=== PATIENT | male | born 1950 | race Caucasian/White ===

== ENCOUNTER → 2016-04-29 | Outpatient (CLI) | payer OTHER, MEDICARE ==
[~2016-04-29] MED LIST: ACET500C12 PO; ASCO10003 PO; ASCO500T16 PO; ASPEC325 PO; ATOR-26 PO; BRIM0.2S OPB; CALC1TAB27 PO; CEPH500C2 PO; CHOL1000 PO; CLC150 PO; DORZ2SOL OPB; DVN80 PO; FRS/40 PO; LATA0.5S OP; NVLNI SC; NVLRPUC SQ; OMEP20CA9 PO; OXYC-57 PO; ROPI1TAB PO; ROSU40TA PO; SULF800T23 PO; [UNRECOGNIZED DRUG - CODE] OPB
[2016-04-29 18:30] LABS: HEMATOCRIT 40.7 % (42-52); MEAN CELL VOLUME 91.3 fL (80-100); MEAN CORPUSCULAR HEMOGLOBIN 32.1 pg (25-34); MEAN CORPUSCULAR HGB CONC 35.1 g/dl (32-36); PLATELET COUNT 180 K/uL (130-400); RED BLOOD COUNT 4.46 M/uL (4.7-6.1); WHITE BLOOD COUNT 6.85 K/uL (4.8-10.8)
[2016-04-29 18:47] LABS: BASO % 0.6 %; BASO ABS # 0.04 K/uL (0-0.2); COMPLETE YES; EOS % 1.9 %; IG% 0.3 %; LYMPH ABS # 1.37 K/uL (1.2-3.4); MONO % 7.9 %; NEUT % 69.3 %
[2016-04-29 18:48] LABS: URINE APPEARANCE CLEAR (CLEAR); URINE BILIRUBIN NEG (NEG); URINE COLOR YELLOW; URINE NITRITE NEG (NEG); URINE PH 6.5 (4.5-7.5); URINE SPECIFIC GRAVITY 1.015 (1.000-1.030); UROBILINOGEN NEG (NEG)
[2016-04-29 18:52] LABS: MANUAL MICROSCOPIC REQUIRED? NO; REVIEW REQ? NO
[2016-04-29 18:53] LABS: BLOOD UREA NITROGEN 23 mg/dl (7-18); BUN/CREATININE RATIO 20.5 (10-20); CARBON DIOXIDE 22 mmol/L (21-32); CHLORIDE 114 mmol/L (98-107); GLUCOSE 77 mg/dl (70-99); POTASSIUM 3.9 mmol/L (3.5-5.1); SODIUM 145 mmol/L (136-145)
--- NOTE | 2016-04-29 21:42 | DIAGNOSTIC IMAGING REPORT ---
CHEST 2 VIEWS ROUTINE CLINICAL HISTORY: Preoperative evaluation. COMPARISON STUDY: Chest radiograph March 24, 2016. FINDINGS: Median sternotomy wires are noted. Moderate cardiomegaly is unchanged. There is no evidence of pulmonary edema. No consolidation is present. There is no pneumothorax or pleural effusion. Mild S-shaped scoliosis is noted. IMPRESSION: 1. No acute cardiopulmonary findings. 2. Stable cardiomegaly. Electronically signed by: Camilo Block M.D. 04/29/2016 9:40 PM Dictated Date/Time: 04/29/2016 9:39 PM
== END | disposition home or self-care (01) ==
LOC: C.LAB 16:16
PROVIDERS: ATTEND Orthopaedic Surgery Orthopaedic Surgery of the Spine
DX: Z01.812 Encounter for preprocedural laboratory examination (principal); I51.7 Cardiomegaly

== ENCOUNTER → 2016-05-04 | Outpatient (CLI) | payer OTHER, MEDICARE ==
--- NOTE | 2016-05-04 09:37 | DIAGNOSTIC IMAGING REPORT ---
MRI OF THE LUMBAR SPINE WITHOUT CONTRAST CLINICAL HISTORY: Lumbar spine pain radiating into both lower extremities. COMPARISON STUDY: Lumbar spine CT April 20, 2013 and and MRI of the lumbar spine January 30, 2009. TECHNIQUE: Utilizing a 1.5 Destiney magnet and dedicated coil, multiplanar, multiecho imaging of the lumbar spine was performed without IV contrast. FINDINGS: For purposes of numbering on this exam, the L5-S1 disc space is assigned to axial image 23 of 26. Alignment of lumbar spine is anatomic. Vertebral body heights are maintained. There is no marrow replacement. The conus terminates at the upper L1 level. No intracanalicular mass or fluid collection is present. Paravertebral soft tissues are unremarkable. Postsurgical findings suggestive of a left hemilaminectomy at the L4-L5 level are noted. The disc fragment at the L3 level shown on exam of January 30, 2009 is no longer identified and has likely been resected. Post surgical findings at this level are noted. L1-2: There is minimal disc bulge and facet arthrosis. The central canal and neural foramen are patent. L2-3: There is mild disc bulge, ligamentous hypertrophy and facet arthrosis. There is minimal narrowing of the central canal and lateral recesses as well as the neural foramen. L3-4: There is disc bulge with ligamentous hypertrophy and facet arthrosis. There is mild narrowing of the central canal, lateral recesses and neural foramen which is similar to prior MRI. L4-5: Note is made of marked disc space narrowing. There is disc bulge with facet arthrosis. There is no residual central canal stenosis. Moderate to severe narrowing of the right neural foramen is noted in moderate narrowing of the left neural foramen is present. This is similar to prior MRI of January 30, 2009. L5-S1: The central canal and neural foramen are patent. IMPRESSION: 1. Status post left hemilaminectomy at L4-L5 and resection of disc fragment at the L3 level shown on prior MRI. No residual disc fragment. 2. Otherwise, no significant change in appearance of the lumbar spine. Mild multilevel central canal stenosis with moderate to severe right neural foraminal stenosis at L4-L5. 3. No compression fracture. Electronically signed by: Camilo Block M.D. 05/04/2016 9:35 AM Dictated Date/Time: 05/04/2016 9:28 AM
== END | disposition home or self-care (01) ==
LOC: C.MRI 08:28
PROVIDERS: ATTEND Orthopaedic Surgery Orthopaedic Surgery of the Spine
DX: M48.06 Spinal stenosis, lumbar region (principal); Z98.890 Other specified postprocedural states

== ENCOUNTER → 2016-05-06 | Outpatient (CLI) | payer OTHER, MEDICARE ==
[2016-05-06 13:47] LABS: HEMATOCRIT 39.8 % (42-52); MEAN CELL VOLUME 92.1 fL (80-100); MEAN CORPUSCULAR HEMOGLOBIN 32.2 pg (25-34); MEAN CORPUSCULAR HGB CONC 34.9 g/dl (32-36); MEAN PLATELET VOLUME 12.9 fL (7.4-10.4); PLATELET COUNT 181 K/uL (130-400); RED BLOOD COUNT 4.32 M/uL (4.7-6.1); WHITE BLOOD COUNT 7.58 K/uL (4.8-10.8)
[2016-05-06 14:12] LABS: BASO % 0.5 %; BASO ABS # 0.04 K/uL (0-0.2); COMPLETE YES; EOS % 1.3 %; IG% 0.1 %; LYMPH % 15.3 %; LYMPH ABS # 1.16 K/uL (1.2-3.4); MONO % 8.6 %; NEUT % 74.2 %
[2016-05-06 14:19] LABS: ALT/SGPT 32 U/L (12-78); AST/SGOT 15 U/L (15-37); BLOOD UREA NITROGEN 20 mg/dl (7-18); BUN/CREATININE RATIO 16.9 (10-20); CALCIUM 8.4 mg/dl (8.5-10.1); CARBON DIOXIDE 19 mmol/L (21-32); CHLORIDE 110 mmol/L (98-107); GLUCOSE 139 mg/dl (70-99); POTASSIUM 4.1 mmol/L (3.5-5.1); SODIUM 142 mmol/L (136-145)
[2016-05-06 14:24] LABS: ALKALINE PHOSPHATASE 122 U/L (45-117); CHOLESTEROL 126 mg/dl (0-200); CHOLESTEROL/HDL RATIO 3.7; HDL CHOLESTEROL 34 mg/dl; LDL CHOLESTEROL CALCULATED 66 mg/dl; TRIGLYCERIDES 132 mg/dl (0-150); VERY LOW DENSITY LIPOPROT CALC 26 mg/dl
[2016-05-06 14:43] LABS: ESTIMATED AVERAGE GLUCOSE 174 mg/dl; HA1C FLAG Normal (Normal)
== END | disposition home or self-care (01) ==
LOC: C.LAB 12:17
PROVIDERS: ATTEND Nurse Practitioner Adult Health
DX: I10 Essential (primary) hypertension (principal); Z13.220 Encounter for screening for lipoid disorders; E10.9 Type 1 diabetes mellitus without complications; G25.81 Restless legs syndrome

== ENCOUNTER 2016-05-21 09:20 | Inpatient (IN) | payer OTHER, MEDICARE ==
[2016-05-07 14:45] VITALS: BMI 34.0
[~2016-05-21] VITALS: Ht 177.8 cm; Wt 109.3 kg
[2016-05-21] VITALS (7 sets, daily range): BP systolic 122–165; BP diastolic 67–80; PULSE 51–61; TEMP 36.4–36.5; O2SAT 94–99; BMI 34.0
[~2016-05-21 09:20] MED LIST changes: -ASCO10003 PO; -ATOR-26 PO; -CALC1TAB27 PO; +CEFAZOLIN 2000 MG/60 ML D5W IV SCH; -CEPH500C2 PO; -CLC150 PO; +CeleBREX 200 MG CAP PO SCH; +LACTATED RINGER'S 1000ML 1,000 ML IV SCH; -LATA0.5S OP; -OXYC-57 PO; +PREGABALIN 75 MG CAP PO SCH; -SULF800T23 PO
[2016-05-21] MEDS ORDERED: ROCURONIUM BROMIDE 10 MG/ML 5 ML VIAL ONE (10:57)
[2016-05-21] MEDS ORDERED: GLYCOPYRROLATE INJ 0.2 MG/ML VIAL ONE (10:57)
[2016-05-21] MEDS ORDERED: ONDANSETRON INJ 2 MG/ML 2 ML VIAL ONE (10:57)
[2016-05-21] MEDS ORDERED: DEXAMETHASONE SOD INJ 4 MG/ML VIAL ONE (10:57)
[2016-05-21] MEDS ORDERED: FENTANYL CITRATE INJ 50 MCG/1 ML 2 ML VIAL ONE (10:57)
[2016-05-21] MEDS ORDERED: NEOSTIGMINE METHYLSULFATE 1 MG/ML 10ML VIAL ONE (10:57)
[2016-05-21] MEDS ORDERED: MIDAZOLAM HCL 1 MG/ML 2ML VIAL ONE (10:57)
[2016-05-21] MEDS ORDERED: PROPOFOL IV EMULSION 10 MG/ML 20 ML VIAL IV ONE (10:57)
[2016-05-21] MEDS ORDERED: LIDOCAINE HCL 2% 2 ML VIAL (20MG/ML) ONE (10:57)
--- NOTE | 2016-05-21 12:23 | History and Physical ---
History & Physical Date May 21, 2016. Chief Complaint LBP and bilateral leg pain History of Present Illness The patient is a 65 year old male with complaints of above for years who failed to have relief with PT or ESIs. Hx of lumbar decompression L3-5. Limited ability to walk or stand for long periods of time. Hx of BKA. no incont. MRI and xrays demonstrate scoliosis, disc space collapse, and recurrent stenosis. Past Medical/Surgical History Medical Problems: (1) CKD (chronic kidney disease) stage 3, GFR 30-59 ml/min (2) Diabetes mellitus type 2 in obese (3) Diabetic polyneuropathy (4) Diastolic heart failure (5) GERD (gastroesophageal reflux disease) (6) Heart disease(LVH, CABG 2011, LVEF 50-55%) (7) History of TIA (transient ischemic attack) (8) Hyperlipidemia Nec/Nos (9) Hypertension Nos (10) Impotence, organic (11) Infected hardware in left lower extremity (12) Mild obstructive sleep apnea (13) 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 (14) Restless leg syndrome Surgical Problems: (1) History of lumbar discectomy (2) History of tonsillectomy (3) S/P CABG (coronary artery bypass graft) Additional History Hepatic Disease: No Endocrine Disorder: No Kidney Disease: Yes Hypertension: Yes Heart Disease: Yes Bleeding Tendencies: No Infectious Diseases: No Allergies Coded Allergies: Quinolones (Verified Allergy, Mild, ITCHINESS, 05/21/16) Home Medications Scheduled Acetazolamide (Acetazolamide Er), 1 TAB PO BID Ascorbic Acid (Ascorbic Acid), 500 MG PO QAM Aspirin (Aspirin), 1 TAB PO QAM Brimonidine Tartrate-Timolol M (Combigan), 1 DROP OPB BID Cholecalciferol (Vitamin D3), 1,000 INTER.UNIT PO QAM Dorzolamide Hcl (Trusopt), 1 DROP OPB BID Furosemide (Lasix), 40 MG PO QAM Insulin Human NPH (Novolin N), 30 SC QPM Insulin Human NPH (Novolin N), 20 SC QAM Insulin Human Regular (Novolin R), 20 SQ TID Omeprazole (Prilosec), 20 MG PO QAM Ropinirole (Requip), 3 MG PO HS Rosuvastatin Calcium (Crestor), 40 MG PO HS Travoprost (Travoprost), 1 DROP OPB HS Valsartan (Diovan), 80 MG PO QAM Physical Examination Skin: warm/dry Eyes: normal inspection ENT: normal ENT inspection Head: normocephalic, atraumatic Neck: supple, trachea midline Respiratory/Chest: lungs clear, no respiratory distress Cardiovascular: regular rate, rhythm Back: normal inspection Extremities: normal inspection (L BKA), normal range of motion Neurologic/Psych: alert, normal reflexes, oriented x 3 Addiitonal Comments: stocking like numbness in LE's Diagnosis Lumbar scoliosis, recurrent spinal stenosis, and radicular pain Plan of Treatment revision decompression L3-5, PSF L2-5, deemed low to intermediate cardiac risk by cards.
[2016-05-21] MEDS ORDERED: BUPIVACAINE/EPINEPHRINE 0.5% MPF 1:200,000 30 ML VIAL ONE (12:30)
[2016-05-21] MEDS ORDERED: HEPARIN SOD (PORCINE) 1000 UNIT/ML 10 ML VIAL ONE (12:30)
[2016-05-21] MEDS ORDERED: THROMBIN FOR SOLN 20000 UNIT KIT ONE ×2 (12:30→13:34)
[2016-05-21] MEDS ORDERED: BACITRACIN 50000 UNIT VIAL ONE (12:30)
[2016-05-21] MEDS ORDERED: THROMBIN 5000 UNITS KIT ONE (12:30)
[2016-05-21] MEDS ORDERED: EpHEDrine SULFATE 50MG/5ML SYR ONE (12:39)
[2016-05-21] MEDS ORDERED: HYDROmorphone INJ 2 MG/ML SYR/VIAL ONE (13:28)
[2016-05-21] MEDS ORDERED: VANCOMYCIN INJ 1,000 MG in SODIUM CHLORIDE 0.9% 250ML 250 ML IV SCH (13:30)
[2016-05-21] MEDS ORDERED: ATROPINE SULFATE 0.1 MG/ML 5ML SYR IV PRN (13:45)
[2016-05-21] MEDS ORDERED: HYDROmorphone INJ 2 MG/ML SYR/VIAL IV PRN (13:45)
[2016-05-21] MEDS ORDERED: ONDANSETRON INJ 2 MG/ML 2 ML VIAL IV PRN ×2 (13:45→15:30)
[2016-05-21] MEDS ORDERED: LABETALOL HCL IV 5 MG/ML 20ML IV PRN (13:45)
[2016-05-21] MEDS ORDERED: SURGICEL ABSORB HEMOSTAT 2IN X 14IN TOP ONE (13:51)
[2016-05-21] MEDS ORDERED: SODIUM CHLORIDE 0.9% 1000ML 1,000 ML IV SCH ×2 (15:22→17:12)
--- NOTE | 2016-05-21 15:22 | [facility] Post Operative Brief Note ---
Immediate Operative Summary Operative Date May 21, 2016. Pre-Operative Diagnosis Lumbar scoliosis, recurrent spinal stenosis, and radicular pain Post-Operative Diagnosis Lumbar scoliosis, recurrent spinal stenosis, and radicular pain Procedure(s) Performed Same as preop Surgeon Dr. Gibson Turbine Technician Surgeon(s) Nasim Gomez PA-C Estimated Blood Loss 350cc Findings dict Specimens None per Surgeon
--- NOTE | 2016-05-21 15:23 | DIAGNOSTIC IMAGING REPORT ---
Lumbar spine LUMBAR SPINE 2 OR 3 VIEW CLINICAL HISTORY: L2-5 DECOMPRESSION/FUSION/INTERBODY TECHNIQUE: Image intensifier COMPARISON STUDY: None FINDINGS: Lumbar spine images of 4 intraoperative assistance during a lumbar laminectomy and fusion IMPRESSION: Lumbar laminectomy and fusion Electronically signed by: Anselmo Lawson M.D. 05/21/2016 3:22 PM Dictated Date/Time: 05/21/2016 3:21 PM
[2016-05-21] MEDS ORDERED: FLOSEAL HEMOSTATIC MATRIX 10ML TOP ONE (15:28)
[2016-05-21] MEDS ORDERED: LORAZEPAM 0.5 MG TAB PO PRN (15:30)
[2016-05-21] MEDS ORDERED: ALUMINUM/MAGNESIUM SUSP 30 ML UDC PO PRN (15:30)
[2016-05-21] MEDS ORDERED: BISACODYL 10 MG SUPP PR PRN (15:30)
[2016-05-21] MEDS ORDERED: LORAZEPAM INJ 0.5 MG in SYRINGE 0.75 ML IV PRN (15:30)
[2016-05-21] MEDS ORDERED: MAGNESIUM HYDROXIDE SUSP 30 ML UDC PO PRN (15:30)
[2016-05-21] MEDS ORDERED: FAMOTIDINE 20 MG TAB PO PRN (15:30)
[2016-05-21] MEDS ORDERED: NALOXONE HCL 0.4 MG/1 ML VIAL/CARP IV PRN (15:30)
[2016-05-21] MEDS ORDERED: ACETAMINOPHEN 500 MG TAB PO PRN (15:30)
[2016-05-21] MEDS ORDERED: SOD PHOSPHATE/SOD BIPHOSPHATE ENEMA 132 ML BTL PR PRN (15:30)
[2016-05-21] MEDS ORDERED: hydrOXYzine HCL 25 MG TAB PO PRN (15:30)
[2016-05-21] MEDS ORDERED: PROMETHAZINE HCL INJ 12.5 MG in SODIUM CHLORIDE 0.9% 50ML 50 ML IV PRN (15:30)
[2016-05-21] MEDS ORDERED: ACETAMINOPHEN IV 100 ML IV PRN (15:30)
[2016-05-21] MEDS ORDERED: METOCLOPRAMIDE HCL INJ 5 MG/ML 2 ML VIAL IV PRN (15:30)
[2016-05-21] MEDS ORDERED: OXYC-57 PO (15:35)
--- NOTE | 2016-05-21 15:36 | Discharge Instructions ---
Discharge Instructions Admission Reason for Admission: Lumbar Spinal Stenosis Discharge Discharge Diagnosis / Problem: Lumbar Stenosis Discharge Goals Goal(s): Decrease discomfort, Improve function, Increase independence Activity Recommendations Activity Limitations: as noted below Lifting Limitations: no more than 5 pounds Exercise/Sports Limitations: until after follow-up appointment May Resume Sexual Activity: after follow-up appointment Shower/Bathe: may shower/bathe in 3 days . Instructions / Follow-Up Instructions / Follow-Up ACTIVITY RECOMMENDATIONS: SELF CARE INSTRUCTIONS AFTER THORACIC/LUMBAR FUSIONS 1. You may walk to your tolerance. It is good exercise for your legs and back. Expect some back and intermittent leg aches and pains. 2. You may perform "counter-top" level activities (make a sandwich, shea with a project, etc.). 3. No bending or lifting of more than 10 pounds or back twisting of any nature (roll like a log when turning in bed). 4. You may ride in a car for 20-30 minutes at a time. No driving until after your first visit with your doctor. 5. Frequent changes of position and restricting sitting to 30 minutes at a time will help limit the amount of back spasms and stiffness you may experience. 6. You may discontinue the use of ambulatory aids (cane, crutches, etc.) once your strength and confidence allow. 7. You may skin drier the shower and let water strike your incision when you arrive home at least once daily. Do not take a tub bath, sit in a hot tub or go into a swimming pool until after your first recheck in the office. SPECIAL CARE INSTRUCTIONS: VERY IMPORTANT TO READ AND REVIEW A. Your surgical incision has been closed with a cosmetic suture under the skin that will dissolve in about 6 weeks. In 14 days, you can use a pair of clean scissors and cut the suture that is left outside of the skin at the ends of your incision. 1. The small skin tapes can be removed 7 days after surgery if they have not fallen off by that point. 2. You may keep the wound open to air as much as possible to promote healing after post-op day number 5 unless told otherwise by your doctor. 3. If you think the wound looks like it is becoming infected (redness or worsening drainage) and/or you are experiencing fever, chill or worsening back pain and muscle spasms, contact the office so that we may evaluate you as soon as possible. B. Complications are uncommon, but please contact us if you have any signs or symptoms of: 1. wound infection (fever higher than 102.5 degrees F, redness, separation of wound, drainage, or increasing pain from the incision) 2. blood clots in legs (pain, swelling, redness and warmth in legs) 3. urinary tract infection (fever higher than 102.5 degrees F, burning upon urination or increased frequency of urination) 4. nerve problems (inability to walk on your toes or heels, numbness, loss of bowel or bladder control) 5. any other symptoms that concern you C. Please call the office at if you have any concerns or questions about your operation or recovery. D. No smoking! Smoking drastically decreases the chance of a solid fusion. E. Do not take any anti-inflammatory medications (Indocin, Advil, Motrin, Aspirin, Naprosyn, etc.) as these may inhibit the chance of a solid fusion. Tylenol is okay to take for pain. MANAGING PAIN AFTER SPINAL SURGERY 1. Narcotic medication is intended for short-term use and will be provided for surgical pain. Surgical pain usually lasts for a period of 4-6 weeks. Narcotic medication includes Percocet, Vicodin, Darvocet, Tylenol #3 or Lortab. 2. Longer-term pain is more appropriately treated with non-narcotic medication such as Tylenol ES. 3. Muscle spasm is not appropriately treated with narcotics. Muscle relaxers such as Soma, Flexeril or Skelaxin can be used along with Tylenol ES. 4. Remember that we all live with some "aches and pains". This is not unusual or uncommon after an injury or as we get older. a. Back pain is expected and may include muscle spasms for 4 to 6 weeks after surgery. The pain should gradually improve. If the pain worsens for no apparent reason, please contact the office. b. Intermittent leg pain may also be experienced and should not be concerned about unless it worsens for no apparent reason. If so, please contact the office. 5. We will provide appropriate medication within the normal guidelines of their prescribed use. We will also be very cautious and aware of potential abuse and extended duration of patients' medication needs. a. Pain medications are for your comfort and to assist with sleep and rest so that the tissue can heal. They are not provided in order to return to normal activity and should not be used through the day. To do so or worsening pain at night can result from ongoing tissue damage and development of tolerance to the prescribed medicine. 6. Please allow 2-3 days to process refills. Prescriptions will not be mailed but must be picked up at the office. FOLLOW UP VISIT: Keep your scheduled follow-up appointment. Any questions, please call the office at . Current Hospital Diet Patient's current hospital diet: Discharge Diet Recommended Diet: Regular Diet Procedures Procedures Performed: Same as preop Pending Studies Studies pending at discharge: no Laboratory Results Hemoglobin A1c Test 05/06/16 12:20 Range/Units Estimated Average Glucose 174 mg/dl Hemoglobin A1c 7.7 H 4.5-5.6 % Lipid Panel Test 05/06/16 12:20 Range/Units Triglycerides Level 132 0-150 mg/dl Cholesterol Level 126 0-200 mg/dl HDL Cholesterol 34 mg/dl Cholesterol/HDL Ratio 3.7 LDL Cholesterol, Calculated 66 mg/dl Medical Emergencies . Who to Call and When: Medical Emergencies: If at any time you feel your situation is an emergency, please call 911 immediately. . Non-Emergent Contact Non-Emergency issues call your: Surgeon Call Non-Emergent contact if: temperature is above 101, your pain is not controlled, your pain is worsening, your pain is unusual for you, your pain is concerning you, wound has increased drainage, wound has increased redness, wound has increased pain, you have any medication questions . "Provider Documentation" section prepared by Wade Gomez. VTE Core Measure Inpt VTE Proph given/why not?: Aron Zhang
[2016-05-21] MEDS ORDERED: HYDROmorphone HCL 0.5MG/ML 50 ML CASSETTE ONE (15:51)
[2016-05-21] MEDS: HYDROmorphone HCL 0.5MG/ML 50 ML CASSETTE IV PRN ×2 (16:34→22:52)
--- NOTE | 2016-05-21 17:01 | OPERATIVE REPORT ---
DATE OF OPERATION: 05/21/2016 PREOPERATIVE DIAGNOSES: 1. Previous laminectomies at L3-L4 and L4-L5. 2. Lumbar disc degeneration, L2-L3, L3-L4, and L4-L5. 3. Lumbar degenerative scoliosis and multilevel facet arthrosis. POSTOPERATIVE DIAGNOSES: Same. PROCEDURES: 1. Revision laminectomy at L3 and L4 with right L3-L4 and L4-L5 facetectomies. 2. Segmental pedicle screw instrumentation -- bilateral L2, L3, left L4, and bilateral L5 with K2M Deshler pedicle screws. 3. Posterolateral fusion L2-L5 -- bilateral with Infuse BMP on a collagen sponge, tricalcium phosphate, local bone, bone putty and bone marrow aspirate. 4. Right iliac crest bone marrow aspiration, stem cell concentration with Arteriocyte system and application of bone graft. SURGEON: Dr. Gibson. EXERCISE SCIENTIST: Wade Gomez PA-C. Please note he participated in all portions of procedure and was critical for performance of the procedure, participated with positioning, prepping, draping, retraction, and wound closure. ANESTHESIA: General endotracheal anesthesia. COMPLICATIONS: None. ESTIMATED BLOOD LOSS: 350 mL. PROCEDURE IN DETAIL: After identification of patient and operative level, he was brought to the OR where he underwent induction of general anesthesia. He was then positioned prone on Joey OR table. All bony prominences were well padded. Care was taken to avoid pressure on the periorbital area. Lumbosacral area was sterilely prepped and draped in usual fashion. Antibiotics were administered. Time-out was performed. Level was confirmed and skin incision was infiltrated with Marcaine. I made skin incision from spinous process of L1-L5, exposed the posterior elements out to the tip of the transverse processes, placed Gelpi retractors and confirmed level with fluoroscopy. I marked the operative levels and identified the previous laminectomy beds and epidural adhesions. I did revision laminectomies of L3 and L4, I removed the facets on the right at L3-L4 and L4-L5 to facilitate foraminal decompression. I palpated the nerve roots that were decompressed at L3, L4, and L5 and then applied FloSeal for hemostasis. I then placed pedicle screws bilaterally at L3, L4, and L5 but only placing 1 on the left at L4. I checked position of screws with fluoroscopy and then lowered the Eyad frame to restore lordosis, applied rods and end caps for final tightening and a cross link which was final tightened. I irrigated with bacitracin solution. I had taken iliac crest bone marrow from the right iliac crest via separate stab incision with a Jamshidi needle, concentrated with Arterioctye, applied the bone graft indirect sales representative. I then packed the lateral gutters with bone graft mixture from L2-L5 bilaterally after decortication of the transverse processes and facets with a high speed bur from L2-L5. I then closed in layered fashion over LUIS drain. All sponge and needle counts were correct at the end of the case. I attest to the content of the Intraoperative Record and any orders documented therein. Any exceptio ns are noted below.
[2016-05-21] MEDS ORDERED: HYDROmorphone INJ 1 MG/ML SYR IV PRN (17:15)
--- NOTE | 2016-05-21 17:26 | Anesthesiology Progress Note ---
Anesthesia Post Op Note Date & Time May 21, 2016 at 17:25 Vital Signs Pain Intensity: 2 Vital Signs Past 12 Hours Date Time Temp Pulse Resp B/P Pulse Ox O2 Delivery O2 Flow Rate FiO2 05/21/16 16:15 59 16 153/72 94 Nasal Cannula 4 05/21/16 16:05 61 16 155/78 94 Nasal Cannula 4 05/21/16 15:55 72 16 168/81 100 Mask 10 05/21/16 15:43 36.4 61 16 180/81 100 Mask 10 05/21/16 10:06 36.5 51 20 147/69 99 Room Air Notes Mental Status: alert / awake / arousable, participated in evaluation Pt Amnestic to Procedure: Yes Nausea / Vomiting: adequately controlled Pain: adequately controlled Airway Patency, RR, SpO2: stable & adequate BP & HR: stable & adequate Hydration State: stable & adequate Anesthetic Complications: no major complications apparent
--- NOTE | 2016-05-21 19:10 | CONSULTATION REPORT ---
DATE OF CONSULTATION: 05/21/2016 DATE OF CONSULTATION: 05/21/2016. CHIEF COMPLAINT: Lower back pain and bilateral leg pain. We were consulted for medical management. HISTORY OF PRESENT ILLNESS: This is a 65-year-old male complains of lower back pain and bilateral leg pain for many years and failed outpatient conservative management. He had a history of lumbar decompression L3-L5, limited ability to walk and stand for long periods of times. MRI and x-rays demonstrated scoliosis and disc space collapse and recurrent stenosis. He was admitted for revision decompression of L3 through L5. Currently, he denies any complaints. REVIEW OF SYSTEMS: Negative except as above. Ten out of 14 systems were reviewed. PAST MEDICAL HISTORY: Significant for CKD stage III, diabetes mellitus type 2 on insulin, diabetic polyneuropathy, diastolic heart failure, GERD, heart disease LVH, CABG January 2012 quadruple bypass, left ventricular ejection fraction of 50-55%, history of TIA, hyperlipidemia, hypertension, impotence, infected hardware in the left lower extremity, mild obstructive sleep apnea, proliferative retinopathy due to diabetes, restless leg syndrome, history of lumbar discectomy, history of tonsillectomy, status post CABG. ALLERGIES: HE IS ALLERGIC TO QUINOLONES. SOCIAL HISTORY: Does not smoke, does not drink, does not use drugs. FAMILY HISTORY: Significant for coronary artery disease and cancer. HOME MEDICATIONS: Acetazolamide 1 tablet p.o. b.i.d., ascorbic acid 500 mg p.o. daily, aspirin 1 tablet p.o. daily, Combigan 1 drop ophthalmological b.i.d., cholecalciferol 1000 international units p.o. daily, dorzolamide 1 drop ophthalmological b.i.d., furosemide 40 mg p.o. daily, insulin NPH 20 units in the morning and 30 units at night, insulin regular Novolin 20 units subcutaneously t.i.d., omeprazole 20 mg p.o. daily, ropinirole 3 mg p.o. at bedtime, rosuvastatin 40 mg p.o. at bedtime, travoprost 1 drop ophthalmological at bedtime, valsartan 80 mg p.o. daily. PHYSICAL EXAMINATION: VITAL SIGNS: Temperature 36.6, pulse 59, respirations 16, blood pressure 153/72, 94% on 4 liters nasal cannula. GENERAL: Not in acute distress. HEAD, EYES, EARS, NOSE, AND THROAT: Normocephalic, atraumatic. PERRLA, EOMI. Mouth moist, no lesions. NECK: No JVD. Trachea midline. Thyroid is not enlarged. LUNGS: Clear to auscultation bilateral. No wheezes, no rhonchi. HEART: S1, S2. RRR. CHEST: There is a midline scar present in front. BACK: No CVA tenderness. EXTREMITIES: No clubbing, cyanosis or edema except for left BKA. Normal range of motion otherwise. NEUROLOGICAL: Alert, oriented x3. Motor sensory normal. LABORATORY DATA: He had a sugar done today, POC glucose 123-124, otherwise no labs. Lumbar spine x-ray showed lumbar laminectomy and fusion. ASSESSMENT AND PLAN: This is a 65-year-old gentleman with a past medical history of type 2 diabetes, CKD, coronary artery disease, status post CABG, hypertension, hyperlipidemia and TIA who was admitted for a revision decompression L3-L5. 1. Uncontrolled type 2 diabetes on insulin, start patient on insulin Glargine while he is here 20 units twice a day and provide with insulin sliding scale. His recent hemoglobin A1c was done and it was 7.7. We will start patient on sliding scale insulin aspart with goal range between 100-180 with correctional factor of 30 and carb ratio of 12. His CBC and BMP was ordered by orthopedic surgeon for tomorrow morning. 2. History of chronic kidney disease stage III, diastolic heart failure, coronary artery disease LVH, status post CABG in 2011. Ejection fraction 50-55%, TIA, hypertension, hyperlipidemia, moderate obstructive sleep apnea, restless legs syndrome. Continue acetazolamide 500 mg p.o. b.i.d., ascorbic acid 500 mg daily, aspirin 325 mg p.o. daily, furosemide 40 mg p.o. daily, hydroxyzine 25 mg p.o. q. 8 hours p.r.n. anxiety, pantoprazole 40 mg p.o. daily. 3. Neuropathy, Requip 3 mg p.o. at bedtime, Crestor 40 mg p.o. at bedtime, travoprost/Travatan Z 1 drop ophthalmological at bedtime, valsartan 80 mg p.o. daily. 4. Status post L3-L5 revision decompression. DVT prophylaxis, PT, OT evaluation and pain management as per spinal orthopedic surgeon. THE PATIENT IS A FULL CODE. Time spent doing this consult 35 minutes. Thank you for consulting our group. COURTNEY
[2016-05-21] MEDS: CEFAZOLIN IV 2,000 MG in DEXTROSE 5% 50ML 50 ML IV SCH (19:57)
[2016-05-21] MEDS: INSULIN ASPART 100 UNITS/ML 3 ML PEN SC SCH (20:45)
[2016-05-21] MEDS: INSULIN GLARGINE SOLOSTAR 100 UNITS/ML 3 ML PEN SC SCH (20:46)
[2016-05-21] MEDS: ROPINIROLE HCL 1 MG TAB PO SCH (20:47)
[2016-05-21] MEDS: ROSUVASTATIN CALCIUM 20 MG TAB PO SCH (20:47)
[2016-05-21] MEDS: DOCUSATE SODIUM/SENNA 50/8.6MG TAB PO SCH (20:48)
[2016-05-21] MEDS: TRAVOPROST Z 0.004% OPH SOLN 2.5 ML BTL OPB SCH (20:48)
[2016-05-21] MEDS: AcetaZOLAMIDE 500 MG CAPCR PO SCH (20:48)
[2016-05-22 03:39] VITALS: BP 161/71; PULSE 60; TEMP 36.6; O2SAT 99
[2016-05-22] MEDS: CEFAZOLIN IV 2,000 MG in DEXTROSE 5% 50ML 50 ML IV SCH (04:15)
[2016-05-22] MEDS ORDERED: NURSING VERBAL MED ORDER ONE (04:30)
[2016-05-22] MEDS ORDERED: HYDROmorphone INJ 1 MG/ML SYR IV PRN (06:00)
[2016-05-22] MEDS ORDERED: DC PCA ONE (06:00)
[2016-05-22] MEDS ORDERED: NALOXONE HCL 0.4 MG/1 ML VIAL/CARP IV PRN (06:01)
[2016-05-22 06:31] LABS: HEMATOCRIT 34.7 % (42-52); MEAN CELL VOLUME 92.3 fL (80-100); MEAN CORPUSCULAR HEMOGLOBIN 31.6 pg (25-34); MEAN CORPUSCULAR HGB CONC 34.3 g/dl (32-36); MEAN PLATELET VOLUME 12.9 fL (7.4-10.4); PLATELET COUNT 142 K/uL (130-400); RED BLOOD COUNT 3.76 M/uL (4.7-6.1); WHITE BLOOD COUNT 8.33 K/uL (4.8-10.8)
[2016-05-22 07:00] LABS: BASO % 0.4 %; BASO ABS # 0.03 K/uL (0-0.2); COMPLETE YES; EOS % 0.8 %; IG% 0.1 %; LYMPH % 6.7 %; LYMPH ABS # 0.56 K/uL (1.2-3.4); MONO % 9.4 %; NEUT % 82.6 %
[2016-05-22 07:04] LABS: BUN/CREATININE RATIO 17.7 (10-20); CREATININE 1.1 mg/dl (0.60-1.40); POTASSIUM 4.6 mmol/L (3.5-5.1)
[2016-05-22 07:14] VITALS: BP 148/64; PULSE 64; TEMP 36.8; O2SAT 98
[2016-05-22] MEDS ORDERED: COUGH DROP (SUGAR FREE) LOZ 24 LOZ/1 BOX ONE (07:21)
[2016-05-22] MEDS: OXYCODONE HCL IR 5 MG TAB (IMMEDIATE RELEASE) PO PRN ×3 (07:25→22:33)
--- NOTE | 2016-05-22 08:08 | Orthopedic Progress Note ---
Orthopedic Progress Note Date of Service May 22, 2016. Subjective Post OP Day: 1 Reports: feeling well, pain controlled w PO medications, Denies: SOB, calf pain , chest pain, complaints, light headedness, nausea / vomiting Additional Notes: Doing very well, sitting bedside, right buttock pain resolved. Medically stable. Objective Date Time Temp Pulse Resp B/P Pulse Ox O2 Delivery O2 Flow Rate FiO2 05/22/16 07:14 36.8 64 16 148/64 98 Room Air 05/22/16 03:39 36.6 60 18 161/71 99 05/21/16 23:53 36.4 58 18 165/80 99 Room Air 05/21/16 23:40 Room Air 05/21/16 20:00 Room Air 05/21/16 19:37 36.4 61 18 122/72 98 Room Air 05/21/16 18:35 36.4 61 18 134/73 95 Room Air 05/21/16 17:35 36.4 53 18 142/67 94 Room Air 05/21/16 17:05 36.4 57 18 155/68 94 Room Air 05/21/16 16:35 95 Nasal Cannula 2.0 05/21/16 16:35 36.4 59 17 159/78 95 Nasal Cannula 2.0 05/21/16 16:35 95 Nasal Cannula 2.0 05/21/16 16:15 59 16 153/72 94 Nasal Cannula 4 05/21/16 16:05 61 16 155/78 94 Nasal Cannula 4 05/21/16 15:55 72 16 168/81 100 Mask 10 05/21/16 15:43 36.4 61 16 180/81 100 Mask 10 05/21/16 10:06 36.5 51 20 147/69 99 Room Air Laboratory Results 24 Hours: Test 05/22/16 05:47 White Blood Count 8.33 K/uL Red Blood Count 3.76 M/uL Hemoglobin 11.9 g/dL Hematocrit 34.7 % Mean Corpuscular Volume 92.3 fL Mean Corpuscular Hemoglobin 31.6 pg Mean Corpuscular Hemoglobin Concent 34.3 g/dl Platelet Count 142 K/uL Mean Platelet Volume 12.9 fL Neutrophils (%) (Auto) 82.6 % Lymphocytes (%) (Auto) 6.7 % Monocytes (%) (Auto) 9.4 % Eosinophils (%) (Auto) 0.8 % Basophils (%) (Auto) 0.4 % Neutrophils # (Auto) 6.88 K/uL Lymphocytes # (Auto) 0.56 K/uL Monocytes # (Auto) 0.78 K/uL Eosinophils # (Auto) 0.07 K/uL Basophils # (Auto) 0.03 K/uL Assessment & Plan Assessment: s/p revision decompression and fusion Plan: Pain control in place and effective, PT today, LUIS in place and functioning, DVT/ GI prophylaxis, Disposition pending.
--- NOTE | 2016-05-22 09:10 | Clinical Documentation Query ---
AMADO Rowland : CLINICAL DOCUMENTATION QUERY Patient is a 65 year old male who underwent revision laminectomy at L3 and L4, L2-L5 posterolateral fusion with instrumentation and grafting. H&P, preoperative and postoperative notes mention degenerative lumbar scoliosis. If appropriate, please explicitly state whether or not this was corrected with the performed procedures and/or required extra time due to intrinsic difficulties. This directly impacts DRG assignment. Thank you. In your clinical opinion is this patient being managed for: ( ) Revision laminectomy, posterolateral fusion of L2-L5, correcting/and or complicated by scoliosis ( ) Other explanation of clinical findings (Please Explain) ( ) Unable to determine (Please Define) ( ) Need to Discuss ( ) Not Agree The medical record reflects the following clinical findings, treatment, and risk factors. Clinical Indicators: As above Treatment: As above Risk Factors: n/a Please clarify and document your clinical opinion in the progress notes and discharge summary. Terms such as "probable", "suspected", "likely", "questionable", "possible", or "still to be ruled out" are acceptable. IF IN AGREEMENT, YOU MUST DOCUMENT ABOVE DIAGNOSTIC STATEMENT IN DAILY PROGRESS NOTES AND DISCHARGE SUMMARY. This document is not part of the patient's record. Thank You, Junior Ayoub, RN [phone]
[2016-05-22] MEDS: CHOLECALCIFEROL 1000 INTER.UNIT TAB PO SCH (09:26)
[2016-05-22] MEDS: FUROSEMIDE 40 MG TAB PO SCH (09:26)
[2016-05-22] MEDS: ASCORBIC ACID 500 MG TAB PO SCH (09:26)
[2016-05-22] MEDS: PANTOprazole SOD 40 MG TAB PO SCH (09:26)
[2016-05-22] MEDS: AcetaZOLAMIDE 500 MG CAPCR PO SCH ×2 (09:26→21:09)
[2016-05-22] MEDS: ASPIRIN 325 MG ECTAB PO SCH (09:26)
[2016-05-22] MEDS: VALSARTAN 80 MG TAB PO SCH (09:27)
[2016-05-22] MEDS: INSULIN GLARGINE SOLOSTAR 100 UNITS/ML 3 ML PEN SC SCH ×2 (09:29→21:05)
[2016-05-22] MEDS: INSULIN ASPART 100 UNITS/ML 3 ML PEN SC SCH ×4 (09:29→21:06)
[2016-05-22 12:16] VITALS: BP 138/73; PULSE 68; TEMP 36.6; O2SAT 98
[2016-05-22 14:41] VITALS: Ht 177.8 cm; Wt 109.3 kg
[2016-05-22] MEDS ORDERED: POLYETHYLENE (MIRALAX) 17 GM PACK PO ONE (15:30)
[2016-05-22 16:13] VITALS: BP 137/65; PULSE 72; TEMP 36.8; O2SAT 97
[2016-05-22 20:11] VITALS: BP 168/73; PULSE 74; TEMP 36.8; O2SAT 99
--- NOTE | 2016-05-22 20:16 | Progress Note ---
Subjective Date of Service: May 22, 2016. Subjective Pt evaluation today including: conversation w/ patient, physical exam, chart review, lab review Pain: back - mild PO Intake: normal Voiding: no voiding problems patient with mild abdominal bloating but denies nausea or emesis minimal flatus and no bowel movement since the surgery he requests something for constipation denies sob, orthopnea, chest pain states he is on N & R insulin due to not being able to afford new insulins ( lantus, novolog, etc) Problem List Medical Problems: (1) Altered mental status Status: Acute (2) Cellulitis Status: Acute (3) Orthostasis Status: Acute (4) Postoperative wound infection Status: Acute (5) Syncope Status: Acute Review of Systems Constitutional: No chills, No fever Respiratory: No cough, No dyspnea on exertion, No shortness of breath Cardiac: No PND, No chest pain, No orthopnea Abdomen: No pain Objective Vital Signs Date Time Temp Pulse Resp B/P Pulse Ox O2 Delivery O2 Flow Rate FiO2 05/22/16 19:30 Room Air 05/22/16 16:13 36.8 72 18 137/65 97 Room Air 05/22/16 12:16 36.6 68 16 138/73 98 Room Air 05/22/16 08:23 Room Air 05/22/16 07:14 36.8 64 16 148/64 98 Room Air 05/22/16 03:39 36.6 60 18 161/71 99 05/21/16 23:53 36.4 58 18 165/80 99 Room Air 05/21/16 23:40 Room Air Physical Exam General Appearance: no apparent distress ENT: pharynx normal Neck: no JVD Respiratory/Chest: lungs clear, no respiratory distress, no accessory muscle use Cardiovascular: regular rate, rhythm, no gallop, + systolic murmur (2/6 LUSB) Abdomen: normal bowel sounds, non tender, no organomegaly, + distended ( minimal ) Extremities: no pedal edema Neurologic/Psychiatric: alert, oriented x 3 Skin: + pertinent finding (dressings intact lumbar spine area ) Laboratory Results Last 24 Hours Test 05/21/16 20:39 05/22/16 05:47 05/22/16 07:50 05/22/16 12:09 Bedside Glucose 213 mg/dl 221 mg/dl 306 mg/dl White Blood Count 8.33 K/uL Red Blood Count 3.76 M/uL Hemoglobin 11.9 g/dL Hematocrit 34.7 % Mean Corpuscular Volume 92.3 fL Mean Corpuscular Hemoglobin 31.6 pg Mean Corpuscular Hemoglobin Concent 34.3 g/dl Platelet Count 142 K/uL Mean Platelet Volume 12.9 fL Neutrophils (%) (Auto) 82.6 % Lymphocytes (%) (Auto) 6.7 % Monocytes (%) (Auto) 9.4 % Eosinophils (%) (Auto) 0.8 % Basophils (%) (Auto) 0.4 % Neutrophils # (Auto) 6.88 K/uL Lymphocytes # (Auto) 0.56 K/uL Monocytes # (Auto) 0.78 K/uL Eosinophils # (Auto) 0.07 K/uL Basophils # (Auto) 0.03 K/uL RDW Standard Deviation 45.6 fL RDW Coefficient of Variation 13.6 % Immature Granulocyte % (Auto) 0.1 % Immature Granulocyte # (Auto) 0.01 K/uL Sodium Level 141 mmol/L Potassium Level 4.6 mmol/L Chloride Level 111 mmol/L Carbon Dioxide Level 23 mmol/L Anion Gap 7.0 mmol/L Blood Urea Nitrogen 19 mg/dl Creatinine 1.10 mg/dl Est Creatinine Clear Calc Drug Dose 80.7 ml/min Estimated GFR () 80.1 Estimated GFR (Non- 69.1 BUN/Creatinine Ratio 17.7 Random Glucose 231 mg/dl Calcium Level 8.0 mg/dl Test 05/22/16 17:08 Bedside Glucose 261 mg/dl Assessment and Plan 65yo male with: 1. uncontrolled T2DM - 2nd to stress of surgery, steroids given on 05/21, etc. Increase lantus to 25 units BID. Adjust correction factor & carb ration on novolog. 2. constipation - need to follow carefully for ileus. Add miralax. Agree with stimulant laxative as well. 3. chronic diastolic CHF - compensated; cont ARB, lasix. Not on BB - unsure why. 4. CKD stage 3 - creatinine stable. 5. CAD s/p CABG in the past - no ischemic symptoms at this time. Cont asa, statin, etc. 6. h/o TIA - noted. Aspirin has already been resumed for secondary prevention. 7. GERD - PPI. 8. RLS - cont requip. 9. mild thrombocytopenia - repeat level am. will follow Continued [facility] stay due to: other (hyperglycemia)
[2016-05-22] MEDS: ROPINIROLE HCL 1 MG TAB PO SCH (21:08)
[2016-05-22] MEDS: DOCUSATE SODIUM/SENNA 50/8.6MG TAB PO SCH (21:09)
[2016-05-22] MEDS: ROSUVASTATIN CALCIUM 20 MG TAB PO SCH (21:10)
[2016-05-22] MEDS: TRAVOPROST Z 0.004% OPH SOLN 2.5 ML BTL OPB SCH (21:10)
[2016-05-22 23:45] VITALS: BP 136/68; PULSE 78; TEMP 37.1; O2SAT 99
[2016-05-23] MEDS: OXYCODONE HCL IR 5 MG TAB (IMMEDIATE RELEASE) PO PRN ×2 (03:24→13:42)
[2016-05-23] MEDS: POLYETHYLENE (MIRALAX) 17 GM PACK PO SCH ×2 (05:19→12:42)
[2016-05-23 06:04] LABS: HEMATOCRIT 31.4 % (42-52); MEAN CELL VOLUME 92.1 fL (80-100); MEAN CORPUSCULAR HEMOGLOBIN 31.7 pg (25-34); MEAN CORPUSCULAR HGB CONC 34.4 g/dl (32-36); MEAN PLATELET VOLUME 12.7 fL (7.4-10.4); PLATELET COUNT 174 K/uL (130-400); RED BLOOD COUNT 3.41 M/uL (4.7-6.1); WHITE BLOOD COUNT 9.45 K/uL (4.8-10.8)
[2016-05-23 06:53] LABS: BUN/CREATININE RATIO 19.3 (10-20); CALCIUM 8.3 mg/dl (8.5-10.1); CREATININE 1.4 mg/dl (0.60-1.40); POTASSIUM 3.8 mmol/L (3.5-5.1)
[2016-05-23 07:05] VITALS: O2SAT 99
[2016-05-23 08:21] VITALS: BP 138/75; PULSE 64; TEMP 37.1; O2SAT 97
[2016-05-23] MEDS: ASPIRIN 325 MG ECTAB PO SCH (08:43)
[2016-05-23] MEDS: AcetaZOLAMIDE 500 MG CAPCR PO SCH (08:43)
[2016-05-23] MEDS: FUROSEMIDE 40 MG TAB PO SCH (08:43)
[2016-05-23] MEDS: CHOLECALCIFEROL 1000 INTER.UNIT TAB PO SCH (08:43)
[2016-05-23] MEDS: ASCORBIC ACID 500 MG TAB PO SCH (08:43)
[2016-05-23] MEDS: VALSARTAN 80 MG TAB PO SCH (08:43)
[2016-05-23] MEDS: PANTOprazole SOD 40 MG TAB PO SCH (08:44)
[2016-05-23] MEDS: INSULIN GLARGINE SOLOSTAR 100 UNITS/ML 3 ML PEN SC SCH (08:51)
[2016-05-23] MEDS: INSULIN ASPART 100 UNITS/ML 3 ML PEN SC SCH ×2 (08:51→12:48)
--- NOTE | 2016-05-23 09:54 | PROGRESS NOTE ---
DATE: 05/23/2016 HISTORY OF PRESENT ILLNESS: Mr. Em is a very pleasant 65-year-old white male with longstanding hypertension, dyslipidemia, diabetes mellitus with multiple complications, cerebral vascular disease, PAD status post left BKA Easter 2015, severe concentric LVH with diastolic CHF, and CAD status post CABG x4 vessels 2011 (ZURITA to LAD, SVG to PDA, and sequential SVG from OM to diagonal), who underwent redo lumbar spinal decompression and fusion with Dr. Gibson on 05/21/2016. The patient was given an injection of corticosteroids that same day and subsequently his blood sugars have become uncontrolled. The patient is otherwise doing well. His surgical pain is well controlled. He denies any chest pain, heaviness, tightness, pressure or angina pectoris. He denies any neck, jaw, back or arm pain. He has not had any shortness of breath, unusual dyspnea on exertion, orthopnea or PND. No palpitations, syncope or near syncope. The patient has been up and ambulating in the hallways and has had significant reduction in his radicular pain. He has not experienced any limiting cardiopulmonary symptoms with exertion in the hallways. I saw the patient preoperative cardiac evaluation on 05/15/2016. We did an echocardiogram that day which showed an LVEF of 50-55%, moderate concentric LVH, mild MR, trace to mild TR. PHYSICAL EXAMINATION: VITAL SIGNS: Temperature is 37.1 degrees Celsius, pulse 64 and regular, respiratory rate 12 and unlabored, blood pressure is 138/75, SpO2 is 97% on room air. GENERAL: The patient is in no acute distress. HEENT: Head is atraumatic, normocephalic. EOMs intact. Sclerae are anicteric. Facies symmetric. No perioral cyanosis. Mucous membranes moist. NECK: Without thyromegaly, adenopathy or JVD. Jugular venous pressure is to the level of the clavicle sitting upright. CHEST AND LUNGS: Clear to auscultation throughout all lung sterling. No wheezes, rales or rhonchi. CARDIOVASCULAR: S1 and S2 are regular with a grade 1/6 systolic murmur at the left sternal border. No diastolic murmurs. No gallops or rubs. PMI is nondisplaced. No lifts, heaves or thrills. No abdominal, aortic or renal bruits. ABDOMEN: Bowel sounds present. No masses, organomegaly or tenderness. EXTREMITIES: No clubbing, cyanosis or edema. Left leg is surgically absent, left leg prosthesis is in place. Intact radial pulses bilaterally. NEUROLOGIC: The patient is awake, alert and oriented. Pleasant and cooperative. Answers questions appropriately. Speech is clear. Normal movement in bilateral upper extremities. LABORATORIES: White blood cell count is 9.45. Hemoglobin 10.8 g/dL, hematocrit 31.4%, platelet count 174,000. Sodium is 139 mmol/L, potassium is 3.8 mmol/L, BUN 27 mg/dL, creatinine 1.40 mg/dL. Random glucose is 267 mg/dL. ASSESSMENT: 1. Postoperative day #2 lumbar spinal redo decompression and fusion. 2. Type 2 diabetes mellitus with multiple diabetic complications. 3. Blood sugars currently not controlled. Likely exacerbated by recent corticosteroid injection. 4. Coronary artery disease, status post coronary artery bypass graft x4 vessels 2011. 5. Normal LVEF 50-55%. 6. Moderate concentric left ventricular hypertrophy with diastolic dysfunction. 7. Chronic kidney disease. 8. Gastroesophageal reflux disease. 9. History of transient ischemic attack. 10. Mild obstructive sleep apnea. 11. Hypertension. 12. Dyslipidemia. PLAN: 1. The patient continues to recover from his surgery. Overall, he is doing quite well. 2. Increase Lantus insulin to 30 units subcutaneous injection b.i.d. 3. Increase NovoLog sliding scale. Target range 120-160 mg/dL with correction factor of 20 mg/dL per unit. Continue carbohydrate ratio as is. 4. Continue Aspirin daily. 5. Continue high-dose statin medication. 6. Continue Diovan 80 mg each morning. 7. Continue Lasix 40 mg daily. 8. Continue Protonix for prophylactic GI protection. 9. Continue to monitor daily laboratories and close monitoring of blood sugars. 10. Once the patient is medically stable, he will be discharged to home with outpatient physical therapy. 11. We will continue to follow along while hospitalized. COURTNEY
[2016-05-23 10:21] VITALS: BP 116/58; PULSE 62
--- NOTE | 2016-05-23 11:13 | Orthopedic Progress Note ---
Orthopedic Progress Note Date of Service May 23, 2016. Subjective Post OP Day: 2 Reports: feeling well, pain controlled w PO medications, Denies: SOB, calf pain , chest pain, complaints, light headedness, nausea / vomiting, using PERIODONTIST Objective N/V intact, dressing C/D/I, A&O x3, hemovac drainage Date Time Temp Pulse Resp B/P Pulse Ox O2 Delivery O2 Flow Rate FiO2 05/23/16 08:21 37.1 64 12 138/75 97 Room Air 05/23/16 07:05 99 Room Air 05/22/16 23:45 37.1 78 16 136/68 99 Room Air 05/22/16 20:11 36.8 74 16 168/73 99 Room Air 05/22/16 19:30 Room Air 05/22/16 16:13 36.8 72 18 137/65 97 Room Air 05/22/16 12:16 36.6 68 16 138/73 98 Room Air Laboratory Results 24 Hours: Test 05/23/16 05:23 Hematocrit 31.4 % Hemoglobin 10.8 g/dL Assessment & Plan Assessment: s/p revision decompression and fusion Plan: Pain control in place and effective, LUIS in place and functioning, d/c tomorrow?
[2016-05-23 11:29] VITALS: BP 138/75; PULSE 64; TEMP 37.1; O2SAT 97
[2016-05-23 11:35] VITALS: O2SAT 97
[2016-05-23 12:40] VITALS: BP 123/69; PULSE 62; TEMP 36.7; O2SAT 96
[2016-05-23] MEDS ORDERED: INSULIN GLARGINE SOLOSTAR 100 UNITS/ML 3 ML PEN SC SCH (21:00)
--- NOTE | 2016-06-04 13:46 | DISCHARGE SUMMARY ---
PRINCIPAL DIAGNOSIS: Included previous laminectomies of L3-L4, L4-L5, disc degeneration L2-L3, L3-L4 and L4-L5, degenerative scoliosis and facet arthrosis. POSTOPERATIVE DIAGNOSIS: Same. PROCEDURE: Revision laminectomy of L3-L4 with right L3-L4 and L4-L5 facetectomies, pedicle screw instrumentations L2, L3, L4, L5, posterolateral fusion L2-5, right iliac crest bone marrow aspiration and stem cell concentration. SURGEON: Dr. Ned Gibson. CROP ROLLER: Wade Gomez PA-C. HOSPITAL COURSE: On 05/21/2016 Mr. Em was admitted to [facility] with the above diagnosis. He was taken to preoperative holding where he was identified and evaluated and cleared for surgical management. He was transported to the operating room, introduced with general endotracheal anesthesia, sterile conditions were set and he successfully underwent the above procedure without complication or issue. He was awakened in stable and satisfactory condition and transported to postoperative recovery where vital signs and pain were monitored and managed. The patient remained medically stable with no issues or postoperative complications. He was then transported to the orthopedic floor for continued care. Throughout his admission, his vital signs and pain were monitored and managed through physician direction. He participated in physical therapy with good noted progress. DVT and GI prophylactic measures were taken. To note there were no complications or postoperative issues. He was evaluated on the morning of 05/23/2016 and indicated for return home. On this date he was discharged from [facility]. DISPOSITION: Home. DISPOSITION CONDITION: Stable. NOTED COMPLICATIONS OR ISSUES: Zero. DISCHARGE INSTRUCTIONS: Please refer to EMR.
[2016-09-11] MEDS ORDERED: ASCO10003 PO (11:28)
[2016-09-11] MEDS ORDERED: CALC1TAB27 PO (11:28)
[2016-10-09] MEDS ORDERED: CEPH500C2 PO (13:30)
== END 2016-05-23 15:15 | disposition home health service (06) | DRG 460 ==
LOC: ENRESERVTM → ENRESERVDT → C.ACU 09:20 → C.3E 12:00 → UNDOADMIN 15:26
PROVIDERS: ADMIT Orthopaedic Surgery Orthopaedic Surgery of the Spine; ATTEND Orthopaedic Surgery Orthopaedic Surgery of the Spine
PROC: 01NB0ZZ Release Lumbar Nerve, Open Approach (ICD-10-PCS; principal; 2016-05-21 11:00)
PROC: 07DR3ZZ Extraction of Iliac Bone Marrow, Percutaneous Approach (ICD-10-PCS; principal; 2016-05-21 11:00)
PROC: 3E0U0GB Introduction of Recombinant Bone Morphogenetic Protein into Joints, Open Approach (ICD-10-PCS; principal; 2016-05-21 11:00)
PROC: 0SG10Z1 (ICD-10-PCS; principal; 2016-05-21 11:00)
DX: M51.16 Intervertebral disc disorders with radiculopathy, lumbar region (principal); I13.0 Hypertensive heart and chronic kidney disease with heart failure and stage 1 through stage 4 chronic kidney disease, or unspecified chronic kidney disease; I50.32 Chronic diastolic (congestive) heart failure; M48.06 Spinal stenosis, lumbar region; M47.26 Other spondylosis with radiculopathy, lumbar region; M41.9 Scoliosis, unspecified; E11.65 Type 2 diabetes mellitus with hyperglycemia; T38.0X5A Adverse effect of glucocorticoids and synthetic analogues, initial encounter; E11.22 Type 2 diabetes mellitus with diabetic chronic kidney disease; E11.42 Type 2 diabetes mellitus with diabetic polyneuropathy; E11.3599 Type 2 diabetes mellitus with proliferative diabetic retinopathy without macular edema, unspecified eye; N18.3 Chronic kidney disease, stage 3 (moderate); I25.10 Atherosclerotic heart disease of native coronary artery without angina pectoris; E78.5 Hyperlipidemia, unspecified; K21.9 Gastro-esophageal reflux disease without esophagitis; G25.81 Restless legs syndrome; K59.00 Constipation, unspecified; N52.9 Male erectile dysfunction, unspecified; Z86.73 Personal history of transient ischemic attack (TIA), and cerebral infarction without residual deficits; Z95.1 Presence of aortocoronary bypass graft; Z79.82 Long term (current) use of aspirin; Z79.4 Long term (current) use of insulin; Z79.899 Other long term (current) drug therapy; Z88.1 Allergy status to other antibiotic agents; Z82.49 Family history of ischemic heart disease and other diseases of the circulatory system

== ENCOUNTER 2016-05-25 21:37 | Inpatient (IN) | payer OTHER, MEDICARE ==
[~2016-05-25] VITALS: Ht 177.8 cm; Wt 110.5 kg
[~2016-05-25 21:37] MED LIST changes: -CEFAZOLIN 2000 MG/60 ML D5W IV SCH; -CeleBREX 200 MG CAP PO SCH; -LACTATED RINGER'S 1000ML 1,000 ML IV SCH; +OXYC-57 PO; -PREGABALIN 75 MG CAP PO SCH
[2016-05-25] MEDS ORDERED: ATOR-26 PO (22:11)
[2016-05-25] MEDS ORDERED: LATA0.5S OP (22:12)
[2016-05-25] MEDS ORDERED: SULF800T23 PO (22:16)
[2016-05-25] MEDS ORDERED: HYDROmorphone INJ 1 MG/ML SYR IV STA (22:52)
--- NOTE | 2016-05-25 23:02 | EMERGENCY ROOM VISIT NOTE ---
History Report prepared by Natalie: Venkat Patel Under the Supervision of: Dr. Sandra Olmos M.D. First contact with patient: 22:42 Chief Complaint: BACK PAIN Stated Complaint: BACK PAIN History of Present Illness The patient is a 65 year old male who presents to the Emergency Room with complaints of worsening back pain starting prior to arrival. The patient states that he had a spinal fusion four days ago, and he states that he is still in pain. The patient states that he is currently taking oxycodone, and he states that he is currently constipated. Source of History: patient Onset: prior to arrival Position: back Timing: worsening Note: Associated Symptoms: Constipation Review of Systems See HPI for pertinent positives & negatives. A total of 10 systems reviewed and were otherwise negative. Past Medical & Surgical Medical Problems: (1) CKD (chronic kidney disease) stage 3, GFR 30-59 ml/min (2) DDD (degenerative disc disease), lumbar (3) Diabetes mellitus type 2 in obese (4) Diabetic polyneuropathy (5) Diastolic heart failure (6) GERD (gastroesophageal reflux disease) (7) Heart disease (8) History of TIA (transient ischemic attack) (9) Hyperlipidemia Nec/Nos (10) Hypertension Nos (11) Impotence, organic (12) Infected hardware in left lower extremity (13) Mild obstructive sleep apnea (14) 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 (15) Restless leg syndrome Surgical Problems: (1) History of lumbar discectomy (2) History of tonsillectomy (3) S/P CABG (coronary artery bypass graft) Family History Cancer Diabetes mellitus FH: heart disease Social History Smoking Status: Never Smoker Alcohol Use: none Drug Use: none Marital Status: Housing Status: lives with family Occupation Status: retired Current/Historical Medications Scheduled Acetazolamide (Acetazolamide Er), 1 TAB PO BID Ascorbic Acid (Ascorbic Acid), 1,000 MG PO QAM Aspirin (Aspirin), 1 TAB PO QAM Atorvastatin (Lipitor), 80 MG PO DAILY Brimonidine Tartrate-Timolol M (Combigan), 1 DROP OPB BID Cholecalciferol (Vitamin D3), 2,000 INTER.UNIT PO QAM Dorzolamide Hcl (Trusopt), 1 DROP OPB BID Furosemide (Lasix), 40 MG PO QAM Insulin Human NPH (Novolin N), 30 SC QPM Insulin Human NPH (Novolin N), 20 SC QAM Insulin Human Regular (Novolin R), 20 SQ QID Latanoprost (Xalatan 0.005% Oph Elysia), 1 DROPS OP HS Omeprazole (Prilosec), 20 MG PO QAM Ropinirole (Requip), 3 MG PO HS Sulfa/Trimethoprim (Bactrim Ds 800MG/160MG), 1 TAB PO BID Valsartan (Diovan), 80 MG PO QAM Scheduled PRN Oxycodone/Acetaminophen 5MG/325MG (Percocet 5MG/325MG), 1-2 TABLETS PO Q4H PRN for Pain Allergies Coded Allergies: Quinolones (Verified Allergy, Mild, ITCHINESS, 05/25/16) Physical Exam Vital Signs Date Time Temp Pulse Resp B/P Pulse Ox O2 Delivery O2 Flow Rate FiO2 05/25/16 21:38 37.0 64 18 149/58 100 Room Air Physical Exam CONSTITUTIONAL: Moderate to severe painful distress HEENT: No icterus, moist mucous membranes NECK: No meningismus, trachea is midline. CARDIOVASCULAR: Regular rate, normal perfusion RESPIRATORY: Unlabored breathing. Clear to auscultation. GASTROINTESTINAL: Non-tender GENITOURINARY: No flank tenderness BACK: Wound glenn present with minimal erythema. Not unanticipated post- operatively. MUSCULOSKELETAL: Full range of motion NEUROLOGIC: No acute gross focal deficits. PSYCHIATRIC: Normal affect SKIN: Normal for ethnicity. Medical Decision & Procedures Laboratory Results Test 05/25/16 22:52 Labs reviewed by ED physician. ED Course 224: Past medical records reviewed. The patient was evaluated in room A2. A complete history and physical examination was performed. 2248: I discussed the patient's case with Dr. Gibson, Orthopedic Surgery. He is going to evaluate the patient for further treatment 2252: Dilaudid Inj 2mg IV Medical Decision Differential diagnoses include but are not limited to; Post-operative pain. 65-year-old postop day 4 lumbar fusion doctor Trung reports intractable pain not resolved with Percocet 5/325 2 pills every 4 hours. Review of systems negative for infectious complaints. Constipation noted in context of opiate use postoperatively. Case discussed with orthopedics upon patient's presentation given that was 11 PM at night , agreed to admit patient for analgesic relief. Consults Time Called: 2244 Consulting Physician: Dr. Gibson, Orthopedic surgery Returned Call: [phone] I discussed the patient's case with Dr. Gibson, Orthopedic Surgery. He is going to evaluate the patient for further treatment Impression Primary Impression: Post-operative pain Scribe Attestation The scribe's documentation has been prepared under my direction and personally reviewed by me in its entirety. I confirm that the note above accurately reflects all work, treatment, procedures, and medical decision making performed by me. Departure Information Dispostion Being Evaluated By Hospitalist Referrals Laila Dubois C.R.N.P. (PCP)
[2016-05-25] MEDS ORDERED: NURSING VERBAL MED ORDER ONE (23:15)
[2016-05-25 23:26] LABS: HEMATOCRIT 31.3 % (42-52); MEAN CELL VOLUME 91.3 fL (80-100); MEAN CORPUSCULAR HEMOGLOBIN 33.2 pg (25-34); MEAN CORPUSCULAR HGB CONC 36.4 g/dl (32-36); MEAN PLATELET VOLUME 12.4 fL (7.4-10.4); PLATELET COUNT 191 K/uL (130-400); RED BLOOD COUNT 3.43 M/uL (4.7-6.1); WHITE BLOOD COUNT 7.68 K/uL (4.8-10.8)
[2016-05-25 23:45] VITALS: BP 137/69; PULSE 66; TEMP 36.7; O2SAT 94; Ht 177.8 cm; Wt 110.5 kg
[2016-05-25 23:49] LABS: BUN/CREATININE RATIO 21.3 (10-20); CALCIUM 8.5 mg/dl (8.5-10.1); CREATININE 1.2 mg/dl (0.60-1.40); POTASSIUM 3.5 mmol/L (3.5-5.1)
[2016-05-25 23:51] LABS: ALB/GLOB RATIO 0.7 (0.9-2)
[2016-05-26 00:14] LABS: COMPLETE YES; ECHINOCYTES 1+; EOSINOPHIL % 1.8 %; LYMPH ABS # 0.81 K/uL (1.2-3.4); LYMPHOCYTE % 10.6 %; NEUTROPHILS % 80.5 %; TEAR DROP CELLS 1+
[2016-05-26] MEDS ORDERED: NALOXONE HCL 0.4 MG/1 ML VIAL/CARP IV PRN ×2 (00:15→10:00)
[2016-05-26] MEDS ORDERED: SODIUM CHLORIDE 0.9% 1000ML 1,000 ML IV SCH ×2 (00:15→08:30)
[2016-05-26] MEDS ORDERED: IV FLUIDS COMPLETED PRN (00:15)
[2016-05-26] MEDS ORDERED: MORPHINE SULFATE 1 MG/ML 50 ML PCA SYR IV PRN (00:15)
--- NOTE | 2016-05-26 00:55 | Progress Note ---
Progress Note Hospital service was phoned for consult on behalf of Dr. Nino for diabetes management in this patient. I arrived at the bedside at approximately 0030. The patient was fast asleep at that time. He is noted to be hemodynamically stable and as such, I did not feel like he needed to be awoken for full history and examination. Subjective: Per EMR, patient is status post spinal fusion 4 days prior. He presents today due to intractable back pain postoperatively as well as constipation. Patient was fast asleep. Her night nurse patient was comfortable when he went to sleep. Vital signs have been stable. He has not been in any acute distress prior to going to bed. Patient has history of type 2 diabetes. Questionable A1c was done on 2016 and was 7.7. His current medication list shows that he takes Novolin and 20 units every morning and 30 units at night. He also takes regular insulin 20 units 4 times daily. Objective: Vital signs reviewed in the EMR. All are within normal limits. Date Time Temp Pulse Resp B/P Pulse Ox O2 Delivery O2 Flow Rate FiO2 05/25/16 23:45 36.7 66 18 137/69 Room Air 05/25/16 23:45 36.7 66 18 137/69 94 Room Air 05/25/16 23:16 65 18 118/53 95 Room Air 05/25/16 21:38 37.0 64 18 149/58 100 Room Air Labs 24 Hours Test 05/25/16 23:00 05/26/16 00:05 White Blood Count 7.68 K/uL Red Blood Count 3.43 M/uL Hemoglobin 11.4 g/dL Hematocrit 31.3 % Mean Corpuscular Volume 91.3 fL Mean Corpuscular Hemoglobin 33.2 pg Mean Corpuscular Hemoglobin Concent 36.4 g/dl Platelet Count 191 K/uL Mean Platelet Volume 12.4 fL RDW Standard Deviation 44.5 fL RDW Coefficient of Variation 13.3 % Neutrophils % (Manual) 80.5 % Lymphocytes % (Manual) 10.6 % Monocytes % (Manual) 7.1 % Eosinophils % (Manual) 1.8 % Neutrophils # (Manual) 6.18 K/uL Total Absolute Neutrophils 6.18 K/uL Lymphocytes # (Manual) 0.81 K/uL Total Absolute Lymphocytes 0.81 K/uL Monocytes # (Manual) 0.55 K/uL Eosinophils # (Manual) 0.14 K/uL Tear Drop Cells 1+ Echinocytes 1+ Sodium Level 142 mmol/L Potassium Level 3.5 mmol/L Chloride Level 111 mmol/L Carbon Dioxide Level 18 mmol/L Anion Gap 13.0 mmol/L Blood Urea Nitrogen 26 mg/dl Creatinine 1.20 mg/dl Est Creatinine Clear Calc Drug Dose 74.4 ml/min Estimated GFR () 72.1 Estimated GFR (Non- 62.2 BUN/Creatinine Ratio 21.3 Random Glucose 169 mg/dl Calcium Level 8.5 mg/dl Total Bilirubin 0.2 mg/dl Aspartate Amino Transf (AST/SGOT) 23 U/L Alanine Aminotransferase (ALT/SGPT) 23 U/L Alkaline Phosphatase 106 U/L Total Protein 6.3 gm/dl Albumin 2.5 gm/dl Globulin 3.8 gm/dl Albumin/Globulin Ratio 0.7 Assessment: 65-year-old male history of uncontrolled type 2 diabetes, admitted for back pain management. Plan: - Repeat hemoglobin A1c not necessary at this time as most recent measurement is fairly current. - Hold all home medications for now - We'll put him on a sliding scale with the following parameters: Goal range: 140-180 Correction factor: 30 Carb ratio: 10 - to be ordered per primary team Diet should be a type II diabetic diet - Patient may be able to transition quickly to home regimen but will defer this to daytime team taking over the consult. Patient to be handed off to the day team when a full history can be obtained at that time. (Dylan Trujillo MD) Pt seen examined independently following resident eval Medical service is consulted following lumbar fusion for DM management pt is somnolent due to pain meds had apparently complained of constipation on admission P: Sliding scale initiated and will insure bowel reg is in place Med service will following pending D/C (Sarmad Green MD)
[2016-05-26] MEDS ORDERED: GLUCAGON FOR INJ 1 MG VIAL SQ PRN (01:15)
[2016-05-26] MEDS ORDERED: GLUCOSE 10 TABS/TUBE PO PRN (01:15)
[2016-05-26] MEDS ORDERED: GLUCOSE 40% GEL 15 GM TUBE PO PRN (01:15)
[2016-05-26] MEDS ORDERED: DEXTROSE 50% 50 ML SYR IV PRN (01:15)
[2016-05-26 02:53] VITALS: BP 145/62; PULSE 57; TEMP 36.9; O2SAT 98
[2016-05-26 07:19] VITALS: BP 149/68; PULSE 56; TEMP 36.8; O2SAT 98
[2016-05-26] MEDS ORDERED: BISACODYL 5 MG TABEC PO PRN (08:30)
[2016-05-26] MEDS ORDERED: MAGNESIUM HYDROXIDE SUSP 30 ML UDC PO PRN (08:30)
--- NOTE | 2016-05-26 08:49 | Medical Consult ---
Consultation Date of Consultation: May 26, 2016. Attending Physician: Ned Gibson M.D. Reason for Consultation: Medical management History of Present Illness Patient is a pleasant 65 y/o male, with PMHx of CKD stage III, T2DM, polyneuropathy, diastolic HF, GERD, CABG, TIA, hyperlipidemia, HTN, JEREMIE, restless leg syndrome, s/p spinal fusion by Dr. Gibson, who presented to the ED on 05/25 because of significant back pain and constipation. Patient was discharged on 05/23. Per patient, he had a small bowel movement on 05/23 prior to discharge. He has been passing small amounts of gas. He admits to abdominal discomfort. He has been eating and drinking very little since not having routine bowel movement. Patient also complains of significant back pain and bilateral lower extremity pain- on BOTTLE DEALER Morphine pump per ortho. Patient is having little relief with pain. Patient denies any fever, chills, sweats, lightheadedness, dizziness, vision changes, CP, palpitations, edema, SOB, wheezing, cough, nausea, vomiting, diarrhea, urinary symptoms, melena, numbness/ tingling, weakness, muscle/joint pain, anxiety/depression, active bleeding, or new skin discoloration/changes. Past Medical/Surgical History Medical Problems: 1. CKD, stage III 2. T2DM 3. Polyneuropathy 4. Diastolic HF 5. GERD 6. CABG, quadruple bypass 7. TIA 8. Hyperlipidemia 9. HTN 10. JEREMIE 11. Restless leg syndrome Family History Cancer Diabetes mellitus FH: heart disease Social History Smoking Status: Never Smoker Drug Use: none Marital Status: Housing Status: lives with family Occupation Status: retired Allergies Coded Allergies: Quinolones (Verified Allergy, Mild, ITCHINESS, 05/25/16) Home Medications Reported Home Medications Medications Dose Route/Sig Max Daily Dose Days Date Category Bactrim Ds 800MG/160MG (Trimethoprim/Sulfamethoxazole) Tab 1 Tab PO BID 05/25/16 Reported Xalatan 0.005% Oph Elysia (Latanoprost) 0.005 % Elysia 1 Drops OP HS 05/25/16 Reported Lipitor (Atorvastatin Calcium) 80 Mg Tab 80 Mg PO DAILY 05/25/16 Reported Percocet 5MG/325MG (Oxycodone/Acetaminophen) Tab 1-2 Tablets PO Q4H PRN 05/21/16 Rx Aspirin 325 Mg Ectab 1 Tab PO QAM 05/07/16 Reported Diovan (Valsartan) 80 Mg Tab 80 Mg PO QAM 04/07/16 Reported Acetazolamide Er (Acetazolamide) 500 Mg Cap 1 Tab PO BID 04/06/16 Reported Requip (Ropinirole HCl) 1 Mg Tab 3 Mg PO HS 03/24/16 Reported Novolin N (Insulin Human NPH) 100 Units/Ml Susp 20 SC QAM 03/24/16 Reported Novolin N (Insulin Human NPH) 100 Units/Ml Susp 30 SC QPM 03/24/16 Reported Novolin R (Insulin Human Regular) 100 Units/1 Ml Inj 20 SQ QID 03/24/16 Reported Lasix (Furosemide) 40 Mg Tab 40 Mg PO QAM 03/24/16 Reported Trusopt (Dorzolamide Hcl) 2 % Elysia 1 Drop OPB BID 02/06/15 Reported Combigan (Brimonidine Tartrate-Timolol M) 1 Elysia Elysia 1 Drop OPB BID 02/06/15 Reported Vitamin D3 (Cholecalciferol) 1,000 Unit Tab 2,000 Inter.unit PO QAM 09/05/14 Reported Prilosec (Omeprazole) 20 Mg Cap 20 Mg PO QAM 09/05/14 Reported Ascorbic Acid 500 Mg Tab 1,000 Mg PO QAM 09/05/14 Reported Current Inpatient Medications Current Inpatient Medications Medications (Trade) Dose Ordered Sig/Phuc Route Start Time Stop Time Status Last Admin Dose Admin Naloxone HCl (Narcan Inj) 0.1 mg Q5M PRN IV 05/26/16 00:15 06/09/16 00:14 Morphine Sulfate 50 mg 50 mg PRN PRN IV 05/26/16 00:15 06/09/16 00:14 05/26/16 07:07 50 MG Sodium Chloride (Nss 1000ml) 1,000 ml @ 15 mls/hr Q24H IV 05/26/16 00:15 06/25/16 00:14 05/26/16 00:15 15 MLS/HR Miscellaneous (Iv Fluids Completed) 1 ea PRN PRN N/A 05/26/16 00:15 05/26/17 00:14 Insulin Aspart (novoLOG ASPART) SLIDING SCALE G... ACHS SC 05/26/16 08:00 06/25/16 07:59 Glucose (Glucose 40% Gel) 15-30 GRAMS 15 GRAMS... UD PRN PO 05/26/16 01:15 06/25/16 01:14 Glucose (Glucose Chew Tab) 4-8 Tablets 4 Tabl... UD PRN PO 05/26/16 01:15 06/25/16 01:14 Dextrose (Dextrose 50% 50ML Syringe) 25-50ML OF 50% DW IV FOR... UD PRN IV 05/26/16 01:15 06/25/16 01:14 Glucagon (Glucagon Inj) 1 mg UD PRN SQ 05/26/16 01:15 06/25/16 01:14 Physical Exam Date Time Temp Pulse Resp B/P Pulse Ox O2 Delivery O2 Flow Rate FiO2 05/26/16 07:19 36.8 56 16 149/68 98 Room Air 05/26/16 02:53 36.9 57 18 145/62 98 Room Air 05/25/16 23:45 36.7 66 18 137/69 Room Air 05/25/16 23:45 36.7 66 18 137/69 94 Room Air 05/25/16 23:16 65 18 118/53 95 Room Air 05/25/16 21:38 37.0 64 18 149/58 100 Room Air General Appearance: + mild distress Head: normocephalic, atraumatic Eyes: normal inspection, PERRL ENT: hearing grossly normal Neck: supple Respiratory/Chest: lungs clear, no respiratory distress, no accessory muscle use Cardiovascular: regular rate, rhythm Abdomen/GI: normal bowel sounds, non tender, soft Back: normal inspection Extremities/Musculoskelatal: no pedal edema, + pertinent finding (left BKA ) Neurologic/Psych: alert, normal mood/affect, normal reflexes Skin: normal color, warm/dry, no rash Laboratory Results Last 24 Hours Test 05/25/16 23:00 05/26/16 06:56 White Blood Count 7.68 K/uL Red Blood Count 3.43 M/uL Hemoglobin 11.4 g/dL Hematocrit 31.3 % Mean Corpuscular Volume 91.3 fL Mean Corpuscular Hemoglobin 33.2 pg Mean Corpuscular Hemoglobin Concent 36.4 g/dl Platelet Count 191 K/uL Mean Platelet Volume 12.4 fL RDW Standard Deviation 44.5 fL RDW Coefficient of Variation 13.3 % Neutrophils % (Manual) 80.5 % Lymphocytes % (Manual) 10.6 % Monocytes % (Manual) 7.1 % Eosinophils % (Manual) 1.8 % Neutrophils # (Manual) 6.18 K/uL Total Absolute Neutrophils 6.18 K/uL Lymphocytes # (Manual) 0.81 K/uL Total Absolute Lymphocytes 0.81 K/uL Monocytes # (Manual) 0.55 K/uL Eosinophils # (Manual) 0.14 K/uL Tear Drop Cells 1+ Echinocytes 1+ Sodium Level 142 mmol/L Potassium Level 3.5 mmol/L Chloride Level 111 mmol/L Carbon Dioxide Level 18 mmol/L Anion Gap 13.0 mmol/L Blood Urea Nitrogen 26 mg/dl Creatinine 1.20 mg/dl Est Creatinine Clear Calc Drug Dose 74.4 ml/min Estimated GFR () 72.1 Estimated GFR (Non- 62.2 BUN/Creatinine Ratio 21.3 Random Glucose 169 mg/dl Calcium Level 8.5 mg/dl Total Bilirubin 0.2 mg/dl Aspartate Amino Transf (AST/SGOT) 23 U/L Alanine Aminotransferase (ALT/SGPT) 23 U/L Alkaline Phosphatase 106 U/L Total Protein 6.3 gm/dl Albumin 2.5 gm/dl Globulin 3.8 gm/dl Albumin/Globulin Ratio 0.7 Hepatitis C Antibody Screen NEG Bedside Glucose 233 mg/dl Assessment & Plan 65 y/o male, with PMHx of CKD stage III, T2DM, polyneuropathy, diastolic HF, GERD, CABG, TIA, hyperlipidemia, HTN, JEREMIE, restless leg syndrome, s/p spinal fusion by Dr. Gibson, who presented to the ED on 05/25 because of significant back pain and constipation. Patient was discharged on 05/23. Back pain, s/p spinal fusion: - Pain management as per primary team - Per patient, placed on Bactrim BID by Dr. Gibson because of lesion on left extremity- patient does not know when this is to be completed, but knows he is still taking it. Continue at this time--> Dr. Gibson can fix stop date. Constipation: - Per patient, had small bowel movement on 05/23 prior to discharge. Admits to passing gas. Consider abdominal x-ray if no improvement with medications. - Fleet enema PRN daily - Milk of mag PRN - Dulcolax PRN - Start Miralax daily Hyperlipidemia: - Continue Lipitor 80 mg PO daily HTN: - Continue Diovan 80 mg PO daily CKD, stage III, stable: - IV NSS @ 125 ml/hr x1 bag. ECHO on 06/06/15 with EF of 55-60% - Follow PRP Diastolic HF: - Continue Lasix 40 mg PO daily - Continue Acetazolamide 500 mg PO daily T2DM: - 05/06/2016 ha1c of 7.7 - Hold home regimen - Lantus 10 units BID - BSG ACHS with sliding insulin scale - Consult pharmacy for glycemic management hx TIA: - Continue ASA 81 mg PO daily GERD: - Protonix 40 mg PO daily Restless leg syndrome: - Continue Requip 3 mg PO HS JEREMIE: - Denies CPAP/BiPAP use DVT prophylaxis: - Will leave to primary team with recent spinal surgery on 05/21 Dispo: - Discharge as per primary team Thank you for this consultation. We will continue to follow throughout hospital stay. Reviewed: Pt Seen/Exam by Me, HO Notes, Prior Records, Labs History Physician Senior Physical Therapist Supervision Note: I interviewed and examined the patient. Discussed with MIAH Leavitt and agree with findings and plan as documented in the note. Any exceptions or clarifications are listed here: Pt still with no BM today, having pain across lower abdomen and lower back. Also very itchy all over his back since coming home from his back surgery. He was placed on Bactrim for a small wound on left BKA stump and also had been on oxycodone for pain. Vitals reviewed NAD, +exophthalmos RRR no mgr nl S1S2 CTAB no wcr Abd +BS soft, mildly distended, min ttp without guarding or rebound across lower abdomen, no masses Ext no edema, no calf tenderness on right, left BKA Skin: erythematous macular rash across entire back with excoriations of buttocks below dressing, dressing in palce over lower back that is c/d/i; left BKA stump with small 5 mm open healing wound with minimal surrounding erythema and no drainage medially over previous incisional scar 65 yo male with the above history, here with constipation causing lower abd pain , lower back pain post-op from lumbar fusion. Continue pain control but d/c BOTTLE DEALER pump as soon as possible for constipation Constipation-give enema now, continue other laxatives and softeners as above Wound-consult indian nanny, cover with bandage for now, switch from Bactrim to Clinda for rash that may be allergic rxn to Bactrim Pruritis and rash: give Benadryl, stop Bactrim as above Documented By: Jess Link
[2016-05-26] MEDS ORDERED: PHARMACY GLYCEMIC MGMT CONSULT PRN (08:54)
[2016-05-26] MEDS ORDERED: INSULIN GLARGINE SOLOSTAR 100 UNITS/ML 3 ML PEN SC SCH ×2 (09:00)
[2016-05-26] MEDS: PANTOprazole SOD 40 MG TAB PO SCH (09:22)
[2016-05-26] MEDS: VALSARTAN 80 MG TAB PO SCH (09:24)
[2016-05-26] MEDS: ASPIRIN 325 MG ECTAB PO SCH (09:24)
[2016-05-26] MEDS: DORZOLAMIDE HCL 2% OPH SOLN 10 ML BTL OPB SCH ×2 (09:25→21:15)
[2016-05-26] MEDS: AcetaZOLAMIDE 500 MG CAPCR PO SCH ×2 (09:26→21:17)
[2016-05-26] MEDS: ATORVASTATIN 40 MG TAB PO SCH (09:27)
[2016-05-26] MEDS: ASCORBIC ACID 500 MG TAB PO SCH (09:27)
[2016-05-26] MEDS: FUROSEMIDE 40 MG TAB PO SCH (09:27)
[2016-05-26] MEDS: CHOLECALCIFEROL 1000 INTER.UNIT TAB PO SCH (09:28)
[2016-05-26] MEDS: INSULIN ASPART 100 UNITS/ML 3 ML PEN SC SCH ×4 (09:36→21:27)
[2016-05-26] MEDS: POLYETHYLENE (MIRALAX) 17 GM PACK PO SCH (09:42)
[2016-05-26] MEDS: SODIUM CHLORIDE 0.9% 1000ML 1,000 ML IV SCH ×2 (09:50→16:40)
[2016-05-26] MEDS ORDERED: SULFAMETHOXAZOLE/TRIMETHOPRIM DS 800/160MG TAB PO SCH (10:00)
[2016-05-26] MEDS ORDERED: BISACODYL 10 MG SUPP PR PRN (10:00)
--- NOTE | 2016-05-26 10:07 | HISTORY & PHYSICAL EXAMINATION ---
DATE OF ADMISSION: 05/25/2016 HISTORY OF PRESENT ILLNESS: This patient recently underwent elective surgery 4 day prior for revision of lumbar decompression and instrumented fusion L2-L5. He did well initially, was ambulating, pain was controlled, and was discharged Wednesday morning. Reports that his pain increased Wednesday. He began taking the oxycodone but felt he was too constipated on it and stop taking it. By Wednesday night his pain was out of control and he presented to the ED. He reports axial back pain. Denies fevers. Pain slightly improved on the morphine OPERATIONS ENGINEER, but not acceptable. He reports he has not had good size bowel movement since surgery, very small one on Wednesday prior to discharge, but now he feels that he is no longer passing flatus as well as he was previously. He has a significant medical history that is well documented on the admission H\T\P from 4 days prior. Please reference this for his complete medical history. Of note, he does have kidney disease stage III as well as diabetes limiting some of the nonnarcotic medications for pain control postoperatively. PHYSICAL EXAMINATION: On this exam he is sitting comfortably in bed. His bandage is clean, dry and intact. His incision shows no significant erythema or drainage. He is grossly neurologically intact with good range of motion lower extremities. He has a prior BKA on the left. ASSESSMENT AND PLAN: The patient will be admitted for pain control and bowel regimen and potential rehab placement. I will change his OPERATIONS ENGINEER to Dilaudid and add IV Tylenol for nonnarcotic pain control. Appreciate medicine's input.
[2016-05-26] MEDS: ACETAMINOPHEN IV 1,000 MG in EMPTY BAG 0 ML IV SCH ×2 (10:19→18:10)
[2016-05-26] MEDS: HYDROmorphone HCL 0.5MG/ML 50 ML CASSETTE IV PRN ×3 (10:40→23:04)
--- NOTE | 2016-05-26 11:37 | DIAGNOSTIC IMAGING REPORT ---
LUMBAR SPINE 2 VIEWS CLINICAL HISTORY: Postoperative examination. FINDINGS: AP and lateral standing views of the lumbar spine are correlated with lumbar spine CT dated 04/20/2013. The skeletal structures are osteopenic. Vertebral body height and alignment are maintained at the lumbar spine. There is evidence of laminectomy and posterior fusion within interposition bone graft from L2 through L5. Interpedicular screws are present at all levels, only left-sided at L4. The orthopedic hardware appears intact. There is mild lumbar levocurvature. Anterior osteophytes are noted throughout. There is advanced degenerative disc space narrowing at L4-L5. Moderate narrowing is seen at the remaining lumbar levels. The visualized bony pelvis appears intact. Mild sclerotic change is noted in the sacroiliac joints. There is a nonobstructed abdominal bowel gas pattern. Skin clips are seen posteriorly. IMPRESSION: 1. No acute bony abnormality is seen involving the lumbar spine. 2. Spondylotic change as well as postoperative change from L2 through L5 spinal fusion as above. Electronically signed by: Vishal Ibanez M.D. 05/26/2016 11:35 AM Dictated Date/Time: 05/26/2016 11:33 AM
[2016-05-26 11:46] VITALS: BP 113/67; PULSE 60; TEMP 36.4; O2SAT 97
[2016-05-26 14:59] VITALS: BP 125/66; PULSE 55; TEMP 36.6; O2SAT 99
--- NOTE | 2016-05-26 15:03 | Pharmacy Progress Note ---
Glycemic Control Intl Consult Date of Service May 26, 2016. Scope Glycemic Pharmacist consulted for glycemic control and to write orders per [facility] inpatient glycemic control protocol Objective Weight (Kilograms): 110.500 Accuchecks BSG (last 24hrs): Test 05/25/16 23:00 05/26/16 06:56 05/26/16 12:02 Random Glucose 169 mg/dl (70-99) Bedside Glucose 233 mg/dl (70-99) 265 mg/dl (70-99) Laboratory Data (last 24hrs) Test 05/25/16 23:00 Anion Gap 13.0 mmol/L BUN/Creatinine Ratio 21.3 Blood Urea Nitrogen 26 mg/dl Creatinine 1.20 mg/dl Potassium Level 3.5 mmol/L Sodium Level 142 mmol/L White Blood Count 7.68 K/uL Red Blood Count 3.43 M/uL Hemoglobin 11.4 g/dL Hematocrit 31.3 % Mean Corpuscular Volume 91.3 fL Mean Corpuscular Hemoglobin 33.2 pg Mean Corpuscular Hemoglobin Concent 36.4 g/dl Platelet Count 191 K/uL Mean Platelet Volume 12.4 fL HbA1c 7.7% on 05/06/16 Recent Pertinent Medications Outpatient Anti-diabetic Regimen: * NPH 20 units in the morning and 30 units in the evening * Regular insulin 20 units SQ QID The patient is currently receiving: * Basal insulin: Lantus 10 units every 12 hours * Correctional Insulin: Novolog Correction per scale ACHS Goal Range: Low 120 mg/dL - High 150 mg/dL Correction Factor: 20 mg/dL/unit * Prandial insulin: Per carb ratio of 1 unit per 7 grams CHO consumed Risk Factors for Insulin Resistance: * Infection * Recent Surgery * Diet Assessment & Plan ASSESSMENT: * 65yo T2DM male with well controlled diabetes as an outpatient per recent A1c * BSG elevated this morning d/t basal insulin not ordered on admission. Pt missed basal insulin last evening. * Patient uses ~ 130 units of insulin as an outpatient - most of this is prandial insulin to cover presumed uncontrolled diet as an outpatient. Assuming patient will require less than this while admitted d/t ordered hospital controlled diabetic diet. Will use similar basal insulin dosing as compared to outpatient dosing and utilize weight based CF/CR bolus insulin dosing. * Will titrate insulin doses based on BSG trends to maintain goal BSG range. ADA & AACE recommend a goal blood sugar range 140-180 mg/dl for the majority of critically ill & non-critically ill patients. However, more stringent targets may be selected in individual cases. Will aim for a more stringent goal range of 120-150mg/dl based on tight glycemic control as an outpatient. PLAN FOR INPATIENT GLYCEMIC CONTROL: * Basal insulin with LANTUS SQ BID based on BSG * If BSG below 120mg/dl --> Give Lantus 10 units * If BSG 120-179mg/dl --> Give Lantus 20 units * If BSG 180mg/dl or above --> Give Lantus 27 units * Correctional Insulin with NOVOLOG per scale ACHS or Q6hrs while NPO. Overnight checks + coverage for sustained hyperglycemia. * Goal Range: Low 120 mg/dL - High 150 mg/dL * Correction Factor: 15 mg/dL/unit * Nutritional / Prandial insulin per carb ratio of 1 unit per 5 grams CHO consumed * Please note that the plan above was derived based on current level of insulin resistance and hospital stress. These recommendations are appropriate for inpatient admission only. Plan of care upon discharge will need to be reassessed to avoid potential outpatient hypo/hyperglycemia. Thank you.
[2016-05-26 18:28] VITALS: BP 155/51; PULSE 61; TEMP 36.7; O2SAT 100
[2016-05-26] MEDS: SOD PHOSPHATE/SOD BIPHOSPHATE ENEMA 132 ML BTL PR PRN (19:40)
[2016-05-26] MEDS: ROPINIROLE HCL 1 MG TAB PO SCH (21:17)
[2016-05-26] MEDS: INSULIN GLARGINE SOLOSTAR 100 UNITS/ML 3 ML PEN SC SCH (21:28)
[2016-05-26] MEDS: LATANOPROST 0.005% OP SOLN 2.5 ML BTL OP SCH (22:01)
[2016-05-26] MEDS: CLINDAMYCIN HCL 150 MG CAP PO SCH (22:04)
[2016-05-26 23:10] VITALS: BP 146/60; PULSE 71; TEMP 37.1; O2SAT 98
[2016-05-27] VITALS (7 sets, daily range): BP systolic 120–173; BP diastolic 55–72; PULSE 55–70; TEMP 36.4–36.8; O2SAT 95–100
[2016-05-27] MEDS: ACETAMINOPHEN IV 1,000 MG in EMPTY BAG 0 ML IV SCH ×3 (01:44→19:03)
[2016-05-27 05:54] LABS: HEMATOCRIT 30.1 % (42-52); MEAN CELL VOLUME 93.8 fL (80-100); MEAN CORPUSCULAR HEMOGLOBIN 31.5 pg (25-34); MEAN CORPUSCULAR HGB CONC 33.6 g/dl (32-36); MEAN PLATELET VOLUME 12.4 fL (7.4-10.4); PLATELET COUNT 191 K/uL (130-400); RED BLOOD COUNT 3.21 M/uL (4.7-6.1); WHITE BLOOD COUNT 6.98 K/uL (4.8-10.8)
[2016-05-27] MEDS: CLINDAMYCIN HCL 150 MG CAP PO SCH ×3 (06:06→22:24)
[2016-05-27 06:37] LABS: BUN/CREATININE RATIO 19.3 (10-20); CALCIUM 8.3 mg/dl (8.5-10.1); CREATININE 1.4 mg/dl (0.60-1.40); POTASSIUM 4.1 mmol/L (3.5-5.1)
[2016-05-27] MEDS: HYDROmorphone HCL 0.5MG/ML 50 ML CASSETTE IV PRN ×3 (06:54→23:06)
--- NOTE | 2016-05-27 07:20 | Orthopedic Progress Note ---
Orthopedic Progress Note Date of Service May 27, 2016. Subjective Reports: complaints (abdominal pain, back pain), pain controlled w PO medications, Denies: SOB, calf pain, chest pain, light headedness, nausea / vomiting Additional Notes: Doing a little better, still has abdominal pain despite 1 BM. Back pain is moderate. No leg pain or numbness. Otherwise medically stable lying in bed, comfortable at this time. Objective calves soft nontender, N/V intact, capillary refill less than 2 sec., incision C /D/I, A&O x3, toes mobile Date Time Temp Pulse Resp B/P Pulse Ox O2 Delivery O2 Flow Rate FiO2 05/27/16 02:40 36.8 56 18 147/67 97 Room Air 05/26/16 23:30 Room Air 05/26/16 23:10 37.1 71 17 146/60 98 Room Air 05/26/16 18:28 36.7 61 18 155/51 100 Room Air 05/26/16 15:15 Room Air 05/26/16 14:59 36.6 55 16 125/66 99 Room Air 05/26/16 11:46 36.4 60 16 113/67 97 Room Air 05/26/16 07:45 Room Air 05/26/16 07:19 36.8 56 16 149/68 98 Room Air Laboratory Results 24 Hours: Test 05/27/16 05:35 Hematocrit 30.1 % Hemoglobin 10.1 g/dL Assessment & Plan Assessment: Constipation, s/p lumbar decompression and fusion Plan: Continue regimen for constipation, consider Relistor if constipation continues. PT/OT consult to help determine needs at home. Appreciate Soc Service input. Will continue to follow
--- NOTE | 2016-05-27 08:42 | Hospitalist Progress Note ---
Hospitalist Progress Note Date of Service May 27, 2016. (Sofya Beltran ., PAMelindaC) Subjective Pt evaluation today including: conversation w/ patient, physical exam, chart review, lab review, review of inpatient medication list Voiding: no voiding problems, no incontinence Patient states he is in pain. +whole body itchiness. +back pain. +abdominal discomfort. Eating very little due to constipation- has had 2 BMs since admission. Patient denies any fever, chills, sweats, lightheadedness, dizziness , vision changes, CP, palpitations, edema, SOB, wheezing, cough, nausea, vomiting, diarrhea, urinary symptoms, melena, numbness/tingling, weakness, anxiety/depression, active bleeding, or new skin discoloration/changes. (Sofya Beltran ., WINIFREDC) Medications Current Inpatient Medications Medications (Trade) Dose Ordered Sig/Phuc Route Start Time Stop Time Status Last Admin Dose Admin Miscellaneous (Iv Fluids Completed) 1 ea PRN PRN N/A 05/26/16 00:15 05/26/17 00:14 Insulin Aspart (novoLOG ASPART) SLIDING SCALE G... ACHS SC 05/26/16 08:00 06/25/16 07:59 05/26/16 21:27 5 UNITS Glucose (Glucose 40% Gel) 15-30 GRAMS 15 GRAMS... UD PRN PO 05/26/16 01:15 06/25/16 01:14 Glucose (Glucose Chew Tab) 4-8 Tablets 4 Tabl... UD PRN PO 05/26/16 01:15 06/25/16 01:14 Dextrose (Dextrose 50% 50ML Syringe) 25-50ML OF 50% DW IV FOR... UD PRN IV 05/26/16 01:15 06/25/16 01:14 Glucagon (Glucagon Inj) 1 mg UD PRN SQ 05/26/16 01:15 06/25/16 01:14 Acetazolamide (Diamox Sequels) 500 mg BID PO 05/26/16 09:00 06/25/16 08:59 Future hold 05/26/16 21:17 500 MG Ascorbic Acid (Vitamin C Tab) 1,000 mg QAM PO 05/26/16 09:00 06/25/16 08:59 05/26/16 09:27 1,000 MG Aspirin (Ecotrin Tab) 325 mg QAM PO 05/26/16 09:00 06/25/16 08:59 05/26/16 09:24 325 MG Atorvastatin Calcium (Lipitor Tab) 80 mg DAILY PO 05/26/16 09:00 06/25/16 08:59 05/26/16 09:27 80 MG Cholecalciferol (Vitamin D Tab) 2,000 inter.unit QAM PO 05/26/16 09:00 06/25/16 08:59 05/26/16 09:28 2,000 INTER.UNIT Dorzolamide HCl (Trusopt 2% Oph Soln) 1 drops BID OPB 05/26/16 09:00 06/25/16 08:59 05/26/16 21:15 1 DROPS Furosemide (Lasix Tab) 40 mg QAM PO 05/26/16 09:00 06/25/16 08:59 05/26/16 09:27 40 MG Latanoprost (Xalatan Oph Soln) 1 drops HS OP 05/26/16 21:00 06/25/16 20:59 05/26/16 22:01 1 DROPS Ropinirole HCl (Requip Tab) 3 mg HS PO 05/26/16 21:00 06/25/16 20:59 05/26/16 21:17 3 MG Valsartan (Diovan Tab) 80 mg QAM PO 05/26/16 09:00 06/25/16 08:59 05/26/16 09:24 80 MG Miscellaneous Information (Consult Glycemic Management Pharmacy) 1 ea UD PRN N/A 05/26/16 08:54 06/25/16 08:53 Sodium Biphosphate/ Sodium Phosphate (Fleet Enema) 132 ml DAILY PRN [place] 05/26/16 08:30 06/25/16 08:29 05/26/16 19:40 132 ML Magnesium Hydroxide (Milk Of Magnesia Susp) 30 ml Q6H PRN PO 05/26/16 08:30 06/25/16 08:29 05/26/16 12:50 30 ML Bisacodyl (Dulcolax Tab) 5 mg Q8H PRN PO 05/26/16 08:30 06/25/16 08:29 05/26/16 09:39 5 MG Pantoprazole Sodium (Protonix Tab) 40 mg QAM PO 05/26/16 09:00 06/25/16 08:59 05/26/16 09:22 40 MG Polyethylene 17 gm 17 gm DAILY PO 05/26/16 09:00 06/25/16 08:59 05/26/16 09:42 17 GM Acetaminophen/ Empty Bag (Ofirmev Iv/ Empty Iv Bag 100ml) 100 ml @ 400 mls/hr Q8H IV 05/26/16 10:00 06/25/16 09:59 05/27/16 01:44 400 MLS/HR Naloxone HCl (Narcan Inj) 0.1 mg Q5M PRN IV 05/26/16 10:00 06/25/16 09:59 Hydromorphone HCl 25 mg 25 mg PRN PRN IV 05/26/16 10:00 06/09/16 09:59 05/27/16 06:54 25 MG Sodium Chloride (Nss 1000ml) 1,000 ml @ 15 mls/hr Q24H IV 05/26/16 09:50 06/25/16 09:49 05/26/16 16:40 15 MLS/HR Bisacodyl (Dulcolax Supp) 10 mg BID PRN [place] 05/26/16 10:00 06/25/16 09:59 05/27/16 02:43 10 MG Insulin Glargine (Lantus Solostar Pen) see protocol text BID SC 05/26/16 21:00 06/25/16 20:59 05/26/16 21:28 27 UNIT Diphenhydramine HCl (Benadryl Cap) 25 mg Q4H PRN PO 05/26/16 19:00 06/25/16 18:59 05/26/16 22:12 25 MG Clindamycin HCl (Cleocin Cap) 300 mg Q8 PO 05/26/16 22:00 06/05/16 21:59 05/27/16 06:06 300 MG (Sofya Beltran PA-C) Objective Vital Signs Date Time Temp Pulse Resp B/P Pulse Ox O2 Delivery O2 Flow Rate FiO2 05/27/16 07:56 36.4 56 16 172/72 97 Room Air 05/27/16 07:35 Room Air 05/27/16 02:40 36.8 56 18 147/67 97 Room Air 05/26/16 23:30 Room Air 05/26/16 23:10 37.1 71 17 146/60 98 Room Air 05/26/16 18:28 36.7 61 18 155/51 100 Room Air 05/26/16 15:15 Room Air 05/26/16 14:59 36.6 55 16 125/66 99 Room Air 05/26/16 11:46 36.4 60 16 113/67 97 Room Air (Sofya Beltran PA-C) Physical Exam General Appearance: no apparent distress Eyes: normal inspection, PERRL ENT: hearing grossly normal Neck: supple Respiratory/Chest: lungs clear, no respiratory distress, no accessory muscle use Cardiovascular: regular rate, rhythm Abdomen: normal bowel sounds, + distended, + tenderness (mild diffuse tenderness to palpation ) Extremities: no pedal edema, no calf tenderness, + pertinent finding (left BKA - wound covered with clean bandage ) Neurologic/Psychiatric: alert, normal mood/affect, oriented x 3 Skin: normal color, warm/dry, no rash (Sofya Beltran, MIAH-C) Laboratory Results Last 24 Hours Test 05/26/16 12:02 05/26/16 16:43 05/26/16 21:03 05/27/16 05:35 Bedside Glucose 265 mg/dl 210 mg/dl 215 mg/dl White Blood Count 6.98 K/uL Red Blood Count 3.21 M/uL Hemoglobin 10.1 g/dL Hematocrit 30.1 % Mean Corpuscular Volume 93.8 fL Mean Corpuscular Hemoglobin 31.5 pg Mean Corpuscular Hemoglobin Concent 33.6 g/dl RDW Standard Deviation 45.9 fL RDW Coefficient of Variation 13.2 % Platelet Count 191 K/uL Mean Platelet Volume 12.4 fL Sodium Level 142 mmol/L Potassium Level 4.1 mmol/L Chloride Level 112 mmol/L Carbon Dioxide Level 21 mmol/L Anion Gap 9.0 mmol/L Blood Urea Nitrogen 27 mg/dl Creatinine 1.40 mg/dl Est Creatinine Clear Calc Drug Dose 63.7 ml/min Estimated GFR () 59.8 Estimated GFR (Non- 51.6 BUN/Creatinine Ratio 19.3 Random Glucose 221 mg/dl Calcium Level 8.3 mg/dl Test 05/27/16 08:21 Bedside Glucose 254 mg/dl (Sofya Beltran, PAMelindaC) Assessment and Plan 65 y/o male, with PMHx of CKD stage III, T2DM, polyneuropathy, diastolic HF, GERD, CABG, TIA, hyperlipidemia, HTN, JEREMIE, restless leg syndrome, s/p spinal fusion by Dr. Gibson, who presented to the ED on 05/25 because of significant back pain and constipation. Patient was discharged on 05/23. Back pain, s/p spinal fusion: - Pain management as per primary team--> d/c RN RELIEF CHARGE LUAN, likely contributing to constipation - Per patient, placed on Bactrim BID by Dr. Gibson because of lesion on left extremity- patient does not know when this is to be completed, but knows he is still taking it. Continue at this time--> Dr. Gibson can fix stop date. -- Patient very itchy since discharge on 05/23--> ?secondary to Bactrim. d/c, start Clindamycin 300 mg PO q8 hrs. Consult wound care Constipation: - Per patient, had small bowel movement on 05/23 prior to discharge. Admits to passing gas. Consider abdominal x-ray if no improvement with medications. -- 2 BM reported on 05/27 - Fleet enema PRN daily - Milk of mag PRN - Dulcolax PRN - Start Miralax daily Hyperlipidemia: - Continue Lipitor 80 mg PO daily HTN: - Continue Diovan 80 mg PO daily - Hypertensive, likely secondary to pain. Add Hydralazine PRN CKD, stage III, stable: - IV NSS @ 125 ml/hr x1 bag. ECHO on 06/06/15 with EF of 55-60% - Follow PRP Diastolic HF: - Continue Lasix 40 mg PO daily - Hold Acetazolamide 500 mg PO daily T2DM: - 05/06/2016 ha1c of 7.7 - Hold home regimen - Lantus 20 units BID - BSG ACHS with sliding insulin scale - Consult pharmacy for glycemic management hx TIA: - Continue ASA 81 mg PO daily GERD: - Protonix 40 mg PO daily Restless leg syndrome: - Continue Requip 3 mg PO HS JEREMIE: - Denies CPAP/BiPAP use DVT prophylaxis: - Will leave to primary team with recent spinal surgery on 05/21 Dispo: - Discharge as per primary team Thank you for this consultation. We will continue to follow throughout hospital stay. (Sofya Beltran ., MADELINE) Reviewed: Pt Seen/Exam by , [place] Notes, Labs (Jess Link MD) History Physician Signalman Supervision Note: I interviewed and examined the patient. Discussed with MIAH Leavitt and agree with findings and plan as documented in the note. Any exceptions or clarifications are listed here: Pt with 1-2 small BMs in the last day, still having pain across lower abdomen and lower back requiring RN RELIEF CHARGE. Itching and rash much improved since stopping Bactrim Vitals reviewed NAD, +exophthalmos RRR no mgr nl S1S2 CTAB no wcr Abd +BS soft, mildly distended, min ttp without guarding or rebound across lower abdomen, no masses Ext no edema, no calf tenderness on right, left BKA Skin: rash across back resolved, dressing in palce over lower back that is c/d/i ; left BKA stump with small 5 mm open healing wound with minimal surrounding erythema and no drainage medially over previous incisional scar 65 yo male with the above history, here with constipation causing lower abd pain , lower back pain post-op from lumbar fusion. Continue pain control but d/c RN RELIEF CHARGE pump as soon as possible for constipation Constipation-give Mag citrate now, continue other laxatives and softeners as above, encouraged OOB and ambulation as tolerated Wound-consult refund clerk, cover with bandage for now, switched from Bactrim to Clinda for rash that may be allergic rxn to Bactrim and is now improving Pruritis and rash: gave Benadryl, stopped Bactrim as above Met acidosis-resolved, remains on Diamox for glaucoma Proph- SCD Documented By: Jess Link (Jess Link MD)
[2016-05-27] MEDS ORDERED: HydrALAZINE HCL 20 MG/ML VIAL IV. PRN (08:45)
[2016-05-27] MEDS: ASPIRIN 325 MG ECTAB PO SCH (09:26)
[2016-05-27] MEDS: AcetaZOLAMIDE 500 MG CAPCR PO SCH ×2 (09:26→22:24)
[2016-05-27] MEDS: FUROSEMIDE 40 MG TAB PO SCH (09:27)
[2016-05-27] MEDS: POLYETHYLENE (MIRALAX) 17 GM PACK PO SCH (09:27)
[2016-05-27] MEDS: PANTOprazole SOD 40 MG TAB PO SCH (09:27)
[2016-05-27] MEDS: VALSARTAN 80 MG TAB PO SCH (09:27)
[2016-05-27] MEDS: ATORVASTATIN 40 MG TAB PO SCH (09:28)
[2016-05-27] MEDS: DORZOLAMIDE HCL 2% OPH SOLN 10 ML BTL OPB SCH ×2 (09:28→22:23)
[2016-05-27] MEDS: ASCORBIC ACID 500 MG TAB PO SCH (09:28)
[2016-05-27] MEDS: CHOLECALCIFEROL 1000 INTER.UNIT TAB PO SCH (09:29)
[2016-05-27] MEDS: SODIUM CHLORIDE 0.9% 1000ML 1,000 ML IV SCH (09:30)
[2016-05-27] MEDS: INSULIN GLARGINE SOLOSTAR 100 UNITS/ML 3 ML PEN SC SCH ×2 (09:38→22:33)
[2016-05-27] MEDS: INSULIN ASPART 100 UNITS/ML 3 ML PEN SC SCH ×4 (09:40→22:32)
--- NOTE | 2016-05-27 13:30 | Pharmacy Progress Note ---
Glycemic Control: Progress Nt Date of Service May 27, 2016. Scope Glycemic Pharmacist consulted for glycemic control and to write orders per [facility] inpatient glycemic control protocol. Objective Accuchecks BSG (last 24hrs): Test 05/26/16 16:43 05/26/16 21:03 05/27/16 05:35 05/27/16 08:21 Bedside Glucose 210 mg/dl (70-99) 215 mg/dl (70-99) 254 mg/dl (70-99) Random Glucose 221 mg/dl (70-99) Test 05/27/16 12:04 Bedside Glucose 252 mg/dl (70-99) Laboratory Data (last 24hrs) Test 05/27/16 05:35 Anion Gap 9.0 mmol/L BUN/Creatinine Ratio 19.3 Blood Urea Nitrogen 27 mg/dl Creatinine 1.40 mg/dl Potassium Level 4.1 mmol/L Sodium Level 142 mmol/L White Blood Count 6.98 K/uL HbA1c: 7.7% on 05/06/16 Recent Pertinent Medications Outpatient Anti-diabetic Regimen: * NPH 20 units in the morning and 30 units in the evening * Regular insulin 20 units SQ QID The patient is currently receiving: * Basal insulin: Lantus SQ every 12 hours - dose based on BSG * If BSG below 120mg/dl --> Give Lantus 10 units * If BSG 120-179mg/dl --> Give Lantus 20 units * If BSG 180mg/dl or above --> Give Lantus 27 units * Correctional Insulin: Novolog Correction per scale ACHS Goal Range: Low 120 mg/dL - High 150 mg/dL Correction Factor: 15 mg/dL/unit * Prandial insulin: Per carb ratio of 1 unit per 5 grams CHO consumed Risk Factors for Insulin Resistance: * Infection * Recent Surgery * Diet * Pain Assessment & Plan ASSESSMENT: * 65yo T2DM male with well controlled diabetes as an outpatient per recent A1c * Patient uses ~ 130 units of insulin as an outpatient - most of this is prandial insulin to cover presumed uncontrolled diet as an outpatient. Assuming patient will require less than this while admitted d/t ordered hospital controlled diabetic diet. * Pt initiated on SQ basal bolus insulin regimen similar to both outpatient dosing and weight based dosing. This was slightly lower than outpatient dosing. * Pt has received 84 units of insulin over the past 24hrs ; BSGs [id number]- 254-252 over the past 24hrs * All BSGs are above goal range. Both basal and prandial insulin needs increased. * Of note, pt did not eat lunch today (05/27/16) d/t not feeling well. Will very conservatively increase regimen keeping in mind decreased PO intake. * Will titrate insulin doses based on BSG trends to maintain goal BSG range. ADA & AACE recommend a goal blood sugar range 140-180 mg/dl for the majority of critically ill & non-critically ill patients. However, more stringent targets may be selected in individual cases. Will aim for a more stringent goal range of 120-150mg/dl based on tight glycemic control as an outpatient. PLAN FOR INPATIENT GLYCEMIC CONTROL: * Basal insulin with LANTUS SQ BID based on BSG * If BSG below 120mg/dl --> Give Lantus 10 units * If BSG 120-179mg/dl --> Give Lantus 20 units * INCREASE If BSG 180mg/dl or above --> Give Lantus 30 units * TIGHTEN Correctional Insulin with NOVOLOG per scale ACHS or Q6hrs while NPO. Overnight checks + coverage for sustained hyperglycemia. * Goal Range: Low 120 mg/dL - High 150 mg/dL * Correction Factor: 10 mg/dL/unit * Nutritional / Prandial insulin per carb ratio of 1 unit per 4 grams CHO consumed * Please note that the plan above was derived based on current level of insulin resistance and hospital stress. These recommendations are appropriate for inpatient admission only. Plan of care upon discharge will need to be reassessed to avoid potential outpatient hypo/hyperglycemia. Thank you.
[2016-05-27] MEDS ORDERED: MAGNESIUM CITRATE 296 ML/BTL PO ONE (17:00)
[2016-05-27] MEDS: LATANOPROST 0.005% OP SOLN 2.5 ML BTL OP SCH (22:23)
[2016-05-27] MEDS: ROPINIROLE HCL 1 MG TAB PO SCH (22:25)
[2016-05-27] MEDS: SOD PHOSPHATE/SOD BIPHOSPHATE ENEMA 132 ML BTL PR PRN (22:35)
[2016-05-28] VITALS (7 sets, daily range): BP systolic 117–165; BP diastolic 55–80; PULSE 55–65; TEMP 36.3–36.9; O2SAT 97–100
[2016-05-28] MEDS: INSULIN ASPART 100 UNITS/ML 3 ML PEN SC SCH ×6 (00:05→21:06)
[2016-05-28] MEDS: ACETAMINOPHEN IV 1,000 MG in EMPTY BAG 0 ML IV SCH ×3 (02:03→18:02)
[2016-05-28] MEDS: CLINDAMYCIN HCL 150 MG CAP PO SCH ×3 (05:30→20:56)
[2016-05-28] MEDS: HYDROmorphone HCL 0.5MG/ML 50 ML CASSETTE IV PRN ×3 (07:04→23:03)
[2016-05-28 07:40] LABS: HEMATOCRIT 29.1 % (42-52); MEAN CELL VOLUME 93.6 fL (80-100); MEAN CORPUSCULAR HEMOGLOBIN 31.5 pg (25-34); MEAN CORPUSCULAR HGB CONC 33.7 g/dl (32-36); MEAN PLATELET VOLUME 11.9 fL (7.4-10.4); PLATELET COUNT 217 K/uL (130-400); RED BLOOD COUNT 3.11 M/uL (4.7-6.1); WHITE BLOOD COUNT 7.27 K/uL (4.8-10.8)
[2016-05-28 08:53] LABS: BUN/CREATININE RATIO 24.1 (10-20); CALCIUM 8.5 mg/dl (8.5-10.1); CREATININE 1.3 mg/dl (0.60-1.40); POTASSIUM 3.7 mmol/L (3.5-5.1)
--- NOTE | 2016-05-28 09:11 | Pharmacy Progress Note ---
Glycemic Control: Progress Nt Date of Service May 28, 2016. Scope Glycemic Pharmacist consulted by Dr Link on 05/26 for glycemic control and to write orders per [facility] inpatient glycemic control protocol. Objective Accuchecks BSG (last 24hrs): Test 05/27/16 12:04 05/27/16 17:06 05/27/16 20:51 05/28/16 00:01 Bedside Glucose 252 mg/dl (70-99) 233 mg/dl (70-99) 286 mg/dl (70-99) 146 mg/dl (70-99) Test 05/28/16 04:00 05/28/16 07:25 05/28/16 08:12 Bedside Glucose 88 mg/dl (70-99) 157 mg/dl (70-99) Random Glucose 148 mg/dl (70-99) Laboratory Data (last 24hrs) Test 05/28/16 07:25 Anion Gap 14.0 mmol/L BUN/Creatinine Ratio 24.1 Blood Urea Nitrogen 31 mg/dl Creatinine 1.30 mg/dl Potassium Level 3.7 mmol/L Sodium Level 142 mmol/L White Blood Count 7.27 K/uL Recent Pertinent Medications Outpatient Anti-diabetic Regimen: * NPH 20 units in the morning and 30 units in the evening * Regular insulin 20 units SQ QID * HbA1c 7.7% on 05/06/16 The patient is currently receiving: * Basal insulin: Lantus SQ every 12 hours - dose based on BSG * If BSG below 120mg/dl --> Give Lantus 10 units * If BSG 120-179mg/dl --> Give Lantus 20 units * If BSG 180mg/dl or above --> Give Lantus 30 units * Correctional Insulin: Novolog Correction per scale ACHS Goal Range: Low 120 mg/dL - High 140 mg/dL Correction Factor: 10 mg/dL/unit * Prandial insulin: Per carb ratio of 1 unit per 4 grams CHO consumed Risk Factors for Insulin Resistance: * Infection * Recent Surgery * Diet * Pain Assessment & Plan ASSESSMENT: * ADA & AACE recommend a goal blood sugar range 140-180 mg/dl for the majority of critically ill & non-critically ill patients. However, more stringent targets may be selected in individual cases. 05/27/16 * 65yo T2DM male with well controlled diabetes as an outpatient per recent A1c * Patient uses ~ 130 units of insulin as an outpatient - most of this is prandial insulin to cover presumed uncontrolled diet as an outpatient. Assuming patient will require less than this while admitted d/t ordered hospital controlled diabetic diet. * Pt initiated on SQ basal bolus insulin regimen similar to both outpatient dosing and weight based dosing. This was slightly lower than outpatient dosing. * Pt has received 84 units of insulin over the past 24hrs ; BSGs [phone]- [id number] over the past 24hrs * All BSGs are above goal range. Both basal and prandial insulin needs increased. * Of note, pt did not eat lunch today (05/27/16) d/t not feeling well. Will very conservatively increase regimen keeping in mind decreased PO intake. * Will titrate insulin doses based on BSG trends to maintain goal BSG range. ADA & AACE recommend a goal blood sugar range 140-180 mg/dl for the majority of critically ill & non-critically ill patients. However, more stringent targets may be selected in individual cases. Will aim for a more stringent goal range of 120-150mg/dl based on tight glycemic control as an outpatient. 05/28/16 * BSG's trended down to 88 mg/dL overnight after 1 unit of Novolog was administered for a BSG of 146 mg/dL. However, AM fasting increased to 157 mg/ dL without additional CHO or insulin administered. * Therefore OK to keep Lantus at current dose. * Will slightly loosen correction factor and carb ratio as Lantus is likely close to steady state now to address overnight hypoglycemia * Will eliminate overnight BSG checks PLAN FOR INPATIENT GLYCEMIC CONTROL: * Continue basal insulin: Lantus SQ every 12 hours - dose based on BSG * If BSG below 120mg/dl --> Give Lantus 10 units * If BSG 120-179mg/dl --> Give Lantus 20 units * If BSG 180mg/dl or above --> Give Lantus 30 units * Correctional Insulin with NOVOLOG per scale ACHS or Q6hrs while NPO * Goal Range: Low 120 mg/dL - High 140 mg/dL * Loosen Correction Factor: 15 mg/dL/unit * Loosen Nutritional / Prandial insulin per carb ratio of 1 unit per 5 grams CHO consumed * Please note that the plan above was derived based on current level of insulin resistance and hospital stress. These recommendations are appropriate for inpatient admission only. Plan of care upon discharge will need to be reassessed to avoid potential outpatient hypo/hyperglycemia. Thank you.
[2016-05-28] MEDS: PANTOprazole SOD 40 MG TAB PO SCH (09:37)
[2016-05-28] MEDS: CHOLECALCIFEROL 1000 INTER.UNIT TAB PO SCH (09:38)
[2016-05-28] MEDS: AcetaZOLAMIDE 500 MG CAPCR PO SCH ×2 (09:38→20:53)
[2016-05-28] MEDS: ASCORBIC ACID 500 MG TAB PO SCH (09:38)
[2016-05-28] MEDS: VALSARTAN 80 MG TAB PO SCH (09:38)
[2016-05-28] MEDS: FUROSEMIDE 40 MG TAB PO SCH (09:38)
[2016-05-28] MEDS: ATORVASTATIN 40 MG TAB PO SCH (09:39)
[2016-05-28] MEDS: DORZOLAMIDE HCL 2% OPH SOLN 10 ML BTL OPB SCH ×2 (09:39→20:52)
[2016-05-28] MEDS: POLYETHYLENE (MIRALAX) 17 GM PACK PO SCH (09:39)
[2016-05-28] MEDS: ASPIRIN 325 MG ECTAB PO SCH (09:39)
[2016-05-28] MEDS: INSULIN GLARGINE SOLOSTAR 100 UNITS/ML 3 ML PEN SC SCH ×2 (09:44→21:07)
[2016-05-28] MEDS: SODIUM CHLORIDE 0.9% 1000ML 1,000 ML IV SCH (09:44)
--- NOTE | 2016-05-28 12:25 | Orthopedic Progress Note ---
Orthopedic Progress Note Date of Service May 28, 2016. Subjective Reports: feeling well, pain controlled w PO medications, Denies: SOB, calf pain , chest pain, complaints, light headedness, nausea / vomiting Additional Notes: Doing better since BM. Back pain is much better controlled. He is moving more freely now. Medically stable. Objective calves soft nontender, N/V intact, capillary refill less than 2 sec., incision C /D/I, A&O x3, toes mobile Date Time Temp Pulse Resp B/P Pulse Ox O2 Delivery O2 Flow Rate FiO2 05/28/16 11:09 36.3 56 16 123/68 99 Room Air 05/28/16 08:11 36.6 57 16 165/79 98 Room Air 05/28/16 07:15 Room Air 05/28/16 02:47 36.9 65 17 117/64 98 Room Air 05/27/16 23:55 Room Air 05/27/16 23:42 36.5 55 18 124/61 100 Room Air 05/27/16 19:11 36.7 70 18 162/66 98 Room Air 05/27/16 17:00 Room Air 05/27/16 15:47 36.5 60 18 173/61 99 Room Air Laboratory Results 24 Hours: Test 05/28/16 07:25 Hematocrit 29.1 % Hemoglobin 9.8 g/dL Assessment & Plan Assessment: Constipation, s/p lumbar decompression and fusion Plan: Continue regimen for constipation, consider Relistor if constipation continues. PT/OT consult to help determine needs at home. Appreciate Soc Service input. Will continue to follow
--- NOTE | 2016-05-28 12:39 | Progress Note ---
Subjective Date of Service: May 28, 2016. (Jeanie Vega PA-C) Subjective Pt evaluation today including: conversation w/ patient, physical exam, chart review, lab review, review of studies, review of inpatient medication list Patient seen and evaluated. Patient reporting feeling "200%" better. Has had BM since fleet enema and reporting improvement in back pain. Has been ambulating hallways. States he has a more positive outlook going forward. Was emotional and expressed feelings of hopelessness due to the rapid decline and pain associated with his back. Now that pain is better improved he says he doesn't have those feelings at this point. However is tearful at times. (Jeanie Vega PA-C) Problem List Medical Problems: (1) Altered mental status Status: Acute (2) Cellulitis Status: Acute (3) Orthostasis Status: Acute (4) Post-operative pain Status: Acute (5) Postoperative wound infection Status: Acute (6) Syncope Status: Acute (Jeanie Vega PA-C) Review of Systems Constitutional: No chills, No fever Eyes: No worsening of vision Respiratory: No cough, No shortness of breath Cardiac: No chest pain Abdomen: No constipation, No diarrhea, No nausea, No pain, No vomiting Musculoskeletal: + problem reported (back pain with pain better controlled at this time) Male : No dysuria Psychiatric: + problem reported (tearful with acute feelings of hopelessness due to drastic change in overall health but has been improving with pain better managed) Heme: No abnormal bleeding/bruising Endo: No fatigue Skin: + problem reported (small open wound on L knee at stub that is without pain), No itch, No rash (Jeanie Vega, WINIFREDC) Medications Current Inpatient Medications Medications (Trade) Dose Ordered Sig/Phuc Route Start Time Stop Time Status Last Admin Dose Admin Miscellaneous (Iv Fluids Completed) 1 ea PRN PRN N/A 05/26/16 00:15 05/26/17 00:14 Insulin Aspart (novoLOG ASPART) SLIDING SCALE G... ACHS SC 05/26/16 08:00 06/25/16 07:59 05/28/16 09:43 7 UNITS Glucose (Glucose 40% Gel) 15-30 GRAMS 15 GRAMS... UD PRN PO 05/26/16 01:15 06/25/16 01:14 Glucose (Glucose Chew Tab) 4-8 Tablets 4 Tabl... UD PRN PO 05/26/16 01:15 06/25/16 01:14 Dextrose (Dextrose 50% 50ML Syringe) 25-50ML OF 50% DW IV FOR... UD PRN IV 05/26/16 01:15 06/25/16 01:14 Glucagon (Glucagon Inj) 1 mg UD PRN SQ 05/26/16 01:15 06/25/16 01:14 Acetazolamide (Diamox Sequels) 500 mg BID PO 05/26/16 09:00 06/25/16 08:59 Future hold 05/28/16 09:38 500 MG Ascorbic Acid (Vitamin C Tab) 1,000 mg QAM PO 05/26/16 09:00 06/25/16 08:59 05/28/16 09:38 1,000 MG Aspirin (Ecotrin Tab) 325 mg QAM PO 05/26/16 09:00 06/25/16 08:59 05/28/16 09:39 325 MG Atorvastatin Calcium (Lipitor Tab) 80 mg DAILY PO 05/26/16 09:00 06/25/16 08:59 05/28/16 09:39 80 MG Cholecalciferol (Vitamin D Tab) 2,000 inter.unit QAM PO 05/26/16 09:00 06/25/16 08:59 05/28/16 09:38 2,000 INTER.UNIT Dorzolamide HCl (Trusopt 2% Oph Soln) 1 drops BID OPB 05/26/16 09:00 06/25/16 08:59 05/28/16 09:39 1 DROPS Furosemide (Lasix Tab) 40 mg QAM PO 05/26/16 09:00 06/25/16 08:59 05/28/16 09:38 40 MG Latanoprost (Xalatan Oph Soln) 1 drops HS OP 05/26/16 21:00 06/25/16 20:59 05/27/16 22:23 1 DROPS Ropinirole HCl (Requip Tab) 3 mg HS PO 05/26/16 21:00 06/25/16 20:59 05/27/16 22:25 3 MG Valsartan (Diovan Tab) 80 mg QAM PO 05/26/16 09:00 06/25/16 08:59 05/28/16 09:38 80 MG Miscellaneous Information (Consult Glycemic Management Pharmacy) 1 ea UD PRN N/A 05/26/16 08:54 06/25/16 08:53 Sodium Biphosphate/ Sodium Phosphate (Fleet Enema) 132 ml DAILY PRN MD 05/26/16 08:30 06/25/16 08:29 05/27/16 22:35 132 ML Magnesium Hydroxide (Milk Of Magnesia Susp) 30 ml Q6H PRN PO 05/26/16 08:30 06/25/16 08:29 05/26/16 12:50 30 ML Bisacodyl (Dulcolax Tab) 5 mg Q8H PRN PO 05/26/16 08:30 06/25/16 08:29 05/26/16 09:39 5 MG Pantoprazole Sodium (Protonix Tab) 40 mg QAM PO 05/26/16 09:00 06/25/16 08:59 05/28/16 09:37 40 MG Polyethylene 17 gm 17 gm DAILY PO 05/26/16 09:00 06/25/16 08:59 05/28/16 09:39 17 GM Acetaminophen/ Empty Bag (Ofirmev Iv/ Empty Iv Bag 100ml) 100 ml @ 400 mls/hr Q8H IV 05/26/16 10:00 06/25/16 09:59 05/28/16 09:55 400 MLS/HR Naloxone HCl (Narcan Inj) 0.1 mg Q5M PRN IV 05/26/16 10:00 06/25/16 09:59 Hydromorphone HCl 25 mg 25 mg PRN PRN IV 05/26/16 10:00 06/09/16 09:59 05/28/16 07:04 25 MG Sodium Chloride (Nss 1000ml) 1,000 ml @ 15 mls/hr Q24H IV 05/26/16 09:50 06/25/16 09:49 05/27/16 09:30 15 MLS/HR Bisacodyl (Dulcolax Supp) 10 mg BID PRN MD 05/26/16 10:00 06/25/16 09:59 05/27/16 02:43 10 MG Insulin Glargine (Lantus Solostar Pen) see protocol text BID SC 05/26/16 21:00 06/25/16 20:59 05/28/16 09:44 20 UNIT Diphenhydramine HCl (Benadryl Cap) 25 mg Q4H PRN PO 05/26/16 19:00 06/25/16 18:59 05/26/16 22:12 25 MG Clindamycin HCl (Cleocin Cap) 300 mg Q8 PO 05/26/16 22:00 06/05/16 21:59 05/28/16 05:30 300 MG Hydralazine HCl (HydrALAZINE INJ) 10 mg Q6H PRN IV. 05/27/16 08:45 06/26/16 08:44 Cyclobenzaprine HCl (Flexeril Tab) 5 mg TID PO 05/28/16 14:00 06/27/16 13:59 (Jeanie Vega, PA-C) Objective Vital Signs Date Time Temp Pulse Resp B/P Pulse Ox O2 Delivery O2 Flow Rate FiO2 05/28/16 11:09 36.3 56 16 123/68 99 Room Air 05/28/16 08:11 36.6 57 16 165/79 98 Room Air 05/28/16 07:15 Room Air 05/28/16 02:47 36.9 65 17 117/64 98 Room Air 05/27/16 23:55 Room Air 05/27/16 23:42 36.5 55 18 124/61 100 Room Air 05/27/16 19:11 36.7 70 18 162/66 98 Room Air 05/27/16 17:00 Room Air 05/27/16 15:47 36.5 60 18 173/61 99 Room Air (Jeanie Vega, PA-C) Physical Exam General Appearance: WD/WN, no apparent distress Eyes: sclerae normal, + pertinent finding (exopthalmos) ENT: hearing grossly normal Neck: supple, no JVD, trachea midline Respiratory/Chest: lungs clear, normal breath sounds, no respiratory distress, no accessory muscle use Cardiovascular: regular rate, rhythm, no gallop, no murmur Abdomen: normal bowel sounds, non tender, soft Extremities: no pedal edema, no calf tenderness Neurologic/Psychiatric: alert, oriented x 3 Skin: normal color, warm/dry, no rash (Jeanie Vega, PA-C) Laboratory Results Last 24 Hours Test 05/27/16 17:06 05/27/16 20:51 05/28/16 00:01 05/28/16 04:00 Bedside Glucose 233 mg/dl 286 mg/dl 146 mg/dl 88 mg/dl Test 05/28/16 07:25 05/28/16 08:12 White Blood Count 7.27 K/uL Red Blood Count 3.11 M/uL Hemoglobin 9.8 g/dL Hematocrit 29.1 % Mean Corpuscular Volume 93.6 fL Mean Corpuscular Hemoglobin 31.5 pg Mean Corpuscular Hemoglobin Concent 33.7 g/dl RDW Standard Deviation 45.8 fL RDW Coefficient of Variation 13.3 % Platelet Count 217 K/uL Mean Platelet Volume 11.9 fL Sodium Level 142 mmol/L Potassium Level 3.7 mmol/L Chloride Level 110 mmol/L Carbon Dioxide Level 18 mmol/L Anion Gap 14.0 mmol/L Blood Urea Nitrogen 31 mg/dl Creatinine 1.30 mg/dl Est Creatinine Clear Calc Drug Dose 68.6 ml/min Estimated GFR () 65.4 Estimated GFR (Non- 56.5 BUN/Creatinine Ratio 24.1 Random Glucose 148 mg/dl Calcium Level 8.5 mg/dl Bedside Glucose 157 mg/dl (Jeanie Vega, MIAH-C) Assessment and Plan 65 y/o male, with PMHx of CKD stage III, T2DM, polyneuropathy, diastolic HF, GERD, CABG, TIA, hyperlipidemia, HTN, JEREMIE, restless leg syndrome, s/p spinal fusion by Dr. Gibson, who presented to the ED on 05/25 because of significant back pain and constipation. Patient was discharged on 05/23. 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 Feeling drastic improvement in pain since - Continue current bowel regimen and hydration while receiving narcotics - Fleet enema PRN daily, Milk of mag PRN, Dulcolax PRN, Miralax daily Hyperlipidemia: - Atorvastatin 80 mg PO daily HTN: - Valsartan 80 mg PO daily with Hydralazine 10 mg PRN CKD, stage III: Stable - Follow PRP Diastolic HF: - Lasix 40 mg PO daily - Acetazolamide 500 mg po BID T2DM: HbA1c 7.7 - Hold home regimen - Glucose control per pharmacy H/O TIA: - ASA 325 mg PO daily GERD: - Protonix 40 mg PO daily Restless Leg Syndrome: - Requip 3 mg PO HS JEREMIE: - Denies CPAP/BiPAP use DVT prophylaxis: - Per primary given recent surgery Disposition: - Discharge as per primary team Continued [facility] stay due to: inadequate oral pain control Discharge planning: home (Jeanie Vega, MADELINE) History Physician Pediatric Cardiologist Supervision Note: I interviewed and examined the patient. Discussed with MIAH Vega and agree with findings and plan as documented in the note. Any exceptions or clarifications are listed here: Pt with multiple BMs in the last day,feels markedly improved, has almost no pain. Itching and rash much improved since stopping Bactrim Vitals reviewed NAD, +exophthalmos RRR no mgr nl S1S2 CTAB no wcr Abd +BS soft, nondistended, NT Ext no edema, no calf tenderness on right, left BKA Skin: rash across back resolved, dressing removed over lower back and incision with glenn in place appears clean and no drainage; left BKA stump with small 5 mm open healing wound with minimal surrounding erythema and no drainage medially over previous incisional scar 65 yo male with the above history, here with constipation causing lower abd pain , lower back pain post-op from lumbar fusion. Can d/c INSPECTOR FIBROUS WALLBOARD pump likely tomorrow Constipation-resolved, continue stool softener upon discharge to prevent recurrence Wound-consult director financial planning, dressing changes as per Wound Care and f/u with Wound Care [facility]inic, switched from Bactrim to Clinda for rash that may be allergic rxn to Bactrim and is now improving. Continue CLinda at least 7-10 days until seen in Wound Care CLinic Pruritis and rash: gave Benadryl, stopped Bactrim as above Met acidosis-HCO3 18 and stable, remains on Diamox for glaucoma Proph- SCD Documented By: Jess Link (Jess Link MD)
[2016-05-28] MEDS: CYCLOBENZAPRINE HCL 5 MG TAB PO SCH ×2 (13:50→20:55)
[2016-05-28] MEDS: LATANOPROST 0.005% OP SOLN 2.5 ML BTL OP SCH (20:51)
[2016-05-28] MEDS: ROPINIROLE HCL 1 MG TAB PO SCH (20:54)
[2016-05-29] MEDS: ACETAMINOPHEN IV 1,000 MG in EMPTY BAG 0 ML IV SCH ×2 (01:53→10:00)
[2016-05-29 03:11] VITALS: BP 121/61; PULSE 62; TEMP 36.8; O2SAT 98
[2016-05-29] MEDS: CLINDAMYCIN HCL 150 MG CAP PO SCH (05:50)
[2016-05-29] MEDS: HYDROmorphone HCL 0.5MG/ML 50 ML CASSETTE IV PRN (06:53)
[2016-05-29 07:07] LABS: HEMATOCRIT 28.8 % (42-52); MEAN CELL VOLUME 91.1 fL (80-100); MEAN PLATELET VOLUME 11.9 fL (7.4-10.4); PLATELET COUNT 222 K/uL (130-400); RED BLOOD COUNT 3.16 M/uL (4.7-6.1); WHITE BLOOD COUNT 5.95 K/uL (4.8-10.8)
[2016-05-29 07:22] VITALS: BP 143/68; PULSE 57; TEMP 36.3; O2SAT 97
[2016-05-29 07:42] LABS: CALCIUM 8.2 mg/dl (8.5-10.1); CREATININE 1.2 mg/dl (0.60-1.40); POTASSIUM 3.9 mmol/L (3.5-5.1)
--- NOTE | 2016-05-29 08:49 | Hospitalist Progress Note ---
Hospitalist Progress Note Date of Service May 29, 2016. (Sofya Beltran ., PAMelindaC) Subjective Pt evaluation today including: conversation w/ patient, physical exam, chart review, lab review, review of inpatient medication list Voiding: no voiding problems, no incontinence Patient states he is feeling well. +mild back pain. Feels much better since having bowel movements. Patient denies any fever, chills, sweats, lightheadedness, dizziness, vision changes, CP, palpitations, edema, SOB, wheezing, cough, abdominal pain, nausea, vomiting, diarrhea, urinary symptoms, melena, numbness/tingling, weakness, anxiety/depression, active bleeding, or new skin discoloration/changes. (Sofya Beltran ., PA-C) Medications Current Inpatient Medications Medications (Trade) Dose Ordered Sig/Phuc Route Start Time Stop Time Status Last Admin Dose Admin Miscellaneous (Iv Fluids Completed) 1 ea PRN PRN N/A 05/26/16 00:15 05/26/17 00:14 Insulin Aspart (novoLOG ASPART) SLIDING SCALE G... ACHS SC 05/26/16 08:00 06/25/16 07:59 05/29/16 09:07 14 UNITS Glucose (Glucose 40% Gel) 15-30 GRAMS 15 GRAMS... UD PRN PO 05/26/16 01:15 06/25/16 01:14 Glucose (Glucose Chew Tab) 4-8 Tablets 4 Tabl... UD PRN PO 05/26/16 01:15 06/25/16 01:14 Dextrose (Dextrose 50% 50ML Syringe) 25-50ML OF 50% DW IV FOR... UD PRN IV 05/26/16 01:15 06/25/16 01:14 Glucagon (Glucagon Inj) 1 mg UD PRN SQ 05/26/16 01:15 06/25/16 01:14 Acetazolamide (Diamox Sequels) 500 mg BID PO 05/26/16 09:00 06/25/16 08:59 Future hold 05/29/16 08:57 500 MG Ascorbic Acid (Vitamin C Tab) 1,000 mg QAM PO 05/26/16 09:00 06/25/16 08:59 05/29/16 08:58 1,000 MG Aspirin (Ecotrin Tab) 325 mg QAM PO 05/26/16 09:00 06/25/16 08:59 05/29/16 08:58 325 MG Atorvastatin Calcium (Lipitor Tab) 80 mg DAILY PO 05/26/16 09:00 06/25/16 08:59 05/29/16 08:58 80 MG Cholecalciferol (Vitamin D Tab) 2,000 inter.unit QAM PO 05/26/16 09:00 06/25/16 08:59 05/29/16 08:57 2,000 INTER.UNIT Dorzolamide HCl (Trusopt 2% Oph Soln) 1 drops BID OPB 05/26/16 09:00 06/25/16 08:59 05/29/16 08:59 1 DROPS Furosemide (Lasix Tab) 40 mg QAM PO 05/26/16 09:00 06/25/16 08:59 05/29/16 08:57 40 MG Latanoprost (Xalatan Oph Soln) 1 drops HS OP 05/26/16 21:00 06/25/16 20:59 05/28/16 20:51 1 DROPS Ropinirole HCl (Requip Tab) 3 mg HS PO 05/26/16 21:00 06/25/16 20:59 05/28/16 20:54 3 MG Valsartan (Diovan Tab) 80 mg QAM PO 05/26/16 09:00 06/25/16 08:59 05/29/16 08:57 80 MG Miscellaneous Information (Consult Glycemic Management Pharmacy) 1 ea UD PRN N/A 05/26/16 08:54 06/25/16 08:53 Sodium Biphosphate/ Sodium Phosphate (Fleet Enema) 132 ml DAILY PRN [place] 05/26/16 08:30 06/25/16 08:29 05/27/16 22:35 132 ML Magnesium Hydroxide (Milk Of Magnesia Susp) 30 ml Q6H PRN PO 05/26/16 08:30 06/25/16 08:29 05/26/16 12:50 30 ML Bisacodyl (Dulcolax Tab) 5 mg Q8H PRN PO 05/26/16 08:30 06/25/16 08:29 05/26/16 09:39 5 MG Pantoprazole Sodium (Protonix Tab) 40 mg QAM PO 05/26/16 09:00 06/25/16 08:59 05/29/16 08:58 40 MG Polyethylene 17 gm 17 gm DAILY PO 05/26/16 09:00 06/25/16 08:59 05/29/16 08:58 17 GM Acetaminophen/ Empty Bag (Ofirmev Iv/ Empty Iv Bag 100ml) 100 ml @ 400 mls/hr Q8H IV 05/26/16 10:00 06/25/16 09:59 05/29/16 01:53 400 MLS/HR Naloxone HCl (Narcan Inj) 0.1 mg Q5M PRN IV 05/26/16 10:00 06/25/16 09:59 Hydromorphone HCl 25 mg 25 mg PRN PRN IV 05/26/16 10:00 06/09/16 09:59 05/29/16 06:53 25 MG Sodium Chloride (Nss 1000ml) 1,000 ml @ 15 mls/hr Q24H IV 05/26/16 09:50 06/25/16 09:49 05/27/16 09:30 15 MLS/HR Bisacodyl (Dulcolax Supp) 10 mg BID PRN [place] 05/26/16 10:00 06/25/16 09:59 05/27/16 02:43 10 MG Insulin Glargine (Lantus Solostar Pen) see protocol text BID SC 05/26/16 21:00 06/25/16 20:59 05/29/16 09:08 30 UNIT Diphenhydramine HCl (Benadryl Cap) 25 mg Q4H PRN PO 05/26/16 19:00 06/25/16 18:59 05/26/16 22:12 25 MG Clindamycin HCl (Cleocin Cap) 300 mg Q8 PO 05/26/16 22:00 06/05/16 21:59 05/29/16 05:50 300 MG Hydralazine HCl (HydrALAZINE INJ) 10 mg Q6H PRN IV. 05/27/16 08:45 06/26/16 08:44 Cyclobenzaprine HCl (Flexeril Tab) 5 mg TID PO 05/28/16 14:00 06/27/16 13:59 05/29/16 08:58 5 MG (Murarik, Sofya ., PA-C) Objective Vital Signs Date Time Temp Pulse Resp B/P Pulse Ox O2 Delivery O2 Flow Rate FiO2 05/29/16 07:22 36.3 57 16 143/68 97 Room Air 05/29/16 07:20 Room Air 05/29/16 03:11 36.8 62 17 121/61 98 Room Air 05/28/16 23:45 Room Air 05/28/16 23:06 36.7 63 17 154/76 97 Room Air 05/28/16 21:02 36.7 55 18 164/80 100 Room Air 05/28/16 16:31 Room Air 05/28/16 15:27 36.7 59 18 142/55 100 Room Air 05/28/16 11:09 36.3 56 16 123/68 99 Room Air 05/28/16 10:36 57 (Sofya Beltran ., PA-C) Physical Exam General Appearance: no apparent distress, + obese Eyes: normal inspection, PERRL ENT: hearing grossly normal Neck: supple Respiratory/Chest: lungs clear, no respiratory distress, no accessory muscle use Cardiovascular: regular rate, rhythm Abdomen: normal bowel sounds, non tender, soft Extremities: no pedal edema, no calf tenderness, + pertinent finding (left BKA ) Neurologic/Psychiatric: alert, normal mood/affect, oriented x 3 Skin: normal color, warm/dry, no rash (Sofya Beltran, PA-C) Laboratory Results Last 24 Hours Test 05/28/16 12:27 05/28/16 16:59 05/28/16 20:52 05/29/16 06:33 Bedside Glucose 219 mg/dl 192 mg/dl 189 mg/dl White Blood Count 5.95 K/uL Red Blood Count 3.16 M/uL Hemoglobin 9.8 g/dL Hematocrit 28.8 % Mean Corpuscular Volume 91.1 fL Mean Corpuscular Hemoglobin 31.0 pg Mean Corpuscular Hemoglobin Concent 34.0 g/dl RDW Standard Deviation 43.6 fL RDW Coefficient of Variation 13.0 % Platelet Count 222 K/uL Mean Platelet Volume 11.9 fL Sodium Level 140 mmol/L Potassium Level 3.9 mmol/L Chloride Level 110 mmol/L Carbon Dioxide Level 19 mmol/L Anion Gap 11.0 mmol/L Blood Urea Nitrogen 26 mg/dl Creatinine 1.20 mg/dl Est Creatinine Clear Calc Drug Dose 74.4 ml/min Estimated GFR () 72.1 Estimated GFR (Non- 62.2 BUN/Creatinine Ratio 22.0 Random Glucose 181 mg/dl Calcium Level 8.2 mg/dl Test 05/29/16 08:05 Bedside Glucose 188 mg/dl (Sofya Beltran PA-C) Assessment and Plan 65 y/o male, with PMHx of CKD stage III, T2DM, polyneuropathy, diastolic HF, GERD, CABG, TIA, hyperlipidemia, HTN, JEREMIE, restless leg syndrome, s/p spinal fusion by Dr. Gibson, who presented to the ED on 05/25 because of significant back pain and constipation. Patient was discharged on 05/23. Back pain, s/p spinal fusion: - Pain management as per primary team Wound left BKA stump: - d/c Bactrim secondary to allergic reaction (pruritus). Started Clindamycin 300 mg PO q8 hrs on 05/26 for 10 day course - Consulted wound care- will need 1 week follow-up outpatient Constipation, resolved: - Fleet enema PRN daily - Milk of mag PRN - Dulcolax PRN - Start Miralax daily Hyperlipidemia: - Continue Lipitor 80 mg PO daily HTN: - Continue Diovan 80 mg PO daily - Hypertensive, likely secondary to pain. Add Hydralazine PRN CKD, stage III, stable: - IV NSS @ 125 ml/hr x1 bag. ECHO on 06/06/15 with EF of 55-60% - Follow PRP Diastolic HF: - Continue Lasix 40 mg PO daily - Acetazolamide 500 mg PO daily T2DM: - 05/06/2016 ha1c of 7.7 - Consulted pharmacy for glycemic management hx TIA: - Continue ASA 81 mg PO daily GERD: - Protonix 40 mg PO daily Restless leg syndrome: - Continue Requip 3 mg PO HS JEREMIE: - Denies CPAP/BiPAP use DVT prophylaxis: - Will leave to primary team with recent spinal surgery on 05/21 Dispo: - Discharge as per primary team - Patient is stable from medical standpoint for discharge. For discharge: Clindamycin 300 mg q8 hrs and 1 week follow-up with wound care. Thank you for this consultation. We will sign-off at this time. (Sofya Beltran PA-C) Reviewed: Pt Seen/Exam by Me, [place] Notes, Labs (Jess Link MD) History Physician Manager Market Research Supervision Note: I interviewed and examined the patient. Discussed with MIAH Beltran and agree with findings and plan as documented in the note. Any exceptions or clarifications are listed here: Pt with multiple BMs in the last day,feels markedly improved, but now with significant lower back pain since stopping FEED ADVISER pump earlier this AM and has not had any po pain meds. Itching and rash much improved since stopping Bactrim Vitals reviewed NAD, +exophthalmos RRR no mgr nl S1S2 CTAB no wcr Abd +BS soft, nondistended, NT Ext no edema, no calf tenderness on right, left BKA 65 yo male with the above history, here with constipation causing lower abd pain , lower back pain post-op from lumbar fusion. 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 Continue CLinda at least 7-10 days until seen in Wound Care CLinic Pruritis and rash: gave Benadryl, stopped Bactrim as above Met acidosis-HCO3 18-19 and stable, remains on Diamox for glaucoma Give 2 oxycodone now prior to discharge to alleviate pain until fills Rx at pharmacy Proph- SCD Documented By: Jess Link (Jess Link MD)
[2016-05-29] MEDS: VALSARTAN 80 MG TAB PO SCH (08:57)
[2016-05-29] MEDS: CHOLECALCIFEROL 1000 INTER.UNIT TAB PO SCH (08:57)
[2016-05-29] MEDS: FUROSEMIDE 40 MG TAB PO SCH (08:57)
[2016-05-29] MEDS: AcetaZOLAMIDE 500 MG CAPCR PO SCH (08:57)
[2016-05-29] MEDS: ATORVASTATIN 40 MG TAB PO SCH (08:58)
[2016-05-29] MEDS: ASPIRIN 325 MG ECTAB PO SCH (08:58)
[2016-05-29] MEDS: ASCORBIC ACID 500 MG TAB PO SCH (08:58)
[2016-05-29] MEDS: PANTOprazole SOD 40 MG TAB PO SCH (08:58)
[2016-05-29] MEDS: POLYETHYLENE (MIRALAX) 17 GM PACK PO SCH (08:58)
[2016-05-29] MEDS: CYCLOBENZAPRINE HCL 5 MG TAB PO SCH (08:58)
[2016-05-29] MEDS: DORZOLAMIDE HCL 2% OPH SOLN 10 ML BTL OPB SCH (08:59)
[2016-05-29] MEDS: INSULIN ASPART 100 UNITS/ML 3 ML PEN SC SCH ×2 (09:07→12:09)
[2016-05-29] MEDS: INSULIN GLARGINE SOLOSTAR 100 UNITS/ML 3 ML PEN SC SCH (09:08)
[2016-05-29] MEDS ORDERED: OXYC-57 PO (09:46)
--- NOTE | 2016-05-29 09:47 | Discharge Instructions ---
Discharge Instructions Admission Reason for Admission: Back Pain Discharge Discharge Diagnosis / Problem: constipation Discharge Goals Goal(s): Decrease discomfort Activity Recommendations Activity Limitations: per Instructions/Follow-up section . Instructions / Follow-Up Instructions / Follow-Up ACTIVITY RECOMMENDATIONS: SELF CARE INSTRUCTIONS AFTER THORACIC/LUMBAR FUSIONS 1. You may walk to your tolerance. It is good exercise for your legs and back. Expect some back and intermittent leg aches and pains. 2. You may perform "counter-top" level activities (make a sandwich, shea with a project, etc.). 3. No bending or lifting of more than 10 pounds or back twisting of any nature (roll like a log when turning in bed). 4. You may ride in a car for 20-30 minutes at a time. No driving until after your first visit with your doctor. 5. Frequent changes of position and restricting sitting to 30 minutes at a time will help limit the amount of back spasms and stiffness you may experience. 6. You may discontinue the use of ambulatory aids (cane, crutches, etc.) once your strength and confidence allow. 7. You may parking enforcement specialist the shower and let water strike your incision when you arrive home at least once daily. Do not take a tub bath, sit in a hot tub or go into a swimming pool until after your first recheck in the office. SPECIAL CARE INSTRUCTIONS: VERY IMPORTANT TO READ AND REVIEW A. Your surgical incision has been closed with a cosmetic suture under the skin that will dissolve in about 6 weeks. In 14 days, you can use a pair of clean scissors and cut the suture that is left outside of the skin at the ends of your incision. 1. The small skin tapes can be removed 7 days after surgery if they have not fallen off by that point. 2. You may keep the wound open to air as much as possible to promote healing after post-op day number 5 unless told otherwise by your doctor. 3. If you think the wound looks like it is becoming infected (redness or worsening drainage) and/or you are experiencing fever, chill or worsening back pain and muscle spasms, contact the office so that we may evaluate you as soon as possible. B. Complications are uncommon, but please contact us if you have any signs or symptoms of: 1. wound infection (fever higher than 102.5 degrees F, redness, separation of wound, drainage, or increasing pain from the incision) 2. blood clots in legs (pain, swelling, redness and warmth in legs) 3. urinary tract infection (fever higher than 102.5 degrees F, burning upon urination or increased frequency of urination) 4. nerve problems (inability to walk on your toes or heels, numbness, loss of bowel or bladder control) 5. any other symptoms that concern you C. Please call the office at if you have any concerns or questions about your operation or recovery. D. No smoking! Smoking drastically decreases the chance of a solid fusion. E. Do not take any anti-inflammatory medications (Indocin, Advil, Motrin, Aspirin, Naprosyn, etc.) as these may inhibit the chance of a solid fusion. Tylenol is okay to take for pain. MANAGING PAIN AFTER SPINAL SURGERY 1. Narcotic medication is intended for short-term use and will be provided for surgical pain. Surgical pain usually lasts for a period of 4-6 weeks. Narcotic medication includes Percocet, Vicodin, Darvocet, Tylenol #3 or Lortab. 2. Longer-term pain is more appropriately treated with non-narcotic medication such as Tylenol ES. 3. Muscle spasm is not appropriately treated with narcotics. Muscle relaxers such as Soma, Flexeril or Skelaxin can be used along with Tylenol ES. 4. Remember that we all live with some "aches and pains". This is not unusual or uncommon after an injury or as we get older. a. Back pain is expected and may include muscle spasms for 4 to 6 weeks after surgery. The pain should gradually improve. If the pain worsens for no apparent reason, please contact the office. b. Intermittent leg pain may also be experienced and should not be concerned about unless it worsens for no apparent reason. If so, please contact the office. 5. We will provide appropriate medication within the normal guidelines of their prescribed use. We will also be very cautious and aware of potential abuse and extended duration of patients' medication needs. a. Pain medications are for your comfort and to assist with sleep and rest so that the tissue can heal. They are not provided in order to return to normal activity and should not be used through the day. To do so or worsening pain at night can result from ongoing tissue damage and development of tolerance to the prescribed medicine. 6. Please allow 2-3 days to process refills. Prescriptions will not be mailed but must be picked up at the office. FOLLOW UP VISIT: Keep your scheduled follow-up appointment. Any questions, please call the office at . Current Hospital Diet Patient's current hospital diet: Diabetes Type 2 Diet, AHA Diet (Heart Healthy) Discharge Diet Recommended Diet: Diabetes Type 2 Diet Pending Studies Studies pending at discharge: no Laboratory Results Hemoglobin A1c Test 05/06/16 12:20 Range/Units Estimated Average Glucose 174 mg/dl Hemoglobin A1c 7.7 H 4.5-5.6 % Lipid Panel Test 05/06/16 12:20 Range/Units Triglycerides Level 132 0-150 mg/dl Cholesterol Level 126 0-200 mg/dl HDL Cholesterol 34 mg/dl Cholesterol/HDL Ratio 3.7 LDL Cholesterol, Calculated 66 mg/dl Medical Emergencies . Who to Call and When: Medical Emergencies: If at any time you feel your situation is an emergency, please call 911 immediately. . Non-Emergent Contact Non-Emergency issues call your: Surgeon . "Provider Documentation" section prepared by Ned Gibson. VTE Core Measure Inpt VTE Proph given/why not?: Aron Zhang, SCD's
[2016-05-29] MEDS: SODIUM CHLORIDE 0.9% 1000ML 1,000 ML IV SCH (09:50)
[2016-05-29 11:03] VITALS: BP 143/68; PULSE 57; TEMP 36.3; O2SAT 97
[2016-05-29] MEDS ORDERED: CLC150 PO ×2 (11:24→12:39)
--- NOTE | 2016-05-29 11:29 | Discharge Instructions ---
Discharge Instructions Admission Reason for Admission: Back Pain Discharge Discharge Diagnosis / Problem: Constipation Discharge Goals Goal(s): Decrease discomfort, Improve function, Therapeutic intervention Activity Recommendations Activity Limitations: resume your previous activity Instructions / Follow-Up Instructions / Follow-Up Wound- Take Clindamycin 300 mg by mouth every 8 hours until prescription is complete. It is important to take entire course of medication. You will be notified of a follow-up appointment with the wound clinic. This appointment should be scheduled for within 1 week. If you do not hear about appointment within the next day, please call to confirm. [phone] Constipation- Please continue taking Miralax daily. You can by this OTC- follow directions on bottle. You may also take a stool softener as needed- this medication can be bought OTC as well- follow instructions on box. Please drink plenty of fluids fluids, enough to keep urine light color/clear in color. It is important to stay well hydrated, as dehydration can worsen constipation . Please follow-up with your PCP within 5-7 days Please follow-up/keep all of your subspecialty appointments Current Hospital Diet Patient's current hospital diet: Diabetes Type 2 Diet, AHA Diet (Heart Healthy) Discharge Diet Recommended Diet: AHA Diet (Heart Healthy) Procedures Procedures Performed: 1. Lumbar spine x-ray Pending Studies Studies pending at discharge: no Laboratory Results Last 24 Hours Test 05/28/16 12:27 05/28/16 16:59 05/28/16 20:52 05/29/16 06:33 Bedside Glucose 219 mg/dl 192 mg/dl 189 mg/dl White Blood Count 5.95 K/uL Red Blood Count 3.16 M/uL Hemoglobin 9.8 g/dL Hematocrit 28.8 % Mean Corpuscular Volume 91.1 fL Mean Corpuscular Hemoglobin 31.0 pg Mean Corpuscular Hemoglobin Concent 34.0 g/dl RDW Standard Deviation 43.6 fL RDW Coefficient of Variation 13.0 % Platelet Count 222 K/uL Mean Platelet Volume 11.9 fL Sodium Level 140 mmol/L Potassium Level 3.9 mmol/L Chloride Level 110 mmol/L Carbon Dioxide Level 19 mmol/L Anion Gap 11.0 mmol/L Blood Urea Nitrogen 26 mg/dl Creatinine 1.20 mg/dl Est Creatinine Clear Calc Drug Dose 74.4 ml/min Estimated GFR () 72.1 Estimated GFR (Non- 62.2 BUN/Creatinine Ratio 22.0 Random Glucose 181 mg/dl Calcium Level 8.2 mg/dl Test 05/29/16 08:05 Bedside Glucose 188 mg/dl Hemoglobin A1c Test 05/06/16 12:20 Range/Units Estimated Average Glucose 174 mg/dl Hemoglobin A1c 7.7 H 4.5-5.6 % Lipid Panel Test 05/06/16 12:20 Range/Units Triglycerides Level 132 0-150 mg/dl Cholesterol Level 126 0-200 mg/dl HDL Cholesterol 34 mg/dl Cholesterol/HDL Ratio 3.7 LDL Cholesterol, Calculated 66 mg/dl Medical Emergencies . Who to Call and When: Medical Emergencies: If at any time you feel your situation is an emergency, please call 911 immediately. . Non-Emergent Contact Non-Emergency issues call your: Primary Care Provider Call Non-Emergent contact if: you have a fever, your pain is not controlled, your pain is worsening, your pain is unusual for you, your pain is concerning you, wound has increased drainage, wound has increased redness, wound has increased pain, you have any medication questions . . "Provider Documentation" section prepared by Sofya Beltran. VTE Core Measure Inpt VTE Proph given/why not?: Aron Zhang, SCD's
[2016-05-29] MEDS ORDERED: OXYCODONE/ACETAMINOPHEN 5-325 TAB PO ONE (12:45)
--- NOTE | 2016-06-09 10:03 | DISCHARGE SUMMARY ---
PRINCIPAL DIAGNOSIS: Uncontrolled pain. POSTOPERATIVE DIAGNOSIS: Same. ATTENDING: Dr. Ned Gibson. HISTORY OF PRESENT ILLNESS: Please refer to EMR. HOSPITAL COURSE: On 05/28/2016, Mr. Em was readmitted by Dr. Gibson to [facility] for uncontrolled pain secondary to an elective procedure done 4 days prior. He initially did well, was ambulating, pain was controlled, and he was discharged home Wednesday morning but felt that his pain became unbearable and he presented to the Emergency Department. He reported axial back pain, denying any type of fever. He was indicated for admission to the hospital. He was placed on HEALTH ASSESSMENT AND TREATMENT TEACHER pain management. PT was requested. He was put on a strict bowel regimen for bowel movement. He continued to show progress during his admission with diminished pain that was better controlled and reported several bowel movements. On 05/29/2016 after provider evaluation, he was indicated for return home. On this date, he was discharged from [facility]. DISPOSITION: Home. DISPOSITION CONDITION: Stable. COMPLICATIONS: None. DISCHARGE INSTRUCTIONS: Please refer to EMR.
[2016-09-11] MEDS ORDERED: ASCO10003 PO (11:28)
[2016-09-11] MEDS ORDERED: CALC1TAB27 PO (11:28)
[2016-10-09] MEDS ORDERED: CEPH500C2 PO (13:30)
== END 2016-05-29 12:50 | disposition home or self-care (01) | DRG 948 ==
LOC: ENRESERVTM → ENRESERVDT → EDBD 21:37 → C.EDA 21:38 → C.3E 23:14 → OBSVTOIN 05-28 13:01
PROVIDERS: ADMIT Orthopaedic Surgery Orthopaedic Surgery of the Spine; ATTEND Orthopaedic Surgery Orthopaedic Surgery of the Spine
DX: G89.18 Other acute postprocedural pain (principal); I13.0 Hypertensive heart and chronic kidney disease with heart failure and stage 1 through stage 4 chronic kidney disease, or unspecified chronic kidney disease; I50.30 Unspecified diastolic (congestive) heart failure; E87.2 Acidosis; Z98.1 Arthrodesis status; K59.03 Drug induced constipation; T40.2X5A Adverse effect of other opioids, initial encounter; T87.81 Dehiscence of amputation stump; Y83.5 Amputation of limb(s) as the cause of abnormal reaction of the patient, or of later complication, without mention of misadventure at the time of the procedure; L27.0 Generalized skin eruption due to drugs and medicaments taken internally; T37.0X5A Adverse effect of sulfonamides, initial encounter; E11.22 Type 2 diabetes mellitus with diabetic chronic kidney disease; E11.42 Type 2 diabetes mellitus with diabetic polyneuropathy; N18.3 Chronic kidney disease, stage 3 (moderate); G47.33 Obstructive sleep apnea (adult) (pediatric); G25.81 Restless legs syndrome; E78.5 Hyperlipidemia, unspecified; K21.9 Gastro-esophageal reflux disease without esophagitis; Z95.1 Presence of aortocoronary bypass graft; Z86.73 Personal history of transient ischemic attack (TIA), and cerebral infarction without residual deficits; Z89.512 Acquired absence of left leg below knee; Z79.4 Long term (current) use of insulin; Z79.82 Long term (current) use of aspirin; Z79.899 Other long term (current) drug therapy; Z88.1 Allergy status to other antibiotic agents; Z83.3 Family history of diabetes mellitus; Z82.49 Family history of ischemic heart disease and other diseases of the circulatory system; E11.3599 Type 2 diabetes mellitus with proliferative diabetic retinopathy without macular edema, unspecified eye

== ENCOUNTER → 2016-09-25 | Day surgery (SDC) | payer OTHER, MEDICARE ==
[2016-09-11 11:30] VITALS: Ht 177.8 cm; Wt 106.8 kg
[~2016-09-25] VITALS: Ht 177.8 cm; Wt 106.8 kg
[~2016-09-25] MED LIST changes: +ASCO10003 PO; -ASCO500T16 PO; +ATOR-26 PO; +CALC1TAB27 PO; +CEPH500C2 PO; -DORZ2SOL OPB; +LATA0.5S OP; +LIDOCAINE HCL 2% 2 ML VIAL (20MG/ML) ONE; -OXYC-57 PO; +PROPOFOL IV EMULSION 10 MG/ML 20 ML VIAL IV ONE; -ROSU40TA PO; +SODIUM CHLORIDE 0.9% 500ML 500 ML IV ONE; -[UNRECOGNIZED DRUG - CODE] OPB
[2016-09-25 08:22] VITALS: TEMP 36.2
--- NOTE | 2016-09-25 08:50 | Endo History and Physical ---
History & Physical Date of Service: Sep 25, 2016. Chief Complaint: screening Referring Physician: Laila BURKETT History of Present Illness 66 yo CM who presents for colonoscopy secondary to history of polyps. Past Medical History Diabetes, ASHD, Reflux, High Cholesterol, Sleep Apnea, CABG, Heart Disease, Hypertension, Kidney Disease, CVA/TIA Past Surgical History Hx Cardiac Surgery: Yes (HEART CATH-NO STENTS, CABG X 4 VESSLES) Hx Internal Defibrillator: No Hx Pacemaker: No Hx Abdominal Surgery: No Hx of Implantable Prosthesis: No Hx Post-Op Nausea and Vomiting: No Hx Cancer Surgery: No Hx Thoracic Surgery: No Hx Orthopedic: Yes (RT FOOT SX, LEFT FOOT TOE SX, LEFT BKA, LUMBAR DISCECTOMY, LUMBAR FUSION) Hx Urinary Tract Surgery: No Family History None Social History Smoking Status: Never Smoker Hx Substance Use: No Hx Alcohol Use: No Allergies Coded Allergies: Quinolones (Verified Allergy, Mild, ITCHINESS, 09/11/16) Sulfamethoxazole w/Trimethoprim (Verified Allergy, Mild, RASH, 09/11/16) Current Medications Reported Home Medications Medications Dose Route/Sig Max Daily Dose Days Date Category Dose Instructions Vitamin C (Ascorbic Acid) 1,000 Mg Tab 1 Tab PO QAM 09/11/16 Reported Calcium Magnesium & Zinc (Pcmefic-Ahbhbskmy-Pwov) 1 Tab Tab 1 Tab PO QAM 09/11/16 Reported Xalatan 0.005% Oph Elysia (Latanoprost) 0.005 % Elysia 1 Drops OP HS 05/25/16 Reported Lipitor (Atorvastatin Calcium) 80 Mg Tab 80 Mg PO HS 05/25/16 Reported Aspirin 325 Mg Ectab 1 Tab PO QAM 05/07/16 Reported Diovan (Valsartan) 80 Mg Tab 80 Mg PO QAM 04/07/16 Reported Acetazolamide Er (Acetazolamide) 500 Mg Cap 1 Tab PO BID 04/06/16 Reported Requip (Ropinirole HCl) 1 Mg Tab 2 Mg PO HS 03/24/16 Reported Novolin N (Insulin Human NPH) 100 Units/Ml Susp 20 Units SC QAM 03/24/16 Reported Novolin N (Insulin Human NPH) 100 Units/Ml Susp 30 Units SC QPM 03/24/16 Reported Novolin R (Insulin Human Regular) 100 Units/1 Ml Inj 20 Units SQ QID 03/24/16 Reported IN ADDITION TO SLIDING SCALE Lasix (Furosemide) 40 Mg Tab 40 Mg PO Q2D 03/24/16 Reported Combigan (Brimonidine Tartrate-Timolol M) 1 Elysia Elysia 1 Drop OPB BID 02/06/15 Reported Vitamin D3 (Cholecalciferol) 1,000 Unit Tab 2,000 Inter.unit PO QAM 09/05/14 Reported Prilosec (Omeprazole) 20 Mg Cap 20 Mg PO QAM 09/05/14 Reported Vital Signs Weight (Kilograms): 106.82 Height (Feet): 5 Height (Inches): 10 Date Time Temp Pulse Resp B/P (MAP) Pulse Ox O2 Delivery O2 Flow Rate FiO2 09/25/16 08:22 36.2 54 20 150/74 (99) 99 Room Air Physical Exam General Appearance: WD/WN, no apparent distress Respiratory/Chest: Auscultation: breath sounds normal Cardiovascular: Heart Auscultation: RRR Abdomen: Bowel Sounds: normal Inspection & Palpation: soft, non-distended, no tenderness, guarding & rebound Assessment and Plan Assessment: 66 yo CM who presents for colonoscopy secondary to history of polyps. Plan: Proceed with colonoscopy.
--- NOTE | 2016-09-25 09:24 | GI REPORT ---
Procedure Date: 09/25/2016 8:54 AM Procedure: Colonoscopy Indications: High risk colon cancer surveillance: Personal history of colonic polyps Medicines: Monitored Anesthesia Care Complications: No immediate complications. Estimated Blood Loss: Estimated blood loss: none. Procedure: Pre-Anesthesia Assessment: - Prior to the procedure, a History and Physical was performed, and patient medications and allergies were reviewed. The patient's tolerance of previous anesthesia was also reviewed. The risks and benefits of the procedure and the sedation options and risks were discussed with the patient. All questions were answered, and informed consent was obtained. Prior Anticoagulants: The patient has taken aspirin, last dose was 1 day prior to procedure. ASA Grade Assessment: III - A patient with severe systemic disease. After reviewing the risks and benefits, the patient was deemed in satisfactory condition to undergo the procedure. After I obtained informed consent, the scope was passed under direct vision. Throughout the procedure, the patient's blood pressure, pulse, and oxygen saturations were monitored continuously. The scope was introduced through the anus and advanced to the terminal ileum. The colonoscopy was performed without difficulty. The patient tolerated the procedure well. The quality of the bowel preparation was good. The terminal ileum, ileocecal valve, appendiceal orifice, and rectum were photographed. Findings: Three sessile polyps were found in the sigmoid colon, in the descending colon and in the ascending colon. The polyps were 4 to 6 mm in size. These polyps were removed with a hot snare. Resection and retrieval were complete. Multiple small-mouthed diverticula were found in the sigmoid colon. Non-bleeding internal hemorrhoids were found during retroflexion. The hemorrhoids were small. Impression: - Three 4 to 6 mm polyps in the sigmoid colon, in the descending colon and in the ascending colon, removed with a hot snare. Resected and retrieved. - Diverticulosis in the sigmoid colon. - Non-bleeding internal hemorrhoids. Recommendation: - Resume previous diet. - Continue present medications. - Repeat colonoscopy for surveillance based on pathology results. - Return to primary care physician as previously scheduled. Izaiah Lo DO 09/25/2016 9:23:39 AM This report has been signed electronically. Note Initiated On: 09/25/2016 8:54 AM I attest to the content of the Intraoperative Record and orders documented therein, exceptions below
--- NOTE | 2016-09-25 09:25 | Discharge Instructions ---
Endoscopy Patient Instructions Date / Procedure(s) Performed Sep 25, 2016. Colonoscopy Allergy Information Coded Allergies: Sulfa Antibiotics (Verified Allergy, Intermediate, RASH, 09/25/16) Sulfamethoxazole w/Trimethoprim (Verified Allergy, Intermediate, RASH, ) Quinolones (Verified Allergy, Mild, ITCHINESS, 09/11/16) Discharge Date / Findings Sep 25, 2016. Colon polyps Diverticulosis Internal hemorrhoids Medication Instructions Stopped Medication(s): took ASA yesterday at 08:00 OK to resume all medications today as prescribed Reported Home Medications Medications Dose Route/Sig Max Daily Dose Days Date Category Dose Instructions Vitamin C (Ascorbic Acid) 1,000 Mg Tab 1 Tab PO QAM 09/11/16 Reported Calcium Magnesium & Zinc (Tjyvmsg-Usonykwsm-Iatc) 1 Tab Tab 1 Tab PO QAM 09/11/16 Reported Xalatan 0.005% Oph Elysia (Latanoprost) 0.005 % Elysia 1 Drops OP HS 05/25/16 Reported Lipitor (Atorvastatin Calcium) 80 Mg Tab 80 Mg PO HS 05/25/16 Reported Aspirin 325 Mg Ectab 1 Tab PO QAM 05/07/16 Reported Diovan (Valsartan) 80 Mg Tab 80 Mg PO QAM 04/07/16 Reported Acetazolamide Er (Acetazolamide) 500 Mg Cap 1 Tab PO BID 04/06/16 Reported Requip (Ropinirole HCl) 1 Mg Tab 2 Mg PO HS 03/24/16 Reported Novolin N (Insulin Human NPH) 100 Units/Ml Susp 20 Units SC QAM 03/24/16 Reported Novolin N (Insulin Human NPH) 100 Units/Ml Susp 30 Units SC QPM 03/24/16 Reported Novolin R (Insulin Human Regular) 100 Units/1 Ml Inj 20 Units SQ QID 03/24/16 Reported IN ADDITION TO SLIDING SCALE Lasix (Furosemide) 40 Mg Tab 40 Mg PO Q2D 03/24/16 Reported Combigan (Brimonidine Tartrate-Timolol M) 1 Elysia Elysia 1 Drop OPB BID 02/06/15 Reported Vitamin D3 (Cholecalciferol) 1,000 Unit Tab 2,000 Inter.unit PO QAM 09/05/14 Reported Prilosec (Omeprazole) 20 Mg Cap 20 Mg PO QAM 09/05/14 Reported Provider Instructions Activity Restrictions - No exercising or heavy lifting for 24 hours. - Do not drink alcohol the day of the procedure. - Do not drive a car or operate machinery until the day after the procedure. - Do not make any important decisions or sign important papers in 24 hours after the procedure. Following Day: - Return to full activity which may include returning to work/school. Diet Start your diet with liquids and light foods (jello, soup, juice, toast). Then eat your usual diet if not nauseated. Treatment For Common After Affects For mild abdominal pain, bloating, or excessive gas: - Rest - Eat lightly - Lie on right side Follow-Up Information Follow-up with Laila BURKETT as scheduled Anesthesia Information What You Should Know You have had a procedure that required some medicine to reduce anxiety and discomfort. This treatment is called moderate sedation. After receiving the treatment, you may be sleepy, but you will be able to breathe on your own. The effects of the treatment may last for several hours. Follow these instructions along with Activity/Diet recommendations noted above: * Do NOT do anything where dizziness or clumsiness would be dangerous. * Rest quietly at home today, then you can be up and about tomorrow. * Have a responsible person stay with you the rest of today. * You may have had an I.V. today. If so, you may take the dressing off later today. Recommendations Call your doctor if: * Trouble breathing * Continuous vomiting for more than 24 hours * Temperature above 101 degrees * Severe abdominal pain or bloating * Pain not relieved by pain medicine ordered * There is increased drainage or redness from any incision * A large amount of rectal bleeding greater than 2-3 tablespoons. (If you had a polyp/s removed or have hemorrhoids, a small amount of blood - from the rectum is to be expected.) * You have any unanswered questions or concerns. IN THE EVENT OF A SERIOUS EMERGENCY, GO TO THE NEAREST EMERGENCY ROOM Your discharge instructions were prepared by provider Izaiah Lo. Patient Instructions Signature Page [place] Em Patient (or Guardian) Signature/Date: I have read and understand the instructions given to me by my caregivers. Caregiver/RN/Doctor Signature/Date: The above-named patient and/or guardian has received patient instructions on this date. + Original Patient Signature Page (only) stays with chart. Please make copy for patient.
--- NOTE | 2016-09-25 09:41 | Anesthesiology Progress Note ---
Anesthesia Post Op Note Date & Time Sep 25, 2016 at 09:40 Vital Signs Pain Intensity: 0 Vital Signs Past 12 Hours Date Time Temp Pulse Resp B/P (MAP) Pulse Ox O2 Delivery O2 Flow Rate FiO2 09/25/16 09:30 50 20 118/50 (72) 96 Room Air 09/25/16 09:23 52 20 98/44 (62) 96 Room Air 09/25/16 08:22 36.2 54 20 150/74 (99) 99 Room Air Notes Mental Status: alert / awake / arousable, participated in evaluation Pt Amnestic to Procedure: Yes Nausea / Vomiting: adequately controlled Pain: adequately controlled Airway Patency, RR, SpO2: stable & adequate BP & HR: stable & adequate Hydration State: stable & adequate Anesthetic Complications: no major complications apparent
[2016-09-25 09:46] VITALS: BP 154/69; PULSE 52; O2SAT 97
== END | disposition home or self-care (01) ==
LOC: C.GI 07:33
PROVIDERS: ATTEND Internal Medicine
DX: Z12.11 Encounter for screening for malignant neoplasm of colon (principal); Z86.010 Personal history of colon polyps; D12.5 Benign neoplasm of sigmoid colon; D12.4 Benign neoplasm of descending colon; D12.2 Benign neoplasm of ascending colon; K57.30 Diverticulosis of large intestine without perforation or abscess without bleeding; K64.8 Other hemorrhoids; E78.00 Pure hypercholesterolemia, unspecified; I25.10 Atherosclerotic heart disease of native coronary artery without angina pectoris; E11.22 Type 2 diabetes mellitus with diabetic chronic kidney disease; I12.9 Hypertensive chronic kidney disease with stage 1 through stage 4 chronic kidney disease, or unspecified chronic kidney disease; N18.9 Chronic kidney disease, unspecified; G47.33 Obstructive sleep apnea (adult) (pediatric); E66.9 Obesity, unspecified; Z88.2 Allergy status to sulfonamides; Z95.1 Presence of aortocoronary bypass graft; Z86.73 Personal history of transient ischemic attack (TIA), and cerebral infarction without residual deficits; Z98.890 Other specified postprocedural states; Z96.653 Presence of artificial knee joint, bilateral; Z79.4 Long term (current) use of insulin; Z90.89 Acquired absence of other organs

== ENCOUNTER → 2016-10-30 | Outpatient (CLI) | payer OTHER, MEDICARE ==
[~2016-10-30] MED LIST changes: -LIDOCAINE HCL 2% 2 ML VIAL (20MG/ML) ONE; -PROPOFOL IV EMULSION 10 MG/ML 20 ML VIAL IV ONE; -SODIUM CHLORIDE 0.9% 500ML 500 ML IV ONE
[2016-10-31 07:03] LABS: ESTIMATED AVERAGE GLUCOSE 148 mg/dl; HA1C FLAG Normal (Normal)
== END | disposition home or self-care (01) ==
LOC: C.LABPBG 10:45
PROVIDERS: ATTEND Neuromusculoskeletal Medicine & OMM
DX: E10.21 Type 1 diabetes mellitus with diabetic nephropathy (principal)

== ENCOUNTER 2016-11-01 20:20 | Emergency (ER) | payer OTHER, MEDICARE ==
[~2016-11-01] VITALS: Ht 177.8 cm; Wt 108.6 kg
[2016-11-01 20:30] VITALS: TEMP 36.7; Ht 177.8 cm; Wt 108.6 kg
[2016-11-01] MEDS ORDERED: PROPARACAINE HCL 0.5% OP SOLN 15 ML BTL OP STA (21:08)
--- NOTE | 2016-11-01 21:58 | EMERGENCY ROOM VISIT NOTE ---
ED Visit Note First contact with patient: 21:03 I have personally seen and evaluated the patient with the physician after school program assistant. I agree with the diagnostic/management decisions and have personally been involved in these decisions and agree with the diagnosis.
[2016-11-01] MEDS ORDERED: TOBRAMYCIN SULF 0.3% OP SOLN 5 ML BTL OP ONE (22:00)
--- NOTE | 2016-11-01 22:11 | EMERGENCY ROOM VISIT NOTE ---
ED Visit Note First contact with patient: 21:03 CHIEF COMPLAINT: Eye pain HISTORY OF PRESENT ILLNESS: This 66-year-old male patient presents to the emergency department ambulatory complaining of pain in the left eye. The patient states that he was hit in the eye with a pine branch 2 days ago. He has had persistent irritation and mild blurred vision in the eye. He states the eyes irritated and red. His symptoms worsened with bright lights. He rates the discomfort an 8/10. He does not wear contacts. The patient has not had previous injuries to this eye. Tetanus shot is up to date. The patient reports history of surgeries to relieve the pressure in his eyes and cataract surgeries bilaterally. REVIEW OF SYSTEMS: A 6 system review of systems was completed with positives and pertinent negatives listed in the HPI. ALLERGIES: Quinolones, sulfa antibiotics MEDICATIONS: See med list PMH: No pertinent past medical history other than eye surgery as documented in history of present illness. SOCIAL HISTORY: Patient lives locally with his significant other. Nonsmoker. PHYSICAL EXAM: Vital Signs: Reviewed Nurse's notes, vital signs stable. Visual acuity as documented in nursing notes. GENERAL: This is a 66-year-old male, in no acute distress, but who is uncomfortable from the eye problem. Well- developed well-nourished. EYES: The pupils are equal round and reactive to light and accommodation. EOMs are full and without tenderness. There is discharge of clear tears from the left eye which is injected. There is no foreign body visible under the eyelid even after lid eversion. Funduscopic exam reveals no hemorrhages, papilledema, or other abnormalities. No foreign body was seen embedded in the cornea under slit lamp exam. The cornea was clear and no hyphema was seen. Fluorescein uptake was observed with ultraviolet light significant for a corneal abrasion at approximately 11:00 over the iris. EMERGENCY DEPARTMENT COURSE: I examined the patient. Alcaine 2 drops were placed in the patient's left eye. A slit lamp exam was performed as above. Tobramycin drops were placed in the patient's left eye. Patient was encouraged to follow-up with his own eye doctor for further evaluation and treatment. The patient was discharged home in good condition. Medication reconciliation: I attest that I have personally reviewed the patient 's current medication list. Blood Pressure Screening: Patient was found to have a slightly elevated blood pressure due to circumstances. I do not believe that the patient requires hypertension monitoring. The patient was independently evaluated by Dr. Chung, ED attending physician, who agreed with my assessment and treatment plan. DIAGNOSIS: Corneal abrasion of the left eye Problem List Medical Problems: (1) CKD (chronic kidney disease) stage 3, GFR 30-59 ml/min Status: Chronic (2) Diabetes mellitus type 2 in obese Status: Chronic (3) Diabetic polyneuropathy Status: Chronic (4) Diastolic heart failure Permanent Comment: echo from 05/15/14 LVEF is 55-59% (normal). LV wall thickness is mildly increased (concentric). The left atrium is moderately enlarged. The left ventricular diastolic function is moderately abnormal (grade II).Mild mitral regurgitation is present. Mild tricuspid regurgitation is present Status: Chronic (5) GERD (gastroesophageal reflux disease) Status: Chronic (6) Heart disease Status: Chronic (7) History of TIA (transient ischemic attack) Status: Chronic (8) Hyperlipidemia Nec/Nos Status: Chronic (9) Hypertension Nos Status: Chronic (10) Impotence, organic Status: Chronic (11) Mild obstructive sleep apnea Status: Chronic (12) 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 Status: Chronic (13) Restless leg syndrome Status: Chronic Surgical Problems: (1) History of lumbar discectomy Permanent Comment: 01/31/09 L3-4 laminectomy with right L3-L4 discectomy Status: Resolved (2) History of tonsillectomy Status: Resolved (3) S/P CABG (coronary artery bypass graft) Permanent Comment: 01/29/[address] Willis Horne Status: Resolved Current/Historical Medications Scheduled Ynwcawc-[id number]-[id number] (Calcium Magnesium & Zinc), 1 TAB PO QAM Cholecalciferol (Vitamin D3), 2,000 INTER.UNIT PO QAM Insulin Human NPH (Novolin N), 30 UNITS SC QPM Insulin Human NPH (Novolin N), 20 UNITS SC QAM Insulin Human Regular (Novolin R), 20 UNITS SQ QID Latanoprost (Xalatan 0.005% Oph Elysia), 1 DROPS OP HS Omeprazole (Prilosec), 20 MG PO QAM Ropinirole (Requip), 2 MG PO HS Valsartan (Diovan), 80 MG PO QAM Scheduled PRN Furosemide (Lasix), 40 MG PO Q2D PRN for swelling Allergies Coded Allergies: Sulfa Antibiotics (Verified Allergy, Intermediate, RASH, 09/25/16) Sulfamethoxazole w/Trimethoprim (Verified Allergy, Intermediate, RASH, ) Quinolones (Verified Allergy, Mild, ITCHINESS, 09/11/16) Vital Signs Date Time Temp Pulse Resp B/P (MAP) Pulse Ox O2 Delivery O2 Flow Rate FiO2 11/01/16 22:24 88 20 152/76 99 11/01/16 20:30 36.7 54 18 171/70 99 Room Air Medications Administered Medications (Trade) Dose Ordered Sig/Phuc Route Start Time Stop Time Status Last Admin Dose Admin Tobramycin Sulfate (Tobrex Oph Soln) 1 drops NOW ONCE OP 11/01/16 22:00 11/01/16 22:01 DC 11/01/16 22:00 1 DROPS Departure Information Impression Primary Impression: Corneal abrasion Dispostion Home / Self-Care Condition GOOD Referrals Krish Gonzalez D.O. (PCP) Patient Instructions My [facility] Additional Instructions Use 2 drops in the left eye every 4 hours while awake for the next 3-4 days or until symptoms have completely resolved. For pain control, you can use the following [id number] medicines (if >12 yo): - Regular strength (325mg/tab) Tylenol (acetaminophen) 2 tabs every 4-6 hours as needed. Do not exceed 12 tablets in a 24 hour period. Avoid taking more than 4 grams (4000 mg) of Tylenol per day. This includes any other sources of acetaminophen you may take on a regular basis. - Regular strength (200 mg/tab) Advil (ibuprofen) 1-2 tabs every 4-6 hours as needed. Do not exceed a dose of 3200 mg per day. If you have persistent or worsening symptoms, loss of vision, or any other new/ concerning symptoms, follow-up with your eye doctor or return here for evaluation. Problem Qualifiers Primary Impression: Corneal abrasion Encounter type: initial encounter Laterality: left Qualified Codes: S05.02XA - Injury of conjunctiva and corneal abrasion without foreign body, left eye, initial encounter
[2016-11-01 22:24] VITALS: BP 152/76; PULSE 88; O2SAT 99
== END 2016-11-01 22:25 | disposition home or self-care (01) ==
LOC: C.EDB 20:21 → C.EDD 22:25
DX: S05.02XA Injury of conjunctiva and corneal abrasion without foreign body, left eye, initial encounter (principal); W22.8XXA Striking against or struck by other objects, initial encounter; N18.3 Chronic kidney disease, stage 3 (moderate); E11.9 Type 2 diabetes mellitus without complications; K21.9 Gastro-esophageal reflux disease without esophagitis; I50.9 Heart failure, unspecified; I10 Essential (primary) hypertension; E78.5 Hyperlipidemia, unspecified; G47.33 Obstructive sleep apnea (adult) (pediatric); G25.81 Restless legs syndrome; Z79.4 Long term (current) use of insulin

== ENCOUNTER → 2017-05-18 | Outpatient (CLI) | payer OTHER, MEDICARE ==
[~2017-05-18] MED LIST changes: -ACET500C12 PO; -ASCO10003 PO; -ASPEC325 PO; -ATOR-26 PO; -BRIM0.2S OPB; -CEPH500C2 PO
[2017-05-18 13:13] LABS: HEMOGLOBIN A1C 7.2 % (4.5-5.6)
== END | disposition home or self-care (01) ==
LOC: C.LABPBG 09:50
PROVIDERS: ATTEND Nurse Practitioner Family
DX: E10.9 Type 1 diabetes mellitus without complications (principal)

== ENCOUNTER → 2017-11-16 | Outpatient (CLI) | payer OTHER, MEDICARE ==
[~2017-11-16] MED LIST changes: +ACET500C12 PO; -FRS/40 PO; +NVLRB SQ; -NVLRPUC SQ
[2017-11-17 06:22] LABS: HEMOGLOBIN A1C 7.5 % (4.5-5.6)
== END | disposition home or self-care (01) ==
LOC: C.LABPBG 14:18
PROVIDERS: ATTEND Nurse Practitioner Family
DX: E10.9 Type 1 diabetes mellitus without complications (principal); E55.9 Vitamin D deficiency, unspecified

== ENCOUNTER 2019-09-06 14:09 | Inpatient (IN) ==
[2019-09-06] MEDS ORDERED: SODIUM CHLORIDE 0.9% 1000ML 1,000 ML IV SCH (15:15)
--- NOTE | 2019-09-06 15:25 | Emergency Department Note ---
Impression & Plan Syncope, Abnormal ECG ED Provider Note NAME: PATRICK HAAS AGE: 68 SEX: M : 1950 ARRIVES VIA: Walk-In INFORMANT: Patient, ED PROVIDER(S): Yony Ferrer DO CHIEF COMPLAINT: Syncope HPI: The patient is a 68-year-old male who presented to the emergency department because of multiple episodes of syncope. The patient states that this began approximately 1 month ago. He notices when he goes from a sitting to standing position or lying down to standing position that he becomes very lightheaded dizzy and passes out. He denies any vertigo symptoms. He did not strike his head he states any consistent symptoms he has had have been headache which is frontal in nature. He denies any neck pain or neck stiffness. He has had no fevers or colds. He is noticed no dysuria or frequency. He states that he has been compliant with his medications. On his most recent episode which was this past Wednesday he did sustain an abrasion to his right forearm. There is no active bleeding at this time. The patient went to see the wound care center this week for an unrelated complaint. He has a small healing area on his left stump from a previous lower extremity amputation which is healing well. He states that when he was seen at the wound care center he was told to follow-up with his family doctor about the syncope. He called his primary care physician today and was sent to the emergency department for further evaluation. He denies any black or bloody stools. He denies any abdominal pain chest pain or difficulty breathing. ROS: See above HPI for pertinent positives & negatives. A total of 10 systems reviewed and were otherwise negative. PAST MEDICAL HISTORY: See Below PAST SURGICAL HISTORY: See Below FAMILY HISTORY: See Below SOCIAL HISTORY: See Below HOME MEDICATIONS: See Below ALLERGIES: See Below VITALS: See Below PHYSICAL EXAMINATION: GENERAL: Patient is awake alert in no acute distress patient is resting comfortably and showing no signs of anxiety EYES: The conjunctivae are clear. The pupils are round and reactive. EARS, NOSE, MOUTH AND THROAT: The nose is without any evidence of any deformity. Mucous membranes are moist. Tongue is midline. NECK: The neck is nontender and supple. RESPIRATORY: Normal respiratory effort is noted there is no evidence of wheezing rhonchi or rales CARDIOVASCULAR: Regular rate and rhythm noted there no murmurs rubs or gallops normal S1 normal S2. GASTROINTESTINAL: The abdomen is soft. Abdomen is nontender. PELVIS: The Pelvis is stable. No tenderness to palpation is noted. BACK: No midline tenderness or or step-off noted range of motion in flexion extension as well as rotation no signs of muscle spasm noted MUSCULOSKELETAL/EXTREMITIES: There is a left lower extremity amputation noted. Prosthesis is in place. SKIN: Right lower extremity has pedal edema noted. Skin is warm and dry. There is no sign of cellulitis. NEUROLOGIC: Patient is awake alert and oriented x3. There is no facial droop. Strength is symmetric in both upper extremities. MEDICAL DECISION MAKING: The patient is a 68-year-old male who presented to the emergency department at the request of his primary care physician. The patient has had multiple syncopal episodes recently. These usually are related to changes in position and appear to be orthostatic in nature. The patient does have a history of coronary artery bypass grafting. I discussed the patient's laboratory and radiographic studies with him. He was treated with IV fluids in the emergency department and did feel somewhat improved. I was concerned about the patient's EKG findings. He was also found to have a detectable troponin. It is possible the patient has a cardiac cause for his syncope. Since he has had multiple episodes I do feel the patient may require further inpatient management and treatment. I discussed his case with the on-call [facility] hospitalist. They have agreed to evaluate the patient in the emergency department for further management and disposition. The patient was agreeable to evaluation by the hospitalist. Triage Nursing notes reviewed. Prior medical records reviewed Vital Signs: reviewed and remarkable for no significant abnormalities Differential diagnosis: Vasovagal event, dehydration, infection, hypoglycemia, electrolyte abnormalities, cardiac sources, intracerebral event, pulmonary embolism, seizure, toxicologic, neurologic, as well as other pathologies. ER treatment provided: See below Diagnostics interpreted by me: ECG: EKG was obtained in the emergency department. My interpretation is sinus bradycardia at 52 bpm. There was no ectopy. There were no acute ST segment elevations noted. There was a nonspecific interventricular conduction delay with lateral ST depressions noted. This was compared to a tracing from April 29 2016. No specific changes were noted. Cardiac Monitoring: An order was placed for continuous cardiac monitoring. The monitor shows a rate of 58 with sinus bradycardia rhythm. Laboratory studies: As stated above and show below. Imaging studies: See below Consultation(s): 1809: [facility] hospitalist was notified about the patient. 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 LV wall thickness is mildly increased (concentric). The left atrium is moderately enlarged. The left ventricular diastolic function is moderately abnormal (grade II).Mild mitral regurgitation is present. Mild tricuspid regurgitation is present" Diverticulosis Dyslipidemia GERD (gastroesophageal reflux disease) History of CVA (cerebrovascular accident) History of TIA (transient ischemic attack) Hypertension Impotence, organic Mild obstructive sleep apnea Pressure ulcer of BKA stump, stage 3 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 Proteinuria Restless leg syndrome Tubular adenoma of colon 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, with long-term current use of insulin Uncontrolled type 1 diabetes mellitus, with long-term current use of insulin Vitamin D deficiency Surgical History History of lumbar discectomy (Resolved) "01/31/09 L3-4 laminectomy with right L3-L4 discectomy" History of tonsillectomy (Resolved) S/P CABG x 4 (01/29/12) S/P eye surgery S/P foot surgery S/P lumbar laminectomy (05/2016) Status post below knee amputation of left lower extremity (2014) Family History Father Colorectal cancer Cardiovascular disease Diabetes Prostate cancer Grandmother (Maternal) Diabetes Mother Throat cancer Denies family history of Ovarian cancer Myocardial infarction Breast cancer Social History Preferred Language: Malagasy Communication Ability: Effective Visual Impairment: No Limitations Hearing Ability: Normal Shipping Packer Required: No Beliefs That Will Affect Care: None marital status: Current Living Situation: Spouse current occupational status: 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 Other Information That Helps Us Care for You: No Feels Safe at Home: Yes Safety Concerns: Feels Safe At This Time Smoking Status: Never smoker Hx Alcohol Use: No Hx Substance Use: No Childhood Exposure to Second-Hand Smoke: No caffeine: No during the past year weight has: remained stable Dental Care, Regularly: Yes Physical Activity Frequency: Daily Seatbelt Use: always Sunscreen Use: Yes Allergies Allergies Allergy/AdvReac Type Severity Reaction Status Date / Time Bactrim Allergy Intermediate RASH Verified 09/21/17 13:46 Sulfa (Sulfonamide Allergy Intermediate RASH Verified 09/06/19 15:40 Antibiotics) sulfamethoxazole Allergy Intermediate RASH Verified 09/06/19 15:40 trimethoprim Allergy Intermediate RASH Verified 09/06/19 15:40 Quinolones Allergy Mild ITCHINESS Verified 09/06/19 15:40 Home Meds Home Medications Medication Instructions Recorded Confirmed ascorbic acid (vitamin C) [Vitamin 4,000 mg PO DAILY 12/27/17 09/06/19 C] aspirin 325 mg PO DAILY 12/27/17 09/06/19 calcium carbonate-vitamin D3 1 tab PO DAILY 12/27/17 09/06/19 [Calcium 600 + D(3)] cholecalciferol (vitamin D3) 4,000 unit PO DAILY 12/27/17 09/06/19 [Vitamin D3] latanoprost [Xalatan] 1 drp OPHTHALMIC (EYE) PM 12/27/17 09/06/19 netarsudil [Rhopressa] 1 drp OPHTHALMIC (EYE) HS 12/27/17 09/06/19 timolol maleate 1 drp OPHTHALMIC (EYE) BID 12/27/17 09/06/19 insulin NPH isoph U-100 human 100 30 units SUBCUT .COMPLEX ml 12/12/18 09/06/19 unit/mL subcutaneous suspension insulin regular human 100 unit/mL 1 sliding scale dose SQ .COMPLEX 12/12/18 09/06/19 injection solution lancets #50 ea 12/12/18 09/05/19 omeprazole 20 mg tablet,delayed 20 mg PO DAILY #90 tab 12/12/18 09/06/19 release brimonidine 0.15 % eye drops 1 drops OP BID ml 12/14/18 09/06/19 acetazolamide 500 mg PO BID 09/06/19 09/06/19 Previous Rx's Medication Instructions Recorded tobramycin 2 drops OP Q3H #5 ml 12/27/17 furosemide 40 mg tablet 40 mg PO DAILY #90 tab 12/27/18 losartan 100 mg tablet 100 mg PO DAILY #90 tab 01/19/19 FreeStyle Farhad 14 Day [place] #1 ea NS 05/23/19 FreeStyle Farhad 14 Day Sensor ea NS 05/23/19 ropinirole 1 mg tablet 3 mg PO DAILY #360 tab 06/22/19 levofloxacin 500 mg tablet 500 mg PO DAILY #30 tab 07/04/19 atorvastatin 80 mg tablet 80 mg PO QPM #90 tab 08/08/19 blood sugar diagnostic #100 ea 08/28/19 Results & Data (ED) Vital Signs Vital Signs - 24 hr 09/06/19 14:51 09/06/19 16:46 09/06/19 16:47 Temperature 36.6 C Temperature Source Oral Pulse Rate - Lying 49 L Pulse Rate - Sitting 52 L Pulse Rate - Standing 55 L Pulse Rate 57 L Pulse Rate [Apical] Pulse Rate from SpO2 Sensor Pulse Rhythm Pulse Rhythm [Apical] Respiratory Rate 17 20 Respiratory Effort / Characteristics Non-Labored Spontaneous Respiratory Depth Normal Respiratory Pattern Blood Pressure - Lying 163/72 H Blood Pressure - Sitting 169/80 H Blood Pressure- Standing 164/69 H Blood Pressure 123/67 Blood Pressure [Right Arm] Blood Pressure Mean 85 Blood Pressure Mean [Right Arm] Pulse Oximetry 99 96 Oxygen Delivery Method Room Air Room Air Sepsis Recent Fever Within 48 Hours No Sepsis Action Taken by Nursing No Action Required 09/06/19 18:00 09/06/19 18:06 09/06/19 18:31 Temperature Temperature Source Pulse Rate - Lying Pulse Rate - Sitting Pulse Rate - Standing Pulse Rate 57 L 50 L 49 L Pulse Rate [Apical] 51 L Pulse Rate from SpO2 Sensor 50 L 49 L Pulse Rhythm Regular Pulse Rhythm [Apical] Regular Respiratory Rate 16 17 18 Respiratory Effort / Characteristics Non-Labored Spontaneous Respiratory Depth Normal Respiratory Pattern Regular Blood Pressure - Lying Blood Pressure - Sitting Blood Pressure- Standing Blood Pressure 179/76 H 204/90 H Blood Pressure [Right Arm] 179/76 H Blood Pressure Mean 102 106 Blood Pressure Mean [Right Arm] 110 Pulse Oximetry 98 98 99 Oxygen Delivery Method Room Air Room Air Room Air Sepsis Recent Fever Within 48 Hours Sepsis Action Taken by [facility] Medications Current Medication List: was personally reviewed by me Laboratory Data Attestation: I reviewed the patient's lab results. Result diagrams: 09/06/19 15:37 09/06/19 15:37 Lab Results 09/06/19 09/06/19 09/06/19 Range/Units 15:37 15:37 15:37 WBC 6.18 (4.8-10.8) K/uL RBC 4.01 L (4.7-6.1) M/uL Hgb 12.6 L (14.0-18.0) g/dL Hct 38.5 L (42-52) % MCV 96.0 (80-100) fL MCH 31.4 (25-34) pg MCHC 32.7 (32-36) g/dL RDW Std Deviation 46.6 H (36.4-46.3) fL RDW Coeff of [place] 13.3 (11.5-14.5) % Plt Count 151 (130-400) K/uL MPV 12.5 H (7.4-10.4) fL Immature Gran % (Auto) 0.2 % Neut % (Auto) 77.9 % Lymph % (Auto) 12.6 % [place] % (Auto) 7.8 % Eos % (Auto) 1.3 % Baso % (Auto) 0.2 % Immature Gran # (Auto) 0.01 (0.00-0.02) K/uL Neut # (Auto) 4.82 (1.4-6.5) K/uL Lymph # (Auto) 0.78 L (1.2-3.4) K/uL [place] # (Auto) 0.48 (0.11-0.59) K/uL Eos # (Auto) 0.08 (0-0.5) K/uL Baso # (Auto) 0.01 (0-0.2) K/uL PT 11.5 (9.0-12.0) Seconds INR 1.1 (0.9-1.1) APTT 28.5 (21.0-31.0) Seconds PTT Ratio 1.0 VBG pH (7.36-7.41) VBG pCO2 (38-50) mmHg VBG pO2 mmHg VBG HCO3 mmol/L VBG O2 Saturation % VBG Base Excess mEq/L Barometric Pressure mm/Hg Sodium 143 (136-145) mmol/L Potassium 4.1 (3.5-5.1) mmol/L Chloride 119 H (98-107) mmol/L Carbon Dioxide 18 L (21-32) mmol/L Anion Gap 6.0 (3-11) BUN 26 H (7-18) mg/dl Creatinine 1.66 H (0.6-1.4) mg/dl Est Cr Clr Drug Dosing Not Reportable Est GFR ( Amer) 47.7 Est GFR (Non-Af Amer) 41.1 BUN/Creatinine Ratio 15.9 (10-20) Glucose 146 H (70-99) mg/dl Calcium 8.1 L (8.5-10.1) mg/dl Magnesium 2.4 (1.8-2.4) mg/dl Total Bilirubin 0.4 (0.2-1) mg/dl AST 18 (15-37) U/L ALT 35 (12-78) U/L Alkaline Phosphatase 113 (45-117) U/L Total Creatine Kinase 266 (39-308) U/L CK-MB (CK-2) 10.3 H (0.5-3.6) ng/ml CK/CKMB % Calc 3.9 H (0-3.0) Troponin I 0.015 (0-0.045) ng/ml Total Protein 6.3 L (6.4-8.2) gm/dl Albumin 3.0 L (3.4-5.0) gm/dl Globulin 3.3 (2.5-4.0) gm/dl Albumin/Globulin Ratio 0.9 (0.9-2) Lipase 86 (73-393) U/L TSH 1.420 (0.300-4.500) uIu/ml Urine Color Urine Appearance (Clear) Urine pH (4.5-7.5) Ur Specific [place] (1.000-1.030) Urine Protein (Negative) Urine Glucose (UA) (Negative) Urine Ketones (Negative) Urine Blood (Negative) Urine Nitrite (Negative) Urine Bilirubin (Negative) Urine Urobilinogen (Negative) Ur Leukocyte Esterase (Negative) Urine WBC (Auto) (0-5) /hpf Urine RBC (Auto) (0-4) /hpf U Hyaline Cast (Auto) (0-5) /lpf U Epithel Cells (Auto) (0-5) /lpf Urine Bacteria (Auto) (Negative) Hepatitis C Ab Screen (Neg) 09/06/19 09/06/19 09/06/19 Range/Units 15:37 16:38 16:50 WBC (4.8-10.8) K/uL RBC (4.7-6.1) M/uL Hgb (14.0-18.0) g/dL Hct (42-52) % MCV (80-100) fL MCH (25-34) pg MCHC (32-36) g/dL RDW Std Deviation (36.4-46.3) fL RDW Coeff of Jose (11.5-14.5) % Plt Count (130-400) K/uL MPV (7.4-10.4) fL Immature Gran % (Auto) % Neut % (Auto) % Lymph % (Auto) % [place] % (Auto) % Eos % (Auto) % Baso % (Auto) % Immature Gran # (Auto) (0.00-0.02) K/uL Neut # (Auto) (1.4-6.5) K/uL Lymph # (Auto) (1.2-3.4) K/uL [place] # (Auto) (0.11-0.59) K/uL Eos # (Auto) (0-0.5) K/uL Baso # (Auto) (0-0.2) K/uL PT (9.0-12.0) Seconds INR (0.9-1.1) APTT (21.0-31.0) Seconds PTT Ratio VBG pH 7.26 L (7.36-7.41) VBG pCO2 45 (38-50) mmHg VBG pO2 26 mmHg VBG HCO3 20 mmol/L VBG O2 Saturation < 60.0 % VBG Base Excess -7.1 mEq/L Barometric Pressure 735.6 mm/Hg Sodium (136-145) mmol/L Potassium (3.5-5.1) mmol/L Chloride (98-107) mmol/L Carbon Dioxide (21-32) mmol/L Anion Gap (3-11) BUN (7-18) mg/dl Creatinine (0.6-1.4) mg/dl Est Cr Clr Drug Dosing Est GFR ( Amer) Est GFR (Non-Af Amer) BUN/Creatinine Ratio (10-20) Glucose (70-99) mg/dl Calcium (8.5-10.1) mg/dl Magnesium (1.8-2.4) mg/dl Total Bilirubin (0.2-1) mg/dl AST (15-37) U/L ALT (12-78) U/L Alkaline Phosphatase (45-117) U/L Total Creatine Kinase (39-308) U/L CK-MB (CK-2) (0.5-3.6) ng/ml CK/CKMB % Calc (0-3.0) Troponin I (0-0.045) ng/ml Total Protein (6.4-8.2) gm/dl Albumin (3.4-5.0) gm/dl Globulin (2.5-4.0) gm/dl Albumin/Globulin Ratio (0.9-2) Lipase (73-393) U/L TSH (0.300-4.500) uIu/ml Urine Color Yellow Urine Appearance Clear (Clear) Urine pH 6.5 (4.5-7.5) Ur Specific [place] 1.014 (1.000-1.030) Urine Protein 3+ H (Negative) Urine Glucose (UA) Negative (Negative) Urine Ketones Negative (Negative) Urine Blood Negative (Negative) Urine Nitrite Negative (Negative) Urine Bilirubin Negative (Negative) Urine Urobilinogen Negative (Negative) Ur Leukocyte Esterase Negative (Negative) Urine WBC (Auto) 1-5 (0-5) /hpf Urine RBC (Auto) 0-4 (0-4) /hpf U Hyaline Cast (Auto) 1-5 (0-5) /lpf U Epithel Cells (Auto) 0-5 (0-5) /lpf Urine Bacteria (Auto) Negative (Negative) Hepatitis C Ab Screen Neg (Neg) Administered Medications Acetazolamide (Diamox Sequels) 500 mg PO BID [facility] Stop: 10/06/19 20:59 Last Admin: 09/06/19 21:58 Dose: 500 mg Documented by: [id number] Atorvastatin Calcium (Lipitor) 80 mg PO QPM AR Stop: 10/06/19 20:59 Last Admin: 09/06/19 22:01 Dose: 80 mg Documented by: [id number] Brimonidine Tartrate (Alphagan-P 0.15%) 1 drops OP BID AR Stop: 10/06/19 20:59 Last Admin: 09/06/19 21:55 Dose: Not Given Documented by: [id number] Heparin Sodium (Porcine) (Heparin Sodium (Porcine)) 5,000 units SQ Q8 AR Stop: 10/06/19 21:59 Last Admin: 09/06/19 22:10 Dose: 5,000 units Documented by: [id number] Cosigned by: [id number] Insulin Aspart (Novolog Flexpen) 0 units SC ACHS AR Stop: 10/06/19 20:59 Last Admin: 09/06/19 22:12 Dose: Not Given Documented by: [id number] Cosigned by: [id number] Latanoprost (Xalatan Oph) 1 drops OP PM AR Stop: 10/06/19 20:59 Last Admin: 09/06/19 21:55 Dose: Not Given Documented by: [id number] Miscellaneous (Order Awaiting Action) 1 ea N/A QS [facility] Stop: 10/06/19 20:44 Last Admin: 09/07/19 00:08 Dose: Not Given Documented by: [id number] Admin: 09/06/19 21:54 Dose: Not Given Documented by: [id number] Ropinirole HCl (Requip) 2 mg PO HS AR Stop: 10/06/19 20:59 Last Admin: 09/06/19 21:59 Dose: 2 mg Documented by: [id number] Timolol Maleate (Timoptic-Xe 0.5% Oph) 1 drops OP BID AR Stop: 10/06/19 20:59 Last Admin: 09/06/19 22:00 Dose: Not Given Documented by: [id number] Discontinued Medications Hydralazine HCl (Hydralazine Hcl) 10 mg IV NOW STA Stop: 09/06/19 23:26 Last Admin: 09/06/19 23:34 Dose: 10 mg Documented by: [id number] Sodium Chloride (Nss 1000ml) 1,000 mls @ 999 mls/hr IV .Q1H1M AR Stop: 09/06/19 16:15 Last Infusion: 09/06/19 18:06 Dose: 0 mls/hr Documented by: [id number] Admin: 09/06/19 16:02 Dose: 999 mls/hr Documented by: [id number] Insulin Glargine (Lantus Solostar Pen) 15 units SC ONE ONE Stop: 09/06/19 22:31 Last Admin: 09/06/19 22:19 Dose: 15 units Documented by: [id number] Cosigned by: [id number] Imaging Data Radiologist's Impression: XR chest 1V portable HISTORY: 68 years-old Male syncope acute syncope COMPARISON: CT abdomen and pelvis 03/24/2018 TECHNIQUE: Portable AP view of the chest FINDINGS: Cardiac silhouette is enlarged. Prior median sternotomy. Mild chronic interstitial coarsening of the lung bases. No pneumothorax, pleural effusion, airspace consolidation or overt pulmonary edema. The bones of the chest appear grossly intact. Degenerative changes of the shoulders and spine. Thoracolumbar sigmoidal scoliosis. Lumbar spine fusion hardware. IMPRESSION: Cardiomegaly without acute process. ACT 112: Negative or not required by law. The above report was generated using voice recognition software. It may contain grammatical, syntax or spelling errors. Electronically signed by: Ricky Buck M.D. 09/06/2019 3:33 PM Dictated: 09/06/19 1531 Transcribed: 09/06/[address] DOSE: 884.08 mGy.cm HISTORY: syncope TECHNIQUE: Multiaxial CT images of the head were performed without the use of intravenous contrast. Automated exposure control was utilized for this study. A dose lowering technique was utilized adhering to the principles of ALARA. Comparison: Head CT 06/05/2015. Findings: The paranasal sinuses and mastoid air cells are clear. The calvarium and skull base are intact. There is no mass, hematoma, midline shift, acute infarct. White matter hypodensity is nonspecific but suggestive of microvascular ischemic change. The ventricles and sulci demonstrate mild age-related involutional changes. Impression: No acute intracranial abnormality. Atrophy and microvascular ischemic changes. ACT 112: Negative or not required by law. Electronically signed by: Abilio Soto M.D. 09/06/2019 4:17 PM Dictated: 09/06/19 1612 Transcribed: 09/06/19 1612 Blood Pressure Blood Pressure Findings: Normal blood pressure Discharge Plan Visit Data *Final* Discharge Date/Time: 09/06/19 20:10 Chief Complaint: Hypertension Stated Complaint: HYPERTENSION ED Provider: Yony Ferrer Discharge Problem: Syncope, Abnormal ECG Patient Disposition: Admitted As Inpatient Condition: Good Discharge Instructions Interventions: ED Discharge Assessment Last Done: 09/06/19 20:10
--- NOTE | 2019-09-06 15:35 | XRay Report ---
XR chest 1V portable HISTORY: 68 years-old Male syncope acute syncope COMPARISON: CT abdomen and pelvis 03/24/2018 TECHNIQUE: Portable AP view of the chest FINDINGS: Cardiac silhouette is enlarged. Prior median sternotomy. Mild chronic interstitial coarsening of the lung bases. No pneumothorax, pleural effusion, airspace consolidation or overt pulmonary edema. The b ones of the chest appear grossly intact. Degenerative changes of the shoulders and spine. Thoracolumb ar sigmoidal scoliosis. Lumbar spine fusion hardware. IMPRESSION: Cardiomegaly without acute process. ACT 112: Negative or not required by law. The above report was generated using voice recognition software. It may contain grammatical, syntax o r spelling errors. Electronically signed by: Ricky Buck M.D. 09/06/2019 3:33 PM
[2019-09-06 15:47] LABS: Basophils # (auto) 0.01 K/uL (0-0.2); Basophils % (auto) 0.2 %; Eosinophils # (auto) 0.08 K/uL (0-0.5); Eosinophils % (auto) 1.3 %; Hematocrit (blood only) 38.5 % (42-52); Hemoglobin 12.6 g/dL (14.0-18.0); Immature Granulocytes # (auto) 0.01 K/uL (0.00-0.02); Immature Granulocytes % (auto) 0.2 %; Lymphocytes # (auto) 0.78 K/uL (1.2-3.4); Lymphocytes % (auto) 12.6 %; Mean Corpuscular Hemoglobin 31.4 pg (25-34); Mean Corpuscular Hgb Conc 32.7 g/dL (32-36); Mean Platelet Volume 12.5 fL (7.4-10.4); Monocytes # (auto) 0.48 K/uL (0.11-0.59); Monocytes % (auto) 7.8 %; Neutrophils # (auto) 4.82 K/uL (1.4-6.5); Neutrophils % (auto) 77.9 %; Platelet Count 151 K/uL (130-400); RDW Coefficient of Variation 13.3 % (11.5-14.5); RDW Standard Deviation 46.6 fL (36.4-46.3); Red Blood Count 4.01 M/uL (4.7-6.1); White Blood Count 6.18 K/uL (4.8-10.8)
[2019-09-06 16:00] LABS: INR 1.1 (0.9-1.1); Partial Thromboplastin Time 28.5 Seconds (21.0-31.0); Prothrombin Time 11.5 Seconds (9.0-12.0)
[2019-09-06 16:04] LABS: Alanine Aminotransferase 35 U/L (12-78); Aspartate Aminotransferase 18 U/L (15-37); BUN Creatinine Ratio 15.9 (10-20); Blood Urea Nitrogen 26 mg/dl (7-18); Calcium 8.1 mg/dl (8.5-10.1); Carbon Dioxide 18 mmol/L (21-32); Chloride 119 mmol/L (98-107); Est GFR (African American) 47.7; Est GFR (Non-African American) 41.1; Glucose 146 mg/dl (70-99); Lipase 86 U/L (73-393); Magnesium 2.4 mg/dl (1.8-2.4); Potassium 4.1 mmol/L (3.5-5.1); Sodium 143 mmol/L (136-145)
[2019-09-06 16:15] LABS: Albumin Globulin Ratio 0.9 (0.9-2); Alkaline Phosphatase 113 U/L (45-117); Bilirubin,Total 0.4 mg/dl (0.2-1); Creatine Kinase 266 U/L (39-308); Creatine Kinase MB 10.3 ng/ml (0.5-3.6); Globulin 3.3 gm/dl (2.5-4.0); Total Protein 6.3 gm/dl (6.4-8.2); Troponin I 0.015 ng/ml (0-0.045)
--- NOTE | 2019-09-06 16:18 | CT Scan Report ---
HEAD CT NONCONTRAST CT DOSE: 884.08 mGy.cm HISTORY: syncope TECHNIQUE: Multiaxial CT images of the head were performed without the use of intravenous contrast. A utomated exposure control was utilized for this study. A dose lowering technique was utilized adheri ng to the principles of ALARA. Comparison: Head CT 06/05/2015. Findings: The paranasal sinuses and mastoid air cells are clear. The calvarium and skull base are int act. There is no mass, hematoma, midline shift, acute infarct. White matter hypodensity is nonspecifi c but suggestive of microvascular ischemic change. The ventricles and sulci demonstrate mild age-rela cam involutional changes. Impression: No acute intracranial abnormality. Atrophy and microvascular ischemic changes. ACT 112: Negative or not required by law. Electronically signed by: Abilio Soto M.D. 09/06/2019 4:17 PM
[2019-09-06 16:51] LABS: Base Excess VBG -7.1 mEq/L; HCO3 VBG 20 mmol/L; PCO2 VBG 45 mmHg (38-50); PO2 VBG 26 mmHg; pH VBG 7.26 (7.36-7.41)
[2019-09-06 16:57] LABS: Oxygen Saturation VBG < 60.0 %
[2019-09-06 17:02] LABS: Appearance Urine Clear (Clear); Bacteria Urine Automated Negative (Negative); Bilirubin Urine Negative (Negative); Blood Urine Negative (Negative); Color Urine Yellow; Epithelial Cell Urine Auto 0-5 /lpf (0-5); Glucose Urine UA Negative (Negative); Ketones Urine Negative (Negative); Leukocyte Esterase Urine Negative (Negative); Nitrite Urine Negative (Negative); Protein Urine 3+ (Negative); RBC Urine Automated 0-4 /hpf (0-4); Specific Gravity Urine 1.014 (1.000-1.030); Urobilinogen Urine Negative (Negative); pH Urine 6.5 (4.5-7.5)
--- NOTE | 2019-09-06 18:49 | History & Physical Report ---
Date of Service September 06, 2019 Assessment & Plan (1) Dizziness: Appears to be orthostatic by history but no significant drop in BP in ER Monitor on telemetry TTE Possible correlation with levaquin use but no improvement over the last few days and unclear mechanism for this being the cause Acidosis noted on VBG with hypochloremia ?from acetazolamide. Will get ABG to further assess metabolic acidosis. No recent changes to acetazolamide dosing noted. Given appears to be blood pressure related at present will defer further neurological workup at this time, consider carotid US, MRI brain, neuro consult if cause still unclear after above workup. (2) Syncope: Appears to be related to dizziness episodes above. See above workup. In addition to dizziness he has multiple other reasons to be unbalanced with amputation peripheral neuropathy, diabetic retinopathy and glaucoma however none adequately explain acuity of his dizziness. (3) Abnormal ECG: RSR pattern in V1. Will get TTE as above and monitor on telemetry Possible bradycardia affected by his timolol eye drops but not recent change to this to explain dizziness above (4) Uncontrolled type 1 diabetes mellitus, with long-term current use of insulin: Consult pharmacy glycemic control for basal bolus insulin control Usual total dose of insulin around 130 units per day HbA1C in AM (5) Diabetic peripheral 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: Noted history of this. Not on any medications (6) Hypertension: Continue Lasix and acetazolamide. High blood pressure in the ER possibly anxiety related. (7) Restless leg syndrome: Continue 3mg ropinirole at HS (8) Pressure ulcer of BKA stump, stage 3: Recently on Levaquin for this. Not examined as it was dressed and patient reports it has been improving and recent picture from wound care in EHR. Continue routine wound care (9) CAD, multiple vessel: Continue ASA, not on BB presumably due to bradycardia, continue losartan, atorvastatin (10) CKD (chronic kidney disease) stage 3, GFR 30-59 ml/min: Continue losartan. Appears to be at baseline Monitor BMP (11) 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: Noted (12) Glaucoma: s/p stents continue acetazolomide, rhopressa, brimonidine, latanoprost, timolol (13) GERD (gastroesophageal reflux disease): Switch omeprazole to pantoprazole as per hospital formulary (14) DVT prophylaxis: Heparin 5000 units SQ q8h History of Present Illness Chief Complaint: Lightheaded, syncope Primary Care Provider: Leah Wolf DO [place] is a 68 year old male admission for ongoing positional dizziness and recurrent syncopal episodes. He reports his episodes started 4 weeks ago and have been getting progressively worse. Initially occurring approximately 3 times a day but now it is almost everytime he is standing. He reports always falling backwards. The dizziness is a feeling like he is going to pass out rather than the room spinning the majority of the time. The only time it has occurred while lying flat was just now coming out from the CT scan but otherwise is is very positional in nature and he cannot reproduce it while lying down and moving his head from side to side. No associated blurring of vision. Over this time period he has had three occasions of syncope. The last one was on Wednesday while he was lying down under the car on cardboard he slid himself out and went to stand up holding on to the car door. He does not remember falling but woke up on the floor. He denies any recent changes to an anti-hypertensives medications; he is on multiple but reports his blood pressure is usually high rather than low. He has been on acetazolamide for years for his glaucoma with no recent changes to this medication. He takes lasix otherwise his right leg and hands swell. Only new medication has been Levaquin which he is no longer taking. This was started around the same time period as his symptoms. Allergies Allergy/AdvReac Type Severity Reaction Status Date / Time Bactrim Allergy Intermediate RASH Verified 09/21/17 13:46 Sulfa (Sulfonamide Allergy Intermediate RASH Verified 09/06/19 15:40 Antibiotics) sulfamethoxazole Allergy Intermediate RASH Verified 09/06/19 15:40 trimethoprim Allergy Intermediate RASH Verified 09/06/19 15:40 Quinolones Allergy Mild ITCHINESS Verified 09/06/19 15:40 Home Medications Home Medications Medication Instructions Recorded Confirmed Type ascorbic acid (vitamin C) [Vitamin 4,000 mg PO DAILY 12/27/17 09/06/19 History C] aspirin 325 mg PO DAILY 12/27/17 09/06/19 History calcium carbonate-vitamin D3 1 tab PO DAILY 12/27/17 09/06/19 History [Calcium 600 + D(3)] cholecalciferol (vitamin D3) 4,000 unit PO DAILY 12/27/17 09/06/19 History [Vitamin D3] latanoprost [Xalatan] 1 drp OPHTHALMIC (EYE) PM 12/27/17 09/06/19 History netarsudil [Rhopressa] 1 drp OPHTHALMIC (EYE) HS 12/27/17 09/06/19 History timolol maleate 1 drp OPHTHALMIC (EYE) BID 12/27/17 09/06/19 History tobramycin 2 drops OP Q3H #5 ml 12/27/17 09/06/19 Rx insulin NPH isoph U-100 human 100 30 units SUBCUT .COMPLEX ml 12/12/18 09/06/19 History unit/mL subcutaneous suspension insulin regular human 100 unit/mL 1 sliding scale dose SQ .COMPLEX 12/12/18 09/06/19 History injection solution lancets #50 ea 12/12/18 09/05/19 History omeprazole 20 mg tablet,delayed 20 mg PO DAILY #90 tab 12/12/18 09/06/19 History release brimonidine 0.15 % eye drops 1 drops OP BID ml 12/14/18 09/06/19 History furosemide 40 mg tablet 40 mg PO DAILY #90 tab 12/27/18 09/06/19 Rx losartan 100 mg tablet 100 mg PO DAILY #90 tab 01/19/19 09/06/19 Rx FreeStyle Farhad 14 Day [place] #1 ea NS 05/23/19 09/05/19 Rx FreeStyle Farhad 14 Day S[place] ea NS 05/23/19 09/05/19 Rx ropinirole 1 mg tablet 3 mg PO DAILY #360 tab 06/22/19 09/06/19 Rx levofloxacin 500 mg tablet 500 mg PO DAILY #30 tab 07/04/19 09/06/19 Rx atorvastatin 80 mg tablet 80 mg PO QPM #90 tab 08/08/19 09/06/19 Rx blood sugar diagnostic #100 ea 08/28/19 09/05/19 Rx acetazolamide 500 mg PO BID 09/06/19 09/06/19 History Past Med/Surg History Medical History CAD, multiple vessel CKD (chronic kidney disease) stage 3, GFR 30-59 ml/min DDD (degenerative disc disease), lumbar Diabetes mellitus type 1, uncontrolled Diabetic nephropathy Diabetic peripheral 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 Diastolic heart failure "echo from 05/15/14 LVEF is 55-59% (normal). LV wall thickness is mildly increased (concentric). The left atrium is moderately enlarged. The left ventricular diastolic function is moderately abnormal (grade II).Mild mitral regurgitation is present. Mild tricuspid regurgitation is present" Diverticulosis Dyslipidemia GERD (gastroesophageal reflux disease) History of CVA (cerebrovascular accident) History of TIA (transient ischemic attack) Hypertension Impotence, organic Mild obstructive sleep apnea Pressure ulcer of BKA stump, stage 3 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 Proteinuria Restless leg syndrome Tubular adenoma of colon 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, with long-term current use of insulin Uncontrolled type 1 diabetes mellitus, with long-term current use of insulin Vitamin D deficiency Surgical History History of lumbar discectomy (Resolved) "01/31/09 L3-4 laminectomy with right L3-L4 discectomy" History of tonsillectomy (Resolved) S/P CABG x 4 (01/29/12) S/P eye surgery S/P foot surgery S/P lumbar laminectomy (05/2016) Status post below knee amputation of left lower extremity (2014) Family History Father Colorectal cancer Cardiovascular disease Diabetes Prostate cancer Grandmother (Maternal) Diabetes Mother Throat cancer Denies family history of Ovarian cancer Myocardial infarction Breast cancer Social History Preferred Language: Kazakh Communication Ability: Effective Visual Impairment: No Limitations Hearing Ability: Normal Inside Steward/Stewardess Required: No Beliefs That Will Affect Care: None marital status: Current Living Situation: Spouse current occupational status: retired 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 Other Information That Helps Us Care for You: No Feels Safe at Home: Yes Safety Concerns: Feels Safe At This Time Smoking Status: Never smoker Hx Alcohol Use: No Hx Substance Use: No Childhood Exposure to Second-Hand Smoke: No caffeine: No during the past year weight has: remained stable Dental Care, Regularly: Yes Physical Activity Frequency: Daily Seatbelt Use: always Sunscreen Use: Yes Review of Systems Review of Systems: All systems reviewed & are unremarkable except as noted in HPI & below Physical Exam Constitutional: well developed, well nourished and + obese; no acute distress Eyes: PERRL, conjunctivae normal, anicteric sclerae EOM intact bilaterally ENMT: external ear and nose normal, oropharynx normal Respiratory: normal respiratory effort, lungs clear to auscultation Cardiovascular: Rate/Rhythm: regular rate and regular rhythm Heart Sounds: no murmur Vessels: no JVD Extremities: normal capillary refill and + pedal edema (2+ right leg up to knee); no calf tenderness Gastrointestinal (Abdomen): normal bowel sounds, soft, nontender, no hepatosplenomegaly Musculoskeletal: no cyanosis or clubbing, extremities motor strength 5/5 Skin: no rashes, warm and dry Neurologic: moves all extremities and awake; no focal motor deficits Motor/Sensory: + sensory deficit (peripheral neuropathy) Psychiatric: A+Ox3, euthymic affect Results & Data Results & Data ([facility]) Vital Signs (Past 12 Hours) Vital Signs Temp Pulse Pulse Resp BP BP Pulse Ox 09/06/19 18:00 57 L 51 L 16 179/76 H 98 09/06/19 16:47 20 96 09/06/19 14:51 36.6 C 57 L 17 123/67 99 Diagnostic Findings XR chest 1V portable IMPRESSION: Cardiomegaly without acute process. HEAD CT NONCONTRAST Impression: No acute intracranial abnormality. Atrophy and microvascular ischemic changes. ECG Indication: bradycardia and syncope Rate (beats per minute): 52 Rhythm: sinus bradycardia Findings: + other (RSR patter in V1); no acute ischemic change Comparison ECG Date: from (04/29/2016) Change: no significant change Code Status & VTE Plan Code Status Full VTE Prophylaxis Plan VTE Prophylaxis will be ordered: Yes PG Care Time/CCT Total # of Minutes Spent Total Time Spent with Patient: Total time spent is greater than 50% in coordination of care (as documented) at patient's floor/unit and/or counseling patient: Coding Level of Care Code 48816 Initial Inpt Care Lvl 3 Diagnoses Dizziness R42 Syncope R55 Syncope type: unspecified Abnormal ECG R94.31 Uncontrolled type 1 diabetes mellitus, with long-term current use of insulin E10.65 Diabetic peripheral 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 E10.42 Hypertension I10 Restless leg syndrome G25.81 Pressure ulcer of BKA stump, stage 3 T87.89; L89.893 CAD, multiple vessel I25.10 CKD (chronic kidney disease) stage 3, GFR 30-59 ml/min N18.3 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 E11.3599 Glaucoma H40.9 GERD (gastroesophageal reflux disease) K21.9 DVT prophylaxis Z29.9 (1) Syncope Syncope type: unspecified Qualified Code(s): R55 - Syncope and collapse
[2019-09-06] MEDS ORDERED: PHARMACY GLYCEMIC MGMT CONSULT PRN (20:14)
[2019-09-06] MEDS ORDERED: PATIENT'S HEIGHT AND/OR WEIGHT NEEDED SCH (20:15)
[2019-09-06] MEDS ORDERED: DEXTROSE 50% 50 ML SYRINGE IV PRN (20:45)
[2019-09-06] MEDS ORDERED: CARBOHYDRATES FOR HYPOGLYCEMIA PO PRN (20:45)
[2019-09-06] MEDS ORDERED: GLUCOSE 40% GEL 15 GM TUBE PO PRN (20:45)
[2019-09-06] MEDS ORDERED: GLUCAGON FOR INJ 1 MG VIAL SQ PRN (20:45)
[2019-09-06] MEDS ORDERED: GLUCOSE 10 TABS/TUBE PO PRN (20:45)
[2019-09-06] MEDS ORDERED: ROPINIROLE HCL 1 MG TABLET PO SCH (21:00)
[2019-09-06] MEDS ORDERED: INSULIN GLARGINE SOLOSTAR 100 UNITS/ML 3 ML PEN SC SCH (21:00)
[2019-09-06 21:44] LABS: Base Excess ABG -7.2 mEq/L (-9-1.8); HCO3 ABG 17 mmol/L (19-24); Oxygen Saturation ABG 98.5 % (90-95); PCO2 ABG 28 mmHg (35-46); PO2 ABG 119 mmHg (80-95); pH ABG 7.39 (7.35-7.45)
[2019-09-06 21:45] LABS: Allen Test Pos (Pos)
[2019-09-06] MEDS: RHOPRESSA~ORDER AWAITING ACTION SCH (21:54)
[2019-09-06] MEDS: LATANOPROST 0.005% OP SOLN 2.5 ML BTL OP SCH (21:55)
[2019-09-06] MEDS: BRIMONIDINE TARTRATE-P 0.15% 5 ML BTL OP SCH (21:55)
[2019-09-06] MEDS: acetaZOLAMIDE 500 MG CAPCR PO SCH (21:58)
[2019-09-06] MEDS: ROPINIROLE HCL 1 MG TABLET PO SCH (21:59)
[2019-09-06] MEDS: TIMOLOL GFS 0.5% OPH SOLN 74 DROPS/5 ML BTL OP SCH (22:00)
[2019-09-06] MEDS: ATORVASTATIN 40 MG TAB PO SCH (22:01)
[2019-09-06] MEDS: HEPARIN SOD 5,000 UNIT/0.5 ML VIAL SQ SCH (22:10)
[2019-09-06] MEDS: INSULIN ASPART 100 UNITS/ML 3 ML PEN SC SCH (22:12)
[2019-09-06] MEDS ORDERED: INSULIN GLARGINE SOLOSTAR 100 UNITS/ML 3 ML PEN SC ONE (22:30)
[2019-09-06] MEDS ORDERED: HydrALAZINE HCL 20 MG/ML VIAL IV STA (23:25)
[2019-09-07] MEDS: RHOPRESSA~ORDER AWAITING ACTION SCH ×3 (00:08→17:19)
[2019-09-07] MEDS ORDERED: INSULIN ASPART 100 UNITS/ML 3 ML PEN SC ONE (02:00)
[2019-09-07] MEDS: HEPARIN SOD 5,000 UNIT/0.5 ML VIAL SQ SCH ×3 (05:34→21:32)
[2019-09-07 07:22] LABS: Basophils # (auto) 0.01 K/uL (0-0.2); Basophils % (auto) 0.2 %; Eosinophils % (auto) 1.8 %; Hematocrit (blood only) 39.1 % (42-52); Hemoglobin 13.1 g/dL (14.0-18.0); Immature Granulocytes # (auto) 0.01 K/uL (0.00-0.02); Immature Granulocytes % (auto) 0.2 %; Lymphocytes # (auto) 1.06 K/uL (1.2-3.4); Lymphocytes % (auto) 18.8 %; Mean Corpuscular Hemoglobin 31.8 pg (25-34); Mean Corpuscular Hgb Conc 33.5 g/dL (32-36); Mean Corpuscular Volume 94.9 fL (80-100); Mean Platelet Volume 12.7 fL (7.4-10.4); Monocytes # (auto) 0.47 K/uL (0.11-0.59); Monocytes % (auto) 8.3 %; Neutrophils # (auto) 3.98 K/uL (1.4-6.5); Neutrophils % (auto) 70.7 %; Platelet Count 149 K/uL (130-400); RDW Coefficient of Variation 13.2 % (11.5-14.5); RDW Standard Deviation 45.9 fL (36.4-46.3); Red Blood Count 4.12 M/uL (4.7-6.1); White Blood Count 5.63 K/uL (4.8-10.8)
[2019-09-07 07:57] LABS: Albumin Level 2.9 gm/dl (3.4-5.0); BUN Creatinine Ratio 17.2 (10-20); Calcium 8.4 mg/dl (8.5-10.1); Creatinine Clr Calc Pharmacy 60.2 ml/min; Est GFR (African American) 61.8; Est GFR (Non-African American) 53.3; Potassium 3.5 mmol/L (3.5-5.1)
[2019-09-07] MEDS: INSULIN ASPART 100 UNITS/ML 3 ML PEN SC SCH ×4 (08:00→21:30)
[2019-09-07] MEDS: acetaZOLAMIDE 500 MG CAPCR PO SCH ×2 (08:01→21:22)
[2019-09-07] MEDS: LOSARTAN POTASSIUM 50 MG TAB PO SCH (08:01)
[2019-09-07 08:02] LABS: Albumin Globulin Ratio 0.9 (0.9-2); Bilirubin,Total 0.6 mg/dl (0.2-1); Globulin 3.1 gm/dl (2.5-4.0); Troponin I 0.018 ng/ml (0-0.045)
[2019-09-07] MEDS: ASCORBIC ACID 500 MG TAB PO SCH (08:02)
[2019-09-07] MEDS: PANTOprazole 40 MG TAB PO SCH (08:02)
[2019-09-07] MEDS: CALCIUM 600MG + VIT D 400 IU TAB PO SCH (08:02)
[2019-09-07] MEDS: ASPIRIN 325 MG ECTAB PO SCH (08:02)
[2019-09-07] MEDS: CHOLECALCIFEROL 1,000 UNITS 25 MCG TAB PO SCH (08:03)
[2019-09-07] MEDS: TIMOLOL GFS 0.5% OPH SOLN 74 DROPS/5 ML BTL OP SCH ×2 (08:04→21:21)
[2019-09-07] MEDS: BRIMONIDINE TARTRATE-P 0.15% 5 ML BTL OP SCH ×2 (08:04→21:20)
[2019-09-07] MEDS: ROPINIROLE HCL 1 MG TABLET PO SCH ×2 (08:05→21:23)
[2019-09-07 08:38] LABS: Estimated Average Glucose 171 mg/dl; Hemoglobin A1C 7.6 % (4.5-5.6)
[2019-09-07] MEDS ORDERED: FUROSEMIDE 40 MG TAB PO SCH (09:00)
--- NOTE | 2019-09-07 11:34 | Pharmacy Report ---
Glycemic Control Consultation - Date of Service September 07, 2019 - Scope Scope: Glycemic Pharmacist consulted for glycemic control and to write orders per [facility] inpatient glycemic control protocol. - Objective Weight: 105 kg Accalexecks BSG (last 24hrs): 09/06/19 09/06/19 09/07/19 15:37 22:07 01:34 Glucose 146 H POC Glucose 74 105 H 09/07/19 09/07/19 06:54 07:37 Glucose 98 POC Glucose 100 H Laboratory Data (last 24hrs): 09/06/19 09/07/19 15:37 06:54 Potassium 4.1 3.5 Carbon Dioxide 18 L 15 L Anion Gap 6.0 8.0 Creatinine 1.66 H 1.34 D Est Cr Clr Drug Dosing Not Reportable 60.2 HbA1c: Hemoglobin A1c 7.6 % (4.5-5.6) H 09/07/19 06:54 - Recent Pertinent Medications Outpatient Anti-diabetic Regimen: * NPH 30 units with breakfast and 30 units with dinner * Regular insulin SS at Breakfast (20-30units), Lunch (5-20 units) and Dinner (~20 units) * Usual total daily dose from all insulin ~ 130 units per day * A1c = 7.6 % on 09/07/19 The patient received yesterday: * Basal insulin: Lantus 15 units at bedtime * Correctional Insulin: Novolog Correction per scale ACHS Goal Range: Low 110 mg/dL - High 140 mg/dL Correction Factor: 20 mg/dL/unit * Prandial insulin: Per carb ratio of 1 unit per 7 grams CHO consumed * Oral Agents: None - Assessment & Plan Assessment & Plan: ASSESSMENT: * 68 y/o M admitted for recurrent syncope. Patient is a Type 1 diabetic managed at home by NPH and Regular insulins. * Patient said he checks his BSGs two to three times a day depending on how he feels. His NPH dose is always the same - 30 units with Breakfast and Dinner everyday. * He took his NPH dose yesterday morning before he was admitted here in the hospital. * Patient said he would like to continue on NPH and Regular at home since it is less expensive than Lantus and other insulins he has tried in the past. * He received one dose of Lantus 15 units last night but he is now ordered NPH BID. PLAN FOR INPATIENT GLYCEMIC CONTROL: * Basal insulin * NPH based on scale SQ BID with meals: if BSG less than 120 = give 0 units if BSG 120-150 = give 15 units if BSG 151-200 = give 20 units if BSG greater than 200 = give 25 units * Bolus insulin * NovoLog per scale ACHS or Q6hrs while NPO * Goal Range: Low 110 mg/dL - High 140 mg/dL * Correction Factor: 20 mg/dL/unit * Nutritional / Prandial insulin per carb ratio of 1 unit per 7 grams CHO consumed * Please note that the plan above was derived based on current level of insulin resistance and hospital stress. These recommendations are appropriate for inpatient admission only. Plan of care upon discharge will need to be reassessed to avoid potential outpatient hypo/hyperglycemia. Thank you.
[2019-09-07] MEDS ORDERED: INSULIN HUMAN NPH SC ONE (12:30)
--- NOTE | 2019-09-07 15:22 | XCELERA ---
[id number]
--- NOTE | 2019-09-07 16:32 | Hospitalist Progress Note ---
Date of Service September 07, 2019 Assessment & Plan (1) Dizziness: 68yo gentleman with new onset syncope, dizziness and headache. Dizziness: -Described as positional, always spinning never lightheaded, and when first moving, associated with L frontal headache. -DDx includes BPPV vs. brain tumor vs. severe aortic stenosis vs. effect of peripheral neuropathy with glaucoma vs. other -Echo unremarkable except some moderate concentric LVH -CT Head unremarkable, MRI pending -PT for possible BPPV. -neurology consult Syncope: -Appears to be related to dizziness episodes above. -workup as above DM: -HgbA1c of 6.7 -Hold home meds, ISS Hypertension: -Continue Lasix and acetazolamide. Restless leg syndrome: -Continue 3mg ropinirole at HS Pressure ulcer of BKA stump, stage 3: -Recently on Levaquin for this. -Continue routine wound care CAD, multiple vessel: -Continue ASA, continue losartan, atorvastatin CKD (chronic kidney disease) stage 3, GFR 30-59 ml/min: -Continue losartan. Appears to be at baseline Glaucoma: -s/p stents -continue acetazolomide, rhopressa, brimonidine, latanoprost, timolol GERD (gastroesophageal reflux disease): -Switch omeprazole to pantoprazole as per hospital formulary CODE STATUS: Full FEN/GI: DMII diet DVT prophylaxis: Heparin 5000 units SQ q8h Admission and Anticipated Discharge Date Admission Date: September 06, 2019 Supervising Physician Co-Signing Physician Notes I personally examined the patient and verified all rivera points of history and exam, discussed case, and agree with decision making with Dr Carlson. dizzy - moving sensation not lightheaded - like the world is moving - all when first getting up / first standing up /etc -- settles once he's up and steady. intense enough to make him fall. happens getting out of bed, getting up from chair, getting up from working under car. frontal headaches - intense come on without warning gone in about 5-10mins NOT correlated to dizziness. vitals noted nad heent nc at mmm breathing unlabored no accessory muscles good effort skin no rashes no pallor or icterus LLE absent BKA. no focal neuro deficits dizziness - suspect severe BPPV given that it only occurs with abrupt position change. does not appear safe yet due to fall risk. PT eval and treat, likely to need vestibular retraining. MRI brain for completeness since dizzy and headaches (while symptomatically unrelated) seem to have started around the same time headaches - likely cluster. discussed treatment, for now we both agree watchful waiting otherwise as above Subjective Pt seen this AM. Extremely concerned about this new onset dizziness with left frontal headache. States the dizziness is when he's trying to sit up or swing his feet to the ground from bed to get into 's power chair. Denies any SOB, chest pain, ear ringing or nausea or vomitting. Review of Systems Review of Systems: All systems reviewed & are unremarkable except as noted in Subjective Physical Exam Physical Exam: General: Alert, oriented. No acute distress Skin: No noted rashes or bruises Psych: Appropriate mood and affect Neuro: No gross deficits HEENT: NC/AT, PERRLA, EOMI, oropharynx moist. Chest: Nontender to palpation. CV: RRR, Normal s1, s2. No murmurs appreciated Resp: Breath sounds clear bilaterally, no increased effort of breathing. No crackles/rhonchi/rales. Abdomen: BS+. Soft, nontender, nondistended. No guarding. No organomegaly gigi reciated. Extremities: No edema in lower extremities bilaterally. Results & Data Results & Data ([facility]) Vital Signs (Past 12 Hours) Vital Signs Temp Pulse Pulse Resp BP Pulse Ox 09/07/19 15:58 36.8 C 55 L 18 165/76 H 93 09/07/19 10:00 36.8 C 96 09/07/19 07:45 57 L 09/07/19 07:41 36.5 C 52 L 18 160/79 H 98 Resident Activity Tracking Resident Involvement: Resident Care Provided Care Provided: Adult Hospital Medicine
[2019-09-07] MEDS: INSULIN HUMAN NPH SC SCH (17:19)
--- NOTE | 2019-09-07 19:30 | Billing Data ---
Date of Service September 07, 2019 Coding Level of Care Code 93908 Subseq Hosp Care Lvl 3
--- NOTE | 2019-09-07 20:07 | XRay Report ---
ORBIT RADIOGRAPHS 3 VIEWS HISTORY: pre-MRI screening. COMPARISON: 03/31/2018 FINDINGS: There are no radiopaque foreign bodies identified within the orbits. IMPRESSION: No radiopaque foreign bodies identified within the orbits. ACT 112: Negative or not required by law. Electronically signed by: Valdez Landry M.D. 09/07/2019 8:05 PM
[2019-09-07] MEDS ORDERED: GADOBUTROL 65ML VIAL IV PRN (20:34)
--- NOTE | 2019-09-07 20:51 | Magnetic Resonance Report ---
MRI OF THE BRAIN WITHOUT AND WITH IV CONTRAST CLINICAL HISTORY: new onset dizziness with headache COMPARISON STUDY: Noncontrast head CT dated 09/06/2019 TECHNIQUE: MRI of the brain was performed from the vertex to the skull base utilizing various T1 and T2 weighted sequences. Following the IV administration of 10 mL of Gadavist contrast, additional enha nced images were obtained. FINDINGS: Sagittal T1, axial diffusion, proton density and T2 weighted axial, coronal FLAIR, and pre and post a xial T1-weighted images were acquired. These were supplemented with post gadolinium coronal T1 weight ed images. No intra or extra-axial mass lesions are visualized. Axial diffusion-weighted images reveal no evidence of acute or subacute infarction. There is no evidence of ventricular dilatation. Proton density T2-weighted and FLAIR images reveal scattered foci of increased T2 signal within the w sam matter, likely on a small vessel basis. There are no abnormal flow voids. There is no evidence of pathologic enhancement. Heterogeneous signal within the posterior sagittal si nus likely relates to flow related artifact IMPRESSION: 1. No acute intracranial findings 2. No evidence of acute or subacute infarction 3. No evidence of intracranial mass ACT 112: Negative or not required by law. Electronically signed by: Valdez Landry M.D. 09/07/2019 8:50 PM
[2019-09-07] MEDS: LATANOPROST 0.005% OP SOLN 2.5 ML BTL OP SCH (21:22)
[2019-09-07] MEDS: ATORVASTATIN 40 MG TAB PO SCH (21:24)
--- NOTE | 2019-09-07 21:58 | Electrocardiogram Report ---
Test Reason : Blood Pressure : / mmHG Vent. Rate : 052 BPM Atrial Rate : 052 BPM P-R Int : 202 ms QRS Dur : 100 ms QT Int : 458 ms P-R-T Axes : 050 018 100 degrees QTc Int : 425 ms Sinus bradycardia RSR' or QR pattern in V1 suggests right ventricular conduction delay Nonspecific ST and T wave abnormality Abnormal ECG When compared with ECG of 29-APR-2016 17:13, RSR' pattern in V1 is now Present QT has lengthened Confirmed by Umair Krause ([id number]) on 09/07/2019 9:58:21 PM Referred By: REFERRED SELF Confirmed By:Umari Krause
[2019-09-08] MEDS: RHOPRESSA~ORDER AWAITING ACTION SCH ×2 (00:13→08:50)
[2019-09-08] MEDS: HEPARIN SOD 5,000 UNIT/0.5 ML VIAL SQ SCH (05:50)
[2019-09-08 06:00] LABS: Basophils # (auto) 0.01 K/uL (0-0.2); Basophils % (auto) 0.2 %; Eosinophils # (auto) 0.08 K/uL (0-0.5); Eosinophils % (auto) 1.5 %; Hematocrit (blood only) 38.3 % (42-52); Hemoglobin 12.7 g/dL (14.0-18.0); Immature Granulocytes # (auto) 0.02 K/uL (0.00-0.02); Immature Granulocytes % (auto) 0.4 %; Lymphocytes # (auto) 0.94 K/uL (1.2-3.4); Lymphocytes % (auto) 18.1 %; Mean Corpuscular Hemoglobin 31.3 pg (25-34); Mean Corpuscular Hgb Conc 33.2 g/dL (32-36); Mean Corpuscular Volume 94.3 fL (80-100); Mean Platelet Volume 12.4 fL (7.4-10.4); Monocytes # (auto) 0.45 K/uL (0.11-0.59); Monocytes % (auto) 8.7 %; Neutrophils % (auto) 71.1 %; Platelet Count 143 K/uL (130-400); RDW Coefficient of Variation 13.2 % (11.5-14.5); RDW Standard Deviation 45.4 fL (36.4-46.3); Red Blood Count 4.06 M/uL (4.7-6.1)
[2019-09-08 06:31] LABS: BUN Creatinine Ratio 17.3 (10-20); Calcium 8.1 mg/dl (8.5-10.1); Creatinine Clr Calc Pharmacy 48.1 ml/min; Est GFR (Non-African American) 40.5; Potassium 3.7 mmol/L (3.5-5.1)
[2019-09-08] MEDS ORDERED: SODIUM CHLORIDE 0.9% 500 ML IV SCH (08:00)
[2019-09-08] MEDS: INSULIN ASPART 100 UNITS/ML 3 ML PEN SC SCH ×2 (08:42→12:18)
[2019-09-08] MEDS: INSULIN HUMAN NPH SC SCH (08:43)
[2019-09-08] MEDS: ASPIRIN 325 MG ECTAB PO SCH (08:50)
[2019-09-08] MEDS: LOSARTAN POTASSIUM 50 MG TAB PO SCH (08:50)
[2019-09-08] MEDS: PANTOprazole 40 MG TAB PO SCH (08:50)
[2019-09-08] MEDS: ROPINIROLE HCL 1 MG TABLET PO SCH (08:51)
[2019-09-08] MEDS: CHOLECALCIFEROL 1,000 UNITS 25 MCG TAB PO SCH (08:51)
[2019-09-08] MEDS: ASCORBIC ACID 500 MG TAB PO SCH (08:51)
[2019-09-08] MEDS: acetaZOLAMIDE 500 MG CAPCR PO SCH (08:52)
[2019-09-08] MEDS: CALCIUM 600MG + VIT D 400 IU TAB PO SCH (08:52)
[2019-09-08] MEDS: BRIMONIDINE TARTRATE-P 0.15% 5 ML BTL OP SCH (08:52)
[2019-09-08] MEDS: TIMOLOL GFS 0.5% OPH SOLN 74 DROPS/5 ML BTL OP SCH (08:52)
--- NOTE | 2019-09-08 09:10 | Neurology Consultation ---
Date of Consultation September 08, 2019 Assessment & Plan (1) Peripheral positional vertigo: Patient has a one-month history of progressive (in frequency and severity) episodes of positional vertigo going from lying/sitting to standing lasting up to 10 seconds, unaccompanied by syncope or altered mental status, seizure activity, or headache. I believe he has benign paroxysmal positional vertigo. He has no other focal neurologic signs, meningeal signs, or encephalopathy. MRI of the brain shows no stroke (new or old) or tumor and the IAC's were unremarkable. (2) Diabetic peripheral 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: Patient has a severe polyneuropathy secondary to diabetes which is fairly stable. I would assume that he has additional balance problems (sensory ataxia) from this problem in addition to his imbalance secondary to his dictation/prosthesis. Recommendations: 1. Meclizine 25 milligrams 3 times a day as needed. 2. Consider physical therapy-vestibular therapy as an outpatient 3. I see no need for additional neurologic testing at this time and would be happy to follow him in several weeks as an outpatient. Overall, I spent a total of 100 minutes with this case including review of records, review of MRI films, direct evaluation the patient bedside, and discussing the case with the patient at bedside, RN at bedside, and Dr. salvador now are including differential diagnosis and treatment options. History of Present Illness Reason for Consultation: This patient is a 68-year-old, who I was asked to see at the request of Dr. Carlson, for neurologic consultation regarding positional vertigo. Requesting Physician: Dr. Carlson Attending Physician: Wilfred Nelson DO History of Present Illness Patient has a 32 year history of diabetes, currently insulin dependent, associated with polyneuropathy, nephropathy, and retinopathy. He is post left below-knee amputation 2014. The patient also has a history of diastolic congestive heart failure and coronary artery disease post coronary artery bypass graft in 2011. He has a history of hypertension, dyslipidemia, obstructive sleep apnea of a mild nature, restless legs syndrome, and vitamin-D deficiency. Patient carries a diagnosis of previous stroke. When I ask about this he says that in in the past he had a severe headache centered around his left eye lasting weeks. He was told that he had had a mini-stroke but this was never i nvestigated otherwise. In 1998, patient underwent MRI of the brain and MR angiography of the head and neck , ordered by Dr. Rosas, because of left facial pain. There was no stroke. Starting somewhat gradually a month ago he had the onset of episodes of vertigo with position change. They would occur at most once per day then gradually over time they became multiple per day until about 2 weeks ago when he noticed these episodes occurring just about every time he stood up quick. They could occur when he goes from a lying to a standing position or a seated to a standing position. When he goes slow and takes his time it is not as severe. When he gets up quick there is a very severe vertigo that can last up to 10 seconds. He does not feel pulled towards any one particular direction, but could randomly feel like he is falling over. On occasion he loses his balance and goes over quickly. He may black out for a second, but he has never had complete loss of consciousness or altered awareness of his situation. Turning his head from side to side does not trigger the episodes. Bending forward and straightening does. Patient does not describe his episodes as a lightheadedness. He is very adamant about whirling and spinning but cannot tell me if it is clockwise or counter clockwise. The patient denies ringing in his ears or tinnitus ear pain, or hearing bilaterally. Denies double vision or other new vision, weakness or numbness of a new nature in the limbs, headaches mood, mentation, or speech problems. He arrived at the emergency room September 05 at 1451 temperature 36.6, pulse of 57 regular, respiratory rate 17, blood pressure 123/67, and O2 saturation 99 percent. He had no focal neurologic signs or altered mental status/confusion on examination in the emergency room. CBC showed some mild anemia and BUN and creatinine were mildly elevated. Glucose was 146 and the rest of the Chem profile TSH were unremarkable. Urinalysis was unremarkable. Blood pressure and pulse going from lying to sitting to standing did not result in any orthostasis noted. Echocardiogram showed a moderate concentric left ventricular hypertrophy and ejection fraction of 50-55 percent. Apparently the echocardiogram showed no significant change compared to the previous study of 2016. MRI of the brain was obtained with without contrast and showed some mild generalized atrophy and very mild nonspecific small vessel ischemic disease. He had no evidence of stroke (new or old), tumor, or any other abnormality in the internal auditory canals. This morning the patient still has some positional vertigo but it is milder. CBC and Chem profile were relatively unchanged and hemoglobin A1c was 7.6. Blood pressure is 142/71. Allergies Allergy/AdvReac Type Severity Reaction Status Date / Time Bactrim Allergy Intermediate RASH Verified 09/21/17 13:46 Sulfa (Sulfonamide Allergy Intermediate RASH Verified 09/06/19 15:40 Antibiotics) sulfamethoxazole Allergy Intermediate RASH Verified 09/06/19 15:40 trimethoprim Allergy Intermediate RASH Verified 09/06/19 15:40 Quinolones Allergy Mild ITCHINESS Verified 09/06/19 15:40 Home Medications Home Medications Medication Instructions Recorded Confirmed Type ascorbic acid (vitamin C) [Vitamin 4,000 mg PO DAILY 12/27/17 09/06/19 History C] aspirin 325 mg PO DAILY 12/27/17 09/06/19 History calcium carbonate-vitamin D3 1 tab PO DAILY 12/27/17 09/06/19 History [Calcium 600 + D(3)] cholecalciferol (vitamin D3) 4,000 unit PO DAILY 12/27/17 09/06/19 History [Vitamin D3] latanoprost [Xalatan] 1 drp OPHTHALMIC (EYE) PM 12/27/17 09/06/19 History netarsudil [Rhopressa] 1 drp OPHTHALMIC (EYE) HS 12/27/17 09/06/19 History timolol maleate 1 drp OPHTHALMIC (EYE) BID 12/27/17 09/06/19 History tobramycin 2 drops OP Q3H #5 ml 12/27/17 09/06/19 Rx insulin NPH isoph U-100 human 100 30 units SUBCUT .COMPLEX ml 12/12/18 09/06/19 History unit/mL subcutaneous suspension insulin regular human 100 unit/mL 1 sliding scale dose SQ .COMPLEX 12/12/18 09/06/19 History injection solution lancets #50 ea 12/12/18 09/05/19 History omeprazole 20 mg tablet,delayed 20 mg PO DAILY #90 tab 12/12/18 09/06/19 History release brimonidine 0.15 % eye drops 1 drops OP BID ml 12/14/18 09/06/19 History furosemide 40 mg tablet 40 mg PO DAILY #90 tab 12/27/18 09/06/19 Rx losartan 100 mg tablet 100 mg PO DAILY #90 tab 01/19/19 09/06/19 Rx FreeStyle Farhad 14 Day [place] #1 ea NS 05/23/19 09/05/19 Rx FreeStyle Farhad 14 Day Sensor ea NS 05/23/19 09/05/19 Rx ropinirole 1 mg tablet 3 mg PO DAILY #360 tab 06/22/19 09/06/19 Rx levofloxacin 500 mg tablet 500 mg PO DAILY #30 tab 07/04/19 09/06/19 Rx atorvastatin 80 mg tablet 80 mg PO QPM #90 tab 08/08/19 09/06/19 Rx blood sugar diagnostic #100 ea 08/28/19 09/05/19 Rx acetazolamide 500 mg PO BID 09/06/19 09/06/19 History Patient History Medical History CAD, multiple vessel CKD (chronic kidney disease) stage 3, GFR 30-59 ml/min DDD (degenerative disc disease), lumbar Diabetes mellitus type 1, uncontrolled Diabetic nephropathy Diabetic peripheral 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 Diastolic heart failure "echo from 05/15/14 LVEF is 55-59% (normal). LV wall thickness is mildly increased (concentric). The left atrium is moderately enlarged. The left ventricular diastolic function is moderately abnormal (grade II).Mild mitral regurgitation is present. Mild tricuspid regurgitation is present" Diverticulosis Dyslipidemia GERD (gastroesophageal reflux disease) History of CVA (cerebrovascular accident) History of TIA (transient ischemic attack) Hypertension Impotence, organic Mild obstructive sleep apnea Pressure ulcer of BKA stump, stage 3 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 Proteinuria Restless leg syndrome Tubular adenoma of colon 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, with long-term current use of insulin Uncontrolled type 1 diabetes mellitus, with long-term current use of insulin Vitamin D deficiency Surgical History History of lumbar discectomy (Resolved) "01/31/09 L3-4 laminectomy with right L3-L4 discectomy" History of tonsillectomy (Resolved) S/P CABG x 4 (01/29/12) S/P eye surgery S/P foot surgery S/P lumbar laminectomy (05/2016) Status post below knee amputation of left lower extremity (2014) Family History Father , age 78 with prostate cancer Colorectal cancer Cardiovascular disease Diabetes Prostate cancer Grandmother (Maternal) Diabetes Mother , age 54 of throat cancer Throat cancer Denies family history of Ovarian cancer Myocardial infarction Breast cancer Social History Preferred Language: Vietnamese Communication Ability: Effective Visual Impairment: No Limitations Hearing Ability: Normal [place]uer Required: No Beliefs That Will Affect Care: None marital status: Current Living Situation: Spouse current occupational status: retired 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 Feels Safe at Home: Yes Safety Concerns: Feels Safe At This Time Smoking Status: Never smoker Hx Alcohol Use: No Hx Substance Use: No Childhood Exposure to Second-Hand Smoke: No caffeine: No during the past year weight has: remained stable Dental Care, Regularly: Yes Physical Activity Frequency: Daily Seatbelt Use: always Sunscreen Use: Yes Review of Systems Constitutional: no fever, no fatigue and no weakness Eyes: no diplopia, no eye pain and no worsening vision Ear, Nose, Mouth, Throat: + dizziness; no ear pain, no tinnitus, no hearing loss, no hoarseness and no dysphagia Respiratory: no cough and no dyspnea Cardiovascular: no chest pain, no palpitations and no lightheadedness Gastrointestinal: no abdominal pain, no nausea and no vomiting Genitourinary: no dysuria and no urinary incontinence Musculoskeletal: no back pain, no neck pain, no radicular pain, no joint pain and no myalgia Integumentary: no rash and no lesions Neurologic: + gait abnormality; no localized weakness, no generalized weakness, no tingling, no numbness, no tremor(s), no abnormal movements, no headache(s), no abnormal speech, no confusion and no memory loss Psychiatric: no depression, no irritability, no anxiety, no difficulty concentrating, no confusion and no hallucinations Endocrine: no fatigue and no flushing Hematologic / Lymphatic: no easy bleeding and no easy bruising Allergy / Immunological: no urticaria and no problem reported Exam (Neuro) Physical Exam: The patient is right-handed. The patient is awake, alert, and attentive. Speech is normal without any aphasia or dysarthria. She can name objects, repeat phrases, and has normal spontaneous speech. Mentation and thought processes are intact, with orientation to person, place and time, and normal fund of knowledge. Attention and concentration are normal. Mood and affect are normal and appropriate. General appearance and grooming are normal. Short and long-term memory are intact. The discs are sharp with positive venous pulsations bilaterally. Pupils are 4 mm bilaterally and reactive to light. Extraocular eye muscles are intact without nystagmus. Visual acuity and visual sterling seem normal grossly to confrontation. There are no deficits to sensation in the face in all 3 distributions of the fifth cranial nerve bilaterally. Corneal reflexes are positive bilaterally. Facial strength and symmetry was normal bilaterally. Hearing seems normal to whisper and finger rub bilaterally. Palate moves well without asymmetry. There is normal sternocleidomastoid and trapezius (shoulder shrug) strength bilaterally. Tongue is midline with good strength bilaterally. Neck has a full range of motion without discomfort. There are no cervical bruits bilaterally. There are no cranial or ocular bruits. Heart is without murmur. There is a regular rhythm and rate. Cervical, thoracic, and lumbar spine are nontender to palpation. Gait is cautious any limbs because of his prosthesis for his left leg. Otherwise his stance and balance was normal. When he went from a sitting to standing position slowly he had a 2nd or so of nonspecific vertiginous feelings and extraocular eye muscles were intact without nystagmus. With outstretched arms there is no drift. There are no resting, postural, or action tremors. There is no ataxia with finger to nose testing. There is good facility in the hands. No other abnormal involuntary movements are noted. Motor strength is 5/5 diffusely in the arms bilaterally including deltoids, biceps, triceps, brachioradialis, wrist flexors and extensors, solar energy systems engineer, and intrinsic hand muscles. Motor strength is 5/5 diffusely in the right leg including hip flexors, quadriceps, hamstrings, gastrocnemius, tibialis anterior, tibialis posterior, and Peroneii muscles. The left lower extremity has 5/5 strength in the hip flexors and quadriceps and hamstrings. He has a left below- knee amputation. Toe extensors are mildly weak at 4/5 on the right. The limbs have good tone without rigidity or spasticity. There is atrophy noted in the distal muscles of the hands and the diffusely. Sensory examination reveals decreased sensation to pin and touch in in the right foot Reflexes are 0/4 in the biceps, triceps, brachioradialis, and quadriceps tendons bilaterally. The right Achilles tendon reflex was absent as well. Toes are downgoing with plantar stimulation on the right. There is no peripheral edema noted in the limbs. Results & Data ([facility]) Vital Signs (Past 12 Hours) Vital Signs Temp Pulse Pulse Resp BP BP Pulse Ox 09/08/19 07:51 36.6 C 47 L 20 142/71 H 97 09/08/19 07:28 50 L 09/08/19 04:00 36.5 C 62 18 142/88 H 93 09/07/19 23:52 55 L 09/07/19 23:00 36.6 C 67 18 150/73 H 92 Diagnostic Findings [place], [place] [phone] Magnetic Resonance Report Patient: PATRICK HAAS Date: 09/06/19 MR#: [id number]: [address] Acct ID:[id number]: Date: 1950ty Zip: [place] [address] Age: 68Location: 2W Sex: M Room/Bed: [facility] Att Phy: Wilfred Nelson D.O.Diagnosis: RECURRENT SYNCOPE Minal Phy: Leah Wolf, DOService Date: 09/07/19 Fam Phy:Interpreting Phy: Valdez Landry MD Admit Phy: Jake Ware MD Ordering Phy: Luz Carlson MD cc: ~ MRI OF THE BRAIN WITHOUT AND WITH IV CONTRAST CLINICAL HISTORY: new onset dizziness with headache COMPARISON STUDY: Noncontrast head CT dated 09/06/2019 TECHNIQUE: MRI of the brain was performed from the vertex to the skull base utilizing various T1 and T2 weighted sequences. Following the IV administration of 10 mL of Gadavist contrast, additional enhanced images were obtained. FINDINGS: Sagittal T1, axial diffusion, proton density and T2 weighted axial, coronal FLAIR, and pre and post axial T1-weighted images were acquired. These were supplemented with post gadolinium coronal T1 weighted images. No intra or extra-axial mass lesions are visualized. Axial diffusion-weighted images reveal no evidence of acute or subacute infarction. There is no evidence of ventricular dilatation. Proton density T2-weighted and FLAIR images reveal scattered foci of increased T2 signal within the white matter, likely on a small vessel basis. There are no abnormal flow voids. There is no evidence of pathologic enhancement. Heterogeneous signal within the posterior sagittal sinus likely relates to flow related artifact IMPRESSION: 1. No acute intracranial findings 2. No evidence of acute or subacute infarction 3. No evidence of intracranial mass ACT 112: Negative or not required by law. Electronically signed by: Valdez Landry M.D. 09/07/2019 8:50 PM PG Care Time/CCT Total # of Minutes Spent Total Time Spent with Patient: Total time spent is greater than 50% in coordination of care (as documented) at patient's floor/unit and/or counseling patient: Coding Level of Care Code 12335 Initial Inpt Care Lvl 3 Diagnoses Peripheral positional vertigo H81.399 Diabetic peripheral 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 E10.42 Time Spent (min) 100 Comment Add [id number] to the [id number]
--- NOTE | 2019-09-08 09:35 | Pharmacy Report ---
Pharmacy Glycemic Short Note 2 - Date of Service September 08, 2019 - Glycemic Short BSG Results (Last 24 hours): 09/07/19 09/07/19 09/07/19 11:49 16:26 20:48 Glucose POC Glucose 146 H 143 H 123 H 09/08/19 09/08/19 05:43 07:34 Glucose 96 POC Glucose 92 OUTPATIENT ANTIDIABETIC REGIMEN: * NPH 30 units with breakfast and 30 units with dinner * Regular insulin SS at Breakfast (20-30units), Lunch (5-20 units) and Dinner (~20 units) * Usual total daily dose from all insulin ~ 130 units per day * A1c = 7.6 % on 09/07/19 INPATIENT INSULIN REGIMEN AND CAUSES OF INSULIN RESISTANCE: ASSESSMENT: * 68 y/o male with T1DM admitted for recurrent syncope * He received 44 units of insulin yesterday (of note: also received 15 units of Lantus on 09/05 PM) * BSGs have been stable, no significant change to causes of insulin resistance * Current basal needs estimated between 30-40 units per day (~1/2 of outpatient regimen) PLAN FOR INPATIENT GLYCEMIC CONTROL: * Basal insulin * NPH 15-30 units SQ BID per an ordered scale * Patient will only receive 30 units if BSG > 180 mg/dL * Bolus insulin * NovoLog per scale ACHS or Q6hrs while NPO * Goal Range: Low 110 mg/dL - High 150 mg/dL (slightly higher goal range d/t syncope) * Correction Factor: 20 mg/dL/unit * Nutritional / Prandial insulin per carb ratio of 1 unit per 7 grams CHO consumed PLAN FOR DISCHARGE: * A1c 7.6% on 09/07/19, at goal for patient's age/comorbidities * Resume outpatient regimen on discharge
[2019-09-08] MEDS ORDERED: MECLIZINE HCL 25 MG TAB PO PRN (09:41)
--- NOTE | 2019-09-08 10:01 | Discharge Summary ---
Date of Service September 08, 2019 Admission HPI Per Admitting Provider [place] Em is a 68 year old male admission for ongoing positional dizziness and recurrent syncopal episodes. He reports his episodes started 4 weeks ago and have been getting progressively worse. Initially occurring approximately 3 times a day but now it is almost everytime he is standing. He reports always falling backwards. The dizziness is a feeling like he is going to pass out rather than the room spinning the majority of the time. The only time it has occurred while lying flat was just now coming out from the CT scan but otherwise is is very positional in nature and he cannot reproduce it while lying down and moving his head from side to side. No associated blurring of vision. Over this time period he has had three occasions of syncope. The last one was on Wednesday while he was lying down under the car on cardboard he slid himself out and went to stand up holding on to the car door. He does not remember falling but woke up on the floor. He denies any recent changes to an anti-hypertensives medications; he is on multiple but reports his blood pressure is usually high rather than low. He has been on acetazolamide for years for his glaucoma with no recent changes to this medication. He takes lasix otherwise his right leg and hands swell. Only new medication has been Levaquin which he is no longer taking. This was started around the same time period as his symptoms. Admission Exam Per Admitting Provider Constitutional: well developed, well nourished and + obese; no acute distress Eyes: PERRL, conjunctivae normal, anicteric sclerae EOM intact bilaterally ENMT: external ear and nose normal, oropharynx normal Respiratory: normal respiratory effort, lungs clear to auscultation Cardiovascular: Rate/Rhythm: regular rate and regular rhythm Heart Sounds: no murmur Vessels: no JVD Extremities: normal capillary refill and + pedal edema (2+ right leg up to knee); no calf tenderness Gastrointestinal (Abdomen): normal bowel sounds, soft, nontender, no hepatosplenomegaly Musculoskeletal: no cyanosis or clubbing, extremities motor strength 5/5 Skin: no rashes, warm and dry Neurologic: moves all extremities and awake; no focal motor deficits Motor/Sensory: + sensory deficit (peripheral neuropathy) Psychiatric: A+Ox3, euthymic affect Principal Diagnosis BPPV Discharge Exam General: Alert, oriented. No acute distress, seated at bedside Skin: bruise on right arm Psych: Appropriate mood and affect HEENT: NC/AT Chest: Nontender to palpation. CV: RRR, Normal s1, s2. No murmurs appreciated Resp: Breath sounds clear bilaterally, no increased effort of breathing. Abdomen:Soft, nontender, nondistended. No guarding. No organomegaly appreciated. Extremities:+ edema in right lower extremity, left BKA Discharge Data Allergies Allergy/AdvReac Type Severity Reaction Status Date / Time Bactrim Allergy Intermediate RASH Verified 09/21/17 13:46 Sulfa (Sulfonamide Allergy Intermediate RASH Verified 09/06/19 15:40 Antibiotics) sulfamethoxazole Allergy Intermediate RASH Verified 09/06/19 15:40 trimethoprim Allergy Intermediate RASH Verified 09/06/19 15:40 Quinolones Allergy Mild ITCHINESS Verified 09/06/19 15:40 Consultations 09/06/19 18:09 ED Decision to Admit Stat 09/07/19 17:23 Consult Neurology Routine Ordered Studies 09/06/19 15:15 CT head/brain wo con Stat 09/07/19 16:24 MR brain wo/w con Routine Hospital Course (1) Dizziness: 68yo gentleman with new onset syncope, dizziness and headache. Admitted on Sep 07 2019 and discharged on September 08, 2019. Dizziness: -Described as positional, always spinning never lightheaded, and when first moving. -DDx includes BPPV vs. brain tumor vs. severe aortic stenosis vs. effect of peripheral neuropathy with glaucoma vs. other -Echo unremarkable except some moderate concentric LVH -CT Head unremarkable, MRI unremarkable -Appreciate neurology recs: -Dx of BPPV, continue PT, meclizine 25mg TID PRN, f/u as outpatient. -PT for BPPV to be scheduled outpatient -Discharged with month supply of meclizine. Falls -Appears to be related to dizziness episodes above. -workup as above Headache -L frontal, possibly cluster -PCP f/u recommended DM: -HgbA1c of 6.7 -home meds restarted on discharge Hypertension: -Continue acetazolamide and Lasix Restless leg syndrome: -Continue 3mg ropinirole at HS Pressure ulcer of BKA stump, stage 3: -Recently on Levaquin for this. -Continue routine wound care CAD, multiple vessel: -Continue ASA, continue losartan, atorvastatin CKD (chronic kidney disease) stage 3, GFR 30-59 ml/min: -Continue losartan. Appears to be at baseline Glaucoma: -s/p stents -continue acetazolomide, rhopressa, brimonidine, latanoprost, timolol GERD (gastroesophageal reflux disease): -Switch omeprazole to pantoprazole as per hospital formulary CODE STATUS: Full FEN/GI: DMII diet DVT prophylaxis: Heparin 5000 units SQ q8h Total Time Total Time Spent Total Time Spent (In Minutes): <30 Discharge Plan Discharge Items Patient Disposition: Home - Home Health Services Reason For Visit: RECURRENT SYNCOPE Discharge Diagnosis: BPPV Condition on Discharge: Good Activity: Per Instructions section Non-emergency contact: Primary Care Provider and Neurologist Call non-emergency contact if: your symptoms worsen Follow-up/Referrals: Leah Wolf, [Primary Care Provider] - 09/13/19 10:15 am (Please, follow up at Dr. Wolf's office with her associate, Sofya Medrano, on WednesdaySeptember 12 at 10:15 am. *If you need to change this appointment, call their office at [phone].) Diet: Carb Consistent or DM2 Addtl Attending Provider Instructions: Mr. Em, you were admitted due to your vertigo. It was determined that you have the diagnosis of benign paroxysmal positional vertigo. Please continue to take the meclizine 25mg three times a day NEEDED you are being discharged with for the vertigo. We also ask that you continue with physical therapy to help with this as well. We ask that you follow up with your primary care doctor and neurologist after discharge. It was a pleasure taking care of you during your stay here! Pending Studies at Discharge: No Stand-Alone Forms: [facility] [employer], Smoking Cessation Medications and DC Order Prescriptions: New meclizine 25 mg Tablet 25 mg PO TID PRN (Reason: vertigo) 30 Days Qty: 90 RF: 0 Continued furosemide 40 mg tablet 40 mg PO DAILY Qty: 90 RF: 1 (DME) FreeStyle Farhad 14 Day Sensor Kit See Rx Instructions .ROUTE .MEDSUPPLY RF: 11 (DME) FreeStyle Farhad 14 Day [place] Misc See Rx Instructions [id number] .MEDSUPPLY Qty: 1 RF: 0 ropinirole 1 mg tablet 3 mg PO DAILY Qty: 360 RF: 1 atorvastatin [Lipitor] 80 mg tablet 80 mg PO QPM Qty: 90 RF: 1 (DME) OneTouch Ultra Blue Test Strip Strip See Dose Instructions .ROUTE .MEDSUPPLY Qty: 100 RF: 5 Novolin R Regular U-100 Insuln 100 unit/mL solution 1 sliding scale dose SQ .COMPLEX RF: 0 omeprazole 20 mg tablet,delayed release (DR/EC) 20 mg PO DAILY Qty: 90 RF: 0 (DME) lancets [OneTouch UltraSoft Lancets] misc See Dose Instructions .ROUTE .MEDSUPPLY Qty: 50 RF: 0 brimonidine 0.15 % drops 1 drops OP BID RF: 0 levofloxacin [Levaquin] 500 mg tablet 500 mg PO DAILY Qty: 30 RF: 1 losartan 100 mg tablet 100 mg PO DAILY Qty: 90 RF: 3 latanoprost [Xalatan] 0.005 % Drops 1 drp OPHTHALMIC (EYE) PM RF: 0 ascorbic acid (vitamin C) [Vitamin C] 1,000 mg Tablet 4,000 mg PO DAILY RF: 0 aspirin 325 mg Tablet 325 mg PO DAILY RF: 0 timolol maleate 0.25 % Drops 1 drp OPHTHALMIC (EYE) BID RF: 0 Calcium 600 + D(3) 600 mg calcium- 200 unit Capsule 1 tab PO DAILY RF: 0 cholecalciferol (vitamin D3) [Vitamin D3] 2,000 unit Capsule 4,000 unit PO DAILY RF: 0 Rhopressa 0.02 % Drops 1 drp OPHTHALMIC (EYE) HS RF: 0 tobramycin 0.3 % drops 2 drops OP Q3H Qty: 5 RF: 0 Novolin N NPH U-100 Insulin 100 unit/mL suspension 30 units SUBCUT .COMPLEX RF: 0 acetazolamide 500 mg capsule, extended release 500 mg PO BID RF: 0 Discharge Orders: Discharge Order (Routine); Ordered 09/08/19 Ordered By: Luz Mckeon/Other Patient Handouts: Vertigo Paroxysmal Positional Admission Data Admit Date/Time: 09/06/19 19:29 Attending Provider: Wilfred Nelson Admit Provider: Jake Ware Primary Care Provider: Leah Wolf Other Providers: JeanieJake Emile Other Interventions: Discharge Summary Assessment (RN) Last Done: 09/08/19 13:46 DC Date/Time DO NOT enter until pt leaves facility: 09/08/19 14:44 Supervising Physician Co-Signing Physician Notes I personally examined the patient and verified all rivera points of history and exam, discussed case, and agree with decision making with Dr Carlson. d/w dr torre, neuro input appreciated. feels better about dizziness nwo that he understands it more. understands with/agrees with/appreciates plan and feels safe going home. vitals noted nad heent nc at mmm breathing unlabored no accessory muscles good effort skin no rashes no pallor or icterus LLE absent BKA. no focal neuro deficits dizziness - BPPV - now safe for home. PT for vestibular retraining set up, meclizine prn. safe for home. headaches - likely cluster. discussed treatment, for now we both agree watchful waiting otherwise as above
--- NOTE | 2019-09-08 16:14 | Billing Data ---
Date of Service September 08, 2019 Coding Level of Care Code D/C Day Management <30 mins
== END 2019-09-08 14:44 | disposition home health service (06) | DRG 149 ==
LOC: ED 14:09 → SUATTDRO 19:29 → 2W 19:29

== ENCOUNTER 2019-11-14 10:41 | Inpatient (IN) ==
[2019-11-14] MEDS ORDERED: ASPIRIN CHEW 324 MG PO STA (11:02)
--- NOTE | 2019-11-14 11:21 | Emergency Department Note ---
History of Present Illness General Chief complaint: Respiratory Problems Stated complaint: LUNGS WITH FLUID,HARD TO BREATHE Time Seen by Provider: 11/14/19 11:01 History of Present Illness Provider complaint: Shortness of breath Onset (ago): week(s) 2 Location: chest Radiation: non-radiation Severity: mild Current Pain Intensity: 0 Associated symptoms: + chest pain and + shortness of breath; no cough, no diaphoresis, no fever/chills, no headaches and no nausea/vomiting 69-year-old male presents emergency department for shortness of breath. Patient states he has a history of congestive heart failure. He is noticed his symptoms are gone for last 2 weeks. He also reports exertional chest pain with pain in the center of his chest. No radiation. He reports no chest pain currently. He reports he has had a unintentional 10 pound weight gain in the last 2 weeks. He also notes that his legs been more swollen. Patient states he was seen by Dr. Del Rosario nephrology last week and he needs Lasix was increased from 40 mg to 80 mg however he notes no significant improv ement in the swelling in his legs or the difficulty breathing. Home Medications Home Medications Medication Instructions Recorded Confirmed Type aspirin 325 mg PO DAILY 12/27/17 11/14/19 History latanoprost [Xalatan] 1 drp OPHTHALMIC (EYE) PM 12/27/17 11/14/19 History timolol maleate 1 drp OPHTHALMIC (EYE) BID 12/27/17 11/14/19 History insulin NPH isoph U-100 human 100 30 units SUBCUT .COMPLEX ml 12/12/18 11/14/19 History unit/mL subcutaneous suspension insulin regular human 100 unit/mL 1 sliding scale dose SQ .COMPLEX 12/12/18 11/14/19 History injection solution lancets #50 ea 12/12/18 11/06/19 History brimonidine 0.15 % eye drops 1 drops OP BID ml 12/14/18 11/14/19 History losartan 100 mg tablet 100 mg PO DAILY #90 tab 01/19/19 11/14/19 Rx FreeStyle Farhad 14 Day [place] #1 ea NS 05/23/19 11/06/19 Rx FreeStyle Farhad 14 Day Sensor ea NS 05/23/19 11/06/19 Rx ropinirole 1 mg tablet 3 mg PO DAILY #360 tab 06/22/19 11/14/19 Rx atorvastatin 80 mg tablet 80 mg PO QPM #90 tab 08/08/19 11/14/19 Rx blood sugar diagnostic #100 ea 08/28/19 11/06/19 Rx furosemide 40 mg tablet 40 mg PO DAILY #90 tab 09/12/19 11/14/19 Rx miscellaneous medical supply #1 ea 09/13/19 11/06/19 Rx omeprazole 20 mg capsule,delayed 20 mg PO DAILY #90 cap 10/19/19 11/14/19 Rx release amlodipine 10 mg tablet 10 mg PO DAILY #90 tab 11/10/19 11/14/19 Rx ascorbic acid (vitamin C) 1,000 mg 4,000 mg PO DAILY tab 11/10/19 11/14/19 History tablet gezxeru-[id number]-pofg 1 tab PO DAILY tab 11/10/19 11/14/19 History cholecalciferol (vitamin D3) 50 2,000 units PO DAILY cap 11/10/19 11/14/19 History mcg (2,000 unit) capsule multivitamin with minerals 1 tab PO DAILY 11/10/19 11/14/19 History potassium 99 mg tablet 99 mg PO DAILY tab 11/10/19 11/14/19 History sodium bicarbonate 650 mg tablet 650 mg PO BID #60 tab 11/10/19 11/14/19 Rx Allergies Allergy/AdvReac Type Severity Reaction Status Date / Time Bactrim Allergy Intermediate RASH Verified 09/21/17 13:46 Sulfa (Sulfonamide Allergy Intermediate RASH Verified 11/10/19 11:20 Antibiotics) sulfamethoxazole Allergy Intermediate RASH Verified 11/10/19 11:20 trimethoprim Allergy Intermediate RASH Verified 11/10/19 11:20 Quinolones Allergy Mild ITCHINESS Verified 11/10/19 11:20 Past Med/Surg History Medical History CAD, multiple vessel CKD (chronic kidney disease) stage 3, GFR 30-59 ml/min DDD (degenerative disc disease), lumbar Diabetic nephropathy Diabetic peripheral 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 Diastolic heart failure "echo from 05/15/14 LVEF is 55-59% (normal). LV wall thickness is mildly increased (concentric). The left atrium is moderately enlarged. The left ventricular diastolic function is moderately abnormal (grade II).Mild mitral regurgitation is present. 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 Proteinuria Restless leg syndrome Tubular adenoma of colon 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, with long-term current use of insulin Uncontrolled type 1 diabetes mellitus, with long-term current use of insulin Vitamin D deficiency Surgical History History of lumbar discectomy (Resolved) "01/31/09 L3-4 laminectomy with right L3-L4 discectomy" History of tonsillectomy (Resolved) S/P CABG x 4 (01/29/12) S/P eye surgery S/P foot surgery S/P lumbar laminectomy (05/2016) Status post below knee amputation of left lower extremity (2014) Family History Father , age 78 with prostate cancer Colorectal cancer Cardiovascular disease Diabetes Prostate cancer Grandmother (Maternal) Diabetes Mother , age 54 of throat cancer Throat cancer Denies family history of Ovarian cancer Myocardial infarction Breast cancer Social History Smoking Status: Never smoker Hx Alcohol Use: No Hx Substance Use: No Preferred Language: Greenlandic Communication Ability: Effective Visual Impairment: No Limitations Hearing Ability: Normal Road Driver Required: No Beliefs That Will Affect Care: None marital status: Current Living Situation: Spouse current occupational status: retired 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 Feels Safe at Home: Yes Childhood Exposure to Second-Hand Smoke: No caffeine: No during the past year weight has: remained stable Dental Care, Regularly: Yes Physical Activity Frequency: Daily Seatbelt Use: always Sunscreen Use: Yes Review of Systems A total of 10 systems reviewed and were otherwise negative Physical Exam Vital Signs Vital Signs - 24 hr 11/14/19 10:41 11/14/19 10:52 11/14/19 11:05 Temperature 36.7 C Temperature Source Oral Pulse Rate 56 L 58 L Pulse Rate from SpO2 Sensor 56 L Respiratory Rate 22 23 Respiratory Effort / Characteristics SOB on Exertion Non-Labored Spontaneous Respiratory Depth Normal Respiratory Pattern Regular Regular Blood Pressure 175/73 H 179/82 H Blood Pressure Mean 107 119 Blood Pressure Position Sitting Pulse Oximetry 93 93 94 Oxygen Delivery Method Room Air Room Air Oxygen Flow Rate 93 Sepsis Recent Fever Within 48 Hours No Sepsis New/Unexplained Change in Mental Status N/A Sepsis Action Taken by Nursing No Action Required 11/14/19 11:10 11/14/19 11:15 11/14/19 11:30 Temperature Temperature Source Pulse Rate 56 L 59 L 56 L Pulse Rate from SpO2 Sensor 56 L 56 L 56 L Respiratory Rate 30 H 29 H 19 Respiratory Effort / Characteristics Respiratory Depth Respiratory Pattern Blood Pressure Blood Pressure Mean Blood Pressure Position Pulse Oximetry 94 93 92 Oxygen Delivery Method Oxygen Flow Rate Sepsis Recent Fever Within 48 Hours Sepsis New/Unexplained Change in Mental Status Sepsis Action Taken by Nursing 11/14/19 11:45 11/14/19 12:00 11/14/19 12:01 Temperature Temperature Source Pulse Rate 56 L 60 60 Pulse Rate from SpO2 Sensor 56 L 65 59 L Respiratory Rate 22 27 H 25 H Respiratory Effort / Characteristics Respiratory Depth Respiratory Pattern Blood Pressure 171/80 H Blood Pressure Mean 117 Blood Pressure Position Pulse Oximetry 90 93 93 Oxygen Delivery Method Oxygen Flow Rate Sepsis Recent Fever Within 48 Hours Sepsis New/Unexplained Change in Mental Status Sepsis Action Taken by Nursing 11/14/19 12:15 11/14/19 12:30 Temperature Temperature Source Pulse Rate 55 L 57 L Pulse Rate from SpO2 Sensor 56 L 55 L Respiratory Rate 16 17 Respiratory Effort / Characteristics Respiratory Depth Respiratory Pattern Blood Pressure Blood Pressure Mean Blood Pressure Position Pulse Oximetry 96 95 Oxygen Delivery Method Oxygen Flow Rate Sepsis Recent Fever Within 48 Hours Sepsis New/Unexplained Change in Mental Status Sepsis Action Taken by Nursing Physical Exam GENERAL: He is oriented to person, place, and time. He appears well-developed and well-nourished. He does not appear distressed. HENT: Exam performed. - Head: Normocephalic and atraumatic. - Right Ear: External ear normal. No mastoid tenderness. - Left Ear: External ear normal. No mastoid tenderness. - Mouth/Throat: The oropharynx is clear and moist. No trismus in the jaw. No dental abscesses or uvula swelling. No oropharyngeal exudate or tonsillar abscesses. EYES: Conjunctivae and EOM are normal. Pupils are equal, round, and reactive to light. Right eye exhibits no discharge. Left eye exhibits no discharge. No scleral icterus. NECK: Normal range of motion. Neck supple. No JVD present. No spinous process tenderness present. No carotid bruit present. No rigidity. No tracheal deviation and normal range of motion present. No Brudzinski's sign and no Kernig's sign noted. CV: Normal rate, regular rhythm, normal heart sounds and intact distal pulses. There is no peripheral edema. Palpable radial pulses bue. PULM/CHEST: Rales at the bases bilaterally. - Chest Wall: He exhibits no tenderness. ABD: The abdomen is soft. Bowel sounds are normal. He has no distension. No mass is present. There is no tenderness. There is no rebound, no guarding, no Epstein's sign and no tenderness at McBurney's point. Rovsig negative. MUSC/SKEL: Prosthetic left lower extremity. 3+ pitting edema of the right lower extremity. LYMPH: No cervical adenopathy. NEURO: He is alert and oriented to person, place, and time. He has normal strength. No cranial nerve deficit or sensory deficit. Coordination and gait nor mal. GCS eye subscore is 4. GCS verbal subscore is 5. GCS motor subscore is 6. Cerebellar tests wnl. SKIN: Skin is warm and dry. He is not diaphoretic. PSYCH: He has a normal mood and affect. Behavior is normal. Judgment and thought content normal. Course Course 1101: The patient was evaluated in room C3. A complete history and physical exam was performed. Cardiac monitoring: An order was placed for continuous cardiac monitoring. The monitor shows a rate of 60 with sinus rhythm 1205: Vital signs stable. Labs show a worsening creatinine at 1.88 up from 1.7 on November 01 and up from 1.6 on September 27. Chest x-ray shows cardiomegaly with fluid overload and proBNP is elevated. Patient will be admitted for CHF exacerbation. Dr. Jeanie Ventura hospitalist will be notified. We will hold off on giving any Lasix to the patient given his worsening creatinine until we discussed with the hospitalist team. 1235: Discussed with Dr. Jeanie Ventura hospitalist who states he will evaluate the patient and he will decide if the patient should get Lasix or other treatments for his CHF exacerbation. Administered Medications Discontinued Medications Aspirin (Aspirin) 324 mg PO NOW STA Stop: 11/14/19 11:03 Last Admin: 11/14/19 11:25 Dose: Not Given Documented by: [id number] Medical Decision Making Laboratory Data Result diagrams: 11/14/19 11:15 11/14/19 11:15 Lab Results 11/14/19 11/14/19 11/14/19 Range/Units 11:15 11:15 11:15 WBC 6.00 (4.8-10.8) K/uL RBC 3.71 L (4.7-6.1) M/uL Hgb 11.7 L (14.0-18.0) g/dL Hct 35.6 L (42-52) % MCV 96.0 (80-100) fL MCH 31.5 (25-34) pg MCHC 32.9 (32-36) g/dL RDW Std Deviation 47.0 H (36.4-46.3) fL RDW Coeff of Jose 13.5 (11.5-14.5) % Plt Count 146 (130-400) K/uL MPV 12.6 H (7.4-10.4) fL Immature Gran % (Auto) 0.2 % Neut % (Auto) 71.6 % Lymph % (Auto) 16.2 % [place] % (Auto) 9.3 % Eos % (Auto) 2.5 % Baso % (Auto) 0.2 % Neut # (Auto) 4.30 (1.4-6.5) K/uL Lymph # (Auto) 0.97 L (1.2-3.4) K/uL [place] # (Auto) 0.56 (0.11-0.59) K/uL Eos # (Auto) 0.15 (0-0.5) K/uL Baso # (Auto) 0.01 (0-0.2) K/uL Immature Gran # (Auto) 0.01 (0.00-0.02) K/uL PT 11.3 (9.0-12.0) Seconds INR 1.1 (0.9-1.1) APTT 29.1 (21.0-31.0) Seconds PTT Ratio 1.0 Sodium 146 H (136-145) mmol/L Potassium 4.5 (3.5-5.1) mmol/L Chloride 115 H (98-107) mmol/L Carbon Dioxide 24 (21-32) mmol/L Anion Gap 7.0 (3-11) BUN 31 H (7-18) mg/dl Creatinine 1.88 H (0.6-1.4) mg/dl Est Cr Clr Drug Dosing 43.3 ml/min Est GFR ( Amer) 40.7 Est GFR (Non-Af Amer) 35.1 BUN/Creatinine Ratio 16.3 (10-20) Glucose 128 H (70-99) mg/dl Calcium 8.3 L (8.5-10.1) mg/dl Total Bilirubin 0.6 (0.2-1) mg/dl AST 15 (15-37) U/L ALT 26 (12-78) U/L Alkaline Phosphatase 99 (45-117) U/L Troponin I 0.017 (0-0.045) ng/ml NT-Pro-B Natriuret Pep 2184 H (0-900) pg/ml Total Protein 6.6 (6.4-8.2) gm/dl Albumin 3.1 L (3.4-5.0) gm/dl Globulin 3.5 (2.5-4.0) gm/dl Albumin/Globulin Ratio 0.9 (0.9-2) Lipase 96 (73-393) U/L Imaging Data Radiologist's Impression: XR chest 1V portable CLINICAL HISTORY: Chest Pain dyspnea COMPARISON STUDY: 09/06/2019 FINDINGS: Congestive heart failure. Heart is enlarged. Prior median sternotomy. Very small left effusion. Diffuse prominence of pulmonary vasculature. IMPRESSION: Congestive heart failure ACT 112: Negative or not required by law. The above report was generated using voice recognition software. It may contain grammatical, syntax or spelling errors. Electronically signed by: Anselmo Lawson M.D. 11/14/2019 11:52 AM Dictated: 11/14/19 1149 Transcribed: 11/14/19 1149 ECG Data Indication: + chest pain and + SOB/dyspnea Rate (beats per minute): 62 Rhythm: + normal sinus ECG Intervals/blocks: + Normal QRS, + Normal [place] and + Normal QT-c ECG ST segments: + Normal ST segments MDM Narrative 1101: The patient was evaluated in room C3. A complete history and physical exam was performed. Cardiac monitoring: An order was placed for continuous cardiac monitoring. The monitor shows a rate of 60 with sinus rhythm 1205: Vital signs stable. Labs show a worsening creatinine at 1.88 up from 1.7 on November 01 and up from 1.6 on September 27. Chest x-ray shows cardiomegaly with fluid overload and proBNP is elevated. Patient will be admitted for CHF exa cerbation. Dr. Jeanie Ventura hospitalist will be notified. We will hold off on giving any Lasix to the patient given his worsening creatinine until we discussed with the hospitalist team. 1235: Discussed with Dr. Jeanie Ventura hospitalist who states he will evaluate the patient and he will decide if the patient should get Lasix or other treatments for his CHF exacerbation. Impression & Plan CHF exacerbation Discharge Plan Visit Data Chief Complaint: Respiratory Problems Stated Complaint: LUNGS WITH FLUID,HARD TO BREATHE ED Provider: Joseph Thomas Discharge Problem: CHF exacerbation Patient Disposition: Being Evaluated by Hospitalist Forms Stand Alone Forms: [employer] [facility] [place] eventuosity Prescriptions Prescriptions: No Action (DME) WeeleStMiaozhen Systemse 14 Day Sensor Kit See Rx Instructions .ROUTE .MEDSUPPLY RF: 11 (DME) FreeStyle Farhad 14 Day [place] Misc See Rx Instructions [id number] .MEDSUPPLY Qty: 1 RF: 0 ropinirole 1 mg tablet 3 mg PO DAILY Qty: 360 RF: 1 atorvastatin [Lipitor] 80 mg tablet 80 mg PO QPM Qty: 90 RF: 1 (DME) OneTouch Ultra Blue Test Strip Strip See Dose Instructions .ROUTE .MEDSUPPLY Qty: 100 RF: 5 furosemide 40 mg tablet 40 mg PO DAILY Qty: 90 RF: 3 (DME) Powered Wheelchair Misc See Rx Instructions .ROUTE .MEDSUPPLY Qty: 1 RF: 0 omeprazole 20 mg capsule,delayed release(DR/EC) 20 mg PO DAILY Qty: 90 RF: 3 Novolin R Regular U-100 Insuln 100 unit/mL solution 1 sliding scale dose SQ .COMPLEX RF: 0 (DME) lancets [OneTouch UltraSoft Lancets] misc See Dose Instructions .ROUTE .MEDSUPPLY Qty: 50 RF: 0 brimonidine 0.15 % drops 1 drops OP BID RF: 0 elqswag-lzuunrpju-qffm Tablet 1 tab PO DAILY RF: 0 potassium 99 mg tablet 99 mg PO DAILY RF: 0 multivitamin with minerals [Hair,Skin and Nails] Tablet 1 tab PO DAILY RF: 0 ascorbic acid (vitamin C) 1,000 mg tablet 4,000 mg PO DAILY RF: 0 sodium bicarbonate 650 mg tablet 650 mg PO BID Qty: 60 RF: 3 amlodipine 10 mg tablet 10 mg PO DAILY Qty: 90 RF: 3 losartan 100 mg tablet 100 mg PO DAILY Qty: 90 RF: 3 latanoprost [Xalatan] 0.005 % Drops 1 drp OPHTHALMIC (EYE) PM RF: 0 aspirin 325 mg Tablet 325 mg PO DAILY RF: 0 timolol maleate 0.25 % Drops 1 drp OPHTHALMIC (EYE) BID RF: 0 Novolin N NPH U-100 Insulin 100 unit/mL suspension 30 units SUBCUT .COMPLEX RF: 0 cholecalciferol (vitamin D3) [Vitamin D3] 50 mcg (2,000 unit) capsule 2,000 units PO DAILY RF: 0 Referrals Referrals: Leah Wolf DO [Primary Care Provider] - Discharge Problem: CHF exacerbation Qualifiers: Heart failure type: unspecified Qualified Code(s): I50.9 - Heart failure, unspecified
[2019-11-14 11:32] LABS: Basophils # (auto) 0.01 K/uL (0-0.2); Basophils % (auto) 0.2 %; Eosinophils # (auto) 0.15 K/uL (0-0.5); Eosinophils % (auto) 2.5 %; Hematocrit (blood only) 35.6 % (42-52); Hemoglobin 11.7 g/dL (14.0-18.0); Immature Granulocytes # (auto) 0.01 K/uL (0.00-0.02); Immature Granulocytes % (auto) 0.2 %; Lymphocytes # (auto) 0.97 K/uL (1.2-3.4); Lymphocytes % (auto) 16.2 %; Mean Corpuscular Hemoglobin 31.5 pg (25-34); Mean Corpuscular Hgb Conc 32.9 g/dL (32-36); Mean Platelet Volume 12.6 fL (7.4-10.4); Monocytes # (auto) 0.56 K/uL (0.11-0.59); Monocytes % (auto) 9.3 %; Neutrophils % (auto) 71.6 %; Platelet Count 146 K/uL (130-400); RDW Coefficient of Variation 13.5 % (11.5-14.5); Red Blood Count 3.71 M/uL (4.7-6.1)
--- NOTE | 2019-11-14 11:42 | Electrocardiogram Report ---
Test Reason : Blood Pressure : / mmHG Vent. Rate : 062 BPM Atrial Rate : 062 BPM P-R Int : 182 ms QRS Dur : 086 ms QT Int : 426 ms P-R-T Axes : 045 068 079 degrees QTc Int : 432 ms Normal sinus rhythm Confirmed by Jose Francisco Medina [id number]) on 11/14/2019 11:41:58 AM Referred By: REFERRED SELF Confirmed By:Jose Medina
[2019-11-14 11:48] LABS: INR 1.1 (0.9-1.1); Partial Thromboplastin Time 29.1 Seconds (21.0-31.0); Prothrombin Time 11.3 Seconds (9.0-12.0)
--- NOTE | 2019-11-14 11:54 | XRay Report ---
XR chest 1V portable CLINICAL HISTORY: Chest Pain dyspnea COMPARISON STUDY: 09/06/2019 FINDINGS: Congestive heart failure. Heart is enlarged. Prior median sternotomy. Very small left effus ion. Diffuse prominence of pulmonary vasculature. IMPRESSION: Congestive heart failure ACT 112: Negative or not required by law. The above report was generated using voice recognition software. It may contain grammatical, syntax or spelling errors. Electronically signed by: Anselmo Lawson M.D. 11/14/2019 11:52 AM
[2019-11-14 11:55] LABS: Albumin Level 3.1 gm/dl (3.4-5.0); BUN Creatinine Ratio 16.3 (10-20); Calcium 8.3 mg/dl (8.5-10.1); Creatinine Clr Calc Pharmacy 43.3 ml/min; Est GFR (African American) 40.7; Est GFR (Non-African American) 35.1; Potassium 4.5 mmol/L (3.5-5.1)
[2019-11-14 12:00] LABS: Albumin Globulin Ratio 0.9 (0.9-2); Bilirubin,Total 0.6 mg/dl (0.2-1); Globulin 3.5 gm/dl (2.5-4.0); Total Protein 6.6 gm/dl (6.4-8.2); Troponin I 0.017 ng/ml (0-0.045)
--- NOTE | 2019-11-14 12:53 | History & Physical Report ---
Date of Service November 14, 2019 Assessment & Plan (1) Pulmonary edema: Increased weight gain pulmonary edema on CXR and reduced breath sounds to auscultation Suspect recent increased PO Lasix not successful due to poor absorption Surprisingly high albumin despite significant proteinuria. Will give initial dose with albumin however to aid diuresis with Lasix 40mg IV. Preliminary will order Lasix 40mg IV for tomorrow morning but likely to need more than this. Low Na, fluid restricted diet Daily weights, I&Os Highly recommend patient monitors with daily weights at home (2) Chronic kidney disease (CKD) stage G3b/A1, moderately decreased glomerular filtration rate (GFR) between 30-44 mL/min/1.73 square meter and albuminuria creatinine ratio less than 30 mg/g: Significant proteinuria likely leading to pulmonary edema in setting of PO lasix no longer being effective with gut edema As long as improving no need for nephrology consult at present (3) Acute on chronic heart failure with preserved ejection fraction: Primarily problem is with his kidney function and protein loss rather than his heart therefore no need for BB Given gradual increase without chest pain no need to repeat troponin (negative on admission) No need to repeat TTE (last performed in August with preserved EF) Treatment with lasix as above (4) Mild obstructive sleep apnea: Trial CPAP HS - patient does not use this at home however but would be beneficial given concurrent pulmonary edema during hospitalization (5) CAD, multiple vessel: Continue his usual ASA, losartan, atorvastatin. Unable to take BB due to bradycardia. (6) Uncontrolled type 1 diabetes mellitus, with long-term current use of insulin: HbA1C 7.6 in August Consult pharmacy for glycemic management. Patient reports taking his usual insulin NPH this morning (7) Restless leg syndrome: Continue ropinirole 3mg PO daily (8) Hypertension: Suspect currently uncontrolled due to hypervolemic state - should improve with IV lasix Continue amlodipine 10mg PO daily, losartan 100mg PO daily. (9) DVT prophylaxis: Given perceived right leg swelling > left with shortness of breath will get US venous doppler prior to prescribing chemical prophylaxis to know dose Admission and Anticipated Discharge Date Admission Date: 11/13/2019 History of Present Illness Chief Complaint: Weight gain, shortness of breath Primary Care Provider: Leah Wolf DO [place] is a 69 year old male with known CKD with significant proteinuria who presents to the ER with increasing fatigue, shortness of breath on exertion, swelling in his hands and weight gain getting gradually worse over the last 2 weeks. He does not weigh himself regularly but thinks he may have gained 12lb. 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 He is under wound care for his left leg stump and this has been healing well. Because of the weight gain he did see his usual occasional babysitter Dr Richardson 1 week prior and his amlodipine and lasix dosing was temporarily increased. He took lasix 40mg BID for 3 days but without any substantial change in his symptoms or urine output. He reports no change to his diet and he tries to reduce the salt content of his food. Not been drinking more water. Associated orthopnea, PND, no claudication, presyncope or syncopal episodes. He was recently admitted in August with dizziness episodes that were determined to be BPPV but he reports these have now resolved. Allergies Allergy/AdvReac Type Severity Reaction Status Date / Time Bactrim Allergy Intermediate RASH Verified 09/21/17 13:46 Sulfa (Sulfonamide Allergy Intermediate RASH Verified 11/10/19 11:20 Antibiotics) sulfamethoxazole Allergy Intermediate RASH Verified 11/10/19 11:20 trimethoprim Allergy Intermediate RASH Verified 11/10/19 11:20 Quinolones Allergy Mild ITCHINESS Verified 11/10/19 11:20 Home Medications Home Medications Medication Instructions Recorded Confirmed Type aspirin 325 mg PO DAILY 12/27/17 11/14/19 History latanoprost [Xalatan] 1 drp OPHTHALMIC (EYE) PM 12/27/17 11/14/19 History timolol maleate 1 drp OPHTHALMIC (EYE) BID 12/27/17 11/14/19 History insulin NPH isoph U-100 human 100 30 units SUBCUT .COMPLEX ml 12/12/18 11/14/19 History unit/mL subcutaneous suspension insulin regular human 100 unit/mL 1 sliding scale dose SQ .COMPLEX 12/12/18 11/14/19 History injection solution lancets #50 ea 12/12/18 11/06/19 History brimonidine 0.15 % eye drops 1 drops OP BID ml 12/14/18 11/14/19 History losartan 100 mg tablet 100 mg PO DAILY #90 tab 01/19/19 11/14/19 Rx FreeStyle Farhad 14 Day Andrews #1 ea NS 05/23/19 11/06/19 Rx FreeStyle Farhad 14 Day Sensor ea NS 05/23/19 11/06/19 Rx ropinirole 1 mg tablet 3 mg PO DAILY #360 tab 06/22/19 11/14/19 Rx atorvastatin 80 mg tablet 80 mg PO QPM #90 tab 08/08/19 11/14/19 Rx blood sugar diagnostic #100 ea 08/28/19 11/06/19 Rx furosemide 40 mg tablet 40 mg PO DAILY #90 tab 09/12/19 11/14/19 Rx miscellaneous medical supply #1 ea 09/13/19 11/06/19 Rx omeprazole 20 mg capsule,delayed 20 mg PO DAILY #90 cap 10/19/19 11/14/19 Rx release amlodipine 10 mg tablet 10 mg PO DAILY #90 tab 11/10/19 11/14/19 Rx ascorbic acid (vitamin C) 1,000 mg 4,000 mg PO DAILY tab 11/10/19 11/14/19 History tablet [id number]-[id number]-eqni 1 tab PO DAILY tab 11/10/19 11/14/19 History cholecalciferol (vitamin D3) 50 2,000 units PO DAILY cap 11/10/19 11/14/19 History mcg (2,000 unit) capsule multivitamin with minerals 1 tab PO DAILY 11/10/19 11/14/19 History potassium 99 mg tablet 99 mg PO DAILY tab 11/10/19 11/14/19 History sodium bicarbonate 650 mg tablet 650 mg PO BID #60 tab 11/10/19 11/14/19 Rx Past Med/Surg History Medical History CAD, multiple vessel CKD (chronic kidney disease) stage 3, GFR 30-59 ml/min DDD (degenerative disc disease), lumbar Diabetic nephropathy Diabetic peripheral 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 Diastolic heart failure "echo from 05/15/14 LVEF is 55-59% (normal). LV wall thickness is mildly increased (concentric). The left atrium is moderately enlarged. The left ventricular diastolic function is moderately abnormal (grade II).Mild mitral regurgitation is present. 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 Proteinuria Restless leg syndrome Tubular adenoma of colon 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, with long-term current use of insulin Uncontrolled type 1 diabetes mellitus, with long-term current use of insulin Vitamin D deficiency Surgical History History of lumbar discectomy (Resolved) "01/31/09 L3-4 laminectomy with right L3-L4 discectomy" History of tonsillectomy (Resolved) S/P CABG x 4 (01/29/12) S/P eye surgery S/P foot surgery S/P lumbar laminectomy (05/2016) Status post below knee amputation of left lower extremity (2014) Family History Father , age 78 with prostate cancer Colorectal cancer Cardiovascular disease Diabetes Prostate cancer Grandmother (Maternal) Diabetes Mother , age 54 of throat cancer Throat cancer Denies family history of Ovarian cancer Myocardial infarction Breast cancer Social History Smoking Status: Never smoker Hx Alcohol Use: No Hx Substance Use: No Preferred Language: Yi Communication Ability: Effective Visual Impairment: No Limitations Hearing Ability: Normal Hand Folder Required: No Beliefs That Will Affect Care: None marital status: Current Living Situation: Spouse current occupational status: retired 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 Feels Safe at Home: Yes Safety Concerns: Feels Safe At This Time Childhood Exposure to Second-Hand Smoke: No caffeine: No during the past year weight has: remained stable Dental Care, Regularly: Yes Physical Activity Frequency: Daily Seatbelt Use: always Sunscreen Use: Yes Review of Systems Review of Systems: All systems reviewed & are unremarkable except as noted in HPI & below Physical Exam Constitutional: well developed and + obese; no acute distress Eyes: + anicteric sclerae; normal pupil size ENMT: external ear and nose normal, oropharynx normal Neck: trachea midline, no thyromegaly Respiratory: normal respiratory effort (at rest, labored on minimal exertion) Auscultation: + diminished lung sounds (to midzone on back); no crackles and no wheezes Cardiovascular: Rate/Rhythm: regular rate and regular rhythm Heart Sounds: no murmur Vessels: no JVD (difficult to assess with neck size) Extremities: normal capillary refill and + pedal edema (3+ to hips, difficult to assess whether equal given below knee amputation); no calf tenderness Gastrointestinal (Abdomen): normal bowel sounds, soft, nontender, no hepatosplenomegaly Musculoskeletal: no cyanosis or clubbing, extremities motor strength 5/5 Skin: no rashes, warm and dry Neurologic: moves all extremities and awake; not confused Psychiatric: A+Ox3, euthymic affect Genitourinary: no CVA tenderness Lymphatic: no cervical or axillary lymphadenopathy Results & Data Results & Data ([facility]) Vital Signs (Past 12 Hours) Vital Signs Temp Pulse Resp BP Pulse Ox 11/14/19 12:30 57 L 17 95 11/14/19 12:15 55 L 16 96 11/14/19 12:01 60 25 H 93 11/14/19 12:00 60 27 H 171/80 H 93 11/14/19 11:45 56 L 22 90 11/14/19 11:30 56 L 19 92 11/14/19 11:15 59 L 29 H 93 11/14/19 11:10 56 L 30 H 94 11/14/19 11:05 58 L 23 179/82 H 94 11/14/19 10:52 36.7 C 56 L 22 175/73 H 93 11/14/19 10:41 93 Diagnostic Findings XR chest 1V portable IMPRESSION: Congestive heart failure ECG Rate (beats per minute): 62 Rhythm: normal sinus Findings: no acute ischemic change Comparison ECG Date: from (09/06/2019) Change: no significant change Code Status & VTE Plan Code Status Full as discussed with the patient VTE Prophylaxis Plan VTE Prophylaxis will be ordered: Yes PG Care Time/CCT Total # of Minutes Spent Total Time Spent with Patient: Total time spent is greater than 50% in coordination of care (as documented) at patient's floor/unit and/or counseling patient: Coding Level of Care Code 18167 Initial Inpt Care Lvl 3 Diagnoses Pulmonary edema J81.1 Chronic kidney disease (CKD) stage G3b/A1, moderately decreased glomerular filtration rate (GFR) between 30-44 mL/min/1.73 square meter and albuminuria creatinine ratio less than 30 mg/g N18.3 Acute on chronic heart failure with preserved ejection fraction I50.33 Mild obstructive sleep apnea G47.33 CAD, multiple vessel I25.10 Uncontrolled type 1 diabetes mellitus, with long-term current use of insulin E10.65 Restless leg syndrome G25.81 Hypertension I10 DVT prophylaxis Z29.9
[2019-11-14] MEDS ORDERED: ALBUMIN 25% 50 ML with FUROSEMIDE 40 MG IV ONE (14:45)
[2019-11-14] MEDS ORDERED: PHARMACY GLYCEMIC MGMT CONSULT PRN (14:50)
[2019-11-14] MEDS ORDERED: DEXTROSE 50% 50 ML SYRINGE IV PRN (15:15)
[2019-11-14] MEDS ORDERED: GLUCOSE 10 TABS/TUBE PO PRN (15:15)
[2019-11-14] MEDS ORDERED: GLUCAGON FOR INJ 1 MG VIAL IM PRN (15:15)
[2019-11-14] MEDS ORDERED: CARBOHYDRATES FOR HYPOGLYCEMIA PO PRN (15:15)
[2019-11-14] MEDS ORDERED: GLUCOSE 40% GEL 15 GM TUBE PO PRN (15:15)
--- NOTE | 2019-11-14 15:21 | Pharmacy Report ---
Glycemic Control Consultation - Date of Service November 14, 2019 - Scope Scope: Glycemic Pharmacist consulted for glycemic control and to write orders per [facility] inpatient glycemic control protocol. - Objective Weight: 110 kg Accuchecks BSG (last 24hrs): 11/14/19 11:15 Glucose 128 H Laboratory Data (last 24hrs): 11/14/19 11:15 Potassium 4.5 Carbon Dioxide 24 Anion Gap 7.0 Creatinine 1.88 H Est Cr Clr Drug Dosing 43.3 - Recent Pertinent Medications Outpatient Anti-diabetic Regimen: * NPH 30 units SC BIDM + Regular Insulin SS (30 units SC QDB + 15-20 units SC QDL + 25 untis SC QDD) * A1c = 7.6% (09/07/2019) Risk Factors for Insulin Resistance: * Diet: * T1DM - Assessment & Plan Assessment & Plan: ASSESSMENT: * 69 yo M admitted for pulmonary edema. Patient has a history of T1DM, and Pharmacy is consulted for Glycemic Management. Patient is known to our service. * Most recent A1c of 7.6% is acceptable on current outpatient regimen. * Admission BSG was 128 mg/dL. Patient reports he took 30 units of NPH this morning but did not take Regular insulin because he did not eat breakfast and his BSG was 122 mg/dL. * He reports he will definitely be eating dinner since he has not eaten since last evening. States that he does feel "like garbage" if his BSG drops below 100 mg/dL. He is agreeable to Novolog inpatient given his changing appetite. Will start with a higher goal range of 120 - 160 mg/dL. * Will order a decreased NPH scale for this evening given poor appetite and not wanting to drop BSG below 100 mg/dL. PLAN FOR INPATIENT GLYCEMIC CONTROL: * Basal insulin * NPH 10-20 units SC BIDM * Bolus insulin * NovoLog per scale ACHS or Q6hrs while NPO * Goal Range: Low 120 mg/dL - High 160 mg/dL * Correction Factor: 20 mg/dL/unit * Nutritional / Prandial insulin per carb ratio of 1 unit per 7 grams CHO consumed * Please note that the plan above was derived based on current level of insulin resistance and hospital stress. These recommendations are appropriate for inpatient admission only. Plan of care upon discharge will need to be reassessed to avoid potential outpatient hypo/hyperglycemia. Thank you.
--- NOTE | 2019-11-14 16:29 | Ultrasound Report ---
US venous doppler LE RT HISTORY: 69 years-old Male r/o DVT acute pain and swelling of the right lower extremity COMPARISON: None TECHNIQUE: Multiple real-time sonographic images of the right lower extremity deep venous structures were obtained assessing grayscale appearance, color and spectral flow FINDINGS: Normal flow, compressibility, phasicity and augmentation of the right lower extremity deep venous str uctures. Limited evaluation of the calf veins secondary to subcutaneous edema. IMPRESSION: No sonographic evidence of deep venous thrombosis. ACT 112: Negative or not required by law. The above report was generated using voice recognition software. It may contain grammatical, syntax o r spelling errors. Electronically signed by: Ricky Buck M.D. 11/14/2019 4:28 PM
[2019-11-14] MEDS: INSULIN ASPART 100 UNITS/ML 3 ML PEN SC SCH ×2 (17:21→20:40)
[2019-11-14] MEDS: HumuLIN N 10 ML VIAL SC SCH (17:23)
[2019-11-14] MEDS ORDERED: METOPROLOL TARTRATE 50 MG TAB PO STA (18:16)
[2019-11-14] MEDS: ROPINIROLE HCL 1 MG TABLET PO SCH (19:21)
[2019-11-14] MEDS: ATORVASTATIN 40 MG TAB PO SCH (19:22)
[2019-11-14] MEDS: SODIUM BICARBONATE 650 MG TAB PO SCH (19:22)
[2019-11-14] MEDS: BRIMONIDINE TARTRATE-P 0.15% 5 ML BTL OP SCH (19:24)
[2019-11-14] MEDS: LATANOPROST 0.005% OP SOLN 2.5 ML BTL OPB SCH (19:25)
[2019-11-14] MEDS: TIMOLOL GFS 0.5% OPH SOLN 74 DROPS/5 ML BTL OPB SCH (19:25)
[2019-11-14] MEDS ORDERED: ALBUMIN 25% 50 ML with FUROSEMIDE 40 MG IV SCH (20:00)
[2019-11-15] MEDS ORDERED: INSULIN ASPART 100 UNITS/ML 3 ML PEN SC SCH
[2019-11-15 06:45] LABS: Calcium 8.2 mg/dl (8.5-10.1); Creatinine Clr Calc Pharmacy 50.2 ml/min; Est GFR (African American) 47.3; Est GFR (Non-African American) 40.9; Magnesium 2.7 mg/dl (1.8-2.4); Potassium 4.1 mmol/L (3.5-5.1)
[2019-11-15] MEDS: CHOLECALCIFEROL 1,000 UNITS 25 MCG TAB PO SCH (08:50)
[2019-11-15] MEDS: SODIUM BICARBONATE 650 MG TAB PO SCH ×2 (08:51→20:42)
[2019-11-15] MEDS: ASCORBIC ACID 500 MG TAB PO SCH (08:51)
[2019-11-15] MEDS: LOSARTAN POTASSIUM 50 MG TAB PO SCH (08:51)
[2019-11-15] MEDS: ASPIRIN 325 MG ECTAB PO SCH (08:51)
[2019-11-15] MEDS: AMLODIPINE BESYLATE 5 MG TAB PO SCH (08:51)
[2019-11-15] MEDS: PANTOprazole 40 MG TAB PO SCH (08:52)
[2019-11-15] MEDS: BRIMONIDINE TARTRATE-P 0.15% 5 ML BTL OP SCH ×2 (08:53→20:43)
[2019-11-15] MEDS: HumuLIN N 10 ML VIAL SC SCH ×2 (08:54→17:30)
[2019-11-15] MEDS: ROPINIROLE HCL 1 MG TABLET PO SCH ×2 (08:58→20:42)
[2019-11-15] MEDS: TIMOLOL GFS 0.5% OPH SOLN 74 DROPS/5 ML BTL OPB SCH ×2 (08:59→20:42)
[2019-11-15] MEDS: INSULIN ASPART 100 UNITS/ML 3 ML PEN SC SCH ×4 (09:00→20:42)
[2019-11-15] MEDS ORDERED: FUROSEMIDE 40 MG in SYRINGE 0 ML IV SCH (09:00)
--- NOTE | 2019-11-15 11:36 | Pharmacy Report ---
Pharmacy Glycemic Short Note 2 - Date of Service November 15, 2019 - Glycemic Short BSG Results (Last 24 hours): 11/14/19 11/14/19 11/14/19 11:15 16:55 20:22 Glucose 128 H POC Glucose 88 92 11/14/19 11/14/19 11/15/19 22:02 22:17 00:30 Glucose POC Glucose 65 L* 86 89 11/15/19 11/15/19 11/15/19 06:08 07:32 11:24 Glucose 74 POC Glucose 118 H 154 H OUTPATIENT ANTIDIABETIC REGIMEN: * NPH 30 units SC BIDM + Regular Insulin SS (30 units SC QDB + 15-20 units SC QDL + 25 untis SC QDD) * A1c = 7.6% (09/07/2019) ASSESSMENT: * 69 yo M admitted for pulmonary edema. h/o T1DM and known to Pharmacy Glycemic service. * Patient received a total of 42 units of insulin yesterday (40 units of basal and 2 units of bolus) * Fasting BSG of 118 mg/dL is at goal. Will continue with reduced dose of NPH. * Post prandial BSGs were below goal yesterday despite minimal Novolog. CF and CR were loosened overnight. Appetite has improved today. May need to tighten carb coverage in near future. PLAN FOR INPATIENT GLYCEMIC CONTROL: * Basal insulin * Lantus 10-20 units SQ BID with meals: * 10 units for BSG < 110 * 15 units for BSG 110 - 180 * 20 units for BSG > 180 * Bolus insulin * NovoLog per scale ACHS or Q6hrs while NPO * Goal Range: Low 120 mg/dL - High 160 mg/dL * Correction Factor: 30 mg/dL/unit * Nutritional / Prandial insulin per carb ratio of 1 unit per 10 grams CHO consumed PLAN FOR DISCHARGE: * Most recent A1c of 7.6% is acceptable on current outpatient regimen. * Continue home regimen on discharge, unless patient reports frequent hypoglycemia. Thank you.
--- NOTE | 2019-11-15 13:23 | Hospitalist Progress Note ---
Date of Service November 15, 2019 Assessment & Plan (1) Pulmonary edema: Increased weight gain pulmonary edema on CXR and reduced breath sounds to auscultation. - Continue Lasix, but increase dose & frequency. - Monitor weights and I&Os. - Monitor Cr (2) Chronic kidney disease (CKD) stage G3b/A1, moderately decreased glomerular filtration rate (GFR) between 30-44 mL/min/1.73 square meter and albuminuria creatinine ratio less than 30 mg/g: Significant proteinuria likely leading to pulmonary edema in setting of PO lasix no longer being effective with gut edema. Baseline Cr ~1.6-1.7. - As long as improving no need for nephrology consult at present - Monitor -> Cr now 1.66; considering this baseline. Monitor with diuresis. (3) Acute on chronic heart failure with preserved ejection fraction: Primarily problem is with his kidney function and protein loss rather than his heart. - Given gradual increase without chest pain no need to repeat troponin (negative on admission) - No need to repeat TTE (last performed in August with preserved EF) - Treatment with Lasix as above (4) Uncontrolled type 1 diabetes mellitus, with long-term current use of insulin: HbA1C 7.6% in August. - Consult pharmacy for glycemic management. -> Sugars low overnight. (5) Mild obstructive sleep apnea: Trial CPAP HS - patient does not use this at home however but would be beneficial given concurrent pulmonary edema during hospitalization. (6) CAD, multiple vessel: No chest pain at present. - Continue his usual ASA, losartan, atorvastatin. Unable to take beta-luiz due to bradycardia. (7) Restless leg syndrome: - Continue ropinirole 3mg PO daily (8) Hypertension: Better controlled today at 150/70. - Continue amlodipine 10mg PO daily, losartan 100mg PO daily. (9) Pressure ulcer of BKA stump, stage 3: Per patient opened up several weeks ago. - Seen by Wound RN with recs for dressing. No indication of active infection. (10) DVT prophylaxis: Heparin Admission and Anticipated Discharge Date Admission Date: November 14, 2019 Subjective Still with shortness of breath, swelling. Doesn't feel like he had much UOP today despite Lasix. Reports no fevers/chills, chest pain, abdominal pain, nausea, or vomiting. Physical Exam Constitutional: WD/WN, vitals as above Eyes: EOM intact bilaterally; no conjunctival abnormality ENMT: external ear and nose normal, oropharynx normal Neck: trachea midline, no thyromegaly normal visual inspection Respiratory: normal respiratory effort, lungs clear to auscultation no respiratory distress Cardiovascular: Rate/Rhythm: regular rate and regular rhythm Vessels: no JVD Extremities: + edema Gastrointestinal (Abdomen): Inspection/Auscultation: abdomen normal to inspection; abdomen not distended Musculoskeletal: no cyanosis or clubbing, extremities motor strength 5/5 Skin: no rashes, warm and dry Neurologic: moves all extremities and awake Psychiatric: Orientation: alert, oriented to person and cooperative Results & Data Results & Data ([facility]) Vital Signs (Past 12 Hours) Vital Signs Temp Pulse Pulse Resp BP Pulse Ox 11/15/19 07:11 36.6 C 54 L 77 20 151/69 H 90 11/15/19 04:00 36.6 C 53 L 20 173/84 H 92 11/15/19 03:32 53 L 19 94 11/15/19 03:26 56 L PG Care Time/CCT Total # of Minutes Spent Total Time Spent with Patient: Total time spent is greater than 50% in coordination of care (as documented) at patient's floor/unit and/or counseling patient: Coding Level of Care Code 26991 Subseq Hosp Care Lvl 3 Diagnoses Pulmonary edema J81.1 Chronic kidney disease (CKD) stage G3b/A1, moderately decreased glomerular filtration rate (GFR) between 30-44 mL/min/1.73 square meter and albuminuria creatinine ratio less than 30 mg/g N18.3 Acute on chronic heart failure with preserved ejection fraction I50.33 Uncontrolled type 1 diabetes mellitus, with long-term current use of insulin E10.65 Mild obstructive sleep apnea G47.33 CAD, multiple vessel I25.10 Restless leg syndrome G25.81 Hypertension I10 Pressure ulcer of BKA stump, stage 3 T87.89; L89.893 DVT prophylaxis Z29.9
[2019-11-15] MEDS: FUROSEMIDE 60 MG in SYRINGE 0 ML IV SCH (17:10)
[2019-11-15] MEDS: ATORVASTATIN 40 MG TAB PO SCH (20:42)
[2019-11-15] MEDS: HEPARIN SOD 5,000 UNIT/0.5 ML VIAL SQ SCH (20:43)
[2019-11-15] MEDS: LATANOPROST 0.005% OP SOLN 2.5 ML BTL OPB SCH (20:43)
[2019-11-16 06:35] LABS: Hematocrit (blood only) 35.7 % (42-52); Mean Corpuscular Hgb Conc 33.6 g/dL (32-36); Mean Corpuscular Volume 95.2 fL (80-100); Mean Platelet Volume 12.7 fL (7.4-10.4); Platelet Count 158 K/uL (130-400); RDW Coefficient of Variation 13.3 % (11.5-14.5); RDW Standard Deviation 46.4 fL (36.4-46.3); Red Blood Count 3.75 M/uL (4.7-6.1); White Blood Count 5.34 K/uL (4.8-10.8)
[2019-11-16 07:05] LABS: BUN Creatinine Ratio 17.3 (10-20); Calcium 8.5 mg/dl (8.5-10.1); Creatinine Clr Calc Pharmacy 43.6 ml/min; Est GFR (African American) 40.7; Est GFR (Non-African American) 35.1; Magnesium 2.5 mg/dl (1.8-2.4); Potassium 4.2 mmol/L (3.5-5.1)
[2019-11-16] MEDS: LOSARTAN POTASSIUM 50 MG TAB PO SCH (08:46)
[2019-11-16] MEDS: FUROSEMIDE 60 MG in SYRINGE 0 ML IV SCH (08:46)
[2019-11-16] MEDS: TIMOLOL GFS 0.5% OPH SOLN 74 DROPS/5 ML BTL OPB SCH ×2 (08:47→20:24)
[2019-11-16] MEDS: BRIMONIDINE TARTRATE-P 0.15% 5 ML BTL OP SCH ×2 (08:47→20:23)
[2019-11-16] MEDS: ASPIRIN 325 MG ECTAB PO SCH (08:48)
[2019-11-16] MEDS: AMLODIPINE BESYLATE 5 MG TAB PO SCH (08:48)
[2019-11-16] MEDS: SODIUM BICARBONATE 650 MG TAB PO SCH (08:48)
[2019-11-16] MEDS: ROPINIROLE HCL 1 MG TABLET PO SCH ×2 (08:48→20:21)
[2019-11-16] MEDS: PANTOprazole 40 MG TAB PO SCH (08:48)
[2019-11-16] MEDS: HEPARIN SOD 5,000 UNIT/0.5 ML VIAL SQ SCH ×2 (08:49→20:22)
[2019-11-16] MEDS: ASCORBIC ACID 500 MG TAB PO SCH (08:49)
[2019-11-16] MEDS: CHOLECALCIFEROL 1,000 UNITS 25 MCG TAB PO SCH (08:51)
[2019-11-16] MEDS: INSULIN ASPART 100 UNITS/ML 3 ML PEN SC SCH ×4 (08:53→20:20)
[2019-11-16] MEDS: HumuLIN N 10 ML VIAL SC SCH ×2 (08:55→17:15)
--- NOTE | 2019-11-16 10:29 | Pharmacy Report ---
Pharmacy Glycemic Short Note 2 - Date of Service November 16, 2019 - Glycemic Short BSG Results (Last 24 hours): 11/15/19 11/15/19 11/15/19 11:24 16:54 20:40 Glucose POC Glucose 154 H 154 H 134 H 11/16/19 11/16/19 05:44 07:33 Glucose 66 L POC Glucose 91 OUTPATIENT ANTIDIABETIC REGIMEN: * NPH 30 units SC BIDM + Regular Insulin SS (30 units SC QDB + 15-20 units SC QDL + 25 untis SC QDD) * A1c = 7.6% (09/07/2019) ASSESSMENT: 11/15: * Excellent glycemic control over the past 24 hours. BSG running a little low overnight/early AM. No mention of s/y of hypoglycemia. * Fasting BSG of 91 mg/dL is slightly below goal for inpatient control. I will decrease NPH scale with breakfast so that patient gets a maximum of 15 units (rather than 20 units). Change PM dose of NPH to set dose of 10 units to avoid overnight lows. * Post prandial BSGs are at goal, therefore no changes to Novolog. 11/14: * 69 yo M admitted for pulmonary edema. h/o T1DM and known to Pharmacy Glycemic service. * Patient received a total of 42 units of insulin yesterday (40 units of basal and 2 units of bolus) * Fasting BSG of 118 mg/dL is at goal. Will continue with reduced dose of NPH. * Post prandial BSGs were below goal yesterday despite minimal Novolog. CF and CR were loosened overnight. Appetite has improved today. May need to tighten carb coverage in near future. PLAN FOR INPATIENT GLYCEMIC CONTROL: * Basal insulin * NPH 10-15 units SQ with breakfast: 10 units for BSG < 110 15 units for BSG 110 mg/dL or more * NPH 10 units SQ with dinner * Bolus insulin * NovoLog per scale ACHS or Q6hrs while NPO * Goal Range: Low 120 mg/dL - High 160 mg/dL * Correction Factor: 30 mg/dL/unit * Nutritional / Prandial insulin per carb ratio of 1 unit per 10 grams CHO consumed PLAN FOR DISCHARGE: * Most recent A1c of 7.6% is acceptable on current outpatient regimen. * Continue home regimen on discharge, unless patient reports frequent hypoglycemia. Thank you.
[2019-11-16] MEDS ORDERED: BUMETANIDE 1 MG TAB PO ONE (11:06)
--- NOTE | 2019-11-16 11:20 | Nephrology Consultation ---
Date of Consultation November 16, 2019 Assessment & Plan (1) Nephrotic syndrome: [place] has stage IIIB CKD and nephrotic syndrome in the setting of diabetic nephropathy, baseline creatinine has been variable mostly around 1.6-1.8 with repeated episode of ABDOULAYE. Admitted to the hospital with diuretic resistant volume overload and progressive shortness of breath over last 1 week despite being on higher dose of diuretics. Received Lasix 60 mg IV twice a day with improvement in volume status and remained net negative more than 1 L per day. slight change in creatinine however electrolyte acceptable. -- Change Lasix to Bumex 1 mg orally twice daily considering better GI bioavailability of Bumex as he did not respond well to higher dose of Lasix as an outpatient. Monitor urine output, aim for net -0.5 to 1 L, may need higher dose of Bumex depending on the response -- again discussed with [place] that he has multiple risk factor for progressive worsening of renal function, in order to maintain you volume media, may need to accept mild azotemia and change in renal function. --monitor renal function electrolytes closely with daily renal panel --continue on amlodipine and losartan for now, continue to hold beta-luiz with heart rate in high 40s to 50s. If blood pressures remain poorly controlled, will consider adding hydralazine. --Suggest repeat 2D echo to evaluate for any change in EF Will follow Thank you for allowing me to participate in your patient's care. It was a plea sure to see [place] (2) CKD (chronic kidney disease) stage 3, GFR 30-59 ml/min: (3) Acute kidney injury: (4) Hypertension: (5) Diabetic nephropathy: (6) Volume overload: History of Present Illness Reason for Consultation: Diuretic resistant volume overload, ABDOULAYE, CKD. Attending Physician: Ye Gonzalez MD History of Present Illness Dayton Em is a 69-year-old gentlemen with the past medical history sooner for stage IIIB CKD, hypertension, diabetes, coronary artery disease and history of CVA admitted to the hospital with diuretic resistant volume overload and shortness of breath. Nephrology consult was requested to assist with diuretic management. EMR records are reviewed in detail during patient's visit. [place] has stage 3 CKD b/l cr 1.7-1.8, however creatinine has been variable with repeated episode of ABDOULAYE in the setting of higher dose of diuretic use for volume overload. Has nephrotic syndrome most likely secondary to diabetic nephropathy with more than 5 g of proteinuria, hypoalbuminemia and lower extremity edema. Has DM since age 36, complicated by significant macro and microvascular disease And proliferative diabetic retinopathy. Diabetes remained suboptimally controlled. [place] has chronic lower extremity edema with nephrotic syndrome and diastolic dysfunction. Has been on Lasix 40 mg every other day however recently lower extremity edema worsen and was getting more short of breath. A week ago Lasix was increased to 40 mg twice a day however over the weekend he notice getting progressively short of breath without much improvement and decided to come to or. On admission he was found to be volume overloaded with pulmonary congestion lower extremity edema. Started on Lasix 60 mg twice a day, has been diuresing nicely over last 24 hours net negative more than 1 L, breathing slightly improved. Troponin was normal, BNP above 2000, chest x-ray showed pulmonary vascular congestion. 2D echo in August showed EF 55%, has concentric LVH and grade 1 diastolic dysfunction. Hypertension for 30 years, seems to be reasonable, but most of the time above goal, on Losartan 50 mg daily. H/O CAD s/p CABG. No history of BPH, nephrolithiasis. Had left BKA in 2015 after a minor injury turned in to osteomyelitis, had antibiotic for several weeks which caused acute kidney injury, eventually required BKA. Creatinine slightly worsened to 1.9 this morning, electrolyte acceptable. Sh ortness of breath improve somewhat. Blood pressure remains above goal. Allergies Allergy/AdvReac Type Severity Reaction Status Date / Time Bactrim Allergy Intermediate RASH Verified 09/21/17 13:46 Sulfa (Sulfonamide Allergy Intermediate RASH Verified 11/10/19 11:20 Antibiotics) sulfamethoxazole Allergy Intermediate RASH Verified 11/10/19 11:20 trimethoprim Allergy Intermediate RASH Verified 11/10/19 11:20 Quinolones Allergy Mild ITCHINESS Verified 11/10/19 11:20 Home Medications Home Medications Medication Instructions Recorded Confirmed Type aspirin 325 mg PO DAILY 12/27/17 11/14/19 History latanoprost [Xalatan] 1 drp OPHTHALMIC (EYE) PM 12/27/17 11/14/19 History timolol maleate 1 drp OPHTHALMIC (EYE) BID 12/27/17 11/14/19 History insulin NPH isoph U-100 human 100 30 units SUBCUT .COMPLEX ml 12/12/18 11/14/19 History unit/mL subcutaneous suspension insulin regular human 100 unit/mL 1 sliding scale dose SQ .COMPLEX 12/12/18 11/14/19 History injection solution lancets #50 ea 12/12/18 11/06/19 History brimonidine 0.15 % eye drops 1 drops OP BID ml 12/14/18 11/14/19 History losartan 100 mg tablet 100 mg PO DAILY #90 tab 01/19/19 11/14/19 Rx FreeStyle Farhad 14 Day [place] #1 ea NS 05/23/19 11/06/19 Rx FreeStyle Farhad 14 Day S[place] ea NS 05/23/19 11/06/19 Rx ropinirole 1 mg tablet 3 mg PO DAILY #360 tab 06/22/19 11/14/19 Rx atorvastatin 80 mg tablet 80 mg PO QPM #90 tab 08/08/19 11/14/19 Rx blood sugar diagnostic #100 ea 08/28/19 11/06/19 Rx furosemide 40 mg tablet 40 mg PO DAILY #90 tab 09/12/19 11/14/19 Rx miscellaneous medical supply #1 ea 09/13/19 11/06/19 Rx omeprazole 20 mg capsule,delayed 20 mg PO DAILY #90 cap 10/19/19 11/14/19 Rx release amlodipine 10 mg tablet 10 mg PO DAILY #90 tab 11/10/19 11/14/19 Rx ascorbic acid (vitamin C) 1,000 mg 4,000 mg PO DAILY tab 11/10/19 11/14/19 History tablet yinuzle-[id number]-gtvv 1 tab PO DAILY tab 11/10/19 11/14/19 History cholecalciferol (vitamin D3) 50 2,000 units PO DAILY cap 11/10/19 11/14/19 History mcg (2,000 unit) capsule multivitamin with minerals 1 tab PO DAILY 11/10/19 11/14/19 History potassium 99 mg tablet 99 mg PO DAILY tab 11/10/19 11/14/19 History sodium bicarbonate 650 mg tablet 650 mg PO BID #60 tab 11/10/19 11/14/19 Rx Patient History Medical History CAD, multiple vessel CKD (chronic kidney disease) stage 3, GFR 30-59 ml/min DDD (degenerative disc disease), lumbar Diabetic nephropathy Diabetic peripheral 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 Diastolic heart failure "echo from 05/15/14 LVEF is 55-59% (normal). LV wall thickness is mildly increased (concentric). The left atrium is moderately enlarged. The left ventricular diastolic function is moderately abnormal (grade II).Mild mitral regurgitation is present. 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 Proteinuria Restless leg syndrome Tubular adenoma of colon 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, with long-term current use of insulin Uncontrolled type 1 diabetes mellitus, with long-term current use of insulin Vitamin D deficiency Surgical History History of lumbar discectomy (Resolved) "01/31/09 L3-4 laminectomy with right L3-L4 discectomy" History of tonsillectomy (Resolved) S/P CABG x 4 (01/29/12) S/P eye surgery S/P foot surgery S/P lumbar laminectomy (05/2016) Status post below knee amputation of left lower extremity (2014) Family History Father , age 78 with prostate cancer Colorectal cancer Cardiovascular disease Diabetes Prostate cancer Grandmother (Maternal) Diabetes Mother , age 54 of throat cancer Throat cancer Denies family history of Ovarian cancer Myocardial infarction Breast cancer Social History Smoking Status: Never smoker Hx Alcohol Use: No Hx Substance Use: No Preferred Language: Turkish Communication Ability: Effective Visual Impairment: No Limitations Hearing Ability: Normal French Polisher Required: No Beliefs That Will Affect Care: None marital status: Current Living Situation: Spouse current occupational status: retired 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 Feels Safe at Home: Yes Safety Concerns: Feels Safe At This Time Childhood Exposure to Second-Hand Smoke: No caffeine: No during the past year weight has: remained stable Dental Care, Regularly: Yes Physical Activity Frequency: Daily Seatbelt Use: always Sunscreen Use: Yes Review of Systems Review of Systems: All systems reviewed & are unremarkable except as noted in HPI & below Physical Exam Constitutional: WD/WN, vitals as above well developed and well nourished; no acute distress Eyes: PERRL, conjunctivae normal, anicteric sclerae ENMT: external ear and nose normal, oropharynx normal Ears: no hearing impairment Neck: trachea midline Respiratory: normal respiratory effort; no respiratory distress Auscultation: + crackles Cardiovascular: Rate/Rhythm: regular rate and regular rhythm Heart Sounds: normal S1 and normal S2 Extremities: + edema Gastrointestinal (Abdomen): normal bowel sounds, soft, nontender, no hepatosplenomegaly Percussion/Palpation: abdomen nontender, no guarding and abdomen not rigid Musculoskeletal: Extremities: + lower extremity abnormal to inspection ( Left BKA, right lower extremity edema) Skin: no rashes, warm and dry Neurologic: moves all extremities and awake Psychiatric: A+Ox3, euthymic affect Results & Data Vital Signs (Past 12 Hours) Vital Signs Temp Pulse Pulse Resp BP Pulse Ox 11/16/19 07:15 46 L 11/16/19 07:13 36.6 C 56 L 18 164/76 H 93 11/16/19 03:20 36.6 C 49 L 20 153/75 H 96 11/15/19 23:45 44 L 11/15/19 23:13 36.5 C 42 L 18 162/77 H 92 PG Care Time/CCT Total # of Minutes Spent Total Time Spent with Patient: Total time spent is greater than 50% in coordination of care (as documented) at patient's floor/unit and/or counseling patient: Coding Level of Care Code 64093 Inpt Consult Level 5 Diagnoses Nephrotic syndrome N04.9 CKD (chronic kidney disease) stage 3, GFR 30-59 ml/min N18.3 Acute kidney injury N17.9 Hypertension I10 Diabetic nephropathy E11.21 Volume overload E87.70
--- NOTE | 2019-11-16 15:21 | Hospitalist Progress Note ---
Date of Service November 16, 2019 Assessment & Plan (1) Pulmonary edema: Increased weight gain pulmonary edema on CXR and reduced breath sounds to auscultation. - Continue Lasix, but switch to oral tomorrow. - Monitor weights and I&Os. - Monitor Cr -> Mildly rising today. Discussed with nephrology; will accept mild azotemia given need for diuresis. (2) Chronic kidney disease (CKD) stage G3b/A1, moderately decreased glomerular filtration rate (GFR) between 30-44 mL/min/1.73 square meter and albuminuria creatinine ratio less than 30 mg/g: Significant proteinuria likely leading to pulmonary edema in setting of PO lasix no longer being effective with gut edema. Baseline Cr ~1.6-1.7. - As long as improving no need for nephrology consult at present - Monitor -> Cr 1.66 on admission; considering this baseline. Monitor with diuresis. Up slightly today. (3) Acute on chronic heart failure with preserved ejection fraction: Primarily problem is with his kidney function and protein loss rather than his heart. - Given gradual increase without chest pain no need to repeat troponin (negative on admission) - No need to repeat TTE (last performed in August with preserved EF) - Treatment with Lasix as above (4) Uncontrolled type 1 diabetes mellitus, with long-term current use of insulin: HbA1C 7.6% in August. - Consult pharmacy for glycemic management. -> Sugars good today. (5) Mild obstructive sleep apnea: Trialing CPAP HS - patient does not use this at home however but would be beneficial given concurrent pulmonary edema during hospitalization. (6) CAD, multiple vessel: No chest pain at present. - Continue his usual ASA, losartan, atorvastatin. Unable to take beta-luiz due to bradycardia. (7) Restless leg syndrome: - Continue ropinirole 1mg PO daily (8) Hypertension: Controlled sometimes and not others. Presently 180/80. - Continue amlodipine 10mg PO daily, losartan 100mg PO daily. (9) Pressure ulcer of BKA stump, stage 3: Per patient opened up several weeks ago. - Seen by Wound RN with recs for dressing. No indication of active infection. (10) DVT prophylaxis: Heparin Admission and Anticipated Discharge Date Admission Date: November 14, 2019 Subjective Feeling less chest tightness today. Breathing more comfortably. Reports no fevers/chills, chest pain, shortness of breath, abdominal pain, nausea, or vomiting. Physical Exam Constitutional: WD/WN, vitals as above Eyes: EOM intact bilaterally; no conjunctival abnormality ENMT: external ear and nose normal, oropharynx normal Neck: trachea midline, no thyromegaly normal visual inspection Respiratory: normal respiratory effort, lungs clear to auscultation no respiratory distress Cardiovascular: Rate/Rhythm: regular rate and regular rhythm Vessels: no JVD Extremities: + edema Gastrointestinal (Abdomen): Inspection/Auscultation: abdomen normal to inspection; abdomen not distended Musculoskeletal: no cyanosis or clubbing, extremities motor strength 5/5 Skin: no rashes, warm and dry Neurologic: moves all extremities and awake Psychiatric: Orientation: alert, oriented to person and cooperative Results & Data Results & Data ([facility]) Vital Signs (Past 12 Hours) Vital Signs Temp Pulse Pulse Pulse Resp BP Pulse Ox 11/16/19 11:26 36.8 C 53 L 18 180/79 H 93 11/16/19 07:15 46 L 11/16/19 07:13 36.6 C 56 L 18 164/76 H 93 11/16/19 03:20 36.6 C 49 L 20 153/75 H 96 PG Care Time/CCT Total # of Minutes Spent Total Time Spent with Patient: Total time spent is greater than 50% in coordination of care (as documented) at patient's floor/unit and/or counseling patient: Coding Level of Care Code 23317 Subseq Hosp Care Lvl 2 Diagnoses Pulmonary edema J81.1 Chronic kidney disease (CKD) stage G3b/A1, moderately decreased glomerular filtration rate (GFR) between 30-44 mL/min/1.73 square meter and albuminuria creatinine ratio less than 30 mg/g N18.3 Acute on chronic heart failure with preserved ejection fraction I50.33 Uncontrolled type 1 diabetes mellitus, with long-term current use of insulin E10.65 Mild obstructive sleep apnea G47.33 CAD, multiple vessel I25.10 Restless leg syndrome G25.81 Hypertension I10 Pressure ulcer of BKA stump, stage 3 T87.89; L89.893 DVT prophylaxis Z29.9
--- NOTE | 2019-11-16 17:37 | Electrocardiogram Report ---
Test Reason : Blood Pressure : / mmHG Vent. Rate : 056 BPM Atrial Rate : 056 BPM P-R Int : 224 ms QRS Dur : 084 ms QT Int : 454 ms P-R-T Axes : 045 078 106 degrees QTc Int : 438 ms Sinus bradycardia with 1st degree A-V block with Premature atrial complexes Low voltage QRS Abnormal ECG When compared with ECG of 14-NOV-2019 11:05, Premature atrial complexes are now Present OR interval has increased Confirmed by Jose Francisco Medina ([id number]) on 11/16/2019 5:36:44 PM Referred By: REFERRED SELF Confirmed By:Jose Medina
[2019-11-16] MEDS: ATORVASTATIN 40 MG TAB PO SCH (20:21)
[2019-11-16] MEDS: LATANOPROST 0.005% OP SOLN 2.5 ML BTL OPB SCH (20:24)
[2019-11-17 06:36] LABS: Albumin Level 3.2 gm/dl (3.4-5.0); BUN Creatinine Ratio 18.4 (10-20); Calcium 8.5 mg/dl (8.5-10.1); Creatinine Clr Calc Pharmacy 40.8 ml/min; Est GFR (African American) 37.6; Est GFR (Non-African American) 32.4; Magnesium 2.5 mg/dl (1.8-2.4); Potassium 4.4 mmol/L (3.5-5.1)
[2019-11-17 06:37] LABS: Phosphorus 4.1 mg/dl (2.5-4.9)
[2019-11-17] MEDS: HEPARIN SOD 5,000 UNIT/0.5 ML VIAL SQ SCH ×2 (08:23→21:03)
[2019-11-17] MEDS: ASPIRIN 325 MG ECTAB PO SCH (08:24)
[2019-11-17] MEDS: ROPINIROLE HCL 1 MG TABLET PO SCH ×2 (08:24→21:02)
[2019-11-17] MEDS: LOSARTAN POTASSIUM 50 MG TAB PO SCH (08:25)
[2019-11-17] MEDS: CHOLECALCIFEROL 1,000 UNITS 25 MCG TAB PO SCH (08:25)
[2019-11-17] MEDS: PANTOprazole 40 MG TAB PO SCH (08:25)
[2019-11-17] MEDS: ASCORBIC ACID 500 MG TAB PO SCH (08:25)
[2019-11-17] MEDS: TIMOLOL GFS 0.5% OPH SOLN 74 DROPS/5 ML BTL OPB SCH ×2 (08:26→21:02)
[2019-11-17] MEDS: BRIMONIDINE TARTRATE-P 0.15% 5 ML BTL OP SCH ×2 (08:26→21:03)
[2019-11-17] MEDS: AMLODIPINE BESYLATE 5 MG TAB PO SCH (08:28)
[2019-11-17] MEDS: INSULIN ASPART 100 UNITS/ML 3 ML PEN SC SCH ×4 (08:30→21:04)
[2019-11-17] MEDS: HumuLIN N 10 ML VIAL SC SCH ×2 (08:35→17:09)
--- NOTE | 2019-11-17 10:18 | Nephrology Progress Note ---
Date of Service November 17, 2019 Assessment & Plan (1) Nephrotic syndrome: [place] has stage IIIB CKD and nephrotic syndrome in the setting of diabetic nephropathy, baseline creatinine has been variable mostly around 1.6-1.8 with repeated episode of ABDOULAYE. Admitted to the hospital with diuretic resistant volume overload and progressive shortness of breath over last 1 week despite being on higher dose of diuretics. Received Lasix 60 mg IV twice a day with improvement in volume status and remained net negative more than 1 L per day. slight change in creatinine however electrolyte acceptable. Considering suboptimal response to po lasix, switched to Bumex on 11/16/19. Seems to eb responding much better to Bumex, >2 L net negative, slight changes in creatinine. -- Continue on Bumex 1 mg orally twice daily, Monitor urine output, aim for net -0.5 to 1 L, if continues to respond well, would continue on Bumex 1 mg BID. Would like to monitor inpatient next 24 h and if renal function and electrolyte remain acceptable and have adequate response to current dose of Bumex, can be discharge home tomowwor with repeat renal panel Wednesday11/20/19. In order to maintain you volume media, may need to accept mild azotemia and change in renal function. --monitor renal function electrolytes closely with daily renal panel --continue on amlodipine and losartan for now, continue to hold beta-luiz with heart rate in high 40s to 50s. If blood pressures remain poorly controlled, will consider adding hydralazine. Will follow Admission and Anticipated Discharge Date Admission Date: November 14, 2019 Subjective [place] was seen and examined in his room this am. Doing much better, SOB significantly improved. Responding to Bumex , net negative >2 L. BP still above goal. Slight worsenign of creatinine. Review of Systems Review of Systems: All systems reviewed & are unremarkable except as noted in HPI & below Physical Exam Constitutional: well developed and well nourished; no acute distress Respiratory: normal respiratory effort, lungs clear to auscultation Cardiovascular: Rate/Rhythm: regular rate and regular rhythm Heart Sounds: normal S1 and normal S2 Extremities: + edema Neurologic: moves all extremities and awake; not confused Psychiatric: A+Ox3, euthymic affect Results & Data ([place]) Vital Signs (Past 12 Hours) Vital Signs Temp Pulse Pulse Resp BP Pulse Ox 11/17/19 07:28 37.0 C 51 L 16 155/74 H 95 11/17/19 03:25 36.7 C 46 L 18 147/61 H 95 11/17/19 02:08 46 L 11/16/19 23:46 36.5 C 45 L 18 123/64 92 PG Care Time/CCT Total # of Minutes Spent Total Time Spent with Patient: Total time spent is greater than 50% in coordination of care (as documented) at patient's floor/unit and/or counseling patient: Coding Level of Care Code 23182 Subseq Hosp Care Lvl 3 Diagnoses Nephrotic syndrome N04.9
--- NOTE | 2019-11-17 11:46 | Pharmacy Report ---
Pharmacy Glycemic Short Note 2 - Date of Service November 17, 2019 - Glycemic Short BSG Results (Last 24 hours): 11/16/19 11/16/19 11/17/19 16:20 20:05 05:46 Glucose 147 H POC Glucose 141 H 150 H 11/17/19 11/17/19 07:43 11:22 Glucose POC Glucose 140 H 212 H OUTPATIENT ANTIDIABETIC REGIMEN: * NPH 30 units SC BIDM + Regular Insulin SS (30 units SC QDB + 15-20 units SC QDL + 25 untis SC QDD) * A1c = 7.6% (09/07/2019) ASSESSMENT: 11/17/19: * Patient has received 30 units of insulin over the past 24hrs * 20 units of basal + 10 units of bolus * BSGs ranged 91-163 mg/dL, well controlled although GLU was 66 on AM labs * Insulin regimen significantly decreased yesterday. AM fasting BSG in goal range this AM at 140 mg/dl. * Pre-lunch BSG elevated today --> will tighten CHO coverage. * Conservative increase since Scr is rising which can lead to increased insulin sensitivity/response to insulin 11/15: * Excellent glycemic control over the past 24 hours. BSG running a little low overnight/early AM. No mention of s/y of hypoglycemia. * Fasting BSG of 91 mg/dL is slightly below goal for inpatient control. I will decrease NPH scale with breakfast so that patient gets a maximum of 15 units (rather than 20 units). Change PM dose of NPH to set dose of 10 units to avoid overnight lows. * Post prandial BSGs are at goal, therefore no changes to Novolog. 11/14: * 69 yo M admitted for pulmonary edema. h/o T1DM and known to Pharmacy Glycemic service. * Patient received a total of 42 units of insulin yesterday (40 units of basal and 2 units of bolus) * Fasting BSG of 118 mg/dL is at goal. Will continue with reduced dose of NPH. * Post prandial BSGs were below goal yesterday despite minimal Novolog. CF and CR were loosened overnight. Appetite has improved today. May need to tighten carb coverage in near future. PLAN FOR INPATIENT GLYCEMIC CONTROL: * Basal insulin * NPH 10-12 units SQ with breakfast: 10 units for BSG < 110 12 units for BSG 110 mg/dL or more * NPH 10 units SQ with dinner * Bolus insulin: tighten CR * NovoLog per scale ACHS or Q6hrs while NPO * Goal Range: Low 120 mg/dL - High 150 mg/dL * Correction Factor: 30 mg/dL/unit * Nutritional / Prandial insulin per carb ratio of 1 unit per 8 grams CHO consumed PLAN FOR DISCHARGE: * Most recent A1c of 7.6% is acceptable on current outpatient regimen. * Continue home regimen on discharge, unless patient reports frequent hypoglycemia. Thank you.
--- NOTE | 2019-11-17 11:54 | Hospitalist Progress Note ---
Date of Service November 17, 2019 Assessment & Plan (1) Pulmonary edema: Increased weight gain pulmonary edema on CXR and reduced breath sounds to auscultation. - Continue Lasix, but switch to oral tomorrow. - Monitor weights and I&Os. - Monitor Cr -> Mildly rising today to 2.0. Will do Bumex 1 mg PO BID and watch I&Os. (2) Chronic kidney disease (CKD) stage G3b/A1, moderately decreased glomerular filtration rate (GFR) between 30-44 mL/min/1.73 square meter and albuminuria creatinine ratio less than 30 mg/g: Significant proteinuria likely leading to pulmonary edema in setting of PO lasix no longer being effective with gut edema. Baseline Cr ~1.6-1.7. - Monitor -> Cr 1.66 on admission; considering this baseline. Monitor with diuresis. Up slightly today at 2.0. (3) Acute on chronic heart failure with preserved ejection fraction: Primarily problem is with his kidney function and protein loss rather than his heart. - Given gradual increase without chest pain no need to repeat troponin (negative on admission). - No need to repeat TTE (last performed in August with preserved EF) - Treatment with Bumex as above (4) Uncontrolled type 1 diabetes mellitus, with long-term current use of in sulin: HbA1C 7.6% in August. - Consult pharmacy for glycemic management. -> Sugars good today. Generally 140- 210. (5) Mild obstructive sleep apnea: Trialing CPAP HS - patient does not use this at home however but would be beneficial given concurrent pulmonary edema during hospitalization. (6) CAD, multiple vessel: No chest pain at present. - Continue his usual ASA, losartan, atorvastatin. Unable to take beta-luiz due to bradycardia. (7) Restless leg syndrome: - Continue ropinirole 3mg PO daily (8) Hypertension: Controlled sometimes and not others. Presently 155/70. Seems better as we diurese. - Continue amlodipine 10mg PO daily, losartan 100mg PO daily. (9) Pressure ulcer of BKA stump, stage 3: Per patient opened up several weeks ago. - Seen by Wound RN with recs for dressing. No indication of active infection. (10) DVT prophylaxis: Heparin Admission and Anticipated Discharge Date Admission Date: November 14, 2019 Subjective Doing a lot better. Breathing more comfortably. Reports no fevers/chills, chest pain, shortness of breath, abdominal pain, nausea, or vomiting. Physical Exam Constitutional: WD/WN, vitals as above Eyes: EOM intact bilaterally; no conjunctival abnormality ENMT: external ear and nose normal, oropharynx normal Neck: trachea midline, no thyromegaly normal visual inspection Respiratory: normal respiratory effort, lungs clear to auscultation no respiratory distress Cardiovascular: Rate/Rhythm: regular rate and regular rhythm Vessels: no JVD Extremities: + edema Gastrointestinal (Abdomen): Inspection/Auscultation: abdomen normal to inspection; abdomen not distended Musculoskeletal: no cyanosis or clubbing, extremities motor strength 5/5 Skin: no rashes, warm and dry Neurologic: moves all extremities and awake Psychiatric: Orientation: alert, oriented to person and cooperative Results & Data Results & Data ([facility]) Vital Signs (Past 12 Hours) Vital Signs Temp Pulse Pulse Resp BP Pulse Ox 11/17/19 11:28 36.8 C 111 H 16 156/70 H 90 11/17/19 10:23 47 L 11/17/19 07:28 37.0 C 51 L 16 155/74 H 95 11/17/19 03:25 36.7 C 46 L 18 147/61 H 95 11/17/19 02:08 46 L PG Care Time/CCT Total # of Minutes Spent Total Time Spent with Patient: Total time spent is greater than 50% in co ordination of care (as documented) at patient's floor/unit and/or counseling patient: Coding Level of Care Code 05799 Subseq Hosp Care Lvl 2 Diagnoses Pulmonary edema J81.1 Chronic kidney disease (CKD) stage G3b/A1, moderately decreased glomerular filtration rate (GFR) between 30-44 mL/min/1.73 square meter and albuminuria creatinine ratio less than 30 mg/g N18.3 Acute on chronic heart failure with preserved ejection fraction I50.33 Uncontrolled type 1 diabetes mellitus, with long-term current use of insulin E10.65 Mild obstructive sleep apnea G47.33 CAD, multiple vessel I25.10 Restless leg syndrome G25.81 Hypertension I10 Pressure ulcer of BKA stump, stage 3 T87.89; L89.893 DVT prophylaxis Z29.9
[2019-11-17] MEDS ORDERED: BUMETANIDE 1 MG TAB PO ONE (11:58)
[2019-11-17] MEDS: ATORVASTATIN 40 MG TAB PO SCH (21:02)
[2019-11-17] MEDS: LATANOPROST 0.005% OP SOLN 2.5 ML BTL OPB SCH (21:03)
[2019-11-18] MEDS: LOSARTAN POTASSIUM 50 MG TAB PO SCH (08:08)
[2019-11-18] MEDS: BRIMONIDINE TARTRATE-P 0.15% 5 ML BTL OP SCH (08:08)
[2019-11-18] MEDS: AMLODIPINE BESYLATE 5 MG TAB PO SCH (08:08)
[2019-11-18] MEDS: ASPIRIN 325 MG ECTAB PO SCH (08:08)
[2019-11-18] MEDS: ROPINIROLE HCL 1 MG TABLET PO SCH (08:08)
[2019-11-18] MEDS: PANTOprazole 40 MG TAB PO SCH (08:09)
[2019-11-18] MEDS: TIMOLOL GFS 0.5% OPH SOLN 74 DROPS/5 ML BTL OPB SCH (08:09)
[2019-11-18] MEDS: CHOLECALCIFEROL 1,000 UNITS 25 MCG TAB PO SCH (08:09)
[2019-11-18] MEDS: ASCORBIC ACID 500 MG TAB PO SCH (08:09)
[2019-11-18] MEDS: HEPARIN SOD 5,000 UNIT/0.5 ML VIAL SQ SCH (08:09)
[2019-11-18] MEDS: HumuLIN N 10 ML VIAL SC SCH (08:10)
[2019-11-18] MEDS: INSULIN ASPART 100 UNITS/ML 3 ML PEN SC SCH ×2 (08:10→12:10)
[2019-11-18 09:24] LABS: Hematocrit (blood only) 34.9 % (42-52); Hemoglobin 11.5 g/dL (14.0-18.0); Mean Corpuscular Hemoglobin 31.4 pg (25-34); Mean Corpuscular Volume 95.4 fL (80-100); Mean Platelet Volume 12.5 fL (7.4-10.4); Platelet Count 144 K/uL (130-400); RDW Coefficient of Variation 13.1 % (11.5-14.5); RDW Standard Deviation 45.5 fL (36.4-46.3); Red Blood Count 3.66 M/uL (4.7-6.1); White Blood Count 4.85 K/uL (4.8-10.8)
[2019-11-18 10:05] LABS: Albumin Level 3.1 gm/dl (3.4-5.0); BUN Creatinine Ratio 18.5 (10-20); Calcium 8.5 mg/dl (8.5-10.1); Creatinine Clr Calc Pharmacy 38.8 ml/min; Est GFR (African American) 36.3; Est GFR (Non-African American) 31.3; Phosphorus 3.7 mg/dl (2.5-4.9); Potassium 4.2 mmol/L (3.5-5.1)
--- NOTE | 2019-11-18 10:47 | Pharmacy Report ---
Pharmacy Glycemic Short Note 2 - Date of Service November 18, 2019 - Glycemic Short BSG Results (Last 24 hours): 11/17/19 11/17/19 11/17/19 11:22 16:22 20:30 Glucose POC Glucose 212 H 168 H 126 H 11/18/19 11/18/19 07:51 08:55 Glucose 178 H POC Glucose 109 H OUTPATIENT ANTIDIABETIC REGIMEN: * NPH 30 units SC BIDM + Regular Insulin SS (30 units SC QDB + 15-20 units SC QDL + 25 untis SC QDD) * A1c = 7.6% (09/07/2019) ASSESSMENT: 11/18/19: * Patient has received 42 units of insulin over the past 24hrs * 22 units of basal + 20 units of bolus * BSGs [phone] mg/dL, well controlled * Pre-lunch BSG elevated yesterday --> CHO coverage tightened slightly * No changes needed today 11/17/19: * Patient has received 30 units of insulin over the past 24hrs * 20 units of basal + 10 units of bolus * BSGs ranged 91-163 mg/dL, well controlled although GLU was 66 on AM labs * Insulin regimen significantly decreased yesterday. AM fasting BSG in goal range this AM at 140 mg/dl. * Pre-lunch BSG elevated today --> will tighten CHO coverage. * Conservative increase since Scr is rising which can lead to increased insulin sensitivity/response to insulin 11/15: * Excellent glycemic control over the past 24 hours. BSG running a little low overnight/early AM. No mention of s/y of hypoglycemia. * Fasting BSG of 91 mg/dL is slightly below goal for inpatient control. I will decrease NPH scale with breakfast so that patient gets a maximum of 15 units (rather than 20 units). Change PM dose of NPH to set dose of 10 units to avoid overnight lows. * Post prandial BSGs are at goal, therefore no changes to Novolog. 11/14: * 69 yo M admitted for pulmonary edema. h/o T1DM and known to Pharmacy Glycemic service. * Patient received a total of 42 units of insulin yesterday (40 units of basal and 2 units of bolus) * Fasting BSG of 118 mg/dL is at goal. Will continue with reduced dose of NPH. * Post prandial BSGs were below goal yesterday despite minimal Novolog. CF and CR were loosened overnight. Appetite has improved today. May need to tighten carb coverage in near future. PLAN FOR INPATIENT GLYCEMIC CONTROL: No changes needed at this time * Basal insulin * NPH 10-12 units SQ with breakfast: 10 units for BSG < 110 12 units for BSG 110 mg/dL or more * NPH 10 units SQ with dinner * Bolus insulin: * NovoLog per scale ACHS or Q6hrs while NPO * Goal Range: Low 120 mg/dL - High 150 mg/dL * Correction Factor: 30 mg/dL/unit * Nutritional / Prandial insulin per carb ratio of 1 unit per 8 grams CHO consumed PLAN FOR DISCHARGE: * Most recent A1c of 7.6% is acceptable on current outpatient regimen. * Continue home regimen on discharge, unless patient reports frequent hypogl ycemia. Thank you.
[2019-11-18] MEDS ORDERED: BUMETANIDE 1 MG TAB PO ONE (11:04)
--- NOTE | 2019-11-18 13:46 | Nephrology Progress Note ---
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 No additional evaluation necessary at this time. Close outpatient follow up with be necessary. Tolerating losartan 100 mg daily. Volume status improved. BP acceptable. (2) Volume overload: Improved. Tolerating Bumex well. Continue 1 mg daily with close prospective monitoring. Daily weights. (3) Acute kidney injury: Improving with supportive care. Creatinine approaching baseline. Remains on losartan. Risk factor modification reviewed with patient today. (4) Chronic kidney disease (CKD) stage G3b/A1, moderately decreased glomerular filtration rate (GFR) between 30-44 mL/min/1.73 square meter and albuminuria creatinine ratio less than 30 mg/g: CKD III atttributed to diabetic nephropathy with A3 proteinuria. Baseline creatinine 1.6-1.8 mg/dL. Multiple episodes of ABDOULAYE. Follows with Dr. Richardson as an outpatient. Outpatient follow up arranged. (5) Hypertension: BP reasonable. Tolerating amlodipine and losartan well. Volume status improving with Bumex. Beta luiz held due to bradycardia. CCB or melissa luiz may be considered in the future as needed. Monitoring at home encourged. Admission and Anticipated Discharge Date Admission Date: November 14, 2019 Subjective No acute events overnight. Dayton was seen and evaluated this morning. He felt well. No acute complaints. Plan for discharge and outpatient follow up reviewed. Review of Systems Constitutional: no weight loss, no weight gain and no problem reported Eyes: no problem reported Ear, Nose, Mouth, Throat: no problem reported Respiratory: no problem reported Cardiovascular: no problem reported Gastrointestinal: no problem reported Musculoskeletal: no problem reported Integumentary: no problem reported Neurologic: no problem reported Psychiatric: no problem reported Endocrine: no problem reported Hematologic / Lymphatic: no problem reported Physical Exam Constitutional: well developed; no acute distress Eyes: no scleral abnormality and no corneal abnormality ENMT: Mouth: no oral mucosal abnormality and oral mucous membranes not dry Neck: normal visual inspection and trachea midline Respiratory: normal respiratory effort Auscultation: lungs clear to auscultation bilaterally Cardiovascular: Rate/Rhythm: regular rate Heart Sounds: normal S1 and normal S2 Extremities: no edema Musculoskeletal: Extremities: no cyanosis and no clubbing Skin: normal turgor; no lesions Neurologic: Motor/Sensory: no tremor and no asterixis Psychiatric: Orientation: alert and oriented x 3 Results & Data ([facility]) Vital Signs (Past 12 Hours) Vital Signs Temp Pulse Pulse Resp BP Pulse Ox 11/18/19 11:53 36.9 C 52 L 18 169/65 H 94 11/18/19 09:00 46 L 11/18/19 07:47 36.8 C 70 17 171/76 H 47 L 11/18/19 03:35 36.6 C 46 L 18 163/79 H 93 Laboratory Results Laboratory Results - last 24 hr 11/17/19 11/17/19 11/18/19 16:22 20:30 07:51 WBC RBC Hgb Hct MCV MCH MCHC RDW Std Deviation RDW Coeff of Jose Plt Count MPV Sodium Potassium Chloride Carbon Dioxide Anion Gap BUN Creatinine Est Cr Clr Drug Dosing Est GFR ( Amer) Est GFR (Non-Af Amer) BUN/Creatinine Ratio Glucose POC Glucose 168 H 126 H 109 H Calcium Phosphorus Albumin 11/18/19 11/18/19 11/18/19 08:55 08:55 11:54 WBC 4.85 RBC 3.66 L Hgb 11.5 L Hct 34.9 L MCV 95.4 MCH 31.4 MCHC 33.0 RDW Std Deviation 45.5 RDW Coeff of Jose 13.1 Plt Count 144 MPV 12.5 H Sodium 141 Potassium 4.2 Chloride 109 H Carbon Dioxide 26 Anion Gap 6.0 BUN 38 H Creatinine 2.07 H Est Cr Clr Drug Dosing 38.8 Est GFR ( Amer) 36.3 Est GFR (Non-Af Amer) 31.3 BUN/Creatinine Ratio 18.5 Glucose 178 H POC Glucose 145 H Calcium 8.5 Phosphorus 3.7 Albumin 3.1 L PG Care Time/CCT Total # of Minutes Spent Total Time Spent with Patient: Total time spent is greater than 50% in coordination of care (as documented) at patient's floor/unit and/or counseling patient: Coding Level of Care Code 86093 Subseq Hosp Care Lvl 3 Diagnoses Nephrotic syndrome N04.9 Volume overload E87.70 Acute kidney injury N17.9 Chronic kidney disease (CKD) stage G3b/A1, moderately decreased glomerular filtration rate (GFR) between 30-44 mL/min/1.73 square meter and albuminuria creatinine ratio less than 30 mg/g N18.3 Hypertension I10
--- NOTE | 2019-11-18 14:03 | Discharge Summary ---
Date of Service November 18, 2019 Admission HPI Per Admitting Provider Dayton Em is a 69 year old male with known CKD with significant proteinuria who presents to the ER with increasing fatigue, shortness of breath on exertion, swelling in his hands and weight gain getting gradually worse over the last 2 weeks. He does not weigh himself regularly but thinks he may have gained 12lb. 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 He is under wound care for his left leg stump and this has been healing well. 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 He took lasix 40mg BID for 3 days but without any substantial change in his symptoms or urine output. He reports no change to his diet and he tries to reduce the salt content of his food. Not been drinking more water. Associated orthopnea, PND, no claudication, presyncope or syncopal episodes. He was recently admitted in August with dizziness episodes that were determined to be BPPV but he reports these have now resolved. Principal Diagnosis Hypervolemia from CKD Discharge Exam Constitutional WD/WN, vitals as above Eyes EOM intact bilaterally; no conjunctival abnormality ENMT external ear and nose normal, oropharynx normal Neck trachea midline, no thyromegaly normal visual inspection Respiratory normal respiratory effort, lungs clear to auscultation no respiratory distress Cardiovascular Rate/Rhythm: regular rate and regular rhythm Vessels: no JVD Extremities: + edema Gastrointestinal (Abdomen) Inspection/Auscultation: abdomen normal to inspection; abdomen not distended Musculoskeletal no cyanosis or clubbing, extremities motor strength 5/5 Skin no rashes, warm and dry Neurologic moves all extremities and awake Psychiatric Orientation: alert, oriented to person and cooperative Discharge Data Allergies Allergy/AdvReac Type Severity Reaction Status Date / Time Bactrim Allergy Intermediate RASH Verified 09/21/17 13:46 Sulfa (Sulfonamide Allergy Intermediate RASH Verified 11/10/19 11:20 Antibiotics) sulfamethoxazole Allergy Intermediate RASH Verified 11/10/19 11:20 trimethoprim Allergy Intermediate RASH Verified 11/10/19 11:20 Quinolones Allergy Mild ITCHINESS Verified 11/10/19 11:20 Consultations 11/14/19 12:04 ED Decision to Admit Stat 11/16/19 07:21 Consult Nephrology Routine Ordered Studies 11/14/19 15:30 US venous doppler LE RT Stat Hospital Course (1) Pulmonary edema: Increased weight gain pulmonary edema on CXR and reduced breath sounds to auscultation. - Monitor Cr -> Mildly rising today to 2.1. Discharged on Bumex 1 mg PO BID on Wednesday then daily after. Watch weights. Plan for BMP Wednesday or Wednesday to watch Cr. Follow up with PCP or nehprology. (2) Chronic kidney disease (CKD) stage G3b/A1, moderately decreased glomerular filtration rate (GFR) between 30-44 mL/min/1.73 square meter and albuminuria creatinine ratio less than 30 mg/g: Significant proteinuria likely leading to pulmonary edema in setting of PO lasix no longer being effective with gut edema. Baseline Cr ~1.6-1.7. - Monitor -> Cr 1.66 on admission; considering this baseline. Monitor with diuresis. Up slightly today at 2.1. BMP as above. (3) Acute on chronic heart failure with preserved ejection fraction: Primarily problem is with his kidney function and protein loss rather than his heart. - Given gradual increase without chest pain no need to repeat troponin (negative on admission). - No need to repeat TTE (last performed in August with preserved EF) - Treatment with Bumex as above (4) Uncontrolled type 1 diabetes mellitus, with long-term current use of insulin: HbA1C 7.6% in August. - Consult pharmacy for glycemic management. -> Sugars good today. Generally 140- 210. (5) Mild obstructive sleep apnea: Trialing CPAP HS - patient does not use this at home however but would be beneficial given concurrent pulmonary edema during hospitalization. (6) CAD, multiple vessel: No chest pain at present. - Continue his usual ASA, losartan, atorvastatin. Unable to take beta-luiz due to bradycardia. (7) Restless leg syndrome: - Continue ropinirole 3mg PO daily (8) Hypertension: Controlled sometimes and not others. Presently 155/70. Seems better as we diurese. - Continue amlodipine 10mg PO daily, losartan 100mg PO daily. (9) Pressure ulcer of BKA stump, stage 3: Per patient opened up several weeks ago. - Seen by Wound RN with recs for dressing. No indication of active infection. (10) DVT prophylaxis: Heparin Total Time Total Time Spent Total Time Spent (In Minutes): 35 Discharge Plan Discharge Items Patient Disposition: Home - Home Health Services Reason For Visit: PULMONARY EDEMA,SHORTNESS OF BREATH ON EXERTION Discharge Diagnosis: Pulmonary edema Activity: Resume your previous activity Non-emergency contact: Primary Care Provider and Cannery Worker Call non-emergency contact if: your symptoms worsen Follow-up/Referrals: Leah Wolf DO [Primary Care Provider] - Diet: Dialysis Renal and Heart Healthy Addtl Attending Provider Instructions: You were admitted to the hospital with shortness of breath from fluid that built up in the lungs. This was due to your kidneys not filtering water as well as they used to. We started you on IV medication to pull off fluid, and we have transitioned to a new oral water pill (called a Bumex) which will help get fluid off more effectively. Please take the Bumex 2 times tomorrow (Wednesday). Take it in the morning with breakfast, then again in the afternoon (say 2:00pm or 3:00pm). Then take it once per day after that. On Wednesday or Wednesday, you will get your labs checked to be sure your kidneys are staying happy. THIS IS SUPER IMPORTANT! Please go home and weigh yourself. You should try to stay at your current weight. Our weight for you today is 235 pounds. Weigh yourself every day, and if you see your weight edging up (if you go up by more than 2-3 pounds), please call your PCP or Dr. Richardson as you might need to take extra doses of your Bumex for a few days to even back out. Please follow up with your primary doctor or Dr. Richardson in the clinic next week to be sure you are doing well. Pending Studies at Discharge: No Stand-Alone Forms: [email or web address], Smoking Cessation Medications and DC Order Prescriptions: New bumetanide 1 mg tablet 1 mg PO DAILY Qty: 30 RF: 0 Continued (DME) FreeStyle Farhad 14 Day Sensor Kit See Rx Instructions .ROUTE .MEDSUPPLY RF: 11 (DME) FreeStyle Farhad 14 Day [place] Misc See Rx Instructions [id number] .MEDSUPPLY Qty: 1 RF: 0 ropinirole 1 mg tablet 3 mg PO DAILY Qty: 360 RF: 1 atorvastatin [Lipitor] 80 mg tablet 80 mg PO QPM Qty: 90 RF: 1 (DME) OneTouch Ultra Blue Test Strip Strip See Dose Instructions .ROUTE .MEDSUPPLY Qty: 100 RF: 5 (DME) Powered Wheelchair Misc See Rx Instructions .ROUTE .MEDSUPPLY Qty: 1 RF: 0 omeprazole 20 mg capsule,delayed release(DR/EC) 20 mg PO DAILY Qty: 90 RF: 3 Novolin R Regular U-100 Insuln 100 unit/mL solution 1 sliding scale dose SQ .COMPLEX RF: 0 (DME) lancets [[facility]Touch UltraSoft Lancets] [facility] See Dose Instructions .ROUTE .MEDSUPPLY Qty: 50 RF: 0 brimonidine 0.15 % drops 1 drops OP BID RF: 0 [id number] Tablet 1 tab PO DAILY RF: 0 potassium 99 mg tablet 99 mg PO DAILY RF: 0 multivitamin with minerals [Hair,Skin and Nails] Tablet 1 tab PO DAILY RF: 0 ascorbic acid (vitamin C) 1,000 mg tablet 4,000 mg PO DAILY RF: 0 sodium bicarbonate 650 mg tablet 650 mg PO BID Qty: 60 RF: 3 amlodipine 10 mg tablet 10 mg PO DAILY Qty: 90 RF: 3 losartan 100 mg tablet 100 mg PO DAILY Qty: 90 RF: 3 latanoprost [Xalatan] 0.005 % Drops 1 drp OPHTHALMIC (EYE) PM RF: 0 aspirin 325 mg Tablet 325 mg PO DAILY RF: 0 timolol maleate 0.25 % Drops 1 drp OPHTHALMIC (EYE) BID RF: 0 Novolin N NPH U-100 Insulin 100 unit/mL suspension 30 units SUBCUT .COMPLEX RF: 0 cholecalciferol (vitamin D3) [Vitamin D3] 50 mcg (2,000 unit) capsule 2,000 units PO DAILY RF: 0 Discontinued furosemide 40 mg tablet 40 mg PO DAILY Qty: 90 RF: 3 Discharge Orders: Discharge Order (Routine); Ordered 11/18/19 Ordered By: Ye Gonzalez Admission Data Admit Date/Time: 11/14/19 12:51 Attending Provider: Ye Gonzalez Admit Provider: Jake Ware Primary Care Provider: Leah Wolf Other Providers: Ye Gonzalez ; Shakira Richardson Coding Level of Care Code D/C Day Management >30 mins Diagnoses Pulmonary edema J81.1 Chronic kidney disease (CKD) stage G3b/A1, moderately decreased glomerular filtration rate (GFR) between 30-44 mL/min/1.73 square meter and albuminuria creatinine ratio less than 30 mg/g N18.3 Acute on chronic heart failure with preserved ejection fraction I50.33 Uncontrolled type 1 diabetes mellitus, with long-term current use of insulin E10.65 Mild obstructive sleep apnea G47.33 CAD, multiple vessel I25.10 Restless leg syndrome G25.81 Hypertension I10 Pressure ulcer of BKA stump, stage 3 T87.89; L89.893 DVT prophylaxis Z29.9
== END 2019-11-18 14:15 | disposition home health service (06) | DRG 291 ==
LOC: ED 10:41 → SUATTDRO 12:51 → 2N 12:51

== ENCOUNTER 2019-12-14 10:11 | Inpatient (IN) ==
[2019-12-14 10:57] LABS: Basophils # (auto) 0.02 K/uL (0-0.2); Basophils % (auto) 0.3 %; Eosinophils # (auto) 0.12 K/uL (0-0.5); Eosinophils % (auto) 1.9 %; Hemoglobin 10.9 g/dL (14.0-18.0); Immature Granulocytes # (auto) 0.01 K/uL (0.00-0.02); Immature Granulocytes % (auto) 0.2 %; Lymphocytes # (auto) 0.55 K/uL (1.2-3.4); Lymphocytes % (auto) 8.8 %; Mean Corpuscular Hemoglobin 31.3 pg (25-34); Mean Corpuscular Hgb Conc 32.1 g/dL (32-36); Mean Corpuscular Volume 97.7 fL (80-100); Mean Platelet Volume 11.7 fL (7.4-10.4); Monocytes # (auto) 0.47 K/uL (0.11-0.59); Monocytes % (auto) 7.5 %; Neutrophils # (auto) 5.09 K/uL (1.4-6.5); Neutrophils % (auto) 81.3 %; Platelet Count 162 K/uL (130-400); RDW Coefficient of Variation 13.4 % (11.5-14.5); RDW Standard Deviation 47.7 fL (36.4-46.3); Red Blood Count 3.48 M/uL (4.7-6.1); White Blood Count 6.26 K/uL (4.8-10.8)
--- NOTE | 2019-12-14 10:57 | XRay Report ---
XR chest 1V portable HISTORY: Atypical Chest Pain COMPARISON: Chest 11/14/2019. FINDINGS: No pneumothorax. The heart remains enlarged. There are poststernotomy changes. Diffuse inte rstitial and vascular thickening persists consistent with pulmonary edema. Patchy density within the right lung base. Small bilateral pleural effusions, unchanged. IMPRESSION: 1. No change in the pulmonary edema and bilateral pleural effusions. 2. Patchy density within the right lung base. This may represent atelectasis or pneumonia. ACT 112: Negative or not required by law. Electronically signed by: Abilio Soto M.D. 12/14/2019 10:55 AM
[2019-12-14 11:09] LABS: INR 1.2 (0.9-1.1); Partial Thromboplastin Time 29.1 Seconds (21.0-31.0); Prothrombin Time 12.4 Seconds (9.0-12.0)
[2019-12-14 11:18] LABS: Albumin Level 3.2 gm/dl (3.4-5.0); BUN Creatinine Ratio 16.5 (10-20); Calcium 8.6 mg/dl (8.5-10.1); Creatinine Clr Calc Pharmacy 49.1 ml/min; Est GFR (African American) 44.1; Est GFR (Non-African American) 38.1; Magnesium 2.5 mg/dl (1.8-2.4); Potassium 4.2 mmol/L (3.5-5.1)
[2019-12-14 11:24] LABS: Albumin Globulin Ratio 1.1 (0.9-2); Bilirubin,Total 0.5 mg/dl (0.2-1); Phosphorus 4.2 mg/dl (2.5-4.9); Total Protein 6.2 gm/dl (6.4-8.2); Troponin I 0.021 ng/ml (0-0.045)
[2019-12-14] MEDS ORDERED: BUMETANIDE 2 MG in SYRINGE 0 ML IV ONE (11:28)
--- NOTE | 2019-12-14 11:35 | Emergency Department Note ---
Impression & Plan Hypoxia, Dyspnea, CKD (chronic kidney disease), Volume overload ED Provider Note NAME: PATRICK HAAS AGE: 69 SEX: M ARRIVES VIA: Ambulance INFORMANT: Patient, ED PROVIDER(S): Yoandy Kasper MD CHIEF COMPLAINT: Shortness of breath fluid retention. PLAN: Disposition: Admit MEDICAL DECISION MAKING: The patient is a pleasant 69-year-old gentleman with a past medical history of CKD, CVA, CAD, diabetes, hypertension, hyperlipidemia, GERD, history of left lower extremity BKA in 2017 who [facility] chronic [facility] wound for the past several months but now with concern for shortness of breath and chest pain that is been ongoing for the past week in the setting of increased weight gain and fluid retention. 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 Patient denies any fevers, chills, nausea, vomiting, diarrhea, urinary symptoms. On arrival the patient is in the mid to upper 80s on room air mildly dyspneic and otherwise he is afebrile in no acute distress with stable vital signs. On exam the patient does appear overloaded with bilateral lower extremity edema mild anasarca. Lungs are diminished at the bases. EKG without overt acute ischemia. Chest x-ray is consistent with the patient's volume overload with pulmonary edema and bilateral pleural effusions. Most likely right basilar atelectasis given the patient is afebrile without leukocytosis. WBC, platelets within normal limits. H/H similar to recent values. Chemistry without acidosis. Creatinine 1.7 within recent range of values in setting of CKD. LFTs unremarkable. Troponin 0.021, within normal limits. BNP 2K in the setting of the patient's CKD without prior values for comparison. Given the patient's new hypoxia with volume overload with failed response to increased Bumex outpatient reasonable admit the patient for IV diuresis and further management. The patient is agreeable with this. The patient was ordered for 2 mg of IV Bumex. Case was discussed with Dr. Ware, [facility] hospitalist, who will evaluate the patient for admission. Triage Nursing notes reviewed and agree them. Prior medical records reviewed Vital Signs: reviewed and remarkable for no significant abnormalities Differential diagnosis: Reactive airway disease, pneumonia, pneumothorax, COPD, CHF, infections, cardiac ischemia, pulmonary embolism, musculoskeletal, gastrointestinal, as well as other pathologies. ER treatment provided: See below. Diagnostics interpreted by me: ECG: Sinus rhythm with occasional PVCs, 61 bpm, no overt ST elevation or depression, QTC 465, QRS 92. Cardiac Monitoring: An order for continuous cardiac monitoring was placed and demonstrated Sinus rhythm with occasional PVCs, 61 bpm, Laboratory studies: See below Imaging studies: R chest 1V portable HISTORY: Atypical Chest Pain COMPARISON: Chest 11/14/2019. FINDINGS: No pneumothorax. The heart remains enlarged. There are poststernotomy changes. Diffuse interstitial and vascular thickening persists consistent with pulmonary edema. Patchy density within the right lung base. Small bilateral pleural effusions, unchanged. IMPRESSION: 1. No change in the pulmonary edema and bilateral pleural effusions. 2. Patchy density within the right lung base. This may represent atelectasis or pneumonia. Consultation(s): Dr. Ware, [facility] hospitalist. HPI: The patient is a pleasant 69-year-old gentleman with a past medical history of CKD, CVA, CAD, diabetes, hypertension, hyperlipidemia, GERD, history of left lower extremity BKA in 2017 who presents emerged department from the [facility] clinic where he is being followed for a chronic stump wound for the past several months but now with concern for shortness of breath and chest pain that is been ongoing for the past week in the setting of increased weight gain and fluid retention. 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 Patient denies any fevers, chills, nausea, vomiting, diarrhea, urinary symptoms. ROS: See above HPI for pertinent positives & negatives. A total of 10 systems reviewed and were otherwise negative. PAST MEDICAL HISTORY:See Below PAST SURGICAL HISTORY:See Below FAMILY HISTORY:See Below SOCIAL HISTORY:See Below HOME MEDICATIONS:See Below ALLERGIES:See Below VITALS:See Below PHYSICAL EXAMINATION: GENERAL: Awake, alert, mildly dyspneic appearing, in no distress HENT: Normocephalic, atraumatic. Oropharynx unremarkable. EYES: Normal conjunctiva. Sclera non-icteric. NECK: Supple. No nuchal rigidity. FROM. No JVD. RESPIRATORY: Diminished breath sounds at the bases and otherwise clear. CARDIAC: Regular rate, normal rhythm. Extremities warm and well perfused. Pulses equal. ABDOMEN: Soft, non-distended. No tenderness to palpation. No rebound or guarding. No masses. RECTAL: Deferred. MUSCULOSKELETAL: Chest examination reveals no tenderness. The back is symmetrical on inspection without obvious abnormality. There is no CVA tenderness to palpation. No joint edema. LOWER EXTREMITIES: Left lower extremity BKA. Stump wound with scant purulent drainage. 1+ edema. No discoloration. NEURO: Normal sensorium. No sensory or motor deficits noted. SKIN: No rash or jaundice noted. Yoandy Kasper MD Past Med/Surg History Medical History Acute kidney injury Bilateral leg edema CAD, multiple vessel CKD (chronic kidney disease) stage 3, GFR 30-59 ml/min DDD (degenerative disc disease), lumbar Diabetic nephropathy Diabetic peripheral 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 Diastolic heart failure "echo from 05/15/14 LVEF is 55-59% (normal). LV wall thickness is mildly increased (concentric). The left atrium is moderately enlarged. The left ventricular diastolic function is moderately abnormal (grade II).Mild mitral regurgitation is present. 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 Proteinuria Restless leg syndrome Tubular adenoma of colon 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, with long-term current use of insulin Uncontrolled type 1 diabetes mellitus, with long-term current use of insulin Vitamin D deficiency Surgical History History of lumbar discectomy "01/31/09 L3-4 laminectomy with right L3-L4 discectomy" History of tonsillectomy S/P CABG x 4 (01/29/12) S/P eye surgery S/P foot surgery S/P lumbar laminectomy (05/2016) Status post below knee amputation of left lower extremity (2014) Family History Father , age 78 with prostate cancer Colorectal cancer Cardiovascular disease Diabetes Prostate cancer Grandmother (Maternal) Diabetes Mother , age 54 of throat cancer Throat cancer Denies family history of Ovarian cancer Myocardial infarction Breast cancer Social History Smoking Status: Never smoker Second Hand Exposure: No; Do You Dip or Chew Tobacco: No; Tobacco Cessation Education Requested by Patient: No Hx Alcohol Use: No Hx Substance Use: No Preferred Language: Hungarian Communication Ability: Effective Visual Impairment: No Limitations Hearing Ability: Normal Tear Down Matcher Required: No Beliefs That Will Affect Care: None marital status: Current Living Situation: Spouse current occupational status: retired 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 Feels Safe at Home: Yes Safety Concerns: Feels Safe At This Time Childhood Exposure to Second-Hand Smoke: No caffeine: No during the past year weight has: remained stable Dental Care, Regularly: Yes Physical Activity Frequency: Daily Seatbelt Use: always Sunscreen Use: Yes Allergies Allergies Allergy/AdvReac Type Severity Reaction Status Date / Time sulfamethoxazole Allergy Intermediate RASH Verified 12/14/19 09:46 trimethoprim Allergy Intermediate RASH Verified 12/14/19 09:46 Quinolones Allergy Mild ITCHINESS Verified 12/14/19 09:46 Home Meds Home Medications Medication Instructions Recorded Confirmed aspirin 325 mg PO QAM 12/27/17 12/14/19 latanoprost [Xalatan] 1 drp OPHTHALMIC (EYE) PM 12/27/17 12/14/19 timolol maleate 1 drp OPHTHALMIC (EYE) BID 12/27/17 12/14/19 insulin NPH isoph U-100 human 100 30 units SUBCUT BIDM ml 12/12/18 12/14/19 unit/mL subcutaneous suspension insulin regular human 100 unit/mL 1 sliding scale dose SQ TIDM 12/12/18 12/14/19 injection solution lancets #50 ea 12/12/18 12/11/19 brimonidine 0.15 % eye drops 1 drops OP BID ml 12/14/18 12/14/19 ascorbic acid (vitamin C) 1,000 mg 4,000 mg PO QAM tab 11/10/19 12/14/19 tablet [id number] tablet 1 tab PO QAM tab 11/10/19 12/14/19 cholecalciferol (vitamin D3) 50 2,000 units PO QAM cap 11/10/19 12/14/19 mcg (2,000 unit) capsule multivitamin with minerals 1 tab PO QAM 11/10/19 12/14/19 potassium 99 mg tablet 99 mg PO QAM tab 11/10/19 12/14/19 amlodipine 10 mg PO QAM 12/14/19 12/14/19 losartan 100 mg PO QAM 12/14/19 12/14/19 omeprazole 20 mg PO QAM 12/14/19 12/14/19 ropinirole 1 - 2 mg PO BID 12/14/19 12/14/19 Previous Rx's Medication Instructions Recorded FreeStyle Farhad 14 Day [place] #1 ea NS 05/23/19 FreeStyle Farhad 14 Day Sensor ea NS 05/23/19 atorvastatin 80 mg tablet 80 mg PO QPM #90 tab 08/08/19 blood sugar diagnostic #100 ea 08/28/19 sodium bicarbonate 650 mg tablet 650 mg PO BID #60 tab 11/10/19 Wheelchair (Manual or Powered) #1 ea 11/22/19 bumetanide 1 mg tablet 1 mg PO BID #60 tab 12/11/19 Results & Data (ED) Vital Signs Vital Signs - 24 hr 12/14/19 10:20 12/14/19 10:34 12/14/19 10:35 Temperature 36.9 C Temperature Source Oral Pulse Rate 67 Pulse Rate [Apical] Respiratory Rate 20 Respiratory Effort / Characteristics Spontaneous Respiratory Pattern Regular Blood Pressure 139/66 Blood Pressure [Right Arm] Blood Pressure Mean 90 Blood Pressure Mean [Right Arm] Pulse Oximetry 88 L 95 96 Oxygen Delivery Method Room Air Nasal Cannula Room Air Nasal Cannula Oxygen Flow Rate 2 Sepsis Recent Fever Within 48 Hours No Sepsis New/Unexplained Change in Mental Status No Sepsis Action Taken by Nursing No Action Required Oxygen Flow Rate - Titration 2 Pulse Oximetry Post Tiitration 94 12/14/19 11:30 12/14/19 12:00 Temperature Temperature Source Pulse Rate Pulse Rate [Apical] 60 60 Respiratory Rate 20 24 Respiratory Effort / Characteristics Respiratory Pattern Blood Pressure Blood Pressure [Right Arm] 160/74 H 146/67 H Blood Pressure Mean Blood Pressure Mean [Right Arm] 102 93 Pulse Oximetry 95 92 Oxygen Delivery Method Nasal Cannula Nasal Cannula Oxygen Flow Rate 2 2 Sepsis Recent Fever Within 48 Hours Sepsis New/Unexplained Change in Mental Status Sepsis Action Taken by Nursing Oxygen Flow Rate - Titration Pulse Oximetry Post Tiitration Laboratory Data Attestation: I reviewed the patient's lab results. Result diagrams: 12/14/19 10:45 12/14/19 10:45 Lab Results 12/14/19 12/14/19 12/14/19 Range/Units 10:16 10:45 10:45 WBC 6.26 (4.8-10.8) K/uL RBC 3.48 L (4.7-6.1) M/uL Hgb 10.9 L (14.0-18.0) g/dL Hct 34.0 L (42-52) % MCV 97.7 (80-100) fL MCH 31.3 (25-34) pg MCHC 32.1 (32-36) g/dL RDW Std Deviation 47.7 H (36.4-46.3) fL RDW Coeff of Jose 13.4 (11.5-14.5) % Plt Count 162 (130-400) K/uL MPV 11.7 H (7.4-10.4) fL Immature Gran % (Auto) 0.2 % Neut % (Auto) 81.3 % Lymph % (Auto) 8.8 % Sequoyah % (Auto) 7.5 % Eos % (Auto) 1.9 % Baso % (Auto) 0.3 % Neut # (Auto) 5.09 (1.4-6.5) K/uL Lymph # (Auto) 0.55 L (1.2-3.4) K/uL Sequoyah # (Auto) 0.47 (0.11-0.59) K/uL Eos # (Auto) 0.12 (0-0.5) K/uL Baso # (Auto) 0.02 (0-0.2) K/uL Immature Gran # (Auto) 0.01 (0.00-0.02) K/uL PT 12.4 H (9.0-12.0) Seconds INR 1.2 H (0.9-1.1) APTT 29.1 (21.0-31.0) Seconds PTT Ratio 1.0 Sodium (136-145) mmol/L Potassium (3.5-5.1) mmol/L Chloride (98-107) mmol/L Carbon Dioxide (21-32) mmol/L Anion Gap (3-11) BUN (7-18) mg/dl Creatinine (0.6-1.4) mg/dl Est Cr Clr Drug Dosing ml/min Est GFR ( Amer) Est GFR (Non-Af Amer) BUN/Creatinine Ratio (10-20) Glucose (70-99) mg/dl POC Glucose 145 H (70-99) mg/dl Calcium (8.5-10.1) mg/dl Phosphorus (2.5-4.9) mg/dl Magnesium (1.8-2.4) mg/dl Total Bilirubin (0.2-1) mg/dl AST (15-37) U/L ALT (12-78) U/L Alkaline Phosphatase (45-117) U/L Troponin I (0-0.045) ng/ml NT-Pro-B Natriuret Pep (0-900) pg/ml Total Protein (6.4-8.2) gm/dl Albumin (3.4-5.0) gm/dl Globulin (2.5-4.0) gm/dl Albumin/Globulin Ratio (0.9-2) Lipase (73-393) U/L Procalcitonin (0-0.5) ng/ml Urine Color Urine Appearance (Clear) Urine pH (4.5-7.5) Ur Specific [place] (1.000-1.030) Urine Protein (Negative) Urine Glucose (UA) (Negative) Urine Ketones (Negative) Urine Blood (Negative) Urine Nitrite (Negative) Urine Bilirubin (Negative) Urine Urobilinogen (Negative) Ur Leukocyte Esterase (Negative) Urine WBC (Auto) (0-5) /hpf Urine RBC (Auto) (0-4) /hpf U Hyaline Cast (Auto) (0-5) /lpf U Epithel Cells (Auto) (0-5) /lpf Urine Bacteria (Auto) (Negative) Ur Random Creatinine mg/dl Ur Random Microalbumin mg/L Microalb/Creat Ratio (0-30) mcg/mg 12/14/19 12/14/19 12/14/19 Range/Units 10:45 10:54 11:15 WBC (4.8-10.8) K/uL RBC (4.7-6.1) M/uL Hgb (14.0-18.0) g/dL Hct (42-52) % MCV (80-100) fL MCH (25-34) pg MCHC (32-36) g/dL RDW Std Deviation (36.4-46.3) fL RDW Coeff of Jose (11.5-14.5) % Plt Count (130-400) K/uL MPV (7.4-10.4) fL Immature Gran % (Auto) % Neut % (Auto) % Lymph % (Auto) % [place]ah % (Auto) % Eos % (Auto) % Baso % (Auto) % Neut # (Auto) (1.4-6.5) K/uL Lymph # (Auto) (1.2-3.4) K/uL [place] # (Auto) (0.11-0.59) K/uL Eos # (Auto) (0-0.5) K/uL Baso # (Auto) (0-0.2) K/uL Immature Gran # (Auto) (0.00-0.02) K/uL PT (9.0-12.0) Seconds INR (0.9-1.1) APTT (21.0-31.0) Seconds PTT Ratio Sodium 142 (136-145) mmol/L Potassium 4.2 (3.5-5.1) mmol/L Chloride 112 H (98-107) mmol/L Carbon Dioxide 24 (21-32) mmol/L Anion Gap 6.0 (3-11) BUN 29 H (7-18) mg/dl Creatinine 1.76 H (0.6-1.4) mg/dl Est Cr Clr Drug Dosing 49.1 ml/min Est GFR ( Amer) 44.1 Est GFR (Non-Af Amer) 38.1 BUN/Creatinine Ratio 16.5 (10-20) Glucose 111 H (70-99) mg/dl POC Glucose (70-99) mg/dl Calcium 8.6 (8.5-10.1) mg/dl Phosphorus 4.2 (2.5-4.9) mg/dl Magnesium 2.5 H (1.8-2.4) mg/dl Total Bilirubin 0.5 (0.2-1) mg/dl AST 14 L (15-37) U/L ALT 22 (12-78) U/L Alkaline Phosphatase 91 (45-117) U/L Troponin I 0.021 (0-0.045) ng/ml NT-Pro-B Natriuret Pep 2062 H (0-900) pg/ml Total Protein 6.2 L (6.4-8.2) gm/dl Albumin 3.2 L (3.4-5.0) gm/dl Globulin 3.0 (2.5-4.0) gm/dl Albumin/Globulin Ratio 1.1 (0.9-2) Lipase 105 (73-393) U/L Procalcitonin < 0.05 (0-0.5) ng/ml Urine Color Yellow Urine Appearance Clear (Clear) Urine pH 5.0 (4.5-7.5) Ur Specific [place] 1.013 (1.000-1.030) Urine Protein 2+ H (Negative) Urine Glucose (UA) Negative (Negative) Urine Ketones Negative (Negative) Urine Blood Negative (Negative) Urine Nitrite Negative (Negative) Urine Bilirubin Negative (Negative) Urine Urobilinogen Negative (Negative) Ur Leukocyte Esterase Negative (Negative) Urine WBC (Auto) 1-5 (0-5) /hpf Urine RBC (Auto) 0-4 (0-4) /hpf U Hyaline Cast (Auto) 1-5 (0-5) /lpf U Epithel Cells (Auto) 0-5 (0-5) /lpf Urine Bacteria (Auto) Negative (Negative) Ur Random Creatinine mg/dl Ur Random Microalbumin mg/L Microalb/Creat Ratio (0-30) mcg/mg 12/14/19 Range/Units 11:15 WBC (4.8-10.8) K/uL RBC (4.7-6.1) M/uL Hgb (14.0-18.0) g/dL Hct (42-52) % MCV (80-100) fL MCH (25-34) pg MCHC (32-36) g/dL RDW Std Deviation (36.4-46.3) fL RDW Coeff of Jose (11.5-14.5) % Plt Count (130-400) K/uL MPV (7.4-10.4) fL Immature Gran % (Auto) % Neut % (Auto) % Lymph % (Auto) % [place] % (Auto) % Eos % (Auto) % Baso % (Auto) % Neut # (Auto) (1.4-6.5) K/uL Lymph # (Auto) (1.2-3.4) K/uL [place] # (Auto) (0.11-0.59) K/uL Eos # (Auto) (0-0.5) K/uL Baso # (Auto) (0-0.2) K/uL Immature Gran # (Auto) (0.00-0.02) K/uL PT (9.0-12.0) Seconds INR (0.9-1.1) APTT (21.0-31.0) Seconds PTT Ratio Sodium (136-145) mmol/L Potassium (3.5-5.1) mmol/L Chloride (98-107) mmol/L Carbon Dioxide (21-32) mmol/L Anion Gap (3-11) BUN (7-18) mg/dl Creatinine (0.6-1.4) mg/dl Est Cr Clr Drug Dosing ml/min Est GFR ( Amer) Est GFR (Non-Af Amer) BUN/Creatinine Ratio (10-20) Glucose (70-99) mg/dl POC Glucose (70-99) mg/dl Calcium (8.5-10.1) mg/dl Phosphorus (2.5-4.9) mg/dl Magnesium (1.8-2.4) mg/dl Total Bilirubin (0.2-1) mg/dl AST (15-37) U/L ALT (12-78) U/L Alkaline Phosphatase (45-117) U/L Troponin I (0-0.045) ng/ml NT-Pro-B Natriuret Pep (0-900) pg/ml Total Protein (6.4-8.2) gm/dl Albumin (3.4-5.0) gm/dl Globulin (2.5-4.0) gm/dl Albumin/Globulin Ratio (0.9-2) Lipase (73-393) U/L Procalcitonin (0-0.5) ng/ml Urine Color Urine Appearance (Clear) Urine pH (4.5-7.5) Ur Specific [place] (1.000-1.030) Urine Protein (Negative) Urine Glucose (UA) (Negative) Urine Ketones (Negative) Urine Blood (Negative) Urine Nitrite (Negative) Urine Bilirubin (Negative) Urine Urobilinogen (Negative) Ur Leukocyte Esterase (Negative) Urine WBC (Auto) (0-5) /hpf Urine RBC (Auto) (0-4) /hpf U Hyaline Cast (Auto) (0-5) /lpf U Epithel Cells (Auto) (0-5) /lpf Urine Bacteria (Auto) (Negative) Ur Random Creatinine 56.9 mg/dl Ur Random Microalbumin 861.0 mg/L Microalb/Creat Ratio 1513.2 H (0-30) mcg/mg Administered Medications Heparin Sodium (Porcine) (Heparin Sod 5,000 Unit/0.5 Ml Vial) 7,500 units SQ Q8 [facility] Stop: 01/13/20 13:59 Last Admin: 12/14/19 17:14 Dose: 7,500 units Documented by: [id number] Cosigned by: [id number] Bumetanide 2 mg/ Syringe 8 mls @ 4 mls/min IV DAILY@0900,1700 [facility] Stop: 01/13/20 16:59 Last Admin: 12/14/19 17:17 Dose: 4 mls/min Documented by: [id number] Insulin Aspart (Insulin Aspart 100 Units/Ml 3 Ml Pen) 0 units SC ACHS [facility] Stop: 01/13/20 16:29 Last Admin: 12/14/19 17:50 Dose: 3 units Documented by: [id number] Cosigned by: [id number] Insulin Human NPH (Insulin Human Nph) 10 units SC QDD [facility] Stop: 01/13/20 16:29 Last Admin: 12/14/19 17:50 Dose: 10 units Documented by: [id number] Cosigned by: [id number] Miscellaneous (Carbohydrates For Hypoglycemia ) 15 - 30 gm PO UD PRN PRN Reason: Hypoglycemia Protocol Stop: 01/13/20 13:04 Last Admin: 12/14/19 13:27 Dose: 30 gm Documented by: [id number] Admin: 12/14/19 13:24 Dose: 30 gm Documented by: [id number] Admin: 12/14/19 13:05 Dose: 30 gm Documented by: [id number] Discontinued Medications Bumetanide 2 mg/ Syringe 8 mls @ 4 mls/min IV ONE ONE Stop: 12/14/19 11:29 Last Admin: 12/14/19 11:58 Dose: 4 mls/min Documented by: [id number] Blood Pressure Blood Pressure Findings: Elevated blood pressure Blood Pressure Disposition: further management by hospitalist Discharge Plan Visit Data Chief Complaint: Cardiac Assessment ED Provider: Yoandy Kapser Discharge Problem: Hypoxia, Dyspnea, CKD (chronic kidney disease), Volume overload Patient Disposition: Admitted As Inpatient Discharge Instructions Interventions: ED Discharge Assessment Last Done: 12/14/19 12:27 Discharge Problem: Dyspnea Qualifiers: Dyspnea type: unspecified Qualified Code(s): R06.00 - Dyspnea, unspecified
[2019-12-14 11:41] LABS: Appearance Urine Clear (Clear); Bacteria Urine Automated Negative (Negative); Bilirubin Urine Negative (Negative); Blood Urine Negative (Negative); Color Urine Yellow; Epithelial Cell Urine Auto 0-5 /lpf (0-5); Glucose Urine UA Negative (Negative); Ketones Urine Negative (Negative); Leukocyte Esterase Urine Negative (Negative); Nitrite Urine Negative (Negative); Protein Urine 2+ (Negative); RBC Urine Automated 0-4 /hpf (0-4); Specific Gravity Urine 1.013 (1.000-1.030); Urobilinogen Urine Negative (Negative)
--- NOTE | 2019-12-14 12:25 | History & Physical Report ---
Date of Service December 14, 2019 Assessment & Plan (1) Hypervolemia: Suspect mostly due to CKD with proteinuria rather than diastolic heart failure. Likely needs increased diuretics at home due to worse diet and increase fluid intake compared to in hospital. Bumex 2 mg IV twice daily Strict I&Os Daily weights Diet: Heart healthy, low-sodium, fluid restriction 1500 mL (2) Chest pain: Concerning history for unstable angina in the setting of known multivessel coronary artery disease with history of CABG in 2011. Currently being exacerbated by hypervolemic status however would consider stress testing prior to discharge once euvolemic and will consult cardiology for further recommendations regarding this. I do not feel resting echocardiogram is warranted at this time given no WA suspected and recently obtained TTE and May this year. Trend troponins to r/o WA, los suspicion of this since his worst pain was last night and initial troponin in ER was negative. (3) Diastolic heart failure: Hypervolemia management as above. No beta-luiz due to bradycardia, continue losartan. (4) Bilateral leg edema: As above for hypervolemia. (5) Pulmonary edema: As above for hypervolemia (6) Hypoxia: Secondary to pulmonary edema. Aim O2 sats > 94% (7) CAD, multiple vessel: Continue aspirin, no beta-luiz due to bradycardia, losartan, atorvastatin (8) Mild obstructive sleep apnea: Not on CPAP at home but beneficial for patient as inpatient last admission. Will continue CPAP HS to assist with pulmonary edema. (9) History of CVA (cerebrovascular accident): Continue aspirin, atorvastatin (10) Hypertension: Blood pressure currently acceptable. We will continue his home medications with amlodipine 10 mg p.o. daily, losartan 100 mg p.o. daily. Monitor for hypotension with increased doses of Bumex as above. (11) Restless leg syndrome: Continue ropinirole 1 mg nightly (12) Pressure ulcer of BKA stump, stage 3: Consult wound care nurse for continued wound management. No antibiotics warranted at this stage. (13) Glaucoma: Continue latanoprost, timolol eyedrops (14) 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, with long-term current use of insulin: HbA1c with a.m. labs. Previously 7.6 in August. We will continue previous inpatient dosing of his insulin: Insulin NPH 10-15 units every morning, 10 units every afternoon NovoLog sliding scale, aim 120-160 (high aim due to previous hypoglycemia events last admission), correction factor 30 mg/dL/unit, carb ratio 1 unit 10g (15) DVT prophylaxis: Heparin 7500 units SQ 3 times daily (increased dose due to morbid obesity) History of Present Illness Chief Complaint: Chest pain, Fluid overload Primary Care Provider: Leah Wolf DO [place] is a 69-year-old male with CKD stage III who presents to the ER with progressive shortness of breath since his discharge on November 17. He was hospitalized for fluid overload from November 13- and reports feeling much improved after intravenous diuretics. However since discharge he has noticed his weight slowly increasing. This is been much worse over the last week with 5 pounds weight gain. Associated shortness of breath especially on exertion. He denies any changes in his diet. He denies adding salt to his foods. However he does report his diet is poor. He gets his lunch via [employer] daily. He weighs himself on occasion but not strictly daily. He does not stick to a strict fluid restriction at home. Significant orthopnea and paroxysmal nocturnal dyspnea. No claudication, presyncope or syncope. 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 The patient was seen at wound care clinic today for his ongoing left stump wound and was noticed to be short of breath at rest and chest pain on exertion with hypoxia in the mid to upper 80s on room air. He also reports chest pain for the last week. This was initially occurring on exertion however last night occurred whenever he was lying flat. Pain is substernal without radiation. His worst chest pain was approximately midnight last night. 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 He currently has no chest pain at rest when seen in the emergency room. Allergies Allergy/AdvReac Type Severity Reaction Status Date / Time sulfamethoxazole Allergy Intermediate RASH Verified 12/14/19 09:46 trimethoprim Allergy Intermediate RASH Verified 12/14/19 09:46 Quinolones Allergy Mild ITCHINESS Verified 12/14/19 09:46 Home Medications Home Medications Medication Instructions Recorded Confirmed Type aspirin 325 mg PO QAM 12/27/17 12/14/19 History latanoprost [Xalatan] 1 drp OPHTHALMIC (EYE) PM 12/27/17 12/14/19 History timolol maleate 1 drp OPHTHALMIC (EYE) BID 12/27/17 12/14/19 History insulin NPH isoph U-100 human 100 30 units SUBCUT BIDM ml 12/12/18 12/14/19 History unit/mL subcutaneous suspension insulin regular human 100 unit/mL 1 sliding scale dose SQ TIDM 12/12/18 12/14/19 History injection solution lancets #50 ea 12/12/18 12/11/19 History brimonidine 0.15 % eye drops 1 drops OP BID ml 12/14/18 12/14/19 History FreeStyle Farhad 14 Day [place] #1 ea NS 05/23/19 12/11/19 Rx FreeStyle Farhad 14 Day Sensor ea NS 05/23/19 12/11/19 Rx atorvastatin 80 mg tablet 80 mg PO QPM #90 tab 08/08/19 12/14/19 Rx blood sugar diagnostic #100 ea 08/28/19 12/11/19 Rx ascorbic acid (vitamin C) 1,000 mg 4,000 mg PO QAM tab 11/10/19 12/14/19 History tablet teikatz-[id number]-mxml tablet 1 tab PO QAM tab 11/10/19 12/14/19 History cholecalciferol (vitamin D3) 50 2,000 units PO QAM cap 11/10/19 12/14/19 History mcg (2,000 unit) capsule multivitamin with minerals 1 tab PO QAM 11/10/19 12/14/19 History potassium 99 mg tablet 99 mg PO QAM tab 11/10/19 12/14/19 History sodium bicarbonate 650 mg tablet 650 mg PO BID #60 tab 11/10/19 12/14/19 Rx Wheelchair (Manual or Powered) #1 ea 11/22/19 12/11/19 Rx bumetanide 1 mg tablet 1 mg PO BID #60 tab 12/11/19 12/14/19 Rx amlodipine 10 mg PO QAM 12/14/19 12/14/19 History losartan 100 mg PO QAM 12/14/19 12/14/19 History omeprazole 20 mg PO QAM 12/14/19 12/14/19 History ropinirole 1 - 2 mg PO BID 12/14/19 12/14/19 History Past Med/Surg History Medical History Acute kidney injury Bilateral leg edema CAD, multiple vessel CKD (chronic kidney disease) stage 3, GFR 30-59 ml/min DDD (degenerative disc disease), lumbar Diabetic nephropathy Diabetic peripheral 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 Diastolic heart failure "echo from 05/15/14 LVEF is 55-59% (normal). LV wall thickness is mildly increased (concentric). The left atrium is moderately enlarged. The left ventricular diastolic function is moderately abnormal (grade II).Mild mitral regurgitation is present. 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 Proteinuria Restless leg syndrome Tubular adenoma of colon 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, with long-term current use of insulin Uncontrolled type 1 diabetes mellitus, with long-term current use of insulin Vitamin D deficiency Surgical History History of lumbar discectomy "01/31/09 L3-4 laminectomy with right L3-L4 discectomy" History of tonsillectomy S/P CABG x 4 (01/29/12) S/P eye surgery S/P foot surgery S/P lumbar laminectomy (05/2016) Status post below knee amputation of left lower extremity (2014) Family History Father , age 78 with prostate cancer Colorectal cancer Cardiovascular disease Diabetes Prostate cancer Grandmother (Maternal) Diabetes Mother , age 54 of throat cancer Throat cancer Denies family history of Ovarian cancer Myocardial infarction Breast cancer Social History Smoking Status: Never smoker Second Hand Exposure: No; Do You Dip or Chew Tobacco: No; Tobacco Cessation Education Requested by Patient: No Hx Alcohol Use: No Hx Substance Use: No Preferred Language: Occitan Communication Ability: Effective Visual Impairment: No Limitations Hearing Ability: Normal 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 Feels Safe at Home: Yes Safety Concerns: Feels Safe At This Time Childhood Exposure to Second-Hand Smoke: No caffeine: No during the past year weight has: remained stable Dental Care, Regularly: Yes Physical Activity Frequency: Daily Seatbelt Use: always Sunscreen Use: Yes Review of Systems Review of Systems: All systems reviewed & are unremarkable except as noted in HPI & below Physical Exam Constitutional: well developed; + not well nourished and no acute distress Eyes: + anicteric sclerae; normal pupil size ENMT: external ear and nose normal, oropharynx normal Neck: trachea midline, no thyromegaly Respiratory: normal respiratory effort and able to speak in complete sentences; no respiratory distress, no labored breathing, does not use accessory muscles and no cough Auscultation: + breath sounds absent (Bibasal), + diminished lung sounds (Posteriorly) and + crackles (To midline posteriorly, not anteriorly); no wheezes Cardiovascular: Rate/Rhythm: regular rate and regular rhythm Heart Sounds: no murmur Extremities: normal capillary refill and + pedal edema (3+ right side to mid thighs, ); no calf tenderness Skin: No erythema surrounding with minimal thick discharge on dressing (patient reports last changed 2 days ago) Neurologic: moves all extremities and awake; not confused Motor/Sensory: + sensory deficit (Right below the ankle) Psychiatric: A+Ox3, euthymic affect Genitourinary: no CVA tenderness Lymphatic: no cervical or axillary lymphadenopathy Results & Data Results & Data ([facility]) Vital Signs (Past 12 Hours) Vital Signs Temp Pulse Pulse Resp BP BP Pulse Ox 12/14/19 12:00 60 24 146/67 H 92 12/14/19 11:30 60 20 160/74 H 95 12/14/19 10:35 96 12/14/19 10:34 95 12/14/19 10:20 36.9 C 67 20 139/66 88 L Diagnostic Findings XR chest 1V portable IMPRESSION: 1. No change in the pulmonary edema and bilateral pleural effusions. 2. Patchy density within the right lung base. This may represent atelectasis or pneumonia. ECG Indication: chest pain Rate (beats per minute): 61 Rhythm: normal sinus Findings: + other (Incomplete right bundle branch block) and + PVC Comparison ECG Date: from (November 15, 2019) Change: the following changes noted (PVCs are present) Code Status & VTE Plan Code Status Full as discussed with the patient VTE Prophylaxis Plan VTE Prophylaxis will be ordered: Yes PG Care Time/CCT Total # of Minutes Spent Total Time Spent with Patient: Total time spent is greater than 50% in coordination of care (as documented) at patient's floor/unit and/or counseling patient: Coding Level of Care Code 05487 Initial Inpt Care Lvl 3 Diagnoses Hypervolemia E87.70 Chest pain R07.9 Diastolic heart failure I50.33 Heart failure chronicity: acute on chronic Bilateral leg edema R60.0 Pulmonary edema J81.1 Hypoxia R09.02 CAD, multiple vessel I25.10 Mild obstructive sleep apnea G47.33 History of CVA (cerebrovascular accident) Z86.73 Hypertension I10 Restless leg syndrome G25.81 Pressure ulcer of BKA stump, stage 3 T87.89; L89.893 Glaucoma H40.9 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, with long-term current use of insulin E10.319; E10.65 DVT prophylaxis Z29.9 (1) Diastolic heart failure Heart failure chronicity: acute on chronic Qualified Code(s): I50.33 - Acute on chronic diastolic (congestive) heart failure
[2019-12-14] MEDS: CARBOHYDRATES FOR HYPOGLYCEMIA PO PRN ×4 (13:05→21:30)
[2019-12-14] MEDS ORDERED: ALUMINUM/MAGNESIUM SUSP 30 ML UDC PO PRN (13:05)
[2019-12-14] MEDS ORDERED: POLYETHYLENE (MIRALAX) 17 GM PACK PO PRN (13:05)
[2019-12-14] MEDS ORDERED: ONDANSETRON INJ 2 MG/ML 2 ML VIAL IV PRN (13:05)
[2019-12-14] MEDS ORDERED: ACETAMINOPHEN 325 MG TAB PO PRN (13:05)
[2019-12-14] MEDS ORDERED: GLUCAGON FOR INJ 1 MG VIAL SQ PRN (13:05)
[2019-12-14] MEDS ORDERED: GLUCOSE 40% GEL 15 GM TUBE PO PRN (13:05)
[2019-12-14] MEDS ORDERED: DEXTROSE 50% 50 ML SYRINGE IV PRN (13:05)
[2019-12-14] MEDS ORDERED: GLUCOSE 10 TABS/TUBE PO PRN (13:05)
[2019-12-14 13:08] LABS: Creatinine Urine Random 56.9 mg/dl
[2019-12-14 13:40] LABS: Microalbumin Creatinine Ratio 1513.2 mcg/mg (0-30)
[2019-12-14] MEDS: HEPARIN SOD 5,000 UNIT/0.5 ML VIAL SQ SCH ×2 (17:14→21:44)
[2019-12-14] MEDS: BUMETANIDE 2 MG in SYRINGE 0 ML IV SCH (17:17)
[2019-12-14] MEDS: INSULIN ASPART 100 UNITS/ML 3 ML PEN SC SCH ×2 (17:50→21:30)
[2019-12-14] MEDS: INSULIN HUMAN NPH SC SCH (17:50)
--- NOTE | 2019-12-14 18:00 | Cardiology Consultation ---
Date of Consultation December 14, 2019 Assessment & Plan (1) Chest pain: (2) CAD, multiple vessel: (3) Hypertension: (4) Dyslipidemia: (5) S/P CABG x 4: (6) Hypervolemia: (7) Nephrotic syndrome: ASSESSMENT/PLAN: 1. Chest pain: His chest pain is atypical for ischemic heart disease and he described it as pleuritic in nature. Could be due to his hypervolemic state. No ischemic evaluation recommended at this time unless he continues to have symptoms in the future once achieving a more euvolemic state. Troponins have remained normal. 2. Hypervolemia : He is followed by Nephrology for diuretic resistant hypervolemia in the setting of nephrotic syndrome. He is significantly hypervolemic currently but diuresing nicely with Bumex 2 mg IV b.i.d.. Continue with current dose of diuretic and can titrate if necessary. Low-sodium diet. Strict I&Os and daily weights recommended. 3. CAD s/p CABG x 4: No angina but atypical chest discomfort which he recalls being completely different than prior angina. No further ischemic evaluation recommended at this time as noted above. Continue aspirin daily, but 81 mg is sufficient from a cardiac perspective. Continue high-intensity statin therapy. Beta-luiz has been discontinued in the past due to bradycardia according to records. Continue losartan. 4. Dyslipidemia: Continue with high-intensity statin therapy. 5. Hypertension: Blood pressure is elevated and has been elevated when reviewing records. Blood pressure should improve with continued diuresis. 6 . Nephrotic syndrome: He has been diagnosed with nephrotic syndrome and diuretic resistant hypervolemia. He follows with Nephrology. 7. Disposition: Please call with any other questions or concerns. If he would like to follow up with cardiology given his history of CAD and CABG x4, would be happy to see him in the outpatient setting. Thank you for allowing me to participate in the care of your patient. Please call for any other questions or concerns. Sincerely, Kian Krause M.D. History of Present Illness Reason for Consultation: chest pain Requesting Physician: Jake Ware MD Attending Physician: Jake Ware MD History of Present Illness Mr. Em is a very pleasant 69-year-old gentleman with a history significant for CKD, nephrotic syndrome, hypertension, CAD s/p CAB[place] x 4 [place] [facility] [place]URITA to LAD, SVG to OM and sequential graft to diagonal, SVG to RCA PDA), type 2 diabetes (nephropathy and retinopathy), and dyslipidemia. He is followed by Nephrology and has been noted to have diuretic resistant hypervolemia. It is felt that his nephrotoxic syndrome was likely to diabetic nephropathy, complicated by macro and microvascular disease. Cardiology was consulted to evaluate his chest discomfort as admitting team was concern for unstable angina. He has not followed with Cardiology for years. He recalls angina in the past and his chest discomfort that he experienced for the past 1 week intermittently he believes is quite different than prior angina. He has been experiencing a substernal chest discomfort mostly with inspiration. He states that the chest discomfort occurs mostly when he is gasping for air feeling short of breath. It has been short-lived, resolving quickly and not associated with exertion. He was hospitalized in November of 2019 from the through the for hypervolemia felt to be due to nephrotic syndrome and is renal insufficiency. He was followed by Nephrology throughout that time as he was noted to have a history of diuretic resistant hypervolemia. He was diuresed as an inpatient and discharged home on Bumex. He has gained approximately 33 lb over the past 1 month at home and has been noting worsening edema, shortness of breath, orthopnea, PND, and dyspnea with exertion. Nephrology recently increased Bumex to 1 mg p.o. b.i.d. for 2 days but he had not noted any improvement. While here, he has been given Bumex 2 mg IV b.i.d.. His chest pain has resolved. He is currently chest pain-free. He was not short of breath during our visit earlier this afternoon. He denies melena, hematochezia, hematuria, syncope, near-syncope, palpitations, or fever. Review of systems: As above. Review of systems otherwise negative/unremarkable. Family history: Father had NE in his 50s. Mother in her 50s with malignancy. Social history: He has not smoked. No significant alcohol or drug abuse. Lives at home with his . He has 2 sons. 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 He was unaccompanied today. Allergies Allergy/AdvReac Type Severity Reaction Status Date / Time sulfamethoxazole Allergy Intermediate RASH Verified 09/03/20 09:46 trimethoprim Allergy Intermediate RASH Verified 12/14/19 09:46 Quinolones Allergy Mild ITCHINESS Verified 12/14/19 09:46 Home Medications Home Medications Medication Instructions Recorded Confirmed Type aspirin 325 mg PO QAM 12/27/17 12/14/19 History latanoprost [Xalatan] 1 drp OPHTHALMIC (EYE) PM 12/27/17 12/14/19 History timolol maleate 1 drp OPHTHALMIC (EYE) BID 12/27/17 12/14/19 History insulin NPH isoph U-100 human 100 30 units SUBCUT BIDM ml 12/12/18 12/14/19 History unit/mL subcutaneous suspension insulin regular human 100 unit/mL 1 sliding scale dose SQ TIDM 12/12/18 12/14/19 History injection solution lancets #50 ea 12/12/18 12/11/19 History brimonidine 0.15 % eye drops 1 drops OP BID ml 12/14/18 12/14/19 History FreeStyle Farhad 14 Day [place] #1 ea NS 05/23/19 12/11/19 Rx FreeStyle Farhad 14 Day Sensor ea NS 05/23/19 12/11/19 Rx atorvastatin 80 mg tablet 80 mg PO QPM #90 tab 08/08/19 12/14/19 Rx blood sugar diagnostic #100 ea 08/28/19 12/11/19 Rx ascorbic acid (vitamin C) 1,000 mg 4,000 mg PO QAM tab 11/10/19 12/14/19 History tablet [id number] tablet 1 tab PO QAM tab 11/10/19 12/14/19 History cholecalciferol (vitamin D3) 50 2,000 units PO QAM cap 11/10/19 12/14/19 History mcg (2,000 unit) capsule multivitamin with minerals 1 tab PO QAM 11/10/19 12/14/19 History potassium 99 mg tablet 99 mg PO QAM tab 11/10/19 12/14/19 History sodium bicarbonate 650 mg tablet 650 mg PO BID #60 tab 11/10/19 12/14/19 Rx Wheelchair (Manual or Powered) #1 ea 11/22/19 12/11/19 Rx bumetanide 1 mg tablet 1 mg PO BID #60 tab 12/11/19 12/14/19 Rx amlodipine 10 mg PO QAM 12/14/19 12/14/19 History losartan 100 mg PO QAM 12/14/19 12/14/19 History omeprazole 20 mg PO QAM 12/14/19 12/14/19 History ropinirole 1 - 2 mg PO BID 12/14/19 12/14/19 History Patient History Medical History Acute kidney injury Bilateral leg edema CAD, multiple vessel CKD (chronic kidney disease) stage 3, GFR 30-59 ml/min DDD (degenerative disc disease), lumbar Diabetic nephropathy Diabetic peripheral 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 Diastolic heart failure "echo from 05/15/14 LVEF is 55-59% (normal). LV wall thickness is mildly increased (concentric). The left atrium is moderately enlarged. The left ventricular diastolic function is moderately abnormal (grade II).Mild mitral regurgitation is present. 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 Proteinuria Restless leg syndrome Tubular adenoma of colon 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, with long-term current use of insulin Uncontrolled type 1 diabetes mellitus, with long-term current use of insulin Vitamin D deficiency Surgical History History of lumbar discectomy "01/31/09 L3-4 laminectomy with right L3-L4 discectomy" History of tonsillectomy S/P CABG x 4 (01/29/12) S/P eye surgery S/P foot surgery S/P lumbar laminectomy (05/2016) Status post below knee amputation of left lower extremity (2014) Family History Father , age 78 with prostate cancer Colorectal cancer Cardiovascular disease Diabetes Prostate cancer Grandmother (Maternal) Diabetes Mother , age 54 of throat cancer Throat cancer Denies family history of Ovarian cancer Myocardial infarction Breast cancer Social History Smoking Status: Never smoker Second Hand Exposure: No; Do You Dip or Chew Tobacco: No; Tobacco Cessation Education Requested by Patient: No Hx Alcohol Use: No Hx Substance Use: No Preferred Language: Upper Sorbian Communication Ability: Effective Visual Impairment: No Limitations Hearing Ability: Normal Telephone Service Representative Required: No Beliefs That Will Affect Care: None marital status: Current Living Situation: Spouse current occupational status: retired 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 Feels Safe at Home: Yes Safety Concerns: Feels Safe At This Time Childhood Exposure to Second-Hand Smoke: No caffeine: No during the past year weight has: remained stable Dental Care, Regularly: Yes Physical Activity Frequency: Daily Seatbelt Use: always Sunscreen Use: Yes Physical Exam Physical Exam: Gen.: No acute distress. Alert and oriented. HEENT: Anicteric sclera. Neck: Thick neck but JVD to the mandible noted. No bruits. Normal carotid upstrokes bilaterally. Cardiac: PMI was nonpalpable. No ventricular heave. Regular rate and rhythm. Normal S1-S2. 1/6 systolic murmur. No rubs, or gallops. Pulmonary: Crackles at the right base, otherwise clear. Abdomen: Soft, nontender, nondistended, with normoactive bowel sounds. No bruits noted. Extremities: 2+ radial pulses bilaterally. 2+ posterior tibialis pulses bilaterally. 2 to 3+ bilateral lower extremity edema to the hips. No cyanosis. Psychiatric: Affect appears appropriate. Results & Data ([facility]) Vital Signs (Past 12 Hours) Vital Signs Temp Pulse Pulse Resp BP BP Pulse Ox 12/14/19 16:30 36.2 C L 61 23 176/73 H 94 12/14/19 15:18 60 12/14/19 13:12 58 L 12/14/19 13:11 36.4 C L 56 L 18 155/66 H 94 12/14/19 12:27 57 L 24 146/67 H 95 12/14/19 12:00 60 24 146/67 H 92 12/14/19 11:30 60 20 160/74 H 95 12/14/19 10:35 96 12/14/19 10:34 95 12/14/19 10:20 36.9 C 67 20 139/66 88 L Intake & Output 12/12/19 12/13/19 12/14/19 12/15/19 06:59 06:59 06:59 06:59 Intake Total 400 / 400 Output Total 1750 / 1750 Balance -1350 / -1350 Weight 123 kg Laboratory Results Laboratory Results - last 24 hr 12/14/19 12/14/19 12/14/19 10:16 10:45 10:45 WBC 6.26 RBC 3.48 L Hgb 10.9 L Hct 34.0 L MCV 97.7 MCH 31.3 MCHC 32.1 RDW Std Deviation 47.7 H RDW Coeff of Jose 13.4 Plt Count 162 MPV 11.7 H Immature Gran % (Auto) 0.2 Neut % (Auto) 81.3 Lymph % (Auto) 8.8 Mckean % (Auto) 7.5 Eos % (Auto) 1.9 Baso % (Auto) 0.3 Neut # (Auto) 5.09 Lymph # (Auto) 0.55 L Mckean # (Auto) 0.47 Eos # (Auto) 0.12 Baso # (Auto) 0.02 Immature Gran # (Auto) 0.01 PT 12.4 H INR 1.2 H APTT 29.1 PTT Ratio 1.0 Sodium Potassium Chloride Carbon Dioxide Anion Gap BUN Creatinine Est Cr Clr Drug Dosing Est GFR ( Amer) Est GFR (Non-Af Amer) BUN/Creatinine Ratio Glucose POC Glucose 145 H Calcium Phosphorus Magnesium Total Bilirubin AST ALT Alkaline Phosphatase Troponin I NT-Pro-B Natriuret Pep Total Protein Albumin Globulin Albumin/Globulin Ratio Lipase Procalcitonin Urine Color Urine Appearance Urine pH Ur Specific Gob[place] Urine Protein Urine Glucose (UA) Urine Ketones Urine Blood Urine Nitrite Urine Bilirubin Urine Urobilinogen Ur Leukocyte Esterase Urine WBC (Auto) Urine RBC (Auto) U Hyaline Cast (Auto) U Epithel Cells (Auto) Urine Bacteria (Auto) Ur Random Creatinine Ur Random Microalbumin Microalb/Creat Ratio 12/14/19 12/14/19 12/14/19 10:45 10:54 11:15 WBC RBC Hgb Hct MCV MCH MCHC RDW Std Deviation RDW Coeff of Jose Plt Count MPV Immature Gran % (Auto) Neut % (Auto) Lymph % (Auto) Mckean % (Auto) Eos % (Auto) Baso % (Auto) Neut # (Auto) Lymph # (Auto) Mckean # (Auto) Eos # (Auto) Baso # (Auto) Immature Gran # (Auto) PT INR APTT PTT Ratio Sodium 142 Potassium 4.2 Chloride 112 H Carbon Dioxide 24 Anion Gap 6.0 BUN 29 H Creatinine 1.76 H Est Cr Clr Drug Dosing 49.1 Est GFR ( Amer) 44.1 Est GFR (Non-Af Amer) 38.1 BUN/Creatinine Ratio 16.5 Glucose 111 H POC Glucose Calcium 8.6 Phosphorus 4.2 Magnesium 2.5 H Total Bilirubin 0.5 AST 14 L ALT 22 Alkaline Phosphatase 91 Troponin I 0.021 NT-Pro-B Natriuret Pep 2062 H Total Protein 6.2 L Albumin 3.2 L Globulin 3.0 Albumin/Globulin Ratio 1.1 Lipase 105 Procalcitonin < 0.05 Urine Color Yellow Urine Appearance Clear Urine pH 5.0 Ur Specific Gob[place] 1.013 Urine Protein 2+ H Urine Glucose (UA) Negative Urine Ketones Negative Urine Blood Negative Urine Nitrite Negative Urine Bilirubin Negative Urine Urobilinogen Negative Ur Leukocyte Esterase Negative Urine WBC (Auto) 1-5 Urine RBC (Auto) 0-4 U Hyaline Cast (Auto) 1-5 U Epithel Cells (Auto) 0-5 Urine Bacteria (Auto) Negative Ur Random Creatinine Ur Random Microalbumin Microalb/Creat Ratio 12/14/19 12/14/19 12/14/19 11:15 13:02 13:04 WBC RBC Hgb Hct MCV MCH MCHC RDW Std Deviation RDW Coeff of Jose Plt Count MPV Immature Gran % (Auto) Neut % (Auto) Lymph % (Auto) Mckean % (Auto) Eos % (Auto) Baso % (Auto) Neut # (Auto) Lymph # (Auto) Mckean # (Auto) Eos # (Auto) Baso # (Auto) Immature Gran # (Auto) PT INR APTT PTT Ratio Sodium Potassium Chloride Carbon Dioxide Anion Gap BUN Creatinine Est Cr Clr Drug Dosing Est GFR ( Amer) Est GFR (Non-Af Amer) BUN/Creatinine Ratio Glucose POC Glucose 52 L* 59 L* Calcium Phosphorus Magnesium Total Bilirubin AST ALT Alkaline Phosphatase Troponin I NT-Pro-B Natriuret Pep Total Protein Albumin Globulin Albumin/Globulin Ratio Lipase Procalcitonin Urine Color Urine Appearance Urine pH Ur Specific [place] Urine Protein Urine Glucose (UA) Urine Ketones Urine Blood Urine Nitrite Urine Bilirubin Urine Urobilinogen Ur Leukocyte Esterase Urine WBC (Auto) Urine RBC (Auto) U Hyaline Cast (Auto) U Epithel Cells (Auto) Urine Bacteria (Auto) Ur Random Creatinine 56.9 Ur Random Microalbumin 861.0 Microalb/Creat Ratio 1513.2 H 12/14/19 12/14/19 12/14/19 13:19 13:20 13:38 WBC RBC Hgb Hct MCV MCH MCHC RDW Std Deviation RDW Coeff of Jose Plt Count MPV Immature Gran % (Auto) Neut % (Auto) Lymph % (Auto) Mckean % (Auto) Eos % (Auto) Baso % (Auto) Neut # (Auto) Lymph # (Auto) Mckean # (Auto) Eos # (Auto) Baso # (Auto) Immature Gran # (Auto) PT INR APTT PTT Ratio Sodium Potassium Chloride Carbon Dioxide Anion Gap BUN Creatinine Est Cr Clr Drug Dosing Est GFR ( Amer) Est GFR (Non-Af Amer) BUN/Creatinine Ratio Glucose POC Glucose 58 L* 56 L* 91 Calcium Phosphorus Magnesium Total Bilirubin AST ALT Alkaline Phosphatase Troponin I NT-Pro-B Natriuret Pep Total Protein Albumin Globulin Albumin/Globulin Ratio Lipase Procalcitonin Urine Color Urine Appearance Urine pH Ur Specific [place] Urine Protein Urine Glucose (UA) Urine Ketones Urine Blood Urine Nitrite Urine Bilirubin Urine Urobilinogen Ur Leukocyte Esterase Urine WBC (Auto) Urine RBC (Auto) U Hyaline Cast (Auto) U Epithel Cells (Auto) Urine Bacteria (Auto) Ur Random Creatinine Ur Random Microalbumin Microalb/Creat Ratio 12/14/19 12/14/19 12/14/19 17:04 21:17 21:53 WBC RBC Hgb Hct MCV MCH MCHC RDW Std Deviation RDW Coeff of Jose Plt Count MPV Immature Gran % (Auto) Neut % (Auto) Lymph % (Auto) Mckean % (Auto) Eos % (Auto) Baso % (Auto) Neut # (Auto) Lymph # (Auto) Mckean # (Auto) Eos # (Auto) Baso # (Auto) Immature Gran # (Auto) PT INR APTT PTT Ratio Sodium Potassium Chloride Carbon Dioxide Anion Gap BUN Creatinine Est Cr Clr Drug Dosing Est GFR ( Amer) Est GFR (Non-Af Amer) BUN/Creatinine Ratio Glucose POC Glucose 63 L* 76 Calcium Phosphorus Magnesium Total Bilirubin AST ALT Alkaline Phosphatase Troponin I 0.017 NT-Pro-B Natriuret Pep Total Protein Albumin Globulin Albumin/Globulin Ratio Lipase Procalcitonin Urine Color Urine Appearance Urine pH Ur Specific [place] Urine Protein Urine Glucose (UA) Urine Ketones Urine Blood Urine Nitrite Urine Bilirubin Urine Urobilinogen Ur Leukocyte Esterase Urine WBC (Auto) Urine RBC (Auto) U Hyaline Cast (Auto) U Epithel Cells (Auto) Urine Bacteria (Auto) Ur Random Creatinine Ur Random Microalbumin Microalb/Creat Ratio Diagnostic Findings Chest x-ray 12/14/2019: diffuse interstitial and vascular thickening. Patchy density within the right lung base, which may represent atelectasis versus pneumonia per Radiology. ECG personally reviewed: ECG 12/14/2019: Sinus rhythm with occasional PVC. Septal infarct. Echo 09/07/2019: Normal LV size with low-normal systolic function. EF 50-55%. No regional wall motion abnormalities. No significant valvular abnormalities. Normal estimated RVSP. Medications Administered Current Inpatient Medications Acetaminophen (Acetaminophen 325 Mg Tab) 650 mg PO Q4H PRN PRN Reason: Pain or Fever Stop: 01/13/20 13:04 Al Hydrox/Mg Hydrox/Simethicone (Aluminum/Magnesium Susp 30 Ml Udc) 15 ml PO Q4H PRN PRN Reason: Dyspepsia Stop: 01/13/20 13:04 Amlodipine Besylate (Amlodipine Besylate 5 Mg Tab) 10 mg PO QAM [facility] Stop: 01/14/20 08:59 Ascorbic Acid (Ascorbic Acid 500 Mg Tab) 1,000 mg PO QAM [facility] Stop: 01/14/20 08:59 Aspirin (Aspirin 325 Mg Ectab) 325 mg PO QAM [facility] Stop: 01/14/20 08:59 Atorvastatin Calcium (Atorvastatin 40 Mg Tab) 80 mg PO QPM [facility] Stop: 01/13/20 20:59 Last Admin: 12/14/19 21:47 Dose: 80 mg Documented by: Brimonidine Tartrate (Brimonidine Tartrate-P 0.15% 5 Ml Btl) 1 drops OP BID [facility] Stop: 01/13/20 20:59 Last Admin: 12/14/19 21:44 Dose: 1 drops Documented by: Dextrose (Dextrose 50% 50 Ml Syringe) 25 - 50 ml IV UD PRN; Protocol PRN Reason: Hypoglycemia Protocol Stop: 01/13/20 13:04 Glucagon (Glucagon For Inj 1 Mg Vial) 1 mg SQ UD PRN; Protocol PRN Reason: Hypoglycemia Protocol Stop: 01/13/20 13:04 Glucose (Glucose 10 Tabs/Tube) 4 - 8 tabs PO UD PRN; Protocol PRN Reason: Hypoglycemia Protocol Stop: 01/13/20 13:04 Glucose (Glucose 40% Gel 15 Gm Tube) 15 - 30 gm PO UD PRN; Protocol PRN Reason: Hypoglycemia Protocol Stop: 01/13/20 13:04 Heparin Sodium (Porcine) (Heparin Sod 5,000 Unit/0.5 Ml Vial) 7,500 units SQ Q8 [place] Stop: 01/13/20 13:59 Last Admin: 12/14/19 21:44 Dose: 7,500 units Documented by: Bumetanide 2 mg/ Syringe 8 mls @ 4 mls/min IV DAILY@0900,1700 [facility] Stop: 01/13/20 16:59 Last Admin: 12/14/19 17:17 Dose: 4 mls/min Documented by: Insulin Aspart (Insulin Aspart 100 Units/Ml 3 Ml Pen) 0 units SC ACHS [facility] Stop: 01/13/20 16:29 Last Admin: 12/14/19 21:30 Dose: Not Given Documented by: Insulin Human NPH (Insulin Human Nph) 10 - 15 units SC QDB [facility]; Protocol Stop: 01/14/20 07:29 Insulin Human NPH (Insulin Human Nph) 10 units SC QDD [facility] Stop: 01/13/20 16:29 Last Admin: 12/14/19 17:50 Dose: 10 units Documented by: Latanoprost (Latanoprost 0.005% Op Soln 2.5 Ml Btl) 1 drops OP PM [facility] Stop: 01/13/20 20:59 Last Admin: 12/14/19 23:11 Dose: 1 drops Documented by: Losartan Potassium (Losartan Potassium 50 Mg Tab) 100 mg PO QAM [facility] Stop: 01/14/20 08:59 Miscellaneous (Carbohydrates For Hypoglycemia ) 15 - 30 gm PO UD PRN PRN Reason: Hypoglycemia Protocol Stop: 01/13/20 13:04 Last Admin: 12/14/19 21:30 Dose: 15 gm Documented by: Multivitamins/Minerals (Cerovite Adv Formula Tab) 1 tab PO QAM [facility] Stop: 01/14/20 08:59 Ondansetron HCl (Ondansetron Inj 2 Mg/Ml 2 Ml Vial) 4 mg IV Q6H PRN PRN Reason: Nausea Stop: 01/13/20 13:04 Pantoprazole Sodium (Pantoprazole 40 Mg Tab) 40 mg PO QAM [facility] Stop: 01/14/20 08:59 Polyethylene Glycol (Polyethylene (Miralax) 17 Gm Pack) 17 gm PO DAILY PRN PRN Reason: Constipation Stop: 01/13/20 13:04 Ropinirole HCl (Ropinirole Hcl 1 Mg Tablet) 1 mg PO DAILY [facility] Stop: 01/13/20 20:59 Last Admin: 12/14/19 21:48 Dose: 1 mg Documented by: Ropinirole HCl (Ropinirole Hcl 1 Mg Tablet) 2 mg PO HS [facility] Stop: 01/13/20 20:59 Last Admin: 12/14/19 21:48 Dose: 2 mg Documented by: Timolol Maleate (Timolol Gfs 0.5% Oph Soln 74 Drops/5 Ml Btl) 1 drops OP BID [facility] Stop: 01/13/20 20:59 Last Admin: 12/14/19 21:40 Dose: 1 drops Documented by: Vitamin D (Cholecalciferol 1,000 Units 25 Mcg Tab) 2,000 units PO QAM [facility] Stop: 01/14/20 08:59 PG Care Time/CCT Total # of Minutes Spent Total Time Spent with Patient: Total time spent is greater than 50% in coordination of care (as documented) at patient's floor/unit and/or counseling patient: Coding Level of Care Code 19790 Initial Inpt Care Lvl 3 Diagnoses Chest pain R07.9 CAD, multiple vessel I25.10 Hypertension I10 Dyslipidemia E78.5 S/P CABG x 4 Z95.1 Hypervolemia E87.70 Nephrotic syndrome N04.9
[2019-12-14] MEDS: TIMOLOL GFS 0.5% OPH SOLN 74 DROPS/5 ML BTL OP SCH (21:40)
[2019-12-14] MEDS: BRIMONIDINE TARTRATE-P 0.15% 5 ML BTL OP SCH (21:44)
[2019-12-14] MEDS: ATORVASTATIN 40 MG TAB PO SCH (21:47)
[2019-12-14] MEDS: ROPINIROLE HCL 1 MG TABLET PO SCH ×2 (21:48)
[2019-12-14] MEDS: LATANOPROST 0.005% OP SOLN 2.5 ML BTL OP SCH (23:11)
[2019-12-15] MEDS: HEPARIN SOD 5,000 UNIT/0.5 ML VIAL SQ SCH ×3 (06:24→20:21)
--- NOTE | 2019-12-15 06:45 | Electrocardiogram Report ---
Test Reason : Blood Pressure : / mmHG Vent. Rate : 061 BPM Atrial Rate : 061 BPM P-R Int : 186 ms QRS Dur : 092 ms QT Int : 462 ms P-R-T Axes : 000 069 108 degrees QTc Int : 465 ms Sinus rhythm with occasional Premature ventricular complexes Incomplete right bundle branch block Septal infarct (cited on or before 14-DEC-2019) Abnormal ECG When compared with ECG of 15-NOV-2019 16:05, Premature ventricular complexes are now Present Premature atrial complexes are no longer Present OK interval has decreased Confirmed by Umair Krause ([id number]) on 12/15/2019 6:44:50 AM Referred By: Confirmed By:Umair Krause
[2019-12-15 07:21] LABS: Basophils # (auto) 0.03 K/uL (0-0.2); Basophils % (auto) 0.6 %; Eosinophils # (auto) 0.14 K/uL (0-0.5); Eosinophils % (auto) 2.7 %; Hematocrit (blood only) 33.9 % (42-52); Hemoglobin 11.1 g/dL (14.0-18.0); Immature Granulocytes # (auto) 0.01 K/uL (0.00-0.02); Immature Granulocytes % (auto) 0.2 %; Lymphocytes # (auto) 1.08 K/uL (1.2-3.4); Mean Corpuscular Hemoglobin 31.4 pg (25-34); Mean Corpuscular Hgb Conc 32.7 g/dL (32-36); Mean Corpuscular Volume 95.8 fL (80-100); Mean Platelet Volume 12.1 fL (7.4-10.4); Monocytes # (auto) 0.35 K/uL (0.11-0.59); Monocytes % (auto) 6.8 %; Neutrophils # (auto) 3.54 K/uL (1.4-6.5); Neutrophils % (auto) 68.7 %; Platelet Count 161 K/uL (130-400); RDW Coefficient of Variation 13.2 % (11.5-14.5); RDW Standard Deviation 46.2 fL (36.4-46.3); Red Blood Count 3.54 M/uL (4.7-6.1); White Blood Count 5.15 K/uL (4.8-10.8)
[2019-12-15] MEDS ORDERED: INSULIN HUMAN NPH SC SCH (07:30)
[2019-12-15 07:55] LABS: BUN Creatinine Ratio 16.3 (10-20); Calcium 8.6 mg/dl (8.5-10.1); Creatinine Clr Calc Pharmacy 44.1 ml/min; Est GFR (African American) 42.1; Est GFR (Non-African American) 36.3; Potassium 4.2 mmol/L (3.5-5.1)
[2019-12-15 07:57] LABS: Estimated Average Glucose 148 mg/dl; Hemoglobin A1C 6.8 % (4.5-5.6)
[2019-12-15 07:59] LABS: Troponin I 0.017 ng/ml (0-0.045)
[2019-12-15] MEDS: ROPINIROLE HCL 1 MG TABLET PO SCH ×2 (08:11→20:21)
[2019-12-15] MEDS: ASPIRIN 325 MG ECTAB PO SCH (08:12)
[2019-12-15] MEDS: AMLODIPINE BESYLATE 5 MG TAB PO SCH (08:12)
[2019-12-15] MEDS: BUMETANIDE 2 MG in SYRINGE 0 ML IV SCH ×2 (08:12→17:57)
[2019-12-15] MEDS: CHOLECALCIFEROL 1,000 UNITS 25 MCG TAB PO SCH (08:12)
[2019-12-15] MEDS: LOSARTAN POTASSIUM 50 MG TAB PO SCH (08:12)
[2019-12-15] MEDS: CEROVITE ADV FORMULA TAB PO SCH (08:12)
[2019-12-15] MEDS: PANTOprazole 40 MG TAB PO SCH (08:12)
[2019-12-15] MEDS: ASCORBIC ACID 500 MG TAB PO SCH (08:12)
[2019-12-15] MEDS: TIMOLOL GFS 0.5% OPH SOLN 74 DROPS/5 ML BTL OP SCH ×2 (08:13→20:20)
[2019-12-15] MEDS: BRIMONIDINE TARTRATE-P 0.15% 5 ML BTL OP SCH ×2 (08:13→20:20)
[2019-12-15] MEDS: INSULIN ASPART 100 UNITS/ML 3 ML PEN SC SCH ×4 (08:14→20:48)
[2019-12-15] MEDS: INSULIN HUMAN NPH SC SCH ×2 (08:21→17:56)
[2019-12-15] MEDS ORDERED: NON-FORMULARY MEDICATION (Calcium-Magnesium-Zinc 1 TAB) PO SCH (09:00)
--- NOTE | 2019-12-15 15:39 | Heart Failure Consultation ---
Date of Consultation December 15, 2019 Assessment & Plan (1) Volume overload: (2) Nephrotic syndrome: Patient has been referred to the program for assistance with management of diuretic resistant hypervolemia in the setting of nephrotic syndrome. His hypervolemia is not felt to be secondary to heart failure, but he may benefit from more intensive follow up and education. He is responding well to Bumex 2 mg IV BID. Kidney function and electrolytes stable. Discussed consistent daily standing weights. Strict I&Os. Low sodium diet. Patient's diet is quite limited at home because their kitchen is on an upper floor that is currently difficulty to access due to their physical limitations. They do use [employer] Whe[employer]. He believes he has been assessed by multiple agencies in the past (he's not sure which, [facility] perhaps?) and did not quality for additional services at that time. He is active with [facility], mostly for wound care services. Will benefit from ongoing eduction regarding low sodium diet. Patient is able to drive and is willing to come to [facility] for follow up visits. He travels regularly for wound care appointments. Disposition: Will follow along during hospital stay. Plan on close follow up with the heart failure program. Will continue to follow primarily with nephrology. Recommend involvement with outpatient child care supervisor to assist with transition of care. History of Present Illness Attending Physician: Ye Gonzalez MD Mr. Em is a very pleasant 69-year-old gentleman with a history significant for CKD, nephrotic syndrome, hypertension, [place] 4 [place] [facility] [place] ZURITA to LAD, SVG to OM and sequential graft to diagonal, SVG to RCA PDA), type 2 diabetes (nephropathy and retinopathy), and dyslipidemia. He is followed by Nephrology and has been noted to have diuretic resistant hypervolemia. It is felt that his nephrotoxic syndrome was likely to diabetic nephropathy, complicated by macro and microvascular disease. Patient was referred to the heart failure program for more intensive management of his volume overload, which is likely secondary to nephrotic syndrome. Patient reports he's feel much better today. He has been able to ambulate around his room with more ease. He reports his lower extremity edema is improving. His weights are inaccurate. He's net negative 1.6 L so far this admission. He did use a CPAP last night and it was well tolerated. Allergies Allergy/AdvReac Type Severity Reaction Status Date / Time sulfamethoxazole Allergy Intermediate RASH Verified 12/14/19 09:46 trimethoprim Allergy Intermediate RASH Verified 12/14/19 09:46 Quinolones Allergy Mild ITCHINESS Verified 12/14/19 09:46 Home Medications Home Medications Medication Instructions Recorded Confirmed Type aspirin 325 mg PO QAM 12/27/17 12/14/19 History latanoprost [Xalatan] 1 drp OPHTHALMIC (EYE) PM 12/27/17 12/14/19 History timolol maleate 1 drp OPHTHALMIC (EYE) BID 12/27/17 12/14/19 History insulin NPH isoph U-100 human 100 30 units SUBCUT BIDM ml 12/12/18 12/14/19 History unit/mL subcutaneous suspension insulin regular human 100 unit/mL 1 sliding scale dose SQ TIDM 12/12/18 12/14/19 History injection solution lancets #50 ea 12/12/18 12/11/19 History brimonidine 0.15 % eye drops 1 drops OP BID ml 12/14/18 12/14/19 History FreeStyle Farhad 14 Day [place] #1 ea NS 05/23/19 12/11/19 Rx FreeStyle Farhad 14 Day Sensor ea NS 05/23/19 12/11/19 Rx atorvastatin 80 mg tablet 80 mg PO QPM #90 tab 08/08/19 12/14/19 Rx blood sugar diagnostic #100 ea 08/28/19 12/11/19 Rx ascorbic acid (vitamin C) 1,000 mg 4,000 mg PO QAM tab 11/10/19 12/14/19 History tablet lnsvsji-kmwugnbho-ljmi tablet 1 tab PO QAM tab 11/10/19 12/14/19 History cholecalciferol (vitamin D3) 50 2,000 units PO QAM cap 11/10/19 12/14/19 History mcg (2,000 unit) capsule multivitamin with minerals 1 tab PO QAM 11/10/19 12/14/19 History potassium 99 mg tablet 99 mg PO QAM tab 11/10/19 12/14/19 History sodium bicarbonate 650 mg tablet 650 mg PO BID #60 tab 11/10/19 12/14/19 Rx Wheelchair (Manual or Powered) #1 ea 11/22/19 12/11/19 Rx bumetanide 1 mg tablet 1 mg PO BID #60 tab 12/11/19 12/14/19 Rx amlodipine 10 mg PO QAM 12/14/19 12/14/19 History losartan 100 mg PO QAM 12/14/19 12/14/19 History omeprazole 20 mg PO QAM 12/14/19 12/14/19 History ropinirole 1 - 2 mg PO BID 12/14/19 12/14/19 History Patient History Medical History (Updated 12/15/19 @ 02:58 by Jake Ware MD) Acute kidney injury Bilateral leg edema CAD, multiple vessel CKD (chronic kidney disease) stage 3, GFR 30-59 ml/min DDD (degenerative disc disease), lumbar Diabetic nephropathy Diabetic peripheral 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 Diverticulosis Dyslipidemia Exertional dyspnea GERD (gastroesophageal reflux disease) History of CVA (cerebrovascular accident) History of TIA (transient ischemic attack) Hypertension Impotence, organic Mild obstructive sleep apnea Nephrotic syndrome Pressure ulcer of BKA stump, stage 3 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 Proteinuria Restless leg syndrome Tubular adenoma of colon 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, with long-term current use of insulin Uncontrolled type 1 diabetes mellitus, with long-term current use of insulin Vitamin D deficiency Surgical History (Updated 12/14/19 @ 23:19 by Umair Krause MD) History of lumbar discectomy "01/31/09 L3-4 laminectomy with right L3-L4 discectomy" History of tonsillectomy S/P CABG x 4 (01/29/12) S/P eye surgery S/P foot surgery S/P lumbar laminectomy (05/2016) Status post below knee amputation of left lower extremity (2014) Family History Father , age 78 with prostate cancer Colorectal cancer Cardiovascular disease Diabetes Prostate cancer Grandmother (Maternal) Diabetes Mother , age 54 of throat cancer Throat cancer Denies family history of Ovarian cancer Myocardial infarction Breast cancer Social History Smoking Status: Never smoker Second Hand Exposure: No; Do You Dip or Chew Tobacco: No; Tobacco Cessation Education Requested by Patient: No Hx Alcohol Use: No Hx Substance Use: No Preferred Language: Bangladeshi Communication Ability: Effective Visual Impairment: No Limitations Hearing Ability: Normal Clinical Reimbursement Specialist Required: No Beliefs That Will Affect Care: None marital status: Current Living Situation: Spouse current occupational status: retired 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 Feels Safe at Home: Yes Safety Concerns: Feels Safe At This Time Childhood Exposure to Second-Hand Smoke: No caffeine: No during the past year weight has: remained stable Dental Care, Regularly: Yes Physical Activity Frequency: Daily Seatbelt Use: always Sunscreen Use: Yes Review of Systems Review of Systems: As noted in HPI. All other ROS are reviewed and otherwise negative at this time. Physical Exam Physical Exam: Gen.: No acute distress. Alert and oriented. HEENT: Anicteric sclera. Neck: Thick neck but JVD to the mandible noted. No bruits. Normal carotid upstrokes bilaterally. Cardiac: PMI was nonpalpable. No ventricular heave. Regular rate and rhythm. Normal S1-S2. 1/6 systolic murmur. No rubs, or gallops. Pulmonary: Crackles at the right base, otherwise clear. Abdomen: Soft, nontender, nondistended, with normoactive bowel sounds. No bruits noted. Extremities: 2+ radial pulses bilaterally. 2+ posterior tibialis pulses bilaterally. 2 + bilateral lower extremity edema to the hips. No cyanosis. L BKA, prosthetic in place. Psychiatric: Affect appears appropriate. Results & Data ([facility]) Vital Signs (Past 12 Hours) Vital Signs Temp Pulse Pulse Resp BP Pulse Ox 12/15/19 11:10 97.9 F 53 L 18 165/84 H 93 12/15/19 08:00 57 L 12/15/19 07:21 97.7 F 52 L 18 159/70 H 90 Coding Level of Care Code 70218 Initial Inpt Care Lvl 3 Diagnoses Volume overload E87.70 Nephrotic syndrome N04.9
[2019-12-15] MEDS: LATANOPROST 0.005% OP SOLN 2.5 ML BTL OP SCH (20:20)
[2019-12-15] MEDS: ATORVASTATIN 40 MG TAB PO SCH (20:21)
[2019-12-16] MEDS: HEPARIN SOD 5,000 UNIT/0.5 ML VIAL SQ SCH ×3 (05:30→20:12)
[2019-12-16] MEDS: BUMETANIDE 2 MG in SYRINGE 0 ML IV SCH ×3 (08:46→19:03)
[2019-12-16] MEDS: AMLODIPINE BESYLATE 5 MG TAB PO SCH (08:47)
[2019-12-16] MEDS: ROPINIROLE HCL 1 MG TABLET PO SCH ×2 (08:47→20:11)
[2019-12-16] MEDS: CHOLECALCIFEROL 1,000 UNITS 25 MCG TAB PO SCH (08:47)
[2019-12-16] MEDS: LOSARTAN POTASSIUM 50 MG TAB PO SCH (08:47)
[2019-12-16] MEDS: ASCORBIC ACID 500 MG TAB PO SCH (08:47)
[2019-12-16] MEDS: ASPIRIN 325 MG ECTAB PO SCH (08:47)
[2019-12-16] MEDS: PANTOprazole 40 MG TAB PO SCH (08:47)
[2019-12-16] MEDS: CEROVITE ADV FORMULA TAB PO SCH (08:47)
[2019-12-16] MEDS: TIMOLOL GFS 0.5% OPH SOLN 74 DROPS/5 ML BTL OP SCH ×2 (08:48→20:12)
[2019-12-16] MEDS: INSULIN ASPART 100 UNITS/ML 3 ML PEN SC SCH ×4 (08:48→20:15)
[2019-12-16] MEDS: BRIMONIDINE TARTRATE-P 0.15% 5 ML BTL OP SCH ×2 (08:53→20:11)
[2019-12-16] MEDS: INSULIN HUMAN NPH SC SCH ×2 (08:53→17:22)
[2019-12-16 09:54] LABS: BUN Creatinine Ratio 16.6 (10-20); Calcium 8.9 mg/dl (8.5-10.1); Creatinine Clr Calc Pharmacy 41.1 ml/min; Est GFR (African American) 38.7; Est GFR (Non-African American) 33.4; Potassium 4.3 mmol/L (3.5-5.1)
--- NOTE | 2019-12-16 14:33 | Hospitalist Progress Note ---
Date of Service December 16, 2019 Assessment & Plan (1) Hypervolemia: Due to CKD with proteinuria rather than diastolic heart failure. Likely needs increased diuretics at home due to worse diet and increase fluid intake compared to in hospital. - Continue Bumex 2 mg IV twice daily - Strict I&Os - Daily weights - Will follow with nephrology and Carmenza Casanova on discharge. Baseline weight around 107 kg given prior discharge weight. (2) CKD stage G3b/A3, GFR 30-44 and albumin creatinine ratio >300 mg/g: Baseline Cr is ~1.9 - 2.0. Presently at baseline. - Continue Bumex for now as we may need to accept some pre-renal for adequate volume status. (3) Chest pain: Thought to be due to hypervolemia and possible pulmonary congestion. - Cardiology did not recommend further stress testing inpatient. - By 12/14, it has resolved. (4) Hypoxia: Chronic respiratory failure with hypoxia. Secondary to pulmonary edema. - Aim O2 sats > 94% (5) CAD, multiple vessel: Chest pain plan as above. - Continue aspirin, no beta-luiz due to bradycardia, losartan, atorvastatin (6) 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, with long-term current use of insulin: HbA1c was 6.8% this admission. - We will continue previous inpatient dosing of his insulin: * Insulin NPH 10-15 units every morning, 10 units every afternoon * NovoLog sliding scale, aim 120-160 (high aim due to previous hypoglycemia events last admission), correction factor 30 mg/dL/unit, carb ratio 1 unit 10g (7) Mild obstructive sleep apnea: Not on CPAP at home but beneficial for patient as inpatient last admission. - Will continue CPAP HS to assist with pulmonary edema. - Tolerating well today. (8) History of CVA (cerebrovascular accident): - Continue aspirin, atorvastatin (9) Hypertension: Blood pressure currently acceptable at 140/60. - We will continue his home medications with amlodipine 10 mg p.o. daily, losartan 100 mg p.o. daily. (10) Restless leg syndrome: - Continue ropinirole 1 mg nightly (11) Pressure ulcer of BKA stump, stage 3: - Consult wound care nurse for continued wound management. - No antibiotics warranted at this stage. (12) Glaucoma: - Continue latanoprost, timolol eyedrops (13) DVT prophylaxis: Heparin 7500 units SQ 3 times daily (increased dose due to morbid obesity) Admission and Anticipated Discharge Date Admission Date: December 14, 2019 Subjective Doing much better today. Was able to get up and ambulate without shortness of breath. Reports no fevers/chills, chest pain, abdominal pain, nausea, or vomiting. Physical Exam Constitutional: WD/WN, vitals as above Eyes: EOM intact bilaterally; no conjunctival abnormality ENMT: external ear and nose normal, oropharynx normal Neck: trachea midline, no thyromegaly normal visual inspection Respiratory: normal respiratory effort, lungs clear to auscultation no respiratory distress Cardiovascular: Rate/Rhythm: regular rate and regular rhythm Extremities: + edema (Mild) Gastrointestinal (Abdomen): Inspection/Auscultation: abdomen normal to inspection; abdomen not distended Musculoskeletal: no cyanosis or clubbing, extremities motor strength 5/5 Skin: no rashes, warm and dry Neurologic: moves all extremities and awake Psychiatric: Orientation: alert, oriented to person and cooperative Results & Data Results & Data ([facility]) Vital Signs (Past 12 Hours) Vital Signs Temp Pulse Pulse Resp BP BP Pulse Ox 12/16/19 11:50 36.6 C 52 L 18 150/71 H 90 12/16/19 08:00 55 L 12/16/19 06:54 36.5 C 55 L 16 130/69 90 12/16/19 03:29 52 L 18 97 12/16/19 03:17 36.6 C 50 L 18 153/73 H 98 PG Care Time/CCT Total # of Minutes Spent Total Time Spent with Patient: Total time spent is greater than 50% in coordination of care (as documented) at patient's floor/unit and/or counseling patient: Coding Level of Care Code 43702 Subseq Hosp Care Lvl 3 Diagnoses Hypervolemia E87.70 CKD stage G3b/A3, GFR 30-44 and albumin creatinine ratio >300 mg/g N18.3 Chest pain R07.9 Hypoxia R09.02 CAD, multiple vessel I25.10 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, with long-term current use of insulin E10.319; E10.65 Mild obstructive sleep apnea G47.33 History of CVA (cerebrovascular accident) Z86.73 Hypertension I10 Restless leg syndrome G25.81 Pressure ulcer of BKA stump, stage 3 T87.89; L89.893 Glaucoma H40.9 DVT prophylaxis Z29.9
--- NOTE | 2019-12-16 15:03 | Hospitalist Progress Note ---
Date of Service December 15, 2019 Assessment & Plan (1) Hypervolemia: Due to CKD with proteinuria rather than diastolic heart failure. Likely needs increased diuretics at home due to worse diet and increase fluid intake compared to in hospital. - Continue Bumex 2 mg IV twice daily - Strict I&Os - Daily weights - Will follow with nephrology and Carmenza Casanova on discharge. Doing better today compared to admission. (2) CKD stage G3b/A3, GFR 30-44 and albumin creatinine ratio >300 mg/g: Baseline Cr is ~1.9 - 2.0. Presently at baseline. - Continue Bumex for now as we may need to accept some pre-renal for adequate volume status. (3) Chest pain: Thought to be due to hypervolemia and possible pulmonary congestion. - Cardiology did not recommend further stress testing inpatient. - By 12/14, it has resolved. (4) Hypoxia: Chronic respiratory failure with hypoxia. Secondary to pulmonary edema. - Aim O2 sats > 94% (5) CAD, multiple vessel: Chest pain plan as above. - Continue aspirin, no beta-luiz due to bradycardia, losartan, atorvastatin (6) 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, with long-term current use of insulin: HbA1c was 6.8% this admission. - We will continue previous inpatient dosing of his insulin: * Insulin NPH 10-15 units every morning, 10 units every afternoon * NovoLog sliding scale, aim 120-160 (high aim due to previous hypoglycemia events last admission), correction factor 30 mg/dL/unit, carb ratio 1 unit 10g (7) Mild obstructive sleep apnea: Not on CPAP at home but beneficial for patient as inpatient last admission. - Will continue CPAP HS to assist with pulmonary edema. - Tolerating well today. (8) History of CVA (cerebrovascular accident): - Continue aspirin, atorvastatin (9) Hypertension: Blood pressure currently acceptable at 140/60. - We will continue his home medications with amlodipine 10 mg p.o. daily, losartan 100 mg p.o. daily. (10) Restless leg syndrome: - Continue ropinirole 1 mg nightly (11) Pressure ulcer of BKA stump, stage 3: - Consult wound care nurse for continued wound management. - No antibiotics warranted at this stage. (12) Glaucoma: - Continue latanoprost, timolol eyedrops (13) DVT prophylaxis: Heparin 7500 units SQ 3 times daily (increased dose due to morbid obesity) Admission and Anticipated Discharge Date Admission Date: December 14, 2019 Subjective Doing better already. Less shortness of breath. Reports no fevers/chills, chest pain, abdominal pain, nausea, or vomiting. Physical Exam Constitutional: WD/WN, vitals as above Eyes: EOM intact bilaterally; no conjunctival abnormality ENMT: external ear and nose normal, oropharynx normal Neck: trachea midline, no thyromegaly normal visual inspection Respiratory: normal respiratory effort, lungs clear to auscultation no respiratory distress Cardiovascular: RRR, no murmur, no edema Gastrointestinal (Abdomen): Inspection/Auscultation: abdomen normal to inspection; abdomen not distended Musculoskeletal: no cyanosis or clubbing, extremities motor strength 5/5 Skin: no rashes, warm and dry Neurologic: moves all extremities and awake Psychiatric: Orientation: alert, oriented to person and cooperative Results & Data Results & Data ([facility]) Vital Signs (Past 12 Hours) Vital Signs Temp Pulse Pulse Resp BP BP Pulse Ox 12/16/19 14:55 36.6 C 50 L 18 143/62 H 91 12/16/19 11:50 36.6 C 52 L 18 150/71 H 90 12/16/19 08:00 55 L 12/16/19 06:54 36.5 C 55 L 16 130/69 90 12/16/19 03:29 52 L 18 97 12/16/19 03:17 36.6 C 50 L 18 153/73 H 98 PG Care Time/CCT Total # of Minutes Spent Total Time Spent with Patient: Total time spent is greater than 50% in coordination of care (as documented) at patient's floor/unit and/or counseling patient: Coding Level of Care Code 89085 Subseq Hosp Care Lvl 2 Diagnoses Hypervolemia E87.70 CKD stage G3b/A3, GFR 30-44 and albumin creatinine ratio >300 mg/g N18.3 Chest pain R07.9 Hypoxia R09.02 CAD, multiple vessel I25.10 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, with long-term current use of insulin E10.319; E10.65 Mild obstructive sleep apnea G47.33 History of CVA (cerebrovascular accident) Z86.73 Hypertension I10 Restless leg syndrome G25.81 Pressure ulcer of BKA stump, stage 3 T87.89; L89.893 Glaucoma H40.9 DVT prophylaxis Z29.9
[2019-12-16] MEDS: ATORVASTATIN 40 MG TAB PO SCH (20:11)
[2019-12-16] MEDS: LATANOPROST 0.005% OP SOLN 2.5 ML BTL OP SCH (20:12)
[2019-12-17] MEDS: HEPARIN SOD 5,000 UNIT/0.5 ML VIAL SQ SCH (05:51)
[2019-12-17 05:55] LABS: Hematocrit (blood only) 34.8 % (42-52); Hemoglobin 11.4 g/dL (14.0-18.0); Mean Corpuscular Hemoglobin 31.1 pg (25-34); Mean Corpuscular Hgb Conc 32.8 g/dL (32-36); Mean Corpuscular Volume 95.1 fL (80-100); Mean Platelet Volume 12.6 fL (7.4-10.4); Platelet Count 162 K/uL (130-400); RDW Standard Deviation 44.5 fL (36.4-46.3); Red Blood Count 3.66 M/uL (4.7-6.1); White Blood Count 4.85 K/uL (4.8-10.8)
[2019-12-17 06:21] LABS: BUN Creatinine Ratio 20.6 (10-20); Calcium 8.7 mg/dl (8.5-10.1); Creatinine Clr Calc Pharmacy 41.4 ml/min; Est GFR (African American) 39.2; Est GFR (Non-African American) 33.8; Magnesium 2.4 mg/dl (1.8-2.4); Potassium 4.2 mmol/L (3.5-5.1)
[2019-12-17] MEDS: CHOLECALCIFEROL 1,000 UNITS 25 MCG TAB PO SCH (09:01)
[2019-12-17] MEDS: BUMETANIDE 2 MG in SYRINGE 0 ML IV SCH (09:01)
[2019-12-17] MEDS: ASCORBIC ACID 500 MG TAB PO SCH (09:01)
[2019-12-17] MEDS: CEROVITE ADV FORMULA TAB PO SCH (09:02)
[2019-12-17] MEDS: AMLODIPINE BESYLATE 5 MG TAB PO SCH (09:02)
[2019-12-17] MEDS: BRIMONIDINE TARTRATE-P 0.15% 5 ML BTL OP SCH (09:02)
[2019-12-17] MEDS: TIMOLOL GFS 0.5% OPH SOLN 74 DROPS/5 ML BTL OP SCH (09:02)
[2019-12-17] MEDS: PANTOprazole 40 MG TAB PO SCH (09:02)
[2019-12-17] MEDS: ASPIRIN 325 MG ECTAB PO SCH (09:02)
[2019-12-17] MEDS: ROPINIROLE HCL 1 MG TABLET PO SCH (09:02)
[2019-12-17] MEDS: LOSARTAN POTASSIUM 50 MG TAB PO SCH (09:02)
[2019-12-17] MEDS: INSULIN HUMAN NPH SC SCH (09:03)
[2019-12-17] MEDS: INSULIN ASPART 100 UNITS/ML 3 ML PEN SC SCH ×2 (09:03→12:46)
--- NOTE | 2019-12-17 15:23 | Discharge Summary ---
Date of Service December 17, 2019 Admission HPI Per Admitting Provider Dayton Em is a 69-year-old male with CKD stage III who presents to the ER with progressive shortness of breath since his discharge on November 17. He was hospitalized for fluid overload from November 13- and reports feeling much improved after intravenous diuretics. However since discharge he has noticed his weight slowly increasing. This is been much worse over the last week with 5 pounds weight gain. Associated shortness of breath especially on exertion. He denies any changes in his diet. He denies adding salt to his foods. However he does report his diet is poor. He gets his lunch via [employer] daily. He weighs himself on occasion but not strictly daily. He does not stick to a strict fluid restriction at home. Significant orthopnea and paroxysmal nocturnal dyspnea. No claudication, presyncope or syncope. He called his human resources supervisor this week and increased his Bumex to 1 mg twice daily but is any been taking this for the last 2 days and does not seem to be helping. The patient was seen at wound care clinic today for his ongoing left stump wound and was noticed to be short of breath at rest and chest pain on exertion with hypoxia in the mid to upper 80s on room air. He also reports chest pain for the last week. This was initially occurring on exertion however last night occurred whenever he was lying flat. Pain is substernal without radiation. His worst chest pain was approximately midnight last night. 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 He currently does not a kidney puller. He currently has no chest pain at rest when seen in the emergency room. Principal Diagnosis Hypervolemia from CKD Discharge Exam Constitutional WD/WN, vitals as above Eyes EOM intact bilaterally; no conjunctival abnormality ENMT external ear and nose normal, oropharynx normal Neck trachea midline, no thyromegaly normal visual inspection Respiratory normal respiratory effort, lungs clear to auscultation no respiratory distress Cardiovascular RRR, no murmur, no edema Rate/Rhythm: regular rate and regular rhythm Extremities: + edema (Mild) Gastrointestinal (Abdomen) Inspection/Auscultation: abdomen normal to inspection; abdomen not distended Musculoskeletal no cyanosis or clubbing, extremities motor strength 5/5 Skin no rashes, warm and dry Neurologic moves all extremities and awake Psychiatric Orientation: alert, oriented to person and cooperative Discharge Data Allergies Allergy/AdvReac Type Severity Reaction Status Date / Time sulfamethoxazole Allergy Intermediate RASH Verified 12/14/19 09:46 trimethoprim Allergy Intermediate RASH Verified 12/14/19 09:46 Quinolones Allergy Mild ITCHINESS Verified 12/14/19 09:46 Consultations 12/14/19 11:28 ED Decision to Admit Stat 12/14/19 13:05 Consult Cardiology Routine Hospital Course (1) Hypervolemia: Due to CKD with proteinuria rather than diastolic heart failure. Likely needs increased diuretics at home due to worse diet and increase fluid intake compared to in hospital. - Continued Bumex 2 mg IV twice daily - Discharged on Bumex 2 mg PO BID -> On discharge, his weight was 207 kg. I think he has a bit of fluid left to give, but he felt comfortable and near baseline. - Will follow with nephrology and Carmenza Casanova on discharge. Will need a BMP in a week or so to be sure his Cr is stable. (2) CKD stage G3b/A3, GFR 30-44 and albumin creatinine ratio >300 mg/g: Baseline Cr is ~1.9 - 2.0. Presently at baseline. - Continued Bumex at inpatient dosing. (3) Chest pain: Thought to be due to hypervolemia and possible pulmonary congestion. - Cardiology did not recommend further stress testing inpatient. - By 12/14, it has resolved. (4) Hypoxia: Chronic respiratory failure with hypoxia. Secondary to pulmonary edema. - Aim O2 sats > 94% (5) CAD, multiple vessel: Chest pain plan as above. - Continue aspirin, no beta-luiz due to bradycardia, losartan, atorvastatin (6) 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, with long-term current use of insulin: HbA1c was 6.8% this admission. - We will continue previous inpatient dosing of his insulin: * Insulin NPH 10-15 units every morning, 10 units every afternoon * NovoLog sliding scale, aim 120-160 (high aim due to previous hypoglycemia events last admission), correction factor 30 mg/dL/unit, carb ratio 1 unit 10g (7) Mild obstructive sleep apnea: Not on CPAP at home but beneficial for patient as inpatient last admission. - Will continue CPAP HS to assist with pulmonary edema. - Tolerated well. Could pursue sleep study as outpatient. (8) History of CVA (cerebrovascular accident): - Continue aspirin, atorvastatin (9) Hypertension: Blood pressure currently acceptable at 140/60. - Continued his home medications with amlodipine 10 mg p.o. daily, losartan 100 mg p.o. daily. (10) Restless leg syndrome: - Continue ropinirole 1 mg nightly (11) Pressure ulcer of BKA stump, stage 3: - Consult wound care nurse for continued wound management. - No antibiotics warranted at this stage. (12) Glaucoma: - Continue latanoprost, timolol eyedrops (13) DVT prophylaxis: Heparin 7500 units SQ 3 times daily (increased dose due to morbid obesity) Total Time Total Time Spent Total Time Spent (In Minutes): 35 Discharge Plan Discharge Items Patient Disposition: Home - Home Health Services Reason For Visit: Volume overload Discharge Diagnosis: Volume overload due to kidney disease Activity: Resume your previous activity Non-emergency contact: Primary Care Provider and Mogul Operator Call non-emergency contact if: your symptoms worsen Follow-up/Referrals: Leah Wolf DO [Primary Care Provider] - Carmenza Casanova PA-C [Physician Edging Machine Setter] - 12/22/19 10:30 am (Congestive Heart Failure Program Appointment Information Early follow up is essential to managing your heart failure. An appointment has been scheduled for you with the [facility] Heart [facility] within 7 days of discharge. Anticipate this visit to be 30-60 minutes long. Please expect a greige mender phone call from one of our nurses approximately 48 hours from discharge. They will also be placing an order for lab work to be completed 1-2 days prior to your heart failure follow up appointment. Please be sure to have this done so we can go over the results when you come in. Office Location The cardiology office building is located in front of the hospital at [address] [facility]. Bring the following with you to your follow-up doctor appointments: Please bring your daily weight log any discharge paperwork all of your medication bottles with you to this visit. ) Diet: Low Sodium (2gm) Addtl Attending Provider Instructions: You were admitted to the hospital with shortness of breath. Your kidneys do not work as effectively as they used to, and therefore, they have trouble getting rid of all the water that you drink. We gave you IV Bumex which helped get the fluid out. We will return you to your oral dosing of Bumex and try to help keep the fluid out of your arms, legs, and lungs. Take 2 mg (2 1mg tablets) of Bumex 2 times per day. Take the doses at least 6 hours apart, but you can adjust the exact time based on your day's schedule. For instance, take 2 tablets with breakfast, then in the mid-afternoon around 2-3 pm. Or, if you have an appointment at 2pm, you can take the second dose when you get home around 4pm. This is fine as long as you get both doses in every day. You should try to stay around the weight you are when you get home. Try to eat about 2,000 mg of sodium or less per day. For packaged foods, this means checking the label to see how much salt is in the food. Be sure to check serving size too, since most packaged foods have multiple servings. For home- cooked food from scratch, 2,000 mg is only about 1 total teaspoon of salt. So, if you are cooking food at home, be aware that a teaspoon of salt is really all the salt you can have for an ENTIRE day. For water, aim to drink about 2 liters of water or a little less. This should keep you hydrated, but also not let the fluid build up in your legs or lungs. If you start to gain weight, have swelling, have trouble breathing, or other concerns, please call Carmenza Casanova's office right away to figure out steps to get the fluid back off. Addtl Loft Worker Provider Instructions: Call your Primary Care doctor if any of the following symptoms or problems start or get worse: * Shortness of breath or difficulty breathing * Wake up at night short of breath * Chest pain * Cough * Swelling of your hands, feet, or legs * More fatigued or tired with your normal activity * Palpitations - sudden fast heart beats WEIGHT * Weigh yourself every morning after using the bathroom. * Use the same scale. * Wear the same amount of clothing. * Write your weight down on a chart. * Call your Primary Care doctor if you gain more than 2-3 pounds in 1-2 days. MEDICATIONS * Use this discharge instruction sheet for medication instructions. * Take your medications at the time your doctor ordered. * Do not skip a dose of your medicines. * If you miss a dose of medicine, take it as soon as possible, but DO NOT DOUBLE A DOSE. * Read your medicine information when you get home. * Know all of the side effects of your medicine. If in doubt, ask your pharmacist * Call your Primary Care doctor's office if you have any side effects. * Be sure all of your doctors know what medicine and herbs you take (including cold, flu, and herbal medicine). Take the following with you to your follow-up doctor appointments: * Weight Chart * Medication List * List of questions Do not drink excessive alcohol, beer or wine. Pending Studies at Discharge: No Stand-Alone Forms: My FRESS, Smoking Cessation Medications and DC Order Prescriptions: Continued (DME) FreeStyle Farhad 14 Day Sensor Kit See Rx Instructions .ROUTE .MEDSUPPLY RF: 11 (DME) FreeStyle Farhad 14 Day Keystone Misc See Rx Instructions [id number] .MEDSUPPLY Qty: 1 RF: 0 atorvastatin [Lipitor] 80 mg tablet 80 mg PO QPM Qty: 90 RF: 1 (DME) OneTouch Ultra Blue Test Strip Strip See Dose Instructions .ROUTE .MEDSUPPLY Qty: 100 RF: 5 Novolin R Regular U-100 Insuln 100 unit/mL solution 1 sliding scale dose SQ TIDM RF: 0 (DME) lancets [OneTouch UltraSoft Lancets] misc See Dose Instructions .ROUTE .MEDSUPPLY Qty: 50 RF: 0 brimonidine 0.15 % drops 1 drops OP BID RF: 0 [id number] Tablet 1 tab PO QAM RF: 0 potassium 99 mg tablet 99 mg PO QAM RF: 0 multivitamin with minerals [Hair,Skin and Nails] Tablet 1 tab PO QAM RF: 0 ascorbic acid (vitamin C) 1,000 mg tablet 4,000 mg PO QAM RF: 0 sodium bicarbonate 650 mg tablet 650 mg PO BID Qty: 60 RF: 3 (DME) Wheelchair (Powered) Device See Rx Instructions .ROUTE .MEDSUPPLY Qty: 1 RF: 0 latanoprost [Xalatan] 0.005 % Drops 1 drp OPHTHALMIC (EYE) PM RF: 0 aspirin 325 mg Tablet 325 mg PO QAM RF: 0 timolol maleate 0.25 % Drops 1 drp OPHTHALMIC (EYE) BID RF: 0 Novolin N NPH U-100 Insulin 100 unit/mL suspension 30 units SUBCUT BIDM RF: 0 cholecalciferol (vitamin D3) [Vitamin D3] 50 mcg (2,000 unit) capsule 2,000 units PO QAM RF: 0 ropinirole 1 mg tablet 1 - 2 mg PO BID RF: 0 amlodipine 10 mg tablet 10 mg PO QAM RF: 0 omeprazole 20 mg capsule,delayed release(DR/EC) 20 mg PO QAM RF: 0 losartan 100 mg tablet 100 mg PO QAM RF: 0 Changed bumetanide 1 mg tablet 2 mg PO BID Qty: 60 RF: 6 Discharge Orders: Discharge Order (Routine); Ordered 12/17/19 Ordered By: Ye Gonzalez Admission Data Admit Date/Time: 12/14/19 12:02 Attending Provider: Ye Gonzalez Admit Provider: Jake Ware Primary Care Provider: Leah Wolf Other Providers: Umair Krause ; Ye Gonzalez Other Interventions: Discharge Summary Assessment (RN) Last Done: 12/17/19 12:43 Coding Level of Care Code D/C Day Management >30 mins Diagnoses Hypervolemia E87.70 CKD stage G3b/A3, GFR 30-44 and albumin creatinine ratio >300 mg/g N18.3 Chest pain R07.9 Hypoxia R09.02 CAD, multiple vessel I25.10 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, with long-term current use of insulin E10.319; E10.65 Mild obstructive sleep apnea G47.33 History of CVA (cerebrovascular accident) Z86.73 Hypertension I10 Restless leg syndrome G25.81 Pressure ulcer of BKA stump, stage 3 T87.89; L89.893 Glaucoma H40.9 DVT prophylaxis Z29.9
--- NOTE | 2020-01-09 06:36 | Coding Query ---
To promote full compliance with coding requirements relating to patient care, provider participation is requested in all cases of planishing hammer operator uncertainty. Please assist us with the question(s) below: Coding Question: The Diastolic Heart Failure was documented in the H&P only then subsequently fell off all further documentation. Please indicate if it is still a possible diagnosis or ruled-out as this diagnosis will affect the coding and payment. Thank you so much for your help with this! Have a great day! Diastolic Heart Failure ( ) Diagnosed and POA ( ) Diagnosed and not POA ( x ) Ruled out Yes, DHF didn't really "fall out," but was actively erased because multiple providers have agreed it is not DHF. Please see the following statements in a variety of notes in his chart: "His hypervolemia is not felt to be secondary to heart failure." "Hypervolemia from CKD" "Due to CKD with proteinuria rather than diastolic heart failure." ( ) Other (please specify) MTDD
== END 2019-12-17 13:47 | disposition home health service (06) | DRG 682 ==
LOC: ED 10:11 → SUATTDRO 12:02 → 2N 12:02

== ENCOUNTER 2023-04-02 15:46 | Inpatient (IN) ==
[2023-04-02 17:10] LABS: Basophils # (auto) 0.01 K/uL (0.00-0.20); Basophils % (auto) 0.2 %; Eosinophils # (auto) 0.07 K/uL (0.00-0.50); Eosinophils % (auto) 1.4 %; Immature Granulocytes # (auto) 0.01 K/uL (0.01-0.20); Immature Granulocytes % (auto) 0.2 %; Lymphocytes # (auto) 0.41 K/uL (1.20-3.40); Lymphocytes % (auto) 8.2 %; Mean Corpuscular Hgb Conc 33.3 g/dL (32.0-36.0); Mean Platelet Volume 13.1 fL (9.4-12.4); Monocytes # (auto) 0.72 K/uL (0.11-0.59); Monocytes % (auto) 14.3 %; Neutrophils # (auto) 3.81 K/uL (1.40-6.50); Neutrophils % (auto) 75.7 %; Platelet Count 137 K/uL (130-400); RDW Standard Deviation 47.8 fL (36.4-46.3); Red Blood Count 3.55 M/uL (4.70-6.10); White Blood Count 5.03 K/ul (4.8-10.8)
[2023-04-02 17:16] LABS: Adenovirus PCR Not Detected (NotDetected); Bordetella parapertussis PCR Not Detected (NotDetected); Bordetella pertussis PCR Not Detected (NotDetected); Chlamydia pneumoniae PCR Not Detected (NotDetected); Coronavirus 229E PCR Not Detected (NotDetected); Coronavirus CoV-2 (COVID19)PCR Not Detected (NotDetected); Coronavirus HKU1 PCR Not Detected (NotDetected); Coronavirus NL63 PCR Not Detected (NotDetected); Coronavirus OC43PCR Not Detected (NotDetected); Human Metapneumovirus PCR Not Detected (NotDetected); Influenza B PCR Not Detected (NotDetected); Mycoplasma pneumoniae PCR Not Detected (NotDetected); Parainfluenza Virus 1 PCR Not Detected (NotDetected); Parainfluenza Virus 2 PCR Not Detected (NotDetected); Parainfluenza Virus 3 PCR Not Detected (NotDetected); Parainfluenza Virus 4 PCR Not Detected (NotDetected); Respiratory Syncytial VirusPCR Not Detected (NotDetected); Rhinovirus/Enterovirus PCR Not Detected (NotDetected)
[2023-04-02 17:28] LABS: Influenza A (H1 2009) PCR DETECTED (NotDetected)
[2023-04-02 17:35] LABS: INR 1.1 (0.9-1.1); Partial Thromboplastin Ratio 1.1; Partial Thromboplastin Time 32 Seconds (21-31); Prothrombin Time 11.6 Seconds (9.0-12.0)
[2023-04-02] MEDS ORDERED: SODIUM CHLORIDE 0.9% 500 ML IV ONE (17:37)
--- NOTE | 2023-04-02 17:37 | Emergency Department Note ---
Impression & Plan Hypoxia ADMIT ED Provider Note HPI: History obtained from patient. The patient is a 72-year-old gentleman with history of insulin-dependent diabetes, coronary artery disease, presents emergency department chief complaint of generalized weakness, cough, body aches, shortness of breath, and headache that has been ongoing for the past 2 days. Patient denies any fevers, denies any nausea or vomiting. Patient denies any chest pain. On arrival here to the ED the patient is hemodynamically stable, patient is afebrile on arrival. ROS: - Per HPI Differential Diagnosis: COVID-19 infection, influenza A infection, viral upper respiratory infection with cough, pneumonia, amongst other potential pathologies. *Outpatient medications and allergy history reviewed. PE: General: Alert HEENT: Normocephalic, trachea midline Eyes: Extraocular eye movement is intact, no scleral erythema Pulmonary: Clear to auscultation bilaterally, no wheezing Cardio: Regular rate and rhythm GI: Abdomen is soft to palpation : No suprapubic tenderness MSK: Status post left-sided BKA, no evidence of trauma or malformation of the extremities, no edema Skin: No evidence of rash Neuro: Alert, no focal deficits Psychiatric: Cooperative INDEPENDENT INTERPRETATIONS: staff appraiser: (As interpreted by myself): - An order was placed for continuous cardiac monitoring - Patient was noted to be in sinus rhythm with a rate of 78 EKG: (As interpreted by myself): Rate: 74 Rhythm: Sinus rhythm Intervals: IN interval prolonged at 236 ms, QRS 140 ms, QTc within normal limits ST changes: No ST elevation Time: 1634 Chest x-ray: (As interpreted by myself): Cardiomegaly, no focal infiltrate Interventions provided in ED: -IV fluid bolus, Tamiflu Medical Decision Making: IV was established and lab work obtained, patient was placed on care management associate. Lab work shows no leukocytosis, hemoglobin is stable at 11.0, platelet count is normal, CMP does not show any critical findings, creatinine is at baseline at 2.86, glucose is elevated at 339 however there is no anion gap elevation and serum bicarbonate level is 25, troponin is elevated at 46.1, EKG does not show any acute ischemic changes per my interpretation. And multiple times here in the ED the patient became hypoxic down to 88%, he was placed on nasal cannula oxygen with good improvement. Given the patient's hypoxia and viral panel testing that is positive for influenza A, he was given Tamiflu and will be admitted to the hospitalist service for further care. [facility] hospitalist service was consulted for admission and the patient was placed for admission in stable condition. Consultants/Discussions held with other healthcare providers: -Hospitalist service, Dr. Dumont Disposition discussion held by myself with: -Patient * CRITICAL CARE TIME: ( 43 ) minutes -Stabilization of patient with hypoxia down to 88% on room air requiring supplemental oxygen for correction, time spent at the bedside, interpretation of diagnostic studies, consultation with other healthcare providers for arrangement of admission. Diagnosis: 1. Hypoxia, acute 2. Influenza A infection, acute 3. Generalized weakness, acute 4. Dyspnea, acute 5. Hyperglycemia, acute, without DKA Disposition: Admission Anselmo Saravia DO Emergency Medicine Past Med/Surg History Medical History Slow to wake up after anesthesia Acute kidney failure Anemia of chronic disease Wound of lower extremity Diabetes, type I Chronic kidney disease, stage 4 (severe) Nephrotic syndrome Diabetic nephropathy CAD, multiple vessel Diabetic peripheral 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 Diverticulosis Dyslipidemia Hypertension DDD (degenerative disc disease), lumbar 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 GERD (gastroesophageal reflux disease) Mild obstructive sleep apnea Restless leg syndrome History of TIA (transient ischemic attack) Surgical History S/P arteriovenous (AV) fistula creation History of esophagogastroduodenoscopy (EGD) History of colonoscopy Status post below knee amputation of left lower extremity S/P lumbar laminectomy S/P foot surgery S/P eye surgery S/P CABG x 4 History of lumbar discectomy History of tonsillectomy Family History Father , age 78 with prostate cancer Colorectal cancer Cardiovascular disease Diabetes Prostate cancer Grandmother (Maternal) Diabetes Mother , age 54 of throat cancer Throat cancer Denies family history of Ovarian cancer Myocardial infarction Breast cancer Social History Smoking Status: Never smoker Second Hand Exposure: No; Do You Dip or Chew Tobacco: No; Hx Alcohol Use: Yes (hx-maybe 50 years ago) Hx Substance Use: No Preferred Language: Serbian Communication Ability: Effective Visual Impairment: No Limitations Hearing Ability: Normal Installment Loan Collector Required: No Beliefs That Will Affect Care: None marital status: / marital status details: lost August 2021 Current Living Situation: Alone current occupational status: retired current occupation: How many Children do You have: 2 other: Retired age 63-1/2. Feels Safe at Home: Yes Childhood Exposure to Second-Hand Smoke: No Diet: regular caffeine: No during the past year weight has: remained stable Dental Care, Regularly: Yes Physical Activity Frequency: Other Physical Activity Frequency Comment: limited d/t disability Seatbelt Use: always Sunscreen Use: Yes Assistive Devices: Glasses, Scooter/Electric Scooter and Walker Allergies Allergies Allergy/AdvReac Type Severity Reaction Status Date / Time sulfamethoxazole Allergy Intermediate Rash Verified 03/11/23 11:24 trimethoprim Allergy Intermediate Rash Verified 03/11/23 11:24 Quinolones Allergy Mild Itchiness Verified 03/11/23 11:24 ofloxacin [From Floxin] Allergy itching Verified 03/11/23 11:24 Home Meds Home Medications Medication Instructions Recorded Confirmed aspirin 325 mg tablet 325 mg PO QAM 12/27/17 04/02/23 latanoprost 0.005 % eye drops 1 drp OPB HS 12/27/17 04/02/23 (Xalatan) lancets (OneTouch UltraSoft #50 ea 12/12/18 03/11/23 Lancets) cholecalciferol (vitamin D3) 50 2,000 units PO QAM 11/10/19 04/02/23 mcg (2,000 unit) capsule (Vitamin D3) brimonidine 0.2 % eye drops 1 drp OPB BID 12/07/20 04/02/23 dorzolamide 2 % eye drops 1 drp OPB BID 12/07/20 04/02/23 timolol maleate 0.5 % eye gel 1 drp OPB BID 12/07/20 04/02/23 forming solution calcium carb 333 mg-vit D3 133 1 tab PO QAM 01/30/21 04/02/23 unit-mag ox 133 mg-zinc oxide 5 mg tab (Billy Mag Zinc Plus D3) ascorbic acid (vitamin C) 500 mg 500 mg PO QAM 02/19/21 04/02/23 capsule potassium gluconate 595 mg (99 mg) 1,785 mg PO QAM 06/09/21 04/02/23 tablet trazodone 50 mg tablet 50 mg PO HS 10/12/22 04/02/23 Previous Rx's Medication Instructions Recorded Wheelchair (Powered) #1 ea 11/22/19 blood sugar diagnostic (OneTouch #100 ea 01/31/20 Ultra Blue Test Strip) flash glucose scanning reader #1 ea 12/17/21 (FreeStyle Farhad 2 [place]) metolazone 5 mg tablet 5 mg PO UD PRN weight gain #14 tabs 02/04/22 bumetanide 2 mg tablet 4 mg (2 x 2 mg) PO BID #120 tabs 06/01/22 flash glucose sensor (FreeStyle #2 ea 08/06/22 Farhad 2 Sensor kit) atorvastatin 80 mg tablet (Lipitor) 80 mg PO QAM #90 tabs 12/18/22 losartan 100 mg tablet 100 mg PO QAM #90 tabs 12/23/22 diltiazem HCl 240 mg 240 mg PO DAILY #90 caps 01/21/23 capsule,extended release 24 hr calcitriol 0.5 mcg capsule 1 mcg (2 x 0.5 mcg) PO QAM #60 caps 01/25/23 albuterol sulfate 90 mcg/actuation 2 puff inhalation Q6H PRN 02/10/23 aerosol inhaler shortness of breath or wheezing #18 grams Humalog KwikPen Insulin 100 25 unit (0.25 mL) subcut DAILY #15 02/25/23 unit/mL subcutaneous (insulin mL lispro) Vivekudionna SoloStar U-300 Insulin 300 20 unit (0.0667 mL) subcut DAILY 02/25/23 unit/mL (1.5 mL) subcutaneous pen #4.5 mL (insulin glargine U-300 conc) pen needle, diabetic 32 gauge x #400 ea 02/25/23" (BD Ultra-Fine Florence Pen Needle) ropinirole 1 mg tablet 3 mg (3 x 1 mg) PO HS #270 tabs 03/16/23 Results & Data (ED) Vital Signs Vital Signs - 24 hr 04/02/23 15:48 04/02/23 16:58 04/02/23 17:00 Temperature 36.6 C Temperature Source Temporal Artery Scan Pulse Rate 75 Pulse Rate [Apical] 73 75 Pulse Rhythm [Apical] Regular Irregular Pulse Strength [Apical] Normal Respiratory Rate 20 21 16 Respiratory Effort / Characteristics Non-Labored Non-Labored Spontaneous Non-Labored Spontaneous Respiratory Depth Normal Normal Normal Blood Pressure 150/68 H Blood Pressure [Right Arm] 157/75 H Blood Pressure Mean 95 Blood Pressure Mean [Right Arm] 102 Blood Pressure Position [Right Arm] Semi-fowlers Pulse Oximetry 96 92 87 L Oxygen Delivery Method Room Air Room Air Room Air Oxygen Flow Rate Sepsis Recent Fever Within 48 Hours No Sepsis New/Unexplained Change in Mental Status No Sepsis Action Taken by Nursing No Action Required Oxygen Flow Rate - Titration Pulse Oximetry Post Tiitration 04/02/23 17:06 04/02/23 18:16 04/02/23 21:01 Temperature Temperature Source Pulse Rate 76 73 Pulse Rate [Apical] Pulse Rhythm [Apical] Pulse Strength [Apical] Respiratory Rate Respiratory Effort / Characteristics Respiratory Depth Blood Pressure Blood Pressure [Right Arm] Blood Pressure Mean Blood Pressure Mean [Right Arm] Blood Pressure Position [Right Arm] Pulse Oximetry 88 L Oxygen Delivery Method Room Air Oxygen Flow Rate 0 Sepsis Recent Fever Within 48 Hours Sepsis New/Unexplained Change in Mental Status Sepsis Action Taken by Nursing Oxygen Flow Rate - Titration 2 Pulse Oximetry Post Tiitration 98 Laboratory Data 04/02/23 16:45 04/02/23 16:45 Lab Results 04/02/23 04/02/23 04/02/23 Range/Units 15:52 16:45 18:36 WBC 5.03 (4.8-10.8) K/ul RBC 3.55 L (4.70-6.10) M/uL Hgb 11.0 L (14.0-18.0) g/dl Hct 33.0 L (42.0-52.0) % MCV 93.0 (80.0-100.0) fL MCH 31.0 (25.0-34.0) pg MCHC 33.3 (32.0-36.0) g/dL RDW Std Deviation 47.8 H (36.4-46.3) fL RDW Coeff of Jose 14.0 (11.5-14.5) % Plt Count 137 (130-400) K/uL MPV 13.1 H (9.4-12.4) fL Immature Gran % (Auto) 0.2 % Neut % (Auto) 75.7 % Lymph % (Auto) 8.2 % Daniels % (Auto) 14.3 % Eos % (Auto) 1.4 % Baso % (Auto) 0.2 % Neut # (Auto) 3.81 (1.40-6.50) K/uL Lymph # (Auto) 0.41 L (1.20-3.40) K/uL Daniels # (Auto) 0.72 H (0.11-0.59) K/uL Eos # (Auto) 0.07 (0.00-0.50) K/uL Baso # (Auto) 0.01 (0.00-0.20) K/uL Immature Gran # (Auto) 0.01 (0.01-0.20) K/uL PT 11.6 (9.0-12.0) Seconds INR 1.1 (0.9-1.1) APTT 32 H (21-31) Seconds PTT Ratio 1.1 Sodium 134 L (136-145) mmol/L Potassium 4.4 (3.5-5.1) mmol/L Chloride 100 (98-107) mmol/L Carbon Dioxide 25 (21-32) mmol/L Anion Gap 9 (3-11) BUN 76 H (6-23) mg/dl Creatinine 2.86 H (0.6-1.4) mg/dl Est Cr Clr Drug Dosing Not Reportable Est GFR ( Amer) 24.0 ml/min Est GFR (Non-Af Amer) 20.7 ml/min BUN/Creatinine Ratio 26.6 H (10-20) Glucose 339 H* (70-99(Fasting)) mg/dl POC Glucose (70-99) mg/dl Calcium 8.4 L (8.6-10.3) mg/dl Phosphorus 3.8 (2.5-4.9) mg/dl Magnesium 2.3 (1.7-2.4) mg/dl Total Bilirubin 0.3 (0.2-1.0) mg/dl AST 17 (13-39) U/L ALT 14 (7-52) U/L Alkaline Phosphatase 68 (34-104) U/L Troponin I High Sens 46.1 H 52.7 H* (0-20) pg/ml Total Protein 6.7 (6.0-8.3) gm/dl Albumin 3.6 (3.4-5.0) gm/dl Globulin 3.1 (2.5-4.0) gm/dl Albumin/Globulin Ratio 1.2 (0.9-2) Nasal Influ A H1 2008 PCR DETECTED A* (NotDetected) Adenovirus (PCR) Not Detected (NotDetected) B. pertussis DNA (PCR) Not Detected (NotDetected) B.parapertussis DNA PCR Not Detected (NotDetected) C. pneumoniae DNA (PCR) Not Detected (NotDetected) Coronavirus OC43 (PCR) Not Detected (NotDetected) Coronavirus HKU1 (PCR) Not Detected (NotDetected) Coronavirus 229E (PCR) Not Detected (NotDetected) SARS-CoV-2 (PCR) Not Detected (NotDetected) Coronavirus NL63 (PCR) Not Detected (NotDetected) Human Metapneumovir PCR Not Detected (NotDetected) Influenza Type B (PCR) Not Detected (NotDetected) M. pneumoniae (PCR) Not Detected (NotDetected) Parainfluenza 1 (PCR) Not Detected (NotDetected) Parainfluenza 2 (PCR) Not Detected (NotDetected) Parainfluenza 3 (PCR) Not Detected (NotDetected) Parainfluenza 4 (PCR) Not Detected (NotDetected) RSV (PCR) Not Detected (NotDetected) Entero/Rhino (PCR) Not Detected (NotDetected) 04/02/23 Range/Units 21:38 WBC (4.8-10.8) K/ul RBC (4.70-6.10) M/uL Hgb (14.0-18.0) g/dl Hct (42.0-52.0) % MCV (80.0-100.0) fL MCH (25.0-34.0) pg MCHC (32.0-36.0) g/dL RDW Std Deviation (36.4-46.3) fL RDW Coeff of Jose (11.5-14.5) % Plt Count (130-400) K/uL MPV (9.4-12.4) fL Immature Gran % (Auto) % Neut % (Auto) % Lymph % (Auto) % Daniels % (Auto) % Eos % (Auto) % Baso % (Auto) % Neut # (Auto) (1.40-6.50) K/uL Lymph # (Auto) (1.20-3.40) K/uL Daniels # (Auto) (0.11-0.59) K/uL Eos # (Auto) (0.00-0.50) K/uL Baso # (Auto) (0.00-0.20) K/uL Immature Gran # (Auto) (0.01-0.20) K/uL PT (9.0-12.0) Seconds INR (0.9-1.1) APTT (21-31) Seconds PTT Ratio Sodium (136-145) mmol/L Potassium (3.5-5.1) mmol/L Chloride (98-107) mmol/L Carbon Dioxide (21-32) mmol/L Anion Gap (3-11) BUN (6-23) mg/dl Creatinine (0.6-1.4) mg/dl Est Cr Clr Drug Dosing Est GFR ( Amer) ml/min Est GFR (Non-Af Amer) ml/min BUN/Creatinine Ratio (10-20) Glucose (70-99(Fasting)) mg/dl POC Glucose 306 H* (70-99) mg/dl Calcium (8.6-10.3) mg/dl Phosphorus (2.5-4.9) mg/dl Magnesium (1.7-2.4) mg/dl Total Bilirubin (0.2-1.0) mg/dl AST (13-39) U/L ALT (7-52) U/L Alkaline Phosphatase (34-104) U/L Troponin I High Sens (0-20) pg/ml Total Protein (6.0-8.3) gm/dl Albumin (3.4-5.0) gm/dl Globulin (2.5-4.0) gm/dl Albumin/Globulin Ratio (0.9-2) Nasal Influ A H1 2009 PCR (NotDetected) Adenovirus (PCR) (NotDetected) B. pertussis DNA (PCR) (NotDetected) B.parapertussis DNA PCR (NotDetected) C. pneumoniae DNA (PCR) (NotDetected) Coronavirus OC43 (PCR) (NotDetected) Coronavirus HKU1 (PCR) (NotDetected) Coronavirus 229E (PCR) (NotDetected) SARS-CoV-2 (PCR) (NotDetected) Coronavirus NL63 (PCR) (NotDetected) Human Metapneumovir PCR (NotDetected) Influenza Type B (PCR) (NotDetected) M. pneumoniae (PCR) (NotDetected) Parainfluenza 1 (PCR) (NotDetected) Parainfluenza 2 (PCR) (NotDetected) Parainfluenza 3 (PCR) (NotDetected) Parainfluenza 4 (PCR) (NotDetected) RSV (PCR) (NotDetected) Entero/Rhino (PCR) (NotDetected) Administered Medications Discontinued Medications Acetaminophen (Acetaminophen 1000 Mg/100 Ml Iv) Confirm Administered Dose 1,000 mg IV .STK-MED ONE Stop: 04/02/23 21:34 Last Admin: 04/02/23 21:58 Dose: Not Given Documented By: LIAN Sodium Chloride (Nss) 500 mls @ 999 mls/hr IV .Q31M ONE Stop: 04/02/23 18:07 Last Infusion: 04/02/23 18:52 Dose: Infused Documented By: Admin: 04/02/23 17:44 Dose: 999 mls/hr Documented By: Acetaminophen (Ofirmev) 1,000 mg in 100 mls @ 400 mls/hr IV NOW STA Stop: 04/02/23 21:21 Last Infusion: 04/02/23 22:40 Dose: Infused Documented By: Admin: 04/02/23 21:42 Dose: 400 mls/hr Documented By: LIAN Lidocaine (Lidocaine 5% 1 Patch) 1 patch TD NOW STA Stop: 04/02/23 20:47 Last Admin: 04/02/23 21:42 Dose: 1 patch Documented By: LIAN Lidocaine (Lidocaine 5% 1 Patch) Confirm Administered Dose 1 patch TD .STK-MED ONE Stop: 04/02/23 21:34 Last Admin: 04/02/23 21:43 Dose: Not Given Documented By: LIAN Oseltamivir Phosphate (Oseltamivir Phosphate 75 Mg Cap) 75 mg PO NOW STA; Protocol Stop: 04/02/23 20:48 Last Admin: 04/02/23 21:59 Dose: Not Given Documented By: LIAN Imaging Data Radiologist's Impression: Chest X-Ray 04/02/23 15:51 XR chest 1V not portable CLINICAL HISTORY: Chest pain, nonspecific TECHNIQUE: Single frontal radiograph of the chest was obtained. Comparison: Comparison is made to chest radiograph 12/21/2022 FINDINGS: Median sternotomy wires are unchanged. Cardiomegaly is noted. There is prominence and cephalization of the vasculature with Jaxon B lines seen. No evidence of pleural effusion or pneumothorax. IMPRESSION: Cardiomegaly and moderate pulmonary edema. ACT 112: Negative or not required by law. Electronically signed by: Lai Marion M.D. 04/02/2023 5:52 PM Discharge Plan Visit Data Chief Complaint: Illness Stated Complaint: SOB, CHEST PAIN, HEADACHE ED Provider: Anselmo Saravia Discharge Problem: Hypoxia Forms Stand Alone Forms: [facility]BOX Prescriptions Prescriptions: No Action (DME) OneTouch Ultra Blue Test Strip Strip See Dose Instructions .ROUTE .MEDSUPPLY Qty: 100 5RF Rx Instructions: use 1 strip to check glucose 4 times daily dx: E10.42, E10.65, E10.319 (DME) FreeStyle Farhad 2 [place] [facility] [place] See Rx Instructions .ROUTE .MEDSUPPLY Qty: 1 0RF Rx Instructions: As directed metolazone 5 mg tablet 5 mg PO UD PRN (Reason: weight gain) Qty: 14 6RF Hold Instructions: julian atorvastatin [Lipitor] 80 mg tablet 80 mg PO QAM Qty: 90 1RF losartan 100 mg tablet 100 mg PO QAM Qty: 90 1RF insulin lispro [Humalog KwikPen Insulin] 100 unit/mL insulin pen 25 unit subcut DAILY Qty: 15 5RF Rx Instructions: Inject with meals; TDD 25 units (DME) pen needle, diabetic [BD Ultra-Fine [place] Pen Needle] 32 gauge x 5/32" needle See Rx Instructions .Route Qty: 400 3RF Rx Instructions: Inject insulin four times daily Toujeo SoloStar U-300 Insulin 300 unit/mL (1.5 mL) insulin pen 20 unit subcut DAILY Qty: 4.5 2RF ropinirole 1 mg tablet 3 mg PO HS Qty: 270 1RF (DME) lancets [OneTouch UltraSoft Lancets] misc See Dose Instructions .ROUTE .MEDSUPPLY Qty: 50 Rx Instructions: test 4 times dailiy ascorbic acid (vitamin C) 500 mg capsule 500 mg PO QAM (DME) Wheelchair (Powered) Device See Rx Instructions .ROUTE .MEDSUPPLY Qty: 1 0RF Rx Instructions: powered wheelchair as directed (DME) FreeStyle Farhad 2 Sensor Kit See Rx Instructions .ROUTE .MEDSUPPLY Qty: 2 5RF Rx Instructions: As directed. Dx: E10.319, E10.65, E10.42. Testing BS qid bumetanide 2 mg tablet 4 mg PO BID Qty: 120 6RF calcitriol 0.5 mcg capsule 1 mcg PO QAM Qty: 60 4RF diltiazem HCl 240 mg capsule,extended release 24hr 240 mg PO DAILY Qty: 90 3RF albuterol sulfate 90 mcg/actuation HFA aerosol inhaler 2 puff inhalation Q6H PRN (Reason: shortness of breath or wheezing) Qty: 18 3RF latanoprost [Xalatan] 0.005 % Drops 1 drp OPB HS aspirin 325 mg Tablet 325 mg PO QAM cholecalciferol (vitamin D3) [Vitamin D3] 50 mcg (2,000 unit) capsule 2,000 units PO QAM brimonidine 0.2 % drops 1 drp OPB BID timolol maleate 0.5 % gel forming solution 1 drp OPB BID dorzolamide 2 % drops 1 drp OPB BID trazodone 50 mg tablet 50 mg PO HS Billy Mag Zinc Plus D3 333 mg-133 unit -133 mg-5 mg Tablet 1 tab PO QAM potassium gluconate 595 mg (99 mg) tablet 1,785 mg PO QAM Referrals Referrals: Leah Wolf, [Primary Care Provider] -
[2023-04-02 17:42] LABS: Alanine Aminotransferase 14 U/L (7-52); Albumin Globulin Ratio 1.2 (0.9-2); Albumin Level 3.6 gm/dl (3.4-5.0); Alkaline Phosphatase 68 U/L (34-104); Anion Gap 9 (3-11); Aspartate Aminotransferase 17 U/L (13-39); BUN Creatinine Ratio 26.6 (10-20); Bilirubin,Total 0.3 mg/dl (0.2-1.0); Blood Urea Nitrogen 76 mg/dl (6-23); Calcium 8.4 mg/dl (8.6-10.3); Carbon Dioxide 25 mmol/L (21-32); Chloride 100 mmol/L (98-107); Est GFR (Non-African American) 20.7 ml/min; Globulin 3.1 gm/dl (2.5-4.0); Glucose 339 mg/dl (70-99(Fasting)); Potassium 4.4 mmol/L (3.5-5.1); Sodium 134 mmol/L (136-145); Total Protein 6.7 gm/dl (6.0-8.3); Troponin I High Sensitivity 46.1 pg/ml (0-20)
--- NOTE | 2023-04-02 17:53 | XRay Report ---
XR chest 1V not portable CLINICAL HISTORY: Chest pain, nonspecific TECHNIQUE: Single frontal radiograph of the chest was obtained. Comparison: Comparison is made to chest radiograph 12/21/2022 FINDINGS: Median sternotomy wires are unchanged. Cardiomegaly is noted. There is prominence and cephalization o f the vasculature with Jaxon B lines seen. No evidence of pleural effusion or pneumothorax. IMPRESSION: Cardiomegaly and moderate pulmonary edema. ACT 112: Negative or not required by law. Electronically signed by: Lai Marion M.D. 04/02/2023 5:52 PM
[2023-04-02 19:18] LABS: Troponin I High Sensitivity 52.7 pg/ml (0-20)
[2023-04-02] MEDS ORDERED: OSELTAMIVIR PHOSPHATE 75 MG CAP PO STA ×2 (20:46→20:47)
[2023-04-02] MEDS ORDERED: LIDOCAINE 5% 1 PATCH TD STA (20:46)
[2023-04-02] MEDS ORDERED: ACETAMINOPHEN 1,000 MG/100 ML VIAL IV STA (21:07)
--- NOTE | 2023-04-02 21:27 | History & Physical Report ---
Date of Service April 02, 2023 Assessment & Plan (1) Influenza A virus subtype H1 2009 pandemic strain present: Plan: 72 M with history of CAD s/p quadruple bypass, DM 1 with associated retinopathy, L BKA, and peripheral neuropathy, who presents to the emergency room with generalized weakness, cough, and myalgia x 2 days. Now admitted to the hospital for acute management of influenza A. Influenza A -Afebrile, normal white count, hemodynamically stable. -Brief hypoxia on room air which improved after O2 supplementation via NC. Now saturating 98% on room air as of this note. -Already vaccinated for COVID-19 and flu this season. * Admit to [facility] telemetry * Oseltamavir 25 mg twice daily x 5 days * Supportive management as needed (benzonatate, guaifenesin, ipratropium) * Trend daily labs Hyperglycemia/DM 1 -Patient presented with hyperglycemia (339) in the setting of poorly controlled type 1 diabetes (Hgb A1c-9.1% on 03/31/2023) -Chronically on a basal/bolus insulin regimen: Glargine (Toujeo) 20 units daily, lispro (Humalog) 25 units daily. -Gave half daily home bolus dose (10 units) on admission. * Continue adjusted home regimen: 15 units of glargine daily, mealtime SSI per protocol * ACHS checks per protocol Elevated troponin -High-sensitivity troponin 46.1 on admission without complaint of chest pain/pressure. Mildly elevated in 2022 (23.3, 24.7). -Peaked at 52.7 on repeat troponin. Downtrending 4 hours later (49.0). * Consider resolved. Coronary artery disease -History of quadruple bypass in 2011 (ZURITA to LAD, SVG to OM, SVG to diagonal, SVG to RPDA). -Currently hemodynamically stable. Continue home regimen: * Aspirin 325 mg daily * Atorvastatin 80 mg daily * Losartan 100 mg daily HFpEF -Diagnosed in 2019 following hospital admission for nephrotic syndrome, renal insufficiency. -Most recent echocardiogram 2022, EF = 55-60% (moderate concentric LVH, moderate MR, mild-moderate TR, elevated RV systolic pressure). -Follow[place] [facility] [place]. Most recent visit on 03/11 for volume management notes positive response to switch to diltiazem (previously amlodipine). -Continue home regimen as follows: * Bumetanide 4 mg twice daily * Diltiazem 240 mg daily * Losartan as above * Metolazone as needed for weight gain * Daily weights Degenerative Disc Disease (lumbar)/Back Pain -S/p lumbar laminectomy in 2011. No chronic pain medications, though reported severe back pain on admission, with tenderness on exam. -S/p Tylenol 1000 mg x 1, lidocaine patch on admission. * Continue Tylenol 1000 mg every 8 hours as needed * Lidocaine patch daily as needed CKD 4/Diabetic Nephropathy -GFR of 20.7, at baseline. Cr-2.86 slightly above baseline (2.1-2.4). -K+, Mg, Phos within goal ranges on admission labs. 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, with long-term current use of insulin: (4) DDD (degenerative disc disease), lumbar: (5) CAD, multiple vessel: (6) (HFpEF) heart failure with preserved ejection fraction: (7) 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: (8) Hypertension: (9) Dyslipidemia: (10) Restless leg syndrome: (11) Chronic kidney disease, stage 4 (severe): (12) Glaucoma: (13) Vitamin D deficiency: History of Present Illness Primary Care Provider: DO Dayton Oneill is a 72-year-old man with a past medical history of type 1 diabetes, DM1- associated peripheral neuropathy (s/p left BKA), CKD 4, lumbar DDD s/p lumbar laminectomy, multivessel coronary artery disease (s/p CABG x 4 in 2011), TIA, hypertension, GERD, restless leg syndrome, and JEREMIE, who presents to the emergency room after 2 days of generalized weakness, myalgias, and cough. He denies fever,, chills, chest pain, nausea, or vomiting. In the ED, vitals were stable/wnl. O2 saturation dropped to 87% on room air, after which she received oxygen via nasal cannula and improved again to the 90s. Notable labs include: BUN-76, Cr-2.86, glucose-339, hs troponin-46.1 (peak-52.7 on repeat). Respiratory viral panel PCR returned positive for influenza A (H 04/2008). He received an NS bolus x 0.5 L and hospitalist service was consulted for admission. On admission, he reports severe back pain, suprapubic pain, right lower quadrant abdominal pain, and right flank pain. Allergies Allergy/AdvReac Type Severity Reaction Status Date / Time sulfamethoxazole Allergy Intermediate Rash Verified 03/11/23 11:24 trimethoprim Allergy Intermediate Rash Verified 03/11/23 11:24 Quinolones Allergy Mild Itchiness Verified 03/11/23 11:24 ofloxacin [From Floxin] Allergy itching Verified 03/11/23 11:24 Home Medications Medication Instructions Recorded Confirmed Type aspirin 325 mg tablet 325 mg PO QAM 12/27/17 04/02/23 History latanoprost 0.005 % eye drops 1 drp OPB HS 12/27/17 04/02/23 History (Xalatan) lancets (8aweekTouch UltraSoft #50 ea 12/12/18 03/11/23 History Lancets) cholecalciferol (vitamin D3) 50 2,000 units PO QAM 11/10/19 04/02/23 History mcg (2,000 unit) capsule (Vitamin D3) Wheelchair (Powered) #1 ea 11/22/19 03/11/23 Rx blood sugar diagnostic (OneTouch #100 ea 01/31/20 03/11/23 Rx Ultra Blue Test Strip) brimonidine 0.2 % eye drops 1 drp OPB BID 12/07/20 04/02/23 History dorzolamide 2 % eye drops 1 drp OPB BID 12/07/20 04/02/23 History timolol maleate 0.5 % eye gel 1 drp OPB BID 12/07/20 04/02/23 History forming solution calcium carb 333 mg-vit D3 133 1 tab PO QAM 01/30/21 04/02/23 History unit-mag ox 133 mg-zinc oxide 5 mg tab (Billy Mag Zinc Plus D3) ascorbic acid (vitamin C) 500 mg 500 mg PO QAM 02/19/21 04/02/23 History capsule potassium gluconate 595 mg (99 mg) 1,785 mg PO QAM 06/09/21 04/02/23 History tablet flash glucose scanning reader #1 ea 12/17/21 04/02/23 Rx (FreeStyle Farhad 2 [place]) metolazone 5 mg tablet 5 mg PO UD PRN weight gain #14 tabs 02/04/22 04/02/23 Rx bumetanide 2 mg tablet 4 mg (2 x 2 mg) PO BID #120 tabs 06/01/22 04/02/23 Rx flash glucose sensor (FreeStyle #2 ea 08/06/22 04/02/23 Rx Farhad 2 Sensor kit) trazodone 50 mg tablet 50 mg PO HS 10/12/22 04/02/23 History atorvastatin 80 mg tablet (Lipitor) 80 mg PO QAM #90 tabs 12/18/22 04/02/23 Rx losartan 100 mg tablet 100 mg PO QAM #90 tabs 12/23/22 04/02/23 Rx diltiazem HCl 240 mg 240 mg PO DAILY #90 caps 01/21/23 04/02/23 Rx capsule,extended release 24 hr calcitriol 0.5 mcg capsule 1 mcg (2 x 0.5 mcg) PO QAM #60 caps 01/25/23 04/02/23 Rx albuterol sulfate 90 mcg/actuation 2 puff inhalation Q6H PRN 02/10/23 04/02/23 Rx aerosol inhaler shortness of breath or wheezing #18 grams Humalog KwikPen Insulin 100 25 unit (0.25 mL) subcut DAILY #15 02/25/23 04/02/23 Rx unit/mL subcutaneous (insulin mL lispro) Toujeo SoloStar U-300 Insulin 300 20 unit (0.0667 mL) subcut DAILY 02/25/23 04/02/23 Rx unit/mL (1.5 mL) subcutaneous pen #4.5 mL (insulin glargine U-300 conc) pen needle, diabetic 32 gauge x #400 ea 02/25/23 03/11/23 Rx " (BD Ultra-Fine [place] Pen Needle) ropinirole 1 mg tablet 3 mg (3 x 1 mg) PO HS #270 tabs 03/16/23 04/02/23 Rx Past Med/Surg History Medical History Slow to wake up after anesthesia Acute kidney failure Anemia of chronic disease Wound of lower extremity Diabetes, type I Chronic kidney disease, stage 4 (severe) Nephrotic syndrome Diabetic nephropathy CAD, multiple vessel Diabetic peripheral 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 Diverticulosis Dyslipidemia Hypertension DDD (degenerative disc disease), lumbar 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 GERD (gastroesophageal reflux disease) Mild obstructive sleep apnea Restless leg syndrome History of TIA (transient ischemic attack) Surgical History S/P arteriovenous (AV) fistula creation History of esophagogastroduodenoscopy (EGD) History of colonoscopy Status post below knee amputation of left lower extremity S/P lumbar laminectomy S/P foot surgery S/P eye surgery S/P CABG x 4 History of lumbar discectomy History of tonsillectomy Family History Father , age 78 with prostate cancer Colorectal cancer Cardiovascular disease Diabetes Prostate cancer Grandmother (Maternal) Diabetes Mother , age 54 of throat cancer Throat cancer Denies family history of Ovarian cancer Myocardial infarction Breast cancer Social History Smoking Status: Never smoker Second Hand Exposure: No; Do You Dip or Chew Tobacco: No; Hx Alcohol Use: No Hx Substance Use: No Preferred Language: Argentine Communication Ability: Effective Visual Impairment: No Limitations Hearing Ability: Normal Insurance Account Representative Required: No Beliefs That Will Affect Care: None marital status: / marital status details: lost August 2021 Current Living Situation: Alone current occupational status: retired current occupation: How many Children do You have: 2 other: Retired age 63-1/2. Feels Safe at Home: Yes Childhood Exposure to Second-Hand Smoke: No Diet: regular caffeine: No during the past year weight has: remained stable Dental Care, Regularly: Yes Physical Activity Frequency: Other Physical Activity Frequency Comment: limited d/t disability Seatbelt Use: always Sunscreen Use: Yes Assistive Devices: Walker and Wheelchair Assistive Devices Comment: left leg prosthetic Review of Systems Review of Systems: All systems reviewed & are unremarkable except as noted in HPI & below Physical Exam Physical Exam: General: Well-appearing, alert, interactive, and in no acute distress. HEENT: Normocephalic, atraumatic. EOM intact. Good conjugate gaze. Nares patent. Moist mucosal membranes. Neck: Supple. No lymphadenopathy. Normal ROM. CV: Regular rate and rhythm. Normal S1 and S2. No murmurs gallops or rubs. Respiratory: Normal respiratory effort. Diminished breath sounds, crackles heard at right lung base. Anterior chest wall tenderness to palpation with inspiration. Abdomen: Large abdomen. Suprapubic tenderness to palpation. RLQ tenderness to palpation. Right flank tenderness to palpation. No guarding or rebound. Extremities: Left BKA. Mild right LE pedal edema, erythema. Left knee stump clean and dry without swelling, erythema, or discharge. Neuro: Alert and oriented x3. Skin: Clean, dry, and intact. No rashes, bruises, or erythema. Results & Data Results & Data Vital Signs (Past 12 Hours) Vital Signs Temp Pulse Pulse Resp BP BP Pulse Ox 04/02/23 18:16 88 L 04/02/23 17:06 76 04/02/23 17:00 75 16 87 L 04/02/23 16:58 73 21 157/75 H 92 04/02/23 15:48 36.6 C 75 20 150/68 H 96 O2 Del Method O2 Flow Rate 04/02/23 18:16 Room Air 0 04/02/23 17:06 04/02/23 17:00 Room Air 04/02/23 16:58 Room Air 04/02/23 15:48 Room Air Supervising Physician Co-Signing Physician Notes Attending addendum: I have physically seen this patient, have supervised the medical residents activities, and agree with the H&P unless as otherwise noted. Assessment and Plan: Influenza A subtype H 1 2009 pandemic strain- Admit to [facility] with telemetry due to hypoxia Placed on Tamiflu x 5 days Guaifenesin extended release 1200 mg p.o. twice daily Tessalon Perles 100 mg p.o. 3 times daily as needed Nasal cannula oxygen, titrate to keep pulse ox 92-94% Diabetes mellitus- BSG 339 on admission Adjust glargine dosing as noted Placed on Accu-Cheks with SSI per protocol Elevated troponin/CAD/HFpEF- Troponin 52.7 on admission, with follow-up 49.0 No further testing, likely supply demand mismatch Continue aspirin, losartan, bumetanide, diltiazem Hold as needed metolazone Remaining orders and notations as noted Resident Activity Tracking Resident Involvement: Resident Care Provided Care Provided: Adult Hospital Medicine (6) (HFpEF) heart failure with preserved ejection fraction Heart failure chronicity: chronic Qualified Code(s): I50.32 - Chronic diastolic (congestive) heart failure (7) 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 (8) Hypertension Hypertension type: primary hypertension Qualified Code(s): I10 - Essential (primary) hypertension (12) Glaucoma Glaucoma type: associated with underlying disease Laterality: unspecified laterality Qualified Code(s): H42 - Glaucoma in diseases classified elsewhere
[2023-04-02] MEDS ORDERED: LIDOCAINE 5% 1 PATCH TD ONE (21:33)
[2023-04-02] MEDS ORDERED: ACETAMINOPHEN 1000 MG/100 ML IV IV ONE (21:33)
[2023-04-02 21:34] LABS: Magnesium 2.3 mg/dl (1.7-2.4); Phosphorus 3.8 mg/dl (2.5-4.9)
[2023-04-02] MEDS ORDERED: LANTUS PER UNIT CHARGE SQ STA (22:44)
[2023-04-02] MEDS ORDERED: Patient's HEIGHT &/or WEIGHT Needed ONE (23:00)
[2023-04-02] MEDS ORDERED: CARBOHYDRATES FOR HYPOGLYCEMIA PO PRN (23:51)
[2023-04-02] MEDS ORDERED: GLUCOSE 10 TAB/TUBE PO PRN (23:51)
[2023-04-02] MEDS ORDERED: metOLazone 5 MG TABLET PO PRN (23:51)
[2023-04-02] MEDS ORDERED: BENZONATATE 100 MG CAPSULE PO PRN (23:51)
[2023-04-02] MEDS ORDERED: DEXTROSE 50% 50 ML SYRINGE IV PRN (23:51)
[2023-04-02] MEDS ORDERED: ALBUTEROL HFA 8 GM INHALER INH PRN (23:51)
[2023-04-02] MEDS ORDERED: guaiFENesin SUGAR FREE 100 MG/5 ML UDC PO PRN (23:51)
[2023-04-02] MEDS ORDERED: GLUCAGON FOR INJ 1 MG VIAL SQ PRN (23:51)
[2023-04-02] MEDS ORDERED: IPRATROPIUM BROMIDE HFA INHALER INH PRN (23:51)
[2023-04-02] MEDS ORDERED: NON-FORMULARY MEDICATION (Flash Glucose Sensor [Freestyle Libre 2 Sensor] kit) SCH (23:51)
[2023-04-02] MEDS ORDERED: GLUCOSE 40% GEL 15 GM TUBE PO PRN (23:51)
[2023-04-02] MEDS ORDERED: NON-FORMULARY MEDICATION (Flash Glucose Scanning Reader [Freestyle Libre 2 Reader] misc) SCH (23:51)
[2023-04-03] MEDS ORDERED: LANTUS PER UNIT CHARGE SQ STA (00:23)
[2023-04-03] MEDS: INSULIN ASPART PER UNIT CHARGE SC SCH ×5 (00:33→20:30)
[2023-04-03] MEDS: LATANOPROST 0.005% OP SOLN 2.5 ML BTL OPB SCH ×2 (01:04→20:25)
[2023-04-03] MEDS: DORZOLAMIDE HCL 2% OPH SOLN 10 ML BTL OPB SCH ×3 (01:05→20:25)
[2023-04-03] MEDS: BRIMONIDINE TARTRATE 0.2% 5ML OPB SCH ×3 (01:05→20:24)
[2023-04-03] MEDS: BUMETANIDE 1 MG TAB PO SCH ×3 (01:06→20:26)
[2023-04-03] MEDS: rOPINIRole HCL 1 MG TABLET PO SCH ×2 (01:08→20:28)
[2023-04-03] MEDS: traZODone HCL 50 MG TAB PO SCH ×2 (01:09→20:29)
[2023-04-03] MEDS ORDERED: POLYETHYLENE (MIRALAX) 17 GM PACK PO PRN (02:17)
--- NOTE | 2023-04-03 06:58 | Electrocardiogram Report ---
Test Reason : Blood Pressure : / mmHG Vent. Rate : 074 BPM Atrial Rate : 074 BPM P-R Int : 236 ms QRS Dur : 140 ms QT Int : 430 ms P-R-T Axes : 052 062 022 degrees QTc Int : 477 ms Sinus rhythm with 1st degree A-V block with Premature atrial complexes Right bundle branch block Anteroseptal infarct (cited on or before 21-DEC-2022) Abnormal ECG When compared with ECG of 21-DEC-2022 13:40, Premature ventricular complexes are no longer Present Premature atrial complexes are now Present [place] interval has increased Questionable change in initial forces of Septal leads Confirmed by Umair Krause ([id number]) on 04/03/2023 6:57:50 AM Referred By: REFERRED SELF Confirmed By:Umair Krause
--- NOTE | 2023-04-03 08:34 | Hospitalist Progress Note ---
Date of Service April 03, 2023 Assessment & Plan (1) Influenza A virus subtype H1 2009 pandemic strain present: Plan: 72 M with history of CAD s/p quadruple bypass, DM 1 with associated retinopathy, L BKA, and peripheral neuropathy, who presents to the emergency room with generalized weakness, cough, and myalgia x 2 days. Now admitted to the hospital for acute management of influenza A. Influenza A -Afebrile, normal white count, hemodynamically stable. -Brief hypoxia on room air which improved after O2 supplementation via NC. Now saturating 98% on room air as of this note. -Already vaccinated for COVID-19 and flu this season. * Oseltamavir 75 mg x 1 then renally dose adjusted to 30 mg once a day * Supportive management as needed (benzonatate, guaifenesin, ipratropium) (2) (HFpEF) heart failure with preserved ejection fraction: Plan: -Most recent echocardiogram 2022, EF = 55-60% (moderate concentric LVH, moderate MR, mild-moderate TR, elevated RV systolic pressure). -[place] [facility] [place] -Continue home regimen as follows: * Bumetanide 4 mg twice daily * Diltiazem 240 mg daily * Losartan 100mg Coronary artery disease -History of quadruple bypass in 2011 (ZURITA to LAD, SVG to OM, SVG to diagonal, SVG to RPDA). -Elevated troponin -High-sensitivity troponin 46.1 on admission without complaint of chest pain/pressure. Mildly elevated in 2022 (23.3, 24.7). -Peaked at 52.7 on repeat troponin. Downtrending 4 hours later (49.0). * Consider demand ischemia due to illness. 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 * Continue adjusted home regimen: 15 units of glargine daily, mealtime SSI per protocol * ACHS checks per protocol * Pt with end organ damage, retinopaty and CKD4 (4) DDD (degenerative disc disease), lumbar: Plan: Degenerative Disc Disease (lumbar)/Back Pain -S/p lumbar laminectomy in 2011. No chronic pain medications, though reported severe back pain on admission, with tenderness on exam. -S/p Tylenol 1000 mg x 1, lidocaine patch on admission. * Continue Tylenol 1000 mg every 8 hours as needed * Lidocaine patch daily as needed (5) Restless leg syndrome: Plan: * Ropinirole 3 mg nightly * Trazodone 50 mg nightly Plan Vitamin D deficiency * Vitamin D 2000 units daily Code: Full code DVT Prophylaxis: Lovenox 40 mg q24h Admission and Anticipated Discharge Date Admission Date: April 02, 2023 Subjective Patient complains of extreme fatigue myalgias and arthralgias does have a cough not particularly short of breath currently on room air. Does have his left lower leg prosthesis in the room but not wearing it Patient feels too ill to go home he is and does not have complete support at home Physical Exam Physical Exam: Patient awake alert appropriate. Cardiac exam is regular. Lungs have some coarse rales heard in all lung sterling no focal air loss or wheeze Abdomen NABS soft Results & Data Results & Data Vital Signs (Past 12 Hours) Vital Signs Temp Pulse Pulse Resp BP Pulse Ox O2 Del Method 04/03/23 07:57 98.8 F 73 18 161/75 H 90 Room Air 04/03/23 04:08 98.2 F 56 L 20 143/58 H 97 Room Air 04/02/23 23:54 98.1 F 71 18 157/92 H 98 Room Air 04/02/23 23:50 Room Air 04/02/23 23:48 63 04/02/23 23:26 92 Nasal Cannula 04/02/23 21:01 73 O2 Flow Rate 04/03/23 07:57 04/03/23 04:08 04/02/23 23:54 04/02/23 23:50 04/02/23 23:48 04/02/23 23:26 2 04/02/23 21:01 Laboratory Results Reviewed CBC Reviewed chemistry Reviewed [id number] glucose PG Care Time/CCT Total # of Minutes Spent Total Time Spent with Patient: Total time spent is greater than 50% in coordination of care (as documented) at patient's floor/unit and/or counseling patient: Coding Level of Care Code 41214 SUB INP/OBS CARE MIN Diagnoses Influenza A virus subtype H1 2009 pandemic strain present J10.1 Chronic heart failure with preserved ejection fraction I50.32 Heart failure chronicity: chronic 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 (2) (HFpEF) heart failure with preserved ejection fraction Heart failure chronicity: chronic Qualified Code(s): I50.32 - Chronic di astolic (congestive) heart failure
[2023-04-03 08:39] LABS: Hematocrit (blood only) 33.9 % (42.0-52.0); Hemoglobin 11.1 g/dl (14.0-18.0); Mean Corpuscular Hemoglobin 30.5 pg (25.0-34.0); Mean Corpuscular Hgb Conc 32.7 g/dL (32.0-36.0); Mean Corpuscular Volume 93.1 fL (80.0-100.0); Platelet Count 143 K/uL (130-400); RDW Standard Deviation 47.1 fL (36.4-46.3); Red Blood Count 3.64 M/uL (4.70-6.10); White Blood Count 4.21 K/ul (4.8-10.8)
[2023-04-03 08:52] LABS: Calcium 8.5 mg/dl (8.6-10.3); Creatinine Clr Calc Pharmacy 34.2 ml/min; Est GFR (African American) 28.3 ml/min; Est GFR (Non-African American) 24.4 ml/min; Potassium 4.3 mmol/L (3.5-5.1)
[2023-04-03] MEDS ORDERED: OSELTAMIVIR PHOSPHATE SUSP 30 MG/5 ML UDP PO SCH (09:00)
[2023-04-03] MEDS ORDERED: NON-FORMULARY MEDICATION (Insulin Lispro [Humalog Kwikpen Insulin] 100 unit/mL insulin pen SQ SCH (09:00)
[2023-04-03] MEDS: ASPIRIN 325 MG ECTAB PO SCH (09:19)
[2023-04-03] MEDS: dilTIAZem HCL 240 MG CAPCR PO SCH (09:19)
[2023-04-03] MEDS: ATORVASTATIN 40 MG TAB PO SCH (09:19)
[2023-04-03] MEDS: CEROVITE ADV FORMULA TAB PO SCH (09:19)
[2023-04-03] MEDS: LOSARTAN POTASSIUM 50 MG TAB PO SCH (09:19)
[2023-04-03] MEDS: ASCORBIC ACID 500 MG TAB PO SCH (09:19)
[2023-04-03] MEDS: CALCITRIOL 0.25 MCG CAPSULE PO SCH (09:19)
[2023-04-03] MEDS: CHOLECALCIFEROL 1,000 UNITS 25 MCG TAB PO SCH (09:19)
[2023-04-03] MEDS: POTASSIUM CHLORIDE 10 MEQ TABCR PO SCH (09:20)
[2023-04-03] MEDS: LANTUS PER UNIT CHARGE SQ SCH (09:30)
[2023-04-03] MEDS: ENOXAPARIN INJ 40 MG/0.4 ML SYR SQ SCH (09:40)
[2023-04-03] MEDS: ACETAMINOPHEN 500 MG TAB PO PRN ×2 (09:40→22:01)
[2023-04-03] MEDS: LIDOCAINE 5% 1 PATCH TD SCH (20:29)
[2023-04-03] MEDS: OSELTAMIVIR PHOSPHATE SUSP 30 MG/5 ML UDP PO SCH (20:30)
[2023-04-04] MEDS: TIMOLOL GFS 0.5% OPH SOLN 74 DROPS/5 ML BTL OPB SCH ×3 (00:16→20:56)
--- NOTE | 2023-04-04 04:13 | Billing Data ---
Date of Service April 04, 2023 Coding Level of Care Code 23786 INT INP/OBS CARE
[2023-04-04 08:20] LABS: Hematocrit (blood only) 32.6 % (42.0-52.0); Hemoglobin 10.7 g/dl (14.0-18.0); Mean Corpuscular Hemoglobin 30.7 pg (25.0-34.0); Mean Corpuscular Hgb Conc 32.8 g/dL (32.0-36.0); Mean Corpuscular Volume 93.4 fL (80.0-100.0); Platelet Count 126 K/uL (130-400); RDW Coefficient of Variation 14.1 % (11.5-14.5); Red Blood Count 3.49 M/uL (4.70-6.10)
[2023-04-04 08:21] LABS: BUN Creatinine Ratio 31.8 (10-20); Calcium 8.4 mg/dl (8.6-10.3); Creatinine Clr Calc Pharmacy 33.1 ml/min; Est GFR (African American) 27.2 ml/min; Est GFR (Non-African American) 23.5 ml/min
[2023-04-04] MEDS: LANTUS PER UNIT CHARGE SQ SCH ×2 (09:45→21:32)
[2023-04-04] MEDS: INSULIN ASPART PER UNIT CHARGE SC SCH ×4 (09:45→21:32)
[2023-04-04] MEDS ORDERED: DOCUSATE SODIUM/SENNA 50/8.6MG TAB PO ONE (09:53)
[2023-04-04] MEDS: DORZOLAMIDE HCL 2% OPH SOLN 10 ML BTL OPB SCH ×2 (10:03→20:54)
[2023-04-04] MEDS: BRIMONIDINE TARTRATE 0.2% 5ML OPB SCH ×2 (10:03→20:54)
[2023-04-04] MEDS: CALCITRIOL 0.25 MCG CAPSULE PO SCH (10:04)
[2023-04-04] MEDS: BUMETANIDE 1 MG TAB PO SCH ×2 (10:05→20:57)
[2023-04-04] MEDS: ASCORBIC ACID 500 MG TAB PO SCH (10:05)
[2023-04-04] MEDS: CHOLECALCIFEROL 1,000 UNITS 25 MCG TAB PO SCH (10:05)
[2023-04-04] MEDS: POTASSIUM CHLORIDE 10 MEQ TABCR PO SCH (10:05)
[2023-04-04] MEDS: dilTIAZem HCL 240 MG CAPCR PO SCH (10:05)
[2023-04-04] MEDS: OSELTAMIVIR PHOSPHATE SUSP 30 MG/5 ML UDP PO SCH ×2 (10:06→21:33)
[2023-04-04] MEDS: ENOXAPARIN INJ 40 MG/0.4 ML SYR SQ SCH (10:06)
[2023-04-04] MEDS: ATORVASTATIN 40 MG TAB PO SCH (10:07)
[2023-04-04] MEDS: CEROVITE ADV FORMULA TAB PO SCH (10:07)
[2023-04-04] MEDS: ASPIRIN 325 MG ECTAB PO SCH (10:07)
[2023-04-04] MEDS: LOSARTAN POTASSIUM 50 MG TAB PO SCH (10:07)
[2023-04-04] MEDS ORDERED: HYDROCORTISONE SOD 50 MG in SYRINGE 0 ML IV ONE (10:30)
[2023-04-04] MEDS: ALBUTEROL HFA 8 GM INHALER INH SCH ×3 (11:32→17:33)
--- NOTE | 2023-04-04 13:05 | Hospitalist Progress Note ---
Date of Service April 04, 2023 Assessment & Plan (1) Influenza A virus subtype H1 2009 pandemic strain present: Plan: 72 M with history of CAD s/p quadruple bypass, DM 1 with associated retinopathy, L BKA, and peripheral neuropathy, who presents to the emergency room with generalized weakness, cough, and myalgia x 2 days. Now admitted to the hospital for acute management of influenza A. Influenza A -Afebrile. -Brief hypoxia on room air which improved after O2 supplementation via NC. Now saturating 98% on room air as of this note. -Already vaccinated for COVID-19 and flu this season. * Oseltamavir 75 mg x 1 then renally dose adjusted to 30 mg bid with pharmacy renal adjustment * Supportive management as needed (benzonatate, guaifenesin, ipratropium) (2) (HFpEF) heart failure with preserved ejection fraction: Plan: Stable -Most recent echocardiogram 2022, EF = 55-60% (moderate concentric LVH, moderate MR, mild-moderate TR, elevated RV systolic pressure). -Follows [facility] [place]. -Continue home regimen as follows: * Bumetanide 4 mg twice daily * Diltiazem 240 mg daily * Losartan 100mg Coronary artery disease -History of quadruple bypass in 2011 (ZURITA to LAD, SVG to OM, SVG to diagonal, SVG to RPDA). -Elevated troponin -High-sensitivity troponin 46.1 on admission without complaint of chest pain/pressure. Mildly elevated in 2022 (23.3, 24.7). -Peaked at 52.7 on repeat troponin. Downtrending 4 hours later (49.0). * Consider demand ischemia due to illness. 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 * Continue adjusted home regimen: 15 units of glargine increased to bid 04/04, mealtime SSI per protocol, atightened ssi 04/04 * ACHS checks per protocol * Pt with end organ damage, retinopaty and CKD4 (4) DDD (degenerative disc disease), lumbar: Plan: Degenerative Disc Disease (lumbar)/Back Pain -S/p lumbar laminectomy in 2011. No chronic pain medications, though reported severe back pain on admission, with tenderness on exam. -S/p Tylenol 1000 mg x 1, lidocaine patch on admission. * Continue Tylenol 1000 mg every 8 hours as needed * Lidocaine patch daily as needed (5) Restless leg syndrome: Plan: * Ropinirole 3 mg nightly * Trazodone 50 mg nightly Plan Vitamin D deficiency * Vitamin D 2000 units daily Code: Full code DVT Prophylaxis: Lovenox 40 mg q24h Admission and Anticipated Discharge Date Admission Date: April 02, 2023 Subjective Patient complains of extreme fatigue myalgias and arthralgias painful ribs with cough, not particularly short of breath currently on room air. Does have his left lower leg prosthesis in the room but not wearing it Patient feels too ill to go home he is and does not have complete support at home Physical Exam Physical Exam: Patient awake alert appropriate. Cardiac exam is regular. Lungs continue coarse rales heard in all lung sterling no focal air loss or wheeze Abdomen NABS soft Results & Data Results & Data Vital Signs (Past 12 Hours) Vital Signs Temp Pulse Resp BP Pulse Ox O2 Del Method 04/04/23 11:33 71 18 95 Room Air 04/04/23 08:40 97.9 F 69 16 146/70 H 92 Room Air Laboratory Results Reviewed CBC Reviewed chemistry PG Care Time/CCT Total # of Minutes Spent Total Time Spent with Patient: Total time spent is greater than 50% in coordination of care (as documented) at patient's floor/unit and/or counseling patient: Coding Level of Care Code 28597 SUB INP/OBS CARE 3/50MIN Diagnoses Influenza A virus subtype H1 2009 pandemic strain present J10.1 Chronic heart failure with preserved ejection fraction I50.32 Heart failure chronicity: chronic 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 (2) (HFpEF) heart failure with preserved ejection fraction Heart failure chronicity: chronic Qualified Code(s): I50.32 - Chronic diastolic (congestive) heart failure
[2023-04-04] MEDS: rOPINIRole HCL 1 MG TABLET PO SCH (20:56)
[2023-04-04] MEDS: LIDOCAINE 5% 1 PATCH TD SCH (20:56)
[2023-04-04] MEDS: LATANOPROST 0.005% OP SOLN 2.5 ML BTL OPB SCH (20:57)
[2023-04-04] MEDS: guaiFENesin 600 MG TABCR PO SCH (20:57)
[2023-04-04] MEDS: traZODone HCL 50 MG TAB PO SCH (21:32)
[2023-04-05] MEDS: ALBUTEROL HFA 8 GM INHALER INH SCH ×4 (06:07→19:36)
[2023-04-05 06:43] LABS: Mean Corpuscular Hemoglobin 30.5 pg (25.0-34.0); Mean Corpuscular Hgb Conc 33.3 g/dL (32.0-36.0); Mean Corpuscular Volume 91.4 fL (80.0-100.0); Platelet Count 133 K/uL (130-400); RDW Coefficient of Variation 13.7 % (11.5-14.5); RDW Standard Deviation 45.9 fL (36.4-46.3); Red Blood Count 3.61 M/uL (4.70-6.10); White Blood Count 3.98 K/ul (4.8-10.8)
[2023-04-05 06:57] LABS: BUN Creatinine Ratio 30.1 (10-20); Calcium 8.3 mg/dl (8.6-10.3); Creatinine Clr Calc Pharmacy 30.6 ml/min; Est GFR (African American) 24.7 ml/min; Est GFR (Non-African American) 21.4 ml/min; Potassium 3.7 mmol/L (3.5-5.1)
[2023-04-05] MEDS: INSULIN ASPART PER UNIT CHARGE SC SCH ×4 (09:01→21:53)
[2023-04-05] MEDS: LANTUS PER UNIT CHARGE SQ SCH (09:02)
[2023-04-05] MEDS: CALCITRIOL 0.25 MCG CAPSULE PO SCH (09:56)
[2023-04-05] MEDS: guaiFENesin 600 MG TABCR PO SCH ×2 (09:56→21:51)
[2023-04-05] MEDS: CHOLECALCIFEROL 1,000 UNITS 25 MCG TAB PO SCH (09:56)
[2023-04-05] MEDS: ASCORBIC ACID 500 MG TAB PO SCH (09:56)
[2023-04-05] MEDS: BUMETANIDE 1 MG TAB PO SCH ×2 (09:56→21:50)
[2023-04-05] MEDS: CEROVITE ADV FORMULA TAB PO SCH (09:56)
[2023-04-05] MEDS: LOSARTAN POTASSIUM 50 MG TAB PO SCH (09:57)
[2023-04-05] MEDS: BRIMONIDINE TARTRATE 0.2% 5ML OPB SCH ×2 (10:01→21:51)
[2023-04-05] MEDS: DORZOLAMIDE HCL 2% OPH SOLN 10 ML BTL OPB SCH ×2 (10:02→21:51)
[2023-04-05] MEDS: dilTIAZem HCL 240 MG CAPCR PO SCH (10:06)
[2023-04-05] MEDS: POTASSIUM CHLORIDE 10 MEQ TABCR PO SCH (10:06)
[2023-04-05] MEDS: ASPIRIN 325 MG ECTAB PO SCH (10:06)
[2023-04-05] MEDS: ENOXAPARIN INJ 40 MG/0.4 ML SYR SQ SCH (10:08)
[2023-04-05] MEDS: ATORVASTATIN 40 MG TAB PO SCH (10:40)
[2023-04-05] MEDS: OSELTAMIVIR PHOSPHATE SUSP 30 MG/5 ML UDP PO SCH ×2 (10:40→21:52)
[2023-04-05] MEDS: TIMOLOL GFS 0.5% OPH SOLN 74 DROPS/5 ML BTL OPB SCH ×2 (10:40→21:51)
--- NOTE | 2023-04-05 16:31 | Hospitalist Progress Note ---
Date of Service April 05, 2023 Assessment & Plan (1) Influenza A virus subtype H1 2009 pandemic strain present: Plan: 72 M with history of CAD s/p quadruple bypass, DM 1 with associated retinopathy, L BKA, and peripheral neuropathy, who presents to the emergency room with generalized weakness, cough, and myalgia x 2 days. Now admitted to the hospital for acute management of influenza A. Influenza A -Afebrile. -Brief hypoxia on room air which improved after O2 supplementation via NC. Now saturating 98% on room air as of this note. -Already vaccinated for COVID-19 and flu this season. * Oseltamavir 75 mg x 1 then renally dose adjusted to 30 mg bid with pharmacy renal adjustment -complete 5-day total course * Supportive management as needed (benzonatate, guaifenesin, ipratropium) Much improved, weakness and fatigue improving should be ready for discharge home independently tomorrow morning (2) (HFpEF) heart failure with preserved ejection fraction: Plan: Stable -Most recent echocardiogram 2022, EF = 55-60% (moderate concentric LVH, moderate MR, mild-moderate TR, elevated RV systolic pressure). -Follows [facility] [place] cardiology. -Continue home regimen as follows: * Bumetanide 4 mg twice daily * Diltiazem 240 mg daily * Losartan 100mg Coronary artery disease -History of quadruple bypass in 2011 (ZURITA to LAD, SVG to OM, SVG to diagonal, SVG to RPDA). -Elevated troponin -High-sensitivity troponin 46.1 on admission without complaint of chest pain/pressure. Mildly elevated in 2022 (23.3, 24.7). -Peaked at 52.7 on repeat troponin. Downtrending 4 hours later (49.0). * demand ischemia due to acute illness. 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 * Continue adjusted home regimen: increased Premeal 04/05. Will give 10 units of glargine tonight and 20 units in the morning to get him back on his home regimen for discharge * ACHS checks per protocol -remains hyperglycemic above goal 04/05 * Pt with end organ damage, retinopaty and CKD4 (4) DDD (degenerative disc disease), lumbar: Plan: Degenerative Disc Disease (lumbar)/Back Pain -S/p lumbar laminectomy in 2011. No chronic pain medications, though reported severe back pain on admission, with tenderness on exam. -S/p Tylenol 1000 mg x 1, lidocaine patch on admission. * Continue Tylenol 1000 mg every 8 hours as needed * Lidocaine patch daily as needed * Resolving (5) Restless leg syndrome: Plan: * Ropinirole 3 mg nightly * Trazodone 50 mg nightly Plan CKD stage IV Creatinine has remained stable Vitamin D deficiency * Vitamin D 2000 units daily Code: Full code DVT Prophylaxis: Lovenox 40 mg q24h Admission and Anticipated Discharge Date Admission Date: April 02, 2023 Subjective Feeling much better today, coughing shortness of breath chest pain substantially resolved, much less fatigue and malaise has stood and walked to the bathroom with assistance today up on the edge of the bed. He is feeling sad over the loss of his in 2020 and relates to me how great the relationship was Physical Exam 2 Physical Exam: PHYSICAL EXAMINATION Last 24h vital signs reviewed, see documentation in flowsheet General: comfortable appearing, no distress, sitting on edge of bed HEENT: Normocephalic, atraumatic, pupils round and equal, sclerae anicteric, no conjunctival injection, moist mucus membranes Lungs: Normal respiratory effort. Clear to auscultation bilaterally except occasional slight coarse sounds posteriorly. No RRW Heart: Regular rate and rhythm, no murmurs. No JVD Abdomen: Soft, nontender, nondistended. Bowel sounds present. Extremities: Warm, dry, well-perfused. No extremity edema. Neuro: Alert and oriented x 4, face symmetric, moves 4 extremities well Psych: Appropriately sad affect during reminiscence and normal behavior Results & Data Results & Data Vital Signs (Past 12 Hours) Vital Signs Temp Pulse Pulse Resp BP Pulse Ox O2 Del Method 04/05/23 15:30 36.5 C 56 L 18 137/63 95 Room Air 04/05/23 15:21 Room Air 04/05/23 14:49 60 16 94 Room Air 04/05/23 10:06 62 04/05/23 07:42 36.6 C 55 L 18 174/71 H 93 Room Air 04/05/23 06:08 55 L 20 94 Room Air Laboratory Results 04/05/23 05:53 04/05/23 05:53 PG Care Time/CCT Total # of Minutes Spent Total Time Spent with Patient: Total time spent is greater than 50% in coordination of care (as documented) at patient's floor/unit and/or counseling patient: Coding Level of Care Code 57832 SUB INP/OBS CARE 2/35MIN Diagnoses Influenza A virus subtype H1 2009 pandemic strain present J10.1 Chronic heart failure with preserved ejection fraction I50.32 Heart failure chronicity: chronic 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 (2) (HFpEF) heart failure with preserved ejection fraction Heart failure chronicity: chronic Qualified Code(s): I50.32 - Chronic diastolic (congestive) heart failure
[2023-04-05] MEDS ORDERED: LANTUS PER UNIT CHARGE SQ SCH (21:00)
[2023-04-05] MEDS: rOPINIRole HCL 1 MG TABLET PO SCH (21:50)
[2023-04-05] MEDS: LATANOPROST 0.005% OP SOLN 2.5 ML BTL OPB SCH (21:51)
[2023-04-05] MEDS: traZODone HCL 50 MG TAB PO SCH (21:51)
[2023-04-05] MEDS: LIDOCAINE 5% 1 PATCH TD SCH (21:52)
[2023-04-06] MEDS: ALBUTEROL HFA 8 GM INHALER INH SCH (05:40)
[2023-04-06 07:35] LABS: Hematocrit (blood only) 33.1 % (42.0-52.0); Hemoglobin 11.4 g/dl (14.0-18.0); Mean Corpuscular Hemoglobin 30.6 pg (25.0-34.0); Mean Corpuscular Hgb Conc 34.4 g/dL (32.0-36.0); Mean Platelet Volume 12.7 fL (9.4-12.4); Platelet Count 143 K/uL (130-400); RDW Coefficient of Variation 13.6 % (11.5-14.5); RDW Standard Deviation 44.2 fL (36.4-46.3); Red Blood Count 3.72 M/uL (4.70-6.10); White Blood Count 4.08 K/ul (4.8-10.8)
[2023-04-06 07:57] LABS: BUN Creatinine Ratio 33.5 (10-20); Calcium 8.7 mg/dl (8.6-10.3); Creatinine Clr Calc Pharmacy 35.8 ml/min; Est GFR (African American) 29.8 ml/min; Est GFR (Non-African American) 25.7 ml/min; Potassium 3.7 mmol/L (3.5-5.1)
[2023-04-06 07:58] VITALS: BP 137/62; RESP 20; TEMP 98.1
[2023-04-06] MEDS: LOSARTAN POTASSIUM 50 MG TAB PO SCH (08:21)
[2023-04-06] MEDS: CEROVITE ADV FORMULA TAB PO SCH (08:21)
[2023-04-06] MEDS: CALCITRIOL 0.25 MCG CAPSULE PO SCH (08:21)
[2023-04-06] MEDS: ASPIRIN 325 MG ECTAB PO SCH (08:21)
[2023-04-06] MEDS: ATORVASTATIN 40 MG TAB PO SCH (08:21)
[2023-04-06] MEDS: ASCORBIC ACID 500 MG TAB PO SCH (08:22)
[2023-04-06] MEDS: BUMETANIDE 1 MG TAB PO SCH (08:22)
[2023-04-06] MEDS: guaiFENesin 600 MG TABCR PO SCH (08:22)
[2023-04-06] MEDS: CHOLECALCIFEROL 1,000 UNITS 25 MCG TAB PO SCH (08:22)
[2023-04-06 08:27] VITALS: PULSE 61
[2023-04-06] MEDS: ENOXAPARIN INJ 40 MG/0.4 ML SYR SQ SCH (08:27)
[2023-04-06] MEDS: dilTIAZem HCL 240 MG CAPCR PO SCH (08:27)
[2023-04-06] MEDS: BRIMONIDINE TARTRATE 0.2% 5ML OPB SCH (08:28)
[2023-04-06] MEDS: TIMOLOL GFS 0.5% OPH SOLN 74 DROPS/5 ML BTL OPB SCH (08:28)
[2023-04-06] MEDS: DORZOLAMIDE HCL 2% OPH SOLN 10 ML BTL OPB SCH (08:28)
[2023-04-06] MEDS: INSULIN ASPART PER UNIT CHARGE SC SCH ×2 (08:35→12:49)
[2023-04-06] MEDS: POTASSIUM CHLORIDE 10 MEQ TABCR PO SCH (08:35)
[2023-04-06] MEDS: OSELTAMIVIR PHOSPHATE SUSP 30 MG/5 ML UDP PO SCH (08:36)
[2023-04-06] MEDS ORDERED: LANTUS PER UNIT CHARGE SQ SCH (09:00)
--- NOTE | 2023-04-06 09:59 | Discharge Summary ---
Date of Service April 06, 2023 Admission HPI Per Admitting Provider [place] is a 72-year-old man with a past medical history of type 1 diabetes, DM1- associated peripheral neuropathy (s/p left BKA), CKD 4, lumbar DDD s/p lumbar laminectomy, multivessel coronary artery disease (s/p CABG x 4 in 2011), TIA, hypertension, GERD, restless leg syndrome, and JEREMIE, who presents to the emergency room after 2 days of generalized weakness, myalgias, and cough. He denies fever,, chills, chest pain, nausea, or vomiting. In the ED, vitals were stable/wnl. O2 saturation dropped to 87% on room air, after which she received oxygen via nasal cannula and improved again to the 90s. Notable labs include: BUN-76, Cr-2.86, glucose-339, hs troponin-46.1 (peak-52.7 on repeat). Respiratory viral panel PCR returned positive for influenza A (H 04/2008). He received an NS bolus x 0.5 L and hospitalist service was consulted for admission. On admission, he reports severe back pain, suprapubic pain, right lower quadrant abdominal pain, and right flank pain. Principal Diagnosis Influenza A Discharge Exam PHYSICAL EXAMINATION Last 24h vital signs reviewed, see documentation in flowsheet General: sitting up on the edge of the bed working with OT HEENT: Normocephalic, atraumatic, pupils round and equal, sclerae anicteric, no conjunctival injection, moist mucus membranes Lungs: Normal respiratory effort. clear bilaterally no rhonchi rales or wheezes Heart: Regular rate and rhythm, no murmurs. Abdomen: Soft, nontender, nondistended. Extremities: Warm, dry, well-perfused. No extremity edema. Neuro: Alert and oriented x 4, face symmetric, moves 4 extremities well. left lower extremity BKA wearing prosthesis Psych: normal affect and normal behavior Discharge Data Allergies Allergy/AdvReac Type Severity Reaction Status Date / Time sulfamethoxazole Allergy Intermediate Rash Verified 03/11/23 11:24 trimethoprim Allergy Intermediate Rash Verified 03/11/23 11:24 Quinolones Allergy Mild Itchiness Verified 03/11/23 11:24 ofloxacin [From Floxin] Allergy itching Verified 03/11/23 11:24 Consultations 04/02/23 19:08 ED Decision to Admit Stat Hospital Course (1) Influenza A virus subtype H1 2009 pandemic strain present: 72 M with history of CAD s/p quadruple bypass, DM 1 with associated retinopathy, L BKA, and peripheral neuropathy, who presents to the emergency room with gen eralized weakness, cough, and myalgia x 2 days. admitted to the hospital for acute management of influenza A. Influenza A -Afebrile. -Brief hypoxia on room air which improved after O2 supplementation via NC. Now saturating 98% on room air -Already vaccinated for COVID-19 and flu this season. * Oseltamivir 5-day course * Supportive management as needed (benzonatate, guaifenesin, ipratropium) Much improved, weakness and fatigue improved a lot the last 48 hours, PT was unable to reevaluate but he did extremely well with OT. He will return home and his son will stay with him for several days (2) (HFpEF) heart failure with preserved ejection fraction: Stable -Most recent echocardiogram 2022, EF = 55-60% (moderate concentric LVH, moderate MR, mild-moderate TR, elevated RV systolic pressure). -Follows [facility] [place] cardiology. -Continue home regimen as follows: * Bumetanide 4 mg twice daily * Diltiazem 240 mg daily * Losartan 100mg Coronary artery disease -History of quadruple bypass in 2011 (ZURITA to LAD, SVG to OM, SVG to diagonal, SVG to RPDA). -Elevated troponin -High-sensitivity troponin 46.1 on admission without complaint of chest pain/pressure. Mildly elevated in 2022 (23.3, 24.7). -Peaked at 52.7 on repeat troponin. Downtrending 4 hours later (49.0). 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 * Pt with end organ damage, retinopathy and CKD4 * resumed home regimen on discharge, continue follow-up with endocrine clinic (4) DDD (degenerative disc disease), lumbar: Degenerative Disc Disease (lumbar)/Back Pain -S/p lumbar laminectomy in 2012. No chronic pain medications, though reported severe back pain on admission, with tenderness on exam. -S/p Tylenol 1000 mg x 1, lidocaine patch on admission. * Continue Tylenol 1000 mg every 8 hours as needed * Lidocaine patch daily as needed * Resolving (5) Restless leg syndrome: * Ropinirole 3 mg nightly * Trazodone 50 mg nightly Plan CKD stage IV Creatinine has remained stable Vitamin D deficiency * Vitamin D 2000 units daily Total Time Total Time Spent Total Time Spent (In Minutes): 25 minutes spent coordinating care for discharge Discharge Plan Discharge Items Patient Disposition: Home - Self-Care Reason For Visit: INFLUENZA A Discharge Diagnosis: Influenza A Condition on Discharge: Good Activity: Resume your previous activity Non-emergency contact: Primary Care Provider Call non-emergency contact if: you have any medication questions, your symptoms worsen and you have a fever Follow-up/Referrals: Leah Wolf DO [Primary Care Provider] - 04/19/23 10:00 am (W/ [facility]) Diet: Carb Consistent or DM2 Addtl Attending Provider Instructions: You were treated for influenza A You were treated with antiviral called oseltamivir (tamiflu) and supportive care. I sent a prescription for the last four doses of oseltamivir Its a good idea to have your son stay with you for a few days until you get your strength up. Pending Studies at Discharge: No Stand-Alone Forms: [facility] Medications and DC Order Prescriptions: New oseltamivir 30 mg capsule 30 mg PO BID 2 Days Qty: 4 0RF Continued (DME) OneTouch Ultra Blue Test Strip Strip See Dose Instructions .ROUTE .MEDSUPPLY Qty: 100 5RF Rx Instructions: use 1 strip to check glucose 4 times daily dx: E10.42, E10.65, E10.319 (DME) FreeStyle Farhad 2 [place] Misc See Rx Instructions .ROUTE .MEDSUPPLY Qty: 1 0RF Rx Instructions: As directed metolazone 5 mg tablet 5 mg PO UD PRN (Reason: weight gain) Qty: 14 6RF Hold Instructions: julian atorvastatin [Lipitor] 80 mg tablet 80 mg PO QAM Qty: 90 1RF losartan 100 mg tablet 100 mg PO QAM Qty: 90 1RF insulin lispro [Humalog KwikPen Insulin] 100 unit/mL insulin pen 25 unit subcut DAILY Qty: 15 5RF Rx Instructions: Inject with meals; TDD 25 units (DME) pen needle, diabetic [BD Ultra-Fine [place] Pen Needle] 32 gauge x 5/32" n eedle See Rx Instructions .Route Qty: 400 3RF Rx Instructions: Inject insulin four times daily Xander NaiduoStar U-300 Insulin 300 unit/mL (1.5 mL) insulin pen 20 unit subcut DAILY Qty: 4.5 2RF ropinirole 1 mg tablet 3 mg PO HS Qty: 270 1RF (DME) lancets [OneTouch UltraSoft Lancets] misc See Dose Instructions .ROUTE .MEDSUPPLY Qty: 50 Rx Instructions: test 4 times dailiy ascorbic acid (vitamin C) 500 mg capsule 500 mg PO QAM (DME) Wheelchair (Powered) Device See Rx Instructions .ROUTE .MEDSUPPLY Qty: 1 0RF Rx Instructions: powered wheelchair as directed (DME) FreeStyle Farhad 2 Sensor Kit See Rx Instructions .ROUTE .MEDSUPPLY Qty: 2 5RF Rx Instructions: As directed. Dx: E10.319, E10.65, E10.42. Testing BS qid bumetanide 2 mg tablet 4 mg PO BID Qty: 120 6RF calcitriol 0.5 mcg capsule 1 mcg PO QAM Qty: 60 4RF diltiazem HCl 240 mg capsule,extended release 24hr 240 mg PO DAILY Qty: 90 3RF albuterol sulfate 90 mcg/actuation HFA aerosol inhaler 2 puff inhalation Q6H PRN (Reason: shortness of breath or wheezing) Qty: 18 3RF latanoprost [Xalatan] 0.005 % Drops 1 drp OPB HS aspirin 325 mg Tablet 325 mg PO QAM cholecalciferol (vitamin D3) [Vitamin D3] 50 mcg (2,000 unit) capsule 2,000 units PO QAM brimonidine 0.2 % drops 1 drp OPB BID timolol maleate 0.5 % gel forming solution 1 drp OPB BID dorzolamide 2 % drops 1 drp OPB BID trazodone 50 mg tablet 50 mg PO HS Billy Mag Zinc Plus D3 333 mg-133 unit -133 mg-5 mg Tablet 1 tab PO QAM potassium gluconate 595 mg (99 mg) tablet 1,785 mg PO QAM Discharge Orders: Discharge Order (Routine); Ordered 04/06/23 Ordered By: Bouchra Betancourt Admission Data Admit Date/Time: 04/02/23 20:52 Attending Provider: Bouchra Betancourt Admit Provider: Lilian Salas Primary Care Provider: Leah Wolf Other Providers: Tad Dumont Other Interventions: Discharge Summary Assessment (RN) Last Done: 04/06/23 13:19 Coding Level of Care Code 37106 IN/OBS DISCH 30 MIN/LESS Diagnoses Influenza A virus subtype H1 2009 pandemic strain present J10.1 Chronic heart failure with preserved ejection fraction I50.32 Heart failure chronicity: chronic 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
[2023-04-06] MEDS ORDERED: ALBUTEROL HFA 8 GM INHALER INH PRN (10:37)
[2023-04-06 11:56] VITALS: O2SAT 92
== END 2023-04-06 13:58 | disposition home or self-care (01) | DRG 194 ==
LOC: ED 15:46 → 2E 20:52 → SUATTDRO 20:52 → 2E 23:26 → 3W 04-03 21:54

== ENCOUNTER 2023-04-14 23:51 | Inpatient (IN) ==
[2023-04-15] MEDS ORDERED: BENZONATATE 100 MG CAPSULE PO ONE (00:06)
[2023-04-15] MEDS ORDERED: SODIUM CHLORIDE 0.9% 1,000 ML IV ONE (00:06)
--- NOTE | 2023-04-15 00:07 | Emergency Department Note ---
Impression & Plan Acute hypoxic respiratory failure, Acute hyperglycemia, Elevated troponin, Acute hyponatremia, CKD (chronic kidney disease) ED Provider Note NAME: PATRICK HAAS AGE: 72 SEX: M : 1950 ARRIVES VIA: Walk-In INFORMANT: Patient ED PROVIDER(S): Wilfred Silva DO CHIEF COMPLAINT: Shortness of breath and cough HPI: Patient is a 72-year-old male who presents ER for cough, congestion and shortness of breath. Patient has a past medical history of CVA, has CHF with a preserved EF, CKD, CABG as well as dyslipidemia and hypertension. Symptoms were present around Mell and he was admitted and he was discharged. He notes that he started back up again and worsened on Wednesday. He notes he has become significantly short of breath. He admits to chest pain only with coughing. Denies any belly pain, nausea, vomiting or diarrhea. No dysuria, urgency, or frequency. No swelling of the legs. No other exacerbating or remitting factors. ADDITIONAL HISTORY OBTAINED: Per HPI Chronic Medical/Social Conditions Affecting Care: Per HPI PAST MEDICAL HISTORY:See Below PAST SURGICAL HISTORY:See Below FAMILY HISTORY:See Below SOCIAL HISTORY:See Below HOME MEDICATIONS:See Below ALLERGIES:See Below VITALS:See Below PHYSICAL EXAMINATION: GENERAL: Sitting up in bed, alert, ill-appearing, disheveled with a persistent cough on 2 L nasal cannula EYE EXAM: normal conjunctiva. PERRL and EOM's grossly intact. OROPHARYNX: mucous membranes are moist NECK: supple, no nuchal rigidity, no adenopathy, non-tender LUNGS: Clear to auscultation. Normal chest wall mechanics HEART: no murmurs, S1 normal and S2 normal ABDOMEN: abdomen soft, non-tender, normo-active bowel sounds, no masses, no rebound or guarding. UPPER EXTREMITIES: upper extremities are grossly normal. LOWER EXTREMITIES: Feet pitting edema in the right lower extremity. NEURO EXAM: Normal sensorium, cranial nerves II-XII grossly intact, normal speech, no gross weakness of arms, no gross weakness of legs. No drift. Finger to nose intact. Gross sensation intact. MEDICAL DECISION MAKING: Patient is a 72-year-old male who presents ER for above-stated complaint with past medical history of COPD. IV was established blood was obtained. He was found to be hypoxic and consequently was placed on 2 L nasal cannula throughout his stay in the ER. Labs show no significant leukocytosis but a mild anemia 10.3. BMP with a creatinine of 2.45 consistent with previous. Glucose significantly elevated at 607. He is placed on insulin drip. Troponin was elevated at nearly 300. Lipase was normal. He denies any chest pain unless he is coughing. Influenza was positive. Chest x-ray with a subtle opacity in the right lower lobe. He was covered with IV antibiotics which include Rocephin and azithromycin. He was given neb treatments and steroids. Updated at bedside. Discussed the case with Dr. Tad Dumont for further evaluation management treatment. Consults/Care Managements Discussions: Per [facility] Triage Nursing notes reviewed. Limited review of prior medical records performed Vital Signs: reviewed and remarkable for HTN and hypoxic Differential diagnosis: Differential diagnoses includes but is not limited to pneumonia, bronchitis, COPD/Asthma exacerbation, pneumothorax, pulmonary embolism, congestive heart failure, acute coronary syndrome ER treatment provided: See below Diagnostics interpreted by me include EKG and cardiac monitoring as listed below: -Cardiac Monitoring: An order was placed for continuous cardiac monitoring. The monitor shows a rate of 78 with sinus rhythm. -ECG: Sinus rhythm rate of 74 First-degree AV block Right bundle branch block ST depressions in the septal and anterior leads ST depressions in the inferior leads QTc 512 No significant change from previous at the end of March -Laboratory studies:Interpreted by me as stated above in MDM and shown below. Imaging studies: Xrays: As interpreted by me: Portable AP upright 1 view of the chest shows subtle infiltrate in the right lateral base CTs show: none Procedures:none Critical Care: I have personally spent 32 minutes of critical care time in the direct management of this patient. This includes bedside care, interpretation of diagnostic studies, and testing, discussion with consultants, patient, and family members, and other required patient management activities. This 32 minutes is in excess of all separately billable procedures. Past Med/Surg History Medical History Slow to wake up after anesthesia Acute kidney failure Anemia of chronic disease Wound of lower extremity Diabetes, type I Chronic kidney disease, stage 4 (severe) Nephrotic syndrome Diabetic nephropathy CAD, multiple vessel Diabetic peripheral 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 Diverticulosis Dyslipidemia Hypertension DDD (degenerative disc disease), lumbar 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 GERD (gastroesophageal reflux disease) Mild obstructive sleep apnea Restless leg syndrome History of TIA (transient ischemic attack) Surgical History S/P arteriovenous (AV) fistula creation History of esophagogastroduodenoscopy (EGD) History of colonoscopy Status post below knee amputation of left lower extremity S/P lumbar laminectomy S/P foot surgery S/P eye surgery S/P CABG x 4 History of lumbar discectomy History of tonsillectomy Family History Father , age 78 with prostate cancer Colorectal cancer Cardiovascular disease Diabetes Prostate cancer Grandmother (Maternal) Diabetes Mother , age 54 of throat cancer Throat cancer Denies family history of Ovarian cancer Myocardial infarction Breast cancer Social History Smoking Status: Never smoker Second Hand Exposure: No; Do You Dip or Chew Tobacco: No; Hx Alcohol Use: No Hx Substance Use: No Preferred Language: Cuban Communication Ability: Effective Visual Impairment: No Limitations Hearing Ability: Normal Price Economist Required: No Beliefs That Will Affect Care: None marital status: / marital status details: lost August 2021 Current Living Situation: Alone current occupational status: retired current occupation: How many Children do You have: 2 other: Retired age 63-1/2. Feels Safe at Home: Yes Childhood Exposure to Second-Hand Smoke: No Diet: regular caffeine: No during the past year weight has: remained stable Dental Care, Regularly: Yes Physical Activity Frequency: Other Physical Activity Frequency Comment: limited d/t disability Seatbelt Use: always Sunscreen Use: Yes Assistive Devices: Scooter/Electric Scooter and Walker Allergies Allergies Allergy/AdvReac Type Severity Reaction Status Date / Time sulfamethoxazole Allergy Intermediate Rash Verified 03/11/23 11:24 trimethoprim Allergy Intermediate Rash Verified 03/11/23 11:24 Quinolones Allergy Mild Itchiness Verified 03/11/23 11:24 ofloxacin [From Floxin] Allergy itching Verified 03/11/23 11:24 Home Meds Home Medications Medication Instructions Recorded Confirmed aspirin 325 mg tablet 325 mg PO QAM 12/27/17 04/15/23 latanoprost 0.005 % eye drops 1 drp OPB HS 12/27/17 04/15/23 (Xalatan) lancets (OneTouch UltraSoft #50 ea 12/12/18 04/08/23 Lancets) cholecalciferol (vitamin D3) 50 2,000 units PO QAM 11/10/19 04/15/23 mcg (2,000 unit) capsule (Vitamin D3) brimonidine 0.2 % eye drops 1 drp OPB BID 12/07/20 04/15/23 dorzolamide 2 % eye drops 1 drp OPB BID 12/07/20 04/15/23 timolol maleate 0.5 % eye gel 1 drp OPB BID 12/07/20 04/15/23 forming solution ascorbic acid (vitamin C) 500 mg 500 mg PO QAM 02/19/21 04/15/23 capsule potassium gluconate 595 mg (99 mg) 1,785 mg PO QAM 06/09/21 04/15/23 tablet trazodone 50 mg tablet 50 mg PO HS 10/12/22 04/15/23 Previous Rx's Medication Instructions Recorded Wheelchair (Powered) #1 ea 11/22/19 blood sugar diagnostic (OneTouch #100 ea 01/31/20 Ultra Blue Test Strip) flash glucose scanning reader #1 ea 12/17/21 (FreeStyle Farhad 2 [place]) metolazone 5 mg tablet 5 mg PO UD PRN weight gain #14 tabs 02/04/22 flash glucose sensor (FreeStyle #2 ea 08/06/22 Farhad 2 Sensor kit) atorvastatin 80 mg tablet (Lipitor) 80 mg PO QAM #90 tabs 12/18/22 losartan 100 mg tablet 100 mg PO QAM #90 tabs 12/23/22 diltiazem HCl 240 mg 240 mg PO DAILY #90 caps 01/21/23 capsule,extended release 24 hr calcitriol 0.5 mcg capsule 1 mcg (2 x 0.5 mcg) PO QAM #60 caps 01/25/23 albuterol sulfate 90 mcg/actuation 2 puff inhalation Q6H PRN 02/10/23 aerosol inhaler shortness of breath or wheezing #18 grams pen needle, diabetic 32 gauge x #400 ea 02/25/23" (BD Ultra-Fine [place] Pen Needle) ropinirole 1 mg tablet 3 mg (3 x 1 mg) PO HS #270 tabs 03/16/23 bumetanide 2 mg tablet 4 mg (2 x 2 mg) PO BID #120 tabs 04/09/23 Results & Data (ED) Vital Signs Vital Signs - 24 hr 04/14/23 23:53 04/15/23 00:02 04/15/23 00:02 Temperature 36.8 C Temperature Source Temporal Artery Scan Pulse Rate 73 Respiratory Rate 20 Respiratory Effort / Characteristics Non-Labored Spontaneous Short of Breath SOB on Exertion Respiratory Depth Normal Normal Respiratory Pattern Regular Regular Blood Pressure 173/76 H Blood Pressure Mean 108 Blood Pressure Position Sitting Pulse Oximetry 89 L 89 L Oxygen Delivery Method Room Air Nasal Cannula Room Air Nasal Cannula Oxygen Flow Rate 2 0 Sepsis Recent Fever Within 48 Hours No Sepsis New/Unexplained Change in Mental Status N/A Sepsis Action Taken by Nursing No Action Required Oxygen Flow Rate - Titration 2 Pulse Oximetry Post Tiitration 95 04/15/23 00:04 Temperature Temperature Source Pulse Rate 73 Respiratory Rate Respiratory Effort / Characteristics Respiratory Depth Respiratory Pattern Blood Pressure Blood Pressure Mean Blood Pressure Position Pulse Oximetry Oxygen Delivery Method Oxygen Flow Rate Sepsis Recent Fever Within 48 Hours Sepsis New/Unexplained Change in Mental Status Sepsis Action Taken by Nursing Oxygen Flow Rate - Titration Pulse Oximetry Post Tiitration Laboratory Data 04/15/23 00:09 04/15/23 00:09 Lab Results 04/15/23 04/15/23 Range/Units 00:09 Unknown WBC 9.98 (4.8-10.8) K/ul RBC 3.37 L (4.70-6.10) M/uL Hgb 10.3 L (14.0-18.0) g/dl Hct 31.4 L (42.0-52.0) % MCV 93.2 (80.0-100.0) fL MCH 30.6 (25.0-34.0) pg MCHC 32.8 (32.0-36.0) g/dL RDW Std Deviation 47.4 H (36.4-46.3) fL RDW Coeff of Jose 14.0 (11.5-14.5) % Plt Count 148 (130-400) K/uL MPV 12.8 H (9.4-12.4) fL Immature Gran % (Auto) 0.5 % Neut % (Auto) 83.1 % Lymph % (Auto) 6.5 % Mclean % (Auto) 8.9 % Eos % (Auto) 0.6 % Baso % (Auto) 0.4 % Neut # (Auto) 8.29 H (1.40-6.50) K/uL Lymph # (Auto) 0.65 L (1.20-3.40) K/uL Mclean # (Auto) 0.89 H (0.11-0.59) K/uL Eos # (Auto) 0.06 (0.00-0.50) K/uL Baso # (Auto) 0.04 (0.00-0.20) K/uL Immature Gran # (Auto) 0.05 (0.01-0.20) K/uL Sodium 129 L (136-145) mmol/L Potassium 4.9 (3.5-5.1) mmol/L Chloride 99 (98-107) mmol/L Carbon Dioxide 22 (21-32) mmol/L Anion Gap 8 (3-11) BUN 62 H (6-23) mg/dl Creatinine 2.45 H (0.6-1.4) mg/dl Est Cr Clr Drug Dosing Not Reportable Est GFR ( Amer) 29.0 ml/min Est GFR (Non-Af Amer) 25.0 ml/min BUN/Creatinine Ratio 25.3 H (10-20) Glucose 607 H* (70-99(Fasting)) mg/dl Calcium 8.4 L (8.6-10.3) mg/dl Total Bilirubin 0.6 (0.2-1.0) mg/dl AST 19 (13-39) U/L ALT 27 (7-52) U/L Alkaline Phosphatase 78 (34-104) U/L Troponin I High Sens 299.5 H* (0-20) pg/ml Total Protein 6.6 (6.0-8.3) gm/dl Albumin 3.6 (3.4-5.0) gm/dl Globulin 3.0 (2.5-4.0) gm/dl Albumin/Globulin Ratio 1.2 (0.9-2) Lipase 81 (11-82) U/L Adenovirus (PCR) Not Detected (NotDetected) B. pertussis DNA (PCR) Not Detected (NotDetected) B.parapertussis DNA PCR Not Detected (NotDetected) C. pneumoniae DNA (PCR) Not Detected (NotDetected) Coronavirus OC43 (PCR) Not Detected (NotDetected) Coronavirus HKU1 (PCR) Not Detected (NotDetected) Coronavirus 229E (PCR) Not Detected (NotDetected) SARS-CoV-2 (PCR) Not Detected (NotDetected) Coronavirus NL63 (PCR) Not Detected (NotDetected) Human Metapneumovir PCR Not Detected (NotDetected) Influenza A Untype (PCR) DETECTED A* (NotDetected) Influenza Type B (PCR) Not Detected (NotDetected) M. pneumoniae (PCR) Not Detected (NotDetected) Parainfluenza 1 (PCR) Not Detected (NotDetected) Parainfluenza 2 (PCR) Not Detected (NotDetected) Parainfluenza 3 (PCR) Not Detected (NotDetected) Parainfluenza 4 (PCR) Not Detected (NotDetected) RSV (PCR) Not Detected (NotDetected) Entero/Rhino (PCR) Not Detected (NotDetected) Administered Medications Insulin Human Regular 250 (units/ Sodium Chloride) 250 mls @ 10 mls/hr IV .Q24H [facility]; Protocol Stop: 05/15/23 01:29 Last Admin: 04/15/23 02:03 Dose: 10 units/hr, 10 mls/hr Documented By: SRIKANTH Co-signed By: YEVGENIY Discontinued Medications Benzonatate (Benzonatate 100 Mg Capsule) 100 mg PO NOW ONE Stop: 04/15/23 00:07 Last Admin: 04/15/23 00:25 Dose: 100 mg Documented By: SRIKANTH Sodium Chloride (Nss) 1,000 mls @ 999 mls/hr IV .Q1H1M ONE Stop: 04/15/23 01:06 Last Infusion: 04/15/23 01:49 Dose: Infused Documented By: Admin: 04/15/23 00:25 Dose: 999 mls/hr Documented By: SRIKANTH Ceftriaxone Sodium (Rocephin) 2,000 mg in 50 mls @ 100 mls/hr IV NOW STA Stop: 04/15/23 01:51 Last Admin: 04/15/23 02:03 Dose: 100 mls/hr Documented By: SRIKANTH Insulin Human Regular (Novolin-R Bolus From Bag) 10 units IV ONE ONE Stop: 04/15/23 02:01 Last Admin: 04/15/23 02:06 Dose: 10 units Documented By: SRIKANTH Co-signed By: YEVGENIY Discharge Plan Visit Data Chief Complaint: Shortness of Breath/Dyspnea ED Provider: Wilfred Silva Discharge Problem: Acute hypoxic respiratory failure, Acute hyperglycemia, Elevated troponin, Acute hyponatremia, CKD (chronic kidney disease) Forms Stand Alone Forms: [facility] [employer] Prescriptions Prescriptions: No Action (DME) OneTouch Ultra Blue Test Strip Strip See Dose Instructions .ROUTE .MEDSUPPLY Qty: 100 5RF Rx Instructions: use 1 strip to check glucose 4 times daily dx: E10.42, E10.65, E10.319 (DME) FreeStyle Farhad 2 [place] Misc See Rx Instructions .ROUTE .MEDSUPPLY Qty: 1 0RF Rx Instructions: As directed metolazone 5 mg tablet 5 mg PO UD PRN (Reason: weight gain) Qty: 14 6RF Hold Instructions: julian atorvastatin [Lipitor] 80 mg tablet 80 mg PO QAM Qty: 90 1RF losartan 100 mg tablet 100 mg PO QAM Qty: 90 1RF (DME) pen needle, diabetic [BD Ultra-Fine [place] Pen Needle] 32 gauge x 5/32" needle See Rx Instructions .Route Qty: 400 3RF Rx Instructions: Inject insulin four times daily ropinirole 1 mg tablet 3 mg PO HS Qty: 270 1RF bumetanide 2 mg tablet 4 mg PO BID Qty: 120 6RF (DME) lancets [OneTouch UltraSoft Lancets] [facility] [place] See Dose Instructions .ROUTE .MEDSUPPLY Qty: 50 Rx Instructions: test 4 times dailiy ascorbic acid (vitamin C) 500 mg capsule 500 mg PO QAM (DME) Wheelchair (Powered) Device See Rx Instructions .ROUTE .MEDSUPPLY Qty: 1 0RF Rx Instructions: powered wheelchair as directed (DME) FreeStyle Farhad 2 Sensor Kit See Rx Instructions .ROUTE .MEDSUPPLY Qty: 2 5RF Rx Instructions: As directed. Dx: E10.319, E10.65, E10.42. Testing BS qid calcitriol 0.5 mcg capsule 1 mcg PO QAM Qty: 60 4RF diltiazem HCl 240 mg capsule,extended release 24hr 240 mg PO DAILY Qty: 90 3RF albuterol sulfate 90 mcg/actuation HFA aerosol inhaler 2 puff inhalation Q6H PRN (Reason: shortness of breath or wheezing) Qty: 18 3RF latanoprost [Xalatan] 0.005 % Drops 1 drp OPB HS aspirin 325 mg Tablet 325 mg PO QAM cholecalciferol (vitamin D3) [Vitamin D3] 50 mcg (2,000 unit) capsule 2,000 units PO QAM brimonidine 0.2 % drops 1 drp OPB BID timolol maleate 0.5 % gel forming solution 1 drp OPB BID dorzolamide 2 % drops 1 drp OPB BID trazodone 50 mg tablet 50 mg PO HS potassium gluconate 595 mg (99 mg) tablet 1,785 mg PO QAM Referrals Referrals: Leah Wolf DO [Primary Care Provider] - Discharge Problem: CKD (chronic kidney disease) Qualifiers: Chronic kidney disease stage: unspecified stage Qualified Code(s): N18.9 - Chronic kidney disease, unspecified
[2023-04-15 00:38] LABS: Basophils # (auto) 0.04 K/uL (0.00-0.20); Basophils % (auto) 0.4 %; Eosinophils # (auto) 0.06 K/uL (0.00-0.50); Eosinophils % (auto) 0.6 %; Hematocrit (blood only) 31.4 % (42.0-52.0); Hemoglobin 10.3 g/dl (14.0-18.0); Immature Granulocytes # (auto) 0.05 K/uL (0.01-0.20); Immature Granulocytes % (auto) 0.5 %; Lymphocytes # (auto) 0.65 K/uL (1.20-3.40); Lymphocytes % (auto) 6.5 %; Mean Corpuscular Hemoglobin 30.6 pg (25.0-34.0); Mean Corpuscular Hgb Conc 32.8 g/dL (32.0-36.0); Mean Corpuscular Volume 93.2 fL (80.0-100.0); Mean Platelet Volume 12.8 fL (9.4-12.4); Monocytes # (auto) 0.89 K/uL (0.11-0.59); Monocytes % (auto) 8.9 %; Neutrophils # (auto) 8.29 K/uL (1.40-6.50); Neutrophils % (auto) 83.1 %; Platelet Count 148 K/uL (130-400); RDW Standard Deviation 47.4 fL (36.4-46.3); Red Blood Count 3.37 M/uL (4.70-6.10); White Blood Count 9.98 K/ul (4.8-10.8)
[2023-04-15 01:12] LABS: Alanine Aminotransferase 27 U/L (7-52); Albumin Globulin Ratio 1.2 (0.9-2); Albumin Level 3.6 gm/dl (3.4-5.0); Alkaline Phosphatase 78 U/L (34-104); Anion Gap 8 (3-11); Aspartate Aminotransferase 19 U/L (13-39); BUN Creatinine Ratio 25.3 (10-20); Bilirubin,Total 0.6 mg/dl (0.2-1.0); Blood Urea Nitrogen 62 mg/dl (6-23); Calcium 8.4 mg/dl (8.6-10.3); Carbon Dioxide 22 mmol/L (21-32); Chloride 99 mmol/L (98-107); Glucose 607 mg/dl (70-99(Fasting)); Lipase 81 U/L (11-82); Potassium 4.9 mmol/L (3.5-5.1); Sodium 129 mmol/L (136-145); Total Protein 6.6 gm/dl (6.0-8.3); Troponin I High Sensitivity 299.5 pg/ml (0-20)
[2023-04-15] MEDS ORDERED: DEXTROSE 50% 50 ML SYRINGE IV PRN (01:17)
[2023-04-15] MEDS ORDERED: GLUCOSE 10 TAB/TUBE PO PRN (01:17)
[2023-04-15] MEDS ORDERED: STAT IV Infusion **Titration per Protocol STA (01:17)
[2023-04-15] MEDS ORDERED: GLUCOSE 40% GEL 15 GM TUBE PO PRN (01:17)
[2023-04-15] MEDS ORDERED: HHS GOAL RANGE 250-350 mg/dl ONE (01:17)
[2023-04-15] MEDS ORDERED: GLUCAGON FOR INJ 1 MG VIAL SQ PRN (01:17)
[2023-04-15] MEDS ORDERED: AZITHROMYCIN 500 MG in DEXTROSE 5% 250 ML IV STA (01:22)
[2023-04-15] MEDS ORDERED: cefTRIAXone SODIUM 2,000 MG/50 ML BAG IV STA (01:22)
[2023-04-15 01:27] LABS: Adenovirus PCR Not Detected (NotDetected); Bordetella parapertussis PCR Not Detected (NotDetected); Bordetella pertussis PCR Not Detected (NotDetected); Chlamydia pneumoniae PCR Not Detected (NotDetected); Coronavirus 229E PCR Not Detected (NotDetected); Coronavirus CoV-2 (COVID19)PCR Not Detected (NotDetected); Coronavirus HKU1 PCR Not Detected (NotDetected); Coronavirus NL63 PCR Not Detected (NotDetected); Coronavirus OC43PCR Not Detected (NotDetected); Human Metapneumovirus PCR Not Detected (NotDetected); Influenza B PCR Not Detected (NotDetected); Mycoplasma pneumoniae PCR Not Detected (NotDetected); Parainfluenza Virus 1 PCR Not Detected (NotDetected); Parainfluenza Virus 2 PCR Not Detected (NotDetected); Parainfluenza Virus 3 PCR Not Detected (NotDetected); Parainfluenza Virus 4 PCR Not Detected (NotDetected); Respiratory Syncytial VirusPCR Not Detected (NotDetected); Rhinovirus/Enterovirus PCR Not Detected (NotDetected)
[2023-04-15] MEDS ORDERED: INSULIN REGULAR 250 UNITS in SODIUM CHLORIDE 0.9% 247.5 ML IV SCH (01:30)
[2023-04-15 01:35] LABS: Influenza A NoSubtype PCR DETECTED (NotDetected)
[2023-04-15] MEDS ORDERED: Patient's HEIGHT &/or WEIGHT Needed STA (01:38)
[2023-04-15] MEDS ORDERED: NovoLIN-R BOLUS FROM BAG IV ONE (02:00)
[2023-04-15] MEDS ORDERED: PHARMACY GLYCEMIC MGMT CONSULT PRN (02:05)
[2023-04-15] MEDS ORDERED: OSELTAMIVIR PHOSPHATE SUSP 30 MG/5 ML UDP PO STA (02:21)
[2023-04-15] MEDS ORDERED: ALBUT/IPRATROP 3MG/0.5MG NEB 3 ML VIAL NEB STA (02:27)
--- NOTE | 2023-04-15 02:28 | History & Physical Report ---
Date of Service April 15, 2023 Assessment & Plan (1) Influenza A: Plan: 72 yo male with PMHx of CAD s/p quadruple bypass, DM1, diabetic retinopathy, L BKA, peripheral neuropathy, HFpEF, CKD, glaucoma, HTN, HLD, and RLS presents with acute illness. #Influenza A -presented with 3 days URI symptoms. Recently discharged after influenza A H1/2009 strain. +seasonal influenza A in ED. No leukocytosis. Afebrile. Hypoxic requiring oxygen supplementation. CXR with possible L consolidation per my read. Cannot r/o superimposed pneumonia. Procal pending. -duonebs, tamiflu, benzonatate -received rocephin x1 and azithromycin in ED. Cont. azithromycin for anti-inflam matory/?atypical pneumonia support. Defer further abx for typical pneumonia to day team, can base off procal and morning labs #Hyperglycemia #DM1 -on admission BSG 600. Anion gap wnl. In setting of acute infection. -received 1L NSS in ED. Cont. with maintenance IVF. -received novolin 10 units and started on insulin gtt in ED. Transition to subq when BSG goal met. -pharmacy glycemic management #Acute hyponatremia -on admission Na 129. Likely hypovolemic hyponatremia. S/p IVF. Recheck am labs. #Elevated troponin -on admission trops 300. EKG with ST depressions in lateral leads. Likely due to demand ischemia. Trend trops. #CAD s/p bypass -cont. asa, statin, losartan #HFpEF -cont. bumetanide, losartan -monitor I/Os, daily weights #CKD, stage 4 -on admission Cr 2.45. Baseline ~2.2-2.5. Stable. -cont. bumetanide #Glaucoma #Diabetic Retinopathy -cont. brimonidine, dorzolamide, latanoprost, timolol #Insomnia -cont. trazodone #RLS -cont. ropinirole #HTN -cont. 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 Patient was recently discharged from [facility] following influenza A subtype H 04/2008 strain. 3 days ago he developed a dry cough, shortness of breath, headache, fatigue, mild abdominal pain, nausea. Does endorse some intermittent chest pain when he coughs. Symptoms ongoing. Denies fever, chills, vomiting, diarrhea, dysuria. He has been compliant with his home medications. Allergies Allergy/AdvReac Type Severity Reaction Status Date / Time sulfamethoxazole Allergy Intermediate Rash Verified 03/11/23 11:24 trimethoprim Allergy Intermediate Rash Verified 03/11/23 11:24 Quinolones Allergy Mild Itchiness Verified 03/11/23 11:24 ofloxacin [From Floxin] Allergy itching Verified 03/11/23 11:24 Home Medications Medication Instructions Recorded Confirmed Type aspirin 325 mg tablet 325 mg PO QAM 12/27/17 04/15/23 History latanoprost 0.005 % eye drops 1 drp OPB HS 12/27/17 04/15/23 History (Xalatan) lancets (OneTouch UltraSoft #50 ea 12/12/18 04/08/23 History Lancets) cholecalciferol (vitamin D3) 50 2,000 units PO QAM 11/10/19 04/15/23 History mcg (2,000 unit) capsule (Vitamin D3) Wheelchair (Powered) #1 ea 11/22/19 04/08/23 Rx blood sugar diagnostic (NovoPedicsTouch #100 ea 01/31/20 04/08/23 Rx Ultra Blue Test Strip) brimonidine 0.2 % eye drops 1 drp OPB BID 12/07/20 04/15/23 History dorzolamide 2 % eye drops 1 drp OPB BID 12/07/20 04/15/23 History timolol maleate 0.5 % eye gel 1 drp OPB BID 12/07/20 04/15/23 History forming solution ascorbic acid (vitamin C) 500 mg 500 mg PO QAM 02/19/21 04/15/23 History capsule potassium gluconate 595 mg (99 mg) 1,785 mg PO QAM 06/09/21 04/15/23 History tablet flash glucose scanning reader #1 ea 12/17/21 04/08/23 Rx (FreeStyle Farhad 2 [place]) metolazone 5 mg tablet 5 mg PO UD PRN weight gain #14 tabs 02/04/22 04/15/23 Rx flash glucose sensor (FreeStyle #2 ea 08/06/22 04/08/23 Rx Farhad 2 Sensor kit) trazodone 50 mg tablet 50 mg PO HS 10/12/22 04/15/23 History atorvastatin 80 mg tablet (Lipitor) 80 mg PO QAM #90 tabs 12/18/22 04/15/23 Rx losartan 100 mg tablet 100 mg PO QAM #90 tabs 12/23/22 04/15/23 Rx diltiazem HCl 240 mg 240 mg PO DAILY #90 caps 01/21/23 04/15/23 Rx capsule,extended release 24 hr calcitriol 0.5 mcg capsule 1 mcg (2 x 0.5 mcg) PO QAM #60 caps 01/25/23 04/15/23 Rx albuterol sulfate 90 mcg/actuation 2 puff inhalation Q6H PRN 02/10/23 04/15/23 Rx aerosol inhaler shortness of breath or wheezing #18 grams pen needle, diabetic 32 gauge x #400 ea 02/25/23 04/08/23 Rx 5/32" (BD Ultra-Fine [place] Pen Needle) ropinirole 1 mg tablet 3 mg (3 x 1 mg) PO HS #270 tabs 03/16/23 04/15/23 Rx bumetanide 2 mg tablet 4 mg (2 x 2 mg) PO BID #120 tabs 04/09/23 04/15/23 Rx Past Med/Surg History Medical History Slow to wake up after anesthesia Acute kidney failure Anemia of chronic disease Wound of lower extremity Diabetes, type I Chronic kidney disease, stage 4 (severe) Nephrotic syndrome Diabetic nephropathy CAD, multiple vessel Diabetic peripheral 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 Diverticulosis Dyslipidemia Hypertension DDD (degenerative disc disease), lumbar 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 GERD (gastroesophageal reflux disease) Mild obstructive sleep apnea Restless leg syndrome History of TIA (transient ischemic attack) Surgical History S/P arteriovenous (AV) fistula creation History of esophagogastroduodenoscopy (EGD) History of colonoscopy Status post below knee amputation of left lower extremity S/P lumbar laminectomy S/P foot surgery S/P eye surgery S/P CABG x 4 History of lumbar discectomy History of tonsillectomy Family History Father , age 78 with prostate cancer Colorectal cancer Cardiovascular disease Diabetes Prostate cancer Grandmother (Maternal) Diabetes Mother , age 54 of throat cancer Throat cancer Denies family history of Ovarian cancer Myocardial infarction Breast cancer Social History Smoking Status: Never smoker Second Hand Exposure: No; Do You Dip or Chew Tobacco: No; Hx Alcohol Use: No Hx Substance Use: No Preferred Language: Indian Communication Ability: Effective Visual Impairment: No Limitations Hearing Ability: Normal 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 Feels Safe at Home: Yes Childhood Exposure to Second-Hand Smoke: No Diet: regular caffeine: No during the past year weight has: remained stable Dental Care, Regularly: Yes Physical Activity Frequency: Other Physical Activity Frequency Comment: limited d/t disability Seatbelt Use: always Sunscreen Use: Yes Assistive Devices: Scooter/Electric Scooter and Walker Review of Systems Review of Systems: All systems reviewed & are unremarkable except as noted in HPI & below Physical Exam Physical Exam: Constitutional: in no acute distress, pleasant and normal affect, intact memory. AOx3. Vitals as above. HEENT: No scleral injection or discharge.Dry mucous membranes. Neck: Supple without lymphadenopathy. Trachea midline. Lungs: Faint diffuse wheezing. No rales/rhonchi. Good air flow. Cardiac: Regular rate and rhythm.No murmurs. 2+ distal peripheral pulses. +nonpitting edema R lower extremity without tenderness. Abdomen: Bowel sounds present. Soft and nontender. Distended.No guarding. MSK: No cyanosis or clubbing. +BKA on left. Skin: No abnormal rashes, warm, dry. Neurologic: no focal deficits Results & Data Results & Data Vital Signs (Past 12 Hours) Vital Signs Temp Pulse Resp BP Pulse Ox O2 Del Method O2 Flow Rate 04/15/23 00:04 73 04/15/23 00:02 89 L Room Air, Nasal Cannula 0 04/15/23 00:02 Nasal Cannula 2 04/14/23 23:53 36.8 C 73 20 173/76 H 89 L Room Air Laboratory Results Laboratory Results WBC 9.98 K/ul (4.8-10.8) 04/15/23 00:09 RBC 3.37 M/uL (4.70-6.10) L 04/15/23 00:09 Hgb 10.3 g/dl (14.0-18.0) L 04/15/23 00:09 Hct 31.4 % (42.0-52.0) L 04/15/23 00:09 MCV 93.2 fL (80.0-100.0) 04/15/23 00:09 MCH 30.6 pg (25.0-34.0) 04/15/23 00:09 MCHC 32.8 g/dL (32.0-36.0) 04/15/23 00:09 RDW Std Deviation 47.4 fL (36.4-46.3) H 04/15/23 00:09 RDW Coeff of Jose 14.0 % (11.5-14.5) 04/15/23 00:09 Plt Count 148 K/uL (130-400) 04/15/23 00:09 MPV 12.8 fL (9.4-12.4) H 04/15/23 00:09 Immature Gran % (Auto) 0.5 % 04/15/23 00:09 Neut % (Auto) 83.1 % 04/15/23 00:09 Lymph % (Auto) 6.5 % 04/15/23 00:09 [place] % (Auto) 8.9 % 04/15/23 00:09 Eos % (Auto) 0.6 % 04/15/23 00:09 Baso % (Auto) 0.4 % 04/15/23 00:09 Neut # (Auto) 8.29 K/uL (1.40-6.50) H 04/15/23 00:09 Lymph # (Auto) 0.65 K/uL (1.20-3.40) L 04/15/23 00:09 [place] # (Auto) 0.89 K/uL (0.11-0.59) H 04/15/23 00:09 Eos # (Auto) 0.06 K/uL (0.00-0.50) 04/15/23 00:09 Baso # (Auto) 0.04 K/uL (0.00-0.20) 04/15/23 00:09 Immature Gran # (Auto) 0.05 K/uL (0.01-0.20) 04/15/23 00:09 Sodium 129 mmol/L (136-145) L 04/15/23 00:09 Potassium 4.9 mmol/L (3.5-5.1) 04/15/23 00:09 Chloride 99 mmol/L (98-107) 04/15/23 00:09 Carbon Dioxide 22 mmol/L (21-32) 04/15/23 00:09 Anion Gap 8 (3-11) 04/15/23 00:09 BUN 62 mg/dl (6-23) H 04/15/23 00:09 Creatinine 2.45 mg/dl (0.6-1.4) H 04/15/23 00:09 Est Cr Clr Drug Dosing Not Reportable 04/15/23 00:09 Est GFR ( Amer) 29.0 ml/min 04/15/23 00:09 Est GFR (Non-Af Amer) 25.0 ml/min 04/15/23 00:09 BUN/Creatinine Ratio 25.3 (10-20) H 04/15/23 00:09 Glucose 607 mg/dl (70-99(Fasting)) H* 04/15/23 00:09 POC Glucose 548 mg/dl (70-99) H* 04/15/23 02:06 Calcium 8.4 mg/dl (8.6-10.3) L 04/15/23 00:09 Total Bilirubin 0.6 mg/dl (0.2-1.0) 04/15/23 00:09 AST 19 U/L (13-39) 04/15/23 00:09 ALT 27 U/L (7-52) 04/15/23 00:09 Alkaline Phosphatase 78 U/L (34-104) 04/15/23 00:09 Troponin I High Sens 299.5 pg/ml (0-20) H* 04/15/23 00:09 Total Protein 6.6 gm/dl (6.0-8.3) 04/15/23 00:09 Albumin 3.6 gm/dl (3.4-5.0) 04/15/23 00:09 Globulin 3.0 gm/dl (2.5-4.0) 04/15/23 00:09 Albumin/Globulin Ratio 1.2 (0.9-2) 04/15/23 00:09 Lipase 81 U/L (11-82) 04/15/23 00:09 Adenovirus (PCR) Not Detected (NotDetected) 04/15/23 Unknown B. pertussis DNA (PCR) Not Detected (NotDetected) 04/15/23 Unknown B.parapertussis DNA PCR Not Detected (NotDetected) 04/15/23 Unknown C. pneumoniae DNA (PCR) Not Detected (NotDetected) 04/15/23 Unknown Coronavirus OC43 (PCR) Not Detected (NotDetected) 04/15/23 Unknown Coronavirus HKU1 (PCR) Not Detected (NotDetected) 04/15/23 Unknown Coronavirus 229E (PCR) Not Detected (NotDetected) 04/15/23 Unknown SARS-CoV-2 (PCR) Not Detected (NotDetected) 04/15/23 Unknown Coronavirus NL63 (PCR) Not Detected (NotDetected) 04/15/23 Unknown Human Metapneumovir PCR Not Detected (NotDetected) 04/15/23 Unknown Influenza A Untype (PCR) DETECTED (NotDetected) A* 04/15/23 Unknown Influenza Type B (PCR) Not Detected (NotDetected) 04/15/23 Unknown M. pneumoniae (PCR) Not Detected (NotDetected) 04/15/23 Unknown Parainfluenza 1 (PCR) Not Detected (NotDetected) 04/15/23 Unknown Parainfluenza 2 (PCR) Not Detected (NotDetected) 04/15/23 Unknown Parainfluenza 3 (PCR) Not Detected (NotDetected) 04/15/23 Unknown Parainfluenza 4 (PCR) Not Detected (NotDetected) 04/15/23 Unknown RSV (PCR) Not Detected (NotDetected) 04/15/23 Unknown Entero/Rhino (PCR) Not Detected (NotDetected) 04/15/23 Unknown Code Status & VTE Plan VTE Prophylaxis Plan VTE Prophylaxis will be ordered: Yes Supervising Physician Co-Signing Physician Notes Attending addendum: I have physically seen this patient, have supervised the medical residents activities, and agree with the H&P unless as otherwise noted. Assessment and Plan: Influenza A/left lower lobe infiltrate- Recently admitted from 04/02-04/06/2023 for H1N1 2009, which he recovered from, and then 3 days ago developed recurrent URI symptoms. Today tests positive for influenza A virus Tamiflu 75 mg p.o. twice daily Duonebs every 4 hours while awake and every 2 hours when necessary. Tessalon Perles 100 mg p.o. 3 times daily Given ceftriaxone 2 g IV and azithromycin 500 mg IV in ED Continue azithromycin 500 mg IV daily Guaifenesin extended release 1200 mg p.o. twice daily Hyperglycemia in diabetes mellitus- BSG 607 with normal anion gap Status post 1 L normal saline from the ED Started on insulin drip in the ED. Will continue since it has been started, but has normal anion gap, and should reach his normal glucose range fairly quickly Elevated troponin/hypertension/HFpEF/CAD/status post CABG- The patient will be admitted to telemetry for serial cardiac enzymes, serial EKG's, cardiac rhythm monitoring Continue diltiazem, losartan, bumetanide and aspirin Troponin 299.5 in part due to CKD Resident Activity Tracking Resident Involvement: Resident Care Provided Care Provided: Adult [facility] (2) CKD (chronic kidney disease) Chronic kidney disease stage: unspecified stage Qualified Code(s): N18.9 - Chronic kidney disease, unspecified (7) (HFpEF) heart failure with preserved ejection fraction Heart failure chronicity: chronic Qualified Code(s): I50.32 - Chronic diastolic (congestive) heart failure (9) Glaucoma Glaucoma type: associated with underlying disease Laterality: unspecified laterality Qualified Code(s): H42 - Glaucoma in diseases classified elsewhere (11) Hypertension Hypertension type: primary hypertension Qualified Code(s): I10 - Essential (primary) hypertension
[2023-04-15] MEDS ORDERED: ONDANSETRON 4 MG OD TAB PO PRN (04:43)
[2023-04-15] MEDS ORDERED: POLYETHYLENE (MIRALAX) 17 GM PACK PO PRN (04:43)
[2023-04-15] MEDS ORDERED: ACETAMINOPHEN 325 MG TAB PO PRN (04:43)
[2023-04-15 05:10] LABS: Basophils # (auto) 0.03 K/uL (0.00-0.20); Basophils % (auto) 0.3 %; Eosinophils % (auto) 1.1 %; Hematocrit (blood only) 30.9 % (42.0-52.0); Hemoglobin 10.1 g/dl (14.0-18.0); Immature Granulocytes # (auto) 0.04 K/uL (0.01-0.20); Immature Granulocytes % (auto) 0.5 %; Mean Corpuscular Hemoglobin 30.2 pg (25.0-34.0); Mean Corpuscular Hgb Conc 32.7 g/dL (32.0-36.0); Mean Corpuscular Volume 92.5 fL (80.0-100.0); Mean Platelet Volume 12.6 fL (9.4-12.4); Monocytes # (auto) 0.81 K/uL (0.11-0.59); Monocytes % (auto) 9.2 %; Neutrophils # (auto) 7.07 K/uL (1.40-6.50); Neutrophils % (auto) 79.9 %; Platelet Count 147 K/uL (130-400); RDW Coefficient of Variation 13.7 % (11.5-14.5); RDW Standard Deviation 46.1 fL (36.4-46.3); Red Blood Count 3.34 M/uL (4.70-6.10); White Blood Count 8.85 K/ul (4.8-10.8)
[2023-04-15] MEDS: SODIUM CHLORIDE 0.9% 1,000 ML IV SCH ×2 (05:35→14:03)
--- NOTE | 2023-04-15 05:36 | Billing Data ---
Date of Service April 15, 2023 Coding Level of Care Code 72015 INT INP/OBS CARE
[2023-04-15 05:56] LABS: BUN Creatinine Ratio 25.3 (10-20); Calcium 8.3 mg/dl (8.6-10.3); Creatinine Clr Calc Pharmacy 32.9 ml/min; Magnesium 2.3 mg/dl (1.7-2.4); Potassium 4.1 mmol/L (3.5-5.1)
[2023-04-15] MEDS ORDERED: INSULIN ASPART PER UNIT CHARGE SC SCH ×2 (06:00→16:30)
[2023-04-15] MEDS: ALBUT/IPRATROP 3MG/0.5MG NEB 3 ML VIAL NEB SCH ×4 (07:04→20:40)
--- NOTE | 2023-04-15 07:13 | XRay Report ---
SINGLE VIEW CHEST CLINICAL HISTORY: Atypical chest pain. FINDINGS: 2 AP, portable, upright chest radiographs are compared to study dated 04/02/2023. The exami nation is degraded by portable technique and apical lordotic positioning. The patient is status post midline sternotomy. The heart is enlarged. There is mild pulmonary vascular congestion. Scarring/atel ectasis is noted at both lung bases. No airspace consolidation or large pleural effusion is identifie d. No pneumothorax is seen. The skeletal structures are osteopenic. The bony thorax is grossly intact . IMPRESSION: Cardiomegaly with pulmonary vascular congestion. ACT 112: Negative or not required by law. Electronically signed by: Vishal Ibanez M.D. 04/15/2023 7:11 AM
[2023-04-15] MEDS: BRIMONIDINE TARTRATE 0.2% 5ML OPB SCH ×2 (08:30→22:24)
[2023-04-15] MEDS: LOSARTAN POTASSIUM 50 MG TAB PO SCH (08:33)
[2023-04-15] MEDS: dilTIAZem HCL 240 MG CAPCR PO SCH (08:34)
[2023-04-15] MEDS: ASPIRIN 325 MG ECTAB PO SCH (08:34)
[2023-04-15] MEDS: ATORVASTATIN 40 MG TAB PO SCH (08:34)
[2023-04-15] MEDS: HEPARIN SOD 5,000 UNIT/0.5 ML VIAL SQ SCH ×2 (08:39→21:51)
[2023-04-15] MEDS: DORZOLAMIDE HCL 2% OPH SOLN 10 ML BTL OPB SCH ×2 (08:42→22:24)
[2023-04-15] MEDS: TIMOLOL GFS 0.5% OPH SOLN 74 DROPS/5 ML BTL OP SCH ×2 (08:43→22:24)
[2023-04-15] MEDS ORDERED: BUMETANIDE 1 MG TAB PO SCH (09:00)
--- NOTE | 2023-04-15 09:28 | Hospitalist Progress Note ---
Date of Service April 15, 2023 Assessment & Plan (1) Influenza A: Plan: 72 yo male with PMHx of CAD s/p quadruple bypass, DM1, diabetic retinopathy, L BKA, peripheral neuropathy, HFpEF, CKD, glaucoma, HTN, HLD, and RLS presents with acute illness. Acute respirtory failure with hypoxia, flet secondary to flu, could be pneumonitis and also HFpEF, will give iv bumex in pm 04/15/23 consider steroids if not improving Influenza A -presented with 3 days URI symptoms. Recently discharged after influenza A H1/2009 strain. +seasonal influenza A in ED. No leukocytosis. Afebrile. Hypoxic requiring oxygen supplementation. -duonebs, tamiflu, benzonatate -received rocephin x1 and azithromycin in ED. Cont. azithromycin for anti- inflammatory/?atypical pneumonia support. (2) CKD (chronic kidney disease): Plan: CKD, stage 4 -on admission Cr 2.45. Baseline ~2.2-2.5. Stable. -cont. bumetanide (3) Acute hyponatremia: Plan: now improved hypovolemic hyponatremia. S/p IVF. (4) Elevated troponin: Plan: Elevated troponin -on admission trops 300. EKG with ST depressions in lateral leads. Likely due to demand ischemia. Pending Echo HFpEF -cont. bumetanide, losartan has chronic lower extremity edema History of CAD s/p bypass -cont. 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 Anion gap wnl. In setting of acute infection. -received 1L NSS in ED. Cont. with maintenance IVF. -received novolin 10 units and started on insulin gtt in ED. Transition to subq when BSG goal met. -pharmacy glycemic management (6) Restless leg syndrome: Plan DVT ppx: heparin SQ FEN/GI: NPO until transitioned to subq insulin Code Status: full Admission and Anticipated Discharge Date Admission Date: April 15, 2023 Subjective pt remains very short of breath, has puffy hands, improved with nebulizers returns with recurrent flu A Physical Exam Physical Exam: lungs have coarse rhonchi bilaterally in all lung sterling cardiac exam is regular without sig murmur but hard to hear with oxygen and nebs Results & Data Results & Data Vital Signs (Past 12 Hours) Vital Signs Temp Pulse Pulse Resp BP BP Pulse Ox 04/15/23 08:30 69 21 164/82 H 96 04/15/23 08:21 74 04/15/23 07:04 74 18 95 04/15/23 06:10 86 24 91 04/15/23 06:00 78 23 95 04/15/23 06:00 169/90 H 04/15/23 05:50 70 24 94 04/15/23 05:40 68 23 96 04/15/23 05:31 184/67 H 04/15/23 05:31 70 26 H 97 04/15/23 05:30 70 24 92 04/15/23 05:25 68 04/15/23 05:23 178/83 H 04/15/23 05:23 67 18 94 04/15/23 05:20 69 25 H 89 L 04/15/23 05:10 66 21 92 04/15/23 05:00 68 22 93 04/15/23 04:50 68 19 89 L 04/15/23 04:40 69 26 H 92 04/15/23 04:30 70 16 92 04/15/23 04:22 87 L 04/15/23 04:12 97 04/15/23 04:00 94 04/15/23 03:50 89 L 04/15/23 03:40 75 19 91 04/15/23 03:30 69 22 96 04/15/23 03:20 73 29 H 96 04/15/23 03:10 70 25 H 100 04/15/23 03:07 163/88 H 04/15/23 03:07 71 17 100 04/15/23 03:00 72 22 91 04/15/23 03:00 70 18 163/88 H 98 04/15/23 02:50 76 21 93 04/15/23 02:40 72 24 93 04/15/23 02:30 75 25 H 94 04/15/23 02:20 72 17 04/15/23 02:10 75 25 H 04/15/23 02:00 78 26 H 04/15/23 01:50 77 24 95 04/15/23 01:40 78 18 97 04/15/23 01:30 78 22 93 04/15/23 01:20 76 30 H 94 04/15/23 01:10 73 19 96 04/15/23 01:03 72 04/15/23 00:50 73 21 04/15/23 00:40 75 20 04/15/23 00:30 71 24 95 04/15/23 00:27 174/86 H 04/15/23 00:27 73 28 H 96 04/15/23 00:20 72 27 H 95 04/15/23 00:10 75 27 H 04/15/23 00:05 74 21 97 04/15/23 00:04 73 04/15/23 00:02 89 L 04/15/23 00:02 04/14/23 23:53 98.2 F 73 20 173/76 H 89 L O2 Del Method O2 Flow Rate 04/15/23 08:30 Nasal Cannula 2 04/15/23 08:21 04/15/23 07:04 Nasal Cannula 2 04/15/23 06:10 04/15/23 06:00 04/15/23 06:00 04/15/23 05:50 04/15/23 05:40 04/15/23 05:31 04/15/23 05:31 04/15/23 05:30 04/15/23 05:25 04/15/23 05:23 04/15/23 05:23 04/15/23 05:20 04/15/23 05:10 04/15/23 05:00 04/15/23 04:50 04/15/23 04:40 04/15/23 04:30 04/15/23 04:22 04/15/23 04:12 04/15/23 04:00 04/15/23 03:50 04/15/23 03:40 04/15/23 03:30 04/15/23 03:20 04/15/23 03:10 04/15/23 03:07 04/15/23 03:07 04/15/23 03:00 04/15/23 03:00 Nasal Cannula 2 04/15/23 02:50 04/15/23 02:40 04/15/23 02:30 04/15/23 02:20 04/15/23 02:10 04/15/23 02:00 04/15/23 01:50 04/15/23 01:40 04/15/23 01:30 04/15/23 01:20 04/15/23 01:10 04/15/23 01:03 04/15/23 00:50 04/15/23 00:40 04/15/23 00:30 04/15/23 00:27 04/15/23 00:27 04/15/23 00:20 04/15/23 00:10 04/15/23 00:05 04/15/23 00:04 04/15/23 00:02 Room Air, Nasal Cannula 0 04/15/23 00:02 Nasal Cannula 2 04/14/23 23:53 Room Air Laboratory Results review cbc review chemistry PG Care Time/CCT Total # of Minutes Spent Total Time Spent with Patient: Total time spent is greater than 50% in coordination of care (as documented) at patient's floor/unit and/or counseling patient: Coding Level of Care Code 03704 SUB INP/OBS CARE 3/50MIN Diagnoses Influenza A J10.1 CKD (chronic kidney disease) N18.9 Chronic kidney disease stage: unspecified stage Acute hyponatremia E87.1 Elevated troponin R79.89 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
[2023-04-15] MEDS ORDERED: LANTUS PER UNIT CHARGE SC SCH (10:00)
[2023-04-15] MEDS: OSELTAMIVIR PHOSPHATE SUSP 30 MG/5 ML UDP PO SCH ×2 (12:10→22:23)
[2023-04-15] MEDS: INSULIN ASPART PER UNIT CHARGE SC SCH ×3 (12:10→21:51)
--- NOTE | 2023-04-15 14:21 | Electrocardiogram Report ---
Test Reason : Blood Pressure : / mmHG Vent. Rate : 074 BPM Atrial Rate : 074 BPM P-R Int : 246 ms QRS Dur : 140 ms QT Int : 462 ms P-R-T Axes : 012 039 019 degrees QTc Int : 512 ms Sinus rhythm with 1st degree A-V block Right bundle branch block T wave abnormality, consider lateral ischemia Abnormal ECG When compared with ECG of 02-APR-2023 16:34, Premature atrial complexes are no longer Present Questionable change in initial forces of Anteroseptal leads Confirmed by Yony Mcgrath ([id number]) on 04/15/2023 2:20:55 PM Referred By: REFERRED SELF Confirmed By:Yony Mcgrath
--- NOTE | 2023-04-15 14:25 | Pharmacy Report ---
Pharmacy Glycemic Short Note 2 - Date of Service April 15, 2023 - Glycemic Short BSG Results (Last 24 hours): 04/15/23 04/15/23 04/15/23 00:09 02:06 03:01 Glucose 607 H* POC Glucose 548 H* 429 H* 04/15/23 04/15/23 04/15/23 04:01 04:53 05:01 Glucose 345 H* POC Glucose 396 H* 342 H* 04/15/23 04/15/23 04/15/23 06:00 06:47 07:57 Glucose POC Glucose 249 H 230 H 202 H 04/15/23 04/15/23 04/15/23 09:28 10:18 11:22 Glucose POC Glucose 154 H 161 H 231 H 04/15/23 04/15/23 13:07 14:02 Glucose POC Glucose 281 H 259 H OUTPATIENT ANTIDIABETIC REGIMEN: * Humalog TIDM TDD = 25 units * Toujeo 20 units SQ daily HbA1c= 9.1% on 03/31/23 ASSESSMENT: * 72 y/o M admitted for Influenza. Patient has history of Type 1 diabetes managed on basal and bolus insulins at home. * He was admitted with high blood sugars last night. Insulin drip initiated. * Anion gap normal. SQ basal and bolus started this morning. Insulin drip is now discontinued. * Pre-lunch BSG today was 231 mg/dl. Novolog parameters started between stress of 2 and 3. * Expect BSGs to trend down this evening. PLAN FOR INPATIENT GLYCEMIC CONTROL: * Basal insulin * Lantus 20 units SQ QAM * Bolus insulin * NovoLog per scale ACHS or Q6hrs while NPO * Goal Range: Low 110 mg/dL - High 140 mg/dL * Correction Factor: 15 mg/dL/unit * Nutritional / Prandial insulin per carb ratio of 1 unit per 7 grams CHO consumed
[2023-04-15] MEDS ORDERED: COUGH DROP (SUGAR FREE) LOZ 24 LOZ/1 BOX BUCCAL ONE (15:30)
[2023-04-15] MEDS ORDERED: SODIUM CHLORIDE 0.65% NA SOLN 45 ML (OCEAN) ONE (15:30)
[2023-04-15] MEDS: BENZONATATE 100 MG CAPSULE PO PRN ×2 (15:45→21:50)
[2023-04-15] MEDS ORDERED: FUROSEMIDE 40 MG/4 ML VIAL IV ONE (16:14)
[2023-04-15] MEDS ORDERED: BUMETANIDE 4 MG in SYRINGE 0 ML IV ONE (16:30)
[2023-04-15] MEDS: rOPINIRole HCL 1 MG TABLET PO SCH (21:50)
[2023-04-15] MEDS: traZODone HCL 50 MG TAB PO SCH (21:51)
[2023-04-15] MEDS: AZITHROMYCIN 250 MG TAB PO SCH (22:23)
[2023-04-15] MEDS: LATANOPROST 0.005% OP SOLN 2.5 ML BTL OPB SCH (22:24)
[2023-04-16] MEDS: INSULIN ASPART PER UNIT CHARGE SC SCH ×6 (01:21→21:41)
[2023-04-16] MEDS: ALBUT/IPRATROP 3MG/0.5MG NEB 3 ML VIAL NEB SCH (07:17)
[2023-04-16] MEDS: OSELTAMIVIR PHOSPHATE SUSP 30 MG/5 ML UDP PO SCH ×2 (08:10→21:38)
[2023-04-16] MEDS: LANTUS PER UNIT CHARGE SC SCH (08:10)
[2023-04-16] MEDS: BUMETANIDE 1 MG TAB PO SCH ×2 (08:11→16:38)
[2023-04-16] MEDS: ASPIRIN 325 MG ECTAB PO SCH (08:11)
[2023-04-16] MEDS: ATORVASTATIN 40 MG TAB PO SCH (08:11)
[2023-04-16] MEDS: HEPARIN SOD 5,000 UNIT/0.5 ML VIAL SQ SCH ×2 (08:11→21:41)
[2023-04-16] MEDS: dilTIAZem HCL 240 MG CAPCR PO SCH (08:11)
[2023-04-16] MEDS: LOSARTAN POTASSIUM 50 MG TAB PO SCH (08:11)
[2023-04-16] MEDS: BRIMONIDINE TARTRATE 0.2% 5ML OPB SCH ×2 (08:12→21:33)
[2023-04-16] MEDS: DORZOLAMIDE HCL 2% OPH SOLN 10 ML BTL OPB SCH ×2 (08:12→21:33)
[2023-04-16] MEDS: TIMOLOL GFS 0.5% OPH SOLN 74 DROPS/5 ML BTL OP SCH ×2 (08:13→21:34)
[2023-04-16 09:30] LABS: Calcium 8.1 mg/dl (8.6-10.3); Magnesium 2.4 mg/dl (1.7-2.4); Potassium 4.4 mmol/L (3.5-5.1)
[2023-04-16 09:36] LABS: BUN Creatinine Ratio 27.3 (10-20); Creatinine Clr Calc Pharmacy 30.5 ml/min; Est GFR (African American) 26.5 ml/min; Est GFR (Non-African American) 22.8 ml/min
[2023-04-16] MEDS ORDERED: ALBUT/IPRATROP 3MG/0.5MG NEB 3 ML VIAL NEB PRN (10:21)
--- NOTE | 2023-04-16 11:39 | Pharmacy Report ---
Pharmacy Glycemic Short Note 2 - Date of Service April 16, 2023 - Glycemic Short BSG Results (Last 24 hours): 04/15/23 04/15/23 04/15/23 13:07 14:02 16:10 Glucose POC Glucose 281 H 259 H 255 H 04/15/23 04/16/23 04/16/23 20:19 01:01 04:18 Glucose POC Glucose 295 H 197 H 184 H 04/16/23 04/16/23 04/16/23 07:07 08:46 11:12 Glucose 230 H POC Glucose 194 H 196 H OUTPATIENT ANTIDIABETIC REGIMEN: * Humalog SC TIDM (TDD = 25 units) * Toujeo 20 units SC daily * HbA1c= 9.1% on 03/31/23 ASSESSMENT: 04/16: * [place] received around 130 units of insulin yesterday (20 basal + 50 bolus + 60 IV via drip). BSGs trended down nicely yesterday. * Patient listed as Type 1 diabetic but given insulin resistance and age of diagnosis ~38 yo, suspect this is more likely Type 2 or a mixed Type 1-2 hybrid picture. Stressors include Flu A positive on Tamiflu. Ordered and tolerating a T2DM diet. * Fasting BSG was 194 mg/dL this AM. Given A1c and BSGs, comfortable with increasing basal dose by 50% today. Will also tighten carb ratio slightly this morning as patient's postprandials have been elevated. 04/15: * 72 y/o M admitted for Influenza. Patient has history of Type 1 diabetes managed on basal and bolus insulins at home. * He was admitted with high blood sugars last night. Insulin drip initiated. * Anion gap normal. SQ basal and bolus started this morning. Insulin drip is now discontinued. * Pre-lunch BSG today was 231 mg/dl. Novolog parameters started between stress of 2 and 3. * Expect BSGs to trend down this evening. PLAN FOR INPATIENT GLYCEMIC CONTROL: * Basal insulin * Lantus 30 units SC AM * Bolus insulin * NovoLog per scale ACHS or Q6hrs while NPO * Goal Range: Low 110 mg/dL - High 140 mg/dL * Correction Factor: 15 mg/dL/unit * Nutritional / Prandial insulin per carb ratio of 1 unit per 5 grams CHO consumed
[2023-04-16] MEDS: BENZONATATE 100 MG CAPSULE PO PRN (11:45)
[2023-04-16] MEDS ORDERED: metOLazone 2.5 MG TABLET PO ONE (16:00)
[2023-04-16] MEDS ORDERED: predniSONE 20 MG TAB PO STA (18:20)
--- NOTE | 2023-04-16 18:20 | Hospitalist Progress Note ---
Date of Service April 16, 2023 Assessment & Plan (1) Influenza A: Plan: 72 yo male with PMHx of CAD s/p quadruple bypass, DM1, diabetic retinopathy, L BKA, peripheral neuropathy, HFpEF, CKD, glaucoma, HTN, HLD, and RLS presents with acute illness. Acute respiratory failure with hypoxia, flet secondary to flu, could be pneumonitis and also HFpEF, Adding oral steroids to her regimen on 04/17/2023 Attempting to increase diuresis Influenza A -presented with 3 days URI symptoms. Recently discharged after influenza A H1/2009 strain. +seasonal influenza A in ED. No leukocytosis. Afebrile. Hypoxic requiring oxygen supplementation. -duonebs, tamiflu, benzonatate -received rocephin x1 and azithromycin in ED. Cont. azithromycin for anti- inflammatory/?atypical pneumonia support. (2) CKD (chronic kidney disease): Plan: CKD, stage 4 -on admission Cr 2.45. Baseline ~2.2-2.5. Stable. -cont. bumetanide 1 dose of metolazone given in the afternoon of 04/16 following urine output hopefully have good output given swelling to hands and feet (3) Acute hyponatremia: Plan: now improved hypovolemic hyponatremia. S/p IVF. (4) Elevated troponin: Plan: Elevated troponin -on admission trops 300. EKG with ST depressions in lateral leads. Likely due to demand ischemia. History of HFpEF -cont. bumetanide, losartan has chronic lower extremity edema History of CAD s/p bypass -cont. 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 Anion gap wnl. In setting of acute infection. -received 1L NSS in ED. Cont. with maintenance IVF. -received novolin 10 units and started on insulin gtt in ED. Transition to subq when BSG goal met. -pharmacy glycemic management (6) Restless leg syndrome: Plan DVT ppx: heparin SQ FEN/GI: NPO until transitioned to subq insulin Code Status: full Admission and Anticipated Discharge Date Admission Date: April 15, 2023 Subjective Patient looks impute proved less work of breathing still has puffy hands, swollen right leg Breathing is overall improved with treatment of anti-inflammatories and improved with nebulizers returns with recurrent flu A and metabolic encephalopathy with profound weakness Physical Exam Physical Exam: lungs have less rhonchi bibasilar rales decreased breath sounds at the bases cardiac exam is regular Hands are edematous and his remaining right leg is 2+ edema with changes of chronic venous stasis Results & Data Results & Data Vital Signs (Past 12 Hours) Vital Signs Temp Pulse Pulse Resp BP Pulse Ox O2 Del Method 04/16/23 15:58 97.5 F L 56 L 18 131/74 91 Room Air 04/16/23 15:00 55 L 04/16/23 11:13 97.9 F 54 L 18 138/66 96 Room Air 04/16/23 08:00 59 L 04/16/23 08:00 Room Air 04/16/23 07:17 58 L 16 97 Nasal Cannula 04/16/23 07:16 97.9 F 58 L 18 147/84 H 97 Nasal Cannula O2 Flow Rate 04/16/23 15:58 04/16/23 15:00 04/16/23 11:13 04/16/23 08:00 04/16/23 08:00 04/16/23 07:17 3.5 04/16/23 07:16 3 Laboratory Results Reviewed CBC reviewed chemistry PG Care Time/CCT Total # of Minutes Spent Total Time Spent with Patient: Total time spent is greater than 50% in coordination of care (as documented) at patient's floor/unit and/or counseling patient: Coding Level of Care Code 09918 SUB INP/OBS CARE 3/50MIN Diagnoses Influenza A J10.1 CKD (chronic kidney disease) N18.9 Chronic kidney disease stage: unspecified stage Acute hyponatremia E87.1 Elevated troponin R79.89 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
[2023-04-16] MEDS: AZITHROMYCIN 250 MG TAB PO SCH (21:33)
[2023-04-16] MEDS: LATANOPROST 0.005% OP SOLN 2.5 ML BTL OPB SCH (21:33)
[2023-04-16] MEDS: rOPINIRole HCL 1 MG TABLET PO SCH (21:37)
[2023-04-16] MEDS: traZODone HCL 50 MG TAB PO SCH (21:45)
--- NOTE | 2023-04-17 07:26 | Hospitalist Progress Note ---
Date of Service April 17, 2023 Assessment & Plan (1) Influenza A: Plan: 72 yo male with PMHx of CAD s/p quadruple bypass, DM1, diabetic retinopathy, L BKA, peripheral neuropathy, HFpEF, CKD, glaucoma, HTN, HLD, and RLS presents with acute illness. Acute respiratory failure with hypoxia, flet secondary to flu, could be pneumonitis and also HFpEF, Adding oral steroids to her regimen on 04/17/2023 Attempting to increase diuresis patient has improvement in respiratory distress on 04/17/2023 Influenza A -presented with 3 days URI symptoms. Recently discharged after influenza A H1/2009 strain. +seasonal influenza A in ED. No leukocytosis. Afebrile. Hypoxic requiring oxygen supplementation. -duonebs, tamiflu, benzonatate -received rocephin x1 and azithromycin in ED. Cont. azithromycin for anti- inflammatory/?atypical pneumonia support. (2) CKD (chronic kidney disease): Plan: CKD, stage 4 since been stable despite diuresis -on admission Cr 2.45. Baseline ~2.2-2.5. Stable. -cont. bumetanide 1 dose of metolazone given in the afternoon of 04/16 (3) Acute hyponatremia: Plan: now improved sodium 134 04/17/2023 hypovolemic hyponatremia. S/p IVF. (4) Elevated troponin: Plan: Elevated troponin -on admission trops 300. EKG with ST depressions in lateral leads. Likely due to demand ischemia. History of HFpEF -cont. bumetanide, losartan has chronic lower extremity edema History of CAD s/p bypass -cont. 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 Anion gap wnl. In setting of acute infection. -received 1L NSS in ED. Cont. with maintenance IVF. -received novolin 10 units and started on insulin gtt in ED. Transition to subq when BSG goal met. -pharmacy glycemic management; steroids or worsening glucose control (6) Restless leg syndrome: Plan DVT ppx: heparin SQ FEN/GI: NPO until transitioned to subq insulin Code Status: full Admission and Anticipated Discharge Date Admission Date: April 15, 2023 Subjective Patient looks improved , less edema but still has puffy hands, swollen right leg, will add compression stocking Breathing is overall improved with treatment of anti-inflammatories and improved with nebulizers c/o constipation returns with recurrent flu A and metabolic encephalopathy with profound weakness-improving Physical Exam Physical Exam: lungs have less rhonchi bibasilar rales decreased breath sounds at the bases cardiac exam is regular Hands are less edematous and his remaining right leg is 1+ edema with changes of chronic venous stasis Results & Data Results & Data Vital Signs (Past 12 Hours) Vital Signs Temp Pulse Pulse Resp BP Pulse Ox O2 Del Method 04/17/23 00:00 66 04/16/23 23:21 97.5 F L 55 L 18 150/71 H 90 Room Air 04/16/23 20:05 97.3 F L 59 L 18 158/75 H 92 Room Air Laboratory Results Reviewed chemistry Reviewed [id number] glucose elevated PG Care Time/CCT Total # of Minutes Spent Total Time Spent with Patient: Total time spent is greater than 50% in coordination of care (as documented) at patient's floor/unit and/or counseling patient: Coding Level of Care Code 43502 SUB INP/OBS CARE 3/50MIN Diagnoses Influenza A J10.1 CKD (chronic kidney disease) N18.9 Chronic kidney disease stage: unspecified stage Acute hyponatremia E87.1 Elevated troponin R79.89 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
[2023-04-17 07:47] LABS: BUN Creatinine Ratio 28.6 (10-20); Calcium 8.6 mg/dl (8.6-10.3); Creatinine Clr Calc Pharmacy 31.1 ml/min; Est GFR (African American) 27.1 ml/min; Est GFR (Non-African American) 23.4 ml/min; Magnesium 2.4 mg/dl (1.7-2.4); Potassium 4.3 mmol/L (3.5-5.1)
[2023-04-17] MEDS: TIMOLOL GFS 0.5% OPH SOLN 74 DROPS/5 ML BTL OP SCH ×2 (08:54→21:17)
[2023-04-17] MEDS: BUMETANIDE 1 MG TAB PO SCH ×2 (08:55→16:44)
[2023-04-17] MEDS: HEPARIN SOD 5,000 UNIT/0.5 ML VIAL SQ SCH ×2 (08:55→21:19)
[2023-04-17] MEDS: BRIMONIDINE TARTRATE 0.2% 5ML OPB SCH ×2 (08:56→21:18)
[2023-04-17] MEDS: ATORVASTATIN 40 MG TAB PO SCH (08:56)
[2023-04-17] MEDS: ASPIRIN 325 MG ECTAB PO SCH (08:57)
[2023-04-17] MEDS: LOSARTAN POTASSIUM 50 MG TAB PO SCH (08:57)
[2023-04-17] MEDS: DORZOLAMIDE HCL 2% OPH SOLN 10 ML BTL OPB SCH ×2 (08:58→21:18)
[2023-04-17] MEDS: dilTIAZem HCL 240 MG CAPCR PO SCH (08:58)
[2023-04-17] MEDS: INSULIN ASPART PER UNIT CHARGE SC SCH ×4 (09:13→21:25)
[2023-04-17] MEDS: LANTUS PER UNIT CHARGE SC SCH (09:14)
[2023-04-17] MEDS: OSELTAMIVIR PHOSPHATE SUSP 30 MG/5 ML UDP PO SCH ×2 (09:19→21:26)
[2023-04-17] MEDS ORDERED: SENNA 8.6 MG TAB PO ONE (15:42)
[2023-04-17] MEDS ORDERED: LANTUS PER UNIT CHARGE SC SCH (21:00)
[2023-04-17] MEDS: LATANOPROST 0.005% OP SOLN 2.5 ML BTL OPB SCH (21:17)
[2023-04-17] MEDS: rOPINIRole HCL 1 MG TABLET PO SCH (21:19)
[2023-04-17] MEDS: AZITHROMYCIN 250 MG TAB PO SCH (21:19)
[2023-04-17] MEDS: traZODone HCL 50 MG TAB PO SCH (21:26)
[2023-04-18] MEDS: CARBOHYDRATES FOR HYPOGLYCEMIA PO PRN ×2 (01:07→19:36)
[2023-04-18] MEDS ORDERED: INSULIN ASPART PER UNIT CHARGE SC SCH (02:00)
[2023-04-18 07:49] LABS: BUN Creatinine Ratio 36.1 (10-20); Calcium 8.5 mg/dl (8.6-10.3); Creatinine Clr Calc Pharmacy 32.8 ml/min; Est GFR (African American) 29.1 ml/min; Est GFR (Non-African American) 25.1 ml/min; Magnesium 2.4 mg/dl (1.7-2.4); Potassium 3.5 mmol/L (3.5-5.1)
[2023-04-18] MEDS: INSULIN ASPART PER UNIT CHARGE SC SCH ×5 (08:04→23:39)
[2023-04-18] MEDS: LANTUS PER UNIT CHARGE SC SCH (08:05)
[2023-04-18] MEDS: OSELTAMIVIR PHOSPHATE SUSP 30 MG/5 ML UDP PO SCH ×2 (08:05→21:17)
[2023-04-18] MEDS: ATORVASTATIN 40 MG TAB PO SCH (08:06)
[2023-04-18] MEDS: ASPIRIN 325 MG ECTAB PO SCH (08:06)
[2023-04-18] MEDS: BRIMONIDINE TARTRATE 0.2% 5ML OPB SCH ×2 (08:07→21:15)
[2023-04-18] MEDS: BUMETANIDE 1 MG TAB PO SCH ×2 (08:08→17:40)
[2023-04-18] MEDS: dilTIAZem HCL 240 MG CAPCR PO SCH (08:08)
[2023-04-18] MEDS: HEPARIN SOD 5,000 UNIT/0.5 ML VIAL SQ SCH ×2 (08:09→21:18)
[2023-04-18] MEDS: DORZOLAMIDE HCL 2% OPH SOLN 10 ML BTL OPB SCH ×2 (08:09→21:15)
[2023-04-18] MEDS: SENNA 8.6 MG TAB PO SCH (08:10)
[2023-04-18] MEDS: TIMOLOL GFS 0.5% OPH SOLN 74 DROPS/5 ML BTL OP SCH ×2 (08:10→21:14)
[2023-04-18] MEDS: LOSARTAN POTASSIUM 50 MG TAB PO SCH (08:10)
--- NOTE | 2023-04-18 15:32 | Hospitalist Progress Note ---
Date of Service April 18, 2023 Assessment & Plan (1) Influenza A: Plan: 72 yo male with PMHx of CAD s/p quadruple bypass, DM1, diabetic retinopathy, L BKA, peripheral neuropathy, HFpEF, CKD, glaucoma, HTN, HLD, and RLS presents with acute illness. Acute respiratory failure with hypoxia, flet secondary to flu, could be pneumonitis and also HFpEF, Added oral steroids to her regimen on 04/17/2023 lungs are improved Influenza A -presented with 3 days URI symptoms. Recently discharged after influenza A H1/2009 strain. +seasonal influenza A in ED. No leukocytosis. Afebrile. Hypoxic requiring oxygen supplementation. -duonebs, tamiflu, benzonatate -received rocephin x1 and azithromycin in ED. Cont. azithromycin for anti- inflammatory/?atypical pneumonia support. (2) CKD (chronic kidney disease): Plan: CKD, stage 4 since been stable despite diuresis -on admission Cr 2.45. Baseline ~2.2-2.5. Stable. -cont. bumetanide 1 dose of metolazone given in the afternoon of 04/16 (3) Acute hyponatremia: Plan: now improved sodium 135 on 04/18/2023 hypovolemic hyponatremia. S/p IVF. (4) Elevated troponin: Plan: Elevated troponin -on admission trops 300. EKG with ST depressions in lateral leads. Likely due to demand ischemia. History of HFpEF -cont. bumetanide, losartan has chronic lower extremity edema History of CAD s/p bypass -cont. 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 Anion gap wnl. In setting of acute infection. -received 1L NSS in ED. Cont. with maintenance IVF. -received novolin 10 units and started on insulin gtt in ED. Transition to subq when BSG goal met. -pharmacy glycemic management; steroids or worsening glucose control (6) Restless leg syndrome: Plan DVT ppx: heparin SQ Code Status: full Admission and Anticipated Discharge Date Admission Date: April 15, 2023 Subjective Patient continues to improve, continues less edema Breathing is overall improved with treatment of anti-inflammatories and improved with nebulizers With resolution of constipation returns with recurrent flu A and metabolic encephalopathy with profound weakness-improving Physical Exam Physical Exam: lungs have cleared out with exception of decreased breath sounds at the bases cardiac exam is regular right leg is 1+ edema with changes of chronic venous stasis JOANNA hose in place but edema remains this is likely chronic Results & Data Results & Data Vital Signs (Past 12 Hours) Vital Signs Temp Pulse Pulse Resp BP Pulse Ox Pulse Ox 04/18/23 15:15 92 04/18/23 11:07 97.3 F L 52 L 18 138/68 93 04/18/23 08:07 62 04/18/23 08:00 04/18/23 07:23 58 L 04/18/23 07:10 97.3 F L 54 L 18 126/76 95 O2 Del Method O2 Flow Rate 04/18/23 15:15 0 04/18/23 11:07 Room Air 04/18/23 08:07 04/18/23 08:00 Room Air 04/18/23 07:23 04/18/23 07:10 Room Air Laboratory Results Reviewed chemistry Reviewed magnesium PG Care Time/CCT Total # of Minutes Spent Total Time Spent with Patient: Total time spent is greater than 50% in coordination of care (as documented) at patient's floor/unit and/or counseling patient: Coding Level of Care Code 75368 SUB INP/OBS CARE 2/35MIN Diagnoses Influenza A J10.1 CKD (chronic kidney disease) N18.9 Chronic kidney disease stage: unspecified stage Acute hyponatremia E87.1 Elevated troponin R79.89 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
[2023-04-18] MEDS ORDERED: LANTUS PER UNIT CHARGE SC SCH (21:00)
[2023-04-18] MEDS: rOPINIRole HCL 1 MG TABLET PO SCH (21:14)
[2023-04-18] MEDS: LATANOPROST 0.005% OP SOLN 2.5 ML BTL OPB SCH (21:15)
[2023-04-18] MEDS: AZITHROMYCIN 250 MG TAB PO SCH (21:17)
[2023-04-18] MEDS: traZODone HCL 50 MG TAB PO SCH (21:19)
[2023-04-19] MEDS: INSULIN ASPART PER UNIT CHARGE SC SCH (03:28)
[2023-04-19 07:13] LABS: BUN Creatinine Ratio 33.1 (10-20); Calcium 8.6 mg/dl (8.6-10.3); Creatinine Clr Calc Pharmacy 30.4 ml/min; Est GFR (African American) 26.6 ml/min; Est GFR (Non-African American) 22.9 ml/min; Magnesium 2.4 mg/dl (1.7-2.4); Potassium 3.6 mmol/L (3.5-5.1)
[2023-04-19] MEDS ORDERED: INSULIN ASPART PER UNIT CHARGE SC SCH ×2 (07:40→11:30)
[2023-04-19] MEDS: ASPIRIN 325 MG ECTAB PO SCH (08:30)
[2023-04-19] MEDS: SENNA 8.6 MG TAB PO SCH (08:31)
[2023-04-19] MEDS: dilTIAZem HCL 240 MG CAPCR PO SCH (08:31)
[2023-04-19] MEDS: TIMOLOL GFS 0.5% OPH SOLN 74 DROPS/5 ML BTL OP SCH (08:31)
[2023-04-19] MEDS: BUMETANIDE 1 MG TAB PO SCH (08:31)
[2023-04-19] MEDS: ATORVASTATIN 40 MG TAB PO SCH (08:31)
[2023-04-19] MEDS: BRIMONIDINE TARTRATE 0.2% 5ML OPB SCH (08:31)
[2023-04-19] MEDS: LOSARTAN POTASSIUM 50 MG TAB PO SCH (08:31)
[2023-04-19] MEDS: LANTUS PER UNIT CHARGE SC SCH (08:32)
[2023-04-19] MEDS: HEPARIN SOD 5,000 UNIT/0.5 ML VIAL SQ SCH (08:32)
[2023-04-19] MEDS: DORZOLAMIDE HCL 2% OPH SOLN 10 ML BTL OPB SCH (08:32)
--- NOTE | 2023-04-19 12:11 | Pharmacy Report ---
Pharmacy Glycemic Short Note 2 - Date of Service April 19, 2023 - Glycemic Short BSG Results (Last 24 hours): 04/18/23 04/18/23 04/18/23 16:21 16:21 19:25 Glucose POC Glucose 67 L* 75 52 L* 04/18/23 04/18/23 04/19/23 19:53 23:35 03:07 Glucose POC Glucose 78 89 98 04/19/23 04/19/23 04/19/23 05:46 07:09 11:08 Glucose 103 H POC Glucose 118 H 214 H OUTPATIENT ANTIDIABETIC REGIMEN: * Humalog SC TIDM (TDD = 25 units) * Toujeo 20 units SC daily * HbA1c= 9.1% on 03/31/23 ASSESSMENT: 04/19: * BSGs 94-35-63-12-192-356ua/dL the last 24h. Received 25units of basal and 28units of bolus insulin yesterday. * Tolerating diet, other stressors stable. * Continue Lantus 20 units daily. Novolog 24/08 with breakfast and looser parameters at all other times. 04/16: * [place] received around 130 units of insulin yesterday (20 basal + 50 bolus + 60 IV via drip). BSGs trended down nicely yesterday. * Patient listed as Type 1 diabetic but given insulin resistance and age of diagnosis ~38 yo, suspect this is more likely Type 2 or a mixed Type 1-2 hybrid picture. Stressors include Flu A positive on Tamiflu. Ordered and tolerating a T2DM diet. * Fasting BSG was 194 mg/dL this AM. Given A1c and BSGs, comfortable with increasing basal dose by 50% today. Will also tighten carb ratio slightly this morning as patient's postprandials have been elevated. 04/15: * 72 y/o M admitted for Influenza. Patient has history of Type 1 diabetes managed on basal and bolus insulins at home. * He was admitted with high blood sugars last night. Insulin drip initiated. * Anion gap normal. SQ basal and bolus started this morning. Insulin drip is now discontinued. * Pre-lunch BSG today was 231 mg/dl. Novolog parameters started between stress of 2 and 3. * Expect BSGs to trend down this evening. PLAN FOR INPATIENT GLYCEMIC CONTROL: * Basal insulin * Lantus 20 units SC AM * Bolus insulin * NovoLog per scale ACHS or Q6hrs while NPO * Goal Range: Low 110 mg/dL - High 140 mg/dL * Correction Factor: 15 mg/dL/unit (breakfast), 20mg/dL/unit (lunch, dinner, HS) * Nutritional / Prandial insulin per carb ratio of 1 unit per 5 grams (breakfast), 7gm (lunch, dinner, HS) CHO consumed
--- NOTE | 2023-04-19 17:57 | Discharge Summary ---
Date of Service April 19, 2023 Admission HPI Per Admitting Provider 72 yo male with PMHx of CAD s/p quadruple bypass, DM1, diabetic retinopathy, L BKA, peripheral neuropathy, HFpEF, CKD, glaucoma, HTN, HLD, and RLS presents with acute illness. Patient was recently discharged from [facility] following influenza A subtype H 04/2008 strain. 3 days ago he developed a dry cough, shortness of breath, headache, fatigue, mild abdominal pain, nausea. Does endorse some intermittent chest pain when he coughs. Symptoms ongoing. Denies fever, chills, vomiting, diarrhea, dysuria. He has been compliant with his home medications. Principal Diagnosis Influenza A Acute on chronic respiratory failure Chronic kidney disease stage IV Hyponatremia Insulin requiring diabetes Discharge Exam Awake alert appropriate. Much less edema in the hands and leg Lung exam shows reasonable air movement and otherwise clear Card exam is regular Discharge Data Allergies Allergy/AdvReac Type Severity Reaction Status Date / Time sulfamethoxazole Allergy Intermediate Rash Verified 03/11/23 11:24 trimethoprim Allergy Intermediate Rash Verified 03/11/23 11:24 Quinolones Allergy Mild Itchiness Verified 03/11/23 11:24 ofloxacin [From Floxin] Allergy itching Verified 03/11/23 11:24 Consultations 04/15/23 01:21 ED Decision to Admit Stat Hospital Course (1) Influenza A: 72 yo male with PMHx of CAD s/p quadruple bypass, DM1, diabetic retinopathy, L BKA, peripheral neuropathy, HFpEF, CKD, glaucoma, HTN, HLD, and RLS presents with acute illness. Acute respiratory failure with hypoxia, flet secondary to flu, could be pneumonitis and also HFpEF, Added oral steroids to her regimen on 04/17/2023 lungs are improved Influenza A -presented with 3 days URI symptoms. Recently discharged after influenza A H1/2008 strain. +seasonal influenza A in ED. No leukocytosis. Afebrile. Hypoxic requiring oxygen supplementation. completed additional doses of Tamiflu resume home albuterol inhaler -received rocephin x1 and azithromycin in ED. not go home on any antibiotics at this point in time (2) CKD (chronic kidney disease): CKD, stage 4 since been stable despite diuresis -on admission Cr 2.45. Baseline ~2.2-2.5. Stable. -cont. bumetanide 1 dose of metolazone given in the afternoon of 04/16 Given instructions on daily weight and to take metolazone if gaining 5 pounds a week or 3 pounds overnight (3) Acute hyponatremia: now improved sodium 135 on 04/18/2023 hypovolemic hyponatremia. S/p IVF. (4) Elevated troponin: Elevated troponin -on admission trops 300. EKG with ST depressions in lateral leads. Likely due to demand ischemia. History of HFpEF -cont. bumetanide, losartan has chronic lower extremity edema improved with diuresis History of CAD s/p bypass -cont. asa, statin, losartan (5) 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, with long-term current use of insulin: DM1 Patient states he cannot afford Toujeo as initially prescribed at home he typically takes NPH 30 units twice a day and his sliding scale regular [facility] not [facility] at home to take care of these issues (6) Restless leg syndrome: Plan Code Status: full Total Time Total Time Spent Total Time Spent (In Minutes): It required greater than 30 minutes to prepare this patient for discharge. Discharge Plan Discharge Items Patient Disposition: Home - Home Health Services Reason For Visit: ILLNESS Discharge Diagnosis: influenza pneumonia weakness secondary to infection-metabolic encephalopahty extra fluid from diastolic heart failure longstanding kidney distress CKD4 low blood sodium level elevated heart enzymes due to stress from infection Activity: Resume your previous activity Non-emergency contact: Primary Care Provider and Long Term Care Administrator Call non-emergency contact if: your symptoms worsen Follow-up/Referrals: Leah Wolf DO [Primary Care Provider] - 04/29/23 9:20 am Diet: Dialysis Renal Addtl Attending Provider Instructions: please rest and recover, follow up with your family doctor this week if able consider home nursing to keep an eye on your fluid retention Pending Studies at Discharge: No Stand-Alone Forms: My [employer], Smoking Cessation Medications and DC Order Prescriptions: New Novolin N NPH U-100 Insulin 100 unit/mL suspension 30 unit subcut BID Qty: 10 0RF Humulin R Regular U-100 Insuln 100 unit/mL solution 1 sliding scale dose subcut USEASDIRECTD Qty: 10 0RF Continued (DME) OneTouch Ultra Blue Test Strip Strip See Dose Instructions .ROUTE .MEDSUPPLY Qty: 100 5RF Rx Instructions: use 1 strip to check glucose 4 times daily dx: E10.42, E10.65, E10.319 (DME) FreeStyle Farhad 2 Annabella Misc See Rx Instructions .ROUTE .MEDSUPPLY Qty: 1 0RF Rx Instructions: As directed atorvastatin [Lipitor] 80 mg tablet 80 mg PO QAM Qty: 90 1RF losartan 100 mg tablet 100 mg PO QAM Qty: 90 1RF (DME) pen needle, diabetic [BD Ultra-Fine [place] Pen Needle] 32 gauge x 5/32" needle See Rx Instructions .Route Qty: 400 3RF Rx Instructions: Inject insulin four times daily ropinirole 1 mg tablet 3 mg PO HS Qty: 270 1RF bumetanide 2 mg tablet 4 mg PO BID Qty: 120 6RF (DME) lancets [OneTouch UltraSoft Lancets] misc See Dose Instructions .ROUTE .MEDSUPPLY Qty: 50 Rx Instructions: test 4 times dailiy ascorbic acid (vitamin C) 500 mg capsule 500 mg PO QAM (DME) Wheelchair (Powered) Device See Rx Instructions .ROUTE .MEDSUPPLY Qty: 1 0RF Rx Instructions: powered wheelchair as directed (DME) FreeStyle Farhad 2 Sensor Kit See Rx Instructions .ROUTE .MEDSUPPLY Qty: 2 5RF Rx Instructions: As directed. Dx: E10.319, E10.65, E10.42. Testing BS qid calcitriol 0.5 mcg capsule 1 mcg PO QAM Qty: 60 4RF diltiazem HCl 240 mg capsule,extended release 24hr 240 mg PO DAILY Qty: 90 3RF albuterol sulfate 90 mcg/actuation HFA aerosol inhaler 2 puff inhalation Q6H PRN (Reason: shortness of breath or wheezing) Qty: 18 3RF latanoprost [Xalatan] 0.005 % Drops 1 drp OPB HS aspirin 325 mg Tablet 325 mg PO QAM cholecalciferol (vitamin D3) [Vitamin D3] 50 mcg (2,000 unit) capsule 2,000 units PO QAM brimonidine 0.2 % drops 1 drp OPB BID timolol maleate 0.5 % gel forming solution 1 drp OPB BID dorzolamide 2 % drops 1 drp OPB BID trazodone 50 mg tablet 50 mg PO HS potassium gluconate 595 mg (99 mg) tablet 1,785 mg PO QAM metolazone 5 mg tablet 5 mg PO UD PRN (Reason: weight gain) Qty: 14 6RF Rx Instructions: take if weight does up 3 pound in a day or 5 pounds in a week Discharge Orders: Discharge Order (Routine); Ordered 04/19/23 Ordered By: Edinson Encarnacion Admission Data Admit Date/Time: 04/15/23 02:20 Attending Provider: Edinson Encarnacion Admit Provider: Yinka Naik Primary Care Provider: Leah Wolf Other Providers: Tad Dumont Other Interventions: Discharge Summary Assessment (RN) Last Done: 04/19/23 13:25 Coding Level of Care Code 35482 INP/OBS DISCH >30 MIN Diagnoses Influenza A J10.1 CKD (chronic kidney disease) N18.9 Chronic kidney disease stage: unspecified stage Acute hyponatremia E87.1 Elevated troponin R79.89 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, with long-term current use of insulin E10.319; E10.65 Restless leg syndrome G25.81
== END 2023-04-19 13:26 | disposition home health service (06) | DRG 193 ==
LOC: ED 23:51 → EDINP 04-15 02:20 → SUATTDRO 04-15 02:20 → 2E 04-15 04:44

== ENCOUNTER 2023-04-29 10:27 | Inpatient (IN) ==
[2023-04-29 11:51] LABS: Base Excess VBG 1.6 mEq/L; HCO3 VBG 29 mmol/L; Oxygen Saturation VBG 63.4 %; PCO2 VBG 56 mmHg (38-50); PO2 VBG 41 mmHg; pH VBG 7.32 (7.36-7.41)
[2023-04-29 11:59] LABS: Basophils # (auto) 0.05 K/uL (0.00-0.20); Basophils % (auto) 0.7 %; Eosinophils # (auto) 0.29 K/uL (0.00-0.50); Eosinophils % (auto) 3.9 %; Hemoglobin 10.5 g/dl (14.0-18.0); Immature Granulocytes # (auto) 0.02 K/uL (0.01-0.20); Immature Granulocytes % (auto) 0.3 %; Lymphocytes # (auto) 0.72 K/uL (1.20-3.40); Lymphocytes % (auto) 9.8 %; Mean Corpuscular Hemoglobin 30.5 pg (25.0-34.0); Mean Corpuscular Hgb Conc 31.8 g/dL (32.0-36.0); Mean Corpuscular Volume 95.9 fL (80.0-100.0); Mean Platelet Volume 12.9 fL (9.4-12.4); Monocytes # (auto) 0.73 K/uL (0.11-0.59); Monocytes % (auto) 9.9 %; Neutrophils # (auto) 5.54 K/uL (1.40-6.50); Neutrophils % (auto) 75.4 %; Platelet Count 168 K/uL (130-400); RDW Coefficient of Variation 14.9 % (11.5-14.5); RDW Standard Deviation 51.2 fL (36.4-46.3); Red Blood Count 3.44 M/uL (4.70-6.10); White Blood Count 7.35 K/ul (4.8-10.8)
[2023-04-29 12:13] LABS: BUN Creatinine Ratio 24.4 (10-20); Creatinine Clr Calc Pharmacy 33.3 ml/min; Est GFR (African American) 28.3 ml/min; Est GFR (Non-African American) 24.4 ml/min; Potassium 4.3 mmol/L (3.5-5.1)
[2023-04-29 12:24] LABS: INR 1.1 (0.9-1.1); Partial Thromboplastin Time 29 Seconds (21-31); Prothrombin Time 11.7 Seconds (9.0-12.0)
[2023-04-29] MEDS ORDERED: BUMETANIDE 4 MG in SYRINGE 0 ML IV ONE (13:01)
[2023-04-29 13:09] LABS: Adenovirus PCR Not Detected (NotDetected); Bordetella parapertussis PCR Not Detected (NotDetected); Bordetella pertussis PCR Not Detected (NotDetected); Chlamydia pneumoniae PCR Not Detected (NotDetected); Coronavirus 229E PCR Not Detected (NotDetected); Coronavirus CoV-2 (COVID19)PCR Not Detected (NotDetected); Coronavirus HKU1 PCR Not Detected (NotDetected); Coronavirus NL63 PCR Not Detected (NotDetected); Coronavirus OC43PCR Not Detected (NotDetected); Human Metapneumovirus PCR Not Detected (NotDetected); Influenza A PCR Not Detected (NotDetected); Influenza B PCR Not Detected (NotDetected); Mycoplasma pneumoniae PCR Not Detected (NotDetected); Parainfluenza Virus 1 PCR Not Detected (NotDetected); Parainfluenza Virus 2 PCR Not Detected (NotDetected); Parainfluenza Virus 3 PCR Not Detected (NotDetected); Parainfluenza Virus 4 PCR Not Detected (NotDetected); Respiratory Syncytial VirusPCR Not Detected (NotDetected); Rhinovirus/Enterovirus PCR Not Detected (NotDetected)
--- NOTE | 2023-04-29 13:11 | XRay Report ---
XR chest 1V portable HISTORY: Chest pain, nonspecific COMPARISON: Chest 04/15/2023. FINDINGS: No pneumothorax. The heart remains enlarged. There are poststernotomy changes. Perihilar in terstitial/vascular thickening consistent with pulmonary edema. This is similar to the prior study. S mall bilateral pleural effusions persist. Bibasilar linear densities favor compressive atelectasis fr om the pleural effusions. Otherwise, no new focal lung consolidations. IMPRESSION: No significant change in the cardiomegaly, pulmonary edema, and small bilateral pleural effusions. ACT 112: Negative or not required by law. Electronically signed by: Abilio Soto M.D. 04/29/2023 1:09 PM
--- NOTE | 2023-04-29 14:25 | History & Physical Report ---
Date of Service April 29, 2023 Assessment & Plan (1) Acute exacerbation of CHF (congestive heart failure): Plan: 72 yo male with PMHx of CAD s/p quadruple bypass, DM1, diabetic retinopathy, L BKA, peripheral neuropathy, HFpEF, CKD, glaucoma, HTN, HLD, and RLS presents with shortness of breath. #Acute on Chronic HFpEF in Exacerbation -presented with 3 days worsening shortness of breath. Requiring 2L NC in the ED otherwise vitals wnl, afebrile. No leukocytosis or evidence for infection. CXR consistent with volume overload. Dry weight unknown however he is up ~15-20 pounds since his recent discharge. RVP negative. -Will double home diuretic dose - cont. 4mg Bumex IV BID -monitor I/Os, daily weights -consider doses of metolazone to promote diuresis #Elevated troponin -on admission trops 25, 2hr repeat with acceptable delta. EKG with questionable ST depressions in lateral leads. Likely due to demand ischemia. #DM1 -cont. novolin BID + SSI -hypoglycemic protocol -pharmacy glycemic consult placed #CAD s/p bypass -cont. asa, statin, losartan #CKD, stage 4 -on admission Cr 2.5. Baseline ~2.2-2.5. Stable. -bumex as above #Glaucoma #Diabetic Retinopathy -cont. brimonidine, dorzolamide, latanoprost, timolol #Insomnia -cont. trazodone #RLS -cont. ropinirole #HTN -cont. diltiazem, losartan DVT ppx: heparin subq FEN/GI: HH, DM1, low Na Code Status: full Dispo: med tele (2) (HFpEF) heart failure with preserved ejection fraction: (3) Glaucoma: (4) Lower extremity edema: (5) Chronic kidney disease, stage 4 (severe): (6) Insomnia: (7) S/P CABG x 4: (8) CAD, multiple vessel: (9) GERD (gastroesophageal reflux disease): (10) Restless leg syndrome: (11) Hypertension: (12) Dyslipidemia: (13) 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, with long-term current use of insulin: History of Present Illness Chief Complaint: shortness of breath Primary Care Provider: Leah Wolf, 72 yo male with PMHx of CAD s/p quadruple bypass, DM1, diabetic retinopathy, L BKA, peripheral neuropathy, HFpEF, CKD, glaucoma, HTN, HLD, and RLS presents with shortness of breath. 3 days ago patient started developing shortness of breath which has progressively been worsening. He has had associated fatigue and a mild headache. Otherwise he denies fevers, chills, chest pain, abdominal pain, nausea, vomiting, diarrhea, dysuria, extremity/numbness. He was recently discharged from the hospital 2 weeks ago following influenza and hyperglycemia. After discharge he states he was feeling good and at his baseline. He has been compliant with his medications at home including his Bumex and insulin. He does have metolazone on his med list to be used as needed for weight gain however he claims he is out of this medication. He also does not check his weight at home. Denies any changes in his diet, if anything he has had last oral intake due to being fatigued. Allergies Allergy/AdvReac Type Severity Reaction Status Date / Time sulfamethoxazole Allergy Intermediate Rash Verified 03/11/23 11:24 trimethoprim Allergy Intermediate Rash Verified 03/11/23 11:24 Quinolones Allergy Mild Itchiness Verified 03/11/23 11:24 ofloxacin [From Floxin] Allergy itching Verified 03/11/23 11:24 Home Medications Medication Instructions Recorded Confirmed Type aspirin 325 mg tablet 325 mg PO QAM 12/27/17 04/29/23 History latanoprost 0.005 % eye drops 1 drp OPB HS 12/27/17 04/29/23 History (Xalatan) lancets (iNEWiTTouch UltraSoft #50 ea 12/12/18 04/20/23 History Lancets) cholecalciferol (vitamin D3) 50 2,000 units PO QAM 11/10/19 04/29/23 History mcg (2,000 unit) capsule (Vitamin D3) Wheelchair (Powered) #1 ea 11/22/19 04/20/23 Rx blood sugar diagnostic (iNEWiTTouch #100 ea 01/31/20 04/20/23 Rx Ultra Blue Test Strip) brimonidine 0.2 % eye drops 1 drp OPB BID 12/07/20 04/29/23 History dorzolamide 2 % eye drops 1 drp OPB BID 12/07/20 04/29/23 History timolol maleate 0.5 % eye gel 1 drp OPB BID 12/07/20 04/29/23 History forming solution ascorbic acid (vitamin C) 500 mg 500 mg PO QAM 02/19/21 04/29/23 History capsule potassium gluconate 595 mg (99 mg) 1,785 mg PO QAM 06/09/21 04/29/23 History tablet flash glucose scanning reader #1 ea 12/17/21 04/20/23 Rx (FreeStyle Farhad 2 [place]) flash glucose sensor (FreeStyle #2 ea 08/06/22 04/20/23 Rx Farhad 2 Sensor kit) trazodone 50 mg tablet 50 mg PO HS 10/12/22 04/29/23 History atorvastatin 80 mg tablet (Lipitor) 80 mg PO QAM #90 tabs 12/18/22 04/29/23 Rx losartan 100 mg tablet 100 mg PO QAM #90 tabs 12/23/22 04/29/23 Rx diltiazem HCl 240 mg 240 mg PO DAILY #90 caps 01/21/23 04/29/23 Rx capsule,extended release 24 hr calcitriol 0.5 mcg capsule 1 mcg (2 x 0.5 mcg) PO QAM #60 caps 01/25/23 04/29/23 Rx albuterol sulfate 90 mcg/actuation 2 puff inhalation Q6H PRN 02/10/23 04/29/23 Rx aerosol inhaler shortness of breath or wheezing #18 grams pen needle, diabetic 32 gauge x #400 ea 02/25/23 04/20/23 Rx 5/32" (BD Ultra-Fine [place] Pen Needle) ropinirole 1 mg tablet 3 mg (3 x 1 mg) PO HS #270 tabs 03/16/23 04/29/23 Rx bumetanide 2 mg tablet 4 mg (2 x 2 mg) PO BID #120 tabs 04/09/23 04/29/23 Rx insulin NPH isoph U-100 human 100 30 unit (0.3 mL) subcut BID #10 mL 04/19/23 04/29/23 Rx unit/mL subcutaneous suspension (Novolin N NPH U-100 Insulin isophane) insulin regular human 100 unit/mL 1 sliding scale dose subcut 04/19/23 04/29/23 Rx injection solution (Humulin R USEASDIRECTD #10 mL Regular U-100 Insulin) metolazone 5 mg tablet 5 mg PO UD PRN weight gain #14 tabs 04/19/23 04/29/23 Rx Past Med/Surg History Medical History (Updated 04/29/23 @ 14:23 by Yinka Naik DO) Influenza A virus subtype H1 2009 pandemic strain present Slow to wake up after anesthesia Acute kidney failure Anemia of chronic disease Wound of lower extremity RLE wound "improved" per 01/27/21 wound clinic visit ([facility]); surgeon aware of patient's wound hx per 01/2021 office visit note; "only has a little scab there now, keeps it covered to protect it." Diabetes, type I Chronic kidney disease, stage 4 (severe) Nephrotic syndrome HF clinic office visit (02/08/20): "referred to the program for assistance with management of diuretic resistant hypervolemia in the setting of ne phrotic syndrome. His hypervolemia is not felt to be secondary to heart failure. He has been stable on Bumex 3 mg BID. His weight has been stable. Follow up labs demonstrate kidney function and electrolytes stable. Discussed consistent daily standing weights. I&Os. 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 GERD (gastroesophageal reflux disease) Mild obstructive sleep apnea "Mild" > no device Restless leg syndrome History of TIA (transient ischemic attack) ~2009>over his left eye, no residual symptoms Surgical History (Updated 04/11/23 @ 00:08 by Rocío Solano) S/P arteriovenous (AV) fistula creation left>no currently having dialysis History of esophagogastroduodenoscopy (EGD) History of colonoscopy Status post below knee amputation of left lower extremity S/P lumbar laminectomy S/P foot surgery S/P eye surgery B/L x3 (for glaucoma) S/P CABG x 4 CABG x4 (2011), [facility]; f/u PCP History of lumbar discectomy History of tonsillectomy Family History Father , age 78 with prostate cancer Colorectal cancer Cardiovascular disease Diabetes Prostate cancer Grandmother (Maternal) Diabetes Mother , age 54 of throat cancer Throat cancer Denies family history of Ovarian cancer Myocardial infarction Breast cancer Social History Smoking Status: Never smoker Second Hand Exposure: No; Do You Dip or Chew Tobacco: No; Hx Alcohol Use: No Hx Substance Use: No Preferred Language: Polish Communication Ability: Effective Visual Impairment: No Limitations Hearing Ability: Normal Automation Operator Required: No Beliefs That Will Affect Care: None marital status: / marital status details: lost August 2021 Current Living Situation: Alone current occupational status: retired current occupation: How many Children do You have: 2 other: Retired age 63-1/2. Feels Safe at Home: Yes Childhood Exposure to Second-Hand Smoke: No Diet: regular caffeine: No during the past year weight has: remained stable Dental Care, Regularly: Yes Physical Activity Frequency: Other Physical Activity Frequency Comment: limited d/t disability Seatbelt Use: always Sunscreen Use: Yes Assistive Devices: Scooter/Electric Scooter Review of Systems Review of Systems: All systems reviewed & are unremarkable except as noted in HPI & below Physical Exam Physical Exam: Constitutional: in no acute distress, pleasant and normal affect, intact memory. AOx3. Vitals as above. HEENT: No scleral injection or discharge.Moist mucous membranes. Neck: Supple without lymphadenopathy. Trachea midline. Lungs: Diminished sounds bibasilar lungs. No rales/rhonchi/wheezes. Cardiac: Regular rate and rhythm.No murmurs. 2+ distal peripheral pulses. +nonpitting edema R lower extremity without tenderness. Abdomen: Bowel sounds present. Soft and nontender. Distended.No guarding. MSK: No cyanosis or clubbing. +BKA on left. Skin: Warm, dry. R lower extremity with anterior aragon bullae surrounded with nontender erythema (marked to monitor progression) Neurologic: no focal deficits Results & Data Results & Data Vital Signs (Past 12 Hours) Vital Signs Temp Pulse Pulse Resp BP BP Pulse Ox 04/29/23 13:00 66 18 195/126 H 96 04/29/23 11:59 66 04/29/23 11:52 68 21 99 04/29/23 11:43 66 21 99 04/29/23 10:42 37.0 C 89 24 162/72 H 87 L O2 Del Method O2 Flow Rate 04/29/23 13:00 Nasal Cannula 2 04/29/23 11:59 04/29/23 11:52 Nasal Cannula 2 04/29/23 11:43 Nasal Cannula 2 04/29/23 10:42 Room Air Laboratory Results Laboratory Results WBC 7.35 K/ul (4.8-10.8) 04/29/23 11:40 RBC 3.44 M/uL (4.70-6.10) L 04/29/23 11:40 Hgb 10.5 g/dl (14.0-18.0) L 04/29/23 11:40 Hct 33.0 % (42.0-52.0) L 04/29/23 11:40 MCV 95.9 fL (80.0-100.0) 04/29/23 11:40 MCH 30.5 pg (25.0-34.0) 04/29/23 11:40 MCHC 31.8 g/dL (32.0-36.0) L 04/29/23 11:40 RDW Std Deviation 51.2 fL (36.4-46.3) H 04/29/23 11:40 RDW Coeff of Jose 14.9 % (11.5-14.5) H 04/29/23 11:40 Plt Count 168 K/uL (130-400) 04/29/23 11:40 MPV 12.9 fL (9.4-12.4) H 04/29/23 11:40 Immature Gran % (Auto) 0.3 % 04/29/23 11:40 Neut % (Auto) 75.4 % 04/29/23 11:40 Lymph % (Auto) 9.8 % 04/29/23 11:40 [place] % (Auto) 9.9 % 04/29/23 11:40 Eos % (Auto) 3.9 % 04/29/23 11:40 Baso % (Auto) 0.7 % 04/29/23 11:40 Neut # (Auto) 5.54 K/uL (1.40-6.50) 04/29/23 11:40 Lymph # (Auto) 0.72 K/uL (1.20-3.40) L 04/29/23 11:40 Stanly # (Auto) 0.73 K/uL (0.11-0.59) H 04/29/23 11:40 Eos # (Auto) 0.29 K/uL (0.00-0.50) 04/29/23 11:40 Baso # (Auto) 0.05 K/uL (0.00-0.20) 04/29/23 11:40 Immature Gran # (Auto) 0.02 K/uL (0.01-0.20) 04/29/23 11:40 PT 11.7 Seconds (9.0-12.0) 04/29/23 11:40 INR 1.1 (0.9-1.1) 04/29/23 11:40 APTT 29 Seconds (21-31) 04/29/23 11:40 PTT Ratio 1.0 04/29/23 11:40 VBG pH 7.32 (7.36-7.41) L 04/29/23 11:40 VBG pCO2 56 mmHg (38-50) H 04/29/23 11:40 VBG pO2 41 mmHg 04/29/23 11:40 VBG HCO3 29 mmol/L 04/29/23 11:40 VBG O2 Saturation 63.4 % 04/29/23 11:40 VBG Base Excess 1.6 mEq/L 04/29/23 11:40 Sodium 139 mmol/L (136-145) 04/29/23 11:40 Potassium 4.3 mmol/L (3.5-5.1) 04/29/23 11:40 Chloride 103 mmol/L (98-107) 04/29/23 11:40 Carbon Dioxide 29 mmol/L (21-32) 04/29/23 11:40 Anion Gap 7 (3-11) 04/29/23 11:40 BUN 61 mg/dl (6-23) H 04/29/23 11:40 Creatinine 2.50 mg/dl (0.6-1.4) H 04/29/23 11:40 Est Cr Clr Drug Dosing 33.3 ml/min 04/29/23 11:40 Est GFR ( Amer) 28.3 ml/min 04/29/23 11:40 Est GFR (Non-Af Amer) 24.4 ml/min 04/29/23 11:40 BUN/Creatinine Ratio 24.4 (10-20) H 04/29/23 11:40 Glucose 209 mg/dl (70-99(Fasting)) H 04/29/23 11:40 Calcium 9.0 mg/dl (8.6-10.3) 04/29/23 11:40 Troponin I High Sens 26.9 pg/ml (0-20) H 04/29/23 13:17 B-Natriuretic Peptide 1099 pg/ml (0-100) H 04/29/23 11:40 Lipase 29 U/L (11-82) 04/29/23 11:40 Adenovirus (PCR) Not Detected (NotDetected) 04/29/23 Unknown B. pertussis DNA (PCR) Not Detected (NotDetected) 04/29/23 Unknown B.parapertussis DNA PCR Not Detected (NotDetected) 04/29/23 Unknown C. pneumoniae DNA (PCR) Not Detected (NotDetected) 04/29/23 Unknown Coronavirus OC43 (PCR) Not Detected (NotDetected) 04/29/23 Unknown Coronavirus HKU1 (PCR) Not Detected (NotDetected) 04/29/23 Unknown Coronavirus 229E (PCR) Not Detected (NotDetected) 04/29/23 Unknown SARS-CoV-2 (PCR) Not Detected (NotDetected) 04/29/23 Unknown Coronavirus NL63 (PCR) Not Detected (NotDetected) 04/29/23 Unknown Human Metapneumovir PCR Not Detected (NotDetected) 04/29/23 Unknown Influenza Type A (PCR) Not Detected (NotDetected) 04/29/23 Unknown Influenza Type B (PCR) Not Detected (NotDetected) 04/29/23 Unknown M. pneumoniae (PCR) Not Detected (NotDetected) 04/29/23 Unknown Parainfluenza 1 (PCR) Not Detected (NotDetected) 04/29/23 Unknown Parainfluenza 2 (PCR) Not Detected (NotDetected) 04/29/23 Unknown Parainfluenza 3 (PCR) Not Detected (NotDetected) 04/29/23 Unknown Parainfluenza 4 (PCR) Not Detected (NotDetected) 04/29/23 Unknown RSV (PCR) Not Detected (NotDetected) 04/29/23 Unknown Entero/Rhino (PCR) Not Detected (NotDetected) 04/29/23 Unknown Impressions Chest X-Ray 04/29/23 11:08 XR chest 1V portable HISTORY: Chest pain, nonspecific COMPARISON: Chest 04/15/2023. FINDINGS: No pneumothorax. The heart remains enlarged. There are poststernotomy changes. Perihilar interstitial/vascular thickening consistent with pulmonary edema. This is similar to the prior study. Small bilateral pleural effusions persist. Bibasilar linear densities favor compressive atelectasis from the pleural effusions. Otherwise, no new focal lung consolidations. IMPRESSION: No significant change in the cardiomegaly, pulmonary edema, and small bilateral pleural effusions. ACT 112: Negative or not required by law. Electronically signed by: Abilio Soto M.D. 04/29/2023 1:09 PM Code Status & VTE Plan VTE Prophylaxis Plan VTE Prophylaxis will be ordered: Yes Supervising Physician Co-Signing Physician Notes [place] is seen at the bedside. He reports he has had progressive swelling of his right leg worsening shortness of breath and difficulty breathing. He notes that he normally takes metolazone 3 times a week but ran out of this and did not have this refilled after returning home from his prior hospital admission and has not used any metolazone since his prior discharge. He has had increased weight gain, and leg swelling. He also did bump his left leg which has been very sore since with 2 areas of fluid which have developed. At bedside exam right lower extremity is with warmth and erythema although he notes that the patient erythema has not increased or expanded from his normal baseline. This was marked with a surgical pen at time of admission. He has no fever/chills/sweats, cellulitis treatment deferred as suspect lower extremity edema with venous stasis dermatitis however if white count/fever/worsening or expanding erythema is noted then start Rocephin at that time. Presentation is consistent with acute on chronic heart failure preserved ejection fraction, progressive in the setting of running out of of his prior metolazone which he uses 3 times weekly on average. Clinically is with increased edema, lungs have basilar crackles and light rales bilaterally. Patient has had his home Bumex doubled and continued twice daily. If inadequate UOP may add adjunct metolazone renal function is at 2.45 with a baseline 2.22.5, no ABDOULAYE on admission and he is clinically volume overloaded. History of DM 1 on insulin. BSG on admission 209, patient was ordered his home NPH in addition to sliding scale while in the ER. He had a [id number] hypoglycemic episode for which he was given juice. Pharmacy consulted for adjustments and assistance in management. Anion gap is normal, bicarb is normal, no evidence of DKA on admission. Resident Activity Tracking Resident Involvement: Resident Care Provided Care Provided: Adult Hospital Medicine (2) (HFpEF) heart failure with preserved ejection fraction Heart failure chronicity: chronic Qualified Code(s): I50.32 - Chronic diastolic (congestive) heart failure (3) Glaucoma Glaucoma type: associated with underlying disease Laterality: unspecified laterality Qualified Code(s): H42 - Glaucoma in diseases classified elsewhere (11) Hypertension Hypertension type: primary hypertension Qualified Code(s): I10 - Essential (primary) hypertension
[2023-04-29] MEDS ORDERED: DEXTROSE 50% 50 ML SYRINGE IV PRN (14:27)
[2023-04-29] MEDS ORDERED: CARBOHYDRATES FOR HYPOGLYCEMIA PO PRN (14:27)
[2023-04-29] MEDS ORDERED: GLUCAGON FOR INJ 1 MG VIAL SQ PRN (14:27)
[2023-04-29] MEDS ORDERED: GLUCOSE 40% GEL 15 GM TUBE PO PRN (14:27)
[2023-04-29] MEDS ORDERED: GLUCOSE 10 TAB/TUBE PO PRN (14:27)
[2023-04-29] MEDS ORDERED: ACETAMINOPHEN 325 MG TAB PO PRN (14:50)
[2023-04-29] MEDS ORDERED: ONDANSETRON 4 MG OD TAB PO PRN (14:50)
[2023-04-29] MEDS ORDERED: POLYETHYLENE (MIRALAX) 17 GM PACK PO PRN (14:50)
[2023-04-29] MEDS: LOSARTAN POTASSIUM 50 MG TAB PO SCH (16:34)
[2023-04-29] MEDS: dilTIAZem HCL 240 MG CAPCR PO SCH (16:34)
--- NOTE | 2023-04-29 17:21 | Emergency Department Note ---
History of Present Illness General Chief Complaint: Illness Stated Complaint: SOB, BRADYCARDIA Time Seen by Provider: 04/29/23 11:06 History of Present Illness Provider Complaint: shortness of breath Onset (ago): day(s) (3) Consistency/Duration: + progressively worsening Relieved By: + upright position Exacerbated By: + lying flat Known history of: congestive heart failure Associated symptoms: + orthopnea; no chest pain, no pain with inspiration, no fever, no cough, no wheezing, no sputum production, no lower extremity pain, no paresthesias, no hemoptysis, no syncope, no abdominal pain or no chest congestion Related Data Home oxygen amount: none Home Medications Medication Instructions Recorded Confirmed Type aspirin 325 mg tablet 325 mg PO QAM 12/27/17 04/29/23 History latanoprost 0.005 % eye drops 1 drp OPB HS 12/27/17 04/29/23 History (Xalatan) lancets (DeckDAQTouch UltraSoft #50 ea 12/12/18 04/20/23 History Lancets) cholecalciferol (vitamin D3) 50 2,000 units PO QAM 11/10/19 04/29/23 History mcg (2,000 unit) capsule (Vitamin D3) Wheelchair (Powered) #1 ea 11/22/19 04/20/23 Rx blood sugar diagnostic (OneTouch #100 ea 01/31/20 04/20/23 Rx Ultra Blue Test Strip) brimonidine 0.2 % eye drops 1 drp OPB BID 12/07/20 04/29/23 History dorzolamide 2 % eye drops 1 drp OPB BID 12/07/20 04/29/23 History timolol maleate 0.5 % eye gel 1 drp OPB BID 12/07/20 04/29/23 History forming solution ascorbic acid (vitamin C) 500 mg 500 mg PO QAM 02/19/21 04/29/23 History capsule potassium gluconate 595 mg (99 mg) 1,785 mg PO QAM 06/09/21 04/29/23 History tablet flash glucose scanning reader #1 ea 12/17/21 04/20/23 Rx (FreeStyle Farhad 2 [place]) flash glucose sensor (FreeStyle #2 ea 08/06/22 04/20/23 Rx Farhad 2 Sensor kit) trazodone 50 mg tablet 50 mg PO 10/12/22 04/29/23 History atorvastatin 80 mg tablet (Lipitor) 80 mg PO QAM #90 tabs 12/18/22 04/29/23 Rx losartan 100 mg tablet 100 mg PO QAM #90 tabs 12/23/22 04/29/23 Rx diltiazem HCl 240 mg 240 mg PO DAILY #90 caps 01/21/23 04/29/23 Rx capsule,extended release 24 hr calcitriol 0.5 mcg capsule 1 mcg (2 x 0.5 mcg) PO QAM #60 caps 01/25/23 04/29/23 Rx albuterol sulfate 90 mcg/actuation 2 puff inhalation Q6H PRN 02/10/23 04/29/23 Rx aerosol inhaler shortness of breath or wheezing #18 grams pen needle, diabetic 32 gauge x #400 ea 02/25/23 04/20/23 Rx 5/32" (BD Ultra-Fine [place] Pen Needle) ropinirole 1 mg tablet 3 mg (3 x 1 mg) PO HS #270 tabs 03/16/23 04/29/23 Rx bumetanide 2 mg tablet 4 mg (2 x 2 mg) PO BID #120 tabs 04/09/23 04/29/23 Rx insulin NPH isoph U-100 human 100 30 unit (0.3 mL) subcut BID #10 mL 04/19/23 04/29/23 Rx unit/mL subcutaneous suspension (Novolin N NPH U-100 Insulin isophane) insulin regular human 100 unit/mL 1 sliding scale dose subcut 04/19/23 04/29/23 Rx injection solution (Humulin R USEASDIRECTD #10 mL Regular U-100 Insulin) metolazone 5 mg tablet 5 mg PO UD PRN weight gain #14 tabs 04/19/23 04/29/23 Rx Allergies Allergy/AdvReac Type Severity Reaction Status Date / Time sulfamethoxazole Allergy Intermediate Rash Verified 03/11/23 11:24 trimethoprim Allergy Intermediate Rash Verified 03/11/23 11:24 Quinolones Allergy Mild Itchiness Verified 03/11/23 11:24 ofloxacin [From Floxin] Allergy itching Verified 03/11/23 11:24 Past Med/Surg History Medical History Influenza A virus subtype H1 2009 pandemic strain present Slow to wake up after anesthesia Acute kidney failure Anemia of chronic disease Wound of lower extremity RLE wound "improved" per 01/27/21 wound clinic visit ([facility]); surgeon aware of patient's wound hx per 01/2021 office visit note; "only has a little scab there now, keeps it covered to protect it." Diabetes, type I Chronic kidney disease, stage 4 (severe) Nephrotic syndrome HF clinic office visit (02/08/20): "referred to the program for assistance with management of diuretic resistant hypervolemia in the setting of nephrotic syndrome. His hypervolemia is not felt to be secondary to heart failure. He has been stable on Bumex 3 mg BID. His weight has been stable. Follow up labs demonstrate kidney function and electrolytes stable. Discussed consistent daily standing weights. I&Os. 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 GERD (gastroesophageal reflux disease) Mild obstructive sleep apnea "Mild" > no device Restless leg syndrome History of TIA (transient ischemic attack) ~2009>over his left eye, no residual symptoms Surgical History S/P arteriovenous (AV) fistula creation left>no currently having dialysis History of esophagogastroduodenoscopy (EGD) History of colonoscopy Status post below knee amputation of left lower extremity S/P lumbar laminectomy S/P foot surgery S/P eye surgery B/L x3 (for glaucoma) S/P CABG x 4 CABG x4 (2011), [facility]; f/u PCP History of lumbar discectomy History of tonsillectomy Family History Father , age 78 with prostate cancer Colorectal cancer Cardiovascular disease Diabetes Prostate cancer Grandmother (Maternal) Diabetes Mother , age 54 of throat cancer Throat cancer Denies family history of Ovarian cancer Myocardial infarction Breast cancer Social History Smoking Status: Never smoker Second Hand Exposure: No; Do You Dip or Chew Tobacco: No; Hx Alcohol Use: No Hx Substance Use: No Preferred Language: Swedish Communication Ability: Effective Visual Impairment: No Limitations Hearing Ability: Normal Hand Zipper Trimmer Required: No Beliefs That Will Affect Care: None marital status: / marital status details: lost August 2021 Current Living Situation: Alone current occupational status: retired current occupation: How many Children do You have: 2 other: Retired age 63-1/2. Feels Safe at Home: Yes Childhood Exposure to Second-Hand Smoke: No Diet: regular caffeine: No during the past year weight has: remained stable Dental Care, Regularly: Yes Physical Activity Frequency: Other Physical Activity Frequency Comment: limited d/t disability Seatbelt Use: always Sunscreen Use: Yes Assistive Devices: Scooter/Electric Scooter Physical Exam 2 Vital Signs: Vital Signs - 24 hr 04/29/23 10:42 04/29/23 11:43 04/29/23 11:52 Temperature 37.0 C Temperature Source Oral Pulse Rate 89 66 Pulse Rate [Apical ] 68 Pulse Rhythm Regular Pulse Rhythm [Apic al] Regular Pulse Strength [Ap ical] Normal Respiratory Rate 24 21 21 Respiratory Effort / Characteristics Non-Labored Sponta neous SOB on Exertion Respiratory Depth Normal Normal Blood Pressure 162/72 H Blood Pressure [Le ft Arm] Blood Pressure Subha n 102 Blood Pressure Subha n [Left Arm] Pulse Oximetry 87 L 99 99 Oxygen Delivery Me thod Room Air Nasal Cannula Nasal Cannula Oxygen Flow Rate 2 2 Sepsis Recent Feve r Within 48 Hours No Sepsis New/Unexpla ined Change in Men sus[place] Status N/A Sepsis Action Take n by Nursing No Action Required 04/29/23 11:59 04/29/23 13:00 Temperature Temperature Source Pulse Rate 66 Pulse Rate [Apical ] 66 Pulse Rhythm Pulse Rhythm [Apic al] Pulse Strength [Ap ical] Respiratory Rate 18 Respiratory Effort / Characteristics Respiratory Depth Blood Pressure Blood Pressure [Le ft Arm] 195/126 H Blood Pressure Subha n Blood Pressure Subha n [Left Arm] 149 Pulse Oximetry 96 Oxygen Delivery Me thod Nasal Cannula Oxygen Flow Rate 2 Sepsis Recent Feve r Within 48 Hours Sepsis New/Unexpla ined Change in Men susannah Status Sepsis Action Take n by Nursing Physical Exam: Physical Exam GENERAL: oriented to person, place, and time. appears well-developed and well- nourished. HENT: Exam performed. - Head: Normocephalic and atraumatic. EYES: Conjunctivae and EOM are normal. Right eye exhibits no discharge. Left eye exhibits no discharge. No scleral icterus. NECK: Normal range of motion. Neck supple. No JVD present. CV: Normal rate, regular rhythm, normal heart sounds and intact distal pulses. Palpable radial pulses bue. PULM/CHEST: Effort normal. Inspiratory rales at the bases. ABD: The abdomen is soft. There is no tenderness. NEURO: Motor and sensation grossly intact. SKIN: Skin is warm and dry. He is not diaphoretic. PSYCH: normal mood and affect. Behavior is normal. Judgment and thought content normal. Course Course 1106: The patient was evaluated in room B5. A complete history and physical exam was performed Cardiac monitoring: An order was placed for continuous cardiac monitoring. The monitor shows a rate of 70 with sinus rhythm interpreted by me Patient was hypoxic on room air supplemental oxygen 4 L. Nasal cannula was placed which improved patient's oxygen saturation. 1300: Vital signs stable on supplemental oxygen via nasal cannula. Labs show an elevated proBNP and troponin. Chest x-ray shows cardiomegaly with cephalization. Patient be given IV Bumex and admitted to the [facility] team Dr. Caputo Administered Medications Diltiazem HCl (Diltiazem Hcl 240 Mg Capcr) 240 mg PO DAILY [facility] Stop: 05/29/23 14:59 Last Admin: 04/29/23 16:34 Dose: 240 mg Documented By: ELDER Glucose (Glucose 40% Gel 15 Gm Tube) 15 - 30 gm PO UD PRN; Protocol PRN Reason: Hypoglycemia Protocol Stop: 05/29/23 14:26 Last Admin: 04/29/23 16:25 Dose: 30 gm Documented By: ELDER Losartan Potassium (Losartan Potassium 50 Mg Tab) 100 mg PO QAM [facility] Stop: 05/29/23 14:49 Last Admin: 04/29/23 16:34 Dose: 100 mg Documented By: ELDER Discontinued Medications Bumetanide 4 mg/ Syringe 16 mls @ 4 mls/min IV ONE ONE Stop: 04/29/23 13:04 Last Admin: 04/29/23 13:21 Dose: 4 mls/min Documented By: DARIEN Medical Decision Making Laboratory Data Attestation: I reviewed the patient's lab results. 04/29/23 11:40 04/29/23 11:40 Lab Results 04/29/23 04/29/23 Range/Units 11:40 13:17 WBC 7.35 (4.8-10.8) K/ul RBC 3.44 L (4.70-6.10) M/uL Hgb 10.5 L (14.0-18.0) g/dl Hct 33.0 L (42.0-52.0) % MCV 95.9 (80.0-100.0) fL MCH 30.5 (25.0-34.0) pg MCHC 31.8 L (32.0-36.0) g/dL RDW Std Deviation 51.2 H (36.4-46.3) fL RDW Coeff of Jose 14.9 H (11.5-14.5) % Plt Count 168 (130-400) K/uL MPV 12.9 H (9.4-12.4) fL Immature Gran % (Auto) 0.3 % Neut % (Auto) 75.4 % Lymph % (Auto) 9.8 % [place] % (Auto) 9.9 % Eos % (Auto) 3.9 % Baso % (Auto) 0.7 % Neut # (Auto) 5.54 (1.40-6.50) K/uL Lymph # (Auto) 0.72 L (1.20-3.40) K/uL [place] # (Auto) 0.73 H (0.11-0.59) K/uL Eos # (Auto) 0.29 (0.00-0.50) K/uL Baso # (Auto) 0.05 (0.00-0.20) K/uL Immature Gran # (Auto) 0.02 (0.01-0.20) K/uL PT 11.7 (9.0-12.0) Seconds INR 1.1 (0.9-1.1) APTT 29 (21-31) Seconds PTT Ratio 1.0 VBG pH 7.32 L (7.36-7.41) VBG pCO2 56 H (38-50) mmHg VBG pO2 41 mmHg VBG HCO3 29 mmol/L VBG O2 Saturation 63.4 % VBG Base Excess 1.6 mEq/L Sodium 139 (136-145) mmol/L Potassium 4.3 (3.5-5.1) mmol/L Chloride 103 (98-107) mmol/L Carbon Dioxide 29 (21-32) mmol/L Anion Gap 7 (3-11) BUN 61 H (6-23) mg/dl Creatinine 2.50 H (0.6-1.4) mg/dl Est Cr Clr Drug Dosing 33.3 ml/min Est GFR ( Amer) 28.3 ml/min Est GFR (Non-Af Amer) 24.4 ml/min BUN/Creatinine Ratio 24.4 H (10-20) Glucose 209 H (70-99(Fasting)) mg/dl Calcium 9.0 (8.6-10.3) mg/dl Troponin I High Sens 25.1 H 26.9 H (0-20) pg/ml B-Natriuretic Peptide 1099 H (0-100) pg/ml Lipase 29 (11-82) U/L Imaging Data Attestation: I personally reviewed and interpreted this imaging study as follows: My Impression: Chest x-ray: Chest x-ray shows cardiomegaly with cephalization Radiologist's Impression: Chest X-Ray 04/29/23 11:08 XR chest 1V portable HISTORY: Chest pain, nonspecific COMPARISON: Chest 04/15/2023. FINDINGS: No pneumothorax. The heart remains enlarged. There are poststernotomy changes. Perihilar interstitial/vascular thickening consistent with pulmonary edema. This is similar to the prior study. Small bilateral pleural effusions persist. Bibasilar linear densities favor compressive atelectasis from the pleural effusions. Otherwise, no new focal lung consolidations. IMPRESSION: No significant change in the cardiomegaly, pulmonary edema, and small bilateral pleural effusions. ACT 112: Negative or not required by law. Electronically signed by: Abilio Soto M.D. 04/29/2023 1:09 PM ECG Data Attestation: I personally reviewed and interpreted this ECG as follows: Interpretation: Sinus rhythm with rate of 68. AK 230 QRS 140 QTc 491. First-degree AV block present. No ST elevation or ST depression. Right bundle branch block present. [facility] Narrative 1106: The patient was evaluated in room B5. A complete history and physical exam was performed Cardiac monitoring: An order was placed for continuous cardiac monitoring. The monitor shows a rate of 70 with sinus rhythm interpreted by me Patient was hypoxic on room air supplemental oxygen 4 L. Nasal cannula was placed which improved patient's oxygen saturation. 1300: Vital signs stable on supplemental oxygen via nasal cannula. Labs show an elevated proBNP and troponin. Chest x-ray shows cardiomegaly with cephalization. Patient be given IV Bumex and admitted to the [facility] team Dr. Caputo Impression & Plan Hypoxia, Acute exacerbation of CHF (congestive heart failure) Discharge Plan Visit Data Chief Complaint: Illness Stated Complaint: SOB, BRADYCARDIA ED Provider: Joseph Thomas Discharge Problem: Hypoxia, Acute exacerbation of CHF (congestive heart failure) Patient Disposition: Admitted As Inpatient Discharge Instructions Interventions: ED Discharge Assessment Last Done: 04/29/23 14:30 Discharge Problem: Acute exacerbation of CHF (congestive heart failure) Qualifiers: Heart failure type: unspecified Qualified Code(s): I50.9 - Heart failure, unspecified
[2023-04-29] MEDS: BUMETANIDE 4 MG in SYRINGE 0 ML IV SCH (18:31)
[2023-04-29] MEDS: INSULIN ASPART PER UNIT CHARGE SC SCH ×2 (19:27→20:43)
[2023-04-29] MEDS ORDERED: INSULIN HUMAN NPH SQ SCH (21:00)
[2023-04-29] MEDS: HEPARIN SOD 5,000 UNIT/0.5 ML VIAL SQ SCH (21:06)
[2023-04-29] MEDS: rOPINIRole HCL 1 MG TABLET PO SCH (21:07)
[2023-04-29] MEDS: traZODone HCL 50 MG TAB PO SCH (21:07)
[2023-04-29] MEDS: LATANOPROST 0.005% OP SOLN 2.5 ML BTL OPB SCH (21:08)
[2023-04-29] MEDS: BRIMONIDINE TARTRATE 0.2% 5ML OPB SCH (21:08)
[2023-04-29] MEDS: DORZOLAMIDE HCL 2% OPH SOLN 10 ML BTL OPB SCH (21:08)
[2023-04-29] MEDS: TIMOLOL GFS 0.5% OPH SOLN 74 DROPS/5 ML BTL OPB SCH (21:08)
[2023-04-30] MEDS: INSULIN ASPART PER UNIT CHARGE SC SCH ×6 (00:17→21:23)
[2023-04-30 07:33] LABS: Basophils # (auto) 0.04 K/uL (0.00-0.20); Basophils % (auto) 0.7 %; Eosinophils # (auto) 0.31 K/uL (0.00-0.50); Eosinophils % (auto) 5.1 %; Hematocrit (blood only) 30.5 % (42.0-52.0); Immature Granulocytes # (auto) 0.01 K/uL (0.01-0.20); Immature Granulocytes % (auto) 0.2 %; Lymphocytes # (auto) 0.71 K/uL (1.20-3.40); Lymphocytes % (auto) 11.8 %; Mean Corpuscular Hemoglobin 30.5 pg (25.0-34.0); Mean Corpuscular Hgb Conc 32.8 g/dL (32.0-36.0); Mean Platelet Volume 12.6 fL (9.4-12.4); Monocytes # (auto) 0.55 K/uL (0.11-0.59); Monocytes % (auto) 9.1 %; Neutrophils # (auto) 4.42 K/uL (1.40-6.50); Neutrophils % (auto) 73.1 %; Platelet Count 168 K/uL (130-400); RDW Coefficient of Variation 14.7 % (11.5-14.5); RDW Standard Deviation 50.1 fL (36.4-46.3); Red Blood Count 3.28 M/uL (4.70-6.10); White Blood Count 6.04 K/ul (4.8-10.8)
[2023-04-30] MEDS ORDERED: PHARMACY GLYCEMIC MGMT CONSULT PRN (07:51)
[2023-04-30 08:13] LABS: BUN Creatinine Ratio 23.3 (10-20); Calcium 8.4 mg/dl (8.6-10.3); Creatinine Clr Calc Pharmacy 35.3 ml/min; Est GFR (African American) 30.3 ml/min; Est GFR (Non-African American) 26.1 ml/min; Magnesium 2.3 mg/dl (1.7-2.4)
[2023-04-30] MEDS: ASPIRIN 325 MG ECTAB PO SCH (08:42)
[2023-04-30] MEDS: dilTIAZem HCL 240 MG CAPCR PO SCH (08:42)
[2023-04-30] MEDS: ATORVASTATIN 40 MG TAB PO SCH (08:42)
[2023-04-30] MEDS: LOSARTAN POTASSIUM 50 MG TAB PO SCH (08:42)
[2023-04-30] MEDS: DORZOLAMIDE HCL 2% OPH SOLN 10 ML BTL OPB SCH ×2 (08:43→21:44)
[2023-04-30] MEDS: BRIMONIDINE TARTRATE 0.2% 5ML OPB SCH ×2 (08:43→21:44)
[2023-04-30] MEDS: TIMOLOL GFS 0.5% OPH SOLN 74 DROPS/5 ML BTL OPB SCH ×2 (08:43→21:44)
[2023-04-30] MEDS: BUMETANIDE 4 MG in SYRINGE 0 ML IV SCH ×2 (08:43→17:40)
[2023-04-30] MEDS: HEPARIN SOD 5,000 UNIT/0.5 ML VIAL SQ SCH ×2 (10:04→21:43)
[2023-04-30] MEDS: INSULIN HUMAN NPH SC SCH ×2 (10:04→18:44)
--- NOTE | 2023-04-30 11:11 | Pharmacy Report ---
Pharmacy Glycemic Short Note 2 - Date of Service April 30, 2023 - Glycemic Short BSG Results (Last 24 hours): 04/29/23 04/29/23 04/29/23 11:40 14:43 16:22 Glucose 209 H POC Glucose 55 L* 44 L* 04/29/23 04/29/23 04/29/23 16:51 18:36 23:54 Glucose POC Glucose 78 154 H 77 04/30/23 04/30/23 04/30/23 03:10 03:30 04:05 Glucose POC Glucose 68 L* 92 98 04/30/23 04/30/23 06:45 08:14 Glucose 100 H POC Glucose 128 H OUTPATIENT ANTIDIABETIC REGIMEN: * Insulin NPH 30 units BID (switched from [place] due to cost) * insulin regular SS (max 25 units per day per Rx) * HbA1c 9.1% (03/31/23) ASSESSMENT: * [place] is a 72 YOM admitted with shortness of breath and a history of T1DM. Pharmacy has been consulted to assist with [facility]. * Hypoglycemic event overnight, treated with 15 gm CHO, AM BSG (non-fasting due to CHO) within goal range. Suspect bedtime administration of NPH as cause. Also hypoglycemic on admission, unclear cause. * Will continue home NPH to mimic outpatient insulin usage, but at significantly reduced dose.. He has required approximately 20 units of basal insulin on previous admissions, will begin there twice daily with breakfast/dinner and titrate as indicated. * He has required Novolog parameters at around a weight based stress of 3 on previous admissions. Will start conservatively around a weight based stress of 2 and adjust as indicated. May have different requirements this admission due to basal insulin change. * Patient reported he has overnight lows at home, will trial a loosen correction factor carbohydrate ratio at bedtime. * He does have CKD which may be contributing to overnight lows with reduced clearance of insulin. PLAN FOR INPATIENT GLYCEMIC CONTROL: * Hold outpatient oral diabetes medications * Basal insulin * Insulin NPH 10 units SQ BID with meals (call pharmacist if not eating) * Bolus insulin- mealtime * NovoLog per scale AC * Goal Range: Low 120 mg/dL - High 160 mg/dL * Correction Factor: 25 mg/dL/unit * Nutritional / Prandial insulin per carb ratio of 1 unit per 8 grams CHO consumed * Bolus insulin- bedtime * NovoLog per scale HS or Q6hrs while NPO * Goal Range: Low 120 mg/dL - High 160 mg/dL * Correction Factor: 50 mg/dL/unit * Nutritional / Prandial insulin per carb ratio of 1 unit per 15 grams CHO consumed
[2023-04-30] MEDS ORDERED: INSULIN ASPART PER UNIT CHARGE SC SCH (11:30)
--- NOTE | 2023-04-30 12:38 | Hospitalist Progress Note ---
Date of Service April 30, 2023 Assessment & Plan (1) Acute on chronic diastolic (congestive) heart failure: Plan: volume overload 2nd to acute/chronic diastolic CHF + CKD/nephrotic syndrome. cont bumex 4mg IV BID. daily labs. fluid restrict 1800cc/day. with his depression I am uncertain about med compliance, dietary compliance, etc. (2) Nephrotic syndrome: Plan: 2-3+ protein on u/a's. follows with [facility]. certainly contributes to volume overload/edema. cont losartan. BMP am. diurese. (3) Generalized pruritus: Plan: 2nd to CKD/nephrotic syndrome? 2nd to xerosis? 2nd to anxiety? combination of factors? atarax 10mg q6h prn itching. triamcinolone 0.1% cream - TID in thin amounts to worst areas. eucerin cream TID for dry skin. of note - LFTs wnl. no polycythemia. (4) Glaucoma: Plan: cont home drops (5) Depression: Plan: will ask Behavioral health to see in consult he has had depression for 2-3 years also with severe loneliness, insomnia, etc perhaps psych can speak with him about med trial -- right now he was not open to such check TSH check B12 (6) Chronic kidney disease, stage 4 (severe): Plan: baseline Cr about 2.5 BMP am (7) Insomnia: Plan: cont trazodone consider dose increase if needed (8) S/P CABG x 4: Plan: 2011 (9) CAD, multiple vessel: Plan: no ischemic symptoms at this time cont asa cont statin (10) GERD (gastroesophageal reflux disease): Plan: not on meds for such (11) Restless leg syndrome: Plan: ropinirole HS (12) Hypertension: Plan: cont losartan cont diltiazem bumex (13) Dyslipidemia: Plan: cont statin (14) 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, with long-term current use of insulin: Plan: pharmacy glycemic team consulted for management basal-bolus insulin BSGs ac/hs DM diet a1c 9.1% in 03/2023 (15) Blister of leg, right: Plan: optifoam dressings appreciate wound care consultation (16) Status post below knee amputation of left lower extremity: Plan: no issues (17) Candidal diaper rash: Plan: miconazole powder TID to rash in groin Plan son updated by phone this evening will need PT/OT Admission and Anticipated Discharge Date Admission Date: April 29, 2023 Subjective patient with NSR on tele overnight multiple complaints including - 1. orthopnea, PND, and FRIEDMAN with little exertion at home; has been sleeping in a recliner at home; "gasps" for air at night-time; ongoing edema of RLE; dyspnea is improved since coming to hospital 2. generalized pruritis - present 4-6 weeks or longer; arms, legs, upper back, torso/abdominal wall all affected; nothing on hands/feet; no scrotal pruritis; skin is generally dry. Uses dial in the shower at home 3. depression - patient reports his in 2020; they were 47 years; he lives alone in a large house in [facility]; he does see his son who lives in [place] on a regular basis. He stated multiple times how much he misses her and was tearful throughout the visit. Has never had counseling via psychologist or taken antidepressants but has spoken to his automotive brake adjuster at his [facility] about his mental health He was open to talking with our behavioral health team while here He was not open, however, to initiating an anti-depressant Review of Systems Review of Systems: gen - no fevers cv - no chest pain pulm - mild cough GI - no abd pain Physical Exam Physical Exam: gen - obese, NAD; very tearful skin - no generalized rash; skin is very dry on arms, legs, and especially his torso. There is candidal rash in his groin. Hands/feet spared. NO BURROWS to suggest scabies. NO hives. Right aragon -- venous stasis changes; blister is covered with optifoam on R aragon. neck - no obvious JVD mouth - MMM heart - RRR, s1 s2, 2/6 KHARI LSB lungs - b/l basilar rales abd - soft NT ND BS+ ext - 2+ edema RLE extending to the thigh; left AKA; pulses R foot 2+ psych - depressed, tearful; a/o x 3 Results & Data Results & Data Vital Signs (Past 12 Hours) Vital Signs Temp Pulse Pulse Resp BP Pulse Ox O2 Del Method 04/30/23 11:51 36.4 C L 60 16 137/72 96 Nasal Cannula 04/30/23 10:00 Nasal Cannula 04/30/23 09:15 62 04/30/23 07:47 36.6 C 74 14 165/82 H 96 Nasal Cannula 04/30/23 03:07 36.5 C 61 18 169/81 H 96 Nasal Cannula O2 Flow Rate 04/30/23 11:51 2 04/30/23 10:00 2 04/30/23 09:15 04/30/23 07:47 2 04/30/23 03:07 2 Laboratory Results Laboratory Results - last 24 hr 04/29/23 04/30/23 04/30/23 23:54 03:10 03:30 WBC RBC Hgb Hct MCV MCH MCHC RDW Std Deviation RDW Coeff of Jose Plt Count MPV Immature Gran % (Auto) Neut % (Auto) Lymph % (Auto) [place] % (Auto) Eos % (Auto) Baso % (Auto) Neut # (Auto) Lymph # (Auto) [place] # (Auto) Eos # (Auto) Baso # (Auto) Immature Gran # (Auto) Sodium Potassium Chloride Carbon Dioxide Anion Gap BUN Creatinine Est Cr Clr Drug Dosing Est GFR ( Amer) Est GFR (Non-Af Amer) BUN/Creatinine Ratio Glucose POC Glucose 77 68 L* 92 Calcium Magnesium 04/30/23 04/30/23 04/30/23 04:05 06:45 08:14 WBC 6.04 RBC 3.28 L Hgb 10.0 L Hct 30.5 L MCV 93.0 MCH 30.5 MCHC 32.8 RDW Std Deviation 50.1 H RDW Coeff of Jose 14.7 H Plt Count 168 MPV 12.6 H Immature Gran % (Auto) 0.2 Neut % (Auto) 73.1 Lymph % (Auto) 11.8 [place] % (Auto) 9.1 Eos % (Auto) 5.1 Baso % (Auto) 0.7 Neut # (Auto) 4.42 Lymph # (Auto) 0.71 L [place] # (Auto) 0.55 Eos # (Auto) 0.31 Baso # (Auto) 0.04 Immature Gran # (Auto) 0.01 Sodium 139 Potassium 4.0 Chloride 104 Carbon Dioxide 29 Anion Gap 6 BUN 55 H Creatinine 2.36 H Est Cr Clr Drug Dosing 35.3 Est GFR ( Amer) 30.3 Est GFR (Non-Af Amer) 26.1 BUN/Creatinine Ratio 23.3 H Glucose 100 H POC Glucose 98 128 H Calcium 8.4 L Magnesium 2.3 04/30/23 04/30/23 12:38 17:03 WBC RBC Hgb Hct MCV MCH MCHC RDW Std Deviation RDW Coeff of Jose Plt Count MPV Immature Gran % (Auto) Neut % (Auto) Lymph % (Auto) [place] % (Auto) Eos % (Auto) Baso % (Auto) Neut # (Auto) Lymph # (Auto) [place] # (Auto) Eos # (Auto) Baso # (Auto) Immature Gran # (Auto) Sodium Potassium Chloride Carbon Dioxide Anion Gap BUN Creatinine Est Cr Clr Drug Dosing Est GFR ( Amer) Est GFR (Non-Af Amer) BUN/Creatinine Ratio Glucose POC Glucose 253 H 106 H Calcium Magnesium PG Care Time/CCT Total # of Minutes Spent Total Time Spent with Patient: Total time spent is greater than 50% in coordination of care (as documented) at patient's floor/unit and/or counseling patient: Coding Level of Care Code 88759 SUB INP/OBS CARE 3/50MIN Diagnoses Acute on chronic diastolic (congestive) heart failure I50.33 Nephrotic syndrome N04.9 Generalized pruritus L29.9 Glaucoma associated with underlying disease, unspecified laterality H42 Glaucoma type: associated with underlying disease Laterality: unspecified laterality Depression F32.A Chronic kidney disease, stage 4 (severe) N18.4 Insomnia G47.00 S/P CABG x 4 Z95.1 CAD, multiple vessel I25.10 GERD (gastroesophageal reflux disease) K21.9 Restless leg syndrome G25.81 Primary hypertension I10 Hypertension type: primary hypertension Dyslipidemia E78.5 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, with long-term current use of insulin E10.319; E10.65 Blister of leg, right S80.821A Status post below knee amputation of left lower extremity Z89.512 Candidal diaper rash B37.2; L22 (4) Glaucoma Glaucoma type: associated with underlying disease Laterality: unspecified laterality Qualified Code(s): H42 - Glaucoma in diseases classified elsewhere (12) Hypertension Hypertension type: primary hypertension Qualified Code(s): I10 - Essential (primary) hypertension
[2023-04-30] MEDS: MICONAZOLE NITRATE POWDER 85 GM EXT SCH ×2 (14:05→21:43)
[2023-04-30] MEDS: EUCERIN CR 120 GM JAR EXT SCH ×2 (14:05→21:43)
[2023-04-30] MEDS: TRIAMCINOLONE ACET 0.1% CR 80 GM TUBE EXT SCH ×2 (14:05→21:45)
[2023-04-30] MEDS: rOPINIRole HCL 1 MG TABLET PO SCH (21:43)
[2023-04-30] MEDS: LATANOPROST 0.005% OP SOLN 2.5 ML BTL OPB SCH (21:44)
[2023-04-30] MEDS: traZODone HCL 50 MG TAB PO SCH (21:48)
--- NOTE | 2023-05-01 05:57 | Electrocardiogram Report ---
Test Reason : Blood Pressure : / mmHG Vent. Rate : 068 BPM Atrial Rate : 068 BPM P-R Int : 230 ms QRS Dur : 140 ms QT Int : 462 ms P-R-T Axes : 079 063 046 degrees QTc Int : 491 ms Sinus rhythm with 1st degree A-V block Right bundle branch block T wave abnormality, consider lateral ischemia Abnormal ECG When compared with ECG of 15-APR-2023 00:09, No significant change Confirmed by Umair Krause ([id number]) on 05/01/2023 5:57:31 AM Referred By: REFERRED SELF Confirmed By:Umair Krause
[2023-05-01] MEDS: DORZOLAMIDE HCL 2% OPH SOLN 10 ML BTL OPB SCH ×2 (09:52→20:42)
[2023-05-01] MEDS: TIMOLOL GFS 0.5% OPH SOLN 74 DROPS/5 ML BTL OPB SCH ×2 (09:53→20:42)
[2023-05-01] MEDS: BUMETANIDE 4 MG in SYRINGE 0 ML IV SCH ×2 (09:53→17:51)
[2023-05-01] MEDS: BRIMONIDINE TARTRATE 0.2% 5ML OPB SCH ×2 (09:53→20:42)
[2023-05-01] MEDS: ATORVASTATIN 40 MG TAB PO SCH (09:53)
[2023-05-01] MEDS: dilTIAZem HCL 240 MG CAPCR PO SCH (09:54)
[2023-05-01] MEDS: HEPARIN SOD 5,000 UNIT/0.5 ML VIAL SQ SCH ×2 (09:54→20:44)
[2023-05-01] MEDS: LOSARTAN POTASSIUM 50 MG TAB PO SCH (09:54)
[2023-05-01] MEDS: INSULIN ASPART PER UNIT CHARGE SC SCH ×4 (09:54→20:54)
[2023-05-01] MEDS: INSULIN HUMAN NPH SC SCH ×2 (09:54→17:51)
[2023-05-01] MEDS: ASPIRIN 325 MG ECTAB PO SCH (09:54)
[2023-05-01] MEDS: MICONAZOLE NITRATE POWDER 85 GM EXT SCH ×3 (09:55→20:49)
[2023-05-01] MEDS: TRIAMCINOLONE ACET 0.1% CR 80 GM TUBE EXT SCH ×3 (09:55→20:47)
[2023-05-01] MEDS: EUCERIN CR 120 GM JAR EXT SCH ×3 (09:55→20:46)
[2023-05-01 10:50] LABS: BUN Creatinine Ratio 21.8 (10-20); Creatinine Clr Calc Pharmacy 32.7 ml/min; Est GFR (African American) 27.3 ml/min; Est GFR (Non-African American) 23.6 ml/min; Potassium 5.1 mmol/L (3.5-5.1)
[2023-05-01 11:12] LABS: Folate (Folic Acid),Ser orPlas 17.8 ng/ml (>5.38)
[2023-05-01 11:30] LABS: Thyroid Stimulating Hormone 1.16 uIu/ml (0.300-4.500)
--- NOTE | 2023-05-01 15:20 | Hospitalist Progress Note ---
Date of Service May 01, 2023 Assessment & Plan (1) Acute on chronic diastolic (congestive) heart failure: Plan: volume overload 2nd to acute/chronic diastolic CHF + CKD/nephrotic syndrome. improving. cont bumex 4mg IV BID. daily labs. fluid restrict 1800cc/day. TSH noted to be wnl. (2) Nephrotic syndrome: Plan: 2-3+ protein on u/a's. follows with [facility] Nephrology. contributing to volume overload/edema. cont losartan. cont to diurese. BMP am. (3) Generalized pruritus: Plan: 2nd to CKD/nephrotic syndrome? 2nd to xerosis? 2nd to anxiety? combination of factors? cont atarax 10mg q6h prn itching. triamcinolone 0.1% cream - TID in thin amounts to worst areas. eucerin cream TID for dry skin. of note - LFTs wnl. no polycythemia. I don't see evidence of scabies - groin, hands, feet all spared. (4) Glaucoma: Plan: cont home drops (5) Depression: Plan: appreciate Behavioral health consult he has had depression for 2-3 years also with severe loneliness, insomnia, etc TSH wnl B12 low-normal --> will supplement pt still not open to med trial (6) Chronic kidney disease, stage 4 (severe): Plan: baseline Cr about 2.5 stable Cr today BMP am (7) Insomnia: Plan: cont trazodone (8) S/P CABG x 4: Plan: 2011 (9) CAD, multiple vessel: Plan: no ischemic symptoms at this time cont asa cont statin (10) GERD (gastroesophageal reflux disease): Plan: not on meds for such (11) Restless leg syndrome: Plan: ropinirole HS (12) Hypertension: Plan: cont losartan cont diltiazem cont bumex (13) Dyslipidemia: Plan: cont statin (14) 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, with long-term current use of insulin: Plan: pharmacy glycemic team consulted for management - appreciate their assistance cont basal-bolus insulin BSGs ac/hs DM diet a1c 9.1% in 03/2023 (15) Blister of leg, right: Plan: optifoam dressings appreciate wound care consultation (16) Status post below knee amputation of left lower extremity: Plan: no issues (17) Candidal diaper rash: Plan: miconazole powder TID to rash in groin (18) Chronic seborrheic dermatitis: Plan: HC 2.5% cream - TID in thin amounts of affected areas would benefit from prescription strength nizoral shampoo at d/c Plan son updated by phone yesterday evening will need PT/OT progressing nicely Admission and Anticipated Discharge Date Admission Date: April 29, 2023 Subjective patient reports that his dyspnea and orthopnea/PND are all improved he spoke with our behavioral health team he enjoyed that visit and their conversation he was asked about anti-depressant use and he is still very much opposed to taking one generalized itching IS better but not resolved Review of Systems Review of Systems: cv - no chest pain pulm - no dyspnea at rest GI - no N/V/pain skin - ongoing itching along with mild discomfort of RLE aragon Physical Exam Physical Exam: gen - obese, NAD, still tearful at times skin - no generalized rash; skin is very dry on arms, legs, and torso. still no rash of Hands/feet. NO BURROWS to suggest scabies. NO hives. Right aragon -- venous stasis changes; blister on aragon has popped open; no cellulitis of the RLE. seborrhea of scalp, between the eyes, nasal region, chin. neck - no obvious JVD mouth - MMM heart - RRR, s1 s2, 2/6 KHARI LSB lungs - b/l basilar rales improved abd - soft NT ND BS+ ext - 1-2+ edema RLE extending to the thigh; left AKA; pulses R foot 2+ psych - a/o x 3 Results & Data Results & Data Vital Signs (Past 12 Hours) Vital Signs Temp Pulse Pulse Resp BP Pulse Ox O2 Del Method 05/01/23 12:01 36.3 C L 71 16 158/73 H 90 Room Air 05/01/23 08:00 36.4 C L 73 16 170/72 H 90 Room Air 05/01/23 07:30 61 05/01/23 04:04 36.7 C 67 18 143/61 H 93 Nasal Cannula O2 Flow Rate 05/01/23 12:01 05/01/23 08:00 05/01/23 07:30 05/01/23 04:04 2 Laboratory Results Laboratory Results - last 24 hr 04/30/23 04/30/2324 17:03 20:27 01:03 Sodium Potassium Chloride Carbon Dioxide Anion Gap BUN Creatinine Est Cr Clr Drug Dosing Est GFR ( Amer) Est GFR (Non-Af Amer) BUN/Creatinine Ratio Glucose POC Glucose 106 H 85 97 Calcium Vitamin B12 Folate TSH 05/01/23 05/01/23 05/01/23 08:37 09:56 12:19 Sodium 139 Potassium 5.1 D Chloride 102 Carbon Dioxide 29 Anion Gap 8 BUN 56 H Creatinine 2.57 H Est Cr Clr Drug Dosing 32.7 Est GFR ( Amer) 27.3 Est GFR (Non-Af Amer) 23.6 BUN/Creatinine Ratio 21.8 H Glucose 294 H POC Glucose 137 H 284 H Calcium 9.0 Vitamin B12 327 Folate 17.80 TSH 1.160 PG Care Time/CCT Total # of Minutes Spent Total Time Spent with Patient: Total time spent is greater than 50% in coordination of care (as documented) at patient's floor/unit and/or counseling patient: Coding Level of Care Code 47095 SUB INP/OBS CARE 3/50MIN Diagnoses Acute on chronic diastolic (congestive) heart failure I50.33 Nephrotic syndrome N04.9 Generalized pruritus L29.9 Glaucoma associated with underlying disease, unspecified laterality H42 Glaucoma type: associated with underlying disease Laterality: unspecified laterality Depression F32.A Chronic kidney disease, stage 4 (severe) N18.4 Insomnia G47.00 S/P CABG x 4 Z95.1 CAD, multiple vessel I25.10 GERD (gastroesophageal reflux disease) K21.9 Restless leg syndrome G25.81 Primary hypertension I10 Hypertension type: primary hypertension Dyslipidemia E78.5 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, with long-term current use of insulin E10.319; E10.65 Blister of leg, right S80.821A Status post below knee amputation of left lower extremity Z89.512 Candidal diaper rash B37.2; L22 Chronic seborrheic dermatitis L21.9 (4) Glaucoma Glaucoma type: associated with underlying disease Laterality: unspecified laterality Qualified Code(s): H42 - Glaucoma in diseases classified elsewhere (12) Hypertension Hypertension type: primary hypertension Qualified Code(s): I10 - Essential (primary) hypertension
[2023-05-01] MEDS: HYDROCORTISONE 2.5% CR 30 GM TUBE EXT SCH (20:41)
[2023-05-01] MEDS: hydrOXYzine HCl 10 MG TAB PO PRN (20:41)
[2023-05-01] MEDS: LATANOPROST 0.005% OP SOLN 2.5 ML BTL OPB SCH (20:43)
[2023-05-01] MEDS: rOPINIRole HCL 1 MG TABLET PO SCH (20:49)
[2023-05-01] MEDS: traZODone HCL 50 MG TAB PO SCH (20:58)
[2023-05-02 08:09] LABS: BUN Creatinine Ratio 23.2 (10-20); Calcium 8.6 mg/dl (8.6-10.3); Creatinine Clr Calc Pharmacy 33.6 ml/min; Est GFR (African American) 28.3 ml/min; Est GFR (Non-African American) 24.4 ml/min; Potassium 4.2 mmol/L (3.5-5.1)
[2023-05-02] MEDS: BUMETANIDE 4 MG in SYRINGE 0 ML IV SCH ×2 (09:29→18:03)
[2023-05-02] MEDS: INSULIN ASPART PER UNIT CHARGE SC SCH ×4 (09:29→20:46)
[2023-05-02] MEDS: LOSARTAN POTASSIUM 50 MG TAB PO SCH (09:30)
[2023-05-02] MEDS: ATORVASTATIN 40 MG TAB PO SCH (09:30)
[2023-05-02] MEDS: dilTIAZem HCL 240 MG CAPCR PO SCH (09:30)
[2023-05-02] MEDS: BRIMONIDINE TARTRATE 0.2% 5ML OPB SCH ×2 (09:30→20:53)
[2023-05-02] MEDS: INSULIN HUMAN NPH SC SCH ×3 (09:30→18:02)
[2023-05-02] MEDS: CYANOCOBALAMIN (B-12) 500 MCG TABLET PO SCH (09:30)
[2023-05-02] MEDS: HEPARIN SOD 5,000 UNIT/0.5 ML VIAL SQ SCH ×2 (09:31→20:54)
[2023-05-02] MEDS: DORZOLAMIDE HCL 2% OPH SOLN 10 ML BTL OPB SCH ×2 (09:31→20:52)
[2023-05-02] MEDS: EUCERIN CR 120 GM JAR EXT SCH ×3 (09:31→20:55)
[2023-05-02] MEDS: MICONAZOLE NITRATE POWDER 85 GM EXT SCH ×3 (09:32→20:56)
[2023-05-02] MEDS: TIMOLOL GFS 0.5% OPH SOLN 74 DROPS/5 ML BTL OPB SCH ×2 (09:32→20:52)
[2023-05-02] MEDS: HYDROCORTISONE 2.5% CR 30 GM TUBE EXT SCH ×3 (09:32→20:52)
[2023-05-02] MEDS: TRIAMCINOLONE ACET 0.1% CR 80 GM TUBE EXT SCH ×3 (09:32→20:53)
[2023-05-02] MEDS: ASPIRIN 325 MG ECTAB PO SCH (12:06)
--- NOTE | 2023-05-02 13:38 | Pharmacy Report ---
Pharmacy Glycemic Short Note 2 - Date of Service May 02, 2023 - Glycemic Short BSG Results (Last 24 hours): 05/01/23 05/01/23 05/02/23 17:17 20:05 06:27 Glucose 166 H POC Glucose 103 H 124 H 05/02/23 05/02/23 08:14 12:06 Glucose POC Glucose 197 H 213 H OUTPATIENT ANTIDIABETIC REGIMEN: * Insulin NPH 30 units BID (switched from Toujeo due to cost) * insulin regular SS (max 25 units per day per Rx) * HbA1c 9.1% (03/31/23) ASSESSMENT: 05/02 * Patient received total of 55 units of insulin yesterday, of which 20 units were NPH * Fasting BSG 166 mg/dL - will increase AM NPH to help with higher BSG values around lunch time and tighten CR * BSGs tend to trend down throughout the day, will have looser parameters at dinner and HS * Continue with same NPH at dinner for now, may need to titrate up with AM fasting trending upward 04/30 * [place] is a 72 YOM admitted with shortness of breath and a history of T1DM. Pharmacy has been consulted to assist with glycemic management while inpatient. * Hypoglycemic event overnight, treated with 15 gm CHO, AM BSG (non-fasting due to CHO) within goal range. Suspect bedtime administration of NPH as cause. Also hypoglycemic on admission, unclear cause. * Will continue home NPH to mimic outpatient insulin usage, but at significantly reduced dose.. He has required approximately 20 units of basal insulin on previous admissions, will begin there twice daily with breakfast/dinner and titrate as indicated. * He has required Novolog parameters at around a weight based stress of 3 on previous admissions. Will start conservatively around a weight based stress of 2 and adjust as indicated. May have different requirements this admission due to basal insulin change. * Patient reported he has overnight lows at home, will trial a loosen correction factor carbohydrate ratio at bedtime. * He does have CKD which may be contributing to overnight lows with reduced clearance of insulin. PLAN FOR INPATIENT GLYCEMIC CONTROL: * Hold outpatient oral diabetes medications * Basal insulin * Insulin NPH 12 units QAM * NPH 10 units daily with dinner * Bolus insulin- mealtime * NovoLog per scale AC * Goal Range: Low 120 mg/dL - High 160 mg/dL * Correction Factor: 20 mg/dL/unit * Nutritional / Prandial insulin per carb ratio of 1 unit per 6 grams CHO consumed * Bolus insulin- bedtime * NovoLog per scale HS or Q6hrs while NPO * Goal Range: Low 120 mg/dL - High 160 mg/dL * Correction Factor: 50 mg/dL/unit * Nutritional / Prandial insulin per carb ratio of 1 unit per 15 grams CHO consumed
--- NOTE | 2023-05-02 19:09 | Hospitalist Progress Note ---
Date of Service May 02, 2023 Assessment & Plan (1) Acute on chronic diastolic (congestive) heart failure: Plan: volume overload 2nd to acute/chronic diastolic CHF + CKD/nephrotic syndrome. improving. cont bumex 4mg IV BID. daily labs. fluid restrict 1800cc/day. TSH noted to be wnl. daily weights. we discussed the importance of daily weights at home. (2) Nephrotic syndrome: Plan: 2-3+ protein on u/a's. [place] [facility] [place]. certainly contributing to volume overload/edema. cont losartan. cont to diurese. BMP am. (3) Generalized pruritus: Plan: improving with triamcinolone 0.1% cream - TID in thin amounts to worst areas. eucerin cream TID for dry skin. cont atarax prn. of note - LFTs wnl. no polycythemia. I don't see evidence of scabies - groin, hands, feet all spared. I don't see burrowing in any location. (4) Glaucoma: Plan: cont home drops (5) Depression: Plan: appreciate Behavioral health consult he has had depression for 2-3 years also with severe loneliness, insomnia, etc TSH wnl B12 low-normal --> will supplement pt still not open to med trial (6) Chronic kidney disease, stage 4 (severe): Plan: baseline Cr about 2.5 stable Cr once again today BMP am (7) Insomnia: Plan: cont trazodone (8) S/P CABG x 4: Plan: 2011 (9) CAD, multiple vessel: Plan: no ischemic symptoms at this time cont asa cont statin (10) GERD (gastroesophageal reflux disease): Plan: not on meds for such (11) Restless leg syndrome: Plan: ropinirole HS (12) Hypertension: Plan: cont losartan cont diltiazem cont bumex (13) Dyslipidemia: Plan: cont statin (14) 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, with long-term current use of insulin: Plan: pharmacy glycemic team consulted for management - appreciate their assistance cont basal-bolus insulin BSGs ac/hs DM diet control is very satisfactory a1c 9.1% in 03/2023 (15) Blister of leg, right: Plan: optifoam dressings appreciate wound care consultation no evidence of cellulitis on right aragon (16) Status post below knee amputation of left lower extremity: Plan: no issues he has prosthetic leg in the room (17) Candidal diaper rash: Plan: miconazole powder TID to rash in groin (18) Chronic seborrheic dermatitis: Plan: HC 2.5% cream - TID in thin amounts of affected areas would benefit from prescription strength nizoral shampoo at d/c Plan son updated by phone earlier this weekend PT/OT - passed PT eval today progressing nicely Admission and Anticipated Discharge Date Admission Date: April 29, 2023 Subjective patient feeling better dyspnea much improved no PND/orthopnea edema improving pruritis improved used atarax last pm and this helped his sleep/itching no new issues tele - NSR except 1 run of brief NSVT Review of Systems Review of Systems: gen - feeling better each day cv - no chest pain pulm - dyspnea much improved GI - no abd pain/nausea/emesis Physical Exam Physical Exam: gen - obese, NAD, looks good today skin - no generalized rash; skin is very dry on arms, legs, and torso. Right aragon -- venous stasis changes; no cellulitis of the RLE. seborrhea of scalp, between the eyes, nasal region, chin. neck - no obvious JVD mouth - MMM heart - RRR, s1 s2, 2/6 KHARI LSB lungs - b/l basilar rales - improved; mild only abd - soft NT ND BS+ ext - 1+ edema RLE extending to the thigh; left AKA; pulses R foot 2+ psych - a/o x 3 Results & Data Results & Data Vital Signs (Past 12 Hours) Vital Signs Temp Pulse Pulse Resp BP Pulse Ox O2 Del Method 05/02/23 17:07 36.7 C 58 L 18 146/64 H 95 Room Air 05/02/23 17:01 60 05/02/23 11:40 36.5 C 62 18 153/63 H 95 Room Air 05/02/23 08:00 66 05/02/23 07:46 36.5 C 57 L 18 147/70 H 92 Room Air Laboratory Results Laboratory Results - last 24 hr 05/01/23 05/02/23 05/02/23 20:05 06:27 08:14 Sodium 139 Potassium 4.2 Chloride 104 Carbon Dioxide 27 Anion Gap 8 BUN 58 H Creatinine 2.50 H Est Cr Clr Drug Dosing 33.6 Est GFR ( Amer) 28.3 Est GFR (Non-Af Amer) 24.4 BUN/Creatinine Ratio 23.2 H Glucose 166 H POC Glucose 124 H 197 H Calcium 8.6 05/02/23 05/02/23 12:06 17:12 Sodium Potassium Chloride Carbon Dioxide Anion Gap BUN Creatinine Est Cr Clr Drug Dosing Est GFR ( Amer) Est GFR (Non-Af Amer) BUN/Creatinine Ratio Glucose POC Glucose 213 H 78 Calcium PG Care Time/CCT Total # of Minutes Spent Total Time Spent with Patient: Total time spent is greater than 50% in coordination of care (as documented) at patient's floor/unit and/or counseling patient: Coding Level of Care Code 15748 SUB INP/OBS CARE 235MIN Diagnoses Acute on chronic diastolic (congestive) heart failure I50.33 Nephrotic syndrome N04.9 Generalized pruritus L29.9 Glaucoma associated with underlying disease, unspecified laterality H42 Glaucoma type: associated with underlying disease Laterality: unspecified laterality Depression F32.A Chronic kidney disease, stage 4 (severe) N18.4 Insomnia G47.00 S/P CABG x 4 Z95.1 CAD, multiple vessel I25.10 GERD (gastroesophageal reflux disease) K21.9 Restless leg syndrome G25.81 Primary hypertension I10 Hypertension type: primary hypertension Dyslipidemia E78.5 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, with long-term current use of insulin E10.319; E10.65 Blister of leg, right S80.821A Status post below knee amputation of left lower extremity Z89.512 Candidal diaper rash B37.2; L22 Chronic seborrheic dermatitis L21.9 (4) Glaucoma Glaucoma type: associated with underlying disease Laterality: unspecified laterality Qualified Code(s): H42 - Glaucoma in diseases classified elsewhere (12) Hypertension Hypertension type: primary hypertension Qualified Code(s): I10 - Essential (primary) hypertension
[2023-05-02] MEDS: LATANOPROST 0.005% OP SOLN 2.5 ML BTL OPB SCH (20:53)
[2023-05-02] MEDS: rOPINIRole HCL 1 MG TABLET PO SCH (20:54)
[2023-05-02] MEDS: traZODone HCL 50 MG TAB PO SCH (20:59)
[2023-05-03 07:57] LABS: BUN Creatinine Ratio 23.7 (10-20); Calcium 8.7 mg/dl (8.6-10.3); Est GFR (African American) 26.2 ml/min; Est GFR (Non-African American) 22.6 ml/min; Potassium 4.1 mmol/L (3.5-5.1)
[2023-05-03] MEDS: TRIAMCINOLONE ACET 0.1% CR 80 GM TUBE EXT SCH ×3 (08:36→20:17)
[2023-05-03] MEDS: MICONAZOLE NITRATE POWDER 85 GM EXT SCH ×3 (08:36→20:17)
[2023-05-03] MEDS: HYDROCORTISONE 2.5% CR 30 GM TUBE EXT SCH ×3 (08:37→20:18)
[2023-05-03] MEDS: TIMOLOL GFS 0.5% OPH SOLN 74 DROPS/5 ML BTL OPB SCH ×2 (08:37→20:17)
[2023-05-03] MEDS: DORZOLAMIDE HCL 2% OPH SOLN 10 ML BTL OPB SCH ×2 (08:37→20:17)
[2023-05-03] MEDS: EUCERIN CR 120 GM JAR EXT SCH ×3 (08:37→20:17)
[2023-05-03] MEDS: BRIMONIDINE TARTRATE 0.2% 5ML OPB SCH ×2 (08:37→20:17)
[2023-05-03] MEDS: INSULIN HUMAN NPH SC SCH ×2 (08:38→18:12)
[2023-05-03] MEDS: HEPARIN SOD 5,000 UNIT/0.5 ML VIAL SQ SCH ×2 (08:38→20:16)
[2023-05-03] MEDS: INSULIN ASPART PER UNIT CHARGE SC SCH ×4 (08:40→20:57)
[2023-05-03] MEDS: dilTIAZem HCL 240 MG CAPCR PO SCH (08:40)
[2023-05-03] MEDS: LOSARTAN POTASSIUM 50 MG TAB PO SCH (08:40)
[2023-05-03] MEDS: BUMETANIDE 4 MG in SYRINGE 0 ML IV SCH ×2 (08:40→16:04)
[2023-05-03] MEDS: ATORVASTATIN 40 MG TAB PO SCH (08:41)
[2023-05-03] MEDS: CYANOCOBALAMIN (B-12) 500 MCG TABLET PO SCH (08:41)
[2023-05-03] MEDS: ASPIRIN 325 MG ECTAB PO SCH (08:41)
--- NOTE | 2023-05-03 20:01 | Hospitalist Progress Note ---
Date of Service May 03, 2023 Assessment & Plan (1) Acute on chronic diastolic (congestive) heart failure: Plan: volume overload 2nd to acute/chronic diastolic CHF + CKD/nephrotic syndrome. improving. cont bumex 4mg IV BID. daily labs. fluid restrict 1800cc/day. TSH noted to be wnl. daily weights. we discussed the importance of daily weights at home. he did admit that there are days when he doesn't take his bumex. he also mentions he had run out of his metolazone recently. BMP in am. (2) Nephrotic syndrome: Plan: 2-3+ protein on u/a's. follows with [facility] [place]. certainly contributing to volume overload/edema. cont losartan. cont to diurese. BMP am. (3) Generalized pruritus: Plan: improving with triamcinolone 0.1% cream - TID in thin amounts to worst areas. eucerin cream TID for dry skin. cont atarax prn. of note - LFTs wnl. no polycythemia. I don't see evidence of scabies - groin, hands, feet all spared. I don't see burrowing in any location. His rash has NOT worsened during the stay. he also has bad seborrhea of the scalp and face. (4) Glaucoma: Plan: cont home drops (5) Depression: Plan: appreciate Behavioral health consult he has had depression for 2-3 years also with severe loneliness, insomnia, etc TSH wnl B12 low-normal --> cont supplement 1000mcg daily pt is finally open to the idea of an antidepressant - will let the behavioral health team know (6) Chronic kidney disease, stage 4 (severe): Plan: baseline Cr about 2.5 stable Cr once again near baseline BMP am (7) Insomnia: Plan: cont trazodone (8) S/P CABG x 4: Plan: 2011 (9) CAD, multiple vessel: Plan: no ischemic symptoms at this time cont asa cont statin (10) GERD (gastroesophageal reflux disease): Plan: not on meds for such (11) Restless leg syndrome: Plan: ropinirole HS (12) Hypertension: Plan: cont losartan cont diltiazem cont bumex (13) Dyslipidemia: Plan: cont statin (14) 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, with long-term current use of insulin: Plan: pharmacy glycemic team consulted for management - appreciate their assistance cont basal-bolus insulin BSGs ac/hs DM diet control - satisfactory a1c 9.1% in 03/2023 (15) Blister of leg, right: Plan: cont optifoam dressings appreciate wound care consultation no evidence of cellulitis on right aragon - erythema is due to stasis changes (16) Status post below knee amputation of left lower extremity: Plan: no issues he has prosthetic leg in the room (17) Candidal diaper rash: Plan: miconazole powder TID to rash in groin - improving (18) Chronic seborrheic dermatitis: Plan: HC 2.5% cream - TID in thin amounts of affected areas would benefit from prescription strength nizoral shampoo 2% at d/c - will call it in to his pharmacy Plan son updated by phone earlier this weekend left message for his son on his [employer] this evening PT/OT - passed PT eval progressing Admission and Anticipated Discharge Date Admission Date: April 29, 2023 Subjective tele stable overnight NSR "I feel so much better" denies dyspnea at rest denies orthopnea/PND denies FREIDMAN LE edema slowly improving we discussed his depression he is now willing to consider antidepressant therapy willing to speak with psych again pruritis - about the same, no worse than previous; no new areas of rash Review of Systems Review of Systems: cv - no chest pain, no orthopnea pulm - no dyspnea or cough GI - no N/V Physical Exam Physical Exam: gen - obese, NAD, sitting at side of the bed comfortably, not as tearful today skin - no generalized rash; skin is very dry on arms, legs, and torso - improved. Right aragon -- venous stasis changes; no cellulitis of the RLE. seborrhea of scalp, between the eyes, nasal region, chin. neck - no obvious JVD mouth - MMM heart - RRR, s1 s2, 2/6 KHARI LSB lungs - b/l basilar rales - mainly L base -- overall improved; no wheeze; no increased work of breathing abd - soft NT ND BS+ ext - 1+ edema RLE extending to the knee; left AKA; pulses R foot 2+ psych - a/o x 3 Results & Data Results & Data Vital Signs (Past 12 Hours) Vital Signs Temp Pulse Resp BP Pulse Ox O2 Del Method 05/03/23 15:57 36.5 C 56 L 16 133/62 95 Room Air 05/03/23 11:40 36.4 C L 60 18 147/72 H 92 Room Air Laboratory Results Laboratory Results - last 24 hr 05/02/23 05/03/23 05/03/23 20:20 06:55 08:17 Sodium 140 Potassium 4.1 Chloride 104 Carbon Dioxide 26 Anion Gap 10 BUN 63 H Creatinine 2.66 H Est Cr Clr Drug Dosing 30.0 Est GFR ( Amer) 26.2 Est GFR (Non-Af Amer) 22.6 BUN/Creatinine Ratio 23.7 H Glucose 155 H POC Glucose 82 156 H Calcium 8.7 05/03/23 05/03/23 12:23 17:25 Sodium Potassium Chloride Carbon Dioxide Anion Gap BUN Creatinine Est Cr Clr Drug Dosing Est GFR ( Amer) Est GFR (Non-Af Amer) BUN/Creatinine Ratio Glucose POC Glucose 250 H 181 H Calcium PG Care Time/CCT Total # of Minutes Spent Total Time Spent with Patient: Total time spent is greater than 50% in coordination of care (as documented) at patient's floor/unit and/or counseling patient: Coding Level of Care Code 54448 SUB INP/OBS CARE 2/35MIN Diagnoses Acute on chronic diastolic (congestive) heart failure I50.33 Nephrotic syndrome N04.9 Generalized pruritus L29.9 Glaucoma associated with underlying disease, unspecified laterality H42 Glaucoma type: associated with underlying disease Laterality: unspecified laterality Depression F32.A Chronic kidney disease, stage 4 (severe) N18.4 Insomnia G47.00 S/P CABG x 4 Z95.1 CAD, multiple vessel I25.10 GERD (gastroesophageal reflux disease) K21.9 Restless leg syndrome G25.81 Primary hypertension I10 Hypertension type: primary hypertension Dyslipidemia E78.5 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, with long-term current use of insulin E10.319; E10.65 Blister of leg, right S80.821A Status post below knee amputation of left lower extremity Z89.512 Candidal diaper rash B37.2; L22 Chronic seborrheic dermatitis L21.9 (4) Glaucoma Glaucoma type: associated with underlying disease Laterality: unspecified laterality Qualified Code(s): H42 - Glaucoma in diseases classified elsewhere (12) Hypertension Hypertension type: primary hypertension Qualified Code(s): I10 - Essential (primary) hypertension
[2023-05-03] MEDS: rOPINIRole HCL 1 MG TABLET PO SCH (20:16)
[2023-05-03] MEDS: traZODone HCL 50 MG TAB PO SCH (20:16)
[2023-05-03] MEDS: LATANOPROST 0.005% OP SOLN 2.5 ML BTL OPB SCH (20:18)
[2023-05-03] MEDS: hydrOXYzine HCl 10 MG TAB PO PRN (20:25)
[2023-05-04] MEDS ORDERED: INSULIN ASPART PER UNIT CHARGE SC SCH ×2 (07:30)
[2023-05-04 07:44] LABS: BUN Creatinine Ratio 23.2 (10-20); Calcium 8.8 mg/dl (8.6-10.3); Creatinine Clr Calc Pharmacy 28.8 ml/min; Est GFR (African American) 25.1 ml/min; Est GFR (Non-African American) 21.6 ml/min; Potassium 4.1 mmol/L (3.5-5.1)
[2023-05-04] MEDS: ASPIRIN 325 MG ECTAB PO SCH (08:41)
[2023-05-04] MEDS: LOSARTAN POTASSIUM 50 MG TAB PO SCH (08:41)
[2023-05-04] MEDS: dilTIAZem HCL 240 MG CAPCR PO SCH (08:41)
[2023-05-04] MEDS: CYANOCOBALAMIN (B-12) 500 MCG TABLET PO SCH (08:41)
[2023-05-04] MEDS: BUMETANIDE 4 MG in SYRINGE 0 ML IV SCH (08:42)
[2023-05-04] MEDS: ATORVASTATIN 40 MG TAB PO SCH (08:42)
[2023-05-04] MEDS: HEPARIN SOD 5,000 UNIT/0.5 ML VIAL SQ SCH (08:43)
[2023-05-04] MEDS: BRIMONIDINE TARTRATE 0.2% 5ML OPB SCH (08:46)
[2023-05-04] MEDS: DORZOLAMIDE HCL 2% OPH SOLN 10 ML BTL OPB SCH (08:46)
[2023-05-04] MEDS: TIMOLOL GFS 0.5% OPH SOLN 74 DROPS/5 ML BTL OPB SCH (08:47)
[2023-05-04] MEDS: HYDROCORTISONE 2.5% CR 30 GM TUBE EXT SCH ×2 (08:47→12:56)
[2023-05-04] MEDS: MICONAZOLE NITRATE POWDER 85 GM EXT SCH ×2 (08:48→12:56)
[2023-05-04] MEDS: TRIAMCINOLONE ACET 0.1% CR 80 GM TUBE EXT SCH ×2 (08:48→12:56)
[2023-05-04] MEDS: EUCERIN CR 120 GM JAR EXT SCH ×2 (08:48→12:55)
[2023-05-04] MEDS: INSULIN HUMAN NPH SC SCH (08:49)
--- NOTE | 2023-05-04 09:03 | Pharmacy Report ---
Pharmacy Glycemic Short Note 2 - Date of Service May 04, 2023 - Glycemic Short BSG Results (Last 24 hours): 05/03/23 05/03/23 05/03/23 12:23 17:25 20:37 Glucose POC Glucose 250 H 181 H 214 H 05/04/23 05/04/23 06:18 08:20 Glucose 148 H POC Glucose 184 H OUTPATIENT ANTIDIABETIC REGIMEN: * Insulin NPH 30 units BID (switched from Toujeo due to cost) * Insulin regular SS (max 25 units per day per Rx) HbA1c 9.1% (03/31/23) ASSESSMENT: 05/04 * BSGs elevated yesterday, ranging 156-250 mg/dL * Received 65 units of insulin yesterday (22 units of basal NPH and 43 units of prandial/correctional bolus) * Novolog parameters had been loosened yesterday due to borderline low BSGs on 05/02 * Will tighten AM Novolog parameters this morning and utilize NPH scale with dinner this evening to potentially provide more basal insulin * Maintain looser Novolog parameters for rest of day 05/02 * Patient received total of 55 units of insulin yesterday, of which 20 units wer e NPH * Fasting BSG 166 mg/dL - will increase AM NPH to help with higher BSG values around lunch time and tighten CR * BSGs tend to trend down throughout the day, will have looser parameters at dinner and HS * Continue with same NPH at dinner for now, may need to titrate up with AM fasting trending upward 04/30 * [place] is a 72 YOM admitted with shortness of breath and a history of T1DM. Pharmacy has been consulted to assist with glycemic management while inpatient. * Hypoglycemic event overnight, treated with 15 gm CHO, AM BSG (non-fasting due to CHO) within goal range. Suspect bedtime administration of NPH as cause. Also hypoglycemic on admission, unclear cause. * Will continue home NPH to mimic outpatient insulin usage, but at significantly reduced dose.. He has required approximately 20 units of basal insulin on previous admissions, will begin there twice daily with breakfast/dinner and titrate as indicated. * He has required Novolog parameters at around a weight based stress of 3 on previous admissions. Will start conservatively around a weight based stress of 2 and adjust as indicated. May have different requirements this admission due to basal insulin change. * Patient reported he has overnight lows at home, will trial a loosen correction factor carbohydrate ratio at bedtime. * He does have CKD which may be contributing to overnight lows with reduced clearance of insulin. PLAN FOR INPATIENT GLYCEMIC CONTROL: * Hold outpatient oral diabetes medications * Basal insulin * Insulin NPH 12 units QAM * NPH 10-12 units daily with dinner (see EHR for details) * Bolus insulin- breakfast * NovoLog per scale AC * Goal Range: Low 120 mg/dL - High 160 mg/dL * Correction Factor: 20 mg/dL/unit * Nutritional / Prandial insulin per carb ratio of 1 unit per 4 grams CHO consumed * Bolus insulin- lunch and dinner * NovoLog per scale AC * Goal Range: Low 120 mg/dL - High 160 mg/dL * Correction Factor: 30 mg/dL/unit * Nutritional / Prandial insulin per carb ratio of 1 unit per 8 grams CHO consumed * Bolus insulin- bedtime * NovoLog per scale HS or Q6hrs while NPO * Goal Range: Low 120 mg/dL - High 160 mg/dL * Correction Factor: 50 mg/dL/unit * Nutritional / Prandial insulin per carb ratio of 1 unit per 15 grams CHO consumed
[2023-05-04 11:44] VITALS: BP 143/72; RESP 22; TEMP 98.4; O2SAT 96
[2023-05-04] MEDS ORDERED: BUMETANIDE 1 MG TAB PO ONE (12:15)
[2023-05-04] MEDS: INSULIN ASPART PER UNIT CHARGE SC SCH (12:50)
[2023-05-04 13:48] VITALS: PULSE 73
--- NOTE | 2023-05-04 17:33 | Discharge Summary ---
Date of Service May 04, 2023 Admission HPI Per Admitting Provider 72 yo male with PMHx of CAD s/p quadruple bypass, DM1, diabetic retinopathy, L BKA, peripheral neuropathy, HFpEF, CKD, glaucoma, HTN, HLD, and RLS presents with shortness of breath. 3 days ago patient started developing shortness of breath which has progressively been worsening. He has had associated fatigue and a mild headache. Otherwise he denies fevers, chills, chest pain, abdominal pain, nausea, vomiting, diarrhea, dysuria, extremity/numbness. He was recently discharged from the hospital 2 weeks ago following influenza and hyperglycemia. After discharge he states he was feeling good and at his baseline. He has been compliant with his medications at home including his Bumex and insulin. He does have metolazone on his med list to be used as needed for weight gain however he claims he is out of this medication. He also does not check his weight at home. Denies any changes in his diet, if anything he has had last oral intake due to being fatigued. Principal Diagnosis Acute on chronic diastolic heart failure, CKD with nephrosis Discharge Exam PHYSICAL EXAMINATION Last 24h vital signs reviewed, see documentation in flowsheet General: comfortable appearing, no distress, walking well in hallway HEENT: Normocephalic, atraumatic, pupils round and equal, sclerae anicteric, no conjunctival injection, moist mucus membranes Lungs: Normal respiratory effort. Clear to auscultation bilaterally. No RRW Heart: Regular rate and rhythm, no murmurs. No JVD Abdomen: Soft, nondistended. Extremities: Warm, dry, well-perfused. 2-3+ extremity edema. Neuro: Alert and oriented x 4, face symmetric, moves 4 extremities well Psych: Normal affect and behavior Discharge Data Allergies Allergy/AdvReac Type Severity Reaction Status Date / Time sulfamethoxazole Allergy Intermediate Rash Verified 03/11/23 11:24 trimethoprim Allergy Intermediate Rash Verified 03/11/23 11:24 Quinolones Allergy Mild Itchiness Verified 03/11/23 11:24 ofloxacin [From Floxin] Allergy itching Verified 03/11/23 11:24 Consultations 04/29/23 13:02 ED Decision to Admit Stat 04/30/23 12:35 Consult Behavioral Health Liaison Routine 05/04/23 09:24 [facility] [place] [place] CHF Program Referral Routine Ordered Studies 04/30/23 06:45 05/04/23 06:18 Chest X-Ray 04/29/23 11:08 XR chest 1V portable HISTORY: Chest pain, nonspecific COMPARISON: Chest 04/15/2023. FINDINGS: No pneumothorax. The heart remains enlarged. There are poststernotomy changes. Perihilar interstitial/vascular thickening consistent with pulmonary edema. This is similar to the prior study. Small bilateral pleural effusions persist. Bibasilar linear densities favor compressive atelectasis from the pleural effusions. Otherwise, no new focal lung consolidations. IMPRESSION: No significant change in the cardiomegaly, pulmonary edema, and small bilateral pleural effusions. ACT 112: Negative or not required by law. Electronically signed by: Abilio Soto M.D. 04/29/2023 1:09 PM Hospital Course (1) Acute on chronic diastolic (congestive) heart failure: Several recent admissions, influenza A mid March, readmitted with hyperglycemia few weeks later. Admitted with volume overload 2nd to acute on chronic diastolic CHF + CKD/nephrotic syndrome. Had run out of metolazone at home, which likely triggered the exacerbation. Diuresed well on bumex 4 mg IV bid. No longer hypoxic. Edema much improved. Discharged on bumex 4 mg bid with metolazone 5 mg qAM PRN weight gain, I reordered the metolazone prescription. We discussed he likely needs this 2-3x a week. Arranged him to reestablish follow up with heart failure clinic. Discussed monitoring weight, fluid, salt intake. (2) Nephrotic syndrome: 2-3+ protein on u/a's. follows with [facility] [place] [place] Nephrology. Has appt mid May. certainly contributing to volume overload/edema. cont losartan. Cr remained stable at his baseline. (3) Generalized pruritus: ketoconazole rx for seborrhea no evidence of infestation or allergic rash sertraline might help pruritis (4) Glaucoma: cont home drops (5) Depression: appreciate Behavioral health consult he has had depression for 2-3 years also with severe loneliness, insomnia, etc TSH wnl B12 low-normal --> cont supplement 1000mcg daily pt is finally open to the idea of an antidepressant - I discussed with him and started low-dose sertraline. Opted for this med because does not require dose adjustment in renal dysfunction. Follow up in primary care consider dose increase in 2 weeks. (6) Chronic kidney disease, stage 4 (severe): baseline Cr about 2.5 stable Cr once again near baseline BMP am (7) Insomnia: cont trazodone (8) S/P CABG x 4: 2011 (9) CAD, multiple vessel: no ischemic symptoms at this time cont asa cont statin (10) GERD (gastroesophageal reflux disease): not on meds for such (11) Restless leg syndrome: ropinirole HS (12) Hypertension: cont losartan cont diltiazem cont bumex (13) Dyslipidemia: cont statin (14) 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, with long-term current use of insulin: a1c 9.1% in 03/2023 but had not been taking insulin consistently. Recently reports good BG control at home when he is compliant with his home insulins. Follow up in primary care (15) Blister of leg, right: cont optifoam dressings appreciate wound care consultation no evidence of cellulitis on right aragon - erythema is due to stasis changes Home health ordered (16) Status post below knee amputation of left lower extremity: no issues he has prosthetic leg in the room (17) Candidal diaper rash: miconazole powder TID to rash in groin - improved (18) Chronic seborrheic dermatitis: nizoral shampoo 2% at d/c - sent in to his pharmacy Total Time Total Time Spent Total Time Spent (In Minutes): I personally spent: 40 minutes today on clinical care activities for discharge including: reviewing chart notes and vital signs reviewing labs discussion with water resource consultant(s) - arranging heart failure program follow up examining and counseling the patient writing orders documentation Discharge Plan Discharge Items Patient Disposition: Home - Home Health Services Reason For Visit: SOB Discharge Diagnosis: acute on chronic diastolic heart faiure, CKD stage 4 with nephrotic syndrome Activity: Resume your previous activity Non-emergency contact: Primary Care Provider and String Laster Call non-emergency contact if: you have any medication questions, your symptoms worsen, you have a fever, your wound has increased redness and your wound has increased drainage Follow-up/Referrals: Leah Wolf DO [Primary Care Provider] - 05/12/23 10:20 am Carmenza Casanova PA-C [Physician Lease Purchase Driver] - 05/11/23 2:00 pm Diet: Carb Count or DM1 and Heart Healthy Fluids: 1800ml (7 cups) Addtl Attending Provider Instructions: You were treated with IV diuretics (bumex) for heart failure exacerbation You will need to continue your bumex twice a day, and you probably need a dose of metolazone 2-3 times a week Take the metolazone 30 minutes prior to your morning dose of bumex Weigh yourself every morning and keep a log Take a dose of metolazone if you see your weight going up, you can repeat it the next day if your weight doesn't go back down. Usually a gain of 3 pounds or more overnight or a gain of 5 pounds in a week is a significant amount of water weight -call the heart failure clinic if your weight goes up by more than 5 pounds and doesn't come right back down with a dose or two of metolazone -limit your salt and fluid intake -keep your leg elevated when you are at rest I started medication called sertraline for depression. Interestingly sometimes this medication helps with itching as well. See your primary care doctor in 1-2 weeks. You may need a dose increase in 2-3 weeks. It takes 4-8 weeks to have full effect. Wound care nurse instructions: Clean and dry wounds on right leg. Apply aquacel ag and optifoam. Change daily. Recommend elevating leg if possible to help with edema . If wounds do not progress or if they worsen recommend follow up with either PCP or wound care. Call for appointment. Pending Studies at Discharge: No Stand-Alone Forms: [facility], Smoking Cessation Medications and DC Order Prescriptions: New ketoconazole 2 % shampoo 1 applic topical .Wed/Wed/Wednesday Qty: 120 1RF Rx Instructions: apply to scalp, lather, rinse - 3 days/week. cyanocobalamin (vitamin B-12) 500 mcg Tablet 1,000 mcg PO QAM Qty: 0 0RF Rx Instructions: buy over the counter sertraline 25 mg tablet 25 mg PO DAILY Qty: 30 0RF Continued (DME) OneTouch Ultra Blue Test Strip Strip See Dose Instructions .ROUTE .MEDSUPPLY Qty: 100 5RF Rx Instructions: use 1 strip to check glucose 4 times daily dx: E10.42, E10.65, E10.319 (DME) FreeStyle Farhad [address] [place] [facility] [place] See Rx Instructions .ROUTE .MEDSUPPLY Qty: 1 0RF Rx Instructions: As directed atorvastatin [Lipitor] 80 mg tablet 80 mg PO QAM Qty: 90 1RF losartan 100 mg tablet 100 mg PO QAM Qty: 90 1RF (DME) pen needle, diabetic [BD Ultra-Fine [place] Pen Needle] 32 gauge x 5/32" needle See Rx Instructions .Route Qty: 400 3RF Rx Instructions: Inject insulin four times daily ropinirole 1 mg tablet 3 mg PO HS Qty: 270 1RF bumetanide 2 mg tablet 4 mg PO BID Qty: 120 6RF (DME) lancets [OneTouch UltraSoft Lancets] [facility] [place] See Dose Instructions .ROUTE .MEDSUPPLY Qty: 50 Rx Instructions: test 4 times dailiy ascorbic acid (vitamin C) 500 mg capsule 500 mg PO QAM (DME) Wheelchair (Powered) Device See Rx Instructions .ROUTE .MEDSUPPLY Qty: 1 0RF Rx Instructions: powered wheelchair as directed (DME) Bundle Ite 2 Sensor Kit See Rx Instructions .ROUTE .MEDSUPPLY Qty: 2 5RF Rx Instructions: As directed. Dx: E10.319, E10.65, E10.42. Testing BS qid calcitriol 0.5 mcg capsule 1 mcg PO QAM Qty: 60 4RF diltiazem HCl 240 mg capsule,extended release 24hr 240 mg PO DAILY Qty: 90 3RF albuterol sulfate 90 mcg/actuation HFA aerosol inhaler 2 puff inhalation Q6H PRN (Reason: shortness of breath or wheezing) Qty: 18 3RF latanoprost [Xalatan] 0.005 % Drops 1 drp OPB HS aspirin 325 mg Tablet 325 mg PO QAM cholecalciferol (vitamin D3) [Vitamin D3] 50 mcg (2,000 unit) capsule 2,000 units PO QAM brimonidine 0.2 % drops 1 drp OPB BID timolol maleate 0.5 % gel forming solution 1 drp OPB BID dorzolamide 2 % drops 1 drp OPB BID trazodone 50 mg tablet 50 mg PO HS metolazone 5 mg tablet 5 mg PO UD PRN (Reason: weight gain) Qty: 30 0RF Rx Instructions: take dose in AM if weight does up 3 pound in a day or 5 pounds in a week potassium gluconate 595 mg (99 mg) tablet 1,785 mg PO QAM Novolin N NPH U-100 Insulin 100 unit/mL suspension 30 unit subcut BID Qty: 10 0RF Humulin R Regular U-100 Insuln 100 unit/mL solution 1 sliding scale dose subcut USEASDIRECTD Qty: 10 0RF Discharge Orders: Discharge Order (Routine); Ordered 05/04/23 Ordered By: Bouchra Betancourt Admission Data Admit Date/Time: 04/29/23 14:18 Attending Provider: Bouchra Betancourt Admit Provider: Yinka Naik Primary Care Provider: Leah Wolf Other Providers: Keron Caputo; Carmenza Casanova Other Interventions: Discharge Summary Assessment (RN) Last Done: 05/04/23 13:48 Coding Level of Care Code 31017 INP/OBS DISCH >30 MIN Diagnoses Acute on chronic diastolic (congestive) heart failure I50.33 Nephrotic syndrome N04.9 Generalized pruritus L29.9 Glaucoma associated with underlying disease, unspecified laterality H42 Glaucoma type: associated with underlying disease Laterality: unspecified laterality Depression F32.A Chronic kidney disease, stage 4 (severe) N18.4 Insomnia G47.00 S/P CABG x 4 Z95.1 CAD, multiple vessel I25.10 GERD (gastroesophageal reflux disease) K21.9 Restless leg syndrome G25.81 Primary hypertension I10 Hypertension type: primary hypertension Dyslipidemia E78.5 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, with long-term current use of insulin E10.319; E10.65 Blister of leg, right S80.821A Status post below knee amputation of left lower extremity Z89.512 Candidal diaper rash B37.2; L22 Chronic seborrheic dermatitis L21.9
[2023-05-04] MEDS ORDERED: INSULIN HUMAN NPH SC SCH (18:00)
== END 2023-05-04 14:46 | disposition home health service (06) | DRG 291 ==
LOC: ED 10:27 → EDINP 14:18 → SUATTDRO 14:18 → 2N 14:30

== ENCOUNTER 2023-05-28 13:42 | Inpatient (IN) ==
--- NOTE | 2023-05-28 14:25 | Emergency Department Note ---
Impression & Plan Non-ST elevation [place] (NSTEMI), Acute kidney injury superimposed on chronic kidney disease ED Provider Note HISTORY OF PRESENT ILLNESS: Patient is a 72-year-old male presenting with bradycardia and "feeling cold." Patient reports that home health came to his house today and took his vital signs and noted that his heart rate was in the mid 30s. He states that he was feeling very cold all morning. He denies any chest pain or shortness of breath. He states he woke up and felt like his blood sugar was low and he drank a cup of orange juice and felt better. He states that he was lightheaded with the low blood sugar feeling. He denies any chest pain or shortness of breath with the bradycardia. He denies any DVT or PE history. Denies any palpitations. Denies abdominal pain, nausea or vomiting. He states at home health took his vital signs multiple times and he was persistently bradycardic, prompting presentation to the ER. On arrival to the ER, he reports "feeling very cold." He denies any recent sick contact exposures. Denies any measured fevers at home. ROS: as above PHYSICAL EXAM: Constitutional: Patient appears in no acute distress. HENT: Head: Normocephalic and atraumatic. Eyes: EOMI, PERRL Mouth/Throat: Mucous membranes moist. Neck: Trachea midline. Neck supple. Cardiovascular: RRR, No murmurs, rubs or gallops. Intact distal pulses. Pulmonary/Chest: No respiratory distress. Breath sounds clear and equal bilaterally. No wheezes or rales. Abdominal: Abdomen soft, no tenderness, rebound or guarding. Musculoskeletal: Left-sided lower extremity amputation Skin: Warm and dry. No rash, erythema, pallor or cyanosis Psychiatric: Appropriate mood and affect for situation. Neurological: Alert and keenly responsive. CN II-XII grossly intact, moving all extremities equally and fully. MDM: - Vitals signs showed hypertension. - History obtained via patient. Patient presents with bradycardia and feeling cold. Patient had home health come to his house today and he was reportedly bradycardic to the 30s. He states he felt lightheaded. Denies any chest pain or shortness of breath. He reports he is "feeling very cold" all day today. Denies any fevers. - Chronic conditions affecting care: DM-1; CKD; CAD (S/p CABG); HTN; HLD - Differential diagnoses include, but are not limited to: Heart block; electrolyte abnormality; dysrhythmia; ACS; viral syndrome - Order placed for continuous cardiac monitoring. At this time, monitor showed rate of 72 bpm with normal sinus rhythm, per my interpretation. - External medical records reviewed. EMS run sheet was reviewed. Patient was vitally stable and route. No medications were given prehospital. - EKG interpreted by myself showed normal sinus rhythm. Rate 68 bpm. QT 468. No acute ischemic changes. Noted to have a right bundle branch block and occasional PVC. - Laboratory workup interpreted by myself showed normal WBC; stable electrolytes; ABDOULAYE on CKD (Cr 2.75); elevated troponin (67.6); normal TSH - Repeat troponin rising at 127.0 - CXR showed cardiomegaly, per my interpretation. - COVID/flu/RSV negative - Discussion was had with customer care agent about patient's case and need for admission - Hospitalist consulted for admission - Patient admitted to [facility] for further evaluation and management. ASSESSMENT AND PLAN: Diagnosis: NSTEMI; ABDOULAYE on CKD Plan: Admit Past Med/Surg History Medical History (Updated 05/28/23 @ 18:07 by Keron Caputo MD) Influenza A virus subtype H1 2008 pandemic strain present Slow to wake up after anesthesia Acute kidney failure Anemia of chronic disease Wound of lower extremity RLE wound "improved" per 01/27/21 wound clinic visit ([facility]); surgeon aware of patient's wound hx per 01/2021 office visit note; "only has a little scab there now, keeps it covered to protect it." Diabetes, type I Chronic kidney disease, stage 4 (severe) Nephrotic syndrome HF clinic office visit (02/08/20): "referred to the program for assistance with management of diuretic resistant hypervolemia in the setting of nephrotic syndrome. His hypervolemia is not felt to be secondary to heart failure. He has been stable on Bumex 3 mg BID. His weight has been stable. Follow up labs demonstrate kidney function and electrolytes stable. Discussed consistent daily standing weights. I&Os. 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 GERD (gastroesophageal reflux disease) Mild obstructive sleep apnea "Mild" > no device Restless leg syndrome History of TIA (transient ischemic attack) ~2009>over his left eye, no residual symptoms Surgical History (Updated 05/07/23 @ 00:10 by Rocío Solano) Status post below knee amputation of left lower extremity S/P arteriovenous (AV) fistula creation left>no currently having dialysis History of esophagogastroduodenoscopy (EGD) History of colonoscopy S/P lumbar laminectomy S/P foot surgery S/P eye surgery B/L x3 (for glaucoma) S/P CABG x 4 CABG x4 (2011), [facility] [place]; f/u PCP History of lumbar discectomy History of tonsillectomy Family History Father , age 78 with prostate cancer Colorectal cancer Cardiovascular disease Diabetes Prostate cancer Grandmother (Maternal) Diabetes Mother , age 54 of throat cancer Throat cancer Denies family history of Ovarian cancer Myocardial infarction Breast cancer Social History Smoking Status: Current every day smoker Second Hand Exposure: No; Do You Dip or Chew Tobacco: No; Hx Alcohol Use: No Hx Substance Use: No Preferred Language: Swiss Communication Ability: Effective Visual Impairment: No Limitations Hearing Ability: Normal Consulting Engineer Required: No Beliefs That Will Affect Care: Amish Amish Beliefs: Hindu marital status: / marital status details: lost August 2021 Current Living Situation: Alone current occupational status: retired current occupation: How many Children do You have: 2 other: Retired age 63-1/2. Feels Safe at Home: Yes Childhood Exposure to Second-Hand Smoke: No Diet: regular caffeine: No during the past year weight has: remained stable Dental Care, Regularly: Yes Physical Activity Frequency: Other Physical Activity Frequency Comment: limited d/t disability Seatbelt Use: always Sunscreen Use: Yes Assistive Devices: Prosthesis, Scooter/Electric Scooter, Special Shoe and Walker Allergies Allergies Allergy/AdvReac Type Severity Reaction Status Date / Time sulfamethoxazole Allergy Intermediate Rash Verified 05/27/23 15:04 trimethoprim Allergy Intermediate Rash Verified 05/27/23 15:04 Quinolones Allergy Mild Itchiness Verified 05/27/23 15:04 ofloxacin [From Floxin] Allergy itching Verified 05/27/23 15:04 Home Meds Home Medications Medication Instructions Recorded Confirmed aspirin 325 mg tablet 325 mg PO QAM 12/27/17 05/28/23 latanoprost 0.005 % eye drops 1 drp OPB HS 12/27/17 05/28/23 (Xalatan) lancets (TerraEchosTouch UltraSoft #50 ea 12/12/18 05/11/23 Lancets) cholecalciferol (vitamin D3) 50 2,000 units PO QAM 11/10/19 05/28/23 mcg (2,000 unit) capsule (Vitamin D3) brimonidine 0.2 % eye drops 1 drp OPB BID 12/07/20 05/28/23 dorzolamide 2 % eye drops 1 drp OPB BID 12/07/20 05/28/23 timolol maleate 0.5 % eye gel 1 drp OPB BID 12/07/20 05/28/23 forming solution ascorbic acid (vitamin C) 500 mg 500 mg PO QAM 02/19/21 05/28/23 capsule potassium gluconate 595 mg (99 mg) 1,785 mg PO QAM 06/09/21 05/28/23 tablet trazodone 50 mg tablet 50 mg PO HS 10/12/22 05/28/23 Previous Rx's Medication Instructions Recorded Wheelchair (Powered) #1 ea 11/22/19 blood sugar diagnostic (TerraEchosuch #100 ea 01/31/20 Ultra Blue Test Strip) flash glucose scanning reader #1 ea 12/17/21 (FreeStyle Farhad 2 [place]) flash glucose sensor (FreeStyle #2 ea 08/06/22 Farhad 2 Sensor kit) atorvastatin 80 mg tablet (Lipitor) 80 mg PO QAM #90 tabs 12/18/22 losartan 100 mg tablet 100 mg PO QAM #90 tabs 12/23/22 diltiazem HCl 240 mg 240 mg PO DAILY #90 caps 01/21/23 capsule,extended release 24 hr calcitriol 0.5 mcg capsule 1 mcg (2 x 0.5 mcg) PO QAM #60 caps 01/25/23 albuterol sulfate 90 mcg/actuation 2 puff inhalation Q6H PRN 02/10/23 aerosol inhaler shortness of breath or wheezing #18 grams pen needle, diabetic 32 gauge x #400 ea 02/25/23" (BD Ultra-Fine [place] Pen Needle) ropinirole 1 mg tablet 3 mg (3 x 1 mg) PO HS #270 tabs 03/16/23 bumetanide 2 mg tablet 4 mg (2 x 2 mg) PO BID #120 tabs 04/09/23 insulin NPH isoph U-100 human 100 30 unit (0.3 mL) subcut BID #10 mL 04/19/23 unit/mL subcutaneous suspension (Novolin N NPH U-100 Insulin isophane) insulin regular human 100 unit/mL 1 sliding scale dose subcut 04/19/23 injection solution (Humulin R USEASDIRECTD #10 mL Regular U-100 Insulin) cyanocobalamin (vitamin B-12) 500 1,000 mcg (2 x 500 mcg) PO QAM #0 05/04/23 mcg tablet tabs ketoconazole 2 % shampoo 1 applic topical .Wed/Wed/Wednesday05/04/23 #120 mL metolazone 5 mg tablet 5 mg PO UD PRN weight gain #30 tabs 05/04/23 sertraline 25 mg tablet 25 mg PO DAILY #30 tabs 05/04/23 empagliflozin 10 mg tablet 10 mg PO DAILY #30 tabs 05/27/23 (Jardiance) ergocalciferol (vitamin D2) 1,250 50,000 unit PO WEEKLY #12 caps 05/27/23 mcg (50,000 unit) capsule Results & Data (ED) Vital Signs Vital Signs - 24 hr 05/28/23 13:48 05/28/23 13:48 05/28/23 13:48 Temperature 36.6 C Temperature Source Oral Pulse Rate 71 Pulse Rate [Apical] Respiratory Rate 18 16 Blood Pressure 165/119 H Blood Pressure [Right Arm] Blood Pressure Mean 134 Blood Pressure Mean [Right Arm] Pulse Oximetry 95 Oxygen Delivery Method Room Air Sepsis Recent Fever Within 48 Hours No Sepsis New/Unexplained Change in Mental Status N/A Sepsis Action Taken by Nursing No Action Required 05/28/23 16:13 05/28/23 16:14 Temperature Temperature Source Pulse Rate 81 Pulse Rate [Apical] 76 Respiratory Rate 12 Blood Pressure Blood Pressure [Right Arm] 174/89 H Blood Pressure Mean Blood Pressure Mean [Right Arm] 117 Pulse Oximetry 93 Oxygen Delivery Method Room Air Sepsis Recent Fever Within 48 Hours Sepsis New/Unexplained Change in Mental Status Sepsis Action Taken by Nursing Laboratory Data 05/28/23 13:52 05/28/23 13:52 Lab Results 05/28/23 05/28/23 05/28/23 Range/Units 13:52 14:21 16:12 WBC 10.02 (4.8-10.8) K/ul RBC 4.29 L (4.70-6.10) M/uL Hgb 13.4 L (14.0-18.0) g/dl Hct 40.1 L (42.0-52.0) % MCV 93.5 (80.0-100.0) fL MCH 31.2 (25.0-34.0) pg MCHC 33.4 (32.0-36.0) g/dL RDW Std Deviation 46.8 H (36.4-46.3) fL RDW Coeff of Jose 13.7 (11.5-14.5) % Plt Count 161 (130-400) K/uL MPV 13.2 H (9.4-12.4) fL Immature Gran % (Auto) 0.5 % Neut % (Auto) 88.4 % Lymph % (Auto) 4.7 % [place] % (Auto) 5.5 % Eos % (Auto) 0.5 % Baso % (Auto) 0.4 % Neut # (Auto) 8.86 H (1.40-6.50) K/uL Lymph # (Auto) 0.47 L (1.20-3.40) K/uL [place] # (Auto) 0.55 (0.11-0.59) K/uL Eos # (Auto) 0.05 (0.00-0.50) K/uL Baso # (Auto) 0.04 (0.00-0.20) K/uL Immature Gran # (Auto) 0.05 (0.01-0.20) K/uL Sodium 136 (136-145) mmol/L Potassium 4.3 (3.5-5.1) mmol/L Chloride 97 L (98-107) mmol/L Carbon Dioxide 29 (21-32) mmol/L Anion Gap 10 (3-11) BUN 71 H (6-23) mg/dl Creatinine 2.75 H (0.6-1.4) mg/dl Est Cr Clr Drug Dosing 29.0 ml/min Est GFR ( Amer) 25.2 ml/min Est GFR (Non-Af Amer) 21.7 ml/min BUN/Creatinine Ratio 25.8 H (10-20) Glucose 111 H (70-99(Fasting)) mg/dl Calcium 9.4 (8.6-10.3) mg/dl Magnesium 2.3 (1.7-2.4) mg/dl Total Bilirubin 0.5 (0.2-1.0) mg/dl AST 17 (13-39) U/L ALT 14 (7-52) U/L Alkaline Phosphatase 84 (34-104) U/L Troponin I High Sens 67.6 H* 127.0 H* D (0-20) pg/ml Total Protein 7.3 (6.0-8.3) gm/dl Albumin 4.0 (3.4-5.0) gm/dl Globulin 3.3 (2.5-4.0) gm/dl Albumin/Globulin Ratio 1.2 (0.9-2) TSH 1.432 (0.300-4.500) uIu/ml SARS-CoV-2 (PCR) NEGATIVE (Negative) Discharge Plan Visit Data Chief Complaint: Bradycardia Stated Complaint: BRADYCARDIA ED Provider: Amalia Zamarripa Discharge Problem: Non-ST elevation [place] (NSTEMI), Acute kidney injury superimposed on chronic kidney disease Forms Stand Alone Forms: [facility] Prescriptions Prescriptions: No Action (DME) OneTouch Ultra Blue Test Strip Strip See Dose Instructions .ROUTE .MEDSUPPLY Qty: 100 5RF Rx Instructions: use 1 strip to check glucose 4 times daily dx: E10.42, E10.65, E10.319 (DME) FreeStyle Farhad 2 [place] Misc See Rx Instructions .ROUTE .MEDSUPPLY Qty: 1 0RF Rx Instructions: As directed atorvastatin [Lipitor] 80 mg tablet 80 mg PO QAM Qty: 90 1RF losartan 100 mg tablet 100 mg PO QAM Qty: 90 1RF (DME) pen needle, diabetic [BD Ultra-Fine [place] Pen Needle] 32 gauge x 5/32" needle See Rx Instructions .Route Qty: 400 3RF Rx Instructions: Inject insulin four times daily ropinirole 1 mg tablet 3 mg PO HS Qty: 270 1RF bumetanide 2 mg tablet 4 mg PO BID Qty: 120 6RF Jardiance 10 mg tablet 10 mg PO DAILY Qty: 30 2RF (DME) lancets [OneTouch UltraSoft Lancets] misc See Dose Instructions .ROUTE .MEDSUPPLY Qty: 50 Rx Instructions: test 4 times dailiy ascorbic acid (vitamin C) 500 mg capsule 500 mg PO QAM (DME) Wheelchair (Powered) Device See Rx Instructions .ROUTE .MEDSUPPLY Qty: 1 0RF Rx Instructions: powered wheelchair as directed (DME) FreeStDigitalsmiths Farhad 2 Sensor Kit See Rx Instructions .ROUTE .MEDSUPPLY Qty: 2 5RF Rx Instructions: As directed. Dx: E10.319, E10.65, E10.42. Testing BS qid calcitriol 0.5 mcg capsule 1 mcg PO QAM Qty: 60 4RF diltiazem HCl 240 mg capsule,extended release 24hr 240 mg PO DAILY Qty: 90 3RF albuterol sulfate 90 mcg/actuation HFA aerosol inhaler 2 puff inhalation Q6H PRN (Reason: shortness of breath or wheezing) Qty: 18 3RF ergocalciferol (vitamin D2) 1,250 mcg (50,000 unit) capsule 50,000 unit PO WEEKLY Qty: 12 0RF Rx Instructions: hasnt started yet latanoprost [Xalatan] 0.005 % Drops 1 drp OPB HS aspirin 325 mg Tablet 325 mg PO QAM cholecalciferol (vitamin D3) [Vitamin D3] 50 mcg (2,000 unit) capsule 2,000 units PO QAM brimonidine 0.2 % drops 1 drp OPB BID timolol maleate 0.5 % gel forming solution 1 drp OPB BID dorzolamide 2 % drops 1 drp OPB BID trazodone 50 mg tablet 50 mg PO HS ketoconazole 2 % shampoo 1 applic topical .Wed/Wed/Wednesday Qty: 120 1RF Rx Instructions: apply to scalp, lather, rinse - 3 days/week. cyanocobalamin (vitamin B-12) 500 mcg Tablet 1,000 mcg PO QAM Qty: 0 0RF Rx Instructions: buy over the counter sertraline 25 mg tablet 25 mg PO DAILY Qty: 30 0RF metolazone 5 mg tablet 5 mg PO UD PRN (Reason: weight gain) Qty: 30 0RF Rx Instructions: take dose in AM if weight does up 3 pound in a day or 5 pounds in a week potassium gluconate 595 mg (99 mg) tablet 1,785 mg PO QAM Novolin N NPH U-100 Insulin 100 unit/mL suspension 30 unit subcut BID Qty: 10 0RF Humulin R Regular U-100 Insuln 100 unit/mL solution 1 sliding scale dose subcut USEASDIRECTD Qty: 10 0RF Referrals Referrals: Leah Wolf DO [Primary Care Provider] -
[2023-05-28 14:35] LABS: Basophils # (auto) 0.04 K/uL (0.00-0.20); Basophils % (auto) 0.4 %; Eosinophils # (auto) 0.05 K/uL (0.00-0.50); Eosinophils % (auto) 0.5 %; Hematocrit (blood only) 40.1 % (42.0-52.0); Hemoglobin 13.4 g/dl (14.0-18.0); Immature Granulocytes # (auto) 0.05 K/uL (0.01-0.20); Immature Granulocytes % (auto) 0.5 %; Lymphocytes # (auto) 0.47 K/uL (1.20-3.40); Lymphocytes % (auto) 4.7 %; Mean Corpuscular Hemoglobin 31.2 pg (25.0-34.0); Mean Corpuscular Hgb Conc 33.4 g/dL (32.0-36.0); Mean Corpuscular Volume 93.5 fL (80.0-100.0); Mean Platelet Volume 13.2 fL (9.4-12.4); Monocytes # (auto) 0.55 K/uL (0.11-0.59); Monocytes % (auto) 5.5 %; Neutrophils # (auto) 8.86 K/uL (1.40-6.50); Neutrophils % (auto) 88.4 %; Platelet Count 161 K/uL (130-400); RDW Coefficient of Variation 13.7 % (11.5-14.5); RDW Standard Deviation 46.8 fL (36.4-46.3); Red Blood Count 4.29 M/uL (4.70-6.10); White Blood Count 10.02 K/ul (4.8-10.8)
[2023-05-28 14:51] LABS: Albumin Globulin Ratio 1.2 (0.9-2); BUN Creatinine Ratio 25.8 (10-20); Bilirubin,Total 0.5 mg/dl (0.2-1.0); Calcium 9.4 mg/dl (8.6-10.3); Est GFR (African American) 25.2 ml/min; Est GFR (Non-African American) 21.7 ml/min; Globulin 3.3 gm/dl (2.5-4.0); Magnesium 2.3 mg/dl (1.7-2.4); Potassium 4.3 mmol/L (3.5-5.1); Total Protein 7.3 gm/dl (6.0-8.3)
[2023-05-28 15:03] LABS: Troponin I High Sensitivity 67.6 pg/ml (0-20)
[2023-05-28 15:06] LABS: Thyroid Stimulating Hormone 1.432 uIu/ml (0.300-4.500)
--- NOTE | 2023-05-28 15:45 | Electrocardiogram Report ---
Test Reason : Blood Pressure : / mmHG Vent. Rate : 068 BPM Atrial Rate : 068 BPM P-R Int : 210 ms QRS Dur : 130 ms QT Int : 468 ms P-R-T Axes : 039 050 032 degrees QTc Int : 497 ms Sinus rhythm with 1st degree A-V block with occasional Premature ventricular complexes Right bundle branch block Abnormal ECG When compared with ECG of 29-APR-2023 11:49, Premature ventricular complexes are now Present Nonspecific T wave abnormality, improved in Inferior leads Confirmed by Yony Mcgrath ([id number]) on 05/28/2023 3:44:38 PM Referred By: Confirmed By:Yony Mcgrath
--- NOTE | 2023-05-28 17:27 | History & Physical Report ---
Date of Service May 28, 2023 Assessment & Plan (1) Bradycardia: Plan: Bradycardia Prior longstanding history of bradycardia documented rates in 50s and followed by cardiology for this. Beta-luiz previously discontinued Will hold diltiazem on admission. Follow on telemetry No signs of ACS (2) (HFpEF) heart failure with preserved ejection fraction: Plan: History of CHF preserved ejection fraction, CAD s/p CABG Bradycardic episode while at home with rates in the 30s no syncope but was lightheaded/presyncopal. Mildly elevated Trope without ischemic changes or chest pain at time of admission Lungs are clear, no severe pitting edema or JVD and no oxygen requirement. No evidence of acute volume overload at time of admission Echo ordered Troponin trended overnight Monitor on telemetry Pulse is normal at time of hospitalist admitting assessment Diltiazem temporarily held for symptomatic bradycardia Continue aspirin daily. May take 81 mg rather than the 325 mg. This has been decreased. Atropine if needed for symptomatic bradycardia develops overnight. Hold rate control agents and then reassess. If has recurrent symptomatic bradycardia despite holding these medications then can consider pacer however this is not yet indicated. Lyme testing added (3) S/P CABG x 4: (4) Chronic kidney disease, stage 4 (severe): Plan: CKD Creatinine at upper limit of normal on admission, patient does not appear significantly volume overloaded or contracted at time of admission Farxiga continued Metolazone, Bumex continued Avoid NSAIDs Right AV fistula present in the event patient needs to start hemodialysis in the future, this is not currently required (5) GERD (gastroesophageal reflux disease): (6) Hypertension: Plan: Hypertension Creatinine baseline approximately 2.52.8, 2.75 on admission. Creatinine on admission is the upper range of his normal, if it further rises hold losartan, metolazone, Bumex, and Farxiga Losartan continued - Mildly hypertensive on admit. 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 Converted to basal bolus while inpatient. Pharmacy glycemic consult placed BSG on admission 111 Plan DVT prophylaxis: Heparin Disposition: PCU CODE STATUS: Full code Diet: Heart healthy/DM 1 History of Present Illness Primary Care Provider: DO Dayton Oneill is a 72yo M who presents on referal from home health for bradycardia to the 30s with lightheadedness and dizziness bu tno chest pain or syncope. On arrival to ER 60-70s with a trop normally in 20s --> 60s to 120 on ER recheck. No heartblock or acute ischemic changes on EKG. Had an episode where he felt very week, cold, and lightheaded. Home health checked HR and was in the 30s. CHecked his BSG which was 120. BP was normal at the time. Patient was brought into the ED. Denies fever, sweats. Cold, but no shaking chills. No chest pain. No dyspnea. No nausea or vomiting. NO recent illnesses. Did not take his morning medications. Thinks he is still on diltiazem, notes the EMR is up to date and the only chages were vitamin d to weekly and asa to 81mg from full dose No tick bites or rashes. Endorses dry skin No tobacco or etoh use Alleriges reviewed. FQs and sulfa --> rash/itching CODE FULL Allergies Allergy/AdvReac Type Severity Reaction Status Date / Time sulfamethoxazole Allergy Intermediate Rash Verified 05/27/23 15:04 trimethoprim Allergy Intermediate Rash Verified 05/27/23 15:04 Quinolones Allergy Mild Itchiness Verified 05/27/23 15:04 ofloxacin [From Floxin] Allergy itching Verified 05/27/23 15:04 Home Medications Medication Instructions Recorded Confirmed Type aspirin 325 mg tablet 325 mg PO QAM 12/27/17 05/28/23 History latanoprost 0.005 % eye drops 1 drp OPB HS 12/27/17 05/28/23 History (Xalatan) lancets (TelepartnerTouch UltraSoft #50 ea 12/12/18 05/11/23 History Lancets) cholecalciferol (vitamin D3) 50 2,000 units PO QAM 11/10/19 05/28/23 History mcg (2,000 unit) capsule (Vitamin D3) Wheelchair (Powered) #1 ea 11/22/19 05/28/23 Rx blood sugar diagnostic (TelepartnerTouch #100 ea 01/31/20 05/11/23 Rx Ultra Blue Test Strip) brimonidine 0.2 % eye drops 1 drp OPB BID 12/07/20 05/28/23 History dorzolamide 2 % eye drops 1 drp OPB BID 12/07/20 05/28/23 History timolol maleate 0.5 % eye gel 1 drp OPB BID 12/07/20 05/28/23 History forming solution ascorbic acid (vitamin C) 500 mg 500 mg PO QAM 02/19/21 05/28/23 History capsule potassium gluconate 595 mg (99 mg) 1,785 mg PO QAM 06/09/21 05/28/23 History tablet flash glucose scanning reader #1 ea 12/17/21 05/11/23 Rx (FreeStyle Farhad 2 [place]) flash glucose sensor (FreeStyle #2 ea 08/06/22 05/11/23 Rx Farhad 2 Sensor kit) trazodone 50 mg tablet 50 mg PO HS 10/12/22 05/28/23 History atorvastatin 80 mg tablet (Lipitor) 80 mg PO QAM #90 tabs 12/18/22 05/28/23 Rx losartan 100 mg tablet 100 mg PO QAM #90 tabs 12/23/22 05/28/23 Rx diltiazem HCl 240 mg 240 mg PO DAILY #90 caps 01/21/23 05/28/23 Rx capsule,extended release 24 hr calcitriol 0.5 mcg capsule 1 mcg (2 x 0.5 mcg) PO QAM #60 caps 01/25/23 05/28/23 Rx albuterol sulfate 90 mcg/actuation 2 puff inhalation Q6H PRN 02/10/23 05/28/23 Rx aerosol inhaler shortness of breath or wheezing #18 grams pen needle, diabetic 32 gauge x #400 ea 02/25/23 05/11/23 Rx 5/32" (BD Ultra-Fine [place] Pen Needle) ropinirole 1 mg tablet 3 mg (3 x 1 mg) PO HS #270 tabs 03/16/23 05/28/23 Rx bumetanide 2 mg tablet 4 mg (2 x 2 mg) PO BID #120 tabs 04/09/23 05/28/23 Rx insulin NPH isoph U-100 human 100 30 unit (0.3 mL) subcut BID #10 mL 04/19/23 05/28/23 Rx unit/mL subcutaneous suspension (Novolin N NPH U-100 Insulin isophane) insulin regular human 100 unit/mL 1 sliding scale dose subcut 04/19/23 05/28/23 Rx injection solution (Humulin R USEASDIRECTD #10 mL Regular U-100 Insulin) cyanocobalamin (vitamin B-12) 500 1,000 mcg (2 x 500 mcg) PO QAM #0 05/04/23 05/28/23 Rx mcg tablet tabs ketoconazole 2 % shampoo 1 applic topical .Wed/Wed/Wednesday05/04/23 05/28/23 Rx #120 mL metolazone 5 mg tablet 5 mg PO UD PRN weight gain #30 tabs 05/04/23 05/28/23 Rx sertraline 25 mg tablet 25 mg PO DAILY #30 tabs 05/04/23 05/28/23 Rx empagliflozin 10 mg tablet 10 mg PO DAILY #30 tabs 05/27/23 05/28/23 Rx (Jardiance) ergocalciferol (vitamin D2) 1,250 50,000 unit PO WEEKLY #12 caps 05/27/23 05/28/23 Rx mcg (50,000 unit) capsule Past Med/Surg History Medical History (Updated 05/28/23 @ 18:07 by Keron Caputo MD) Influenza A virus subtype H1 2008 pandemic strain present Slow to wake up after anesthesia Acute kidney failure Anemia of chronic disease Wound of lower extremity RLE wound "improved" per 01/27/21 wound clinic visit ([facility]); surgeon aware of patient's wound hx per 01/2021 office visit note; "only has a little scab there now, keeps it covered to protect it." Diabetes, type I Chronic kidney disease, stage 4 (severe) Nephrotic syndrome HF clinic office visit (02/08/20): "referred to the program for assistance with management of diuretic resistant hypervolemia in the setting of nephrotic syndrome. His hypervolemia is not felt to be secondary to heart failure. He has been stable on Bumex 3 mg BID. His weight has been stable. Follow up labs demonstrate kidney function and electrolytes stable. Discussed consistent daily standing weights. I&Os. 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 GERD (gastroesophageal reflux disease) Mild obstructive sleep apnea "Mild" > no device Restless leg syndrome History of TIA (transient ischemic attack) ~2009>over his left eye, no residual symptoms Surgical History (Updated 05/07/23 @ 00:10 by Background Russ) Status post below knee amputation of left lower extremity S/P arteriovenous (AV) fistula creation left>no currently having dialysis History of esophagogastroduodenoscopy (EGD) History of colonoscopy S/P lumbar laminectomy S/P foot surgery S/P eye surgery B/L x3 (for glaucoma) S/P CABG x 4 CABG x4 (2011), [facility]; f/u PCP History of lumbar discectomy History of tonsillectomy Family History Father , age 78 with prostate cancer Colorectal cancer Cardiovascular disease Diabetes Prostate cancer Grandmother (Maternal) Diabetes Mother , age 54 of throat cancer Throat cancer Denies family history of Ovarian cancer Myocardial infarction Breast cancer Social History Smoking Status: Current every day smoker Second Hand Exposure: No; Do You Dip or Chew Tobacco: No; Hx Alcohol Use: No Hx Substance Use: No Preferred Language: Kiswahili Communication Ability: Effective Visual Impairment: No Limitations Hearing Ability: Normal Trapeze Performer Required: No Beliefs That Will Affect Care: Spiritism Spiritism Beliefs: Buddhism marital status: / marital status details: lost August 2021 Current Living Situation: Alone current occupational status: retired current occupation: How many Children do You have: 2 other: Retired age 63-1/2. Feels Safe at Home: Yes Childhood Exposure to Second-Hand Smoke: No Diet: regular caffeine: No during the past year weight has: remained stable Dental Care, Regularly: Yes Physical Activity Frequency: Other Physical Activity Frequency Comment: limited d/t disability Seatbelt Use: always Sunscreen Use: Yes Assistive Devices: Prosthesis, Scooter/Electric Scooter, Special Shoe and Walker Physical Exam Physical Exam: General: A&Ox3. NAD. Cooperative. HEENT: Atraumatic, normocephalic. Pulm: CTAB A&P. -wheezes, -rales, -rhonchi. Symmetrical chest rise. No increased work of breathing. No respiratory distress. Cardiac: RRR, +sm. Radial pulses intact and symmetrical. trace ankle edema Abdominal: Nontender, nondistended, soft. BS present. Results & Data Results & Data Vital Signs (Past 12 Hours) Vital Signs Temp Pulse Pulse Resp BP BP Pulse Ox 05/28/23 16:14 81 05/28/23 16:13 76 12 174/89 H 93 05/28/23 13:48 16 05/28/23 13:48 05/28/23 13:48 36.6 C 71 18 165/119 H 95 O2 Del Method 05/28/23 16:14 05/28/23 16:13 Room Air 05/28/23 13:48 05/28/23 13:48 Room Air 05/28/23 13:48 PG Care Time/CCT Total # of Minutes Spent Total Time Spent with Patient: Total time spent is greater than 50% in coordination of care (as documented) at patient's floor/unit and/or counseling patient: Coding Level of Care Code 75903 INT INP/OBS CARE 3/75MIN Diagnoses Bradycardia R00.1 Chronic heart failure with preserved ejection fraction I50.32 Heart failure chronicity: chronic S/P CABG x 4 Z95.1 Chronic kidney disease, stage 4 (severe) N18.4 GERD (gastroesophageal reflux disease) K21.9 Primary hypertension I10 Hypertension type: primary hypertension 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, with long-term current use of insulin E10.319; E10.65 (2) (HFpEF) heart failure with preserved ejection fraction Heart failure chronicity: chronic Qualified Code(s): I50.32 - Chronic diastolic (congestive) heart failure (6) Hypertension Hypertension type: primary hypertension Qualified Code(s): I10 - Essential (primary) hypertension
[2023-05-28] MEDS ORDERED: ACETAMINOPHEN 325 MG TAB PO PRN (18:11)
[2023-05-28] MEDS ORDERED: ATROPINE SULFATE 0.1 MG/ML 5ML SYR IV PRN (18:14)
--- NOTE | 2023-05-28 18:37 | XRay Report ---
XR chest 1V portable HISTORY: dysrhythmia COMPARISON: Chest 04/29/2023. FINDINGS: Slightly rotated study. No pneumothorax. There are poststernotomy changes. Cardiomegaly aga in noted. No new focal lung consolidations to suggest a pneumonia. Lumbar spinal fusion hardware is p artially visualized. No pleural effusions. The interstitial/vascular thickening has improved. This armenta ggests mild pulmonary edema. No acute fractures. IMPRESSION: Cardiomegaly with mild improvement in the pulmonary edema. ACT 112: Negative or not required by law. Electronically signed by: Abilio Soto M.D. 05/28/2023 6:36 PM
[2023-05-28] MEDS ORDERED: ALBUTEROL HFA 8 GM INHALER INH PRN (19:35)
[2023-05-28] MEDS ORDERED: GLUCOSE 40% GEL 15 GM TUBE PO PRN (19:35)
[2023-05-28] MEDS ORDERED: PHARMACY GLYCEMIC MGMT CONSULT PRN (19:35)
[2023-05-28] MEDS ORDERED: GLUCOSE 10 TAB/TUBE PO PRN (19:35)
[2023-05-28] MEDS ORDERED: DEXTROSE 50% 50 ML SYRINGE IV PRN (19:35)
[2023-05-28] MEDS ORDERED: amLODIPine BESYLATE 5 MG TAB PO PRN (19:35)
[2023-05-28] MEDS ORDERED: GLUCAGON FOR INJ 1 MG VIAL SQ PRN (19:35)
[2023-05-28] MEDS: HEPARIN SOD 5,000 UNIT/0.5 ML VIAL SQ SCH (23:06)
[2023-05-28] MEDS: traZODone HCL 50 MG TAB PO SCH (23:06)
[2023-05-28] MEDS: BUMETANIDE 1 MG TAB PO SCH (23:06)
[2023-05-28] MEDS: rOPINIRole HCL 1 MG TABLET PO SCH (23:06)
[2023-05-28] MEDS: LATANOPROST 0.005% OP SOLN 2.5 ML BTL OPB SCH (23:07)
[2023-05-28] MEDS: TIMOLOL GFS 0.5% OPH SOLN 74 DROPS/5 ML BTL OPB SCH (23:07)
[2023-05-28] MEDS: BRIMONIDINE TARTRATE 0.2% 5ML OPB SCH (23:08)
[2023-05-28] MEDS: DORZOLAMIDE HCL 2% OPH SOLN 10 ML BTL OPB SCH (23:08)
[2023-05-28] MEDS: LANTUS PER UNIT CHARGE SQ SCH (23:20)
[2023-05-28] MEDS: INSULIN ASPART PER UNIT CHARGE SC SCH (23:21)
[2023-05-29 02:31] LABS: Basophils # (auto) 0.03 K/uL (0.00-0.20); Basophils % (auto) 0.4 %; Eosinophils # (auto) 0.22 K/uL (0.00-0.50); Hematocrit (blood only) 37.7 % (42.0-52.0); Hemoglobin 12.5 g/dl (14.0-18.0); Immature Granulocytes # (auto) 0.02 K/uL (0.01-0.20); Immature Granulocytes % (auto) 0.3 %; Lymphocytes # (auto) 0.87 K/uL (1.20-3.40); Lymphocytes % (auto) 11.9 %; Mean Corpuscular Hemoglobin 30.7 pg (25.0-34.0); Mean Corpuscular Hgb Conc 33.2 g/dL (32.0-36.0); Mean Corpuscular Volume 92.6 fL (80.0-100.0); Mean Platelet Volume 12.7 fL (9.4-12.4); Monocytes # (auto) 0.57 K/uL (0.11-0.59); Monocytes % (auto) 7.8 %; Neutrophils # (auto) 5.61 K/uL (1.40-6.50); Neutrophils % (auto) 76.6 %; Platelet Count 174 K/uL (130-400); RDW Coefficient of Variation 13.7 % (11.5-14.5); RDW Standard Deviation 46.7 fL (36.4-46.3); Red Blood Count 4.07 M/uL (4.70-6.10); White Blood Count 7.32 K/ul (4.8-10.8)
[2023-05-29 02:47] LABS: BUN Creatinine Ratio 25.3 (10-20); Creatinine Clr Calc Pharmacy 29.6 ml/min; Est GFR (African American) 27.3 ml/min; Est GFR (Non-African American) 23.6 ml/min; Potassium 3.8 mmol/L (3.5-5.1)
[2023-05-29 07:06] LABS: Estimated Average Glucose 206 mg/dl; Hemoglobin A1C 8.8 % (4.5-5.6)
[2023-05-29] MEDS: ASPIRIN 81 MG ECTAB PO SCH (08:04)
[2023-05-29] MEDS: ATORVASTATIN 40 MG TAB PO SCH (08:05)
[2023-05-29] MEDS: EMPAGLIFLOZIN 10 MG TAB PO SCH (08:07)
[2023-05-29] MEDS: CYANOCOBALAMIN (B-12) 500 MCG TABLET PO SCH (08:08)
[2023-05-29] MEDS: CALCITRIOL 0.25 MCG CAPSULE PO SCH (08:09)
[2023-05-29] MEDS: SERTRALINE HCL 50 MG TABLET PO SCH (08:09)
[2023-05-29] MEDS: LOSARTAN POTASSIUM 50 MG TAB PO SCH (08:10)
[2023-05-29] MEDS ORDERED: NON-FORMULARY MEDICATION (Potassium Gluconate 595 mg (99 mg) tablet) PO SCH (09:00)
[2023-05-29] MEDS: LANTUS PER UNIT CHARGE SQ SCH ×2 (09:37→20:52)
--- NOTE | 2023-05-29 10:08 | XCELERA ---
[id number]
--- NOTE | 2023-05-29 14:27 | Hospitalist Progress Note ---
Date of Service May 29, 2023 Assessment & Plan (1) Ventricular bigeminy: Plan: Fortunately this was captured on EKG as obtained by EMS upon arrival to the pt's home. The ventricular bigeminy was the likely cause of his symptoms. Can't rule out other dysrhythmia, AV block, etc but much less likely. Since arrival to [facility] he has had no further ventricular bigem. He has been NSR on the monitor with no significant bradycardia, pauses or AV block. It is likely that his pulse was felt to be low (as described by the home health nurse) as a result of the ventricular bigem itself. Ideally his ventricular bigem is treated with a beta luiz but he has do cumented beta luiz intolerance. His cardizem has been stopped. I spoke informally today with Dr Monroe from cardiology. He recommends a 3-day monitor at home to capture how frequently this is occurring, how many PVCs he is having, and to rule out other entities - etc. Will keep him off the cardizem. Patient already follows with MIAH Loaiza, in the cardiology clinic - will need close f/u with him post-d/c. Will watch overnight and, if stable tele, can likely d/c home tomorrow. (2) Elevated troponin: Plan: 2nd to #1? He does have known CAD but he had no true ischemic symptoms at home prior to presentation - mainly dizziness, lightheadedness, etc. Will d/w cardiology the elevated troponin. (3) Bradycardia: Plan: 2nd to #1 Has had sinus donta in the past as well per records Known intolerance to beta blockers Will also stop the cardizem TSH wnl Lyme negative Other electrolytes wnl (4) (HFpEF) heart failure with preserved ejection fraction: Plan: 2022 echo with EF of 55-60% EF on today's echo now 45-50% etiology? ischemic? due to frequent PVCs? non-ischemic? other? 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, with long-term current use of insulin: Plan: Patient is on NPH 30 units twice daily and sliding scale Humalog at home Pharmacy glycemic team is managing his DM Appreciate their assistance Hb a1c 8.8% this admission (10) Status post below knee amputation of left lower extremity: Plan: no issues at this time has prosthetic leg w/ him (11) Nephrotic syndrome: Plan: leading to CKD stage 4 Cr at baseline today cont diuretics (12) Depression: Plan: this is MUCH improved in comparison to when I took care of him in early April cont sertraline cont trazodone (for sleep) Plan DVT prophylaxis: Heparin 5000 BID again care was informally d/w Dr Monroe by phone today Admission and Anticipated Discharge Date Admission Date: May 28, 2023 Subjective patient resting in bed watching TV during the visit he offers no complaints he feels well he has had no dizziness, lightheadedness, chest pain, dyspnea, or FRIEDMAN eating well patient recounts the following - yesterday am he woke up later than usual, about 1130 when he awoke he said "I just didn't feel well" while lying in his bed he felt cold, dizzy, and lightheaded he had no chest pain or dyspnea during the event he heard someone knocking at his front door he transferred from his bed to his power chair he continued to feel poorly he got to the front door and it was his home health nurse when she came in she took his vitals and his HR was noted to be in the 30s because of how he was feeling she dialed 911 and EMS was summoned around the same time he took his BSG and it was >100 when EMS arrived and he was placed in the ambulance an EKG was done I was able to review this EKG - it showed NSR with ventricular bigeminy Rate was ~70 Patient reports that by the time of arrival to [facility] he felt normal Since arrival here he has had NO further dizziness or other symptoms He does not recall having symptoms like this in the past Telemetry since admission - NSR, no bigem or trigem, no AV block, no pauses , no rapid arrhythmias Review of Systems Review of Systems: gen - eating well cv - no recent cp, no recent orthopnea, no PND, no edema pulm - no dyspnea or FRIEDMAN GI - no abd pain or N/V Physical Exam Physical Exam: gen - obese, NAD, pleasant neck - no JVD mouth - MMM heart - RRR, s1 s2 lungs - CTA b/l abd - soft NT ND BS+ ext - trace edema right foot, pulses R foot 2+; left AKA psych - a/o x 3 Results & Data Results & Data Vital Signs (Past 12 Hours) Vital Signs Temp Pulse Pulse Resp BP Pulse Ox O2 Del Method 05/29/23 11:55 36.7 C 58 L 121/54 L 93 Room Air 05/29/23 07:39 68 05/29/23 07:18 36.8 C 71 146/64 H 94 Room Air 05/29/23 03:01 36.8 C 67 18 131/65 91 Room Air Laboratory Results Laboratory Results - last 24 hr 05/28/23 05/28/23 05/28/23 13:52 14:21 16:12 WBC 10.02 RBC 4.29 L Hgb 13.4 L Hct 40.1 L MCV 93.5 MCH 31.2 MCHC 33.4 RDW Std Deviation 46.8 H RDW Coeff of Jose 13.7 Plt Count 161 MPV 13.2 H Immature Gran % (Auto) 0.5 Neut % (Auto) 88.4 Lymph % (Auto) 4.7 [place] % (Auto) 5.5 Eos % (Auto) 0.5 Baso % (Auto) 0.4 Neut # (Auto) 8.86 H Lymph # (Auto) 0.47 L [place] # (Auto) 0.55 Eos # (Auto) 0.05 Baso # (Auto) 0.04 Immature Gran # (Auto) 0.05 Sodium 136 Potassium 4.3 Chloride 97 L Carbon Dioxide 29 Anion Gap 10 BUN 71 H Creatinine 2.75 H Est Cr Clr Drug Dosing 29.0 Est GFR ( Amer) 25.2 Est GFR (Non-Af Amer) 21.7 BUN/Creatinine Ratio 25.8 H Glucose 111 H POC Glucose Estimat Average Glucose Hemoglobin A1c Calcium 9.4 Magnesium 2.3 Total Bilirubin 0.5 AST 17 ALT 14 Alkaline Phosphatase 84 Troponin I High Sens 67.6 H* 127.0 H* D Total Protein 7.3 Albumin 4.0 Globulin 3.3 Albumin/Globulin Ratio 1.2 TSH 1.432 Lyme Disease Screen Negative SARS-CoV-2 (PCR) NEGATIVE Hepatitis C Ab (EIA) 05/28/23 05/28/23 05/29/23 19:56 23:15 02:19 WBC 7.32 RBC 4.07 L Hgb 12.5 L Hct 37.7 L MCV 92.6 MCH 30.7 MCHC 33.2 RDW Std Deviation 46.7 H RDW Coeff of Jose 13.7 Plt Count 174 MPV 12.7 H Immature Gran % (Auto) 0.3 Neut % (Auto) 76.6 Lymph % (Auto) 11.9 [place] % (Auto) 7.8 Eos % (Auto) 3.0 Baso % (Auto) 0.4 Neut # (Auto) 5.61 Lymph # (Auto) 0.87 L [place] # (Auto) 0.57 Eos # (Auto) 0.22 Baso # (Auto) 0.03 Immature Gran # (Auto) 0.02 Sodium 135 L Potassium 3.8 Chloride 98 Carbon Dioxide 27 Anion Gap 10 BUN 65 H Creatinine 2.57 H Est Cr Clr Drug Dosing 29.6 Est GFR ( Amer) 27.3 Est GFR (Non-Af Amer) 23.6 BUN/Creatinine Ratio 25.3 H Glucose 196 H POC Glucose 162 H 241 H Estimat Average Glucose 206 Hemoglobin A1c 8.8 H Calcium 9.0 Magnesium Total Bilirubin AST ALT Alkaline Phosphatase Troponin I High Sens 320.1 H* D Total Protein Albumin Globulin Albumin/Globulin Ratio TSH Lyme Disease Screen SARS-CoV-2 (PCR) Hepatitis C Ab (EIA) Pending 05/29/23 05/29/23 05/29/23 07:05 08:17 11:22 WBC RBC Hgb Hct MCV MCH MCHC RDW Std Deviation RDW Coeff of Jose Plt Count MPV Immature Gran % (Auto) Neut % (Auto) Lymph % (Auto) [place] % (Auto) Eos % (Auto) Baso % (Auto) Neut # (Auto) Lymph # (Auto) [place] # (Auto) Eos # (Auto) Baso # (Auto) Immature Gran # (Auto) Sodium Potassium Chloride Carbon Dioxide Anion Gap BUN Creatinine Est Cr Clr Drug Dosing Est GFR ( Amer) Est GFR (Non-Af Amer) BUN/Creatinine Ratio Glucose POC Glucose 186 H 245 H Estimat Average Glucose Hemoglobin A1c Calcium Magnesium Total Bilirubin AST ALT Alkaline Phosphatase Troponin I High Sens 290.2 H* Total Protein Albumin Globulin Albumin/Globulin Ratio TSH Lyme Disease Screen SARS-CoV-2 (PCR) Hepatitis C Ab (EIA) PG Care Time/CCT Total # of Minutes Spent Total Time Spent with Patient: Total time spent is greater than 50% in coordination of care (as documented) at patient's floor/unit and/or counseling patient: Coding Level of Care Code 36664 SUB INP/OBS CARE 3/50MIN Diagnoses Ventricular bigeminy I49.8 Elevated troponin R79.89 Bradycardia R00.1 Chronic heart failure with preserved ejection fraction I50.32 Heart failure chronicity: chronic S/P CABG x 4 Z95.1 Chronic kidney disease, stage 4 (severe) N18.4 GERD (gastroesophageal reflux disease) K21.9 Primary hypertension I10 Hypertension type: primary hypertension 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, with long-term current use of insulin E10.319; E10.65 Status post below knee amputation of left lower extremity Z89.512 Nephrotic syndrome N04.9 Depression F32.A (4) (HFpEF) heart failure with preserved ejection fraction Heart failure chronicity: chronic Qualified Code(s): I50.32 - Chronic diastolic (congestive) heart failure (8) Hypertension Hypertension type: primary hypertension Qualified Code(s): I10 - Essential (primary) hypertension
[2023-05-29] MEDS: CARBOHYDRATES FOR HYPOGLYCEMIA PO PRN (20:30)
[2023-05-30] MEDS: INSULIN ASPART PER UNIT CHARGE SC SCH ×3 (00:10→22:11)
[2023-05-30 06:43] LABS: BUN Creatinine Ratio 26.3 (10-20); Calcium 9.1 mg/dl (8.6-10.3); Creatinine Clr Calc Pharmacy 27.1 ml/min; Est GFR (African American) 24.5 ml/min; Est GFR (Non-African American) 21.2 ml/min; Potassium 3.6 mmol/L (3.5-5.1)
--- NOTE | 2023-05-30 10:57 | Cardiology Consultation ---
Date of Consultation May 30, 2023 Assessment & Plan (1) Bradycardia: (2) Ventricular bigeminy: (3) CAD, multiple vessel: (4) Cardiomyopathy: (5) Non-ST elevation WI (NSTEMI): Plan 1. Bradycardia: We have not identified sinus bradycardia, his slow heart rate observed at home (which I believe was a slow pulse rate) was presumably due to a pulse deficit due to frequent premature ventricular beats. 2. Ventricular bigeminy: He is reported to have ventricular bigeminy (I believe that was recorded however I do not see the recordings in the chart) which would explain his low pulse rate. We may need to treat his premature ventricular beats to minimize bradycardia although I am not sure how symptomatic he is from them. He has not tolerated beta-blockade in the past, we could consider antiarrhythmic therapy or even PVC ablation but the frequency on telemetry is no t terribly concerning. Before moving onto these measures I would prefer to document that his symptoms are due to frequent PVCs.. 3. Coronary disease: He has known coronary artery disease and he did have a significant elevation of troponin. Bradycardia due to PVCs itself would not be likely to raise the troponin, which does raise the question of some other issue such as progression of coronary artery disease as a cause of his symptoms. 4. Cardiomyopathy: He seems to have developed left ventricular dysfunction since his last echocardiogram, although frequent premature ventricular beats can do it the finding of an elevated troponin on this presentation and his history of known coronary artery disease suggest that there may be an ischemic component. We will need to evaluate him for ischemia. 5. NSTEMI: Technically he has an NSTEMI, his troponins were not terribly high but they are clearly elevated and this is somewhat worrisome. At this point I would lean toward cardiac catheterization. The main concern would be his kidney function, I suspect for diagnostic catheterization his creatinine is acceptable but I would like my invasive partners to review the situation and see if they feel catheterization is indicated and safe. I will make him n.p.o. after midnight in case we can do this tomorrow. I discussed this with the patient and he is agreeable. History of Present Illness Attending Physician: Jake Moses MD History of Present Illness This is a 72-year-old male who has a history of coronary artery disease including bypass surgery in 2012, diabetes mellitus, dyslipidemia, chronic kidney disease with nephrotic syndrome and peripheral arterial disease. He has had a lot of difficulty with hypervolemia and is followed in heart failure area. This is felt due to nephrotic syndrome not primary heart disease. He did however present to the emergency room on May 28, 2023 with symptoms of "feeling cold" and having bradycardia noted by home health care, with a heart rate noted to be in the mid 30s (which I suspect was a pulse rate not a true heart rate). EMS observed ventricular bigeminy which may have lowered his effective heart rate. He has had beta-luiz intolerance in the past. His electrocardiogram on May 28, 2023 showed sinus rhythm at 68 bpm with premature ventricular beats and right bundle branch block. The right bundle branch block is not new. An echocardiogram done May 29, 2023 shows mild left ventricular dysfunction with moderate concentric left ventricular hypertrophy and diastolic dysfunction. His ejection fraction was felt to be 45 to 50%. A prior echocardiogram February 04, 2023 showed normal left ventricular systolic function at 55 to 60%. High-sensitivity troponins have been measured 5 times, they range from 67.6 on presentation to 320 maximum about 12 hours later and have now dropped back to 202 on the afternoon of May 29, 2023. Telemetry shows sinus rhythm and sinus bradycardia with a heart rate consistently in the 50s to 60s with occasional but not excessive premature ventricular beats. At the time of my evaluation he denied chest discomfort, he does have a leg amputation and cannot be very active. He has not had recurrence of the symptoms following presentation. He may have had occasional lightheadedness, he has not had presyncope or syncope. Allergies Allergy/AdvReac Type Severity Reaction Status Date / Time sulfamethoxazole Allergy Intermediate Rash Verified 05/27/23 15:04 trimethoprim Allergy Intermediate Rash Verified 05/27/23 15:04 Quinolones Allergy Mild Itchiness Verified 05/27/23 15:04 ofloxacin [From Floxin] Allergy itching Verified 05/27/23 15:04 Home Medications Medication Instructions Recorded Confirmed Type aspirin 325 mg tablet 325 mg PO QAM 12/27/17 05/28/23 History latanoprost 0.005 % eye drops 1 drp OPB HS 12/27/17 05/28/23 History (Xalatan) lancets (OneTouch UltraSoft #50 ea 12/12/18 05/11/23 History Lancets) cholecalciferol (vitamin D3) 50 2,000 units PO QAM 11/10/19 05/28/23 History mcg (2,000 unit) capsule (Vitamin D3) Wheelchair (Powered) #1 ea 11/22/19 05/28/23 Rx blood sugar diagnostic (OneTouch #100 ea 01/31/20 05/11/23 Rx Ultra Blue Test Strip) brimonidine 0.2 % eye drops 1 drp OPB BID 12/07/20 05/28/23 History dorzolamide 2 % eye drops 1 drp OPB BID 12/07/20 05/28/23 History timolol maleate 0.5 % eye gel 1 drp OPB BID 12/07/20 05/28/23 History forming solution ascorbic acid (vitamin C) 500 mg 500 mg PO QAM 02/19/21 05/28/23 History capsule potassium gluconate 595 mg (99 mg) 1,785 mg PO QAM 06/09/21 05/28/23 History tablet flash glucose scanning reader #1 ea 12/17/21 05/11/23 Rx (FreeStyle Farhad 2 [place]) flash glucose sensor (FreeStyle #2 ea 08/06/22 05/11/23 Rx Farhad 2 Sensor kit) trazodone 50 mg tablet 50 mg PO HS 10/12/22 05/28/23 History atorvastatin 80 mg tablet (Lipitor) 80 mg PO QAM #90 tabs 12/18/22 05/28/23 Rx losartan 100 mg tablet 100 mg PO QAM #90 tabs 12/23/22 05/28/23 Rx diltiazem HCl 240 mg 240 mg PO DAILY #90 caps 01/21/23 05/28/23 Rx capsule,extended release 24 hr calcitriol 0.5 mcg capsule 1 mcg (2 x 0.5 mcg) PO QAM #60 caps 01/25/23 05/28/23 Rx albuterol sulfate 90 mcg/actuation 2 puff inhalation Q6H PRN 02/10/23 05/28/23 Rx aerosol inhaler shortness of breath or wheezing #18 grams pen needle, diabetic 32 gauge x #400 ea 02/25/23 05/11/23 Rx 5/32" (BD Ultra-Fine [place] Pen Needle) ropinirole 1 mg tablet 3 mg (3 x 1 mg) PO HS #270 tabs 03/16/23 05/28/23 Rx bumetanide 2 mg tablet 4 mg (2 x 2 mg) PO BID #120 tabs 04/09/23 05/28/23 Rx insulin NPH isoph U-100 human 100 30 unit (0.3 mL) subcut BID #10 mL 04/19/23 05/28/23 Rx unit/mL subcutaneous suspension (Novolin N NPH U-100 Insulin isophane) insulin regular human 100 unit/mL 1 sliding scale dose subcut 04/19/23 05/28/23 Rx injection solution (Humulin R USEASDIRECTD #10 mL Regular U-100 Insulin) cyanocobalamin (vitamin B-12) 500 1,000 mcg (2 x 500 mcg) PO QAM #0 05/04/23 05/28/23 Rx mcg tablet tabs ketoconazole 2 % shampoo 1 applic topical .Wed/Wed/Wednesday05/04/23 05/28/23 Rx #120 mL metolazone 5 mg tablet 5 mg PO UD PRN weight gain #30 tabs 05/04/23 05/28/23 Rx sertraline 25 mg tablet 25 mg PO DAILY #30 tabs 05/04/23 05/28/23 Rx empagliflozin 10 mg tablet 10 mg PO DAILY #30 tabs 05/27/23 05/28/23 Rx (Jardiance) ergocalciferol (vitamin D2) 1,250 50,000 unit PO WEEKLY #12 caps 05/27/23 05/28/23 Rx mcg (50,000 unit) capsule Patient History Medical History Influenza A virus subtype H1 2009 pandemic strain present Slow to wake up after anesthesia Acute kidney failure Anemia of chronic disease Wound of lower extremity RLE wound "improved" per 01/27/21 wound clinic visit ([facility]); surgeon aware of patient's wound hx per 01/2021 office visit note; "only has a little scab there now, keeps it covered to protect it." Diabetes, type I Chronic kidney disease, stage 4 (severe) Nephrotic syndrome HF clinic office visit (02/08/20): "referred to the program for assistance with management of diuretic resistant hypervolemia in the setting of nephrotic syndrome. His hypervolemia is not felt to be secondary to heart failure. He has been stable on Bumex 3 mg BID. His weight has been stable. Follow up labs demonstrate kidney function and electrolytes stable. Discussed consistent daily standing weights. I&Os. 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 GERD (gastroesophageal reflux disease) Mild obstructive sleep apnea "Mild" > no device Restless leg syndrome History of TIA (transient ischemic attack) ~2009>over his left eye, no residual symptoms Surgical History Status post below knee amputation of left lower extremity S/P arteriovenous (AV) fistula creation left>no currently having dialysis History of esophagogastroduodenoscopy (EGD) History of colonoscopy S/P lumbar laminectomy S/P foot surgery S/P eye surgery B/L x3 (for glaucoma) S/P CABG x 4 CABG x4 (2011), [facility] [place]; f/u PCP History of lumbar discectomy History of tonsillectomy Family History Father , age 78 with prostate cancer Colorectal cancer Cardiovascular disease Diabetes Prostate cancer Grandmother (Maternal) Diabetes Mother , age 54 of throat cancer Throat cancer Denies family history of Ovarian cancer Myocardial infarction Breast cancer Social History Second Hand Exposure: No; Do You Dip or Chew Tobacco: No; Hx Alcohol Use: No Hx Substance Use: No Preferred Language: Jamaican Communication Ability: Effective Visual Impairment: No Limitations 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 Feels Safe at Home: Yes Safety Concerns: Feels Safe At This Time Childhood Exposure to Second-Hand Smoke: No Diet: regular caffeine: No during the past year weight has: remained stable Dental Care, Regularly: Yes Physical Activity Frequency: Other Physical Activity Frequency Comment: limited d/t disability Seatbelt Use: always Sunscreen Use: Yes Assistive Devices: Prosthesis, Scooter/Electric Scooter and Walker Review of Systems Review of Systems: All systems reviewed & are unremarkable except as noted in HPI & below Physical Exam Physical Exam: Constitutional: Alert, cooperative and in no distress. HEENT: Unremarkable Neck: No jugular venous distention, carotid pulses are normal and equal bilaterally without bruits. Pulmonary: Clear to auscultation bilaterally. Cardiac: Regular rhythm with no murmur, gallop or rub. Abdomen: Soft, nontender with normal bowel sounds. Extremities: No edema. Right leg amputation Neurologic: No focal findings. Skin: No rash, ecchymoses or petechiae. Results & Data Vital Signs (Past 12 Hours) Vital Signs Temp Pulse Pulse Resp BP BP Pulse Ox 05/30/23 07:23 36.5 C 55 L 17 146/66 H 94 05/30/23 07:07 56 L 05/30/23 03:00 36.3 C L 58 L 18 119/61 93 05/29/23 23:49 63 O2 Del Method 05/30/23 07:23 Room Air 05/30/23 07:07 05/30/23 03:00 Room Air 05/29/23 23:49 Laboratory Results Comprehensive Metabolic Panel 05/30/23 Range/Units 05:36 Sodium 136 (136-145) mmol/L Potassium 3.6 (3.5-5.1) mmol/L Chloride 97 L (98-107) mmol/L Carbon Dioxide 30 (21-32) mmol/L BUN 74 H (6-23) mg/dl Creatinine 2.81 H (0.6-1.4) mg/dl Glucose 125 H (70-99(Fasting)) mg/dl Calcium 9.1 (8.6-10.3) mg/dl Intake and Output 05/30/23 05/30/23 05/30/23 06:59 14:59 22:59 Output Total 1300 / 2851 250 / 250 Balance -1300 / -2851 -250 / -250 Output: Urine 1300 / 2850 250 / 250 Other: # Unmeasured Voids 1 Weight 105.2 kg Weight Measurement Method Built in Bedscale Diagnostic Findings Telemetry: Sinus rhythm, heart rate typically 50 to 60 bpm, premature ventricular beats, brief episodes of bigeminy but nothing sustained. PG Care Time/CCT Total # of Minutes Spent Total Time Spent with Patient: Total time spent is greater than 50% in coordination of care (as documented) at patient's floor/unit and/or counseling patient: Coding Level of Care Code 16443 INT INP/OBS CARE 3/75MIN Diagnoses Bradycardia R00.1 Ventricular bigeminy I49.8 CAD, multiple vessel I25.10 Cardiomyopathy, unspecified type I42.9 Cardiomyopathy type: unspecified Non-ST elevation WI (NSTEMI) I21.4 (4) Cardiomyopathy Cardiomyopathy type: unspecified Qualified Code(s): I42.9 - Cardiomyopathy, unspecified
--- NOTE | 2023-05-30 14:21 | Pharmacy Report ---
Pharmacy Glycemic Short Note 2 - Date of Service May 30, 2023 - Glycemic Short BSG Results (Last 24 hours): 05/29/23 05/29/23 05/29/23 16:53 20:28 20:48 Glucose POC Glucose 78 62 L* 105 H 05/29/23 05/30/23 05/30/23 23:57 03:59 05:36 Glucose 125 H POC Glucose 119 H 141 H 05/30/23 05/30/23 07:49 11:44 Glucose POC Glucose 137 H 246 H OUTPATIENT ANTIDIABETIC REGIMEN: * NPH 30 units BID * Regular insulin sliding scale * Empagliflozin 10 mg PO daily * A1c = 8.8% (05/29/23) ASSESSMENT: * Dayton is a 72 yo T1DM who presented with bradycardia. * Dayton received 36 units of insulin yesterday (20 units basal + 16 units bolus) with an episode of hypoglycemia in the evening. * Insulin doses selected based on previous admission data. Patient tends to require different novolog CF/CR throughout the day to avoid evening and overnight hypoglycemia. If patient not well controlled in the next 24 hours, would consider switch to NPH as this is what he takes as an outpatient and it appeared to work well last admission. PLAN FOR INPATIENT GLYCEMIC CONTROL: * Hold outpatient oral diabetes medications * Basal insulin * Lantus 10-12 units SQ BID * Bolus insulin * NovoLog per scale ACHS or Q6hrs while NPO * Goal Range: Low 110 mg/dL - High 150 mg/dL Breakfast * Correction Factor: 20 mg/dL/unit * Nutritional / Prandial insulin per carb ratio of 1 unit per 5 grams CHO consumed Lunch/dinner * Correction Factor: 30 mg/dL/unit * Nutritional / Prandial insulin per carb ratio of 1 unit per 8 grams CHO consumed Bedtime * Correction Factor: 50 mg/dL/unit * Nutritional / Prandial insulin per carb ratio of 1 unit per 15 grams CHO consumed
--- NOTE | 2023-05-30 17:01 | Hospitalist Progress Note ---
Date of Service May 30, 2023 Assessment & Plan (1) Ventricular bigeminy: Plan: Fortunately this was captured on EKG as obtained by EMS upon arrival to the pt's home. The ventricular bigeminy was the likely cause of his symptoms. Can't rule out other dysrhythmia, AV block, etc but much less likely. Since arrival to [facility] he has had no further sustained ventricular bigeminy - just very brief episodes. He has been NSR on the monitor with no significant bradycardia, pauses or AV block. Ideally his ventricular bigem is treated with a beta luiz but he has documented beta luiz intolerance. His cardizem has been stopped. I am concerned that the patient had elevated troponin upon arrival. Initial HS trop was 67, peaking at 320, then falling. In light of his troponin elevation, known CAD (prior h/o CABG), drop-off in EF (see below), and the episode he had at home along with ventricular bigem -- the question is whether ischemia drove this incident. To that end I consulted Dr Monroe from cardiology. He agrees that he should have ischemic eval, ideally a heart cath - but his renal dysfunction is very problematic. Dr Monroe made Mr Manav NPO after RI tonight. He plans to discuss the case with Dr Horne, Dr Luciano, or Dr Krause about whether a cath is even possible in light of elevated Creatinine (CrCl is high 20s, too). (2) Elevated troponin: Plan: See discussion above in #1 Peak HS trop 320, then fell. (3) (HFpEF) heart failure with preserved ejection fraction: Plan: 2022 echo with EF of 55-60% EF on echo now 45-50% etiology? ischemic? due to frequent PVCs? non-ischemic? other? fortunately he is compensated on exam in light of #1, #2 he needs an ischemic evaluation -- see above discussion (4) Bradycardia: Plan: 2nd to #1 He likely had a "pulse deficit" due to frequent premature ventricular beats / v entricular bigeminy. Has had sinus donta in the past as well per records Known intolerance to beta blockers Was taking cardizem at home prior to this admission - cardizem now stopped He has had no further severe bradycardia (some minor sinus donta 50s only) No AV block No pauses No junctional rhythm Only occasional brief runs of ventricular bigem TSH wnl Lyme negative Other electrolytes wnl (5) S/P CABG x 4: Plan: 2011 I cannot find any cath report since that time troponin elevation noted as in #2 above cont asa cont statin intolerant to beta blockers per records (6) Chronic kidney disease, stage 4 (severe): Plan: 2nd nephrotic syndrome cont diuretics daily BMP while here Cr at baseline mid 2's Cr today 2.8 on his usual home med regimen repeat BMP am for stability (7) GERD (gastroesophageal reflux disease): (8) Hypertension: Plan: cont home BP meds (9) 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, with long-term current use of insulin: Plan: Patient is on NPH 30 units twice daily and sliding scale Humalog at home Pharmacy glycemic team is managing his DM Appreciate their assistance Hb a1c 8.8% this admission Control thus far for the most part very satisfactory (10) Status post below knee amputation of left lower extremity: Plan: no issues at this time has prosthetic leg w/ him (11) Nephrotic syndrome: Plan: leading to CKD stage 4 Cr 2.8 today cont diuretics (12) Depression: Plan: this is MUCH improved in comparison to when I took care of him in early April cont sertraline cont trazodone (for sleep) Plan DVT prophylaxis: Heparin 5000 BID care extensively d/w Dr Monroe today care d/w patient's son by phone today Admission and Anticipated Discharge Date Admission Date: May 28, 2023 Subjective patient feeling well today denies any complaints robust appetite no orthopnea/PND no dizziness or lightheadedness or near-syncope no chest pain tele overnight - NSR, occasional brief run of ventricular bigeminy, PVCs; no severe bradycardia, pauses or AV block we discussed plan to have formal cards evaluation and potentially an ischemic evaluation due to +trop at admission along with decreasing EF on echo Review of Systems Review of Systems: gen - no fevers psych - depression much better than prior pulm - no cough GI - no abd pain Physical Exam Physical Exam: gen - obese, NAD, pleasant, sitting at side of bed comfortably neck - no JVD mouth - MMM heart - RRR, s1 s2, 2/6 KHARI LSB lungs - CTA b/l, no rales or wheeze abd - soft NT ND BS+ ext - trace edema right foot, pulses R foot 2+; left AKA psych - a/o x 3 Results & Data Results & Data Vital Signs (Past 12 Hours) Vital Signs Temp Pulse Pulse Resp BP Pulse Ox O2 Del Method 05/30/23 16:28 36.4 C L 59 L 16 136/57 L 92 Room Air 05/30/23 15:28 59 L 05/30/23 11:17 36.5 C 59 L 18 126/63 92 Room Air 05/30/23 07:23 36.5 C 55 L 17 146/66 H 94 Room Air 05/30/23 07:07 56 L Laboratory Results Laboratory Results - last 24 hr 05/29/23 05/29/23 05/29/23 20:28 20:48 23:57 Sodium Potassium Chloride Carbon Dioxide Anion Gap BUN Creatinine Est Cr Clr Drug Dosing Est GFR ( Amer) Est GFR (Non-Af Amer) BUN/Creatinine Ratio Glucose POC Glucose 62 L* 105 H 119 H Calcium 05/30/23 05/30/23 05/30/23 03:59 05:36 07:49 Sodium 136 Potassium 3.6 Chloride 97 L Carbon Dioxide 30 Anion Gap 9 BUN 74 H Creatinine 2.81 H Est Cr Clr Drug Dosing 27.1 Est GFR ( Amer) 24.5 Est GFR (Non-Af Amer) 21.2 BUN/Creatinine Ratio 26.3 H Glucose 125 H POC Glucose 141 H 137 H Calcium 9.1 05/30/23 05/30/23 11:44 16:43 Sodium Potassium Chloride Carbon Dioxide Anion Gap BUN Creatinine Est Cr Clr Drug Dosing Est GFR ( Amer) Est GFR (Non-Af Amer) BUN/Creatinine Ratio Glucose POC Glucose 246 H 70 Calcium PG Care Time/CCT Total # of Minutes Spent Total Time Spent with Patient: Total time spent is greater than 50% in coordination of care (as documented) at patient's floor/unit and/or counseling patient: Coding Level of Care Code 52401 SUB INP/OBS CARE 2/35MIN Diagnoses Ventricular bigeminy I49.8 Elevated troponin R79.89 Chronic heart failure with preserved ejection fraction I50.32 Heart failure chronicity: chronic Bradycardia R00.1 S/P CABG x 4 Z95.1 Chronic kidney disease, stage 4 (severe) N18.4 GERD (gastroesophageal reflux disease) K21.9 Primary hypertension I10 Hypertension type: primary hypertension 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, with long-term current use of insulin E10.319; E10.65 Status post below knee amputation of left lower extremity Z89.512 Nephrotic syndrome N04.9 Depression F32.A (3) (HFpEF) heart failure with preserved ejection fraction Heart failure chronicity: chronic Qualified Code(s): I50.32 - Chronic diastolic (congestive) heart failure (8) Hypertension Hypertension type: primary hypertension Qualified Code(s): I10 - Essential (primary) hypertension
[2023-05-31] MEDS: INSULIN ASPART PER UNIT CHARGE SC SCH ×2 (01:58→08:56)
[2023-05-31 06:49] LABS: BUN Creatinine Ratio 25.7 (10-20); Calcium 9.2 mg/dl (8.6-10.3); Creatinine Clr Calc Pharmacy 24.4 ml/min; Est GFR (African American) 21.7 ml/min; Est GFR (Non-African American) 18.7 ml/min; Potassium 3.5 mmol/L (3.5-5.1)
[2023-05-31] MEDS: LANTUS PER UNIT CHARGE SC SCH (08:57)
--- NOTE | 2023-05-31 13:00 | Pharmacy Report ---
Pharmacy Glycemic Short Note 2 - Date of Service May 31, 2023 - Glycemic Short BSG Results (Last 24 hours): 05/30/23 05/30/23 05/30/23 16:43 20:13 21:56 Glucose POC Glucose 70 113 H 135 H 05/30/23 05/30/23 05/31/23 21:57 22:35 01:52 Glucose POC Glucose 123 H 129 H 161 H 05/31/23 05/31/23 05/31/23 05:22 07:48 12:04 Glucose 157 H POC Glucose 164 H 151 H OUTPATIENT ANTIDIABETIC REGIMEN: * NPH 30 units BID * Regular insulin sliding scale * Empagliflozin 10 mg PO daily * A1c = 8.8% (05/29/23) ASSESSMENT: 05/31 * Fasting this morning was 164 mg/dL and patient only received 10 units of basal yesterday (evening dose was held with low BSG). * Will give 12 units of basal this morning and monitor- consider changing to home NPH tomorrow * Patient had trended down throughout the day despite looser parameters with lunch- will loosen further today * SCr is trending upward as well 05/30 * Dayton is a 72 yo T1DM who presented with bradycardia. * Dayton received 36 units of insulin yesterday (20 units basal + 16 units bolus) with an episode of hypoglycemia in the evening. * Insulin doses selected based on previous admission data. Patient tends to r equire different novolog CF/CR throughout the day to avoid evening and overnight hypoglycemia. If patient not well controlled in the next 24 hours, would consider switch to NPH as this is what he takes as an outpatient and it appeared to work well last admission. PLAN FOR INPATIENT GLYCEMIC CONTROL: * Hold outpatient oral diabetes medications * Basal insulin * Lantus 12 units SQ qAM * Bolus insulin * NovoLog per scale ACHS or Q6hrs while NPO * Goal Range: Low 110 mg/dL - High 150 mg/dL Breakfast * Correction Factor: 20 mg/dL/unit * Nutritional / Prandial insulin per carb ratio of 1 unit per 5 grams CHO consumed Lunch/dinner * Correction Factor: 35 mg/dL/unit * Nutritional / Prandial insulin per carb ratio of 1 unit per 9 grams CHO consumed Bedtime * Correction Factor: 50 mg/dL/unit * Nutritional / Prandial insulin per carb ratio of 1 unit per 15 grams CHO consumed
[2023-05-31 15:51] LABS: Creatinine Clr Calc Pharmacy 21.6 ml/min; Est GFR (African American) 18.7 ml/min; Est GFR (Non-African American) 16.2 ml/min
[2023-05-31] MEDS: SODIUM CHLORIDE 0.9% 500 ML IV SCH (17:39)
[2023-05-31 20:47] LABS: Appearance Urine Clear (Clear); Bacteria Urine Automated Negative (Negative); Bilirubin Urine Negative (Negative); Blood Urine Negative (Negative); Cast Urine Automated 0 /lpf (0-5); Color Urine Yellow; Epithelial Cell Urine Auto 0-5 /lpf (0-5); Glucose Urine UA 3+ (Negative); Ketones Urine Negative (Negative); Leukocyte Esterase Urine Negative (Negative); Nitrite Urine Negative (Negative); Protein Urine 1+ (Negative); RBC Urine Automated 0-4 /hpf (0-4); Specific Gravity Urine 1.015 (1.000-1.030); Urobilinogen Urine Negative (Negative); WBC Urine Automated 0 /hpf (0-5)
[2023-06-01 06:39] LABS: BUN Creatinine Ratio 28.5 (10-20); Calcium 9.2 mg/dl (8.6-10.3); Creatinine Clr Calc Pharmacy 24.5 ml/min; Est GFR (African American) 21.9 ml/min; Est GFR (Non-African American) 18.9 ml/min; Potassium 3.7 mmol/L (3.5-5.1)
--- NOTE | 2023-06-01 07:34 | Hospitalist Progress Note ---
Date of Service May 31, 2023 Assessment & Plan (1) Acute kidney injury: Plan: suspect 2nd to volume depletion in setting of high-dose bumex and ARB use can't rule out ABDOULAYE due to episode of hypotension at his home (patient had dizziness/lightheadedness spell at home associated with ventricular bigeminy) but will not be able to confirm such HOLD bumex HOLD ARB repeated his Cr in the mid-afternoon - continued to trend up thus, ordered 500cc of NS repeat BMP am check u/a -- r/o casts, etc could consider renal u/s to r/o obstruction but doubt such (2) Ventricular bigeminy: Plan: Fortunately this was captured on EKG as obtained by EMS upon arrival to the pt's home. The ventricular bigeminy was the likely cause of his symptoms. Can't rule out other dysrhythmia, AV block, etc but much less likely. Since arrival to [facility] he has had no further sustained ventricular bigeminy - just very brief episodes. He has been NSR on the monitor with no significant bradycardia, pauses or AV block. Ideally his ventricular bigem is treated with a beta luiz but he has documented beta luiz intolerance. His cardizem has been stopped as well due to bradycardia. I am concerned that the patient had elevated troponin upon arrival. Initial HS trop was 67, peaking at 320, then falling. In light of his troponin elevation, known CAD (prior h/o CABG), drop-off in EF (see below), and the episode he had at home along with ventricular bigem -- the question is whether ischemia drove this incident. To that end I consulted Dr Monroe from cardiology. He agrees that he should have ischemic eval, ideally a heart cath. Was to have diagnostic cath with Dr Luciano today but canceled due to his ABDOULAYE. Re-eval tomorrow. Ideally need CrCl >30 (Cr low 2's) to safely undergo cath. (3) Elevated troponin: Plan: See discussion above in #2 Peak HS trop 320, then fell. (4) (HFpEF) heart failure with preserved ejection fraction: Plan: 2022 echo with EF of 55-60% EF on echo now 45-50% etiology? ischemic? due to frequent PVCs? non-ischemic? other? fortunately he is compensated on exam; if anything he is volume contracted today needs an ischemic evaluation (5) Bradycardia: Plan: He likely had a "pulse deficit" due to frequent premature ventricular beats / ventricular bigeminy. This was the likely reason for his pulse in the 30s when his home health nurse came to his home on day of admission. We have not seen any bradycardia below 50 BPM since admission. Has had sinus donta in the past as well per records Known intolerance to beta blockers Was taking cardizem at home prior to this admission - cardizem now stopped No AV block No pauses No junctional rhythm Only occasional brief runs of ventricular bigem TSH wnl Lyme negative Other electrolytes wnl (6) S/P CABG x 4: Plan: 2011 I cannot find any cath report since that time troponin elevation noted as above cont asa cont statin intolerant to beta blockers per records (7) Chronic kidney disease, stage 4 (severe): Plan: 2nd nephrotic syndrome Cr at baseline low-mid 2's now with ABDOULAYE see #1 above repeat BMP am (8) GERD (gastroesophageal reflux disease): (9) Hypertension: Plan: cont home BP meds but HOLD bumex and HOLD losartan (10) 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, with long-term current use of insulin: Plan: Patient is on NPH 30 units twice daily and sliding scale Humalog at home Pharmacy glycemic team is managing his DM Appreciate their assistance Hb a1c 8.8% this admission Control satisfactory (11) Status post below knee amputation of left lower extremity: Plan: no issues at this time has prosthetic leg w/ him (12) Nephrotic syndrome: Plan: leading to CKD stage 4 see ABDOULAYE above (13) Depression: Plan: this is MUCH improved in comparison to when I took care of him in early April 2023 cont sertraline cont trazodone (for sleep) Plan DVT prophylaxis: Heparin 5000 BID care d/w Dr Monroe today care d/w patient's son by phone yesterday Admission and Anticipated Discharge Date Admission Date: May 28, 2023 Subjective pt w/o any new complaints no dizziness no lightheadedness no weakness no chest pain no dyspnea no palpitations no block or pauses on telemetry was to have heart cath today but canceled due to ABDOULAYE Review of Systems Review of Systems: gen - feels well, excellent appetite cv - no orthopnea pulm - no cough GI - no abd pain Physical Exam Physical Exam: gen - obese, NAD, pleasant, looks good today neck - no JVD mouth - MM dry heart - RRR, s1 s2, 2/6 KHARI LSB lungs - CTA b/l, no rales or wheeze abd - soft NT ND BS+ ext - no edema right foot, pulses R foot 2+; left AKA psych - a/o x 3 Results & Data Results & Data Vital Signs (Past 12 Hours) Vital Signs Temp Pulse Pulse Resp BP BP Pulse Ox 05/31/23 15:03 36.5 C 57 L 18 154/68 H 93 05/31/23 12:00 05/31/23 10:52 36.3 C L 57 L 17 156/75 H 97 05/31/23 09:12 36.4 C L 56 L 18 164/71 H 95 05/31/23 08:03 56 L Laboratory Results Laboratory Results - last 48 hr 05/29/23 05/30/23 05/30/23 02:19 07:49 11:44 Sodium Potassium Chloride Carbon Dioxide Anion Gap BUN Creatinine Est Cr Clr Drug Dosing Est GFR ( Amer) Est GFR (Non-Af Amer) BUN/Creatinine Ratio Glucose POC Glucose 137 H 246 H Calcium Urine Color Urine Appearance Urine pH Ur Specific [place] Urine Protein Urine Glucose (UA) Urine Ketones Urine Blood Urine Nitrite Urine Bilirubin Urine Urobilinogen Ur Leukocyte Esterase Urine WBC (Auto) Urine RBC (Auto) U Hyaline Cast (Auto) U Epithel Cells (Auto) Urine Bacteria (Auto) Hepatitis C Ab (EIA) NON-REACTIVE 05/30/23 05/30/23 05/30/23 16:43 20:13 21:56 Sodium Potassium Chloride Carbon Dioxide Anion Gap BUN Creatinine Est Cr Clr Drug Dosing Est GFR ( Amer) Est GFR (Non-Af Amer) BUN/Creatinine Ratio Glucose POC Glucose 70 113 H 135 H Calcium Urine Color Urine Appearance Urine pH Ur Specific [place] Urine Protein Urine Glucose (UA) Urine Ketones Urine Blood Urine Nitrite Urine Bilirubin Urine Urobilinogen Ur Leukocyte Esterase Urine WBC (Auto) Urine RBC (Auto) U Hyaline Cast (Auto) U Epithel Cells (Auto) Urine Bacteria (Auto) Hepatitis C Ab (EIA) 05/30/23 05/30/23 05/31/23 21:57 22:35 01:52 Sodium Potassium Chloride Carbon Dioxide Anion Gap BUN Creatinine Est Cr Clr Drug Dosing Est GFR ( Amer) Est GFR (Non-Af Amer) BUN/Creatinine Ratio Glucose POC Glucose 123 H 129 H 161 H Calcium Urine Color Urine Appearance Urine pH Ur Specific [place] Urine Protein Urine Glucose (UA) Urine Ketones Urine Blood Urine Nitrite Urine Bilirubin Urine Urobilinogen Ur Leukocyte Esterase Urine WBC (Auto) Urine RBC (Auto) U Hyaline Cast (Auto) U Epithel Cells (Auto) Urine Bacteria (Auto) Hepatitis C Ab (EIA) 05/31/23 05/31/23 05/31/23 05:22 07:48 12:04 Sodium 136 Potassium 3.5 Chloride 96 L Carbon Dioxide 27 Anion Gap 13 H BUN 80 H Creatinine 3.11 H D Est Cr Clr Drug Dosing 24.4 Est GFR ( Amer) 21.7 Est GFR (Non-Af Amer) 18.7 BUN/Creatinine Ratio 25.7 H Glucose 157 H POC Glucose 164 H 151 H Calcium 9.2 Urine Color Urine Appearance Urine pH Ur Specific [place] Urine Protein Urine Glucose (UA) Urine Ketones Urine Blood Urine Nitrite Urine Bilirubin Urine Urobilinogen Ur Leukocyte Esterase Urine WBC (Auto) Urine RBC (Auto) U Hyaline Cast (Auto) U Epithel Cells (Auto) Urine Bacteria (Auto) Hepatitis C Ab (EIA) 05/31/23 14:50 Sodium Potassium Chloride Carbon Dioxide Anion Gap BUN 84 H Creatinine 3.51 H D Est Cr Clr Drug Dosing 21.6 Est GFR ( Amer) 18.7 Est GFR (Non-Af Amer) 16.2 BUN/Creatinine Ratio Glucose POC Glucose Calcium Urine Color Urine Appearance Urine pH Ur Specific [place] Urine Protein Urine Glucose (UA) Urine Ketones Urine Blood Urine Nitrite Urine Bilirubin Urine Urobilinogen Ur Leukocyte Esterase Urine WBC (Auto) Urine RBC (Auto) U Hyaline Cast (Auto) U Epithel Cells (Auto) Urine Bacteria (Auto) Hepatitis C Ab (EIA) PG Care Time/CCT Total # of Minutes Spent Total Time Spent with Patient: Total time spent is greater than 50% in coordination of care (as documented) at patient's floor/unit and/or counseling patient: Coding Level of Care Code 88927 SUB INP/OBS CARE 2/35MIN Diagnoses Acute kidney injury N17.9 Ventricular bigeminy I49.8 Elevated troponin R79.89 Chronic heart failure with preserved ejection fraction I50.32 Heart failure chronicity: chronic Bradycardia R00.1 S/P CABG x 4 Z95.1 Chronic kidney disease, stage 4 (severe) N18.4 GERD (gastroesophageal reflux disease) K21.9 Primary hypertension I10 Hypertension type: primary hypertension 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
[2023-06-01] MEDS: INSULIN HUMAN NPH SC SCH (10:21)
--- NOTE | 2023-06-01 14:01 | Pharmacy Report ---
Pharmacy Glycemic Short Note 2 - Date of Service June 01, 2023 - Glycemic Short BSG Results (Last 24 hours): 05/31/23 05/31/23 06/01/23 16:16 20:05 05:59 Glucose 191 H POC Glucose 263 H 198 H 06/01/23 06/01/23 07:57 12:01 Glucose POC Glucose 185 H 236 H OUTPATIENT ANTIDIABETIC REGIMEN: * NPH 30 units BID * Regular insulin sliding scale * Empagliflozin 10 mg PO daily * A1c = 8.8% (05/29/23) ASSESSMENT: 06/01 * [place] received 31 units of insulin yesterday (12 were basal) * Fasting BSG this AM slightly elevated, will restart home insulin NPH (at a reduced dosage) for easier discharge transition * No clear discernable pattern with BSGs, has highs and BSGs below goal. Will continue current Novolog for now and continue to monitor. * Continues to have ABDOULAYE, will monitor for insulin accumulation 05/31 * Fasting this morning was 164 mg/dL and patient only received 10 units of basal yesterday (evening dose was held with low BSG). * Will give 12 units of basal this morning and monitor- consider changing to home NPH tomorrow * Patient had trended down throughout the day despite looser parameters with lunch- will loosen further today * SCr is trending upward as well 05/30 * [place] is a 72 yo T1DM who presented with bradycardia. * [place] received 36 units of insulin yesterday (20 units basal + 16 units bolus) with an episode of hypoglycemia in the evening. * Insulin doses selected based on previous admission data. Patient tends to require different novolog CF/CR throughout the day to avoid evening and overnight hypoglycemia. If patient not well controlled in the next 24 hours, would consider switch to NPH as this is what he takes as an outpatient and it appeared to work well last admission. PLAN FOR INPATIENT GLYCEMIC CONTROL: * Hold outpatient oral diabetes medications * Basal insulin * Insulin NPH 10 units SQ BIDM * Bolus insulin * NovoLog per scale ACHS or Q6hrs while NPO * Goal Range: Low 110 mg/dL - High 150 mg/dL Breakfast * Correction Factor: 20 mg/dL/unit * Nutritional / Prandial insulin per carb ratio of 1 unit per 5 grams CHO consumed Lunch/dinner * Correction Factor: 35 mg/dL/unit * Nutritional / Prandial insulin per carb ratio of 1 unit per 9 grams CHO consumed Bedtime * Correction Factor: 50 mg/dL/unit * Nutritional / Prandial insulin per carb ratio of 1 unit per 15 grams CHO consumed
--- NOTE | 2023-06-01 17:43 | Hospitalist Progress Note ---
Date of Service June 01, 2023 Assessment & Plan (1) Acute kidney injury: Plan: suspect 2nd to volume depletion in setting of high-dose bumex and ARB use can't rule out ABDOULAYE due to episode of hypotension at his home (patient had dizziness/lightheadedness spell at home associated with ventricular bigeminy) but will not be able to confirm such 500 mL NS on 05/31 UA was bland Held bumex, ARB, SGLT2 (had been recently prescribed as outpatient by his warehouse pricing and inventory clerk but had not started taking this yet) Cr improved to 3. Recent BEST Cr is around 2.5, underlying CKD-4 with nephrotic syndrome, this approaches a GFR around 30. AM BMP (2) Ventricular bigeminy: Plan: Fortunately this was captured on EKG as obtained by EMS upon arrival to the pt's home. The ventricular bigeminy was the likely cause of his symptoms. Can't rule out other dysrhythmia, AV block, etc but much less likely. Since arrival to [facility] he has had no further sustained ventricular bigeminy - just very brief episodes. He has been NSR on the monitor with no significant bradycardia, pauses or AV block. Ideally his ventricular bigem is treated with a beta luiz but he has documented beta luiz intolerance. His cardizem has been stopped as well due to bradycardia. elevated troponin upon arrival. Initial HS trop was 67, peaking at 320, then falling. In light of his troponin elevation, known CAD (prior h/o CABG), drop-off in EF (see below), and the episode he had at home along with ventricular bigem -- the question is whether ischemia drove this incident. To that end I consulted Dr Monroe from cardiology. He agrees that he should have ischemic eval, ideally a heart cath, however ABDOULAYE and baseline CKD-4 may make risk:benefit prohibitive (3) Elevated troponin: Plan: See discussion above in #2 Peak HS trop 320, then fell. (4) (HFpEF) heart failure with preserved ejection fraction: Plan: 2022 echo with EF of 55-60% EF on echo now 45-50% etiology unclear, would benefit from ischemic eval, see discussion above (5) Bradycardia: Plan: He likely had a "pulse deficit" due to frequent premature ventricular beats / ventricular bigeminy. This was the likely reason for his pulse in the 30s when his home health nurse came to his home on day of admission. We have not seen any bradycardia below 50 BPM since admission. Has had sinus donta in the past as well per records Known intolerance to beta blockers Was taking cardizem at home prior to this admission - cardizem now stopped No AV block No pauses No junctional rhythm Only occasional brief runs of ventricular bigem TSH wnl Lyme negative Other electrolytes wnl (6) S/P CABG x 4: Plan: 2011 I cannot find any cath report since that time troponin elevation noted as above cont asa cont statin intolerant to beta blockers per records (7) Chronic kidney disease, stage 4 (severe): Plan: 2nd nephrotic syndrome Cr at baseline mid 2's now with ABDOULAYE see #1 above repeat BMP am (8) GERD (gastroesophageal reflux disease): (9) Hypertension: Plan: cont home BP meds but HOLD bumex and HOLD losartan (10) 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, with long-term current use of insulin: Plan: Patient is on NPH 30 units twice daily and sliding scale Humalog at home Pharmacy glycemic team is managing his DM Appreciate their assistance Hb a1c 8.8% this admission Control satisfactory (11) Status post below knee amputation of left lower extremity: Plan: no issues at this time has prosthetic leg w/ him (12) Nephrotic syndrome: Plan: leading to CKD stage 4 see ABDOULAYE above (13) Depression: Plan: this is MUCH improved in comparison to when I took care of him in early April 2023 cont sertraline cont trazodone (for sleep) Plan DVT prophylaxis: Heparin 5000 BID care d/w patient's son by phone 05/30 Admission and Anticipated Discharge Date Admission Date: May 28, 2023 Subjective feels ok, no chest or arm pain, not short of breath, no increase in leg swelling Physical Exam 2 Physical Exam: PHYSICAL EXAMINATION Last 24h vital signs reviewed, see documentation in flowsheet General: comfortable appearing, no distress, sitting on EOB HEENT: Normocephalic, atraumatic, pupils round and equal, sclerae anicteric, no conjunctival injection, moist mucus membranes Lungs: Normal respiratory effort. Clear to auscultation bilaterally. No RRW Heart: Regular rate and rhythm, no murmurs. No JVD Abdomen: Soft, nontender, nondistended. Bowel sounds present. Extremities: Warm, dry, well-perfused. trace RLE extremity edema. Neuro: Alert and oriented x 4, face symmetric, moves 4 extremities well Psych: Normal affect and behavior Results & Data Results & Data Vital Signs (Past 12 Hours) Vital Signs Temp Pulse Pulse Resp BP BP Pulse Ox 06/01/23 17:18 54 L 06/01/23 14:42 36.3 C L 56 L 18 150/51 H 100 06/01/23 10:40 36.4 C L 56 L 17 134/60 96 06/01/23 07:52 53 L 06/01/23 07:11 36.5 C 53 L 18 144/38 H 94 O2 Del Method 06/01/23 17:18 06/01/23 14:42 Room Air 06/01/23 10:40 Room Air 06/01/23 07:52 06/01/23 07:11 Room Air Laboratory Results 05/29/23 02:19 06/01/23 05:59 PG Care Time/CCT Total # of Minutes Spent Total Time Spent with Patient: Total time spent is greater than 50% in coordination of care (as documented) at patient's floor/unit and/or counseling patient: Coding Level of Care Code 79919 SUB INP/OBS CARE 2/35MIN Diagnoses Acute kidney injury N17.9 Ventricular bigeminy I49.8 Elevated troponin R79.89 Chronic heart failure with preserved ejection fraction I50.32 Heart failure chronicity: chronic Bradycardia R00.1 S/P CABG x 4 Z95.1 Chronic kidney disease, stage 4 (severe) N18.4 GERD (gastroesophageal reflux disease) K21.9 Primary hypertension I10 Hypertension type: primary hypertension 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
[2023-06-02 08:34] LABS: Calcium 9.2 mg/dl (8.6-10.3); Creatinine Clr Calc Pharmacy 25.9 ml/min; Est GFR (African American) 23.5 ml/min; Est GFR (Non-African American) 20.3 ml/min; Potassium 3.7 mmol/L (3.5-5.1)
--- NOTE | 2023-06-02 17:13 | Hospitalist Progress Note ---
Date of Service June 02, 2023 Assessment & Plan (1) Acute kidney injury: Plan: suspect 2nd to volume depletion in setting of high-dose bumex and ARB use can't rule out ABDOULAYE due to episode of hypotension at his home (patient had dizziness/lightheadedness spell at home associated with ventricular bigeminy) but will not be able to confirm such 500 mL NS on 05/31 UA was bland Held bumex, ARB, SGLT2 (had been recently prescribed as outpatient by his lubricating engineer but had not started taking this yet) Cr improved to 2.9 Recent BEST Cr is around 2.5, underlying CKD-4 with nephrotic syndrome, this approaches a GFR around 30. AM BMP (2) Ventricular bigeminy: Plan: Fortunately this was captured on EKG as obtained by EMS upon arrival to the pt's home. The ventricular bigeminy was the likely cause of his symptoms. Can't rule out other dysrhythmia, AV block, etc but much less likely. Since arrival to [facility] he has had no further sustained ventricular bigeminy - just very brief episodes. He has been NSR on the monitor with no significant bradycardia, pauses or AV block. elevated troponin upon arrival. Initial HS trop was 67, peaking at 320, then falling. In light of his troponin elevation, known CAD (prior h/o CABG), drop-off in EF (see below), and the episode he had at home along with ventricular bigem -- the question is whether ischemia drove this incident. Consulted cardiology, discussed heart cath, however ABDOULAYE and baseline CKD-4 may make risk:benefit prohibitive Discussed with Dr. Luciano - considering outpatient stress test and trial of low dose b-luiz (3) Elevated troponin: Plan: See discussion above in #2 Peak HS trop 320, then fell. (4) (HFpEF) heart failure with preserved ejection fraction: Plan: 2022 echo with EF of 55-60% EF on echo now 45-50% etiology unclear, would benefit from ischemic eval, see discussion above (5) Bradycardia: Plan: He likely had a "pulse deficit" due to frequent premature ventricular beats / ventricular bigeminy. This was the likely reason for his pulse in the 30s when his home health nurse came to his home on day of admission. We have not seen any bradycardia below 50 BPM since admission. Has had sinus donta in the past as well per records Known intolerance to beta blockers Was taking cardizem at home prior to this admission - cardizem now stopped No AV block No pauses No junctional rhythm Only occasional brief runs of ventricular bigem TSH wnl Lyme negative Other electrolytes wnl (6) S/P CABG x 4: Plan: 2011 I cannot find any cath report since that time troponin elevation noted as above cont asa cont statin intolerant to beta blockers per records (7) Chronic kidney disease, stage 4 (severe): Plan: 2nd nephrotic syndrome Cr at baseline mid 2's now with ABDOULAYE see #1 above repeat BMP am (8) GERD (gastroesophageal reflux disease): (9) Hypertension: Plan: cont home BP meds but HOLD bumex and HOLD losartan (10) 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, with long-term current use of insulin: Plan: Patient is on NPH 30 units twice daily and sliding scale Humalog at home Pharmacy glycemic team is managing his DM Appreciate their assistance Hb a1c 8.8% this admission Control satisfactory, reviewed 06/02 (11) Status post below knee amputation of left lower extremity: Plan: no issues at this time has prosthetic leg w/ him (12) Nephrotic syndrome: Plan: leading to CKD stage 4 see ABDOULAYE above (13) Depression: Plan: this is MUCH improved in comparison to when I took care of him in early April 2023 cont sertraline cont trazodone (for sleep) Plan DVT prophylaxis: Heparin 5000 BID care d/w patient's son by phone 05/30 Admission and Anticipated Discharge Date Admission Date: May 28, 2023 Subjective feels ok, no dyspnea no CP or palpitations, no lightheaded episodes Physical Exam 2 Physical Exam: PHYSICAL EXAMINATION Last 24h vital signs reviewed, see documentation in flowsheet General: comfortable appearing, no distress, sitting on EOB exam unchanged 06/02: HEENT: Normocephalic, atraumatic, pupils round and equal, sclerae anicteric, no conjunctival injection, moist mucus membranes Lungs: Normal respiratory effort. Clear to auscultation bilaterally. No RRW Heart: Regular rate and rhythm, no murmurs. No JVD Abdomen: Soft, nontender, nondistended. Bowel sounds present. Extremities: Warm, dry, well-perfused. L BKA, mild RLE extremity edema. Neuro: Alert and oriented x 4, face symmetric, moves 4 extremities well Psych: Normal affect and behavior Results & Data Results & Data Vital Signs (Past 12 Hours) Vital Signs Temp Pulse Pulse Resp BP Pulse Ox O2 Del Method 06/02/23 15:35 36.8 C 86 18 148/64 H 96 Room Air 06/02/23 11:13 36.6 C 51 L 18 145/66 H 96 Room Air 06/02/23 08:19 50 L 06/02/23 08:00 Room Air 06/02/23 07:36 36.4 C L 63 18 177/55 H 98 Room Air Laboratory Results 05/29/23 02:19 06/02/23 07:53 PG Care Time/CCT Total # of Minutes Spent Total Time Spent with Patient: Total time spent is greater than 50% in coordination of care (as documented) at patient's floor/unit and/or counseling patient: Coding Level of Care Code 44313 SUB INP/OBS CARE 2/35MIN Diagnoses Acute kidney injury N17.9 Ventricular bigeminy I49.8 Elevated troponin R79.89 Chronic heart failure with preserved ejection fraction I50.32 Heart failure chronicity: chronic Bradycardia R00.1 S/P CABG x 4 Z95.1 Chronic kidney disease, stage 4 (severe) N18.4 GERD (gastroesophageal reflux disease) K21.9 Primary hypertension I10 Hypertension type: primary hypertension 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
--- NOTE | 2023-06-02 18:10 | Cardiology Progress Note ---
Date of Service June 02, 2023 Assessment & Plan (1) Cardiomyopathy: Plan: Very mild reduction in EF. May be secondary to frequent PVCs. He has no further evidence of volume overload at this time. Previously seen in the heart failure clinic. Prior to beginning care in our service the patient seems to have been followed at [facility] with Dr. Snyder. Patient's beta- luiz was stopped preceding his transfer to our care. It is also noted that his Bumex, Jardiance, and losartan have been held. Would discuss with nephrology the risk of continuing losartan. I would favor a heart failure indicated beta-luiz and avoiding amlodipine because of fluid retention. Diuretic therapy should continue with Bumex although the dose may need to be adjusted if we continue with Jardiance. I would also avoid diltiazem because no benefit in heart failure. (2) Ventricular bigeminy: Plan: Currently without the frequent PVCs but intermittently he does have the PVCs. May have contributed to reduced EF. We need to maintain potassium and magnesium within normal limits. Low-dose beta-luiz may be useful in limiting frequency of PVCs. We can presume that he did not tolerate beta-luiz and past because of bradycardia but it is certainly possible that he did not have true bradycardia but only "pulse deficit" from frequent PVCs. If he truly has bradycardia there may be an indication for pacemaker implantation so that he may be on appropriate heart failure medications. This would need to be discussed further with electrophysiology. (3) Non-ST elevation AK (NSTEMI): Plan: Very modest elevation in troponin without new wall motion abnormalities on echo, ischemic EKG changes, or chest discomfort/dyspnea. Patient has had similar elevations in his troponin in the past. Most likely this represents a type II non-ST elevation AK particularly with his poor renal function. In the absence of ACS the risk of provoking end-stage renal disease outweighs the anticipated benefit. I would first want evidence of significant myocardial ischemia with a territorial involvement suggesting that there may be target for intervention. (4) Acute kidney failure: Plan: This seems to have improved a little bit since admission. Now he is at his approximate baseline renal function. Further recommendations per nephrology. (5) CAD, multiple vessel: Plan: Patient has known severe multivessel coronary disease longstanding which previously required four-vessel coronary artery bypass grafting. Therefore high pretest probability of significant coronary disease. However, this does not mean that he has significant ischemia at this time. I would therefore favor Lexiscan stress MPI to evaluate for for existence and severity of ischemia. If this is high risk then the risk of contrast-induced nephropathy may be outweighed by the risk of the ischemia. If the patient is anticipated to remain hospitalized until at least Wednesday we could order inpatient stress MPI for morning. If not, then outpatient stress MPI can be arranged. His blood pressure is well above target. However his losartan has been held. I recommend that we trial low-dose Toprol to see if he can tolerate. Resume ARB if nephrology feels safe. Consider long-acting nitrate. He should remain on low- dose aspirin and high intensity statin. (6) Hypertension: Plan: Blood pressure is well above target he is not currently on usual medications. Will begin metoprolol to tartrate 12.5 mg p.o. twice daily and if tolerated change that to Toprol-XL 25 mg daily. Restart losartan although we may need to reduce the dose to 50 if nephrology agrees. Can add isosorbide mononitrate 30 mg daily. Consider hydralazine, spironolactone. Admission and Anticipated Discharge Date Admission Date: May 28, 2023 Subjective Patient was seen in his room today. He is very somnolent and in fact was asleep when I first entered. No complaints. I have reviewed all of his outpatient records which I will allude to in the assessment and plan. It is noted that the patient did not present with any chest discomfort or shortness of breath. He presented with cold feeling and bradycardia reported. Electrophysiology felt the bradycardia was a pulse deficit secondary to frequent PVCs. I also reviewed the patient's echo now and in the past. He has had only a very modest drop in his EF (previously ranging from 50 to 65%) currently assessed at 45 to 50%. There were no new segmental wall motion abnormalities. Troponin peaked at 320. On the monitor he is currently in sinus rhythm without PVCs. Review of Systems Review of Systems: Negative except as per HPI Physical Exam Constitutional: Chronically ill-appearing obese elderly male. No acute distress. Neck: Mild JVD. No bruits. Respiratory: No wheezing, rhonchi, or crackles. Poor air movement. Cardiovascular: Regular rate and rhythm. S4 gallop. No murmur appreciated. No edema. Musculoskeletal: Left BKA. Neurologic: Somnolent. Agitated while asleep. No focal deficits. Psychiatric: A+Ox3, euthymic affect Results & Data Vital Signs (Past 12 Hours) Vital Signs Temp Pulse Pulse Resp BP Pulse Ox O2 Del Method 06/02/23 17:33 58 L 06/02/23 15:35 36.8 C 86 18 148/64 H 96 Room Air 06/02/23 11:13 36.6 C 51 L 18 145/66 H 96 Room Air 06/02/23 08:19 50 L 06/02/23 08:00 Room Air 06/02/23 07:36 36.4 C L 63 18 177/55 H 98 Room Air PG Care Time/CCT Total # of Minutes Spent Total Time Spent with Patient: Total time spent is greater than 50% in coordination of care (as documented) at patient's floor/unit and/or counseling patient: Coding Level of Care Code 78380 SUB INP/OBS CARE 235MIN Diagnoses Cardiomyopathy, unspecified type I42.9 Cardiomyopathy type: unspecified Ventricular bigeminy I49.8 Non-ST elevation AK (NSTEMI) I21.4 Acute kidney failure N17.9 CAD, multiple vessel I25.10 Primary hypertension I10 Hypertension type: primary hypertension (1) Cardiomyopathy Cardiomyopathy type: unspecified Qualified Code(s): I42.9 - Cardiomyopathy, unspecified (6) Hypertension Hypertension type: primary hypertension Qualified Code(s): I10 - Essential (primary) hypertension
[2023-06-02] MEDS: ISOSORBIDE MONO EXTENDED REL 30 MG TABCR PO ONE (19:55)
[2023-06-02] MEDS: METOPROLOL TARTRATE 25 MG TAB PO SCH (19:58)
[2023-06-03 06:41] LABS: Calcium 9.3 mg/dl (8.6-10.3); Creatinine Clr Calc Pharmacy 29.2 ml/min; Est GFR (African American) 27.1 ml/min; Est GFR (Non-African American) 23.4 ml/min; Potassium 3.7 mmol/L (3.5-5.1)
--- NOTE | 2023-06-03 07:47 | Hospitalist Progress Note ---
Date of Service June 03, 2023 Assessment & Plan (1) Acute kidney injury: Plan: Recent BEST Cr is around 2.5, underlying CKD-4 with nephrotic syndrome, this approaches a GFR around 30. suspect 2nd to volume depletion in setting of high-dose bumex and ARB use can't rule out ABDOULAYE due to episode of hypotension at his home (patient had dizziness/lightheadedness spell at home associated with ventricular bigeminy) but will not be able to confirm such 500 mL NS on 05/31 UA was bland Held bumex, ARB, SGLT2 (had been recently prescribed as outpatient by his him director but had not started taking this yet) Cr improved to 2.5 on 06/03 -low dose metoprolol trial started by television mechanic -resume ARB but reduced dose to 50 -resumed bumex decreased from bid to 4 mg daily for now -discussed empagliflozin with pharmacist - generally avoided in type 1 DM because could precipitate DKA, consider with CKD and CAD/HF however clinical data to inform this is still sparse - will hold and defer to him director whether to resume AM BMP (2) Ventricular bigeminy: Plan: Fortunately this was captured on EKG as obtained by EMS upon arrival to the pt's home. The ventricular bigeminy was the likely cause of his symptoms. Can't rule out other dysrhythmia, AV block, etc but much less likely. Since arrival to [facility] he has had no further sustained ventricular bigeminy - just very brief episodes. He has been NSR on the monitor with no significant bradycardia, pauses or AV block. elevated troponin upon arrival. Initial HS trop was 67, peaking at 320, then falling. In light of his troponin elevation, known CAD (prior h/o CABG), drop-off in EF (see below), and the episode he had at home along with ventricular bigem -- the question is whether ischemia drove this incident. Consulted cardiology, discussed heart cath, however ABDOULAYE and baseline CKD-4 may make risk:benefit prohibitive -trial of low dose metoprolol started pm 06/02 by television mechanic -stress test recommended to further risk stratify prior to considering angiography -ordered lexiscan MPI for 06/04 (3) Elevated troponin: Plan: See discussion above in #2 Likely type 2 nstemi related to myocardial strain with underlying CAD Peak HS trop 320, then fell. (4) (HFpEF) heart failure with preserved ejection fraction: Plan: 2022 echo with EF of 55-60% EF on echo now 45-50% etiology unclear, would benefit from ischemic eval, see discussion above (5) Bradycardia: Plan: He likely had a "pulse deficit" due to frequent premature ventricular beats / ventricular bigeminy. This was the likely reason for his pulse in the 30s when his home health nurse came to his home on day of admission. We have not seen any bradycardia below 50 BPM since admission. Has had sinus donta in the past as well per records Known intolerance to beta blockers - unclear whether true bradycardia or pulse deficit related to bigeminy Was taking cardizem at home prior to this admission - cardizem now stopped No AV block No pauses No junctional rhythm Only occasional brief runs of ventricular bigem TSH wnl Lyme negative Other electrolytes wnl (6) S/P CABG x 4: Plan: 2011 I cannot find any cath report since that time troponin elevation noted as above cont asa cont statin intolerant to beta blockers per records - trial as above (7) Chronic kidney disease, stage 4 (severe): Plan: 2nd nephrotic syndrome Cr at baseline mid 2's -back to baseline (8) GERD (gastroesophageal reflux disease): (9) Hypertension: Plan: meds as above (10) 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, with long-term current use of insulin: Plan: Patient is on NPH 30 units twice daily and sliding scale Humalog at home Pharmacy glycemic team is managing his DM Appreciate their assistance Hb a1c 8.8% this admission Control satisfactory, reviewed 06/04 (11) Status post below knee amputation of left lower extremity: Plan: no issues at this time has prosthetic leg w/ him (12) Nephrotic syndrome: Plan: leading to CKD stage 4 see ABDOULAYE above (13) Depression: Plan: this is MUCH improved in comparison to when I took care of him in early April 2023 cont sertraline cont trazodone (for sleep) Plan DVT prophylaxis: Heparin 5000 BID care d/w patient's son by phone 05/30 Admission and Anticipated Discharge Date Admission Date: May 28, 2023 Subjective no events, no chest pain or palpitations, tolerating metoprolol low dose so far no dyspnea and leg edema at baseline Physical Exam 2 Physical Exam: PHYSICAL EXAMINATION Last 24h vital signs reviewed, see documentation in flowsheet General: comfortable appearing, no distress, sitting on EOB exam unchanged 06/03: HEENT: Normocephalic, atraumatic, pupils round and equal, sclerae anicteric, no conjunctival injection, moist mucus membranes Lungs: Normal respiratory effort. Clear to auscultation bilaterally. No RRW Heart: Regular rate and rhythm, no murmurs. No JVD Abdomen: Soft, nontender, nondistended. Bowel sounds present. Extremities: Warm, dry, well-perfused. L BKA, mild RLE extremity edema. Neuro: Alert and oriented x 4, face symmetric, moves 4 extremities well Psych: Normal affect and behavior Results & Data Results & Data Vital Signs (Past 12 Hours) Vital Signs Temp Pulse Pulse Resp BP Pulse Ox O2 Del Method 06/03/23 07:41 55 L 06/03/23 06:58 36.6 C 53 L 18 140/65 96 Room Air 06/03/23 02:53 36.2 C L 59 L 20 166/68 H 93 Room Air 06/02/23 23:42 36.5 C 57 L 20 164/66 H 97 Room Air 06/02/23 22:00 51 L 06/02/23 20:26 36.4 C L 55 L 20 171/77 H 98 Room Air Laboratory Results 05/29/23 02:19 06/03/23 05:21 PG Care Time/CCT Total # of Minutes Spent Total Time Spent with Patient: Total time spent is greater than 50% in coordination of care (as documented) at patient's floor/unit and/or counseling patient: Coding Level of Care Code 30627 SUB INP/OBS CARE 2/35MIN Diagnoses Acute kidney injury N17.9 Ventricular bigeminy I49.8 Elevated troponin R79.89 Chronic heart failure with preserved ejection fraction I50.32 Heart failure chronicity: chronic Bradycardia R00.1 S/P CABG x 4 Z95.1 Chronic kidney disease, stage 4 (severe) N18.4 GERD (gastroesophageal reflux disease) K21.9 Primary hypertension I10 Hypertension type: primary hypertension 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
[2023-06-03] MEDS: BUMETANIDE 1 MG TAB PO SCH (08:44)
[2023-06-03] MEDS: LOSARTAN POTASSIUM 50 MG TAB PO SCH (08:45)
[2023-06-03] MEDS: ISOSORBIDE MONO EXTENDED REL 30 MG TABCR PO SCH (08:45)
[2023-06-03] MEDS: INSULIN ASPART PER UNIT CHARGE SC SCH (12:57)
[2023-06-04 06:16] LABS: Calcium 9.3 mg/dl (8.6-10.3); Creatinine Clr Calc Pharmacy 25.3 ml/min; Est GFR (African American) 22.7 ml/min; Est GFR (Non-African American) 19.6 ml/min; Potassium 3.9 mmol/L (3.5-5.1)
[2023-06-04] MEDS: ERGOCALCIFEROL 1250 MCG (50,000 UNITS) CAP PO SCH (08:11)
[2023-06-04] MEDS: INSULIN HUMAN NPH SC ONE (09:34)
--- NOTE | 2023-06-04 13:52 | Pharmacy Report ---
Pharmacy Glycemic Short Note 2 - Date of Service June 04, 2023 - Glycemic Short BSG Results (Last 24 hours): 06/03/23 06/03/23 06/04/23 17:22 20:22 05:16 Glucose 171 H POC Glucose 155 H 182 H 06/04/23 06/04/23 08:02 12:00 Glucose POC Glucose 180 H 184 H OUTPATIENT ANTIDIABETIC REGIMEN: * NPH 30 units BID * Regular insulin sliding scale * Empagliflozin 10 mg PO daily * A1c = 8.8% (05/29/23) ASSESSMENT: 06/04 * Patient received total of 48 units of insulin yesterday, of which 20 units were NPH * Fasting BSG 171 mg/dL - patient NPO for stress test. Anticipate diet to be resumed later today, will increase NPH to 12 units BIDM starting this evening * Tightened breakfast novolog parameters as lunch BSG elevated last couple of days 06/01 * [place] received 31 units of insulin yesterday (12 were basal) * Fasting BSG this AM slightly elevated, will restart home insulin NPH (at a reduced dosage) for easier discharge transition * No clear discernable pattern with BSGs, has highs and BSGs below goal. Will continue current Novolog for now and continue to monitor. * Continues to have ABDOULAYE, will monitor for insulin accumulation 05/31 * Fasting this morning was 164 mg/dL and patient only received 10 units of basal yesterday (evening dose was held with low BSG). * Will give 12 units of basal this morning and monitor- consider changing to h ome NPH tomorrow * Patient had trended down throughout the day despite looser parameters with lunch- will loosen further today * SCr is trending upward as well 05/30 * [place] is a 72 yo T1DM who presented with bradycardia. * [place] received 36 units of insulin yesterday (20 units basal + 16 units bolus) with an episode of hypoglycemia in the evening. * Insulin doses selected based on previous admission data. Patient tends to require different novolog CF/CR throughout the day to avoid evening and overnight hypoglycemia. If patient not well controlled in the next 24 hours, would consider switch to NPH as this is what he takes as an outpatient and it appeared to work well last admission. PLAN FOR INPATIENT GLYCEMIC CONTROL: * Hold outpatient oral diabetes medications * Basal insulin * Insulin NPH 12 units BIDM * Bolus insulin * NovoLog per scale ACHS or Q6hrs while NPO * Goal Range: Low 110 mg/dL - High 150 mg/dL Breakfast * Correction Factor: 15 mg/dL/unit * Nutritional / Prandial insulin per carb ratio of 1 unit per 4 grams CHO consumed Lunch/dinner * Correction Factor: 35 mg/dL/unit * Nutritional / Prandial insulin per carb ratio of 1 unit per 9 grams CHO consumed Bedtime * Correction Factor: 50 mg/dL/unit * Nutritional / Prandial insulin per carb ratio of 1 unit per 15 grams CHO consumed
[2023-06-04] MEDS: REGADENOSON 0.4 MG/5 ML SYR IV ONE (16:41)
--- NOTE | 2023-06-04 17:00 | Myocardial Perfusion Study ---
Date of Service June 04, [address] [facility] Myocardial Perfusion Study Report LEXISCAN STRESS MYOCARDIAL PERFUSION IMAGING Indication: Chest pain Brief description: Rest study-patient was injected with 10.1 mCi of technetium 99m Cardiolite IV at 12:00 PM. At 1 hour following injection, myocardial perfusion imaging was performed in multiple projections. Stress study-baseline heart rate, blood pressure, and EKG were obtained. These same parameters were monitored continuously through 3 minutes of infusion and 3 minutes of recovery. They were intermittently recorded. Patient was infused with 0.4 mg IV Lexiscan followed by injection of 33 mCi of technetium 99m Cardiolite IV. 30 minutes following injection, myocardial perfusion imaging was performed in multiple projections identical to those used for rest portion. Patient reported no symptoms with Lexiscan infusion. Hemodynamic and electrocardiographic findings: 1. Baseline heart rate of 56 bpm min to a maximum of 60 bpm with Lexiscan infusion. 2. Baseline blood pressure 161/67 mmHg dropped to 115/47 mmHg with Lexiscan infusion and then returned to 125/53 mmHg during recovery. 3. Baseline EKG demonstrated normal sinus bradycardia with first-degree AV block and right bundle branch block. There were no diagnostic ST segment or T wave changes with Lexiscan infusion. Rare PVCs with Lexiscan infusion without significant supraventricular or ventricular arrhythmia. Myocardial perfusion imaging findings: 1. Raw data analysis demonstrates obesity with increased liver uptake and mild diaphragmatic attenuation. Study is adequate for interpretation. 2. Gated myocardial perfusion imaging demonstrated a dilated left ventricle, global hypokinesis, and a calculated EF of 52% which seems to modestly overestimate the actual EF. 3. There was a small in size, mild intensity, predominantly fixed apical myocardial perfusion defect with mild reversibility. These findings are consistent with small infarct and mild get-infarct ischemia. Artifact cannot be excluded. 4. Study is moderately abnormal. Minimal ischemia risk. No prior studies to compare. [id number] Myocardial perfusion code Indication for Procedure (1) Cardiomyopathy: Procedure Code Procedure 1: Myocardial Perfusion Codes: 89723 Cardiovascular Stress Test, multiple Procedure 2: Myocardial Perfusion Codes: 30595 Cardiovascular Stress Test, supervision only Procedure 3: Myocardial Perfusion Codes: 28497 Cardiovascular Stress Test, interpretation and report
--- NOTE | 2023-06-04 17:17 | Cardiology Progress Note ---
Date of Service June 04, 2023 Assessment & Plan (1) Cardiomyopathy: Plan: No evidence of fluid overload today. We have been trying to optimize his guideline directed therapy. Seems that he is tolerating the beta-luiz and I will therefore recommend that we change the metoprolol to tartrate to metoprolol succinate ER 25 mg p.o. daily beginning tomorrow. He is also tolerating the losartan although his creatinine did increase a little today. Holding off on Jardiance because of his insulin dependence and poor renal function. Since he has maintain euvolemia we may be able to back off a little bit on the Bumex. He may be better with 3 mg twice daily or we could use 4 mg in the morning and 2 mg in the evening. Nephrology input would be appreciated. (2) Ventricular bigeminy: Plan: This is improved at the moment. Tolerating low-dose beta-luiz which we will continue and may help minimize ectopy. (3) Bradycardia: Plan: Heart rate has not been below 50. We will continue with metoprolol succinate ER 25 mg daily and avoid AV kaelyn blocking agents such as diltiazem and digoxin at this time. (4) Acute kidney injury superimposed on chronic kidney disease: Plan: I think he is stabilizing around a new slightly worse renal function. Nephro logy will continue to follow as an outpatient. (5) Non-ST elevation ID (NSTEMI): Plan: We know the patient is high pretest probability of occlusive coronary disease given his history of bypass. However, the stress test suggests little to no ischemia. Unlikely to have targets for PCI. Therefore anticipated benefit of catheterization is low and certainly he carries significant risk of contrast- induced nephropathy leading to end-stage renal disease/hemodialysis. His modest elevation in troponin likely represented a type II non-ST elevation ID in the setting of dehydration and acute renal failure with underlying substrate of severe multivessel coronary artery disease and new cardiomyopathy. If he develops a definitive acute coronary syndrome such as ST elevation ID or non-ST elevation ID with ischemic changes and chest pain then the risk of contrast- induced nephropathy would be outweighed by the risk of not performing catheterization and we would therefore proceed. He should continue with low- dose aspirin, high intensity statin therapy (atorvastatin 80 mg daily), low-dose beta-luiz, and for now the angiotensin receptor luiz until nephrology decides that we can no longer maintain ARB therapy. Plan I will sign off at this time. If there are any further or new concerns or questions I will be happy to see the patient again over the weekend. Admission and Anticipated Discharge Date Admission Date: May 28, 2023 Subjective Patient was seen in conjunction with his Lexiscan stress test which I supervised. He was feeling fairly well. He had no chest pain with Lexiscan study. No dyspnea. He tolerated the procedure well. I have completed the interpretation which is available in the official report. Briefly, small area suggestive of infarct with mild get-infarct ischemia. Dilated ventricle and at least moderately reduced EF. No high risk findings on the stress test. Review of Systems Review of Systems: Negative except as per HPI Physical Exam Constitutional: WD/WN, vitals as above Respiratory: normal respiratory effort, lungs clear to auscultation Cardiovascular: Regular rhythm, bradycardic rate. Occasional premature beats on the monitor. S4 gallop. Musculoskeletal: no cyanosis or clubbing, extremities motor strength 5/5 Neurologic: Cognition intact. Speech fluent. Psychiatric: A+Ox3, euthymic affect Results & Data Vital Signs (Past 12 Hours) Vital Signs Temp Pulse Pulse Resp BP Pulse Ox O2 Del Method 06/04/23 15:43 36.5 C 54 L 18 147/66 H 95 Room Air 06/04/23 15:21 57 L 06/04/23 12:11 36.5 C 52 L 17 128/62 95 Room Air 06/04/23 07:56 36.6 C 60 18 178/71 H 92 Room Air 06/04/23 07:28 55 L PG Care Time/CCT Total # of Minutes Spent Total Time Spent with Patient: Total time spent is greater than 50% in coordination of care (as documented) at patient's floor/unit and/or counseling patient: Coding Level of Care Code 41293 SUB INP/OBS CARE 2/35MIN Diagnoses Cardiomyopathy, unspecified type I42.9 Cardiomyopathy type: unspecified Ventricular bigeminy I49.8 Bradycardia R00.1 Acute kidney injury superimposed on chronic kidney disease N17.9; N18.9 Non-ST elevation ID (NSTEMI) I21.4 (1) Cardiomyopathy Cardiomyopathy type: unspecified Qualified Code(s): I42.9 - Cardiomyopathy, unspecified
[2023-06-04] MEDS: INSULIN HUMAN NPH SC SCH (17:45)
--- NOTE | 2023-06-04 19:45 | Discharge Summary ---
Date of Service June 04, 2023 Admission HPI Per Admitting Provider Dayton is a 72yo M who presents on referal from home health for bradycardia to the 30s with lightheadedness and dizziness bu tno chest pain or syncope. On arrival to ER 60-70s with a trop normally in 20s --> 60s to 120 on ER recheck. No heartblock or acute ischemic changes on EKG. Had an episode where he felt very week, cold, and lightheaded. Home health checked HR and was in the 30s. CHecked his BSG which was 120. BP was normal at the time. Patient was brought into the ED. Denies fever, sweats. Cold, but no shaking chills. No chest pain. No dyspnea. No nausea or vomiting. NO recent illnesses. Did not take his morning medications. Thinks he is still on diltiazem, notes the EMR is up to date and the only chages were vitamin d to weekly and asa to 81mg from full dose No tick bites or rashes. Endorses dry skin No tobacco or etoh use Alleriges reviewed. FQs and sulfa --> rash/itching CODE FULL Principal Diagnosis ventricular bigeminy, ABDOULAYE on CKD-4 Discharge Exam PHYSICAL EXAMINATION Last 24h vital signs reviewed, see documentation in flowsheet General: comfortable appearing, no distress, sitting on EOB exam unchanged 06/04: HEENT: Normocephalic, atraumatic, pupils round and equal, sclerae anicteric, no conjunctival injection, moist mucus membranes Lungs: Normal respiratory effort Abdomen: Soft, nontender, nondistended. Bowel sounds present. Extremities: Warm, dry, well-perfused. L BKA, mild RLE extremity edema. Neuro: Alert and oriented x 4, face symmetric, moves 4 extremities well Psych: Normal affect and behavior Discharge Data Allergies Allergy/AdvReac Type Severity Reaction Status Date / Time sulfamethoxazole Allergy Intermediate Rash Verified 05/27/23 15:04 trimethoprim Allergy Intermediate Rash Verified 05/27/23 15:04 Quinolones Allergy Mild Itchiness Verified 05/27/23 15:04 ofloxacin [From Floxin] Allergy itching Verified 05/27/23 15:04 Consultations 05/28/23 17:23 ED Decision to Admit Stat 05/30/23 09:29 Consult Cardiology Routine Procedures Performed Operation Date: 05/31/23 11:00 <No data on this case meets the specified criteria> Ordered Studies Chest X-Ray 05/28/23 17:25 XR chest 1V portable HISTORY: dysrhythmia COMPARISON: Chest 04/29/2023. FINDINGS: Slightly rotated study. No pneumothorax. There are poststernotomy changes. Cardiomegaly again noted. No new focal lung consolidations to suggest a pneumonia. Lumbar spinal fusion hardware is partially visualized. No pleural effusions. The interstitial/vascular thickening has improved. This suggests mild pulmonary edema. No acute fractures. IMPRESSION: Cardiomegaly with mild improvement in the pulmonary edema. ACT 112: Negative or not required by law. Electronically signed by: Abilio Soto M.D. 05/28/2023 6:36 PM Myocardial Perfusion Study 06/04/23 Hemodynamic and electrocardiographic findings: 1. Baseline heart rate of 56 bpm min to a maximum of 60 bpm with Lexiscan infusion. 2. Baseline blood pressure 161/67 mmHg dropped to 115/47 mmHg with Lexiscan infusion and then returned to 125/53 mmHg during recovery. 3. Baseline EKG demonstrated normal sinus bradycardia with first-degree AV block and right bundle branch block. There were no diagnostic ST segment or T wave changes with Lexiscan infusion. Rare PVCs with Lexiscan infusion without significant supraventricular or ventricular arrhythmia. Myocardial perfusion imaging findings: 1. Raw data analysis demonstrates obesity with increased liver uptake and mild diaphragmatic attenuation. Study is adequate for interpretation. 2. Gated myocardial perfusion imaging demonstrated a dilated left ventricle, global hypokinesis, and a calculated EF of 52% which seems to modestly overestimate the actual EF. 3. There was a small in size, mild intensity, predominantly fixed apical myocardial perfusion defect with mild reversibility. These findings are consistent with small infarct and mild get-infarct ischemia. Artifact cannot be excluded. 4. Study is moderately abnormal. Minimal ischemia risk. No prior studies to compare. 05/29/23 02:19 06/04/23 05:16 Hospital Course (1) Ventricular bigeminy: Dayton is a 72 y/o with CKD-4 hx of CABG and HFpEF who presented with episode of weakness associated with a low pulse (in 30s per home nurse) and episode of hypoglycemia Prior to that had been doing really well on bumex 4 mg bid Found to be in ventricular bigeminy Fortunately this was captured on EKG as obtained by EMS upon arrival to the pt's home. The ventricular bigeminy could have been the cause of his symptoms. Can't rule out other dysrhythmia, AV block, etc but much less likely. Since arrival to [facility] he has had no further sustained ventricular bigeminy - just very brief episodes and PVCs. He has been NSR on the monitor with no significant bradycardia, pauses or AV block. elevated troponin upon arrival. Initial HS trop was 67, peaking at 320, then falling. Hydrological Technical Officer felt this was more likely myocardial strain (type 2) rather than type 1 NSTEMI In light of his troponin elevation, known CAD (prior h/o CABG), drop-off in EF (see below), and the episode he had at home along with ventricular bigem -- the question is whether ischemia drove this incident. Consulted cardiology, discussed heart cath, however ABDOULAYE and baseline CKD-4 may make risk:benefit prohibitive. Therefore cardiac stress test was done first and was not normal (as expected) but was low risk. I discussed with Dr. Luciano who does not recommend coronary angiogram at this time. -trial of low dose metoprolol started by conservation specialist to suppress bigeminy/ectopy and diltiazem was discontinued -Imdur was added -losartan dose reduced For his HFpEF he remained euvolemic this admission, despite holding diuretic as above. Generally had done well on bumex 4 bid recently but may have been volume depleted on presentation -he will try bumex 4 mg in am and 2 mg in afternoon and monitor his weight -if weight going up increase to 4 mg bid -he has metolazone prn for weight gain refractory to that -follow up with Dr. Mcgrath and in heart failure clinic (2) Acute kidney injury: ABDOULAYE on CKD-4, nephrotic syndrome Cr 3.5 on admission, possibly volume depleted Recent BEST Cr is around 2.5, underlying CKD-4 with nephrotic syndrome, this approaches a GFR around 30. suspect 2nd to volume depletion in setting of high-dose bumex and ARB use can't rule out ABDOULAYE due to episode of hypotension at his home (patient had dizziness/lightheadedness spell at home associated with ventricular bigeminy) but will not be able to confirm such 500 mL NS on 05/31 UA was bland Held bumex, ARB, SGLT2 (had been recently prescribed as outpatient by his tile mechanic helper but had not started taking this yet) anticipating possible coronary angiogram which was under consideration Cr improved to 2.5 on 06/03, however back to 3.0 after resumption of reduced dose bumex and ARB -reduced losartan to 50 mg -discussed empagliflozin with pharmacist - generally avoided in type 1 DM because could precipitate DKA, consider with CKD and CAD/HF however clinical data to inform this is still sparse - will hold and defer to tile mechanic helper whether to resume -follow up with Dr. Richardson (3) Elevated troponin: See discussion above in #2 Likely type 2 nstemi related to myocardial strain with underlying CAD Peak HS trop 320, then fell. (4) (HFpEF) heart failure with preserved ejection fraction: 2022 echo with EF of 55-60% EF on echo now 45-50% potentially ischemic, however, conservation specialist thought bigeminy could also be inducing this decrease - metoprolol was added to suppress this see discussion above (5) Bradycardia: He likely had a "pulse deficit" due to frequent premature ventricular beats / ventricular bigeminy. This was the likely reason for his pulse in the 30s when his home health nurse came to his home on day of admission. We have not seen any bradycardia below 50 BPM since admission. TSH wnl Lyme negative Other electrolytes wnl (6) S/P CABG x 4: 2011 I cannot find any cath report since that time troponin elevation noted as above cont asa cont statin intolerant to beta blockers per records - trial as above (7) Chronic kidney disease, stage 4 (severe): 2nd nephrotic syndrome Cr at baseline mid 2's but often near 3 recently (8) GERD (gastroesophageal reflux disease): (9) Hypertension: meds as above (10) 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, with long-term current use of insulin: resumed home regimen at discharge (11) Status post below knee amputation of left lower extremity: no issues at this time has prosthetic leg w/ him (12) Nephrotic syndrome: leading to CKD stage 4 see ABDOULAYE above (13) Depression: this is MUCH improved in comparison to when I took care of him in early April 2023 cont sertraline cont trazodone (for sleep) Total Time Total Time Spent Total Time Spent (In Minutes): I personally spent: 55 minutes today on clinical care activities including: reviewing chart notes and vital signs reviewing labs reviewing studies discussion with office 365 consultant - conservation specialist examining and counseling the patient writing orders documentation Discharge Plan Discharge Items Patient Disposition: Home - Self-Care Reason For Visit: SX BRADYCARDIA Discharge Diagnosis: ventricular bigeminy, ABDOULAYE on CKD-4, HFpEF Activity: Resume your previous activity Non-emergency contact: Primary Care Provider, Hydrological Technical Officer and Roving Changer Call non-emergency contact if: you have any medication questions and your symptoms worsen Follow-up/Referrals: Rodney Hartley PA-C [Physician Permastone Mechanic] - Leah Wolf DO [Primary Care Provider] - Shakira Richardson MD [Physician] - Diet: Carb Count or DM1 and Low Sodium (2gm) Addtl Attending Provider Instructions: You were evaluated for low pulse and associated episode of weakness -you were in a rhythm called ventricular bigeminy, this is a stable rhythm but can result in a low pulse -the conservation specialist Dr. Luciano recommended trial of low-dose metoprolol to suppress this, as well as adding a medication called isosorbide (imdur) that relaxes the blood vessels -STOP taking diltiazem (metoprolol will be much more beneficial to your heart) -to compensate for the metoprolol and because your creatinine is up, we reduced your losartan dose. Its possible your dose might be able to be increased again in the future -try taking the bumex like you suggested - 2 tabs in the morning and 1 tab in the afternoon. If you are gaining water weight on this dose, it is ok to go back to 2 tabs twice a day -monitor your weight on a bathroom scale every morning after voiding. if your weight increases by 3 pounds or more overnight or 5 pounds or more in a week it is likely water weight and you can increase the bumex as above until your weight comes back down. if that is ineffective, you can take a dose of metolazone -you can also call the heart failure clinic for advice on managing diuretic doses -your heart enzymes were elevated, but it seems more likely this was related to heart muscle strain rather than heart attack from clogged coronary artery -you had cardiac stress test which was not completely normal (as expected) but low risk for severe ischemia (poor blood flow due to coronary artery disease) - he thought it was not worth the risk to your kidneys to do "heart cath"/angiogram at this time -please schedule follow up with Dr. Richardson as soon as you can get in. Hold off on starting the jardiance (empaglifozin) until you talk to her. It was a pleasure taking care of you in the hospital Bouchra Betancourt MD Pending Studies at Discharge: No Stand-Alone Forms: My [facility] [employer], Smoking Cessation Medications and DC Order Prescriptions: New metoprolol succinate 25 mg Tablet Extended Release 24 Hr 25 mg PO QAM Qty: 30 0RF isosorbide mononitrate 30 mg Tablet Extended Release 24 Hr 30 mg PO QAM Qty: 30 0RF losartan 50 mg Tablet 50 mg PO QAM Qty: 30 0RF Continued (DME) OneTouch Ultra Blue Test Strip Strip See Dose Instructions .ROUTE .MEDSUPPLY Qty: 100 5RF Rx Instructions: use 1 strip to check glucose 4 times daily dx: E10.42, E10.65, E10.319 (DME) FreeStyle Farhad 2 [place] Misc See Rx Instructions .ROUTE .MEDSUPPLY Qty: 1 0RF Rx Instructions: As directed atorvastatin [Lipitor] 80 mg tablet 80 mg PO QAM Qty: 90 1RF (DME) pen needle, diabetic [BD Ultra-Fine [place] Pen Needle] 32 gauge x 5/32" needle See Rx Instructions .Route Qty: 400 3RF Rx Instructions: Inject insulin four times daily ropinirole 1 mg tablet 3 mg PO HS Qty: 270 1RF bumetanide 2 mg tablet 4 mg PO BID Qty: 120 6RF (DME) lancets [OneTouch UltraSoft Lancets] misc See Dose Instructions .ROUTE .MEDSUPPLY Qty: 50 Rx Instructions: test 4 times dailiy ascorbic acid (vitamin C) 500 mg capsule 500 mg PO QAM (DME) Wheelchair (Powered) Device See Rx Instructions .ROUTE .MEDSUPPLY Qty: 1 0RF Rx Instructions: powered wheelchair as directed (DME) FreeStyle Farhad 2 Sensor Kit See Rx Instructions .ROUTE .MEDSUPPLY Qty: 2 5RF Rx Instructions: As directed. Dx: E10.319, E10.65, E10.42. Testing BS qid calcitriol 0.5 mcg capsule 1 mcg PO QAM Qty: 60 4RF albuterol sulfate 90 mcg/actuation HFA aerosol inhaler 2 puff inhalation Q6H PRN (Reason: shortness of breath or wheezing) Qty: 18 3RF ergocalciferol (vitamin D2) 1,250 mcg (50,000 unit) capsule 50,000 unit PO WEEKLY Qty: 12 0RF Rx Instructions: hasnt started yet latanoprost [Xalatan] 0.005 % Drops 1 drp OPB HS aspirin 325 mg Tablet 325 mg PO QAM cholecalciferol (vitamin D3) [Vitamin D3] 50 mcg (2,000 unit) capsule 2,000 units PO QAM brimonidine 0.2 % drops 1 drp OPB BID timolol maleate 0.5 % gel forming solution 1 drp OPB BID dorzolamide 2 % drops 1 drp OPB BID trazodone 50 mg tablet 50 mg PO HS ketoconazole 2 % shampoo 1 applic topical .Wed/Wed/Wednesday Qty: 120 1RF Rx Instructions: apply to scalp, lather, rinse - 3 days/week. cyanocobalamin (vitamin B-12) 500 mcg Tablet 1,000 mcg PO QAM Qty: 0 0RF Rx Instructions: buy over the counter sertraline 25 mg tablet 25 mg PO DAILY Qty: 30 0RF metolazone 5 mg tablet 5 mg PO UD PRN (Reason: weight gain) Qty: 30 0RF Rx Instructions: take dose in AM if weight does up 3 pound in a day or 5 pounds in a week potassium gluconate 595 mg (99 mg) tablet 1,785 mg PO QAM Novolin N NPH U-100 Insulin 100 unit/mL suspension 30 unit subcut BID Qty: 10 0RF Humulin R Regular U-100 Insuln 100 unit/mL solution 1 sliding scale dose subcut USEASDIRECTD Qty: 10 0RF Held Jardiance 10 mg tablet 10 mg PO DAILY Qty: 30 2RF Hold Instructions: Resume on 06/18/23. hold until follow up with Dr. Richardson Discontinued losartan 100 mg tablet 100 mg PO QAM Qty: 90 1RF diltiazem HCl 240 mg capsule,extended release 24hr 240 mg PO DAILY Qty: 90 3RF Discharge Orders: Discharge Order (Routine); Ordered 06/04/23 Ordered By: Bouchra Mckeon/Other Patient Handouts: Managing Type 2 Diabetes Admission Data Admit Date/Time: 05/28/23 18:11 Attending Provider: Bouchra Betancourt Admit Provider: Keron Caputo Primary Care Provider: Leah Wolf Other Providers: Keron Caputo; Sidney Monroe Other Interventions: Discharge Summary Assessment (RN) Last Done: 06/04/23 18:20 Coding Level of Care Code 98636 INP/OBS DISCH >30 MIN Diagnoses Ventricular bigeminy I49.8 Acute kidney injury N17.9 Elevated troponin R79.89 Chronic heart failure with preserved ejection fraction I50.32 Heart failure chronicity: chronic Bradycardia R00.1 S/P CABG x 4 Z95.1 Chronic kidney disease, stage 4 (severe) N18.4 GERD (gastroesophageal reflux disease) K21.9 Primary hypertension I10 Hypertension type: primary hypertension 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, with long-term current use of insulin E10.319; E10.65 Status post below knee amputation of left lower extremity Z89.512 Nephrotic syndrome N04.9 Depression F32.A
[2023-06-05] MEDS ORDERED: METOPROLOL SUCC 25MG EXT REL TAB PO SCH (09:00)
== END 2023-06-04 19:17 | disposition home health service (06) | DRG 682 ==
LOC: ED 13:42 → EDINP 18:11 → SUATTDRO 18:11 → 4W 23:09

== ENCOUNTER 2023-06-14 13:55 | Inpatient (IN) ==
--- NOTE | 2023-06-14 14:17 | Emergency Department Note ---
History of Present Illness General Chief Complaint: Shortness of Breath/Dyspnea Time Seen by Provider: 06/14/23 14:01 History of Present Illness Provider Complaint: shortness of breath Onset (ago): day(s) (1) Severity: similar to previous episodes Consistency/Duration: + progressively worsening Relieved By: + oxygen and + upright position Exacerbated By: + lying flat Known history of: congestive heart failure Associated symptoms: + orthopnea; no chest pain, no cough, no wheezing, no lower extremity pain, no hemoptysis, no nausea/vomiting or no abdominal pain Treatment prior to arrival: oxygen Related Data Home oxygen amount: none Home Medications Medication Instructions Recorded Confirmed Type aspirin 325 mg tablet 325 mg PO QAM 12/27/17 06/14/23 History latanoprost 0.005 % eye drops 1 drp OPB HS 12/27/17 06/14/23 History (Xalatan) lancets (GivitTouch UltraSoft #50 ea 12/12/18 05/11/23 History Lancets) cholecalciferol (vitamin D3) 50 2,000 units PO QAM 11/10/19 06/14/23 History mcg (2,000 unit) capsule (Vitamin D3) Wheelchair (Powered) #1 ea 11/22/19 05/28/23 Rx blood sugar diagnostic (OneTouch #100 ea 01/31/20 05/11/23 Rx Ultra Blue Test Strip) brimonidine 0.2 % eye drops 1 drp OPB BID 12/07/20 06/14/23 History dorzolamide 2 % eye drops 1 drp OPB BID 12/07/20 06/14/23 History timolol maleate 0.5 % eye gel 1 drp OPB BID 12/07/20 06/14/23 History forming solution ascorbic acid (vitamin C) 500 mg 500 mg PO QAM 02/19/21 06/14/23 History capsule potassium gluconate 595 mg (99 mg) 1,785 mg PO QAM 06/09/21 06/14/23 History tablet flash glucose scanning reader #1 ea 12/17/21 05/11/23 Rx (FreeStyle Farhad 2 [place]) flash glucose sensor (FreeStyle #2 ea 08/06/22 05/11/23 Rx Farhad 2 Sensor kit) trazodone 50 mg tablet 50 mg PO 10/12/22 06/14/23 History atorvastatin 80 mg tablet (Lipitor) 80 mg PO QAM #90 tabs 12/18/22 06/14/23 Rx calcitriol 0.5 mcg capsule 1 mcg (2 x 0.5 mcg) PO QAM #60 caps 01/25/23 06/14/23 Rx albuterol sulfate 90 mcg/actuation 2 puff inhalation Q6H PRN 02/10/23 06/14/23 Rx aerosol inhaler shortness of breath or wheezing #18 grams pen needle, diabetic 32 gauge x #400 ea 02/25/23 05/11/23 Rx 5/32" (BD Ultra-Fine [place] Pen Needle) ropinirole 1 mg tablet 3 mg (3 x 1 mg) PO HS #270 tabs 03/16/23 06/14/23 Rx bumetanide 2 mg tablet 4 mg (2 x 2 mg) PO BID #120 tabs 04/09/23 06/14/23 Rx insulin NPH isoph U-100 human 100 30 unit (0.3 mL) subcut BID #10 mL 04/19/23 06/14/23 Rx unit/mL subcutaneous suspension (Novolin N NPH U-100 Insulin isophane) insulin regular human 100 unit/mL 1 sliding scale dose subcut 04/19/23 06/14/23 Rx injection solution (Humulin R USEASDIRECTD #10 mL Regular U-100 Insulin) cyanocobalamin (vitamin B-12) 500 1,000 mcg (2 x 500 mcg) PO QAM #0 05/04/23 06/14/23 Rx mcg tablet tabs sertraline 25 mg tablet 25 mg PO DAILY #30 tabs 05/04/23 06/14/23 Rx empagliflozin 10 mg tablet 10 mg PO DAILY #30 tabs 05/27/23 06/14/23 Rx (Jardiance) ergocalciferol (vitamin D2) 1,250 50,000 unit PO WEEKLY #12 caps 05/27/23 06/14/23 Rx mcg (50,000 unit) capsule isosorbide mononitrate 30 mg 30 mg PO QAM #30 tabs 06/04/23 06/14/23 Rx tablet,extended release 24 hr losartan 50 mg tablet 50 mg PO QAM #30 tabs 06/04/23 06/14/23 Rx metoprolol succinate 25 mg 25 mg PO QAM #30 tabs 06/04/23 06/14/23 Rx tablet,extended release 24 hr ketoconazole 2 % shampoo 1 applic topical 3XWK 06/14/23 06/14/23 History metolazone 5 mg tablet 5 mg PO DIRECTED PRN weight gain 06/14/23 06/14/23 History Allergies Allergy/AdvReac Type Severity Reaction Status Date / Time ofloxacin [From Floxin] Allergy Intermediate itching Verified 06/14/23 15:09 Quinolones Allergy Intermediate Itchiness Verified 06/14/23 15:09 sulfamethoxazole Allergy Intermediate Rash Verified 06/14/23 15:09 trimethoprim Allergy Intermediate Rash Verified 06/14/23 15:09 Past Med/Surg History Medical History Influenza A virus subtype H1 2009 pandemic strain present Slow to wake up after anesthesia Acute kidney failure Anemia of chronic disease Wound of lower extremity RLE wound "improved" per 01/27/21 wound clinic visit ([facility]); surgeon aware of patient's wound hx per 01/2021 office visit note; "only has a little scab there now, keeps it covered to protect it." Diabetes, type I Chronic kidney disease, stage 4 (severe) Nephrotic syndrome HF clinic office visit (02/08/20): "referred to the program for assistance with management of diuretic resistant hypervolemia in the setting of nephrotic syndrome. His hypervolemia is not felt to be secondary to heart failure. He has been stable on Bumex 3 mg BID. His weight has been stable. Follow up labs demonstrate kidney function and electrolytes stable. Discussed consistent daily standing weights. I&Os. 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 GERD (gastroesophageal reflux disease) Mild obstructive sleep apnea "Mild" > no device Restless leg syndrome History of TIA (transient ischemic attack) ~2009>over his left eye, no residual symptoms Surgical History Status post below knee amputation of left lower extremity S/P arteriovenous (AV) fistula creation left>no currently having dialysis History of esophagogastroduodenoscopy (EGD) History of colonoscopy S/P lumbar laminectomy S/P foot surgery S/P eye surgery B/L x3 (for glaucoma) S/P CABG x 4 CABG x4 (2012), [facility] [place]; f/u PCP History of lumbar discectomy History of tonsillectomy Family History Father , age 78 with prostate cancer Colorectal cancer Cardiovascular disease Diabetes Prostate cancer Grandmother (Maternal) Diabetes Mother , age 54 of throat cancer Throat cancer Denies family history of Ovarian cancer Myocardial infarction Breast cancer Social History Smoking Status: Never smoker Second Hand Exposure: No; Do You Dip or Chew Tobacco: No; Hx Alcohol Use: No Hx Substance Use: No Preferred Language: Finnish Communication Ability: Effective Visual Impairment: No Limitations Hearing Ability: Normal Lamination Technician Required: No Beliefs That Will Affect Care: None marital status: / marital status details: lost August 2021 Current Living Situation: Alone current occupational status: retired current occupation: How many Children do You have: 2 other: Retired age 63-1/2. Feels Safe at Home: Yes Childhood Exposure to Second-Hand Smoke: No Diet: regular caffeine: No during the past year weight has: remained stable Dental Care, Regularly: Yes Physical Activity Frequency: Other Physical Activity Frequency Comment: limited d/t disability Seatbelt Use: always Sunscreen Use: Yes Assistive Devices: Prosthesis, Scooter/Electric Scooter and Walker Physical Exam 2 Vital Signs: Vital Signs - 24 hr 06/14/23 13:55 06/14/23 14:12 06/14/23 14:15 Temperature 36.7 C Temperature Source Oral Pulse Rate 60 60 58 L Respiratory Rate 20 Respiratory Effort / Characteristics Non-Labored Sponta neous Respiratory Depth Normal Blood Pressure 136/66 Blood Pressure Subha n 89 Pulse Oximetry 84 L Oxygen Delivery Me thod Room Air Nasal Cannula Oxygen Flow Rate 2 Sepsis Recent Feve r Within 48 Hours No Sepsis New/Unexpla ined Change in Men [place] Status N/A Sepsis Action Take n by Nursing No Action Required Oxygen Flow Rate - Titration Pulse Oximetry Pos t Tiitration 06/14/23 14:22 06/14/23 14:54 06/14/23 14:54 Temperature Temperature Source Pulse Rate Respiratory Rate Respiratory Effort / Characteristics Labored Respiratory Depth Blood Pressure Blood Pressure Subha n Pulse Oximetry 96 86 L Oxygen Delivery Me thod Nasal Cannula Room Air Oxygen Flow Rate 2 Sepsis Recent Feve r Within 48 Hours Sepsis New/Unexpla ined Change in Men [place] Status Sepsis Action Take n by Nursing Oxygen Flow Rate - Titration 2 Pulse Oximetry Pos t Tiitration 96 Physical Exam: Physical Exam HENT: Exam performed. - Head: Normocephalic and atraumatic. EYES: Conjunctivae and EOM are normal. Pupils are equal, round, and reactive to light. Right eye exhibits no discharge. Left eye exhibits no discharge. No scleral icterus. NECK: Normal range of motion. Neck supple. No JVD present. CV: Normal rate, regular rhythm, normal heart sounds and intact distal pulses. Palpable radial pulses bue. PULM/CHEST: Inspiratory rales bilaterally. ABD: The abdomen is soft. MUSC/SKEL: Left-sided lower extremity amputation. Lower extremity 3+ pitting edema. Left upper extremity AV fistula with palpable thrill. NEURO: Motor and sensation grossly intact. Course Course 1401: The patient was evaluated in room B12. A complete history and physical exam was performed Cardiac monitoring: An order was placed for continuous cardiac monitoring. The monitor shows a rate of 50 with sinus rhythm interpreted by me Oxygen saturation found to be low at 86% on room air, supplemental oxygen was applied via nasal cannula which improved the patient's oxygen saturation. 1534: Vital signs stable on supplemental oxygen via nasal cannula. X-ray shows that the patient is fluid overloaded. Patient's creatinine is at baseline 2.15. BNP elevated at 1382 troponin 34.1. Patient will be admitted to [facility] for hypoxia and CHF exacerbation. Discussed with Dr. Caputo will evaluate him about diuresis given the patient's CKD and recent ABDOULAYE. Administered Medications Discontinued Medications Aspirin (Aspirin Chew 324 Mg) 324 mg PO NOW STA Stop: 06/14/23 14:06 Last Admin: 06/14/23 14:20 Dose: 324 mg Documented By: VASILIY Medical Decision Making Medical Records Attestation: I reviewed the patient's medical records. External medical records reviewed. Patient was admitted from May 28 and recently discharged on June 04, 2023. At that time the patient was admitted for CHF exacerbation as well as ventricular bigeminy. The patient was troponin went up to his 320 and then was decreasing. Cardiology thought it was most likely due to myocardial strain. A cardiac stress test was performed and was not normal, as the machine or machinery mechanic expected, and according neuro note they wanted to do heart catheterization however they did not want to due to the patient's acute kidney injury on his chronic kidney disease. The patient's baseline creatinine is around 2.5 and on admission in May his creatinine was 3.5. The patient had his medications changed where metoprolol was started to suppress his bigeminy/ectopy and diltiazem was discontinued, Imdur was added, and losartan was reduced. Laboratory Data Attestation: I reviewed the patient's lab results. 06/14/23 14:05 06/14/23 14:05 Lab Results 06/14/23 06/14/23 Range/Units 14:05 14:30 WBC 7.80 (4.8-10.8) K/ul RBC 3.36 L (4.70-6.10) M/uL Hgb 10.4 L (14.0-18.0) g/dl Hct 31.2 L (42.0-52.0) % MCV 92.9 (80.0-100.0) fL MCH 31.0 (25.0-34.0) pg MCHC 33.3 (32.0-36.0) g/dL RDW Std Deviation 45.2 (36.4-46.3) fL RDW Coeff of Jose 13.4 (11.5-14.5) % Plt Count 154 (130-400) K/uL MPV 12.7 H (9.4-12.4) fL Immature Gran % (Auto) 0.5 % Neut % (Auto) 79.4 % Lymph % (Auto) 8.7 % [place] % (Auto) 7.7 % Eos % (Auto) 3.1 % Baso % (Auto) 0.6 % Neut # (Auto) 6.19 (1.40-6.50) K/uL Lymph # (Auto) 0.68 L (1.20-3.40) K/uL [place] # (Auto) 0.60 H (0.11-0.59) K/uL Eos # (Auto) 0.24 (0.00-0.50) K/uL Baso # (Auto) 0.05 (0.00-0.20) K/uL Immature Gran # (Auto) 0.04 (0.01-0.20) K/uL PT 12.3 H (9.0-12.0) Seconds INR 1.1 (0.9-1.1) APTT 24 (21-31) Seconds PTT Ratio 0.9 Sodium 137 (136-145) mmol/L Potassium 4.2 (3.5-5.1) mmol/L Chloride 107 (98-107) mmol/L Carbon Dioxide 22 (21-32) mmol/L Anion Gap 8 (3-11) BUN 48 H (6-23) mg/dl Creatinine 2.15 H (0.6-1.4) mg/dl Est Cr Clr Drug Dosing 37.8 ml/min Est GFR ( Amer) 33.9 ml/min Est GFR (Non-Af Amer) 29.3 ml/min BUN/Creatinine Ratio 22.3 H (10-20) Glucose 135 H (70-99(Fasting)) mg/dl Calcium 8.4 L (8.6-10.3) mg/dl Troponin I High Sens 34.1 H (0-20) pg/ml B-Natriuretic Peptide 1382 H (0-100) pg/ml Lipase 30 (11-82) U/L SARS-CoV-2, RNA, NAAT NEGATIVE (NEGATIVE) Imaging Data Attestation: I personally reviewed and interpreted this imaging study as follows: My Impression: Chest x-ray: Cardiomegaly with cephalization ECG Data Attestation: I personally reviewed and interpreted this ECG as follows: Interpretation: Sinus rhythm with rate of 60. MA 210 QRS [address] elevation or ST depression. Right bundle branch block present. No significant change from the EKG in April 2023. [facility] Narrative 1401: The patient was evaluated in room B12. A complete history and physical exam was performed Cardiac monitoring: An order was placed for continuous cardiac monitoring. The monitor shows a rate of 50 with sinus rhythm interpreted by me Oxygen saturation found to be low at 86% on room air, supplemental oxygen was applied via nasal cannula which improved the patient's oxygen saturation. 1534: Vital signs stable on supplemental oxygen via nasal cannula. X-ray shows that the patient is fluid overloaded. Patient's creatinine is at baseline 2.15. BNP elevated at 1382 troponin 34.1. Patient will be admitted to [facility] for hypoxia and CHF exacerbation. Discussed with Dr. Caputo will evaluate him about diuresis given the patient's CKD and recent ABDOULAYE. Impression & Plan Hypoxia, CHF exacerbation Critical Care Time Critical Care Time: Yes Total Critical Care Time: 47 I have personally spent greater than 47 minutes of critical care time in the direct management of this patient. This includes bedside care, interpretation of diagnostic studies, and testing, discussion with consultants, patient, and family members, and other required patient management activities. This 47 minutes is in excess of all separately billable procedures. Discharge Plan Visit Data Chief Complaint: Shortness of Breath/Dyspnea ED Provider: Joseph Thomas Discharge Problem: Hypoxia, CHF exacerbation Patient Disposition: Admitted As Inpatient Forms Stand Alone Forms: My [facility] Prescriptions Prescriptions: No Action (DME) OneTouch Ultra Blue Test Strip Strip See Dose Instructions .ROUTE .MEDSUPPLY Qty: 100 5RF Rx Instructions: use 1 strip to check glucose 4 times daily dx: E10.42, E10.65, E10.319 (DME) FreeStyle [place] 2 [place] [facility] [place] Rx Instructions .ROUTE .MEDSUPPLY Qty: 1 0RF Rx Instructions: As directed atorvastatin [Lipitor] 80 mg tablet 80 mg PO QAM Qty: 90 1RF (DME) pen needle, diabetic [BD Ultra-Fine [place] Pen Needle] 32 gauge x 5/32" needle See Rx Instructions .Route Qty: 400 3RF Rx Instructions: Inject insulin four times daily ropinirole 1 mg tablet 3 mg PO HS Qty: 270 1RF bumetanide 2 mg tablet 4 mg PO BID Qty: 120 6RF Jardiance 10 mg tablet 10 mg PO DAILY Qty: 30 2RF Hold Instructions: Resume on 06/18/23. hold until [place] up [place]. [place] [place] lancets [OneTouch UltraSoft Lancets] [facility] [place] See Dose Instructions .ROUTE .MEDSUPPLY Qty: 50 Rx Instructions: test 4 times dailiy ascorbic acid (vitamin C) 500 mg capsule 500 mg PO QAM (DME) Wheelchair (Powered) Device See Rx Instructions .ROUTE .MEDSUPPLY Qty: 1 0RF Rx Instructions: powered wheelchair as directed (DME) FreeStyle Farhad 2 Sensor Kit See Rx Instructions .ROUTE .MEDSUPPLY Qty: 2 5RF Rx Instructions: As directed. Dx: E10.319, E10.65, E10.42. Testing BS qid calcitriol 0.5 mcg capsule 1 mcg PO QAM Qty: 60 4RF albuterol sulfate 90 mcg/actuation HFA aerosol inhaler 2 puff inhalation Q6H PRN (Reason: shortness of breath or wheezing) Qty: 18 3RF ergocalciferol (vitamin D2) 1,250 mcg (50,000 unit) capsule 50,000 unit PO WEEKLY Qty: 12 0RF Rx Instructions: hasnt started yet latanoprost [Xalatan] 0.005 % Drops 1 drp OPB HS aspirin 325 mg Tablet 325 mg PO QAM cholecalciferol (vitamin D3) [Vitamin D3] 50 mcg (2,000 unit) capsule 2,000 units PO QAM brimonidine 0.2 % drops 1 drp OPB BID timolol maleate 0.5 % gel forming solution 1 drp OPB BID dorzolamide 2 % drops 1 drp OPB BID trazodone 50 mg tablet 50 mg PO HS cyanocobalamin (vitamin B-12) 500 mcg Tablet 1,000 mcg PO QAM Qty: 0 0RF Rx Instructions: buy over the counter sertraline 25 mg tablet 25 mg PO DAILY Qty: 30 0RF potassium gluconate 595 mg (99 mg) tablet 1,785 mg PO QAM Novolin N NPH U-100 Insulin 100 unit/mL suspension 30 unit subcut BID Qty: 10 0RF Humulin R Regular U-100 Insuln 100 unit/mL solution 1 sliding scale dose subcut USEASDIRECTD Qty: 10 0RF metoprolol succinate 25 mg Tablet Extended Release 24 Hr 25 mg PO QAM Qty: 30 0RF isosorbide mononitrate 30 mg Tablet Extended Release 24 Hr 30 mg PO QAM Qty: 30 0RF losartan 50 mg Tablet 50 mg PO QAM Qty: 30 0RF ketoconazole 2 % shampoo 1 applic topical 3XWK Rx Instructions: MON, WED, FRI. apply to scalp, lather, rinse - 3 days/week. metolazone 5 mg tablet 5 mg PO DIRECTED PRN (Reason: weight gain) Rx Instructions: take dose in AM if weight does up 3 pound in a day or 5 pounds in a week Referrals Referrals: Leah Wolf DO [Primary Care Provider] - Discharge Problem: CHF exacerbation Qualifiers: Heart failure type: unspecified Qualified Code(s): I50.9 - Heart failure, unspecified
[2023-06-14] MEDS: ASPIRIN CHEW 324 MG PO STA (14:20)
[2023-06-14 14:27] LABS: Basophils # (auto) 0.05 K/uL (0.00-0.20); Basophils % (auto) 0.6 %; Eosinophils # (auto) 0.24 K/uL (0.00-0.50); Eosinophils % (auto) 3.1 %; Hematocrit (blood only) 31.2 % (42.0-52.0); Hemoglobin 10.4 g/dl (14.0-18.0); Immature Granulocytes # (auto) 0.04 K/uL (0.01-0.20); Immature Granulocytes % (auto) 0.5 %; Lymphocytes # (auto) 0.68 K/uL (1.20-3.40); Lymphocytes % (auto) 8.7 %; Mean Corpuscular Hgb Conc 33.3 g/dL (32.0-36.0); Mean Corpuscular Volume 92.9 fL (80.0-100.0); Mean Platelet Volume 12.7 fL (9.4-12.4); Monocytes % (auto) 7.7 %; Neutrophils # (auto) 6.19 K/uL (1.40-6.50); Neutrophils % (auto) 79.4 %; Platelet Count 154 K/uL (130-400); RDW Coefficient of Variation 13.4 % (11.5-14.5); RDW Standard Deviation 45.2 fL (36.4-46.3); Red Blood Count 3.36 M/uL (4.70-6.10)
--- NOTE | 2023-06-14 14:38 | XRay Report ---
XR chest 1V portable CLINICAL HISTORY: Chest pain, nonspecific TECHNIQUE: Single frontal radiograph of the chest was obtained. Comparison: Comparison is made to chest radiograph 05/28/2023 FINDINGS: Median sternotomy wires are unchanged. Aortic valvular prosthesis is seen. Prominence and cephalizati on of the vasculature is seen. No evidence of pleural effusion or pneumothorax. IMPRESSION: Cardiomegaly and mild pulmonary edema. ACT 112: Negative or not required by law. Electronically signed by: Lai Marion M.D. 06/14/2023 2:36 PM
[2023-06-14 14:43] LABS: BUN Creatinine Ratio 22.3 (10-20); Calcium 8.4 mg/dl (8.6-10.3); Creatinine Clr Calc Pharmacy 37.8 ml/min; Est GFR (African American) 33.9 ml/min; Est GFR (Non-African American) 29.3 ml/min; Potassium 4.2 mmol/L (3.5-5.1)
[2023-06-14 14:49] LABS: Troponin I High Sensitivity 34.1 pg/ml (0-20)
[2023-06-14 15:00] LABS: INR 1.1 (0.9-1.1); Partial Thromboplastin Ratio 0.9; Partial Thromboplastin Time 24 Seconds (21-31); Prothrombin Time 12.3 Seconds (9.0-12.0)
--- NOTE | 2023-06-14 15:34 | History & Physical Report ---
Date of Service June 14, 2023 Assessment & Plan (1) CHF exacerbation: Plan: Acute on chronic heart failure with preserved ejection fraction Patient w/ evidence of pulmonary edema chest x-ray, orthopnea and fluid overload. Denies weight gain, although weights vary depending on whether he is wearing his prosthesis and by bed weight is up over 10 kg on admission. BNP is elevated Home dose of Bumex 4 mg twice daily was decreased at last discharged to 4 mg a.m. and 2 mg p.m. he reports he has not missed doses of this, does not take metolazone - Discussed briefly w/ cards given prior low risk but abnormal stress with cath deferred partly 2/2 elevated Cr at the time and also on risk/benefit discussion. No indication for cath, agree w/ diuresis and tx for CHF. Admitted on bumex 4mg IV BID, BMP daily, strict ins and outs. +daily KCl replacement No chest pain at any point prior to admission. EKG without acute ischemic changes, redemonstrated first-degree heart block and right bundle. Troponin minimally elevated at 34 Low-salt diet, DM1 (2) Chronic kidney disease, stage 4 (severe): Plan: CKD, w/ hx of DM1 and nephrotic syndrome Baseline creatinine approximately 2.6 recently, creatinine on admission 2.15 Trend BMP daily No ABDOULAYE on admission (3) Ventricular bigeminy: Plan: History of bradycardia, ventricular bigeminy Patient with ventricular bigeminy at last admission, was tolerating metoprolol succinate low-dose well and had no episodes of bradycardia following initial prior admission Patient was recommended to discontinue all other kaelyn blocking agents including Cardizem. At transitional care visit patient thought he was still taking this, pt reports he thinks he is still taking this on admit but is not sure. Clarified he should only take the mtp on dc on admitting discussion. (4) 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, with long-term current use of insulin: Plan: Poorly controlled type I DM Patient takes NPH 30 units twice daily and sliding scale Humalog. Home antiglycemics held. Transition to basal bolus while inpatient - BSG AC/HS. goal 110-150 - BSG 135 on admit (5) GERD (gastroesophageal reflux disease): Plan: no acute sx (6) Hypertension: Plan: Hypertension Home meds continued History of Present Illness Primary Care Provider: DO Dayton Oneill is a 72-year-old male with a recent hospital admission 05/28/2023 - 06/04/2023 and was referred to the hospital 4 bradycardia by home health, was found to be in ventricular bigeminy during hospitalization, and who had evidence of type II demand ischemia at that time. Cardiology was consulted, stress test was low risk, and cardiac catheterization was not recommended on consultation with interventional cardiology during that admission. Patient remained euvolemic during admission despite having his Bumex held, on discharge was dose decreased with instructions to increase back to 4 mg twice daily if he had weight gain. Patient was discharged on metoprolol succinate 25 daily, and additional AV kaelyn blocking agents were recommended to be avoided. Patient has. Patient has. He maintained a heart rate greater than 50 while on metoprolol. Dayton presents to the ER 06/14/2023 with 1 day of shortness of breath, orthopnea, and chest discomfort. Chest x-ray showed cardiomegaly with mild pulmonary edema. Creatinine was 2.15, baseline approximately 2.6 recently. High sensitive troponin 34.1, was in the low 200s at prior discharge. Weight on admission 119 kg, last dry weight was approximately 104-105 kg.On admission patient was sinus rhythm first-degree AV block, right bundle branch block. This is similar to prior. No acute ischemic changes Dayton is seen at the bedside. He reports that over the last 2 days he has had progressive shortness of breath, orthopnea, and a little right leg swelling. He notes he checks his weight every day and does not think he has gained weight, notes he has to check his weight by his home scale after removing his left prosthesis and that his home scale tends to be very different from the hospital scale. He sleeps in a recliner which he is generally able to lay flat, notes that he has had to get up more recently and endorses some orthopnea. He has not had chest pain at any time. He has not had lightheadedness, dizziness, or syncope. He has no cough. No fevers or chills. He has been taking 4 mg of Bumex in the morning, 2 mg in the evening and does not think he has missed any doses. He has not been taking any metolazone. He just filled his metoprolol last week, he reports he was on diltiazem and thinks that he was still taking this at home. Medical History: Reviewed Medications: Reviewed Surgical History: Reviewed Family history: Reviewed Allergies: Reviewed Social History: Reviewed Code Status: Full Allergies Allergy/AdvReac Type Severity Reaction Status Date / Time ofloxacin [From Floxin] Allergy Intermediate itching Verified 06/14/23 15:09 Quinolones Allergy Intermediate Itchiness Verified 06/14/23 15:09 sulfamethoxazole Allergy Intermediate Rash Verified 06/14/23 15:09 trimethoprim Allergy Intermediate Rash Verified 06/14/23 15:09 Home Medications Medication Instructions Recorded Confirmed Type aspirin 325 mg tablet 325 mg PO QAM 12/27/17 06/14/23 History latanoprost 0.005 % eye drops 1 drp OPB HS 12/27/17 06/14/23 History (Xalatan) lancets (Visible MeasuresTouch UltraSoft #50 ea 12/12/18 05/11/23 History Lancets) cholecalciferol (vitamin D3) 50 2,000 units PO QAM 11/10/19 06/14/23 History mcg (2,000 unit) capsule (Vitamin D3) Wheelchair (Powered) #1 ea 11/22/19 05/28/23 Rx blood sugar diagnostic (OneTouch #100 ea 01/31/20 05/11/23 Rx Ultra Blue Test Strip) brimonidine 0.2 % eye drops 1 drp OPB BID 12/07/20 06/14/23 History dorzolamide 2 % eye drops 1 drp OPB BID 12/07/20 06/14/23 History timolol maleate 0.5 % eye gel 1 drp OPB BID 12/07/20 06/14/23 History forming solution ascorbic acid (vitamin C) 500 mg 500 mg PO QAM 02/19/21 06/14/23 History capsule potassium gluconate 595 mg (99 mg) 1,785 mg PO QAM 06/09/21 06/14/23 History tablet flash glucose scanning reader #1 ea 12/17/21 05/11/23 Rx (FreeStyle Farhad 2 [place]) flash glucose sensor (FreeStyle #2 ea 08/06/22 05/11/23 Rx Farhad 2 Sensor kit) trazodone 50 mg tablet 50 mg PO HS 10/12/22 06/14/23 History atorvastatin 80 mg tablet (Lipitor) 80 mg PO QAM #90 tabs 12/18/22 06/14/23 Rx calcitriol 0.5 mcg capsule 1 mcg (2 x 0.5 mcg) PO QAM #60 caps 01/25/23 06/14/23 Rx albuterol sulfate 90 mcg/actuation 2 puff inhalation Q6H PRN 02/10/23 06/14/23 Rx aerosol inhaler shortness of breath or wheezing #18 grams pen needle, diabetic 32 gauge x #400 ea 02/25/23 05/11/23 Rx 5/32" (BD Ultra-Fine [place] Pen Needle) ropinirole 1 mg tablet 3 mg (3 x 1 mg) PO HS #270 tabs 03/16/23 06/14/23 Rx bumetanide 2 mg tablet 4 mg (2 x 2 mg) PO BID #120 tabs 04/09/23 06/14/23 Rx insulin NPH isoph U-100 human 100 30 unit (0.3 mL) subcut BID #10 mL 04/19/23 06/14/23 Rx unit/mL subcutaneous suspension (Novolin N NPH U-100 Insulin isophane) insulin regular human 100 unit/mL 1 sliding scale dose subcut 04/19/23 06/14/23 Rx injection solution (Humulin R USEASDIRECTD #10 mL Regular U-100 Insulin) cyanocobalamin (vitamin B-12) 500 1,000 mcg (2 x 500 mcg) PO QAM #0 05/04/23 06/14/23 Rx mcg tablet tabs sertraline 25 mg tablet 25 mg PO DAILY #30 tabs 05/04/23 06/14/23 Rx empagliflozin 10 mg tablet 10 mg PO DAILY #30 tabs 05/27/23 06/14/23 Rx (Jardiance) ergocalciferol (vitamin D2) 1,250 50,000 unit PO WEEKLY #12 caps 05/27/23 06/14/23 Rx mcg (50,000 unit) capsule isosorbide mononitrate 30 mg 30 mg PO QAM #30 tabs 06/04/23 06/14/23 Rx tablet,extended release 24 hr losartan 50 mg tablet 50 mg PO QAM #30 tabs 06/04/23 06/14/23 Rx metoprolol succinate 25 mg 25 mg PO QAM #30 tabs 06/04/23 06/14/23 Rx tablet,extended release 24 hr ketoconazole 2 % shampoo 1 applic topical 3XWK 06/14/23 06/14/23 History metolazone 5 mg tablet 5 mg PO DIRECTED PRN weight gain 06/14/23 06/14/23 History Past Med/Surg History Medical History Influenza A virus subtype H1 2009 pandemic strain present Slow to wake up after anesthesia Acute kidney failure Anemia of chronic disease Wound of lower extremity RLE wound "improved" per 01/27/21 wound clinic visit ([facility]); surgeon aware of patient's wound hx per 01/2021 office visit note; "only has a little scab there now, keeps it covered to protect it." Diabetes, type I Chronic kidney disease, stage 4 (severe) Nephrotic syndrome HF clinic office visit (02/08/20): "referred to the program for assistance with management of diuretic resistant hypervolemia in the setting of nephrotic syndrome. His hypervolemia is not felt to be secondary to heart failure. He has been stable on Bumex 3 mg BID. His weight has been stable. Follow up labs demonstrate kidney function and electrolytes stable. Discussed consistent daily standing weights. I&Os. 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 GERD (gastroesophageal reflux disease) Mild obstructive sleep apnea "Mild" > no device Restless leg syndrome History of TIA (transient ischemic attack) ~2009>over his left eye, no residual symptoms Surgical History Status post below knee amputation of left lower extremity S/P arteriovenous (AV) fistula creation left>no currently having dialysis History of esophagogastroduodenoscopy (EGD) History of colonoscopy S/P lumbar laminectomy S/P foot surgery S/P eye surgery B/L x3 (for glaucoma) S/P CABG x 4 CABG x4 (2011), [facility] Raul; f/u PCP History of lumbar discectomy History of tonsillectomy Family History Father , age 78 with prostate cancer Colorectal cancer Cardiovascular disease Diabetes Prostate cancer Grandmother (Maternal) Diabetes Mother , age 54 of throat cancer Throat cancer Denies family history of Ovarian cancer Myocardial infarction Breast cancer Social History Smoking Status: Never smoker Second Hand Exposure: No; Do You Dip or Chew Tobacco: No; Hx Alcohol Use: No Hx Substance Use: No Preferred Language: Persian Communication Ability: Effective Visual Impairment: No Limitations Hearing Ability: Normal Manager Title Required: No Beliefs That Will Affect Care: None marital status: / marital status details: lost August 2021 Current Living Situation: Alone current occupational status: retired current occupation: How many Children do You have: 2 other: Retired age 63-1/2. Feels Safe at Home: Yes Childhood Exposure to Second-Hand Smoke: No Diet: regular caffeine: No during the past year weight has: remained stable Dental Care, Regularly: Yes Physical Activity Frequency: Other Physical Activity Frequency Comment: limited d/t disability Seatbelt Use: always Sunscreen Use: Yes Assistive Devices: Prosthesis, Scooter/Electric Scooter and Walker Physical Exam Physical Exam: General: A&Ox3. NAD. Cooperative. HEENT: Atraumatic, normocephalic. vision/hearing intact Pulm: +Bibasilar crackles, no rales. Symmetrical chest rise. No increased work of breathing. No respiratory distress. On 2L NC. Cardiac: RRR, -mrg. Radial pulses intact and symmetrical. +JVD Abdominal: Nontender, nondistended, soft. BS present. Ext: s/p L bka. RLE with 2+ pitting edema Results & Data Results & Data Vital Signs (Past 12 Hours) Vital Signs Temp Pulse Resp BP Pulse Ox O2 Del Method O2 Flow Rate 06/14/23 14:54 86 L Room Air 06/14/23 14:22 96 Nasal Cannula 2 06/14/23 14:15 58 L 06/14/23 14:12 60 Nasal Cannula 2 06/14/23 13:55 36.7 C 60 20 136/66 84 L Room Air PG Care Time/CCT Total # of Minutes Spent Total Time Spent with Patient: Total time spent is greater than 50% in coordination of care (as documented) at patient's floor/unit and/or counseling patient: Coding Level of Care Code 98696 INT INP/OBS CARE MIN Diagnoses CHF exacerbation I50.9 Heart failure type: unspecified Chronic kidney disease, stage 4 (severe) N18.4 Ventricular bigeminy I49.8 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, with long-term current use of insulin E10.319; E10.65 GERD (gastroesophageal reflux disease) K21.9 Primary hypertension I10 Hypertension type: primary hypertension (1) CHF exacerbation Heart failure type: unspecified Qualified Code(s): I50.9 - Heart failure, unspecified (6) Hypertension Hypertension type: primary hypertension Qualified Code(s): I10 - Essential (primary) hypertension
[2023-06-14] MEDS ORDERED: PHARMACY GLYCEMIC MGMT CONSULT PRN (16:03)
[2023-06-14] MEDS ORDERED: GLUCOSE 40% GEL 15 GM TUBE PO PRN (16:04)
[2023-06-14] MEDS ORDERED: DEXTROSE 50% 50 ML SYRINGE IV PRN (16:04)
[2023-06-14] MEDS ORDERED: CARBOHYDRATES FOR HYPOGLYCEMIA PO PRN (16:04)
[2023-06-14] MEDS ORDERED: GLUCOSE 10 TAB/TUBE PO PRN (16:04)
[2023-06-14] MEDS ORDERED: GLUCAGON FOR INJ 1 MG VIAL SQ PRN (16:04)
--- NOTE | 2023-06-14 17:01 | Electrocardiogram Report ---
Test Reason : Blood Pressure : / mmHG Vent. Rate : 060 BPM Atrial Rate : 060 BPM P-R Int : 210 ms QRS Dur : 144 ms QT Int : 500 ms P-R-T Axes : 016 043 010 degrees QTc Int : 500 ms Sinus rhythm with 1st degree A-V block Right bundle branch block Possible Old Anteroseptal infarct Abnormal ECG When compared with ECG of 28-MAY-2023 13:48, Premature ventricular complexes are no longer Present Confirmed by Malcolm Croft ([id number]) on 06/14/2023 5:00:54 PM Referred By: REFERRED SELF Confirmed By:Malcolm Croft
[2023-06-14] MEDS ORDERED: ACETAMINOPHEN 325 MG TAB PO PRN (17:47)
[2023-06-14] MEDS: INSULIN ASPART PER UNIT CHARGE SC SCH ×2 (18:25→20:13)
[2023-06-14] MEDS: BUMETANIDE 2 MG in SYRINGE 0 ML IV SCH (18:26)
--- NOTE | 2023-06-14 19:31 | Pharmacy Report ---
Pharmacy Glycemic Short Note 2 - Date of Service June 14, 2023 - Glycemic Short BSG Results (Last 24 hours): 06/14/23 06/14/23 14:05 17:00 Glucose 135 H POC Glucose 144 H OUTPATIENT ANTIDIABETIC REGIMEN: * NPH 30 units SC BIDM * Humulin R SSI * Jardiance 10 mg PO daily * HbA1c: 8.8% (05/29/23) ASSESSMENT: * 72 yo M admitted on 06/14/23 secondary to shortness of breath. Pharmacy has been consulted to assist with inpatient glycemic management. Patient is a Type 1 diabetic as an outpatient. Please refer to outpatient regimen and most recent HbA1c above. * BSG was 135 mg/dL in the ED and 144 mg/dL upon transfer to the floor. Patient is ordered and tolerating a T1DM diet. * Will base regimen on previous admission data as patient has complex regimen while inpatient in recent months. PLAN FOR INPATIENT GLYCEMIC CONTROL: * Basal insulin * NPH 12 units SC BIDM * Bolus insulin * NovoLog per scale ACHS or Q6hrs while NPO * Goal Range: Low 110 mg/dL - High 140 mg/dL * Breakfast: Correction Factor: 15 mg/dL/unit; Carb ratio of 1 unit per 4 grams CHO consumed * Lunch/Dinner: Correction Factor: 35 mg/dL/unit; Carb ratio of 1 unit per 9 grams CHO consumed * Bedtime: Correction Factor: 50 mg/dL/unit; Carb ratio of 1 unit per 15 grams CHO consumed
[2023-06-14] MEDS: INSULIN HUMAN NPH SC STA (19:47)
[2023-06-14] MEDS: rOPINIRole HCL 1 MG TABLET PO SCH (20:00)
[2023-06-14] MEDS: traZODone HCL 50 MG TAB PO SCH (20:00)
[2023-06-14] MEDS: LATANOPROST 0.005% OP SOLN 2.5 ML BTL OPB SCH (20:00)
[2023-06-14] MEDS: HEPARIN SOD 5,000 UNIT/0.5 ML VIAL SQ SCH (20:06)
[2023-06-15 06:07] LABS: Basophils # (auto) 0.05 K/uL (0.00-0.20); Basophils % (auto) 0.8 %; Eosinophils # (auto) 0.32 K/uL (0.00-0.50); Eosinophils % (auto) 5.1 %; Hematocrit (blood only) 33.5 % (42.0-52.0); Hemoglobin 11.4 g/dl (14.0-18.0); Immature Granulocytes # (auto) 0.01 K/uL (0.01-0.20); Immature Granulocytes % (auto) 0.2 %; Lymphocytes % (auto) 12.8 %; Mean Corpuscular Hemoglobin 31.2 pg (25.0-34.0); Mean Corpuscular Volume 91.8 fL (80.0-100.0); Mean Platelet Volume 12.7 fL (9.4-12.4); Monocytes # (auto) 0.55 K/uL (0.11-0.59); Monocytes % (auto) 8.8 %; Neutrophils # (auto) 4.52 K/uL (1.40-6.50); Neutrophils % (auto) 72.3 %; Platelet Count 163 K/uL (130-400); RDW Coefficient of Variation 13.2 % (11.5-14.5); RDW Standard Deviation 45.2 fL (36.4-46.3); Red Blood Count 3.65 M/uL (4.70-6.10); White Blood Count 6.25 K/ul (4.8-10.8)
[2023-06-15 06:26] LABS: BUN Creatinine Ratio 22.9 (10-20); Calcium 8.7 mg/dl (8.6-10.3); Est GFR (African American) 34.1 ml/min; Est GFR (Non-African American) 29.4 ml/min; Potassium 4.4 mmol/L (3.5-5.1)
[2023-06-15] MEDS: POTASSIUM CHLORIDE CRTAB 20 MEQ TABCR PO SCH (09:05)
[2023-06-15] MEDS: ASPIRIN 81 MG ECTAB PO SCH (09:05)
[2023-06-15] MEDS: LOSARTAN POTASSIUM 50 MG TAB PO SCH (09:05)
[2023-06-15] MEDS: SERTRALINE HCL 50 MG TABLET PO SCH (09:06)
[2023-06-15] MEDS: CHOLECALCIFEROL 25 MCG (1000 UNITS) TAB PO SCH (09:06)
[2023-06-15] MEDS: CALCITRIOL 0.25 MCG CAPSULE PO SCH (09:06)
[2023-06-15] MEDS: ATORVASTATIN 40 MG TAB PO SCH (09:06)
[2023-06-15] MEDS: ISOSORBIDE MONO EXTENDED REL 30 MG TABCR PO SCH (09:06)
[2023-06-15] MEDS: METOPROLOL SUCC 25MG EXT REL TAB PO SCH (09:07)
[2023-06-15] MEDS: INSULIN HUMAN NPH SC SCH (09:08)
[2023-06-15] MEDS: INSULIN ASPART PER UNIT CHARGE SC SCH (09:12)
--- NOTE | 2023-06-15 12:57 | Hospitalist Progress Note ---
Date of Service June 15, 2023 Assessment & Plan (1) Acute on chronic combined systolic and diastolic CHF (congestive heart failure): Plan: Bumex parenteral diuresis. Metolazone ordered today, June 14. Monitor intake and output. Serial chest x-ray (2) Acute hypoxic respiratory failure: Plan: Supplemental oxygen per nasal cannula to maintain saturation greater than 90%. Wean off as tolerated (3) Chronic kidney disease, stage 4 (severe): Plan: Monitor intake and output. Serial labs (4) Type 2 diabetes mellitus: Plan: ADA diet. Basal insulin therapy. Sliding scale coverage as needed (5) S/P CABG x 4: Plan: Known coronary artery disease with history of coronary artery bypass grafting. No chest pain currently. Continue current medical management Plan Hopeful discharge to home in 2 to 3 days Admission and Anticipated Discharge Date Admission Date: June 14, 2023 Subjective Alert and oriented. No distress. He remains on parenteral Bumex therapy. 1 dose of metolazone ordered today, June 14. Will repeat chest x-ray again tomorrow, June 15. He is currently on 2 L of oxygen with saturation 97%. Creatinine stable at 2.1. Most recent cardiac echo revealed ejection fraction of 45 to 50%. This appears to be combined acute on chronic diastolic and systolic CHF. Review of Systems 2 Review of Systems: Constitutional-no fever or chills ENT-no blurred vision, no double vision, no epistaxis, no sore throat Respiratory-no cough, no wheezing. Shortness of breath with exertion Cardiac-no palpitations, no chest pain, no syncope GI-no nausea, vomiting, diarrhea, melena, hematochezia -no urinary retention, no urinary incontinence, no dysuria, no hematuria Musculoskeletal-no joint pain, no muscle tenderness Skin-no bruising, no rashes, no pruritus Neuro-no isolated weakness, no paresthesia, no weakness Psych-no depression, no anxiety Physical Exam 2 Physical Exam: General-alert and oriented x3, no fever, no chills HEENT-head atraumatic and normocephalic, pupils equal and reactive to light, extraocular muscles intact Neck-no lymphadenopathy or thyromegaly, trachea midline Chest-bibasilar inspiratory rales. No wheezing. No rhonchi Cardiac-regular rate and rhythm, normal S1 and S2 Abdomen-normal bowel sounds, nontender, no hepatosplenomegaly Extremities-left BKA status. Brawny induration right lower extremity from chronic venous insufficiency. 1+ edema. Neuro- Cranial nerves II through XII intact, motor and sensory function within normal limits, strength symmetrical, no focal deficits Psych-flat affect Results & Data Results & Data Vital Signs (Past 12 Hours) Vital Signs Temp Pulse Pulse Resp BP Pulse Ox Pulse Ox 06/15/23 11:19 36.6 C 72 20 169/75 H 97 06/15/23 08:00 97 06/15/23 08:00 36.7 C 60 18 174/89 H 97 06/15/23 07:00 52 L 06/15/23 02:25 36.6 C 55 L 20 191/81 H 100 O2 Del Method O2 Del Method O2 Flow Rate 06/15/23 11:19 Nasal Cannula 2 06/15/23 08:00 Nasal Cannula 06/15/23 08:00 Nasal Cannula 2 06/15/23 07:00 06/15/23 02:25 Nasal Cannula 2 Laboratory Results 06/15/23 05:50 06/15/23 05:50 PG Care Time/CCT Total # of Minutes Spent Total Time Spent with Patient: Total time spent is greater than 50% in coordination of care (as documented) at patient's floor/unit and/or counseling patient: Coding Level of Care Code 34253 SUB INP/OBS CARE 3/50MIN Diagnoses Acute on chronic combined systolic and diastolic CHF (congestive heart failure) I50.43 Acute hypoxic respiratory failure J96.01 Chronic kidney disease, stage 4 (severe) N18.4 Type 2 diabetes mellitus E11.9 S/P CABG x 4 Z95.1
[2023-06-15] MEDS: metOLazone 5 MG TABLET PO ONE (13:19)
[2023-06-15] MEDS: BUMETANIDE 4 MG in SYRINGE 0 ML IV SCH (17:28)
[2023-06-16 06:34] LABS: Basophils # (auto) 0.03 K/uL (0.00-0.20); Basophils % (auto) 0.5 %; Eosinophils # (auto) 0.37 K/uL (0.00-0.50); Eosinophils % (auto) 5.9 %; Hematocrit (blood only) 32.7 % (42.0-52.0); Hemoglobin 11.1 g/dl (14.0-18.0); Immature Granulocytes # (auto) 0.02 K/uL (0.01-0.20); Immature Granulocytes % (auto) 0.3 %; Lymphocytes # (auto) 0.79 K/uL (1.20-3.40); Lymphocytes % (auto) 12.5 %; Mean Corpuscular Hemoglobin 31.1 pg (25.0-34.0); Mean Corpuscular Hgb Conc 33.9 g/dL (32.0-36.0); Mean Corpuscular Volume 91.6 fL (80.0-100.0); Mean Platelet Volume 12.8 fL (9.4-12.4); Monocytes # (auto) 0.52 K/uL (0.11-0.59); Monocytes % (auto) 8.2 %; Neutrophils # (auto) 4.59 K/uL (1.40-6.50); Neutrophils % (auto) 72.6 %; Platelet Count 149 K/uL (130-400); RDW Coefficient of Variation 13.1 % (11.5-14.5); Red Blood Count 3.57 M/uL (4.70-6.10); White Blood Count 6.32 K/ul (4.8-10.8)
[2023-06-16 06:42] LABS: BUN Creatinine Ratio 24.3 (10-20); Calcium 8.7 mg/dl (8.6-10.3); Creatinine Clr Calc Pharmacy 36.6 ml/min; Est GFR (African American) 32.6 ml/min; Est GFR (Non-African American) 28.1 ml/min; Potassium 4.1 mmol/L (3.5-5.1)
--- NOTE | 2023-06-16 07:32 | XRay Report ---
XR chest 1V portable CLINICAL HISTORY: CHF TECHNIQUE: Single frontal radiograph of the chest was obtained. Comparison: Comparison is made to chest radiograph 06/14/2023 FINDINGS: Median sternotomy wires are unchanged. Cardiomegaly is noted. The lungs are clear. No evidence of ple ural effusion or pneumothorax. IMPRESSION: No acute chest disease in particular no pulmonary edema. Cardiomegaly is noted. ACT 112: Negative or not required by law. Electronically signed by: Lai Marion M.D. 06/16/2023 7:31 AM
--- NOTE | 2023-06-16 10:25 | Discharge Summary ---
Date of Service June 16, 2023 Admission HPI Per Admitting Provider Dayton is a 72-year-old male with a recent hospital admission 05/28/2023 - 06/04/2023 and was referred to the hospital 4 bradycardia by home health, was found to be in ventricular bigeminy during hospitalization, and who had evidence of type II demand ischemia at that time. Cardiology was consulted, stress test was low risk, and cardiac catheterization was not recommended on consultation with interventional cardiology during that admission. Patient remained euvolemic during admission despite having his Bumex held, on discharge was dose decreased with instructions to increase back to 4 mg twice daily if he had weight gain. Patient was discharged on metoprolol succinate 25 daily, and additional AV kaelyn blocking agents were recommended to be avoided. Patient has. Patient has. He maintained a heart rate greater than 50 while on metoprolol. Dayton presents to the ER 06/14/2023 with 1 day of shortness of breath, orthopnea, and chest discomfort. Chest x-ray showed cardiomegaly with mild pulmonary edema. Creatinine was 2.15, baseline approximately 2.6 recently. High sensitive troponin 34.1, was in the low 200s at prior discharge. Weight on admission 119 kg, last dry weight was approximately 104-105 kg.On admission patient was sinus rhythm first-degree AV block, right bundle branch block. This is similar to prior. No acute ischemic changes Dayton is seen at the bedside. He reports that over the last 2 days he has had progressive shortness of breath, orthopnea, and a little right leg swelling. He notes he checks his weight every day and does not think he has gained weight, notes he has to check his weight by his home scale after removing his left prosthesis and that his home scale tends to be very different from the hospital scale. He sleeps in a recliner which he is generally able to lay flat, notes that he has had to get up more recently and endorses some orthopnea. He has not had chest pain at any time. He has not had lightheadedness, dizziness, or syncope. He has no cough. No fevers or chills. He has been taking 4 mg of Bumex in the morning, 2 mg in the evening and does not think he has missed any doses. He has not been taking any metolazone. He just filled his metoprolol last week, he reports he was on diltiazem and thinks that he was still taking this at home. Medical History: Reviewed Medications: Reviewed Surgical History: Reviewed Family history: Reviewed Allergies: Reviewed Social History: Reviewed Code Status: Full Principal Diagnosis Acute on chronic combined systolic and diastolic CHF, acute hypoxic respiratory failure Discharge Exam General-alert and oriented x3, no fever, no chills HEENT-head atraumatic and normocephalic, pupils equal and reactive to light, extraocular muscles intact Neck-no lymphadenopathy or thyromegaly, trachea midline Chest-bibasilar inspiratory rales have now resolved. No wheezing. No rhonchi Cardiac-regular rate and rhythm, normal S1 and S2 Abdomen-normal bowel sounds, nontender, no hepatosplenomegaly Extremities-left BKA status. Brawny induration right lower extremity from chronic venous insufficiency. 1+ edema. Neuro- Cranial nerves II through XII intact, motor and sensory function within normal limits, strength symmetrical, no focal deficits Psych-flat affect Discharge Data Allergies Allergy/AdvReac Type Severity Reaction Status Date / Time ofloxacin [From Floxin] Allergy Intermediate itching Verified 06/14/23 15:09 Quinolones Allergy Intermediate Itchiness Verified 06/14/23 15:09 sulfamethoxazole Allergy Intermediate Rash Verified 06/14/23 15:09 trimethoprim Allergy Intermediate Rash Verified 06/14/23 15:09 Consultations 06/14/23 14:52 ED Decision to Admit Stat Hospital Course (1) Acute on chronic combined systolic and diastolic CHF (congestive heart failure): Bumex parenteral diuresis. Metolazone ordered on June 14 resulted in brisk diuresis. Will continue metolazone at discharge on a Wednesday basis. Continue Bumex orally 4 mg twice daily as before. Monitor intake and output. Chest x-ray done today, June 15, is now clear with resolution of CHF. He is now on room air. Serial chest x-ray while hospitalized (2) Acute hypoxic respiratory failure: Resolved. He is now on room air. (3) Chronic kidney disease, stage 4 (severe): Monitor intake and output. Serial labs while (4) Type 2 diabetes mellitus: ADA diet. Basal insulin therapy. Sliding scale coverage as needed (5) S/P CABG x 4: Known coronary artery disease with history of coronary artery bypass grafting. No chest pain currently. Continue current medical management Plan Home today, June 15. This CHF has resolved and he is now on room air. Will continue metolazone 5 mg every Wednesday and Wednesday going forward. Total Time Total Time Spent Total Time Spent (In Minutes): 50-minute Discharge Plan Discharge Items Patient Disposition: Home - Home Health Services Reason For Visit: [facility] Discharge Diagnosis: Acute on chronic combined systolic and diastolic CHF, acute hypoxic respiratory failure Activity: Resume your previous activity Non-emergency contact: Primary Care Provider and [employer] Operator Call non-emergency contact if: you have any medication questions and your symptoms worsen Follow-up/Referrals: Leah Wolf DO [Primary Care Provider] - Diet: Carb Consistent or DM2 and Heart Healthy Addtl Attending Provider Instructions: Take metolazone 5 mg every Wednesday and Wednesday. Take potassium pill once daily. All other medications remain the same. Avoid excessive water intake Pending Studies at Discharge: No Stand-Alone Forms: My Moodswiing, Smoking Cessation Medications and DC Order Prescriptions: New potassium chloride 20 mEq Tablet,Er Particles/Crystals 10 meq PO QAM Qty: 30 0RF metolazone 5 mg tablet See Rx Instructions .ROUTE .COMPLEX Qty: 30 0RF Rx Instructions: 5 mg orally every Wednesday, Wednesday, and Wednesday Continued (DME) OneTouch Ultra Blue Test Strip Strip See Dose Instructions .ROUTE .MEDSUPPLY Qty: 100 5RF Rx Instructions: use 1 strip to check glucose 4 times daily dx: E10.42, E10.65, E10.319 (DME) FreeStyle Farhad 2 [facility] [place] See Rx Instructions .ROUTE .MEDSUPPLY Qty: 1 0RF Rx Instructions: As directed atorvastatin [Lipitor] 80 mg tablet 80 mg PO QAM Qty: 90 1RF (DME) pen needle, diabetic [BD Ultra-Fine [place] Pen Needle] 32 gauge x 5/32" needle See Rx Instructions .Route Qty: 400 3RF Rx Instructions: Inject insulin four times daily ropinirole 1 mg tablet 3 mg PO HS Qty: 270 1RF bumetanide 2 mg tablet 4 mg PO BID Qty: 120 6RF Jardiance 10 mg tablet 10 mg PO DAILY Qty: 30 2RF Hold Instructions: Resume on 06/18/23. hold until follow up with Dr. Richardson (DME) lancets [OneTouch UltraSoft Lancets] [facility] [place] See Dose Instructions .ROUTE .MEDSUPPLY Qty: 50 Rx Instructions: test 4 times dailiy ascorbic acid (vitamin C) 500 mg capsule 500 mg PO QAM ([facility] [place]) Wheelchair (Powered) Device See Rx Instructions .ROUTE .MEDSUPPLY Qty: 1 0RF Rx Instructions: powered wheelchair as directed ([facility] [place]) FreeStyle Farhad 2 Sensor Kit See Rx Instructions .ROUTE .MEDSUPPLY Qty: 2 5RF Rx Instructions: As directed. Dx: E10.319, E10.65, E10.42. Testing BS qid calcitriol 0.5 mcg capsule 1 mcg PO QAM Qty: 60 4RF albuterol sulfate 90 mcg/actuation HFA aerosol inhaler 2 puff inhalation Q6H PRN (Reason: shortness of breath or wheezing) Qty: 18 3RF ergocalciferol (vitamin D2) 1,250 mcg (50,000 unit) capsule 50,000 unit PO WEEKLY Qty: 12 0RF Rx Instructions: hasnt started yet latanoprost [Xalatan] 0.005 % Drops 1 drp OPB HS aspirin 325 mg Tablet 325 mg PO QAM cholecalciferol (vitamin D3) [Vitamin D3] 50 mcg (2,000 unit) capsule 2,000 units PO QAM brimonidine 0.2 % drops 1 drp OPB BID timolol maleate 0.5 % gel forming solution 1 drp OPB BID dorzolamide 2 % drops 1 drp OPB BID trazodone 50 mg tablet 50 mg PO HS cyanocobalamin (vitamin B-12) 500 mcg Tablet 1,000 mcg PO QAM Qty: 0 0RF Rx Instructions: buy over the counter sertraline 25 mg tablet 25 mg PO DAILY Qty: 30 0RF potassium gluconate 595 mg (99 mg) tablet 1,785 mg PO QAM Novolin N NPH U-100 Insulin 100 unit/mL suspension 30 unit subcut BID Qty: 10 0RF Humulin R Regular U-100 Insuln 100 unit/mL solution 1 sliding scale dose subcut USEASDIRECTD Qty: 10 0RF metoprolol succinate 25 mg Tablet Extended Release 24 Hr 25 mg PO QAM Qty: 30 0RF isosorbide mononitrate 30 mg Tablet Extended Release 24 Hr 30 mg PO QAM Qty: 30 0RF losartan 50 mg Tablet 50 mg PO QAM Qty: 30 0RF ketoconazole 2 % shampoo 1 applic topical 3XWK Rx Instructions: MON, WED, FRI. apply to scalp, lather, rinse - 3 days/week. Discontinued metolazone 5 mg tablet 5 mg PO DIRECTED PRN (Reason: weight gain) Rx Instructions: take dose in AM if weight does up 3 pound in a day or 5 pounds in a week Discharge Orders: Discharge Order- CHF (Routine); Ordered 06/16/23 Ordered By: Gregorio Avalos Admission Data Admit Date/Time: 06/14/23 16:01 Attending Provider: Gregorio Avalos Admit Provider: Keron Caputo Primary Care Provider: Leah Wolf Other Providers: Keron Caputo Coding Level of Care Code 57727 INP/OBS DISCH >30 MIN Diagnoses Acute on chronic combined systolic and diastolic CHF (congestive heart failure) I50.43 Acute hypoxic respiratory failure J96.01 Chronic kidney disease, stage 4 (severe) N18.4 Type 2 diabetes mellitus E11.9 S/P CABG x 4 Z95.1
== END 2023-06-16 11:54 | disposition home health service (06) | DRG 291 ==
LOC: ED 13:55 → 4W 16:01 → SUATTDRO 16:01 → 4W 16:25

== ENCOUNTER 2023-08-26 14:39 | Inpatient (IN) ==
--- NOTE | 2023-08-26 14:42 | ED Triage Note ---
Date of Service August 26, 2023 Provider in Triage Author: Lise Toribio History of Present Illness This patient was briefly evaluated while in triage. An abbreviated physical exam was performed. This patient is a 72-year-old Male who presents to the ED for evaluation hx of CKD, CHF, LBKA, DM, HTN Fell on Wednesday (4 days ago), laid in the driveway x 2 hours, and crawled into the house Right leg-abrasions/skin tears developed swelling, redness and warmth dry heaves, no fevers was just at nephrology appointment and sent here Physical Exam GENERAL: NAD, afebrile, normotensive CARDIOVASCULAR: RRR RESPIRATORY: CTA EXT: RLE with multiple scabbed over abrasions, calf is swollen, erythematous, TTP. Initial orders for labs and / or imaging were placed and patient was placed in the waiting area until a bed is available. Please see further documentation for the full ED course.
--- NOTE | 2023-08-26 15:27 | Emergency Department Note ---
Impression & Plan Cellulitis ADMIT ED Provider Note HPI: History obtained from patient. The patient is a 72-year-old gentleman with history of chronic kidney disease, CVA, mixed systolic and diastolic heart failure, diabetic nephropathy, coronary artery disease, status post left-sided BKA, presents emergency department with a chief complaint of swelling and pain in his right lower extremity. Patient states he had a fall on Wednesday when he was getting out of his truck. He states that he had sustained some abrasions mostly to the anterior aspect of his right lower extremity from the knee down. Patient states he was on the ground for approximately 2 hours but was able to crawl to his house and call 911 for help. Patient states when the medics arrived they assisted him in his home and he declined transport to the hospital and decided to take a shower instead. Patient states he is experienced some increased swelling and redness around his abrasions since Wednesday. Patient states he saw his ldr nurse on Wednesday who put him on Keflex but according to his family member at the bedside the patient has only been taking 1 of these pills daily since Wednesday (not as prescribed). On arrival here to the ED the patient is hemodynamically stable, he otherwise appears to be in no acute distress. ROS: - Per HPI Differential Diagnosis: DVT, cellulitis, necrotizing soft tissue infection, osteomyelitis, abscess, amongst other potential pathologies. *Outpatient medications and allergy history reviewed. PE: General: Alert HEENT: Normocephalic, trachea midline Eyes: Extraocular eye movement is intact, no scleral erythema Pulmonary: Clear to auscultation bilaterally, no wheezing Cardio: Regular rate and rhythm GI: Abdomen is soft to palpation : No suprapubic tenderness MSK: Status post left BKA, right lower extremity is edematous in comparison to the left with overlying erythema Skin: Multiple abrasions mostly over the anterior aspect of the right lower extremity over the knee and below the knee, there is moderate surrounding erythema that is circumferential, no evidence of palpable fluctuant mass, no crepitus to palpation of the soft tissue/skin in the right lower extremity Neuro: Alert, no focal deficits Psychiatric: Cooperative INDEPENDENT INTERPRETATIONS: judge clerk: (As interpreted by myself): - An order was placed for continuous cardiac monitoring - Patient was noted to be in sinus rhythm with a rate of 65 Interventions provided in ED: -IV fluid bolus, IV cefepime, IV morphine, IV Zofran Medical Decision Making: IV was established and lab work obtained, 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 Lab work shows no leukocytosis, hemoglobin is stable at 10.7, platelet count is normal. CMP shows a mild hypokalemia at 3.4, creatinine is elevated at 2.82 which is just slightly above baseline, BUN is 92, lactic acid is normal, procalcitonin is normal at 0.19. Blood cultures were drawn here in the ED given the appearance of the right lower extremity and concern for cellulitis with potential systemic infection. Ultrasound imaging of the right lower extremity does not show any evidence of DVT. CT imaging of the right lower extremity shows diffuse skin thickening and subcutaneous edema concerning for cellulitis per the interpreting radiologist. There is no evidence of abscess. On my reassessment patient states the pain medicine did improve his pain. Given his worsening infection in the setting of outpatient antibiotics, comorbidities including diabetes and renal failure, I feel he would benefit from admission for administration of IV antibiotics and further observation of his cellulitis. Patient is in agreement to this plan, [facility] hospitalist service was consulted for admission. Consultants/Discussions held with other healthcare providers: -Hospitalist, Dr. Ware Disposition discussion held by myself with: -Patient and family member at bedside Diagnosis: 1. Right lower extremity cellulitis, acute 2. Right lower extremity abrasions, subacute 3. Chronic kidney disease 4. Insulin-dependent diabetes Disposition: Admission Anselmo Saravia DO Emergency Medicine Past Med/Surg History Problem List (Updated 08/26/23 @ 18:13 by Anselmo Saravia DO) Cellulitis (Acute) Chronic kidney disease, stage 4 (severe) Nausea Abrasion of multiple sites of right lower extremity Chronic combined systolic and diastolic heart failure Hypoxia (Acute) Cardiomyopathy Chronic seborrheic dermatitis Status post below knee amputation of left lower extremity Depression Generalized pruritus Grief History of colon polyps Impotence, organic Vitamin D deficiency Tubular adenoma of colon History of CVA (cerebrovascular accident) PT DENIES Glaucoma Peripheral positional vertigo Keloid scar of skin (Acute) Lower extremity edema (Chronic) Insomnia Anemia of chronic disease Nephrotic syndrome Diabetic nephropathy CAD, multiple vessel s/p CABG x4 (2011) Diabetic peripheral 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 Diverticulosis hx Dyslipidemia Restless leg syndrome Mild obstructive sleep apnea "Mild" > no device 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 DDD (degenerative disc disease), lumbar Medical History Type 2 diabetes mellitus Ventricular bigeminy 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, with long-term current use of insulin (HFpEF) heart failure with preserved ejection fraction Acute kidney injury superimposed on chronic kidney disease Pressure ulcer of BKA stump, stage 3 Influenza A virus subtype H1 2009 pandemic strain present Slow to wake up after anesthesia Wound of lower extremity Diabetes, type I Hypertension GERD (gastroesophageal reflux disease) History of TIA (transient ischemic attack) Surgical History Status post below knee amputation of left lower extremity S/P arteriovenous (AV) fistula creation History of esophagogastroduodenoscopy (EGD) History of colonoscopy S/P lumbar laminectomy S/P foot surgery S/P eye surgery S/P CABG x 4 History of lumbar discectomy History of tonsillectomy Family History Father , age 78 with prostate cancer Colorectal cancer Cardiovascular disease Diabetes Prostate cancer Grandmother (Maternal) Diabetes Mother , age 54 of throat cancer Throat cancer Denies family history of Ovarian cancer Myocardial infarction Breast cancer Social History Smoking Status: Never smoker Second Hand Exposure: No; Do You Dip or Chew Tobacco: No; Hx Alcohol Use: No Hx Substance Use: No Preferred Language: Romanian Communication Ability: Effective Visual Impairment: No Limitations Hearing Ability: Normal Dosimetrist Required: No Beliefs That Will Affect Care: None marital status: / marital status details: lost August 2021 Current Living Situation: Alone current occupational status: retired current occupation: How many Children do You have: 2 other: Retired age 63-1/2. Feels Safe at Home: Yes Childhood Exposure to Second-Hand Smoke: No Diet: regular caffeine: No during the past year weight has: remained stable Dental Care, Regularly: Yes Physical Activity Frequency: Other Physical Activity Frequency Comment: limited d/t disability Seatbelt Use: always Sunscreen Use: Yes Assistive Devices: Prosthesis, Scooter/Electric Scooter and Walker Allergies Allergies Allergy/AdvReac Type Severity Reaction Status Date / Time ofloxacin [From Floxin] Allergy Intermediate itching Verified 08/26/23 14:04 Quinolones Allergy Intermediate Itchiness Verified 08/26/23 14:04 sulfamethoxazole Allergy Intermediate Rash Verified 08/26/23 14:04 trimethoprim Allergy Intermediate Rash Verified 08/26/23 14:04 Home Meds Home Medications Medication Instructions Recorded Confirmed latanoprost 0.005 % eye drops 1 drp OPB HS 12/27/17 08/26/23 (Xalatan) lancets (TotalTakeoutTouch UltraSoft #50 ea 12/12/18 08/26/23 Lancets) cholecalciferol (vitamin D3) 50 2,000 units PO QAM 11/10/19 08/26/23 mcg (2,000 unit) capsule (Vitamin D3) brimonidine 0.2 % eye drops 1 drp OPB BID 12/07/20 08/26/23 dorzolamide 2 % eye drops 1 drp OPB BID 12/07/20 08/26/23 timolol maleate 0.5 % eye gel 1 drp OPB BID 12/07/20 08/26/23 forming solution ascorbic acid (vitamin C) 500 mg 500 mg PO QAM 02/19/21 08/26/23 capsule ketoconazole 2 % shampoo 1 applic topical 3XWK 06/14/23 08/26/23 aspirin 81 mg tablet 81 mg PO DAILY 07/16/23 08/26/23 Previous Rx's Medication Instructions Recorded Wheelchair (Powered) #1 ea 11/22/19 blood sugar diagnostic (TotalTakeoutTouch #100 ea 01/31/20 Ultra Blue Test Strip) flash glucose scanning reader #1 ea 12/17/21 (FreeStyle Farhad 2 [place]) flash glucose sensor (FreeStyle #2 ea 08/06/22 Farhad 2 Sensor kit) calcitriol 0.5 mcg capsule 1 mcg (2 x 0.5 mcg) PO QAM #60 caps 01/25/23 albuterol sulfate 90 mcg/actuation 2 puff inhalation Q6H PRN 02/10/23 aerosol inhaler shortness of breath or wheezing #18 grams pen needle, diabetic 32 gauge x #400 ea 02/25/2332" (BD Ultra-Fine [place] Pen Needle) bumetanide 2 mg tablet 4 mg (2 x 2 mg) PO BID #120 tabs 04/09/23 insulin NPH isoph U-100 human 100 30 unit (0.3 mL) subcut BID #10 mL 04/19/23 unit/mL subcutaneous suspension (Novolin N NPH U-100 Insulin isophane) insulin regular human 100 unit/mL 1 sliding scale dose subcut 04/19/23 injection solution (Humulin R USEASDIRECTD #10 mL Regular U-100 Insulin) cyanocobalamin (vitamin B-12) 500 1,000 mcg (2 x 500 mcg) PO QAM #0 05/04/23 mcg tablet tabs ergocalciferol (vitamin D2) 1,250 50,000 unit PO WEEKLY #12 caps 05/27/23 mcg (50,000 unit) capsule isosorbide mononitrate 30 mg 30 mg PO QAM #30 tabs 06/04/23 tablet,extended release 24 hr losartan 50 mg tablet 50 mg PO QAM #30 tabs 06/04/23 metoprolol succinate 25 mg 25 mg PO QAM #30 tabs 06/04/23 tablet,extended release 24 hr potassium chloride 20 mEq 10 meq (1/2 x 20 mEq) PO QAM #30 06/16/23 tablet,extended release(part/cryst) tabs sertraline 25 mg tablet 25 mg PO DAILY #30 tabs 06/20/23 metolazone 5 mg tablet 5 mg PO Q OTHER DAY #45 tabs 06/25/23 trazodone 50 mg tablet 50 mg PO HS #30 tabs 07/13/23 Wheelchair (Powered) (Power #1 ea 07/27/23 Wheelchair) atorvastatin 80 mg tablet (Lipitor) 80 mg PO QAM #90 tabs 08/11/23 ropinirole 1 mg tablet 3 mg (3 x 1 mg) PO HS #270 tabs 08/11/23 cephalexin 500 mg capsule 500 mg PO Q6H #40 caps 08/23/23 ondansetron 4 mg disintegrating 4 mg PO Q8H PRN nausea and 08/23/23 tablet vomiting #30 tabs Results & Data (ED) Vital Signs Vital Signs - 24 hr 08/26/23 14:41 Temperature 36.8 C Temperature Source Temporal Artery Scan Pulse Rate 62 Respiratory Rate 18 Respiratory Effort / Characteristics Non-Labored Spontaneous Respiratory Depth Normal Blood Pressure 153/59 H Blood Pressure Mean 90 Blood Pressure Position Sitting Pulse Oximetry 95 Oxygen Delivery Method Room Air Sepsis Recent Fever Within 48 Hours No Sepsis New/Unexplained Change in Mental Status No Sepsis Action Taken by Nursing No Action Required Laboratory Data 08/26/23 15:06 08/26/23 15:06 Lab Results 08/26/23 Range/Units 15:06 WBC 7.88 (4.8-10.8) K/ul RBC 3.44 L (4.70-6.10) M/uL Hgb 10.7 L (14.0-18.0) g/dl Hct 31.9 L (42.0-52.0) % MCV 92.7 (80.0-100.0) fL MCH 31.1 (25.0-34.0) pg MCHC 33.5 (32.0-36.0) g/dL RDW Std Deviation 48.1 H (36.4-46.3) fL RDW Coeff of Jose 14.2 (11.5-14.5) % Plt Count 156 (130-400) K/uL MPV 13.1 H (9.4-12.4) fL Immature Gran % (Auto) 0.3 % Neut % (Auto) 84.3 % Lymph % (Auto) 7.1 % [place] % (Auto) 6.0 % Eos % (Auto) 1.8 % Baso % (Auto) 0.5 % Neut # (Auto) 6.65 H (1.40-6.50) K/uL Lymph # (Auto) 0.56 L (1.20-3.40) K/uL [place] # (Auto) 0.47 (0.11-0.59) K/uL Eos # (Auto) 0.14 (0.00-0.50) K/uL Baso # (Auto) 0.04 (0.00-0.20) K/uL Immature Gran # (Auto) 0.02 (0.01-0.20) K/uL Sodium 137 (136-145) mmol/L Potassium 3.4 L (3.5-5.1) mmol/L Chloride 100 (98-107) mmol/L Carbon Dioxide 25 (21-32) mmol/L Anion Gap 12 H (3-11) BUN 96 H (6-23) mg/dl Creatinine 2.82 H (0.6-1.4) mg/dl Est Cr Clr Drug Dosing Not Reportable Est GFR ( Amer) 24.4 ml/min Est GFR (Non-Af Amer) 21.1 ml/min BUN/Creatinine Ratio 34.0 H (10-20) Glucose 177 H (70-99(Fasting)) mg/dl Lactate 1.5 (0.4-2.0) mmol/L Calcium 9.1 (8.6-10.3) mg/dl Magnesium 2.5 H (1.7-2.4) mg/dl Total Bilirubin 0.9 (0.2-1.0) mg/dl Direct Bilirubin 0.2 (0-0.2) mg/dl AST 28 (13-39) U/L ALT 23 (7-52) U/L Alkaline Phosphatase 74 (34-104) U/L Total Protein 7.2 (6.0-8.3) gm/dl Albumin 3.8 (3.4-5.0) gm/dl Procalcitonin 0.19 (0-0.5) ng/ml Administered Medications Discontinued Medications Sodium Chloride (Nss) 500 mls @ 999 mls/hr IV .Q31M ONE Stop: 08/26/23 16:01 Last Infusion: 08/26/23 16:50 Dose: Infused Documented By: Admin: 08/26/23 16:19 Dose: 999 mls/hr Documented By: ERMA Cefepime HCl (Maxipime) 2,000 mg in 20 mls @ 5 mls/min IV NOW STA; Protocol Stop: 08/26/23 17:32 Last Admin: 08/26/23 17:37 Dose: 5 mls/min Documented By: NEYMAR Morphine Sulfate (Morphine Sulfate 4 Mg/Ml 1 Ml Carp\\Vial) 4 mg IV NOW STA Stop: 08/26/23 15:31 Last Admin: 08/26/23 16:19 Dose: 4 mg Documented By: ERMA Ondansetron HCl (Ondansetron Inj 2 Mg/Ml 2 Ml Vial) 4 mg IV NOW STA Stop: 08/26/23 15:31 Last Admin: 08/26/23 16:19 Dose: 4 mg Documented By: ERMA Imaging Data Radiologist's Impression: Venous Doppler Study 08/26/23 14:46 RIGHT LOWER EXTREMITY VENOUS DOPPLER HISTORY: Right leg swelling. RLE Cellulitis COMPARISON STUDY: None. FINDINGS: There is normal compressibility, flow, and augmentation within the right lower extremity deep venous system. IMPRESSION: No DVT within the right lower extremity ACT 112: Negative or not required by law. Electronically signed by: Abilio Soto M.D. 08/26/2023 4:[address] 08/26/23 15:49 RIGHT TIBIA/FIBULA CT CT DOSE: 1140.11 mGy.cm HISTORY: Right lower leg swelling/cellulitis, eval for infection TECHNIQUE: Multiaxial CT images of the right tibia/fibula were performed and reformatted in the sagittal and coronal plane without the use of contrast. A dose lowering technique was utilized adhering to the principles of ALARA. COMPARISON: None. FINDINGS: No fracture or dislocation within the right tibia or fibula. No bony destructive changes to suggest an osteomyelitis. Chondrocalcinosis and mild to moderate degenerative changes seen within the right knee. Vascular calcifications are noted. Skin thickening and is diffuse subcutaneous edema seen throughout the right lower leg. No loculated fluid collections on this noncontrast study to suggest an abscess. No soft tissue gas identified. No radiopaque foreign bodies. Advanced fatty atrophy of the right lower leg musculature. IMPRESSION: 1. Diffuse skin thickening and subcutaneous edema within the right lower leg. This may represent a cellulitis. 2. No loculated fluid collections on this noncontrast study to suggest an abscess. 3. No underlying bony destruction to suggest an osteomyelitis. 4. Advanced fatty atrophy within the right lower leg musculature. ACT 112: Negative or not required by law. Electronically signed by: Abilio Soto M.D. 08/26/2023 5:04 PM Discharge Plan Visit Data Chief Complaint: Leg Injury/Pain Stated Complaint: RIGHT LEG INFECTION, CELLULITIS ED Provider: Anselmo Saravia Discharge Problem: Cellulitis Forms Stand Alone Forms: [employer] Prescriptions Prescriptions: No Action (DME) OneTouch Ultra Blue Test Strip Strip See Dose Instructions .ROUTE .MEDSUPPLY Qty: 100 5RF Rx Instructions: use 1 strip to check glucose 4 times daily dx: E10.42, E10.65, E10.319 (DME) FreeStyle Farhad 2 [place] Misc See Rx Instructions .ROUTE .MEDSUPPLY Qty: 1 0RF Rx Instructions: As directed ([facility] [place]) pen needle, diabetic [BD Ultra-Fine [place] Pen Needle] 32 gauge x 5/32" needle See Rx Instructions .Route Qty: 400 3RF Rx Instructions: Inject insulin four times daily bumetanide 2 mg tablet 4 mg PO BID Qty: 120 6RF metolazone 5 mg tablet 5 mg PO Q OTHER DAY Qty: 45 3RF trazodone 50 mg tablet 50 mg PO HS Qty: 30 5RF (DME) Power Wheelchair Device See Rx Instructions .Route Qty: 1 0RF Rx Instructions: Wheelchair repair atorvastatin [Lipitor] 80 mg tablet 80 mg PO QAM Qty: 90 1RF ropinirole 1 mg tablet 3 mg PO HS Qty: 270 1RF (DME) lancets [OneTouch UltraSoft Lancets] [facility] Dose Instructions .ROUTE .MEDSUPPLY Qty: 50 Rx Instructions: test 4 times dailiy ascorbic acid (vitamin C) 500 mg capsule 500 mg PO QAM (DME) Wheelchair (Powered) Device See Rx Instructions .ROUTE .MEDSUPPLY Qty: 1 0RF Rx Instructions: powered wheelchair as directed (DME) FreeStyle Farhad 2 Sensor Kit See Rx Instructions .ROUTE .MEDSUPPLY Qty: 2 5RF Rx Instructions: As directed. Dx: E10.319, E10.65, E10.42. Testing BS qid calcitriol 0.5 mcg capsule 1 mcg PO QAM Qty: 60 4RF albuterol sulfate 90 mcg/actuation HFA aerosol inhaler 2 puff inhalation Q6H PRN (Reason: shortness of breath or wheezing) Qty: 18 3RF ergocalciferol (vitamin D2) 1,250 mcg (50,000 unit) capsule 50,000 unit PO WEEKLY Qty: 12 0RF Rx Instructions: hasnt started yet sertraline 25 mg tablet 25 mg PO DAILY Qty: 30 5RF aspirin 81 mg tablet 81 mg PO DAILY ondansetron 4 mg tablet,disintegrating 4 mg PO Q8H PRN (Reason: nausea and vomiting) Qty: 30 5RF cephalexin 500 mg capsule 500 mg PO Q6H Qty: 40 0RF latanoprost [Xalatan] 0.005 % Drops 1 drp OPB HS cholecalciferol (vitamin D3) [Vitamin D3] 50 mcg (2,000 unit) capsule 2,000 units PO QAM brimonidine 0.2 % drops 1 drp OPB BID timolol maleate 0.5 % gel forming solution 1 drp OPB BID dorzolamide 2 % drops 1 drp OPB BID cyanocobalamin (vitamin B-12) 500 mcg Tablet 1,000 mcg PO QAM Qty: 0 0RF Rx Instructions: buy over the counter Novolin N NPH U-100 Insulin 100 unit/mL suspension 30 unit subcut BID Qty: 10 0RF Humulin R Regular U-100 Insuln 100 unit/mL solution 1 sliding scale dose subcut USEASDIRECTD Qty: 10 0RF metoprolol succinate 25 mg Tablet Extended Release 24 Hr 25 mg PO QAM Qty: 30 0RF isosorbide mononitrate 30 mg Tablet Extended Release 24 Hr 30 mg PO QAM Qty: 30 0RF losartan 50 mg Tablet 50 mg PO QAM Qty: 30 0RF ketoconazole 2 % shampoo 1 applic topical 3XWK Rx Instructions: MON, WED, FRI. apply to scalp, lather, rinse - 3 days/week. potassium chloride 20 mEq Tablet,Er Particles/Crystals 10 meq PO QAM Qty: 30 0RF Referrals Referrals: Leah Wolf DO [Primary Care Provider] - Discharge Problem: Cellulitis Qualifiers: Site of cellulitis: extremity Site of cellulitis of extremity: lower extremity Laterality: right Qualified Code(s): L03.115 - Cellulitis of right lower limb
[2023-08-26 15:28] LABS: Basophils # (auto) 0.04 K/uL (0.00-0.20); Basophils % (auto) 0.5 %; Eosinophils # (auto) 0.14 K/uL (0.00-0.50); Eosinophils % (auto) 1.8 %; Hematocrit (blood only) 31.9 % (42.0-52.0); Hemoglobin 10.7 g/dl (14.0-18.0); Immature Granulocytes # (auto) 0.02 K/uL (0.01-0.20); Immature Granulocytes % (auto) 0.3 %; Lymphocytes # (auto) 0.56 K/uL (1.20-3.40); Lymphocytes % (auto) 7.1 %; Mean Corpuscular Hemoglobin 31.1 pg (25.0-34.0); Mean Corpuscular Hgb Conc 33.5 g/dL (32.0-36.0); Mean Corpuscular Volume 92.7 fL (80.0-100.0); Mean Platelet Volume 13.1 fL (9.4-12.4); Monocytes # (auto) 0.47 K/uL (0.11-0.59); Neutrophils # (auto) 6.65 K/uL (1.40-6.50); Neutrophils % (auto) 84.3 %; Platelet Count 156 K/uL (130-400); RDW Coefficient of Variation 14.2 % (11.5-14.5); RDW Standard Deviation 48.1 fL (36.4-46.3); Red Blood Count 3.44 M/uL (4.70-6.10); White Blood Count 7.88 K/ul (4.8-10.8)
[2023-08-26 15:42] LABS: Alanine Aminotransferase 23 U/L (7-52); Albumin Level 3.8 gm/dl (3.4-5.0); Alkaline Phosphatase 74 U/L (34-104); Anion Gap 12 (3-11); Aspartate Aminotransferase 28 U/L (13-39); Bilirubin Direct 0.2 mg/dl (0-0.2); Bilirubin,Total 0.9 mg/dl (0.2-1.0); Blood Urea Nitrogen 96 mg/dl (6-23); Calcium 9.1 mg/dl (8.6-10.3); Carbon Dioxide 25 mmol/L (21-32); Chloride 100 mmol/L (98-107); Est GFR (African American) 24.4 ml/min; Est GFR (Non-African American) 21.1 ml/min; Glucose 177 mg/dl (70-99(Fasting)); Magnesium 2.5 mg/dl (1.7-2.4); Potassium 3.4 mmol/L (3.5-5.1); Sodium 137 mmol/L (136-145); Total Protein 7.2 gm/dl (6.0-8.3)
[2023-08-26] MEDS: ONDANSETRON INJ 2 MG/ML 2 ML VIAL IV STA (16:19)
[2023-08-26] MEDS: SODIUM CHLORIDE 0.9% 500 ML IV ONE (16:19)
[2023-08-26] MEDS: MoRPHine SULFATE 4 MG/ML 1 ML CARP\\VIAL IV STA (16:19)
--- NOTE | 2023-08-26 16:20 | Ultrasound Report ---
RIGHT LOWER EXTREMITY VENOUS DOPPLER HISTORY: Right leg swelling. RLE Cellulitis COMPARISON STUDY: None. FINDINGS: There is normal compressibility, flow, and augmentation within the right lower extremity de ep venous system. IMPRESSION: No DVT within the right lower extremity ACT 112: Negative or not required by law. Electronically signed by: Abilio Soto M.D. 08/26/2023 4:19 PM
--- NOTE | 2023-08-26 17:06 | CT Scan Report ---
RIGHT TIBIA/FIBULA CT CT DOSE: 1140.11 mGy.cm HISTORY: Right lower leg swelling/cellulitis, eval for infection TECHNIQUE: Multiaxial CT images of the right tibia/fibula were performed and reformatted in the sagit [place] and coronal plane without the use of contrast. A dose lowering technique was utilized adhering t o the principles of ALARA. COMPARISON: None. FINDINGS: No fracture or dislocation within the right tibia or fibula. No bony destructive changes to suggest an osteomyelitis. Chondrocalcinosis and mild to moderate degenerative changes seen within th e right knee. Vascular calcifications are noted. Skin thickening and is diffuse subcutaneous edema se en throughout the right lower leg. No loculated fluid collections on this noncontrast study to sugges t an abscess. No soft tissue gas identified. No radiopaque foreign bodies. Advanced fatty atrophy of the right lower leg musculature. IMPRESSION: 1. Diffuse skin thickening and subcutaneous edema within the right lower leg. This may represent a ce llulitis. 2. No loculated fluid collections on this noncontrast study to suggest an abscess. 3. No underlying bony destruction to suggest an osteomyelitis. 4. Advanced fatty atrophy within the right lower leg musculature. ACT 112: Negative or not required by law. Electronically signed by: Abilio Soto M.D. 08/26/2023 5:04 PM
[2023-08-26] MEDS: CEFEPIME 2,000 MG/20 ML VIAL IV STA (17:37)
[2023-08-26] MEDS ORDERED: VANCOMYCIN HCL 2,250 MG in SODIUM CHLORIDE 0.9% 500 ML IV ONE (17:39)
[2023-08-26] MEDS ORDERED: VANCOMYCIN CONSULT ACTIVE PRN (17:39)
--- NOTE | 2023-08-26 17:57 | History & Physical Report ---
Date of Service August 26, 2023 Assessment & Plan (1) Cellulitis of right lower extremity: Plan: -Admit to med/tele -Currently stable and non-toxic appearing -Was sent to the ED from the Nephrology clinic due to failed outpatient treatment of RLE cellulitis -Was started on Keflex by his Cardiology PA on 08/22, but infection progressed -Right LE venous doppler is negative for DVT -CT of the tibia/fibula shows findings consistent with cellulitis, negative for signs of abscess/fluid collection -Given a dose of Cefepime and ordered a dose of Vancomycin in the ED >Held Vancomycin due to his renal function -Will continue with Cefepime and Daptomycin for now -Pain control with tylenol and dilaudid (due to renal function) -Follow blood cultures obtained in the ED -Wound care nurse consult placed -SQ Heparin for DVT PPX -HH/DMII diet with 2gm sodium and 1800 mL restrictions -AM CBC, CMP, mag, PT/INR (2) Generalized weakness: Plan: -Likely multifactorial including his chronic comorbidities, poor conditioning at baseline and current infection -Patient would likely benefit from rehab or home health on discharge -PT/OT consults placed -Fall/aspiration precuations (3) Abrasion of multiple sites of right lower extremity: Plan: -See cellulitis of RLE -Wound care nurse consult placed (4) Chronic combined systolic and diastolic heart failure: Plan: -Appears near euvolemic on exam -Noted to have some atelectasis and possible crackles on auscultation -Will obtain CXR now -Renal function is near baseline -S/P 500 mL NSS in the ED -Will hold further IV fluids for now -Will plan to resume his home diuretics tomorrow am -Monitor volume status closely moving forward (5) Chronic kidney disease, stage 4 (severe): Plan: -Renal function currently at baseline -Follows with [facility] [place] [facility] -Has mature fistula in the LUE -Avoid nephrotoxic agents -Monitor daily renal function (6) Hypokalemia: Plan: -3.4 in the ED -Mag is 2.5 -Will give 20 meq PO KCL on admission but will be cautious with his renal function -Monitor on tele -Monitor am electrolytes (7) CAD, multiple vessel: Plan: -Denies recent chest pain -Continue aspirin -Hold statin while on Daptomycin for cellulitis (8) Diabetic peripheral 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: Plan: -Noted to be hypoglycemic with BSG in the 60's at the time of exam -Patient had not had anything to eat most of the day while in the ED and had his home NPH this am -Provided apple juice and started hypoglycemia protocol -Will initially hold basal insulin on admission to prevent further hypoglycemia overnight -Monitor BSG ACHS once stable, goal is 110-160 -CF 50 and CR 15 for now -Pharmacy glycemic consult placed (9) Hypertension: Plan: -Stable -Continue Losartan, metoprolol and diuretics Plan The patient was discussed with Dr. Ware at the time of the admission History of Present Illness Chief Complaint: RLE Cellulitis, failed outpatient treatment Primary Care Provider: DO Dayton Oneill is a 72 year old male with a PMH significant for stage 4 CKD with Nephrotic syndrome, DMI, Cardiomyopathy, [place] 4 [place] [facility] [place] ZURITA [place] LAD, SVG to OM and sequential graft to diagonal, SVG to RCA PDA), HFrEF(Mildly reduced LVEF, grade II diastolic dysfunction), S/P left BKA, previous CVA who presented to the [facility] ED on 08/26/23 due to concerns for RLE cellulitis and failed outpatient treatment. The patient remained stable in the ED. Labs were significant for a Cr of 2.82 (baseline is 2.5-2.8), BUN of 96, AG of 12 with bicarb WNL, potassium of 3.4, mag of 2.5, and procal WNL. Venous doppler of the RLE was negative for DVT. CT of the right tib/fib was read as "1. Diffuse skin thickening and subcutaneous edema within the right lower leg. This may represent a cellulitis. 2. No loculated fluid collections on this noncontrast study to suggest an abscess. 3. No underlying bony destruction to suggest an osteomyelitis. 4. Advanced fatty atrophy within the right lower leg musculature.". Prior to admission the patient was given a dose of cefepime, 500 mL NSS, 4 mg IV morphine, 4mg IV zofran, and was ordered a dose of Vancomycin which was held by the admission team. At the time of the exam the patient was sitting in bed in no acute distress with his grandson bedside. The patient states that he was trying to get into his truck on 08/22/23 when he slipped and fell onto his driveway. He was unable to get himself up for approximately 2 hours, he sustained the RLE injuries during this time. He did not hit his head or lose consciousness. He denies other injuries during the fall. He called EMS who helped him up and wanted to bring him to the ED for evaluation but he declined. He was seen in the Cardiology Clinic on 08/22 and was prescribed a 10 day course of Keflex for the RLE. He confirms that he was taking the Keflex as prescribed but his RLE continued to become progressively more red, swollen, and painful. He feels generally weak at this time but denies other complaints such as fever, chills, chest pain, SOB, abd pain, nausea, vomiting, diarrhea, dysuria, hematuria, melena. He is a full code and his son is his POA. Please refer to Dr. Ware's attestation for any changes to the treatment plan Allergies Allergy/AdvReac Type Severity Reaction Status Date / Time ofloxacin [From Floxin] Allergy Intermediate itching Verified 08/26/23 14:04 Quinolones Allergy Intermediate Itchiness Verified 08/26/23 14:04 sulfamethoxazole Allergy Intermediate Rash Verified 08/26/23 14:04 trimethoprim Allergy Intermediate Rash Verified 08/26/23 14:04 Home Medications Medication Instructions Recorded Confirmed Type latanoprost 0.005 % eye drops 1 drp OPB HS 12/27/17 08/26/23 History (Xalatan) lancets (UlmartTouch UltraSoft #50 ea 12/12/18 08/26/23 History Lancets) cholecalciferol (vitamin D3) 50 2,000 units PO QAM 11/10/19 08/26/23 History mcg (2,000 unit) capsule (Vitamin D3) Wheelchair (Powered) #1 ea 11/22/19 08/26/23 Rx blood sugar diagnostic (UlmartTouch #100 ea 01/31/20 08/26/23 Rx Ultra Blue Test Strip) brimonidine 0.2 % eye drops 1 drp OPB BID 12/07/20 08/26/23 History dorzolamide 2 % eye drops 1 drp OPB BID 12/07/20 08/26/23 History timolol maleate 0.5 % eye gel 1 drp OPB BID 12/07/20 08/26/23 History forming solution ascorbic acid (vitamin C) 500 mg 500 mg PO QAM 02/19/21 08/26/23 History capsule flash glucose scanning reader #1 ea 12/17/21 08/26/23 Rx (FreeStyle Farhad 2 [place]) flash glucose sensor (FreeStyle #2 ea 08/06/22 08/26/23 Rx Farhad 2 Sensor kit) calcitriol 0.5 mcg capsule 1 mcg (2 x 0.5 mcg) PO QAM #60 caps 01/25/23 08/26/23 Rx albuterol sulfate 90 mcg/actuation 2 puff inhalation Q6H PRN 02/10/23 08/26/23 Rx aerosol inhaler shortness of breath or wheezing #18 grams pen needle, diabetic 32 gauge x #400 ea 02/25/23 08/26/23 Rx 5/32" (BD Ultra-Fine [place] Pen Needle) bumetanide 2 mg tablet 4 mg (2 x 2 mg) PO BID #120 tabs 04/09/23 08/26/23 Rx insulin NPH isoph U-100 human 100 30 unit (0.3 mL) subcut BID #10 mL 04/19/23 08/26/23 Rx unit/mL subcutaneous suspension (Novolin N NPH U-100 Insulin isophane) insulin regular human 100 unit/mL 1 sliding scale dose subcut 04/19/23 08/26/23 Rx injection solution (Humulin R USEASDIRECTD #10 mL Regular U-100 Insulin) cyanocobalamin (vitamin B-12) 500 1,000 mcg (2 x 500 mcg) PO QAM #0 05/04/23 08/26/23 Rx mcg tablet tabs ergocalciferol (vitamin D2) 1,250 50,000 unit PO WEEKLY #12 caps 05/27/23 08/26/23 Rx mcg (50,000 unit) capsule isosorbide mononitrate 30 mg 30 mg PO QAM #30 tabs 06/04/23 08/26/23 Rx tablet,extended release 24 hr losartan 50 mg tablet 50 mg PO QAM #30 tabs 06/04/23 08/26/23 Rx metoprolol succinate 25 mg 25 mg PO QAM #30 tabs 06/04/23 08/26/23 Rx tablet,extended release 24 hr ketoconazole 2 % shampoo 1 applic topical 3XWK 06/14/23 08/26/23 History potassium chloride 20 mEq 10 meq (1/2 x 20 mEq) PO QAM #30 06/16/23 08/26/23 Rx tablet,extended release(part/cryst) tabs sertraline 25 mg tablet 25 mg PO DAILY #30 tabs 06/20/23 08/26/23 Rx metolazone 5 mg tablet 5 mg PO Q OTHER DAY #45 tabs 06/25/23 08/26/23 Rx trazodone 50 mg tablet 50 mg PO HS #30 tabs 07/13/23 08/26/23 Rx aspirin 81 mg tablet 81 mg PO DAILY 07/16/23 08/26/23 History Wheelchair (Powered) (Power #1 ea 07/27/23 08/26/23 Rx Wheelchair) atorvastatin 80 mg tablet (Lipitor) 80 mg PO QAM #90 tabs 08/11/23 08/26/23 Rx ropinirole 1 mg tablet 3 mg (3 x 1 mg) PO HS #270 tabs 08/11/23 08/26/23 Rx cephalexin 500 mg capsule 500 mg PO Q6H #40 caps 08/23/23 08/26/23 Rx ondansetron 4 mg disintegrating 4 mg PO Q8H PRN nausea and 08/23/23 08/26/23 Rx tablet vomiting #30 tabs Past Med/Surg History Problem List (Updated 08/26/23 @ 18:42 by Mono Escobar PA-C) Hypokalemia Generalized weakness Cellulitis of right lower extremity Cellulitis (Acute) Chronic kidney disease, stage 4 (severe) Nausea Abrasion of multiple sites of right lower extremity Chronic combined systolic and diastolic heart failure Hypoxia (Acute) Cardiomyopathy Chronic seborrheic dermatitis Status post below knee amputation of left lower extremity Depression Generalized pruritus Grief History of colon polyps Impotence, organic Vitamin D deficiency Tubular adenoma of colon History of CVA (cerebrovascular accident) PT DENIES Glaucoma Peripheral positional vertigo Keloid scar of skin (Acute) Lower extremity edema (Chronic) Insomnia Anemia of chronic disease Nephrotic syndrome Diabetic nephropathy CAD, multiple vessel s/p CABG x4 (2011) Diabetic peripheral 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 Diverticulosis hx Dyslipidemia Restless leg syndrome Mild obstructive sleep apnea "Mild" > no device 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 DDD (degenerative disc disease), lumbar Medical History Type 2 diabetes mellitus Ventricular bigeminy 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, with long-term current use of insulin (HFpEF) heart failure with preserved ejection fraction Acute kidney injury superimposed on chronic kidney disease Pressure ulcer of BKA stump, stage 3 Influenza A virus subtype H1 2009 pandemic strain present Slow to wake up after anesthesia Wound of lower extremity Diabetes, type I Hypertension GERD (gastroesophageal reflux disease) History of TIA (transient ischemic attack) Surgical History Status post below knee amputation of left lower extremity S/P arteriovenous (AV) fistula creation History of esophagogastroduodenoscopy (EGD) History of colonoscopy S/P lumbar laminectomy S/P foot surgery S/P eye surgery S/P CABG x 4 History of lumbar discectomy History of tonsillectomy Family History Father , age 78 with prostate cancer Colorectal cancer Cardiovascular disease Diabetes Prostate cancer Grandmother (Maternal) Diabetes Mother , age 54 of throat cancer Throat cancer Denies family history of Ovarian cancer Myocardial infarction Breast cancer Social History Smoking Status: Never smoker Second Hand Exposure: No; Do You Dip or Chew Tobacco: No; Hx Alcohol Use: No Hx Substance Use: No Preferred Language: Ukrainian Communication Ability: Effective Visual Impairment: No Limitations Hearing Ability: Normal 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 Feels Safe at Home: Yes Childhood Exposure to Second-Hand Smoke: No Diet: regular caffeine: No during the past year weight has: remained stable Dental Care, Regularly: Yes Physical Activity Frequency: Other Physical Activity Frequency Comment: limited d/t disability Seatbelt Use: always Sunscreen Use: Yes Assistive Devices: Prosthesis, Scooter/Electric Scooter and Walker Physical Exam 2 Physical Exam: Physical Exam: General: In no acute distress, stated age, chronically ill appearing, poor hygiene HEENT: Normocephalic, atraumatic, no scleral icterus, pupils around round, symmetrical, and reactive to light, dry mucus membranes, trachea midline, no thyromegaly Chest/Pulm: No respiratory distress, symmetrical chest expansion, atelectasis and crackles noted in the BL lower lung sterling, otherwise CTA Cardiac: RRR, no murmurs noted Abdomen: Negative for ascites and bruising, normoactive bowel sounds, soft, non-tender to palpation throughout Musculoskeletal: S/P left BKA, no acute trauma on the head, neck, thoracic/lumbar spine, chest BL upper extremities, and pelvis Extremities: Radial, dorsalis pedis, and posterior tibial pulses are intact and symmetrical, significant swelling and erythema of the RLE Skin: See pictures below Neuro: Alert and oriented to person, place, month, year, and president, no focal defects, intact sensation and motor function in the RLE Psych: No acute distress, calm and cooperative during the exam Results & Data Results & Data Vital Signs (Past 12 Hours) Vital Signs Temp Pulse Resp BP Pulse Ox O2 Del Method 08/26/23 14:41 36.8 C 62 18 153/59 H 95 Room Air Laboratory Results Abnormal lab results 08/26/23 Range/Units 15:06 RBC 3.44 L (4.70-6.10) M/uL Hgb 10.7 L (14.0-18.0) g/dl Hct 31.9 L (42.0-52.0) % RDW Std Deviation 48.1 H (36.4-46.3) fL MPV 13.1 H (9.4-12.4) fL Neut # (Auto) 6.65 H (1.40-6.50) K/uL Lymph # (Auto) 0.56 L (1.20-3.40) K/uL Potassium 3.4 L (3.5-5.1) mmol/L Anion Gap 12 H (3-11) BUN 96 H (6-23) mg/dl Creatinine 2.82 H (0.6-1.4) mg/dl BUN/Creatinine Ratio 34.0 H (10-20) Glucose 177 H (70-99(Fasting)) mg/dl Magnesium 2.5 H (1.7-2.4) mg/dl Diagnostic Findings Venous Doppler Study 08/26/23 14:46 RIGHT LOWER EXTREMITY VENOUS DOPPLER HISTORY: Right leg swelling. RLE Cellulitis COMPARISON STUDY: None. FINDINGS: There is normal compressibility, flow, and augmentation within the right lower extremity deep venous system. IMPRESSION: No DVT within the right lower extremity ACT 112: Negative or not required by law. Electronically signed by: Abilio Soto M.D. 08/26/2023 4:[address] 08/26/23 15:49 RIGHT TIBIA/FIBULA CT CT DOSE: 1140.11 mGy.cm HISTORY: Right lower leg swelling/cellulitis, eval for infection TECHNIQUE: Multiaxial CT images of the right tibia/fibula were performed and reformatted in the sagittal and coronal plane without the use of contrast. A dose lowering technique was utilized adhering to the principles of ALARA. COMPARISON: None. FINDINGS: No fracture or dislocation within the right tibia or fibula. No bony destructive changes to suggest an osteomyelitis. Chondrocalcinosis and mild to moderate degenerative changes seen within the right knee. Vascular calcifications are noted. Skin thickening and is diffuse subcutaneous edema seen throughout the right lower leg. No loculated fluid collections on this noncontrast study to suggest an abscess. No soft tissue gas identified. No radiopaque foreign bodies. Advanced fatty atrophy of the right lower leg musculature. IMPRESSION: 1. Diffuse skin thickening and subcutaneous edema within the right lower leg. This may represent a cellulitis. 2. No loculated fluid collections on this noncontrast study to suggest an abscess. 3. No underlying bony destruction to suggest an osteomyelitis. 4. Advanced fatty atrophy within the right lower leg musculature. ACT 112: Negative or not required by law. Electronically signed by: Abilio Soto M.D. 08/26/2023 5:04 PM ECG Additional Comments: Sinus rhythm with 1st degree A-V block Right bundle branch block Anteroseptal infarct (cited on or before 14-JUN-2023) T wave abnormality, consider lateral ischemia Abnormal ECG When compared with ECG of 14-JUN-2023 14:10, QRS axis Shifted left Nonspecific T wave abnormality no longer evident in Inferior leads Code Status & VTE Plan Code Status Full code VTE Prophylaxis Plan VTE Prophylaxis will be ordered: Yes PG Care Time/CCT Total # of Minutes Spent Total Time Spent with Patient: Total time spent is greater than 50% in coordination of care (as documented) at patient's floor/unit and/or counseling patient: Coding [place] [address] INT INP/OBS CARE 3/75MIN Patient Type Established History Comprehensive Exam Comprehensive Medical Decision Making High Complexity Diagnoses Cellulitis of right lower extremity L03.115 Generalized weakness R53.1 Abrasion of multiple sites of right lower extremity, initial encounter S80.811A Encounter type: initial encounter Chronic combined systolic and diastolic heart failure I50.42 Chronic kidney disease, stage 4 (severe) N18.4 Hypokalemia E87.6 CAD, multiple vessel I25.10 Diabetic peripheral 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 E10.42 Primary hypertension I10 Hypertension type: primary hypertension (3) Abrasion of multiple sites of right lower extremity Encounter type: initial encounter Qualified Code(s): S80.811A - Abrasion, right lower leg, initial encounter (9) Hypertension Hypertension type: primary hypertension Qualified Code(s): I10 - Essential (primary) hypertension
[2023-08-26] MEDS ORDERED: DEXTROSE 50% 50 ML SYRINGE IV PRN (18:23)
[2023-08-26] MEDS ORDERED: GLUCAGON FOR INJ 1 MG VIAL SQ PRN (18:23)
[2023-08-26] MEDS ORDERED: CARBOHYDRATES FOR HYPOGLYCEMIA PO PRN (18:23)
[2023-08-26] MEDS ORDERED: GLUCOSE 10 TAB/TUBE PO PRN (18:23)
[2023-08-26] MEDS ORDERED: GLUCOSE 40% GEL 15 GM TUBE PO PRN (18:23)
[2023-08-26] MEDS: ACETAMINOPHEN 500 MG TAB PO STA (18:43)
[2023-08-26] MEDS: DAPTOmycin 350 MG in SYRINGE 0 ML IV SCH (18:44)
[2023-08-26] MEDS: POTASSIUM CHLORIDE CRTAB 20 MEQ TABCR PO STA (18:44)
--- NOTE | 2023-08-26 18:50 | XRay Report ---
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 Median sternotomy. Pulmonary vascular congestion with interstitial co arsening. Small pleural effusions with mild bibasilar densities. No pneumothorax. Bones appear grossl y intact. IMPRESSION: 1. Cardiomegaly with pulmonary edema. 2. Small pleural effusions with mild bibasilar opacities suggestive of atelectasis versus pneumonitis . ACT 112: Negative or not required by law. The above report was generated using voice recognition software. It may contain grammatical, syntax o r spelling errors. Electronically signed by: Loyd Buck M.D. 08/26/2023 6:48 PM
[2023-08-26] MEDS: BUMETANIDE 1 MG TAB PO ONE (19:53)
[2023-08-26] MEDS: INSULIN ASPART PER UNIT CHARGE SC SCH (21:40)
[2023-08-26 22:02] LABS: Appearance Urine Clear (Clear); Bacteria Urine Automated None Seen (None Seen); Bilirubin Urine Negative (Negative); Blood Urine Negative (Negative); Color Urine Yellow; Epithelial Cell Urine Auto 0-2 /hpf (0-2); Glucose Urine UA Negative (Negative); Ketones Urine Negative (Negative); Leukocyte Esterase Urine Negative (Negative); Nitrite Urine Negative (Negative); Protein Urine 2+ (Negative); RBC Urine Automated 0-2 /hpf (0-2); Specific Gravity Urine 1.012 (1.000-1.030); Urobilinogen Urine Negative (Negative); WBC Urine Automated 0-5 /hpf (0-5); pH Urine 5.5 (4.5-7.5)
[2023-08-27] MEDS: HEPARIN SOD 5,000 UNIT/0.5 ML VIAL SQ SCH (00:06)
[2023-08-27] MEDS: HYDROmorphone INJ 0.5 MG/0.5 ML SYR IV PRN (01:29)
[2023-08-27 04:44] LABS: Basophils # (auto) 0.04 K/uL (0.00-0.20); Basophils % (auto) 0.5 %; Eosinophils # (auto) 0.31 K/uL (0.00-0.50); Eosinophils % (auto) 3.9 %; Hemoglobin 10.7 g/dl (14.0-18.0); Immature Granulocytes # (auto) 0.03 K/uL (0.01-0.20); Immature Granulocytes % (auto) 0.4 %; Lymphocytes # (auto) 0.76 K/uL (1.20-3.40); Lymphocytes % (auto) 9.6 %; Mean Corpuscular Hgb Conc 33.4 g/dL (32.0-36.0); Mean Corpuscular Volume 92.8 fL (80.0-100.0); Mean Platelet Volume 12.9 fL (9.4-12.4); Monocytes # (auto) 0.71 K/uL (0.11-0.59); Neutrophils # (auto) 6.03 K/uL (1.40-6.50); Neutrophils % (auto) 76.6 %; Platelet Count 153 K/uL (130-400); RDW Coefficient of Variation 14.2 % (11.5-14.5); RDW Standard Deviation 47.7 fL (36.4-46.3); Red Blood Count 3.45 M/uL (4.70-6.10); White Blood Count 7.88 K/ul (4.8-10.8)
[2023-08-27 04:51] LABS: Albumin Globulin Ratio 1.1 (0.9-2); Albumin Level 3.5 gm/dl (3.4-5.0); BUN Creatinine Ratio 34.7 (10-20); Bilirubin,Total 0.6 mg/dl (0.2-1.0); Calcium 8.6 mg/dl (8.6-10.3); Creatinine Clr Calc Pharmacy 28.4 ml/min; Est GFR (Non-African American) 21.5 ml/min; Globulin 3.2 gm/dl (2.5-4.0); Magnesium 2.4 mg/dl (1.7-2.4); Potassium 3.5 mmol/L (3.5-5.1); Total Protein 6.7 gm/dl (6.0-8.3)
[2023-08-27 05:06] LABS: INR 1.2 (0.9-1.1); Prothrombin Time 12.8 Seconds (9.0-12.0)
[2023-08-27] MEDS ORDERED: PHARMACY GLYCEMIC MGMT CONSULT PRN (06:00)
[2023-08-27] MEDS: CEFEPIME 1,000 MG in SYRINGE 0 ML IV SCH (07:37)
[2023-08-27] MEDS: INSULIN HUMAN NPH SC SCH (09:24)
[2023-08-27] MEDS: CALCITRIOL 0.25 MCG CAPSULE PO SCH (09:57)
[2023-08-27] MEDS: ASPIRIN 81 MG ECTAB PO SCH (09:57)
[2023-08-27] MEDS: SERTRALINE HCL 50 MG TABLET PO SCH (09:57)
[2023-08-27] MEDS: ASCORBIC ACID 500 MG TAB PO SCH (09:57)
[2023-08-27] MEDS: ISOSORBIDE MONO EXTENDED REL 30 MG TABCR PO SCH (09:57)
[2023-08-27] MEDS: CHOLECALCIFEROL 125 MCG (5,000 UNITS) TAB PO SCH (09:57)
[2023-08-27] MEDS: POTASSIUM CHLORIDE 10 MEQ TABCR PO SCH (09:57)
[2023-08-27] MEDS: CYANOCOBALAMIN (B-12) 500 MCG TABLET PO SCH (09:57)
[2023-08-27] MEDS: METOPROLOL SUCC 25MG EXT REL TAB PO SCH (09:57)
[2023-08-27] MEDS: DORZOLAMIDE/TIMOLOL 22.3/6.8MG/ML 10 ML BTL OPB SCH (09:58)
[2023-08-27] MEDS: BRIMONIDINE TARTRATE-P 0.15% 5 ML BTL OPB SCH (09:58)
[2023-08-27] MEDS: metOLazone 5 MG TABLET PO SCH (09:59)
[2023-08-27] MEDS: BUMETANIDE 1 MG TAB PO SCH (09:59)
--- NOTE | 2023-08-27 10:21 | Electrocardiogram Report ---
Test Reason : Blood Pressure : / mmHG Vent. Rate : 066 BPM Atrial Rate : 066 BPM P-R Int : 230 ms QRS Dur : 134 ms QT Int : 484 ms P-R-T Axes : 069 255 098 degrees QTc Int : 507 ms Sinus rhythm with 1st degree A-V block Right bundle branch block T wave abnormality, consider lateral ischemia Abnormal ECG When compared with ECG of 14-JUN-2023 14:10, QRS axis Shifted left Nonspecific T wave abnormality no longer evident in Inferior leads Confirmed by Jose Francisco Medina ([id number]) on 08/27/2023 10:20:55 AM Referred By: Shakira Richardson Confirmed By:Jose Medina
--- NOTE | 2023-08-27 10:26 | Pharmacy Report ---
Pharmacy Glycemic Short Note 2 - Date of Service August 27, 2023 - Glycemic Short BSG Results (Last 24 hours): 08/26/23 08/26/23 08/26/23 15:06 18:52 19:23 Glucose 177 H POC Glucose 62 L* 97 08/26/23 08/26/23 08/27/23 20:30 21:27 04:23 Glucose 98 POC Glucose 144 H 185 H 08/27/23 08:16 Glucose POC Glucose 124 H OUTPATIENT ANTIDIABETIC REGIMEN: * ASSESSMENT: * PLAN FOR INPATIENT GLYCEMIC CONTROL: * Hold outpatient oral diabetes medications * Basal insulin * Lantus [] units SQ BID * Bolus insulin * NovoLog per scale ACHS or Q6hrs while NPO * Goal Range: Low [] mg/dL - High [] mg/dL * Correction Factor: [] mg/dL/unit * Nutritional / Prandial insulin per carb ratio of 1 unit per [] grams CHO consumed
--- NOTE | 2023-08-27 12:46 | Hospitalist Progress Note ---
Date of Service August 27, 2023 Assessment & Plan (1) Cellulitis of right lower extremity: Plan: Currently on cefepime and daptomycin, day 2. He failed outpatient cephalexin therapy. (2) Generalized weakness: Plan: Supportive care. OT and PT assessments. (3) Abrasion of multiple sites of right lower extremity: Plan: Probable source of underlying cellulitis. Wound care nurse consultation requested. (4) Chronic combined systolic and diastolic heart failure: Plan: No current exacerbation. Monitor intake and output. Continue current medical management. Home medications have been reordered (5) Chronic kidney disease, stage 4 (severe): Plan: Monitor intake and output. Serial labs. Has mature fistula in the LUE for impending hemodialysis (6) Hypokalemia: Plan: Mild on admission. Oral supplementation was given in the ED. Potassium 3.5 today, August 26. Will follow. (7) CAD, multiple vessel: Plan: Stable. Continue current medical management. Statin is on hold while on daptomycin (8) Diabetic peripheral 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: Plan: ADA diet. Sliding scale coverage. Continue current medical management. (9) Hypertension: Plan: Stable. Continue current medical management Plan To be determined. OT and PT assessments requested Admission and Anticipated Discharge Date Admission Date: August 26, 2023 Subjective Alert and oriented. Depressed affect however. He is now on cefepime and daptomycin for right lower extremity cellulitis. He failed outpatient cephalexin orally. Right lower extremity venous Doppler is negative for DVT. He is left BKA status. All of his home medications have been restarted. Wound care consultation is pending Review of Systems 2 Review of Systems: Constitutional-no fever or chills ENT-no blurred vision, no double vision, no epistaxis, no sore throat Respiratory-no cough, no wheezing, no shortness of breath Cardiac-no palpitations, no chest pain, no syncope GI-no nausea, vomiting, diarrhea, melena, hematochezia -no urinary retention, no urinary incontinence, no dysuria, no hematuria Musculoskeletal-no joint pain, no muscle tenderness Skin-no bruising, no rashes, no pruritus Neuro-no isolated weakness, no paresthesia Psych-depressed affect Physical Exam 2 Physical Exam: General-alert and oriented x3, no fever, no chills HEENT-head atraumatic and normocephalic, pupils equal and reactive to light, extraocular muscles intact Neck-no lymphadenopathy or thyromegaly, trachea midline Chest-clear to auscultation. No rales, wheezing or rhonchi Cardiac-regular rate and rhythm, normal S1 and S2 Abdomen-normal bowel sounds, no hepatosplenomegaly Extremities-left BKA status. Right lower extremity below the knee reveals erythema and superficial excoriations. 1+ edema is present Neuro-cranial nerves II through XII intact, motor and sensory function within normal limits, strength symmetrical, no focal deficits Psych-depressed affect Results & Data Results & Data Vital Signs (Past 12 Hours) Vital Signs Temp Pulse Pulse Resp BP BP Pulse Ox 08/27/23 11:30 36.4 C L 65 18 158/57 H 94 08/27/23 07:55 66 08/27/23 07:46 36.3 C L 63 18 174/80 H 97 08/27/23 07:30 08/27/23 06:00 62 14 170/85 H 100 08/27/23 04:00 63 24 97 08/27/23 04:00 61 18 186/75 H 98 08/27/23 02:00 63 16 168/82 H 98 O2 Del Method O2 Flow Rate 08/27/23 11:30 Room Air 08/27/23 07:55 08/27/23 07:46 Nasal Cannula 2 08/27/23 07:30 Nasal Cannula 3 08/27/23 06:00 Room Air 08/27/23 04:00 Nasal Cannula 2 08/27/23 04:00 Nasal Cannula 2 08/27/23 02:00 Nasal Cannula 2 Laboratory Results 08/27/23 04:23 08/27/23 04:23 PG Care Time/CCT Total # of Minutes Spent Total Time Spent with Patient: Total time spent is greater than 50% in coordination of care (as documented) at patient's floor/unit and/or counseling patient: Coding Level of Care Code 33744 SUB INP/OBS CARE 3/50MIN Diagnoses Cellulitis of right lower extremity L03.115 Generalized weakness R53.1 Abrasion of multiple sites of right lower extremity, initial encounter S80.811A Encounter type: initial encounter Chronic combined systolic and diastolic heart failure I50.42 Chronic kidney disease, stage 4 (severe) N18.4 Hypokalemia E87.6 CAD, multiple vessel I25.10 Diabetic peripheral 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 E10.42 Primary hypertension I10 Hypertension type: primary hypertension (3) Abrasion of multiple sites of right lower extremity Encounter type: initial encounter Qualified Code(s): S80.811A - Abrasion, right lower leg, initial encounter (9) Hypertension Hypertension type: primary hypertension Qualified Code(s): I10 - Essential (primary) hypertension
[2023-08-27] MEDS: rOPINIRole HCL 2 MG TABLET PO STA (15:01)
[2023-08-27] MEDS: MICONAZOLE NITRATE POWDER 85 GM EXT PRN (17:20)
[2023-08-27] MEDS: traZODone HCL 50 MG TAB PO SCH (21:54)
[2023-08-27] MEDS: LATANOPROST 0.005% OP SOLN 2.5 ML BTL OPB SCH (21:55)
[2023-08-27] MEDS: rOPINIRole HCL 1 MG TABLET PO SCH (21:55)
[2023-08-27] MEDS: ACETAMINOPHEN 325 MG TAB PO PRN (21:59)
[2023-08-28 06:28] LABS: Basophils # (auto) 0.04 K/uL (0.00-0.20); Basophils % (auto) 0.6 %; Eosinophils % (auto) 4.6 %; Hematocrit (blood only) 29.2 % (42.0-52.0); Hemoglobin 9.7 g/dl (14.0-18.0); Immature Granulocytes # (auto) 0.02 K/uL (0.01-0.20); Immature Granulocytes % (auto) 0.3 %; Lymphocytes # (auto) 0.61 K/uL (1.20-3.40); Lymphocytes % (auto) 9.4 %; Mean Corpuscular Hgb Conc 33.2 g/dL (32.0-36.0); Mean Corpuscular Volume 93.3 fL (80.0-100.0); Mean Platelet Volume 13.5 fL (9.4-12.4); Monocytes # (auto) 0.59 K/uL (0.11-0.59); Monocytes % (auto) 9.1 %; Neutrophils # (auto) 4.92 K/uL (1.40-6.50); Platelet Count 131 K/uL (130-400); RDW Coefficient of Variation 14.2 % (11.5-14.5); RDW Standard Deviation 48.4 fL (36.4-46.3); Red Blood Count 3.13 M/uL (4.70-6.10); White Blood Count 6.48 K/ul (4.8-10.8)
[2023-08-28 06:34] LABS: BUN Creatinine Ratio 32.8 (10-20); Calcium 8.5 mg/dl (8.6-10.3); Creatinine Clr Calc Pharmacy 21.5 ml/min; Est GFR (African American) 20.7 ml/min; Est GFR (Non-African American) 17.9 ml/min; Potassium 3.4 mmol/L (3.5-5.1)
[2023-08-28] MEDS: POTASSIUM CHLORIDE 10 MEQ TABCR PO ONE (08:34)
--- NOTE | 2023-08-28 10:23 | Hospitalist Progress Note ---
Date of Service August 28, 2023 Assessment & Plan (1) Cellulitis of right lower extremity: Plan: Currently on cefepime and daptomycin, day 3. He failed outpatient cephalexin therapy. (2) Generalized weakness: Plan: Supportive care. OT and PT assessments. (3) Abrasion of multiple sites of right lower extremity: Plan: Probable source of underlying cellulitis. Wound care nurse consultation requested. (4) Chronic combined systolic and diastolic heart failure: Plan: No current exacerbation. Monitor intake and output. Continue current medical management. Home medications have been reordered (5) Chronic kidney disease, stage 4 (severe): Plan: Monitor intake and output. Serial labs. Has mature fistula in the LUE for impending hemodialysis (6) Hypokalemia: Plan: Oral potassium supplementation uptitrated today, August 27. This will need to be decreased before discharge because he has stage IV chronic kidney disease. Serial labs. (7) CAD, multiple vessel: Plan: Stable. Continue current medical management. Statin is on hold while on daptomycin (8) Diabetic peripheral 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: Plan: ADA diet. Sliding scale coverage. Continue current medical management. (9) Hypertension: Plan: Stable. Continue current medical management (10) Constipation: Plan: MiraLAX and Colace ordered Plan To be determined. OT and PT assessments requested Admission and Anticipated Discharge Date Admission Date: August 26, 2023 Subjective Alert and oriented. He is complaining of constipation. MiraLAX and Colace have been ordered. Potassium replacement has been uptitrated but will need to be readjusted since he has chronic kidney disease stage IV and likely to develop hyperkalemia. He remains on cefepime and daptomycin, day 3, for the right lower extremity cellulitis. Creatinine is up slightly to 3.2 from 2.7 and will be followed daily. OT and PT assessments have been requested. Review of Systems 2 Review of Systems: Constitutional-no fever or chills ENT-no blurred vision, no double vision, no epistaxis, no sore throat Respiratory-no cough, no wheezing, no shortness of breath Cardiac-no palpitations, no chest pain, no syncope GI-no nausea, vomiting, diarrhea, melena, hematochezia. He does have constipation -no urinary retention, no urinary incontinence, no dysuria, no hematuria Musculoskeletal-no joint pain, no muscle tenderness Skin-no bruising, no rashes, no pruritus Neuro-no isolated weakness, no paresthesia Psych-depressed affect Physical Exam 2 Physical Exam: General-alert and oriented x3, no fever, no chills HEENT-head atraumatic and normocephalic, pupils equal and reactive to light, extraocular muscles intact Neck-no lymphadenopathy or thyromegaly, trachea midline Chest-clear to auscultation. No rales, wheezing or rhonchi Cardiac-regular rate and rhythm, normal S1 and S2 Abdomen-normal bowel sounds, no hepatosplenomegaly Extremities-left BKA status. Right lower extremity below the knee reveals erythema and superficial excoriations. 1+ edema is present Neuro-cranial nerves II through XII intact, motor and sensory function within normal limits, strength symmetrical, no focal deficits Psych-depressed affect Results & Data Results & Data Vital Signs (Past 12 Hours) Vital Signs Temp Pulse Pulse Resp BP Pulse Ox O2 Del Method 08/28/23 07:54 36.5 C 60 18 156/83 H 93 Room Air 08/28/23 07:19 58 L 08/28/23 03:12 36.3 C L 56 L 20 158/74 H 93 Room Air 08/28/23 02:20 Room Air 08/28/23 00:00 08/27/23 23:30 59 L 08/27/23 23:27 36.5 C 90 18 160/73 H 95 Room Air O2 Del Method 08/28/23 07:54 08/28/23 07:19 08/28/23 03:12 08/28/23 02:20 08/28/23 00:00 Room Air 08/27/23 23:30 08/27/23 23:27 Laboratory Results 08/28/23 05:34 08/28/23 05:34 PG Care Time/CCT Total # of Minutes Spent Total Time Spent with Patient: Total time spent is greater than 50% in coordination of care (as documented) at patient's floor/unit and/or counseling patient: Coding Level of Care Code 65590 SUB INP/OBS CARE 3/50MIN Diagnoses Cellulitis of right lower extremity L03.115 Generalized weakness R53.1 Abrasion of multiple sites of right lower extremity, initial encounter S80.811A Encounter type: initial encounter Chronic combined systolic and diastolic heart failure I50.42 Chronic kidney disease, stage 4 (severe) N18.4 Hypokalemia E87.6 CAD, multiple vessel I25.10 Diabetic peripheral 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 E10.42 Primary hypertension I10 Hypertension type: primary hypertension Constipation K59.00 (3) Abrasion of multiple sites of right lower extremity Encounter type: initial encounter Qualified Code(s): S80.811A - Abrasion, right lower leg, initial encounter (9) Hypertension Hypertension type: primary hypertension Qualified Code(s): I10 - Essential (primary) hypertension
[2023-08-28] MEDS: DOCUSATE SODIUM 100 MG CAP PO SCH (10:56)
[2023-08-28] MEDS: POLYETHYLENE (MIRALAX) 17 GM PACK PO SCH (10:56)
[2023-08-28] MEDS: POTASSIUM CHLORIDE CRTAB 20 MEQ TABCR PO SCH (20:44)
[2023-08-29 05:54] LABS: Basophils # (auto) 0.03 K/uL (0.00-0.20); Basophils % (auto) 0.5 %; Eosinophils # (auto) 0.26 K/uL (0.00-0.50); Eosinophils % (auto) 4.1 %; Hematocrit (blood only) 29.5 % (42.0-52.0); Immature Granulocytes # (auto) 0.04 K/uL (0.01-0.20); Immature Granulocytes % (auto) 0.6 %; Lymphocytes # (auto) 0.68 K/uL (1.20-3.40); Lymphocytes % (auto) 10.8 %; Mean Corpuscular Hemoglobin 31.2 pg (25.0-34.0); Mean Corpuscular Hgb Conc 33.9 g/dL (32.0-36.0); Mean Corpuscular Volume 91.9 fL (80.0-100.0); Mean Platelet Volume 12.9 fL (9.4-12.4); Monocytes # (auto) 0.57 K/uL (0.11-0.59); Neutrophils # (auto) 4.74 K/uL (1.40-6.50); Platelet Count 143 K/uL (130-400); RDW Standard Deviation 47.2 fL (36.4-46.3); Red Blood Count 3.21 M/uL (4.70-6.10); White Blood Count 6.32 K/ul (4.8-10.8)
[2023-08-29 06:08] LABS: BUN Creatinine Ratio 34.9 (10-20); Calcium 9.2 mg/dl (8.6-10.3); Creatinine Clr Calc Pharmacy 21.2 ml/min; Est GFR (African American) 20.4 ml/min; Est GFR (Non-African American) 17.6 ml/min; Potassium 3.4 mmol/L (3.5-5.1)
[2023-08-29] MEDS: hydrALAZINE 10 MG TAB PO SCH (09:46)
--- NOTE | 2023-08-29 14:44 | Hospitalist Progress Note ---
Date of Service August 29, 2023 Assessment & Plan (1) Cellulitis of right lower extremity: Plan: Currently on cefepime and daptomycin, day 4. He failed outpatient cephalexin therapy. (2) Generalized weakness: Plan: Supportive care. Continue OT and PT while hospitalized (3) Abrasion of multiple sites of right lower extremity: Plan: Probable source of underlying cellulitis. Wound care nurse consultation requested. (4) Chronic combined systolic and diastolic heart failure: Plan: No current exacerbation. Monitor intake and output. Continue current medical management. Home medications have been reordered (5) Chronic kidney disease, stage 4 (severe): Plan: Monitor intake and output. Serial labs. Has mature fistula in the LUE for impending hemodialysis (6) Hypokalemia: Plan: Oral potassium supplementation uptitrated on August 27. Potassium remains slightly low at 3.4. This will need to be decreased before discharge because he has stage IV chronic kidney disease. Serial labs. (7) CAD, multiple vessel: Plan: Stable. Continue current medical management. Statin is on hold while on daptomycin (8) Diabetic peripheral 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: Plan: ADA diet. Sliding scale coverage. Continue current medical management. (9) Hypertension: Plan: Stable. Continue current medical management (10) Constipation: Plan: MiraLAX and Colace ordered Plan OT and PT both recommend eventual return to prior living arrangements. Hopefully he can go home within the next 2 to 3 days on an oral antibiotic Admission and Anticipated Discharge Date Admission Date: August 26, 2023 Subjective Alert and oriented. No distress. Hydralazine added today, August 28, for better blood pressure control. Creatinine stable at 3.2. Potassium remains slightly low at 3.4 but his oral potassium was increased yesterday, August 27. Review of Systems 2 Review of Systems: Constitutional-no fever or chills ENT-no blurred vision, no double vision, no epistaxis, no sore throat Respiratory-no cough, no wheezing, no shortness of breath Cardiac-no palpitations, no chest pain, no syncope GI-no nausea, vomiting, diarrhea, melena, hematochezia. He does have constipation -no urinary retention, no urinary incontinence, no dysuria, no hematuria Musculoskeletal-no joint pain, no muscle tenderness Skin-no bruising, no rashes, no pruritus Neuro-no isolated weakness, no paresthesia Psych-depressed affect Physical Exam 2 Physical Exam: General-alert and oriented x3, no fever, no chills HEENT-head atraumatic and normocephalic, pupils equal and reactive to light, extraocular muscles intact Neck-no lymphadenopathy or thyromegaly, trachea midline Chest-clear to auscultation. No rales, wheezing or rhonchi Cardiac-regular rate and rhythm, normal S1 and S2 Abdomen-normal bowel sounds, no hepatosplenomegaly Extremities-left BKA status. Right lower extremity below the knee reveals erythema and superficial excoriations. 1+ edema is present Neuro-cranial nerves II through XII intact, motor and sensory function within normal limits, strength symmetrical, no focal deficits Psych-depressed affect Results & Data Results & Data Vital Signs (Past 12 Hours) Vital Signs Temp Pulse Pulse Resp BP Pulse Ox O2 Del Method 08/29/23 11:54 36.6 C 53 L 16 166/69 H 93 Room Air 08/29/23 08:30 Room Air 08/29/23 07:37 36.5 C 54 L 16 170/69 H 93 Room Air 08/29/23 07:16 55 L 08/29/23 03:17 36.4 C L 53 L 18 166/72 H 95 Room Air Laboratory Results 08/29/23 05:17 08/29/23 05:17 PG Care Time/CCT Total # of Minutes Spent Total Time Spent with Patient: Total time spent is greater than 50% in coordination of care (as documented) at patient's floor/unit and/or counseling patient: Coding Level of Care Code 95835 SUB INP/OBS CARE 3/50MIN Diagnoses Cellulitis of right lower extremity L03.115 Generalized weakness R53.1 Abrasion of multiple sites of right lower extremity, initial encounter S80.811A Encounter type: initial encounter Chronic combined systolic and diastolic heart failure I50.42 Chronic kidney disease, stage 4 (severe) N18.4 Hypokalemia E87.6 CAD, multiple vessel I25.10 Diabetic peripheral 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 E10.42 Primary hypertension I10 Hypertension type: primary hypertension Constipation K59.00 (3) Abrasion of multiple sites of right lower extremity Encounter type: initial encounter Qualified Code(s): S80.811A - Abrasion, right lower leg, initial encounter (9) Hypertension Hypertension type: primary hypertension Qualified Code(s): I10 - Essential (primary) hypertension
[2023-08-30 07:08] LABS: Basophils # (auto) 0.03 K/uL (0.00-0.20); Basophils % (auto) 0.5 %; Eosinophils # (auto) 0.18 K/uL (0.00-0.50); Eosinophils % (auto) 2.9 %; Hematocrit (blood only) 30.1 % (42.0-52.0); Hemoglobin 10.3 g/dl (14.0-18.0); Immature Granulocytes # (auto) 0.03 K/uL (0.01-0.20); Immature Granulocytes % (auto) 0.5 %; Lymphocytes # (auto) 0.59 K/uL (1.20-3.40); Lymphocytes % (auto) 9.6 %; Mean Corpuscular Hemoglobin 31.3 pg (25.0-34.0); Mean Corpuscular Hgb Conc 34.2 g/dL (32.0-36.0); Mean Corpuscular Volume 91.5 fL (80.0-100.0); Mean Platelet Volume 12.9 fL (9.4-12.4); Monocytes # (auto) 0.58 K/uL (0.11-0.59); Monocytes % (auto) 9.4 %; Neutrophils # (auto) 4.73 K/uL (1.40-6.50); Neutrophils % (auto) 77.1 %; Platelet Count 120 K/uL (130-400); RDW Coefficient of Variation 14.2 % (11.5-14.5); RDW Standard Deviation 46.8 fL (36.4-46.3); Red Blood Count 3.29 M/uL (4.70-6.10); White Blood Count 6.14 K/ul (4.8-10.8)
[2023-08-30 07:35] LABS: BUN Creatinine Ratio 31.6 (10-20); Calcium 9.3 mg/dl (8.6-10.3); Creatinine Clr Calc Pharmacy 21.5 ml/min; Est GFR (African American) 18.1 ml/min; Est GFR (Non-African American) 15.6 ml/min; Potassium 3.6 mmol/L (3.5-5.1)
[2023-08-30] MEDS: hydrALAZINE HCL 25 MG TAB PO SCH (13:40)
--- NOTE | 2023-08-30 13:49 | Nephrology Consultation ---
Date of Consultation August 30, 2023 Assessment & Plan (1) Acute kidney injury: (2) Anemia of chronic disease: (3) Chronic kidney disease, stage 4 (severe): (4) Cellulitis of right lower extremity: (5) Generalized weakness: Plan 72 y o m with stage 4 CKD and nephrotic syndrome secondary to diabetic nephropathy, b/l cr 2.5 to 2.8 mg/dl, with repeated episodes of ABDOULAYE in the setting of high-dose diuretic for nephrotic syndrome. Admitted to the hospital with right lower extremity cellulitis and failed outpatient antibiotic, currently on cefepime and daptomycin. Overall clinically doing better.blood culture has been negative, no old culture was done. Renal function has been slowly declining over last few days, creatinine 3.6 with BUN 112 today, ? prerenal. Possibility for AIN with antibiotic. Unlikely post renal . Reports decent urine output. Blood pressure remain elevated. Clinically seems slightly volume contracted although still has some right lower extremity edema which is most likely related to inflammation and cellulitis. --Hold metolazone and Bumex for now. Will consider resuming Bumex tomorrow based on intake, output and weight. monitor intake and output closely. --Check renal function and electrolyte in am, will check UA --iron study in am --avoid NSAIDs, avoid volume depletion --left arm nephrology precaution. Thank you for allowing me to participate in your patient's care. It was a pleasure to see Dayton. History of Present Illness Reason for Consultation: ABDOULAYE, azotemia, Stage 4 CKD. Attending Physician: Jess Link MD History of Present Illness Mr. Dayton Em is a 72 year old male with PMH significant for stage 4 CKD with Nephrotic syndrome, DMI, Cardiomyopathy, CAD s/p CABG x 4 admitted on 08/26/23 with RLE cellulitis and failed outpatient treatment. Nephrology consult was requested for management of ABDOULAYE. EMR records were reviewed in detail during visit. Dayton was referred to ER on 08/26/23 after he was noted to have significant rt LE cellulitis and generalized weakness during out pt nephrology f/u visit. He had a fall at home on 08/22/23 when he slipped and fell onto his driveway, was unable to get up for 2 hours and had a skin laceration in rt leg. EM wanted to bring him to the ED but he declined. He was seen in the Cardiology Clinic on 08/22 and was prescribed a 10 day course of Keflex but his RLE continued to become progressively more red, swollen, and painful. He generally felt weak but denied fever, chills, chest pain, SOB. On admission labs were significant for Cr of 2.82, BUN of 96, AG of 12 with bicarb WNL, potassium of 3.4, mag of 2.5. Venous doppler of the RLE was negative for DVT. CT negative for osteomyelitis. Empirically started on cefepime and Daptomycin. Stage 4 CKD b/l cr 2.5 to 2.8 mg/dl and nephrotic syndrome requiring high dose of diuretics. Has nephrotic syndrome with diabetic nephropathy. Has DM since age 36, complicated by significant macro and microvascular disease and proliferative diabetic retinopathy. Has mature left RC AVF (02/07/2021, Dr. Howard). Does have history of repeated episodes of ABDOULAYE with chronic high-dose diuretics use. Hypertension for 30 years, seems to be reasonable, on Losartan 100 mg daily. H/O CAD s/p CABG. Recent echo showed EF 55%, has moderate concentric LVH and grade 2 diastolic dysfunction. No history of BPH, nephrolithiasis. Denies any voiding symptoms. Had left BKA in 2015 after a minor injury turned in to osteomyelitis, had antibiotic for several weeks which caused acute kidney injury, eventually required BKA. Has chronic lower extremity edema with nephrotic syndrome related to diabetic nephropathy as well as CHF with diastolic dysfunction. Has been dose of Bumex and metolazone. Dayton reports overall feeling better today. Denies fever or chills. Lower extremity edema slightly improved. Blood pressure elevated. Allergies Allergy/AdvReac Type Severity Reaction Status Date / Time ofloxacin [From Floxin] Allergy Intermediate itching Verified 08/26/23 14:04 Quinolones Allergy Intermediate Itchiness Verified 08/26/23 14:04 sulfamethoxazole Allergy Intermediate Rash Verified 08/26/23 14:04 trimethoprim Allergy Intermediate Rash Verified 08/26/23 14:04 Home Medications Medication Instructions Recorded Confirmed Type latanoprost 0.005 % eye drops 1 drp OPB HS 12/27/17 08/26/23 History (Xalatan) lancets (OneTouch UltraSoft #50 ea 12/12/18 08/26/23 History Lancets) cholecalciferol (vitamin D3) 50 2,000 units PO QAM 11/10/19 08/26/23 History mcg (2,000 unit) capsule (Vitamin D3) Wheelchair (Powered) #1 ea 11/22/19 08/26/23 Rx blood sugar diagnostic (OneTouch #100 ea 01/31/20 08/26/23 Rx Ultra Blue Test Strip) brimonidine 0.2 % eye drops 1 drp OPB BID 12/07/20 08/26/23 History dorzolamide 2 % eye drops 1 drp OPB BID 12/07/20 08/26/23 History timolol maleate 0.5 % eye gel 1 drp OPB BID 12/07/20 08/26/23 History forming solution ascorbic acid (vitamin C) 500 mg 500 mg PO QAM 02/19/21 08/26/23 History capsule flash glucose scanning reader #1 ea 12/17/21 08/26/23 Rx (FreeStyle Farhad 2 Winfred) flash glucose sensor (FreeStyle #2 ea 08/06/22 08/26/23 Rx Farhad 2 Sensor kit) calcitriol 0.5 mcg capsule 1 mcg (2 x 0.5 mcg) PO QAM #60 caps 01/25/23 08/26/23 Rx pen needle, diabetic 32 gauge x #400 ea 02/25/23 08/26/23 Rx 5/32" (BD Ultra-Fine [place] Pen Needle) bumetanide 2 mg tablet 4 mg (2 x 2 mg) PO BID #120 tabs 04/09/23 08/26/23 Rx insulin NPH isoph U-100 human 100 30 unit (0.3 mL) subcut BID #10 mL 04/19/23 08/26/23 Rx unit/mL subcutaneous suspension (Novolin N NPH U-100 Insulin isophane) insulin regular human 100 unit/mL 1 sliding scale dose subcut 04/19/23 08/26/23 Rx injection solution (Humulin R USEASDIRECTD #10 mL Regular U-100 Insulin) cyanocobalamin (vitamin B-12) 500 1,000 mcg (2 x 500 mcg) PO QAM #0 05/04/23 08/26/23 Rx mcg tablet tabs ergocalciferol (vitamin D2) 1,250 50,000 unit PO WEEKLY #12 caps 05/27/23 08/26/23 Rx mcg (50,000 unit) capsule isosorbide mononitrate 30 mg 30 mg PO QAM #30 tabs 06/04/23 08/26/23 Rx tablet,extended release 24 hr losartan 50 mg tablet 50 mg PO QAM #30 tabs 06/04/23 08/26/23 Rx metoprolol succinate 25 mg 25 mg PO QAM #30 tabs 06/04/23 08/26/23 Rx tablet,extended release 24 hr potassium chloride 20 mEq 10 meq (1/2 x 20 mEq) PO QAM #30 06/16/23 08/26/23 Rx tablet,extended release(part/cryst) tabs sertraline 25 mg tablet 25 mg PO DAILY #30 tabs 06/20/23 08/26/23 Rx metolazone 5 mg tablet 5 mg PO Q OTHER DAY #45 tabs 06/25/23 08/26/23 Rx trazodone 50 mg tablet 50 mg PO HS #30 tabs 07/13/23 08/26/23 Rx aspirin 81 mg tablet 81 mg PO DAILY 07/16/23 08/26/23 History Wheelchair (Powered) (Power #1 ea 07/27/23 08/26/23 Rx Wheelchair) atorvastatin 80 mg tablet (Lipitor) 80 mg PO QAM #90 tabs 08/11/23 08/26/23 Rx ropinirole 1 mg tablet 3 mg (3 x 1 mg) PO HS #270 tabs 08/11/23 08/26/23 Rx cephalexin 500 mg capsule 500 mg PO Q6H #40 caps 08/23/23 08/26/23 Rx ondansetron 4 mg disintegrating 4 mg PO Q8H PRN nausea and 08/23/23 08/26/23 Rx tablet vomiting #30 tabs Patient History Medical History Type 2 diabetes mellitus Ventricular bigeminy 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, with long-term current use of insulin (HFpEF) heart failure with preserved ejection fraction Acute kidney injury superimposed on chronic kidney disease Pressure ulcer of BKA stump, stage 3 Influenza A virus subtype H1 2009 pandemic strain present Slow to wake up after anesthesia Wound of lower extremity Diabetes, type I Hypertension GERD (gastroesophageal reflux disease) History of TIA (transient ischemic attack) Surgical History Status post below knee amputation of left lower extremity S/P arteriovenous (AV) fistula creation History of esophagogastroduodenoscopy (EGD) History of colonoscopy S/P lumbar laminectomy S/P foot surgery S/P eye surgery S/P CABG x 4 History of lumbar discectomy History of tonsillectomy Family History Father , age 78 with prostate cancer Colorectal cancer Cardiovascular disease Diabetes Prostate cancer Grandmother (Maternal) Diabetes Mother , age 54 of throat cancer Throat cancer Denies family history of Ovarian cancer Myocardial infarction Breast cancer Social History Smoking Status: Unknown if ever smoked Second Hand Exposure: No; Do You Dip or Chew Tobacco: No; Hx Alcohol Use: No Hx Substance Use: No Preferred Language: Bulgarian Communication Ability: Effective Visual Impairment: No Limitations Hearing Ability: Normal Transaction Manager Required: No Beliefs That Will Affect Care: None marital status: / marital status details: lost August 2021 Current Living Situation: Alone current occupational status: retired current occupation: How many Children do You have: 2 other: Retired age 63-1/2. Feels Safe at Home: Yes Childhood Exposure to Second-Hand Smoke: No Diet: regular caffeine: No during the past year weight has: remained stable Dental Care, Regularly: Yes Physical Activity Frequency: Other Physical Activity Frequency Comment: limited d/t disability Seatbelt Use: always Sunscreen Use: Yes Assistive Devices: Prosthesis, Walker and Wheelchair Review of Systems Review of Systems: Detailed review of system was done and pertinent positives and negatives are mentioned above. Physical Exam Constitutional: WD/WN, vitals as above no acute distress Eyes: + anicteric sclerae Neck: normal visual inspection Respiratory: no respiratory distress Auscultation: lungs clear to auscultation bilaterally Gastrointestinal (Abdomen): Inspection/Auscultation: abdomen normal to inspection Musculoskeletal: Extremities: extremities normal to inspection Neurologic: no focal motor deficits Psychiatric: Orientation: alert and oriented x 3 Affect: euthymic affect Results & Data Vital Signs (Past 12 Hours) Vital Signs Temp Pulse Pulse Resp BP Pulse Ox O2 Del Method 08/30/23 08:00 Room Air 08/30/23 07:54 36.3 C L 58 L 16 162/78 H 91 Room Air 08/30/23 07:00 56 L 08/30/23 03:03 36.2 C L 55 L 18 177/83 H 95 Room Air PG Care Time/CCT Total # of Minutes Spent Total Time Spent with Patient: Total time spent is greater than 50% in coordination of care (as documented) at patient's floor/unit and/or counseling patient: Coding Level of Care Code 50865 INT INP/OBS CARE 3/75MIN Diagnoses Acute kidney injury N17.9 Anemia of chronic disease D63.8 Chronic kidney disease, stage 4 (severe) N18.4 Cellulitis of right lower extremity L03.115 Generalized weakness R53.1
--- NOTE | 2023-08-30 17:30 | Hospitalist Progress Note ---
Date of Service August 30, 2023 Assessment & Plan (1) Cellulitis of right lower extremity: Plan: Improving, afebrile, no leukocytosis Continue cefepime and daptomycin, and switch to po abx tomorrow Keep leg elevated when at rest (2) Generalized weakness: Plan: Supportive care. Continue OT and PT while hospitalized (3) Abrasion of multiple sites of right lower extremity: Plan: Probable source of underlying cellulitis. Wound care nurse consultation requested. (4) Restless leg syndrome: Plan: he takes Requip tid at home-changed to 1 mg bid during day and increased dose to 3mg hs at nighttime checking iron studies in AM increase trazadone for sleep to 75mg hs (5) Chronic combined systolic and diastolic heart failure: Plan: No current exacerbation. Monitor intake and output. Continue current medical management. Home medications have been reordered (6) Chronic kidney disease, stage 4 (severe): Plan: ABDOULAYE on CKD stage 4 with deburrer machine continuing to rise to 3.6, BUN 114 Monitor intake and output. Has mature fistula in the LUE for impending hemodialysis Continue to follow BMP Consult Nephrology for ABDOULAYE Checking UA in AM holding losartan, Bumex, metolazone, KCl (7) Hypokalemia: Plan: hold KCl supplement with rising deburrer machine follow BMP (8) CAD, multiple vessel: Plan: Stable. Continue current medical management with ASA, metoprolol isosorbide . Statin is on hold while on daptomycin h/o CABG (9) Diabetic peripheral 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: Plan: Continue NPH and Novolog SSI ADA diet (10) Hypertension: Plan: BPs elevated despite addition of hydralazine 10mg qid--> increase to hydralazine 25mg po tid continue Toprol, isosorbide holding home losartan, diuretics (11) Constipation: Plan: MiraLAX and Colace ordered Plan Depression/anxiety-continue Zoloft, increase trazadone to 75mg hs Dispo -OT and PT both recommend eventual return to prior living arrangements. possible discharge to home in 1-2 days depending on renal function DVT proph-heparin SQ Admission and Anticipated Discharge Date Admission Date: August 26, 2023 Subjective Pt has c/o severe RLS throughout the day and keeping him awake at night. Feels like his leg infection is improving. Denies SOB or CP. Tele with sinus rhythm, 1st degree AVB, SB, PVCs, rates 50s-60s Physical Exam Constitutional: WD/WN, vitals as above Respiratory: normal respiratory effort, lungs clear to auscultation Cardiovascular: Rate/Rhythm: regular rate and regular rhythm Heart Sounds: no murmur Extremities: + edema (1+ edema RLE) Musculoskeletal: Extremities: + extremities abnormal to inspection (left BKA) Skin: + lesion (multiple scabs all over anteri or RLE) and + erythema (mild, surrounding scabs RLE) Psychiatric: Orientation: alert, oriented x 3 and cooperative Affect: + anxious affect Results & Data Results & Data Vital Signs (Past 12 Hours) Vital Signs Temp Pulse Pulse Resp BP Pulse Ox O2 Del Method 08/30/23 15:38 36.5 C 65 16 138/54 L 93 Room Air 08/30/23 15:00 58 L 08/30/23 08:00 Room Air 08/30/23 07:54 36.3 C L 58 L 16 162/78 H 91 Room Air 08/30/23 07:00 56 L Laboratory Results CBC, BMP reviewed PG Care Time/CCT Total # of Minutes Spent Total Time Spent with Patient: Total time spent is greater than 50% in coordination of care (as documented) at patient's floor/unit and/or counseling patient: Coding Level of Care Code 42304 SUB INP/OBS CARE 3/50MIN Diagnoses Cellulitis of right lower extremity L03.115 Generalized weakness R53.1 Abrasion of multiple sites of right lower extremity, initial encounter S80.811A Encounter type: initial encounter Restless leg syndrome G25.81 Chronic combined systolic and diastolic heart failure I50.42 Chronic kidney disease, stage 4 (severe) N18.4 Hypokalemia E87.6 CAD, multiple vessel I25.10 Diabetic peripheral 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 E10.42 Primary hypertension I10 Hypertension type: primary hypertension Constipation K59.00 (3) Abrasion of multiple sites of right lower extremity Encounter type: initial encounter Qualified Code(s): S80.811A - Abrasion, right lower leg, initial encounter (10) Hypertension Hypertension type: primary hypertension Qualified Code(s): I10 - Essential (primary) hypertension
[2023-08-30 17:33] LABS: Appearance Urine Clear (Clear); Bacteria Urine Automated None Seen (None Seen); Bilirubin Urine Negative (Negative); Blood Urine Negative (Negative); Color Urine Yellow; Epithelial Cell Urine Auto 0-2 /hpf (0-2); Glucose Urine UA Negative (Negative); Ketones Urine Trace (Negative); Leukocyte Esterase Urine Negative (Negative); Nitrite Urine Negative (Negative); Protein Urine 2+ (Negative); RBC Urine Automated 0-2 /hpf (0-2); Specific Gravity Urine 1.013 (1.000-1.030); Urobilinogen Urine Negative (Negative); WBC Urine Automated 0-5 /hpf (0-5); pH Urine 5.5 (4.5-7.5)
[2023-08-30] MEDS: rOPINIRole HCL 1 MG TABLET PO SCH (17:57)
[2023-08-30] MEDS: MELATONIN 3 MG TAB PO SCH (20:36)
[2023-08-30] MEDS: traZODone HCL 50 MG TAB PO SCH (20:36)
[2023-08-30] MEDS: rOPINIRole HCL 2 MG TABLET PO SCH (20:48)
[2023-08-31 06:04] LABS: Albumin Level 3.6 gm/dl (3.4-5.0); BUN Creatinine Ratio 30.9 (10-20); Calcium 9.5 mg/dl (8.6-10.3); Creatinine Clr Calc Pharmacy 20.7 ml/min; Est GFR (African American) 17.3 ml/min; Est GFR (Non-African American) 14.9 ml/min; Phosphorus 5.9 mg/dl (2.5-4.9); Potassium 3.7 mmol/L (3.5-5.1)
[2023-08-31 06:22] LABS: Basophils # (auto) 0.03 K/uL (0.00-0.20); Basophils % (auto) 0.5 %; Eosinophils # (auto) 0.23 K/uL (0.00-0.50); Eosinophils % (auto) 3.8 %; Hematocrit (blood only) 33.1 % (42.0-52.0); Immature Granulocytes # (auto) 0.03 K/uL (0.01-0.20); Immature Granulocytes % (auto) 0.5 %; Lymphocytes # (auto) 0.62 K/uL (1.20-3.40); Lymphocytes % (auto) 10.3 %; Mean Corpuscular Hemoglobin 30.6 pg (25.0-34.0); Mean Corpuscular Hgb Conc 33.2 g/dL (32.0-36.0); Mean Corpuscular Volume 91.9 fL (80.0-100.0); Mean Platelet Volume 13.3 fL (9.4-12.4); Monocytes % (auto) 8.3 %; Neutrophils # (auto) 4.59 K/uL (1.40-6.50); Neutrophils % (auto) 76.6 %; Platelet Count 110 K/uL (130-400); RDW Coefficient of Variation 14.2 % (11.5-14.5); RDW Standard Deviation 47.3 fL (36.4-46.3)
[2023-08-31 06:24] LABS: Ferritin 105.8 ng/ml (8-388)
--- NOTE | 2023-08-31 12:20 | Nephrology Progress Note ---
Date of Service August 31, 2023 Assessment & Plan (1) Acute kidney injury: (2) Anemia of chronic disease: (3) Chronic kidney disease, stage 4 (severe): (4) Cellulitis of right lower extremity: (5) Generalized weakness: Plan 72 y o m with stage 4 CKD and nephrotic syndrome secondary to diabetic nephropathy, b/l cr 2.5 to 2.8 mg/dl, with repeated episodes of ABDOULAYE in the setting of high-dose diuretic for nephrotic syndrome. Admitted to the hospital with right lower extremity cellulitis and failed outpatient antibiotic, currently on cefepime and daptomycin. Overall clinically doing better.blood culture has been negative, no old culture was done. Renal function has been slowly declining over last few days, creatinine 3.8 with BUN 114 today, ? prerenal, ? AIN with antibiotic. Reports decent urine output. Blood pressure remain elevated. Volume status remains stable off of diuretics, no significant lower extremity edema. . --Continue to hold metolazone and Bumex for now, monitor intake and output and weight closely. Eventually he will need to be back on diuretics, he does have high risk for progressive worsening of renal function with underlying advanced CKD, repeated history of ABDOULAYE with high-dose diuretics and worsening lower extremity edema and volume status of diuretics. --Check renal function and electrolyte in am. --Start on Venofer 200 mg daily for total 5 doses --avoid NSAIDs, avoid volume depletion --left arm nephrology precaution. Admission and Anticipated Discharge Date Admission Date: August 26, 2023 Tavia Burris was seen and evaluated this morning. Overnight events, he denied any symptoms but just feels bored staying in hospital. Has been having decent urine output while diuretics on hold, however no improvement in kidney function, BUN and creatinine staying quite elevated although electrolyte acceptable. Volume status acceptable. Review of Systems Review of Systems: Detailed review of system was done and pertinent positives and negatives are mentioned above. Physical Exam Constitutional: WD/WN, vitals as above no acute distress Neck: normal visual inspection Respiratory: no respiratory distress Auscultation: lungs clear to auscultation bilaterally Musculoskeletal: Left BKA, right lower extremity with dressing on. Skin: Right lower extremity with mild erythema and superficial skin break. Neurologic: no focal motor deficits Results & Data Vital Signs (Past 12 Hours) Vital Signs Temp Pulse Pulse Resp BP Pulse Ox O2 Del Method 08/31/23 11:04 36.3 C L 52 L 16 156/75 H 94 Room Air 08/31/23 08:07 36.2 C L 48 L 16 177/51 H 92 Room Air 08/31/23 08:00 Room Air 08/31/23 07:00 53 L 08/31/23 03:07 36.3 C L 51 L 18 155/68 H 94 Room Air PG Care Time/CCT Total # of Minutes Spent Total Time Spent with Patient: Total time spent is greater than 50% in coordination of care (as documented) at patient's floor/unit and/or counseling patient: Coding Level of Care Code 05184 SUB INP/OBS CARE 3/50MIN Diagnoses Acute kidney injury N17.9 Anemia of chronic disease D63.8 Chronic kidney disease, stage 4 (severe) N18.4 Cellulitis of right lower extremity L03.115 Generalized weakness R53.1
[2023-08-31] MEDS: IRON SUCROSE 200 MG in 0.9 % SODIUM CHLORIDE 100 ML IV SCH (12:55)
--- NOTE | 2023-08-31 20:10 | Hospitalist Progress Note ---
Date of Service August 31, 2023 Assessment & Plan (1) Cellulitis of right lower extremity: Plan: Improving, afebrile, no leukocytosis Received 5 days of IV cefepime and daptomycin, will now switch to po abx with 2 more days of Augmentin Keep leg elevated when at rest Continue wound care to the abrasions/scabs on the leg (2) Chronic kidney disease, stage 4 (severe): Plan: ABDOULAYE on CKD stage 4 with ux architect rising further again today to 3.75, BUN 116 Monitor intake and output-making urine, not volume overloaded, potassium normal, not acidotic. Has mature fistula in the LUE for impending hemodialysis Blood pressures are elevated-hydralazine was uptitrated Continue to follow BMP Consult Nephrology for ABDOULAYE appreciated Continue holding losartan, Bumex, metolazone, KCl (3) Restless leg syndrome: Plan: He was having significant restless leg symptoms during the day-changed to 1 mg bid during day and increased dose to 2mg hs at nighttime Iron studies are slightly low with transferrin saturation of 19%-nephrology ordered IV Venofer 200 mg daily x 5 days increased trazodone for sleep to 75mg hs and this is helping (4) Depression: Plan: Patient tearful during every visit in the hospital. He admits to increased feelings of depression on most days even before he was in the hospital. He continues to grieve over the loss of his from several years ago. He denies suicidal ideations. He has difficulty with insomnia Increase sertraline to 50 mg daily Increase trazodone to 75 mg at bedtime for improved sleep He is interested in seeing psychiatry here in the hospital and I also encouraged him to pursue seeing a therapist as an outpatient (5) Chronic combined systolic and diastolic heart failure: Plan: Echocardiogram from 05/2023 with EF 45-50%, grade 2 diastolic dysfunction No current exacerbation. Monitor intake and output. Holding home Bumex and metolazone for renal failure (6) Generalized weakness: Plan: Supportive care. Continue OT and PT while hospitalized-improving (7) Hypokalemia: Plan: hold KCl supplement with rising ux architect Potassium is normal off of diuretics follow BMP (8) CAD, multiple vessel: Plan: Stable. Continue current medical management with ASA, metoprolol, isosorbide . Statin is on hold while on daptomycin h/o CABG (9) Diabetic peripheral 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: Plan: With hyperglycemia here likely secondary to decreased dose of NPH compared to his home dose of 30 units twice a day Most recent hemoglobin A1c uncontrolled at 8.8% in 05/2023 Increase continue NPH to 15 units twice daily starting this evening and tighten down goal range and correction factor of Novolog SSI Continue ADA diet (10) Hypertension: Plan: BPs remain elevated-improving slightly with increased dose of hydralazine 25mg po tid continue Toprol, isosorbide holding home losartan, diuretics Continue to monitor (11) Constipation: Plan: MiraLAX and Colace ordered, still no bowel movement Plan Dispo -OT and PT both recommend eventual return to prior living arrangements. possible discharge to home in 1-2 days depending on renal function DVT proph-heparin SQ Admission and Anticipated Discharge Date Admission Date: August 26, 2023 Subjective Patient reports he slept better last night. The restless legs are still active today but slightly better than previous. He is very tearful and spends 20 minutes telling me about his who has since and his in-laws who have . He does admit to feeling sad on most days but denies suicidal ideations. He is interested in seeing a psychiatrist or therapist. He is making urine. Telemetry with sinus bradycardia and first-degree AV block with occasional PVCs and bigeminy, rates in the 50s to 90s Physical Exam Constitutional: WD/WN, vitals as above Respiratory: normal respiratory effort, lungs clear to auscultation Cardiovascular: Rate/Rhythm: regular rate and regular rhythm Heart Sounds: no murmur Extremities: + edema (1+ edema RLE) Musculoskeletal: Extremities: + extremities abnormal to inspection (left BKA) Skin: + lesion (multiple scabs all over anteri or RLE) and + erythema (mild, surrounding scabs RLE) Psychiatric: Orientation: alert, oriented x 3 and cooperative Affect: + depressed affect and + tearful affect Results & Data Results & Data Vital Signs (Past 12 Hours) Vital Signs Temp Pulse Pulse Resp BP Pulse Ox O2 Del Method 08/31/23 16:26 Room Air 08/31/23 16:13 36.4 C L 57 L 16 151/54 H 94 Room Air 08/31/23 15:21 68 08/31/23 11:04 36.3 C L 52 L 16 156/75 H 94 Room Air Laboratory Results CBC, BMP, iron studies, phosphorus, blood cultures reviewed PG Care Time/CCT Total # of Minutes Spent Total Time Spent with Patient: Total time spent is greater than 50% in coordination of care (as documented) at patient's floor/unit and/or counseling patient: Coding Level of Care Code 18207 SUB INP/OBS CARE 3/50MIN Diagnoses Cellulitis of right lower extremity L03.115 Chronic kidney disease, stage 4 (severe) N18.4 Restless leg syndrome G25.81 Depression F32.A Chronic combined systolic and diastolic heart failure I50.42 Generalized weakness R53.1 Hypokalemia E87.6 CAD, multiple vessel I25.10 Diabetic peripheral 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 E10.42 Primary hypertension I10 Hypertension type: primary hypertension Constipation K59.00 (10) Hypertension Hypertension type: primary hypertension Qualified Code(s): I10 - Essential (primary) hypertension
[2023-08-31] MEDS: INSULIN HUMAN NPH SC ONE (21:32)
[2023-09-01 06:16] LABS: Basophils # (auto) 0.04 K/uL (0.00-0.20); Basophils % (auto) 0.6 %; Eosinophils # (auto) 0.26 K/uL (0.00-0.50); Eosinophils % (auto) 3.9 %; Hematocrit (blood only) 29.4 % (42.0-52.0); Hemoglobin 9.9 g/dl (14.0-18.0); Immature Granulocytes # (auto) 0.03 K/uL (0.01-0.20); Immature Granulocytes % (auto) 0.5 %; Lymphocytes # (auto) 0.59 K/uL (1.20-3.40); Lymphocytes % (auto) 8.9 %; Mean Corpuscular Hemoglobin 30.7 pg (25.0-34.0); Mean Corpuscular Hgb Conc 33.7 g/dL (32.0-36.0); Mean Platelet Volume 13.5 fL (9.4-12.4); Monocytes # (auto) 0.61 K/uL (0.11-0.59); Monocytes % (auto) 9.2 %; Neutrophils # (auto) 5.12 K/uL (1.40-6.50); Neutrophils % (auto) 76.9 %; Platelet Count 123 K/uL (130-400); RDW Coefficient of Variation 14.2 % (11.5-14.5); Red Blood Count 3.23 M/uL (4.70-6.10); White Blood Count 6.65 K/ul (4.8-10.8)
[2023-09-01 06:40] LABS: Albumin Level 3.6 gm/dl (3.4-5.0); BUN Creatinine Ratio 35.5 (10-20); Calcium 9.2 mg/dl (8.6-10.3); Est GFR (African American) 20.7 ml/min; Est GFR (Non-African American) 17.8 ml/min; Phosphorus 4.6 mg/dl (2.5-4.9); Potassium 3.6 mmol/L (3.5-5.1)
[2023-09-01] MEDS: INSULIN HUMAN NPH SC SCH (09:14)
[2023-09-01] MEDS: amLODIPine BESYLATE 5 MG TAB PO SCH (09:14)
[2023-09-01] MEDS: AMOXICILLIN/CLAVULANATE 500 MG TAB PO SCH (09:15)
[2023-09-01] MEDS: SERTRALINE HCL 50 MG TABLET PO SCH (09:15)
--- NOTE | 2023-09-01 10:41 | Nephrology Progress Note ---
Date of Service September 01, 2023 Assessment & Plan (1) Acute kidney injury: (2) Anemia of chronic disease: (3) Chronic kidney disease, stage 4 (severe): (4) Cellulitis of right lower extremity: (5) Generalized weakness: Plan 72 y o m with stage 4 CKD and nephrotic syndrome secondary to diabetic nephropathy, b/l cr 2.5 to 2.8 mg/dl, with repeated episodes of ABDOULAYE in the setting of high-dose diuretic for nephrotic syndrome. Admitted to the hospital with right lower extremity cellulitis and failed outpatient antibiotic, currently on cefepime and daptomycin. Overall clinically doing better. blood culture has been negative. Renal function slightly improved, creatinine 3.3. Reports decent urine output. Blood pressure remain elevated. Volume status remains stable off of diuretics, no significant lower extremity edema. --ok to start on Amlodipine and increase dose as needed, continue to hold metolazone and Bumex for now, monitor intake and output and weight closely. High risk for progressive worsening of renal function with underlying advanced CKD, repeated history of ABDOULAYE with high-dose diuretics and worsening lower extremity edema and volume status of diuretics. --Continue on Venofer 200 mg daily for total 5 doses, will give BASILIO once BP improves. --avoid NSAIDs, avoid volume depletion --left arm nephrology precaution. --encouraged to get out of bed and walk around hallway if able Admission and Anticipated Discharge Date Admission Date: August 26, 2023 Tavia Burris was seen and evaluated this morning. He denied any symptoms. Has been having decent urine output while diuretics on hold and weight has been stable. Slight improvement in kidney function noted, electrolyte acceptable. Volume status acceptable. BP running high. Review of Systems Review of Systems: Detailed review of system was done and pertinent positives and negatives are mentioned above. Physical Exam Constitutional: WD/WN, vitals as above no acute distress Neck: normal visual inspection Respiratory: no respiratory distress Auscultation: lungs clear to auscultation bilaterally Musculoskeletal: Left BKA, right lower extremity with dressing on. Skin: Right lower extremity with mild erythema and superficial skin break. Neurologic: no focal motor deficits Results & Data Vital Signs (Past 12 Hours) Vital Signs Temp Pulse Pulse Resp BP Pulse Ox O2 Del Method 09/01/23 07:52 36.4 C L 54 L 18 190/76 H 97 Room Air 05/22/24 07:30 Room Air 09/01/23 07:27 53 L 09/01/23 04:07 52 L 138/49 L 09/01/23 02:43 36.3 C L 62 18 186/73 H 96 Room Air 08/31/23 22:57 36.3 C L 55 L 18 163/61 H 92 Room Air PG Care Time/CCT Total # of Minutes Spent Total Time Spent with Patient: Total time spent is greater than 50% in coordination of care (as documented) at patient's floor/unit and/or counseling patient: Coding Level of Care Code 12975 SUB INP/OBS CARE 2/35MIN Diagnoses Acute kidney injury N17.9 Anemia of chronic disease D63.8 Chronic kidney disease, stage 4 (severe) N18.4 Cellulitis of right lower extremity L03.115 Generalized weakness R53.1
--- NOTE | 2023-09-01 12:34 | Hospitalist Progress Note ---
Date of Service September 01, 2023 Assessment & Plan (1) Cellulitis of right lower extremity: Plan: Improving, afebrile, no leukocytosis Received 5 days of IV cefepime and daptomycin, then switched to po abx with 1 more day of Augmentin -last day tx 09/02/23 Keep leg elevated when at rest Continue wound care to the abrasions/scabs on the leg (2) Chronic kidney disease, stage 4 (severe): Plan: ABDOULAYE on CKD stage 4 with blending tank helper peaking at 3.75, BUN 116 Held diuretics and now improving to 3.24 Monitor intake and output-making urine, not volume overloaded, potassium normal, not acidotic. Has mature fistula in the LUE for impending hemodialysis Blood pressures are elevated-hydralazine was uptitrated and now will add on amlodipine 5mg daily Continue to follow BMP Consult Nephrology for ABDOULAYE appreciated Continue holding losartan, Bumex, metolazone, KCl (3) Restless leg syndrome: Plan: He was having significant restless leg symptoms during the day-changed to 1 mg bid during day and increased dose to 2mg hs at nighttime Iron studies are slightly low with transferrin saturation of 19%-nephrology ordered IV Venofer 200 mg daily x 5 days increased trazodone for sleep to 75mg hs and this is helping but not able to sleep still-increase to 100mg hs (4) Depression: Plan: Patient tearful during every visit in the hospital. He admits to increased feelings of depression on most days even before he was in the hospital. He continues to grieve over the loss of his from several years ago. He denies suicidal ideations. He has difficulty with insomnia Increased sertraline to 50 mg daily Increase trazodone again to 100mg at bedtime for improved sleep He is interested in seeing psychiatry here in the hospital and I also encouraged him to pursue seeing a therapist as an outpatient (5) Chronic combined systolic and diastolic heart failure: Plan: Echocardiogram from 05/2023 with EF 45-50%, grade 2 diastolic dysfunction No current exacerbation. Monitor intake and output. Holding home Bumex and metolazone for renal failure (6) Generalized weakness: Plan: Supportive care. Continue OT and PT while hospitalized-improving (7) Hypokalemia: Plan: hold KCl supplement with rising blending tank helper Potassium is normal off of diuretics follow BMP (8) CAD, multiple vessel: Plan: Stable. Continue current medical management with ASA, metoprolol, isosorbide . Statin is on hold while on daptomycin h/o CABG (9) Diabetic peripheral 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: Plan: With hyperglycemia here likely secondary to decreased dose of NPH compared to his home dose of 30 units twice a day Most recent hemoglobin A1c uncontrolled at 8.8% in 05/2023 Increased NPH to 15 units twice daily and tightened down goal range and correction factor of Novolog SSI--> glucose now improved Continue ADA diet (10) Hypertension: Plan: BPs remain elevated-improving slightly with increased dose of hydralazine 25mg po tid but remain high start amlodipine 5mg daily continue Toprol, isosorbide holding home losartan, diuretics Continue to monitor (11) Constipation: Plan: MiraLAX and Colace ordered, had bowel movement 08/31 Plan Dispo -OT and PT both recommend eventual return to prior living arrangements. possible discharge to home tomorrow if renal function continues to improve and BPs controlled DVT proph-heparin SQ Admission and Anticipated Discharge Date Admission Date: August 26, 2023 Subjective Pt reports not sleeping at all last night, feels very anxious all the time and constantly thinking/worrying about things. Moved his bowels, no other concerns Physical Exam Constitutional: WD/WN, vitals as above Respiratory: normal respiratory effort, lungs clear to auscultation Cardiovascular: Rate/Rhythm: regular rate and regular rhythm Heart Sounds: no murmur Extremities: + edema (1+ edema RLE) Musculoskeletal: Extremities: + extremities abnormal to inspection (left BKA) Skin: + lesion (multiple scabs all over anteri or RLE) and + erythema (mild, surrounding scabs RLE) Psychiatric: Orientation: alert, oriented x 3 and cooperative Affect: + anxious affect Results & Data Results & Data Vital Signs (Past 12 Hours) Vital Signs Temp Pulse Pulse Resp BP Pulse Ox O2 Del Method 09/01/23 11:12 36.2 C L 60 18 181/74 H 95 Room Air 09/01/23 07:52 36.4 C L 54 L 18 190/76 H 97 Room Air 09/01/23 07:30 Room Air 09/01/23 07:27 53 L 09/01/23 04:07 52 L 138/49 L 09/01/23 02:43 36.3 C L 62 18 186/73 H 96 Room Air Laboratory Results CBC, BMP, phos reviewed PG Care Time/CCT Total # of Minutes Spent Total Time Spent with Patient: Total time spent is greater than 50% in coordination of care (as documented) at patient's floor/unit and/or counseling patient: Coding Level of Care Code 99749 SUB INP/OBS CARE 2/35MIN Diagnoses Cellulitis of right lower extremity L03.115 Chronic kidney disease, stage 4 (severe) N18.4 Restless leg syndrome G25.81 Depression F32.A Chronic combined systolic and diastolic heart failure I50.42 Generalized weakness R53.1 Hypokalemia E87.6 CAD, multiple vessel I25.10 Diabetic peripheral 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 E10.42 Primary hypertension I10 Hypertension type: primary hypertension Constipation K59.00 (10) Hypertension Hypertension type: primary hypertension Qualified Code(s): I10 - Essential (primary) hypertension
[2023-09-01] MEDS: traZODone HCL 100 MG TAB PO SCH (22:31)
[2023-09-02 08:20] LABS: Albumin Level 3.5 gm/dl (3.4-5.0); BUN Creatinine Ratio 32.3 (10-20); Calcium 9.6 mg/dl (8.6-10.3); Creatinine Clr Calc Pharmacy 26.8 ml/min; Est GFR (African American) 23.5 ml/min; Est GFR (Non-African American) 20.3 ml/min; Phosphorus 4.4 mg/dl (2.5-4.9); Potassium 3.6 mmol/L (3.5-5.1)
--- NOTE | 2023-09-02 10:42 | Nephrology Progress Note ---
Date of Service September 02, 2023 Assessment & Plan (1) Acute kidney injury: (2) Anemia of chronic disease: (3) Chronic kidney disease, stage 4 (severe): (4) Cellulitis of right lower extremity: (5) Generalized weakness: Plan 72 y o m with stage 4 CKD and nephrotic syndrome secondary to diabetic nephropathy, b/l cr 2.5 to 2.8 mg/dl, with repeated episodes of ABDOULAYE in the setting of high-dose diuretic for nephrotic syndrome. Admitted to the hospital with right lower extremity cellulitis and failed outpatient antibiotic, currently on cefepime and daptomycin. Overall clinically doing better. blood culture has been negative. Renal function continues to improve, creatinine 2.9 mg/dl. Reports decent urine output. Blood pressure improved. Volume status remains stable off of diuretics, no significant lower extremity edema. Antibiotic switched to Augmentin. --continue Amlodipine 5 mg/d , continue to hold metolazone and Bumex for now, monitor intake and output and weight closely. High risk for progressive worsening of renal function with underlying advanced CKD, repeated history of ABDOULAYE with high-dose diuretics and worsening lower extremity edema and volume status of diuretics. --Continue on Venofer 200 mg daily for total 5 doses --Epogen 58104 x1 dose today. --avoid NSAIDs, avoid volume depletion --left arm nephrology precaution. --encouraged to get out of bed and walk around hallway if able --if kidney function continues to improve and clinically otherwise stable, will tentatively plan for discharge tomorrow. Admission and Anticipated Discharge Date Admission Date: August 26, 2023 Tavia Burris was evaluated this morning, not seen in person, discussed with hsis nurse and spoke over telephone. He denied any symptoms. Has been having decent urine output while diuretics on hold and weight has been stable. Kidney function continues to improve, creatinine 2.9 mg/dl, electrolyte acceptable. Volume status acceptable. BP improved. Review of Systems Review of Systems: Detailed review of system was done and pertinent positives and negatives are mentioned above. Results & Data Vital Signs (Past 12 Hours) Vital Signs Temp Pulse Pulse Resp BP Pulse Ox O2 Del Method 09/02/23 09:00 Room Air 09/02/23 07:52 36.4 C L 58 L 18 170/72 H 93 Room Air 09/02/23 07:00 57 L 09/02/23 02:55 36.6 C 88 20 133/96 92 Room Air 09/01/23 23:21 36.8 C 86 18 121/93 93 Room Air PG Care Time/CCT Total # of Minutes Spent Total Time Spent with Patient: Total time spent is greater than 50% in coordination of care (as documented) at patient's floor/unit and/or counseling patient: Coding Level of Care Code 99114 SUB INP/OBS CARE 05/06MIN Diagnoses Acute kidney injury N17.9 Anemia of chronic disease D63.8 Chronic kidney disease, stage 4 (severe) N18.4 Cellulitis of right lower extremity L03.115 Generalized weakness R53.1
[2023-09-02] MEDS: EPOETIN ALFA 40,000 UNITS/ML VIAL SQ STA (13:14)
--- NOTE | 2023-09-02 18:22 | Hospitalist Progress Note ---
Date of Service September 02, 2023 Assessment & Plan (1) Cellulitis of right lower extremity: Plan: Resolved, remains afebrile, no leukocytosis, blood cxs no growth. Has a h/o MSSA and more remote h/o Pseudomonas in wound cxs Received 5 days of IV cefepime and daptomycin, then switched to po abx with last day of Augmentin 09/02/23 Keep leg elevated when at rest Continue wound care to the abrasions/scabs on the leg (2) Chronic kidney disease, stage 4 (severe): Plan: ABDOULAYE on CKD stage 4 with nut culler peaking at 3.75, BUN 116 Held diuretics and now finally much improved down to 2.9, BUN down to 94 Monitor intake and output-making urine, not volume overloaded, potassium normal, not acidotic. Has mature fistula in the LUE for impending hemodialysis Blood pressures are elevated but improving-hydralazine was uptitrated and added on amlodipine 5mg daily Continue to follow BMP Consult Nephrology for ABDOULAYE appreciated Continue holding losartan, Bumex, metolazone, KCl, but Nephrology will likely add back some smaller dose of diuretic upon discharge (3) Restless leg syndrome: Plan: He was having significant restless leg symptoms during the day-changed to 1 mg bid during day and increased dose to 2mg hs at nighttime Iron studies are slightly low with transferrin saturation of 19%-nephrology ordered IV Venofer 200 mg daily x 5 days increased trazodone for sleep to 100mg hs (4) Depression: Plan: Patient tearful during every visit in the hospital. He admits to increased feelings of depression on most days even before he was in the hospital. He continues to grieve over the loss of his from several years ago. He denies suicidal ideations. He has difficulty with insomnia Increased sertraline to 50 mg daily Increase trazodone again to 100mg at bedtime for improved sleep Seen by Psychiatric Nurse liaison here in the hospital and I also encouraged him to pursue seeing a therapist as an outpatient (5) Chronic combined systolic and diastolic heart failure: Plan: Echocardiogram from 05/2023 with EF 45-50%, grade 2 diastolic dysfunction No current exacerbation. Monitor intake and output. Holding home Bumex and metolazone for renal failure (6) Generalized weakness: Plan: Supportive care. Continue OT and PT while hospitalized-much improved and recommended to go home with home health (7) Hypokalemia: Plan: held KCl supplement with rising nut culler Potassium is normal off of diuretics follow BMP (8) CAD, multiple vessel: Plan: Stable. Continue current medical management with ASA, metoprolol, isosorbide . Statin is on hold while on daptomycin h/o CABG (9) Diabetic peripheral 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: Plan: With hyperglycemia here likely secondary to decreased dose of NPH compared to his home dose of 30 units twice a day Most recent hemoglobin A1c uncontrolled at 8.8% in 05/2023 Increase NPH again to 20 units twice daily Continue Novolog SSI Continue ADA diet (10) Hypertension: Plan: BPs remain elevated-improving with increased dose of hydralazine 25mg po tid and addition of amlodipine continue amlodipine 5mg daily, Toprol, isosorbide holding home losartan, diuretics Continue to monitor (11) Constipation: Plan: MiraLAX and Colace ordered, had bowel movement 08/31 Plan Dispo -OT and PT both recommend eventual return to prior living arrangements. possible discharge to home tomorrow if renal function continues to improve and BPs controlled DVT proph-heparin SQ Admission and Anticipated Discharge Date Admission Date: August 26, 2023 Subjective Pt seems to be in slightly better spirits today. Still reports not sleeping well despite increase in trazodone to 100mg. No SOB, CP. Tele with some bigem,mostly 1st degree AV block, SB, rates 50-60s Physical Exam Constitutional: WD/WN, vitals as above Respiratory: normal respiratory effort, lungs clear to auscultation Cardiovascular: Rate/Rhythm: regular rate and regular rhythm Heart Sounds: no murmur Extremities: + edema (1+ edema RLE) Musculoskeletal: Extremities: + extremities abnormal to inspection (left BKA) Skin: + lesion (multiple scabs all over anteri or RLE) and + erythema (resolved around wounds on leg) Psychiatric: Orientation: alert, oriented x 3 and cooperative Affect: + depressed affect and + anxious affect Results & Data Results & Data Vital Signs (Past 12 Hours) Vital Signs Temp Pulse Pulse Resp BP Pulse Ox O2 Del Method 09/02/23 15:51 36.4 C L 56 L 18 161/79 H 94 Room Air 09/02/23 15:00 56 L 09/02/23 11:10 36.5 C 64 18 128/59 L 91 Room Air 09/02/23 09:00 Room Air 09/02/23 07:52 36.4 C L 58 L 18 170/72 H 93 Room Air 09/02/23 07:00 57 L Laboratory Results BMP, blood cxs reviewed PG Care Time/CCT Total # of Minutes Spent Total Time Spent with Patient: Total time spent is greater than 50% in coordination of care (as documented) at patient's floor/unit and/or counseling patient: Coding Level of Care Code 84213 SUB INP/OBS CARE 2/35MIN Diagnoses Cellulitis of right lower extremity L03.115 Chronic kidney disease, stage 4 (severe) N18.4 Restless leg syndrome G25.81 Depression F32.A Chronic combined systolic and diastolic heart failure I50.42 Generalized weakness R53.1 Hypokalemia E87.6 CAD, multiple vessel I25.10 Diabetic peripheral 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 E10.42 Primary hypertension I10 Hypertension type: primary hypertension Constipation K59.00 (10) Hypertension Hypertension type: primary hypertension Qualified Code(s): I10 - Essential (primary) hypertension
[2023-09-03 07:37] LABS: Albumin Level 3.6 gm/dl (3.4-5.0); BUN Creatinine Ratio 29.7 (10-20); Calcium 9.6 mg/dl (8.6-10.3); Creatinine Clr Calc Pharmacy 26.4 ml/min; Est GFR (African American) 24.3 ml/min; Phosphorus 4.4 mg/dl (2.5-4.9); Potassium 3.8 mmol/L (3.5-5.1)
[2023-09-03] MEDS: INSULIN HUMAN NPH SC SCH (09:02)
--- NOTE | 2023-09-03 09:32 | Nephrology Progress Note ---
Date of Service September 03, 2023 Assessment & Plan (1) Acute kidney injury: (2) Anemia of chronic disease: (3) Chronic kidney disease, stage 4 (severe): (4) Cellulitis of right lower extremity: (5) Generalized weakness: Plan 72 y o m with stage 4 CKD and nephrotic syndrome secondary to diabetic nephropathy, b/l cr 2.5 to 2.8 mg/dl, with repeated episodes of ABDOULAYE in the setting of high-dose diuretic for nephrotic syndrome. Admitted to the hospital with right lower extremity cellulitis and failed outpatient antibiotic, currently on cefepime and daptomycin. Overall clinically doing better. blood culture has been negative. Renal function continues to improve, creatinine 2.8 mg/dl. Reports decent urine output. Blood pressure improved. Volume status remains stable off of diuretics, no significant lower extremity edema. Antibiotic switched to Augmentin. --continue Amlodipine 5 mg/d. --Epogen 23641 x1 dose given on 09/02/2023 --avoid NSAIDs, avoid volume depletion --left arm nephrology precaution. --encouraged to get out of bed and walk around hallway if able -- Okay to be discharged with close outpatient lab monitoring early next week. -- Resume Bumex at 2 mg daily, advised to monitor weight at home, keep leg elevated and follow low-salt diet. If noticed significant weight gain, advised to increase Bumex to 4 mg daily and then bid as needed. Continue to hold metolazone. --lab early next week. Admission and Anticipated Discharge Date Admission Date: August 26, 2023 Tavia Burris was seen and evaluated this morning. He reports feeling well, denied any symptoms, ready to go home. Seen by Occupational Therapy and recommended referral to rehab as he has high risk for fall but he is refusing to go to rehab and planning to go home. Has been having decent urine output while diuretics on hold and weight has been stable. Slight improvement in kidney function noted, creatinine down to 2.8, electrolyte acceptable. Volume status acceptable. BP has been variable Review of Systems Review of Systems: Detailed review of system was done and pertinent positives and negatives are mentioned above. Physical Exam Constitutional: WD/WN, vitals as above no acute distress Eyes: + anicteric sclerae Neck: normal visual inspection Respiratory: no respiratory distress Auscultation: lungs clear to auscultation bilaterally Gastrointestinal (Abdomen): Inspection/Auscultation: abdomen normal to inspection Musculoskeletal: Left BKA, right lower extremity in dressing. Skin: Mild erythema in right lower extremity, superficial ulceration, dressing on Neurologic: no focal motor deficits Psychiatric: Orientation: alert and oriented x 3 Affect: euthymic affect Results & Data Vital Signs (Past 12 Hours) Vital Signs Temp Pulse Pulse Resp BP Pulse Ox O2 Del Method 09/03/23 08:09 36.4 C L 47 L 18 138/67 92 Room Air 09/03/23 07:30 Room Air 09/03/23 07:00 56 L 09/03/23 03:19 36.3 C L 54 L 18 167/67 H 94 Room Air 09/02/23 23:19 36.4 C L 62 16 146/64 H 92 Room Air 09/02/23 22:08 54 L PG Care Time/CCT Total # of Minutes Spent Total Time Spent with Patient: Total time spent is greater than 50% in coordination of care (as documented) at patient's floor/unit and/or counseling patient: Coding Level of Care Code 67274 SUB INP/OBS CARE 2/35MIN Diagnoses Acute kidney injury N17.9 Anemia of chronic disease D63.8 Chronic kidney disease, stage 4 (severe) N18.4 Cellulitis of right lower extremity L03.115 Generalized weakness R53.1
--- NOTE | 2023-09-03 10:31 | Discharge Summary ---
Date of Service September 03, 2023 Admission HPI Per Admitting Provider [place] is a 72 year old male with a PMH significant for stage 4 CKD with Nephrotic syndrome, DMI, Cardiomyopathy, CAD s/p CABG x 4 (2012 at [facility] [place] consisting of ZURITA to LAD, SVG to OM and sequential graft to diagonal, SVG to RCA PDA), HFrEF(Mildly reduced LVEF, grade II diastolic dysfunction), S/P left BKA, previous CVA who presented to the [facility] ED on 08/26/23 due to concerns for RLE cellulitis and failed outpatient treatment. The patient remained stable in the ED. Labs were significant for a Cr of 2.82 (baseline is 2.5-2.8), BUN of 96, AG of 12 with bicarb WNL, potassium of 3.4, mag of 2.5, and procal WNL. Venous doppler of the RLE was negative for DVT. CT of the right tib/fib was read as "1. Diffuse skin thickening and subcutaneous edema within the right lower leg. This may represent a cellulitis. 2. No loculated fluid collections on this noncontrast study to suggest an abscess. 3. No underlying bony destruction to suggest an osteomyelitis. 4. Advanced fatty atrophy within the right lower leg musculature.". Prior to admission the patient was given a dose of cefepime, 500 mL NSS, 4 mg IV morphine, 4mg IV zofran, and was ordered a dose of Vancomycin which was held by the admission team. At the time of the exam the patient was sitting in bed in no acute distress with his grandson bedside. The patient states that he was trying to get into his truck on 08/22/23 when he slipped and fell onto his driveway. He was unable to get himself up for approximately 2 hours, he sustained the RLE injuries during this time. He did not hit his head or lose consciousness. He denies other injuries during the fall. He called EMS who helped him up and wanted to bring him to the ED for evaluation but he declined. He was seen in the Cardiology Clinic on 08/22 and was prescribed a 10 day course of Keflex for the RLE. He confirms that he was taking the Keflex as prescribed but his RLE continued to become progressively more red, swollen, and painful. He feels generally weak at this time but denies other complaints such as fever, chills, chest pain, SOB, abd pain, nausea, vomiting, diarrhea, dysuria, hematuria, melena. He is a full code and his son is his POA. Please refer to Dr. Ware's attestation for any changes to the treatment plan Principal Diagnosis Recurrent right lower extremity cellulitis, hypokalemia, iron deficiency anemia, acute on chronic kidney disease stage IV Discharge Exam General-alert and oriented x3, no fever, no chills HEENT-head atraumatic and normocephalic, pupils equal and reactive to light, extraocular muscles intact Neck-no lymphadenopathy or thyromegaly, trachea midline Chest-diminished breath sounds bilaterally. No rales, wheezing or rhonchi Cardiac-regular rate and rhythm, normal S1 and S2 Abdomen-normal bowel sounds, no hepatosplenomegaly Extremities-no cyanosis, clubbing, or edema. Left BKA status Neuro-cranial nerves II through XII intact, motor and sensory function within normal limits, strength symmetrical, no focal deficits Psych-normal affect, normal mood Discharge Data Allergies Allergy/AdvReac Type Severity Reaction Status Date / Time ofloxacin [From Floxin] Allergy Intermediate itching Verified 08/26/23 14:04 Quinolones Allergy Intermediate Itchiness Verified 08/26/23 14:04 sulfamethoxazole Allergy Intermediate Rash Verified 08/26/23 14:04 trimethoprim Allergy Intermediate Rash Verified 08/26/23 14:04 Consultations 08/26/23 17:37 ED Decision to Admit Stat 08/30/23 09:17 Consult Nephrology Routine 09/01/23 08:15 Consult Behavioral Health Liaison Routine Ordered Studies 08/26/23 14:46 US venous doppler LE RT Stat 08/26/23 15:49 CT leg [CT tib/fib RT wo con] Stat Hospital Course (1) Cellulitis of right lower extremity: Resolved, remains afebrile, no leukocytosis, blood cxs no growth. 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 Nephrology recommends Bumex 2 mg daily at the time of discharge. Monitor intake and output-making urine, not volume overloaded, potassium normal, not acidotic. Has mature fistula in the LUE for impending hemodialysis Blood pressures are elevated but improved overall. He is now on hydralazine and amlodipine. Continue to follow BMP Losartan has been discontinued. (3) Restless leg syndrome: He was having significant restless leg symptoms during the day-changed to 1 mg bid during day and increased dose to 2mg hs at nighttime Iron studies are slightly low with transferrin saturation of 19%-nephrology ordered IV Venofer 200 mg daily x 5 days increased trazodone for sleep to 100mg hs (4) Depression: Patient tearful during every visit in the hospital. He admits to increased feelings of depression on most days even before he was in the hospital. He continues to grieve over the loss of his from several years ago. He denies suicidal ideations. He has difficulty with insomnia Increased sertraline to 50 mg daily Increase trazodone again to 100mg at bedtime for improved sleep Seen by Psychiatric Nurse liaison here in the hospital and I also encouraged him to pursue seeing a therapist as an outpatient (5) Chronic combined systolic and diastolic heart failure: Echocardiogram from 05/2023 with EF 45-50%, grade 2 diastolic dysfunction No current exacerbation. Monitor intake and output. Holding home Bumex and metolazone for renal failure while hospitalized. Will start Bumex 2 mg daily at discharge (6) Generalized weakness: Supportive care. Continue OT and PT while hospitalized-much improved and recommended to go home with home health (7) Hypokalemia: held KCl supplement with rising wire brush maker Potassium is normal off of diuretics follow BMP (8) CAD, multiple vessel: Stable. Continue current medical management with ASA, metoprolol, isosorbide . Statin was held while on daptomycin. h/o CABG (9) Diabetic peripheral 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: With hyperglycemia here likely secondary to decreased dose of NPH compared to his home dose of 30 units twice a day Most recent hemoglobin A1c uncontrolled at 8.8% in 05/2023 Increased NPH again to 20 units twice daily Continue Novolog SSI Continue ADA diet (10) Hypertension: BPs remain elevated-improving with increased dose of hydralazine 25mg po tid and addition of amlodipine continue amlodipine 5mg daily, Toprol, isosorbide Losartan has been discontinued due to chronic kidney disease stage IV. (11) Constipation: MiraLAX and Colace ordered, had bowel movement 08/31 Plan Home today, September 02, with home health services Total Time Total Time Spent Total Time Spent (In Minutes): 45 minutes Discharge Plan Discharge Items Patient Disposition: Home - Home Health Services Reason For Visit: RLE CELLULITIS, HYPOKALEMIA Discharge Diagnosis: Recurrent right lower extremity cellulitis, hypokalemia, acute on chronic kidney disease stage IV, iron deficiency anemia Non-emergency contact: Primary Care Provider Call non-emergency contact if: you have any medication questions and your symptoms worsen Follow-up/Referrals: Leah Wolf DO [Primary Care Provider] - Diet: Carb Consistent or DM2 and Heart Healthy Addtl Attending Provider Instructions: Bumex dosage has been decreased to 2 mg daily. Losartan has been discontinued Addtl Supervisor Coil Winding Provider Instructions: LAST ENDOCRINOLOGY RECOMMENDATIONS: 1.) Take Novolin-N 26 units with breakfast meal and Novolin-N 20 units in the evening. 2.) Even when your blood sugar level is within target, need to take Novolin- Regular Insulin 5-10 units with supper meal to proactively cover the after-meal blood sugar spike. Waiting until the blood sugar is elevated (chasing the high) is causing your blood sugar level to be too high. 3.) Can use Novolin-Regular Insulin scale when blood sugar levels are elevated; however, this should be used before meals only. And, it should never be used within 4-5 hours of a prior Novolin-Regular Insulin dose. If used before bed/late at night, take half as much. 4.) With Novolin-N and Novolin-Regular Insulin regimen, need to eat three meals a day. Do not skip meals. Need to eat at least something small- i.e. toast/peanut butter. Pending Studies at Discharge: No Stand-Alone Forms: [employer], Smoking Cessation Medications and DC Order Prescriptions: New hydralazine 25 mg Tablet 25 mg PO TID Qty: 90 0RF amlodipine [Norvasc] 5 mg Tablet 5 mg PO QAM Qty: 30 0RF ropinirole 1 mg Tablet 1 mg PO [id number] Qty: 60 0RF trazodone 100 mg Tablet 100 mg PO HS Qty: 30 0RF ropinirole 2 mg Tablet 2 mg PO HS Qty: 30 0RF aspirin 81 mg Tablet,Delayed Release (Dr/Ec) 81 mg PO QAM Qty: 0 0RF docusate sodium 100 mg Capsule 100 mg PO BID Qty: 0 0RF polyethylene glycol 3350 [Miralax] 17 gram Powder In Packet 17 g PO BID Qty: 0 0RF Continued (DME) OneTouch Ultra Blue Test Strip Strip See Dose Instructions .ROUTE .MEDSUPPLY Qty: 100 5RF Rx Instructions: use 1 strip to check glucose 4 times daily dx: E10.42, E10.65, E10.319 (DME) FreeStyle Farhad 2 Morrison Mis See Rx Instructions .ROUTE .MEDSUPPLY Qty: 1 0RF Rx Instructions: [place] directed [place] [place] pen needle, diabetic [BD Ultra-Fine Florence Pen Needle] 32 gauge x 5/32" needle See Rx Instructions .Route Qty: 400 3RF Rx Instructions: Inject insulin four times daily bumetanide 2 mg tablet 4 mg PO BID Qty: 120 6RF metolazone 5 mg tablet 5 mg PO Q OTHER DAY Qty: 45 3RF (DME) Power Wheelchair Device See Rx Instructions .Route Qty: 1 0RF Rx Instructions: Wheelchair repair atorvastatin [Lipitor] 80 mg tablet 80 mg PO QAM Qty: 90 1RF ropinirole 1 mg tablet 3 mg PO HS Qty: 270 1RF (DME) lancets [OneTouch UltraSoft Lancets] [facility] [place] See Dose Instructions .ROUTE .MEDSUPPLY Qty: 50 Rx Instructions: test 4 times dailiy ascorbic acid (vitamin C) 500 mg capsule 500 mg PO QAM (DME) Wheelchair (Powered) Device See Rx Instructions .ROUTE .MEDSUPPLY Qty: 1 0RF Rx Instructions: powered [place] [place] FreeStyle Farhad 2 Sensor Kit See Rx Instructions .ROUTE .MEDSUPPLY Qty: 2 5RF Rx Instructions: As directed. Dx: E10.319, E10.65, E10.42. Testing BS qid calcitriol 0.5 mcg capsule 1 mcg PO QAM Qty: 60 4RF ergocalciferol (vitamin D2) 1,250 mcg (50,000 unit) capsule 50,000 unit PO WEEKLY Qty: 12 0RF Rx Instructions: hasnt started yet sertraline 25 mg tablet 25 mg PO DAILY Qty: 30 5RF aspirin 81 mg tablet 81 mg PO DAILY ondansetron 4 mg tablet,disintegrating 4 mg PO Q8H PRN (Reason: nausea and vomiting) Qty: 30 5RF Rx Instructions: NOT STARTED latanoprost [Xalatan] 0.005 % Drops 1 drp OPB HS cholecalciferol (vitamin D3) [Vitamin D3] 50 mcg (2,000 unit) capsule 2,000 units PO QAM brimonidine 0.2 % drops 1 drp OPB BID Rx Instructions: BOTH EYES timolol maleate 0.5 % gel forming solution 1 drp OPB BID dorzolamide 2 % drops 1 drp OPB BID cyanocobalamin (vitamin B-12) 500 mcg Tablet 1,000 mcg PO QAM Qty: 0 0RF Novolin N NPH U-100 Insulin 100 unit/mL suspension 30 unit subcut BID Qty: 10 0RF Humulin R Regular U-100 Insuln 100 unit/mL solution 1 sliding scale dose subcut USEASDIRECTD Qty: 10 0RF Rx Instructions: 11AM metoprolol succinate 25 mg Tablet Extended Release 24 Hr 25 mg PO QAM Qty: 30 0RF isosorbide mononitrate 30 mg Tablet Extended Release 24 Hr 30 mg PO QAM Qty: 30 0RF potassium chloride 20 mEq Tablet,Er Particles/Crystals 10 meq PO QAM Qty: 30 0RF Rx Instructions: Patient states he cuts 20meq in half Discontinued trazodone 50 mg tablet 50 mg PO HS Qty: 30 5RF cephalexin 500 mg capsule 500 mg PO Q6H Qty: 40 0RF Rx Instructions: Patient cant remember if he has started cephalexin 500mg yet losartan 50 mg Tablet 50 mg PO QAM Qty: 30 0RF Discharge Orders: Discharge Order (Routine); Ordered 09/03/23 Ordered By: Gregorio Avalos Admission Data Admit Date/Time: 08/26/23 18:08 Attending Provider: Gregorio Avalos Admit Provider: Jake Ware Primary Care Provider: Leah Wolf Other Providers: Jake Ware; Shakira Richardson Coding Level of Care Code 59872 INP/OBS DISCH >30 MIN Diagnoses Cellulitis of right lower extremity L03.115 Chronic kidney disease, stage 4 (severe) N18.4 Restless leg syndrome G25.81 Depression F32.A Chronic combined systolic and diastolic heart failure I50.42 Generalized weakness R53.1 Hypokalemia E87.6 CAD, multiple vessel I25.10 Diabetic peripheral 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 E10.42 Primary hypertension I10 Hypertension type: primary hypertension Constipation K59.00
== END 2023-09-03 12:03 | disposition home health service (06) | DRG 603 ==
LOC: ED 14:39 → EDINP 18:08 → SUATTDRO 18:08 → 2N 22:38

== ENCOUNTER 2023-09-09 11:45 | Inpatient (IN) ==
[2023-09-09 13:11] LABS: Basophils # (auto) 0.03 K/uL (0.00-0.20); Basophils % (auto) 0.4 %; Eosinophils # (auto) 0.16 K/uL (0.00-0.50); Eosinophils % (auto) 1.9 %; Hematocrit (blood only) 35.4 % (42.0-52.0); Hemoglobin 11.4 g/dl (14.0-18.0); Immature Granulocytes # (auto) 0.03 K/uL (0.01-0.20); Immature Granulocytes % (auto) 0.4 %; Lymphocytes # (auto) 0.58 K/uL (1.20-3.40); Mean Corpuscular Hemoglobin 31.4 pg (25.0-34.0); Mean Corpuscular Hgb Conc 32.2 g/dL (32.0-36.0); Mean Corpuscular Volume 97.5 fL (80.0-100.0); Monocytes # (auto) 0.56 K/uL (0.11-0.59); Monocytes % (auto) 6.7 %; Neutrophils # (auto) 6.97 K/uL (1.40-6.50); Neutrophils % (auto) 83.6 %; Platelet Count 144 K/uL (130-400); RDW Coefficient of Variation 16.8 % (11.5-14.5); RDW Standard Deviation 59.1 fL (36.4-46.3); Red Blood Count 3.63 M/uL (4.70-6.10); White Blood Count 8.33 K/ul (4.8-10.8)
[2023-09-09 13:29] LABS: Alanine Aminotransferase 31 U/L (7-52); Albumin Globulin Ratio 1.2 (0.9-2); Albumin Level 3.8 gm/dl (3.4-5.0); Alkaline Phosphatase 71 U/L (34-104); Anion Gap 7 (3-11); Aspartate Aminotransferase 24 U/L (13-39); BUN Creatinine Ratio 24.3 (10-20); Bilirubin,Total 0.7 mg/dl (0.2-1.0); Blood Urea Nitrogen 54 mg/dl (6-23); Calcium 9.2 mg/dl (8.6-10.3); Carbon Dioxide 26 mmol/L (21-32); Chloride 106 mmol/L (98-107); Est GFR (African American) 32.6 ml/min; Est GFR (Non-African American) 28.1 ml/min; Globulin 3.1 gm/dl (2.5-4.0); Glucose 183 mg/dl (70-99(Fasting)); Magnesium 2.2 mg/dl (1.7-2.4); Potassium 4.9 mmol/L (3.5-5.1); Sodium 139 mmol/L (136-145); Total Protein 6.9 gm/dl (6.0-8.3)
[2023-09-09 13:32] LABS: INR 1.2 (0.9-1.1); Partial Thromboplastin Ratio 0.8; Partial Thromboplastin Time 22 Seconds (21-31); Prothrombin Time 12.6 Seconds (9.0-12.0)
[2023-09-09 13:33] LABS: Appearance Urine Clear (Clear); Bacteria Urine Automated None Seen (None Seen); Bilirubin Urine Negative (Negative); Blood Urine 1+ (Negative); Color Urine Yellow; Epithelial Cell Urine Auto 0-2 /hpf (0-2); Glucose Urine UA 1+ (Negative); Ketones Urine Negative (Negative); Leukocyte Esterase Urine Negative (Negative); Nitrite Urine Negative (Negative); Protein Urine 3+ (Negative); RBC Urine Automated 0-2 /hpf (0-2); Specific Gravity Urine 1.012 (1.000-1.030); Urobilinogen Urine Negative (Negative); WBC Urine Automated 0-5 /hpf (0-5); pH Urine 5.5 (4.5-7.5)
[2023-09-09 13:33] LABS: Troponin I High Sensitivity 37.6 pg/ml (0-20)
--- NOTE | 2023-09-09 14:12 | XRay Report ---
XR chest 1V portable HISTORY: Sepsis COMPARISON: Chest 08/26/2023. FINDINGS: No pneumothorax. There are poststernotomy changes. Cardiomegaly, mild interstitial pulmonar y edema, and small bilateral pleural effusions persist. Bibasilar densities are also unchanged and fa vor atelectasis. No acute fractures identified. There are poststernotomy changes. IMPRESSION: No significant change in the cardiomegaly, mild interstitial pulmonary edema, and small bilateral ple ural effusions. ACT 112: Negative or not required by law. Electronically signed by: Abilio Soto M.D. 09/09/2023 2:11 PM
--- NOTE | 2023-09-09 14:32 | History & Physical Report ---
Date of Service September 09, 2023 Assessment & Plan (1) Hypoxia: Plan: -Admit to med/tele on pulse oximetry -Currently hemodynamically stable, stable on 2L NC, and non-toxic appearing -Presented back to the ED today with ongoing generalized weakness, SOB/FRIEDMAN/orthopnea, and RLE swelling/erythema/pain -Patient's weight is up approximately 9kg from his PCP appointment on 09/07 compared to discharge on 09/02 -Noted to have interstitial pulmonary edema, BL pleural effusions -Suspect his hypoxia is due to acute exacerbation of chronic HFrEF from his reduced dose of bumex on last discharge and likely medical non-compliance at home as he needs additional assistance >Patient was instructed on last DC to slowly increase his dose of bumex from 2mg daily, to 4mg daily, and even 4 mg BID if needed for swelling/weight gain, but it does not appear that he did this at home -Denies pleuritic chest pain, has been hemodynamically stable with HR WNL, low suspicion for PE at this time -S/P 2 mg IV bumex in the ED, will continue with 2mg IV BID17 for now -Monitor daily weights, renal function, and electrolytes -Intake/output QSE -Incentive spirometry, prn O2 to keep SpO2 at or above 92% -If needed, can consult nephrology, but renal function is currently stable -SQ heparin for DVT PPX -HH/DMII diet with 2gm sodium and 1800 mL fluid restriction -AM CBC, CMP, mag, PT/INR (2) Diabetes, type I: Plan: -Monitor BSG ACHS, goal is 110-160 -Will resume 20 units NPH BID like last admission -Start CF 50 and CR of 15 ACHS -Adjust regimen as needed (3) Right leg swelling: Plan: -ED had concern that patient had recurrent cellulitis of the RLE today -On exam, the RLE is much improved compared to last admission, see pictures in last H&P for comparison -Patient has been afebrile, WBC and procal WNL -RLE swelling/erythema appears consistent with venous stasis -S/P one dose of cefepime in the ED, will hold additional abx for now and monitor for improvement with IV diuresis -Monitor for fever and monitor blood cultures for final results (4) Elevated troponin: Plan: -Initial high sen trop elevated at 37 -No chest pain, no acute ST segment or T-wave changes on ECG -Very similar presentation as last admission as likely related to demand from CHF exacerbation -2 hour repeat high sen trop is in process -Continue to monitor on tele and continue diuresis (5) CAD, multiple vessel: Plan: -Continue aspirin and statin (6) Generalized weakness: Plan: -Likely a combination of his multiple chronic comorbidities, depression, and deconditioning -Doses of Sertraline and Trazodone were increased last admission, patient denies SI or HI -No sign of infection at this time as RLE is much improved compared to last admission, WBC is WNL, procal negative, has been afebrile -Will consult PT/OT, patient should likely go to inpatient rehab on DC -Fall/aspiration precautions (7) Chronic kidney disease, stage 4 (severe): Plan: -Cr is 2.22, much improved compared to last admission -Monitor renal function closely while on BID IV bumex -Avoid nephrotoxic agents Plan The patient was discussed with Dr. Woodward at the time of the admission History of Present Illness Primary Care Provider: Leah Wolf DO [place] is a 72 year old male with a PMH significant for stage 4 CKD with Nephrotic syndrome, DMI, Cardiomyopathy, CAD s/p CABG x 4 (2011 at [facility] [place] consisting of ZURITA to LAD, SVG to OM and sequential graft to diagonal, SVG to RCA PDA), HFrEF(Mildly reduced LVEF, grade II diastolic dysfunction), S/P left BKA, previous CVA who presented to the [facility] ED on 09/09/23 with complaints of He was noted to be hypertensive at 178/89 and hypoxic at 84% on RA but otherwise stable. Labs were significant for an INR of 1.2, stable renal function/electrolytes, initial high sen trop of 37, UA with 3+ protein, 1+ glucose, 1+ blood, 3-5 hyaline casts. CXR was read as No significant change in the cardiomegaly, mild interstitial pulmonary edema, and small bilateral pleural effusions.. Prior to admission the patient was given a dose of cefepime and 2mg IV bumex. At the time of the exam the patient was sitting on the side of his bed in no acute distress, he is disheveled and appears to have poor hygiene. States that he was supposed to have been prescribed oral antibiotics on last admission but the pharmacy never delivered them to his home. Was seen at his PCP's office on 09/06, they reportedly prescribed him abx as well but he was unable to read the labels on the recently delivered pill bottles so he was not taking his new medications. His vision is chronically poor, denies acute changes. Has had progressive SOB/FRIEDMAN and orthopnea since being discharged home. Is generally weak and feels he is deconditioned. His RLE is painful like his last admission for cellulitis. Denies recent fever, chills, chest pain, hemoptysis, abd pain, nausea, vomiting, diarrhea, dysuria, hematuria, melena, and recent falls. He is will to consider home PT/OT or an inpatient rehab stay at the time of discharge. He is a full code and his son is his POA. Patient was recently admitted to [facility] from 08/25-09/02 for cellulitis of the RLE, ABDOULAYE on CKD. He was treated with IV cefepime and daptomycin for 5 days and then converted to Augmentin with his last dose of 09/02/23. His diuretics were held on admission and Neprology was consult. He was eventually discharged on 2mg PO Bumex daily, and was newly prescribed hydralazine, amlodipine, trazodone, requip, aspirin, and bowel regimen on discharge. See DC summary from 09/03/23 for full details. Please refer to Dr. Woodward's attestation for any changes to the treatment plan Allergies Allergy/AdvReac Type Severity Reaction Status Date / Time ofloxacin [From Floxin] Allergy Intermediate itching Verified 09/09/23 15:38 Quinolones Allergy Intermediate Itchiness Verified 09/09/23 15:38 sulfamethoxazole Allergy Intermediate Rash Verified 09/09/23 15:38 trimethoprim Allergy Intermediate Rash Verified 09/09/23 15:38 Home Medications Medication Instructions Recorded Confirmed Type latanoprost 0.005 % eye drops 1 drp OPB HS 12/27/17 09/09/23 History (Xalatan) cholecalciferol (vitamin D3) 50 2,000 units PO QAM 11/10/19 09/09/23 History mcg (2,000 unit) capsule (Vitamin D3) brimonidine 0.2 % eye drops 1 drp OPB BID 12/07/20 09/09/23 History dorzolamide 2 % eye drops 1 drp OPB BID 12/07/20 09/09/23 History timolol maleate 0.5 % eye gel 1 drp OPB BID 12/07/20 09/09/23 History forming solution ascorbic acid (vitamin C) 500 mg 500 mg PO QAM 02/19/21 09/09/23 History capsule calcitriol 0.5 mcg capsule 1 mcg (2 x 0.5 mcg) PO QAM #60 caps 01/25/23 09/09/23 Rx insulin regular human 100 unit/mL 1 sliding scale dose subcut 04/19/23 09/09/23 Rx injection solution (Humulin R USEASDIRECTD #10 mL Regular U-100 Insulin) cyanocobalamin (vitamin B-12) 500 1,000 mcg (2 x 500 mcg) PO QAM #0 05/04/23 09/09/23 Rx mcg tablet tabs ergocalciferol (vitamin D2) 1,250 50,000 unit PO WEEKLY #12 caps 05/27/23 09/09/23 Rx mcg (50,000 unit) capsule isosorbide mononitrate 30 mg 30 mg PO QAM #30 tabs 06/04/23 09/09/23 Rx tablet,extended release 24 hr metoprolol succinate 25 mg 25 mg PO QAM #30 tabs 06/04/23 09/09/23 Rx tablet,extended release 24 hr potassium chloride 20 mEq 10 meq (1/2 x 20 mEq) PO QAM #30 06/16/23 09/09/23 Rx tablet,extended release(part/cryst) tabs metolazone 5 mg tablet 5 mg PO Q OTHER DAY #45 tabs 06/25/23 09/09/23 Rx atorvastatin 80 mg tablet (Lipitor) 80 mg PO QAM #90 tabs 08/11/23 09/09/23 Rx ropinirole 1 mg tablet 3 mg (3 x 1 mg) PO HS #270 tabs 08/11/23 09/09/23 Rx ondansetron 4 mg disintegrating 4 mg PO Q8H PRN nausea and 08/23/23 09/09/23 Rx tablet vomiting #30 tabs amlodipine 5 mg tablet (Norvasc) 5 mg PO QAM #30 tabs 09/03/23 09/09/23 Rx aspirin 81 mg tablet,delayed 81 mg PO QAM #0 tabs 09/03/23 09/09/23 Rx release docusate sodium 100 mg capsule 100 mg PO BID #0 caps 09/03/23 09/09/23 Rx hydralazine 25 mg tablet 25 mg PO TID #90 tabs 09/03/23 09/09/23 Rx polyethylene glycol 3350 17 gram 17 g PO BID #0 ea 09/03/23 09/09/23 Rx oral powder packet (Miralax) ropinirole 1 mg tablet 1 mg PO KLY452 #60 tabs 09/03/23 09/09/23 Rx ropinirole 2 mg tablet 2 mg PO HS #30 tabs 09/03/23 09/09/23 Rx trazodone 100 mg tablet 100 mg PO HS #30 tabs 09/03/23 09/09/23 Rx bumetanide 2 mg tablet 2 mg PO DAILY #90 tabs 09/08/23 09/09/23 Rx doxycycline hyclate 100 mg tablet 100 mg PO BID 10 days #20 tabs 09/08/23 09/09/23 Rx insulin NPH isoph U-100 human 100 20 unit (0.2 mL) subcut BID #10 mL 09/08/23 09/09/23 Rx unit/mL subcutaneous suspension (Novolin N NPH U-100 Insulin isophane) sertraline 50 mg tablet 50 mg PO DAILY #90 tabs 09/08/23 09/09/23 Rx tramadol 50 mg tablet 50 mg PO DAILY #30 tabs 09/08/23 09/09/23 Rx Past Med/Surg History Problem List (Updated 09/09/23 @ 15:14 by Mono Escobar PA-C) Right leg swelling Diabetes, type I Constipation Hypokalemia Generalized weakness Cellulitis of right lower extremity Cellulitis (Acute) Chronic kidney disease, stage 4 (severe) Nausea Abrasion of multiple sites of right lower extremity Chronic combined systolic and diastolic heart failure Hypoxia (Acute) Cardiomyopathy Chronic seborrheic dermatitis Status post below knee amputation of left lower extremity Depression Generalized pruritus Grief History of colon polyps Impotence, organic Vitamin D deficiency Tubular adenoma of colon History of CVA (cerebrovascular accident) PT DENIES Glaucoma Peripheral positional vertigo Keloid scar of skin (Acute) Lower extremity edema (Chronic) Insomnia Anemia of chronic disease Nephrotic syndrome Diabetic nephropathy CAD, multiple vessel s/p CABG x4 (2011) Diabetic peripheral 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 Diverticulosis hx Dyslipidemia Restless leg syndrome Mild obstructive sleep apnea "Mild" > no device 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 DDD (degenerative disc disease), lumbar Medical History Type 2 diabetes mellitus Ventricular bigeminy 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, with long-term current use of insulin (HFpEF) heart failure with preserved ejection fraction Acute kidney injury superimposed on chronic kidney disease Pressure ulcer of BKA stump, stage 3 Influenza A virus subtype H1 2009 pandemic strain present Slow to wake up after anesthesia Wound of lower extremity Diabetes, type I Hypertension GERD (gastroesophageal reflux disease) History of TIA (transient ischemic attack) Surgical History Status post below knee amputation of left lower extremity S/P arteriovenous (AV) fistula creation History of esophagogastroduodenoscopy (EGD) History of colonoscopy S/P lumbar laminectomy S/P foot surgery S/P eye surgery S/P CABG x 4 History of lumbar discectomy History of tonsillectomy Family History Father , age 78 with prostate cancer Colorectal cancer Cardiovascular disease Diabetes Prostate cancer Grandmother (Maternal) Diabetes Mother , age 54 of throat cancer Throat cancer Denies family history of Ovarian cancer Myocardial infarction Breast cancer Social History Smoking Status: Never smoker Second Hand Exposure: No; Do You Dip or Chew Tobacco: No; Tobacco Cessation Education Requested by Patient: No Hx Alcohol Use: No Hx Substance Use: No Preferred Language: Arabic Communication Ability: Effective Visual Impairment: No Limitations Hearing Ability: Normal Economic Analysis Director Required: No Beliefs That Will Affect Care: None marital status: / marital status details: lost August 2021 Current Living Situation: Alone current occupational status: retired current occupation: How many Children do You have: 2 Other Information That Helps Us Care for You: Yes (moving to [place]) other: Retired age [age]2. Feels Safe at Home: No Is there a partner from a previous relationship who is making you feel unsafe now?: No Any Concerns about Your Family Situation: No Would You Like to Speak to Someone About Your Situation: No Safety Concerns: Feels Safe At This Time and Afraid for Self Childhood Exposure to Second-Hand Smoke: No Diet: regular caffeine: No during the past year weight has: remained stable Dental Care, Regularly: Yes Physical Activity Frequency: Other Physical Activity Frequency Comment: limited d/t disability Seatbelt Use: always Sunscreen Use: Yes Assistive Devices: Walker Physical Exam 2 Physical Exam: Physical Exam: General: In no acute distress, stated age, chronically ill appearing with poor hygiene HEENT: Normocephalic, atraumatic, no scleral icterus, pupils around round, symmetrical, and reactive to light, moist mucus membranes, +JVD, trachea midline, no thyromegaly Chest/Pulm: No respiratory distress, symmetrical chest expansion, crackles noted in the BL lower and mid lung sterling, upper lung sterling are CTA Cardiac: RRR, no murmurs noted Abdomen: Negative for ascites and bruising, normoactive bowel sounds, soft, non-tender to palpation throughout Musculoskeletal: Previous left BKA, otherwise no new trauma noted Extremities: RLE noted to have swelling and erythema, intact DP pulse on the RLE Skin: See picture attached below Neuro: Alert and oriented to person, place, month, year, and president, no focal defects, no tremors noted Psych: No acute distress, flat affect, calm and cooperative during the exam Results & Data Results & Data Vital Signs (Past 12 Hours) Vital Signs Temp Pulse Pulse Resp BP BP Pulse Ox 09/09/23 14:00 84 L 09/09/23 14:00 81 09/09/23 13:58 94 09/09/23 13:58 78 20 178/89 H 94 09/09/23 12:12 09/09/23 12:09 36.8 C 87 18 175/82 H 2 L O2 Del Method O2 Flow Rate 09/09/23 14:00 Room Air 09/09/23 14:00 09/09/23 13:58 Room Air 09/09/23 13:58 Nasal Cannula 2 09/09/23 12:12 Nasal Cannula 2 09/09/23 12:09 Nasal Cannula Laboratory Results Abnormal lab results 09/09/23 09/09/23 Range/Units 12:39 12:49 RBC 3.63 L (4.70-6.10) M/uL Hgb 11.4 L (14.0-18.0) g/dl Hct 35.4 L (42.0-52.0) % RDW Std Deviation 59.1 H (36.4-46.3) fL RDW Coeff of Jose 16.8 H (11.5-14.5) % MPV 13.0 H (9.4-12.4) fL Neut # (Auto) 6.97 H (1.40-6.50) K/uL Lymph # (Auto) 0.58 L (1.20-3.40) K/uL PT 12.6 H (9.0-12.0) Seconds INR 1.2 H (0.9-1.1) BUN 54 H (6-23) mg/dl Creatinine 2.22 H (0.6-1.4) mg/dl BUN/Creatinine Ratio 24.3 H (10-20) Glucose 183 H (70-99(Fasting)) mg/dl Troponin I High Sens 37.6 H (0-20) pg/ml Urine Protein 3+ H (Negative) Urine Glucose (UA) 1+ H (Negative) Urine Blood 1+ H (Negative) U Hyaline Cast (Auto) 3-5 H (0-2) /lpf Diagnostic Findings Chest X-Ray 09/09/23 12:12 XR chest 1V portable HISTORY: Sepsis COMPARISON: Chest 08/26/2023. FINDINGS: No pneumothorax. There are poststernotomy changes. Cardiomegaly, mild interstitial pulmonary edema, and small bilateral pleural effusions persist. Bibasilar densities are also unchanged and favor atelectasis. No acute fractures identified. There are poststernotomy changes. IMPRESSION: No significant change in the cardiomegaly, mild interstitial pulmonary edema, and small bilateral pleural effusions. ACT 112: Negative or not required by law. Electronically signed by: Abilio Soto M.D. 09/09/2023 2:11 PM ECG Additional Comments: Sinus rhythm with 1st degree A-V block Right bundle branch block Septal infarct (cited on or before 09-SEP-2023) Abnormal ECG When compared with ECG of 26-AUG-2023 14:52, QRS axis Shifted right Serial changes of Septal infarct Present Code Status & VTE Plan Code Status Full code VTE Prophylaxis Plan VTE Prophylaxis will be ordered: Yes Supervising Physician Co-Signing Physician Notes 72 yo male with h/o CHF, chronic HFrEF , DM type 2, PAD, left BKA, CKD st 3 recent admission for cellulitis, presents with acute respiratory failure with hypoxia probably due to CHF exacerbation, started on IV Bumex , monitor intake/output, daily weight, oxygen suppl, doubt cellulitis, needs wound care , continue other home meds PG Care Time/CCT Total # of Minutes Spent Total Time Spent with Patient: Total time spent is greater than 50% in coordination of care (as documented) at patient's floor/unit and/or counseling patient: Coding [place] [address] INT INP/OBS CARE 3/75MIN Patient Type Established Medical Decision Making High Complexity Diagnoses Hypoxia R09.02 Diabetes, type I E10.9 Right leg swelling M79.89 Elevated troponin R79.89 CAD, multiple vessel I25.10 Generalized weakness R53.1 Chronic kidney disease, stage 4 (severe) N18.4
--- NOTE | 2023-09-09 14:38 | Emergency Department Note ---
Impression & Plan Hypoxia, Cellulitis, CHF (congestive heart failure), SOB (shortness of breath) ED Provider Note NAME: PATRICK HAAS AGE: 72 SEX: M : 1950 ARRIVES VIA: Ambulance INFORMANT: [Patient][nursing] ED PROVIDER(S): [Vishal Rosenbaum MD] CHIEF COMPLAINT: Short of breath HISTORY OF PRESENT ILLNESS: The patient is a 72-year-old male who presents to the ER with shortness of breath. He was in the hospital recently for a right lower extremity cellulitis. He believes he was to be on antibiotics at discharge but, has never received any delivery from his pharmacy. Patient states that he does have nursing coming to the house every other day to change his dressing. The patient states that today, he was short of breath and there was concern that he was redeveloping his cellulitis in the right lower extremity. He did note a cold sensation but is not sure if he had a fever. He does especially note exertional dyspnea. The patient is on diuretics, he states he is taking his diuretics as prescribed. As per nursing staff, the patient's O2 saturation was 84% upon arrival. He was placed on nasal cannula oxygen. PMHx/PSHx/Social Hx: See Below PHYSICAL EXAM: GENERAL: Patient is in no acute distress. HEENT: No acute trauma, normocephalic atraumatic, mucous membranes moist, no nasal congestion. NECK: No stridor, no adenopathy, no meningismus, trachea is midline. LUNGS: Crackles to both lungs, especially on the left. No wheezing or obvious respiratory distress. HEART: Without murmurs gallops or rubs, regular rate and rhythm. ABDOMEN: Soft, nontender, no peritonitis. EXTREMITIES: No cyanosis. The patient does have right lower extremity erythema. He has some healing wounds to the right lower leg from the knee to the ankle. There is some erythema to the mid distal anterior right leg with some warmth. He has a left below the knee amputation. NEUROLOGIC: Oriented x 3, no acute motor or sensory deficits, no focal weakness. SKIN: No jaundice, no diaphoresis. DIFFERENTIAL DIAGNOSIS: Pneumonia bronchitis, CHF, fluid overload, anemia, electrolyte imbalance, cellulitis, among others. EMERGENCY DEPARTMENT PROCEDURES: MEDICAL DECISION MAKING: There is no leukocytosis. There is a slight anemia with a hemoglobin of 11.4, the patient carries a history of anemia. There was a normal platelet count. INR slightly high at 1.2, PTT is normal. There was some renal insufficiency but this appears baseline when looking back at previous testing. Lactic acid level is not elevated making severe sepsis less likely. No concerning liver enzyme elevation. BNP is elevated consistent with fluid overload. ECG shows a first- degree AV block and a sinus rhythm, no obvious acute ischemia. Cardiac enzyme testing x 1 was slightly elevated, this elevation is potentially secondary to cardiac injury or just mismatch from his hypoxia. Chest x-ray shows cardiomegaly and CHF. On exam, the patient was hypoxic without O2 supplementation. He did have a subtle right lower extremity cellulitis. The patient was aggressively managed. He was maintained on nasal cannula oxygen. He was given 2 mg of IV Bumex for fluid overload/CHF. He received IV cefepime, 2 g for antibiotic coverage. Patient is in need of a hospital stay. He is fluid overloaded, hypoxic and in CHF. He has cellulitis of the right lower extremity. I did speak to the patient at length, I did speak with case management, the on-call hospitalist was consulted. Prior/Outside records/notes reviewed: Today's EMS notes describing his presentation and transport to the hospital. ECG per my interpretation: Indication was shortness of breath. The ECG shows a sinus rhythm with a first-degree AV block. The rate is 88. There is a right bundle branch block. There is a potential old septal infarct. There is no acute ST elevation, there are no PVCs. The QTc is 479. Continuous Cardiac Monitoring per my interpretation: An order was placed for continuous cardiac monitoring. The monitor shows a rate of 81 with sinus rhythm with a first-degree block. Imaging/x-ray results per my interpretation: Chest x-ray shows cardiomegaly and CHF. I see no pneumothorax. Chronic Medical/Social conditions affecting care: Advanced age, left below the knee amputation Care/Management discussed with: Case management, the on-call hospitalist. Level of care consideration(s): After review of the information above and other included data: --I believe the patient requires escalation of care to admission Critical Care Note: I have personally spent 44 minutes of critical care time in the direct management of this patient. This includes bedside care, interpretation of diagnostic studies, and testing, discussion with consultants, patient, and family members, and other required patient management activities. This 44 minutes is in excess of all separately billable procedures. DISPOSITION: Admission Past Med/Surg History Problem List (Updated 09/09/23 @ 20:36 by Vishal Rosenbaum MD) SOB (shortness of breath) (Acute) CHF (congestive heart failure) (Acute) Cellulitis (Acute) Hypoxia (Acute) Right leg swelling Diabetes, type I Constipation Hypokalemia Generalized weakness Cellulitis of right lower extremity Cellulitis (Acute) Chronic kidney disease, stage 4 (severe) Nausea Abrasion of multiple sites of right lower extremity Chronic combined systolic and diastolic heart failure Hypoxia (Acute) Cardiomyopathy Chronic seborrheic dermatitis Status post below knee amputation of left lower extremity Depression Generalized pruritus Grief History of colon polyps Impotence, organic Vitamin D deficiency Tubular adenoma of colon History of CVA (cerebrovascular accident) PT DENIES Glaucoma Peripheral positional vertigo Keloid scar of skin (Acute) Lower extremity edema (Chronic) Insomnia Anemia of chronic disease Nephrotic syndrome Diabetic nephropathy CAD, multiple vessel s/p CABG x4 (2011) Diabetic peripheral 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 Diverticulosis hx Dyslipidemia Restless leg syndrome Mild obstructive sleep apnea "Mild" > no device 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 DDD (degenerative disc disease), lumbar Medical History Type 2 diabetes mellitus Ventricular bigeminy 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, with long-term current use of insulin (HFpEF) heart failure with preserved ejection fraction Acute kidney injury superimposed on chronic kidney disease Pressure ulcer of BKA stump, stage 3 RESOLVED Influenza A virus subtype H1 2009 pandemic strain present Slow to wake up after anesthesia Wound of lower extremity RLE wound "improved" per 01/27/21 wound clinic visit ([facility]); surgeon aware of patient's wound hx per 01/2021 office visit note; "only has a little scab there now, keeps it covered to protect it." Hypertension GERD (gastroesophageal reflux disease) History of TIA (transient ischemic attack) ~2009>over his left eye, no residual symptoms Surgical History Status post below knee amputation of left lower extremity S/P arteriovenous (AV) fistula creation History of esophagogastroduodenoscopy (EGD) History of colonoscopy S/P lumbar laminectomy S/P foot surgery S/P eye surgery S/P CABG x 4 History of lumbar discectomy History of tonsillectomy Family History Father , age 78 with prostate cancer Colorectal cancer Cardiovascular disease Diabetes Prostate cancer Grandmother (Maternal) Diabetes Mother , age 54 of throat cancer Throat cancer Denies family history of Ovarian cancer Myocardial infarction Breast cancer Social History Smoking Status: Never smoker Second Hand Exposure: No; Do You Dip or Chew Tobacco: No; Tobacco Cessation Education Requested by Patient: No Hx Alcohol Use: No Hx Substance Use: No Preferred Language: Lao Communication Ability: Effective Visual Impairment: No Limitations Hearing Ability: Normal Rejoiner Required: No Beliefs That Will Affect Care: None marital status: / marital status details: lost August 2021 Current Living Situation: Alone current occupational status: retired current occupation: How many Children do You have: 2 Other Information That Helps Us Care for You: Yes (moving to [place]) other: Retired age 61-1/2. Feels Safe at Home: No Is there a partner from a previous relationship who is making you feel unsafe now?: No Any Concerns about Your Family Situation: No Would You Like to Speak to Someone About Your Situation: No Safety Concerns: Feels Safe At This Time and Afraid for Self Childhood Exposure to Second-Hand Smoke: No Diet: regular caffeine: No during the past year weight has: remained stable Dental Care, Regularly: Yes Physical Activity Frequency: Other Physical Activity Frequency Comment: limited d/t disability Seatbelt Use: always Sunscreen Use: Yes Assistive Devices: Walker Allergies Allergies Allergy/AdvReac Type Severity Reaction Status Date / Time ofloxacin [From Floxin] Allergy Intermediate itching Verified 09/09/23 15:38 Quinolones Allergy Intermediate Itchiness Verified 09/09/23 15:38 sulfamethoxazole Allergy Intermediate Rash Verified 09/09/23 15:38 trimethoprim Allergy Intermediate Rash Verified 09/09/23 15:38 Home Meds Home Medications Medication Instructions Recorded Confirmed latanoprost 0.005 % eye drops 1 drp OPB HS 12/27/17 09/09/23 (Xalatan) cholecalciferol (vitamin D3) 50 2,000 units PO QAM 11/10/19 09/09/23 mcg (2,000 unit) capsule (Vitamin D3) brimonidine 0.2 % eye drops 1 drp OPB BID 12/07/20 09/09/23 dorzolamide 2 % eye drops 1 drp OPB BID 12/07/20 09/09/23 timolol maleate 0.5 % eye gel 1 drp OPB BID 12/07/20 09/09/23 forming solution ascorbic acid (vitamin C) 500 mg 500 mg PO QAM 02/19/21 09/09/23 capsule Previous Rx's Medication Instructions Recorded calcitriol 0.5 mcg capsule 1 mcg (2 x 0.5 mcg) PO QAM #60 caps 01/25/23 insulin regular human 100 unit/mL 1 sliding scale dose subcut 04/19/23 injection solution (Humulin R USEASDIRECTD #10 mL Regular U-100 Insulin) cyanocobalamin (vitamin B-12) 500 1,000 mcg (2 x 500 mcg) PO QAM #0 05/04/23 mcg tablet tabs ergocalciferol (vitamin D2) 1,250 50,000 unit PO WEEKLY #12 caps 05/27/23 mcg (50,000 unit) capsule isosorbide mononitrate 30 mg 30 mg PO QAM #30 tabs 06/04/23 tablet,extended release 24 hr metoprolol succinate 25 mg 25 mg PO QAM #30 tabs 06/04/23 tablet,extended release 24 hr potassium chloride 20 mEq 10 meq (1/2 x 20 mEq) PO QAM #30 06/16/23 tablet,extended release(part/cryst) tabs metolazone 5 mg tablet 5 mg PO Q OTHER DAY #45 tabs 06/25/23 atorvastatin 80 mg tablet (Lipitor) 80 mg PO QAM #90 tabs 08/11/23 ropinirole 1 mg tablet 3 mg (3 x 1 mg) PO HS #270 tabs 08/11/23 ondansetron 4 mg disintegrating 4 mg PO Q8H PRN nausea and 08/23/23 tablet vomiting #30 tabs amlodipine 5 mg tablet (Norvasc) 5 mg PO QAM #30 tabs 09/03/23 aspirin 81 mg tablet,delayed 81 mg PO QAM #0 tabs 09/03/23 release docusate sodium 100 mg capsule 100 mg PO BID #0 caps 09/03/23 hydralazine 25 mg tablet 25 mg PO TID #90 tabs 09/03/23 polyethylene glycol 3350 17 gram 17 g PO BID #0 ea 09/03/23 oral powder packet (Miralax) ropinirole 1 mg tablet 1 mg PO ISS676 #60 tabs 09/03/23 ropinirole 2 mg tablet 2 mg PO HS #30 tabs 09/03/23 trazodone 100 mg tablet 100 mg PO HS #30 tabs 09/03/23 bumetanide 2 mg tablet 2 mg PO DAILY #90 tabs 09/08/23 doxycycline hyclate 100 mg tablet 100 mg PO BID 10 days #20 tabs 09/08/23 insulin NPH isoph U-100 human 100 20 unit (0.2 mL) subcut BID #10 mL 09/08/23 unit/mL subcutaneous suspension (Novolin N NPH U-100 Insulin isophane) sertraline 50 mg tablet 50 mg PO DAILY #90 tabs 09/08/23 tramadol 50 mg tablet 50 mg PO DAILY #30 tabs 09/08/23 Results & Data (ED) Vital Signs Vital Signs - 24 hr 09/09/23 12:09 09/09/23 12:12 09/09/23 13:56 Temperature 36.8 C Temperature Source Temporal Artery Scan Pulse Rate 87 Pulse Rate [Apical] Pulse Rate from SpO2 Sensor Respiratory Rate 18 Respiratory Effort / Characteristics Non-Labored Respiratory Depth Normal Blood Pressure 175/82 H 178/89 H Blood Pressure [Right Arm] Blood Pressure Mean 113 139 Blood Pressure Mean [Right Arm] Pulse Oximetry 2 L Oxygen Delivery Method Nasal Cannula Nasal Cannula Oxygen Flow Rate 2 Sepsis Recent Fever Within 48 Hours No Sepsis New/Unexplained Change in Mental Status No Sepsis Action Taken by Nursing No Action Required Pulse Oximetry Post Tiitration 98 09/09/23 13:57 09/09/23 13:58 09/09/23 13:58 Temperature Temperature Source Pulse Rate 75 Pulse Rate [Apical] 78 Pulse Rate from SpO2 Sensor 77 Respiratory Rate 12 20 Respiratory Effort / Characteristics Non-Labored Spontaneous Respiratory Depth Normal Blood Pressure Blood Pressure [Right Arm] 178/89 H Blood Pressure Mean Blood Pressure Mean [Right Arm] 118 Pulse Oximetry 97 94 94 Oxygen Delivery Method Nasal Cannula Room Air Oxygen Flow Rate 2 Sepsis Recent Fever Within 48 Hours Sepsis New/Unexplained Change in Mental Status Sepsis Action Taken by Nursing Pulse Oximetry Post Tiitration 09/09/23 14:00 09/09/23 14:00 09/09/23 14:00 Temperature Temperature Source Pulse Rate 81 Pulse Rate [Apical] Pulse Rate from SpO2 Sensor Respiratory Rate Respiratory Effort / Characteristics Respiratory Depth Blood Pressure 180/87 H Blood Pressure [Right Arm] Blood Pressure Mean 103 Blood Pressure Mean [Right Arm] Pulse Oximetry 84 L Oxygen Delivery Method Room Air Oxygen Flow Rate Sepsis Recent Fever Within 48 Hours Sepsis New/Unexplained Change in Mental Status Sepsis Action Taken by Nursing Pulse Oximetry Post Tiitration 09/09/23 14:00 09/09/23 14:28 09/09/23 14:30 Temperature Temperature Source Pulse Rate 77 73 Pulse Rate [Apical] Pulse Rate from SpO2 Sensor 77 74 Respiratory Rate 23 26 H Respiratory Effort / Characteristics Respiratory Depth Blood Pressure Blood Pressure [Right Arm] Blood Pressure Mean Blood Pressure Mean [Right Arm] Pulse Oximetry 98 97 Oxygen Delivery Method Nasal Cannula Oxygen Flow Rate 2 Sepsis Recent Fever Within 48 Hours Sepsis New/Unexplained Change in Mental Status Sepsis Action Taken by Nursing Pulse Oximetry Post Tiitration 09/09/23 14:31 09/09/23 14:31 Temperature Temperature Source Pulse Rate 75 Pulse Rate [Apical] Pulse Rate from SpO2 Sensor 79 Respiratory Rate 28 H Respiratory Effort / Characteristics Respiratory Depth Blood Pressure 157/96 H Blood Pressure [Right Arm] Blood Pressure Mean 126 Blood Pressure Mean [Right Arm] Pulse Oximetry 96 Oxygen Delivery Method Oxygen Flow Rate Sepsis Recent Fever Within 48 Hours Sepsis New/Unexplained Change in Mental Status Sepsis Action Taken by Nursing Pulse Oximetry Post Tiitration Home Medications Current Medication List: was personally reviewed by [place] Laboratory Data Attestation: I reviewed the patient's lab results. 09/09/23 12:49 09/09/23 12:49 Lab Results 09/09/23 09/09/23 Range/Units 12:39 12:49 WBC 8.33 (4.8-10.8) K/ul RBC 3.63 L (4.70-6.10) M/uL Hgb 11.4 L (14.0-18.0) g/dl Hct 35.4 L (42.0-52.0) % MCV 97.5 (80.0-100.0) fL MCH 31.4 (25.0-34.0) pg MCHC 32.2 (32.0-36.0) g/dL RDW Std Deviation 59.1 H (36.4-46.3) fL RDW Coeff of Jose 16.8 H (11.5-14.5) % Plt Count 144 (130-400) K/uL MPV 13.0 H (9.4-12.4) fL Immature Gran % (Auto) 0.4 % Neut % (Auto) 83.6 % Lymph % (Auto) 7.0 % [place] % (Auto) 6.7 % Eos % (Auto) 1.9 % Baso % (Auto) 0.4 % Neut # (Auto) 6.97 H (1.40-6.50) K/uL Lymph # (Auto) 0.58 L (1.20-3.40) K/uL [place] # (Auto) 0.56 (0.11-0.59) K/uL Eos # (Auto) 0.16 (0.00-0.50) K/uL Baso # (Auto) 0.03 (0.00-0.20) K/uL Immature Gran # (Auto) 0.03 (0.01-0.20) K/uL PT 12.6 H (9.0-12.0) Seconds INR 1.2 H (0.9-1.1) APTT 22 (21-31) Seconds PTT Ratio 0.8 Sodium 139 (136-145) mmol/L Potassium 4.9 (3.5-5.1) mmol/L Chloride 106 (98-107) mmol/L Carbon Dioxide 26 (21-32) mmol/L Anion Gap 7 (3-11) BUN 54 H (6-23) mg/dl Creatinine 2.22 H (0.6-1.4) mg/dl Est Cr Clr Drug Dosing Not Reportable Est GFR ( Amer) 32.6 ml/min Est GFR (Non-Af Amer) 28.1 ml/min BUN/Creatinine Ratio 24.3 H (10-20) Glucose 183 H (70-99(Fasting)) mg/dl Lactate 1.2 (0.4-2.0) mmol/L Calcium 9.2 (8.6-10.3) mg/dl Magnesium 2.2 (1.7-2.4) mg/dl Total Bilirubin 0.7 (0.2-1.0) mg/dl AST 24 (13-39) U/L ALT 31 (7-52) U/L Alkaline Phosphatase 71 (34-104) U/L Troponin I High Sens 37.6 H (0-20) pg/ml Total Protein 6.9 (6.0-8.3) gm/dl Albumin 3.8 (3.4-5.0) gm/dl Globulin 3.1 (2.5-4.0) gm/dl Albumin/Globulin Ratio 1.2 (0.9-2) Procalcitonin 0.12 (0-0.5) ng/ml Urine Color Yellow Urine Appearance Clear (Clear) Urine pH 5.5 (4.5-7.5) Ur Specific [place] 1.012 (1.000-1.030) Urine Protein 3+ H (Negative) Urine Glucose (UA) 1+ H (Negative) Urine Ketones Negative (Negative) Urine Blood 1+ H (Negative) Urine Nitrite Negative (Negative) Urine Bilirubin Negative (Negative) Urine Urobilinogen Negative (Negative) Ur Leukocyte Esterase Negative (Negative) Urine WBC (Auto) 0-5 (0-5) /hpf Urine RBC (Auto) 0-2 (0-2) /hpf U Hyaline Cast (Auto) 3-5 H (0-2) /lpf U Epithel Cells (Auto) 0-2 (0-2) /hpf Urine Bacteria (Auto) None Seen (None Seen) Administered Medications Hydromorphone HCl (Hydromorphone Inj 0.5 Mg/0.5 Ml Syr) 0.5 mg IV Q6H PRN PRN Reason: Pain(5+) Stop: 09/23/23 14:54 Last Admin: 09/09/23 15:49 Dose: 0.5 mg Documented By: MELLISAW Bumetanide 2 mg/ Syringe 8 mls @ 4 mls/min IV BID@0900,1700 AR Stop: 10/09/23 16:59 Last Admin: 09/09/23 18:32 Dose: 4 mls/min Documented By: ARIS Insulin Aspart (Insulin Aspart Per Unit Charge) 0 units SC 1130,1630 AR; Protocol Stop: 10/09/23 16:29 Last Admin: 09/09/23 18:28 Dose: 4 units Documented By: MELLISAW Co-signed By: ALBAN Insulin Human NPH (Insulin Human Nph) 12 units SC BIDM [facility]; Protocol Stop: 10/09/23 16:59 Last Admin: 09/09/23 18:27 Dose: 12 units Documented By: MELLISAW Co-signed By: ALBAN Discontinued Medications Acetaminophen (Acetaminophen 500 Mg Tab) 1,000 mg PO NOW STA Stop: 09/09/23 14:56 Last Admin: 09/09/23 15:34 Dose: 1,000 mg Documented By: ARIS Cefepime HCl (Maxipime) 2,000 mg in 20 mls @ 5 mls/min IV NOW STA; Protocol Stop: 09/09/23 14:17 Last Admin: 09/09/23 15:34 Dose: 5 mls/min Documented By: ARIS Bumetanide 2 mg/ Syringe 8 mls @ 4 mls/min IV ONE ONE Stop: 09/09/23 14:15 Last Admin: 09/09/23 15:49 Dose: 4 mls/min Documented By: ARIS Daptomycin 350 mg/ Syringe 7 mls @ 3.5 mls/min IV Q24H [facility]; Protocol Stop: 09/16/23 14:59 Last Admin: 09/09/23 16:43 Dose: 3.5 mls/min Documented By: ARIS Imaging Data Radiologist's Impression: Chest X-Ray 09/09/23 12:12 XR chest 1V portable HISTORY: Sepsis COMPARISON: Chest 08/26/2023. FINDINGS: No pneumothorax. There are poststernotomy changes. Cardiomegaly, mild interstitial pulmonary edema, and small bilateral pleural effusions persist. Bibasilar densities are also unchanged and favor atelectasis. No acute fractures identified. There are poststernotomy changes. IMPRESSION: No significant change in the cardiomegaly, mild interstitial pulmonary edema, and small bilateral pleural effusions. ACT 112: Negative or not required by law. Electronically signed by: Abilio Soto M.D. 09/09/2023 2:11 PM Discharge Plan Visit Data Chief Complaint: Shortness of Breath/Dyspnea ED Provider: Vishal Rosenbaum Discharge Problem: Hypoxia, Cellulitis, CHF (congestive heart failure), SOB (shortness of breath) Patient Disposition: Admitted As Inpatient Condition: Fair Discharge Instructions Interventions: ED Discharge Assessment Last Done: 09/09/23 15:48 Discharge Problem: Cellulitis Qualifiers: Site of cellulitis: extremity Site of cellulitis of extremity: lower extremity Laterality: right Qualified Code(s): L03.115 - Cellulitis of right lower limb CHF (congestive heart failure) Qualifiers: Heart failure type: unspecified Heart failure chronicity: acute on chronic Q ualified Code(s): I50.9 - Heart failure, unspecified
[2023-09-09] MEDS ORDERED: PHARMACY GLYCEMIC MGMT CONSULT PRN (14:53)
[2023-09-09] MEDS ORDERED: GLUCOSE 40% GEL 15 GM TUBE PO PRN (14:53)
[2023-09-09] MEDS ORDERED: GLUCAGON FOR INJ 1 MG VIAL SQ PRN (14:53)
[2023-09-09] MEDS ORDERED: DEXTROSE 50% 50 ML SYRINGE IV PRN (14:53)
[2023-09-09] MEDS ORDERED: GLUCOSE 10 TAB/TUBE PO PRN (14:53)
--- NOTE | 2023-09-09 15:21 | Pharmacy Report ---
Pharmacy Glycemic Short Note 2 - Date of Service September 09, 2023 - Glycemic Short BSG Results (Last 24 hours): 09/09/23 12:49 Glucose 183 H OUTPATIENT ANTIDIABETIC REGIMEN: * NPH 20 units SC BIDM * Humulin R SSI * HbA1c: 8.8% (05/29/23), updated A1c pending ASSESSMENT: * 72 yo M admitted on 09/09/23 with SOB, recent LE Cellulitis, started on IV antibiotics. * BSG 183mg/dl, pharmacy has been consulted to assist with inpatient glycemic management. Patient is a Type 1 diabetic, recent admission in June. * Will base regimen on previous admission data as patient has complex regimen while inpatient in recent months. PLAN FOR INPATIENT GLYCEMIC CONTROL: * Basal insulin * NPH 12 units SC BIDM * Bolus insulin * NovoLog per scale ACHS or Q6hrs while NPO * Goal Range: Low 110 mg/dL - High 140 mg/dL * Breakfast: Correction Factor: 15 mg/dL/unit; Carb ratio of 1 unit per 4 grams CHO consumed * Lunch/Dinner: Correction Factor: 35 mg/dL/unit; Carb ratio of 1 unit per 9 grams CHO consumed * Bedtime: Correction Factor: 50 mg/dL/unit; Carb ratio of 1 unit per 15 grams CHO consumed
[2023-09-09] MEDS: ACETAMINOPHEN 500 MG TAB PO STA (15:34)
[2023-09-09] MEDS: CEFEPIME 2,000 MG/20 ML VIAL IV STA (15:34)
[2023-09-09] MEDS ORDERED: ACETAMINOPHEN 325 MG TAB PO PRN (15:35)
[2023-09-09] MEDS: BUMETANIDE 2 MG in SYRINGE 0 ML IV ONE (15:49)
[2023-09-09] MEDS: HYDROmorphone INJ 0.5 MG/0.5 ML SYR IV PRN (15:49)
[2023-09-09] MEDS: DAPTOmycin 350 MG in SYRINGE 0 ML IV SCH (16:43)
[2023-09-09] MEDS: INSULIN HUMAN NPH SC SCH (18:27)
[2023-09-09] MEDS: INSULIN ASPART PER UNIT CHARGE SC SCH ×2 (18:28→22:13)
[2023-09-09] MEDS: BUMETANIDE 2 MG in SYRINGE 0 ML IV SCH (18:32)
[2023-09-09] MEDS: HEPARIN SOD 5,000 UNIT/0.5 ML VIAL SQ SCH (22:12)
[2023-09-09] MEDS: LATANOPROST 0.005% OP SOLN 2.5 ML BTL OPB SCH (22:12)
[2023-09-09] MEDS: traZODone HCL 100 MG TAB PO SCH (22:50)
[2023-09-09] MEDS: rOPINIRole HCL 1 MG TABLET PO SCH (22:51)
[2023-09-09] MEDS: hydrALAZINE HCL 25 MG TAB PO SCH (22:51)
[2023-09-09] MEDS: DORZOLAMIDE HCL 2% OPH SOLN 10 ML BTL OPB SCH (22:52)
[2023-09-10] MEDS: rOPINIRole HCL 1 MG TABLET PO SCH (05:35)
[2023-09-10 06:11] LABS: Basophils # (auto) 0.05 K/uL (0.00-0.20); Basophils % (auto) 0.8 %; Eosinophils # (auto) 0.34 K/uL (0.00-0.50); Eosinophils % (auto) 5.4 %; Hematocrit (blood only) 35.9 % (42.0-52.0); Hemoglobin 11.5 g/dl (14.0-18.0); Immature Granulocytes # (auto) 0.02 K/uL (0.01-0.20); Immature Granulocytes % (auto) 0.3 %; Lymphocytes # (auto) 0.59 K/uL (1.20-3.40); Lymphocytes % (auto) 9.4 %; Mean Corpuscular Volume 96.8 fL (80.0-100.0); Mean Platelet Volume 12.7 fL (9.4-12.4); Monocytes # (auto) 0.53 K/uL (0.11-0.59); Monocytes % (auto) 8.4 %; Neutrophils # (auto) 4.75 K/uL (1.40-6.50); Neutrophils % (auto) 75.7 %; Platelet Count 143 K/uL (130-400); RDW Coefficient of Variation 16.5 % (11.5-14.5); RDW Standard Deviation 57.3 fL (36.4-46.3); Red Blood Count 3.71 M/uL (4.70-6.10); White Blood Count 6.28 K/ul (4.8-10.8)
[2023-09-10 06:23] LABS: Albumin Globulin Ratio 1.2 (0.9-2); Albumin Level 3.5 gm/dl (3.4-5.0); BUN Creatinine Ratio 22.5 (10-20); Bilirubin,Total 0.8 mg/dl (0.2-1.0); Creatinine Clr Calc Pharmacy 32.8 ml/min; Est GFR (African American) 30.3 ml/min; Est GFR (Non-African American) 26.1 ml/min; INR 1.2 (0.9-1.1); Magnesium 2.1 mg/dl (1.7-2.4); Potassium 4.2 mmol/L (3.5-5.1); Total Protein 6.5 gm/dl (6.0-8.3)
[2023-09-10 07:25] LABS: Estimated Average Glucose 197 mg/dl; Hemoglobin A1C 8.5 % (4.5-5.6)
--- NOTE | 2023-09-10 08:34 | Electrocardiogram Report ---
Test Reason : Blood Pressure : / mmHG Vent. Rate : 088 BPM Atrial Rate : 088 BPM P-R Int : 230 ms QRS Dur : 120 ms QT Int : 396 ms P-R-T Axes : 045 058 022 degrees QTc Int : 479 ms Sinus rhythm with 1st degree A-V block Right bundle branch block Old Septal infarct (cited on or before 09-SEP-2023) Abnormal ECG When compared with ECG of 26-AUG-2023 14:52, Criteria for Septal infarct now present T-wave inversion in Lateral leads no longer present Confirmed by Malcolm Croft ([id number]) on 09/10/2023 8:34:37 AM Referred By: REFERRED SELF Confirmed By:Malcolm Croft
[2023-09-10] MEDS: HEPARIN SOD 5,000 UNIT/0.5 ML VIAL SQ SCH (09:01)
[2023-09-10] MEDS: SERTRALINE HCL 50 MG TABLET PO SCH (09:02)
[2023-09-10] MEDS: METOPROLOL SUCC 25MG EXT REL TAB PO SCH (09:02)
[2023-09-10] MEDS: ATORVASTATIN 40 MG TAB PO SCH (09:02)
[2023-09-10] MEDS: ASPIRIN 81 MG ECTAB PO SCH (09:02)
[2023-09-10] MEDS: amLODIPine BESYLATE 5 MG TAB PO SCH (09:02)
[2023-09-10] MEDS: ISOSORBIDE MONO EXTENDED REL 30 MG TABCR PO SCH (09:02)
[2023-09-10] MEDS: CALCITRIOL 0.25 MCG CAPSULE PO SCH (09:02)
[2023-09-10] MEDS: INSULIN ASPART PER UNIT CHARGE SC SCH (09:09)
--- NOTE | 2023-09-10 11:30 | Hospitalist Progress Note ---
Date of Service September 10, 2023 Assessment & Plan (1) Hypoxia: Plan: Acute hypoxic respiratory failure from recurrent CHF. Currently requiring 2 L of oxygen per nasal cannula. Will wean off as tolerated (2) Acute on chronic combined systolic and diastolic CHF (congestive heart failure): Plan: Parenteral Bumex diuresis. Monitor intake and output. Serial chest x-ray (3) Right leg swelling: Plan: Chronic venous insufficiency with stasis dermatitis. Leg elevation as tolerated. Edema may improve with Bumex diuresis. Recent right lower extremity cellulitis (4) Elevated troponin: Plan: Chronic. No evidence of acute coronary syndrome (5) CAD, multiple vessel: Plan: Stable. Continue current medical management (6) Generalized weakness: Plan: OT and PT assessments requested (7) Chronic kidney disease, stage 4 (severe): Plan: Monitor intake and output. Serial labs (8) Type 2 diabetes mellitus: Plan: ADA diet. Sliding scale coverage. Basal insulin therapy Plan To be determined Admission and Anticipated Discharge Date Admission Date: September 09, 2023 Subjective Alert and oriented. No distress. He appears to again have acute exacerbation of his acute on chronic combined systolic and diastolic CHF. He has mild hypoxic respiratory failure and is currently requiring 2 L of oxygen. Good diuretic response with Bumex 2 mg IV twice daily. His troponin is chronically elevated and I do not think this represents demand ischemia. OT and PT assessments have been requested. Right lower extremity looks better than it did before and he continues to have chronic venous insufficiency with stasis dermatitis but no overt cellulitis at this time. Will repeat portable chest x- ray again tomorrow, September 10 Review of Systems 2 Review of Systems: Constitutional-no fever or chills ENT-no blurred vision, no double vision, no epistaxis, no sore throat Respiratory-no cough, no wheezing. Shortness of breath with minimal exertion Cardiac-no palpitations, no chest pain, no syncope GI-no nausea, vomiting, diarrhea, melena, hematochezia -no urinary retention, no urinary incontinence, no dysuria, no hematuria Musculoskeletal-no joint pain, no muscle tenderness. Left BKA status. Chronic venous insufficiency of the right lower extremity with chronic edema and chronic erythema Skin-no bruising, no rashes, no pruritus Neuro-no isolated weakness, no paresthesia Psych-no depression, no anxiety Physical Exam 2 Physical Exam: General-alert and oriented x3, no fever, no chills HEENT-head atraumatic and normocephalic, pupils equal and reactive to light, extraocular muscles intact Neck-no lymphadenopathy or thyromegaly, trachea midline Chest-diminished breath sounds bilaterally with bibasilar inspiratory rales. No rhonchi. No wheezing iac-regular rate and rhythm, normal S1 and S2 Abdomen-normal bowel sounds, no hepatosplenomegaly Extremities-left BKA status. Right lower extremity with chronic venous insufficiency, chronic edema, excoriations, and erythema but overall improved after treatment for recent cellulitis no cyanosis, clubbing, or edema Neuro-cranial nerves II through XII intact, motor and sensory function within normal limits, strength symmetrical, no focal deficits Psych-flat affect Results & Data Results & Data Vital Signs (Past 12 Hours) Vital Signs Temp Pulse Pulse Resp BP Pulse Ox O2 Del Method 09/10/23 07:30 36.5 C 75 18 163/83 H 96 Nasal Cannula 09/10/23 07:29 67 09/10/23 04:04 36.5 C 68 20 166/79 H 92 Nasal Cannula 09/10/23 00:39 Nasal Cannula 09/09/23 23:49 36.4 C L 70 20 189/90 H 92 Room Air O2 Flow Rate 09/10/23 07:30 2 09/10/23 07:29 09/10/23 04:04 2 09/10/23 00:39 2 09/09/23 23:49 Laboratory Results 09/10/23 05:27 09/10/23 05:27 PG Care Time/CCT Total # of Minutes Spent Total Time Spent with Patient: Total time spent is greater than 50% in coordination of care (as documented) at patient's floor/unit and/or counseling patient: Coding Level of Care Code 06398 SUB INP/OBS CARE 3/50MIN Diagnoses Hypoxia R09.02 Acute on chronic combined systolic and diastolic CHF (congestive heart failure) I50.43 Right leg swelling M79.89 Elevated troponin R79.89 CAD, multiple vessel I25.10 Generalized weakness R53.1 Chronic kidney disease, stage 4 (severe) N18.4 Type 2 diabetes mellitus E11.9
[2023-09-10 12:59] LABS: A calco-baum cmplx NotReported Not Detected (NotDetected); Bact fragilis Not Reported Not Detected (NotDetected); Blood Culture Id Panel See PCR Comment (NotDetected); C auris Not Reported Not Detected (NotDetected); Calbicans Not Reported Not Detected (NotDetected); Candida glabrata Not Reported Not Detected (NotDetected); Candida krusei Not Reported Not Detected (NotDetected); Cneoformans/gatti Not Reported Not Detected (NotDetected); Cparapsilosis Not Reported Not Detected (NotDetected); E cloacae compx Not Reported Not Detected (NotDetected); Efaecalis Not Reported Not Detected (NotDetected); Efaecium Not Reported Not Detected (NotDetected); Enterobacterales Not Reported Not Detected (NotDetected); Escherichia coli Not Reported Not Detected (NotDetected); H influenzae Not Reported Not Detected (NotDetected); K aerogenes Not Reported Not Detected (NotDetected); Koxytoca Not Reported Not Detected (NotDetected); Kpneumoniae grp Not Reported Not Detected (NotDetected); Lmonocyt Not Reported Not Detected (NotDetected); N meningitidis Not Reported Not Detected (NotDetected); P aeruginosa Not Reported Not Detected (NotDetected); Proteus spp Not Reported Not Detected (NotDetected); Salmonella spp Not Reported Not Detected (NotDetected); Smarcescens Not Reported Not Detected (NotDetected); Staph lugdunensis Not Reported Not Detected (NotDetected); Staph spp. Not Reported DETECTED (NotDetected); Staphaureus Not Reported Not Detected (NotDetected); Staphepi Not Reported DETECTED (NotDetected); Staphylococcus spp. DETECTED (NotDetected); Stenmaltophilia Not Reported Not Detected (NotDetected); Strep agal(GrpB) Not Reported Not Detected (NotDetected); Strep pneum Not Reported Not Detected (NotDetected); Strep pyog (GrpA) Not Reported Not Detected (NotDetected); Strep spp Not Reported Not Detected (NotDetected); mecAC Resistant Gene DETECTED (NotDetected)
[2023-09-10 13:13] LABS: Staphylococcus epidermidis DETECTED (NotDetected)
--- NOTE | 2023-09-10 13:29 | Cardiology Consultation ---
Date of Consultation September 10, 2023 Assessment & Plan (1) Heart failure with mildly reduced ejection fraction (HFmrEF): (2) Ventricular tachycardia seen on engine room operator: (3) CAD, multiple vessel: (4) S/P CABG x 4: (5) Chronic kidney disease, stage 4 (severe): 72-year-old man with complex cardiac and medical history with chronic heart failure with mildly reduced ejection fraction (EF 45-50%) whose management is complicated by his significant renal insufficiency, medication compliance issues, and labile blood pressure. Presently, he actually appears euvolemic. He received Bumex 2 mg IV twice daily yesterday and is scheduled for a similar dose today. Since he no longer appears volume overloaded, would recommend reducing his Bumex to 2 mg IV (or PO) once daily while continuing to monitor his volume status through daily weight (which has not been accurate thus far), renal function, and assessing neck veins. No clinical evidence of myocardial ischemia by history or ECG, minimal troponin elevation consistent with mild demand ischemia in patient with renal dysfunct ion. Certainly, afterload reduction/blood pressure control is of paramount importance. He is normotensive currently, but was hypertensive most of yesterday. Would recommend titrating hydralazine upward as necessary to maintain systolic blood pressure below 150 mmHg as consistently as possible while avoiding low normal or hypotensive blood pressures. Would not increase a mlodipine further, since dose is higher than 5 mg tend to exacerbate leg edema. He has a history of bradycardia and is therefore only on a minimal beta-luiz dose. Recent heart rate in the 60- 80 bpm range seems reasonable, no change in his metoprolol dosing. His single episode of brief/asymptomatic ventricular tachycardia as little clinical significance in the absence of frequent ventricular ectopy or sustained ventricular dysrhythmias. No specific rhythm management necessary at this time, would focus on optimizing hemodynamics and volume status. Aside from adjusting diuretic based on volume status and antihypertensive based on BP control, no additional recommendations at this time. Will sign off, if additional cardiac input necessary over the weekend please contact Dr. Krause. History of Present Illness Reason for Consultation: II. 5 met workload. Requesting Physician: Gregorio Avalos MD Attending Physician: Gregorio Avalos MD History of Present Illness 72-year-old man with CAD (CABG 2011 LIMALAD, SVG to OM & diagonal, SVG to PDA), HFmrEF (EF 45-50%), moderate mitral regurgitation, and stage IV chronic kidney disease (creatinine 2.36) who was admitted 09/09/2023 with nonspecific symptoms/failure to thrive. At recent baseline, he notes that his weight has been unchanged and he has not had chest pain, dyspnea at rest, or PND. No change in his chronic orthopnea (he sleeps in a recliner) and his leg edema is less than usual. He was hospitalized for a week earlier this month with the following diagnoses: recurrent right lower extremity cellulitis, hypokalemia, iron deficiency anemia, acute on chronic kidney disease stage IV. During that hospitalization his diuretics were held on admission, he is followed by nephrology, and he was discharged on bumetanide 2 mg daily and his vasoactive regimen was adjusted (losartan discontinued, amlodipine and hydralazine initiated). He noted to me that he had been hypoglycemic on the day of admission and that his blood pressure was markedly elevated when checked by a visiting nurse. On admission, he was noted to be mildly hypoxemic, his BNP of 2155 was at the mid range of previous values ([id number] range), his creatinine was near its recent santosh at 2.22 (recent range 2.223.75), and his chest x-ray showed only mild interstitial edema which was unchanged from previous studies. At the time my evaluation he was eating lunch and was comfortable. He denied any chest pain, dyspnea, orthopnea, palpitations, lightheadedness, presyncope, or syncope. His initial blood pressures here were hypertensive, current BP is normotensive. His vasoactive regimen includes amlodipine 5 mg daily, sliding scale Bumex, hydralazine 25 mg 3 times daily, isosorbide 30 mg daily, metoprolol 25 mg daily. Telemetry showed sinus rhythm with a single 6 beat run of ventricular tachycardia (asymptomatic per patient). Allergies Allergy/AdvReac Type Severity Reaction Status Date / Time ofloxacin [From Floxin] Allergy Intermediate itching Verified 09/09/23 15:38 Quinolones Allergy Intermediate Itchiness Verified 09/09/23 15:38 sulfamethoxazole Allergy Intermediate Rash Verified 09/09/23 15:38 trimethoprim Allergy Intermediate Rash Verified 09/09/23 15:38 Home Medications Medication Instructions Recorded Confirmed Type latanoprost 0.005 % eye drops 1 drp OPB HS 12/27/17 09/09/23 History (Xalatan) cholecalciferol (vitamin D3) 50 2,000 units PO QAM 11/10/19 09/09/23 History mcg (2,000 unit) capsule (Vitamin D3) brimonidine 0.2 % eye drops 1 drp OPB BID 12/07/20 09/09/23 History dorzolamide 2 % eye drops 1 drp OPB BID 12/07/20 09/09/23 History timolol maleate 0.5 % eye gel 1 drp OPB BID 12/07/20 09/09/23 History forming solution ascorbic acid (vitamin C) 500 mg 500 mg PO QAM 02/19/21 09/09/23 History capsule calcitriol 0.5 mcg capsule 1 mcg (2 x 0.5 mcg) PO QAM #60 caps 01/25/23 09/09/23 Rx insulin regular human 100 unit/mL 1 sliding scale dose subcut 04/19/23 09/09/23 Rx injection solution (Humulin R USEASDIRECTD #10 mL Regular U-100 Insulin) cyanocobalamin (vitamin B-12) 500 1,000 mcg (2 x 500 mcg) PO QAM #0 05/04/23 09/09/23 Rx mcg tablet tabs ergocalciferol (vitamin D2) 1,250 50,000 unit PO WEEKLY #12 caps 05/27/23 09/09/23 Rx mcg (50,000 unit) capsule isosorbide mononitrate 30 mg 30 mg PO QAM #30 tabs 06/04/23 09/09/23 Rx tablet,extended release 24 hr metoprolol succinate 25 mg 25 mg PO QAM #30 tabs 06/04/23 09/09/23 Rx tablet,extended release 24 hr potassium chloride 20 mEq 10 meq (1/2 x 20 mEq) PO QAM #30 06/16/23 09/09/23 Rx tablet,extended release(part/cryst) tabs metolazone 5 mg tablet 5 mg PO Q OTHER DAY #45 tabs 06/25/23 09/09/23 Rx atorvastatin 80 mg tablet (Lipitor) 80 mg PO QAM #90 tabs 08/11/23 09/09/23 Rx ropinirole 1 mg tablet 3 mg (3 x 1 mg) PO HS #270 tabs 08/11/23 09/09/23 Rx ondansetron 4 mg disintegrating 4 mg PO Q8H PRN nausea and 08/23/23 09/09/23 Rx tablet vomiting #30 tabs amlodipine 5 mg tablet (Norvasc) 5 mg PO QAM #30 tabs 09/03/23 09/09/23 Rx aspirin 81 mg tablet,delayed 81 mg PO QAM #0 tabs 09/03/23 09/09/23 Rx release docusate sodium 100 mg capsule 100 mg PO BID #0 caps 09/03/23 09/09/23 Rx hydralazine 25 mg tablet 25 mg PO TID #90 tabs 09/03/23 09/09/23 Rx polyethylene glycol 3350 17 gram 17 g PO BID #0 ea 09/03/23 09/09/23 Rx oral powder packet (Miralax) ropinirole 1 mg tablet 1 mg PO HYP439 #60 tabs 09/03/23 09/09/23 Rx ropinirole 2 mg tablet 2 mg PO HS #30 tabs 09/03/23 09/09/23 Rx trazodone 100 mg tablet 100 mg PO HS #30 tabs 09/03/23 09/09/23 Rx bumetanide 2 mg tablet 2 mg PO DAILY #90 tabs 09/08/23 09/09/23 Rx doxycycline hyclate 100 mg tablet 100 mg PO BID 10 days #20 tabs 09/08/23 09/09/23 Rx insulin NPH isoph U-100 human 100 20 unit (0.2 mL) subcut BID #10 mL 09/08/23 09/09/23 Rx unit/mL subcutaneous suspension (Novolin N NPH U-100 Insulin isophane) sertraline 50 mg tablet 50 mg PO DAILY #90 tabs 09/08/23 09/09/23 Rx tramadol 50 mg tablet 50 mg PO DAILY #30 tabs 09/08/23 09/09/23 Rx Patient History Medical History (Updated 09/10/23 @ 13:34 by Malcolm Croft MD) Type 2 diabetes mellitus Ventricular bigeminy 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, with long-term current use of insulin (HFpEF) heart failure with preserved ejection fraction Acute kidney injury superimposed on chronic kidney disease Pressure ulcer of BKA stump, stage 3 RESOLVED Influenza A virus subtype H1 2009 pandemic strain present Slow to wake up after anesthesia Wound of lower extremity RLE wound "improved" per 01/27/21 wound clinic visit ([facility]); surgeon aware of patient's wound hx per 01/2021 office visit note; "only has a little scab there now, keeps it covered to protect it." Hypertension GERD (gastroesophageal reflux disease) History of TIA (transient ischemic attack) ~2009>over his left eye, no residual symptoms Surgical History (Updated 09/10/23 @ 13:34 by Malcolm Croft MD) S/P arteriovenous (AV) fistula creation left>no currently having dialysis History of esophagogastroduodenoscopy (EGD) History of colonoscopy S/P lumbar laminectomy S/P foot surgery S/P eye surgery B/L x3 (for glaucoma) S/P CABG x 4 (2011) CABG x4 (2011), [facility]; f/u PCP History of lumbar discectomy History of tonsillectomy Family History Father , age 78 with prostate cancer Colorectal cancer Cardiovascular disease Diabetes Prostate cancer Grandmother (Maternal) Diabetes Mother , age 54 of throat cancer Throat cancer Denies family history of Ovarian cancer Myocardial infarction Breast cancer Social History Smoking Status: Never smoker Second Hand Exposure: No; Do You Dip or Chew Tobacco: No; Tobacco Cessation Education Requested by Patient: No Hx Alcohol Use: No Hx Substance Use: No Preferred Language: Chinese Communication Ability: Effective Visual Impairment: No Limitations Hearing Ability: Normal Tag Press Operator Required: No Beliefs That Will Affect Care: None marital status: / marital status details: lost August 2021 Current Living Situation: Alone current occupational status: retired current occupation: How many Children do You have: 2 Other Information That Helps Us Care for You: Yes (moving to [place]) other: Retired age [age]2. Feels Safe at Home: No Is there a partner from a previous relationship who is making you feel unsafe now?: No Any Concerns about Your Family Situation: No Would You Like to Speak to Someone About Your Situation: No Safety Concerns: Feels Safe At This Time and Afraid for Self Childhood Exposure to Second-Hand Smoke: No Diet: regular caffeine: No during the past year weight has: remained stable Dental Care, Regularly: Yes Physical Activity Frequency: Other Physical Activity Frequency Comment: limited d/t disability Seatbelt Use: always Sunscreen Use: Yes Assistive Devices: Prosthesis, Scooter/Electric Scooter and Walker Physical Exam Physical Exam: Elderly white male appears quite comfortable. BP normotensive. Pulse 60 bpm regular. Respirations 18 and unlabored. Skin: no ecchymoses or generalized lesions. HEENT: unremarkable. Neck: JVP at the clavicle at 90 degrees, no carotid bruits. Lungs: clear bilaterally. Cardiac: regular rhythm, normal S1-2, no murmur. Abdomen: benign. Extremities: Amputated left lower extremity, right lower extremity bandage wrapped but with no obvious edema. Neurologic: normal affect and conversation, nonfocal. Results & Data Vital Signs (Past 12 Hours) Vital Signs Temp Pulse Pulse Resp BP Pulse Ox O2 Del Method 09/10/23 11:33 98.1 F 61 18 139/68 96 Nasal Cannula 09/10/23 08:45 Nasal Cannula 09/10/23 07:30 97.7 F 75 18 163/83 H 96 Nasal Cannula 09/10/23 07:29 67 09/10/23 04:04 97.7 F 68 20 166/79 H 92 Nasal Cannula O2 Flow Rate 09/10/23 11:33 2 09/10/23 08:45 2 09/10/23 07:30 2 09/10/23 07:29 09/10/23 04:04 2 Laboratory Results Hemoglobin 11.5 with normal white count and platelet count. Normal electrolytes, BUN 53, creatinine 2.36. Normal transaminases. Troponins of 37 and 47. Diagnostic Findings ECG on admission shows sinus rhythm at 88 bpm with first-degree AV block, right bundle branch block, and an old septal infarct. Compared with 08/26/2023 ECG, criteria for septal infarct with now present, T wave inversion in lateral leads was no longer present. Chest x-ray on admission as noted, mild interstitial edema and small bilateral pleural effusions which are unchanged from previous. Echocardiogram May 2023 showed EF 45-50% with normal wall motion, moderate LVH with grade 2 diastolic dysfunction, and no obvious valvular disease. Lexiscan Cardiolite May 2023 showed EF of 52% with a fixed defect felt to represent a small apical infarct with mild get-infarct ischemia versus artifact. PG Care Time/CCT Total # of Minutes Spent Total Time Spent with Patient: Total time spent is greater than 50% in coordination of care (as documented) at patient's floor/unit and/or counseling patient: Coding Level of Care Code 72036 INT INP/OBS CARE 3/75MIN Diagnoses Heart failure with mildly reduced ejection fraction (HFmrEF) I50.22 Ventricular tachycardia seen on engine room operator I47.20 CAD, multiple vessel I25.10 S/P CABG x 4 Z95.1 Chronic kidney disease, stage 4 (severe) N18.4
[2023-09-10] MEDS: DAPTOmycin 500 MG in SYRINGE 0 ML IV SCH (15:48)
[2023-09-10] MEDS: hydrALAZINE TAB 50 MG TAB PO SCH (22:03)
[2023-09-11 05:52] LABS: Basophils # (auto) 0.04 K/uL (0.00-0.20); Basophils % (auto) 0.7 %; Eosinophils # (auto) 0.27 K/uL (0.00-0.50); Eosinophils % (auto) 4.4 %; Hematocrit (blood only) 34.3 % (42.0-52.0); Hemoglobin 11.3 g/dl (14.0-18.0); Immature Granulocytes # (auto) 0.01 K/uL (0.01-0.20); Immature Granulocytes % (auto) 0.2 %; Lymphocytes # (auto) 0.65 K/uL (1.20-3.40); Lymphocytes % (auto) 10.6 %; Mean Corpuscular Hemoglobin 31.8 pg (25.0-34.0); Mean Corpuscular Hgb Conc 32.9 g/dL (32.0-36.0); Mean Corpuscular Volume 96.6 fL (80.0-100.0); Mean Platelet Volume 12.7 fL (9.4-12.4); Monocytes # (auto) 0.65 K/uL (0.11-0.59); Monocytes % (auto) 10.6 %; Neutrophils # (auto) 4.52 K/uL (1.40-6.50); Neutrophils % (auto) 73.5 %; Platelet Count 145 K/uL (130-400); RDW Coefficient of Variation 16.5 % (11.5-14.5); RDW Standard Deviation 57.7 fL (36.4-46.3); Red Blood Count 3.55 M/uL (4.70-6.10); White Blood Count 6.14 K/ul (4.8-10.8)
[2023-09-11 06:07] LABS: BUN Creatinine Ratio 21.2 (10-20); Calcium 8.7 mg/dl (8.6-10.3); Creatinine Clr Calc Pharmacy 25.7 ml/min; Est GFR (African American) 22.5 ml/min; Est GFR (Non-African American) 19.4 ml/min; Potassium 4.1 mmol/L (3.5-5.1)
--- NOTE | 2023-09-11 08:22 | XRay Report ---
XR chest 1V portable HISTORY: Shortness of breath. Congestive heart failure. COMPARISON: Chest 09/09/2023. FINDINGS: No pneumothorax. There are poststernotomy changes. Cardiomegaly, mild interstitial pulmonar y edema, and small bilateral pleural effusions persist. Bibasilar densities are also unchanged and fa vor atelectasis. No acute fractures identified. There are poststernotomy changes. IMPRESSION: No significant change in the cardiomegaly, mild interstitial pulmonary edema, and small bilateral ple ural effusions. ACT 112: Negative or not required by law. Electronically signed by: Abilio Soto M.D. 09/11/2023 8:21 AM
--- NOTE | 2023-09-11 12:28 | Hospitalist Progress Note ---
Date of Service September 11, 2023 Assessment & Plan (1) Hypoxia: Plan: Acute hypoxic respiratory failure from recurrent CHF. Now resolved. He is on room air (2) Acute on chronic combined systolic and diastolic CHF (congestive heart failure): Plan: Improved with parenteral Bumex diuresis. Bumex down titrated to once daily dosing today, September 10. Chest x-ray done today, September 10, looks better to me. Monitor intake and output. (3) Right leg swelling: Plan: Chronic venous insufficiency with stasis dermatitis. Leg elevation as tolerated. Right lower extremity edema has improved somewhat with Bumex diuresis. Recent right lower extremity cellulitis (4) Elevated troponin: Plan: Chronic. No evidence of acute coronary syndrome (5) CAD, multiple vessel: Plan: Stable. Continue current medical management (6) Generalized weakness: Plan: OT and PT both recommend eventual discharge to home with home health services. (7) Chronic kidney disease, stage 4 (severe): Plan: Monitor intake and output. Serial labs. Creatinine has bumped up a bit with Bumex diuresis as expected (8) Type 2 diabetes mellitus: Plan: ADA diet. Sliding scale coverage. Basal insulin therapy Plan Hopeful discharge to home on September 12 with home health services. Admission and Anticipated Discharge Date Admission Date: September 09, 2023 Subjective Alert and oriented. Chest x-ray done today, September 10, looks better. He is now on room air. Creatinine bumped up to 3.0 but this cannot be helped. Parenteral Bumex decreased to once daily dosing. Hydralazine uptitrated for better blood pressure control. Blood cultures are consistent with contaminant. Daptomycin has been discontinued. OT and PT recommend event discharge to home with home health services. Review of Systems 2 Review of Systems: Constitutional-no fever or chills ENT-no blurred vision, no double vision, no epistaxis, no sore throat Respiratory-no cough, no wheezing. Shortness of breath with minimal exertion Cardiac-no palpitations, no chest pain, no syncope GI-no nausea, vomiting, diarrhea, melena, hematochezia -no urinary retention, no urinary incontinence, no dysuria, no hematuria Musculoskeletal-no joint pain, no muscle tenderness. Left BKA status. Chronic venous insufficiency of the right lower extremity with chronic edema and chronic erythema Skin-no bruising, no rashes, no pruritus Neuro-no isolated weakness, no paresthesia Psych-no depression, no anxiety Physical Exam 2 Physical Exam: General-alert and oriented x3, no fever, no chills HEENT-head atraumatic and normocephalic, pupils equal and reactive to light, extraocular muscles intact Neck-no lymphadenopathy or thyromegaly, trachea midline Chest-diminished breath sounds bilaterally with bibasilar inspiratory rales. No rhonchi. No wheezing iac-regular rate and rhythm, normal S1 and S2 Abdomen-normal bowel sounds, no hepatosplenomegaly Extremities-left BKA status. Right lower extremity with chronic venous insufficiency, chronic edema, excoriations, and erythema but overall improved after treatment for recent cellulitis no cyanosis, clubbing, or edema Neuro-cranial nerves II through XII intact, motor and sensory function within normal limits, strength symmetrical, no focal deficits Psych-flat affect Results & Data Results & Data Vital Signs (Past 12 Hours) Vital Signs Temp Pulse Pulse Resp BP Pulse Ox O2 Del Method 09/11/23 10:59 36.7 C 60 18 139/62 90 Room Air 09/11/23 07:44 36.7 C 70 20 170/75 H 90 Room Air 09/11/23 06:56 60 09/11/23 02:00 36.8 C 64 16 135/69 94 Room Air Laboratory Results 09/11/23 05:26 09/11/23 05:26 PG Care Time/CCT Total # of Minutes Spent Total Time Spent with Patient: Total time spent is greater than 50% in coordination of care (as documented) at patient's floor/unit and/or counseling patient: Coding Level of Care Code 40914 SUB INP/OBS CARE 3/50MIN Diagnoses Hypoxia R09.02 Acute on chronic combined systolic and diastolic CHF (congestive heart failure) I50.43 Right leg swelling M79.89 Elevated troponin R79.89 CAD, multiple vessel I25.10 Generalized weakness R53.1 Chronic kidney disease, stage 4 (severe) N18.4 Type 2 diabetes mellitus E11.9
[2023-09-11] MEDS: hydrALAZINE TAB 50 MG TAB PO SCH (13:40)
[2023-09-12] MEDS: BUMETANIDE 2 MG in SYRINGE 0 ML IV SCH (09:05)
[2023-09-12 13:30] LABS: Basophils # (auto) 0.04 K/uL (0.00-0.20); Basophils % (auto) 0.6 %; Eosinophils # (auto) 0.18 K/uL (0.00-0.50); Eosinophils % (auto) 2.8 %; Hematocrit (blood only) 32.2 % (42.0-52.0); Hemoglobin 10.5 g/dl (14.0-18.0); Immature Granulocytes # (auto) 0.03 K/uL (0.01-0.20); Immature Granulocytes % (auto) 0.5 %; Lymphocytes # (auto) 0.57 K/uL (1.20-3.40); Lymphocytes % (auto) 8.7 %; Mean Corpuscular Hemoglobin 31.5 pg (25.0-34.0); Mean Corpuscular Hgb Conc 32.6 g/dL (32.0-36.0); Mean Corpuscular Volume 96.7 fL (80.0-100.0); Mean Platelet Volume 12.6 fL (9.4-12.4); Monocytes # (auto) 0.61 K/uL (0.11-0.59); Monocytes % (auto) 9.3 %; Neutrophils % (auto) 78.1 %; Platelet Count 133 K/uL (130-400); RDW Coefficient of Variation 16.7 % (11.5-14.5); RDW Standard Deviation 58.3 fL (36.4-46.3); Red Blood Count 3.33 M/uL (4.70-6.10); White Blood Count 6.53 K/ul (4.8-10.8)
[2023-09-12 13:56] LABS: Anion Gap 8 (3-11); BUN Creatinine Ratio 23.8 (10-20); Blood Urea Nitrogen 81 mg/dl (6-23); Calcium 8.8 mg/dl (8.6-10.3); Carbon Dioxide 27 mmol/L (21-32); Chloride 99 mmol/L (98-107); Creatinine Clr Calc Pharmacy 22.3 ml/min; Est GFR (African American) 19.3 ml/min; Est GFR (Non-African American) 16.6 ml/min; Glucose 263 mg/dl (70-99(Fasting)); Sodium 134 mmol/L (136-145)
--- NOTE | 2023-09-12 14:17 | Hospitalist Progress Note ---
Date of Service September 12, 2023 Assessment & Plan (1) Hypoxia: Plan: Acute hypoxic respiratory failure from recurrent CHF. Now resolved. He is on room air (2) Acute on chronic combined systolic and diastolic CHF (congestive heart failure): Plan: Improved with parenteral Bumex diuresis. Bumex down titrated to once daily dosing on September 10 and will be switched back to his usual oral dosing tomorrow, September 12. Chest x-ray done on September 10, looked better to me. Monitor intake and output. (3) Right leg swelling: Plan: Chronic venous insufficiency with stasis dermatitis. Leg elevation as tolerated. Right lower extremity edema has improved somewhat with Bumex diuresis. He was recently treated for right lower extremity cellulitis (4) Elevated troponin: Plan: Chronic. No evidence of acute coronary syndrome (5) CAD, multiple vessel: Plan: Stable. Continue current medical management (6) Generalized weakness: Plan: OT and PT both recommend eventual discharge to home with home health services. (7) Chronic kidney disease, stage 4 (severe): Plan: Monitor intake and output. Serial labs. Creatinine has bumped up a bit with Bumex diuresis as expected (8) Type 2 diabetes mellitus: Plan: ADA diet. Sliding scale coverage. Basal insulin therapy Plan Hopeful discharge to home tomorrow, September 12, with home health services. Admission and Anticipated Discharge Date Admission Date: September 09, 2023 Subjective Alert and oriented. No distress. Creatinine has risen further to 3.4. IV Bumex switched back to his usual oral dosage starting tomorrow, September 12. He states he will be able to go home tomorrow since a ride will be available. He remains on room air. Blood pressure is much better controlled on hydralazine which replaced amlodipine. Review of Systems 2 Review of Systems: Constitutional-no fever or chills ENT-no blurred vision, no double vision, no epistaxis, no sore throat Respiratory-no cough, no wheezing. Shortness of breath with minimal exertion Cardiac-no palpitations, no chest pain, no syncope GI-no nausea, vomiting, diarrhea, melena, hematochezia -no urinary retention, no urinary incontinence, no dysuria, no hematuria Musculoskeletal-no joint pain, no muscle tenderness. Left BKA status. Chronic venous insufficiency of the right lower extremity with chronic edema and chronic erythema Skin-no bruising, no rashes, no pruritus Neuro-no isolated weakness, no paresthesia Psych-no depression, no anxiety Physical Exam 2 Physical Exam: General-alert and oriented x3, no fever, no chills HEENT-head atraumatic and normocephalic, pupils equal and reactive to light, extraocular muscles intact Neck-no lymphadenopathy or thyromegaly, trachea midline Chest-diminished breath sounds bilaterally with bibasilar inspiratory rales. No rhonchi. No wheezing iac-regular rate and rhythm, normal S1 and S2 Abdomen-normal bowel sounds, no hepatosplenomegaly Extremities-left BKA status. Right lower extremity with chronic venous insufficiency, chronic edema, excoriations, and erythema but overall improved after treatment for recent cellulitis no cyanosis, clubbing, or edema Neuro-cranial nerves II through XII intact, motor and sensory function within normal limits, strength symmetrical, no focal deficits Psych-flat affect Results & Data Results & Data Vital Signs (Past 12 Hours) Vital Signs Temp Pulse Pulse Resp BP Pulse Ox O2 Del Method 09/12/23 11:42 36.7 C 57 L 18 146/67 H 93 Room Air 09/12/23 09:00 Room Air 09/12/23 07:59 36.5 C 58 L 18 146/74 H 92 Room Air 09/12/23 06:59 57 L 09/12/23 02:46 36.5 C 58 L 16 151/65 H 91 Room Air Laboratory Results 09/12/23 13:14 PG Care Time/CCT Total # of Minutes Spent Total Time Spent with Patient: Total time spent is greater than 50% in coordination of care (as documented) at patient's floor/unit and/or counseling patient: Coding Level of Care Code 86579 SUB INP/OBS CARE 3/50MIN Diagnoses Hypoxia R09.02 Acute on chronic combined systolic and diastolic CHF (congestive heart failure) I50.43 Right leg swelling M79.89 Elevated troponin R79.89 CAD, multiple vessel I25.10 Generalized weakness R53.1 Chronic kidney disease, stage 4 (severe) N18.4 Type 2 diabetes mellitus E11.9
[2023-09-13 06:35] LABS: BUN Creatinine Ratio 23.4 (10-20); Calcium 8.9 mg/dl (8.6-10.3); Creatinine Clr Calc Pharmacy 20.1 ml/min; Est GFR (African American) 16.9 ml/min; Est GFR (Non-African American) 14.6 ml/min; Potassium 4.3 mmol/L (3.5-5.1)
[2023-09-13] MEDS: BUMETANIDE 1 MG TAB PO SCH (08:37)
--- NOTE | 2023-09-13 10:37 | Nephrology Consultation ---
Date of Consultation September 13, 2023 Assessment & Plan (1) Acute kidney injury: * ABDOULAYE/CKD due to CHF. Patient was non-adherent to prescribed diuretic therapy * Now clinically improved and breathing comfortably flat in bed on RA * Will hold diuretics. Once creatinine trends down, would then resume outpatient dose of Bumex 2 mg po BID * Monitor PRP * Will order urinalysis w/ microscopy * Hold renal US unless kidney function fails to improve w/ above therapy (2) Chronic kidney disease, stage 4 (severe): * CKD stage G4/A3 (advanced impairment). Baseline Cr 2.8-3.0 w/ EGFR 21 cc/min depending upon volume status. CKD has been attributed to DKD. L RC AVF created 01/[address] Howard (3) CHF (congestive heart failure): * Clinically improved (4) Cellulitis of right lower extremity: * Improving. 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 He might benefit from a [facility] pharmacy History of Present Illness Reason for Consultation: ABDOULAYE/CKD Attending Physician: Jess Link MD History of Present Illness Mr. Em is a 73 year old white male who is seen at the request of Dr. Link for evaluation of ABDOULAYE/CKD. Information for the HPI is obtained from direct patient interview and review of the EMR. HPI is summarized as follows: Mr. Em has CKD stage G4/A3 (advanced impairment). Baseline Cr 2.8-3.0 w/ EGFR 21 cc/min depending upon volume status. CKD has been attributed to DKD. Primary Registration Manager is Dr. Richardson. Mr. Em underwent L RC AVF creation 01/[address] Howard. PMH is significant for IDDM complicated by retinopathy, HTN, PVD s/p L BKA, ASCVD s/p CABG x4, nephrotic syndrome w/ chronic LLE swelling. Mr. Em was last hospitalized 08/26/23-09/03/23 due to LE cellulitis. His discharge weight was 101 kg. Mr. Em reports that he cur rently lives alone and does not drive due to poor visual acuity. Following discharge from the hospital he was unable to obtain his oral antibiotics. He did not take his diuretics because he could not read the label on the prescription bottles. On 09/09/23 Mr. Em was readmitted to [facility] w/ hypoxemia (RA SaO2 87%) and recurrent LLE cellulitis. His admission weight was 112 kg. CXR revealed interstitial pulmonary edema and bilateral pleural effusions. Therapy was provided w/ IV Bumetanide. Patient has diuresed 2.2 L. Creatinine has risen to 3.8. Mr. Em currently denies difficulty voiding, uremic symptoms. He has not been using NSAIDS. He reports that his breathing and LLE swelling are both improved. Allergies Allergy/AdvReac Type Severity Reaction Status Date / Time ofloxacin [From Floxin] Allergy Intermediate itching Verified 09/09/23 15:38 Quinolones Allergy Intermediate Itchiness Verified 09/09/23 15:38 sulfamethoxazole Allergy Intermediate Rash Verified 09/09/23 15:38 trimethoprim Allergy Intermediate Rash Verified 09/09/23 15:38 Home Medications Medication Instructions Recorded Confirmed Type latanoprost 0.005 % eye drops 1 drp OPB HS 12/27/17 09/09/23 History (Xalatan) cholecalciferol (vitamin D3) 50 2,000 units PO QAM 11/10/19 09/09/23 History mcg (2,000 unit) capsule (Vitamin D3) brimonidine 0.2 % eye drops 1 drp OPB BID 12/07/20 09/09/23 History dorzolamide 2 % eye drops 1 drp OPB BID 12/07/20 09/09/23 History timolol maleate 0.5 % eye gel 1 drp OPB BID 12/07/20 09/09/23 History forming solution ascorbic acid (vitamin C) 500 mg 500 mg PO QAM 02/19/21 09/09/23 History capsule calcitriol 0.5 mcg capsule 1 mcg (2 x 0.5 mcg) PO QAM #60 caps 01/25/23 09/09/23 Rx insulin regular human 100 unit/mL 1 sliding scale dose subcut 04/19/23 09/09/23 Rx injection solution (Humulin R USEASDIRECTD #10 mL Regular U-100 Insulin) cyanocobalamin (vitamin B-12) 500 1,000 mcg (2 x 500 mcg) PO QAM #0 05/04/23 09/09/23 Rx mcg tablet tabs ergocalciferol (vitamin D2) 1,250 50,000 unit PO WEEKLY #12 caps 05/27/23 09/09/23 Rx mcg (50,000 unit) capsule isosorbide mononitrate 30 mg 30 mg PO QAM #30 tabs 06/04/23 09/09/23 Rx tablet,extended release 24 hr metoprolol succinate 25 mg 25 mg PO QAM #30 tabs 06/04/23 09/09/23 Rx tablet,extended release 24 hr potassium chloride 20 mEq 10 meq (1/2 x 20 mEq) PO QAM #30 06/16/23 09/09/23 Rx tablet,extended release(part/cryst) tabs metolazone 5 mg tablet 5 mg PO Q OTHER DAY #45 tabs 06/25/23 09/09/23 Rx atorvastatin 80 mg tablet (Lipitor) 80 mg PO QAM #90 tabs 08/11/23 09/09/23 Rx ropinirole 1 mg tablet 3 mg (3 x 1 mg) PO HS #270 tabs 08/11/23 09/09/23 Rx ondansetron 4 mg disintegrating 4 mg PO Q8H PRN nausea and 08/23/23 09/09/23 Rx tablet vomiting #30 tabs amlodipine 5 mg tablet (Norvasc) 5 mg PO QAM #30 tabs 09/03/23 09/09/23 Rx aspirin 81 mg tablet,delayed 81 mg PO QAM #0 tabs 09/03/23 09/09/23 Rx release docusate sodium 100 mg capsule 100 mg PO BID #0 caps 09/03/23 09/09/23 Rx hydralazine 25 mg tablet 25 mg PO TID #90 tabs 09/03/23 09/09/23 Rx polyethylene glycol 3350 17 gram 17 g PO BID #0 ea 09/03/23 09/09/23 Rx oral powder packet (Miralax) ropinirole 1 mg tablet 1 mg PO XNK064 #60 tabs 09/03/23 09/09/23 Rx ropinirole 2 mg tablet 2 mg PO HS #30 tabs 09/03/23 09/09/23 Rx trazodone 100 mg tablet 100 mg PO HS #30 tabs 09/02/09/09/23 Rx bumetanide 2 mg tablet 2 mg PO DAILY #90 tabs 09/08/23 09/09/23 Rx doxycycline hyclate 100 mg tablet 100 mg PO BID 10 days #20 tabs 09/08/23 09/09/23 Rx insulin NPH isoph U-100 human 100 20 unit (0.2 mL) subcut BID #10 mL 09/08/23 09/09/23 Rx unit/mL subcutaneous suspension (Novolin N NPH U-100 Insulin isophane) sertraline 50 mg tablet 50 mg PO DAILY #90 tabs 09/08/23 09/09/23 Rx tramadol 50 mg tablet 50 mg PO DAILY #30 tabs 09/08/23 09/09/23 Rx Patient History Medical History Type 2 diabetes mellitus Ventricular bigeminy 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, with long-term current use of insulin (HFpEF) heart failure with preserved ejection fraction Acute kidney injury superimposed on chronic kidney disease Pressure ulcer of BKA stump, stage 3 RESOLVED Influenza A virus subtype H1 2009 pandemic strain present Slow to wake up after anesthesia Wound of lower extremity RLE wound "improved" per 01/27/21 wound clinic visit ([facility]); surgeon aware of patient's wound hx per 01/2021 office visit note; "only has a little scab there now, keeps it covered to protect it." Hypertension GERD (gastroesophageal reflux disease) History of TIA (transient ischemic attack) ~2009>over his left eye, no residual symptoms Surgical History S/P arteriovenous (AV) fistula creation left>no currently having dialysis History of esophagogastroduodenoscopy (EGD) History of colonoscopy S/P lumbar laminectomy S/P foot surgery S/P eye surgery B/L x3 (for glaucoma) S/P CABG x 4 (2011) CABG x4 (2011), [facility]; f/u PCP History of lumbar discectomy History of tonsillectomy Family History Father , age 78 with prostate cancer Colorectal cancer Cardiovascular disease Diabetes Prostate cancer Grandmother (Maternal) Diabetes Mother , age 54 of throat cancer Throat cancer Denies family history of Ovarian cancer Myocardial infarction Breast cancer Social History Smoking Status: Never smoker Second Hand Exposure: No; Do You Dip or Chew Tobacco: No; Tobacco Cessation Education Requested by Patient: No Hx Alcohol Use: No Hx Substance Use: No Preferred Language: Hebrew Communication Ability: Effective Visual Impairment: No Limitations Hearing Ability: Normal Flux Core Welder Required: No Beliefs That Will Affect Care: None marital status: / marital status details: lost August 2021 Current Living Situation: Alone current occupational status: retired current occupation: How many Children do You have: 2 Other Information That Helps Us Care for You: Yes (moving to [place]) other: Retired age 61-1/2. Feels Safe at Home: No Is there a partner from a previous relationship who is making you feel unsafe now?: No Any Concerns about Your Family Situation: No Would You Like to Speak to Someone About Your Situation: No Safety Concerns: Feels Safe At This Time and Afraid for Self Childhood Exposure to Second-Hand Smoke: No Diet: regular caffeine: No during the past year weight has: remained stable Dental Care, Regularly: Yes Physical Activity Frequency: Other Physical Activity Frequency Comment: limited d/t disability Seatbelt Use: always Sunscreen Use: Yes Assistive Devices: Prosthesis, Scooter/Electric Scooter and Walker Review of Systems Constitutional: no fever Eyes: no problem reported Ear, Nose, Mouth, Throat: no problem reported Respiratory: no dyspnea Cardiovascular: no chest pain Gastrointestinal: no abdominal pain, no nausea, no vomiting and no diarrhea/loose stools Genitourinary: no dysuria, no urinary hesitancy, no hematuria or no flank pain Integumentary: + erythema (LLE) Neurologic: no confusion Physical Exam Constitutional: not in distress Eyes: PERRL, conjunctivae normal, anicteric sclerae ENMT: external ear and nose normal, oropharynx normal Neck: trachea midline, no thyromegaly Respiratory: normal respiratory effort, lungs clear to auscultation Cardiovascular: RRR, no murmur, no edema (L RC AVF + bruit) Gastrointestinal (Abdomen): normal bowel sounds, soft, nontender, no hepatosplenomegaly Musculoskeletal: L BKA Neurologic: Speech / Cognition: normal speech and normal cognition Psychiatric: Affect: euthymic affect Results & Data Vital Signs (Past 12 Hours) Vital Signs Temp Pulse Pulse Resp BP Pulse Ox O2 Del Method 09/13/23 07:42 36.7 C 56 L 18 165/77 H 91 Room Air 09/13/23 06:00 55 L 09/13/23 02:09 36.3 C L 58 L 18 154/100 H 92 Room Air 09/12/23 22:48 36.4 C L 55 L 16 152/65 H 90 Room Air Laboratory Results Laboratory Results WBC 6.53 K/ul (4.8-10.8) 09/12/23 13:14 RBC 3.33 M/uL (4.70-6.10) L 09/12/23 13:14 Hgb 10.5 g/dl (14.0-18.0) L 09/12/23 13:14 Hct 32.2 % (42.0-52.0) L 09/12/23 13:14 MCV 96.7 fL (80.0-100.0) 09/12/23 13:14 MCH 31.5 pg (25.0-34.0) 09/12/23 13:14 MCHC 32.6 g/dL (32.0-36.0) 09/12/23 13:14 RDW Std Deviation 58.3 fL (36.4-46.3) H 09/12/23 13:14 RDW Coeff of Jose 16.7 % (11.5-14.5) H 09/12/23 13:14 Plt Count 133 K/uL (130-400) 09/12/23 13:14 MPV 12.6 fL (9.4-12.4) H 09/12/23 13:14 Immature Gran % (Auto) 0.5 % 09/12/23 13:14 Neut % (Auto) 78.1 % 09/12/23 13:14 Lymph % (Auto) 8.7 % 09/12/23 13:14 Petroleum % (Auto) 9.3 % 09/12/23 13:14 Eos % (Auto) 2.8 % 09/12/23 13:14 Baso % (Auto) 0.6 % 09/12/23 13:14 Neut # (Auto) 5.10 K/uL (1.40-6.50) 09/12/23 13:14 Lymph # (Auto) 0.57 K/uL (1.20-3.40) L 09/12/23 13:14 Petroleum # (Auto) 0.61 K/uL (0.11-0.59) H 09/12/23 13:14 Eos # (Auto) 0.18 K/uL (0.00-0.50) 09/12/23 13:14 Baso # (Auto) 0.04 K/uL (0.00-0.20) 09/12/23 13:14 Immature Gran # (Auto) 0.03 K/uL (0.01-0.20) 09/12/23 13:14 PT 13.0 Seconds (9.0-12.0) H 09/10/23 05:27 INR 1.2 (0.9-1.1) H 09/10/23 05:27 APTT 22 Seconds (21-31) 09/09/23 12:49 PTT Ratio 0.8 09/09/23 12:49 Sodium 136 mmol/L (136-145) 09/13/23 05:46 Potassium 4.3 mmol/L (3.5-5.1) 09/13/23 05:46 Chloride 101 mmol/L (98-107) 09/13/23 05:46 Carbon Dioxide 25 mmol/L (21-32) 09/13/23 05:46 Anion Gap 10 (3-11) 09/13/23 05:46 BUN 89 mg/dl (6-23) H 09/13/23 05:46 Creatinine 3.80 mg/dl (0.6-1.4) H D 09/13/23 05:46 Est Cr Clr Drug Dosing 20.1 ml/min 09/13/23 05:46 Est GFR ( Amer) 16.9 ml/min 09/13/23 05:46 Est GFR (Non-Af Amer) 14.6 ml/min 09/13/23 05:46 BUN/Creatinine Ratio 23.4 (10-20) H 09/13/23 05:46 Glucose 161 mg/dl (70-99(Fasting)) H 09/13/23 05:46 POC Glucose 156 mg/dl (70-99) H 09/13/23 08:06 Estimat Average Glucose 197 mg/dl 09/10/23 05:27 Hemoglobin A1c 8.5 % (4.5-5.6) H 09/10/23 05:27 Lactate 1.2 mmol/L (0.4-2.0) 09/09/23 12:49 Calcium 8.9 mg/dl (8.6-10.3) 09/13/23 05:46 Magnesium 2.1 mg/dl (1.7-2.4) 09/10/23 05:27 Total Bilirubin 0.8 mg/dl (0.2-1.0) 09/10/23 05:27 AST 21 U/L (13-39) 09/10/23 05:27 ALT 24 U/L (7-52) 09/10/23 05:27 Alkaline Phosphatase 69 U/L (34-104) 09/10/23 05:27 Troponin I High Sens 47.1 pg/ml (0-20) H 09/09/23 15:16 B-Natriuretic Peptide 2155 pg/ml (0-100) H 09/09/23 15:16 Total Protein 6.5 gm/dl (6.0-8.3) 09/10/23 05:27 Albumin 3.5 gm/dl (3.4-5.0) 09/10/23 05:27 Globulin 3.0 gm/dl (2.5-4.0) 09/10/23 05:27 Albumin/Globulin Ratio 1.2 (0.9-2) 09/10/23 05:27 Procalcitonin 0.12 ng/ml (0-0.5) 09/09/23 12:49 Urine Color Yellow 09/09/23 12:39 Urine Appearance Clear (Clear) 09/09/23 12:39 Urine pH 5.5 (4.5-7.5) 09/09/23 12:39 Ur Specific [place] 1.012 (1.000-1.030) 09/09/23 12:39 Urine Protein 3+ (Negative) H 09/09/23 12:39 Urine Glucose (UA) 1+ (Negative) H 09/09/23 12:39 Urine Ketones Negative (Negative) 09/09/23 12:39 Urine Blood 1+ (Negative) H 09/09/23 12:39 Urine Nitrite Negative (Negative) 09/09/23 12:39 Urine Bilirubin Negative (Negative) 09/09/23 12:39 Urine Urobilinogen Negative (Negative) 09/09/23 12:39 Ur Leukocyte Esterase Negative (Negative) 09/09/23 12:39 Urine WBC (Auto) 0-5 /hpf (0-5) 09/09/23 12:39 Urine RBC (Auto) 0-2 /hpf (0-2) 09/09/23 12:39 U Hyaline Cast (Auto) 3-5 /lpf (0-2) H 09/09/23 12:39 U Epithel Cells (Auto) 0-2 /hpf (0-2) 09/09/23 12:39 Urine Bacteria (Auto) None Seen (None Seen) 09/09/23 12:39 Staphylococcus sp PCR DETECTED (NotDetected) A 09/09/23 15:16 mecA/C-Methicil Resis Gene DETECTED (NotDetected) A 09/09/23 15:16 Staph epidermidis (PCR) DETECTED (NotDetected) A 09/09/23 15:16 Bld Cult ID Panel PCR See PCR Comment (NotDetected) 09/09/23 15:16 Impressions Chest X-Ray 09/11/23 08:00 XR chest 1V portable HISTORY: Shortness of breath. Congestive heart failure. COMPARISON: Chest 09/09/2023. FINDINGS: No pneumothorax. There are poststernotomy changes. Cardiomegaly, mild interstitial pulmonary edema, and small bilateral pleural effusions persist. Bibasilar densities are also unchanged and favor atelectasis. No acute fractures identified. There are poststernotomy changes. IMPRESSION: No significant change in the cardiomegaly, mild interstitial pulmonary edema, and small bilateral pleural effusions. ACT 112: Negative or not required by law. Electronically signed by: Abilio Soto M.D. 09/11/2023 8:21 AM PG Care Time/CCT Total # of Minutes Spent Total Time Spent with Patient: Total time spent is greater than 50% in coordination of care (as documented) at patient's floor/unit and/or counseling patient: Coding Level of Care Code 59643 IN/OBS CONSULT LVL 5,80M Diagnoses Acute kidney injury N17.9 Chronic kidney disease, stage 4 (severe) N18.4 CHF (congestive heart failure) I50.9 Heart failure chronicity: acute on chronic Heart failure type: unspecified Cellulitis of right lower extremity L03.115 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, unspecified laterality, unspecified proliferative retinopathy type E10.3599 Diabetes mellitus type: type 1 Proliferative retinopathy type: unspecified Laterality: unspecified laterality (3) CHF (congestive heart failure) Heart failure chronicity: acute on chronic Heart failure type: unspecified Qualified Code(s): I50.9 - Heart failure, unspecified (5) 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
--- NOTE | 2023-09-13 16:57 | Hospitalist Progress Note ---
Date of Service September 13, 2023 Assessment & Plan (1) Hypoxia: Plan: Acute hypoxic respiratory failure from recurrent CHF. Now resolved. He is on room air (2) Acute on chronic combined systolic and diastolic CHF (congestive heart failure): Plan: Likely 2/2 not taking diuretics after discharge last admission. Weight up significantly on admission from previous. Hypoxia now improved, weight down Improved with parenteral Bumex diuresis, but now feature writer bumped up to 3.8 with ABDOULAYE CXR September 10 improved HOLD further Bumex, watch feature writer daily weights, I/Os. low sodium diet (3) Right leg swelling: Plan: Chronic venous insufficiency with stasis dermatitis. Leg elevation as tolerated. Right lower extremity edema has improved somewhat with Bumex diuresis. He was recently treated for right lower extremity cellulitis last admission and this is resolved (4) Elevated troponin: Plan: Chronic. No evidence of acute coronary syndrome (5) CAD, multiple vessel: Plan: Stable. Continue current medical management with ASA, statin, and metoprolol (6) Generalized weakness: Plan: OT and PT both recommend eventual discharge to home with home health services (7) Chronic kidney disease, stage 4 (severe): Plan: With ABDOULAYE on CKD stage 4. Creatinine has bumped up with Bumex diuresis to 3.8 Consult Nephrology Hold further diuretics for now, then plan eventually to go home with Bumex 2mg po bid (previous dose was 4mg bid along with metolazone prior to last admission) Follow BMP (8) Type 2 diabetes mellitus: Plan: HgbA1C 8.5% -uncontrolled due to hyperglycemia Continue ADA diet. Sliding scale coverage. Basal insulin therapy (9) Ventricular tachycardia seen on bus driver/monitor: Plan: small runs, freqiuent bigeminy Appreciate Cardiology consult-no changes to meds Continue metoprolol continue ot monitor on tele (10) Depression: Plan: improved since last admission-increased Zoloft to 50mg daily and trazadone to 100mg hs last admit continue same meds (11) Restless leg syndrome: Plan: continue home Requip (12) HTN (hypertension), benign: Plan: BPs remain elevated Hydralazine was increased to 50mg po tid, but amlodipine was stopped continue metoprolol, isosorbide, hydralazine Plan DVT proph-heparin SQ Dispo-continued stay on med-tele Admission and Anticipated Discharge Date Admission Date: September 09, 2023 Subjective Pt feeling much better since admission. Not requiring O2, no SOB. No other real complaints Tele with SB, NSR, IVCD, gigem, rates 40-50s Physical Exam Constitutional: WD/WN, vitals as above Respiratory: normal respiratory effort Auscultation: + crackles (right base); no rhonchi and no wheezes Cardiovascular: Rate/Rhythm: regular rate and regular rhythm Heart Sounds: no murmur Extremities: + edema (right leg with 1+ edema) Skin: + lesion (scabbed over lesions right leg , no erythema) Results & Data Results & Data Vital Signs (Past 12 Hours) Vital Signs Temp Pulse Pulse Resp BP Pulse Ox O2 Del Method 09/13/23 16:06 61 09/13/23 16:01 36.6 C 58 L 18 161/64 H 93 Room Air 09/13/23 12:33 36.5 C 59 L 18 145/68 H 94 Room Air 09/13/23 07:42 36.7 C 56 L 18 165/77 H 91 Room Air 09/13/23 06:00 55 L Laboratory Results BMP, blood cxs reviewed PG Care Time/CCT Total # of Minutes Spent Total Time Spent with Patient: Total time spent is greater than 50% in coordination of care (as documented) at patient's floor/unit and/or counseling patient: Coding Level of Care Code 73560 SUB INP/OBS CARE 2/35MIN Diagnoses Hypoxia R09.02 Acute on chronic combined systolic and diastolic CHF (congestive heart failure) I50.43 Right leg swelling M79.89 Elevated troponin R79.89 CAD, multiple vessel I25.10 Generalized weakness R53.1 Chronic kidney disease, stage 4 (severe) N18.4 Type 2 diabetes mellitus E11.9 Ventricular tachycardia seen on bus driver/monitor I47.20 Depression F32.A Restless leg syndrome G25.81 HTN (hypertension), benign I10
[2023-09-13 19:21] LABS: Appearance Urine Clear (Clear); Bacteria Urine Automated None Seen (None Seen); Bilirubin Urine Negative (Negative); Blood Urine Negative (Negative); Color Urine Yellow; Epithelial Cell Urine Auto 0-2 /hpf (0-2); Glucose Urine UA Negative (Negative); Hyaline Casts Urine Present /lpf (None Presnt); Ketones Urine Negative (Negative); Leukocyte Esterase Urine Negative (Negative); Nitrite Urine Negative (Negative); Protein Urine 2+ (Negative); RBC Urine Automated 0-2 /hpf (0-2); Specific Gravity Urine 1.013 (1.000-1.030); Urobilinogen Urine Negative (Negative); WBC Urine Automated 0-5 /hpf (0-5); pH Urine 5.5 (4.5-7.5)
[2023-09-14] MEDS: PROCHLORPERAZINE 5 MG in SYRINGE 4 ML IV ONE (06:58)
[2023-09-14 07:02] LABS: Basophils # (auto) 0.04 K/uL (0.00-0.20); Basophils % (auto) 0.7 %; Eosinophils # (auto) 0.18 K/uL (0.00-0.50); Eosinophils % (auto) 3.1 %; Hematocrit (blood only) 35.4 % (42.0-52.0); Hemoglobin 11.4 g/dl (14.0-18.0); Immature Granulocytes # (auto) 0.02 K/uL (0.01-0.20); Immature Granulocytes % (auto) 0.3 %; Lymphocytes # (auto) 0.56 K/uL (1.20-3.40); Lymphocytes % (auto) 9.8 %; Mean Corpuscular Hemoglobin 31.1 pg (25.0-34.0); Mean Corpuscular Hgb Conc 32.2 g/dL (32.0-36.0); Mean Corpuscular Volume 96.5 fL (80.0-100.0); Mean Platelet Volume 12.7 fL (9.4-12.4); Monocytes # (auto) 0.54 K/uL (0.11-0.59); Monocytes % (auto) 9.4 %; Neutrophils # (auto) 4.38 K/uL (1.40-6.50); Neutrophils % (auto) 76.7 %; Platelet Count 125 K/uL (130-400); RDW Coefficient of Variation 16.5 % (11.5-14.5); RDW Standard Deviation 57.9 fL (36.4-46.3); Red Blood Count 3.67 M/uL (4.70-6.10); White Blood Count 5.72 K/ul (4.8-10.8)
[2023-09-14 07:23] LABS: BUN Creatinine Ratio 24.7 (10-20); Calcium 8.9 mg/dl (8.6-10.3); Creatinine Clr Calc Pharmacy 19.8 ml/min; Est GFR (African American) 16.6 ml/min; Est GFR (Non-African American) 14.4 ml/min; Potassium 4.1 mmol/L (3.5-5.1)
[2023-09-14] MEDS: LORazepam 0.5 MG TAB PO STA (08:03)
--- NOTE | 2023-09-14 08:36 | Nephrology Progress Note ---
Date of Service September 14, 2023 Assessment & Plan (1) Acute kidney injury: Plan: * ABDOULAYE/CKD due to CHF. Patient was non-adherent to prescribed diuretic therapy * 09/12/23 urinalysis: 2+ protein, no blood. Urine microscopy negative for cellular casts * CHF improved. Patient breathing comfortably on RA. Cr stable at 3.8 * Continue to hold diuretics. Once creatinine trends down, would then resume outpatient dose of Bumex 2 mg po BID * Monitor PRP (2) Chronic kidney disease, stage 4 (severe): Plan: * CKD stage G4/A3 (advanced impairment). Baseline Cr 2.8-3.0 w/ EGFR 21 cc/min depending upon volume status. CKD has been attributed to DKD. L RC AVF created 01/[address] Howard (3) CHF (congestive heart failure): Plan: * Clinically improved (4) Cellulitis of right lower extremity: Plan: * Improving. 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 He might benefit from a [facility] pharmacy Admission and Anticipated Discharge Date Admission Date: September 09, 2023 Subjective Mr. Em was evaluated in his hospital room this morning. He was sitting up in bed breathing comfortably on RA. He voiced no new medical concerns Review of Systems Constitutional: no fever Eyes: no problem reported Ear, Nose, Mouth, Throat: no problem reported Respiratory: no dyspnea Cardiovascular: no chest pain Gastrointestinal: no abdominal pain, no nausea, no vomiting and no diarrhe a/loose stools Genitourinary: no dysuria, no urinary hesitancy, no hematuria or no flank pain Integumentary: + erythema (LLE) Neurologic: no confusion Physical Exam Constitutional: not in distress Eyes: PERRL, conjunctivae normal, anicteric sclerae ENMT: external ear and nose normal, oropharynx normal Neck: trachea midline, no thyromegaly Respiratory: normal respiratory effort, lungs clear to auscultation Cardiovascular: RRR, no murmur, no edema (L RC AVF + bruit) Gastrointestinal (Abdomen): normal bowel sounds, soft, nontender, no hepatosplenomegaly Skin: RLE cellulitis improved Neurologic: Speech / Cognition: normal speech and normal cognition Psychiatric: Affect: euthymic affect Results & Data Vital Signs (Past 12 Hours) Vital Signs Temp Pulse Pulse Resp BP Pulse Ox O2 Del Method 09/14/23 07:47 36.6 C 66 22 148/82 H 90 Room Air 09/14/23 07:15 60 09/14/23 02:52 36.4 C L 54 L 16 155/72 H 90 Room Air 09/13/23 22:45 36.4 C L 54 L 16 139/60 90 Room Air 09/13/23 22:17 Room Air 09/13/23 22:01 52 L Laboratory Results Laboratory Results - last 24 hr 09/13/23 09/13/23 09/13/23 11:53 17:04 20:06 WBC RBC Hgb Hct MCV MCH MCHC RDW Std Deviation RDW Coeff of Jose Plt Count MPV Immature Gran % (Auto) Neut % (Auto) Lymph % (Auto) [place] % (Auto) Eos % (Auto) Baso % (Auto) Neut # (Auto) Lymph # (Auto) [place] # (Auto) Eos # (Auto) Baso # (Auto) Immature Gran # (Auto) Sodium Potassium Chloride Carbon Dioxide Anion Gap BUN Creatinine Est Cr Clr Drug Dosing Est GFR ( Amer) Est GFR (Non-Af Amer) BUN/Creatinine Ratio Glucose POC Glucose 178 H 193 H 214 H Calcium Urine Color Urine Appearance Urine pH Ur Specific [place] Urine Protein Urine Glucose (UA) Urine Ketones Urine Blood Urine Nitrite Urine Bilirubin Urine Urobilinogen Ur Leukocyte Esterase Urine WBC (Auto) Urine RBC (Auto) U Hyaline Cast (Auto) U Epithel Cells (Auto) Urine Bacteria (Auto) Hyaline Casts 09/13/23 09/14/23 09/14/23 Unknown 06:34 07:47 WBC 5.72 RBC 3.67 L Hgb 11.4 L Hct 35.4 L MCV 96.5 MCH 31.1 MCHC 32.2 RDW Std Deviation 57.9 H RDW Coeff of Jose 16.5 H Plt Count 125 L MPV 12.7 H Immature Gran % (Auto) 0.3 Neut % (Auto) 76.7 Lymph % (Auto) 9.8 [place] % (Auto) 9.4 Eos % (Auto) 3.1 Baso % (Auto) 0.7 Neut # (Auto) 4.38 Lymph # (Auto) 0.56 L [place] # (Auto) 0.54 Eos # (Auto) 0.18 Baso # (Auto) 0.04 Immature Gran # (Auto) 0.02 Sodium 137 Potassium 4.1 Chloride 101 Carbon Dioxide 26 Anion Gap 10 BUN 95 H Creatinine 3.85 H Est Cr Clr Drug Dosing 19.8 Est GFR ( Amer) 16.6 Est GFR (Non-Af Amer) 14.4 BUN/Creatinine Ratio 24.7 H Glucose 103 H POC Glucose 122 H Calcium 8.9 Urine Color Yellow Urine Appearance Clear Urine pH 5.5 Ur Specific [place] 1.013 Urine Protein 2+ H Urine Glucose (UA) Negative Urine Ketones Negative Urine Blood Negative Urine Nitrite Negative Urine Bilirubin Negative Urine Urobilinogen Negative Ur Leukocyte Esterase Negative Urine WBC (Auto) 0-5 Urine RBC (Auto) 0-2 U Hyaline Cast (Auto) 11-20 H U Epithel Cells (Auto) 0-2 Urine Bacteria (Auto) None Seen Hyaline Casts Present A PG Care Time/CCT Total # of Minutes Spent Total Time Spent with Patient: Total time spent is greater than 50% in coordination of care (as documented) at patient's floor/unit and/or counseling patient: Coding Level of Care Code 86793 SUB INP/OBS CARE 3/50MIN Diagnoses Acute kidney injury N17.9 Chronic kidney disease, stage 4 (severe) N18.4 CHF (congestive heart failure) I50.9 Heart failure chronicity: acute on chronic Heart failure type: unspecified Cellulitis of right lower extremity L03.115 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, unspecified laterality, unspecified proliferative retinopathy type E10.3599 Diabetes mellitus type: type 1 Laterality: unspecified laterality Proliferative retinopathy type: unspecified (3) CHF (congestive heart failure) Heart failure chronicity: acute on chronic Heart failure type: unspecified Qualified Code(s): I50.9 - Heart failure, unspecified (5) 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
--- NOTE | 2023-09-14 14:20 | Hospitalist Progress Note ---
Date of Service September 14, 2023 Assessment & Plan (1) Hypoxia: Plan: Acute hypoxic respiratory failure from recurrent CHF. Now resolved. He is on room air (2) Acute on chronic combined systolic and diastolic CHF (congestive heart failure): Plan: Likely 2/2 not taking diuretics after discharge last admission. Weight up significantly on admission from previous. Hypoxia now resolved, weight down Improved with parenteral Bumex diuresis, but cashier general bumped up to 3.85 with ABDOULAYE CXR September 10 improved Continue to HOLD further Bumex, watch cashier general, and resume Bumex 2mg po bid once cashier general trends back down as per Nephro daily weights, I/Os. low sodium diet (3) Right leg swelling: Plan: Chronic venous insufficiency with stasis dermatitis. Leg elevation as tolerated. Right lower extremity edema has improved somewhat with Bumex diuresis. 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 Creatinine has bumped up with Bumex diuresis to 3.85 Consult Nephrology Continue to hold further diuretics for now, then plan eventually to go home with Bumex 2mg po bid (previous dose was 4mg bid along with metolazone prior to last admission) Follow BMP (5) Elevated troponin: Plan: Chronic. No evidence of acute coronary syndrome (6) CAD, multiple vessel: Plan: Stable. Continue current medical management with ASA, statin, and metoprolol (7) Generalized weakness: Plan: OT and PT both recommend eventual discharge to home with home health services (8) Type 2 diabetes mellitus: Plan: HgbA1C 8.5% -uncontrolled due to hyperglycemia Continue ADA diet. Sliding scale coverage. Basal insulin therapy (9) Ventricular tachycardia seen on athletic monitor: Plan: small runs, freqiirvin bigeminy Appreciate Cardiology consult-no changes to meds Continue metoprolol continue to monitor on tele (10) Depression: Plan: improved since last admission-increased Zoloft to 50mg daily and trazadone to 100mg hs last admit continue same meds (11) Restless leg syndrome: Plan: continue home Requip (12) HTN (hypertension), benign: Plan: BPs remain elevated Hydralazine was increased to 50mg po tid, but amlodipine was stopped (unsure why) continue metoprolol, isosorbide, hydralazine and uptitrate as needed Plan DVT proph-heparin SQ Dispo-continued stay on med-tele, but dc to home with home health in 1-2 days when cashier general improves Pt requesting all Rxs be sent to [facility] in [place] on discharge as he is moving to [place] and his daughter in [place] can pickk up all his meds at [facility]. Admission and Anticipated Discharge Date Admission Date: September 09, 2023 Subjective Had nausea this AM and received compazine which worsened his anxiety and restless legs. This improved with ativan. He then ate breakfast and lunch wihtout any further problems. He is moving hiw bowels regularly. Denies SOB or any other issues. Tele with NSR, IVCD, frequent bigeminy, PVCs, rates 60-70s Physical Exam Constitutional: WD/WN, vitals as above Respiratory: normal respiratory effort Auscultation: + crackles (right ba se); no rhonchi and no wheezes Cardiovascular: Rate/Rhythm: regular rate and regular rhythm Heart Sounds: no murmur Extremities: + edema (right leg with 1+ edema) Skin: + lesion (scabbed over lesions right leg , no erythema) Psychiatric: Orientation: alert and oriented x 3 Results & Data Results & Data Vital Signs (Past 12 Hours) Vital Signs Temp Pulse Pulse Resp BP Pulse Ox O2 Del Method 09/14/23 11:51 36.6 C 60 18 144/58 H 92 Room Air 09/14/23 07:47 36.6 C 66 22 148/82 H 90 Room Air 09/14/23 07:15 60 09/14/23 02:52 36.4 C L 54 L 16 155/72 H 90 Room Air Laboratory Results CBC, BMP, UA reviewed PG Care Time/CCT Total # of Minutes Spent Total Time Spent with Patient: Total time spent is greater than 50% in coordination of care (as documented) at patient's floor/unit and/or counseling patient: Coding Level of Care Code 17622 SUB INP/OBS CARE 2/35MIN Diagnoses Hypoxia R09.02 Acute on chronic combined systolic and diastolic CHF (congestive heart failure) I50.43 Right leg swelling M79.89 Chronic kidney disease, stage 4 (severe) N18.4 Elevated troponin R79.89 CAD, multiple vessel I25.10 Generalized weakness R53.1 Type 2 diabetes mellitus E11.9 Ventricular tachycardia seen on athletic monitor I47.20 Depression F32.A Restless leg syndrome G25.81 HTN (hypertension), benign I10
[2023-09-15] MEDS: CARBOHYDRATES FOR HYPOGLYCEMIA PO PRN (01:05)
[2023-09-15 06:20] LABS: BUN Creatinine Ratio 27.4 (10-20); Calcium 8.8 mg/dl (8.6-10.3); Creatinine Clr Calc Pharmacy 17.7 ml/min; Est GFR (African American) 14.6 ml/min; Est GFR (Non-African American) 12.6 ml/min; Potassium 4.4 mmol/L (3.5-5.1)
--- NOTE | 2023-09-15 08:32 | Nephrology Progress Note ---
Date of Service September 15, 2023 Assessment & Plan (1) Acute kidney injury: Plan: * ABDOULAYE/CKD due to CHF. Patient was non-adherent to prescribed diuretic therapy * Patient remains in injury phase of ABDOULAYE. Cr has risen from 3.0 to 4.3. He remains nonoliguric and electrolyte balance is acceptable. No acute indication for HD at this time * Continue to hold diuretics. Will order CXR this am and consider gentle hydration * Monitor PRP (2) Chronic kidney disease, stage 4 (severe): Plan: * CKD stage G4/A3 (advanced impairment). Baseline Cr 2.8-3.0 w/ EGFR 21 cc/min depending upon volume status. CKD has been attributed to DKD. L RC AVF created 01/[address] Howard (3) CHF (congestive heart failure): Plan: * Clinically improved (4) Cellulitis of right lower extremity: Plan: * Improving. 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 He might benefit from a [facility] pharmacy Admission and Anticipated Discharge Date Admission Date: September 09, 2023 Subjective Mr. Em was evaluated in his hospital room this morning. He was sitting up in bed breathing comfortably on RA. He voiced no new medical concerns Review of Systems Constitutional: no fever Eyes: no problem reported Ear, Nose, Mouth, Throat: no problem reported Respiratory: no dyspnea Cardiovascular: no chest pain Gastrointestinal: no abdominal pain, no nausea, no vomiting and no diarrhea/loose stools Genitourinary: no dysuria, no urinary hesitancy, no hematuria or no flank pain Integumentary: + erythema (LLE) Neurologic: no confusion Physical Exam Constitutional: not in distress Eyes: PERRL, conjunctivae normal, anicteric sclerae ENMT: external ear and nose normal, oropharynx normal Neck: trachea midline, no thyromegaly Respiratory: normal respiratory effort, lungs clear to auscultation Cardiovascular: RRR, no murmur, no edema (L RC AVF + bruit) Gastrointestinal (Abdomen): normal bowel sounds, soft, nontender, no hepatosplenomegaly Neurologic: Speech / Cognition: normal speech and normal cognition Psychiatric: Affect: euthymic affect Results & Data Vital Signs (Past 12 Hours) Vital Signs Temp Pulse Pulse Resp BP Pulse Ox O2 Del Method 09/15/23 07:22 36.4 C L 66 19 174/84 H 93 Room Air 09/15/23 03:37 36.4 C L 64 18 141/86 H 92 Room Air 09/15/23 00:31 36.5 C 72 18 106/65 92 Room Air 09/14/23 22:20 59 L Laboratory Results Laboratory Results - last 24 hr 09/14/23 09/14/23 09/14/23 12:20 17:21 19:51 Sodium Potassium Chloride Carbon Dioxide Anion Gap BUN Creatinine Est Cr Clr Drug Dosing Est GFR ( Amer) Est GFR (Non-Af Amer) BUN/Creatinine Ratio Glucose POC Glucose 143 H 125 H 166 H Calcium 09/15/23 09/15/23 09/15/23 00:58 00:59 05:27 Sodium 136 Potassium 4.4 Chloride 102 Carbon Dioxide 23 Anion Gap 11 BUN 118 H D Creatinine 4.30 H D Est Cr Clr Drug Dosing 17.7 Est GFR ( Amer) 14.6 Est GFR (Non-Af Amer) 12.6 BUN/Creatinine Ratio 27.4 H Glucose 87 POC Glucose 72 84 Calcium 8.8 09/15/23 08:12 Sodium Potassium Chloride Carbon Dioxide Anion Gap BUN Creatinine Est Cr Clr Drug Dosing Est GFR ( Amer) Est GFR (Non-Af Amer) BUN/Creatinine Ratio Glucose POC Glucose 98 Calcium PG Care Time/CCT Total # of Minutes Spent Total Time Spent with Patient: Total time spent is greater than 50% in coordination of care (as documented) at patient's floor/unit and/or counseling patient: Coding Level of Care Code 91498 SUB INP/OBS CARE 3/50MIN Diagnoses Acute kidney injury N17.9 Chronic kidney disease, stage 4 (severe) N18.4 CHF (congestive heart failure) I50.9 Heart failure chronicity: acute on chronic Heart failure type: unspecified Cellulitis of right lower extremity L03.115 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, unspecified laterality, unspecified proliferative retinopathy type E10.3599 Diabetes mellitus type: type 1 Laterality: unspecified laterality Proliferative retinopathy type: unspecified (3) CHF (congestive heart failure) Heart failure chronicity: acute on chronic Heart failure type: unspecified Qualified Code(s): I50.9 - Heart failure, unspecified (5) 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
[2023-09-15] MEDS: hydrALAZINE HCL 25 MG TAB PO SCH (09:11)
--- NOTE | 2023-09-15 12:22 | XRay Report ---
XR chest 1V portable HISTORY: Congestive heart failure. Follow-up. COMPARISON: Chest 09/11/2023. FINDINGS: No pneumothorax. There are poststernotomy changes. The heart remains enlarged. Mild interst itial pulmonary edema remains unchanged. There are trace bilateral pleural effusions again noted. No new focal lung consolidations to suggest a pneumonia. No acute fractures. IMPRESSION: No significant change in the cardiomegaly, mild interstitial pulmonary edema, and trace bilateral ple ural effusions. ACT 112: Negative or not required by law. Electronically signed by: Abilio Soto M.D. 09/15/2023 12:21 PM
[2023-09-15] MEDS: SODIUM CHLORIDE 0.9% 1,000 ML IV SCH (12:46)
--- NOTE | 2023-09-15 16:36 | Hospitalist Progress Note ---
Date of Service September 15, 2023 Assessment & Plan (1) Hypoxia: Plan: Acute hypoxic respiratory failure from recurrent CHF. Now resolved. He is on room air Repeat CXR 09/14 with ongoing trace bilat effusions, pulm edema, cardiomegaly Monitor (2) Acute on chronic combined systolic and diastolic CHF (congestive heart failure): Plan: Likely 2/2 not taking diuretics after discharge last admission. Weight up significantly on admission from previous. CXR with pleural effusions, pulm edema Hypoxia now resolved, weight down Improved with parenteral Bumex diuresis, but stereoptician now continues to rise up to 4.3 with ABDOULAYE Continue to HOLD further Bumex, watch stereoptician, and resume Bumex 2mg po bid once stereoptician trends back down as per Nephro daily weights, I/Os. low sodium diet Give 500mL of NS x 1 now at 80mL/hr as per Nephro for worsening BUN/Compressor Operator Portable Watch for hypoxia, resp distress, monitor UOP (3) Chronic kidney disease, stage 4 (severe): Plan: With ABDOULAYE on CKD stage 4. Creatinine has bumped up with Bumex diuresis to 3.85 Consult Nephrology Continue to hold further diuretics for now, then plan eventually to go home with Bumex 2mg po bid (previous dose was 4mg bid along with metolazone prior to last admission) Follow BMP (4) Right leg swelling: Plan: Chronic venous insufficiency with stasis dermatitis. Leg elevation as tolerated. Right lower extremity edema has improved somewhat with Bumex diuresis. 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 No evidence of acute coronary syndrome (6) CAD, multiple vessel: Plan: Stable. Continue current medical management with ASA, statin, isosorbide, and metoprolol (7) Generalized weakness: Plan: OT and PT both recommend eventual discharge to home with home health services (8) Type 2 diabetes mellitus: Plan: HgbA1C 8.5% -uncontrolled due to hyperglycemia but controlled here in hospital Continue ADA diet. Sliding scale coverage. Basal and bolus insulin therapy (9) Ventricular tachycardia seen on patient monitor: Plan: small runs, freqiuent bigeminy Appreciate Cardiology consult-no changes to meds Continue metoprolol continue to monitor on tele (10) Depression: Plan: improved since last admission-increased Zoloft to 50mg daily and trazadone to 100mg hs last admit continue same meds (11) Restless leg syndrome: Plan: continue home Requip also received IV iron last admission (12) HTN (hypertension), benign: Plan: BPs remain elevated Increase Hydralazine again to 75mg po tid amlodipine was stopped (unsure why) byt previous hospitalist-could add back on but will continue to uptitrate hydralazine for now continue metoprolol, isosorbide Plan DVT proph-heparin SQ Dispo-continued stay on med-tele, but dc to home with home health once stereoptician improves Pt requesting all Rxs be sent to [facility] in [place] on discharge as he is moving to [place] and his daughter in [place] can pickk up all his meds at [facility]. Admission and Anticipated Discharge Date Admission Date: September 09, 2023 Subjective Pt reports a little FRIEDMAN with walking halls with PT today but otherwise feels well. Is making urine. Tele with bigem, SB and SR, rates 50-90s Physical Exam Constitutional: WD/WN, vitals as above Respiratory: normal respiratory effort Auscultation: + crackles (right base); no rhonchi and no wheezes Cardiovascular: Rate/Rhythm: regular rate and regular rhythm Heart Sounds: no murmur Extremities: + edema (right leg with 1+ edema) Skin: + lesion (scabbed over lesions right leg , no erythema) Psychiatric: Orientation: alert and oriented x 3 Results & Data Results & Data Vital Signs (Past 12 Hours) Vital Signs Temp Pulse Pulse Resp BP Pulse Ox O2 Del Method 09/15/23 15:15 36.6 C 60 19 152/66 H 93 Room Air 09/15/23 14:18 61 09/15/23 11:41 Room Air 09/15/23 10:56 36.3 C L 60 18 166/72 H 93 Room Air 09/15/23 07:22 36.4 C L 66 19 174/84 H 93 Room Air 09/15/23 06:03 58 L Laboratory Results BMP reviewed PG Care Time/CCT Total # of Minutes Spent Total Time Spent with Patient: Total time spent is greater than 50% in coordination of care (as documented) at patient's floor/unit and/or counseling patient: Coding Level of Care Code 75710 SUB INP/OBS CARE MIN Diagnoses Hypoxia R09.02 Acute on chronic combined systolic and diastolic CHF (congestive heart failure) I50.43 Chronic kidney disease, stage 4 (severe) N18.4 Right leg swelling M79.89 Elevated troponin R79.89 CAD, multiple vessel I25.10 Generalized weakness R53.1 Type 2 diabetes mellitus E11.9 Ventricular tachycardia seen on patient monitor I47.20 Depression F32.A Restless leg syndrome G25.81 HTN (hypertension), benign I10
[2023-09-16 08:28] LABS: Hematocrit (blood only) 35.6 % (42.0-52.0); Hemoglobin 11.5 g/dl (14.0-18.0); Mean Corpuscular Hemoglobin 31.5 pg (25.0-34.0); Mean Corpuscular Hgb Conc 32.3 g/dL (32.0-36.0); Mean Corpuscular Volume 97.5 fL (80.0-100.0); Mean Platelet Volume 12.5 fL (9.4-12.4); Platelet Count 130 K/uL (130-400); RDW Coefficient of Variation 16.7 % (11.5-14.5); RDW Standard Deviation 59.9 fL (36.4-46.3); Red Blood Count 3.65 M/uL (4.70-6.10); White Blood Count 5.98 K/ul (4.8-10.8)
--- NOTE | 2023-09-16 08:37 | Nephrology Progress Note ---
Date of Service September 16, 2023 Assessment & Plan (1) Acute kidney injury: Plan: * ABDOULAYE/CKD due to CHF. Patient was non-adherent to prescribed diuretic therapy * Patient is now entering recovery phase of ABDOULAYE. Cr has improved from 4.0 to 3.8. He remains nonoliguric and electrolyte balance is acceptable. No acute indication for HD at this time * 09/15/23 CXR shows mild pulmonary edema. Hold diuretics, monitor UO. Patient is net -1.5 L since admission * Monitor PRP (2) Chronic kidney disease, stage 4 (severe): Plan: * CKD stage G4/A3 (advanced impairment). Baseline Cr 2.8-3.0 w/ EGFR 21 cc/min depending upon volume status. CKD has been attributed to DKD. L RC AVF created 01/[address] Howard (3) CHF (congestive heart failure): Plan: * Clinically improved (4) Cellulitis of right lower extremity: Plan: * Improving. 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 He might benefit from a [facility] pharmacy Admission and Anticipated Discharge Date Admission Date: September 09, 2023 Subjective Mr. Em was evaluated in his hospital room this morning. He was sitting up in bed breathing comfortably on O2 at 2L/min NC He voiced no new medical concerns Review of Systems Constitutional: no fever Eyes: no problem reported Ear, Nose, Mouth, Throat: no problem reported Respiratory: no dyspnea Cardiovascular: no chest pain Gastrointestinal: no abdominal pain, no nausea, no vomiting and no diarrhea/loose stools Genitourinary: no dysuria, no urinary hesitancy, no hematuria or no flank pain Integumentary: + erythema (LLE) Neurologic: no confusion Physical Exam Constitutional: not in distress Eyes: PERRL, conjunctivae normal, anicteric sclerae ENMT: external ear and nose normal, oropharynx normal Neck: trachea midline, no thyromegaly Respiratory: normal respiratory effort, lungs clear to auscultation Cardiovascular: RRR, no murmur, no edema (L RC AVF + bruit) Gastrointestinal (Abdomen): normal bowel sounds, soft, nontender, no hepatosplenomegaly Neurologic: Speech / Cognition: normal speech and normal cognition Psychiatric: Affect: euthymic affect Results & Data Vital Signs (Past 12 Hours) Vital Signs Temp Pulse Pulse Resp BP Pulse Ox O2 Del Method 09/16/23 07:47 36.4 C L 42 L 17 165/97 H 93 Nasal Cannula 09/16/23 07:35 Room Air 09/16/23 07:09 64 09/16/23 03:47 36.3 C L 65 20 150/74 H 92 Room Air 09/15/23 23:32 36.5 C 60 18 138/71 90 Room Air 09/15/23 22:36 64 09/15/23 22:29 Room Air O2 Flow Rate 09/16/23 07:47 2 09/16/23 07:35 09/16/23 07:09 09/16/23 03:47 09/15/23 23:32 09/15/23 22:36 09/15/23 22:29 Laboratory Results Laboratory Results - last 24 hr 09/15/23 09/15/23 09/15/23 12:14 17:15 20:06 WBC RBC Hgb Hct MCV MCH MCHC RDW Std Deviation RDW Coeff of Jose Plt Count MPV Sodium Potassium Chloride Carbon Dioxide Anion Gap BUN Creatinine Est Cr Clr Drug Dosing Est GFR ( Amer) Est GFR (Non-Af Amer) BUN/Creatinine Ratio Glucose POC Glucose 135 H 137 H 162 H Calcium 09/16/23 09/16/23 09/16/23 00:41 07:46 07:57 WBC 5.98 RBC 3.65 L Hgb 11.5 L Hct 35.6 L MCV 97.5 MCH 31.5 MCHC 32.3 RDW Std Deviation 59.9 H RDW Coeff of Jose 16.7 H Plt Count 130 MPV 12.5 H Sodium 137 Potassium 5.1 Chloride 102 Carbon Dioxide 25 Anion Gap 10 BUN 120 H Creatinine 3.86 H D Est Cr Clr Drug Dosing 19.8 Est GFR ( Amer) 16.6 Est GFR (Non-Af Amer) 14.3 BUN/Creatinine Ratio 31.1 H Glucose 109 H POC Glucose 88 106 H Calcium 9.0 PG Care Time/CCT Total # of Minutes Spent Total Time Spent with Patient: Total time spent is greater than 50% in coordination of care (as documented) at patient's floor/unit and/or counseling patient: Coding Level of Care Code 37880 SUB INP/OBS CARE MIN Diagnoses Acute kidney injury N17.9 Chronic kidney disease, stage 4 (severe) N18.4 CHF (congestive heart failure) I50.9 Heart failure chronicity: acute on chronic Heart failure type: unspecified Cellulitis of right lower extremity L03.115 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, unspecified laterality, unspecified proliferative retinopathy type E10.3599 Diabetes mellitus type: type 1 Laterality: unspecified laterality Proliferative retinopathy type: unspecified (3) CHF (congestive heart failure) Heart failure chronicity: acute on chronic Heart failure type: unspecified Qualified Code(s): I50.9 - Heart failure, unspecified (5) 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
[2023-09-16 08:40] LABS: BUN Creatinine Ratio 31.1 (10-20); Creatinine Clr Calc Pharmacy 19.8 ml/min; Est GFR (African American) 16.6 ml/min; Est GFR (Non-African American) 14.3 ml/min; Potassium 5.1 mmol/L (3.5-5.1)
--- NOTE | 2023-09-16 13:10 | Hospitalist Progress Note ---
Date of Service September 16, 2023 Assessment & Plan (1) Hypoxia: Plan: Acute hypoxic respiratory failure from recurrent CHF. Now resolved. Repeat CXR 09/14 with ongoing trace bilat effusions, pulm edema, cardiomegaly remains on room air (2) Acute on chronic combined systolic and diastolic CHF (congestive heart failure): Plan: Likely 2/2 not taking diuretics after discharge last admission. Weight up significantly on admission from previous. CXR with pleural effusions, pulm edema Hypoxia now resolved, weight down Improved with parenteral Bumex diuresis, but ferry pilot now continues to rise up to 4.3 with ABDOULAYE Continue to HOLD further Bumex, watch ferry pilot, and resume Bumex 2mg po bid once ferry pilot trends back down as per Nephro daily weights, I/Os. low sodium diet 09/14: Given 500mL of NS x 1 now at 80mL/hr as per Nephro for worsening BUN/[place] Patching Machine Operator Watch for hypoxia, resp distress, monitor UOP will need follow-up with CHF clinic at dischargeHaley Chester PA-C aware of hospitalization net -1.5 L since admission however positive over the last few days (3) Chronic kidney disease, stage 4 (severe): Plan: With ABDOULAYE on CKD stage 4. Creatinine has bumped up with Bumex diuresis to 3.85 Consult Nephrology -Continue to hold further diuretics for now, then plan eventually to go home with Bumex 2mg po bid (previous dose was 4mg bid along with metolazone prior to last admission) Follow BMP (4) Right leg swelling: Plan: Chronic venous insufficiency with stasis dermatitis. Leg elevation as tolerated. Right lower extremity edema has improved somewhat with Bumex diuresis. 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 Sliding scale coverage. Basal and bolus insulin therapy (7) Ventricular tachycardia seen on refrigeration mechanic helper: Plan: small runs, freqiuent bigeminy Appreciate Cardiology consult-no changes to meds Continue metoprolol continue to monitor on tele (8) HTN (hypertension), benign: Plan: Increase Hydralazine again to 75mg po tid amlodipine was stopped (unsure why) byt previous hospitalist-could add back on but will continue to uptitrate hydralazine for now continue metoprolol, isosorbide Plan chronic stable medical conditions: * Restless leg syndromecontinue Requip * depression continue on Zoloft 50 mg and trazodone 100 mg * CAD - continue ASA, statin, isosorbide, and metoprolol DVT proph-heparin SQ Dispo-continued stay on med-tele, but dc to home with home health once ferry pilot improves Pt requesting all Rxs be sent to [facility] in [place] on discharge as he is moving to [place] and his daughter in law can pepper picker all his meds at [facility]. Admission and Anticipated Discharge Date Admission Date: September 09, 2023 Subjective patient seen sitting at the side of the bed, just returned from a walk. States that he is feeling well. Understands needs to find a balance with his kidney function. Anxious to return home.. Good appetite and moving bowels No acute concerns Review of Systems Review of Systems: All systems reviewed & are unremarkable except as noted in Subjective Physical Exam Physical Exam: General: NAD, VS as above Resp: normal respiratory effort, lungs clear to auscultation. on room air CV: RRR, no murmur, Abd: normal bowel sounds, non tender, no hepatosplenomegaly Extremities: Moves all extremities, no edema. left BKA Neuro: A&O x3, Results & Data Results & Data Vital Signs (Past 12 Hours) Vital Signs Temp Pulse Pulse Resp BP Pulse Ox O2 Del Method 09/16/23 11:52 36.4 C L 61 18 160/82 H 92 Room Air 09/16/23 07:47 36.4 C L 42 L 17 165/97 H 93 Nasal Cannula 09/16/23 07:35 Room Air 09/16/23 07:09 64 09/16/23 03:47 36.3 C L 65 20 150/74 H 92 Room Air O2 Flow Rate 09/16/23 11:52 09/16/23 07:47 2 09/16/23 07:35 09/16/23 07:09 09/16/23 03:47 Laboratory Results BMP reviewed CBC reviewed PG Care Time/CCT Total # of Minutes Spent Total Time Spent with Patient: Total time spent is greater than 50% in coordination of care (as documented) at patient's floor/unit and/or counseling patient: Coding Level of Care Code 02384 SUB INP/OBS CARE 2/35MIN Diagnoses Hypoxia R09.02 Acute on chronic combined systolic and diastolic CHF (congestive heart failure) I50.43 Chronic kidney disease, stage 4 (severe) N18.4 Right leg swelling M79.89 Generalized weakness R53.1 Type 2 diabetes mellitus E11.9 Ventricular tachycardia seen on refrigeration mechanic helper I47.20 HTN (hypertension), benign I10
[2023-09-17 06:24] LABS: Hematocrit (blood only) 34.3 % (42.0-52.0); Hemoglobin 11.1 g/dl (14.0-18.0); Mean Corpuscular Hemoglobin 31.2 pg (25.0-34.0); Mean Corpuscular Hgb Conc 32.4 g/dL (32.0-36.0); Mean Corpuscular Volume 96.3 fL (80.0-100.0); Platelet Count 129 K/uL (130-400); RDW Coefficient of Variation 16.5 % (11.5-14.5); RDW Standard Deviation 58.1 fL (36.4-46.3); Red Blood Count 3.56 M/uL (4.70-6.10); White Blood Count 5.86 K/ul (4.8-10.8)
[2023-09-17 06:31] LABS: Calcium 9.1 mg/dl (8.6-10.3); Creatinine Clr Calc Pharmacy 22.1 ml/min; Est GFR (African American) 18.9 ml/min; Est GFR (Non-African American) 16.3 ml/min; Potassium 4.2 mmol/L (3.5-5.1)
--- NOTE | 2023-09-17 08:24 | Nephrology Progress Note ---
Date of Service September 17, 2023 Assessment & Plan (1) Acute kidney injury: Plan: * ABDOULAYE/CKD due to CHF. Patient was non-adherent to prescribed diuretic therapy * Patient remains in the recovery phase of ABDOULAYE. Cr has improved from 4.0 to 3.47. He remains nonoliguric and electrolyte balance is acceptable. No acute indication for HD at this time * 09/15/23 CXR shows mild pulmonary edema. Hold diuretics, monitor UO. Patient is net -1.4 L since admission * Patient is nearing baseline kidney function. OK to discharge home once arrangements for pharmacy delivery of medications are set up by case management. Recommend continuing Bumex 2 mg qAM, no metolazone at time of discharge. Will also need education on low Na diet. I have contacted my office staff and arranged Nephrology follow up w/ Dr. Richardson in 7-10 days. Orders were placed in outpatient EMR for nonfasting labs 1-2 days prior to visit (2) Chronic kidney disease, stage 4 (severe): Plan: * CKD stage G4/A3 (advanced impairment). Baseline Cr 2.8-3.0 w/ EGFR 21 cc/min depending upon volume status. CKD has been attributed to DKD. L RC AVF created 01/[address] Howard (3) CHF (congestive heart failure): Plan: * Clinically improved (4) Cellulitis of right lower extremity: Plan: * Improving. 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 He might benefit from a [facility] pharmacy Admission and Anticipated Discharge Date Admission Date: September 09, 2023 Subjective Mr. Em was evaluated in his hospital room this morning. He was sitting up in bed breathing comfortably on RA He voiced no new medical concerns Review of Systems Constitutional: no fever Eyes: no problem reported Ear, Nose, Mouth, Throat: no problem reported Respiratory: no dyspnea Cardiovascular: no chest pain Gastrointestinal: no abdominal pain, no nausea, no vomiting and no diarrhea/loose stools Genitourinary: no dysuria, no urinary hesitancy, no hematuria or no flank pain Neurologic: no confusion Physical Exam Constitutional: not in distress Eyes: PERRL, conjunctivae normal, anicteric sclerae ENMT: external ear and nose normal, oropharynx normal Neck: trachea midline, no thyromegaly Respiratory: normal respiratory effort, lungs clear to auscultation Cardiovascular: RRR, no murmur, no edema (L RC AVF + bruit) Gastrointestinal (Abdomen): normal bowel sounds, soft, nontender, no hepatosplenomegaly Neurologic: Speech / Cognition: normal speech and normal cognition Psychiatric: Affect: euthymic affect Results & Data Vital Signs (Past 12 Hours) Vital Signs Temp Pulse Pulse Resp BP Pulse Ox O2 Del Method 09/17/23 07:14 Room Air 09/17/23 07:00 60 09/17/23 04:47 150/62 H 09/17/23 04:13 36.5 C 47 L 16 84/55 L 93 Room Air 09/16/23 23:30 36.4 C L 46 L 18 133/66 93 Room Air 09/16/23 23:10 54 L 09/16/23 21:55 Room Air Laboratory Results Laboratory Results - last 24 hr 09/16/23 09/16/23 09/16/23 07:57 12:09 17:07 WBC 5.98 RBC 3.65 L Hgb 11.5 L Hct 35.6 L MCV 97.5 MCH 31.5 MCHC 32.3 RDW Std Deviation 59.9 H RDW Coeff of Jose 16.7 H Plt Count 130 MPV 12.5 H Sodium 137 Potassium 5.1 Chloride 102 Carbon Dioxide 25 Anion Gap 10 BUN 120 H Creatinine 3.86 H D Est Cr Clr Drug Dosing 19.8 Est GFR ( Amer) 16.6 Est GFR (Non-Af Amer) 14.3 BUN/Creatinine Ratio 31.1 H Glucose 109 H POC Glucose 151 H 236 H Calcium 9.0 Hepatitis C Ab (EIA) 09/16/23 09/17/23 09/17/23 20:24 05:35 08:11 WBC 5.86 RBC 3.56 L Hgb 11.1 L Hct 34.3 L MCV 96.3 MCH 31.2 MCHC 32.4 RDW Std Deviation 58.1 H RDW Coeff of Jose 16.5 H Plt Count 129 L MPV 13.0 H Sodium 136 Potassium 4.2 Chloride 103 Carbon Dioxide 22 Anion Gap 11 BUN 125 H Creatinine 3.47 H D Est Cr Clr Drug Dosing 22.1 Est GFR ( Amer) 18.9 Est GFR (Non-Af Amer) 16.3 BUN/Creatinine Ratio 36.0 H Glucose 93 POC Glucose 159 H 115 H Calcium 9.1 Hepatitis C Ab (EIA) Pending PG Care Time/CCT Total # of Minutes Spent Total Time Spent with Patient: Total time spent is greater than 50% in coordination of care (as documented) at patient's floor/unit and/or counseling patient: Coding Level of Care Code 47467 SUB INP/OBS CARE 3/50MIN Diagnoses Acute kidney injury N17.9 Chronic kidney disease, stage 4 (severe) N18.4 CHF (congestive heart failure) I50.9 Heart failure chronicity: acute on chronic Heart failure type: unspecified Cellulitis of right lower extremity L03.115 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, unspecified laterality, unspecified proliferative retinopathy type E10.3599 Diabetes mellitus type: type 1 Laterality: unspecified laterality Proliferative retinopathy type: unspecified (3) CHF (congestive heart failure) Heart failure chronicity: acute on chronic Heart failure type: unspecified Qualified Code(s): I50.9 - Heart failure, unspecified (5) 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
[2023-09-17 08:42] VITALS: O2SAT 92
[2023-09-17 11:33] VITALS: BP 159/81; PULSE 59; RESP 17; TEMP 97.5
--- NOTE | 2023-09-17 12:44 | Discharge Summary ---
Discharge Summary Date of Service September 17, 2023 Principal Dx & Hospital Course #1 = Principal Diagnosis (1) Acute on chronic combined systolic and diastolic CHF (congestive heart failure): Likely 2/2 not taking diuretics after discharge last admission. Weight up significantly on admission from previous. CXR with pleural effusions, pulm edema Hypoxia now resolved, weight down Improved with parenteral Bumex diuresis, but then devloped an ABDOULAYE - which is now improving Resume Bumex 2mg qAM 6/8 daily weights, I/Os. low sodium diet Will need follow-up with CHF clinic at dischargeHaley Chester PA-C aware of hospitalization net -1.3 L since admission (2) Hypoxia: Acute hypoxic respiratory failure from recurrent CHF. Now resolved. Repeat CXR 09/14 with ongoing trace bilat effusions, pulm edema, cardiomegaly remains on room air (3) Chronic kidney disease, stage 4 (severe): With ABDOULAYE on CKD stage 4. Creatinine has bumped up with Bumex diuresis to 3.85 Consult Nephrology - ABDOULAYE improving, can resume Bumex 2 mg every morning. Nephrology follow-up (4) Right leg swelling: Chronic venous insufficiency with stasis dermatitis. Leg elevation as tolerated. Right lower extremity edema has improved somewhat with Bumex diuresis. 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 Could consider in the outpatient setting. 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 Notes For Next Care Provider patient admitted with shortness of breath. Found to be a CHF exacerbation after not taking diuretics. Diuresed well, unfortunately got an ABDOULAYE which is improving. Discharged on Bumex 2 mg daily. Suspect noncompliance from patient as he is unable to see and read his me dication labels. Informed me that his hgjnvygp-qm-lfy will be helping manage his medications. I provided large print discharge instructions and medication list to patient with multiple copies. Also sent this list to his ambulatory manager case, Corrie. I have also sent in all of his chronic prescriptions to the [facility], which is the pharmacy that his kjjhlwja-xr-wcy uses and hopefully will work better for him. Consider outpatient Holter monitor Medication Changes From Visit Below is a list of medication changes from this visit: * Stop Amlodipine * Increase Hydralazine to 75mg three times a day * Bumex 2mg every morning It is VERY IMPORTANT you take this * Stop Metolazone * Stop Potassium Admission HPI Per Admitting Provider [place] is a 72 year old male with a PMH significant for stage 4 CKD with Nephrotic syndrome, DMI, Cardiomyopathy, CAD s/p CABG x 4 (2011 at [facility] [place] consisting of ZURITA to LAD, SVG to OM and sequential graft to diagonal, SVG to RCA PDA), HFrEF(Mildly reduced LVEF, grade II diastolic dysfunction), S/P left BKA, previous CVA who presented to the [facility] ED on 09/09/23 with complaints of He was noted to be hypertensive at 178/89 and hypoxic at 84% on RA but otherwise stable. Labs were significant for an INR of 1.2, stable renal function/electrolytes, initial high sen trop of 37, UA with 3+ protein, 1+ glucose, 1+ blood, 3-5 hyaline casts. CXR was read as No significant change in the cardiomegaly, mild interstitial pulmonary edema, and small bilateral pleural effusions.. Prior to admission the patient was given a dose of cefepime and 2mg IV bumex. At the time of the exam the patient was sitting on the side of his bed in no acute distress, he is disheveled and appears to have poor hygiene. States that he was supposed to have been prescribed oral antibiotics on last admission but the pharmacy never delivered them to his home. Was seen at his PCP's office on 09/06, they reportedly prescribed him abx as well but he was unable to read the labels on the recently delivered pill bottles so he was not taking his new medications. His vision is chronically poor, denies acute changes. Has had progressive SOB/FRIEDMAN and orthopnea since being discharged home. Is generally weak and feels he is deconditioned. His RLE is painful like his last admission for cellulitis. Denies recent fever, chills, chest pain, hemoptysis, abd pain, nausea, vomiting, diarrhea, dysuria, hematuria, melena, and recent falls. He is will to consider home PT/OT or an inpatient rehab stay at the time of discharge. He is a full code and his son is his POA. Patient was recently admitted to [facility] from 08/25-09/02 for cellulitis of the RLE, ABDOULAYE on CKD. He was treated with IV cefepime and daptomycin for 5 days and then converted to Augmentin with his last dose of 09/02/23. His diuretics were held on admission and Neprology was consult. He was eventually discharged on 2mg PO Bumex daily, and was newly prescribed hydralazine, amlodipine, trazodone, requip, aspirin, and bowel regimen on discharge. See DC summary from 09/03/23 for full details. Please refer to Dr. Woodward's attestation for any changes to the treatment plan Discharge Exam General: NAD, VS as above Resp: normal respiratory effort, lungs clear to auscultation. on room air CV: RRR, no murmur, Abd: normal bowel sounds, non tender, no hepatosplenomegaly Extremities: Moves all extremities, no edema. left BKA Neuro: A&O x3, Updated Medication List Medication Instructions Recorded Confirmed Type latanoprost 0.005 % eye drops 1 drp OPB HS 12/27/18 09/09/23 History (Xalatan) cholecalciferol (vitamin D3) 50 2,000 units PO QAM 11/10/19 09/09/23 History mcg (2,000 unit) capsule (Vitamin D3) brimonidine 0.2 % eye drops 1 drp OPB BID 12/07/20 09/09/23 History dorzolamide 2 % eye drops 1 drp OPB BID 12/07/20 09/09/23 History timolol maleate 0.5 % eye gel 1 drp OPB BID 12/07/20 09/09/23 History forming solution ascorbic acid (vitamin C) 500 mg 500 mg PO QAM 02/19/21 09/09/23 History capsule insulin regular human 100 unit/mL 1 sliding scale dose subcut 04/19/23 09/09/23 Rx injection solution (Humulin R USEASDIRECTD #10 mL Regular U-100 Insulin) cyanocobalamin (vitamin B-12) 500 1,000 mcg (2 x 500 mcg) PO QAM #0 05/04/23 09/09/23 Rx mcg tablet tabs ergocalciferol (vitamin D2) 1,250 50,000 unit PO WEEKLY #12 caps 05/27/23 09/09/23 Rx mcg (50,000 unit) capsule ondansetron 4 mg disintegrating 4 mg PO Q8H PRN nausea and 08/23/23 09/09/23 Rx tablet vomiting #30 tabs docusate sodium 100 mg capsule 100 mg PO BID #0 caps 09/03/23 09/09/23 Rx polyethylene glycol 3350 17 gram 17 g PO BID #0 ea 09/03/23 09/09/23 Rx oral powder packet (Miralax) insulin NPH isoph U-100 human 100 20 unit (0.2 mL) subcut BID #10 mL 09/08/23 09/09/23 Rx unit/mL subcutaneous suspension (Novolin N NPH U-100 Insulin isophane) tramadol 50 mg tablet 50 mg PO DAILY #30 tabs 09/08/23 09/09/23 Rx aspirin 81 mg tablet,delayed 81 mg PO QAM #90 tabs 09/17/23 Rx release atorvastatin 80 mg tablet (Lipitor) 80 mg PO QAM #90 tabs 09/17/23 Rx bumetanide 2 mg tablet 2 mg PO DAILY #90 tabs 09/17/23 Rx calcitriol 0.5 mcg capsule 1 mcg (2 x 0.5 mcg) PO QAM #60 caps 09/17/23 Rx hydralazine 25 mg tablet 75 mg (3 x 25 mg) PO TID 90 days 09/17/23 Rx #810 tabs isosorbide mononitrate 30 mg 30 mg PO QAM 90 days #90 tabs 09/17/23 Rx tablet,extended release 24 hr metoprolol succinate 25 mg 25 mg PO QAM #90 tabs 09/17/23 Rx tablet,extended release 24 hr ropinirole 1 mg tablet 1 mg PO GEQ855 #60 tabs 09/17/23 Rx ropinirole 1 mg tablet 3 mg (3 x 1 mg) PO HS #270 tabs 09/17/23 Rx sertraline 50 mg tablet 50 mg PO DAILY #90 tabs 09/17/23 Rx trazodone 100 mg tablet 100 mg PO HS #30 tabs 09/17/23 Rx Hospital Stay Data Consultations 09/09/23 14:29 ED Decision to Admit Stat 09/10/23 11:43 Consult Cardiology Routine 09/13/23 07:58 Consult Nephrology Routine Diagnostic Imagining Performed Chest X-Ray 09/09/23 12:12 XR chest 1V portable HISTORY: Sepsis COMPARISON: Chest 08/26/2023. FINDINGS: No pneumothorax. There are poststernotomy changes. Cardiomegaly, mild interstitial pulmonary edema, and small bilateral pleural effusions persist. Bibasilar densities are also unchanged and favor atelectasis. No acute fractures identified. There are poststernotomy changes. IMPRESSION: No significant change in the cardiomegaly, mild interstitial pulmonary edema, and small bilateral pleural effusions. ACT 112: Negative or not required by law. Electronically signed by: Abilio Soto M.D. 09/09/2023 2:11 PM Chest X-Ray 09/11/23 08:00 XR chest 1V portable HISTORY: Shortness of breath. Congestive heart failure. COMPARISON: Chest 09/09/2023. FINDINGS: No pneumothorax. There are poststernotomy changes. Cardiomegaly, mild interstitial pulmonary edema, and small bilateral pleural effusions persist. Bibasilar densities are also unchanged and favor atelectasis. No acute fractures identified. There are poststernotomy changes. IMPRESSION: No significant change in the cardiomegaly, mild interstitial pulmonary edema, and small bilateral pleural effusions. ACT 112: Negative or not required by law. Electronically signed by: Abilio Soto M.D. 09/11/2023 8:21 AM Chest X-Ray 09/15/23 09:50 XR chest 1V portable HISTORY: Congestive heart failure. Follow-up. COMPARISON: Chest 09/11/2023. FINDINGS: No pneumothorax. There are poststernotomy changes. The heart remains enlarged. Mild interstitial pulmonary edema remains unchanged. There are trace bilateral pleural effusions again noted. No new focal lung consolidations to s uggest a pneumonia. No acute fractures. IMPRESSION: No significant change in the cardiomegaly, mild interstitial pulmonary edema, and trace bilateral pleural effusions. ACT 112: Negative or not required by law. Electronically signed by: Abilio Soto M.D. 09/15/2023 12:21 PM Pending Results Patient Have Any Pending Studies at Discharge: No Discharge Instructions Given to Patient (Per Discharging Provider) Mr. Em, You were hospitalized after being short of breath, and you were found to be fluid overloaded from your CHF. You underwent diuresis and your breathing improved. Unfortunately, because of the diuresis you had an acute kidney injury, but this has slowly been improving. 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 All of those appointments are listed. I did not make any changes to your diabetic regimen or your eyedrops. Your eyedrops are listed separately on your medication list. Below is a list of medication changes from this visit: * Stop Amlodipine * Increase Hydralazine to 75mg three times a day * Bumex 2mg every morning It is VERY IMPORTANT you take this * Stop Metolazone * Stop Potassium I will also provide you with an updated list of your medications. Medications: Your medication list has been reviewed and reconciled upon discharge to ensure accuracy and continuity of care. An updated list of all your medications is included with your hospital discharge paperwork. Please review this list closely, and make note of any changes. Take your medications as instructed; do not skip a dose of your medicines. Make sure all of your doctors know every medicine you are taking (including necm-jpc-aewblmy medicines, vitamins, and supplements). Call your primary care provider before taking any new medicines (including over- the-counter medicines, vitamins, and supplements), because some of these may interact with your current medications, or may make your symptoms worse. Tell your primary care provider if you cannot afford your medications. Activity: You can do normal everyday activities as your body allows. Take rest breaks if you feel tired. Do not overexert. Stop activity if you have pain, shortness of breath or feel dizzy. Follow-up appointments: Make an appointment with your primary care physician within one week of discharge. A copy of this summary will be sent to them. Every time you see your primary care physician, or any other doctor, bring your medication list, and a list of questions. CONTACT YOUR PRIMARY CARE PROVIDER if you experience any of the following: Shortness of breath or difficulty breathing Fevers or chills Feeling tired with normal activity or experiencing dizziness or fainting Difficulty following your treatment plan, or difficulty taking medications CALL 911 OR GO TO THE EMERGENCY DEPARTMENT if you experience any of the following: Severe abdominal pain or nausea/vomiting Severe chest pain, or chest pain that radiates (moves) to your jaw or arm Sudden, severe shortness of breath or difficulty breathing Thank you for allowing us to participate in your care. Total Time Total Time Spent Total Time Spent (In Minutes): Time spend day of discharge 90 minutes including direct patient care, medication reconciliation, documentation, review of labs and images, and coordination of care. extensive time spent in coordination with case management and providing patient with discharge instructions that he is able to read and resending all of his prescriptions Coding Level of Care Code 35240 INP/OBS DISCH >30 MIN Diagnoses Acute on chronic combined systolic and diastolic CHF (congestive heart failure) I50.43 Hypoxia R09.02 Chronic kidney disease, stage 4 (severe) N18.4 Right leg swelling M79.89 Generalized weakness R53.1 Type 2 diabetes mellitus E11.9 Ventricular tachycardia seen on quality assurance monitor chassis I47.20 HTN (hypertension), benign I10
== END 2023-09-17 13:25 | disposition home health service (06) | DRG 291 ==
LOC: ED 11:45 → EDINP 14:51 → SUATTDRO 14:51 → 2N 15:48
DX: R53.1 Weakness; E10.21 Type 1 diabetes mellitus with diabetic nephropathy; I25.10 Atherosclerotic heart disease of native coronary artery without angina pectoris; E10.65 Type 1 diabetes mellitus with hyperglycemia; Z88.2 Allergy status to sulfonamides; I87.2 Venous insufficiency (chronic) (peripheral); Z89.512 Acquired absence of left leg below knee; J90 Pleural effusion, not elsewhere classified; L03.115 Cellulitis of right lower limb; N18.4 Chronic kidney disease, stage 4 (severe); I34.0 Nonrheumatic mitral (valve) insufficiency; Z95.1 Presence of aortocoronary bypass graft; I13.0 Hypertensive heart and chronic kidney disease with heart failure and stage 1 through stage 4 chronic kidney disease, or unspecified chronic kidney disease; I47.20 Ventricular tachycardia, unspecified; Z83.3 Family history of diabetes mellitus; Z88.8 Allergy status to other drugs, medicaments and biological substances; Z91.148 Patient's other noncompliance with medication regimen for other reason; N17.9 Acute kidney failure, unspecified; I50.43 Acute on chronic combined systolic (congestive) and diastolic (congestive) heart failure; G25.81 Restless legs syndrome; I42.9 Cardiomyopathy, unspecified; N04.9 Nephrotic syndrome with unspecified morphologic changes; J96.21 Acute and chronic respiratory failure with hypoxia

== ENCOUNTER 2023-09-28 15:12 | Inpatient (IN) ==
[2023-09-28 15:56] LABS: iSTAT Creatinine 4.5 mg/dl (0.6-1.3); iSTAT Hemoglobin 12.2 g/dl (14.0-18.0); iSTAT Ionized Calcium 1.17 mmol/l (1.12-1.32); iSTAT Potassium 5.6 mmol/L (3.3-5.0)
--- NOTE | 2023-09-28 16:01 | Electrocardiogram Report ---
Test Reason : Blood Pressure : / mmHG Vent. Rate : 055 BPM Atrial Rate : 055 BPM P-R Int : 240 ms QRS Dur : 130 ms QT Int : 516 ms P-R-T Axes : 079 040 -23 degrees QTc Int : 493 ms Sinus bradycardia with 1st degree A-V block with frequent Premature ventricular complexes in a patter n of bigeminy Right bundle branch block Septal infarct (cited on or before 09-SEP-2023) T wave abnormality, consider lateral ischemia Abnormal ECG When compared with ECG of 09-SEP-2023 12:29, Premature ventricular complexes are now Present Vent. rate has decreased BY 33 BPM Confirmed by Yony Mcgrath ([id number]) on 09/28/2023 4:01:13 PM Referred By: Confirmed By:Yony Mcgrath
--- NOTE | 2023-09-28 16:02 | XRay Report ---
SINGLE VIEW CHEST CLINICAL HISTORY: Atypical chest pain FINDINGS: 2 AP, portable, upright chest radiographs are compared to study dated 09/15/2023 and correlat ed with chest CT dated 10/15/2014. The patient is status post midline sternotomy. The heart is enlarged . There is pulmonary vascular congestion with evidence of interstitial edema. There are small pleural effusions with dependent consolidation. No pneumothorax is seen. The skeletal structures are osteope denise. The bony thorax is grossly intact. IMPRESSION: 1. Cardiomegaly with evidence of congestive failure. 2. Small pleural effusions with dependent consolidation. ACT 112: Negative or not required by law. Electronically signed by: Vishal Ibanez M.D. 09/28/2023 4:00 PM
[2023-09-28 16:04] LABS: Basophils # (auto) 0.02 K/uL (0.00-0.20); Basophils % (auto) 0.3 %; Eosinophils % (auto) 1.5 %; Hematocrit (blood only) 36.8 % (42.0-52.0); Hemoglobin 11.9 g/dl (14.0-18.0); Immature Granulocytes # (auto) 0.02 K/uL (0.01-0.20); Immature Granulocytes % (auto) 0.3 %; Lymphocytes # (auto) 0.26 K/uL (1.20-3.40); Lymphocytes % (auto) 3.9 %; Mean Corpuscular Hemoglobin 31.4 pg (25.0-34.0); Mean Corpuscular Hgb Conc 32.3 g/dL (32.0-36.0); Mean Corpuscular Volume 97.1 fL (80.0-100.0); Monocytes % (auto) 9.1 %; Neutrophils % (auto) 84.9 %; Platelet Count 115 K/uL (130-400); RDW Coefficient of Variation 15.6 % (11.5-14.5); RDW Standard Deviation 56.1 fL (36.4-46.3); Red Blood Count 3.79 M/uL (4.70-6.10)
[2023-09-28 16:13] LABS: Creatinine Clr Calc Pharmacy 19.4 ml/min; Est GFR (African American) 15.4 ml/min; Est GFR (Non-African American) 13.3 ml/min; Potassium 5.6 mmol/L (3.5-5.1)
[2023-09-28 16:22] LABS: Troponin I High Sensitivity 250.7 pg/ml (0-20)
[2023-09-28 16:28] LABS: INR 1.1 (0.9-1.1); Partial Thromboplastin Ratio 0.9; Partial Thromboplastin Time 25 Seconds (21-31); Prothrombin Time 12.3 Seconds (9.0-12.0)
[2023-09-28] MEDS: CALCIUM GLUCONATE 1,000 MG/60 ML BAG IV STA ×2 (17:45→22:37)
[2023-09-28] MEDS: BUMETANIDE 2 MG in SYRINGE 0 ML IV ONE (17:59)
[2023-09-28] MEDS ORDERED: GLUCOSE 40% GEL 15 GM TUBE PO PRN (18:03)
[2023-09-28] MEDS ORDERED: GLUCAGON FOR INJ 1 MG VIAL SQ PRN (18:03)
[2023-09-28] MEDS ORDERED: GLUCOSE 10 TAB/TUBE PO PRN (18:03)
[2023-09-28] MEDS ORDERED: DEXTROSE 50% 50 ML SYRINGE IV PRN (18:03)
--- NOTE | 2023-09-28 18:08 | History & Physical Report ---
Date of Service September 28, 2023 Assessment & Plan (1) Acute kidney injury superimposed on chronic kidney disease: Plan: Assessment: 1. Acute decompensated systolic congestive heart failure/congestive heart failure with reduced ejection fraction. IV Bumex 2 mg IV twice daily to begin with. Will see how the patient diuresis. Will obtain an echocardiogram in the a.m. Entertain cardiology consult patient pending clinical course. 2. Elevated troponins question possible non-STEMI versus demand ischemia. If repeat troponin is increasing will consult cardiology. Patient does have a chronic troponinemia. 3. Acute kidney injury with CKD stage IV. I suspect this patient is developing some cardiorenal syndrome complicating his chronic kidney disease. Nephrology's been consulted. We do anticipate that the creatinine could rise with attempted diuresis. He may need dialysis just for volume control. Will monitor carefully and await nephrology consultation in the morning. 4. Hyperkalemia receiving Bumex we will recheck in the a.m. 5. Coronary artery disease status post four-vessel CABG remotely. 6. Diabetes mellitus type 2 insulin requiring. Sliding scales been ordered as well as his home insulin. 7. Obesity. 8. 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 9. Ventricular bigeminy on presentation probably due to electrolyte abnormalities and CHF. Monitor carefully. 10. DVT prophylaxis with heparin twice daily given patient's creatinine Plan: As described above. Please refer to orders for further planning. In addition the patient does not have adequate IV access. We did speak with the ER attending Dr. Thomas who plans on obtaining appropriate IV access. History of Present Illness Chief Complaint: Shortness of breath, weakness, Primary Care Provider: Leah Wolf DO This is a 73-year-old male with chronic kidney disease stage IV. He saw his video game developer yesterday and his Bumex was doubled. Patient presents today with increasing shortness of breath and weakness. In the emergency department he was found to be in acute on chronic renal failure with a creatinine of 4. I did do a stat bladder scan at the bedside with only positive for 120 cc of urine. Troponin was 250. EKG was nonacute. Course in the ER he had some calcium gluconate. There was a proceed bradycardia on transp ort at 30 bpm however the patient was found to be in bigeminy therefore not true bradycardia. Patient was given a gram of calcium gluconate initially. Potassium is mildly elevated at 5.6. Requested consultation with nephrology given the fact that they were just seen yesterday by nephrology. ER provider spoke with nephrology on-call who recommended IV Bumex. This has been ordered. Repeat troponins. If continues to elevate will consider heparinization and cardiology consult. The patient does have a chronic troponinemia this is somewhat higher than last admission but about the same as admission prior to the last admission. Echocardiogram last analyzed May 2023 with an EF of 45%. Will repeat an echo during this admission. Patient does not endorse any chest pain symptomatology whatsoever. Allergies Allergy/AdvReac Type Severity Reaction Status Date / Time ofloxacin [From Floxin] Allergy Intermediate itching Verified 09/28/23 16:52 Quinolones Allergy Intermediate Itchiness Verified 09/28/23 16:52 sulfamethoxazole Allergy Intermediate Rash Verified 09/28/23 16:52 trimethoprim Allergy Intermediate Rash Verified 09/28/23 16:52 Home Medications Medication Instructions Recorded Confirmed Type latanoprost 0.005 % eye drops 1 drp OPB HS 12/27/17 09/28/23 History (Xalatan) cholecalciferol (vitamin D3) 50 2,000 units PO QAM 11/10/19 09/28/23 History mcg (2,000 unit) capsule (Vitamin D3) brimonidine 0.2 % eye drops 1 drp OPB BID 12/07/20 09/28/23 History dorzolamide 2 % eye drops 1 drp OPB BID 12/07/20 09/28/23 History timolol maleate 0.5 % eye gel 1 drp OPB BID 12/07/20 09/28/23 History forming solution ascorbic acid (vitamin C) 500 mg 500 mg PO QAM 02/19/21 09/28/23 History capsule insulin regular human 100 unit/mL 1 sliding scale dose subcut 04/19/23 09/28/23 Rx injection solution (Humulin R USEASDIRECTD #10 mL Regular U-100 Insulin) cyanocobalamin (vitamin B-12) 500 1,000 mcg (2 x 500 mcg) PO QAM #0 05/04/23 09/28/23 Rx mcg tablet tabs ondansetron 4 mg disintegrating 4 mg PO Q8H PRN nausea and 08/23/23 09/28/23 Rx tablet vomiting #30 tabs docusate sodium 100 mg capsule 100 mg PO BID #0 caps 09/03/23 09/28/23 Rx polyethylene glycol 3350 17 gram 17 g PO BID #0 ea 09/03/23 09/28/23 Rx oral powder packet (Miralax) insulin NPH isoph U-100 human 100 20 unit (0.2 mL) subcut BID #10 mL 09/08/23 09/28/23 Rx unit/mL subcutaneous suspension (Novolin N NPH U-100 Insulin isophane) tramadol 50 mg tablet 50 mg PO DAILY #30 tabs 09/08/23 09/28/23 Rx aspirin 81 mg tablet,delayed 81 mg PO QAM #90 tabs 09/17/23 09/28/23 Rx release atorvastatin 80 mg tablet (Lipitor) 80 mg PO QAM #90 tabs 09/17/23 09/28/23 Rx calcitriol 0.5 mcg capsule 1 mcg (2 x 0.5 mcg) PO QAM #60 caps 09/17/23 09/28/23 Rx hydralazine 25 mg tablet 75 mg (3 x 25 mg) PO TID 90 days 09/17/23 09/28/23 Rx #810 tabs isosorbide mononitrate 30 mg 30 mg PO QAM 90 days #90 tabs 09/17/23 09/28/23 Rx tablet,extended release 24 hr metoprolol succinate 25 mg 25 mg PO QAM #90 tabs 09/17/23 09/28/23 Rx tablet,extended release 24 hr sertraline 50 mg tablet 50 mg PO DAILY #90 tabs 09/17/23 09/28/23 Rx trazodone 100 mg tablet 100 mg PO HS #30 tabs 09/17/23 09/28/23 Rx ropinirole 1 mg tablet See Rx Instructions .Route .COMPLEX 09/23/23 09/28/23 History bumetanide 2 mg tablet 2 mg PO BID #60 tabs 09/27/23 09/28/23 Rx Past Med/Surg History Problem List (Updated 09/27/23 @ 14:54 by Shakira Richardson MD) Acute kidney injury superimposed on chronic kidney disease Anemia of chronic disease HTN (hypertension), benign Ventricular tachycardia seen on awake overnight monitor Heart failure with mildly reduced ejection fraction (HFmrEF) Type 2 diabetes mellitus Acute on chronic combined systolic and diastolic CHF (congestive heart failure) SOB (shortness of breath) (Acute) CHF (congestive heart failure) (Acute) Cellulitis (Acute) Hypoxia (Acute) Right leg swelling Diabetes, type I Constipation Hypokalemia Generalized weakness Cellulitis of right lower extremity Nausea Abrasion of multiple sites of right lower extremity Hypoxia (Acute) Cardiomyopathy Chronic seborrheic dermatitis Status post below knee amputation of left lower extremity Generalized pruritus Grief History of colon polyps Impotence, organic Vitamin D deficiency Tubular adenoma of colon History of CVA (cerebrovascular accident) PT DENIES Glaucoma Peripheral positional vertigo Keloid scar of skin (Acute) Lower extremity edema (Chronic) Insomnia Nephrotic syndrome Diabetic nephropathy Diverticulosis hx Dyslipidemia Mild obstructive sleep apnea "Mild" > no device 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 DDD (degenerative disc disease), lumbar Medical History Chronic combined systolic and diastolic heart failure Depression Anemia of chronic disease Chronic kidney disease, stage 4 (severe) CAD, multiple vessel Diabetic peripheral 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 Restless leg syndrome Type 2 diabetes mellitus Ventricular bigeminy 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, with long-term current use of insulin (HFpEF) heart failure with preserved ejection fraction Acute kidney injury superimposed on chronic kidney disease Pressure ulcer of BKA stump, stage 3 Influenza A virus subtype H1 2009 pandemic strain present Slow to wake up after anesthesia Wound of lower extremity GERD (gastroesophageal reflux disease) History of TIA (transient ischemic attack) Surgical History S/P arteriovenous (AV) fistula creation History of esophagogastroduodenoscopy (EGD) History of colonoscopy S/P lumbar laminectomy S/P foot surgery S/P eye surgery S/P CABG x 4 (2011) History of lumbar discectomy History of tonsillectomy Family History Father , age 78 with prostate cancer Colorectal cancer Cardiovascular disease Diabetes Prostate cancer Grandmother (Maternal) Diabetes Mother , age 54 of throat cancer Throat cancer Denies family history of Ovarian cancer Myocardial infarction Breast cancer Social History Smoking Status: Never smoker Second Hand Exposure: No; Do You Dip or Chew Tobacco: No; Hx Alcohol Use: No Hx Substance Use: No Preferred Language: Syrian Communication Ability: Effective Visual Impairment: No Limitations Hearing Ability: Normal 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 Feels Safe at Home: Yes Childhood Exposure to Second-Hand Smoke: No Diet: regular caffeine: No during the past year weight has: remained stable Dental Care, Regularly: Yes Physical Activity Frequency: Other Physical Activity Frequency Comment: limited d/t disability Seatbelt Use: always Sunscreen Use: Yes Assistive Devices: Prosthesis, Scooter/Electric Scooter and Walker Review of Systems Review of Systems: A 10 point review of system was obtained and unless otherwise stated here or in history of present illness are negative and noncontributory to chief complaint. Physical Exam Physical Exam: In General: In general 73-year-old male chronically ill-appearing he is alert and oriented x 3. Denies any acute complaints. HEENT: Normocephalic atraumatic pupils are equal round and reactive to light bilaterally. No scleral icterus no conjunctival injection external auditory canals are patent septum is in the midline nose is without discharge oral mucosa is pink and moist without lesion. NECK: Supple no rigidity no lymphadenopathy no thyromegaly no carotid bruits no JVD no masses. HEART: Regular rate and rhythm I do not appreciate any ectopy or rub. No murmur. LUNGS: Bilateral cardiac rales and decreased breath sounds in the bases consistent with CHF and probable bilateral pleural effusions. ABDOMEN: Soft nontender, no rebound, no peritoneal signs, positive bowel sounds, no appreciable organomegaly. However, exam somewhat limited due to obe se body habitus. EXTREMITIES: Intact, BKA noted on the left. The patient does have 2+ pitting edema of the right lower extremity. NEUROLOGICAL: Cranial nerves II through XII are grossly intact with no focal deficit elicited upon examination. No tremor. Results & Data Results & Data Vital Signs (Past 12 Hours) Vital Signs Temp Pulse Resp BP Pulse Ox O2 Del Method O2 Flow Rate 09/28/23 16:42 99 Nasal Cannula 2 09/28/23 16:30 56 L 22 140/65 99 Nasal Cannula 2 09/28/23 15:31 36.7 C 56 L 18 138/64 96 Nasal Cannula 3 09/28/23 15:31 Nasal Cannula 3 09/28/23 15:26 57 L Code Status & VTE Plan Code Status CODE STATUS-full code personally discussed with patient. VTE Prophylaxis Plan VTE Prophylaxis will be ordered: Yes PG Care Time/CCT Total # of Minutes Spent Total Time Spent with Patient: Total time spent is greater than 50% in coordination of care (as documented) at patient's floor/unit and/or counseling patient: Coding Level of Care Code 35592 INT INP/OBS CARE MIN Diagnoses Acute kidney injury superimposed on chronic kidney disease N17.9; N18.9
--- NOTE | 2023-09-28 19:48 | Nephrology Consultation ---
Date of Consultation September 28, 2023 Assessment & Plan (1) Acute kidney injury superimposed on chronic kidney disease: Oliguric since admission. Hernandez requested and renal US ordered. Strict I/O's are being documented. [place] has advanced CKD approaching ESRD. We discussed potential indications for dialysis. He is aware that hemodialysis will be required if urine output and laboratory studies do not improve overnight. Hepatitis B profile will be updated with AM labs. RC AVF is mature for use. Medications are appropriately dosed for kidney dysfunction. (2) Diabetic nephropathy: CKD IV A3. Baseline creatinine 2.5-3.0 mg/dL. Nephrotic range proteinuria. Unable to tolerate DM/ARB due to hyperkalemia and ABDOULAYE. No SGLT2i due to advanced CKD and cost. (3) Acute on chronic combined systolic and diastolic CHF (congestive heart failure): Bumex 2 mg IV provided in the ER earlier this afternoon. An additional 2 mg IV Bumex has been ordered for later this evening. If no improvement is appreciated overnight. HD will be required for UF. (4) Hyperkalemia: Additional 1 gram calcium gluconate was provided now. Lokelma 10 gram provided. Repeat serum potassium requested. History of Present Illness Reason for Consultation: ABDOULAYE Requesting Physician: Hay Hooks PhD, DO Attending Physician: Hay Hooks PhD, DO History of Present Illness Mr. [place] Em is a 73 year-old male with advanced CKD attributed to DKD. Baseline creatinine ~2.8-3.0 mg/dL with nephrotic range proteinuria. CKD has been attributed to DKD. [place] in [place] [facility] [place] with Dr. Richardson. He was recently seen in the clinic yesterday. L RC AVF creation was completed in January [address] Howard. Past medical history notable for IDDM complicated by retinopathy, HTN, PVD s/p L BKA, ASCVD s/p CABG x4, nephrotic syndrome w/ chronic LLE swelling. Mr. Em was hospitalized in early August due to LE cellulitis. He was readmitted September 08-September 16 with volume overload. This was possibly related to medication non adherence. Mr. Em lives alone and does not drive due to poor vision. His discharge weight was 109 kg. He had notable fluid retention when he presented to the [facility] [place] yesterday. Bumex was increased to 2 mg BID. Unfortunately, Mr. Em developed progressive shortness of breath prompting evaluation in the ER today. CXR revealed interstitial pulmonary edema and bilateral pleural effusions. Telemetry/EKG demonstrating sinus bradycardia with frequent PVCs. Bigeminy noted. Significant episode of sinus bradycardia appreciated on arrival. IV Bumetanide was provided. Calcium gluconate also administered. The patient was admitted to the hospitalist service. Laboratory studies notable for elevated creatinine of 4.5 mg/dL and mild hyperkalemia. Minimal urine output has been documented since admission. [place] reports minimal urge to void. He was otherwise resting comfortably in bed on supplemental O2 at the time of my assessment. Allergies Allergy/AdvReac Type Severity Reaction Status Date / Time ofloxacin [From Floxin] Allergy Intermediate itching Verified 09/28/23 16:52 Quinolones Allergy Intermediate Itchiness Verified 09/28/23 16:52 sulfamethoxazole Allergy Intermediate Rash Verified 09/28/23 16:52 trimethoprim Allergy Intermediate Rash Verified 09/28/23 16:52 Home Medications Medication Instructions Recorded Confirmed Type latanoprost 0.005 % eye drops 1 drp OPB HS 12/27/17 09/28/23 History (Xalatan) cholecalciferol (vitamin D3) 50 2,000 units PO QAM 11/10/19 09/28/23 History mcg (2,000 unit) capsule (Vitamin D3) brimonidine 0.2 % eye drops 1 drp OPB BID 12/07/20 09/28/23 History dorzolamide 2 % eye drops 1 drp OPB BID 12/07/20 09/28/23 History timolol maleate 0.5 % eye gel 1 drp OPB BID 12/07/20 09/28/23 History forming solution ascorbic acid (vitamin C) 500 mg 500 mg PO QAM 02/19/21 09/28/23 History capsule insulin regular human 100 unit/mL 1 sliding scale dose subcut 04/19/23 09/28/23 Rx injection solution (Humulin R USEASDIRECTD #10 mL Regular U-100 Insulin) cyanocobalamin (vitamin B-12) 500 1,000 mcg (2 x 500 mcg) PO QAM #0 05/04/23 09/28/23 Rx mcg tablet tabs ondansetron 4 mg disintegrating 4 mg PO Q8H PRN nausea and 08/23/23 09/28/23 Rx tablet vomiting #30 tabs docusate sodium 100 mg capsule 100 mg PO BID #0 caps 09/03/23 09/28/23 Rx polyethylene glycol 3350 17 gram 17 g PO BID #0 ea 09/03/23 09/28/23 Rx oral powder packet (Miralax) insulin NPH isoph U-100 human 100 20 unit (0.2 mL) subcut BID #10 mL 09/08/23 09/28/23 Rx unit/mL subcutaneous suspension (Novolin N NPH U-100 Insulin isophane) tramadol 50 mg tablet 50 mg PO DAILY #30 tabs 09/08/23 09/28/23 Rx aspirin 81 mg tablet,delayed 81 mg PO QAM #90 tabs 09/17/23 09/28/23 Rx release atorvastatin 80 mg tablet (Lipitor) 80 mg PO QAM #90 tabs 09/17/23 09/28/23 Rx calcitriol 0.5 mcg capsule 1 mcg (2 x 0.5 mcg) PO QAM #60 caps 09/17/23 09/28/23 Rx hydralazine 25 mg tablet 75 mg (3 x 25 mg) PO TID 90 days 09/17/23 09/28/23 Rx #810 tabs isosorbide mononitrate 30 mg 30 mg PO QAM 90 days #90 tabs 09/17/23 09/28/23 Rx tablet,extended release 24 hr metoprolol succinate 25 mg 25 mg PO QAM #90 tabs 09/17/23 09/28/23 Rx tablet,extended release 24 hr sertraline 50 mg tablet 50 mg PO DAILY #90 tabs 09/17/23 09/28/23 Rx trazodone 100 mg tablet 100 mg PO HS #30 tabs 09/17/23 09/28/23 Rx ropinirole 1 mg tablet See Rx Instructions .Route .COMPLEX 09/23/23 09/28/23 History bumetanide 2 mg tablet 2 mg PO BID #60 tabs 09/27/23 09/28/23 Rx Patient History Medical History Chronic combined systolic and diastolic heart failure Depression Chronic kidney disease, stage 4 (severe) CAD, multiple vessel s/p CABG x4 (2011) Diabetic peripheral 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 Restless leg syndrome Type 2 diabetes mellitus Ventricular bigeminy 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, with long-term current use of insulin (HFpEF) heart failure with preserved ejection fraction Pressure ulcer of BKA stump, stage 3 RESOLVED Influenza A virus subtype H1 2009 pandemic strain present Slow to wake up after anesthesia Wound of lower extremity RLE wound "improved" per 01/27/21 wound clinic visit ([facility]); surgeon aware of patient's wound hx per 01/2021 office visit note; "only has a little scab there now, keeps it covered to protect it." GERD (gastroesophageal reflux disease) History of TIA (transient ischemic attack) ~2009>over his left eye, no residual symptoms Surgical History S/P arteriovenous (AV) fistula creation left>no currently having dialysis History of esophagogastroduodenoscopy (EGD) History of colonoscopy S/P lumbar laminectomy S/P foot surgery S/P eye surgery B/L x3 (for glaucoma) S/P CABG x 4 (2011) CABG x4 (2011), [facility]; f/u PCP History of lumbar discectomy History of tonsillectomy Family History Father , age 78 with prostate cancer Colorectal cancer Cardiovascular disease Diabetes Prostate cancer Grandmother (Maternal) Diabetes Mother , age 54 of throat cancer Throat cancer Denies family history of Ovarian cancer Myocardial infarction Breast cancer Social History Smoking Status: Never smoker Second Hand Exposure: No; Do You Dip or Chew Tobacco: No; Hx Alcohol Use: No Hx Substance Use: No Preferred Language: Omani Communication Ability: Effective Visual Impairment: No Limitations Hearing Ability: Normal 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 Feels Safe at Home: Yes Childhood Exposure to Second-Hand Smoke: No Diet: regular caffeine: No during the past year weight has: remained stable Dental Care, Regularly: Yes Physical Activity Frequency: Other Physical Activity Frequency Comment: limited d/t disability Seatbelt Use: always Sunscreen Use: Yes Assistive Devices: Prosthesis, Scooter/Electric Scooter and Walker Review of Systems Review of Systems: All systems reviewed & are unremarkable except as noted in HPI & below Physical Exam Constitutional: well developed; no acute distress Eyes: no scleral abnormality and no corneal abnormality ENMT: Mouth: no oral mucosal abnormality and oral mucous membranes not dry Neck: normal visual inspection and trachea midline Respiratory: normal respiratory effort Auscultation: lungs clear to auscultation bilaterally, + diminished lung sounds and + rales Cardiovascular: Rate/Rhythm: regular rate Heart Sounds: normal S1 and normal S2 Extremities: + edema (RLE) and + AV fistula (L RC AVF + bruit) Musculoskeletal: Extremities: no cyanosis and no clubbing L BKA Skin: normal turgor; no lesions Neurologic: Motor/Sensory: no tremor and no asterixis Psychiatric: Orientation: alert and oriented x 3 Results & Data Vital Signs (Past 12 Hours) Vital Signs Temp Pulse Pulse Resp BP BP Pulse Ox 09/28/23 19:41 97 09/28/23 19:14 64 09/28/23 19:03 98 09/28/23 19:03 53 L 18 133/65 98 09/28/23 16:42 99 09/28/23 16:30 56 L 22 140/65 99 09/28/23 15:31 36.7 C 56 L 18 138/64 96 09/28/23 15:31 09/28/23 15:26 57 L O2 Del Method O2 Flow Rate 09/28/23 19:41 Nasal Cannula 09/28/23 19:14 09/28/23 19:03 Nasal Cannula 3 09/28/23 19:03 Nasal Cannula 3 09/28/23 16:42 Nasal Cannula 2 09/28/23 16:30 Nasal Cannula 2 09/28/23 15:31 Nasal Cannula 3 09/28/23 15:31 Nasal Cannula 3 09/28/23 15:26 Laboratory Results Laboratory Results - last 24 hr 09/28/23 09/28/23 09/28/23 15:34 15:43 18:39 WBC 6.60 RBC 3.79 L Hgb 11.9 L POC Hgb 12.2 L Hct 36.8 L POC Hct 36 L MCV 97.1 MCH 31.4 MCHC 32.3 RDW Std Deviation 56.1 H RDW Coeff of Jose 15.6 H Plt Count 115 L MPV 14.0 H Immature Gran % (Auto) 0.3 Neut % (Auto) 84.9 Lymph % (Auto) 3.9 [place] % (Auto) 9.1 Eos % (Auto) 1.5 Baso % (Auto) 0.3 Neut # (Auto) 5.60 Lymph # (Auto) 0.26 L [place] # (Auto) 0.60 H Eos # (Auto) 0.10 Baso # (Auto) 0.02 Immature Gran # (Auto) 0.02 PT 12.3 H INR 1.1 APTT 25 PTT Ratio 0.9 POC Sodium 132 L Sodium 132 L POC Potassium 5.6 H Potassium 5.6 H POC Chloride 103 Chloride 100 Carbon Dioxide 23 POC Total CO2 25 Anion Gap 9 POC Anion Gap 11.0 L POC BUN 91 H BUN 90 H Creatinine 4.10 H POC Creatinine 4.5 H Est Cr Clr Drug Dosing 19.4 Est GFR ( Amer) 15.4 Est GFR (Non-Af Amer) 13.3 BUN/Creatinine Ratio 22.0 H Glucose 133 H POC Glucose (other) 128 H Calcium 9.0 POC Ioniz Calcium Luzma 1.17 Troponin I High Sens 250.7 H* 335.3 H* D B-Natriuretic Peptide 2360 H Lipase 57 PG Care Time/CCT Total # of Minutes Spent Total Time Spent with Patient: Total time spent is greater than 50% in coordination of care (as documented) at patient's floor/unit and/or counseling patient: Coding Level of Care Code 93674 IN/OBS CONSULT LVL 5,80M Diagnoses Acute kidney injury superimposed on chronic kidney disease N17.9; N18.9 Diabetic nephropathy E11.21 Acute on chronic combined systolic and diastolic CHF (congestive heart failure) I50.43 Hyperkalemia E87.5
--- NOTE | 2023-09-28 20:12 | Emergency Department Note ---
History of Present Illness General Chief Complaint: Cardiac Assessment Time Seen by Provider: 09/28/23 15:16 History of Present Illness Provider Complaint: shortness of breath and chest pain Consistency/Duration: + intermittent and + improved Maximum Pain Intensity: 6 Relieved By: + upright position Exacerbated By: + lying flat Known history of: congestive heart failure Associated symptoms: + chest pain, + cough, + sputum production, + orthopnea, + nausea/vomiting and + chest congestion; no fever, no wheezing or no lower extremity pain Treatment prior to arrival: none Home Medications Medication Instructions Recorded Confirmed Type latanoprost 0.005 % eye drops 1 drp OPB HS 12/27/17 09/28/23 History (Xalatan) cholecalciferol (vitamin D3) 50 2,000 units PO QAM 11/10/19 09/28/23 History mcg (2,000 unit) capsule (Vitamin D3) brimonidine 0.2 % eye drops 1 drp OPB BID 12/07/20 09/28/23 History dorzolamide 2 % eye drops 1 drp OPB BID 12/07/20 09/28/23 History timolol maleate 0.5 % eye gel 1 drp OPB BID 12/07/20 09/28/23 History forming solution ascorbic acid (vitamin C) 500 mg 500 mg PO QAM 02/19/21 09/28/23 History capsule insulin regular human 100 unit/mL 1 sliding scale dose subcut 04/19/23 09/28/23 Rx injection solution (Humulin R USEASDIRECTD #10 mL Regular U-100 Insulin) cyanocobalamin (vitamin B-12) 500 1,000 mcg (2 x 500 mcg) PO QAM #0 05/04/23 09/28/23 Rx mcg tablet tabs ondansetron 4 mg disintegrating 4 mg PO Q8H PRN nausea and 08/23/23 09/28/23 Rx tablet vomiting #30 tabs docusate sodium 100 mg capsule 100 mg PO BID #0 caps 09/03/23 09/28/23 Rx polyethylene glycol 3350 17 gram 17 g PO BID #0 ea 09/03/23 09/28/23 Rx oral powder packet (Miralax) insulin NPH isoph U-100 human 100 20 unit (0.2 mL) subcut BID #10 mL 09/08/23 09/28/23 Rx unit/mL subcutaneous suspension (Novolin N NPH U-100 Insulin isophane) tramadol 50 mg tablet 50 mg PO DAILY #30 tabs 09/08/23 09/28/23 Rx aspirin 81 mg tablet,delayed 81 mg PO QAM #90 tabs 09/17/23 09/28/23 Rx release atorvastatin 80 mg tablet (Lipitor) 80 mg PO QAM #90 tabs 09/17/23 09/28/23 Rx calcitriol 0.5 mcg capsule 1 mcg (2 x 0.5 mcg) PO QAM #60 caps 09/17/23 09/28/23 Rx hydralazine 25 mg tablet 75 mg (3 x 25 mg) PO TID 90 days 09/17/23 09/28/23 Rx #810 tabs isosorbide mononitrate 30 mg 30 mg PO QAM 90 days #90 tabs 09/17/23 09/28/23 Rx tablet,extended release 24 hr metoprolol succinate 25 mg 25 mg PO QAM #90 tabs 09/17/23 09/28/23 Rx tablet,extended release 24 hr sertraline 50 mg tablet 50 mg PO DAILY #90 tabs 09/17/23 09/28/23 Rx trazodone 100 mg tablet 100 mg PO HS #30 tabs 09/17/23 09/28/23 Rx ropinirole 1 mg tablet See Rx Instructions .Route .COMPLEX 09/23/23 09/28/23 History bumetanide 2 mg tablet 2 mg PO BID #60 tabs 09/27/23 09/28/23 Rx Allergies Allergy/AdvReac Type Severity Reaction Status Date / Time ofloxacin [From Floxin] Allergy Intermediate itching Verified 09/28/23 16:52 Quinolones Allergy Intermediate Itchiness Verified 09/28/23 16:52 sulfamethoxazole Allergy Intermediate Rash Verified 09/28/23 16:52 trimethoprim Allergy Intermediate Rash Verified 09/28/23 16:52 Past Med/Surg History Problem List (Updated 09/28/23 @ 20:36 by Joseph Thomas MD) Hyperkalemia (Acute) Acute kidney injury superimposed on chronic kidney disease (Acute) Anemia of chronic disease HTN (hypertension), benign Ventricular tachycardia seen on legal writing professor (Acute) Heart failure with mildly reduced ejection fraction (HFmrEF) (Acute) Type 2 diabetes mellitus Acute on chronic combined systolic and diastolic CHF (congestive heart failure) SOB (shortness of breath) (Acute) CHF (congestive heart failure) (Acute) Cellulitis (Acute) Hypoxia (Acute) Right leg swelling Diabetes, type I Constipation Hypokalemia Generalized weakness Cellulitis of right lower extremity Nausea Abrasion of multiple sites of right lower extremity Hypoxia (Acute) Cardiomyopathy Chronic seborrheic dermatitis Status post below knee amputation of left lower extremity Generalized pruritus Grief History of colon polyps Impotence, organic Vitamin D deficiency Tubular adenoma of colon History of CVA (cerebrovascular accident) PT DENIES Glaucoma Peripheral positional vertigo Keloid scar of skin (Acute) Lower extremity edema (Chronic) Insomnia Nephrotic syndrome Diabetic nephropathy Diverticulosis hx Dyslipidemia Mild obstructive sleep apnea "Mild" > no device 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 DDD (degenerative disc disease), lumbar Medical History Chronic combined systolic and diastolic heart failure Depression Chronic kidney disease, stage 4 (severe) CAD, multiple vessel s/p CABG x4 (2011) Diabetic peripheral 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 Restless leg syndrome Type 2 diabetes mellitus Ventricular bigeminy 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, with long-term current use of insulin (HFpEF) heart failure with preserved ejection fraction Pressure ulcer of BKA stump, stage 3 RESOLVED Influenza A virus subtype H1 2009 pandemic strain present Slow to wake up after anesthesia Wound of lower extremity RLE wound "improved" per 01/27/21 wound clinic visit ([facility]); surgeon aware of patient's wound hx per 01/2021 office visit note; "only has a little scab there now, keeps it covered to protect it." GERD (gastroesophageal reflux disease) History of TIA (transient ischemic attack) ~2009>over his left eye, no residual symptoms Surgical History S/P arteriovenous (AV) fistula creation left>no currently having dialysis History of esophagogastroduodenoscopy (EGD) History of colonoscopy S/P lumbar laminectomy S/P foot surgery S/P eye surgery B/L x3 (for glaucoma) S/P CABG x 4 (2011) CABG x4 (2011), [facility] Ra[facility]; f/u PCP History of lumbar discectomy History of tonsillectomy Family History Father , age 78 with prostate cancer Colorectal cancer Cardiovascular disease Diabetes Prostate cancer Grandmother (Maternal) Diabetes Mother , age 54 of throat cancer Throat cancer Denies family history of Ovarian cancer Myocardial infarction Breast cancer Social History Smoking Status: Never smoker Second Hand Exposure: No; Do You Dip or Chew Tobacco: No; Hx Alcohol Use: No Hx Substance Use: No Preferred Language: Persian Communication Ability: Effective Visual Impairment: No Limitations Hearing Ability: Normal [place] Required: No Beliefs That Will Affect Care: None marital status: / marital status details: lost August 2021 Current Living Situation: Alone current occupational status: retired current occupation: How many Children do You have: 2 other: Retired age 63-1/2. Feels Safe at Home: Yes Childhood Exposure to Second-Hand Smoke: No Diet: regular caffeine: No during the past year weight has: remained stable Dental Care, Regularly: Yes Physical Activity Frequency: Other Physical Activity Frequency Comment: limited d/t disability Seatbelt Use: always Sunscreen Use: Yes Assistive Devices: Prosthesis, Scooter/Electric Scooter and Walker Physical Exam 2 Vital Signs: Vital Signs - 24 hr 09/28/23 15:26 09/28/23 15:31 09/28/23 15:31 Temperature 36.7 C Temperature Source Temporal Artery Sc an Pulse Rate 57 L 56 L Pulse Rate [Apical ] Pulse Rate from Sp O2 Sensor Respiratory Rate 18 Respiratory Effort / Characteristics Non-Labored Sponta neous Non-Labored Sponta neous Respiratory Depth Normal Normal Blood Pressure 138/64 Blood Pressure [Ri ght Arm] Blood Pressure Subha n 88 Blood Pressure Subha n [Right Arm] Blood Pressure Pos ition Lying Pulse Oximetry 96 Oxygen Delivery Me thod Nasal Cannula Nasal Cannula Oxygen Flow Rate 3 3 Sepsis Recent Feve r Within 48 Hours No Sepsis New/Unexpla ined Change in Men sus[place] Status No Sepsis Action Take n by Nursing No Action Required 09/28/23 16:30 09/28/23 16:42 09/28/23 19:03 Temperature Temperature Source Pulse Rate 56 L Pulse Rate [Apical ] 53 L Pulse Rate from Sp O2 Sensor 56 L Respiratory Rate 22 18 Respiratory Effort / Characteristics Respiratory Depth Blood Pressure 140/65 Blood Pressure [Ri ght Arm] 133/65 Blood Pressure Subha n 90 Blood Pressure Subha n [Right Arm] 87 Blood Pressure Pos ition Pulse Oximetry 99 99 98 Oxygen Delivery Me thod Nasal Cannula Nasal Cannula Nasal Cannula Oxygen Flow Rate 2 2 3 Sepsis Recent Feve r Within 48 Hours Sepsis New/Unexpla ined Change in Men [place] Status Sepsis Action Take n by Nursing 09/28/23 19:03 09/28/23 19:14 09/28/23 19:41 Temperature Temperature Source Pulse Rate 64 Pulse Rate [Apical ] Pulse Rate from Sp O2 Sensor Respiratory Rate Respiratory Effort / Characteristics Respiratory Depth Blood Pressure Blood Pressure [Ri ght Arm] Blood Pressure Subha n Blood Pressure Subha n [Right Arm] Blood Pressure Pos ition Pulse Oximetry 98 97 Oxygen Delivery Me thod Nasal Cannula Nasal Cannula Oxygen Flow Rate 3 Sepsis Recent Feve r Within 48 Hours Sepsis New/Unexpla ined Change in Men susannah Status Sepsis Action Take n by Nursing Physical Exam: Physical Exam GENERAL: Ill-appearing HENT: Exam performed. - Head: Normocephalic and atraumatic. EYES: Conjunctivae and EOM are normal. Pupils are equal, round, and reactive to light. Right eye exhibits no discharge. Left eye exhibits no discharge. No scleral icterus. NECK: Normal range of motion. Neck supple. No JVD present. CV: Normal rate, regular rhythm, normal heart sounds and intact distal pulses. Palpable radial pulses bue. PULM/CHEST: Inspiratory rales bilaterally. ABD: The abdomen is soft. MUSC/SKEL: Left-sided lower extremity amputation. Lower extremity 3+ pitting edema. Left upper extremity AV fistula with palpable thrill. NEURO: Motor and sensation grossly intact. Procedures EJ/Peripheral Line Arm R: Skin Cleansed in Sterile Fashion: Yes Size (gauge): 18 IV Secured and Dressing Applied: Yes Patient Tolerated Procedure: well Additional Comments: Ultrasound-guided Course Course 1516: The patient was evaluated in room D3A. A complete history and physical exam was performed Cardiac monitoring: An order was placed for continuous cardiac monitoring. The monitor shows a rate of 60 with sinus with bigeminy rhythm interpreted by me Patient found to be 89% on room air supplemental oxygen via nasal cannula was applied which improved the patient's oxygen saturation 1632: Vital signs stable on supplemental oxygen via nasal cannula. Patient keeps alternating between sinus rhythm with right bundle branch block and a bigeminy pattern. Labs show a potassium of 5.6. White blood cell count 6.6. Hemoglobin 1.9. Coagulation studies within normal limits. Potassium 5.6. Creatinine up to 4.1 and BUN up to 90. proBNP 2360 high-sensitivity troponin 250.7 given the patient's bigeminy pattern and his mildly elevated potassium patient be treated with calcium gluconate. Discussed case with [facility] hospitalist Dr. Hooks who asked that we speak with nephrology to determine the best course of action for diuresis for the patient given his fluid overloaded and ABDOULAYE superimposed on CKD. 1714: Vital signs stable supplemental oxygen via nasal cannula. Discussed case with Dr. Matt on-call for [facility] nephrology. He states that the patient can be given Bumex IV as patient was restarted on Bumex yesterday and received Bumex during his prior hospitalization. 1921: Vital signs stable patient. She had a nonsustained 8 beat run of V. tach where he was asymptomatic. Patient was sleeping. Spoke with cardiology Dr. Krause who recommends continue current medical treatment. No amiodarone or antiarrhythmics at this time as patient is not symptomatic and the V. tach is nonsustained. Administered Medications Discontinued Medications Calcium Gluconate () 1,000 mg in 60 mls @ 240 mls/hr IV NOW STA Stop: 09/28/23 16:46 Last Infusion: 09/28/23 18:49 Dose: Infused Documented By: Admin: 09/28/23 17:45 Dose: 240 mls/hr Documented By: DEEPTHI Bumetanide 2 mg/ Syringe 8 mls @ 4 mls/min IV ONE ONE Stop: 09/28/23 17:15 Last Admin: 09/28/23 17:59 Dose: 4 mls/min Documented By: DEEPTHI Medical Decision Making Medical Records Attestation: I reviewed the patient's medical records. External medical records reviewed. Patient was recently admitted from September 09, 2023 to September 17, 2023 for a principle diagnosis of acute on chronic systolic and diastolic congestive heart failure. Patient was also hypoxic at that time. Patient has a history of CKD it was thought that the patient's creatinine increased due to recent Bumex diuresis. Patient had small runs of ventricular tachycardia and frequent bigeminy. There is a note from nephrology from yesterday Dr. Del Rosario which states that the patient has stage IV CKD and nephrotic syndrome secondary to diabetic nephropathy the patient's baseline creatinine is 2.5-2.8. The patient has had repeated episodes of ABDOULAYE in the setting of high-dose diuretic for nephrotic syndrome. Patient is on losartan 100 mg. Patient was to resume Bumex 2 mg twice twice daily for next 1 to 2 days and if there is no improvement in the lower extremity edema to increase it to 4 mg twice a day. Laboratory Data Attestation: I reviewed the patient's lab results. 09/28/23 15:34 09/28/23 15:34 Lab Results 09/28/23 09/28/23 09/28/23 Range/Units 15:34 15:43 18:39 WBC 6.60 (4.8-10.8) K/ul RBC 3.79 L (4.70-6.10) M/uL Hgb 11.9 L (14.0-18.0) g/dl POC Hgb 12.2 L (14.0-18.0) g/dl Hct 36.8 L (42.0-52.0) % POC Hct 36 L (42-52) % MCV 97.1 (80.0-100.0) fL MCH 31.4 (25.0-34.0) pg MCHC 32.3 (32.0-36.0) g/dL RDW Std Deviation 56.1 H (36.4-46.3) fL RDW Coeff of Jose 15.6 H (11.5-14.5) % Plt Count 115 L (130-400) K/uL MPV 14.0 H (9.4-12.4) fL Immature Gran % (Auto) 0.3 % Neut % (Auto) 84.9 % Lymph % (Auto) 3.9 % Bonner % (Auto) 9.1 % Eos % (Auto) 1.5 % Baso % (Auto) 0.3 % Neut # (Auto) 5.60 (1.40-6.50) K/uL Lymph # (Auto) 0.26 L (1.20-3.40) K/uL Bonner # (Auto) 0.60 H (0.11-0.59) K/uL Eos # (Auto) 0.10 (0.00-0.50) K/uL Baso # (Auto) 0.02 (0.00-0.20) K/uL Immature Gran # (Auto) 0.02 (0.01-0.20) K/uL PT 12.3 H (9.0-12.0) Seconds INR 1.1 (0.9-1.1) APTT 25 (21-31) Seconds PTT Ratio 0.9 POC Sodium 132 L (135-144) mmol/L Sodium 132 L (136-145) mmol/L POC Potassium 5.6 H (3.3-5.0) mmol/L Potassium 5.6 H (3.5-5.1) mmol/L POC Chloride 103 (101-112) mmol/L Chloride 100 (98-107) mmol/L Carbon Dioxide 23 (21-32) mmol/L POC Total CO2 25 (24-31) mmol/L Anion Gap 9 (3-11) POC Anion Gap 11.0 L (16-25) mmol/L POC BUN 91 H (7-18) mg/dl BUN 90 H (6-23) mg/dl Creatinine 4.10 H (0.6-1.4) mg/dl POC Creatinine 4.5 H (0.6-1.3) mg/dl Est Cr Clr Drug Dosing 19.4 ml/min Est GFR ( Amer) 15.4 ml/min Est GFR (Non-Af Amer) 13.3 ml/min BUN/Creatinine Ratio 22.0 H (10-20) Glucose 133 H (70-99(Fasting)) mg/dl POC Glucose (other) 128 H (70-99) mg/dl Calcium 9.0 (8.6-10.3) mg/dl POC Ioniz Calcium Luzma 1.17 (1.12-1.32) mmol/l Troponin I High Sens 250.7 H* 335.3 H* D (0-20) pg/ml B-Natriuretic Peptide 2360 H (0-100) pg/ml Lipase 57 (11-82) U/L Imaging Data Attestation: I personally reviewed and interpreted this imaging study as follows: My Impression: Chest x-ray: Cardiomegaly with cephalization Radiologist's Impression: Chest X-Ray 09/28/23 15:17 SINGLE VIEW CHEST CLINICAL HISTORY: Atypical chest pain FINDINGS: 2 AP, portable, upright chest radiographs are compared to study dated 09/15/2023 and correlated with chest CT dated 10/15/2014. The patient is status post midline sternotomy. The heart is enlarged. There is pulmonary vascular congestion with evidence of interstitial edema. There are small pleural effusions with dependent consolidation. No pneumothorax is seen. The skeletal structures are osteopenic. The bony thorax is grossly intact. IMPRESSION: 1. Cardiomegaly with evidence of congestive failure. 2. Small pleural effusions with dependent consolidation. ACT 112: Negative or not required by law. Electronically signed by: Vishal Ibanez M.D. 09/28/2023 4:00 PM ECG Data Attestation: I personally reviewed and interpreted this ECG as follows: Interpretation: EKG #1 at 1521: Sinus rhythm with rate of 55. MA 240 QRS [address] elevation or ST depression. Patient is seen a bigeminy pattern. EKG #2 at 1527: Sinus rhythm with rate of 60. MA 236 QRS [address] elevation or ST depression. Patient is in a bigeminy pattern. EKG #3 at 1625: Sinus rhythm with a rate of 56. MA 232 QRS [address] elevation or ST depression. Patient is bigeminy pattern. EKG #4 at 1627: Sinus rhythm with rate of 57. MA 232 QRS [address] elevation or ST depression. EKG #5 at 1921: Sinus rhythm with rate of 59. MA 206 QRS [address] elevation or ST depression. Patient is in a bigeminy pattern [facility] Narrative 1516: The patient was evaluated in room D3A. A complete history and physical exam was performed Cardiac monitoring: An order was placed for continuous cardiac monitoring. The monitor shows a rate of 60 with sinus with bigeminy rhythm interpreted by me Patient found to be 89% on room air supplemental oxygen via nasal cannula was applied which improved the patient's oxygen saturation 1632: Vital signs stable on supplemental oxygen via nasal cannula. Patient keeps alternating between sinus rhythm with right bundle branch block and a bigeminy pattern. Labs show a potassium of 5.6. White blood cell count 6.6. Hemoglobin 1.9. Coagulation studies within normal limits. Potassium 5.6. Creatinine up to 4.1 and BUN up to 90. proBNP 2360 high-sensitivity troponin 250.7 given the patient's bigeminy pattern and his mildly elevated potassium patient be treated with calcium gluconate. Discussed case with [facility] hospitalist Dr. Hooks who asked that we speak with nephrology to determine the best course of action for diuresis for the patient given his fluid overloaded and ABDOULAYE superimposed on CKD. 171: Vital signs stable supplemental oxygen via nasal cannula. Discussed case with Dr. Matt on-call for [facility] nephrology. He states that the patient can be given Bumex IV as patient was restarted on Bumex yesterday and received Bumex during his prior hospitalization. 1921: Vital signs stable patient. She had a nonsustained 8 beat run of V. tach where he was asymptomatic. Patient was sleeping. Spoke with cardiology Dr. Krause who recommends continue current medical treatment. No amiodarone or antiarrhythmics at this time as patient is not symptomatic and the V. tach is nonsustained. Impression & Plan Acute kidney injury superimposed on chronic kidney disease, Hyperkalemia, Ventricular tachycardia seen on legal writing professor, Heart failure with mildly reduced ejection fraction (HFmrEF), Hypoxia Critical Care Time Critical Care Time: Yes Total Critical Care Time: 57 I have personally spent greater than 57 minutes of critical care time in the direct management of this patient. This includes bedside care, interpretation of diagnostic studies, and testing, discussion with consultants, patient, and family members, and other required patient management activities. This 57 minutes is in excess of all separately billable procedures. Discharge Plan Visit Data Chief Complaint: Cardiac Assessment ED Provider: Joseph Thomas Discharge Problem: Acute kidney injury superimposed on chronic kidney disease, Hyperkalemia, Ventricular tachycardia seen on legal writing professor, Heart failure with mildly reduced ejection fraction (HFmrEF), Hypoxia Patient Disposition: Admitted As Inpatient
[2023-09-28] MEDS: INSULIN ASPART PER UNIT CHARGE SC SCH (20:51)
[2023-09-28] MEDS: INSULIN HUMAN NPH SQ SCH (20:52)
[2023-09-28] MEDS: DOCUSATE SODIUM 100 MG CAP PO SCH (21:01)
[2023-09-28] MEDS: hydrALAZINE HCL 25 MG TAB PO SCH (21:02)
[2023-09-28] MEDS: LATANOPROST 0.005% OP SOLN 2.5 ML BTL OPB SCH (21:03)
[2023-09-28] MEDS: POLYETHYLENE (MIRALAX) 17 GM PACK PO SCH (21:04)
[2023-09-28] MEDS: rOPINIRole HCL 1 MG TABLET PO SCH (21:04)
[2023-09-28] MEDS: traZODone HCL 100 MG TAB PO SCH (21:05)
[2023-09-28] MEDS: TIMOLOL GFS 0.5% OPH SOLN 74 DROPS/5 ML BTL OPB SCH (21:06)
[2023-09-28] MEDS: HEPARIN SOD 5,000 UNIT/0.5 ML VIAL SQ SCH (21:07)
[2023-09-28 21:38] LABS: Troponin I High Sensitivity 360.6 pg/ml (0-20)
[2023-09-28 22:38] LABS: Potassium 5.1 mmol/L (3.5-5.1)
[2023-09-28] MEDS: SODIUM ZIRCONIUM CYCLOSILICATE 10 GM PACKET PO STA (22:38)
[2023-09-29 06:17] LABS: Basophils # (auto) 0.03 K/uL (0.00-0.20); Basophils % (auto) 0.4 %; Eosinophils # (auto) 0.19 K/uL (0.00-0.50); Eosinophils % (auto) 2.2 %; Hematocrit (blood only) 36.9 % (42.0-52.0); Hemoglobin 11.8 g/dl (14.0-18.0); Immature Granulocytes # (auto) 0.02 K/uL (0.01-0.20); Immature Granulocytes % (auto) 0.2 %; Lymphocytes # (auto) 0.23 K/uL (1.20-3.40); Lymphocytes % (auto) 2.7 %; Mean Corpuscular Hemoglobin 31.2 pg (25.0-34.0); Mean Corpuscular Volume 97.6 fL (80.0-100.0); Mean Platelet Volume 13.9 fL (9.4-12.4); Monocytes # (auto) 0.87 K/uL (0.11-0.59); Monocytes % (auto) 10.2 %; Neutrophils # (auto) 7.19 K/uL (1.40-6.50); Neutrophils % (auto) 84.3 %; Platelet Count 120 K/uL (130-400); RDW Coefficient of Variation 15.3 % (11.5-14.5); RDW Standard Deviation 55.2 fL (36.4-46.3); Red Blood Count 3.78 M/uL (4.70-6.10); White Blood Count 8.53 K/ul (4.8-10.8)
[2023-09-29 06:26] LABS: Albumin Globulin Ratio 1.2 (0.9-2); Albumin Level 3.5 gm/dl (3.4-5.0); BUN Creatinine Ratio 24.2 (10-20); Bilirubin,Total 0.6 mg/dl (0.2-1.0); Calcium 9.2 mg/dl (8.6-10.3); Creatinine Clr Calc Pharmacy 18.5 ml/min; Est GFR (African American) 14.6 ml/min; Est GFR (Non-African American) 12.6 ml/min; Globulin 2.9 gm/dl (2.5-4.0); Magnesium 2.5 mg/dl (1.7-2.4); Potassium 4.8 mmol/L (3.5-5.1); Total Protein 6.4 gm/dl (6.0-8.3)
[2023-09-29 06:41] LABS: Thyroid Stimulating Hormone 1.547 uIu/ml (0.300-4.500)
--- NOTE | 2023-09-29 06:55 | Ultrasound Report ---
ULTRASOUND KIDNEYS AND BLADDER CLINICAL HISTORY: Acute renal insufficiency. COMPARISON STUDY: Abdominal CT dated 12/21/2022 TECHNIQUE: Real-time, grayscale, and color flow sonography of the kidneys and bladder is performed. I mages are reviewed in the transverse and longitudinal planes. FINDINGS: Kidneys: The kidneys demonstrate cortical atrophy. Echotexture is normal. The right kidney measures 1 1.6 x 5.5 x 4.6 cm and the left kidney measures 12.9 x 5.1 x 4.2 cm. There is no hydronephrosis. No shadowing renal calculi are identified. There is no sonographic evidence of contour deforming renal m ass lesion. No perinephric fluid is identified. Bladder: The bladder is decompressed around a Hernandez catheter and not well assessed. Upper abdomen: There is trace perihepatic and perisplenic ascites. IMPRESSION: 1. The kidneys demonstrate cortical atrophy and are without hydronephrosis. 2. The bladder is decompressed around a Hernandez catheter and not assessed. 3. Trace upper abdominal ascites. ACT 112: Negative or not required by law. Electronically signed by: Vishal Ibanez M.D. 09/29/2023 6:54 AM
[2023-09-29 07:42] LABS: Estimated Average Glucose 186 mg/dl; Hemoglobin A1C 8.1 % (4.5-5.6)
--- NOTE | 2023-09-29 08:01 | Hospitalist Progress Note ---
Date of Service September 29, 2023 Assessment & Plan (1) Acute kidney injury superimposed on chronic kidney disease: Plan: concern for cardiorenal syndrome, oliguric, concern for need for Renal replacement therapy Acute kidney injury with CKD stage IV. Nephrology's been consulted. Hyperkalemia receiving Bumex, no acute peaked t waves but does have bradcardia (2) Heart failure with mildly reduced ejection fraction (HFmrEF): Plan: Acute decompensated systolic congestive heart failure/congestive heart failure with reduced ejection fraction. IV Bumex 2 mg IV twice daily pending echocardiogram in the a.m. Entertain cardiology consult patient pending clinical course. Ventricular bigeminy on presentation probably due to electrolyte abnormalities and CHF. It of code purple due to likely vagal event on top of the ventricular bigeminy does have pacer pads in place remains on telemetry I personally phoned cardiology discussed the case no interventions at this time if does recur consider administration of atropine Elevated troponins question possible non-STEMI versus demand ischemia. T wave changes seem similar to 09/02, making acute ischemia less likely If repeat troponin is increasing will consult cardiology. Patient does have a chronic elevation of troponin liklely influenced by renal failure and now exerbation of heart failure consider elevated troponin demand ischemia Coronary artery disease status post four-vessel CABG remotely. (3) Type 2 diabetes mellitus: Plan: Diabetes mellitus type 2 insulin requiring. Sliding scales been ordered as well as his basal home insulin. 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 He had a code purple called where he had rapid response due to vagal response or became bradycardic and symptomatic which resolved. Hernandez catheter was removed from his bladder in case the balloon was causing irritation. He attempted to go to dialysis but we were unable to get good flow from his fistula Physical Exam Physical Exam: Patient is lethargic but arousable Card exam is regular with a systolic murmur Lungs are diminished at the bases with crackles above Abdomen is protuberant dull he has a left BKA right lower extremity is with trace edema Results & Data Results & Data Vital Signs (Past 12 Hours) Vital Signs Temp Pulse Pulse Resp BP Pulse Ox O2 Del Method 09/29/23 07:47 97.3 F L 56 L 18 145/64 H 98 Nasal Cannula 09/29/23 03:18 97.7 F 45 L 18 99/60 L 96 Nasal Cannula 09/29/23 00:30 97.5 F L 54 L 16 144/65 H 98 Nasal Cannula 09/29/23 00:25 Nasal Cannula 09/28/23 23:38 54 L 18 132/61 96 Nasal Cannula 09/28/23 23:20 54 L 09/28/23 21:00 57 L 22 145/71 H 100 Nasal Cannula 09/28/23 20:13 54 L 135/72 O2 Flow Rate 09/29/23 07:47 09/29/23 03:18 4 09/29/23 00:30 4 09/29/23 00:25 3 09/28/23 23:38 3 09/28/23 23:20 09/28/23 21:00 3 09/28/23 20:13 Laboratory Results Reviewed CBC reviewed chemistry Respond urgently to code purple no treatment was administered PG Care Time/CCT Total # of Minutes Spent Total Time Spent with Patient: Total time spent is greater than 50% in coordination of care (as documented) at patient's floor/unit and/or counseling patient: Coding Level of Care Code 55641 SUB INP/OBS CARE 3/50MIN Diagnoses Acute kidney injury superimposed on chronic kidney disease N17.9; N18.9 Heart failure with mildly reduced ejection fraction (HFmrEF) I50.22 Type 2 diabetes mellitus E11.9
[2023-09-29] MEDS: METOPROLOL SUCC 25MG EXT REL TAB PO SCH (08:56)
[2023-09-29] MEDS: rOPINIRole HCL 1 MG TABLET PO SCH (08:56)
[2023-09-29] MEDS: BUMETANIDE 2 MG in SYRINGE 0 ML IV SCH (08:57)
[2023-09-29] MEDS: CALCITRIOL 0.25 MCG CAPSULE PO SCH (08:57)
[2023-09-29] MEDS: SERTRALINE HCL 50 MG TABLET PO SCH (08:57)
[2023-09-29] MEDS: CHOLECALCIFEROL 25 MCG (1000 UNITS) TAB PO SCH (08:57)
[2023-09-29] MEDS: ISOSORBIDE MONO EXTENDED REL 30 MG TABCR PO SCH (08:57)
[2023-09-29] MEDS: CYANOCOBALAMIN (B-12) 500 MCG TABLET PO SCH (08:57)
[2023-09-29] MEDS: ASPIRIN 81 MG ECTAB PO SCH (08:57)
[2023-09-29] MEDS: ATORVASTATIN 40 MG TAB PO SCH (08:57)
[2023-09-29] MEDS: traMADol HCL 50 MG TABLET PO SCH (09:09)
[2023-09-29 10:07] LABS: HepB Surface Ag with confirm Negative (Negative)
--- NOTE | 2023-09-29 10:07 | Nephrology Progress Note ---
Date of Service September 29, 2023 Assessment & Plan (1) Acute kidney injury superimposed on chronic kidney disease: Plan: Unfortunately not responsive to IV diuretics overnight. No obstruction on US. Dayton has advanced chronic kidney disease complicated by CRS, significant fluid retention, and electrolyte disorders. He is agreeable to starting HD for detention management. Dayton will dialyze as ESRD due to DKD at [facility]. He will require transportation. Family may be able to help with this. We will access the [facility] for his first treatment. I have entered orders into the EHR and discussed with the HD RN. Hepatitis B labs pending. Medications are appropriately dosed for IHD. (2) Diabetic nephropathy: Plan: Advanced to ESRD. (3) Acute on chronic combined systolic and diastolic CHF (congestive heart failure): Plan: Continue Bumex to encourage urine output. I discussed the plan of care with cardiology this AM. RAASi may be revisited once patient is established on HD. (4) Hyperkalemia: Plan: s/p Lokelma overnight. Improved. Maintain low potassium diet. Admission and Anticipated Discharge Date Admission Date: September 28, 2023 Subjective Dayton was seen and evaluated in his hospital bed this morning. I discussed the plan of care with cardiology. Urine output has been poor. He does not feel well. Dayton reports notable orthopnea. Appetite is poor. He describes difficulty catching his breath with even minimal activity. He describes progressive weakness and debility over the past several months and he is resolved that his kidney dysfunction is significantly affecting his quality of life. We discussed what starting dialysis would look like. He plans to dialyze at [facility] in [place] under the care of Dr. Richardson. Dayton will require transportation to dialysis. He has family that may be to provide transport. Dayton plans to move to [place] to be closer to family in the near future. Review of Systems Review of Systems: All systems reviewed & are unremarkable except as noted in HPI & below Physical Exam Constitutional: well developed; no acute distress Eyes: no scleral abnormality and no corneal abnormality ENMT: Mouth: no oral mucosal abnormality and oral mucous membranes not dry Neck: normal visual inspection and trachea midline Respiratory: normal respiratory effort Auscultation: lungs clear to auscultation bilaterally, + diminished lung sounds and + rales Cardiovascular: Rate/Rhythm: + bradycardic Heart Sounds: normal S1 and normal S2 Extremities: + edema (RLE) and + AV fistula (L RC AVF + bruit) Musculoskeletal: Extremities: no cyanosis and no clubbing Skin: normal turgor; no lesions Neurologic: Motor/Sensory: no tremor and no asterixis Psychiatric: Orientation: alert and oriented x 3 Results & Data Vital Signs (Past 12 Hours) Vital Signs Temp Pulse Pulse Resp BP Pulse Ox O2 Del Method 09/29/23 07:47 36.3 C L 56 L 18 145/64 H 98 Nasal Cannula 09/29/23 03:18 36.5 C 45 L 18 99/60 L 96 Nasal Cannula 09/29/23 00:30 36.4 C L 54 L 16 144/65 H 98 Nasal Cannula 09/29/23 00:25 Nasal Cannula 09/28/23 23:38 54 L 18 132/61 96 Nasal Cannula 09/28/23 23:20 54 L O2 Flow Rate 09/29/23 07:47 09/29/23 03:18 4 09/29/23 00:30 4 09/29/23 00:25 3 09/28/23 23:38 3 09/28/23 23:20 Laboratory Results Laboratory Results - last 24 hr 09/28/23 09/28/23 09/28/23 15:34 15:43 18:39 WBC 6.60 RBC 3.79 L Hgb 11.9 L POC Hgb 12.2 L Hct 36.8 L POC Hct 36 L MCV 97.1 MCH 31.4 MCHC 32.3 RDW Std Deviation 56.1 H RDW Coeff of Jose 15.6 H Plt Count 115 L MPV 14.0 H Immature Gran % (Auto) 0.3 Neut % (Auto) 84.9 Lymph % (Auto) 3.9 [place] % (Auto) 9.1 Eos % (Auto) 1.5 Baso % (Auto) 0.3 Neut # (Auto) 5.60 Lymph # (Auto) 0.26 L [place] # (Auto) 0.60 H Eos # (Auto) 0.10 Baso # (Auto) 0.02 Immature Gran # (Auto) 0.02 PT 12.3 H INR 1.1 APTT 25 PTT Ratio 0.9 POC Sodium 132 L Sodium 132 L POC Potassium 5.6 H Potassium 5.6 H POC Chloride 103 Chloride 100 Carbon Dioxide 23 POC Total CO2 25 Anion Gap 9 POC Anion Gap 11.0 L POC BUN 91 H BUN 90 H Creatinine 4.10 H POC Creatinine 4.5 H Est Cr Clr Drug Dosing 19.4 Est GFR ( Amer) 15.4 Est GFR (Non-Af Amer) 13.3 BUN/Creatinine Ratio 22.0 H Glucose 133 H POC Glucose POC Glucose (other) 128 H Estimat Average Glucose Hemoglobin A1c Calcium 9.0 POC Ioniz Calcium Luzma 1.17 Magnesium Total Bilirubin AST ALT Alkaline Phosphatase Troponin I High Sens 250.7 H* 335.3 H* D B-Natriuretic Peptide 2360 H Total Protein Albumin Globulin Albumin/Globulin Ratio Lipase 57 TSH Hep Bs Antigen Hep Bs Antibody Hep Bs Antibody, Quant Hep B Core IgM Ab 09/28/23 09/28/23 09/29/23 20:43 20:46 05:42 WBC 8.53 RBC 3.78 L Hgb 11.8 L POC Hgb Hct 36.9 L POC Hct MCV 97.6 MCH 31.2 MCHC 32.0 RDW Std Deviation 55.2 H RDW Coeff of Jose 15.3 H Plt Count 120 L MPV 13.9 H Immature Gran % (Auto) 0.2 Neut % (Auto) 84.3 Lymph % (Auto) 2.7 [place] % (Auto) 10.2 Eos % (Auto) 2.2 Baso % (Auto) 0.4 Neut # (Auto) 7.19 H Lymph # (Auto) 0.23 L [place] # (Auto) 0.87 H Eos # (Auto) 0.19 Baso # (Auto) 0.03 Immature Gran # (Auto) 0.02 PT INR APTT PTT Ratio POC Sodium Sodium 134 L POC Potassium Potassium 5.1 4.8 POC Chloride Chloride 99 Carbon Dioxide 23 POC Total CO2 Anion Gap 12 H POC Anion Gap POC BUN BUN 104 H Creatinine 4.29 H POC Creatinine Est Cr Clr Drug Dosing 18.5 Est GFR ( Amer) 14.6 Est GFR (Non-Af Amer) 12.6 BUN/Creatinine Ratio 24.2 H Glucose 189 H POC Glucose 123 H POC Glucose (other) Estimat Average Glucose 186 Hemoglobin A1c 8.1 H Calcium 9.2 POC Ioniz Calcium Luzma Magnesium 2.5 H Total Bilirubin 0.6 AST 18 ALT 25 Alkaline Phosphatase 72 Troponin I High Sens 360.6 H* B-Natriuretic Peptide Total Protein 6.4 Albumin 3.5 Globulin 2.9 Albumin/Globulin Ratio 1.2 Lipase TSH 1.547 Hep Bs Antigen Cancelled Hep Bs Antibody Hep Bs Antibody, Quant Hep B Core IgM Ab 09/29/23 09/29/23 09/29/23 05:42 05:42 05:42 WBC RBC Hgb POC Hgb Hct POC Hct MCV MCH MCHC RDW Std Deviation RDW Coeff of Jose Plt Count MPV Immature Gran % (Auto) Neut % (Auto) Lymph % (Auto) [place] % (Auto) Eos % (Auto) Baso % (Auto) Neut # (Auto) Lymph # (Auto) [place] # (Auto) Eos # (Auto) Baso # (Auto) Immature Gran # (Auto) PT INR APTT PTT Ratio POC Sodium Sodium POC Potassium Potassium POC Chloride Chloride Carbon Dioxide POC Total CO2 Anion Gap POC Anion Gap POC BUN BUN Creatinine POC Creatinine Est Cr Clr Drug Dosing Est GFR ( Amer) Est GFR (Non-Af Amer) BUN/Creatinine Ratio Glucose POC Glucose POC Glucose (other) Estimat Average Glucose Hemoglobin A1c Calcium POC Ioniz Calcium Luzma Magnesium Total Bilirubin AST ALT Alkaline Phosphatase Troponin I High Sens B-Natriuretic Peptide Total Protein Albumin Globulin Albumin/Globulin Ratio Lipase TSH Hep Bs Antigen Negative Hep Bs Antibody Cancelled Cancelled Pending Hep Bs Antibody, Quant Cancelled Hep B Core IgM Ab 09/29/23 09/29/23 09/29/23 05:42 05:42 08:16 WBC RBC Hgb POC Hgb Hct POC Hct MCV MCH MCHC RDW Std Deviation RDW Coeff of Jose Plt Count MPV Immature Gran % (Auto) Neut % (Auto) Lymph % (Auto) [place] % (Auto) Eos % (Auto) Baso % (Auto) Neut # (Auto) Lymph # (Auto) [place] # (Auto) Eos # (Auto) Baso # (Auto) Immature Gran # (Auto) PT INR APTT PTT Ratio POC Sodium Sodium POC Potassium Potassium POC Chloride Chloride Carbon Dioxide POC Total CO2 Anion Gap POC Anion Gap POC BUN BUN Creatinine POC Creatinine Est Cr Clr Drug Dosing Est GFR ( Amer) Est GFR (Non-Af Amer) BUN/Creatinine Ratio Glucose POC Glucose 180 H POC Glucose (other) Estimat Average Glucose Hemoglobin A1c Calcium POC Ioniz Calcium Luzma Magnesium Total Bilirubin AST ALT Alkaline Phosphatase Troponin I High Sens B-Natriuretic Peptide Total Protein Albumin Globulin Albumin/Globulin Ratio Lipase TSH Hep Bs Antigen Hep Bs Antibody Hep Bs Antibody, Quant Cancelled Pending Hep B Core IgM Ab Pending PG Care Time/CCT Total # of Minutes Spent Total Time Spent with Patient: Total time spent is greater than 50% in coordination of care (as documented) at patient's floor/unit and/or counseling patient: Coding Level of Care Code 50340 SUB INP/OBS CARE 3/50MIN Diagnoses Acute kidney injury superimposed on chronic kidney disease N17.9; N18.9 Diabetic nephropathy E11.21 Acute on chronic combined systolic and diastolic CHF (congestive heart failure) I50.43 Hyperkalemia E87.5
--- NOTE | 2023-09-29 10:12 | Cardiology Consultation ---
Date of Consultation September 29, 2023 Assessment & Plan (1) Acute on chronic combined systolic and diastolic CHF (congestive heart failure): (2) Elevated troponin I level: (3) CAD, multiple vessel: (4) Cardiomyopathy: (5) HTN (hypertension), benign: (6) Acute kidney injury superimposed on chronic kidney disease: Plan Mr. Em is a 73-year-old male with a history of Multivessel CAD s/p CABG x 4 Vessels 2011 (ZURITA-to-LAD, SVG-to-OM and Diagonal, SVG to R-PDA), Cardiomyop athy (LVEF 45% to 50% May 2023), Moderate Mitral Regurgitation, Diabetes Mellitus, Hypertension, Dyslipidemia, CKD, Anemia of Chronic Disease, PAD s/p Left BKA, JEREMIE, GERD, Diverticulosis Coli, Glaucoma, Prior CVA, and Nephrotic Syndrome who was admitted to [facility] on 09/28/23 with Acute on Chronic Combined Systolic and Diastolic CHF and ABDOULAYE (Creatinine was 09/23/23 2.60 mg/dL, on 09/28/23 4.10 mg/dL, and today is 4.29 mg/dL). Patient was hospitalized in early August 2023 with a LE cellulitis. He was readmitted 09/09/23 through 09/17/23 with volume overload and this was possibly related to medication noncompliance. His discharge weight from that hospitalization was 109 kg. He had notable fluid retention when he presented to the [facility] nephrology clinic on 09/27/23. Bumex was increased to 2 mg BID. Unfortunately, the patient developed generalized weakness, progressive shortness of breath, and ongoing weight gain which prompted evaluation in the ER on 09/28/23. His current body weight is 117.4 kg. CXR revealed interstitial pulmonary edema and bilateral pleural effusions. Telemetry/EKG demonstrating sinus bradycardia with frequent PVC's/ventricular bigeminy. He also had an episode of sinus bradycardia on arrival. IV Bumex was provided and the patient also received calcium gluconate. The patient was admitted to the hospitalist service. Laboratory studies notable for elevated creatinine and mild hyperkalemia. Minimal urine output has been documented since admission. Additionally, his initial high sensitivity troponin I was elevated 250.7 pg/mL, with subsequent values of 335.3 pg/mL and 360.6 pg/mL. This does NOT appear to be an acute coronary syndrome. His elevated troponin I is a pattern that he has exhibited in the past that when he comes in with decompensated heart failure his troponin levels are elevated. Additionally his acute on chronic kidney disease could certainly contribute to his elevated troponin levels. His BNP is elevated at 2360 pg/mL -- consistent with CHF Patient is currently being seen in room 460-1, he is lying semi recumbent in his bed and is able to speak in full sentences. He continues to experience dyspnea with minimal exertion, and he can not lie down flat because he becomes short breath. Patient has not experienced any angina pectoris nor does he have any symptoms attributable to his frequent PVCs. Patient has been compliant with his medications and a sodium restricted diet. I agree with Nephrology that hemodialysis will be the best option for managing his volume status as he has a history of diuretic resistant hypervolemia and his creatinine is up to 4.29 mg/dL. Recommend the followin. Strict 2 g low-sodium diet. 2. Initiate dialysis as per Nephrology. 3. Continue Toprol XL 25 mg daily. 4. Continue Imdur ER 30 mg daily. 5. Continue Hydralazine 75 mg t.i.d.. 6. Continue IV Bumex 2 mg b.i.d.. 7. Continue Atorvastatin 80 mg daily. 8. Continue Aspirin 81 mg daily. 9. Consider the addition of Spironolactone +/- SGLT-2 i. 10. He is not a candidate for an ACEI, ARB, or Entresto due to his degree of renal failure. Continue to monitor I&Os, daily body weights. Thank you for asking us to see this patient in consultation. We will continue to follow him along while hospitalized. Patient is also established with our Heart Failure Clinic. History of Present Illness Reason for Consultation: -- Acute on Chronic Combined Systolic and Diastolic CHF. -- Elevated Troponin I. Attending Physician: Edinson Encarnacion MD History of Present Illness Mr. Em is a 73-year-old male with a history of Multivessel CAD s/p CABG x 4 Vessels 2011 (ZURITA-to-LAD, SVG-to-OM and Diagonal, SVG to R-PDA), Cardiomyopathy (LVEF 45% to 50% May 2023), Moderate Mitral Regurgitation, Diabetes Mellitus, Hypertension, Dyslipidemia, CKD, Anemia of Chronic Disease, PAD s/p Left BKA, JEREMIE, GERD, Diverticulosis Coli, Glaucoma, Prior CVA, and Nephrotic Syndrome who was admitted to [facility] on 09/28/23 with Acute on Chronic Combined Systolic and Diastolic CHF and ABDOULAYE (Creatinine was 09/23/23 2.60 mg/dL, on 09/28/23 4.10 mg/dL, and today is 4.29 mg/dL). Patient was hospitalized in early August 2023 with a LE cellulitis. He was readmitted 09/09/23 through 09/17/23 with volume overload and this was possibly related to medication noncompliance. His discharge weight from that hospitalization was 109 kg. He had notable fluid retention when he presented to the [facility] nephrology clinic on 09/27/23. Bumex was increased to 2 mg BID. Unfortunately, the patient developed generalized weakness, progressive shortness of breath, and ongoing weight gain which prompted evaluation in the ER on 09/28/23. His current body weight is 117.4 kg. CXR revealed interstitial pulmonary edema and bilateral pleural effusions. Telemetry/EKG demonstrating sinus bradycardia with frequent PVC's/ventricular bigeminy. He also had an episode of sinus bradycardia on arrival. IV Bumex was provided and the patient also received calcium gluconate. The patient was admitted to the hospitalist service. Laboratory studies notable for elevated creatinine and mild hyperkalemia. Minimal urine output has been documented since admission. Additionally, his initial high sensitivity troponin I was elevated 250.7 pg/mL, with subsequent values of 335.3 pg/mL and 360.6 pg/mL. His BNP is elevated at 2360 pg/mL. Patient is currently being seen in room 460-1, he is lying semi recumbent in his bed and is able to speak in full sentences. He continues to experience dyspnea with minimal exertion, and he can not lie down flat because he becomes short breath. He denies any chest pain, heaviness, tightness, pressure, discomfort, or angina pectoris. He denies any neck, jaw, back, or arm pain. Patient denies any palpitations, syncope, or near-syncope. Patient has been compliant with his medications and a sodium restricted diet. [facility] 06/04/23: 1. Raw data analysis demonstrates obesity with increased liver uptake and mild diaphragmatic attenuation. Study is adequate for interpretation. 2. Gated myocardial perfusion imaging demonstrated a dilated left ventricle, global hypokinesis, and a calculated EF of 52% which seems to modestly overestimate the actual EF. 3. There was a small in size, mild intensity, predominantly fixed apical myocardial perfusion defect with mild reversibility. These findings are consistent with small infarct and mild get-infarct ischemia. Artifact cannot be excluded. 4. Study is moderately abnormal. Minimal ischemia risk. No prior studies to compare. ECHOCARDIOGRAM 05/29/23: -- Mildly reduced LV systolic function. -- LVEF 45%-50%. -- Moderate LVH. -- Grade II LV diastolic dysfunction. -- Mildly dilated left atrium. -- Normal RVSP. HISTORICAL BACKGROUND: He was hospitalized in November 2019 for hypervolemia secondary to CKD with diuretic resistance. He responded well to IV diuretics and was discharged on Bumex 1 mg BID. He was then readmitted from 12/14/19 through 12/17/19 for hypervolemia secondary to CKD/nephrotic syndrome presenting with similar symptoms. He was discharged on Bumex 2 mg BID. Discharge weight was 236 lb. Due to his high risk of readmission he was referred to the heart failure program for more intensive management of his volume overload, which is likely secondary to nephrotic syndrome NOT heart failure. It was felt that he would benefit from closer monitoring and more intense education regarding fluid management. He was hospitalized from 04/29/23 through 05/04/23 for HFmrEF (LVEF 45% to 50%) and CKD. He presented with shortness of breath and fatigue. He was recovering from influenza. He ran out of Metolazone which may have triggered his exacerbation. He was treated with Bumex IV BID with good response. Discharged on Bumex 4 mg BID with Metolazone 5 mg 2-3 x/week. He was readmitted from 06/14/23 through 06/16/23 for CHF and hypoxic respiratory failure. He presented with SOB, orthopnea, and chest discomfort. He was treated with IV diuretics. He was discharged on Bumex 4 mg BID and Metolazone [facility]. Family History: -- Father had OR in his 50s. -- Mother in her 50s with malignancy. Social History: -- His of 47 years in 2020, he is still grieving as would be expected. -- He has 2 sons. 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 -- He has not smoked. -- No significant alcohol or drug abuse. Allergies Allergy/AdvReac Type Severity Reaction Status Date / Time ofloxacin [From Floxin] Allergy Intermediate itching Verified 09/28/23 16:52 Quinolones Allergy Intermediate Itchiness Verified 09/28/23 16:52 sulfamethoxazole Allergy Intermediate Rash Verified 09/28/23 16:52 trimethoprim Allergy Intermediate Rash Verified 09/28/23 16:52 Home Medications Medication Instructions Recorded Confirmed Type latanoprost 0.005 % eye drops 1 drp OPB HS 12/27/17 09/28/23 History (Xalatan) cholecalciferol (vitamin D3) 50 2,000 units PO QAM 11/10/19 09/28/23 History mcg (2,000 unit) capsule (Vitamin D3) brimonidine 0.2 % eye drops 1 drp OPB BID 12/07/20 09/28/23 History dorzolamide 2 % eye drops 1 drp OPB BID 12/07/20 09/28/23 History timolol maleate 0.5 % eye gel 1 drp OPB BID 12/07/20 09/28/23 History forming solution ascorbic acid (vitamin C) 500 mg 500 mg PO QAM 02/19/21 09/28/23 History capsule insulin regular human 100 unit/mL 1 sliding scale dose subcut 04/19/23 09/28/23 Rx injection solution (Humulin R USEASDIRECTD #10 mL Regular U-100 Insulin) cyanocobalamin (vitamin B-12) 500 1,000 mcg (2 x 500 mcg) PO QAM #0 05/04/23 09/28/23 Rx mcg tablet tabs ondansetron 4 mg disintegrating 4 mg PO Q8H PRN nausea and 08/23/23 09/28/23 Rx tablet vomiting #30 tabs docusate sodium 100 mg capsule 100 mg PO BID #0 caps 09/03/23 09/28/23 Rx polyethylene glycol 3350 17 gram 17 g PO BID #0 ea 09/03/23 09/28/23 Rx oral powder packet (Miralax) insulin NPH isoph U-100 human 100 20 unit (0.2 mL) subcut BID #10 mL 09/08/23 09/28/23 Rx unit/mL subcutaneous suspension (Novolin N NPH U-100 Insulin isophane) tramadol 50 mg tablet 50 mg PO DAILY #30 tabs 09/08/23 09/28/23 Rx aspirin 81 mg tablet,delayed 81 mg PO QAM #90 tabs 09/17/23 09/28/23 Rx release atorvastatin 80 mg tablet (Lipitor) 80 mg PO QAM #90 tabs 09/17/23 09/28/23 Rx calcitriol 0.5 mcg capsule 1 mcg (2 x 0.5 mcg) PO QAM #60 caps 09/17/23 09/28/23 Rx hydralazine 25 mg tablet 75 mg (3 x 25 mg) PO TID 90 days 09/17/23 09/28/23 Rx #810 tabs isosorbide mononitrate 30 mg 30 mg PO QAM 90 days #90 tabs 09/17/23 09/28/23 Rx tablet,extended release 24 hr metoprolol succinate 25 mg 25 mg PO QAM #90 tabs 09/17/23 09/28/23 Rx tablet,extended release 24 hr sertraline 50 mg tablet 50 mg PO DAILY #90 tabs 09/17/23 09/28/23 Rx trazodone 100 mg tablet 100 mg PO HS #30 tabs 09/17/23 09/28/23 Rx ropinirole 1 mg tablet See Rx Instructions .Route .COMPLEX 09/23/23 09/28/23 History bumetanide 2 mg tablet 2 mg PO BID #60 tabs 09/27/23 09/28/23 Rx Patient History Medical History Chronic combined systolic and diastolic heart failure Depression Chronic kidney disease, stage 4 (severe) CAD, multiple vessel s/p CABG x4 (2011) Diabetic peripheral 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 Restless leg syndrome Type 2 diabetes mellitus Ventricular bigeminy 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, with long-term current use of insulin (HFpEF) heart failure with preserved ejection fraction Pressure ulcer of BKA stump, stage 3 RESOLVED Influenza A virus subtype H1 2009 pandemic strain present Slow to wake up after anesthesia Wound of lower extremity RLE wound "improved" per 01/27/21 wound clinic visit ([facility]); surgeon aware of patient's wound hx per 01/2021 office visit note; "only has a little scab there now, keeps it covered to protect it." GERD (gastroesophageal reflux disease) History of TIA (transient ischemic attack) ~2009>over his left eye, no residual symptoms Surgical History S/P arteriovenous (AV) fistula creation left>no currently having dialysis History of esophagogastroduodenoscopy (EGD) History of colonoscopy S/P lumbar laminectomy S/P foot surgery S/P eye surgery B/L x3 (for glaucoma) S/P CABG x 4 (2011) CABG x4 (2011), [facility]; f/u PCP History of lumbar discectomy History of tonsillectomy Family History Father , age 78 with prostate cancer Colorectal cancer Cardiovascular disease Diabetes Prostate cancer Grandmother (Maternal) Diabetes Mother , age 54 of throat cancer Throat cancer Denies family history of Ovarian cancer Myocardial infarction Breast cancer Social History Smoking Status: Never smoker Second Hand Exposure: No; Do You Dip or Chew Tobacco: No; Hx Alcohol Use: No Hx Substance Use: No Preferred Language: Polish Communication Ability: Effective Visual Impairment: No Limitations Hearing Ability: Normal 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 Feels Safe at Home: No Is there a partner from a previous relationship who is making you feel unsafe now?: No Childhood Exposure to Second-Hand Smoke: No Diet: regular caffeine: No during the past year weight has: remained stable Dental Care, Regularly: Yes Physical Activity Frequency: Other Physical Activity Frequency Comment: limited d/t disability Seatbelt Use: always Sunscreen Use: Yes Assistive Devices: Glasses, Prosthesis, Walker and Wheelchair Review of Systems Review of Systems: -- As per HPI. Physical Exam Physical Exam: GENERAL: Chronically ill-appearing male in no acute distress. HEENT: Head is atraumatic, normocephalic. EOM's intact. Facies symmetric. No perioral cyanosis. NECK: No JVD. JVP is elevated. Carotid upstrokes are + 2 bilaterally without bruits. CHEST/LUNGS: Absent breath sounds in the bases scattered crackles in the lower lung sterling. CVS: S1 and S2 are regular without murmurs, gallops, or rubs. PMI is nonpalpable. No lifts, heaves, or thrills. No abdominal aortic or renal bruits. ABDOMINAL EXAM: Bowel sounds are present. No masses, organomegaly, or tenderness. EXTREMITIES: No clubbing or cyanosis. L BKA is present, prosthesis in place. RLE with +2 pretibial pitting edema to the proximal tibia. Intact radial pulses bilaterally. NEUROLOGIC EXAM: Patient is awake, alert, and oriented. Pleasant and cooperative. Answers questions appropriately. Speech is clear. 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 EKG 09/28/23: -- Sinus bradycardia at 59 bpm with vent ricular bigeminy, right bundle branch block. -- T-wave abnormality, consider lateral ischemia. Results & Data Vital Signs (Past 12 Hours) Vital Signs Temp Pulse Pulse Resp BP Pulse Ox O2 Del Method 09/29/23 07:47 36.3 C L 56 L 18 145/64 H 98 Nasal Cannula 09/29/23 03:18 36.5 C 45 L 18 99/60 L 96 Nasal Cannula 09/29/23 00:30 36.4 C L 54 L 16 144/65 H 98 Nasal Cannula 09/29/23 00:25 Nasal Cannula 09/28/23 23:38 54 L 18 132/61 96 Nasal Cannula 09/28/23 23:20 54 L O2 Flow Rate 09/29/23 07:47 09/29/23 03:18 4 09/29/23 00:30 4 09/29/23 00:25 3 09/28/23 23:38 3 09/28/23 23:20 Laboratory Results Laboratory Results - last 24 hr 09/28/23 09/28/23 09/28/23 15:34 15:43 18:39 WBC 6.60 RBC 3.79 L Hgb 11.9 L POC Hgb 12.2 L Hct 36.8 L POC Hct 36 L MCV 97.1 MCH 31.4 MCHC 32.3 RDW Std Deviation 56.1 H RDW Coeff of Jose 15.6 H Plt Count 115 L MPV 14.0 H Immature Gran % (Auto) 0.3 Neut % (Auto) 84.9 Lymph % (Auto) 3.9 Steele % (Auto) 9.1 Eos % (Auto) 1.5 Baso % (Auto) 0.3 Neut # (Auto) 5.60 Lymph # (Auto) 0.26 L Steele # (Auto) 0.60 H Eos # (Auto) 0.10 Baso # (Auto) 0.02 Immature Gran # (Auto) 0.02 PT 12.3 H INR 1.1 APTT 25 PTT Ratio 0.9 POC Sodium 132 L Sodium 132 L POC Potassium 5.6 H Potassium 5.6 H POC Chloride 103 Chloride 100 Carbon Dioxide 23 POC Total CO2 25 Anion Gap 9 POC Anion Gap 11.0 L POC BUN 91 H BUN 90 H Creatinine 4.10 H POC Creatinine 4.5 H Est Cr Clr Drug Dosing 19.4 Est GFR ( Amer) 15.4 Est GFR (Non-Af Amer) 13.3 BUN/Creatinine Ratio 22.0 H Glucose 133 H POC Glucose POC Glucose (other) 128 H Estimat Average Glucose Hemoglobin A1c Calcium 9.0 POC Ioniz Calcium Luzma 1.17 Magnesium Total Bilirubin AST ALT Alkaline Phosphatase Troponin I High Sens 250.7 H* 335.3 H* D B-Natriuretic Peptide 2360 H Total Protein Albumin Globulin Albumin/Globulin Ratio Lipase 57 TSH Hep Bs Antigen Hep Bs Antibody Hep Bs Antibody, Quant Hep B Core IgM Ab 09/28/23 09/28/23 09/29/23 20:43 20:46 05:42 WBC 8.53 RBC 3.78 L Hgb 11.8 L POC Hgb Hct 36.9 L POC Hct MCV 97.6 MCH 31.2 MCHC 32.0 RDW Std Deviation 55.2 H RDW Coeff of Jose 15.3 H Plt Count 120 L MPV 13.9 H Immature Gran % (Auto) 0.2 Neut % (Auto) 84.3 Lymph % (Auto) 2.7 Steele % (Auto) 10.2 Eos % (Auto) 2.2 Baso % (Auto) 0.4 Neut # (Auto) 7.19 H Lymph # (Auto) 0.23 L Steele # (Auto) 0.87 H Eos # (Auto) 0.19 Baso # (Auto) 0.03 Immature Gran # (Auto) 0.02 PT INR APTT PTT Ratio POC Sodium Sodium 134 L POC Potassium Potassium 5.1 4.8 POC Chloride Chloride 99 Carbon Dioxide 23 POC Total CO2 Anion Gap 12 H POC Anion Gap POC BUN BUN 104 H Creatinine 4.29 H POC Creatinine Est Cr Clr Drug Dosing 18.5 Est GFR ( Amer) 14.6 Est GFR (Non-Af Amer) 12.6 BUN/Creatinine Ratio 24.2 H Glucose 189 H POC Glucose 123 H POC Glucose (other) Estimat Average Glucose 186 Hemoglobin A1c 8.1 H Calcium 9.2 POC Ioniz Calcium Luzma Magnesium 2.5 H Total Bilirubin 0.6 AST 18 ALT 25 Alkaline Phosphatase 72 Troponin I High Sens 360.6 H* B-Natriuretic Peptide Total Protein 6.4 Albumin 3.5 Globulin 2.9 Albumin/Globulin Ratio 1.2 Lipase TSH 1.547 Hep Bs Antigen Cancelled Hep Bs Antibody Hep Bs Antibody, Quant Hep B Core IgM Ab 09/29/23 09/29/23 09/29/23 05:42 05:42 05:42 WBC RBC Hgb POC Hgb Hct POC Hct MCV MCH MCHC RDW Std Deviation RDW Coeff of Jose Plt Count MPV Immature Gran % (Auto) Neut % (Auto) Lymph % (Auto) Steele % (Auto) Eos % (Auto) Baso % (Auto) Neut # (Auto) Lymph # (Auto) Steele # (Auto) Eos # (Auto) Baso # (Auto) Immature Gran # (Auto) PT INR APTT PTT Ratio POC Sodium Sodium POC Potassium Potassium POC Chloride Chloride Carbon Dioxide POC Total CO2 Anion Gap POC Anion Gap POC BUN BUN Creatinine POC Creatinine Est Cr Clr Drug Dosing Est GFR ( Amer) Est GFR (Non-Af Amer) BUN/Creatinine Ratio Glucose POC Glucose POC Glucose (other) Estimat Average Glucose Hemoglobin A1c Calcium POC Ioniz Calcium Luzma Magnesium Total Bilirubin AST ALT Alkaline Phosphatase Troponin I High Sens B-Natriuretic Peptide Total Protein Albumin Globulin Albumin/Globulin Ratio Lipase TSH Hep Bs Antigen Negative Hep Bs Antibody Cancelled Cancelled Non-Immune Hep Bs Antibody, Quant Cancelled Hep B Core IgM Ab 09/29/23 09/29/23 09/29/23 05:42 05:42 08:16 WBC RBC Hgb POC Hgb Hct POC Hct MCV MCH MCHC RDW Std Deviation RDW Coeff of Jose Plt Count MPV Immature Gran % (Auto) Neut % (Auto) Lymph % (Auto) Steele % (Auto) Eos % (Auto) Baso % (Auto) Neut # (Auto) Lymph # (Auto) Steele # (Auto) Eos # (Auto) Baso # (Auto) Immature Gran # (Auto) PT INR APTT PTT Ratio POC Sodium Sodium POC Potassium Potassium POC Chloride Chloride Carbon Dioxide POC Total CO2 Anion Gap POC Anion Gap POC BUN BUN Creatinine POC Creatinine Est Cr Clr Drug Dosing Est GFR ( Amer) Est GFR (Non-Af Amer) BUN/Creatinine Ratio Glucose POC Glucose 180 H POC Glucose (other) Estimat Average Glucose Hemoglobin A1c Calcium POC Ioniz Calcium Luzma Magnesium Total Bilirubin AST ALT Alkaline Phosphatase Troponin I High Sens B-Natriuretic Peptide Total Protein Albumin Globulin Albumin/Globulin Ratio Lipase TSH Hep Bs Antigen Hep Bs Antibody Hep Bs Antibody, Quant Cancelled < 3.00 Hep B Core IgM Ab Pending Diagnostic Findings CXR 09/28/23: 1. Cardiomegaly with evidence of congestive failure. 2. Small pleural effusions with dependent consolidation. Medications Administered Medication List Aspirin (Aspirin 81 Mg Ectab) [facility] Stop: 10/29/23 08:59 Last Admin: 09/29/23 08:57 Dose: 81 mg Documented By: MAIDA Atorvastatin Calcium (Atorvastatin 40 Mg Tab) 80 [facility] Stop: 10/29/23 08:59 Last Admin: 09/29/23 08:57 Dose: 80 mg Documented By: MAIDA Calcitriol (Calcitriol 0.25 Mcg Capsule) 1 mcg [facility] Stop: 10/29/23 08:59 Last Admin: 09/29/23 08:57 Dose: 1 mcg Documented By: MAIDA Cyanocobalamin (Cyanocobalamin (B-12) 500 Mcg Tablet) 1,000 mcg [facility] Stop: 10/29/23 08:59 Last Admin: 09/29/23 08:57 Dose: 1,000 mcg Documented By: MAIDA Docusate Sodium (Docusate Sodium 100 Mg Cap) 100 mg PO BID [facility] Stop: 10/28/23 20:59 Last Admin: 09/29/23 09:09 Dose: Not Given Documented By: Admin: 09/28/23 21:01 Dose: 100 mg Documented By: KIMBERLY Heparin Sodium (Porcine) (Heparin Sod 5,000 Unit/0.5 Ml Vial) 5,000 units SQ Q12 [facility] Stop: 10/28/23 20:59 Last Admin: 09/28/23 21:07 Dose: 5,000 units Documented By: KIMBERLY Hydralazine HCl (Hydralazine Hcl 25 Mg Tab) 75 mg PO TID [facility] Stop: 10/28/23 20:59 Last Admin: 09/29/23 09:57 Dose: 75 mg Documented By: Admin: 09/28/23 21:02 Dose: 75 mg Documented By: KIMBERLY Bumetanide 2 mg/ Syringe 8 mls @ 4 mls/min IV BID@0900,1700 [facility] Stop: 10/29/23 08:59 Last Admin: 09/29/23 08:57 Dose: 4 mls/min Documented By: MAIDA Insulin Aspart (Insulin Aspart Per Unit Charge) 0 units SC ACHS [facility] Stop: 10/28/23 20:59 Last Admin: 09/29/23 08:59 Dose: Not Given Documented By: Admin: 09/28/23 20:51 Dose: Not Given Documented By: KIMBERLY Insulin Human NPH (Insulin Human Nph) 20 units SQ BID [facility] Stop: 10/28/23 20:59 Last Admin: 09/29/23 09:30 Dose: Not Given Documented By: Admin: 09/28/23 20:52 Dose: Not Given Documented By: KIMBERLY Isosorbide Mononitrate (Isosorbide Steele Extended Rel 30 Mg Tabcr) 30 mg PO QAM [facility] Stop: 10/29/23 08:59 Last Admin: 09/29/23 08:57 Dose: 30 mg Documented By: MAIDA Latanoprost (Latanoprost 0.005% Op Soln 2.5 Ml Btl) 1 drops OPB HS [facility] Stop: 10/28/23 20:59 Last Admin: 09/28/23 21:03 Dose: 1 drops Documented By: KIMBERLY Metoprolol Succinate (Metoprolol Succ 25mg Ext Rel Tab) 25 mg PO QAM [facility] Stop: 10/29/23 08:59 Last Admin: 09/29/23 09:06 Dose: Not Given Documented By: MAIDA Polyethylene Glycol (Polyethylene (Miralax) 17 Gm Pack) 17 gm PO BID [facility] Stop: 10/28/23 20:59 Last Admin: 06/19/24 09:08 Dose: 17 gm Documented By: Admin: 09/28/23 21:04 Dose: 17 gm Documented By: KIMBERLY Ropinirole HCl (Ropinirole Hcl 1 Mg Tablet) 1 mg PO 0800,1200 AR Stop: 10/29/23 07:59 Last Admin: 09/29/23 08:56 Dose: 1 mg Documented By: MAIDA Ropinirole HCl (Ropinirole Hcl 1 Mg Tablet) 3 mg PO HS AR Stop: 10/28/23 20:59 Last Admin: 09/28/23 21:04 Dose: 3 mg Documented By: KIMBERLY Sertraline HCl (Sertraline Hcl 50 Mg Tablet) 50 mg PO DAILY AR Stop: 10/29/23 08:59 Last Admin: 09/29/23 08:57 Dose: 50 mg Documented By: MAIDA Timolol Maleate (Timolol Gfs 0.5% Oph Soln 74 Drops/5 Ml Btl) 1 drops OPB BID AR Stop: 10/28/23 20:59 Last Admin: 09/29/23 09:57 Dose: 1 drops Documented By: Admin: 09/28/23 21:06 Dose: 1 drops Documented By: KIMBERLY Tramadol HCl (Tramadol Hcl 50 Mg Tablet) 50 mg PO DAILY AR Stop: 10/29/23 08:59 Last Admin: 09/29/23 09:09 Dose: 50 mg Documented By: MAIDA Trazodone HCl (Trazodone Hcl 100 Mg Tab) 100 mg PO HS AR Stop: 10/28/23 20:59 Last Admin: 09/28/23 21:05 Dose: 100 mg Documented By: KIMBERLY Vitamin D (Cholecalciferol 25 Mcg (1000 Units) Tab) 50 mcg PO QAM AR Stop: 10/29/23 08:59 Last Admin: 09/29/23 08:57 Dose: 50 mcg Documented By: MAIDA Discontinued Medications Calcium Gluconate () 1,000 mg in 60 mls @ 240 mls/hr IV NOW STA Stop: 09/28/23 16:46 Last Infusion: 09/28/23 18:49 Dose: Infused Documented By: Admin: 09/28/23 17:45 Dose: 240 mls/hr Documented By: DEEPTHI Bumetanide 2 mg/ Syringe 8 mls @ 4 mls/min IV ONE ONE Stop: 09/28/23 17:15 Last Admin: 09/28/23 17:59 Dose: 4 mls/min Documented By: DEEPTHI Calcium Gluconate () 1,000 mg in 60 mls @ 240 mls/hr IV NOW STA Stop: 09/28/23 22:29 Last Infusion: 09/28/23 22:54 Dose: Infused Documented By: Admin: 09/28/23 22:37 Dose: 240 mls/hr Documented By: KIMBERLY Sodium Zirconium Cyclosilicate (Sodium Zirconium Cyclosilicate 10 Gm Packet) 10 gm PO NOW STA Stop: 09/28/23 22:13 Last Admin: 09/28/23 22:38 Dose: 10 gm Documented By: KIMBERLY PG Care Time/CCT Total # of Minutes Spent Total Time Spent with Patient: Total time spent is greater than 50% in coordination of care (as documented) at patient's floor/unit and/or counseling patient:55 Coding [place] [address] INT INP/OBS CARE 3/75MIN Patient Type Established History Comprehensive Exam Comprehensive Medical Decision Making High Complexity Diagnoses Acute on chronic combined systolic and diastolic CHF (congestive heart failure) I50.43 Elevated troponin I level R79.89 CAD, multiple vessel I25.10 Cardiomyopathy, unspecified type I42.9 Cardiomyopathy type: unspecified HTN (hypertension), benign I10 Acute kidney injury superimposed on chronic kidney disease N17.9; N18.9 Time Spent (min) 90 (4) Cardiomyopathy Cardiomyopathy type: unspecified Qualified Code(s): I42.9 - Cardiomyopathy, unspecified
[2023-09-29 10:16] LABS: Hepatitis B Surface Ab Quant < 3.00 mIU/mL (>or=10mIU/mL Immune); Hepatitis B Surface Antibody Non-Immune
--- NOTE | 2023-09-29 14:02 | XCELERA ---
[id number]
--- NOTE | 2023-09-29 15:11 | Ultrasound Report ---
ULTRASOUND HEMODIALYSIS FISTULA CLINICAL HISTORY: Failure of dialysis access. COMPARISON STUDY: No priors. FINDINGS: Real-time grayscale and color Doppler sonography of a dialysis fistula in the distal left f orearm is performed. A fistula is identified, likely between the cephalic vein and radial artery. The fistula is patent. Velocities within the fistula measure up to 324 cm/s. No intraluminal thrombus is seen. The radial artery and cephalic vein are patent more proximally. IMPRESSION: The patient's dialysis fistula is patent. See above. Electronically signed by: Vishal Ibanez M.D. 09/29/2023 3:09 PM
--- NOTE | 2023-09-29 16:18 | Electrocardiogram Report ---
Test Reason : Blood Pressure : / mmHG Vent. Rate : 057 BPM Atrial Rate : 057 BPM P-R Int : 232 ms QRS Dur : 142 ms QT Int : 514 ms P-R-T Axes : 090 049 -48 degrees QTc Int : 500 ms Sinus bradycardia with 1st degree A-V block Right bundle branch block T wave abnormality, consider lateral ischemia Abnormal ECG When compared with ECG of 28-SEP-2023 16:25, (unconfirmed) Premature ventricular complexes are no longer Present Confirmed by Yony Mcgrath ([id number]) on 09/29/2023 4:18:20 PM Referred By: REFERRED SELF Confirmed By:Yony Mcgrath
--- NOTE | 2023-09-29 16:19 | Electrocardiogram Report ---
Test Reason : Blood Pressure : / mmHG Vent. Rate : 056 BPM Atrial Rate : 056 BPM P-R Int : 232 ms QRS Dur : 132 ms QT Int : 518 ms P-R-T Axes : 094 066 056 degrees QTc Int : 499 ms Sinus bradycardia with 1st degree A-V block with frequent Premature ventricular complexes in a patter n of bigeminy Right bundle branch block Septal infarct (cited on or before 09-SEP-2023) T wave abnormality, consider lateral ischemia Abnormal ECG When compared with ECG of 28-SEP-2023 15:21, Serial changes of Septal infarct Present Confirmed by Yony Mcgrath ([id number]) on 09/29/2023 4:18:58 PM Referred By: REFERRED SELF Confirmed By:Yony Mcgrath
--- NOTE | 2023-09-29 16:21 | Electrocardiogram Report ---
Test Reason : Blood Pressure : / mmHG Vent. Rate : 059 BPM Atrial Rate : 059 BPM P-R Int : 206 ms QRS Dur : 144 ms QT Int : 528 ms P-R-T Axes : 099 061 -44 degrees QTc Int : 522 ms Sinus bradycardia with frequent Premature ventricular complexes in a pattern of bigeminy Right bundle branch block T wave abnormality, consider lateral ischemia Abnormal ECG When compared with ECG of 28-SEP-2023 16:27, (unconfirmed) Premature ventricular complexes are now Present Confirmed by Yony Mcgrath ([id number]) on 09/29/2023 4:21:16 PM Referred By: REFERRED SELF Confirmed By:Yony Mcgrath
[2023-09-29] MEDS: ONDANSETRON 4 MG OD TAB PO PRN (21:25)
[2023-09-29] MEDS: INSULIN HUMAN NPH SQ SCH (22:59)
[2023-09-29] MEDS: PANTOprazole 40 MG TAB PO ONE (23:00)
[2023-09-30 06:39] LABS: Hematocrit (blood only) 36.9 % (42.0-52.0); Mean Corpuscular Hemoglobin 31.6 pg (25.0-34.0); Mean Corpuscular Hgb Conc 32.5 g/dL (32.0-36.0); Mean Corpuscular Volume 97.1 fL (80.0-100.0); Mean Platelet Volume 14.2 fL (9.4-12.4); Platelet Count 115 K/uL (130-400); RDW Coefficient of Variation 15.4 % (11.5-14.5); RDW Standard Deviation 55.5 fL (36.4-46.3); White Blood Count 8.54 K/ul (4.8-10.8)
[2023-09-30 06:43] LABS: Albumin Level 3.4 gm/dl (3.4-5.0); Calcium 8.9 mg/dl (8.6-10.3); Potassium 5.6 mmol/L (3.5-5.1)
[2023-09-30 06:59] LABS: BUN Creatinine Ratio 24.8 (10-20); Creatinine Clr Calc Pharmacy 16.2 ml/min; Est GFR (African American) 12.4 ml/min; Est GFR (Non-African American) 10.7 ml/min; Phosphorus 7.4 mg/dl (2.5-4.9)
[2023-09-30] MEDS: INSULIN HUMAN NPH SQ SCH (08:11)
[2023-09-30] MEDS: ACETAMINOPHEN 325 MG TAB PO PRN (08:17)
[2023-09-30] MEDS: INSULIN ASPART PER UNIT CHARGE SC SCH (08:18)
[2023-09-30] MEDS: LIDOCAINE 4% CREAM 15 GM TUBE EXT PRN (09:15)
--- NOTE | 2023-09-30 10:02 | Electrocardiogram Report ---
Test Reason : Blood Pressure : / mmHG Vent. Rate : 054 BPM Atrial Rate : 054 BPM P-R Int : 220 ms QRS Dur : 134 ms QT Int : 520 ms P-R-T Axes : 012 083 050 degrees QTc Int : 493 ms Sinus bradycardia with 1st degree A-V block with frequent Premature ventricular complexes in a patter n of bigeminy Right bundle branch block Septal infarct , age undetermined T wave abnormality, consider lateral ischemia Abnormal ECG When compared with ECG of 28-SEP-2023 19:21, Septal infarct is now Present Confirmed by Yony Mcgrath ([id number]) on 09/30/2023 10:02:11 AM Referred By: REFERRED SELF Confirmed By:Yony Mcgrath
[2023-09-30] MEDS: fentaNYL citrate PF 100 MCG/2 ML VIAL IV STA (11:10)
[2023-09-30] MEDS: fentaNYL citrate PF 100 MCG/2 ML VIAL ONE (11:10)
--- NOTE | 2023-09-30 11:11 | Procedure Note ---
Procedure Note Date of Service September 30, 2023 Note Procedure date: Noted above Procedure: Temporary hemodialysis catheter Pre-procedure indication: Need for hemodialysis, fistula unable to be adequately accessed Post-procedure Diagnosis: same as above Prior to Procedure: Informed Consent: The risks, benefits, indications, potential complications, and alternatives were explained to the patient and informed consent obtained. Attending Staff: Elif Gonzales DO Resident/APC: Farhad Skin Prep: Chlorhexidine Anesthesia: 4 mL 1% lidocaine without epinephrine The identity of the patient was confirmed and a bedside time out was performed. Description of Procedure: After sterile prep and sterile drape utilizing standard sterile technique the superficial skin of the right internal jugular area was anesthetized. The target vessel was identified and entered with an 18- gauge needle. Dark venous blood return was noted. A guidewire was inserted through the needle and into the vessel. The needle was withdrawn and a skin verna was made. A tissue dilator was advanced via Seldinger technique and removed. A double lumen catheter was inserted via Seldinger technique and the guidewire removed. All ports delores and flushed easily. A Biopatch was placed, and the catheter was secured via nylon suture. A sterile dressing was then applied. Complications: None Estimated blood loss: Trace Patient tolerated the procedure well. Procedure Date: Noted Above Procedure: Procedural Ultrasound Indication: Central venous access Attending: Elif Gonzales DO Resident/Physician Leather Roller: Farhad Artery visualized: Yes Vein visualized: Yes Compressible Vein: Yes Vein patent: Yes Guidewire or Short Catheter seen in vein prior to dilation: Yes Line confirmed in Vein with ultrasound: Yes Lung Sliding on side of attempt (if applicable): NA If no lung sliding or not obtained has CXR been ordered: Yes Impression: Successful central venous access placement Images obtained are saved for permanent record Coding CPT Codes Tubes, Drains, and Vasc Access - Tubes, Drains, and Vasc Access: [id number] Insert PICVAD cath 5 YRS> ([id number]) [facility] [place] Procedure Codes (Charges) Tubes, Drains, and Vasc Access Procedure 1: Tubes, Drains, and Vasc Access: [id number] Insert PICVAD cath 5 YRS>
--- NOTE | 2023-09-30 11:40 | XRay Report ---
XR chest 1V portable CLINICAL HISTORY: Dialysis line placement. TECHNIQUE: Single frontal radiograph of the chest was obtained. Comparison: Comparison is made to chest radiograph 09/27/2020 FINDINGS: Right venous catheter terminates in the mid SVC, in satisfactory position. Median sternotomy wires ar e unchanged. Cardiomegaly is noted. The lungs are clear. No evidence of pleural effusion or pneumotho rax. IMPRESSION: Right venous catheter is in satisfactory position. ACT 112: Negative or not required by law. Electronically signed by: Lai Marion M.D. 09/30/2023 11:39 AM
--- NOTE | 2023-09-30 12:22 | Nephrology Progress Note ---
Date of Service September 30, 2023 Assessment & Plan (1) Acute kidney injury superimposed on chronic kidney disease: Plan: CKD has progressed to ESRD. Unfortunately, we were not able to successfully cannulate the AVF. A temporary HD catheter was placed at the bedside this AM by Dr. Gonzales. Hemodialysis was then coordinated and treatment started. I will plan to run a second hemodialysis treatment tomorrow. If we are not able to use the AVF over the next few days for HD, vascular surgery will be consulted on Wednesday for evaluation and likely permcath placement. Dayton told me this AM that he anticipates moving to [place] with family once he is discharged from [facility]. If he moves to [place], he will dialyze at [facility] under the care of Dr. Richardson and will require appropriate accommodations prior to discharge. Medications are appropriately dosed for IHD. (2) Diabetic nephropathy: Plan: Primary cause of ESRD. (3) Acute on chronic combined systolic and diastolic CHF (congestive heart failure): Plan: Continue Bumex to encourage urine output. I discussed the plan of care with Dr. Encarnacion this AM. RAASi may be revisited once patient is established on HD. (4) Hyperkalemia: Plan: Improved. Maintain low potassium diet. Potassium should improve with dialysis today. Additional clearance with HD will be provided tomorrow. Admission and Anticipated Discharge Date Admission Date: September 28, 2023 Tavia Burris was seen and evaluated with DR. Encarnacion this morning prior to attempting dialysis. He describes generalized achiness and discomfort. He reported some mild chest discomfort but this was difficult to describe. He states that it is not a pain or heaviness. It appears to be located along the sides of his rib cage. He also reported pain in the back of his neck into his shoulders. He denies palpitations. He denies significant dyspnea. Urine output remains relatively low. We attempted to use the AVF for HD but were not able to successfully cannulate. Despite EMLA cream application, needle placement was very painful for Dayton. He became nauseous and vomiting while the AVF was being stuck. Additional attempts were abandoned and I called Dr. Gonzales for dialysis catheter placement. Once the hemodialysis catheter was placed, we were able to start a dialysis treatment with adequate blood flow. Dayton is tolerating HD reasonably well. Dayton told me this morning that he will be moving to [place] on October 03. Once he is in [place], he plans to continue dialysis at [facility] under the care of Dr. Richardson. Review of Systems Review of Systems: All systems reviewed & are unremarkable except as noted in HPI & below Physical Exam Constitutional: well developed; no acute distress Eyes: no scleral abnormality and no corneal abnormality ENMT: Mouth: no oral mucosal abnormality and oral mucous membranes not dry Neck: normal visual inspection and trachea midline Respiratory: normal respiratory effort Auscultation: lungs clear to auscultation bilaterally, + diminished lung sounds and + rales Cardiovascular: Rate/Rhythm: + bradycardic Heart Sounds: normal S1 and normal S2 Extremities: + edema (RLE) and + AV fistula (L RC AVF + bruit) Musculoskeletal: Extremities: no cyanosis and no clubbing Skin: normal turgor; no lesions Neurologic: Motor/Sensory: no tremor and no asterixis Psychiatric: Orientation: alert and oriented x 3 Results & Data Vital Signs (Past 12 Hours) Vital Signs Temp Pulse Pulse Pulse Resp BP Pulse Ox 09/30/23 10:35 09/30/23 08:05 36.3 C L 54 L 20 120/59 L 97 09/30/23 07:27 56 L 09/30/23 02:59 37.1 C 53 L 18 143/57 H 96 O2 Del Method O2 Flow Rate 09/30/23 10:35 Nasal Cannula 3 09/30/23 08:05 Nasal Cannula 4 09/30/23 07:27 09/30/23 02:59 Nasal Cannula 4 Laboratory Results Laboratory Results - last 24 hr 09/29/23 09/29/23 09/29/23 12:16 17:10 21:48 WBC RBC Hgb Hct MCV MCH MCHC RDW Std Deviation RDW Coeff of Jose Plt Count MPV Sodium Potassium Chloride Carbon Dioxide Anion Gap BUN Creatinine Est Cr Clr Drug Dosing Est GFR ( Amer) Est GFR (Non-Af Amer) BUN/Creatinine Ratio Glucose POC Glucose 186 H 194 H 201 H Calcium Phosphorus Albumin 09/30/23 09/30/23 06:06 08:09 WBC 8.54 RBC 3.80 L Hgb 12.0 L Hct 36.9 L MCV 97.1 MCH 31.6 MCHC 32.5 RDW Std Deviation 55.5 H RDW Coeff of Jose 15.4 H Plt Count 115 L MPV 14.2 H Sodium 132 L Potassium 5.6 H Chloride 100 Carbon Dioxide 22 Anion Gap 10 BUN 122 H Creatinine 4.92 H* D Est Cr Clr Drug Dosing 16.2 Est GFR ( Amer) 12.4 Est GFR (Non-Af Amer) 10.7 BUN/Creatinine Ratio 24.8 H Glucose 165 H POC Glucose 158 H Calcium 8.9 Phosphorus 7.4 H Albumin 3.4 PG Care Time/CCT Total # of Minutes Spent Total Time Spent with Patient: Total time spent is greater than 50% in coordination of care (as documented) at patient's floor/unit and/or counseling patient: Coding Level of Care Code 44732 SUB INP/OBS CARE 3/50MIN Diagnoses Acute kidney injury superimposed on chronic kidney disease N17.9; N18.9 Diabetic nephropathy E11.21 Acute on chronic combined systolic and diastolic CHF (congestive heart failure) I50.43 Hyperkalemia E87.5
--- NOTE | 2023-09-30 19:42 | Hospitalist Progress Note ---
Date of Service September 30, 2023 Assessment & Plan (1) Acute kidney injury superimposed on chronic kidney disease: Plan: concern for cardiorenal syndrome, oliguric, concern for need for Renal replacement therapy Acute kidney injury with CKD stage IV. Patient is an uric temporary dialysis catheter needed to be placed Nephrology's been consulted. Hyperkalemia receiving Bumex, no diuresis with Bumex therapy (2) Heart failure with mildly reduced ejection fraction (HFmrEF): Plan: Acute decompensated systolic congestive heart failure/congestive heart failure with reduced ejection fraction. Patient is anuric and dialysis will be undertaken for volume control not made any urine with IV attempts at diuresis. Ventricular bigeminy on presentation probably due to electrolyte abnormalities and CHF. No additional cardiac arrhythmias were present on 09/29 echocardiogram does not show reduction in ejection fraction or regional wall motion abnormalities Elevated troponins question possible non-STEMI versus demand ischemia. T wave changes seem similar to 09/02, making acute ischemia less likely . Patient does have a chronic elevation of troponin likely influenced by renal failure and now exacerbation of heart failure consider elevated troponin demand ischemia Coronary artery disease status post four-vessel CABG remotely. (3) Type 2 diabetes mellitus: Plan: Diabetes mellitus type 2 insulin requiring. Sliding scales been ordered as well as his basal home insulin. 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 Temporary dialysis catheter placed by critical care Physical Exam Physical Exam: Patient is lethargic but arousable Card exam is regular with a systolic murmur Lungs are diminished at the bases with crackles above Abdomen is protuberant dull he has a left BKA right lower extremity is with trace edema good thrill was felt in his left arm forearm although access cannot be attained by dialysis Note dialysis catheter was placed after I examined the patient. Results & Data Results & Data Vital Signs (Past 12 Hours) Vital Signs Temp Pulse Pulse Pulse Resp BP BP 09/30/23 15:59 97.7 F 52 L 18 128/61 09/30/23 14:36 97.5 F L 54 L 18 129/68 09/30/23 14:08 97.3 F L 51 L 121/65 09/30/23 14:00 51 L 101/60 09/30/23 13:54 54 L 09/30/23 13:30 43 L 104/51 L 09/30/23 13:00 52 L 114/70 09/30/23 12:30 52 L 109/56 L 09/30/23 12:00 54 L 99/51 L 09/30/23 11:30 53 L 104/53 L 09/30/23 11:03 97.7 F 53 L 09/30/23 10:35 09/30/23 08:05 97.3 F L 54 L 20 120/59 L Pulse Ox O2 Del Method O2 Flow Rate 09/30/23 15:59 95 Nasal Cannula 3 09/30/23 14:36 97 Oxymask 4 09/30/23 14:08 09/30/23 14:00 09/30/23 13:54 09/30/23 13:30 09/30/23 13:00 09/30/23 12:30 09/30/23 12:00 09/30/23 11:30 09/30/23 11:03 09/30/23 10:35 Nasal Cannula 3 09/30/23 08:05 97 Nasal Cannula 4 Laboratory Results Reviewed chemistry reviewed CBC PG Care Time/CCT Total # of Minutes Spent Total Time Spent with Patient: Total time spent is greater than 50% in coordination of care (as documented) at patient's floor/unit and/or counseling patient: Coding Level of Care Code 24189 SUB INP/OBS CARE 2/35MIN Diagnoses Acute kidney injury superimposed on chronic kidney disease N17.9; N18.9 Heart failure with mildly reduced ejection fraction (HFmrEF) I50.22 Type 2 diabetes mellitus E11.9
[2023-10-01 06:34] LABS: Hematocrit (blood only) 35.8 % (42.0-52.0); Hemoglobin 11.3 g/dl (14.0-18.0); Mean Corpuscular Hemoglobin 30.9 pg (25.0-34.0); Mean Corpuscular Hgb Conc 31.6 g/dL (32.0-36.0); Mean Corpuscular Volume 97.8 fL (80.0-100.0); Platelet Count 102 K/uL (130-400); RDW Coefficient of Variation 15.4 % (11.5-14.5); Red Blood Count 3.66 M/uL (4.70-6.10); White Blood Count 6.68 K/ul (4.8-10.8)
[2023-10-01 06:48] LABS: Albumin Level 3.4 gm/dl (3.4-5.0); BUN Creatinine Ratio 22.2 (10-20); Calcium 8.7 mg/dl (8.6-10.3); Creatinine Clr Calc Pharmacy 18.7 ml/min; Est GFR (African American) 14.6 ml/min; Est GFR (Non-African American) 12.6 ml/min; Phosphorus 5.6 mg/dl (2.5-4.9); Potassium 4.3 mmol/L (3.5-5.1)
[2023-10-01] MEDS: CARBOHYDRATES FOR HYPOGLYCEMIA PO PRN (06:49)
[2023-10-01] MEDS: BUMETANIDE 1 MG TAB PO SCH (08:07)
[2023-10-01] MEDS: HEPARIN SOD (PORCINE) 1000 UNIT/ML IV ONE (10:21)
[2023-10-01] MEDS: HEPARIN SOD (PORCINE) 1000 UNIT/ML IV SCH (10:21)
--- NOTE | 2023-10-01 12:42 | Nephrology Progress Note ---
Date of Service October 01, 2023 Assessment & Plan (1) Acute kidney injury superimposed on chronic kidney disease: Plan: CKD has progressed to ESRD. Unfortunately, we were not able to successfully cannulate the AVF. We may attempt to access again next week. A temporary HD catheter was placed by Dr. Gonzales on September 29. The catheter is functioning well. Dayton completed his first HD treatment on September 29. Orders for the second treatment were entered into the EHR today and reviewed with the lead printer. Dayton was seen and evaluated during treatment. I will plan a 3rd HD treatment tomorrow. If we are not able to use the AVF over the next few days for HD, vascular surgery will be consulted for evaluation and likely permcath placement. Medications are appropriately dosed for IHD. (2) Diabetic nephropathy: Plan: Primary cause of ESRD. (3) Acute on chronic combined systolic and diastolic CHF (congestive heart failure): Plan: Continue Bumex to encourage urine output. RAASi may be revisited once patient is established on HD. (4) Hyperkalemia: Plan: Improved. Additional clearance with HD will be provided tomorrow. Admission and Anticipated Discharge Date Admission Date: September 28, 2023 Subjective No acute events overnight. Completed HD yesterday without complications. Dayton was seen and evaluated during hemodialysis this morning. He is tolerating treatment well. TDC functioning well. Qb at goal. BP acceptable. No lightheadedness or dizziness. No chest pains or palpitations. No shortness of breath. No fevers or chills. Review of Systems Review of Systems: All systems reviewed & are unremarkable except as noted in HPI & below Physical Exam Constitutional: well developed; no acute distress Eyes: no scleral abnormality and no corneal abnormality ENMT: Mouth: no oral mucosal abnormality and oral mucous membranes not dry Neck: normal visual inspection and trachea midline Respiratory: normal respiratory effort Auscultation: lungs clear to auscultation bilaterally, + diminished lung sounds and + rales Cardiovascular: Rate/Rhythm: regular rate and + bradycardic Heart Sounds: normal S1 and normal S2 Extremities: + edema (RLE) and + AV fistula (L RC AVF + bruit) Musculoskeletal: Extremities: no cyanosis and no clubbing Skin: normal turgor; no lesions Neurologic: Motor/Sensory: no tremor and no asterixis Psychiatric: Orientation: alert and oriented x 3 Results & Data Vital Signs (Past 12 Hours) Vital Signs Temp Pulse Pulse Pulse Resp BP BP 10/01/23 12:28 36.3 C L 50 L 18 115/87 10/01/23 11:30 49 L 151/42 H 10/01/23 11:15 54 L 151/69 H 10/01/23 11:00 54 L 162/74 H 10/01/23 10:30 50 L 147/64 H 10/01/23 10:00 53 L 143/66 H 10/01/23 09:30 50 L 138/59 L 10/01/23 09:05 64 158/86 H 10/01/23 08:56 36.3 C L 54 L 10/01/23 08:32 36.2 C L 56 L 20 118/50 L 10/01/23 08:00 52 L 10/01/23 08:00 10/01/23 02:56 36.6 C 60 18 117/68 Pulse Ox O2 Del Method O2 Flow Rate 10/01/23 12:28 95 Nasal Cannula 3 10/01/23 11:30 10/01/23 11:15 10/01/23 11:00 10/01/23 10:30 10/01/23 10:00 10/01/23 09:30 10/01/23 09:05 10/01/23 08:56 10/01/23 08:32 94 Nasal Cannula 3 10/01/23 08:00 10/01/23 08:00 Nasal Cannula 3 10/01/23 02:56 92 Nasal Cannula 3 Laboratory Results Laboratory Results - last 24 hr 09/29/23 09/30/23 09/30/23 05:42 14:38 17:19 WBC RBC Hgb Hct MCV MCH MCHC RDW Std Deviation RDW Coeff of Jose Plt Count MPV Sodium Potassium Chloride Carbon Dioxide Anion Gap BUN Creatinine Est Cr Clr Drug Dosing Est GFR ( Amer) Est GFR (Non-Af Amer) BUN/Creatinine Ratio Glucose POC Glucose 116 H 121 H Calcium Phosphorus Albumin Hep B Core IgM Ab NON-REACTIVE 09/30/23 10/01/23 10/01/23 20:22 05:33 07:04 WBC 6.68 RBC 3.66 L Hgb 11.3 L Hct 35.8 L MCV 97.8 MCH 30.9 MCHC 31.6 L RDW Std Deviation 56.0 H RDW Coeff of Jose 15.4 H Plt Count 102 L MPV 14.0 H Sodium 135 L Potassium 4.3 D Chloride 101 Carbon Dioxide 25 Anion Gap 9 BUN 95 H D Creatinine 4.28 H D Est Cr Clr Drug Dosing 18.7 Est GFR ( Amer) 14.6 Est GFR (Non-Af Amer) 12.6 BUN/Creatinine Ratio 22.2 H Glucose 48 L* POC Glucose 135 H 69 L* Calcium 8.7 Phosphorus 5.6 H Albumin 3.4 Hep B Core IgM Ab 10/01/23 07:24 WBC RBC Hgb Hct MCV MCH MCHC RDW Std Deviation RDW Coeff of Jose Plt Count MPV Sodium Potassium Chloride Carbon Dioxide Anion Gap BUN Creatinine Est Cr Clr Drug Dosing Est GFR ( Amer) Est GFR (Non-Af Amer) BUN/Creatinine Ratio Glucose POC Glucose 93 Calcium Phosphorus Albumin Hep B Core IgM Ab PG Care Time/CCT Total # of Minutes Spent Total Time Spent with Patient: Total time spent is greater than 50% in coordination of care (as documented) at patient's floor/unit and/or counseling patient: Coding Level of Care Code 35072 SUB INP/OBS CARE 3/50MIN Diagnoses Acute kidney injury superimposed on chronic kidney disease N17.9; N18.9 Diabetic nephropathy E11.21 Acute on chronic combined systolic and diastolic CHF (congestive heart failure) I50.43 Hyperkalemia E87.5
--- NOTE | 2023-10-01 15:46 | Hospitalist Progress Note ---
Date of Service October 01, 2023 Assessment & Plan (1) Acute kidney injury superimposed on chronic kidney disease: Plan: concern for cardiorenal syndrome, oliguric, patient said not had renal replacement therapy on 2123 Acute kidney injury with CKD stage IV. Nephrology is following along and assessing his volume status and electrolytes for repeat dialysis needs Hyperkalemia corrected by dialysis (2) Heart failure with mildly reduced ejection fraction (HFmrEF): Plan: Acute decompensated systolic congestive heart failure/congestive heart failure with reduced ejection fraction. improved with dialysis Ventricular bigeminy on presentation probably due to electrolyte abnormalities and CHF. Did have some bradycardia arrhythmia and then recurred since 620 since dialysis has been started echocardiogram does not show reduction in ejection fraction or regional wall motion abnormalities Elevated troponins question possible non-STEMI versus demand ischemia. T wave changes seem similar to 09/02, making acute ischemia less likely . Patient does have a chronic elevation of troponin likely influenced by renal failure and now exacerbation of heart failure consider elevated troponin demand ischemia Coronary artery disease status post four-vessel CABG remotely. (3) Type 2 diabetes mellitus: Plan: Diabetes mellitus type 2 insulin requiring. 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 from diabetes complication Plan full code DVT prophylaxis with heparin twice daily given patient's creatinine Admission and Anticipated Discharge Date Admission Date: September 28, 2023 Subjective No additional issues with arrhythmia patient does not feel much better has a right IJ dialysis catheter in place currently Patient was dialyzed again on 10/01/2023 Physical Exam Physical Exam: Patient is less lethargic but still very uncomfortable Card exam is regular with a systolic murmur Lungs are diminished at the bases with crackles above Abdomen is protuberant dull he has a left BKA right lower extremity is with trace edema good thrill was felt in his left arm forearm although access cannot be attained by dialysis Note dialysis catheter was placed in right IJ. CT chest x-ray confirms placement Results & Data Results & Data Vital Signs (Past 12 Hours) Vital Signs Temp Pulse Pulse Pulse Resp BP BP 10/01/23 12:28 97.3 F L 50 L 18 115/87 10/01/23 12:15 97.3 F L 56 L 141/53 H 10/01/23 12:00 97.3 F L 56 L 148/41 H 10/01/23 11:30 49 L 151/42 H 10/01/23 11:15 54 L 151/69 H 10/01/23 11:00 54 L 162/74 H 10/01/23 10:30 50 L 147/64 H 10/01/23 10:00 53 L 143/66 H 10/01/23 09:30 50 L 138/59 L 10/01/23 09:05 64 158/86 H 10/01/23 08:56 97.3 F L 54 L 10/01/23 08:32 97.2 F L 56 L 20 118/50 L 10/01/23 08:00 52 L 10/01/23 08:00 Pulse Ox O2 Del Method O2 Flow Rate 10/01/23 12:28 95 Nasal Cannula 3 10/01/23 12:15 10/01/23 12:00 10/01/23 11:30 10/01/23 11:15 10/01/23 11:00 10/01/23 10:30 10/01/23 10:00 10/01/23 09:30 10/01/23 09:05 10/01/23 08:56 10/01/23 08:32 94 Nasal Cannula 3 10/01/23 08:00 10/01/23 08:00 Nasal Cannula 3 Laboratory Results Reviewed CBC reviewed chemistry PG Care Time/CCT Total # of Minutes Spent Total Time Spent with Patient: Total time spent is greater than 50% in coordination of care (as documented) at patient's floor/unit and/or counseling patient: Coding Level of Care Code 56090 SUB INP/OBS CARE 2/35MIN Diagnoses Acute kidney injury superimposed on chronic kidney disease N17.9; N18.9 Heart failure with mildly reduced ejection fraction (HFmrEF) I50.22 Type 2 diabetes mellitus E11.9
--- NOTE | 2023-10-02 00:45 | Communication Note ---
Date of Service: October 02, 2023 Called to bedside at 11:45 as patient noting 'feeling like he is going downhill". Nursing noted that patient's O2 saturation dropped to 80%, but recovered with Oxymask at 3L. Upon presentation to bedside patient noting 2 hours of headache, dyspnea and worsening weakness throughout the day. Vitals otherwise stable, but BP trending downward. Gen: NAD, fatigued, speaking in short phrases HEENT: Supple, dry mucous membranes Resp:Non-labored, faint lower lobe crackles on exam CV:RRR, normal S1/S2, no M/R/G Abd: Soft, non-distended, no TTP, normoactive bowels, no masses Extr: 2+ DP in RLE, BKA to LLE Neuro: No focal neurologic deficits, PERRLA Skin: No rashes lesions or erythema Plan - Headache: No FND/PERRLA, continue PRN Tylenol - CXR w/ concern for increasing pulmonary edema - CBC, CMP, Mag, Phos largely improved, creatinine downtrending/electrolytes stable - Patient oliguric, w/o documented UO during day shift, nursing noting void into brief this shift - Provided 1x dose of IV Bumex as BP remains stable w/ MAP ~ 75 - Suspect sx are largely related to ESRD, continue to pend 3rd session of dialysis 10/01 Resident Activity Tracking Resident Involvement: Resident Care Provided Care Provided: Adult Hospital Medicine
[2023-10-02] MEDS: BUMETANIDE 2 MG in SYRINGE 0 ML IV ONE (00:47)
[2023-10-02 01:09] LABS: Albumin Globulin Ratio 1.3 (0.9-2); Albumin Level 3.4 gm/dl (3.4-5.0); Bilirubin,Total 0.5 mg/dl (0.2-1.0); Calcium 8.6 mg/dl (8.6-10.3); Creatinine Clr Calc Pharmacy 20.8 ml/min; Est GFR (African American) 16.7 ml/min; Est GFR (Non-African American) 14.4 ml/min; Globulin 2.6 gm/dl (2.5-4.0); Magnesium 2.3 mg/dl (1.7-2.4); Phosphorus 4.9 mg/dl (2.5-4.9); Potassium 4.4 mmol/L (3.5-5.1)
[2023-10-02 01:34] LABS: Hemoglobin 11.5 g/dl (14.0-18.0); Mean Corpuscular Hemoglobin 31.3 pg (25.0-34.0); Mean Corpuscular Hgb Conc 31.9 g/dL (32.0-36.0); Mean Corpuscular Volume 98.1 fL (80.0-100.0); Mean Platelet Volume 14.2 fL (9.4-12.4); Platelet Count 84 K/uL (130-400); RDW Coefficient of Variation 15.4 % (11.5-14.5); RDW Standard Deviation 56.1 fL (36.4-46.3); Red Blood Count 3.67 M/uL (4.70-6.10); White Blood Count 5.34 K/ul (4.8-10.8)
--- NOTE | 2023-10-02 09:53 | XRay Report ---
SINGLE VIEW CHEST CLINICAL HISTORY: Hypoxia FINDINGS: 2 AP, portable, upright chest radiographs are compared to study dated 09/30/2023. A right in ternal jugular central catheter is unchanged in position. The patient is status post midline sternoto my. The heart is enlarged. There is pulmonary vascular congestion with interstitial edema. There are layering pleural effusions with dependent consolidation. No pneumothorax is seen. The skeletal struct ures are osteopenic. The bony thorax is grossly intact. IMPRESSION: 1. Cardiomegaly with evidence of congestive failure and pulmonary edema. 2. Layering pleural effusions with dependent consolidation. ACT 112: Negative or not required by law. Electronically signed by: Vishal Ibanez M.D. 10/02/2023 9:52 AM
--- NOTE | 2023-10-02 11:11 | Nephrology Progress Note ---
Date of Service October 02, 2023 Assessment & Plan (1) Acute kidney injury superimposed on chronic kidney disease: Plan: CKD has progressed to ESRD. Unfortunately, we were not able to successfully cannulate the AVF. We may attempt to access again next week. A temporary HD catheter was placed by Dr. Gonzales on September 29. The catheter is functioning well. Dayton completed his first HD treatment on September 29 and second treatment yesterday. Orders for the third treatment were entered into the EHR today and reviewed with the [employer] manager. Dayton was seen and evaluated during treatment. He is tolerating HD well. Additional UF is being taken as tolerated this AM. I will plan to hold HD tomorrow and provide the next treatment on Wednesday. If we are not able to use the AVF on Wednesday, vascular surgery will be consulted for evaluation and likely permcath placement. Medications are appropriately dosed for IHD. (2) Diabetic nephropathy: Plan: Primary cause of ESRD. (3) Acute on chronic combined systolic and diastolic CHF (congestive heart failure): Plan: Continue Bumex to encourage urine output. RAASi may be revisited once patient is established on HD. Admission and Anticipated Discharge Date Admission Date: September 28, 2023 Subjective Noted some dyspnea overnight. Dayton was seen and evaluated during HD this morning. He feels well. Some discomfort reported in his lower back from lying in bed. Reports generalized itch. Dayton is breathing comfortably. He denies chest pains or palpitations. BP acceptable. Review of Systems Review of Systems: All systems reviewed & are unremarkable except as noted in HPI & below Physical Exam Constitutional: well developed; no acute distress Eyes: no scleral abnormality and no corneal abnormality ENMT: Mouth: no oral mucosal abnormality and oral mucous membranes not dry Neck: normal visual inspection and trachea midline RIJ non-tunneled HD cath Respiratory: normal respiratory effort Auscultation: lungs clear to auscultation bilaterally and + diminished lung sounds Cardiovascular: Rate/Rhythm: regular rate and + bradycardic Heart Sounds: normal S1 and normal S2 Extremities: + edema (RLE) and + AV fistula (L RC AVF + bruit) Musculoskeletal: Extremities: no cyanosis and no clubbing Skin: normal turgor; no lesions Neurologic: Motor/Sensory: no tremor and no asterixis Psychiatric: Orientation: alert and oriented x 3 Results & Data Vital Signs (Past 12 Hours) Vital Signs Temp Pulse Pulse Resp BP Pulse Ox O2 Del Method 10/02/23 08:00 52 L 10/02/23 08:00 Nasal Cannula 10/02/23 07:13 36.3 C L 60 18 147/70 H 95 Nasal Cannula 10/02/23 03:54 36.6 C 52 L 18 137/61 98 Room Air O2 Flow Rate 10/02/23 08:00 10/02/23 08:00 3 10/02/23 07:13 10/02/23 03:54 Laboratory Results Laboratory Results - last 24 hr 10/01/23 10/01/23 10/01/23 12:27 16:26 20:55 WBC RBC Hgb Hct MCV MCH MCHC RDW Std Deviation RDW Coeff of Jose Plt Count MPV Sodium Potassium Chloride Carbon Dioxide Anion Gap BUN Creatinine Est Cr Clr Drug Dosing Est GFR ( Amer) Est GFR (Non-Af Amer) BUN/Creatinine Ratio Glucose POC Glucose 93 74 69 L* Calcium Phosphorus Magnesium Total Bilirubin AST ALT Alkaline Phosphatase Total Protein Albumin Globulin Albumin/Globulin Ratio 10/01/23 10/01/23 10/02/23 21:37 23:36 00:18 WBC RBC Hgb Hct MCV MCH MCHC RDW Std Deviation RDW Coeff of Jose Plt Count MPV Sodium 134 L Potassium 4.4 Chloride 102 Carbon Dioxide 25 Anion Gap 7 BUN 73 H D Creatinine 3.84 H D Est Cr Clr Drug Dosing 20.8 Est GFR ( Amer) 16.7 Est GFR (Non-Af Amer) 14.4 BUN/Creatinine Ratio 19.0 Glucose 74 POC Glucose 83 80 Calcium 8.6 Phosphorus 4.9 Magnesium 2.3 Total Bilirubin 0.5 AST 40 H ALT 33 Alkaline Phosphatase 115 H Total Protein 6.0 Albumin 3.4 Globulin 2.6 Albumin/Globulin Ratio 1.3 10/02/23 10/02/23 10/02/23 00:27 06:53 07:10 WBC 5.34 RBC 3.67 L Hgb 11.5 L Hct 36.0 L MCV 98.1 MCH 31.3 MCHC 31.9 L RDW Std Deviation 56.1 H RDW Coeff of Jose 15.4 H Plt Count 84 L MPV 14.2 H Sodium Potassium Chloride Carbon Dioxide Anion Gap BUN Creatinine Est Cr Clr Drug Dosing Est GFR ( Amer) Est GFR (Non-Af Amer) BUN/Creatinine Ratio Glucose POC Glucose 69 L* 94 Calcium Phosphorus Magnesium Total Bilirubin AST ALT Alkaline Phosphatase Total Protein Albumin Globulin Albumin/Globulin Ratio PG Care Time/CCT Total # of Minutes Spent Total Time Spent with Patient: Total time spent is greater than 50% in coordination of care (as documented) at patient's floor/unit and/or counseling patient: Coding Level of Care Code 33928 SUB INP/OBS CARE 3/50MIN Diagnoses Acute kidney injury superimposed on chronic kidney disease N17.9; N18.9 Diabetic nephropathy E11.21 Acute on chronic combined systolic and diastolic CHF (congestive heart failure) I50.43
--- NOTE | 2023-10-02 14:35 | Hospitalist Progress Note ---
Date of Service October 02, 2023 Assessment & Plan (1) Acute kidney injury superimposed on chronic kidney disease: Plan: concern for cardiorenal syndrome, oliguric, pt has some respiratory distress overnight 09/30- dialysis on 10/02/23 Acute kidney injury with CKD stage IV. Hyperkalemia corrected by dialysis (2) Heart failure with mildly reduced ejection fraction (HFmrEF): Plan: Acute decompensated systolic congestive heart failure/congestive heart failure with reduced ejection fraction. Nephrology did recommend starting po bumex 10/02/23 NO further arrhythmias since 09/29 echocardiogram does not show reduction in ejection fraction or regional wall motion abnormalities Elevated troponins question possible non-STEMI versus demand ischemia. T wave changes seem similar to 09/02, making acute ischemia less likely . Patient does have a chronic elevation of troponin likely influenced by renal failure and now exacerbation of heart failure consider elevated troponin demand ischemia Coronary artery disease status post four-vessel CABG remotely. (3) Type 2 diabetes mellitus: Plan: Diabetes mellitus type 2 insulin requiring. 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,likely secondary to vascular disease from diabetes complication Plan full code DVT prophylaxis with heparin twice daily given patient's creatinine Admission and Anticipated Discharge Date Admission Date: September 28, 2023 Subjective Noted some dyspnea overnight.cxr looks consistent with pulmonary edema, renal recommended HD this morning pt looking forward to moving to [place] to be with family Physical Exam Physical Exam: Patient is less lethargic but still very uncomfortable, was short of breath this am Card exam is regular with a systolic murmur Lungs are diminished at the bases with crackles above Abdomen is protuberant dull he has a left BKA right lower extremity is with trace edema good thrill was felt in his left arm forearm although access cannot be attained by dialysis Note dialysis catheter was placed in right IJ. dialysis today Results & Data Results & Data Vital Signs (Past 12 Hours) Vital Signs Temp Pulse Pulse Resp BP BP Pulse Ox 10/02/23 12:30 97.5 F L 64 153/75 H 10/02/23 12:00 78 166/78 H 10/02/23 11:30 64 155/93 H 10/02/23 11:00 53 L 96/72 L 10/02/23 10:30 51 L 131/109 H 10/02/23 10:00 47 L 147/76 H 10/02/23 09:30 57 L 139/51 L 10/02/23 09:11 97.3 F L 57 L 10/02/23 08:00 52 L 10/02/23 08:00 10/02/23 07:13 97.3 F L 60 18 147/70 H 95 10/02/23 03:54 97.9 F 52 L 18 137/61 98 O2 Del Method O2 Flow Rate 10/02/23 12:30 10/02/23 12:00 10/02/23 11:30 10/02/23 11:00 10/02/23 10:30 10/02/23 10:00 10/02/23 09:30 10/02/23 09:11 10/02/23 08:00 10/02/23 08:00 Nasal Cannula 3 10/02/23 07:13 Nasal Cannula 10/02/23 03:54 Room Air Laboratory Results review cbc review chemistry PG Care Time/CCT Total # of Minutes Spent Total Time Spent with Patient: Total time spent is greater than 50% in coordination of care (as documented) at patient's floor/unit and/or counseling patient: Coding Level of Care Code 33422 SUB INP/OBS CARE 2/35MIN Diagnoses Acute kidney injury superimposed on chronic kidney disease N17.9; N18.9 Heart failure with mildly reduced ejection fraction (HFmrEF) I50.22 Type 2 diabetes mellitus E11.9
[2023-10-03 06:26] LABS: Hematocrit (blood only) 33.5 % (42.0-52.0); Hemoglobin 10.9 g/dl (14.0-18.0); Mean Corpuscular Hemoglobin 31.6 pg (25.0-34.0); Mean Corpuscular Hgb Conc 32.5 g/dL (32.0-36.0); Mean Corpuscular Volume 97.1 fL (80.0-100.0); Mean Platelet Volume 14.2 fL (9.4-12.4); Platelet Count 81 K/uL (130-400); RDW Coefficient of Variation 15.2 % (11.5-14.5); RDW Standard Deviation 54.8 fL (36.4-46.3); Red Blood Count 3.45 M/uL (4.70-6.10); White Blood Count 5.52 K/ul (4.8-10.8)
[2023-10-03 06:44] LABS: Albumin Level 3.2 gm/dl (3.4-5.0); BUN Creatinine Ratio 19.6 (10-20); Calcium 8.2 mg/dl (8.6-10.3); Creatinine Clr Calc Pharmacy 24.2 ml/min; Est GFR (African American) 20.7 ml/min; Est GFR (Non-African American) 17.9 ml/min; Phosphorus 4.4 mg/dl (2.5-4.9); Potassium 4.3 mmol/L (3.5-5.1)
[2023-10-03 11:51] LABS: Appearance Urine Cloudy (Clear); Bacteria Urine Automated None Seen (None Seen); Bilirubin Urine Negative (Negative); Blood Urine Negative (Negative); Calcium Oxalate Crystals Urine Present (None Prsent); Cast Urine Automated >20 /lpf (0-2); Color Urine Yellow; Glucose Urine UA Trace (Negative); Ketones Urine Negative (Negative); Leukocyte Esterase Urine Negative (Negative); Nitrite Urine Negative (Negative); Protein Urine 2+ (Negative); Specific Gravity Urine 1.015 (1.000-1.030); Urobilinogen Urine Negative (Negative); WBC Urine Automated 0-5 /hpf (0-5)
--- NOTE | 2023-10-03 13:36 | Nephrology Progress Note ---
Date of Service October 03, 2023 Assessment & Plan (1) Acute kidney injury superimposed on chronic kidney disease: Plan: CKD has progressed to ESRD. A temporary HD catheter was placed by Dr. Gonzales on September 29. The catheter is functioning well. Dayton completed his first HD treatment on September 29. He completed HD on September 30 and for additional clearance and UF. He is tolerating dialysis well. I am planning to run another dialysis treatment tomorrow for additional UF. RC AVF is mature but we were not able to successfully cannulate. The venous needle infiltrated when attempting to stick the fistula on September 29. Thankfully no significant hematoma or bruising was noted. A follow up US was reassuring. We will attempt to use the AVF tomorrow. If we are not able to cannulate for HD tomorrow, vascular surgery consultation will be required and permcath placement considered for continued dialysis treatments. Medications are appropriately dosed for IHD. (2) Diabetic nephropathy: Plan: Primary cause of ESRD. Dayton follows with Dr. Richardson. He plans to dialyze under her care at [facility] or [place] (depending on where he is living at the time of hospital discharge). Dayton is in the process of moving from [place] to [place]. (3) Acute on chronic combined systolic and diastolic CHF (congestive heart failure): Plan: Continue Bumex to encourage urine output. RAASi may be revisited once patient is established on HD. Continue Bumex to encourage urine output. Admission and Anticipated Discharge Date Admission Date: September 28, 2023 Subjective No acute events overnight. Dayton was resting comfortably in bed this AM. He is breathing more comfortably. He denies chest pains or palpitations. He tolerated HD well yesterday. No complications with treatment. I discussed the plan of care with Dr. Encarnacion this AM. Review of Systems Review of Systems: All systems reviewed & are unremarkable except as noted in HPI & below Physical Exam Constitutional: well developed; no acute distress Eyes: no scleral abnormality and no corneal abnormality ENMT: Mouth: no oral mucosal abnormality and oral mucous membranes not dry Neck: normal visual inspection and trachea midline RIJ HD catheter Respiratory: normal respiratory effort Auscultation: lungs clear to auscultation bilaterally and + diminished lung sounds Cardiovascular: Rate/Rhythm: regular rate and + bradycardic Heart Sounds: normal S1 and normal S2 Extremities: + edema (RLE) and + AV fistula (L RC AVF + bruit) Musculoskeletal: Extremities: no cyanosis and no clubbing Skin: normal turgor; no lesions Neurologic: Motor/Sensory: no tremor and no asterixis Psychiatric: Orientation: alert and oriented x 3 Results & Data Vital Signs (Past 12 Hours) Vital Signs Temp Pulse Pulse Resp BP Pulse Ox O2 Del Method 10/03/23 11:37 36.6 C 64 19 163/81 H 92 Nasal Cannula 10/03/23 08:01 36.5 C 61 19 151/70 H 92 Nasal Cannula 10/03/23 03:21 36.5 C 59 L 18 156/54 H 95 Room Air O2 Flow Rate 10/03/23 11:37 2 10/03/23 08:01 2 10/03/23 03:21 Laboratory Results Laboratory Results - last 24 hr 10/02/23 10/02/23 10/03/23 16:04 20:15 05:52 WBC 5.52 RBC 3.45 L Hgb 10.9 L Hct 33.5 L MCV 97.1 MCH 31.6 MCHC 32.5 RDW Std Deviation 54.8 H RDW Coeff of Jose 15.2 H Plt Count 81 L MPV 14.2 H Sodium 134 L Potassium 4.3 Chloride 102 Carbon Dioxide 24 Anion Gap 8 BUN 63 H Creatinine 3.21 H D Est Cr Clr Drug Dosing 24.2 Est GFR ( Amer) 20.7 Est GFR (Non-Af Amer) 17.9 BUN/Creatinine Ratio 19.6 Glucose 235 H POC Glucose 174 H 214 H Calcium 8.2 L Phosphorus 4.4 Albumin 3.2 L Urine Color Urine Appearance Urine pH Ur Specific [place] Urine Protein Urine Glucose (UA) Urine Ketones Urine Blood Urine Nitrite Urine Bilirubin Urine Urobilinogen Ur Leukocyte Esterase Urine WBC (Auto) Urine RBC (Auto) U Hyaline Cast (Auto) U Epithel Cells (Auto) Urine Bacteria (Auto) Calcium Oxalate Crystal 10/03/23 10/03/23 10/03/23 07:45 10:55 11:10 WBC RBC Hgb Hct MCV MCH MCHC RDW Std Deviation RDW Coeff of Jose Plt Count MPV Sodium Potassium Chloride Carbon Dioxide Anion Gap BUN Creatinine Est Cr Clr Drug Dosing Est GFR ( Amer) Est GFR (Non-Af Amer) BUN/Creatinine Ratio Glucose POC Glucose 230 H 264 H Calcium Phosphorus Albumin Urine Color Yellow Urine Appearance Cloudy A Urine pH 5.0 Ur Specific [place] 1.015 Urine Protein 2+ H Urine Glucose (UA) Trace H Urine Ketones Negative Urine Blood Negative Urine Nitrite Negative Urine Bilirubin Negative Urine Urobilinogen Negative Ur Leukocyte Esterase Negative Urine WBC (Auto) 0-5 Urine RBC (Auto) 3-5 H U Hyaline Cast (Auto) >20 H U Epithel Cells (Auto) 3-5 H Urine Bacteria (Auto) None Seen Calcium Oxalate Crystal Present A PG Care Time/CCT Total # of Minutes Spent Total Time Spent with Patient: Total time spent is greater than 50% in coordination of care (as documented) at patient's floor/unit and/or counseling patient: Coding Level of Care Code 67571 SUB INP/OBS CARE 350MIN Diagnoses Acute kidney injury superimposed on chronic kidney disease N17.9; N18.9 Diabetic nephropathy E11.21 Acute on chronic combined systolic and diastolic CHF (congestive heart failure) I50.43
--- NOTE | 2023-10-03 13:49 | Hospitalist Progress Note ---
Date of Service October 03, 2023 Assessment & Plan (1) Acute kidney injury superimposed on chronic kidney disease: Plan: concern for cardiorenal syndrome, oliguric, pt has some respiratory distress greatly improved after a few dialysis session Acute kidney injury with CKD stage IV. Hyperkalemia corrected by dialysis Patient has had challenges with his AV fistula being both painful access time with poor flow. Subsequently he had a right IJ temporary dialysis catheter placed he will need to have more secure source for renal replacement therapy and likely will have a consult with Dr. Howard to consider revision versus tunneled catheter placement. This consult was placed with Dr. Howard is unavailable over the weekend. (2) Heart failure with mildly reduced ejection fraction (HFmrEF): Plan: Acute decompensated systolic congestive heart failure/congestive heart failure with reduced ejection fraction. Nephrology did recommend starting po bumex 10/02/23 NO further arrhythmias since 09/29 echocardiogram does not show reduction in ejection fraction or regional wall motion abnormalities Elevated troponins question possible non-STEMI versus demand ischemia. T wave changes seem similar to 09/02, making acute ischemia less likely . Patient does have a chronic elevation of troponin likely influenced by renal failure and now exacerbation of heart failure consider elevated troponin demand ischemia Coronary artery disease status post four-vessel CABG remotely. (3) Type 2 diabetes mellitus: Plan: Diabetes mellitus type 2 insulin requiring. 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,likely secondary to vascular disease from diabetes complication Plan full code DVT prophylaxis with heparin twice daily given patient's creatinine Admission and Anticipated Discharge Date Admission Date: September 28, 2023 Subjective No acute events overnight., feels improved after dialysis one day prior, likely consider discharge in next few days once fistulae is fixed or tunnel cath placed Physical Exam Physical Exam: Patient not short of breath and less distress Card exam is regular with a systolic murmur Lungs are diminished at the bases with less rales Abdomen is protuberant dull he has a left BKA right lower extremity is with trace edema good thrill was felt in his left arm forearm although access cannot be attained by dialysis Note dialysis catheter was placed in right IJ. dialysis today Results & Data Results & Data Vital Signs (Past 12 Hours) Vital Signs Temp Pulse Pulse Resp BP Pulse Ox O2 Del Method 10/03/23 11:37 97.9 F 64 19 163/81 H 92 Nasal Cannula 10/03/23 08:01 97.7 F 61 19 151/70 H 92 Nasal Cannula 10/03/23 03:21 97.7 F 59 L 18 156/54 H 95 Room Air O2 Flow Rate 10/03/23 11:37 2 10/03/23 08:01 2 10/03/23 03:21 Laboratory Results Reviewed CBC reviewed PRP PG Care Time/CCT Total # of Minutes Spent Total Time Spent with Patient: Total time spent is greater than 50% in coordination of care (as documented) at patient's floor/unit and/or counseling patient: Coding Level of Care Code 17251 SUB INP/OBS CARE 235MIN Diagnoses Acute kidney injury superimposed on chronic kidney disease N17.9; N18.9 Heart failure with mildly reduced ejection fraction (HFmrEF) I50.22 Type 2 diabetes mellitus E11.9
[2023-10-04 06:36] LABS: Hematocrit (blood only) 33.3 % (42.0-52.0); Hemoglobin 10.8 g/dl (14.0-18.0); Mean Corpuscular Hemoglobin 31.4 pg (25.0-34.0); Mean Corpuscular Hgb Conc 32.4 g/dL (32.0-36.0); Mean Corpuscular Volume 96.8 fL (80.0-100.0); Mean Platelet Volume 14.3 fL (9.4-12.4); Platelet Count 85 K/uL (130-400); RDW Standard Deviation 53.2 fL (36.4-46.3); Red Blood Count 3.44 M/uL (4.70-6.10); White Blood Count 5.37 K/ul (4.8-10.8)
[2023-10-04 07:14] LABS: Albumin Level 3.3 gm/dl (3.4-5.0); BUN Creatinine Ratio 22.6 (10-20); Calcium 8.5 mg/dl (8.6-10.3); Creatinine Clr Calc Pharmacy 22.9 ml/min; Est GFR (African American) 19.3 ml/min; Est GFR (Non-African American) 16.6 ml/min; Phosphorus 4.7 mg/dl (2.5-4.9); Potassium 4.3 mmol/L (3.5-5.1)
--- NOTE | 2023-10-04 08:43 | Nephrology Progress Note ---
Date of Service October 04, 2023 Assessment & Plan (1) ESRD (end stage renal disease): Plan: * 1st HD treatment 09/29/21 * AVF infiltrated during 1st treatment and patient required temporary IJ HD catheter insertion * Will have HD RN assess AVF and use today if possible. If AVF cannot be used, will ask Vascular Surgery to assess patient for IJ TCC and revision of AVF * Case management is assisting with discharge disposition as patient is in the process of moving from [place] to [place] to be closer to family (2) Acute on chronic combined systolic and diastolic CHF (congestive heart failure): Plan: * Continue Bumex to encourage urine output (400 cc last 24 hrs) * RAASi may be revisited once patient is established on HD Admission and Anticipated Discharge Date Admission Date: September 28, 2023 Subjective Mr. Em was evaluated in his hospital room this morning. He was breathing comfortably on O2 at 2 L/min NC. He voiced no new medical concerns. Review of Systems Constitutional: no fever Eyes: no problem reported Ear, Nose, Mouth, Throat: no problem reported Respiratory: no cough and no dyspnea Cardiovascular: no chest pain Gastrointestinal: no abdominal pain, no nausea, no vomiting and no diarrhea/loose stools Integumentary: no rash Neurologic: no problem reported Physical Exam Constitutional: not in distress Eyes: PERRL, conjunctivae normal, anicteric sclerae ENMT: external ear and nose normal, oropharynx normal Neck: trachea midline, no thyromegaly Respiratory: normal respiratory effort, lungs clear to auscultation Cardiovascular: Rate/Rhythm: + bradycardic Heart Sounds: normal S1 and normal S2 Gastrointestinal (Abdomen): normal bowel sounds, soft, nontender, no hepatosplenomegaly Skin: no rashes, warm and dry Neurologic: Speech / Cognition: normal speech and normal cognition Results & Data Vital Signs (Past 12 Hours) Vital Signs Temp Pulse Pulse Resp BP Pulse Ox O2 Del Method 10/04/23 07:22 62 10/04/23 07:15 36.4 C L 63 18 163/78 H 96 Nasal Cannula 10/04/23 02:51 36.5 C 55 L 18 152/72 H 96 Room Air 10/03/23 22:53 36.6 C 56 L 18 147/68 H 93 Nasal Cannula 10/03/23 21:10 Nasal Cannula O2 Flow Rate 10/04/23 07:22 10/04/23 07:15 10/04/23 02:51 3 10/03/23 22:53 2 10/03/23 21:10 2 Laboratory Results Laboratory Results - last 24 hr 10/03/23 10/03/23 10/03/23 10:55 11:10 16:27 WBC RBC Hgb Hct MCV MCH MCHC RDW Std Deviation RDW Coeff of Jose Plt Count MPV Sodium Potassium Chloride Carbon Dioxide Anion Gap BUN Creatinine Est Cr Clr Drug Dosing Est GFR ( Amer) Est GFR (Non-Af Amer) BUN/Creatinine Ratio Glucose POC Glucose 264 H 281 H Calcium Phosphorus Albumin Urine Color Yellow Urine Appearance Cloudy A Urine pH 5.0 Ur Specific [place] 1.015 Urine Protein 2+ H Urine Glucose (UA) Trace H Urine Ketones Negative Urine Blood Negative Urine Nitrite Negative Urine Bilirubin Negative Urine Urobilinogen Negative Ur Leukocyte Esterase Negative Urine WBC (Auto) 0-5 Urine RBC (Auto) 3-5 H U Hyaline Cast (Auto) >20 H U Epithel Cells (Auto) 3-5 H Urine Bacteria (Auto) None Seen Calcium Oxalate Crystal Present A 10/03/23 10/04/23 10/04/23 20:11 05:19 07:12 WBC 5.37 RBC 3.44 L Hgb 10.8 L Hct 33.3 L MCV 96.8 MCH 31.4 MCHC 32.4 RDW Std Deviation 53.2 H RDW Coeff of Jose 15.0 H Plt Count 85 L MPV 14.3 H Sodium 135 L Potassium 4.3 Chloride 102 Carbon Dioxide 24 Anion Gap 9 BUN 77 H Creatinine 3.41 H Est Cr Clr Drug Dosing 22.9 Est GFR ( Amer) 19.3 Est GFR (Non-Af Amer) 16.6 BUN/Creatinine Ratio 22.6 H Glucose 241 H POC Glucose 275 H 233 H Calcium 8.5 L Phosphorus 4.7 Albumin 3.3 L Urine Color Urine Appearance Urine pH Ur Specific [place] Urine Protein Urine Glucose (UA) Urine Ketones Urine Blood Urine Nitrite Urine Bilirubin Urine Urobilinogen Ur Leukocyte Esterase Urine WBC (Auto) Urine RBC (Auto) U Hyaline Cast (Auto) U Epithel Cells (Auto) Urine Bacteria (Auto) Calcium Oxalate Crystal PG Care Time/CCT Total # of Minutes Spent Total Time Spent with Patient: Total time spent is greater than 50% in coordination of care (as documented) at patient's floor/unit and/or counseling patient: Coding Level of Care Code 40773 SUB INP/OBS CARE MIN Diagnoses ESRD (end stage renal disease) N18.6 Acute on chronic combined systolic and diastolic CHF (congestive heart failure) I50.43
--- NOTE | 2023-10-04 09:25 | Cardiology Progress Note ---
Date of Service October 04, 2023 Assessment & Plan (1) Acute on chronic combined systolic and diastolic CHF (congestive heart failure): (2) Elevated troponin I level: (3) Cardiomyopathy: (4) CAD, multiple vessel: Plan Mr. 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 Patient is currently being seen in room 460-1. He has had dialysis 4 times since being admitted, he is less SOB and his body weight is down 4 kg. He is tolerating dialysis well and will have another session today. Echocardiogram 09/29/23 showed normal LV systolic function, moderate concentric LVH, LVEF 50% to 55% with normal wall motion, mild MR. Recommend the followin. 2 g low-sodium diet. 2. Continue dialysis as per Nephrology. 3. Continue Toprol XL 25 mg daily. 4. Continue Imdur ER 30 mg daily. 5. Continue Hydralazine 75 mg t.i.d.. 6. Continue IV Bumex 2 mg b.i.d.. 7. Continue Atorvastatin 80 mg daily. 8. Continue Aspirin 81 mg daily. 9. He is not a candidate for an ACEI, ARB, or Entresto currently due to his degree of renal failure -- however after being on dialysis, we can reconsider these options in the future. 10. Monitor daily body weights, I&O's. Admission and Anticipated Discharge Date Admission Date: September 28, 2023 Subjective Mr. Em is being seen in room 460-1 and he offers no complaints today. He is less SOB after hemodialysis/UF x 4 sessions. His body weight is down approximately 4 kg since admission. Review of Systems Review of Systems: -- As per HPI. Physical Exam Physical Exam: GENERAL: Chronically ill-appearing male in no acute distress. HEENT: Head is atraumatic, normocephalic. EOM's intact. Facies symmetric. No perioral cyanosis. NECK: Right jugular catheter is present. Carotid upstrokes are + 2 bilaterally without bruits. CHEST/LUNGS: Absent breath sounds in the bases scattered crackles in the lower lung sterling. CVS: S1 and S2 are in a bigeminal pattern. No murmurs, gallops, or rubs. PMI is nonpalpable. No lifts, heaves, or thrills. No abdominal aortic or renal bruits. ABDOMINAL EXAM: Bowel sounds are present. No masses, organomegaly, or tenderness. EXTREMITIES: No clubbing or cyanosis. L BKA is present, prosthesis in place. RLE with +1 to +2 pretibial pitting edema to the proximal tibia. Intact radial pulses bilaterally. NEUROLOGIC EXAM: Patient is awake, alert, and oriented. Pleasant and cooperative. Answers questions appropriately. Speech is clear. SKETCH ARTIST: -- Sinus rhythm with ventricular bigemin y. Results & Data Vital Signs (Past 12 Hours) Vital Signs Temp Pulse Pulse Resp BP Pulse Ox O2 Del Method 10/04/23 07:22 62 10/04/23 07:15 36.4 C L 63 18 163/78 H 96 Nasal Cannula 10/04/23 02:51 36.5 C 55 L 18 152/72 H 96 Room Air 10/03/23 22:53 36.6 C 56 L 18 147/68 H 93 Nasal Cannula O2 Flow Rate 10/04/23 07:22 10/04/23 07:15 10/04/23 02:51 3 10/03/23 22:53 2 Laboratory Results Laboratory Results - last 24 hr 10/03/23 10/03/23 10/03/23 10:55 11:10 16:27 WBC RBC Hgb Hct MCV MCH MCHC RDW Std Deviation RDW Coeff of Jose Plt Count MPV Sodium Potassium Chloride Carbon Dioxide Anion Gap BUN Creatinine Est Cr Clr Drug Dosing Est GFR ( Amer) Est GFR (Non-Af Amer) BUN/Creatinine Ratio Glucose POC Glucose 264 H 281 H Calcium Phosphorus Albumin Urine Color Yellow Urine Appearance Cloudy A Urine pH 5.0 Ur Specific [place] 1.015 Urine Protein 2+ H Urine Glucose (UA) Trace H Urine Ketones Negative Urine Blood Negative Urine Nitrite Negative Urine Bilirubin Negative Urine Urobilinogen Negative Ur Leukocyte Esterase Negative Urine WBC (Auto) 0-5 Urine RBC (Auto) 3-5 H U Hyaline Cast (Auto) >20 H U Epithel Cells (Auto) 3-5 H Urine Bacteria (Auto) None Seen Calcium Oxalate Crystal Present A 10/03/23 10/04/23 10/04/23 20:11 05:19 07:12 WBC 5.37 RBC 3.44 L Hgb 10.8 L Hct 33.3 L MCV 96.8 MCH 31.4 MCHC 32.4 RDW Std Deviation 53.2 H RDW Coeff of Jose 15.0 H Plt Count 85 L MPV 14.3 H Sodium 135 L Potassium 4.3 Chloride 102 Carbon Dioxide 24 Anion Gap 9 BUN 77 H Creatinine 3.41 H Est Cr Clr Drug Dosing 22.9 Est GFR ( Amer) 19.3 Est GFR (Non-Af Amer) 16.6 BUN/Creatinine Ratio 22.6 H Glucose 241 H POC Glucose 275 H 233 H Calcium 8.5 L Phosphorus 4.7 Albumin 3.3 L Urine Color Urine Appearance Urine pH Ur Specific [place] Urine Protein Urine Glucose (UA) Urine Ketones Urine Blood Urine Nitrite Urine Bilirubin Urine Urobilinogen Ur Leukocyte Esterase Urine WBC (Auto) Urine RBC (Auto) U Hyaline Cast (Auto) U Epithel Cells (Auto) Urine Bacteria (Auto) Calcium Oxalate Crystal Medications Administered Medication List Acetaminophen (Acetaminophen 325 Mg Tab) 650 mg PO Q4H PRN PRN Reason: Pain or Fever Stop: 10/28/23 17:58 Last Admin: 09/30/23 08:17 Dose: 650 mg Documented By: JOHANNA [place]irin (Aspirin 81 Mg Ectab) [facility] [place]: 10/29/23 08:59 Last Admin: 10/04/23 08:38 Dose: 81 mg Documented By: Admin: 10/03/23 08:55 Dose: 81 mg Documented By: Admin: 10/02/23 13:49 Dose: 81 mg Documented By: Admin: 10/01/23 08:08 Dose: 81 mg Documented By: Admin: 09/30/23 08:09 Dose: 81 mg Documented By: Admin: 09/29/23 08:57 Dose: 81 mg Documented By: MAIDA Atorvastatin Calcium (Atorvastatin 40 Mg Tab) 80 mg PO QA AR Stop: 10/29/23 08:59 Last Admin: 10/04/23 08:38 Dose: 80 mg Documented By: Admin: 10/03/23 08:55 Dose: 80 mg Documented By: Admin: 10/02/23 13:49 Dose: 80 mg Documented By: Admin: 10/01/23 08:08 Dose: 80 mg Documented By: Admin: 09/30/23 08:08 Dose: 80 mg Documented By: Admin: 09/29/23 08:57 Dose: 80 mg Documented By: MAIDA Bumetanide (Bumetanide 1 Mg Tab) 1 mg PO BID17 [facility] Stop: 10/31/23 08:59 Last Admin: 10/03/23 17:50 Dose: 1 mg Documented By: Admin: 10/03/23 08:56 Dose: 1 mg Documented By: Admin: 10/02/23 17:48 Dose: 1 mg Documented By: Admin: 10/02/23 13:49 Dose: 1 mg Documented By: Admin: 10/01/23 17:21 Dose: 1 mg Documented By: Admin: 10/01/23 08:07 Dose: 1 mg Documented By: KIKI Calcitriol (Calcitriol 0.25 Mcg Capsule) 1 [facility] [place] [place]: 10/29/23 08:59 Last Admin: 10/04/23 08:37 Dose: 1 mcg Documented By: Admin: 10/03/23 08:56 Dose: 1 mcg Documented By: Admin: 10/02/23 13:49 Dose: 1 mcg Documented By: Admin: 10/01/23 08:08 Dose: 1 mcg Documented By: Admin: 09/30/23 08:10 Dose: 1 mcg Documented By: Admin: 09/29/23 08:57 Dose: 1 mcg Documented By: MAIDA Cyanocobalamin (Cyanocobalamin (B-12) 500 Mcg Tablet) 1,000 mcg PO QAM AR Stop: 10/29/23 08:59 Last Admin: 10/04/23 08:39 Dose: 1,000 mcg Documented By: Admin: 10/03/23 08:56 Dose: 1,000 mcg Documented By: Admin: 10/02/23 13:49 Dose: 1,000 mcg Documented By: Admin: 10/01/23 08:08 Dose: 1,000 mcg Documented By: Admin: 09/30/23 08:09 Dose: 1,000 mcg Documented By: Admin: 09/29/23 08:57 Dose: 1,000 mcg Documented By: MAIDA Docusate Sodium (Docusate Sodium 100 Mg Cap) 100 mg PO BID AR Stop: 10/28/23 20:59 Last Admin: 10/04/23 08:42 Dose: 100 mg Documented By: Admin: 10/03/23 21:13 Dose: Not Given Documented By: Admin: 10/03/23 09:08 Dose: Not Given Documented By: Admin: 10/02/23 20:26 Dose: Not Given Documented By: Admin: 10/02/23 14:03 Dose: 100 mg Documented By: Admin: 10/01/23 21:26 Dose: Not Given Documented By: Admin: 10/01/23 08:11 Dose: 100 mg Documented By: Admin: 09/30/23 21:24 Dose: Not Given Documented By: Admin: 09/30/23 08:11 Dose: 100 mg Documented By: Admin: 09/29/23 19:55 Dose: Not Given Documented By: Admin: 09/29/23 09:09 Dose: Not Given Documented By: Admin: 09/28/23 21:01 Dose: 100 mg Documented By: KIMBERLY Heparin Sodium (Porcine) (Heparin Sod 5,000 Unit/0.5 Ml Vial) 5,000 units SQ Q12 AR Stop: 10/28/23 20:59 Last Admin: 10/04/23 08:38 Dose: 5,000 units Documented By: Admin: 10/03/23 21:13 Dose: 5,000 units Documented By: Admin: 10/03/23 08:59 Dose: 5,000 units Documented By: Admin: 10/02/23 20:28 Dose: 5,000 units Documented By: Admin: 10/02/23 13:50 Dose: 5,000 units Documented By: Admin: 10/01/23 21:30 Dose: 5,000 units Documented By: Admin: 10/01/23 08:09 Dose: 5,000 units Documented By: Admin: 09/30/23 21:22 Dose: 5,000 units Documented By: Admin: 09/30/23 08:10 Dose: 5,000 units Documented By: Admin: 09/29/23 20:36 Dose: 5,000 units Documented By: Admin: 09/29/23 12:26 Dose: 5,000 units Documented By: Admin: 09/28/23 21:07 Dose: 5,000 units Documented By: EDUARDD Hydralazine HCl (Hydralazine Hcl 25 Mg Tab) 75 mg PO TID AR Stop: 10/28/23 20:59 Last Admin: 09/30/23 15:56 Dose: 75 mg Documented By: Admin: 09/30/23 08:08 Dose: 75 mg Documented By: Admin: 09/29/23 20:35 Dose: 75 mg Documented By: Admin: 09/29/23 15:04 Dose: 75 mg Documented By: Admin: 09/29/23 09:57 Dose: 75 mg Documented By: Admin: 09/28/23 21:02 Dose: 75 mg Documented By: LCD Insulin Aspart (Insulin Aspart Per Unit Charge) 0 units SC ACHS AR Stop: 10/30/23 07:29 Last Admin: 10/04/23 08:36 Dose: 3 units Documented By: JOHANNA Co-signed By: VENTURA Admin: 10/03/23 21:11 Dose: 3 units Documented By: SAI Co-signed By: TIFFANY Admin: 10/03/23 17:48 Dose: 4 units Documented By: GABRIELLE Co-signed By: GRETCHEN Admin: 10/03/23 12:20 Dose: 8 units Documented By: YOLI Co-signed By: LEONID Admin: 10/03/23 09:00 Dose: 3 units Documented By: YOLI Co-signed By: ALFONSO Admin: 10/02/23 20:33 Dose: 1 units Documented By: SAI Co-signed By: BROOKLYN Admin: 10/02/23 17:48 Dose: 1 units Documented By: RAVEN Co-signed By: MARCIA Admin: 10/02/23 14:42 Dose: Not Given Documented By: Admin: 10/02/23 11:42 Dose: Not Given Documented By: Admin: 10/01/23 21:27 Dose: Not Given Documented By: Admin: 10/01/23 17:21 Dose: Not Given Documented By: Admin: 10/01/23 13:07 Dose: 3 units Documented By: ANAIS Co-signed By: MICHAEL Admin: 10/01/23 08:40 Dose: Not Given Documented By: Admin: 09/30/23 20:41 Dose: Not Given Documented By: Admin: 09/30/23 17:48 Dose: Not Given Documented By: Admin: 09/30/23 15:59 Dose: 1 units Documented By: JOHANNA Co-signed By: VENTURA Admin: 09/30/23 08:18 Dose: 1 units Documented By: JOHANNA Co-signed By: VENTURA Insulin Human NPH (Insulin Human Nph) 20 units SQ BIDM [facility] Stop: 10/30/23 07:59 Last Admin: 10/01/23 08:40 Dose: 20 units Documented By: ANAIS Co-signed By: RON Admin: 09/30/23 16:01 Dose: 20 units Documented By: JOHANNA Co-signed By: VENTURA Admin: 09/30/23 08:11 Dose: 20 units Documented By: JOHANNA Co-signed By: VENTURA Isosorbide Mononitrate (Isosorbide [place] Extended Rel 30 Mg Tabcr) 30 mg PO QAM [facility] Stop: 10/29/23 08:59 Last Admin: 10/04/23 08:39 Dose: 30 mg Documented By: Admin: 10/03/23 08:55 Dose: 30 mg Documented By: Admin: 10/02/23 13:49 Dose: 30 mg Documented By: Admin: 10/01/23 08:08 Dose: 30 mg Documented By: Admin: 09/30/23 08:09 Dose: 30 mg Documented By: Admin: 09/29/23 08:57 Dose: 30 mg Documented By: MAIDA Latanoprost (Latanoprost 0.005% Op Soln 2.5 Ml Btl) 1 drops OPB HS [facility] Stop: 10/28/23 20:59 Last Admin: 10/03/23 21:14 Dose: 1 drops Documented By: Admin: 10/02/23 20:29 Dose: 1 drops Documented By: Admin: 10/01/23 21:30 Dose: 1 drops Documented By: Admin: 09/30/23 21:23 Dose: 1 drops Documented By: Admin: 09/29/23 23:00 Dose: 1 drops Documented By: Admin: 09/28/23 21:03 Dose: 1 drops Documented By: KIMBERLY Lidocaine (Lidocaine 4% Cream 15 Gm Tube) 1 appln EXT DAILY PRN PRN Reason: Pain Stop: 10/29/23 16:21 Last Admin: 09/30/23 09:15 Dose: 1 appln Documented By: GIBSON Miscellaneous (Carbohydrates For Hypoglycemia ) 15 - 30 gm PO UD PRN PRN Reason: Hypoglycemia Protocol Stop: 10/28/23 18:02 Last Admin: 10/02/23 06:54 Dose: 15 gm Documented By: Admin: 10/01/23 06:49 Dose: 30 gm Documented By: MAIDA(2) Ondansetron HCl (Ondansetron 4 Mg Od Tab) 4 mg PO Q8H PRN PRN Reason: nausea and vomiting Stop: 10/28/23 20:17 Last Admin: 09/29/23 21:25 Dose: 4 mg Documented By: JEREL Polyethylene Glycol (Polyethylene (Miralax) 17 Gm Pack) 17 gm PO BID AR Stop: 10/28/23 20:59 Last Admin: 10/04/23 08:40 Dose: Not Given Documented By: Admin: 10/03/23 21:14 Dose: Not Given Documented By: Admin: 10/03/23 09:13 Dose: 17 gm Documented By: Admin: 10/02/23 20:27 Dose: Not Given Documented By: Admin: 10/02/23 13:57 Dose: 17 gm Documented By: Admin: 10/01/23 21:28 Dose: Not Given Documented By: Admin: 10/01/23 08:11 Dose: 17 gm Documented By: Admin: 09/30/23 21:23 Dose: Not Given Documented By: Admin: 09/30/23 08:17 Dose: 17 gm Documented By: Admin: 09/29/23 20:25 Dose: Not Given Documented By: Admin: 09/29/23 09:08 Dose: 17 gm Documented By: Admin: 09/28/23 21:04 Dose: 17 gm Documented By: KIMBERLY Ropinirole HCl (Ropinirole Hcl 1 Mg Tablet) 1 mg PO 0800,1200 AR Stop: 10/29/23 07:59 Last Admin: 10/04/23 08:37 Dose: 1 mg Documented By: Admin: 10/03/23 12:21 Dose: 1 mg Documented By: Admin: 10/03/23 08:58 Dose: 1 mg Documented By: Admin: 10/02/23 14:42 Dose: Not Given Documented By: Admin: 10/02/23 13:50 Dose: 1 mg Documented By: Admin: 10/01/23 14:53 Dose: 1 mg Documented By: Admin: 10/01/23 08:07 Dose: 1 mg Documented By: Admin: 09/30/23 15:57 Dose: 1 mg Documented By: Admin: 09/30/23 08:10 Dose: 1 mg Documented By: Admin: 09/29/23 13:01 Dose: 1 mg Documented By: Admin: 09/29/23 08:56 Dose: 1 mg Documented By: MAIDA Ropinirole HCl (Ropinirole Hcl 1 Mg Tablet) 3 mg PO HS AR Stop: 10/28/23 20:59 Last Admin: 10/03/23 21:12 Dose: 3 mg Documented By: Admin: 10/02/23 20:29 Dose: 3 mg Documented By: Admin: 10/01/23 21:29 Dose: 3 mg Documented By: Admin: 09/30/23 21:22 Dose: 3 mg Documented By: Admin: 09/29/23 20:36 Dose: 3 mg Documented By: Admin: 09/28/23 21:04 Dose: 3 mg Documented By: KIMBERLY Sertraline HCl (Sertraline Hcl 50 Mg Tablet) 50 mg PO DAILY AR Stop: 10/29/23 08:59 Last Admin: 10/04/23 08:37 Dose: 50 mg Documented By: Admin: 10/03/23 08:56 Dose: 50 mg Documented By: Admin: 10/02/23 13:49 Dose: 50 mg Documented By: Admin: 10/01/23 08:07 Dose: 50 mg Documented By: Admin: 09/30/23 08:09 Dose: 50 mg Documented By: Admin: 09/29/23 08:57 Dose: 50 mg Documented By: MAIDA Timolol Maleate (Timolol Gfs 0.5% Oph Soln 74 Drops/5 Ml Btl) 1 drops OPB BID AR Stop: 10/28/23 20:59 Last Admin: 10/04/23 08:37 Dose: 1 drops Documented By: Admin: 10/03/23 21:13 Dose: 1 drops Documented By: Admin: 10/03/23 09:00 Dose: 1 drops Documented By: Admin: 10/02/23 20:29 Dose: 1 drops Documented By: Admin: 10/02/23 13:50 Dose: 1 drops Documented By: Admin: 10/01/23 21:30 Dose: 1 drops Documented By: Admin: 10/01/23 08:09 Dose: 1 drops Documented By: Admin: 09/30/23 21:23 Dose: 1 drops Documented By: Admin: 09/30/23 08:12 Dose: 1 drops Documented By: Admin: 09/29/23 20:36 Dose: 1 drops Documented By: Admin: 09/29/23 09:57 Dose: 1 drops Documented By: Admin: 09/28/23 21:06 Dose: 1 drops Documented By: KIMBERLY Tramadol HCl (Tramadol Hcl 50 Mg Tablet) 50 mg PO DAILY AR Stop: 10/29/23 08:59 Last Admin: 10/04/23 08:42 Dose: 50 mg Documented By: Admin: 10/03/23 08:59 Dose: 50 mg Documented By: Admin: 10/02/23 14:02 Dose: 50 mg Documented By: Admin: 10/01/23 08:07 Dose: 50 mg Documented By: Admin: 09/30/23 08:16 Dose: 50 mg Documented By: Admin: 09/29/23 09:09 Dose: 50 mg Documented By: MAIDA Trazodone HCl (Trazodone Hcl 100 Mg Tab) 100 mg PO HS AR Stop: 10/28/23 20:59 Last Admin: 10/03/23 21:12 Dose: 100 mg Documented By: Admin: 10/02/23 20:29 Dose: 100 mg Documented By: Admin: 10/01/23 21:29 Dose: 100 mg Documented By: Admin: 09/30/23 21:22 Dose: 100 mg Documented By: Admin: 09/29/23 20:36 Dose: 100 mg Documented By: Admin: 09/28/23 21:05 Dose: 100 mg Documented By: KIMBERLY Vitamin D (Cholecalciferol 25 Mcg (1000 Units) Tab) 50 mcg PO QAM AR Stop: 10/29/23 08:59 Last Admin: 10/04/23 08:38 Dose: 50 mcg Documented By: Admin: 10/03/23 08:57 Dose: 50 mcg Documented By: Admin: 10/02/23 13:48 Dose: 50 mcg Documented By: Admin: 10/01/23 08:08 Dose: 50 mcg Documented By: Admin: 09/30/23 08:08 Dose: 50 mcg Documented By: Admin: 09/29/23 08:57 Dose: 50 mcg Documented By: MAIDA Discontinued Medications Fentanyl Citrate (Fentanyl Citrate Pf 100 Mcg/2 Ml Vial) Confirm Administered Dose 100 mcg .ROUTE .STK-MED ONE Stop: 09/30/23 10:48 Last Admin: 09/30/23 11:10 Dose: Not Given Documented By: VENTURA Fentanyl Citrate (Fentanyl Citrate Pf 100 Mcg/2 Ml Vial) 50 mcg IV NOW STA Stop: 09/30/23 11:00 Last Admin: 09/30/23 11:10 Dose: 50 mcg Documented By: VENTURA Heparin Sodium (Porcine) (Heparin Sod (Porcine) 1000 Unit/Ml) 1,000 units IV ONE ONE Stop: 10/01/23 09:39 Last Admin: 10/01/23 10:21 Dose: Not Given Documented By: BRIANNA Heparin Sodium (Porcine) (Heparin Sod (Porcine) 1000 Unit/Ml) 1,000 units IV Q1H AR Stop: 10/01/23 09:46 Last Admin: 10/01/23 10:21 Dose: Not Given Documented By: BRIANNA Calcium Gluconate () 1,000 mg in 60 mls @ 240 mls/hr IV NOW STA Stop: 09/28/23 16:46 Last Infusion: 09/28/23 18:49 Dose: Infused Documented By: CC(2) Admin: 09/28/23 17:45 Dose: 240 mls/hr Documented By: DEEPTHI Bumetanide 2 mg/ Syringe 8 mls @ 4 mls/min IV ONE ONE Stop: 09/28/23 17:15 Last Admin: 09/28/23 17:59 Dose: 4 mls/min Documented By: DEEPTHI Bumetanide 2 mg/ Syringe 8 mls @ 4 mls/min IV BID@0900,1700 AR Stop: 10/29/23 08:59 Last Admin: 09/30/23 16:00 Dose: 4 mls/min Documented By: Admin: 09/30/23 08:09 Dose: 4 mls/min Documented By: Admin: 09/29/23 17:29 Dose: 4 mls/min Documented By: Admin: 09/29/23 08:57 Dose: 4 mls/min Documented By: MAIDA Calcium Gluconate () 1,000 mg in 60 mls @ 240 mls/hr IV NOW STA Stop: 09/28/23 22:29 Last Infusion: 09/28/23 22:54 Dose: Infused Documented By: Admin: 09/28/23 22:37 Dose: 240 mls/hr Documented By: KIMBERLY Bumetanide 2 mg/ Syringe 8 mls @ 4 mls/min IV ONE ONE Stop: 10/02/23 00:46 Last Admin: 10/02/23 00:47 Dose: 4 mls/min Documented By: SAI Insulin Aspart (Insulin Aspart Per Unit Charge) 0 units SC ACHS AR Stop: 10/28/23 20:59 Last Admin: 09/29/23 22:28 Dose: Not Given Documented By: Admin: 09/29/23 17:39 Dose: Not Given Documented By: Admin: 09/29/23 12:19 Dose: Not Given Documented By: Admin: 09/29/23 08:59 Dose: Not Given Documented By: Admin: 09/28/23 20:51 Dose: Not Given Documented By: KIMBERLY Insulin Human NPH (Insulin Human Nph) 20 units SQ BID AR Stop: 10/28/23 20:59 Last Admin: 09/29/23 09:30 Dose: Not Given Documented By: Admin: 09/28/23 20:52 Dose: Not Given Documented By: KIMBERLY Insulin Human NPH (Insulin Human Nph) 20 units SQ BID AR Stop: 10/29/23 20:59 Last Admin: 09/29/23 22:59 Dose: 20 units Documented By: JEREL Co-signed By: AMJoselito Metoprolol Succinate (Metoprolol Succ 25mg Ext Rel Tab) 25 mg PO QAM AR Stop: 09/29/23 12:15 Last Admin: 09/29/23 09:06 Dose: Not Given Documented By: MAIDA Pantoprazole Sodium (Pantoprazole 40 Mg Tab) 40 mg PO ONE ONE Stop: 09/29/23 21:34 Last Admin: 09/29/23 23:00 Dose: 40 mg Documented By: JEREL Sodium Zirconium Cyclosilicate (Sodium Zirconium Cyclosilicate 10 Gm Packet) 10 gm PO NOW STA Stop: 09/28/23 22:13 Last Admin: 09/28/23 22:38 Dose: 10 gm Documented By: KIMBERLY PG Care Time/CCT Total # of Minutes Spent Total Time Spent with Patient: Total time spent is greater than 50% in coordination of care (as documented) at patient's floor/unit and/or counseling patient:35 [place] [address] SUB INP/OBS CARE 3/50MIN Patient Type Established History Detailed Exam Detailed Medical Decision Making High Complexity Diagnoses Acute on chronic combined systolic and diastolic CHF (congestive heart failure) I50.43 Elevated troponin I level R79.89 Cardiomyopathy, unspecified type I42.9 Cardiomyopathy type: unspecified CAD, multiple vessel I25.10 Time Spent (min) 56 (3) Cardiomyopathy Cardiomyopathy type: unspecified Qualified Code(s): I42.9 - Cardiomyopathy, unspecified
--- NOTE | 2023-10-04 12:33 | Hospitalist Progress Note ---
Date of Service October 04, 2023 Assessment & Plan (1) Acute kidney injury superimposed on chronic kidney disease: Plan: He has now progressed to end-stage renal disease. A temporary hemodialysis catheter was placed on September 29 because his AV fistula could not be cannulated. Hemodialysis nurse will try again today, October 03, but if this continues to be a problem then vascular surgery will be consulted for tunneled dialysis catheter placement. Appreciate nephrology consultation and recommendations. (2) Heart failure with mildly reduced ejection fraction (HFmrEF): Plan: Acute decompensated systolic congestive heart failure/congestive heart failure with reduced ejection fraction present on admission. Much improved with dialysis. Will repeat portable chest x-ray again today, October 03. Nephrology did recommend starting po bumex 10/02/23 (3) Type 2 diabetes mellitus: Plan: ADA diet. Sliding scale coverage. Basal insulin therapy (4) Elevated troponin I level: Plan: Chronic. No evidence of acute coronary syndrome (5) CAD, multiple vessel: Plan: Stable. Continue current medical management (6) Hyperkalemia: Plan: Potassium 5.6 on admission. Now down to 4.3. Serial labs Plan To be determined Admission and Anticipated Discharge Date Admission Date: September 28, 2023 Subjective Alert and oriented. No new problems. He is awaiting dialysis today, October 03, at the time of my rounds this morning. If the AV fistula cannot be cannulated by the HD nurse, then vascular surgery will be consulted for tunneled dialysis catheter placement. A temporary hemodialysis catheter was placed on September 29. Potassium has improved to 4.3. Cardiology consultation noted. Troponin elevation appears to be chronic with no evidence of acute coronary syndrome at this time. Portable chest x-ray will be repeated today, October 03 Review of Systems 2 Review of Systems: Constitutional-no fever or chills ENT-no blurred vision, no double vision, no epistaxis, no sore throat Respiratory-no cough, no wheezing, no shortness of breath at rest Cardiac-no palpitations, no chest pain, no syncope GI-no nausea, vomiting, diarrhea, melena, hematochezia -no urinary retention, no urinary incontinence, no dysuria, no hematuria Musculoskeletal-no joint pain, no muscle tenderness. Left BKA status Skin-no bruising, no rashes, no pruritus Neuro-no isolated weakness, no paresthesia Psych-no depression, no anxiety Physical Exam 2 Physical Exam: General-alert and oriented x3, no fever, no chills HEENT-head atraumatic and normocephalic, pupils equal and reactive to light, extraocular muscles intact Neck-no lymphadenopathy or thyromegaly, trachea midline Chest-diminished breath sounds bilaterally. No wheezing. No rhonchi Cardiac-regular rate and rhythm, normal S1 and S2 Abdomen-normal bowel sounds, no hepatosplenomegaly Extremities-no cyanosis, clubbing, or edema. Left BKA status Neuro-cranial nerves II through XII intact, motor and sensory function within normal limits, strength symmetrical, no focal deficits Psych-normal affect, normal mood Results & Data Results & Data Vital Signs (Past 12 Hours) Vital Signs Temp Pulse Pulse Resp BP Pulse Ox O2 Del Method 10/04/23 11:09 36.2 C L 56 L 19 165/70 H 100 Nasal Cannula 10/04/23 10:49 Nasal Cannula 10/04/23 07:22 62 10/04/23 07:15 36.4 C L 63 18 163/78 H 96 Nasal Cannula 10/04/23 02:51 36.5 C 55 L 18 152/72 H 96 Room Air O2 Flow Rate 10/04/23 11:09 10/04/23 10:49 10/04/23 07:22 10/04/23 07:15 10/04/23 02:51 3 Laboratory Results 10/04/23 05:19 10/04/23 05:19 PG Care Time/CCT Total # of Minutes Spent Total Time Spent with Patient: Total time spent is greater than 50% in coordination of care (as documented) at patient's floor/unit and/or counseling patient: Coding Level of Care Code 90059 SUB INP/OBS CARE 3/50MIN Diagnoses Acute kidney injury superimposed on chronic kidney disease N17.9; N18.9 Heart failure with mildly reduced ejection fraction (HFmrEF) I50.22 Type 2 diabetes mellitus E11.9 Elevated troponin I level R79.89 CAD, multiple vessel I25.10 Hyperkalemia E87.5
--- NOTE | 2023-10-04 13:34 | XRay Report ---
SINGLE VIEW CHEST CLINICAL HISTORY: Congestive heart failure. FINDINGS: An AP, portable, upright chest radiograph is compared to study dated 10/02/2023. A right int ernal jugular central catheter is unchanged in position. The patient is status post midline sternotom y. The heart is enlarged. There is pulmonary vascular congestion with interstitial edema. There are l ayering pleural effusions with dependent consolidation. No pneumothorax is seen. The skeletal structu res are osteopenic. The bony thorax is grossly intact. IMPRESSION: 1. Cardiomegaly with evidence of congestive failure and pulmonary edema. This is similar to the 2023 examination. 2. Layering pleural effusions with dependent consolidation. ACT 112: Negative or not required by law. Electronically signed by: Vishal Ibanez M.D. 10/04/2023 1:33 PM
[2023-10-05 06:31] LABS: Basophils # (auto) 0.04 K/uL (0.00-0.20); Basophils % (auto) 0.8 %; Eosinophils # (auto) 0.23 K/uL (0.00-0.50); Eosinophils % (auto) 4.4 %; Hematocrit (blood only) 32.4 % (42.0-52.0); Hemoglobin 10.6 g/dl (14.0-18.0); Immature Granulocytes # (auto) 0.03 K/uL (0.01-0.20); Immature Granulocytes % (auto) 0.6 %; Lymphocytes # (auto) 0.42 K/uL (1.20-3.40); Lymphocytes % (auto) 8.1 %; Mean Corpuscular Hemoglobin 31.4 pg (25.0-34.0); Mean Corpuscular Hgb Conc 32.7 g/dL (32.0-36.0); Mean Corpuscular Volume 95.9 fL (80.0-100.0); Mean Platelet Volume 13.8 fL (9.4-12.4); Monocytes # (auto) 0.58 K/uL (0.11-0.59); Monocytes % (auto) 11.2 %; Neutrophils % (auto) 74.9 %; Platelet Count 82 K/uL (130-400); RDW Coefficient of Variation 14.7 % (11.5-14.5); RDW Standard Deviation 52.5 fL (36.4-46.3); Red Blood Count 3.38 M/uL (4.70-6.10)
[2023-10-05 06:35] LABS: BUN Creatinine Ratio 21.7 (10-20); Calcium 8.4 mg/dl (8.6-10.3); Creatinine Clr Calc Pharmacy 29.5 ml/min; Est GFR (African American) 26.4 ml/min; Est GFR (Non-African American) 22.8 ml/min; Potassium 3.9 mmol/L (3.5-5.1)
--- NOTE | 2023-10-05 09:06 | Nephrology Progress Note ---
Date of Service October 05, 2023 Assessment & Plan (1) ESRD (end stage renal disease): Plan: * 1st HD treatment 09/29/21 * AVF infiltrated during 1st treatment and patient required temporary IJ HD catheter insertion * Patient was unable to tolerate use of his AVF for HD 10/04/23. Dialysis 10/04/23 was performed using his temporary IJ HD catheter. 2.5 L UF obtained * POC discussed w/ Vascular Surgery tomorrow. They plan to change catheter to IJ TCC and allow AVF site of infiltration to fully heal * Plan HD 1st shift tomorrow am followed by IJ TCC placement. HD RN advised to coordinate schedule * Case management is assisting with discharge disposition as patient is in the process of moving from [place] to [place] to be closer to family (2) Acute on chronic combined systolic and diastolic CHF (congestive heart failure): Plan: * Continue Bumex to encourage urine output (400 cc last 24 hrs) * RAASi may be revisited once patient is established on HD Admission and Anticipated Discharge Date Admission Date: September 28, 2023 Subjective Mr. Em was evaluated in his hospital room this morning. He was breathing comfortably on O2 at 2 L/min NC. He voiced no new medical concerns. Review of Systems Constitutional: no fever Eyes: no problem reported Ear, Nose, Mouth, Throat: no problem reported Respiratory: no cough and no dyspnea Cardiovascular: no chest pain Gastrointestinal: no abdominal pain, no nausea, no vomiting and no diarrhea/loose stools Integumentary: no rash Neurologic: no problem reported Physical Exam Constitutional: not in distress Eyes: PERRL, conjunctivae normal, anicteric sclerae ENMT: external ear and nose normal, oropharynx normal Neck: trachea midline, no thyromegaly Respiratory: normal respiratory effort, lungs clear to auscultation Cardiovascular: Rate/Rhythm: + bradycardic Heart Sounds: normal S1 and normal S2 L RC AVF + bruit Gastrointestinal (Abdomen): normal bowel sounds, soft, nontender, no hepatosplenomegaly Skin: no rashes, warm and dry Neurologic: Speech / Cognition: normal speech and normal cognition Results & Data Vital Signs (Past 12 Hours) Vital Signs Temp Pulse Pulse Pulse Resp BP Pulse Ox 10/05/23 07:49 36.5 C 59 L 20 166/74 H 95 10/05/23 07:21 61 10/05/23 02:27 36.6 C 66 18 150/68 H 95 10/04/23 22:14 36.5 C 68 18 160/75 H 92 O2 Del Method O2 Flow Rate 10/05/23 07:49 Nasal Cannula 2 10/05/23 07:21 10/05/23 02:27 Nasal Cannula 2 10/04/23 22:14 Nasal Cannula 2 PG Care Time/CCT Total # of Minutes Spent Total Time Spent with Patient: Total time spent is greater than 50% in coordination of care (as documented) at patient's floor/unit and/or counseling patient: Coding Level of Care Code 07376 SUB INP/OBS CARE 3/50MIN Diagnoses ESRD (end stage renal disease) N18.6 Acute on chronic combined systolic and diastolic CHF (congestive heart failure) I50.43
--- NOTE | 2023-10-05 10:16 | Consultation ---
Date of Consultation October 05, 2023 Assessment & Plan (1) ESRD (end stage renal disease): Pt with ESRD, now requiring HD access. LUE radiocephalic AVF placed 3 yrs ago in preparation for this, however, inpt HD unit having difficulty accessing it. Infiltration causing edema of arm, which will cause more difficulty accessing it. Recommend resting the AVF and placing a permcath in OR tomorrow for access until AVF can be further eval with possible fistulagram in future. Plan discussed with pt as well as Dr Mills. Pt agreeable to permcath insertion. Patient was seen, examined, and chart reviewed. Agree with exam and treatment plan of the Vascular PA. History of Present Illness Reason for Consultation: HD access Attending Physician: Gregorio Avalos MD History of Present Illness 73 yo m with hx of CKD, HTN, CAD, DMII, CHF, anemia, remote hx of CVA, JEREMIE, dyslipidemia, DDD of spine, LLE BKA, admitted with worsening renal fxn, seen in consultation today for eval of L wrist AVF and possible permcath insertion. Pt known to Dr Howard for L radiocephalic AVF creation in 01/2021, but has not required access for HD yet. Inpt HD unit did attempt to access his AVF, but was unsuccessful and infiltrated it. A temporary R IJ HD catheter was placed for access. Pt admits generalized edema, fatigue/malaise. States has swelling of L arm since the attempted access, but not much prior to that. Denies HATCH, fever, chest pain, SOB, abd pain, N/V, rest pain, new ulcerations, other complaints. LUE AVF US demonstrates patent AVF without any focal stenosis. Allergies Allergy/AdvReac Type Severity Reaction Status Date / Time ofloxacin [From Floxin] Allergy Intermediate itching Verified 09/28/23 16:52 Quinolones Allergy Intermediate Itchiness Verified 09/28/23 16:52 sulfamethoxazole Allergy Intermediate Rash Verified 09/28/23 16:52 trimethoprim Allergy Intermediate Rash Verified 09/28/23 16:52 Home Medications Medication Instructions Recorded Confirmed Type latanoprost 0.005 % eye drops 1 drp OPB HS 12/27/17 09/28/23 History (Xalatan) cholecalciferol (vitamin D3) 50 2,000 units PO QAM 11/10/19 09/28/23 History mcg (2,000 unit) capsule (Vitamin D3) brimonidine 0.2 % eye drops 1 drp OPB BID 12/07/20 09/28/23 History dorzolamide 2 % eye drops 1 drp OPB BID 12/07/20 09/28/23 History timolol maleate 0.5 % eye gel 1 drp OPB BID 12/07/20 09/28/23 History forming solution ascorbic acid (vitamin C) 500 mg 500 mg PO QAM 02/19/21 09/28/23 History capsule insulin regular human 100 unit/mL 1 sliding scale dose subcut 04/19/23 09/28/23 Rx injection solution (Humulin R USEASDIRECTD #10 mL Regular U-100 Insulin) cyanocobalamin (vitamin B-12) 500 1,000 mcg (2 x 500 mcg) PO QAM #0 05/04/23 09/28/23 Rx mcg tablet tabs ondansetron 4 mg disintegrating 4 mg PO Q8H PRN nausea and 08/23/23 09/28/23 Rx tablet vomiting #30 tabs docusate sodium 100 mg capsule 100 mg PO BID #0 caps 09/03/23 09/28/23 Rx polyethylene glycol 3350 17 gram 17 g PO BID #0 ea 09/03/23 09/28/23 Rx oral powder packet (Miralax) insulin NPH isoph U-100 human 100 20 unit (0.2 mL) subcut BID #10 mL 09/08/23 09/28/23 Rx unit/mL subcutaneous suspension (Novolin N NPH U-100 Insulin isophane) tramadol 50 mg tablet 50 mg PO DAILY #30 tabs 09/08/23 09/28/23 Rx aspirin 81 mg tablet,delayed 81 mg PO QAM #90 tabs 09/17/23 09/28/23 Rx release atorvastatin 80 mg tablet (Lipitor) 80 mg PO QAM #90 tabs 09/17/23 09/28/23 Rx calcitriol 0.5 mcg capsule 1 mcg (2 x 0.5 mcg) PO QAM #60 caps 09/17/23 09/28/23 Rx hydralazine 25 mg tablet 75 mg (3 x 25 mg) PO TID 90 days 09/17/23 09/28/23 Rx #810 tabs isosorbide mononitrate 30 mg 30 mg PO QAM 90 days #90 tabs 09/17/23 09/28/23 Rx tablet,extended release 24 hr metoprolol succinate 25 mg 25 mg PO QAM #90 tabs 09/17/23 09/28/23 Rx tablet,extended release 24 hr sertraline 50 mg tablet 50 mg PO DAILY #90 tabs 09/17/23 09/28/23 Rx trazodone 100 mg tablet 100 mg PO HS #30 tabs 09/17/23 09/28/23 Rx ropinirole 1 mg tablet See Rx Instructions .Route .COMPLEX 09/23/23 09/28/23 History bumetanide 2 mg tablet 2 mg PO BID #60 tabs 09/27/23 09/28/23 Rx Patient History Medical History Chronic combined systolic and diastolic heart failure Depression Chronic kidney disease, stage 4 (severe) Diabetic peripheral 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 Restless leg syndrome Type 2 diabetes mellitus Ventricular bigeminy 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, with long-term current use of insulin (HFpEF) heart failure with preserved ejection fraction Pressure ulcer of BKA stump, stage 3 RESOLVED Influenza A virus subtype H1 2009 pandemic strain present Slow to wake up after anesthesia Wound of lower extremity RLE wound "improved" per 01/27/21 wound clinic visit ([facility]); surgeon aware of patient's wound hx per 01/2021 office visit note; "only has a little scab there now, keeps it covered to protect it." GERD (gastroesophageal reflux disease) History of TIA (transient ischemic attack) ~2009>over his left eye, no residual symptoms Surgical History S/P arteriovenous (AV) fistula creation left>no currently having dialysis History of esophagogastroduodenoscopy (EGD) History of colonoscopy S/P lumbar laminectomy S/P foot surgery S/P eye surgery B/L x3 (for glaucoma) S/P CABG x 4 (2011) CABG x4 (2011), [facility]; f/u PCP History of lumbar discectomy History of tonsillectomy Family History Father , age 78 with prostate cancer Colorectal cancer Cardiovascular disease Diabetes Prostate cancer Grandmother (Maternal) Diabetes Mother , age 54 of throat cancer Throat cancer Denies family history of Ovarian cancer Myocardial infarction Breast cancer Social History Smoking Status: Never smoker Second Hand Exposure: No; Do You Dip or Chew Tobacco: No; Hx Alcohol Use: No Hx Substance Use: No Preferred Language: Ghanaian Communication Ability: Effective Visual Impairment: No Limitations Hearing Ability: Normal [employer] Required: No Beliefs That Will Affect Care: None marital status: / marital status details: lost August 2021 Current Living Situation: Alone current occupational status: retired current occupation: How many Children do You have: 2 other: Retired age 61-/2. Feels Safe at Home: No Is there a partner from a previous relationship who is making you feel unsafe now?: No Childhood Exposure to Second-Hand Smoke: No Diet: regular caffeine: No during the past year weight has: remained stable Dental Care, Regularly: Yes Physical Activity Frequency: Other Physical Activity Frequency Comment: limited d/t disability Seatbelt Use: always Sunscreen Use: Yes Assistive Devices: Scooter/Electric Scooter, Walker and Wheelchair Review of Systems Review of Systems: All systems reviewed & are unremarkable except as noted in HPI & below Physical Exam Constitutional: WD/WN, vitals as above cooperative and comfortable; not in distress Neck: trachea midline Respiratory: normal respiratory effort Auscultation: + diminished lung sounds and + crackles (basilar) Cardiovascular: Rate/Rhythm: regular rate and regular rhythm Vessels: + abnormal peripheral pulses Extremities: + edema, + vascular access device (R IJ) and + AV fistula (L radiocephalic +thrill/bruit, ecchymosis and local edema) Gastrointestinal (Abdomen): Inspection/Auscultation: abdomen normal to inspection and normal bowel sounds Percussion/Palpation: abdomen soft; abdomen nontender Musculoskeletal: no cyanosis or clubbing, extremities motor strength 5/5 (LLE BKA noted) Skin: no rashes, warm and dry Neurologic: moves all extremities and awake; no focal motor deficits and not confused Psychiatric: A+Ox3, euthymic affect Results & Data Vital Signs (Past 12 Hours) Vital Signs Temp Pulse Pulse Pulse Resp BP Pulse Ox 10/05/23 07:49 36.5 C 59 L 20 166/74 H 95 10/05/23 07:21 61 10/05/23 02:27 36.6 C 66 18 150/68 H 95 10/04/23 22:14 36.5 C 68 18 160/75 H 92 O2 Del Method O2 Flow Rate 10/05/23 07:49 Nasal Cannula 2 10/05/23 07:21 10/05/23 02:27 Nasal Cannula 2 10/04/23 22:14 Nasal Cannula 2
[2023-10-05] MEDS: INSULIN HUMAN NPH SC SCH (10:53)
--- NOTE | 2023-10-05 12:44 | Hospitalist Progress Note ---
Date of Service October 05, 2023 Assessment & Plan (1) Acute kidney injury superimposed on chronic kidney disease: Plan: He has now progressed to end-stage renal disease. A temporary hemodialysis catheter was placed on September 29 because his AV fistula could not be cannulated. He will require permacath placement tomorrow, October 05. Appreciate nephrology and vascular surgery consultations and recommendations. (2) Hyperkalemia: Plan: Potassium 5.6 on admission. Now resolved with dialysis. Serial labs (3) Acute respiratory failure with hypoxia: Plan: Due to underlying CHF. Continue oxygen per nasal cannula to maintain saturation greater than 90%. Wean off as tolerated (4) Heart failure with mildly reduced ejection fraction (HFmrEF): Plan: Acute decompensated systolic congestive heart failure/congestive heart failure with reduced ejection fraction present on admission. Much improved with dialysis. Repeat chest x-ray done October 03 looks better. Will repeat again tomorrow, October 05. Nephrology did recommend starting po bumex 10/02/23 (5) Type 2 diabetes mellitus: Plan: ADA diet. Sliding scale coverage. Basal insulin therapy (6) Elevated troponin I level: Plan: Chronic. No evidence of acute coronary syndrome (7) CAD, multiple vessel: Plan: Stable. Continue current medical management Plan OT and PT both recommend rehab placement. So far, the patient is refusing. Admission and Anticipated Discharge Date Admission Date: September 28, 2023 Subjective Alert and oriented. No new problems. Appreciate vascular surgery consultation. Dialysis permacath will be inserted tomorrow, October 05. OT and PT have recommended rehab placement but so far he has refused. NPH insulin was held on September 29 due to hypoglycemia but will be restarted today, October 04 at a lower dose. He remains on oxygen at 2 L/min. Review of Systems 2 Review of Systems: Constitutional-no fever or chills ENT-no blurred vision, no double vision, no epistaxis, no sore throat Respiratory-no cough, no wheezing, no shortness of breath at rest Cardiac-no palpitations, no chest pain, no syncope GI-no nausea, vomiting, diarrhea, melena, hematochezia -no urinary retention, no urinary incontinence, no dysuria, no hematuria Musculoskeletal-no joint pain, no muscle tenderness. Left BKA status Skin-no bruising, no rashes, no pruritus Neuro-no isolated weakness, no paresthesia Psych-no depression, no anxiety Physical Exam 2 Physical Exam: General-alert and oriented x3, no fever, no chills HEENT-head atraumatic and normocephalic, pupils equal and reactive to light, extraocular muscles intact Neck-no lymphadenopathy or thyromegaly, trachea midline Chest-diminished breath sounds bilaterally. No wheezing. No rhonchi Cardiac-regular rate and rhythm, normal S1 and S2 Abdomen-normal bowel sounds, no hepatosplenomegaly Extremities-no cyanosis, clubbing, or edema. Left BKA status Neuro-cranial nerves II through XII intact, motor and sensory function within normal limits, strength symmetrical, no focal deficits Psych-normal affect, normal mood Results & Data Results & Data Vital Signs (Past 12 Hours) Vital Signs Temp Pulse Pulse Pulse Resp BP Pulse Ox 10/05/23 10:48 36.5 C 57 L 19 165/74 H 97 10/05/23 10:25 10/05/23 07:49 36.5 C 59 L 20 166/74 H 95 10/05/23 07:21 61 10/05/23 02:27 36.6 C 66 18 150/68 H 95 O2 Del Method O2 Flow Rate 10/05/23 10:48 Nasal Cannula 2 10/05/23 10:25 Nasal Cannula 2 10/05/23 07:49 Nasal Cannula 2 10/05/23 07:21 10/05/23 02:27 Nasal Cannula 2 Laboratory Results 10/05/23 05:59 10/05/23 05:59 PG Care Time/CCT Total # of Minutes Spent Total Time Spent with Patient: Total time spent is greater than 50% in coordination of care (as documented) at patient's floor/unit and/or counseling patient: Coding Level of Care Code 56042 SUB INP/OBS CARE 3/50MIN Diagnoses Acute kidney injury superimposed on chronic kidney disease N17.9; N18.9 Hyperkalemia E87.5 Acute respiratory failure with hypoxia J96.01 Heart failure with mildly reduced ejection fraction (HFmrEF) I50.22 Type 2 diabetes mellitus E11.9 Elevated troponin I level R79.89 CAD, multiple vessel I25.10
[2023-10-06 06:49] LABS: Basophils # (auto) 0.02 K/uL (0.00-0.20); Basophils % (auto) 0.3 %; Eosinophils # (auto) 0.32 K/uL (0.00-0.50); Eosinophils % (auto) 5.5 %; Immature Granulocytes # (auto) 0.03 K/uL (0.01-0.20); Immature Granulocytes % (auto) 0.5 %; Lymphocytes # (auto) 0.47 K/uL (1.20-3.40); Lymphocytes % (auto) 8.1 %; Mean Corpuscular Hemoglobin 31.3 pg (25.0-34.0); Mean Corpuscular Hgb Conc 32.4 g/dL (32.0-36.0); Mean Corpuscular Volume 96.6 fL (80.0-100.0); Mean Platelet Volume 13.4 fL (9.4-12.4); Monocytes # (auto) 0.61 K/uL (0.11-0.59); Monocytes % (auto) 10.5 %; Neutrophils # (auto) 4.36 K/uL (1.40-6.50); Neutrophils % (auto) 75.1 %; Platelet Count 93 K/uL (130-400); RDW Coefficient of Variation 14.9 % (11.5-14.5); RDW Standard Deviation 52.9 fL (36.4-46.3); Red Blood Count 3.52 M/uL (4.70-6.10); White Blood Count 5.81 K/ul (4.8-10.8)
[2023-10-06 06:56] LABS: BUN Creatinine Ratio 22.1 (10-20); Calcium 8.7 mg/dl (8.6-10.3); Creatinine Clr Calc Pharmacy 25.2 ml/min; Est GFR (African American) 21.9 ml/min; Est GFR (Non-African American) 18.9 ml/min; Potassium 3.9 mmol/L (3.5-5.1)
[2023-10-06] MEDS ORDERED: SODIUM CHLORIDE 0.9% 1,000 ML IV PRN (07:00)
--- NOTE | 2023-10-06 08:53 | Nephrology Progress Note ---
Date of Service October 06, 2023 Assessment & Plan (1) ESRD (end stage renal disease): Plan: * 1st HD treatment 09/29/21 * AVF infiltrated during 1st treatment and patient required temporary IJ HD catheter insertion * Patient was unable to tolerate use of his AVF for HD 10/04/23. Dialysis 10/04/23 was performed using his temporary IJ HD catheter. 2.5 L UF obtained * Will provide HD today heparin free. Following HD patient will have IJ temporary HD catheter removed and a new IJ TCC placed. Fistulogram will also be performed to assess maturity and depth of venous limb AVF * Case management is assisting with discharge disposition as patient is in the process of moving from [place] to [place] to be closer to family (2) Acute on chronic combined systolic and diastolic CHF (congestive heart failure): Plan: * Continue Bumex to encourage urine output (400 cc last 24 hrs) * RAASi may be revisited once patient is established on HD Admission and Anticipated Discharge Date Admission Date: September 28, 2023 Subjective Mr. Em was evaluated in his hospital room this morning. He was breathing comfortably on O2 at 2 L/min NC. He voiced no new medical concerns. Review of Systems Constitutional: no fever Eyes: no problem reported Ear, Nose, Mouth, Throat: no problem reported Respiratory: no cough and no dyspnea Cardiovascular: no chest pain Gastrointestinal: no abdominal pain, no nausea, no vomiting and no diarrhea/loose stools Integumentary: no rash Neurologic: no problem reported Physical Exam Constitutional: not in distress Eyes: PERRL, conjunctivae normal, anicteric sclerae ENMT: external ear and nose normal, oropharynx normal Neck: trachea midline, no thyromegaly Respiratory: normal respiratory effort, lungs clear to auscultation Cardiovascular: Rate/Rhythm: + bradycardic Heart Sounds: normal S1 and normal S2 Gastrointestinal (Abdomen): normal bowel sounds, soft, nontender, no hepatosplenomegaly Skin: no rashes, warm and dry Neurologic: Speech / Cognition: normal speech and normal cognition Results & Data Vital Signs (Past 12 Hours) Vital Signs Temp Pulse Pulse Resp BP Pulse Ox O2 Del Method 10/06/23 07:13 36.4 C L 57 L 18 166/74 H 97 Nasal Cannula 10/06/23 03:32 36.5 C 56 L 18 152/72 H 98 Nasal Cannula 10/05/23 23:04 36.5 C 52 L 18 157/72 H 96 Nasal Cannula 10/05/23 21:58 55 L O2 Flow Rate 10/06/23 07:13 2 10/06/23 03:32 2 10/05/23 23:04 2 10/05/23 21:58 Laboratory Results Laboratory Results - last 24 hr 10/05/23 10/05/23 10/05/23 11:04 11:18 16:03 WBC RBC Hgb Hct MCV MCH MCHC RDW Std Deviation RDW Coeff of Jose Plt Count MPV Immature Gran % (Auto) Neut % (Auto) Lymph % (Auto) [place] % (Auto) Eos % (Auto) Baso % (Auto) Neut # (Auto) Lymph # (Auto) [place] # (Auto) Eos # (Auto) Baso # (Auto) Immature Gran # (Auto) Sodium Potassium Chloride Carbon Dioxide Anion Gap BUN Creatinine Est Cr Clr Drug Dosing Est GFR ( Amer) Est GFR (Non-Af Amer) BUN/Creatinine Ratio Glucose POC Glucose 308 H* 292 H 150 H Calcium 10/05/23 10/06/23 20:13 06:25 WBC 5.81 RBC 3.52 L Hgb 11.0 L Hct 34.0 L MCV 96.6 MCH 31.3 MCHC 32.4 RDW Std Deviation 52.9 H RDW Coeff of Jose 14.9 H Plt Count 93 L MPV 13.4 H Immature Gran % (Auto) 0.5 Neut % (Auto) 75.1 Lymph % (Auto) 8.1 [place] % (Auto) 10.5 Eos % (Auto) 5.5 Baso % (Auto) 0.3 Neut # (Auto) 4.36 Lymph # (Auto) 0.47 L [place] # (Auto) 0.61 H Eos # (Auto) 0.32 Baso # (Auto) 0.02 Immature Gran # (Auto) 0.03 Sodium 137 Potassium 3.9 Chloride 105 Carbon Dioxide 25 Anion Gap 7 BUN 68 H Creatinine 3.07 H D Est Cr Clr Drug Dosing 25.2 Est GFR ( Amer) 21.9 Est GFR (Non-Af Amer) 18.9 BUN/Creatinine Ratio 22.1 H Glucose 134 H POC Glucose 193 H Calcium 8.7 PG Care Time/CCT Total # of Minutes Spent Total Time Spent with Patient: Total time spent is greater than 50% in coordination of care (as documented) at patient's floor/unit and/or counseling patient: Coding Level of Care Code 17302 SUB INP/OBS CARE 50MIN Diagnoses ESRD (end stage renal disease) N18.6 Acute on chronic combined systolic and diastolic CHF (congestive heart failure) I50.43
--- NOTE | 2023-10-06 08:58 | XRay Report ---
XR chest 1V portable CLINICAL HISTORY: CHF TECHNIQUE: Single frontal radiograph of the chest was obtained. Comparison: Comparison is made to chest radiograph 10/04/2023 FINDINGS: Median sternotomy wires are unchanged. Right jugular venous catheter is seen. Cardiomegaly is noted. Prominence and cephalization of the vasculature is seen. Faint bibasilar airspace opacities. Trace bi lateral pleural effusions. IMPRESSION: 1. Cardiomegaly and mild pulmonary edema. 2. Trace bilateral pleural effusions. ACT 112: Negative or not required by law. Electronically signed by: Lai Marion M.D. 10/06/2023 8:57 AM
--- NOTE | 2023-10-06 11:42 | History & Physical Bridge Note ---
Date of Service October 06, 2023 History & Physical Bridge Note Patient for insertion of permcath today. I have discussed the risks options and benefits of the procedure with the patient. The patient understands the risks options and benefits and agrees to the procedure. I have examined the patient, reviewed the History & Physical and in the interval since the performance of the History & Physical I have noted the following changes of clinical significance: no changes noted
[2023-10-06] MEDS: SODIUM CHLORIDE 0.9% 500 ML IV SCH (15:12)
[2023-10-06] MEDS: ceFAZolin 2000MG 2,000 MG/15 ML SYR IV SCH (15:13)
--- NOTE | 2023-10-06 15:14 | Pre Anesthesia Assessment ---
Date of Service October 06, 2023 Pre Sedation Assessment Vital Signs Temp Pulse Pulse Pulse Pulse Resp BP 10/06/23 14:24 56 L 10/06/23 14:19 36.5 C 55 L 20 10/06/23 13:34 10/06/23 12:13 36.6 C 54 L 18 10/06/23 11:56 36.4 C L 54 L 10/06/23 11:52 56 L 166/80 H 10/06/23 11:30 54 L 169/89 H 10/06/23 11:00 56 L 164/75 H 10/06/23 10:30 54 L 140/70 10/06/23 10:00 55 L 159/81 H 10/06/23 09:52 54 L 10/06/23 09:30 56 L 162/78 H 10/06/23 09:00 56 L 171/80 H 10/06/23 08:50 62 167/82 H 10/06/23 08:45 36.4 C L 62 10/06/23 07:13 36.4 C L 57 L 18 10/06/23 03:32 36.5 C 56 L 18 10/05/23 23:04 36.5 C 52 L 18 10/05/23 21:58 55 L 10/05/23 20:20 10/05/23 19:54 36.5 C 56 L 18 BP Pulse Ox O2 Del Method O2 Flow Rate 10/06/23 14:24 10/06/23 14:19 153/63 H 96 Room Air 10/06/23 13:34 Nasal Cannula 2 10/06/23 12:13 162/66 H 96 Nasal Cannula 2 10/06/23 11:56 161/80 H 10/06/23 11:52 10/06/23 11:30 10/06/23 11:00 10/06/23 10:30 10/06/23 10:00 10/06/23 09:52 10/06/23 09:30 10/06/23 09:00 10/06/23 08:50 10/06/23 08:45 10/06/23 07:13 166/74 H 97 Nasal Cannula 2 10/06/23 03:32 152/72 H 98 Nasal Cannula 2 10/05/23 23:04 157/72 H 96 Nasal Cannula 2 10/05/23 21:58 10/05/23 20:20 Nasal Cannula 2 10/05/23 19:54 169/71 H 95 Nasal Cannula 2 Cardiovascular RRR, no murmur, no edema Respiratory normal respiratory effort, lungs clear to auscultation Pre-Sedation Airway Assessment Smoking Status: Never smoker Hx Sleep Apnea: No Short, Thick Neck: Yes Thyromental Distance: < 3.5 Finger Breadths Oral Cavity: + WNL Mallampati Class: II ASA: ASA3 NPO Status Date of Last Intake of Fluids: 10/05/23 Time of Last Intake of Fluids: 17:30 Date of Last Intake of Solid Food: 10/05/23 Time of Last Intake of Solid Foods: 17:30 Procedure Planning Contraindications for Sedation: none Current Medications Reviewed: Yes Notes The planned sedation has been discussed with the patient. Informed Consent was obtained. I have identified the patient, determined the appropriateness of sedation and have assessed the patient immediately prior to the procedure. All medicine(s) and interventions are by my order.
[2023-10-06] MEDS: fentaNYL citrate PF 100 MCG/2 ML VIAL ONE (15:30)
[2023-10-06] MEDS: MIDAZOLAM HCL 1 MG/ML 2ML VIAL ONE (15:30)
--- NOTE | 2023-10-06 15:53 | Operative Report ---
Post Operative Report Pre & Post Diagnosis Operation Date: 10/06/23 15:10 Pre-Op Diagnosis: ABDOULAYE Post-Op Diagnosis: ABDOULAYE I identified the patient and participated in the time-out.: Yes Procedure Operation Date: 10/06/23 15:10 Actual Procedures p Insertion of Perm Catheter, Right Internal Jugular Approach, Ultrasound Localization of Right Internal Jugular Vein, Fluoroscopy for Positioning, Removal of Temporary Dialysis Catheter, Moderate Sedation [id number] (Right) - Ed Howard MD Surgeon Ed Howard MD Operational Test Mechanic none Estimated Blood Loss 10 Findings Consistent with Post-Op Diagnosis Specimens none Anesthesia Type RN Sedation Complications none Disposition Accompanied Patient To Recovery: No Disposition: Recovery Room Indications This is a 73-year-old gentleman who has acute kidney injury on top of chronic kidney disease. He has a fistula in the left arm which infiltrated and cannot be accessed. The a temporary catheter was placed last week and is now in need of a PermCath to let the arm rest and the swelling go down. I have discussed the risks options and benefits of the procedure with the patient. The patient understands the risks options and benefits and agrees to the procedure. Description of Procedure Patient was taken to the angio suite and placed in the supine position. The right side of the neck and chest wall were prepped and draped in a sterile manner. The patient was identified and a timeout performed. Local anesthesia was then administered to the appropriate areas of the neck and chest wall. Ultrasound was then used to locate the right internal jugular vein. The vein compressed easily, had no filing defects, and was patent. The vein was then punctured under direct ultrasound imaging. A guidewire was then passed centrally under fluoroscopic imaging. A stab wound was then made in the anterior chest wall and a 19 cm permcath was passed from the stab wound on the chest wall to the puncture site on the neck. The puncture site was then dilated till the 14Fr peel away sheath was inserted. The permcath was then inserted through the sheath to a central position in the distal superior vena cava. The peel away sheath was then removed. The catheter was then sutured in place using nylon sutures. The puncture was then closed using a 4-0 Vicryl subcuticular suture. Dermabond was used for a dressing on the puncture site. Both ports aspirated and flushed easily and were then packed with heparin. A sterile dressing was applied to the catheter. The patient left the operation room in satisfactory condition and tolerated the procedure well. All needle and sponge counts were correct at the end of the procedure. I attest to the content of the Intraoperative Record and any orders documented therein. Any exceptions are noted below.
--- NOTE | 2023-10-06 15:55 | Post Anesthesia Assessment ---
Date of Service October 06, 2023 Post Sedation Assessment Vital Signs Temp Pulse Pulse Pulse Pulse Resp BP 10/06/23 15:55 53 L 17 10/06/23 15:50 54 L 15 10/06/23 15:45 55 L 17 10/06/23 15:40 58 L 19 10/06/23 15:35 59 L 18 10/06/23 15:30 56 L 15 10/06/23 15:25 60 23 10/06/23 14:24 56 L 10/06/23 14:19 36.5 C 55 L 20 10/06/23 13:34 10/06/23 12:13 36.6 C 54 L 18 10/06/23 11:56 36.4 C L 54 L 10/06/23 11:52 56 L 166/80 H 10/06/23 11:30 54 L 169/89 H 10/06/23 11:00 56 L 164/75 H 10/06/23 10:30 54 L 140/70 10/06/23 10:00 55 L 159/81 H 10/06/23 09:52 54 L 10/06/23 09:30 56 L 162/78 H 10/06/23 09:00 56 L 171/80 H 10/06/23 08:50 62 167/82 H 10/06/23 08:45 36.4 C L 62 10/06/23 07:13 36.4 C L 57 L 18 10/06/23 03:32 36.5 C 56 L 18 10/05/23 23:04 36.5 C 52 L 18 10/05/23 21:58 55 L 10/05/23 20:20 10/05/23 19:54 36.5 C 56 L 18 BP Pulse Ox O2 Del Method O2 Flow Rate 10/06/23 15:55 152/67 H 96 Oxymask 2 10/06/23 15:50 152/66 H 97 Oxymask 2 10/06/23 15:45 162/69 H 98 Oxymask 2 10/06/23 15:40 149/71 H 98 Oxymask 2 10/06/23 15:35 167/75 H 97 Oxymask 2 10/06/23 15:30 159/72 H 95 Oxymask 2 10/06/23 15:25 148/87 H 94 Oxymask 2 10/06/23 14:24 10/06/23 14:19 153/63 H 96 Room Air 10/06/23 13:34 Nasal Cannula 2 10/06/23 12:13 162/66 H 96 Nasal Cannula 2 10/06/23 11:56 161/80 H 10/06/23 11:52 10/06/23 11:30 10/06/23 11:00 10/06/23 10:30 10/06/23 10:00 10/06/23 09:52 10/06/23 09:30 10/06/23 09:00 10/06/23 08:50 10/06/23 08:45 10/06/23 07:13 166/74 H 97 Nasal Cannula 2 10/06/23 03:32 152/72 H 98 Nasal Cannula 2 10/05/23 23:04 157/72 H 96 Nasal Cannula 2 10/05/23 21:58 10/05/23 20:20 Nasal Cannula 2 10/05/23 19:54 169/71 H 95 Nasal Cannula 2 Recovery Score Activity: Moves 4 extremities Respiration: Deep Breath/Cough Circulation: +/-20% PreAnes Value Consciousness: Fully Awake Oxygen Saturation: > 92% On Room Air Post Anesthesia Score: 10 Discharge Sedation Level of Care: Fast Track Phase II Post Sedation Plan On clinical assessment, the patient appears to have tolerated the sedation without complications. Patient is recovering as anticipated. Patient will continue to be monitored by nursing and may be discharged when sedation discharge criteria are met per below protocol. Upon Completions of procedure up to 15 minutes continue every 5 minute vital signs and the P.A.R. score; then discharge to a Phase I or Fast Track to Phase II per the following guidelines: * Discharge Patient to appropriate Phase II area if PAR is 8 or greater or return to pre- procedure baseline. The post - procedure orders will be as d irected. * If PAR score is less than 8 or not return to pre-procedure baseline then patient will follow Phase I monitoring till PAR is reached for Phase II. The Phase I may be done in procedure room or may call to secure a Phase I area. * If naloxone or flumazenil are used for reversal, hold in Phase I for continued monitoring from when last reversal dose was given for a minimum of 60 minutes or longer pending the nurse and/or physician discretion of patient condition before discharge to Phase II. Please call the Sedation Physician to re-evaluate and complete post-note for discharge to Phase II area. Do NOT discharge from procedure sedation or Phase 1 until post- sedation evaluation note is complete by procedure /sedation MD Sedation Discharge Instructions to be given to the patient at discharge to home.
[2023-10-06] MEDS: LIDOCAINE 1% LOCAL 20 ML VIAL ONE (16:17)
[2023-10-06] MEDS: HEPARIN SOD (PORCINE) 5,000 UNITS/ML VIAL ONE (16:18)
--- NOTE | 2023-10-06 16:52 | Hospitalist Progress Note ---
Date of Service October 06, 2023 Assessment & Plan (1) Acute kidney injury superimposed on chronic kidney disease: Plan: He has now progressed to end-stage renal disease. A temporary hemodialysis catheter was placed on September 29 because his AV fistula could not be cannulated. He underwent permacath placement today, October 05. Appreciate nephrology and vascular surgery consultations and recommendations. (2) Hyperkalemia: Plan: Potassium 5.6 on admission. Now resolved with dialysis. Serial labs (3) Acute respiratory failure with hypoxia: Plan: Due to underlying CHF. Continue oxygen per nasal cannula to maintain saturation greater than 90%. Wean off as tolerated. Chest x-ray today, October 05, looks better (4) Heart failure with mildly reduced ejection fraction (HFmrEF): Plan: Acute decompensated systolic congestive heart failure/congestive heart failure with reduced ejection fraction present on admission. Much improved with dialysis. Repeat chest x-ray done today, October 05, looks better. Nephrology has been started po bumex on 10/02/23 (5) Type 2 diabetes mellitus: Plan: Controlled. ADA diet. Sliding scale coverage. Basal insulin therapy (6) Elevated troponin I level: Plan: Chronic. No evidence of acute coronary syndrome (7) CAD, multiple vessel: Plan: Stable. Continue current medical management Plan OT and PT both recommend rehab placement. He now agrees to go to [facility] at discharge. Proceedings are underway Admission and Anticipated Discharge Date Admission Date: September 28, 2023 Subjective The patient was seen earlier today, October 05, while he was in hemodialysis. He subsequently had a tunneled dialysis catheter placed in the temporary dialysis catheter removed. He is currently doing well. Chest x-ray done today, October 05, looks better. He remains on oxygen at 2 L. Hopefully he can go to [facility] at discharge when a dialysis bed is available. Review of Systems 2 Review of Systems: Constitutional-no fever or chills ENT-no blurred vision, no double vision, no epistaxis, no sore throat Respiratory-no cough, no wheezing, no shortness of breath at rest Cardiac-no palpitations, no chest pain, no syncope GI-no nausea, vomiting, diarrhea, melena, hematochezia -no urinary retention, no urinary incontinence, no dysuria, no hematuria Musculoskeletal-no joint pain, no muscle tenderness. Left BKA status Skin-no bruising, no rashes, no pruritus Neuro-no isolated weakness, no paresthesia Psych-no depression, no anxiety Physical Exam 2 Physical Exam: General-alert and oriented x3, no fever, no chills HEENT-head atraumatic and normocephalic, pupils equal and reactive to light, extraocular muscles intact Neck-no lymphadenopathy or thyromegaly, trachea midline Chest-diminished breath sounds bilaterally. No wheezing. No rhonchi Cardiac-regular rate and rhythm, normal S1 and S2 Abdomen-normal bowel sounds, no hepatosplenomegaly Extremities-no cyanosis, clubbing, or edema. Left BKA status Neuro-cranial nerves II through XII intact, motor and sensory function within normal limits, strength symmetrical, no focal deficits Psych-normal affect, normal mood Results & Data Results & Data Vital Signs (Past 12 Hours) Vital Signs Temp Pulse Pulse Pulse Pulse Resp BP 10/06/23 16:45 36.8 C 55 L 18 10/06/23 16:34 55 L 18 10/06/23 16:15 55 L 16 10/06/23 15:55 53 L 17 10/06/23 15:50 54 L 15 10/06/23 15:45 55 L 17 10/06/23 15:40 58 L 19 10/06/23 15:35 59 L 18 10/06/23 15:30 56 L 15 10/06/23 15:25 60 23 10/06/23 14:24 56 L 10/06/23 14:19 36.5 C 55 L 20 10/06/23 13:34 10/06/23 12:13 36.6 C 54 L 18 10/06/23 11:56 36.4 C L 54 L 10/06/23 11:52 56 L 166/80 H 10/06/23 11:30 54 L 169/89 H 10/06/23 11:00 56 L 164/75 H 10/06/23 10:30 54 L 140/70 10/06/23 10:00 55 L 159/81 H 10/06/23 09:52 54 L 10/06/23 09:30 56 L 162/78 H 10/06/23 09:00 56 L 171/80 H 10/06/23 08:50 62 167/82 H 10/06/23 08:45 36.4 C L 62 10/06/23 07:13 36.4 C L 57 L 18 BP Pulse Ox O2 Del Method O2 Flow Rate 10/06/23 16:45 159/67 H 94 Nasal Cannula 2 10/06/23 16:34 145/74 H 96 Nasal Cannula 2 10/06/23 16:15 142/65 H 94 Nasal Cannula 2 10/06/23 15:55 152/67 H 96 Oxymask 2 10/06/23 15:50 152/66 H 97 Oxymask 2 10/06/23 15:45 162/69 H 98 Oxymask 2 10/06/23 15:40 149/71 H 98 Oxymask 2 10/06/23 15:35 167/75 H 97 Oxymask 2 10/06/23 15:30 159/72 H 95 Oxymask 2 10/06/23 15:25 148/87 H 94 Oxymask 2 10/06/23 14:24 10/06/23 14:19 153/63 H 96 Room Air 10/06/23 13:34 Nasal Cannula 2 10/06/23 12:13 162/66 H 96 Nasal Cannula 2 10/06/23 11:56 161/80 H 10/06/23 11:52 10/06/23 11:30 10/06/23 11:00 10/06/23 10:30 10/06/23 10:00 10/06/23 09:52 10/06/23 09:30 10/06/23 09:00 10/06/23 08:50 10/06/23 08:45 10/06/23 07:13 166/74 H 97 Nasal Cannula 2 Laboratory Results 10/06/23 06:25 10/06/23 06:25 PG Care Time/CCT Total # of Minutes Spent Total Time Spent with Patient: Total time spent is greater than 50% in coordination of care (as documented) at patient's floor/unit and/or counseling patient: Coding Level of Care Code 96959 SUB INP/OBS CARE 3/50MIN Diagnoses Acute kidney injury superimposed on chronic kidney disease N17.9; N18.9 Hyperkalemia E87.5 Acute respiratory failure with hypoxia J96.01 Heart failure with mildly reduced ejection fraction (HFmrEF) I50.22 Type 2 diabetes mellitus E11.9 Elevated troponin I level R79.89 CAD, multiple vessel I25.10
[2023-10-07 06:44] LABS: Basophils # (auto) 0.05 K/uL (0.00-0.20); Basophils % (auto) 0.8 %; Eosinophils # (auto) 0.35 K/uL (0.00-0.50); Eosinophils % (auto) 5.4 %; Hematocrit (blood only) 33.4 % (42.0-52.0); Hemoglobin 10.8 g/dl (14.0-18.0); Immature Granulocytes # (auto) 0.04 K/uL (0.01-0.20); Immature Granulocytes % (auto) 0.6 %; Lymphocytes # (auto) 0.48 K/uL (1.20-3.40); Lymphocytes % (auto) 7.4 %; Mean Corpuscular Hemoglobin 31.3 pg (25.0-34.0); Mean Corpuscular Hgb Conc 32.3 g/dL (32.0-36.0); Mean Corpuscular Volume 96.8 fL (80.0-100.0); Mean Platelet Volume 13.3 fL (9.4-12.4); Monocytes # (auto) 0.71 K/uL (0.11-0.59); Neutrophils # (auto) 4.85 K/uL (1.40-6.50); Neutrophils % (auto) 74.8 %; Platelet Count 97 K/uL (130-400); RDW Coefficient of Variation 14.9 % (11.5-14.5); RDW Standard Deviation 53.1 fL (36.4-46.3); Red Blood Count 3.45 M/uL (4.70-6.10); White Blood Count 6.48 K/ul (4.8-10.8)
[2023-10-07 06:53] LABS: BUN Creatinine Ratio 19.7 (10-20); Calcium 8.5 mg/dl (8.6-10.3); Creatinine Clr Calc Pharmacy 28.7 ml/min; Est GFR (African American) 26.3 ml/min; Est GFR (Non-African American) 22.7 ml/min; Potassium 3.9 mmol/L (3.5-5.1)
--- NOTE | 2023-10-07 09:05 | Nephrology Progress Note ---
Date of Service October 07, 2023 Assessment & Plan (1) ESRD (end stage renal disease): Plan: * 1st HD treatment 09/29/21 * AVF infiltrated during 1st treatment and patient required temporary IJ HD catheter insertion * Patient was unable to tolerate use of his AVF for HD 10/04/23. Dialysis 10/04/23 was performed using his temporary IJ HD catheter. 2.5 L UF obtained * Volume status and electrolyte balance are acceptable. Will plan next HD for 10/08/23 * Case management will set up transfer to following HD tomorrow (2) Acute on chronic combined systolic and diastolic CHF (congestive heart failure): Plan: * Continue Bumex to encourage urine output (400 cc last 24 hrs) * RAASi may be revisited once patient is established on HD Admission and Anticipated Discharge Date Admission Date: September 28, 2023 Subjective Mr. Em was evaluated in his hospital room this morning. He was breathing comfortably on RA He c/o sacral discomfort and was anxious to sit up in a chair. Review of Systems Constitutional: no fever Eyes: no problem reported Ear, Nose, Mouth, Throat: no problem reported Respiratory: no cough and no dyspnea Cardiovascular: no chest pain Gastrointestinal: no abdominal pain, no nausea, no vomiting and no d iarrhea/loose stools Integumentary: no rash Neurologic: no problem reported Physical Exam Constitutional: not in distress Eyes: PERRL, conjunctivae normal, anicteric sclerae ENMT: external ear and nose normal, oropharynx normal Neck: trachea midline, no thyromegaly R IJ TCC with clean dry dressing in place Respiratory: normal respiratory effort, lungs clear to auscultation Cardiovascular: Rate/Rhythm: + bradycardic Heart Sounds: normal S1 and normal S2 Gastrointestinal (Abdomen): normal bowel sounds, soft, nontender, no hepatosplenomegaly Skin: no rashes, warm and dry Neurologic: Speech / Cognition: normal speech and normal cognition Results & Data Vital Signs (Past 12 Hours) Vital Signs Temp Pulse Pulse Resp BP Pulse Ox O2 Del Method 10/07/23 07:48 36.3 C L 59 L 18 151/83 H 95 Room Air 10/07/23 02:44 36.6 C 54 L 18 126/62 95 Nasal Cannula 10/06/23 22:55 36.4 C L 60 18 92 Nasal Cannula 10/06/23 22:00 59 L O2 Flow Rate 10/07/23 07:48 10/07/23 02:44 2 10/06/23 22:55 2 10/06/23 22:00 Laboratory Results Laboratory Results - last 24 hr 10/06/23 10/06/23 10/06/23 12:20 14:15 16:26 WBC RBC Hgb Hct MCV MCH MCHC RDW Std Deviation RDW Coeff of Jose Plt Count MPV Immature Gran % (Auto) Neut % (Auto) Lymph % (Auto) [place] % (Auto) Eos % (Auto) Baso % (Auto) Neut # (Auto) Lymph # (Auto) [place] # (Auto) Eos # (Auto) Baso # (Auto) Immature Gran # (Auto) Sodium Potassium Chloride Carbon Dioxide Anion Gap BUN Creatinine Est Cr Clr Drug Dosing Est GFR ( Amer) Est GFR (Non-Af Amer) BUN/Creatinine Ratio Glucose POC Glucose 93 78 79 Calcium 10/06/23 10/07/23 10/07/23 21:15 06:15 07:44 WBC 6.48 RBC 3.45 L Hgb 10.8 L Hct 33.4 L MCV 96.8 MCH 31.3 MCHC 32.3 RDW Std Deviation 53.1 H RDW Coeff of Jose 14.9 H Plt Count 97 L MPV 13.3 H Immature Gran % (Auto) 0.6 Neut % (Auto) 74.8 Lymph % (Auto) 7.4 [place] % (Auto) 11.0 Eos % (Auto) 5.4 Baso % (Auto) 0.8 Neut # (Auto) 4.85 Lymph # (Auto) 0.48 L [place] # (Auto) 0.71 H Eos # (Auto) 0.35 Baso # (Auto) 0.05 Immature Gran # (Auto) 0.04 Sodium 139 Potassium 3.9 Chloride 107 Carbon Dioxide 26 Anion Gap 6 BUN 52 H Creatinine 2.64 H D Est Cr Clr Drug Dosing 28.7 Est GFR ( Amer) 26.3 Est GFR (Non-Af Amer) 22.7 BUN/Creatinine Ratio 19.7 Glucose 98 POC Glucose 107 H 92 Calcium 8.5 L PG Care Time/CCT Total # of Minutes Spent Total Time Spent with Patient: Total time spent is greater than 50% in coordination of care (as documented) at patient's floor/unit and/or counseling patient: Coding Level of Care Code 09563 SUB INP/OBS CARE 50MIN Diagnoses ESRD (end stage renal disease) N18.6 Acute on chronic combined systolic and diastolic CHF (congestive heart failure) I50.43
--- NOTE | 2023-10-07 12:25 | Hospitalist Progress Note ---
Date of Service October 07, 2023 Assessment & Plan (1) Acute kidney injury superimposed on chronic kidney disease: Plan: He has now progressed to end-stage renal disease. A temporary hemodialysis catheter was placed on September 29 because his AV fistula could not be cannulated and it was subsequently removed on October 05 after placement of the permacath. He underwent permacath placement on October 05. Appreciate nephrology and vascular surgery consultations and recommendations. (2) Hyperkalemia: Plan: Potassium 5.6 on admission. Now resolved with dialysis. Serial labs (3) Acute respiratory failure with hypoxia: Plan: Due to underlying CHF. Now resolved. He is now on room air. (4) Heart failure with mildly reduced ejection fraction (HFmrEF): Plan: Acute decompensated systolic congestive heart failure/congestive heart failure with reduced ejection fraction present on admission. Appears to have resolved with dialysis. Will repeat portable chest x-ray again tomorrow, October 07. Nephrology has been started po bumex on 10/02/23 (5) Type 2 diabetes mellitus: Plan: Controlled. ADA diet. Sliding scale coverage. Basal insulin therapy (6) Elevated troponin I level: Plan: Chronic. No evidence of acute coronary syndrome (7) CAD, multiple vessel: Plan: Stable. Continue current medical management Plan Eventual discharge to [facility] when arrangements are finalized. Admission and Anticipated Discharge Date Admission Date: September 28, 2023 Subjective Alert and oriented. No acute distress. Stable overall. He is now on room air. Will repeat portable chest x-ray again tomorrow, October 07. Awaiting discharge to [facility] Review of Systems 2 Review of Systems: Constitutional-no fever or chills ENT-no blurred vision, no double vision, no epistaxis, no sore throat Respiratory-no cough, no wheezing, no shortness of breath at rest Cardiac-no palpitations, no chest pain, no syncope GI-no nausea, vomiting, diarrhea, melena, hematochezia -no urinary retention, no urinary incontinence, no dysuria, no hematuria Musculoskeletal-no joint pain, no muscle tenderness. Left BKA status Skin-no bruising, no rashes, no pruritus Neuro-no isolated weakness, no paresthesia Psych-no depression, no anxiety Physical Exam 2 Physical Exam: General-alert and oriented x3, no fever, no chills HEENT-head atraumatic and normocephalic, pupils equal and reactive to light, extraocular muscles intact Neck-no lymphadenopathy or thyromegaly, trachea midline. Previous right IJ temporary dialysis catheter has been removed Chest-diminished breath sounds bilaterally. No wheezing. No rhonchi. Tunneled dialysis catheter is now in place in the right upper chest area Cardiac-regular rate and rhythm, normal S1 and S2 Abdomen-normal bowel sounds, no hepatosplenomegaly Extremities-no cyanosis, clubbing, or edema. Left BKA status Neuro-cranial nerves II through XII intact, motor and sensory function within normal limits, strength symmetrical, no focal deficits Psych-normal affect, normal mood Results & Data Results & Data Vital Signs (Past 12 Hours) Vital Signs Temp Pulse Resp BP Pulse Ox O2 Del Method O2 Flow Rate 10/07/23 11:19 36.3 C L 55 L 18 158/76 H 98 Nasal Cannula 3 10/07/23 07:48 36.3 C L 59 L 18 151/83 H 95 Room Air 10/07/23 02:44 36.6 C 54 L 18 126/62 95 Nasal Cannula 2 Laboratory Results 10/07/23 06:15 10/07/23 06:15 PG Care Time/CCT Total # of Minutes Spent Total Time Spent with Patient: Total time spent is greater than 50% in coordination of care (as documented) at patient's floor/unit and/or counseling patient: Coding Level of Care Code 00476 SUB INP/OBS CARE 3/50MIN Diagnoses Acute kidney injury superimposed on chronic kidney disease N17.9; N18.9 Hyperkalemia E87.5 Acute respiratory failure with hypoxia J96.01 Heart failure with mildly reduced ejection fraction (HFmrEF) I50.22 Type 2 diabetes mellitus E11.9 Elevated troponin I level R79.89 CAD, multiple vessel I25.10
[2023-10-08 06:22] LABS: Basophils # (auto) 0.04 K/uL (0.00-0.20); Basophils % (auto) 0.6 %; Eosinophils # (auto) 0.33 K/uL (0.00-0.50); Eosinophils % (auto) 5.3 %; Hemoglobin 10.6 g/dl (14.0-18.0); Immature Granulocytes # (auto) 0.01 K/uL (0.01-0.20); Immature Granulocytes % (auto) 0.2 %; Lymphocytes # (auto) 0.48 K/uL (1.20-3.40); Lymphocytes % (auto) 7.7 %; Mean Corpuscular Hemoglobin 30.7 pg (25.0-34.0); Mean Corpuscular Hgb Conc 32.1 g/dL (32.0-36.0); Mean Corpuscular Volume 95.7 fL (80.0-100.0); Mean Platelet Volume 13.4 fL (9.4-12.4); Monocytes # (auto) 0.67 K/uL (0.11-0.59); Monocytes % (auto) 10.8 %; Neutrophils % (auto) 75.4 %; Platelet Count 95 K/uL (130-400); RDW Coefficient of Variation 14.6 % (11.5-14.5); RDW Standard Deviation 51.6 fL (36.4-46.3); Red Blood Count 3.45 M/uL (4.70-6.10); White Blood Count 6.23 K/ul (4.8-10.8)
[2023-10-08 06:46] LABS: BUN Creatinine Ratio 20.1 (10-20); Calcium 8.7 mg/dl (8.6-10.3); Creatinine Clr Calc Pharmacy 24.5 ml/min; Est GFR (African American) 21.4 ml/min; Est GFR (Non-African American) 18.4 ml/min; Potassium 3.6 mmol/L (3.5-5.1)
[2023-10-08] MEDS ORDERED: SODIUM CHLORIDE 0.9% 1,000 ML IV PRN (07:00)
--- NOTE | 2023-10-08 07:32 | XRay Report ---
XR chest 1V portable CLINICAL HISTORY: Congestive heart failure. COMPARISON STUDY: Chest radiograph October 06, 2023. FINDINGS: Dual lumen right internal jugular central venous catheter is in place. Tip projects over th e distal SVC. There are median sternotomy wires. Cardiomegaly is again noted. There is no pneumothora x. Small bilateral pleural effusions with bibasilar opacities are unchanged. Pulmonary edema persists . IMPRESSION: Cardiomegaly. No significant change in pulmonary edema with small bilateral pleural effu sions and associated bibasilar opacities. ACT 112: Negative or not required by law. Electronically signed by: Camilo Block M.D. 10/08/2023 7:31 AM
--- NOTE | 2023-10-08 08:57 | Nephrology Progress Note ---
Date of Service October 08, 2023 Assessment & Plan (1) ESRD (end stage renal disease): Plan: * 1st HD treatment 09/29/21 * AVF infiltrated during 1st treatment and patient required temporary IJ HD catheter insertion. This was changed to IJ TCC 10/06/23 * Will provide HD today via IJ TCC and continue to rest AVF until hematoma resolves (2-4 weeks) * Case management is working to set up transfer to [facility] (2) Acute on chronic combined systolic and diastolic CHF (congestive heart failure): Plan: * Continue Bumex to encourage urine output (625 cc last 24 hrs) * RAASi may be revisited once patient is established on HD Admission and Anticipated Discharge Date Admission Date: September 28, 2023 Subjective Mr. Em was evaluated in his hospital room this morning. He was breathing comfortably on RA. He has mild discomfort from the IJ TCC Review of Systems Constitutional: no fever Eyes: no problem reported Ear, Nose, Mouth, Throat: no problem reported Respiratory: no cough and no dyspnea Cardiovascular: no chest pain Gastrointestinal: no abdominal pain, no nausea, no vomiting and no diarrhea/loose stools Integumentary: no rash Neurologic: no problem reported Physical Exam Constitutional: not in distress Eyes: PERRL, conjunctivae normal, anicteric sclerae ENMT: external ear and nose normal, oropharynx normal Neck: trachea midline, no thyromegaly Respiratory: normal respiratory effort, lungs clear to auscultation Cardiovascular: Rate/Rhythm: + bradycardic Heart Sounds: normal S1 and no rmal S2 Extremities: + AV fistula (+ bruit, dependent ecchymosis of the arm noted) Gastrointestinal (Abdomen): normal bowel sounds, soft, nontender, no hepatosplenomegaly Skin: no rashes, warm and dry Neurologic: Speech / Cognition: normal speech and normal cognition Results & Data Vital Signs (Past 12 Hours) Vital Signs Temp Pulse Pulse Pulse Resp BP BP 10/08/23 08:07 36.5 C 62 18 144/62 H 10/08/23 08:00 10/08/23 07:00 79 10/08/23 03:12 36.5 C 57 L 18 142/62 H 10/07/23 23:51 36.3 C L 56 L 18 113/68 10/07/23 22:23 60 Pulse Ox O2 Del Method O2 Flow Rate 10/08/23 08:07 97 Nasal Cannula 2 10/08/23 08:00 Nasal Cannula 2 10/08/23 07:00 10/08/23 03:12 96 Nasal Cannula 2 10/07/23 23:51 95 Nasal Cannula 2 10/07/23 22:23 Laboratory Results Laboratory Results - last 24 hr 10/07/23 10/07/23 10/07/23 11:17 17:05 20:24 WBC RBC Hgb Hct MCV MCH MCHC RDW Std Deviation RDW Coeff of Jose Plt Count MPV Immature Gran % (Auto) Neut % (Auto) Lymph % (Auto) [place] % (Auto) Eos % (Auto) Baso % (Auto) Neut # (Auto) Lymph # (Auto) [place] # (Auto) Eos # (Auto) Baso # (Auto) Immature Gran # (Auto) Sodium Potassium Chloride Carbon Dioxide Anion Gap BUN Creatinine Est Cr Clr Drug Dosing Est GFR ( Amer) Est GFR (Non-Af Amer) BUN/Creatinine Ratio Glucose POC Glucose 163 H 287 H 201 H Calcium 10/08/23 10/08/23 10/08/23 05:42 07:44 07:46 WBC 6.23 RBC 3.45 L Hgb 10.6 L Hct 33.0 L MCV 95.7 MCH 30.7 MCHC 32.1 RDW Std Deviation 51.6 H RDW Coeff of Jose 14.6 H Plt Count 95 L MPV 13.4 H Immature Gran % (Auto) 0.2 Neut % (Auto) 75.4 Lymph % (Auto) 7.7 [place] % (Auto) 10.8 Eos % (Auto) 5.3 Baso % (Auto) 0.6 Neut # (Auto) 4.70 Lymph # (Auto) 0.48 L [place] # (Auto) 0.67 H Eos # (Auto) 0.33 Baso # (Auto) 0.04 Immature Gran # (Auto) 0.01 Sodium 139 Potassium 3.6 Chloride 106 Carbon Dioxide 25 Anion Gap 8 BUN 63 H Creatinine 3.13 H D Est Cr Clr Drug Dosing 24.5 Est GFR ( Amer) 21.4 Est GFR (Non-Af Amer) 18.4 BUN/Creatinine Ratio 20.1 H Glucose 60 L POC Glucose 60 L* 66 L* Calcium 8.7 10/08/23 08:02 WBC RBC Hgb Hct MCV MCH MCHC RDW Std Deviation RDW Coeff of Jose Plt Count MPV Immature Gran % (Auto) Neut % (Auto) Lymph % (Auto) [place] % (Auto) Eos % (Auto) Baso % (Auto) Neut # (Auto) Lymph # (Auto) [place] # (Auto) Eos # (Auto) Baso # (Auto) Immature Gran # (Auto) Sodium Potassium Chloride Carbon Dioxide Anion Gap BUN Creatinine Est Cr Clr Drug Dosing Est GFR ( Amer) Est GFR (Non-Af Amer) BUN/Creatinine Ratio Glucose POC Glucose 73 Calcium PG Care Time/CCT Total # of Minutes Spent Total Time Spent with Patient: Total time spent is greater than 50% in coordination of care (as documented) at patient's floor/unit and/or counseling patient: Coding Level of Care Code 55378 SUB INP/OBS CARE 3/50MIN Diagnoses ESRD (end stage renal disease) N18.6 Acute on chronic combined systolic and diastolic CHF (congestive heart failure) I50.43
--- NOTE | 2023-10-08 12:26 | Discharge Summary ---
Date of Service October 08, 2023 Admission HPI Per Admitting Provider This is a 73-year-old male with chronic kidney disease stage IV. He saw his vice president sales yesterday and his Bumex was doubled. Patient presents today with increasing shortness of breath and weakness. In the emergency department he was found to be in acute on chronic renal failure with a creatinine of 4. I did do a stat bladder scan at the bedside with only positive for 120 cc of urine. Troponin was 250. EKG was nonacute. Course in the ER he had some calcium gluconate. There was a proceed bradycardia on transport at 30 bpm however the patient was found to be in bigeminy therefore not true bradycardia. Patient was given a gram of calcium gluconate initially. Potassium is mildly elevated at 5.6. Requested consultation with nephrology given the fact that they were just seen yesterday by nephrology. ER provider spoke with nephrology on-call who recommended IV Bumex. This has been ordered. Repeat troponins. If continues to elevate will consider heparinization and cardiology consult. The patient d oes have a chronic troponinemia this is somewhat higher than last admission but about the same as admission prior to the last admission. Echocardiogram last analyzed May 2023 with an EF of 45%. Will repeat an echo during this admission. Patient does not endorse any chest pain symptomatology whatsoever. Principal Diagnosis End-stage renal disease, acute on chronic combined systolic and diastolic CHF, acute hypoxic respiratory failure Discharge Exam General-alert and oriented x3, no fever, no chills HEENT-head atraumatic and normocephalic, pupils equal and reactive to light, extraocular muscles intact Neck-no lymphadenopathy or thyromegaly, trachea midline. Previous right IJ temporary dialysis catheter has been removed Chest-diminished breath sounds bilaterally. No wheezing. No rhonchi. Tunneled dialysis catheter is now in place in the right upper chest area Cardiac-regular rate and rhythm, normal S1 and S2 Abdomen-normal bowel sounds, no hepatosplenomegaly Extremities-no cyanosis, clubbing, or edema. Left BKA status Neuro-cranial nerves II through XII intact, motor and sensory function within normal limits, strength symmetrical, no focal deficits Psych-normal affect, normal mood Discharge Data Allergies Allergy/AdvReac Type Severity Reaction Status Date / Time ofloxacin [From Floxin] Allergy Intermediate itching Verified 09/28/23 16:52 Quinolones Allergy Intermediate Itchiness Verified 09/28/23 16:52 sulfamethoxazole Allergy Intermediate Rash Verified 09/28/23 16:52 trimethoprim Allergy Intermediate Rash Verified 09/28/23 16:52 Consultations 09/28/23 16:33 ED Decision to Admit Stat 09/28/23 17:58 Consult Nephrology Stat 09/28/23 20:42 Consult Cardiology Routine 09/30/23 10:22 Consult Liquefaction Plant Operator Routine 10/04/23 15:06 Consult Vascular Surgery Routine Procedures Performed Operation Date: 10/06/23 15:10 Actual Procedures p Insertion of Perm Catheter, Right Internal Jugular Approach, Ultrasound Localization of Right Internal Jugular Vein, Fluoroscopy for Positioning, Moderate Sedation [id number] - Ed Howard MD Ordered Studies 09/28/23 22:12 US renal/blad retro comp Routine 09/29/23 14:06 US hemodialysis fistula Routine 09/30/23 10:28 US point of care ultrasound Routine 10/06/23 07:11 EV cvc 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 A temporary hemodialysis catheter was placed on September 29 because his AV fistula could not be cannulated and it was subsequently removed on October 05 after placement of the permacath. He underwent permacath placement on October 05. Appreciate nephrology and vascular surgery consultations and recommendations. (2) Hyperkalemia: Potassium 5.6 on admission. Now resolved with dialysis. Serial labs (3) Acute respiratory failure with hypoxia: Due to underlying CHF. He is on 2 L of oxygen per nasal cannula. This will eventually be weaned off (4) Heart failure with mildly reduced ejection fraction (HFmrEF): Acute decompensated systolic congestive heart failure/congestive heart failure with reduced ejection fraction present on admission. Appears to have resolved with dialysis. Will repeat portable chest x-ray again tomorrow, October 07. Nephrology has been started po bumex on 10/02/23 (5) Type 2 diabetes mellitus: Controlled. ADA diet. Sliding scale coverage. Basal insulin therapy (6) Elevated troponin I level: Chronic. No evidence of acute coronary syndrome (7) CAD, multiple vessel: Stable. Continue current medical management Plan Discharge to [facility] today, October 07 Total Time Total Time Spent Total Time Spent (In Minutes): 50 minutes Discharge Plan Discharge Items Patient Disposition: Transfer Inpatient Rehab Fac Reason For Visit: ABDOULAYE Discharge Diagnosis: End-stage renal disease, acute on chronic combined systolic and diastolic congestive heart failure, acute hypoxic respiratory failure Activity: Resume your previous activity Non-emergency contact: Primary Care Provider and Director Business Intelligence Call non-emergency contact if: you have any medication questions and your symptoms worsen Follow-up/Referrals: Leah Wolf DO [Primary Care Provider] - Diet: Carb Consistent or DM2 and Dialysis Renal Addtl Attending Provider Instructions: Take all medications as directed. Hemodialysis per nephrology schedule. NPH insulin is now 12 units twice daily Pending Studies at Discharge: No Stand-Alone Forms: My [facility] [employer] Skilled Items Patient informed of condition?: Yes DNR: Yes Discharge Level of Care: Acute rehab Communicable Disease: No Discharge Prognosis: Stable Lines: None Urinary Catheter: No Medications and DC Order Prescriptions: New bumetanide 1 mg tablet 1 mg PO BID Qty: 1 0RF Novolin N NPH U-100 Insulin 100 unit/mL Suspension 12 unit SC BIDM Qty: 0 0RF Continued ascorbic acid (vitamin C) 500 mg capsule 500 mg PO QAM tramadol 50 mg tablet 50 mg PO DAILY Qty: 30 0RF ondansetron 4 mg tablet,disintegrating 4 mg PO Q8H PRN (Reason: nausea and vomiting) Qty: 30 5RF ropinirole 1 mg tablet See Rx Instructions .ROUTE .COMPLEX Rx Instructions: orally ;1 in morning, 1 mid day, 3 in the evening orally at bedtime; latanoprost [Xalatan] 0.005 % Drops 1 drp OPB HS cholecalciferol (vitamin D3) [Vitamin D3] 50 mcg (2,000 unit) capsule 2,000 units PO QAM brimonidine 0.2 % drops 1 drp OPB BID Rx Instructions: BOTH EYES timolol maleate 0.5 % gel forming solution 1 drp OPB BID dorzolamide 2 % drops 1 drp OPB BID cyanocobalamin (vitamin B-12) 500 mcg Tablet 1,000 mcg PO QAM Qty: 0 0RF Humulin R Regular U-100 Insuln 100 unit/mL solution 1 sliding scale dose subcut USEASDIRECTD Qty: 10 0RF Rx Instructions: 11AM docusate sodium 100 mg Capsule 100 mg PO BID Qty: 0 0RF polyethylene glycol 3350 [Miralax] 17 gram Powder In Packet 17 g PO BID Qty: 0 0RF hydralazine 25 mg Tablet 75 mg PO TID 90 Days Qty: 810 0RF atorvastatin [Lipitor] 80 mg tablet 80 mg PO QAM Qty: 90 1RF isosorbide mononitrate 30 mg Tablet Extended Release 24 Hr 30 mg PO QAM 90 Days Qty: 90 0RF aspirin 81 mg Tablet,Delayed Release (Dr/Ec) 81 mg PO QAM Qty: 90 0RF trazodone 100 mg Tablet 100 mg PO HS Qty: 30 0RF sertraline 50 mg tablet 50 mg PO DAILY Qty: 90 0RF metoprolol succinate 25 mg Tablet Extended Release 24 Hr 25 mg PO QAM Qty: 90 0RF calcitriol 0.5 mcg capsule 1 mcg PO QAM Qty: 60 0RF Discontinued Novolin N NPH U-100 Insulin 100 unit/mL suspension 20 unit subcut BID Qty: 10 0RF bumetanide 2 mg tablet 2 mg PO BID Qty: 60 3RF Discharge Orders: Discharge Order- CHF (Routine); Ordered 10/08/23 Ordered By: Gregorio Mckeon/Other Patient Handouts: Managing Type 1 Diabetes Admission Data Admit Date/Time: 09/28/23 18:00 Attending Provider: Gregorio Avalos Admit Provider: [place] Primary Care Provider: Leah Wolf Other Providers: Gigi Gurrola [facility]; [facility]; [place]; Mono Billings; Umair Krause; Junior Gonzales; Ed Howard Coding Level of Care Code 69251 INP/OBS DISCH >30 MIN Diagnoses Acute kidney injury superimposed on chronic kidney disease N17.9; N18.9 Hyperkalemia E87.5 Acute respiratory failure with hypoxia J96.01 Heart failure with mildly reduced ejection fraction (HFmrEF) I50.22 Type 2 diabetes mellitus E11.9 Elevated troponin I level R79.89 CAD, multiple vessel I25.10
[2023-10-08] MEDS: INSULIN HUMAN NPH SC SCH (16:44)
== END 2023-10-08 18:00 | DRG 673 ==
LOC: ED 15:12 → EDINP 18:00 → SUATTDRO 18:00 → 4W 20:19

== ENCOUNTER 2023-11-06 00:55 | Inpatient (IN) ==
--- OUTSIDE RECORDS SUMMARY | 2023-11-06 01:46 | External Medical Summary ---
Author Name Unknown Address Unknown Organization [id number] [address] [place] [id number] Laboratory Report Ordering Provider Test Date Status HY,DEPAMPHILIS 10/16/2023 07:20:51 Final Observation Date Value Abnormality Reference (Units ) Status BUN 10/16/2023 07:20:51 48 Above high normal 6-20 (mg/dL) Final Creatinine 10/16/2023 07:20:51 2.8 Above high normal 0.6-1.2 (mg/dL) Final Glomerular filtration rate/1.73 sq M.predicted [Volume Rate/Area] in Serum, Plasma or Blood by Creatinine-based formula (CKD-EPI) 10/16/2023 07:20:51 23 Below low normal >=60 (mL/min) Final eGFR is calculated based on the CKD-EPI 2020 equation Sodium 10/16/2023 07:20:51 136 135-146 (m mol/L) Final Potassium 10/16/2023 07:20:51 4.4 3.5-5.1 (m mol/L) Final Cl 10/16/2023 07:20:51 101 98-107 (mm ol/L) Final CO2 10/16/2023 07:20:51 20 Below low normal 22- 32 (mmol/L) Final Anion gap 10/16/2023 07:20:51 15 7-15 (mmol /L) Final Glucose 10/16/2023 07:20:51 75 70-120 (mg /dL) Final Calcium 10/16/2023 07:20:51 9.0 8.4-10.2 ( mg/dL) Final Performing Location [facility] [address] [place] [id number]
--- OUTSIDE RECORDS SUMMARY | 2023-11-06 01:46 | External Medical Summary ---
Author Name Unknown Address Unknown Organization [facility] [address] [place] [id number] Laboratory Report Ordering Provider Test Date Status HY,DEPAMPHILIS 10/16/2023 07:20:51 Final Observation Date Value Abnormality Reference (Units ) Status WBC, Total 10/16/2023 07:20:51 6.43 4.00-10.8 0 (K/uL) Final RBC 10/16/2023 07:20:51 3.44 4.50-5.25 (M/uL) Final Hemoglobin 10/16/2023 07:20:51 10.8 Below low normal 14 .0-16.8 (g/dL) Final HCT 10/16/2023 07:20:51 33.7 Below low normal 40. 0-48.4 (%) Final MCV 10/16/2023 07:20:51 98.0 82.0-99.5 (fL) Final MCH 10/16/2023 07:20:51 31.4 27.0-34.0 (pg) Final MCHC 10/16/2023 07:20:51 32.0 32.0-36.0 (g/dL) Final RDW 10/16/2023 07:20:51 15.0 11.5-15.5 (%) Final Platelets 10/16/2023 07:20:51 75 Below low normal 140 -400 (K/uL) Final MPV 10/16/2023 07:20:51 14.4 6.6-11.1 ( fL) Final Performing Location [facility] [address] [place] [id number]
[2023-11-06 01:55] LABS: Basophils # (auto) 0.03 K/uL (0.00-0.20); Basophils % (auto) 0.3 %; Eosinophils # (auto) 0.24 K/uL (0.00-0.50); Eosinophils % (auto) 2.8 %; Hematocrit (blood only) 29.1 % (42.0-52.0); Hemoglobin 9.7 g/dl (14.0-18.0); Immature Granulocytes # (auto) 0.03 K/uL (0.01-0.20); Immature Granulocytes % (auto) 0.3 %; Lymphocytes # (auto) 0.45 K/uL (1.20-3.40); Lymphocytes % (auto) 5.2 %; Mean Corpuscular Hemoglobin 31.2 pg (25.0-34.0); Mean Corpuscular Hgb Conc 33.3 g/dL (32.0-36.0); Mean Corpuscular Volume 93.6 fL (80.0-100.0); Mean Platelet Volume 13.7 fL (9.4-12.4); Monocytes # (auto) 0.83 K/uL (0.11-0.59); Monocytes % (auto) 9.7 %; Neutrophils % (auto) 81.7 %; Platelet Count 97 K/uL (130-400); RDW Coefficient of Variation 15.2 % (11.5-14.5); RDW Standard Deviation 52.6 fL (36.4-46.3); Red Blood Count 3.11 M/uL (4.70-6.10); White Blood Count 8.58 K/ul (4.8-10.8)
[2023-11-06 02:19] LABS: Albumin Globulin Ratio 1.5 (0.9-2); Albumin Level 3.7 gm/dl (3.4-5.0); BUN Creatinine Ratio 12.1 (10-20); Bilirubin,Total 0.7 mg/dl (0.2-1.0); Creatinine Clr Calc Pharmacy 18.6 ml/min; Est GFR (African American) 14.6 ml/min; Est GFR (Non-African American) 12.6 ml/min; Globulin 2.5 gm/dl (2.5-4.0); Magnesium 1.9 mg/dl (1.7-2.4); Potassium 4.1 mmol/L (3.5-5.1); Total Protein 6.2 gm/dl (6.0-8.3); Troponin I High Sensitivity 41.7 pg/ml (0-20)
[2023-11-06 02:28] LABS: INR 1.2 (0.9-1.1); Prothrombin Time 12.9 Seconds (9.0-12.0)
[2023-11-06] MEDS: DEXTROSE 50% 50 ML SYRINGE IV ONE ×3 (02:29→04:56)
[2023-11-06 02:36] LABS: Adenovirus PCR Not Detected (NotDetected); Bordetella parapertussis PCR Not Detected (NotDetected); Bordetella pertussis PCR Not Detected (NotDetected); Chlamydia pneumoniae PCR Not Detected (NotDetected); Coronavirus 229E PCR Not Detected (NotDetected); Coronavirus CoV-2 (COVID19)PCR DETECTED (NotDetected); Coronavirus HKU1 PCR Not Detected (NotDetected); Coronavirus NL63 PCR Not Detected (NotDetected); Coronavirus OC43PCR Not Detected (NotDetected); Human Metapneumovirus PCR Not Detected (NotDetected); Influenza A PCR Not Detected (NotDetected); Influenza B PCR Not Detected (NotDetected); Mycoplasma pneumoniae PCR Not Detected (NotDetected); Parainfluenza Virus 1 PCR Not Detected (NotDetected); Parainfluenza Virus 2 PCR Not Detected (NotDetected); Parainfluenza Virus 3 PCR Not Detected (NotDetected); Parainfluenza Virus 4 PCR Not Detected (NotDetected); Respiratory Syncytial VirusPCR Not Detected (NotDetected); Rhinovirus/Enterovirus PCR Not Detected (NotDetected)
[2023-11-06 03:18] LABS: Phosphorus 4.9 mg/dl (2.5-4.9)
[2023-11-06 03:51] LABS: iSTAT Arterial Blood Gas HCO3 24 meg/L (19-24); iSTAT Arterial Blood Gas pCO2 39 mmHg (35-46); iSTAT Arterial Blood Gas pH 7.39 (7.35-7.45); iSTAT Arterial Blood Gas pO2 91 mmHg (80-95); iSTAT Carbon Dioxide 25 mmol/L (24-31); iSTAT Hematocrit 28 % (42-52); iSTAT Hemoglobin 9.5 g/dl (14.0-18.0); iSTAT Sodium 136 mmol/L (135-144)
[2023-11-06] MEDS: BUMETANIDE 1 MG in SYRINGE 0 ML IV ONE (03:54)
--- NOTE | 2023-11-06 04:35 | History & Physical Report ---
Date of Service November 06, 2023 Assessment & Plan (1) Acute respiratory failure with hypoxia: (2) (HFpEF) heart failure with preserved ejection fraction: (3) COVID-19: (4) ESRD on dialysis: (5) Anemia of chronic disease: (6) Cellulitis of right lower extremity: (7) Hx of left BKA: (8) CAD, multiple vessel: Plan Acute respiratory failure with hypoxia/CHF exacerbation/ESRD in need of dialysis/COVID-19 infection- Continue BiPAP, follow serial ABG. Taper downward as symptoms improve CHF exacerbation/ESRD in need of dialysis- Hold oral medications, as patient unable to take at this time Consults nephrology, Dr. Billings is on for Dr. Richardson Patient was given Bumex IV, but unlikely to make significant difference in fluid balance Troponin 41.7, BNP greater than 4700.. Troponin has not been less than 34.1 over the past year Hypoglycemia in the setting of diabetes mellitus- Glucose was ranging in the 40s to 50s in the ED Patient was given several treatments with 50 mL amps of D50, until glucose is above 100 Will check sugars every 4 hours, continue hypoglycemic protocol Placed on Accu-Cheks with NovoLog SSI Hold all forms of insulin at this time Likely brought on by continued use of insulin with his usual dosages, and poor oral intake due to being ill COVID-19 infection- Placed on dexamethasone 10 mg IV now, and then 6 mg IV every morning Not a candidate for remdesivir due to kidney dysfunction Continue BiPAP as above DuoNebs every 2 hours as needed Ventricular bigeminy- EKG unchanged from 09/29/2023 Right lower extremity cellulitis/left BKA- Placed on cefepime 2 g IV every 12 hours Relatively mild infection History of Present Illness Chief Complaint: The patient was brought to the emergency department by EMS due to increasing shortness of breath that began earlier in the evening. 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 The patient contacted EMS due to concerns regarding increasing shortness of breath that began earlier in the evening. He denies any recent travels or sick exposures. He does go to dialysis on Wednesday, and Wednesday, and has not missed any dialysis states. In the emergency department, he was found to be hypoxic, and was placed on BiPAP with improvement in oxygenation. Chest x-ray showed CHF/fluid overload, and patient did undergo a BioFire test which was positive for COVID- 19. Allergies Allergy/AdvReac Type Severity Reaction Status Date / Time ofloxacin [From Floxin] Allergy Intermediate itching Verified 10/12/23 09:23 Quinolones Allergy Intermediate Itchiness Verified 10/12/23 09:23 sulfamethoxazole Allergy Intermediate Rash Verified 10/12/23 09:23 trimethoprim Allergy Intermediate Rash Verified 10/12/23 09:23 Home Medications Medication Instructions Recorded Confirmed Type latanoprost 0.005 % eye drops 1 drp OPB HS 12/27/17 10/12/23 History (Xalatan) brimonidine 0.2 % eye drops 1 drp OPB BID 12/07/20 10/12/23 History dorzolamide 2 % eye drops 1 drp OPB BID 12/07/20 10/12/23 History timolol maleate 0.5 % eye gel 1 drp OPB BID 12/07/20 10/12/23 History forming solution docusate sodium 100 mg capsule 100 mg PO BID #0 caps 09/03/23 10/12/23 Rx polyethylene glycol 3350 17 gram 17 g PO BID #0 ea 09/03/23 10/12/23 Rx oral powder packet (Miralax) tramadol 50 mg tablet 50 mg PO DAILY #30 tabs 09/08/23 10/12/23 Rx calcitriol 0.5 mcg capsule 1 mcg (2 x 0.5 mcg) PO QAM #60 caps 09/17/23 10/12/23 Rx aspirin 81 mg tablet,delayed 81 mg PO QAM #90 tabs 11/04/23 Rx release atorvastatin 80 mg tablet (Lipitor) 80 mg PO DAILY #90 tabs 11/04/23 Rx bumetanide 1 mg tablet 1 mg PO BID #180 tabs 11/04/23 Rx hydralazine 25 mg tablet 75 mg (3 x 25 mg) PO TID 90 days 11/04/23 Rx #810 tabs insulin NPH isoph U-100 human 100 18 unit (0.18 mL) SC BIDM #10 mL 11/04/23 Rx unit/mL subcutaneous suspension (Novolin N NPH U-100 Insulin isophane) insulin regular human 100 unit/mL 1 sliding scale dose subcut 11/04/23 Rx injection solution (Humulin R USEASDIRECTD #10 mL Regular U-100 Insulin) isosorbide mononitrate 30 mg 30 mg PO QAM 90 days #90 tabs 11/04/23 Rx tablet,extended release 24 hr metoprolol succinate 25 mg 25 mg PO QAM #90 tabs 11/04/23 Rx tablet,extended release 24 hr ondansetron 4 mg disintegrating 4 mg PO Q8H PRN nausea and 11/04/23 Rx tablet vomiting #30 tabs ropinirole 1 mg tablet See Rx Instructions .Route 11/04/23 Rx .COMPLEX #450 tabs sertraline 50 mg tablet 50 mg PO DAILY #90 tabs 11/04/23 Rx trazodone 100 mg tablet 100 mg PO HS #90 tabs 11/04/23 Rx ascorbic acid (vitamin C) 500 mg 500 mg PO QAM #90 caps 11/05/23 Rx capsule cholecalciferol (vitamin D3) 50 2,000 unit PO QAM #90 caps 11/05/23 Rx mcg (2,000 unit) capsule (Vitamin D3) cyanocobalamin (vitamin B-12) 500 1,000 mcg (2 x 500 mcg) PO QAM 11/05/23 Rx mcg tablet #180 tabs Past Med/Surg History Problem List (Updated 11/06/23 @ 06:49 by Tad Dumont MD) Hx of left BKA CAD, multiple vessel s/p CABG x4 (2011) ESRD on dialysis COVID-19 (Acute) CKD (chronic kidney disease) (Acute) Dyspnea (Acute) Ventricular bigeminy (HFpEF) heart failure with preserved ejection fraction Acute respiratory failure with hypoxia ESRD (end stage renal disease) Hyperkalemia (Acute) Anemia of chronic disease SOB (shortness of breath) (Acute) Cellulitis (Acute) Hypoxia (Acute) Right leg swelling Diabetes, type I Constipation Hypokalemia Generalized weakness Cellulitis of right lower extremity Nausea Abrasion of multiple sites of right lower extremity Hypoxia (Acute) Chronic seborrheic dermatitis Status post below knee amputation of left lower extremity Generalized pruritus Grief History of colon polyps Impotence, organic Vitamin D deficiency Tubular adenoma of colon History of CVA (cerebrovascular accident) PT DENIES Glaucoma Peripheral positional vertigo Keloid scar of skin (Acute) Lower extremity edema (Chronic) Insomnia Nephrotic syndrome Diverticulosis hx Dyslipidemia Mild obstructive sleep apnea "Mild" > no device 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 DDD (degenerative disc disease), lumbar Medical History Chronic combined systolic and diastolic heart failure Depression Chronic kidney disease, stage 4 (severe) Diabetic peripheral 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 Restless leg syndrome Type 2 diabetes mellitus Ventricular bigeminy 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, with long-term current use of insulin (HFpEF) heart failure with preserved ejection fraction Pressure ulcer of BKA stump, stage 3 RESOLVED Influenza A virus subtype H1 2008 pandemic strain present Slow to wake up after anesthesia Wound of lower extremity RLE wound "improved" per 01/27/21 wound clinic visit ([facility]); surgeon aware of patient's wound hx per 01/2021 office visit note; "only has a little scab there now, keeps it covered to protect it." GERD (gastroesophageal reflux disease) History of TIA (transient ischemic attack) ~2009>over his left eye, no residual symptoms Surgical History S/P arteriovenous (AV) fistula creation left>no currently having dialysis History of esophagogastroduodenoscopy (EGD) History of colonoscopy S/P lumbar laminectomy S/P foot surgery S/P eye surgery B/L x3 (for glaucoma) S/P CABG x 4 (2011) CABG x4 (2011), [facility]; f/u PCP History of lumbar discectomy History of tonsillectomy Family History Father , age 78 with prostate cancer Colorectal cancer Cardiovascular disease Diabetes Prostate cancer Grandmother (Maternal) Diabetes Mother , age 54 of throat cancer Throat cancer Denies family history of Ovarian cancer Myocardial infarction Breast cancer Social History Smoking Status: Unknown if ever smoked Second Hand Exposure: No; Do You Dip or Chew Tobacco: No; Hx Alcohol Use: No Hx Substance Use: No Preferred Language: Maltese Communication Ability: Effective Visual Impairment: No Limitations Hearing Ability: Normal Cafe Assistant Required: No Beliefs That Will Affect Care: None marital status: / marital status details: lost August 2021 Current Living Situation: Alone current occupational status: retired current occupation: How many Children do You have: 2 other: Retired age 63-1/2. Feels Safe at Home: Yes Childhood Exposure to Second-Hand Smoke: No Diet: regular caffeine: No during the past year weight has: remained stable Dental Care, Regularly: Yes Physical Activity Frequency: Other Physical Activity Frequency Comment: limited d/t disability Seatbelt Use: always Sunscreen Use: Yes Assistive Devices: Scooter/Electric Scooter, Walker and Wheelchair Review of Systems Review of Systems: Patient was unable to contribute to review of systems or HPI during my examination, due to somnolence on BiPAP Physical Exam Physical Exam: The patient is somnolent, on BiPAP, normocephalic and atraumatic HEENT--PERRL, EOMI, mucous membranes and oropharynx dry. Neck--supple. No JVD. No bruits. Thyroid normal, trachea midline, no adenopathy. Heart--normal S1 and S2. No murmurs, rubs or gallops. Lungs--crackles at the bases bilaterally. Abdomen--normal bowel sounds and soft. Obese. Extremities-- No edema. Dermatologic--normal skin turgor, normal color, no abnormal lymph nodes, no rash. Neurologic--cranial nerves II through XII grossly intact. Rheumatologic--limited exam Psychiatric--somnolent Results & Data Results & Data Vital Signs (Past 12 Hours) Vital Signs Temp Pulse Resp BP Pulse Ox O2 Del Method FiO2 11/06/23 04:03 59 L 23 100 30 11/06/23 03:03 59 L 17 11/06/23 03:00 131/54 L 11/06/23 03:00 131/54 L 11/06/23 02:42 55 L 23 11/06/23 02:30 61 23 11/06/23 02:01 149/94 H 07/27/24 02:01 149/94 H 11/06/23 02:00 63 22 11/06/23 02:00 60 21 97 30 11/06/23 01:33 63 35 H 11/06/23 01:33 Room Air 11/06/23 01:31 144/75 H 11/06/23 01:24 63 23 11/06/23 01:14 36.9 C 61 21 137/76 94 Room Air 11/06/23 01:06 64 28 H 93 11/06/23 01:06 151/68 H 11/06/23 01:05 68 11/06/23 01:03 63 27 H 94 11/06/23 01:00 137/76 11/06/23 01:00 137/76 11/06/23 01:00 137/76 Laboratory Results Laboratory Results WBC 8.58 K/ul (4.8-10.8) 11/06/23 01:33 RBC 3.11 M/uL (4.70-6.10) L 11/06/23 01:33 Hgb 9.7 g/dl (14.0-18.0) L 11/06/23 01:33 POC Hgb 9.5 g/dl (14.0-18.0) L 11/06/23 03:36 Hct 29.1 % (42.0-52.0) L 11/06/23 01:33 POC Hct 28 % (42-52) L 11/06/23 03:36 MCV 93.6 fL (80.0-100.0) 11/06/23 01:33 MCH 31.2 pg (25.0-34.0) 11/06/23 01:33 MCHC 33.3 g/dL (32.0-36.0) 11/06/23 01:33 RDW Std Deviation 52.6 fL (36.4-46.3) H 11/06/23 01:33 RDW Coeff of Jose 15.2 % (11.5-14.5) H 11/06/23 01:33 Plt Count 97 K/uL (130-400) L 11/06/23 01:33 MPV 13.7 fL (9.4-12.4) H 11/06/23 01:33 Immature Gran % (Auto) 0.3 % 11/06/23 01:33 Neut % (Auto) 81.7 % 11/06/23 01:33 Lymph % (Auto) 5.2 % 11/06/23 01:33 Hickman % (Auto) 9.7 % 11/06/23 01:33 Eos % (Auto) 2.8 % 11/06/23 01:33 Baso % (Auto) 0.3 % 11/06/23 01:33 Neut # (Auto) 7.00 K/uL (1.40-6.50) H 11/06/23 01:33 Lymph # (Auto) 0.45 K/uL (1.20-3.40) L 11/06/23 01:33 Hickman # (Auto) 0.83 K/uL (0.11-0.59) H 11/06/23 01:33 Eos # (Auto) 0.24 K/uL (0.00-0.50) 11/06/23 01:33 Baso # (Auto) 0.03 K/uL (0.00-0.20) 11/06/23 01:33 Immature Gran # (Auto) 0.03 K/uL (0.01-0.20) 11/06/23 01:33 PT 12.9 Seconds (9.0-12.0) H 11/06/23 01:33 INR 1.2 (0.9-1.1) H 11/06/23 01:33 POC pH 7.39 (7.35-7.45) 11/06/23 03:36 POC pCO2 39 mmHg (35-46) 11/06/23 03:36 POC pO2 91 mmHg (80-95) 11/06/23 03:36 POC HCO3 24 lakshmi/L (19-24) 11/06/23 03:36 POC Total CO2 25 mmol/L (24-31) 11/06/23 03:36 POC Base Excess -1.0 lakshmi/L (-9-1.8) 11/06/23 03:36 POC ABG O2 Sat 97.0 % (90-95) H 11/06/23 03:36 POC Sodium 136 mmol/L (135-144) 11/06/23 03:36 Sodium 136 mmol/L (136-145) 11/06/23 01:33 POC Potassium 4.0 mmol/L (3.3-5.0) 11/06/23 03:36 Potassium 4.1 mmol/L (3.5-5.1) 11/06/23 01:33 Chloride 103 mmol/L (98-107) 11/06/23 01:33 Carbon Dioxide 23 mmol/L (21-32) 11/06/23 01:33 Anion Gap 10 (3-11) 11/06/23 01:33 BUN 52 mg/dl (6-23) H 11/06/23 01:33 Creatinine 4.29 mg/dl (0.6-1.4) H 11/06/23 01:33 Est Cr Clr Drug Dosing 18.6 ml/min 11/06/23 01:33 Est GFR ( Amer) 14.6 ml/min 11/06/23 01:33 Est GFR (Non-Af Amer) 12.6 ml/min 11/06/23 01:33 BUN/Creatinine Ratio 12.1 (10-20) 11/06/23 01:33 Glucose 48 mg/dl (70-99(Fasting)) L* 11/06/23 01:33 POC Glucose 112 mg/dl (70-99) H 11/06/23 06:20 Calcium 9.0 mg/dl (8.6-10.3) 11/06/23 01:33 Phosphorus 4.9 mg/dl (2.5-4.9) 11/06/23 01:33 Magnesium 1.9 mg/dl (1.7-2.4) 11/06/23 01:33 Total Bilirubin 0.7 mg/dl (0.2-1.0) 11/06/23 01:33 AST 20 U/L (13-39) 11/06/23 01:33 ALT 28 U/L (7-52) 11/06/23 01:33 Alkaline Phosphatase 87 U/L (34-104) 11/06/23 01:33 Troponin I High Sens 41.7 pg/ml (0-20) H 11/06/23 01:33 B-Natriuretic Peptide > 4700 pg/ml (0-100) H 11/06/23 01:33 Total Protein 6.2 gm/dl (6.0-8.3) 11/06/23 01:33 Albumin 3.7 gm/dl (3.4-5.0) 11/06/23 01:33 Globulin 2.5 gm/dl (2.5-4.0) 11/06/23 01:33 Albumin/Globulin Ratio 1.5 (0.9-2) 11/06/23 01:33 Lipase 64 U/L (11-82) 11/06/23 01:33 Adenovirus (PCR) Not Detected (NotDetected) 11/06/23 01:16 B. pertussis DNA (PCR) Not Detected (NotDetected) 11/06/23 01:16 B.parapertussis DNA PCR Not Detected (NotDetected) 11/06/23 01:16 C. pneumoniae DNA (PCR) Not Detected (NotDetected) 11/06/23 01:16 Coronavirus OC43 (PCR) Not Detected (NotDetected) 11/06/23 01:16 Coronavirus HKU1 (PCR) Not Detected (NotDetected) 11/06/23 01:16 Coronavirus 229E (PCR) Not Detected (NotDetected) 11/06/23 01:16 SARS-CoV-2 (PCR) DETECTED (NotDetected) A 11/06/23 01:16 Coronavirus NL63 (PCR) Not Detected (NotDetected) 11/06/23 01:16 Human Metapneumovir PCR Not Detected (NotDetected) 11/06/23 01:16 Influenza Type A (PCR) Not Detected (NotDetected) 11/06/23 01:16 Influenza Type B (PCR) Not Detected (NotDetected) 11/06/23 01:16 M. pneumoniae (PCR) Not Detected (NotDetected) 11/06/23 01:16 Parainfluenza 1 (PCR) Not Detected (NotDetected) 11/06/23 01:16 Parainfluenza 2 (PCR) Not Detected (NotDetected) 11/06/23 01:16 Parainfluenza 3 (PCR) Not Detected (NotDetected) 11/06/23 01:16 Parainfluenza 4 (PCR) Not Detected (NotDetected) 11/06/23 01:16 RSV (PCR) Not Detected (NotDetected) 11/06/23 01:16 Entero/Rhino (PCR) Not Detected (NotDetected) 11/06/23 01:16 Code Status & VTE Plan Code Status Full code VTE Prophylaxis Plan VTE Prophylaxis will be ordered: Yes PG Care Time/CCT Total # of Minutes Spent Total Time Spent with Patient: Total time spent is greater than 50% in coordination of care (as documented) at patient's floor/unit and/or counseling patient: Coding Level of Care Code 19592 INT INP/OBS CARE 3/75MIN Diagnoses Acute respiratory failure with hypoxia J96.01 Chronic heart failure with preserved ejection fraction I50.32 Heart failure chronicity: chronic COVID-19 U07.1 ESRD on dialysis N18.6; Z99.2 Anemia of chronic disease D63.8 Cellulitis of right lower extremity L03.115 Hx of left BKA Z89.512 CAD, multiple vessel I25.10 (2) (HFpEF) heart failure with preserved ejection fraction Heart failure chronicity: chronic Qualified Code(s): I50.32 - Chronic diastolic (congestive) heart failure
[2023-11-06] MEDS: DEXAMETHASONE SOD INJ 4 MG/ML VIAL IV STA (05:32)
--- NOTE | 2023-11-06 05:40 | Emergency Department Note ---
Impression & Plan Dyspnea, CKD (chronic kidney disease), COVID-19, Hypoglycemia, Wound of lower extremity ED Provider Note ED Provider Note NAME: PATRICK HAAS AGE:73 SEX: Male : 1950 ARRIVES VIA: EMS INFORMANT: Patient ED PROVIDER(s): Emily Martinez DO CHIEF COMPLAINT: Shortness of breath HPI: This is a 73-year-old male presents emergency department due to concern for increased shortness of breath. Patient states symptoms began this evening. He denies any recent fevers, chills, or URI symptoms. Patient does go to dialysis and has a history of kidney disease. He follows with Dr. Vargas. He has not missed any episodes of dialysis and goes Wednesday, , Wednesday. No recent change in his meds and he denies missing any doses of his meds. Patient denies any known sick contacts. He denies any dietary indiscretion. He denies any accompanying chest pain, headaches, dizziness, abdominal pain, change in bowel movements, or change in urine. Patient states he does have a smaller amount of urine output daily since he started dialysis several months ago. PAST MEDICAL HISTORY:See Below PAST SURGICAL HISTORY:See Below FAMILY HISTORY:See Below SOCIAL HISTORY:See Below HOME MEDICATIONS:See Below ALLERGIES:See Below VITALS:See Below PHYSICAL EXAMINATION: GENERAL: alert, well appearing, well nourished, no distress, non-toxic EYE EXAM: normal conjunctiva, PERRL and EOM's grossly intact OROPHARYNX: no exudate, no erythema, lips, buccal mucosa, and tongue normal and mucous membranes are moist NECK: supple, no nuchal rigidity, no adenopathy, non-tender LUNGS: Clear to auscultation. Normal chest wall mechanics, no w/r/r, mild tachypnea, no significant respiratory distress HEART: no murmurs, S1 normal and S2 normal, dialysis catheter noted right anterior superior chest wall ABDOMEN: abdomen soft, non-tender, normo-active bowel sounds, no masses, no rebound or guarding. SKIN: no rashes, petechiae, orbruising UPPER EXTREMITIES: upper extremities are grossly normal. FROM, nml pulses b/l. LOWER EXTREMITIES: 1+ RLE pitting edema. Multiple superficial wounds with mild surrounding erythema noted to the RLE. No crepitus, compartments soft. FROM, nml pulses b/l. LLE BKA patient wearing prosthetic. NEURO EXAM: Normal sensorium, cranial nerves II-XII grossly intact, normal speech, no facial droop,nogross weakness of arms, no gross weakness of legs. Gross sensation intact. No ataxia. Vital Signs: reviewed and remarkable Differential Diagnosis: pneumonia, bronchitis, COPD/Asthma exacerbation, pneumothorax, pulmonary embolism, congestive heart failure, acute coronary syndrome, as well as others were considered MEDICAL DECISION MAKING: This is a 73-year-old male presents emergency department due to increased shortness of breath. Patient did appear tachypneic on arrival with increased work of breathing although no hypoxia. Patient does have a history of CKD but has not missed any dialysis treatments. He was afebrile and vital signs stable. Labs drawn and sent, IV established, EKG and chest ray performed bedside interpreted by me and patient monitored on telemetry. Due to continued complaints of increased shortness of breath, we did try to reposition the patient as he felt it was worse lying down. Despite sitting upright he continued to state he felt like it was hard to breathe so RT was contacted to bring BiPAP to bedside. Chest x-ray to my eye was similar compared to prior although given his history of CKD and need for dialysis later this morning, I did have an increase suspicion for evolving pulmonary edema. Patient was noted to be hypoglycemic here additionally, and was given D50 with improvement. He did begin to trend down in the following hours again. He states he has been compliant with his insulin as he is a known diabetic. He was noted to be anemic however this appears stable relative to prior on review of EMR. BUN and creatinine are abnormal additionally however patient is a known dialysis patient. Patient's troponin and BNP were elevated however unclear if this is secondary to evolving CHF versus his chronic kidney disease. Patient was noted to have episodes of bigeminy initially however as his breathing improved this seemed to resolve. ABG added and was reassuring. Bio fire nasal swab had been sent initially as well, ultimately this was positive for COVID-19. This likely exacerbated patient's underlying other medical conditions contributing to his increased shortness of breath. Patient was improved here on BiPAP, with decreased work of breathing. Case discussed with the hospitalist team for additional evaluation and management. Consultation(s): [id number]: Discussed with Dr. Dumont, [facility] hospitalist team, for additional evaluation and management. ER Treatment Provided: See below Diagnostics Interpreted By Me: -ECG: Sinus at 66 with first-degree AV block, right bundle branch block, normal axis, nonspecific ST/T wave changes, appearance of bigeminy -Cardiac Monitoring: An order was placed for continuous cardiac monitoring. The monitor shows a rate of 62 with normal sinus rhythm. -Laboratory studies: As stated above and show below. -Imaging studies: cxr: Cardiomegaly, sternotomy wires, dialysis catheter noted, bibasilar effusions, no wide mediastinum, no focal consolidation Triage Nursing Note Reviewed Prior/Outside Records Reviewed Critical Care: Critical care of 48 min performed to assess and manage high likelihood of life- threatening dyspnea, involving labs and imaging performed with assessment to evaluate dyspnea diagnosis with frequent reassessment. This time includes bedside time, treatment discussions with patient/family/consultants, documentation time and excludes procedure time. Past Med/Surg History Problem List (Updated 11/06/23 @ 08:35 by Emily Martinez DO) Wound of lower extremity (Acute) Hypoglycemia (Acute) Hx of left BKA CAD, multiple vessel s/p CABG x4 (2011) ESRD on dialysis COVID-19 (Acute) CKD (chronic kidney disease) (Acute) Dyspnea (Acute) Ventricular bigeminy (HFpEF) heart failure with preserved ejection fraction Acute respiratory failure with hypoxia ESRD (end stage renal disease) Hyperkalemia (Acute) Anemia of chronic disease SOB (shortness of breath) (Acute) Cellulitis (Acute) Hypoxia (Acute) Right leg swelling Diabetes, type I Constipation Hypokalemia Generalized weakness Cellulitis of right lower extremity Nausea Abrasion of multiple sites of right lower extremity Hypoxia (Acute) Chronic seborrheic dermatitis Status post below knee amputation of left lower extremity Generalized pruritus Grief History of colon polyps Impotence, organic Vitamin D deficiency Tubular adenoma of colon History of CVA (cerebrovascular accident) PT DENIES Glaucoma Peripheral positional vertigo Keloid scar of skin (Acute) Lower extremity edema (Chronic) Insomnia Nephrotic syndrome Diverticulosis hx Dyslipidemia Mild obstructive sleep apnea "Mild" > no device 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 DDD (degenerative disc disease), lumbar Medical History Chronic combined systolic and diastolic heart failure Depression Chronic kidney disease, stage 4 (severe) Diabetic peripheral 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 Restless leg syndrome Type 2 diabetes mellitus Ventricular bigeminy 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, with long-term current use of insulin (HFpEF) heart failure with preserved ejection fraction Pressure ulcer of BKA stump, stage 3 RESOLVED Influenza A virus subtype H1 2009 pandemic strain present Slow to wake up after anesthesia Wound of lower extremity RLE wound "improved" per 01/27/21 wound clinic visit ([facility]); surgeon aware of patient's wound hx per 01/2021 office visit note; "only has a little scab there now, keeps it covered to protect it." GERD (gastroesophageal reflux disease) History of TIA (transient ischemic attack) ~2009>over his left eye, no residual symptoms Surgical History S/P arteriovenous (AV) fistula creation left>no currently having dialysis History of esophagogastroduodenoscopy (EGD) History of colonoscopy S/P lumbar laminectomy S/P foot surgery S/P eye surgery B/L x3 (for glaucoma) S/P CABG x 4 (2011) CABG x4 (2011), [facility]; f/u PCP History of lumbar discectomy History of tonsillectomy Family History Father , age 78 with prostate cancer Colorectal cancer Cardiovascular disease Diabetes Prostate cancer Grandmother (Maternal) Diabetes Mother , age 54 of throat cancer Throat cancer Denies family history of Ovarian cancer Myocardial infarction Breast cancer Social History Smoking Status: Unknown if ever smoked Second Hand Exposure: No; Do You Dip or Chew Tobacco: No; Hx Alcohol Use: No Hx Substance Use: No Preferred Language: [place] Communication Ability: Effective Visual Impairment: No Limitations Hearing Ability: Normal Property Management Assistant Required: No Beliefs That Will Affect Care: None marital status: / marital status details: lost August 2021 Current Living Situation: Alone current occupational status: retired current occupation: How many Children do You have: 2 other: Retired age 63-1/2. Feels Safe at Home: Yes Childhood Exposure to Second-Hand Smoke: No Diet: regular caffeine: No during the past year weight has: remained stable Dental Care, Regularly: Yes Physical Activity Frequency: Other Physical Activity Frequency Comment: limited d/t disability Seatbelt Use: always Sunscreen Use: Yes Assistive Devices: Scooter/Electric Scooter, Walker and Wheelchair Allergies Allergies Allergy/AdvReac Type Severity Reaction Status Date / Time ofloxacin [From Floxin] Allergy Intermediate itching Verified 10/12/23 09:23 Quinolones Allergy Intermediate Itchiness Verified 10/12/23 09:23 sulfamethoxazole Allergy Intermediate Rash Verified 10/12/23 09:23 trimethoprim Allergy Intermediate Rash Verified 10/12/23 09:23 Home Meds Home Medications Medication Instructions Recorded Confirmed latanoprost 0.005 % eye drops 1 drp OPB HS 12/27/17 10/12/23 (Xalatan) brimonidine 0.2 % eye drops 1 drp OPB BID 12/07/20 10/12/23 dorzolamide 2 % eye drops 1 drp OPB BID 12/07/20 10/12/23 timolol maleate 0.5 % eye gel 1 drp OPB BID 12/07/20 10/12/23 forming solution Previous Rx's Medication Instructions Recorded docusate sodium 100 mg capsule 100 mg PO BID #0 caps 09/03/23 polyethylene glycol 3350 17 gram 17 g PO BID #0 ea 09/03/23 oral powder packet (Miralax) tramadol 50 mg tablet 50 mg PO DAILY #30 tabs 09/08/23 calcitriol 0.5 mcg capsule 1 mcg (2 x 0.5 mcg) PO QAM #60 caps 09/17/23 aspirin 81 mg tablet,delayed 81 mg PO QAM #90 tabs 11/04/23 release atorvastatin 80 mg tablet (Lipitor) 80 mg PO DAILY #90 tabs 11/04/23 bumetanide 1 mg tablet 1 mg PO BID #180 tabs 11/04/23 hydralazine 25 mg tablet 75 mg (3 x 25 mg) PO TID 90 days 11/04/23 #810 tabs insulin NPH isoph U-100 human 100 18 unit (0.18 mL) SC BIDM #10 mL 11/04/23 unit/mL subcutaneous suspension (Novolin N NPH U-100 Insulin isophane) insulin regular human 100 unit/mL 1 sliding scale dose subcut 11/04/23 injection solution (Humulin R USEASDIRECTD #10 mL Regular U-100 Insulin) isosorbide mononitrate 30 mg 30 mg PO QAM 90 days #90 tabs 11/04/23 tablet,extended release 24 hr metoprolol succinate 25 mg 25 mg PO QAM #90 tabs 11/04/23 tablet,extended release 24 hr ondansetron 4 mg disintegrating 4 mg PO Q8H PRN nausea and 11/04/23 tablet vomiting #30 tabs ropinirole 1 mg tablet See Rx Instructions .Route 11/04/23 .COMPLEX #450 tabs sertraline 50 mg tablet 50 mg PO DAILY #90 tabs 11/04/23 trazodone 100 mg tablet 100 mg PO HS #90 tabs 11/04/23 ascorbic acid (vitamin C) 500 mg 500 mg PO QAM #90 caps 11/05/23 capsule cholecalciferol (vitamin D3) 50 2,000 unit PO QAM #90 caps 11/05/23 mcg (2,000 unit) capsule (Vitamin D3) cyanocobalamin (vitamin B-12) 500 1,000 mcg (2 x 500 mcg) PO QAM 11/05/23 mcg tablet #180 tabs Results & Data (ED) Vital Signs Vital Signs - 24 hr 11/06/23 01:00 11/06/23 01:00 11/06/23 01:00 Temperature Temperature Source Pulse Rate Pulse Rate from SpO2 Sensor Pulse Rhythm Respiratory Rate Respiratory Effort / Characteristics Respiratory Depth Respiratory Pattern Blood Pressure 137/76 137/76 137/76 Blood Pressure Mean 96 96 96 Pulse Oximetry Oxygen Delivery Method Fraction of Inspired Oxygen Sepsis Recent Fever Within 48 Hours Sepsis New/Unexplained Change in Mental Status Sepsis Action Taken by Nursing 11/06/23 01:03 11/06/23 01:05 11/06/23 01:06 Temperature Temperature Source Pulse Rate 63 68 Pulse Rate from SpO2 Sensor 63 Pulse Rhythm Respiratory Rate 27 H Respiratory Effort / Characteristics Respiratory Depth Respiratory Pattern Blood Pressure 151/68 H Blood Pressure Mean 105 Pulse Oximetry 94 Oxygen Delivery Method Fraction of Inspired Oxygen Sepsis Recent Fever Within 48 Hours Sepsis New/Unexplained Change in Mental Status Sepsis Action Taken by Nursing 11/06/23 01:06 11/06/23 01:14 11/06/23 01:24 Temperature 36.9 C Temperature Source Oral Pulse Rate 64 61 63 Pulse Rate from SpO2 Sensor 62 Pulse Rhythm Irregular Respiratory Rate 28 H 21 23 Respiratory Effort / Characteristics Non-Labored Respiratory Depth Respiratory Pattern Blood Pressure 137/76 Blood Pressure Mean 96 Pulse Oximetry 93 94 Oxygen Delivery Method Room Air Fraction of Inspired Oxygen Sepsis Recent Fever Within 48 Hours No Sepsis New/Unexplained Change in Mental Status No Sepsis Action Taken by Nursing No Action Required 11/06/23 01:31 11/06/23 01:33 11/06/23 01:33 Temperature Temperature Source Pulse Rate Pulse Rate from SpO2 Sensor Pulse Rhythm Respiratory Rate Respiratory Effort / Characteristics Non-Labored Respiratory Depth Respiratory Pattern Blood Pressure 144/75 H Blood Pressure Mean 94 Pulse Oximetry Oxygen Delivery Method Room Air Fraction of Inspired Oxygen Sepsis Recent Fever Within 48 Hours Sepsis New/Unexplained Change in Mental Status Sepsis Action Taken by Nursing 11/06/23 01:33 11/06/23 02:00 11/06/23 02:00 Temperature Temperature Source Pulse Rate 63 60 63 Pulse Rate from SpO2 Sensor Pulse Rhythm Respiratory Rate 35 H 21 22 Respiratory Effort / Characteristics Labored Respiratory Depth Respiratory Pattern Blood Pressure Blood Pressure Mean Pulse Oximetry 97 Oxygen Delivery Method Fraction of Inspired Oxygen 30 Sepsis Recent Fever Within 48 Hours Sepsis New/Unexplained Change in Mental Status Sepsis Action Taken by Nursing 11/06/23 02:01 11/06/23 02:01 11/06/23 02:30 Temperature Temperature Source Pulse Rate 61 Pulse Rate from SpO2 Sensor Pulse Rhythm Respiratory Rate 23 Respiratory Effort / Characteristics Respiratory Depth Respiratory Pattern Blood Pressure 149/94 H 149/94 H Blood Pressure Mean 108 108 Pulse Oximetry Oxygen Delivery Method Fraction of Inspired Oxygen Sepsis Recent Fever Within 48 Hours Sepsis New/Unexplained Change in Mental Status Sepsis Action Taken by Nursing 11/06/23 02:42 11/06/23 03:00 11/06/23 03:00 Temperature Temperature Source Pulse Rate 55 L Pulse Rate from SpO2 Sensor Pulse Rhythm Respiratory Rate 23 Respiratory Effort / Characteristics Respiratory Depth Respiratory Pattern Blood Pressure 131/54 L 131/54 L Blood Pressure Mean 93 93 Pulse Oximetry Oxygen Delivery Method Fraction of Inspired Oxygen Sepsis Recent Fever Within 48 Hours Sepsis New/Unexplained Change in Mental Status Sepsis Action Taken by Nursing 11/06/23 03:03 11/06/23 04:00 11/06/23 04:03 Temperature Temperature Source Pulse Rate 59 L 59 L 59 L Pulse Rate from SpO2 Sensor 49 L Pulse Rhythm Respiratory Rate 17 25 H 23 Respiratory Effort / Characteristics Spontaneous Respiratory Depth Normal Respiratory Pattern Regular Blood Pressure 140/78 Blood Pressure Mean 98 Pulse Oximetry 99 100 Oxygen Delivery Method Fraction of Inspired Oxygen 30 Sepsis Recent Fever Within 48 Hours Sepsis New/Unexplained Change in Mental Status Sepsis Action Taken by Nursing Laboratory Data 11/06/23 01:33 11/06/23 01:33 Lab Results 11/06/23 11/06/23 11/06/23 Range/Units 01:16 01:33 02:24 WBC 8.58 (4.8-10.8) K/ul RBC 3.11 L (4.70-6.10) M/uL Hgb 9.7 L (14.0-18.0) g/dl POC Hgb (14.0-18.0) g/dl Hct 29.1 L (42.0-52.0) % POC Hct (42-52) % MCV 93.6 (80.0-100.0) fL MCH 31.2 (25.0-34.0) pg MCHC 33.3 (32.0-36.0) g/dL RDW Std Deviation 52.6 H (36.4-46.3) fL RDW Coeff of Jose 15.2 H (11.5-14.5) % Plt Count 97 L (130-400) K/uL MPV 13.7 H (9.4-12.4) fL Immature Gran % (Auto) 0.3 % Neut % (Auto) 81.7 % Lymph % (Auto) 5.2 % [place] % (Auto) 9.7 % Eos % (Auto) 2.8 % Baso % (Auto) 0.3 % Neut # (Auto) 7.00 H (1.40-6.50) K/uL Lymph # (Auto) 0.45 L (1.20-3.40) K/uL [place] # (Auto) 0.83 H (0.11-0.59) K/uL Eos # (Auto) 0.24 (0.00-0.50) K/uL Baso # (Auto) 0.03 (0.00-0.20) K/uL Immature Gran # (Auto) 0.03 (0.01-0.20) K/uL PT 12.9 H (9.0-12.0) Seconds INR 1.2 H (0.9-1.1) POC pH (7.35-7.45) POC pCO2 (35-46) mmHg POC pO2 (80-95) mmHg POC HCO3 (19-24) lakshmi/L POC Total CO2 (24-31) mmol/L POC Base Excess (-9-1.8) lakshmi/L POC ABG O2 Sat (90-95) % POC Sodium (135-144) mmol/L Sodium 136 (136-145) mmol/L POC Potassium (3.3-5.0) mmol/L Potassium 4.1 (3.5-5.1) mmol/L Chloride 103 (98-107) mmol/L Carbon Dioxide 23 (21-32) mmol/L Anion Gap 10 (3-11) BUN 52 H (6-23) mg/dl Creatinine 4.29 H (0.6-1.4) mg/dl Est Cr Clr Drug Dosing 18.6 ml/min Est GFR ( Amer) 14.6 ml/min Est GFR (Non-Af Amer) 12.6 ml/min BUN/Creatinine Ratio 12.1 (10-20) Glucose 48 L* (70-99(Fasting)) mg/dl POC Glucose 35 L* (70-99) mg/dl Calcium 9.0 (8.6-10.3) mg/dl Phosphorus 4.9 (2.5-4.9) mg/dl Magnesium 1.9 (1.7-2.4) mg/dl Total Bilirubin 0.7 (0.2-1.0) mg/dl AST 20 (13-39) U/L ALT 28 (7-52) U/L Alkaline Phosphatase 87 (34-104) U/L Troponin I High Sens 41.7 H (0-20) pg/ml B-Natriuretic Peptide > 4700 H (0-100) pg/ml Total Protein 6.2 (6.0-8.3) gm/dl Albumin 3.7 (3.4-5.0) gm/dl Globulin 2.5 (2.5-4.0) gm/dl Albumin/Globulin Ratio 1.5 (0.9-2) Lipase 64 (11-82) U/L Adenovirus (PCR) Not Detected (NotDetected) B. pertussis DNA (PCR) Not Detected (NotDetected) B.parapertussis DNA PCR Not Detected (NotDetected) C. pneumoniae DNA (PCR) Not Detected (NotDetected) Coronavirus OC43 (PCR) Not Detected (NotDetected) Coronavirus HKU1 (PCR) Not Detected (NotDetected) Coronavirus 229E (PCR) Not Detected (NotDetected) SARS-CoV-2 (PCR) DETECTED A (NotDetected) Coronavirus NL63 (PCR) Not Detected (NotDetected) Human Metapneumovir PCR Not Detected (NotDetected) Influenza Type A (PCR) Not Detected (NotDetected) Influenza Type B (PCR) Not Detected (NotDetected) M. pneumoniae (PCR) Not Detected (NotDetected) Parainfluenza 1 (PCR) Not Detected (NotDetected) Parainfluenza 2 (PCR) Not Detected (NotDetected) Parainfluenza 3 (PCR) Not Detected (NotDetected) Parainfluenza 4 (PCR) Not Detected (NotDetected) RSV (PCR) Not Detected (NotDetected) Entero/Rhino (PCR) Not Detected (NotDetected) 11/06/23 11/06/23 11/06/23 Range/Units 02:45 03:18 03:19 WBC (4.8-10.8) K/ul RBC (4.70-6.10) M/uL Hgb (14.0-18.0) g/dl POC Hgb (14.0-18.0) g/dl Hct (42.0-52.0) % POC Hct (42-52) % MCV (80.0-100.0) fL MCH (25.0-34.0) pg MCHC (32.0-36.0) g/dL RDW Std Deviation (36.4-46.3) fL RDW Coeff of Jose (11.5-14.5) % Plt Count (130-400) K/uL MPV (9.4-12.4) fL Immature Gran % (Auto) % Neut % (Auto) % Lymph % (Auto) % [place] % (Auto) % Eos % (Auto) % Baso % (Auto) % Neut # (Auto) (1.40-6.50) K/uL Lymph # (Auto) (1.20-3.40) K/uL [place] # (Auto) (0.11-0.59) K/uL Eos # (Auto) (0.00-0.50) K/uL Baso # (Auto) (0.00-0.20) K/uL Immature Gran # (Auto) (0.01-0.20) K/uL PT (9.0-12.0) Seconds INR (0.9-1.1) POC pH (7.35-7.45) POC pCO2 (35-46) mmHg POC pO2 (80-95) mmHg POC HCO3 (19-24) lakshmi/L POC Total CO2 (24-31) mmol/L POC Base Excess (-9-1.8) lakshmi/L POC ABG O2 Sat (90-95) % POC Sodium (135-144) mmol/L Sodium (136-145) mmol/L POC Potassium (3.3-5.0) mmol/L Potassium (3.5-5.1) mmol/L Chloride (98-107) mmol/L Carbon Dioxide (21-32) mmol/L Anion Gap (3-11) BUN (6-23) mg/dl Creatinine (0.6-1.4) mg/dl Est Cr Clr Drug Dosing ml/min Est GFR ( Amer) ml/min Est GFR (Non-Af Amer) ml/min BUN/Creatinine Ratio (10-20) Glucose (70-99(Fasting)) mg/dl POC Glucose 133 H 64 L* 72 (70-99) mg/dl Calcium (8.6-10.3) mg/dl Phosphorus (2.5-4.9) mg/dl Magnesium (1.7-2.4) mg/dl Total Bilirubin (0.2-1.0) mg/dl AST (13-39) U/L ALT (7-52) U/L Alkaline Phosphatase (34-104) U/L Troponin I High Sens (0-20) pg/ml B-Natriuretic Peptide (0-100) pg/ml Total Protein (6.0-8.3) gm/dl Albumin (3.4-5.0) gm/dl Globulin (2.5-4.0) gm/dl Albumin/Globulin Ratio (0.9-2) Lipase (11-82) U/L Adenovirus (PCR) (NotDetected) B. pertussis DNA (PCR) (NotDetected) B.parapertussis DNA PCR (NotDetected) C. pneumoniae DNA (PCR) (NotDetected) Coronavirus OC43 (PCR) (NotDetected) Coronavirus HKU1 (PCR) (NotDetected) Coronavirus 229E (PCR) (NotDetected) SARS-CoV-2 (PCR) (NotDetected) Coronavirus NL63 (PCR) (NotDetected) Human Metapneumovir PCR (NotDetected) Influenza Type A (PCR) (NotDetected) Influenza Type B (PCR) (NotDetected) M. pneumoniae (PCR) (NotDetected) Parainfluenza 1 (PCR) (NotDetected) Parainfluenza 2 (PCR) (NotDetected) Parainfluenza 3 (PCR) (NotDetected) Parainfluenza 4 (PCR) (NotDetected) RSV (PCR) (NotDetected) Entero/Rhino (PCR) (NotDetected) 11/06/23 Range/Units 03:36 WBC (4.8-10.8) K/ul RBC (4.70-6.10) M/uL Hgb (14.0-18.0) g/dl POC Hgb 9.5 L (14.0-18.0) g/dl Hct (42.0-52.0) % POC Hct 28 L (42-52) % MCV (80.0-100.0) fL MCH (25.0-34.0) pg MCHC (32.0-36.0) g/dL RDW Std Deviation (36.4-46.3) fL RDW Coeff of Jose (11.5-14.5) % Plt Count (130-400) K/uL MPV (9.4-12.4) fL Immature Gran % (Auto) % Neut % (Auto) % Lymph % (Auto) % [place] % (Auto) % Eos % (Auto) % Baso % (Auto) % Neut # (Auto) (1.40-6.50) K/uL Lymph # (Auto) (1.20-3.40) K/uL [place] # (Auto) (0.11-0.59) K/uL Eos # (Auto) (0.00-0.50) K/uL Baso # (Auto) (0.00-0.20) K/uL Immature Gran # (Auto) (0.01-0.20) K/uL PT (9.0-12.0) Seconds INR (0.9-1.1) POC pH 7.39 (7.35-7.45) POC pCO2 39 (35-46) mmHg POC pO2 91 (80-95) mmHg POC HCO3 24 (19-24) lakshmi/L POC Total CO2 25 (24-31) mmol/L POC Base Excess -1.0 (-9-1.8) lakshmi/L POC ABG O2 Sat 97.0 H (90-95) % POC Sodium 136 (135-144) mmol/L Sodium (136-145) mmol/L POC Potassium 4.0 (3.3-5.0) mmol/L Potassium (3.5-5.1) mmol/L Chloride (98-107) mmol/L Carbon Dioxide (21-32) mmol/L Anion Gap (3-11) BUN (6-23) mg/dl Creatinine (0.6-1.4) mg/dl Est Cr Clr Drug Dosing ml/min Est GFR ( Amer) ml/min Est GFR (Non-Af Amer) ml/min BUN/Creatinine Ratio (10-20) Glucose (70-99(Fasting)) mg/dl POC Glucose (70-99) mg/dl Calcium (8.6-10.3) mg/dl Phosphorus (2.5-4.9) mg/dl Magnesium (1.7-2.4) mg/dl Total Bilirubin (0.2-1.0) mg/dl AST (13-39) U/L ALT (7-52) U/L Alkaline Phosphatase (34-104) U/L Troponin I High Sens (0-20) pg/ml B-Natriuretic Peptide (0-100) pg/ml Total Protein (6.0-8.3) gm/dl Albumin (3.4-5.0) gm/dl Globulin (2.5-4.0) gm/dl Albumin/Globulin Ratio (0.9-2) Lipase (11-82) U/L Adenovirus (PCR) (NotDetected) B. pertussis DNA (PCR) (NotDetected) B.parapertussis DNA PCR (NotDetected) C. pneumoniae DNA (PCR) (NotDetected) Coronavirus OC43 (PCR) (NotDetected) Coronavirus HKU1 (PCR) (NotDetected) Coronavirus 229E (PCR) (NotDetected) SARS-CoV-2 (PCR) (NotDetected) Coronavirus NL63 (PCR) (NotDetected) Human Metapneumovir PCR (NotDetected) Influenza Type A (PCR) (NotDetected) Influenza Type B (PCR) (NotDetected) M. pneumoniae (PCR) (NotDetected) Parainfluenza 1 (PCR) (NotDetected) Parainfluenza 2 (PCR) (NotDetected) Parainfluenza 3 (PCR) (NotDetected) Parainfluenza 4 (PCR) (NotDetected) RSV (PCR) (NotDetected) Entero/Rhino (PCR) (NotDetected) Administered Medications Dextrose (Dextrose 50% 50 Ml Syringe) 25 - 50 ml IV UD PRN; Protocol PRN Reason: Hypoglycemia Protocol Stop: 12/06/23 06:22 Last Admin: 11/06/23 07:55 Dose: 50 ml Documented By: Insulin Aspart (Insulin Aspart Per Unit Charge) 0 units SC Q6 AR Stop: 12/06/23 06:29 Last Admin: 11/06/23 07:17 Dose: Not Given Documented By: MR Discontinued Medications Dexamethasone (Dexamethasone Sod Inj 4 Mg/Ml Vial) 10 mg IV NOW STA Stop: 11/06/23 04:30 Last Admin: 11/06/23 05:32 Dose: 10 mg Documented By: HH Dextrose (Dextrose 50% 50 Ml Syringe) Confirm Administered Dose 50 ml IV .STK- MED ONE Stop: 11/06/23 02:26 Last Admin: 11/06/23 02:29 Dose: 50 ml Documented By: DENEEN Dextrose (Dextrose 50% 50 Ml Syringe) Confirm Administered Dose 50 ml IV .STK- MED ONE Stop: 11/06/23 04:50 Last Admin: 11/06/23 04:56 Dose: Not Given Documented By: CASTILLO Dextrose (Dextrose 50% 50 Ml Syringe) 50 ml IV NOW ONE Stop: 11/06/23 04:53 Last Admin: 11/06/23 04:56 Dose: 50 ml Documented By: CASTILLO Dextrose (Dextrose 50% 50 Ml Syringe) 50 ml IV NOW STA Stop: 11/06/23 06:06 Last Admin: 11/06/23 06:05 Dose: 50 ml Documented By: KACEY Bumetanide 1 mg/ Syringe 4 mls @ 4 mls/min IV ONE ONE Stop: 11/06/23 02:49 Last Admin: 11/06/23 03:54 Dose: 4 mls/min Documented By: CASTILLO Cefepime HCl 2,000 mg/ Syringe 20 mls @ 5 mls/min IV ONE ONE; Protocol Stop: 11/06/23 07:18 Last Admin: 11/06/23 07:39 Dose: 5 mls/min Documented By: MR Imaging Data Radiologist's Impression: Chest X-Ray 11/06/23 01:08 XR chest 1V portable HISTORY: 73 years-old Male sob acute shortness of breath COMPARISON: 10/08/2023 TECHNIQUE: AP view of the chest FINDINGS: Dual lumen right internal jugular central venous catheter is in place. Tip projects over the distal SVC. There are median sternotomy wires. Cardiomegaly is again noted. There is no pneumothorax. Small bilateral pleural effusions with bibasilar opacities are unchanged. Pulmonary edema persists. IMPRESSION: Cardiomegaly with unchanged pulmonary edema, small bilateral pleural effusions and associated bibasilar opacities. ACT 112: Negative or not required by law. The above report was generated using voice recognition software. It may contain grammatical, syntax or spelling errors. Electronically signed by: Loyd Buck M.D. 11/06/2023 8:11 AM Discharge Plan Visit Data Chief Complaint: Shortness of Breath/Dyspnea Stated Complaint: SOB, Weakness ED Provider: Emily Martinez Discharge Problem: Dyspnea, CKD (chronic kidney disease), COVID-19, Hypoglycemia, Wound of lower extremity Discharge Instructions Interventions: ED Discharge Assessment Last Done: 11/06/23 06:24
[2023-11-06] MEDS: DEXTROSE 50% 50 ML SYRINGE IV STA (06:05)
[2023-11-06] MEDS ORDERED: GLUCAGON FOR INJ 1 MG VIAL SQ PRN (06:23)
[2023-11-06] MEDS ORDERED: ACETAMINOPHEN 1000 MG/100 ML IV IV PRN (06:23)
[2023-11-06] MEDS ORDERED: ALBUT/IPRATROP 3MG/0.5MG NEB 3 ML VIAL NEB PRN (06:23)
[2023-11-06] MEDS ORDERED: GLUCOSE 40% GEL 15 GM TUBE PO PRN (06:23)
[2023-11-06] MEDS ORDERED: ONDANSETRON INJ 2 MG/ML 2 ML VIAL IV PRN (06:23)
[2023-11-06] MEDS ORDERED: GLUCOSE 10 TAB/TUBE PO PRN (06:23)
[2023-11-06] MEDS ORDERED: ACETAMINOPHEN 1,000 MG/100 ML VIAL IV PRN (06:45)
[2023-11-06] MEDS: INSULIN ASPART PER UNIT CHARGE SC SCH ×2 (07:17→22:18)
[2023-11-06] MEDS: CEFEPIME 2,000 MG in SYRINGE 0 ML IV ONE (07:39)
[2023-11-06] MEDS: DEXTROSE 50% 50 ML SYRINGE IV PRN (07:55)
--- NOTE | 2023-11-06 08:01 | Electrocardiogram Report ---
Test Reason : Blood Pressure : / mmHG Vent. Rate : 066 BPM Atrial Rate : 066 BPM P-R Int : 238 ms QRS Dur : 128 ms QT Int : 482 ms P-R-T Axes : 075 070 020 degrees QTc Int : 505 ms Sinus rhythm with 1st degree A-V block with frequent Premature ventricular complexes in a pattern of bigeminy Right bundle branch block Anteroseptal infarct , age undetermined Abnormal ECG When compared with ECG of 12-OCT-2023 09:15, No significant change Confirmed by Umair Krause ([id number]) on 11/06/2023 8:01:08 AM Referred By: REFERRED SELF Confirmed By:Umair Krause
--- NOTE | 2023-11-06 08:13 | XRay Report ---
XR chest 1V portable HISTORY: 73 years-old Male sob acute shortness of breath COMPARISON: 10/08/2023 TECHNIQUE: AP view of the chest FINDINGS: Dual lumen right internal jugular central venous catheter is in place. Tip projects over the distal S VC. There are median sternotomy wires. Cardiomegaly is again noted. There is no pneumothorax. Small b ilateral pleural effusions with bibasilar opacities are unchanged. Pulmonary edema persists. IMPRESSION: Cardiomegaly with unchanged pulmonary edema, small bilateral pleural effusions and associ ated bibasilar opacities. ACT 112: Negative or not required by law. The above report was generated using voice recognition software. It may contain grammatical, syntax o r spelling errors. Electronically signed by: Loyd Buck M.D. 11/06/2023 8:11 AM
[2023-11-06] MEDS: ENOXAPARIN INJ 30 MG/0.3 ML SYR SQ SCH (09:58)
[2023-11-06] MEDS: PANTOprazole 40 MG TAB PO SCH (09:58)
[2023-11-06] MEDS: BRIMONIDINE TARTRATE 0.2% 5ML OPB SCH (10:00)
[2023-11-06] MEDS: TIMOLOL GFS 0.5% OPH SOLN 74 DROPS/5 ML BTL OPB SCH (10:01)
--- NOTE | 2023-11-06 10:15 | Nephrology Consultation ---
Date of Consultation November 06, 2023 Assessment & Plan (1) ESRD on dialysis: ESRD attributed to DKD. Maintained on HD TTS at [facility] under the care of Dr. Richardson. Rx: 3.5 hr, 180 optiflux, 400/800, 3K 2.5Ca 32HCO3 140Na, RIJ TDC + R RC AVF (placed 01/[address] Howard). EDW 105 kg. IDWG excessive at 4-6 kg. Post HD on November 03 --> 106.2 kg. Post HD on November 01 --> 104 kg. Remains non-oliguric. Continue Bumex to encourage urine output. Started HD 09/30/23. Due to infiltration and difficulty cannulating AVF, TDC has been used for treatment. Orders for HD today have been entered into the EHR and reviewed with the HD RN. Hold metoprolol succinate prior to HD. Medications are dosed for IHD. Caution advised regarding Lovenox use. Renal diet - strict 1.5 L daily fluid restriction and low sodium. Continue calcitriol per home Rx. (2) COVID-19: Remdesivir declined due to kidney dysfunction. Rx dexamethasone provided. Symptoms improving. (3) Anemia of chronic disease: Hgb stable at ~10. Venofer 100 mg IV provided with HD per outpatient Rx. BASILIO therapy held pending iron loading. History of Present Illness Reason for Consultation: ESRD on HD, CHF, COVID-19, hypoxia Requesting Physician: Gregorio Avalos MD Attending Physician: Gregorio Avalos MD History of Present Illness Mr. Dayton Em is a 73 year-old male with ESRD attributed to DKD. He dialyzes TTS at [facility] under the care of Dr. Richardson. Dayton started dialysis during a hospitalization at [facility] last month. He was hospitalized with acute on chronic kidney dysfunction and volume overload. He was similarly hospitalized with volume overload and LE cellulitis in August. He completed rehab at [facility] following his recent hospitalization. Dayton has been tolerating dialysis well. No complications reported with treatments. However, he has not tolerated use of his AVF. IDWG has been excessive. [place] remains non-oliguric. He completed his last dialysis treatment on November 03. Post weight was 106.2 kg. EDW has been established at 105 kg. He was down to 104 kg following HD last [place]. He dialyzes via a TDC. L RC AVF creation was completed in January [address] Howard. Unfortunately, due to infiltration and difficulty cannulating, TDC placement was required. Past medical history notable for IDDM complicated by retinopathy, HTN, PVD s/p L BKA, ASCVD s/p CABG x4, nephrotic syndrome w/ chronic LLE swelling. Mr. Em was hospitalized in early August due to LE cellulitis. He was readmitted September 08-September 16 with volume overload. This was possibly related to medication non adherence. Mr. Em lives alone and does not drive due to poor vision. He returned to the hospital with volume overload within a couple of weeks with volume overload and associated respiratory failure. Volume has been reasonably managed with HD. Unfortunately, he presented to the hospital yesterday with shortness of breath and evidence of volume overload as well as +SARS-COV2. Allergies Allergy/AdvReac Type Severity Reaction Status Date / Time ofloxacin [From Floxin] Allergy Intermediate itching Verified 10/12/23 09:23 Quinolones Allergy Intermediate Itchiness Verified 10/12/23 09:23 sulfamethoxazole Allergy Intermediate Rash Verified 10/12/23 09:23 trimethoprim Allergy Intermediate Rash Verified 10/12/23 09:23 Home Medications Medication Instructions Recorded Confirmed Type latanoprost 0.005 % eye drops 1 drp OPB HS 12/27/17 10/12/23 History (Xalatan) brimonidine 0.2 % eye drops 1 drp OPB BID 12/07/20 10/12/23 History dorzolamide 2 % eye drops 1 drp OPB BID 12/07/20 10/12/23 History timolol maleate 0.5 % eye gel 1 drp OPB BID 12/07/20 10/12/23 History forming solution docusate sodium 100 mg capsule 100 mg PO BID #0 caps 09/03/23 10/12/23 Rx polyethylene glycol 3350 17 gram 17 g PO BID #0 ea 09/03/23 10/12/23 Rx oral powder packet (Miralax) tramadol 50 mg tablet 50 mg PO DAILY #30 tabs 09/08/23 10/12/23 Rx calcitriol 0.5 mcg capsule 1 mcg (2 x 0.5 mcg) PO QAM #60 caps 09/17/23 10/12/23 Rx aspirin 81 mg tablet,delayed 81 mg PO QAM #90 tabs 11/04/23 Rx release atorvastatin 80 mg tablet (Lipitor) 80 mg PO DAILY #90 tabs 11/04/23 Rx bumetanide 1 mg tablet 1 mg PO BID #180 tabs 11/04/23 Rx hydralazine 25 mg tablet 75 mg (3 x 25 mg) PO TID 90 days 11/04/23 Rx #810 tabs insulin NPH isoph U-100 human 100 18 unit (0.18 mL) SC BIDM #10 mL 11/04/23 Rx unit/mL subcutaneous suspension (Novolin N NPH U-100 Insulin isophane) insulin regular human 100 unit/mL 1 sliding scale dose subcut 11/04/23 Rx injection solution (Humulin R USEASDIRECTD #10 mL Regular U-100 Insulin) isosorbide mononitrate 30 mg 30 mg PO QAM 90 days #90 tabs 11/04/23 Rx tablet,extended release 24 hr metoprolol succinate 25 mg 25 mg PO QAM #90 tabs 11/04/23 Rx tablet,extended release 24 hr ondansetron 4 mg disintegrating 4 mg PO Q8H PRN nausea and 11/04/23 Rx tablet vomiting #30 tabs ropinirole 1 mg tablet See Rx Instructions .Route 11/04/23 Rx .COMPLEX #450 tabs sertraline 50 mg tablet 50 mg PO DAILY #90 tabs 11/04/23 Rx trazodone 100 mg tablet 100 mg PO HS #90 tabs 11/04/23 Rx ascorbic acid (vitamin C) 500 mg 500 mg PO QAM #90 caps 11/05/23 Rx capsule cholecalciferol (vitamin D3) 50 2,000 unit PO QAM #90 caps 11/05/23 Rx mcg (2,000 unit) capsule (Vitamin D3) cyanocobalamin (vitamin B-12) 500 1,000 mcg (2 x 500 mcg) PO QAM 11/05/23 Rx mcg tablet #180 tabs Patient History Medical History Chronic combined systolic and diastolic heart failure Depression Chronic kidney disease, stage 4 (severe) Diabetic peripheral 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 Restless leg syndrome Type 2 diabetes mellitus Ventricular bigeminy 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, with long-term current use of insulin (HFpEF) heart failure with preserved ejection fraction Pressure ulcer of BKA stump, stage 3 RESOLVED Influenza A virus subtype H1 2009 pandemic strain present Slow to wake up after anesthesia Wound of lower extremity RLE wound "improved" per 01/27/21 wound clinic visit ([facility]); surgeon aware of patient's wound hx per 01/2021 office visit note; "only has a little scab there now, keeps it covered to protect it." GERD (gastroesophageal reflux disease) History of TIA (transient ischemic attack) ~2009>over his left eye, no residual symptoms Surgical History S/P arteriovenous (AV) fistula creation left>no currently having dialysis History of esophagogastroduodenoscopy (EGD) History of colonoscopy S/P lumbar laminectomy S/P foot surgery S/P eye surgery B/L x3 (for glaucoma) S/P CABG x 4 (2011) CABG x4 (2011), [facility]; f/u PCP History of lumbar discectomy History of tonsillectomy Family History Father , age 78 with prostate cancer Colorectal cancer Cardiovascular disease Diabetes Prostate cancer Grandmother (Maternal) Diabetes Mother , age 54 of throat cancer Throat cancer Denies family history of Ovarian cancer Myocardial infarction Breast cancer Social History Smoking Status: Never smoker Second Hand Exposure: No; Do You Dip or Chew Tobacco: No; Hx Alcohol Use: No Hx Substance Use: No Preferred Language: [place]an Communication Ability: Effective Visual Impairment: No Limitations Hearing Ability: Normal Assembly Operator Required: No Beliefs That Will Affect Care: None marital status: / marital status details: lost August 2021 Current Living Situation: Alone current occupational status: retired current occupation: How many Children do You have: 2 Other Information That Helps Us Care for You: No other: Retired age [age]2. Feels Safe at Home: No Is there a partner from a previous relationship who is making you feel unsafe now?: No Any Concerns about Your Family Situation: No Would You Like to Speak to Someone About Your Situation: No Safety Concerns: Afraid for Self Childhood Exposure to Second-Hand Smoke: No Diet: regular caffeine: No during the past year weight has: remained stable Dental Care, Regularly: Yes Physical Activity Frequency: Other Physical Activity Frequency Comment: limited d/t disability Seatbelt Use: always Sunscreen Use: Yes Assistive Devices: Glasses, Prosthesis, Walker and Wheelchair Review of Systems Review of Systems: All systems reviewed & are unremarkable except as noted in HPI & below Constitutional: + weight gain; no fever and no chills Respiratory: + dyspnea; no cough Cardiovascular: + dyspnea and + orthopnea; no chest pain , no palpitations and no edema Physical Exam Constitutional: well developed; no acute distress Eyes: no scleral abnormality and no corneal abnormality ENMT: Mouth: no oral mucosal abnormality and oral mucous membranes not dry Neck: normal visual inspection and trachea midline RIJ HD catheter Respiratory: normal respiratory effort Auscultation: lungs clear to auscultation bilaterally, + diminished lung sounds and + rales Cardiovascular: Rate/Rhythm: regular rate Heart Sounds: normal S1 and normal S2 Extremities: + edema (RLE) and + AV fistula (L RC AVF + bruit) Musculoskeletal: Extremities: no cyanosis and no clubbing Skin: normal turgor; no lesions Neurologic: Motor/Sensory: no tremor and no asterixis Psychiatric: Orientation: alert and oriented x 3 Results & Data Vital Signs (Past 12 Hours) Vital Signs Temp Pulse Pulse Resp BP BP Pulse Ox 11/06/23 09:55 80 20 140/92 93 11/06/23 09:16 11/06/23 07:13 60 11/06/23 07:00 59 L 16 146/67 H 93 11/06/23 07:00 60 20 100 11/06/23 06:00 57 L 14 115/72 99 11/06/23 05:30 60 18 149/75 H 100 11/06/23 05:03 52 L 14 131/54 L 99 11/06/23 05:02 46 L 11/06/23 04:51 51 L 20 147/78 H 99 11/06/23 04:03 59 L 23 100 11/06/23 04:00 59 L 25 H 140/78 99 11/06/23 03:03 59 L 17 11/06/23 03:00 131/54 L 07/27/24 03:00 131/54 L 11/06/23 02:42 55 L 23 11/06/23 02:30 61 23 11/06/23 02:01 149/94 H 11/06/23 02:01 149/94 H 11/06/23 02:00 63 22 11/06/23 02:00 60 21 97 11/06/23 01:33 63 35 H 11/06/23 01:33 11/06/23 01:31 144/75 H 11/06/23 01:24 63 23 11/06/23 01:14 36.9 C 61 21 137/76 94 11/06/23 01:06 64 28 H 93 11/06/23 01:06 151/68 H 11/06/23 01:05 68 11/06/23 01:03 63 27 H 94 11/06/23 01:00 137/76 11/06/23 01:00 137/76 11/06/23 01:00 137/76 O2 Del Method FiO2 11/06/23 09:55 Room Air 11/06/23 09:16 Room Air 11/06/23 07:13 11/06/23 07:00 Room Air, BiPAP 11/06/23 07:00 30 11/06/23 06:00 BiPAP 11/06/23 05:30 BiPAP 11/06/23 05:03 BiPAP 30 11/06/23 05:02 11/06/23 04:51 11/06/23 04:03 30 11/06/23 04:00 11/06/23 03:03 11/06/23 03:00 11/06/23 03:00 11/06/23 02:42 11/06/23 02:30 11/06/23 02:01 11/06/23 02:01 11/06/23 02:00 11/06/23 02:00 30 11/06/23 01:33 11/06/23 01:33 Room Air 11/06/23 01:31 11/06/23 01:24 11/06/23 01:14 Room Air 11/06/23 01:06 11/06/23 01:06 11/06/23 01:05 11/06/23 01:03 11/06/23 01:00 11/06/23 01:00 11/06/23 01:00 Laboratory Results Laboratory Results - last 24 hr 11/06/23 11/06/23 11/06/23 01:16 01:33 02:24 WBC 8.58 RBC 3.11 L Hgb 9.7 L POC Hgb Hct 29.1 L POC Hct MCV 93.6 MCH 31.2 MCHC 33.3 RDW Std Deviation 52.6 H RDW Coeff of Jose 15.2 H Plt Count 97 L MPV 13.7 H Immature Gran % (Auto) 0.3 Neut % (Auto) 81.7 Lymph % (Auto) 5.2 [place] % (Auto) 9.7 Eos % (Auto) 2.8 Baso % (Auto) 0.3 Neut # (Auto) 7.00 H Lymph # (Auto) 0.45 L [place] # (Auto) 0.83 H Eos # (Auto) 0.24 Baso # (Auto) 0.03 Immature Gran # (Auto) 0.03 PT 12.9 H INR 1.2 H POC pH POC pCO2 POC pO2 POC HCO3 POC Total CO2 POC Base Excess POC ABG O2 Sat POC Sodium Sodium 136 POC Potassium Potassium 4.1 Chloride 103 Carbon Dioxide 23 Anion Gap 10 BUN 52 H Creatinine 4.29 H Est Cr Clr Drug Dosing 18.6 Est GFR ( Amer) 14.6 Est GFR (Non-Af Amer) 12.6 BUN/Creatinine Ratio 12.1 Glucose 48 L* POC Glucose 35 L* Calcium 9.0 Phosphorus 4.9 Magnesium 1.9 Total Bilirubin 0.7 AST 20 ALT 28 Alkaline Phosphatase 87 Troponin I High Sens 41.7 H B-Natriuretic Peptide > 4700 H Total Protein 6.2 Albumin 3.7 Globulin 2.5 Albumin/Globulin Ratio 1.5 Lipase 64 Nasal Screen MRSA (PCR) Adenovirus (PCR) Not Detected B. pertussis DNA (PCR) Not Detected B.parapertussis DNA PCR Not Detected C. pneumoniae DNA (PCR) Not Detected Coronavirus OC43 (PCR) Not Detected Coronavirus HKU1 (PCR) Not Detected Coronavirus 229E (PCR) Not Detected SARS-CoV-2 (PCR) DETECTED A Coronavirus NL63 (PCR) Not Detected Human Metapneumovir PCR Not Detected Influenza Type A (PCR) Not Detected Influenza Type B (PCR) Not Detected M. pneumoniae (PCR) Not Detected Parainfluenza 1 (PCR) Not Detected Parainfluenza 2 (PCR) Not Detected Parainfluenza 3 (PCR) Not Detected Parainfluenza 4 (PCR) Not Detected RSV (PCR) Not Detected Entero/Rhino (PCR) Not Detected 11/06/23 11/06/23 11/06/23 02:45 03:18 03:19 WBC RBC Hgb POC Hgb Hct POC Hct MCV MCH MCHC RDW Std Deviation RDW Coeff of Jose Plt Count MPV Immature Gran % (Auto) Neut % (Auto) Lymph % (Auto) [place] % (Auto) Eos % (Auto) Baso % (Auto) Neut # (Auto) Lymph # (Auto) [place] # (Auto) Eos # (Auto) Baso # (Auto) Immature Gran # (Auto) PT INR POC pH POC pCO2 POC pO2 POC HCO3 POC Total CO2 POC Base Excess POC ABG O2 Sat POC Sodium Sodium POC Potassium Potassium Chloride Carbon Dioxide Anion Gap BUN Creatinine Est Cr Clr Drug Dosing Est GFR ( Amer) Est GFR (Non-Af Amer) BUN/Creatinine Ratio Glucose POC Glucose 133 H 64 L* 72 Calcium Phosphorus Magnesium Total Bilirubin AST ALT Alkaline Phosphatase Troponin I High Sens B-Natriuretic Peptide Total Protein Albumin Globulin Albumin/Globulin Ratio Lipase Nasal Screen MRSA (PCR) Adenovirus (PCR) B. pertussis DNA (PCR) B.parapertussis DNA PCR C. pneumoniae DNA (PCR) Coronavirus OC43 (PCR) Coronavirus HKU1 (PCR) Coronavirus 229E (PCR) SARS-CoV-2 (PCR) Coronavirus NL63 (PCR) Human Metapneumovir PCR Influenza Type A (PCR) Influenza Type B (PCR) M. pneumoniae (PCR) Parainfluenza 1 (PCR) Parainfluenza 2 (PCR) Parainfluenza 3 (PCR) Parainfluenza 4 (PCR) RSV (PCR) Entero/Rhino (PCR) 11/06/23 11/06/23 11/06/23 03:36 04:44 05:14 WBC RBC Hgb POC Hgb 9.5 L Hct POC Hct 28 L MCV MCH MCHC RDW Std Deviation RDW Coeff of Jose Plt Count MPV Immature Gran % (Auto) Neut % (Auto) Lymph % (Auto) [place] % (Auto) Eos % (Auto) Baso % (Auto) Neut # (Auto) Lymph # (Auto) [place] # (Auto) Eos # (Auto) Baso # (Auto) Immature Gran # (Auto) PT INR POC pH 7.39 POC pCO2 39 POC pO2 91 POC HCO3 24 POC Total CO2 25 POC Base Excess -1.0 POC ABG O2 Sat 97.0 H POC Sodium 136 Sodium POC Potassium 4.0 Potassium Chloride Carbon Dioxide Anion Gap BUN Creatinine Est Cr Clr Drug Dosing Est GFR ( Amer) Est GFR (Non-Af Amer) BUN/Creatinine Ratio Glucose POC Glucose 52 L* 95 Calcium Phosphorus Magnesium Total Bilirubin AST ALT Alkaline Phosphatase Troponin I High Sens B-Natriuretic Peptide Total Protein Albumin Globulin Albumin/Globulin Ratio Lipase Nasal Screen MRSA (PCR) Adenovirus (PCR) B. pertussis DNA (PCR) B.parapertussis DNA PCR C. pneumoniae DNA (PCR) Coronavirus OC43 (PCR) Coronavirus HKU1 (PCR) Coronavirus 229E (PCR) SARS-CoV-2 (PCR) Coronavirus NL63 (PCR) Human Metapneumovir PCR Influenza Type A (PCR) Influenza Type B (PCR) M. pneumoniae (PCR) Parainfluenza 1 (PCR) Parainfluenza 2 (PCR) Parainfluenza 3 (PCR) Parainfluenza 4 (PCR) RSV (PCR) Entero/Rhino (PCR) 11/06/23 11/06/23 11/06/23 05:54 06:20 07:44 WBC RBC Hgb POC Hgb Hct POC Hct MCV MCH MCHC RDW Std Deviation RDW Coeff of Jose Plt Count MPV Immature Gran % (Auto) Neut % (Auto) Lymph % (Auto) [place] % (Auto) Eos % (Auto) Baso % (Auto) Neut # (Auto) Lymph # (Auto) [place] # (Auto) Eos # (Auto) Baso # (Auto) Immature Gran # (Auto) PT INR POC pH POC pCO2 POC pO2 POC HCO3 POC Total CO2 POC Base Excess POC ABG O2 Sat POC Sodium Sodium POC Potassium Potassium Chloride Carbon Dioxide Anion Gap BUN Creatinine Est Cr Clr Drug Dosing Est GFR ( Amer) Est GFR (Non-Af Amer) BUN/Creatinine Ratio Glucose POC Glucose 53 L* 112 H 47 L* Calcium Phosphorus Magnesium Total Bilirubin AST ALT Alkaline Phosphatase Troponin I High Sens B-Natriuretic Peptide Total Protein Albumin Globulin Albumin/Globulin Ratio Lipase Nasal Screen MRSA (PCR) Adenovirus (PCR) B. pertussis DNA (PCR) B.parapertussis DNA PCR C. pneumoniae DNA (PCR) Coronavirus OC43 (PCR) Coronavirus HKU1 (PCR) Coronavirus 229E (PCR) SARS-CoV-2 (PCR) Coronavirus NL63 (PCR) Human Metapneumovir PCR Influenza Type A (PCR) Influenza Type B (PCR) M. pneumoniae (PCR) Parainfluenza 1 (PCR) Parainfluenza 2 (PCR) Parainfluenza 3 (PCR) Parainfluenza 4 (PCR) RSV (PCR) Entero/Rhino (PCR) 11/06/23 11/06/23 11/06/23 08:18 09:38 09:40 WBC RBC Hgb POC Hgb Hct POC Hct MCV MCH MCHC RDW Std Deviation RDW Coeff of Jose Plt Count MPV Immature Gran % (Auto) Neut % (Auto) Lymph % (Auto) [place] % (Auto) Eos % (Auto) Baso % (Auto) Neut # (Auto) Lymph # (Auto) [place] # (Auto) Eos # (Auto) Baso # (Auto) Immature Gran # (Auto) PT INR POC pH POC pCO2 POC pO2 POC HCO3 POC Total CO2 POC Base Excess POC ABG O2 Sat POC Sodium Sodium POC Potassium Potassium Chloride Carbon Dioxide Anion Gap BUN Creatinine Est Cr Clr Drug Dosing Est GFR ( Amer) Est GFR (Non-Af Amer) BUN/Creatinine Ratio Glucose POC Glucose 113 H 102 H Calcium Phosphorus Magnesium Total Bilirubin AST ALT Alkaline Phosphatase Troponin I High Sens B-Natriuretic Peptide Total Protein Albumin Globulin Albumin/Globulin Ratio Lipase Nasal Screen MRSA (PCR) Pending Adenovirus (PCR) B. pertussis DNA (PCR) B.parapertussis DNA PCR C. pneumoniae DNA (PCR) Coronavirus OC43 (PCR) Coronavirus HKU1 (PCR) Coronavirus 229E (PCR) SARS-CoV-2 (PCR) Coronavirus NL63 (PCR) Human Metapneumovir PCR Influenza Type A (PCR) Influenza Type B (PCR) M. pneumoniae (PCR) Parainfluenza 1 (PCR) Parainfluenza 2 (PCR) Parainfluenza 3 (PCR) Parainfluenza 4 (PCR) RSV (PCR) Entero/Rhino (PCR) Diagnostic Findings XR chest 1V portable COMPARISON: 10/08/2023 Dual lumen right internal jugular central venous catheter is in place. Tip projects over the distal SVC. There are median sternotomy wires. Cardiomegaly is again noted. There is no pneumothorax. Small bilateral pleural effusions with bibasilar opacities are unchanged. Pulmonary edema persists. IMPRESSION: Cardiomegaly with unchanged pulmonary edema, small bilateral pleural effusions and associated bibasilar opacities. ECG Additional Comments: Vent. Rate : 066 BPM Atrial Rate : 066 BPM P-R Int : 238 ms QRS Dur : 128 ms QT Int : 482 ms P-R-T Axes : 075 070 020 degrees QTc Int : 505 ms Sinus rhythm with 1st degree A-V block with frequent Premature ventricular complexes in a pattern of bigeminy Right bundle branch block Anteroseptal infarct , age undetermined Abnormal ECG When compared with ECG of 12-OCT-2023 09:15, No significant change PG Care Time/CCT Total # of Minutes Spent Total Time Spent with Patient: Total time spent is greater than 50% in coordination of care (as documented) at patient's floor/unit and/or counseling patient: Coding Level of Care Code 46378 IN/OBS CONSULT LVL 5,80M Diagnoses ESRD on dialysis N18.6; Z99.2 COVID-19 U07.1 Anemia of chronic disease D63.8
[2023-11-06 10:53] LABS: Appearance Urine Clear (Clear); Bacteria Urine Automated None Seen (None Seen); Bilirubin Urine Negative (Negative); Blood Urine Negative (Negative); Color Urine Yellow; Epithelial Cell Urine Auto 0-2 /hpf (0-2); Glucose Urine UA Negative (Negative); Ketones Urine Negative (Negative); Leukocyte Esterase Urine Negative (Negative); Nitrite Urine Negative (Negative); Protein Urine 2+ (Negative); RBC Urine Automated 0-2 /hpf (0-2); Specific Gravity Urine 1.011 (1.000-1.030); Urobilinogen Urine Negative (Negative); WBC Urine Automated 0-5 /hpf (0-5)
[2023-11-06] MEDS ORDERED: PANTOprazole 40 MG in SYRINGE 0 ML IV SCH (11:00)
--- NOTE | 2023-11-06 11:25 | Hospitalist Progress Note ---
Date of Service November 06, 2023 Assessment & Plan (1) Acute respiratory failure with hypoxia: Plan: Supplemental oxygen per nasal cannula to maintain saturation greater than 90%. Wean off as tolerated (2) (HFpEF) heart failure with preserved ejection fraction: Plan: Hemodialysis to correct fluid overload. Serial chest x-ray (3) COVID-19: Plan: Positivity by nasal swab. He is asymptomatic in this respect. No indication for parenteral steroids or other treatment (4) ESRD on dialysis: Plan: Nephrology consultation requested. He will undergo hemodialysis later today, November 05 (5) Anemia of chronic disease: Plan: No evidence of acute blood loss. Serial labs (6) Cellulitis of right lower extremity: Plan: Recurrent. Currently on cefepime, day 1 (7) Hx of left BKA: Plan: Supportive care (8) CAD, multiple vessel: Plan: Stable. Continue current medical management Plan Anticipate eventual discharge to home within the next 48 to 72 hours Admission and Anticipated Discharge Date Admission Date: November 06, 2023 Subjective Alert and oriented. He has acute on chronic diastolic CHF from fluid overload causing acute hypoxic respiratory failure. He will undergo hemodialysis later today. He states he has not missed a hemodialysis session. COVID nasal swab was positive but he is asymptomatic in this respect. Dexamethasone has been discontinued. He is hyperglycemic and requiring intermittent IV glucose. This will be monitored. He has evidence of right lower extremity cellulitis and is on intravenous cefepime, day 1. Nephrology consultation is pending. Review of Systems 2 Review of Systems: Constitutional-no fever or chills ENT-no blurred vision, no double vision, no epistaxis, no sore throat Respiratory-no cough, no wheezing. Shortness of breath noted at rest Cardiac-no palpitations, no chest pain, no syncope GI-no nausea, vomiting, diarrhea, melena, hematochezia -no urinary retention, no urinary incontinence, no dysuria, no hematuria Musculoskeletal-no joint pain, no muscle tenderness. Left BKA status Skin-no bruising, no rashes, no pruritus Neuro-no isolated weakness, no paresthesia Psych-no depression, no anxiety Physical Exam 2 Physical Exam: General-alert and oriented x3, no fever, no chills HEENT-head atraumatic and normocephalic, pupils equal and reactive to light, extraocular muscles intact Neck-no lymphadenopathy or thyromegaly, trachea midline Chest-bibasilar inspiratory rales. No wheezing. No rhonchi i Cardiac-regular rate and rhythm, normal S1 and S2 Abdomen-normal bowel sounds, no hepatosplenomegaly Extremities-left BKA status. Erythema right lower extremity below the knee consistent with cellulitis Neuro-cranial nerves II through XII intact, motor and sensory function within normal limits, strength symmetrical, no focal deficits Psych-normal affect, normal mood Results & Data Results & Data Vital Signs (Past 12 Hours) Vital Signs Temp Pulse Pulse Resp BP BP Pulse Ox 11/06/23 09:55 80 20 140/92 93 11/06/23 09:16 11/06/23 07:13 60 11/06/23 07:00 59 L 16 146/67 H 93 11/06/23 07:00 60 20 100 11/06/23 06:00 57 L 14 115/72 99 11/06/23 05:30 60 18 149/75 H 100 11/06/23 05:03 52 L 14 131/54 L 99 11/06/23 05:02 46 L 11/06/23 04:51 51 L 20 147/78 H 99 11/06/23 04:03 59 L 23 100 11/06/23 04:00 59 L 25 H 140/78 99 11/06/23 03:03 59 L 17 11/06/23 03:00 131/54 L 11/06/23 03:00 131/54 L 11/06/23 02:42 55 L 23 11/06/23 02:30 61 23 11/06/23 02:01 149/94 H 11/06/23 02:01 149/94 H 11/06/23 02:00 63 22 11/06/23 02:00 60 21 97 11/06/23 01:33 63 35 H 11/06/23 01:33 11/06/23 01:31 144/75 H 11/06/23 01:24 63 23 11/06/23 01:14 36.9 C 61 21 137/76 94 11/06/23 01:06 64 28 H 93 11/06/23 01:06 151/68 H 11/06/23 01:05 68 11/06/23 01:03 63 27 H 94 11/06/23 01:00 137/76 11/06/23 01:00 137/76 11/06/23 01:00 137/76 O2 Del Method FiO2 11/06/23 09:55 Room Air 11/06/23 09:16 Room Air 11/06/23 07:13 11/06/23 07:00 Room Air, BiPAP 11/06/23 07:00 30 11/06/23 06:00 BiPAP 11/06/23 05:30 BiPAP 11/06/23 05:03 BiPAP 30 11/06/23 05:02 11/06/23 04:51 11/06/23 04:03 30 11/06/23 04:00 11/06/23 03:03 11/06/23 03:00 11/06/23 03:00 11/06/23 02:42 11/06/23 02:30 11/06/23 02:01 11/06/23 02:01 11/06/23 02:00 11/06/23 02:00 30 11/06/23 01:33 11/06/23 01:33 Room Air 11/06/23 01:31 11/06/23 01:24 11/06/23 01:14 Room Air 11/06/23 01:06 11/06/23 01:06 11/06/23 01:05 11/06/23 01:03 11/06/23 01:00 11/06/23 01:00 11/06/23 01:00 Laboratory Results 11/06/23 01:33 11/06/23 01:33 PG Care Time/CCT Total # of Minutes Spent Total Time Spent with Patient: Total time spent is greater than 50% in coordination of care (as documented) at patient's floor/unit and/or counseling patient: Coding Level of Care Code 16391 SUB INP/OBS CARE 3/50MIN Diagnoses Acute respiratory failure with hypoxia J96.01 Chronic heart failure with preserved ejection fraction I50.32 Heart failure chronicity: chronic COVID-19 U07.1 ESRD on dialysis N18.6; Z99.2 Anemia of chronic disease D63.8 Cellulitis of right lower extremity L03.115 Hx of left BKA Z89.512 CAD, multiple vessel I25.10 (2) (HFpEF) heart failure with preserved ejection fraction Heart failure chronicity: chronic Qualified Code(s): I50.32 - Chronic diastolic (congestive) heart failure
[2023-11-06] MEDS: CEFEPIME 1,000 MG in SYRINGE 0 ML IV SCH (21:59)
[2023-11-06] MEDS: LATANOPROST 0.005% OP SOLN 2.5 ML BTL OPB SCH (22:00)
[2023-11-07] MEDS: MELATONIN 3 MG TAB PO PRN (00:31)
[2023-11-07] MEDS ORDERED: CARBOHYDRATES FOR HYPOGLYCEMIA PO PRN (07:20)
[2023-11-07] MEDS ORDERED: DEXTROSE 50% 50 ML SYRINGE IV PRN (07:20)
[2023-11-07] MEDS ORDERED: GLUCOSE 40% GEL 15 GM TUBE PO PRN (07:20)
[2023-11-07] MEDS ORDERED: GLUCOSE 10 TAB/TUBE PO PRN (07:20)
[2023-11-07] MEDS ORDERED: GLUCAGON FOR INJ 1 MG VIAL SQ PRN (07:20)
[2023-11-07 07:38] LABS: Basophils # (auto) 0.04 K/uL (0.00-0.20); Basophils % (auto) 0.5 %; Eosinophils # (auto) 0.15 K/uL (0.00-0.50); Hemoglobin 9.8 g/dl (14.0-18.0); Immature Granulocytes # (auto) 0.04 K/uL (0.01-0.20); Immature Granulocytes % (auto) 0.5 %; Lymphocytes # (auto) 0.74 K/uL (1.20-3.40); Lymphocytes % (auto) 9.6 %; Mean Corpuscular Hemoglobin 30.7 pg (25.0-34.0); Mean Corpuscular Hgb Conc 33.8 g/dL (32.0-36.0); Mean Corpuscular Volume 90.9 fL (80.0-100.0); Mean Platelet Volume 13.5 fL (9.4-12.4); Monocytes # (auto) 0.83 K/uL (0.11-0.59); Monocytes % (auto) 10.8 %; Neutrophils # (auto) 5.89 K/uL (1.40-6.50); Neutrophils % (auto) 76.6 %; Platelet Count 108 K/uL (130-400); RDW Coefficient of Variation 15.2 % (11.5-14.5); RDW Standard Deviation 50.3 fL (36.4-46.3); Red Blood Count 3.19 M/uL (4.70-6.10); White Blood Count 7.69 K/ul (4.8-10.8)
[2023-11-07] MEDS: METOPROLOL SUCC 25MG EXT REL TAB PO SCH (08:02)
[2023-11-07 08:03] LABS: BUN Creatinine Ratio 12.8 (10-20); Calcium 8.8 mg/dl (8.6-10.3); Creatinine Clr Calc Pharmacy 23.3 ml/min; Est GFR (African American) 19.1 ml/min; Est GFR (Non-African American) 16.5 ml/min; Potassium 4.2 mmol/L (3.5-5.1)
[2023-11-07] MEDS: BUMETANIDE 1 MG in SYRINGE 0 ML IV SCH (08:03)
[2023-11-07] MEDS ORDERED: traMADol HCL 50 MG TABLET PO PRN (08:52)
[2023-11-07] MEDS ORDERED: dexAMETHasone 6 MG in SYRINGE 0 ML IV SCH (09:00)
[2023-11-07] MEDS: INSULIN ASPART PER UNIT CHARGE SC SCH (09:06)
[2023-11-07] MEDS: POLYETHYLENE (MIRALAX) 17 GM PACK PO SCH (10:09)
[2023-11-07] MEDS: DOCUSATE SODIUM 100 MG CAP PO SCH (10:09)
[2023-11-07] MEDS: CALCITRIOL 0.25 MCG CAPSULE PO SCH (10:09)
[2023-11-07] MEDS: ASPIRIN 81 MG ECTAB PO SCH (10:09)
[2023-11-07] MEDS: ISOSORBIDE MONO EXTENDED REL 30 MG TABCR PO SCH (10:10)
[2023-11-07] MEDS: ATORVASTATIN 40 MG TAB PO SCH (10:10)
[2023-11-07] MEDS: hydrALAZINE HCL 25 MG TAB PO SCH (10:10)
[2023-11-07] MEDS: INSULIN HUMAN NPH SC SCH (10:11)
[2023-11-07] MEDS: ASCORBIC ACID 500 MG TAB PO SCH (10:11)
[2023-11-07] MEDS: CHOLECALCIFEROL 25 MCG (1000 UNITS) TAB PO SCH (10:11)
[2023-11-07] MEDS: SERTRALINE HCL 50 MG TABLET PO SCH (10:11)
[2023-11-07] MEDS: CYANOCOBALAMIN (B-12) 500 MCG TABLET PO SCH (10:11)
--- NOTE | 2023-11-07 10:58 | Nephrology Progress Note ---
Date of Service November 07, 2023 Assessment & Plan (1) ESRD on dialysis: Plan: ESRD attributed to DKD. Maintained on HD TTS at [facility] under the care of Dr. Richardson. Rx: 3.5 hr, 180 optiflux, 400/800, 3K 2.5Ca 32HCO3 140Na, RIJ TDC + R RC AVF (placed 01/[address] Howard). Due to difficulty cannulating AVF, TDC has been used for treatment. EDW 105 kg. Continue Bumex to encourage urine output. BP and volume status are acceptable. Electrolytes controlled. Adequate clearance with treatment. No HD today. Medications are dosed for IHD. Caution advised regarding Lovenox use. Renal diet - strict 1.5 L daily fluid restriction and low sodium. Continue calcitriol per home Rx. (2) COVID-19: Plan: Denies significant symptoms at this time. (3) Anemia of chronic disease: Plan: Hgb stable at ~10. Venofer 100 mg IV provided with HD per outpatient Rx. BASILIO therapy held pending iron loading. Admission and Anticipated Discharge Date Admission Date: November 06, 2023 Subjective No acute events overnight. [place] tolerated HD well yesterday. Net UF 4.5 L. [place] reports improvement in dyspnea with UF. He acknowledges fluid retention concerns and importance of maintaining dietary sodium and fluid restriction. No fevers or chills. [place] feels well overall today. Review of Systems Review of Systems: All systems reviewed & are unremarkable except as noted in HPI & below Physical Exam Constitutional: well developed; no acute distress Eyes: no scleral abnormality and no corneal abnormality ENMT: Mouth: no oral mucosal abnormality and oral mucous membranes not dry Neck: normal visual inspection and trachea midline Respiratory: normal respiratory effort Auscultation: lungs clear to auscultation bilaterally Cardiovascular: Rate/Rhythm: regular rate Heart Sounds: normal S1 and normal S2 Extremities: + edema (RLE) and + AV fistula (L RC AVF + bruit) Musculoskeletal: Extremities: no cyanosis and no clubbing Skin: normal turgor; no lesions Neurologic: Motor/Sensory: no tremor and no asterixis Psychiatric: Orientation: alert and oriented x 3 Results & Data Vital Signs (Past 12 Hours) Vital Signs Temp Pulse Pulse Resp BP BP Pulse Ox 11/07/23 10:34 11/07/23 08:08 36.6 C 73 18 156/79 H 97 11/07/23 07:00 76 11/07/23 02:48 36.5 C 71 16 117/56 L 92 11/06/23 23:33 11/06/23 22:56 36.4 C L 72 19 151/56 H 97 O2 Del Method O2 Flow Rate 11/07/23 10:34 Nasal Cannula 3 11/07/23 08:08 Nasal Cannula 2 11/07/23 07:00 11/07/23 02:48 Room Air 11/06/23 23:33 Nasal Cannula 2 11/06/23 22:56 Nasal Cannula 2 Laboratory Results Laboratory Results - last 24 hr 11/06/23 11/06/23 11/06/23 11:10 12:58 17:04 WBC RBC Hgb Hct MCV MCH MCHC RDW Std Deviation RDW Coeff of Jose Plt Count MPV Immature Gran % (Auto) Neut % (Auto) Lymph % (Auto) [place] % (Auto) Eos % (Auto) Baso % (Auto) Neut # (Auto) Lymph # (Auto) [place] # (Auto) Eos # (Auto) Baso # (Auto) Immature Gran # (Auto) Sodium Potassium Chloride Carbon Dioxide Anion Gap BUN Creatinine Est Cr Clr Drug Dosing Est GFR ( Amer) Est GFR (Non-Af Amer) BUN/Creatinine Ratio Glucose POC Glucose 155 H 161 H 143 H Calcium 11/06/23 11/07/23 11/07/23 21:58 06:55 08:04 WBC 7.69 RBC 3.19 L Hgb 9.8 L Hct 29.0 L MCV 90.9 MCH 30.7 MCHC 33.8 RDW Std Deviation 50.3 H RDW Coeff of Jose 15.2 H Plt Count 108 L MPV 13.5 H Immature Gran % (Auto) 0.5 Neut % (Auto) 76.6 Lymph % (Auto) 9.6 [place] % (Auto) 10.8 Eos % (Auto) 2.0 Baso % (Auto) 0.5 Neut # (Auto) 5.89 Lymph # (Auto) 0.74 L [place] # (Auto) 0.83 H Eos # (Auto) 0.15 Baso # (Auto) 0.04 Immature Gran # (Auto) 0.04 Sodium 136 Potassium 4.2 Chloride 102 Carbon Dioxide 26 Anion Gap 8 BUN 44 H Creatinine 3.44 H D Est Cr Clr Drug Dosing 23.3 Est GFR ( Amer) 19.1 Est GFR (Non-Af Amer) 16.5 BUN/Creatinine Ratio 12.8 Glucose 206 H POC Glucose 175 H 197 H Calcium 8.8 PG Care Time/CCT Total # of Minutes Spent Total Time Spent with Patient: Total time spent is greater than 50% in coordination of care (as documented) at patient's floor/unit and/or counseling patient: Coding Level of Care Code 96345 SUB INP/OBS CARE 3/50MIN Diagnoses ESRD on dialysis N18.6; Z99.2 COVID-19 U07.1 Anemia of chronic disease D63.8
--- NOTE | 2023-11-07 14:50 | Hospitalist Progress Note ---
Date of Service November 07, 2023 Assessment & Plan (1) Acute respiratory failure with hypoxia: Plan: Supplemental oxygen per nasal cannula to maintain saturation greater than 90%. Wean off as tolerated. Much improved after hemodialysis on November 05. Will repeat portable chest x-ray again tomorrow, November 07 (2) (HFpEF) heart failure with preserved ejection fraction: Plan: Hemodialysis to correct fluid overload. Improving. Repeat portable chest x-ray tomorrow, November 07 (3) COVID-19: Plan: Positivity by nasal swab. He is asymptomatic in this respect. No indication for parenteral steroids or other treatment (4) ESRD on dialysis: Plan: Nephrology consultation requested. He underwent hemodialysis yesterday, November 05. I believe his schedule is Wednesday. (5) Anemia of chronic disease: Plan: No evidence of acute blood loss. Serial labs (6) Cellulitis of right lower extremity: Plan: Recurrent. Improving. Currently on cefepime, day 2 (7) Hx of left BKA: Plan: Supportive care (8) CAD, multiple vessel: Plan: Stable. Continue current medical management Plan Anticipate eventual discharge to home within the next 24 to 48 hours. Admission and Anticipated Discharge Date Admission Date: November 06, 2023 Subjective Alert and oriented. No distress. He is currently on oxygen at 2 L/min. Hopefully this can be weaned off before discharge. He remains on intravenous cefepime, day 2, for right lower extremity cellulitis. NPH has been restarted at a lower dose than he takes at home. Will follow. All of his home medications have been reordered. Will repeat chest x-ray again tomorrow, November 07. He received dialysis on November 05 which seemed to help his respiratory status quite a bit. Review of Systems 2 Review of Systems: Constitutional-no fever or chills ENT-no blurred vision, no double vision, no epistaxis, no sore throat Respiratory-no cough, no wheezing. Shortness of breath noted at rest Cardiac-no palpitations, no chest pain, no syncope GI-no nausea, vomiting, diarrhea, melena, hematochezia -no urinary retention, no urinary incontinence, no dysuria, no hematuria Musculoskeletal-no joint pain, no muscle tenderness. Left BKA status Skin-no bruising, no rashes, no pruritus Neuro-no isolated weakness, no paresthesia Psych-no depression, no anxiety Physical Exam 2 Physical Exam: General-alert and oriented x3, no fever, no chills HEENT-head atraumatic and normocephalic, pupils equal and reactive to light, extraocular muscles intact Neck-no lymphadenopathy or thyromegaly, trachea midline Chest-bibasilar inspiratory rales. No wheezing. No rhonchi i Cardiac-regular rate and rhythm, normal S1 and S2 Abdomen-normal bowel sounds, no hepatosplenomegaly Extremities-left BKA status. Erythema right lower extremity below the knee consistent with cellulitis Neuro-cranial nerves II through XII intact, motor and sensory function within normal limits, strength symmetrical, no focal deficits Psych-normal affect, normal mood Results & Data Results & Data Vital Signs (Past 12 Hours) Vital Signs Temp Pulse Pulse Resp BP BP Pulse Ox 11/07/23 14:41 56 L 11/07/23 13:04 61 125/64 11/07/23 11:30 36.5 C 60 18 163/61 H 97 11/07/23 10:34 11/07/23 08:08 36.6 C 73 18 156/79 H 97 11/07/23 07:00 76 11/07/23 02:48 36.5 C 71 16 117/56 L 92 O2 Del Method O2 Flow Rate 11/07/23 14:41 11/07/23 13:04 11/07/23 11:30 Nasal Cannula 2.5 11/07/23 10:34 Nasal Cannula 3 11/07/23 08:08 Nasal Cannula 2 11/07/23 07:00 11/07/23 02:48 Room Air Laboratory Results 11/07/23 06:55 11/07/23 06:55 PG Care Time/CCT Total # of Minutes Spent Total Time Spent with Patient: Total time spent is greater than 50% in coordination of care (as documented) at patient's floor/unit and/or counseling patient: Coding Level of Care Code 61794 SUB INP/OBS CARE 3/50MIN Diagnoses Acute respiratory failure with hypoxia J96.01 Chronic heart failure with preserved ejection fraction I50.32 Heart failure chronicity: chronic COVID-19 U07.1 ESRD on dialysis N18.6; Z99.2 Anemia of chronic disease D63.8 Cellulitis of right lower extremity L03.115 Hx of left BKA Z89.512 CAD, multiple vessel I25.10 (2) (HFpEF) heart failure with preserved ejection fraction Heart failure chronicity: chronic Qualified Code(s): I50.32 - Chronic diastolic (congestive) heart failure
[2023-11-07] MEDS: CARBOHYDRATES FOR HYPOGLYCEMIA PO PRN (15:15)
[2023-11-07] MEDS: ZOLPIDEM TARTRATE 5 MG TAB PO SCH (20:14)
[2023-11-07] MEDS: traZODone HCL 100 MG TAB PO SCH (20:16)
[2023-11-07] MEDS: rOPINIRole HCL 1 MG TABLET PO SCH (20:16)
--- NOTE | 2023-11-08 07:20 | XRay Report ---
XR chest 1V portable HISTORY: 73 years-old Male CHF acute shortness of breath with congestive heart failure COMPARISON: 11/06/2023 TECHNIQUE: AP view the chest FINDINGS: Dual lumen right internal jugular central venous catheter is in place. Tip projects over the distal S VC. There are median sternotomy wires. Cardiomegaly is again noted. There is no pneumothorax. Small b ilateral pleural effusions with bibasilar opacities are unchanged. Pulmonary edema has worsened. IMPRESSION: 1. Cardiomegaly with progressively worsened pulmonary edema. 2. Small pleural effusions redemonstrated along with bibasilar opacities. ACT 112: Negative or not required by law. The above report was generated using voice recognition software. It may contain grammatical, syntax o r spelling errors. Electronically signed by: Loyd Buck M.D. 11/08/2023 7:18 AM
[2023-11-08 07:41] LABS: Basophils # (auto) 0.04 K/uL (0.00-0.20); Basophils % (auto) 0.6 %; Eosinophils # (auto) 0.22 K/uL (0.00-0.50); Eosinophils % (auto) 3.4 %; Hematocrit (blood only) 30.9 % (42.0-52.0); Immature Granulocytes # (auto) 0.02 K/uL (0.01-0.20); Immature Granulocytes % (auto) 0.3 %; Lymphocytes # (auto) 0.47 K/uL (1.20-3.40); Lymphocytes % (auto) 7.3 %; Mean Corpuscular Hemoglobin 30.8 pg (25.0-34.0); Mean Corpuscular Hgb Conc 32.4 g/dL (32.0-36.0); Mean Corpuscular Volume 95.1 fL (80.0-100.0); Mean Platelet Volume 13.3 fL (9.4-12.4); Monocytes # (auto) 0.78 K/uL (0.11-0.59); Monocytes % (auto) 12.1 %; Neutrophils # (auto) 4.91 K/uL (1.40-6.50); Neutrophils % (auto) 76.3 %; Platelet Count 101 K/uL (130-400); RDW Coefficient of Variation 15.2 % (11.5-14.5); RDW Standard Deviation 52.9 fL (36.4-46.3); Red Blood Count 3.25 M/uL (4.70-6.10); White Blood Count 6.44 K/ul (4.8-10.8)
[2023-11-08 08:17] LABS: BUN Creatinine Ratio 14.1 (10-20); Calcium 8.3 mg/dl (8.6-10.3); Creatinine Clr Calc Pharmacy 17.3 ml/min; Est GFR (African American) 13.4 ml/min; Est GFR (Non-African American) 11.5 ml/min; Potassium 4.5 mmol/L (3.5-5.1)
[2023-11-08] MEDS: INSULIN HUMAN NPH SC SCH (08:52)
[2023-11-08] MEDS ORDERED: Continuous Glucose Monitor SCH (09:45)
--- NOTE | 2023-11-08 09:47 | Nephrology Progress Note ---
Date of Service November 08, 2023 Assessment & Plan (1) ESRD on dialysis: Plan: ESRD attributed to DKD. Maintained on HD TTS at [facility] under the care of Dr. Richardson. Rx: 3.5 hr, 180 optiflux, 400/800, 3K 2.5Ca 32HCO3 140Na, RIJ TDC + R RC AVF (placed 01/[address] Howard). Due to difficulty cannulating AVF, TDC has been used for treatment. EDW 105 kg. Continues to have evidence of volume overload. Orders for a short HD treatment today were entered into the EHR and reviewed with the c consultant. Continue Bumex to encourage urine output. Medications are dosed for IHD. Renal diet - strict 1.2 L daily fluid restriction and low sodium. Continue calcitriol per home Rx. (2) COVID-19: (3) Anemia of chronic disease: Plan: Hgb stable at ~10. Venofer 100 mg IV provided with HD on Wednesday. BASILIO therapy held pending iron loading. Admission and Anticipated Discharge Date Admission Date: November 06, 2023 Subjective No acute events overnight. 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 He slept well last night. No fevers or chills. No chest pains or palpitations. No cough. Denies significant orthopnea. Review of Systems Review of Systems: All systems reviewed & are unremarkable except as noted in HPI & below Physical Exam Constitutional: well developed; no acute distress Eyes: no scleral abnormality and no corneal abnormality ENMT: Mouth: no oral mucosal abnormality and oral mucous membranes not dry Neck: normal visual inspection and trachea midline Respiratory: normal respiratory effort Auscultation: lungs clear to auscultation bilaterally, + diminished lung sounds and + rales (few soft) Cardiovascular: Rate/Rhythm: regular rate Heart Sounds: normal S1 and normal S2 Extremities: + edema (RLE) and + AV fistula (L RC AVF + bruit) Musculoskeletal: Extremities: no cyanosis and no clubbing Skin: normal turgor; no lesions Neurologic: Motor/Sensory: no tremor and no asterixis Psychiatric: Orientation: alert and oriented x 3 Results & Data Vital Signs (Past 12 Hours) Vital Signs Temp Pulse Pulse Resp BP Pulse Ox Pulse Ox 11/08/23 09:19 11/08/23 08:13 36.5 C 83 20 167/73 H 97 11/08/23 06:55 83 11/08/23 06:00 97 11/08/23 03:14 36.4 C L 71 16 128/58 L 91 11/07/23 22:22 36.4 C L 66 16 136/54 L 94 11/07/23 21:59 72 O2 Del Method O2 Del Method O2 Flow Rate O2 Flow Rate 11/08/23 09:19 Nasal Cannula 2 11/08/23 08:13 Room Air 11/08/23 06:55 11/08/23 06:00 Nasal Cannula 3 11/08/23 03:14 Nasal Cannula 2 11/07/23 22:22 Nasal Cannula 2 11/07/23 21:59 Laboratory Results Laboratory Results - last 24 hr 11/07/23 11/07/23 11/07/23 11:22 15:10 15:29 WBC RBC Hgb Hct MCV MCH MCHC RDW Std Deviation RDW Coeff of Jose Plt Count MPV Immature Gran % (Auto) Neut % (Auto) Lymph % (Auto) [place] % (Auto) Eos % (Auto) Baso % (Auto) Neut # (Auto) Lymph # (Auto) [place] # (Auto) Eos # (Auto) Baso # (Auto) Immature Gran # (Auto) Sodium Potassium Chloride Carbon Dioxide Anion Gap BUN Creatinine Est Cr Clr Drug Dosing Est GFR ( Amer) Est GFR (Non-Af Amer) BUN/Creatinine Ratio Glucose POC Glucose 198 H 42 L* 71 Calcium 11/07/23 11/07/23 11/07/23 16:37 16:38 16:54 WBC RBC Hgb Hct MCV MCH MCHC RDW Std Deviation RDW Coeff of Jose Plt Count MPV Immature Gran % (Auto) Neut % (Auto) Lymph % (Auto) [place] % (Auto) Eos % (Auto) Baso % (Auto) Neut # (Auto) Lymph # (Auto) [place] # (Auto) Eos # (Auto) Baso # (Auto) Immature Gran # (Auto) Sodium Potassium Chloride Carbon Dioxide Anion Gap BUN Creatinine Est Cr Clr Drug Dosing Est GFR ( Amer) Est GFR (Non-Af Amer) BUN/Creatinine Ratio Glucose POC Glucose 58 L* 60 L* 95 Calcium 11/07/23 11/07/23 11/08/23 17:49 20:22 07:21 WBC 6.44 RBC 3.25 L Hgb 10.0 L Hct 30.9 L MCV 95.1 MCH 30.8 MCHC 32.4 RDW Std Deviation 52.9 H RDW Coeff of Jose 15.2 H Plt Count 101 L MPV 13.3 H Immature Gran % (Auto) 0.3 Neut % (Auto) 76.3 Lymph % (Auto) 7.3 [place] % (Auto) 12.1 Eos % (Auto) 3.4 Baso % (Auto) 0.6 Neut # (Auto) 4.91 Lymph # (Auto) 0.47 L [place] # (Auto) 0.78 H Eos # (Auto) 0.22 Baso # (Auto) 0.04 Immature Gran # (Auto) 0.02 Sodium 136 Potassium 4.5 Chloride 103 Carbon Dioxide 24 Anion Gap 9 BUN 65 H D Creatinine 4.62 H* D Est Cr Clr Drug Dosing 17.3 Est GFR ( Amer) 13.4 Est GFR (Non-Af Amer) 11.5 BUN/Creatinine Ratio 14.1 Glucose 193 H POC Glucose 128 H 187 H Calcium 8.3 L 11/08/23 07:59 WBC RBC Hgb Hct MCV MCH MCHC RDW Std Deviation RDW Coeff of Jose Plt Count MPV Immature Gran % (Auto) Neut % (Auto) Lymph % (Auto) [place] % (Auto) Eos % (Auto) Baso % (Auto) Neut # (Auto) Lymph # (Auto) [place] # (Auto) Eos # (Auto) Baso # (Auto) Immature Gran # (Auto) Sodium Potassium Chloride Carbon Dioxide Anion Gap BUN Creatinine Est Cr Clr Drug Dosing Est GFR ( Amer) Est GFR (Non-Af Amer) BUN/Creatinine Ratio Glucose POC Glucose 230 H Calcium PG Care Time/CCT Total # of Minutes Spent Total Time Spent with Patient: Total time spent is greater than 50% in coordination of care (as documented) at patient's floor/unit and/or counseling patient: Coding Level of Care Code 06077 SUB INP/OBS CARE 3/50MIN Diagnoses ESRD on dialysis N18.6; Z99.2 COVID-19 U07.1 Anemia of chronic disease D63.8
--- NOTE | 2023-11-08 19:46 | Hospitalist Progress Note ---
Date of Service November 08, 2023 Assessment & Plan (1) Acute respiratory failure with hypoxia: Plan: Secondary to volume overload from ESRD requiring HD as well as COVID-19 infection CXR with pulm edema and cardiomegaly Requiring supplemental oxygen per nasal cannula but now weaned to room air after receiving HD x 2 Continue Bumex Continue daily weights, low Na+ diet, I/Os, fluid restrict (2) (HFpEF) heart failure with preserved ejection fraction: Plan: Acute on chronic Hemodialysis to correct fluid overload. Improving. (3) COVID-19: Plan: Positivity by nasal swab. With SOB, hypoxia which is more likely related to volume overload No treatment indicated (4) ESRD on dialysis: Plan: Nephrology consultation requested. He underwent hemodialysis November 05 and again on . FOllow BMP (5) Anemia of chronic disease: Plan: No evidence of acute blood loss. Serial labs (6) Cellulitis of right lower extremity: Plan: Recurrent. Improving. Continue on cefepime (7) Hx of left BKA: Plan: Supportive care (8) CAD, multiple vessel: Plan: Stable. Continue ASA, statin, metoprolol, and isosorbide Plan DVT proph-change Lovenox to heparin SQ given renal function down Dispo-continued stay but improving and may be able to return home in 1-2 days Admission and Anticipated Discharge Date Admission Date: November 06, 2023 Subjective Pt had dialysis today and had 3.5L removed, feels better, not SOB, weaned off supplemental O2. No CP. Feels right leg less swollen. Tele with NSR, frequent PVCs, PACs, and bigem , one 7 beat run of VT Physical Exam Constitutional: WD/WN, vitals as above Respiratory: normal respiratory effort; no cough Auscultation: + crackles (left base); no rhonchi and no wheezes Cardiovascular: Rate/Rhythm: regular rate and regular rhythm (with frequent ectopy) Extremities: + edema (right leg with 2+ pitting edema) Gastrointestinal (Abdomen): normal bowel sounds, soft, nontender, no hepatosplenomegaly Skin: + lesion (right leg with large blister,s everal small ulcerations) Psychiatric: A+Ox3, euthymic affect Results & Data Results & Data Vital Signs (Past 12 Hours) Vital Signs Temp Pulse Pulse Pulse Resp BP BP 11/08/23 15:36 36.3 C L 67 16 122/49 L 11/08/23 15:15 57 L 11/08/23 15:11 61 11/08/23 14:00 36.5 C 61 151/61 H 11/08/23 13:30 61 135/80 11/08/23 13:00 52 L 169/77 H 11/08/23 12:30 61 153/71 H 11/08/23 12:00 64 153/68 H 11/08/23 11:30 59 L 128/68 11/08/23 11:12 36.5 C 57 L 11/08/23 10:58 36.5 C 60 18 102/49 L 11/08/23 09:19 11/08/23 08:13 36.5 C 83 20 167/73 H Pulse Ox O2 Del Method O2 Flow Rate 11/08/23 15:36 93 Room Air 11/08/23 15:15 11/08/23 15:11 11/08/23 14:00 11/08/23 13:30 11/08/23 13:00 11/08/23 12:30 11/08/23 12:00 11/08/23 11:30 11/08/23 11:12 11/08/23 10:58 94 Room Air 11/08/23 09:19 Nasal Cannula 2 11/08/23 08:13 97 Room Air Laboratory Results CBC, BMP reviewed PG Care Time/CCT Total # of Minutes Spent Total Time Spent with Patient: Total time spent is greater than 50% in coordination of care (as documented) at patient's floor/unit and/or counseling patient: Coding Level of Care Code 57639 SUB INP/OBS CARE 2/35MIN Diagnoses Acute respiratory failure with hypoxia J96.01 Chronic heart failure with preserved ejection fraction I50.32 Heart failure chronicity: chronic COVID-19 U07.1 ESRD on dialysis N18.6; Z99.2 Anemia of chronic disease D63.8 Cellulitis of right lower extremity L03.115 Hx of left BKA Z89.512 CAD, multiple vessel I25.10 (2) (HFpEF) heart failure with preserved ejection fraction Heart failure chronicity: chronic Qualified Code(s): I50.32 - Chronic diastolic (congestive) heart failure
[2023-11-08] MEDS: HEPARIN SOD 5,000 UNIT/0.5 ML VIAL SQ SCH (21:19)
[2023-11-09 07:59] LABS: BUN Creatinine Ratio 12.4 (10-20); Calcium 8.2 mg/dl (8.6-10.3); Creatinine Clr Calc Pharmacy 17.3 ml/min; Est GFR (African American) 13.5 ml/min; Est GFR (Non-African American) 11.6 ml/min; Potassium 4.1 mmol/L (3.5-5.1)
--- NOTE | 2023-11-09 10:10 | Nephrology Progress Note ---
Date of Service November 09, 2023 Assessment & Plan (1) ESRD on dialysis: Plan: ESRD attributed to DKD. Maintained on HD TTS at [facility] under the care of Dr. Richardson. Rx: 3.5 hr, 180 optiflux, 400/800, 3K 2.5Ca 32HCO3 140Na, RIJ TDC + R RC AVF (placed 01/[address] Howard). Due to difficulty cannulating AVF, TDC has been used for treatment. Orders for HD today entered into EHR and reviewed with HD RN. EDW 105 kg. Continue Bumex to encourage urine output. Medications are dosed for IHD. Renal diet - strict 1.2 L daily fluid restriction and low sodium. Continue calcitriol per home Rx. (2) COVID-19: (3) Anemia of chronic disease: Plan: Hgb stable at ~10. Venofer 100 mg IV provided with HD on Wednesday. Admission and Anticipated Discharge Date Admission Date: November 06, 2023 Subjective No acute events overnight. [place] reports some weakness but otherwise he feels well. Denies significant dyspnea. Out of bed to bathroom this AM. Tolerated HD well yesterday. No complications with treatment. Review of Systems Review of Systems: All systems reviewed & are unremarkable except as noted in HPI & below Physical Exam Constitutional: well developed; no acute distress Eyes: no scleral abnormality and no corneal abnormality ENMT: Mouth: no oral mucosal abnormality and oral mucous membranes not dry Neck: normal visual inspection and trachea midline Respiratory: normal respiratory effort Auscultation: lungs clear to auscultation bilaterally Cardiovascular: Rate/Rhythm: regular rate Heart Sounds: normal S1 and normal S2 Extremities: + edema (RLE) and + AV fistula (L RC AVF + bruit) Musculoskeletal: Extremities: no cyanosis and no clubbing Skin: normal turgor; no lesions Neurologic: Motor/Sensory: no tremor and no asterixis Psychiatric: Orientation: alert and oriented x 3 Results & Data Vital Signs (Past 12 Hours) Vital Signs Temp Pulse Pulse Resp BP Pulse Ox O2 Del Method 11/09/23 08:21 55 L 20 129/59 L 93 Room Air 11/09/23 08:07 Nasal Cannula 11/09/23 07:18 61 11/09/23 06:00 11/09/23 03:16 36.6 C 71 18 147/76 H 95 Room Air 11/09/23 03:00 36.6 C 71 18 147/76 H 95 Nasal Cannula 11/09/23 00:04 Nasal Cannula 11/08/23 23:41 36.6 C 64 16 116/54 L 97 Nasal Cannula 11/08/23 23:00 64 O2 Del Method O2 Flow Rate O2 Flow Rate 11/09/23 08:21 11/09/23 08:07 2 11/09/23 07:18 11/09/23 06:00 Nasal Cannula 2 11/09/23 03:16 11/09/23 03:00 3 11/09/23 00:04 2 11/08/23 23:41 2 11/08/23 23:00 Laboratory Results Laboratory Results - last 24 hr 11/08/23 11/08/23 11/08/23 12:09 15:24 17:04 Sodium Potassium Chloride Carbon Dioxide Anion Gap BUN Creatinine Est Cr Clr Drug Dosing Est GFR ( Amer) Est GFR (Non-Af Amer) BUN/Creatinine Ratio Glucose POC Glucose 165 H 141 H 153 H Calcium 11/08/23 11/09/23 11/09/23 20:51 06:58 07:46 Sodium 135 L Potassium 4.1 Chloride 102 Carbon Dioxide 22 Anion Gap 11 BUN 57 H Creatinine 4.58 H* Est Cr Clr Drug Dosing 17.3 Est GFR ( Amer) 13.5 Est GFR (Non-Af Amer) 11.6 BUN/Creatinine Ratio 12.4 Glucose 164 H POC Glucose 147 H 169 H Calcium 8.2 L PG Care Time/CCT Total # of Minutes Spent Total Time Spent with Patient: Total time spent is greater than 50% in coordination of care (as documented) at patient's floor/unit and/or counseling patient: Coding Level of Care Code 47321 SUB INP/OBS CARE 3/50MIN Diagnoses ESRD on dialysis N18.6; Z99.2 COVID-19 U07.1 Anemia of chronic disease D63.8
[2023-11-09] MEDS: CEFEPIME 1,000 MG in SYRINGE 0 ML IV SCH (13:03)
--- NOTE | 2023-11-09 16:20 | Cardiology Consultation ---
Date of Consultation November 09, 2023 Assessment & Plan (1) Frequent PVCs: Plan 1. Frequent PVCs: He has frequent PVCs, I am not sure we have ever quantified them (which usually is done with a Holter monitor, it is hard to do on telemetry). He probably has more than 10% at this point, if so it could affect his left ventricular function but it does not seem to have done so. Whether is symptomatic or not is hard to tell. Other than as a cause of left ventricular dysfunction I do not know that frequent premature ventricular beats would promote congestive heart failure but it could adversely affect cardiac output. At this point we could consider going up on beta-blockade (which I would recommend in any case but we may need to be careful that it is not reduced due to bradycardia when the bradycardia may actually be premature beats). If that does not work or if we are unable to titrate to a reasonable dose (enough to suppress the PVCs) then we could consider amiodarone. I do not think I would use any other antiarrhythmic agents given his coronary disease and dialysis. History of Present Illness Reason for Consultation: Frequent premature ventricular beats Attending Physician: Jess Link MD History of Present Illness This is a 73-year-old male who has seen a number of us in our cardiology group and I had evaluated in consultation on May 30, 2023 at which time he had very frequent premature ventricular beats including ventricular bigeminy. However at that time on telemetry he was not having very frequent premature ventricular beats and it seemed unlikely to be causing a problem. In addition he has a history of coronary disease and bypass surgery in 2011 with details noted elsewhere. In May 2023 his echocardiogram suggested a mild cardiomyopathy with an ejection fraction 45 to 50%, more recently on September 29, 2023 was felt that his ejection fraction was in the normal range, probably low normal with a number of 50 to 55%. He has had difficulty with congestive heart failure and kidney disease and is now on dialysis. He has continued to have frequent premature ventricular beats and on several electrocardiograms has a bigeminal pattern. Specifically with regard to his premature beats he does not seem to have symptoms, he does not have palpitations. It is possible he has a decrease in cardiac output due to the premature beats although he is not directly aware of that. He is on low-dose beta-blockade and was reported to have a problem with beta-blockade in the past, although that may have been due to bradycardia which may well have been misinterpreted since he has frequent premature ventricular beats. I do not believe he has been tried on an antiarrhythmic. Allergies Allergy/AdvReac Type Severity Reaction Status Date / Time ofloxacin [From Floxin] Allergy Intermediate itching Verified 10/12/23 09:23 Quinolones Allergy Intermediate Itchiness Verified 10/12/23 09:23 sulfamethoxazole Allergy Intermediate Rash Verified 10/12/23 09:23 trimethoprim Allergy Intermediate Rash Verified 10/12/23 09:23 Home Medications Medication Instructions Recorded Confirmed Type latanoprost 0.005 % eye drops 1 drp OPB HS 12/27/17 10/12/23 History (Xalatan) brimonidine 0.2 % eye drops 1 drp OPB BID 12/07/20 10/12/23 History dorzolamide 2 % eye drops 1 drp OPB BID 12/07/20 10/12/23 History timolol maleate 0.5 % eye gel 1 drp OPB BID 12/07/20 10/12/23 History forming solution docusate sodium 100 mg capsule 100 mg PO BID #0 caps 09/03/23 10/12/23 Rx polyethylene glycol 3350 17 gram 17 g PO BID #0 ea 09/03/23 10/12/23 Rx oral powder packet (Miralax) tramadol 50 mg tablet 50 mg PO DAILY #30 tabs 09/08/23 10/12/23 Rx calcitriol 0.5 mcg capsule 1 mcg (2 x 0.5 mcg) PO QAM #60 caps 09/17/23 10/12/23 Rx ascorbic acid (vitamin C) 500 mg 500 mg PO QAM #90 caps 11/06/23 Rx capsule cholecalciferol (vitamin D3) 50 2,000 unit PO QAM #90 caps 11/06/23 Rx mcg (2,000 unit) capsule (Vitamin D3) cyanocobalamin (vitamin B-12) 500 1,000 mcg (2 x 500 mcg) PO QAM 11/06/23 Rx mcg tablet #180 tabs trazodone 100 mg tablet 100 mg PO HS #90 tabs 11/06/23 Rx isosorbide mononitrate 30 mg 30 mg PO QAM 90 days #90 tabs 11/08/23 Rx tablet,extended release 24 hr aspirin 81 mg tablet,delayed 81 mg PO QAM #90 tabs 11/09/23 Rx release atorvastatin 80 mg tablet (Lipitor) 80 mg PO DAILY #90 tabs 11/09/23 Rx bumetanide 1 mg tablet 1 mg PO BID #180 tabs 11/09/23 Rx hydralazine 25 mg tablet 75 mg (3 x 25 mg) PO TID 90 days 11/09/23 Rx #810 tabs insulin NPH isoph U-100 human 100 18 unit (0.18 mL) subcut BIDM #10 11/09/23 Rx unit/mL subcutaneous suspension mL (Humulin N NPH U-100 Insulin (isophane susp)) insulin regular human 100 unit/mL 1 sliding scale dose subcut 11/09/23 Rx injection solution (Humulin R USEASDIRECTD #10 mL Regular U-100 Insulin) metoprolol succinate 25 mg 25 mg PO QAM #90 tabs 11/09/23 Rx tablet,extended release 24 hr ondansetron 4 mg disintegrating 4 mg PO Q8H PRN nausea and 11/09/23 Rx tablet vomiting #90 tabs ropinirole 1 mg tablet See Rx Instructions .Route 11/09/23 Rx .COMPLEX #450 tabs sertraline 50 mg tablet 50 mg PO DAILY #90 tabs 11/09/23 Rx Patient History Medical History Chronic combined systolic and diastolic heart failure Depression Chronic kidney disease, stage 4 (severe) Diabetic peripheral 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 Restless leg syndrome Type 2 diabetes mellitus Ventricular bigeminy 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, with long-term current use of insulin (HFpEF) heart failure with preserved ejection fraction Pressure ulcer of BKA stump, stage 3 RESOLVED Influenza A virus subtype H1 2009 pandemic strain present Slow to wake up after anesthesia Wound of lower extremity RLE wound "improved" per 01/27/21 wound clinic visit ([facility]); surgeon aware of patient's wound hx per 01/2021 office visit note; "only has a little scab there now, keeps it covered to protect it." GERD (gastroesophageal reflux disease) History of TIA (transient ischemic attack) ~2009>over his left eye, no residual symptoms Surgical History S/P arteriovenous (AV) fistula creation left>no currently having dialysis History of esophagogastroduodenoscopy (EGD) History of colonoscopy S/P lumbar laminectomy S/P foot surgery S/P eye surgery B/L x3 (for glaucoma) S/P CABG x 4 (2011) CABG x4 (2011), [facility]; f/u PCP History of lumbar discectomy History of tonsillectomy Family History Father , age 78 with prostate cancer Colorectal cancer Cardiovascular disease Diabetes Prostate cancer Grandmother (Maternal) Diabetes Mother , age 54 of throat cancer Throat cancer Denies family history of Ovarian cancer Myocardial infarction Breast cancer Social History Smoking Status: Never smoker Second Hand Exposure: No; Do You Dip or Chew Tobacco: No; Hx Alcohol Use: No Hx Substance Use: No Preferred Language: [place] Communication Ability: Effective Visual Impairment: No Limitations Hearing Ability: Normal Direct Customer Service Representative Required: No Beliefs That Will Affect Care: None marital status: / marital status details: lost August 2021 Current Living Situation: Alone current occupational status: retired current occupation: How many Children do You have: 2 other: Retired age 63-1/2. Feels Safe at Home: No Is there a partner from a previous relationship who is making you feel unsafe now?: No Childhood Exposure to Second-Hand Smoke: No Diet: regular caffeine: No during the past year weight has: remained stable Dental Care, Regularly: Yes Physical Activity Frequency: Other Physical Activity Frequency Comment: limited d/t disability Seatbelt Use: always Sunscreen Use: Yes Assistive Devices: Glasses, Prosthesis, Walker and Wheelchair Results & Data Vital Signs (Past 12 Hours) Vital Signs Temp Pulse Pulse Pulse Resp BP BP 11/09/23 14:15 62 11/09/23 12:10 36.6 C 60 157/55 H 11/09/23 12:00 66 150/67 H 11/09/23 11:30 65 118/100 11/09/23 11:00 55 L 152/66 H 11/09/23 10:30 67 137/63 11/09/23 10:00 56 L 138/62 11/09/23 09:30 60 125/57 L 11/09/23 09:03 36.6 C 61 11/09/23 08:21 55 L 20 129/59 L 11/09/23 08:07 11/09/23 07:18 61 11/09/23 06:00 Pulse Ox O2 Del Method O2 Del Method O2 Flow Rate O2 Flow Rate 11/09/23 14:15 11/09/23 12:10 11/09/23 12:00 11/09/23 11:30 11/09/23 11:00 11/09/23 10:30 11/09/23 10:00 11/09/23 09:30 11/09/23 09:03 11/09/23 08:21 93 Room Air 11/09/23 08:07 Nasal Cannula 2 11/09/23 07:18 11/09/23 06:00 Nasal Cannula 2 Laboratory Results Comprehensive Metabolic Panel 11/09/23 Range/Units 06:58 Sodium 135 L (136-145) mmol/L Potassium 4.1 (3.5-5.1) mmol/L Chloride 102 (98-107) mmol/L Carbon Dioxide 22 (21-32) mmol/L BUN 57 H (6-23) mg/dl Creatinine 4.58 H* (0.6-1.4) mg/dl Glucose 164 H (70-99(Fasting)) mg/dl Calcium 8.2 L (8.6-10.3) mg/dl Intake and Output 11/09/23 11/09/23 11/09/23 06:59 14:59 22:59 Intake Total 240 / 240 Output Total 100 / 201 Balance -100 / 279 240 / 240 Intake: Oral 240 / 240 Output: Urine 100 / 200 Other: Hemodialysis Ultrafiltration 3,000 Amount Other Intake Source Sips Weight 116.5 kg 94.6 kg Weight Measurement Method Built in Bedscale Built in Bedscale Patient Weight 11/10/23 06:59 Weight 94.6 kg PG Care Time/CCT Total # of Minutes Spent Total Time Spent with Patient: Total time spent is greater than 50% in coordination of care (as documented) at patient's floor/unit and/or counseling patient: Coding Diagnoses Frequent PVCs I49.3
[2023-11-09] MEDS ORDERED: ZOLPIDEM TARTRATE 5 MG TAB PO PRN (16:58)
--- NOTE | 2023-11-09 16:59 | Hospitalist Progress Note ---
Date of Service November 09, 2023 Assessment & Plan (1) Acute respiratory failure with hypoxia: Plan: Secondary to volume overload from ESRD requiring HD as well as COVID-19 infection CXR with pulm edema and cardiomegaly Requiring supplemental oxygen per nasal cannula but now weaned to room air after receiving HD x 3 with numerous liters of fluid removed, dry weight is estimated to be 105 kg and he is still at 116 kg Continue Bumex but changed from IV to p.o. 1 mg twice daily Continue daily weights, low Na+ diet, I/Os, fluid restrict (2) (HFpEF) heart failure with preserved ejection fraction: Plan: Acute on chronic Hemodialysis to correct fluid overload. Improving. Continue blood pressure control (3) Frequent PVCs: Plan: With very frequent PVCs and ventricular bigeminy. Question if this is contributing to low cardiac output and therefore heart failure Consult cardiology appreciated Increase Toprol-XL to 25 Mg p.o. twice daily His presumed bradycardia in the 50s and 60s may be false due to frequent PVCs as per cardiology Continue to monitor on telemetry Ideally would need a Holter monitor to estimate the total percentage of PVCs of his total daily beats Keep electrolytes replete-check magnesium in the morning, potassium is normal (4) COVID-19: Plan: Positivity by nasal swab. With SOB, hypoxia which is more likely related to volume overload No treatment indicated (5) ESRD on dialysis: Plan: Nephrology consultation requested. He underwent hemodialysis November 05 and again on , and and . FOllow BMP (6) Anemia of chronic disease: Plan: Hemoglobin around 10 Was provided IV Venofer and will be managed by nephrology at dialysis (7) Cellulitis of right lower extremity: Plan: Recurrent. Much improved, continue wound care, continue on cefepime x 5-day course-last day of therapy will be 11/09 Renally dosed cefepime-decrease to 1000 mg daily as per pharmacy recommendation (8) Hx of left BKA: Plan: Supportive care, has prostatic (9) CAD, multiple vessel: Plan: Stable. Continue ASA, statin, metoprolol, and isosorbide Plan DVT proph- heparin SQ Dispo-continued stay but improving and may be able to return home tomorrow. Consult PT/OT Admission and Anticipated Discharge Date Admission Date: November 06, 2023 Subjective Patient has no complaints today. He had dialysis and had another 3 L removed. He denies shortness of breath or cough. No chest pain. He has not been out of bed much but is in the chair today. Telemetry with sinus rhythm, first-degree AV block, frequent PVCs and bigeminy, rates in the 50s to 60s I discussed his case with cardiology Physical Exam Constitutional: WD/WN, vitals as above Respiratory: normal respiratory effort; no cough Auscultation: + crackles (left base); no rhonchi and no wheezes Cardiovascular: Rate/Rhythm: regular rate and regular rhythm (with frequent ectopy) Extremities: + edema (right leg with 1+ pitting edema improving) Gastrointestinal (Abdomen): normal bowel sounds, soft, nontender, no hepatosplenomegaly Skin: + lesion (right leg with large blister,s everal small ulcerations) and + erythema (Very minimal and distal leg around ulcers) Psychiatric: A+Ox3, euthymic affect Results & Data Results & Data Vital Signs (Past 12 Hours) Vital Signs Temp Pulse Pulse Pulse Resp BP BP 11/09/23 14:15 62 11/09/23 12:10 36.6 C 60 157/55 H 11/09/23 12:00 66 150/67 H 11/09/23 11:30 65 118/100 11/09/23 11:00 55 L 152/66 H 11/09/23 10:30 67 137/63 11/09/23 10:00 56 L 138/62 11/09/23 09:30 60 125/57 L 11/09/23 09:03 36.6 C 61 11/09/23 08:21 55 L 20 129/59 L 11/09/23 08:07 11/09/23 07:18 61 11/09/23 06:00 Pulse Ox O2 Del Method O2 Del Method O2 Flow Rate O2 Flow Rate 11/09/23 14:15 11/09/23 12:10 11/09/23 12:00 11/09/23 11:30 11/09/23 11:00 11/09/23 10:30 11/09/23 10:00 11/09/23 09:30 11/09/23 09:03 11/09/23 08:21 93 Room Air 11/09/23 08:07 Nasal Cannula 2 11/09/23 07:18 11/09/23 06:00 Nasal Cannula 2 Laboratory Results BMP reviewed PG Care Time/CCT Total # of Minutes Spent Total Time Spent with Patient: Total time spent is greater than 50% in coordination of care (as documented) at patient's floor/unit and/or counseling patient: Coding Level of Care Code 44645 SUB INP/OBS CARE 2/35MIN Diagnoses Acute respiratory failure with hypoxia J96.01 Chronic heart failure with preserved ejection fraction I50.32 Heart failure chronicity: chronic Frequent PVCs I49.3 COVID-19 U07.1 ESRD on dialysis N18.6; Z99.2 Anemia of chronic disease D63.8 Cellulitis of right lower extremity L03.115 Hx of left BKA Z89.512 CAD, multiple vessel I25.10 (2) (HFpEF) heart failure with preserved ejection fraction Heart failure chronicity: chronic Qualified Code(s): I50.32 - Chronic diastolic (congestive) heart failure
[2023-11-09] MEDS: METOPROLOL SUCC 25MG EXT REL TAB PO ONE (17:46)
[2023-11-09] MEDS ORDERED: METOPROLOL SUCC 25MG EXT REL TAB PO SCH (21:00)
[2023-11-10 06:10] LABS: Basophils # (auto) 0.03 K/uL (0.00-0.20); Basophils % (auto) 0.7 %; Eosinophils # (auto) 0.11 K/uL (0.00-0.50); Eosinophils % (auto) 2.7 %; Hematocrit (blood only) 28.3 % (42.0-52.0); Hemoglobin 9.2 g/dl (14.0-18.0); Immature Granulocytes # (auto) 0.01 K/uL (0.01-0.20); Immature Granulocytes % (auto) 0.2 %; Lymphocytes # (auto) 0.43 K/uL (1.20-3.40); Lymphocytes % (auto) 10.7 %; Mean Corpuscular Hemoglobin 30.7 pg (25.0-34.0); Mean Corpuscular Hgb Conc 32.5 g/dL (32.0-36.0); Mean Corpuscular Volume 94.3 fL (80.0-100.0); Mean Platelet Volume 13.3 fL (9.4-12.4); Monocytes # (auto) 0.53 K/uL (0.11-0.59); Monocytes % (auto) 13.2 %; Neutrophils # (auto) 2.91 K/uL (1.40-6.50); Neutrophils % (auto) 72.5 %; Platelet Count 73 K/uL (130-400); RDW Coefficient of Variation 15.2 % (11.5-14.5); RDW Standard Deviation 51.8 fL (36.4-46.3); White Blood Count 4.02 K/ul (4.8-10.8)
[2023-11-10 06:19] LABS: BUN Creatinine Ratio 11.1 (10-20); Calcium 8.4 mg/dl (8.6-10.3); Creatinine Clr Calc Pharmacy 16.1 ml/min; Est GFR (African American) 14.1 ml/min; Est GFR (Non-African American) 12.1 ml/min; Potassium 4.4 mmol/L (3.5-5.1)
[2023-11-10] MEDS: METOPROLOL SUCC 25MG EXT REL TAB PO SCH (07:57)
[2023-11-10] MEDS ORDERED: METOPROLOL SUCC 50MG EXT REL TAB PO SCH (09:00)
[2023-11-10] MEDS ORDERED: METOPROLOL SUCC 25MG EXT REL TAB PO SCH (09:00)
[2023-11-10] MEDS: BUMETANIDE 1 MG TAB PO SCH (09:29)
--- NOTE | 2023-11-10 10:23 | Nephrology Progress Note ---
Date of Service November 10, 2023 Assessment & Plan (1) ESRD on dialysis: Plan: ESRD attributed to DKD. Maintained on HD TTS at [facility] under the care of Dr. Richardson. Rx: 3.5 hr, 180 optiflux, 400/800, 3K 2.5Ca 32HCO3 140Na, RIJ TDC + R RC AVF (placed 01/[address] Howard). Due to difficulty cannulating AVF, TDC has been used for treatment. Completed HD yesterday with adequate UF and clearance. Volume status acceptable. Electrolytes controlled. Next HD planned for tomorrow. EDW 105 kg --> this will likely require adjustment. Weight was 94 kg post treatment yesterday. Continue Bumex to encourage urine output. Medications are dosed for IHD. Renal diet - strict 1.2 L daily fluid restriction and low sodium. Continue calcitriol per home Rx. (2) COVID-19: (3) Anemia of chronic disease: Plan: Hgb stable at ~10. Venofer 100 mg IV provided with HD on Wednesday. Admission and Anticipated Discharge Date Admission Date: November 06, 2023 Subjective No acute events overnight. [place] tolerated HD well yesterday. He is breathing comfortably. Out of bed with RN this AM. No fevers or chills. Denies chest pains or palpitations. Review of Systems Review of Systems: All systems reviewed & are unremarkable except as noted in HPI & below Physical Exam Constitutional: well developed; no acute distress Eyes: no scleral abnormality and no corneal abnormality ENMT: Mouth: no oral mucosal abnormality and oral mucous membranes not dry Neck: normal visual inspection and trachea midline Respiratory: normal respiratory effort Auscultation: lungs clear to auscultation bilaterally Cardiovascular: Rate/Rhythm: regular rate Heart Sounds: normal S1 and normal S2 Extremities: + edema (RLE) and + AV fistula (L RC AVF + bruit) Musculoskeletal: Extremities: no cyanosis and no clubbing Skin: normal turgor; no lesions Neurologic: Motor/Sensory: no tremor and no asterixis Psychiatric: Orientation: alert and oriented x 3 Results & Data Vital Signs (Past 12 Hours) Vital Signs Temp Pulse Pulse Resp BP Pulse Ox O2 Del Method 11/10/23 07:48 36.5 C 60 16 140/68 91 Room Air 11/10/23 03:50 36.6 C 67 18 116/51 L 97 Room Air 11/09/23 23:17 36.5 C 62 18 138/64 94 Room Air Laboratory Results Laboratory Results - last 24 hr 11/09/23 11/09/23 11/09/23 12:09 16:50 20:25 WBC RBC Hgb Hct MCV MCH MCHC RDW Std Deviation RDW Coeff of Jose Plt Count MPV Immature Gran % (Auto) Neut % (Auto) Lymph % (Auto) Glynn % (Auto) Eos % (Auto) Baso % (Auto) Neut # (Auto) Lymph # (Auto) Glynn # (Auto) Eos # (Auto) Baso # (Auto) Immature Gran # (Auto) Sodium Potassium Chloride Carbon Dioxide Anion Gap BUN Creatinine Est Cr Clr Drug Dosing Est GFR ( Amer) Est GFR (Non-Af Amer) BUN/Creatinine Ratio Glucose POC Glucose 187 H 249 H 245 H Calcium Magnesium 11/10/23 11/10/23 05:38 08:18 WBC 4.02 L RBC 3.00 L Hgb 9.2 L Hct 28.3 L MCV 94.3 MCH 30.7 MCHC 32.5 RDW Std Deviation 51.8 H RDW Coeff of Jose 15.2 H Plt Count 73 L MPV 13.3 H Immature Gran % (Auto) 0.2 Neut % (Auto) 72.5 Lymph % (Auto) 10.7 Glynn % (Auto) 13.2 Eos % (Auto) 2.7 Baso % (Auto) 0.7 Neut # (Auto) 2.91 Lymph # (Auto) 0.43 L Glynn # (Auto) 0.53 Eos # (Auto) 0.11 Baso # (Auto) 0.03 Immature Gran # (Auto) 0.01 Sodium 135 L Potassium 4.4 Chloride 102 Carbon Dioxide 23 Anion Gap 10 BUN 49 H Creatinine 4.43 H Est Cr Clr Drug Dosing 16.1 Est GFR ( Amer) 14.1 Est GFR (Non-Af Amer) 12.1 BUN/Creatinine Ratio 11.1 Glucose 223 H POC Glucose 214 H Calcium 8.4 L Magnesium 2.0 PG Care Time/CCT Total # of Minutes Spent Total Time Spent with Patient: Total time spent is greater than 50% in coordination of care (as documented) at patient's floor/unit and/or counseling patient: Coding Level of Care Code 29279 SUB INP/OBS CARE MIN Diagnoses ESRD on dialysis N18.6; Z99.2 COVID-19 U07.1 Anemia of chronic disease D63.8
--- NOTE | 2023-11-10 13:59 | Discharge Summary ---
Discharge Summary Date of Service November 10, 2023 Principal Dx & Hospital Course #1 = Principal Diagnosis (1) Acute respiratory failure with hypoxia: Secondary to volume overload from ESRD requiring HD as well as COVID-19 infection CXR with pulm edema and cardiomegaly Requiring supplemental oxygen per nasal cannula but now weaned to room air after receiving HD x 3 with numerous liters of fluid removed, dry weight is now 94kg Continue Bumex p.o. 1 mg twice daily (2) (HFpEF) heart failure with preserved ejection fraction: Acute on chronic Hemodialysis to correct fluid overload. Much improved Continue blood pressure control Continue fluid restriction 1200mL/day, low sodium/renal diet dry weight now 94kg (3) Frequent PVCs: With very frequent PVCs and ventricular bigeminy. Question if this is cont ributing to low cardiac output and therefore heart failure Consult cardiology appreciated-plan to up titrate Toprol XL and if not able to further suppress PVCs, could consider amiodarone Increased Toprol-XL to 25 Mg p.o. twice daily and while resting HR remained stable at 60 beats per minute, he continues to have frequent bigeminy the majority of the time His presumed bradycardia in the 50s and 60s may be false due to frequent PVCs as per cardiology Ideally would need a Holter monitor to estimate the total percentage of PVCs of his total daily beats-can be arranged as an outpt Follow up with CHF clinic and Cardiology as outpt (4) COVID-19: Positivity by nasal swab. With SOB, hypoxia which is more likely related to volume overload No treatment indicated (5) ESRD on dialysis: Nephrology consultation requested. He underwent hemodialysis November 05 and again on , and and . continue usual schedule after discharge new dry weight 94kg (6) Anemia of chronic disease: Hemoglobin around 10 Was provided IV Venofer and will be managed by nephrology at dialysis (7) Cellulitis of right lower extremity: Recurrent. Much improved, continue wound care, continue on cefepime x 5-day course-last day of therapy will be 11/09 wound care by RN at home (8) Hx of left BKA: Supportive care, has prosthesis (9) CAD, multiple vessel: Stable. Continue ASA, statin, metoprolol, and isosorbide Plan DVT proph- heparin SQ Dispo-dc to home with home health Notes For Next Care Provider Needs Holter monitor as outpt-communicated this with Carmenza Casanova of CHF clinic New dry weight 94kg Medication Changes From Visit Increased Toprol XL to 25mg po bid Added Ambien 5mg po hs prn insomnia for occasional use Decreased NPH to 10 units bid due to hypoglycemia Admission HPI Per Admitting Provider The patient is a 73-year-old male with a past medical history including ventricular bigeminy, HFpEF, ESRD on dialysis, anemia of chronic disease, diabetes mellitus, vitamin D deficiency, history of CVA, peripheral positional vertigo, nephrotic syndrome, mild JEREMIE, proliferative retinopathy due to diabetes mellitus, and lumbar degenerative disc disease. The patient contacted EMS due to concerns regarding increasing shortness of breath that began earlier in the evening. He denies any recent travels or sick exposures. He does go to dialysis on Wednesday, and Wednesday, and has not missed any dialysis states. In the emergency department, he was found to be hypoxic, and was placed on BiPAP with improvement in oxygenation. Chest x-ray showed CHF/fluid overload, and patient did undergo a Bio[employer] test which was positive for COVID- 19. Discharge Exam Constitutional WD/WN, vitals as above Respiratory normal respiratory effort; no cough Auscultation: + crackles (left base); no rhonchi and no wheezes Cardiovascular Rate/Rhythm: regular rate and regular rhythm (with frequent ectopy) Extremities: + edema (right leg with 1+ pitting edema improving) Gastrointestinal (Abdomen) normal bowel sounds, soft, nontender, no hepatosplenomegaly Skin + lesion (right leg with large blister,several small ulcerations) and + erythema (Very minimal and distal leg around ulcers) Psychiatric A+Ox3, euthymic affect Updated Medication List Medication Instructions Recorded Confirmed Type latanoprost 0.005 % eye drops 1 drp OPB HS 12/27/17 10/12/23 History (Xalatan) brimonidine 0.2 % eye drops 1 drp OPB BID 12/07/20 10/12/23 History dorzolamide 2 % eye drops 1 drp OPB BID 12/07/20 10/12/23 History timolol maleate 0.5 % eye gel 1 drp OPB BID 12/07/20 10/12/23 History forming solution docusate sodium 100 mg capsule 100 mg PO BID #0 caps 09/03/23 10/12/23 Rx polyethylene glycol 3350 17 gram 17 g PO BID #0 ea 09/03/23 10/12/23 Rx oral powder packet (Miralax) tramadol 50 mg tablet 50 mg PO DAILY #30 tabs 09/08/23 10/12/23 Rx calcitriol 0.5 mcg capsule 1 mcg (2 x 0.5 mcg) PO QAM #60 caps 09/17/23 10/12/23 Rx ascorbic acid (vitamin C) 500 mg 500 mg PO QAM #90 caps 11/06/23 Rx capsule cholecalciferol (vitamin D3) 50 2,000 unit PO QAM #90 caps 11/06/23 Rx mcg (2,000 unit) capsule (Vitamin D3) cyanocobalamin (vitamin B-12) 500 1,000 mcg (2 x 500 mcg) PO QAM 11/06/23 Rx mcg tablet #180 tabs trazodone 100 mg tablet 100 mg PO HS #90 tabs 11/06/23 Rx isosorbide mononitrate 30 mg 30 mg PO QAM 90 days #90 tabs 11/08/23 Rx tablet,extended release 24 hr aspirin 81 mg tablet,delayed 81 mg PO QAM #90 tabs 11/09/23 Rx release atorvastatin 80 mg tablet (Lipitor) 80 mg PO DAILY #90 tabs 11/09/23 Rx bumetanide 1 mg tablet 1 mg PO BID #180 tabs 11/09/23 Rx hydralazine 25 mg tablet 75 mg (3 x 25 mg) PO TID 90 days 11/09/23 Rx #810 tabs insulin NPH isoph U-100 human 100 18 unit (0.18 mL) subcut BIDM #10 11/09/23 Rx unit/mL subcutaneous suspension mL (Humulin N NPH U-100 Insulin (isophane susp)) insulin regular human 100 unit/mL 1 sliding scale dose subcut 11/09/23 Rx injection solution (Humulin R USEASDIRECTD #10 mL Regular U-100 Insulin) ondansetron 4 mg disintegrating 4 mg PO Q8H PRN nausea and 11/09/23 Rx tablet vomiting #90 tabs ropinirole 1 mg tablet See Rx Instructions .Route 11/09/23 Rx .COMPLEX #450 tabs sertraline 50 mg tablet 50 mg PO DAILY #90 tabs 11/09/23 Rx metoprolol succinate 25 mg 25 mg PO BID #60 tabs 11/10/23 Rx tablet,extended release 24 hr pantoprazole 40 mg tablet,delayed 40 mg PO QAM #30 tabs 11/10/23 Rx release zolpidem 5 mg tablet 5 mg PO HS PRN insomnia #10 tabs 11/10/23 Rx Hospital Stay Data Consultations 11/06/23 03:47 ED Decision to Admit Stat 11/06/23 06:23 Consult Nephrology Routine 11/09/23 12:53 Consult Cardiology Routine Pending Results Patient Have Any Pending Studies at Discharge: No Discharge Instructions Given to Patient (Per Discharging Provider) You were admitted with low oxygen levels from being overloaded with fluid in your lungs. This was treated with extra dialysis and your new "dry weight" should be 94 kg which is 206 lbs. Your metoprolol dose was increased to 25mg twice a day to help decrease the number of extra beats that you have as this can put strain on your heart. Please continue with your usual dialysis schedule tomorrow. You were treated with antibiotics for a leg infection but this has improved and you don't need any further antibiotics. Because of low blood sugars, your NPH dose was lowered to 10 units twice a day on discharge. You were also prescribed a small supply of Ambien to be used sparingly as needed for insomnia. If you take this every night, your body will become dependent on it and then you will have withdrawal symptoms when you stop taking it. Total Time Total Time Spent Total Time Spent (In Minutes): 40 min Total Time Includes: Examination of the Patient, Discharge Planning, Medication Reconciliation and Communication With Other Providers Coding Level of Care Code 28405 INP/OBS DISCH >30 MIN Diagnoses Acute respiratory failure with hypoxia J96.01 Chronic heart failure with preserved ejection fraction I50.32 Heart failure chronicity: chronic Frequent PVCs I49.3 COVID-19 U07.1 ESRD on dialysis N18.6; Z99.2 Anemia of chronic disease D63.8 Cellulitis of right lower extremity L03.115 Hx of left BKA Z89.512 CAD, multiple vessel I25.10
== END 2023-11-10 15:36 | disposition home health service (06) | DRG 291 ==
LOC: ED 00:55 → SUATTDRO 04:34 → EDINP 04:34 → 2N 06:24

== ENCOUNTER 2023-11-16 15:09 | Inpatient (IN) ==
[2023-11-16] MEDS: DEXTROSE 50% 50 ML SYRINGE IV STA ×3 (15:26→18:26)
--- NOTE | 2023-11-16 15:32 | Emergency Department Note ---
Impression & Plan AMS (altered mental status), Hypoglycemia, Anemia, Hypokalemia ED Provider Note NAME: PATRICK HAAS AGE: 73 SEX: M : 1950 ARRIVES VIA: Walk-In INFORMANT: Patient ED PROVIDER(S): Wilfred Silva DO CHIEF COMPLAINT: AMS HPI: Patient is a 73-year-old male with a past medical history of a left BKA, CAD, end-stage renal disease on dialysis Wednesday, , Wednesday he just received dialysis today. He notes that he was feeling fine this morning and after dialysis he felt terrible. His blood sugars have been low after this. He notes prior to this they have been high and low. He denies any headache or change in vision. No chest pain or shortness of breath. He admits to pain on his coccyx. Denies any nausea or vomiting. At dialysis they are giving him chocolate as the sugars were in the 50s and are so trouble staying awake. ADDITIONAL HISTORY OBTAINED: Per HPI Chronic Medical/Social Conditions Affecting Care: Per HPI PAST MEDICAL HISTORY:See Below PAST SURGICAL HISTORY:See Below FAMILY HISTORY:See Below SOCIAL HISTORY:See Below HOME MEDICATIONS:See Below ALLERGIES:See Below VITALS:See Below PHYSICAL EXAMINATION: GENERAL: Sitting up in bed, alert, ill-appearing, slightly diaphoretic EYE EXAM: normal conjunctiva. PERRL and EOM's grossly intact. OROPHARYNX: no exudate, no erythema, lips, buccal mucosa, and tongue normal and mucous membranes are moist NECK: supple, no nuchal rigidity, no adenopathy, non-tender LUNGS: Clear to auscultation. Normal chest wall mechanics HEART: no murmurs, S1 normal and S2 normal ABDOMEN: abdomen soft, non-tender, normo-active bowel sounds, no masses, no rebound or guarding. BACK: Back is symmetrical on inspection and there is no deformity, no midline tenderness, no CVA tenderness. SKIN: Erythema overlying his coccyx with a small skin tear. No induration UPPER EXTREMITIES: upper extremities are grossly normal. LOWER EXTREMITIES: No pitting edema. NEURO EXAM: Normal sensorium, cranial nerves II-XII grossly intact, normal speech, no gross weakness of arms, no gross weakness of legs. No drift. Finger to nose intact. Gross sensation intact. MEDICAL DECISION MAKING: Patient is a 73-year-old male who presents ER for above-stated complaint. IV was established blood work is obtained. Labs show no significant leukocytosis. Mild anemia 10.3. Thrombocytopenia at 122. VBG with a pH of 7.35 and a CO2 of 51. BMP with mild hypokalemia at 3.4. Creatinine was up at 2.8 but as expected as he is on dialysis. Glucose was initially significantly low at 42 upon arrival. He was given an amp of D50 glucose and this was repeated again. He was then given an half amp of D50. He was not placed on a drip due to the free water and patient being on dialysis. He was given IV antibiotics which include Rocephin. CT and pelvis was unremarkable. He was updated bedside discussed with the hospitalist admitted for further workup. Consults/Care Managements Discussions: Per MDM Triage Nursing notes reviewed. Limited review of prior medical records performed Vital Signs: reviewed and remarkable for no significant abnormalities Differential diagnosis: Differential diagnoses includes but is not limited to toxic, metabolic, infectious, traumatic, cardiac, neurologic, hematologic, psychiatric and inflammatory etiologies. ER treatment provided: See below Diagnostics interpreted by me include EKG and cardiac monitoring as listed below: -Cardiac Monitoring: An order was placed for continuous cardiac monitoring. The monitor shows a rate of 60 with sinus rhythm. -ECG: Sinus rhythm rate of 49 Multiple PVCs QTc 505 -Laboratory studies:Interpreted by me as stated above in MDM and shown below. Imaging studies: Xrays: As interpreted by me: Portable AP upright 1 view the chest shows bilateral pulmonary opacities with a port in the right chest CTs show: CT abdomen pelvis as described above Procedures:none Critical Care: I have personally spent 32 minutes of critical care time in the direct management of this patient. This includes bedside care, interpretation of diagnostic studies, and testing, discussion with consultants, patient, and family members, and other required patient management activities. This 32 minutes is in excess of all separately billable procedures. Past Med/Surg History Problem List (Updated 11/16/23 @ 21:21 by Wilfred Silva DO) Hypokalemia (Acute) Anemia (Acute) Hypoglycemia (Acute) AMS (altered mental status) (Acute) Sacral ulcer Hypoglycemia associated with diabetes Frequent PVCs Wound of lower extremity (Acute) Hx of left BKA CAD, multiple vessel s/p CABG x4 (2011) ESRD on dialysis COVID-19 (Acute) Ventricular bigeminy (HFpEF) heart failure with preserved ejection fraction ESRD (end stage renal disease) Hyperkalemia (Acute) Anemia of chronic disease SOB (shortness of breath) (Acute) Cellulitis (Acute) Hypoxia (Acute) Right leg swelling Diabetes, type I Constipation Hypokalemia Generalized weakness Cellulitis of right lower extremity Nausea Abrasion of multiple sites of right lower extremity Hypoxia (Acute) Chronic seborrheic dermatitis Status post below knee amputation of left lower extremity Generalized pruritus Grief History of colon polyps Impotence, organic Vitamin D deficiency Tubular adenoma of colon History of CVA (cerebrovascular accident) PT DENIES Glaucoma Peripheral positional vertigo Keloid scar of skin (Acute) Lower extremity edema (Chronic) Insomnia Nephrotic syndrome Diverticulosis hx Dyslipidemia Mild obstructive sleep apnea "Mild" > no device 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 DDD (degenerative disc disease), lumbar Medical History Chronic combined systolic and diastolic heart failure Depression Chronic kidney disease, stage 4 (severe) Diabetic peripheral 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 Restless leg syndrome Type 2 diabetes mellitus Ventricular bigeminy 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, with long-term current use of insulin (HFpEF) heart failure with preserved ejection fraction Pressure ulcer of BKA stump, stage 3 RESOLVED Influenza A virus subtype H1 2009 pandemic strain present Slow to wake up after anesthesia Wound of lower extremity RLE wound "improved" per 01/27/21 wound clinic visit ([facility]); surgeon aware of patient's wound hx per 01/2021 office visit note; "only has a little scab there now, keeps it covered to protect it." GERD (gastroesophageal reflux disease) History of TIA (transient ischemic attack) ~2009>over his left eye, no residual symptoms Surgical History S/P arteriovenous (AV) fistula creation left>no currently having dialysis History of esophagogastroduodenoscopy (EGD) History of colonoscopy S/P lumbar laminectomy S/P foot surgery S/P eye surgery B/L x3 (for glaucoma) S/P CABG x 4 (2011) CABG x4 (2011), [facility]; f/u PCP History of lumbar discectomy History of tonsillectomy Family History Father , age 78 with prostate cancer Colorectal cancer Cardiovascular disease Diabetes Prostate cancer Grandmother (Maternal) Diabetes Mother , age 54 of throat cancer Throat cancer Denies family history of Ovarian cancer Myocardial infarction Breast cancer Social History Smoking Status: Never smoker Second Hand Exposure: No; Do You Dip or Chew Tobacco: No; Hx Alcohol Use: No Hx Substance Use: No Preferred Language: Welsh Communication Ability: Effective Visual Impairment: No Limitations Hearing Ability: Normal Credit Card Interviewer Required: No Beliefs That Will Affect Care: None marital status: / marital status details: lost August 2021 Current Living Situation: Alone current occupational status: retired current occupation: How many Children do You have: 2 other: Retired age 63-1/2. Feels Safe at Home: Yes Childhood Exposure to Second-Hand Smoke: No Diet: regular caffeine: No during the past year weight has: remained stable Dental Care, Regularly: Yes Physical Activity Frequency: Other Physical Activity Frequency Comment: limited d/t disability Seatbelt Use: always Sunscreen Use: Yes Assistive Devices: Glasses, Prosthesis, Walker and Wheelchair Allergies Allergies Allergy/AdvReac Type Severity Reaction Status Date / Time ofloxacin [From Floxin] Allergy Intermediate itching Verified 11/16/23 17:10 Quinolones Allergy Intermediate Itchiness Verified 11/16/23 17:10 sulfamethoxazole Allergy Intermediate Rash Verified 11/16/23 17:10 trimethoprim Allergy Intermediate Rash Verified 11/16/23 17:10 Home Meds Home Medications Medication Instructions Recorded Confirmed latanoprost 0.005 % eye drops 1 drp OPB HS 12/27/17 11/16/23 (Xalatan) brimonidine 0.2 % eye drops 1 drp OPB BID 12/07/20 11/16/23 dorzolamide 2 % eye drops 1 drp OPB BID 12/07/20 11/16/23 timolol maleate 0.5 % eye gel 1 drp OPB BID 12/07/20 11/16/23 forming solution docusate sodium 100 mg capsule 100 mg PO BID PRN Constipation 11/11/23 11/16/23 polyethylene glycol 3350 17 gram 17 g PO BID PRN Constipation 11/11/23 11/16/23 oral powder packet (Miralax) Previous Rx's Medication Instructions Recorded calcitriol 0.5 mcg capsule 1 mcg (2 x 0.5 mcg) PO QAM #60 caps 09/17/23 ascorbic acid (vitamin C) 500 mg 500 mg PO QAM #90 caps 11/06/23 capsule cholecalciferol (vitamin D3) 50 2,000 unit PO QAM #90 caps 11/06/23 mcg (2,000 unit) capsule (Vitamin D3) cyanocobalamin (vitamin B-12) 500 1,000 mcg (2 x 500 mcg) PO QAM 11/06/23 mcg tablet #180 tabs trazodone 100 mg tablet 100 mg PO HS #90 tabs 11/06/23 isosorbide mononitrate 30 mg 30 mg PO QAM 90 days #90 tabs 11/08/23 tablet,extended release 24 hr aspirin 81 mg tablet,delayed 81 mg PO QAM #90 tabs 11/09/23 release atorvastatin 80 mg tablet (Lipitor) 80 mg PO DAILY #90 tabs 11/09/23 bumetanide 1 mg tablet 1 mg PO BID #180 tabs 11/09/23 hydralazine 25 mg tablet 75 mg (3 x 25 mg) PO TID 90 days 11/09/23 #810 tabs insulin regular human 100 unit/mL 1 sliding scale dose subcut 11/09/23 injection solution (Humulin R USEASDIRECTD #10 mL Regular U-100 Insulin) ondansetron 4 mg disintegrating 4 mg PO Q8H PRN nausea and 11/09/23 tablet vomiting #90 tabs ropinirole 1 mg tablet See Rx Instructions .Route 11/09/23 .COMPLEX #450 tabs sertraline 50 mg tablet 50 mg PO DAILY #90 tabs 11/09/23 insulin NPH isoph U-100 human 100 10 unit (0.1 mL) subcut BIDM #10 mL 11/10/23 unit/mL subcutaneous suspension (Humulin N NPH U-100 Insulin (isophane susp)) metoprolol succinate 25 mg 25 mg PO BID #60 tabs 11/10/23 tablet,extended release 24 hr pantoprazole 40 mg tablet,delayed 40 mg PO QAM #30 tabs 11/10/23 release tramadol 50 mg tablet 50 mg PO DAILY PRN pain #30 tabs 11/10/23 zolpidem 5 mg tablet 5 mg PO HS PRN insomnia #10 tabs 11/10/23 Results & Data (ED) Vital Signs Vital Signs - 24 hr 11/16/23 15:11 11/16/23 15:36 11/16/23 15:43 Temperature 36.9 C Temperature Source Temporal Artery Scan Pulse Rate 52 L 50 L 53 L Pulse Rate [Apical] Respiratory Rate 18 3 L Respiratory Effort / Characteristics Non-Labored Spontaneous Respiratory Depth Normal Blood Pressure 116/50 L 114/52 L Blood Pressure [Right Arm] Blood Pressure Mean 72 72 Blood Pressure Mean [Right Arm] Blood Pressure Position Sitting Pulse Oximetry 93 Oxygen Delivery Method Room Air Sepsis Recent Fever Within 48 Hours No Sepsis New/Unexplained Change in Mental Status N/A Sepsis Action Taken by Nursing No Action Required 11/16/23 18:30 11/16/23 19:32 Temperature Temperature Source Pulse Rate 53 L Pulse Rate [Apical] 57 L Respiratory Rate 18 Respiratory Effort / Characteristics Respiratory Depth Blood Pressure Blood Pressure [Right Arm] 157/89 H Blood Pressure Mean Blood Pressure Mean [Right Arm] 111 Blood Pressure Position Pulse Oximetry 96 Oxygen Delivery Method Room Air Sepsis Recent Fever Within 48 Hours Sepsis New/Unexplained Change in Mental Status Sepsis Action Taken by Nursing Laboratory Data 11/16/23 15:21 11/16/23 15:21 Lab Results 11/16/23 11/16/23 11/16/23 Range/Units 15:21 15:37 16:01 WBC 7.66 (4.8-10.8) K/ul RBC 3.33 L (4.70-6.10) M/uL Hgb 10.3 L (14.0-18.0) g/dl POC Hgb 10.5 L (14.0-18.0) g/dl Hct 30.9 L (42.0-52.0) % POC Hct 31 L (42-52) % MCV 92.8 (80.0-100.0) fL MCH 30.9 (25.0-34.0) pg MCHC 33.3 (32.0-36.0) g/dL RDW Std Deviation 54.4 H (36.4-46.3) fL RDW Coeff of Jose 16.0 H (11.5-14.5) % Plt Count 122 L (130-400) K/uL MPV 12.9 H (9.4-12.4) fL Immature Gran % (Auto) 1.2 % Neut % (Auto) 73.2 % Lymph % (Auto) 8.0 % Long % (Auto) 13.8 % Eos % (Auto) 3.3 % Baso % (Auto) 0.5 % Neut # (Auto) 5.61 (1.40-6.50) K/uL Lymph # (Auto) 0.61 L (1.20-3.40) K/uL Long # (Auto) 1.06 H (0.11-0.59) K/uL Eos # (Auto) 0.25 (0.00-0.50) K/uL Baso # (Auto) 0.04 (0.00-0.20) K/uL Immature Gran # (Auto) 0.09 (0.01-0.20) K/uL VBG pH (7.36-7.41) VBG pCO2 (38-50) mmHg VBG pO2 mmHg VBG HCO3 mmol/L VBG O2 Saturation % VBG Base Excess mEq/L POC Sodium 137 (135-144) mmol/L Sodium 139 (136-145) mmol/L POC Potassium 3.8 (3.3-5.0) mmol/L Potassium 3.4 L (3.5-5.1) mmol/L POC Chloride 101 (101-112) mmol/L Chloride 103 (98-107) mmol/L Carbon Dioxide 28 (21-32) mmol/L POC Total CO2 25 (24-31) mmol/L Anion Gap 8 (3-11) POC Anion Gap 16.0 (16-25) mmol/L POC BUN 31 H (7-18) mg/dl BUN 30 H (6-23) mg/dl Creatinine 2.89 H (0.6-1.4) mg/dl POC Creatinine 3.2 H (0.6-1.3) mg/dl Est Cr Clr Drug Dosing Not Reportable Est GFR ( Amer) 23.5 ml/min Est GFR (Non-Af Amer) 20.3 ml/min BUN/Creatinine Ratio 10.4 (10-20) Glucose 42 L* (70-99(Fasting)) mg/dl POC Glucose 112 H (70-99) mg/dl POC Glucose (other) 186 H (70-99) mg/dl Lactate (0.4-2.0) mmol/L Calcium 9.4 (8.6-10.3) mg/dl POC Ioniz Calcium Luzma 1.13 (1.12-1.32) mmol/l Total Bilirubin 0.8 (0.2-1.0) mg/dl AST 19 (13-39) U/L ALT 29 (7-52) U/L Alkaline Phosphatase 105 H (34-104) U/L Total Protein 6.7 (6.0-8.3) gm/dl Albumin 3.9 (3.4-5.0) gm/dl Globulin 2.8 (2.5-4.0) gm/dl Albumin/Globulin Ratio 1.4 (0.9-2) Procalcitonin 0.28 (0-0.5) ng/ml 11/16/23 11/16/23 11/16/23 Range/Units 16:04 16:34 17:09 WBC (4.8-10.8) K/ul RBC (4.70-6.10) M/uL Hgb (14.0-18.0) g/dl POC Hgb (14.0-18.0) g/dl Hct (42.0-52.0) % POC Hct (42-52) % MCV (80.0-100.0) fL MCH (25.0-34.0) pg MCHC (32.0-36.0) g/dL RDW Std Deviation (36.4-46.3) fL RDW Coeff of Jose (11.5-14.5) % Plt Count (130-400) K/uL MPV (9.4-12.4) fL Immature Gran % (Auto) % Neut % (Auto) % Lymph % (Auto) % Long % (Auto) % Eos % (Auto) % Baso % (Auto) % Neut # (Auto) (1.40-6.50) K/uL Lymph # (Auto) (1.20-3.40) K/uL Long # (Auto) (0.11-0.59) K/uL Eos # (Auto) (0.00-0.50) K/uL Baso # (Auto) (0.00-0.20) K/uL Immature Gran # (Auto) (0.01-0.20) K/uL VBG pH 7.35 L (7.36-7.41) VBG pCO2 51 H (38-50) mmHg VBG pO2 39 mmHg VBG HCO3 28 mmol/L VBG O2 Saturation 70.2 % VBG Base Excess 1.7 mEq/L POC Sodium (135-144) mmol/L Sodium (136-145) mmol/L POC Potassium (3.3-5.0) mmol/L Potassium (3.5-5.1) mmol/L POC Chloride (101-112) mmol/L Chloride (98-107) mmol/L Carbon Dioxide (21-32) mmol/L POC Total CO2 (24-31) mmol/L Anion Gap (3-11) POC Anion Gap (16-25) mmol/L POC BUN (7-18) mg/dl BUN (6-23) mg/dl Creatinine (0.6-1.4) mg/dl POC Creatinine (0.6-1.3) mg/dl Est Cr Clr Drug Dosing Est GFR ( Amer) ml/min Est GFR (Non-Af Amer) ml/min BUN/Creatinine Ratio (10-20) Glucose (70-99(Fasting)) mg/dl POC Glucose 147 H 116 H (70-99) mg/dl POC Glucose (other) (70-99) mg/dl Lactate 1.4 (0.4-2.0) mmol/L Calcium (8.6-10.3) mg/dl POC Ioniz Calcium Luzma (1.12-1.32) mmol/l Total Bilirubin (0.2-1.0) mg/dl AST (13-39) U/L ALT (7-52) U/L Alkaline Phosphatase (34-104) U/L Total Protein (6.0-8.3) gm/dl Albumin (3.4-5.0) gm/dl Globulin (2.5-4.0) gm/dl Albumin/Globulin Ratio (0.9-2) Procalcitonin (0-0.5) ng/ml 08/06/24 08/06/24 08/06/24 Range/Units 18:02 18:48 19:26 WBC (4.8-10.8) K/ul RBC (4.70-6.10) M/uL Hgb (14.0-18.0) g/dl POC Hgb (14.0-18.0) g/dl Hct (42.0-52.0) % POC Hct (42-52) % MCV (80.0-100.0) fL MCH (25.0-34.0) pg MCHC (32.0-36.0) g/dL RDW Std Deviation (36.4-46.3) fL RDW Coeff of Jose (11.5-14.5) % Plt Count (130-400) K/uL MPV (9.4-12.4) fL Immature Gran % (Auto) % Neut % (Auto) % Lymph % (Auto) % Long % (Auto) % Eos % (Auto) % Baso % (Auto) % Neut # (Auto) (1.40-6.50) K/uL Lymph # (Auto) (1.20-3.40) K/uL Long # (Auto) (0.11-0.59) K/uL Eos # (Auto) (0.00-0.50) K/uL Baso # (Auto) (0.00-0.20) K/uL Immature Gran # (Auto) (0.01-0.20) K/uL VBG pH (7.36-7.41) VBG pCO2 (38-50) mmHg VBG pO2 mmHg VBG HCO3 mmol/L VBG O2 Saturation % VBG Base Excess mEq/L POC Sodium (135-144) mmol/L Sodium (136-145) mmol/L POC Potassium (3.3-5.0) mmol/L Potassium (3.5-5.1) mmol/L POC Chloride (101-112) mmol/L Chloride (98-107) mmol/L Carbon Dioxide (21-32) mmol/L POC Total CO2 (24-31) mmol/L Anion Gap (3-11) POC Anion Gap (16-25) mmol/L POC BUN (7-18) mg/dl BUN (6-23) mg/dl Creatinine (0.6-1.4) mg/dl POC Creatinine (0.6-1.3) mg/dl Est Cr Clr Drug Dosing Est GFR ( Amer) ml/min Est GFR (Non-Af Amer) ml/min BUN/Creatinine Ratio (10-20) Glucose (70-99(Fasting)) mg/dl POC Glucose 82 289 H 85 (70-99) mg/dl POC Glucose (other) (70-99) mg/dl Lactate (0.4-2.0) mmol/L Calcium (8.6-10.3) mg/dl POC Ioniz Calcium Luzma (1.12-1.32) mmol/l Total Bilirubin (0.2-1.0) mg/dl AST (13-39) U/L ALT (7-52) U/L Alkaline Phosphatase (34-104) U/L Total Protein (6.0-8.3) gm/dl Albumin (3.4-5.0) gm/dl Globulin (2.5-4.0) gm/dl Albumin/Globulin Ratio (0.9-2) Procalcitonin (0-0.5) ng/ml Administered Medications Discontinued Medications Dextrose (Dextrose 50% 50 Ml Syringe) 50 ml IV NOW STA Stop: 11/16/23 15:15 Last Admin: 11/16/23 15:26 Dose: 50 ml Documented By: FAINA Dextrose (Dextrose 50% 50 Ml Syringe) 50 ml IV NOW STA Stop: 11/16/23 15:58 Last Admin: 11/16/23 16:17 Dose: 50 ml Documented By: VASILIY Dextrose (Dextrose 50% 50 Ml Syringe) 25 ml IV NOW STA Stop: 11/16/23 18:19 Last Admin: 11/16/23 18:26 Dose: 25 ml Documented By: VASILIY Dextrose (Dextrose 50% 50 Ml Syringe) 25 ml IV NOW ONE Stop: 11/16/23 19:41 Last Admin: 11/16/23 19:44 Dose: 25 ml Documented By: KIMBERLY Ceftriaxone Sodium (Rocephin) 2,000 mg in 50 mls @ 100 mls/hr IV NOW STA Stop: 11/16/23 16:59 Last Infusion: 11/16/23 18:54 Dose: Infused Documented By: Admin: 11/16/23 18:26 Dose: 100 mls/hr Documented By: VASILIY Vancomycin HCl 2,000 mg/ (Sodium Chloride) 540 mls @ 200 mls/hr IV NOW ONE Stop: 11/16/23 21:00 Last Admin: 11/16/23 19:31 Dose: 200 mls/hr Documented By: KIMBERLY Ioversol (Optiray 320 100ml) 92 ml IV ONCE ONE Stop: 11/16/23 17:53 Last Admin: 11/16/23 17:52 Dose: 92 ml Documented By: PLW Imaging Data Radiologist's Impression: Chest X-Ray 11/16/23 16:28 XR chest 1V portable CLINICAL HISTORY: Altered mental status. COMPARISON STUDY: Chest radiograph November 08, 2023. FINDINGS: Dual lumen right internal jugular venous catheter is unchanged in position. There are median sternotomy wires. Moderate cardiomegaly is again noted. Pulmonary edema has moderately improved since chest radiograph of November 08, 2023. A small left pleural effusion with left basilar opacity is present. There is no pneumothorax. IMPRESSION: 1. Interval improvement in pulmonary edema since chest radiograph of November 08, 2023. 2. Small left pleural effusion with left basilar opacity that favors atelectasis. ACT 112: Negative or not required by law. Electronically signed by: Camilo Block M.D. 11/16/2023 4:45 PM Abdomen/Pelvis CT 11/16/23 16:30 CT abd pelvis IV con only CLINICAL HISTORY: vomiting ? ams sacral pain TECHNIQUE: Helical axial images of the abdomen and pelvis were obtained and displayed. Automated dose lowering techniques and/or adjustment according to patient size were utilized for this exam. This exam was performed with intravenous contrast. CT DOSE: 1420.33 mGy.cm COMPARISON: Comparison is made to CT abdomen pelvis 12/21/2022 FINDINGS: Lower chest: Small bilateral pleural effusions are seen. Liver: Unremarkable. No focal lesions are seen. Gallbladder and biliary tree: No calcified gallstones. Normal caliber wall. No intra- or extrahepatic biliary ductal dilation. Pancreas: Unremarkable, no focal lesions. Spleen: Unremarkable. Adrenals: Unremarkable. Kidneys and ureters: Perinephric stranding is noted bilaterally. Bladder: Diffuse homogeneous wall thickening is seen. Reproductive organs: Unremarkable. Bowel: Diverticulosis is seen without diverticulitis. The appendix is normal. Lymph nodes Retroperitoneal: Unremarkable. Pelvic: Unremarkable. Mesenteric: Unremarkable. Peritoneum: Trace free fluid in the pelvis is likely physiologic. Vessels: Atherosclerotic calcifications are seen. Abdominal wall: Trace fat stranding is seen. Bones: Posterior fixation hardware is seen in the lumbar spine. Degenerative changes are seen. IMPRESSION: No acute abnormalities. Trace peritoneal fluid and body wall edema is seen which may represent fluid overload. ACT 112: Negative or not required by law. Electronically signed by: Lai Marion M.D. 11/16/2023 6:13 PM Discharge Plan Visit Data Chief Complaint: Hypoglycemia Stated Complaint: HYPOGLYCEMIA ED Provider: Wilfred Silva Discharge Problem: AMS (altered mental status), Hypoglycemia, Anemia, Hypokalemia Patient Disposition: Admitted As Inpatient Discharge Instructions Interventions: ED Discharge Assessment Last Done: 11/16/23 20:37 Discharge Problem: AMS (altered mental status) Qualifiers: Altered mental status type: unspecified Qualified Code(s): R41.82 - Altered mental status, unspecified Anemia Qualifiers: Anemia type: unspecified type Qualified Code(s): D64.9 - Anemia, unspecified
[2023-11-16 15:40] LABS: Basophils # (auto) 0.04 K/uL (0.00-0.20); Basophils % (auto) 0.5 %; Eosinophils # (auto) 0.25 K/uL (0.00-0.50); Eosinophils % (auto) 3.3 %; Hematocrit (blood only) 30.9 % (42.0-52.0); Hemoglobin 10.3 g/dl (14.0-18.0); Immature Granulocytes # (auto) 0.09 K/uL (0.01-0.20); Immature Granulocytes % (auto) 1.2 %; Lymphocytes # (auto) 0.61 K/uL (1.20-3.40); Mean Corpuscular Hemoglobin 30.9 pg (25.0-34.0); Mean Corpuscular Hgb Conc 33.3 g/dL (32.0-36.0); Mean Corpuscular Volume 92.8 fL (80.0-100.0); Mean Platelet Volume 12.9 fL (9.4-12.4); Monocytes # (auto) 1.06 K/uL (0.11-0.59); Monocytes % (auto) 13.8 %; Neutrophils # (auto) 5.61 K/uL (1.40-6.50); Neutrophils % (auto) 73.2 %; Platelet Count 122 K/uL (130-400); RDW Standard Deviation 54.4 fL (36.4-46.3); Red Blood Count 3.33 M/uL (4.70-6.10); White Blood Count 7.66 K/ul (4.8-10.8)
[2023-11-16 15:50] LABS: iSTAT Creatinine 3.2 mg/dl (0.6-1.3); iSTAT Hemoglobin 10.5 g/dl (14.0-18.0); iSTAT Ionized Calcium 1.13 mmol/l (1.12-1.32); iSTAT Potassium 3.8 mmol/L (3.3-5.0)
[2023-11-16 15:58] LABS: Alanine Aminotransferase 29 U/L (7-52); Albumin Globulin Ratio 1.4 (0.9-2); Albumin Level 3.9 gm/dl (3.4-5.0); Alkaline Phosphatase 105 U/L (34-104); Anion Gap 8 (3-11); Aspartate Aminotransferase 19 U/L (13-39); BUN Creatinine Ratio 10.4 (10-20); Bilirubin,Total 0.8 mg/dl (0.2-1.0); Blood Urea Nitrogen 30 mg/dl (6-23); Calcium 9.4 mg/dl (8.6-10.3); Carbon Dioxide 28 mmol/L (21-32); Chloride 103 mmol/L (98-107); Est GFR (African American) 23.5 ml/min; Est GFR (Non-African American) 20.3 ml/min; Globulin 2.8 gm/dl (2.5-4.0); Glucose 42 mg/dl (70-99(Fasting)); Potassium 3.4 mmol/L (3.5-5.1); Sodium 139 mmol/L (136-145); Total Protein 6.7 gm/dl (6.0-8.3)
[2023-11-16 16:17] LABS: Base Excess VBG 1.7 mEq/L; HCO3 VBG 28 mmol/L; Oxygen Saturation VBG 70.2 %; PCO2 VBG 51 mmHg (38-50); PO2 VBG 39 mmHg; pH VBG 7.35 (7.36-7.41)
--- NOTE | 2023-11-16 16:46 | XRay Report ---
XR chest 1V portable CLINICAL HISTORY: Altered mental status. COMPARISON STUDY: Chest radiograph November 08, 2023. FINDINGS: Dual lumen right internal jugular venous catheter is unchanged in position. There are media n sternotomy wires. Moderate cardiomegaly is again noted. Pulmonary edema has moderately improved sin ce chest radiograph of November 08, 2023. A small left pleural effusion with left basilar opacity is pres ent. There is no pneumothorax. IMPRESSION: 1. Interval improvement in pulmonary edema since chest radiograph of November 08, 2023. 2. Small left pleural effusion with left basilar opacity that favors atelectasis. ACT 112: Negative or not required by law. Electronically signed by: Camilo Block M.D. 11/16/2023 4:45 PM
[2023-11-16] MEDS: OPTIRAY 320 100ml IV ONE (17:52)
--- NOTE | 2023-11-16 18:15 | CT Scan Report ---
CT abd pelvis IV con only CLINICAL HISTORY: vomiting ? ams sacral pain TECHNIQUE: Helical axial images of the abdomen and pelvis were obtained and displayed. Automated dose lowering techniques and/or adjustment according to patient size were utilized for this exam. This e xam was performed with intravenous contrast. CT DOSE: 1420.33 mGy.cm COMPARISON: Comparison is made to CT abdomen pelvis 12/21/2022 FINDINGS: Lower chest: Small bilateral pleural effusions are seen. Liver: Unremarkable. No focal lesions are seen. Gallbladder and biliary tree: No calcified gallstones. Normal caliber wall. No intra- or extrahepatic biliary ductal dilation. Pancreas: Unremarkable, no focal lesions. Spleen: Unremarkable. Adrenals: Unremarkable. Kidneys and ureters: Perinephric stranding is noted bilaterally. Bladder: Diffuse homogeneous wall thickening is seen. Reproductive organs: Unremarkable. Bowel: Diverticulosis is seen without diverticulitis. The appendix is normal. Lymph nodes Retroperitoneal: Unremarkable. Pelvic: Unremarkable. Mesenteric: Unremarkable. Peritoneum: Trace free fluid in the pelvis is likely physiologic. Vessels: Atherosclerotic calcifications are seen. Abdominal wall: Trace fat stranding is seen. Bones: Posterior fixation hardware is seen in the lumbar spine. Degenerative changes are seen. IMPRESSION: No acute abnormalities. Trace peritoneal fluid and body wall edema is seen which may represent fluid overload. ACT 112: Negative or not required by law. Electronically signed by: Lai Marion M.D. 11/16/2023 6:13 PM
[2023-11-16] MEDS: cefTRIAXone SODIUM 2,000 MG/50 ML BAG IV STA (18:26)
[2023-11-16] MEDS ORDERED: VANCOMYCIN CONSULT ACTIVE PRN (18:31)
[2023-11-16] MEDS: VANCOMYCIN HCL 2,000 MG in SODIUM CHLORIDE 0.9% 500 ML IV ONE (19:31)
[2023-11-16] MEDS: DEXTROSE 50% 50 ML SYRINGE IV ONE (19:44)
--- NOTE | 2023-11-16 19:50 | History & Physical Report ---
Date of Service November 16, 2023 Assessment & Plan (1) Hypoglycemia associated with diabetes: (2) Sacral ulcer: (3) Wound of lower extremity: (4) ESRD on dialysis: Plan 1. Hypoglycemia Pt presented to ED with BSG of 42. He required D5 x 2 prior to admission to raise his blood glucose. May be due to underlying infection or adapting to newly started dialysis. Pt is currently afebrile, WBC is within normal range, lactate and procalcitonin were also in normal range. Chest x-ray and CT abdomen/pelvis did not show evidence of infectious sources. Blood cultures and wound obtained. -Ordered BGS checks q2h. Provider to be alerted if <80 or >180 -Ordered clear liquid diet. Consider progression if pt less tender at right abdomen -Ordered UA -Await blood cultures and would culture -Resume novolog when BSG regulate -Monitor CBC with diff for elevation and signs of infection 2. Sacral Ulcer Pt c/o central buttock pain. Found to have shallow ulcer at coccyx area. Wound culture taken. - Continue IV Vancomycin 2g BID - Started IV cefepime 1 g daily-renally dosed for hemodialysis-administer after dialysis on dialysis days to cover pseudomonas - Ordered low airloss mattress for pressure relief - Ordered PT/OT evaluations - Wound nurse consult 3. Lower extremity wounds Multiple wounds at right lower leg with bandages. Most were shallow, but weeping. - Await wound culture-wound care nurse consult - Change dressings at right LE as needed 4. ESRD on dialysis Pt underwent full session of dialysis today. Will be due for next session on 11/18/23. - Nephrology consult - Monitor CMP for electrolytes Chronic CAD -Continue atorvastatin 80 mg qd, metoprolol 25mg qd, asa 81 mg qd Depression -Continue sertraline 50mg qd Chronic pain -Continue tramadol 50mg qd PRN Insomnia -Continue trazodone 100mg qhs and zolpidem 5mg PRN GERD -Continue pantoprazole 40mg qd Glaucome Continue dorzolamide BID, latanoprost hs, timolol BID Full code Clear liquids PT/OT evals SCD's and home med of 81 mg ASA History of Present Illness Chief Complaint: Feeling ill Primary Care Provider: Leah Wolf DO Pt is a 73 yo male with PMedHx DM1, CVA, ESRD on dialysis, PVCs, hx of CABGx4, and left BKA who presented to ED feeling tired and unwell after dialysis on 11/16/23. Pt reports he did not eat breakfast prior to dialysis treatment at 800am. Upon arrival to ED his BSG was 42. Pt denies fever, chills, nausea, vomiting, abdominal pain, cough, congestion, chest pain, or SOB. He reports pain at his buttocks. Pt recently started HD approximately 2 months ago. Allergies Allergy/AdvReac Type Severity Reaction Status Date / Time ofloxacin [From Floxin] Allergy Intermediate itching Verified 11/16/23 17:10 Quinolones Allergy Intermediate Itchiness Verified 11/16/23 17:10 sulfamethoxazole Allergy Intermediate Rash Verified 11/16/23 17:10 trimethoprim Allergy Intermediate Rash Verified 11/16/23 17:10 Home Medications Medication Instructions Recorded Confirmed Type latanoprost 0.005 % eye drops 1 drp OPB HS 12/27/17 11/16/23 History (Xalatan) brimonidine 0.2 % eye drops 1 drp OPB BID 12/07/20 11/16/23 History dorzolamide 2 % eye drops 1 drp OPB BID 12/07/20 11/16/23 History timolol maleate 0.5 % eye gel 1 drp OPB BID 12/07/20 11/16/23 History forming solution calcitriol 0.5 mcg capsule 1 mcg (2 x 0.5 mcg) PO QAM #60 caps 09/17/23 11/16/23 Rx ascorbic acid (vitamin C) 500 mg 500 mg PO QAM #90 caps 11/06/23 11/16/23 Rx capsule cholecalciferol (vitamin D3) 50 2,000 unit PO QAM #90 caps 11/06/23 11/16/23 Rx mcg (2,000 unit) capsule (Vitamin D3) cyanocobalamin (vitamin B-12) 500 1,000 mcg (2 x 500 mcg) PO QAM 11/06/23 11/16/23 Rx mcg tablet #180 tabs trazodone 100 mg tablet 100 mg PO HS #90 tabs 11/06/23 11/16/23 Rx isosorbide mononitrate 30 mg 30 mg PO QAM 90 days #90 tabs 11/08/23 11/16/23 Rx tablet,extended release 24 hr aspirin 81 mg tablet,delayed 81 mg PO QAM #90 tabs 11/09/23 11/16/23 Rx release atorvastatin 80 mg tablet (Lipitor) 80 mg PO DAILY #90 tabs 11/09/23 11/16/23 Rx bumetanide 1 mg tablet 1 mg PO BID #180 tabs 11/09/23 11/16/23 Rx hydralazine 25 mg tablet 75 mg (3 x 25 mg) PO TID 90 days 11/09/23 11/16/23 Rx #810 tabs insulin regular human 100 unit/mL 1 sliding scale dose subcut 11/09/23 11/16/23 Rx injection solution (Humulin R USEASDIRECTD #10 mL Regular U-100 Insulin) ondansetron 4 mg disintegrating 4 mg PO Q8H PRN nausea and 11/09/23 11/16/23 Rx tablet vomiting #90 tabs ropinirole 1 mg tablet See Rx Instructions .Route 11/09/23 11/16/23 Rx .COMPLEX #450 tabs sertraline 50 mg tablet 50 mg PO DAILY #90 tabs 11/09/23 11/16/23 Rx insulin NPH isoph U-100 human 100 10 unit (0.1 mL) subcut BIDM #10 mL 11/10/23 11/16/23 Rx unit/mL subcutaneous suspension (Humulin N NPH U-100 Insulin (isophane susp)) metoprolol succinate 25 mg 25 mg PO BID #60 tabs 11/10/23 11/16/23 Rx tablet,extended release 24 hr pantoprazole 40 mg tablet,delayed 40 mg PO QAM #30 tabs 11/10/23 11/16/23 Rx release tramadol 50 mg tablet 50 mg PO DAILY PRN pain #30 tabs 11/10/23 11/16/23 Rx zolpidem 5 mg tablet 5 mg PO HS PRN insomnia #10 tabs 11/10/23 11/16/23 Rx docusate sodium 100 mg capsule 100 mg PO BID PRN Constipation 11/11/23 11/16/23 History polyethylene glycol 3350 17 gram 17 g PO BID PRN Constipation 11/11/23 11/16/23 History oral powder packet (Miralax) Past Med/Surg History Problem List (Updated 11/16/23 @ 20:08 by Sanjuanita Harkey, DO) Sacral ulcer Hypoglycemia associated with diabetes Frequent PVCs Wound of lower extremity (Acute) Hx of left BKA CAD, multiple vessel s/p CABG x4 (2011) ESRD on dialysis COVID-19 (Acute) Ventricular bigeminy (HFpEF) heart failure with preserved ejection fraction ESRD (end stage renal disease) Hyperkalemia (Acute) Anemia of chronic disease SOB (shortness of breath) (Acute) Cellulitis (Acute) Hypoxia (Acute) Right leg swelling Diabetes, type I Constipation Hypokalemia Generalized weakness Cellulitis of right lower extremity Nausea Abrasion of multiple sites of right lower extremity Hypoxia (Acute) Chronic seborrheic dermatitis Status post below knee amputation of left lower extremity Generalized pruritus Grief History of colon polyps Impotence, organic Vitamin D deficiency Tubular adenoma of colon History of CVA (cerebrovascular accident) PT DENIES Glaucoma Peripheral positional vertigo Keloid scar of skin (Acute) Lower extremity edema (Chronic) Insomnia Nephrotic syndrome Diverticulosis hx Dyslipidemia Mild obstructive sleep apnea "Mild" > no device 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 DDD (degenerative disc disease), lumbar Medical History Chronic combined systolic and diastolic heart failure Depression Chronic kidney disease, stage 4 (severe) Diabetic peripheral 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 Restless leg syndrome Type 2 diabetes mellitus Ventricular bigeminy 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, with long-term current use of insulin (HFpEF) heart failure with preserved ejection fraction Pressure ulcer of BKA stump, stage 3 RESOLVED Influenza A virus subtype H1 2009 pandemic strain present Slow to wake up after anesthesia Wound of lower extremity RLE wound "improved" per 01/27/21 wound clinic visit ([facility]); surgeon aware of patient's wound hx per 01/2021 office visit note; "only has a little scab there now, keeps it covered to protect it." GERD (gastroesophageal reflux disease) History of TIA (transient ischemic attack) ~2009>over his left eye, no residual symptoms Surgical History S/P arteriovenous (AV) fistula creation left>no currently having dialysis History of esophagogastroduodenoscopy (EGD) History of colonoscopy S/P lumbar laminectomy S/P foot surgery S/P eye surgery B/L x3 (for glaucoma) S/P CABG x 4 (2012) CABG x4 (2012), [facility]; f/u PCP History of lumbar discectomy History of tonsillectomy Family History Father , age 78 with prostate cancer Colorectal cancer Cardiovascular disease Diabetes Prostate cancer Grandmother (Maternal) Diabetes Mother , age 54 of throat cancer Throat cancer Denies family history of Ovarian cancer Myocardial infarction Breast cancer Social History Smoking Status: Never smoker Second Hand Exposure: No; Do You Dip or Chew Tobacco: No; Hx Alcohol Use: No Hx Substance Use: No Preferred Language: Belarusian Communication Ability: Effective Visual Impairment: No Limitations 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 Feels Safe at Home: Yes Childhood Exposure to Second-Hand Smoke: No Diet: regular caffeine: No during the past year weight has: remained stable Dental Care, Regularly: Yes Physical Activity Frequency: Other Physical Activity Frequency Comment: limited d/t disability Seatbelt Use: always Sunscreen Use: Yes Assistive Devices: Glasses, Prosthesis, Walker and Wheelchair Review of Systems Review of Systems: As in HPI Physical Exam Constitutional: well developed, well nourished, + ill appearing and + lethargic Eyes: PERRL, conjunctivae normal, anicteric sclerae ENMT: external ear and nose normal, oropharynx normal Respiratory: normal respiratory effort, lungs clear to auscultation Cardiovascular: RRR, no murmur, no edema Gastrointestinal (Abdomen): Inspection/Auscultation: abdomen normal to inspection and normal bowel sounds; abdomen not distended Tender to palpation at right upper quadrant>right lower quadrant. No tenderness at left upper or lower quadrant Skin: + ulcer (Sacral/coccyx region, anterior right tibial, right anterior foot, 5th toe) Psychiatric: A+Ox3, euthymic affect Results & Data Results & Data Vital Signs (Past 12 Hours) Vital Signs Temp Pulse Pulse Resp BP BP Pulse Ox 11/16/23 19:32 53 L 11/16/23 18:30 57 L 18 157/89 H 96 11/16/23 15:43 53 L 11/16/23 15:36 50 L 3 L 114/52 L 11/16/23 15:11 36.9 C 52 L 18 116/50 L 93 O2 Del Method 11/16/23 19:32 11/16/23 18:30 Room Air 11/16/23 15:43 11/16/23 15:36 11/16/23 15:11 Room Air Code Status & VTE Plan Code Status Full code. I personally discussed with patient at bedside VTE Prophylaxis Plan VTE Prophylaxis will be ordered: Yes Supervising Physician Co-Signing Physician Notes I have personally seen, evaluated and examined the patient. I have also personally discussed the management of the patient with the resident physician/JOHN and I agree with the exam findings documented in the history and physical examination and the documented assessment and plan unless otherwise stated below. Brief Exam: In general is a 73-year-old male who is alert and oriented x 3 at the time my exam he interacts appropriately. His only complaint is pain at the sacral ulcer site. And a feeling of generalized weakness with a refractory hypoglycemia. He has no other complaints of pain. HEENT: Normocephalic atraumatic. Heart: Is regular I do not appreciate any murmur or ectopy or rub on auscultati on. Permanent dialysis catheter noted in the right chest wall. There is no surrounding discharge dressings intact clean and dry Abdomen: Obese soft nontender positive bowel sounds, I do not appreciate any organomegaly but exam is somewhat limited due to body habitus. Extremities: Prosthetic left lower extremity noted. Right lower extremity multiple ulcerations over the extensor surface and lateral rest but of the lower leg. He does have some erythema of the lower leg surrounding the 1 large ulceration which measures approximately 3 cm in circumference and is located on the distal lateral aspect of the calf/aragon region. There is no active discharge. Palpable thrill in the left upper extremity is noted. Skin exam: Accompanied by 2 female registered nurses as well as resident physici an. The patient has a ulceration at the coccyx region. Did have some purulent discharge. This was sent for culture. The circumference is approximately 1.2 cm by visual estimation. Neurologically: Cranial nerves II through XII are grossly intact no focal deficit on examination. Assessment/plan: As discussed above. IV cefepime IV vancomycin for empiric antibiotic treatment with dialysis patient with recent hospitalization with refractory hypoglycemia suspicious for underlying possible infection. Blood cultures x 2. Urine with culture. Per the patient he did test positive for COVID on November 05 here in the hospital. But he has had a home test since then and is tested negative. He is now outside his 10-day window of isolation therefore I see no need for airborne precautions patient does not have any respiratory symptoms at this time. Wound care nurse consulted for the wound described above. Patient does appear to have quite an early developing cellulitis of the right lower extremity that should be well covered with the antibiotic cocktail described above. Due to the sacral wound will have ordered a colonic mass which was described above please refer to orders for further p merly. Will also order fall precautions due to his debility and prosthetic limb.
--- NOTE | 2023-11-16 21:11 | Billing Data ---
Date of Service November 16, 2023 Coding Level of Care Code 00918 INT INP/OBS CARE
[2023-11-16] MEDS ORDERED: ONDANSETRON 4 MG OD TAB PO PRN (21:34)
[2023-11-16] MEDS ORDERED: ONDANSETRON INJ 2 MG/ML 2 ML VIAL IV PRN (21:34)
[2023-11-16] MEDS ORDERED: POLYETHYLENE (MIRALAX) 17 GM PACK PO PRN (21:34)
[2023-11-16] MEDS ORDERED: DOCUSATE SODIUM 100 MG CAP PO PRN (21:34)
[2023-11-16] MEDS: CEFEPIME 1,000 MG in SYRINGE 0 ML IV SCH (22:26)
[2023-11-16] MEDS: LATANOPROST 0.005% OP SOLN 2.5 ML BTL OPB SCH (22:26)
[2023-11-16] MEDS: BRIMONIDINE TARTRATE 0.2% 5ML OPB SCH (22:26)
[2023-11-16] MEDS: TIMOLOL GFS 0.5% OPH SOLN 74 DROPS/5 ML BTL OPB SCH (22:26)
[2023-11-16] MEDS: BUMETANIDE 1 MG TAB PO SCH (22:27)
[2023-11-16] MEDS: METOPROLOL SUCC 25MG EXT REL TAB PO SCH (22:27)
[2023-11-16] MEDS: traZODone HCL 100 MG TAB PO SCH (22:27)
[2023-11-16] MEDS: hydrALAZINE HCL 25 MG TAB PO SCH (22:27)
[2023-11-16] MEDS: rOPINIRole HCL 1 MG TABLET PO SCH (22:27)
[2023-11-16] MEDS: ZOLPIDEM TARTRATE 5 MG TAB PO PRN (22:30)
[2023-11-16] MEDS: traMADol HCL 50 MG TABLET PO PRN (22:30)
[2023-11-16] MEDS ORDERED: CARBOHYDRATES FOR HYPOGLYCEMIA PO PRN (23:55)
[2023-11-16] MEDS ORDERED: GLUCOSE 40% GEL 15 GM TUBE PO PRN (23:55)
[2023-11-16] MEDS ORDERED: GLUCAGON FOR INJ 1 MG VIAL SQ PRN (23:55)
[2023-11-16] MEDS ORDERED: GLUCOSE 10 TAB/TUBE PO PRN (23:55)
[2023-11-16] MEDS ORDERED: DEXTROSE 50% 50 ML SYRINGE IV PRN (23:55)
[2023-11-17] MEDS: INSULIN HUMAN NPH SC SCH (00:51)
[2023-11-17] MEDS: POTASSIUM CHLORIDE CRTAB 20 MEQ TABCR PO STA (00:51)
[2023-11-17 04:39] LABS: Appearance Urine Cloudy (Clear); Bacteria Urine Automated None Seen (None Seen); Bilirubin Urine Negative (Negative); Blood Urine Negative (Negative); Color Urine Yellow; Epithelial Cell Urine Auto 0-2 /hpf (0-2); Glucose Urine UA Trace (Negative); Ketones Urine Negative (Negative); Leukocyte Esterase Urine Negative (Negative); Nitrite Urine Negative (Negative); Protein Urine 3+ (Negative); RBC Urine Automated 0-2 /hpf (0-2); Specific Gravity Urine 1.023 (1.000-1.030); Urobilinogen Urine Negative (Negative); WBC Urine Automated 0-5 /hpf (0-5)
[2023-11-17 06:54] LABS: Basophils # (auto) 0.05 K/uL (0.00-0.20); Basophils % (auto) 0.9 %; Eosinophils # (auto) 0.15 K/uL (0.00-0.50); Eosinophils % (auto) 2.8 %; Hematocrit (blood only) 29.3 % (42.0-52.0); Hemoglobin 9.6 g/dl (14.0-18.0); Immature Granulocytes # (auto) 0.04 K/uL (0.01-0.20); Immature Granulocytes % (auto) 0.7 %; Lymphocytes # (auto) 0.42 K/uL (1.20-3.40); Lymphocytes % (auto) 7.7 %; Mean Corpuscular Hgb Conc 32.8 g/dL (32.0-36.0); Mean Corpuscular Volume 94.5 fL (80.0-100.0); Mean Platelet Volume 13.3 fL (9.4-12.4); Monocytes # (auto) 0.65 K/uL (0.11-0.59); Neutrophils # (auto) 4.12 K/uL (1.40-6.50); Neutrophils % (auto) 75.9 %; Platelet Count 91 K/uL (130-400); RDW Coefficient of Variation 16.3 % (11.5-14.5); RDW Standard Deviation 56.2 fL (36.4-46.3); White Blood Count 5.43 K/ul (4.8-10.8)
[2023-11-17 07:18] LABS: Albumin Level 3.4 gm/dl (3.4-5.0); Bilirubin,Total 0.5 mg/dl (0.2-1.0); Calcium 8.6 mg/dl (8.6-10.3); Potassium 4.4 mmol/L (3.5-5.1)
[2023-11-17 07:34] LABS: Albumin Globulin Ratio 1.3 (0.9-2); BUN Creatinine Ratio 10.4 (10-20); Creatinine Clr Calc Pharmacy 22.8 ml/min; Est GFR (African American) 20.2 ml/min; Est GFR (Non-African American) 17.4 ml/min; Globulin 2.7 gm/dl (2.5-4.0); Total Protein 6.1 gm/dl (6.0-8.3)
[2023-11-17] MEDS: CHOLECALCIFEROL 25 MCG (1000 UNITS) TAB PO SCH (08:43)
[2023-11-17] MEDS: SERTRALINE HCL 50 MG TABLET PO SCH (08:43)
[2023-11-17] MEDS: CALCITRIOL 0.25 MCG CAPSULE PO SCH (08:43)
[2023-11-17] MEDS: PANTOprazole 40 MG TAB PO SCH (08:44)
[2023-11-17] MEDS: ASPIRIN 81 MG ECTAB PO SCH (08:44)
[2023-11-17] MEDS: ISOSORBIDE MONO EXTENDED REL 30 MG TABCR PO SCH (08:44)
[2023-11-17] MEDS: ATORVASTATIN 40 MG TAB PO SCH (08:44)
[2023-11-17] MEDS: CYANOCOBALAMIN (B-12) 500 MCG TABLET PO SCH (08:44)
[2023-11-17] MEDS: rOPINIRole HCL 1 MG TABLET PO SCH (08:45)
[2023-11-17] MEDS: INSULIN ASPART PER UNIT CHARGE SC SCH (08:57)
[2023-11-17 09:37] LABS: Estimated Average Glucose 203 mg/dl; Hemoglobin A1C 8.7 % (4.5-5.6)
--- NOTE | 2023-11-17 12:21 | Nephrology Consultation ---
Date of Consultation November 17, 2023 Assessment & Plan (1) ESRD on dialysis: * Volume status and electrolyte balance are currently acceptable. No acute indication for HD today * Will schedule next HD for am * Outpatient HD Rx: [facility] TTS 3.5hr 3K 2.5Ca Na140 HCO3 32 Qb400 EDW 104.5kg (2) Anemia: * Will provide BASILIO w/ HD (3) Hypoglycemia: * Insulin as per primary service (4) Sacral ulcer: * Recommend wound care consultation and pressure relieving mattress/pad (5) Wound of lower extremity: History of Present Illness Reason for Consultation: ESKD-D Attending Physician: Mono Rascon History of Present Illness Mr. Em is a 73 year old white male who is seen at the request of the [facility] hospitalist service to provide inpatient HD and assist w/medical management. Information for the HPI is obtained from direct patient interview and review of the EMR. HPI is summarized as follows: Mr. Em has ESKD due to DKD. He underwent L RC AVF creation 01/[address] Howard. He began HD 09/30/23 and currently dialyzes at [facility] (TTS 3.5hr 3K 2.5Ca Na140 HCO3 32 Qb400 EDW 104.5kg). Mr. Em's PMH is significant for IDDM complicated by retinopathy, HTN, PVD s/p L BKA, ASCVD s/p CABG x4, nephrotic syndrome w/ chronic LLE swelling. Mr. Em currently resides on his own in [place], [place] but has family nearby who are supportive. He has a pressure ulcer on his R buttock and R lower leg. Mr. Em was dialyzed yesterday without complication. Following treatment he became weak and presented to [facility] for evaluation. BSG was 42. CXR revealed small L pleural effusion. Abdominal CT was without acute abnormalities. Admission was advised for adjustment of insulin regimen and to r/o underlying infection. Allergies Allergy/AdvReac Type Severity Reaction Status Date / Time ofloxacin [From Floxin] Allergy Intermediate itching Verified 11/16/23 17:10 Quinolones Allergy Intermediate Itchiness Verified 11/16/23 17:10 sulfamethoxazole Allergy Intermediate Rash Verified 11/16/23 17:10 trimethoprim Allergy Intermediate Rash Verified 11/16/23 17:10 Home Medications Medication Instructions Recorded Confirmed Type latanoprost 0.005 % eye drops 1 drp OPB HS 12/27/17 11/16/23 History (Xalatan) brimonidine 0.2 % eye drops 1 drp OPB BID 12/07/20 11/16/23 History dorzolamide 2 % eye drops 1 drp OPB BID 12/07/20 11/16/23 History timolol maleate 0.5 % eye gel 1 drp OPB BID 12/07/20 11/16/23 History forming solution calcitriol 0.5 mcg capsule 1 mcg (2 x 0.5 mcg) PO QAM #60 caps 09/17/23 11/16/23 Rx ascorbic acid (vitamin C) 500 mg 500 mg PO QAM #90 caps 11/06/23 11/16/23 Rx capsule cholecalciferol (vitamin D3) 50 2,000 unit PO QAM #90 caps 11/06/23 11/16/23 Rx mcg (2,000 unit) capsule (Vitamin D3) cyanocobalamin (vitamin B-12) 500 1,000 mcg (2 x 500 mcg) PO QAM 11/06/23 11/16/23 Rx mcg tablet #180 tabs trazodone 100 mg tablet 100 mg PO HS #90 tabs 11/06/23 11/16/23 Rx isosorbide mononitrate 30 mg 30 mg PO QAM 90 days #90 tabs 11/08/23 11/16/23 Rx tablet,extended release 24 hr aspirin 81 mg tablet,delayed 81 mg PO QAM #90 tabs 11/09/23 11/16/23 Rx release atorvastatin 80 mg tablet (Lipitor) 80 mg PO DAILY #90 tabs 11/09/23 11/16/23 Rx bumetanide 1 mg tablet 1 mg PO BID #180 tabs 11/09/23 11/16/23 Rx hydralazine 25 mg tablet 75 mg (3 x 25 mg) PO TID 90 days 11/09/23 11/16/23 Rx #810 tabs insulin regular human 100 unit/mL 1 sliding scale dose subcut 11/09/23 11/16/23 Rx injection solution (Humulin R USEASDIRECTD #10 mL Regular U-100 Insulin) ondansetron 4 mg disintegrating 4 mg PO Q8H PRN nausea and 11/09/23 11/16/23 Rx tablet vomiting #90 tabs ropinirole 1 mg tablet See Rx Instructions .Route 11/09/23 11/16/23 Rx .COMPLEX #450 tabs sertraline 50 mg tablet 50 mg PO DAILY #90 tabs 11/09/23 11/16/23 Rx insulin NPH isoph U-100 human 100 10 unit (0.1 mL) subcut BIDM #10 mL 11/10/23 11/16/23 Rx unit/mL subcutaneous suspension (Humulin N NPH U-100 Insulin (isophane susp)) metoprolol succinate 25 mg 25 mg PO BID #60 tabs 11/10/23 11/16/23 Rx tablet,extended release 24 hr pantoprazole 40 mg tablet,delayed 40 mg PO QAM #30 tabs 11/10/23 11/16/23 Rx release tramadol 50 mg tablet 50 mg PO DAILY PRN pain #30 tabs 11/10/23 11/16/23 Rx zolpidem 5 mg tablet 5 mg PO HS PRN insomnia #10 tabs 11/10/23 11/16/23 Rx docusate sodium 100 mg capsule 100 mg PO BID PRN Constipation 11/11/23 11/16/23 History polyethylene glycol 3350 17 gram 17 g PO BID PRN Constipation 11/11/23 11/16/23 History oral powder packet (Miralax) Patient History Medical History Chronic combined systolic and diastolic heart failure Depression Chronic kidney disease, stage 4 (severe) Diabetic peripheral 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 Restless leg syndrome Type 2 diabetes mellitus Ventricular bigeminy 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, with long-term current use of insulin (HFpEF) heart failure with preserved ejection fraction Pressure ulcer of BKA stump, stage 3 RESOLVED Influenza A virus subtype H1 2009 pandemic strain present Slow to wake up after anesthesia Wound of lower extremity RLE wound "improved" per 01/27/21 wound clinic visit ([facility]); surgeon aware of patient's wound hx per 01/2021 office visit note; "only has a little scab there now, keeps it covered to protect it." GERD (gastroesophageal reflux disease) History of TIA (transient ischemic attack) ~2009>over his left eye, no residual symptoms Surgical History S/P arteriovenous (AV) fistula creation left>no currently having dialysis History of esophagogastroduodenoscopy (EGD) History of colonoscopy S/P lumbar laminectomy S/P foot surgery S/P eye surgery B/L x3 (for glaucoma) S/P CABG x 4 (2011) CABG x4 (2011), [facility]; f/u PCP History of lumbar discectomy History of tonsillectomy Family History Father , age 78 with prostate cancer Colorectal cancer Cardiovascular disease Diabetes Prostate cancer Grandmother (Maternal) Diabetes Mother , age 54 of throat cancer Throat cancer Denies family history of Ovarian cancer Myocardial infarction Breast cancer Social History Smoking Status: Never smoker Second Hand Exposure: No; Do You Dip or Chew Tobacco: No; Hx Alcohol Use: No Hx Substance Use: No Preferred Language: Tuvaluan Communication Ability: Effective Visual Impairment: No Limitations Hearing Ability: Normal Windows 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 Feels Safe at Home: Yes Childhood Exposure to Second-Hand Smoke: No Diet: regular caffeine: No during the past year weight has: remained stable Dental Care, Regularly: Yes Physical Activity Frequency: Other Physical Activity Frequency Comment: limited d/t disability Seatbelt Use: always Sunscreen Use: Yes Assistive Devices: Glasses, Prosthesis, Walker and Wheelchair Review of Systems Constitutional: no fever Eyes: no problem reported Ear, Nose, Mouth, Throat: no problem reported Respiratory: no cough and no dyspnea Cardiovascular: no chest pain Gastrointestinal: no abdominal pain, no nausea, no vomiting and no diarrhea/loose stools Integumentary: + skin ulcer (R buttock, RLE) Neurologic: no problem reported Physical Exam Constitutional: + frail appearing Eyes: PERRL, conjunctivae normal, anicteric sclerae ENMT: external ear and nose normal, oropharynx normal Neck: trachea midline, no thyromegaly Respiratory: normal respiratory effort, lungs clear to auscultation Cardiovascular: RRR, no murmur, no edema Gastrointestinal (Abdomen): normal bowel sounds, soft, nontender, no hepatosplenomegaly Skin: + ulcer (R buttock, RLE) Neurologic: PERRL, EOMI, accommodation nl, no face palsy, no dysarthria Results & Data Vital Signs (Past 12 Hours) Vital Signs Temp Pulse Pulse Resp BP Pulse Ox O2 Del Method 11/17/23 11:46 36.6 C 46 L 18 113/58 L 91 Room Air 11/17/23 07:22 36.4 C L 56 L 18 144/70 H 95 Nasal Cannula 11/17/23 02:31 37.1 C 53 L 18 154/62 H 96 Nasal Cannula 11/17/23 00:56 56 L 11/17/23 00:21 Nasal Cannula O2 Flow Rate 11/17/23 11:46 11/17/23 07:22 1.0 11/17/23 02:31 2 11/17/23 00:56 11/17/23 00:21 2 Laboratory Results Laboratory Results WBC 5.43 K/ul (4.8-10.8) 11/17/23 06:30 RBC 3.10 M/uL (4.70-6.10) L 11/17/23 06:30 Hgb 9.6 g/dl (14.0-18.0) L 11/17/23 06:30 POC Hgb 10.5 g/dl (14.0-18.0) L 11/16/23 15:37 Hct 29.3 % (42.0-52.0) L 11/17/23 06:30 POC Hct 31 % (42-52) L 11/16/23 15:37 MCV 94.5 fL (80.0-100.0) 11/17/23 06:30 MCH 31.0 pg (25.0-34.0) 11/17/23 06:30 MCHC 32.8 g/dL (32.0-36.0) 11/17/23 06:30 RDW Std Deviation 56.2 fL (36.4-46.3) H 11/17/23 06:30 RDW Coeff of Jose 16.3 % (11.5-14.5) H 11/17/23 06:30 Plt Count 91 K/uL (130-400) L 11/17/23 06:30 MPV 13.3 fL (9.4-12.4) H 11/17/23 06:30 Immature Gran % (Auto) 0.7 % 11/17/23 06:30 Neut % (Auto) 75.9 % 11/17/23 06:30 Lymph % (Auto) 7.7 % 11/17/23 06:30 Mitchell % (Auto) 12.0 % 11/17/23 06:30 Eos % (Auto) 2.8 % 11/17/23 06:30 Baso % (Auto) 0.9 % 11/17/23 06:30 Neut # (Auto) 4.12 K/uL (1.40-6.50) 11/17/23 06:30 Lymph # (Auto) 0.42 K/uL (1.20-3.40) L 11/17/23 06:30 Mitchell # (Auto) 0.65 K/uL (0.11-0.59) H 11/17/23 06:30 Eos # (Auto) 0.15 K/uL (0.00-0.50) 11/17/23 06:30 Baso # (Auto) 0.05 K/uL (0.00-0.20) 11/17/23 06:30 Immature Gran # (Auto) 0.04 K/uL (0.01-0.20) 11/17/23 06:30 VBG pH 7.35 (7.36-7.41) L 11/16/23 16:04 VBG pCO2 51 mmHg (38-50) H 11/16/23 16:04 VBG pO2 39 mmHg 11/16/23 16:04 VBG HCO3 28 mmol/L 11/16/23 16:04 VBG O2 Saturation 70.2 % 11/16/23 16:04 VBG Base Excess 1.7 mEq/L 11/16/23 16:04 POC Sodium 137 mmol/L (135-144) 11/16/23 15:37 Sodium 137 mmol/L (136-145) 11/17/23 06:30 POC Potassium 3.8 mmol/L (3.3-5.0) 11/16/23 15:37 Potassium 4.4 mmol/L (3.5-5.1) D 11/17/23 06:30 POC Chloride 101 mmol/L (101-112) 11/16/23 15:37 Chloride 104 mmol/L (98-107) 11/17/23 06:30 Carbon Dioxide 26 mmol/L (21-32) 11/17/23 06:30 POC Total CO2 25 mmol/L (24-31) 11/16/23 15:37 Anion Gap 7 (3-11) 11/17/23 06:30 POC Anion Gap 16.0 mmol/L (16-25) 11/16/23 15:37 POC BUN 31 mg/dl (7-18) H 11/16/23 15:37 BUN 34 mg/dl (6-23) H 11/17/23 06:30 Creatinine 3.28 mg/dl (0.6-1.4) H D 11/17/23 06:30 POC Creatinine 3.2 mg/dl (0.6-1.3) H 11/16/23 15:37 Est Cr Clr Drug Dosing 22.8 ml/min 11/17/23 06:30 Est GFR ( Amer) 20.2 ml/min 11/17/23 06:30 Est GFR (Non-Af Amer) 17.4 ml/min 11/17/23 06:30 BUN/Creatinine Ratio 10.4 (10-20) 11/17/23 06:30 Glucose 98 mg/dl (70-99(Fasting)) 11/17/23 06:30 POC Glucose 89 mg/dl (70-99) 11/17/23 11:14 POC Glucose (other) 186 mg/dl (70-99) H 11/16/23 15:37 Estimat Average Glucose 203 mg/dl 11/17/23 06:30 Hemoglobin A1c 8.7 % (4.5-5.6) H 11/17/23 06:30 Lactate 1.4 mmol/L (0.4-2.0) 11/16/23 16:04 Calcium 8.6 mg/dl (8.6-10.3) 11/17/23 06:30 POC Ioniz Calcium Luzma 1.13 mmol/l (1.12-1.32) 11/16/23 15:37 Magnesium 2.0 mg/dl (1.7-2.4) 11/16/23 15:21 Total Bilirubin 0.5 mg/dl (0.2-1.0) 11/17/23 06:30 AST 17 U/L (13-39) 11/17/23 06:30 ALT 23 U/L (7-52) 11/17/23 06:30 Alkaline Phosphatase 91 U/L (34-104) 11/17/23 06:30 Total Protein 6.1 gm/dl (6.0-8.3) 11/17/23 06:30 Albumin 3.4 gm/dl (3.4-5.0) 11/17/23 06:30 Globulin 2.7 gm/dl (2.5-4.0) 11/17/23 06:30 Albumin/Globulin Ratio 1.3 (0.9-2) 11/17/23 06:30 Procalcitonin 0.28 ng/ml (0-0.5) 11/16/23 15:21 Urine Color Yellow 11/17/23 04:25 Urine Appearance Cloudy (Clear) A 11/17/23 04:25 Urine pH 5.0 (4.5-7.5) 11/17/23 04:25 Ur Specific Ceres 1.023 (1.000-1.030) 11/17/23 04:25 Urine Protein 3+ (Negative) H 11/17/23 04:25 Urine Glucose (UA) Trace (Negative) H 11/17/23 04:25 Urine Ketones Negative (Negative) 11/17/23 04:25 Urine Blood Negative (Negative) 11/17/23 04:25 Urine Nitrite Negative (Negative) 11/17/23 04:25 Urine Bilirubin Negative (Negative) 11/17/23 04:25 Urine Urobilinogen Negative (Negative) 11/17/23 04:25 Ur Leukocyte Esterase Negative (Negative) 11/17/23 04:25 Urine WBC (Auto) 0-5 /hpf (0-5) 11/17/23 04:25 Urine RBC (Auto) 0-2 /hpf (0-2) 11/17/23 04:25 U Hyaline Cast (Auto) 3-5 /lpf (0-2) H 11/17/23 04:25 U Epithel Cells (Auto) 0-2 /hpf (0-2) 11/17/23 04:25 Urine Bacteria (Auto) None Seen (None Seen) 11/17/23 04:25 Nasal Screen MRSA (PCR) Negative (Negative) 11/16/23 Unknown Random Vancomycin 13.9 mcg/ml (10-20) 11/17/23 06:30 Impressions Chest X-Ray 11/16/23 16:28 XR chest 1V portable CLINICAL HISTORY: Altered mental status. COMPARISON STUDY: Chest radiograph November 08, 2023. FINDINGS: Dual lumen right internal jugular venous catheter is unchanged in position. There are median sternotomy wires. Moderate cardiomegaly is again noted. Pulmonary edema has moderately improved since chest radiograph of November 08, 2023. A small left pleural effusion with left basilar opacity is present. There is no pneumothorax. IMPRESSION: 1. Interval improvement in pulmonary edema since chest radiograph of November 08, 2023. 2. Small left pleural effusion with left basilar opacity that favors atelectasis. ACT 112: Negative or not required by law. Electronically signed by: Camilo Block M.D. 11/16/2023 4:45 PM Abdomen/Pelvis CT 11/16/23 16:30 CT abd pelvis IV con only CLINICAL HISTORY: vomiting ? ams sacral pain TECHNIQUE: Helical axial images of the abdomen and pelvis were obtained and displayed. Automated dose lowering techniques and/or adjustment according to patient size were utilized for this exam. This exam was performed with intravenous contrast. CT DOSE: 1420.33 mGy.cm COMPARISON: Comparison is made to CT abdomen pelvis 12/21/2022 FINDINGS: Lower chest: Small bilateral pleural effusions are seen. Liver: Unremarkable. No focal lesions are seen. Gallbladder and biliary tree: No calcified gallstones. Normal caliber wall. No intra- or extrahepatic biliary ductal dilation. Pancreas: Unremarkable, no focal lesions. Spleen: Unremarkable. Adrenals: Unremarkable. Kidneys and ureters: Perinephric stranding is noted bilaterally. Bladder: Diffuse homogeneous wall thickening is seen. Reproductive organs: Unremarkable. Bowel: Diverticulosis is seen without diverticulitis. The appendix is normal. Lymph nodes Retroperitoneal: Unremarkable. Pelvic: Unremarkable. Mesenteric: Unremarkable. Peritoneum: Trace free fluid in the pelvis is likely physiologic. Vessels: Atherosclerotic calcifications are seen. Abdominal wall: Trace fat stranding is seen. Bones: Posterior fixation hardware is seen in the lumbar spine. Degenerative changes are seen. IMPRESSION: No acute abnormalities. Trace peritoneal fluid and body wall edema is seen which may represent fluid overload. ACT 112: Negative or not required by law. Electronically signed by: Lai Marion M.D. 11/16/2023 6:13 PM PG Care Time/CCT Total # of Minutes Spent Total Time Spent with Patient: Total time spent is greater than 50% in coordination of care (as documented) at patient's floor/unit and/or counseling patient: Coding Level of Care Code 37593 IN/OBS CONSULT LVL 5,80M Diagnoses ESRD on dialysis N18.6; Z99.2 Anemia D64.9 Anemia type: unspecified type Hypoglycemia E16.2 Sacral ulcer L98.429 Wound of lower extremity S81.809A (2) Anemia Anemia type: unspecified type Qualified Code(s): D64.9 - Anemia, unspecified
[2023-11-17] MEDS ORDERED: VANCOMYCIN HCL 500 MG in NSS 100mL IV ONE (13:00)
[2023-11-17] MEDS: ACETAMINOPHEN 325 MG TAB PO PRN (13:13)
--- NOTE | 2023-11-17 14:28 | Pharmacy Report ---
Pharmacy PK ABX Note - Date of Service November 17, 2023 - Assessment and Plan Assessment 73 year old M receiving empiric vancomycin and cefepime for infectious concern of sacral ulcer. Pertinent microbiologic data includes: MRSA nasal swab negative, blood cultures pending. Patient with history of ESRD on chronic HD. Last HD yesterday and planned again for 11/18/23. Day # 2 of antimicrobial therapy. Plan Vancomycin * Loading dose: 2000 mg IV x 1 * Random level this morning of 13.9 mcg/mL * Will give additional 500 mg IV x 1 supplemental dose of vanco today and recheck random level tomorrow morning (11/18/23) prior to HD * Will dose based on random levels Pharmacy will continue to follow and will adjust dose/frequency as necessary. Thank you.
--- NOTE | 2023-11-17 15:32 | Electrocardiogram Report ---
Test Reason : Blood Pressure : */* mmHG Vent. Rate : 49 BPM Atrial Rate : * BPM P-R Int : * ms QRS Dur : 138 ms QT Int : 560 ms P-R-T Axes : * -69 142 degrees QTcB Int : 505 ms Sinus bradycardia with frequent Premature ventricular complexes in a pattern of bigeminy Left axis deviation Right bundle branch block T wave abnormality, consider lateral ischemia Abnormal ECG Confirmed by Jose Francisco Medina ([id number]) on 11/17/2023 3:32:14 PM Referred By: REFERRED SELF Confirmed By: Jose Francisco Medina
[2023-11-17] MEDS: VANCOMYCIN HCL 500 MG in NSS 100mL IV ONE (15:54)
--- NOTE | 2023-11-17 20:50 | Hospitalist Progress Note ---
Date of Service November 17, 2023 Assessment & Plan (1) Hypoglycemia associated with diabetes: (2) Sacral ulcer: (3) Wound of lower extremity: (4) ESRD on dialysis: Plan 1. Hypoglycemia Metabolic encephalopathy Pt presented to ED with BSG of 42. He required D5 x 2 prior to admission to raise his blood glucose. May be due to underlying infection or adapting to newly started dialysis. Pt is currently afebrile, WBC is within normal range, lactate and procalcitonin were also in normal range. Chest x-ray and CT abdomen/pelvis did not show evidence of infectious sources. Blood cultures and wound obtained. -Ordered BGS checks q2h. Provider to be alerted if <80 or >180 -SYmptoms have improved. Blood suagr appears to be better, tolerating diet. -awaiting cultures. -Resume novolog when BSG regulate -Monitor CBC with diff for elevation and signs of infection 2. Sacral Ulcer/ Pressure ulcer of sacral region, stage 2, POA Pt c/o central buttock pain. Found to have shallow ulcer at coccyx area. Wound culture taken. - Continue IV Vancomycin 2g BID - Started IV cefepime 1 g daily-renally dosed for hemodialysis-administer after dialysis on dialysis days to cover pseudomonas - Ordered low airloss mattress for pressure relief - Ordered PT/OT evaluations - Wound nurse consult 3. Lower extremity wounds Multiple wounds at right lower leg with bandages. Most were shallow, but weeping. - Await wound culture-wound care nurse consult - Change dressings at right LE as needed 4. ESRD on dialysis Pt underwent full session of dialysis today. Will be due for next session on 11/18/23. - Nephrology consult - Monitor CMP for electrolytes Chronic CAD -Continue atorvastatin 80 mg qd, metoprolol 25mg qd, asa 81 mg qd Depression -Continue sertraline 50mg qd Chronic pain -Continue tramadol 50mg qd PRN Insomnia -Continue trazodone 100mg qhs and zolpidem 5mg PRN GERD -Continue pantoprazole 40mg qd Glaucome Continue dorzolamide BID, latanoprost hs, timolol BID Full code PT/OT evals SCD's and home med of 81 mg ASA Admission and Anticipated Discharge Date Admission Date: November 16, 2023 Subjective 73 yo male reports no new symptoms. Patient sttaes feeling much better. Review of Systems Review of Systems: All systems reviewed & are unremarkable except as noted in HPI & below Physical Exam Physical Exam: Constitutional: well developed, well nourished, recovered Eyes: PERRL, conjunctivae normal, anicteric sclerae ENMT: external ear and nose normal, oropharynx normal Respiratory: normal respiratory effort, lungs clear to auscultation Cardiovascular: RRR, no murmur, no edema Gastrointestinal (Abdomen): Inspection/Auscultation: abdomen normal to inspection and normal bowel sounds; abdomen not distended nontender. Skin: + ulcer (Sacral/coccyx region, anterior right tibial, right anterior foot, 5th toe) Psychiatric: A+Ox3, euthymic affect Results & Data Results & Data Vital Signs (Past 12 Hours) Vital Signs Temp Pulse Resp BP Pulse Ox O2 Del Method 11/17/23 19:35 36.4 C L 55 L 16 144/67 H 92 Room Air 11/17/23 15:24 36.4 C L 51 L 18 135/67 92 Room Air 11/17/23 11:46 36.6 C 46 L 18 113/58 L 91 Room Air PG Care Time/CCT Total # of Minutes Spent Total Time Spent with Patient: Total time spent is greater than 50% in coordination of care (as documented) at patient's floor/unit and/or counseling patient: Coding Level of Care Code 94321 SUB INP/OBS CARE 2/35MIN Diagnoses Hypoglycemia associated with diabetes E11.649 Sacral ulcer L98.429 Wound of lower extremity S81.809A ESRD on dialysis N18.6; Z99.2
[2023-11-18 06:56] LABS: Basophils # (auto) 0.04 K/uL (0.00-0.20); Basophils % (auto) 0.7 %; Eosinophils # (auto) 0.19 K/uL (0.00-0.50); Eosinophils % (auto) 3.3 %; Hematocrit (blood only) 31.4 % (42.0-52.0); Immature Granulocytes # (auto) 0.03 K/uL (0.01-0.20); Immature Granulocytes % (auto) 0.5 %; Lymphocytes # (auto) 0.47 K/uL (1.20-3.40); Lymphocytes % (auto) 8.1 %; Mean Corpuscular Hemoglobin 31.3 pg (25.0-34.0); Mean Corpuscular Hgb Conc 31.8 g/dL (32.0-36.0); Mean Corpuscular Volume 98.4 fL (80.0-100.0); Mean Platelet Volume 13.8 fL (9.4-12.4); Monocytes # (auto) 0.68 K/uL (0.11-0.59); Monocytes % (auto) 11.7 %; Neutrophils # (auto) 4.38 K/uL (1.40-6.50); Neutrophils % (auto) 75.7 %; Platelet Count 90 K/uL (130-400); RDW Coefficient of Variation 16.2 % (11.5-14.5); RDW Standard Deviation 58.6 fL (36.4-46.3); Red Blood Count 3.19 M/uL (4.70-6.10); White Blood Count 5.79 K/ul (4.8-10.8)
[2023-11-18] MEDS ORDERED: SODIUM CHLORIDE 0.9% 1,000 ML IV PRN (07:00)
[2023-11-18 07:03] LABS: Albumin Level 3.6 gm/dl (3.4-5.0); Bilirubin,Total 0.5 mg/dl (0.2-1.0); Calcium 8.8 mg/dl (8.6-10.3)
[2023-11-18 07:09] LABS: Albumin Globulin Ratio 1.3 (0.9-2); BUN Creatinine Ratio 10.2 (10-20); Creatinine Clr Calc Pharmacy 18.5 ml/min; Est GFR (African American) 15.8 ml/min; Est GFR (Non-African American) 13.6 ml/min; Globulin 2.8 gm/dl (2.5-4.0); Total Protein 6.4 gm/dl (6.0-8.3)
--- NOTE | 2023-11-18 08:40 | Nephrology Progress Note ---
Date of Service November 18, 2023 Assessment & Plan (1) ESRD on dialysis: Plan: * Will provide HD today according to outpatient orders. 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 Em was evaluated in his hospital room this morning. He was sitting on his motorized scooter because he was tired of lying in bed Review of Systems Constitutional: no fever Eyes: no problem reported Ear, Nose, Mouth, Throat: no problem reported Respiratory: no cough and no dyspnea Cardiovascular: no chest pain Gastrointestinal: no abdominal pain, no nausea, no vomiting and no diarrhea/loose stools Integumentary: + skin ulcer (R buttock, RLE) Neurologic: no problem reported Physical Exam Constitutional: + frail appearing Eyes: PERRL, conjunctivae normal, anicteric sclerae ENMT: external ear and nose normal, oropharynx normal Neck: trachea midline, no thyromegaly Respiratory: normal respiratory effort, lungs clear to auscultation Cardiovascular: RRR, no murmur, no edema Gastrointestinal (Abdomen): normal bowel sounds, soft, nontender, no hepatosplenomegaly Skin: + ulcer (R buttock, RLE) Neurologic: PERRL, EOMI, accommodation nl, no face palsy, no dysarthria Results & Data Vital Signs (Past 12 Hours) Vital Signs Temp Pulse Pulse Resp BP Pulse Ox O2 Del Method 11/18/23 07:48 36.5 C 60 18 120/66 96 Room Air 11/18/23 02:42 36.6 C 59 L 18 130/59 L 91 Room Air 11/17/23 23:00 59 L 11/17/23 22:43 36.3 C L 62 18 136/70 92 Room Air 11/17/23 21:34 O2 Del Method 11/18/23 07:48 11/18/23 02:42 11/17/23 23:00 11/17/23 22:43 11/17/23 21:34 Room Air Laboratory Results Laboratory Results - last 24 hr 11/17/23 11/17/23 11/17/23 06:30 11:14 16:04 WBC RBC Hgb Hct MCV MCH MCHC RDW Std Deviation RDW Coeff of Jose Plt Count MPV Immature Gran % (Auto) Neut % (Auto) Lymph % (Auto) Mingo % (Auto) Eos % (Auto) Baso % (Auto) Neut # (Auto) Lymph # (Auto) Mingo # (Auto) Eos # (Auto) Baso # (Auto) Immature Gran # (Auto) Sodium Potassium Chloride Carbon Dioxide Anion Gap BUN Creatinine Est Cr Clr Drug Dosing Est GFR ( Amer) Est GFR (Non-Af Amer) BUN/Creatinine Ratio Glucose POC Glucose 89 136 H Estimat Average Glucose 203 Hemoglobin A1c 8.7 H Calcium Total Bilirubin AST ALT Alkaline Phosphatase Total Protein Albumin Globulin Albumin/Globulin Ratio Random Vancomycin 11/17/23 11/18/23 11/18/23 20:09 05:59 07:28 WBC 5.79 RBC 3.19 L Hgb 10.0 L Hct 31.4 L MCV 98.4 MCH 31.3 MCHC 31.8 L RDW Std Deviation 58.6 H RDW Coeff of Jose 16.2 H Plt Count 90 L MPV 13.8 H Immature Gran % (Auto) 0.5 Neut % (Auto) 75.7 Lymph % (Auto) 8.1 Mingo % (Auto) 11.7 Eos % (Auto) 3.3 Baso % (Auto) 0.7 Neut # (Auto) 4.38 Lymph # (Auto) 0.47 L Mingo # (Auto) 0.68 H Eos # (Auto) 0.19 Baso # (Auto) 0.04 Immature Gran # (Auto) 0.03 Sodium 132 L Potassium 5.0 Chloride 99 Carbon Dioxide 25 Anion Gap 8 BUN 41 H Creatinine 4.03 H D Est Cr Clr Drug Dosing 18.5 Est GFR ( Amer) 15.8 Est GFR (Non-Af Amer) 13.6 BUN/Creatinine Ratio 10.2 Glucose 186 H POC Glucose 285 H 209 H Estimat Average Glucose Hemoglobin A1c Calcium 8.8 Total Bilirubin 0.5 AST 22 ALT 25 Alkaline Phosphatase 108 H Total Protein 6.4 Albumin 3.6 Globulin 2.8 Albumin/Globulin Ratio 1.3 Random Vancomycin 15.5 PG Care Time/CCT Total # of Minutes Spent Total Time Spent with Patient: Total time spent is greater than 50% in coordination of care (as documented) at patient's floor/unit and/or counseling patient: Coding Level of Care Code 53669 SUB INP/OBS CARE 3/50MIN Diagnoses ESRD on dialysis N18.6; Z99.2 Anemia D64.9 Anemia type: unspecified type Hypoglycemia E16.2 Sacral ulcer L98.429 Wound of lower extremity S81.809A (2) Anemia Anemia type: unspecified type Qualified Code(s): D64.9 - Anemia, unspecified
[2023-11-18] MEDS: INSULIN ASPART PER UNIT CHARGE SC SCH (09:41)
--- NOTE | 2023-11-18 13:12 | Pharmacy Report ---
Pharmacy PK ABX Note - Date of Service November 18, 2023 - Assessment and Plan Assessment 11/18/23: * Pre-HD level obtained this AM, resulted at 15.5 mcg/mL * Patient appears to produce a significant amount of urine for an HD patient (~800 mL of urine output on 11/16). HD planned for today - 3.5 hours. * Will redose patient this evening after HD 73 year old M receiving empiric vancomycin and cefepime for infectious concern of sacral ulcer. Pertinent microbiologic data includes: MRSA nasal swab negative, blood cultures pending. Patient with history of ESRD on chronic HD. Last HD yesterday and planned again for 11/18/23. Day # 2 of antimicrobial therapy. Plan Vancomycin * 1000 mg IV x 1 dose after HD * Continue to obtain pre-HD levels and redose accordingly Pharmacy will continue to follow and will adjust dose/frequency as necessary. Thank you.
[2023-11-18] MEDS: VANCOMYCIN HCL 1,000 MG in SODIUM CHLORIDE 0.9% 250 ML IV SCH (17:54)
[2023-11-18] MEDS: EPOETIN ALFA 10,000 UNITS/ML VIAL IV ONE (19:37)
[2023-11-18] MEDS: DOXYCYCLINE HYCLATE 100 MG CAP PO ONE (20:33)
--- NOTE | 2023-11-18 22:55 | Hospitalist Progress Note ---
Date of Service November 18, 2023 Assessment & Plan (1) Hypoglycemia associated with diabetes: (2) Sacral ulcer: (3) Wound of lower extremity: (4) ESRD on dialysis: Plan 1. Hypoglycemia Metabolic encephalopathy Pt presented to ED with BSG of 42. He required D5 x 2 prior to admission to raise his blood glucose. May be due to underlying infection or adapting to newly started dialysis. Pt is currently afebrile, WBC is within normal range, lactate and procalcitonin were also in normal range. Chest x-ray and CT abdomen/pelvis did not show evidence of infectious sources. Blood cultures and wound obtained. -Ordered BGS checks q2h. Provider to be alerted if <80 or >180 -SYmptoms have improved. Blood suagr appears to be better, tolerating diet. -awaiting cultures. -Resume novolog when BSG regulate -resolved 2. Sacral Ulcer/ Pressure ulcer of sacral region, stage 2, POA Pt c/o central buttock pain. Found to have shallow ulcer at coccyx area. Wound culture taken. - Continue IV Vancomycin 2g BID - Started IV cefepime 1 g daily-renally dosed for hemodialysis-administer after dialysis on dialysis days to cover pseudomonas - Ordered low airloss mattress for pressure relief - Ordered PT/OT evaluations - Wound nurse consult -continue antibiotics, will transition to PO doxy for MRSA coverage, continue cefepime. 3. Lower extremity wounds Multiple wounds at right lower leg with bandages. Most were shallow, but weeping. - Await wound culture-wound care nurse consult - Change dressings at right LE as needed 4. ESRD on dialysis Pt underwent full session of dialysis today. Will be due for next session on 11/18/23. - Nephrology consult - Monitor CMP for electrolytes Chronic CAD -Continue atorvastatin 80 mg qd, metoprolol 25mg qd, asa 81 mg qd Depression -Continue sertraline 50mg qd Chronic pain -Continue tramadol 50mg qd PRN Insomnia -Continue trazodone 100mg qhs and zolpidem 5mg PRN GERD -Continue pantoprazole 40mg qd Glaucome Continue dorzolamide BID, latanoprost hs, timolol BID Full code PT/OT evals SCD's and home med of 81 mg ASA Admission and Anticipated Discharge Date Admission Date: November 16, 2023 Subjective Patient reports no new symptoms. Patient states to be feeling well. Review of Systems Review of Systems: All systems reviewed & are unremarkable except as noted in HPI & below Physical Exam Physical Exam: Constitutional: well developed, well nourished, recovered Eyes: PERRL, conjunctivae normal, anicteric sclerae ENMT: external ear and nose normal, oropharynx normal Respiratory: normal respiratory effort, lungs clear to auscultation Cardiovascular: RRR, no murmur, no edema Gastrointestinal (Abdomen): Inspection/Auscultation: abdomen normal to inspection and normal bowel sounds; abdomen not distended nontender. Skin: + ulcer (Sacral/coccyx region, anterior right tibial, right anterior foot, 5th toe) Psychiatric: A+Ox3, euthymic affect Results & Data Results & Data Vital Signs (Past 12 Hours) Vital Signs Temp Pulse Pulse Pulse Resp BP BP 11/18/23 20:25 36.6 C 59 L 20 137/66 11/18/23 20:14 44 L 121/57 L 11/18/23 20:00 59 L 138/83 11/18/23 19:00 57 L 125/78 11/18/23 18:30 55 L 124/60 11/18/23 18:00 58 L 125/62 11/18/23 17:30 59 L 125/69 11/18/23 17:00 59 L 93/77 L 11/18/23 16:30 54 L 104/83 11/18/23 16:25 36.5 C 44 L 11/18/23 15:28 36.6 C 77 16 125/74 11/18/23 11:00 36.6 C 74 16 116/62 Pulse Ox O2 Del Method 11/18/23 20:25 91 Room Air 11/18/23 20:14 11/18/23 20:00 11/18/23 19:00 11/18/23 18:30 11/18/23 18:00 11/18/23 17:30 11/18/23 17:00 11/18/23 16:30 11/18/23 16:25 11/18/23 15:28 96 Room Air 11/18/23 11:00 97 Room Air PG Care Time/CCT Total # of Minutes Spent Total Time Spent with Patient: Total time spent is greater than 50% in coordination of care (as documented) at patient's floor/unit and/or counseling patient: Coding Level of Care Code 75145 SUB INP/OBS CARE MIN Diagnoses Hypoglycemia associated with diabetes E11.649 Sacral ulcer L98.429 Wound of lower extremity S81.809A ESRD on dialysis N18.6; Z99.2
[2023-11-19 08:10] LABS: Alanine Aminotransferase 31 U/L (7-52); Albumin Globulin Ratio 1.3 (0.9-2); Albumin Level 3.7 gm/dl (3.4-5.0); Alkaline Phosphatase 114 U/L (34-104); Anion Gap 9 (3-11); BUN Creatinine Ratio 9.9 (10-20); Bilirubin,Total 0.4 mg/dl (0.2-1.0); Blood Urea Nitrogen 34 mg/dl (6-23); Calcium 8.6 mg/dl (8.6-10.3); Carbon Dioxide 22 mmol/L (21-32); Chloride 100 mmol/L (98-107); Creatinine Clr Calc Pharmacy 21.8 ml/min; Est GFR (African American) 19.1 ml/min; Est GFR (Non-African American) 16.5 ml/min; Globulin 2.8 gm/dl (2.5-4.0); Glucose 229 mg/dl (70-99(Fasting)); Sodium 131 mmol/L (136-145); Total Protein 6.5 gm/dl (6.0-8.3)
[2023-11-19 08:40] LABS: Basophils # (auto) 0.03 K/uL (0.00-0.20); Basophils % (auto) 0.7 %; Eosinophils # (auto) 0.09 K/uL (0.00-0.50); Hematocrit (blood only) 29.2 % (42.0-52.0); Hemoglobin 9.4 g/dl (14.0-18.0); Immature Granulocytes # (auto) 0.02 K/uL (0.01-0.20); Immature Granulocytes % (auto) 0.5 %; Lymphocytes # (auto) 0.42 K/uL (1.20-3.40); Lymphocytes % (auto) 9.5 %; Mean Corpuscular Hgb Conc 32.2 g/dL (32.0-36.0); Mean Corpuscular Volume 96.4 fL (80.0-100.0); Monocytes # (auto) 0.59 K/uL (0.11-0.59); Monocytes % (auto) 13.3 %; Neutrophils # (auto) 3.29 K/uL (1.40-6.50); Platelet Count 83 K/uL (130-400); RDW Coefficient of Variation 16.1 % (11.5-14.5); RDW Standard Deviation 57.1 fL (36.4-46.3); Red Blood Count 3.03 M/uL (4.70-6.10); White Blood Count 4.44 K/ul (4.8-10.8)
[2023-11-19] MEDS ORDERED: SODIUM CHLORIDE 0.9% 1,000 ML IV PRN (08:54)
--- NOTE | 2023-11-19 10:57 | Nephrology Progress Note ---
Date of Service November 19, 2023 Assessment & Plan (1) ESRD on dialysis: Plan: * Will provide HD today for 2 days to transition to MWF schedule. bingo caller HD RN notified * Outpatient HD Rx: [facility] MWF 3.5hr 3K 2.5Ca Na140 HCO3 32 Qb400 EDW 104.5kg (2) Anemia: Plan: * Will provide BASILIO w/ HD (3) Hypoglycemia: Plan: * Insulin as per primary service (4) Sacral ulcer: Plan: * Recommend wound care consultation and pressure relieving mattress/pad (5) Wound of lower extremity: Admission and Anticipated Discharge Date Admission Date: November 16, 2023 Subjective Mr. Em was evaluated in his hospital room this morning. He reports that he feels well and hopes to return home soon Review of Systems Constitutional: no fever Eyes: no problem reported Ear, Nose, Mouth, Throat: no problem reported Respiratory: no cough and no dyspnea Cardiovascular: no chest pain Gastrointestinal: no abdominal pain, no nausea, no vomiting and no diarrhea/loose stools Integumentary: + skin ulcer (R buttock, RLE) Neurologic: no problem reported Physical Exam Constitutional: + frail appearing Eyes: PERRL, conjunctivae normal, anicteric sclerae ENMT: external ear and nose normal, oropharynx normal Neck: trachea midline, no thyromegaly Respiratory: normal respiratory effort, lungs clear to auscultation Cardiovascular: RRR, no murmur, no edema Gastrointestinal (Abdomen): normal bowel sounds, soft, nontender, no hepatosplenomegaly Skin: + ulcer (R buttock, RLE) Neurologic: PERRL, EOMI, accommodation nl, no face palsy, no dysarthria Results & Data Vital Signs (Past 12 Hours) Vital Signs Temp Pulse Pulse Pulse Resp BP Pulse Ox 11/19/23 06:59 36.4 C L 56 L 22 148/83 H 98 11/19/23 03:14 36.8 C 60 16 132/66 97 11/19/23 00:00 56 L 11/18/23 23:30 36.8 C 58 L 14 111/58 L 95 O2 Del Method O2 Flow Rate 11/19/23 06:59 Nasal Cannula 4 11/19/23 03:14 Nasal Cannula 4.0 11/19/23 00:00 11/18/23 23:30 Nasal Cannula 4.0 Laboratory Results Laboratory Results - last 24 hr 11/18/23 11/18/23 11/18/23 11:23 15:33 20:34 WBC RBC Hgb Hct MCV MCH MCHC RDW Std Deviation RDW Coeff of Jose Plt Count MPV Immature Gran % (Auto) Neut % (Auto) Lymph % (Auto) Hitchcock % (Auto) Eos % (Auto) Baso % (Auto) Neut # (Auto) Lymph # (Auto) Hitchcock # (Auto) Eos # (Auto) Baso # (Auto) Immature Gran # (Auto) Absolute Nucleated RBC Nucleated RBC % (auto) Neutrophils % (Manual) Band Neutrophils % Lymphocytes % (Manual) Prolymphocyte % Reactive Lymphs % (Man) Monocytes % (Manual) Eosinophils % (Manual) Basophils % (Manual) Metamyelocytes % (Man) Myelocytes % (Man) Promyelocytes % (Man) Blast Cells % (Manual) Plasma Cell % (Manual) Other Cells % Nucleated RBC % Neutrophils # (Manual) Band Neutrophils # Total Absolute Neuts Lymphocytes # (Manual) Prolymphocyte # Reactive Lymphs # Total Abs Lymphocytes Monocytes # (Manual) Eosinophils # (Manual) Basophils # (Manual) Metamyelocytes # (Man) Myelocytes # (Manual) Promyelocytes # (Man) Blast Cells # (Man) Plasma Cell # (Manual) Other Cells # Nucleated RBCs # (Man) Hypersegmented Neuts Hyposegmented Neuts Hypogranular Neuts Large Granular Lymphs # Lrg Granular Lymphs Hairy Cells Smudge Cells Toxic Granulation Toxic Vacuolation Dohle Bodies Brenda Rods Platelet Estimate Hypogranular Platelets Giant Platelets Platelet Satelliting RBC Morphology Polychromasia Hypochromasia Poikilocytosis Basophilic Stippling Anisocytosis Microcytosis Macrocytosis Spherocytes Pappenheimer Bodies Sickle Cells Target Cells Tear Drop Cells Ovalocytes Stomatocytes Sanchez-Bouse Bodies Echinocytes Acanthocytes (Spur) Rouleaux RBC Agglutinates Schistocytes Sezary Cell Sodium Potassium Chloride Carbon Dioxide Anion Gap BUN Creatinine Est Cr Clr Drug Dosing Est GFR ( Amer) Est GFR (Non-Af Amer) BUN/Creatinine Ratio Glucose POC Glucose 109 H 85 102 H Calcium Total Bilirubin AST ALT Alkaline Phosphatase Total Protein Albumin Globulin Albumin/Globulin Ratio Blood Parasites ID 11/19/23 11/19/23 11/19/23 06:58 07:00 08:25 WBC Cancelled 4.44 L RBC Cancelled 3.03 L Hgb Cancelled 9.4 L Hct Cancelled 29.2 L MCV Cancelled 96.4 MCH Cancelled 31.0 MCHC Cancelled 32.2 RDW Std Deviation Cancelled 57.1 H RDW Coeff of Jose Cancelled 16.1 H Plt Count Cancelled 83 L MPV Cancelled 13.0 H Immature Gran % (Auto) Cancelled 0.5 Neut % (Auto) Cancelled 74.0 Lymph % (Auto) Cancelled 9.5 Hitchcock % (Auto) Cancelled 13.3 Eos % (Auto) Cancelled 2.0 Baso % (Auto) Cancelled 0.7 Neut # (Auto) Cancelled 3.29 Lymph # (Auto) Cancelled 0.42 L Hitchcock # (Auto) Cancelled 0.59 Eos # (Auto) Cancelled 0.09 Baso # (Auto) Cancelled 0.03 Immature Gran # (Auto) Cancelled 0.02 Absolute Nucleated RBC Cancelled Nucleated RBC % (auto) Cancelled Neutrophils % (Manual) Cancelled Band Neutrophils % Cancelled Lymphocytes % (Manual) Cancelled Prolymphocyte % Cancelled Reactive Lymphs % (Man) Cancelled Monocytes % (Manual) Cancelled Eosinophils % (Manual) Cancelled Basophils % (Manual) Cancelled Metamyelocytes % (Man) Cancelled Myelocytes % (Man) Cancelled Promyelocytes % (Man) Cancelled Blast Cells % (Manual) Cancelled Plasma Cell % (Manual) Cancelled Other Cells % Cancelled Nucleated RBC % Cancelled Neutrophils # (Manual) Cancelled Band Neutrophils # Cancelled Total Absolute Neuts Cancelled Lymphocytes # (Manual) Cancelled Prolymphocyte # Cancelled Reactive Lymphs # Cancelled Total Abs Lymphocytes Cancelled Monocytes # (Manual) Cancelled Eosinophils # (Manual) Cancelled Basophils # (Manual) Cancelled Metamyelocytes # (Man) Cancelled Myelocytes # (Manual) Cancelled Promyelocytes # (Man) Cancelled Blast Cells # (Man) Cancelled Plasma Cell # (Manual) Cancelled Other Cells # Cancelled Nucleated RBCs # (Man) Cancelled Hypersegmented Neuts Cancelled Hyposegmented Neuts Cancelled Hypogranular Neuts Cancelled Large Granular Lymphs Cancelled # Lrg Granular Lymphs Cancelled Hairy Cells Cancelled Smudge Cells Cancelled Toxic Granulation Cancelled Toxic Vacuolation Cancelled Dohle Bodies Cancelled Brenda Rods Cancelled Platelet Estimate Cancelled Hypogranular Platelets Cancelled Giant Platelets Cancelled Platelet Satelliting Cancelled RBC Morphology Cancelled Polychromasia Cancelled Hypochromasia Cancelled Poikilocytosis Cancelled Basophilic Stippling Cancelled Anisocytosis Cancelled Microcytosis Cancelled Macrocytosis Cancelled Spherocytes Cancelled Pappenheimer Bodies Cancelled Sickle Cells Cancelled Target Cells Cancelled Tear Drop Cells Cancelled Ovalocytes Cancelled Stomatocytes Cancelled Sanchez-Bouse Bodies Cancelled Echinocytes Cancelled Acanthocytes (Spur) Cancelled Rouleaux Cancelled RBC Agglutinates Cancelled Schistocytes Cancelled Sezary Cell Cancelled Sodium 131 L Potassium TNP 5.0 Chloride 100 Carbon Dioxide 22 Anion Gap 9 BUN 34 H Creatinine 3.44 H D Est Cr Clr Drug Dosing 21.8 Est GFR ( Amer) 19.1 Est GFR (Non-Af Amer) 16.5 BUN/Creatinine Ratio 9.9 L Glucose 229 H POC Glucose 226 H Calcium 8.6 Total Bilirubin 0.4 AST TNP 26 ALT 31 Alkaline Phosphatase 114 H Total Protein 6.5 Albumin 3.7 Globulin 2.8 Albumin/Globulin Ratio 1.3 Blood Parasites ID Cancelled PG Care Time/CCT Total # of Minutes Spent Total Time Spent with Patient: Total time spent is greater than 50% in coordination of care (as documented) at patient's floor/unit and/or counseling patient: Coding Level of Care Code 41890 SUB INP/OBS CARE 3/50MIN Diagnoses ESRD on dialysis N18.6; Z99.2 Anemia D64.9 Anemia type: unspecified type Hypoglycemia E16.2 Sacral ulcer L98.429 Wound of lower extremity S81.809A (2) Anemia Anemia type: unspecified type Qualified Code(s): D64.9 - Anemia, unspecified
[2023-11-19] MEDS: EPOETIN ALFA 10,000 UNITS/ML VIAL IV ONE (11:03)
[2023-11-19] MEDS: HEPARIN SOD (PORCINE) 1000 UNIT/ML IV ONE (11:04)
[2023-11-19] MEDS: HEPARIN SOD (PORCINE) 1000 UNIT/ML IV SCH (11:04)
[2023-11-19 12:54] VITALS: BP 123/57; RESP 19; TEMP 97.3; O2SAT 91
[2023-11-19] MEDS: DOXYCYCLINE HYCLATE 100 MG CAP PO STA (13:19)
[2023-11-19] MEDS: CEFEPIME 1,000 MG in SYRINGE 0 ML IV SCH (13:22)
[2023-11-19 13:28] VITALS: PULSE 77
--- NOTE | 2023-11-20 14:00 | Discharge Summary ---
Discharge Summary Date of Service November 19, 2023 Principal Dx & Hospital Course #1 = Principal Diagnosis (1) Hypoglycemia: Plan 1. Hypoglycemia Metabolic encephalopathy Pt presented to ED with BSG of 42. He required D5 x 2 prior to admission to raise his blood glucose. May be due to underlying infection or adapting to newly started dialysis. Pt is currently afebrile, WBC is within normal range, lactate and procalcitonin were also in normal range. Chest x-ray and CT abdomen/pelvis did not show evidence of infectious sources. Blood cultures and wound obtained. still pending -SYmptoms have improved. Blood sugar appears to be better, tolerating diet. -Recommend resuming previous home regimen. Patient did not eat on day he was hypoglycemic. -resolved 2. Sacral Ulcer/ Pressure ulcer of sacral region, stage 2, POA Pt c/o central buttock pain. Found to have shallow ulcer at coccyx area. Wound culture taken. - Continue IV Vancomycin 2g BID - Started IV cefepime 1 g daily-renally dosed for hemodialysis-administer after dialysis on dialysis days to cover pseudomonas - Ordered low air loss mattress for pressure relief - Ordered PT/OT evaluations - Wound nurse consult -continue antibiotics, will transition to PO doxy for MRSA coverage, continue levofloxacin to complete 5 day course 3. Lower extremity wounds Multiple wounds at right lower leg with bandages. Most were shallow but weeping. - Change dressings at right LE as needed -will continue antibiotics and will complete 5 day course 4. ESRD on dialysis Pt underwent full session of dialysis today. Will be due for next session on 11/18/23. - Nephrology consult Chronic CAD -Continue atorvastatin 80 mg qd, metoprolol 25mg qd, asa 81 mg qd Depression -Continue sertraline 50mg qd Chronic pain -Continue tramadol 50mg qd PRN Insomnia -Continue trazodone 100mg qhs and zolpidem 5mg PRN GERD -Continue pantoprazole 40mg qd Glaucome Continue dorzolamide BID, latanoprost hs, timolol BID Admission HPI Per Admitting Provider Pt is a 73 yo male with PMedHx DM1, CVA, ESRD on dialysis, PVCs, hx of CABGx4, and left BKA who presented to ED feeling tired and unwell after dialysis on 11/16/23. Pt reports he did not eat breakfast prior to dialysis treatment at 800am. Upon arrival to ED his BSG was 42. Pt denies fever, chills, nausea, vomiting, abdominal pain, cough, congestion, chest pain, or SOB. He reports pain at his buttocks. Pt recently started HD approximately 2 months ago. Discharge Exam Constitutional WD/WN, vitals as above Respiratory normal respiratory effort; no cough Auscultation: lungs clear to auscultation bilaterally; no rhonchi and no wheezes Cardiovascular Rate/Rhythm: regular rate and regular rhythm (with frequent ectopy) Gastrointestinal (Abdomen) normal bowel sounds, soft, nontender, no hepatosplenomegaly Skin + ulcer (Sacral/coccyx region, anterior right tibial, right anterior foot, 5th toe) Psychiatric A+Ox3, euthymic affect Updated Medication List Medication Instructions Recorded Confirmed Type latanoprost 0.005 % eye drops 1 drp OPB HS 12/27/17 11/16/23 History (Xalatan) brimonidine 0.2 % eye drops 1 drp OPB BID 12/07/20 11/16/23 History dorzolamide 2 % eye drops 1 drp OPB BID 12/07/20 11/16/23 History timolol maleate 0.5 % eye gel 1 drp OPB BID 12/07/20 11/16/23 History forming solution calcitriol 0.5 mcg capsule 1 mcg (2 x 0.5 mcg) PO QAM #60 caps 09/17/23 11/16/23 Rx ascorbic acid (vitamin C) 500 mg 500 mg PO QAM #90 caps 11/06/23 11/16/23 Rx capsule cholecalciferol (vitamin D3) 50 2,000 unit PO QAM #90 caps 11/06/23 11/16/23 Rx mcg (2,000 unit) capsule (Vitamin D3) cyanocobalamin (vitamin B-12) 500 1,000 mcg (2 x 500 mcg) PO QAM 11/06/23 11/16/23 Rx mcg tablet #180 tabs trazodone 100 mg tablet 100 mg PO HS #90 tabs 11/06/23 11/16/23 Rx isosorbide mononitrate 30 mg 30 mg PO QAM 90 days #90 tabs 11/08/23 11/16/23 Rx tablet,extended release 24 hr aspirin 81 mg tablet,delayed 81 mg PO QAM #90 tabs 11/09/23 11/16/23 Rx release atorvastatin 80 mg tablet (Lipitor) 80 mg PO DAILY #90 tabs 11/09/23 11/16/23 Rx bumetanide 1 mg tablet 1 mg PO BID #180 tabs 11/09/23 11/16/23 Rx hydralazine 25 mg tablet 75 mg (3 x 25 mg) PO TID 90 days 11/09/23 11/16/23 Rx #810 tabs insulin regular human 100 unit/mL 1 sliding scale dose subcut 11/09/23 11/16/23 Rx injection solution (Humulin R USEASDIRECTD #10 mL Regular U-100 Insulin) ondansetron 4 mg disintegrating 4 mg PO Q8H PRN nausea and 11/09/23 11/16/23 Rx tablet vomiting #90 tabs ropinirole 1 mg tablet See Rx Instructions .Route 11/09/23 11/16/23 Rx .COMPLEX #450 tabs sertraline 50 mg tablet 50 mg PO DAILY #90 tabs 11/09/23 11/16/23 Rx insulin NPH isoph U-100 human 100 10 unit (0.1 mL) subcut BIDM #10 mL 11/10/23 11/16/23 Rx unit/mL subcutaneous suspension (Humulin N NPH U-100 Insulin (isophane susp)) metoprolol succinate 25 mg 25 mg PO BID #60 tabs 11/10/23 11/16/23 Rx tablet,extended release 24 hr pantoprazole 40 mg tablet,delayed 40 mg PO QAM #30 tabs 11/10/23 11/16/23 Rx release tramadol 50 mg tablet 50 mg PO DAILY PRN pain #30 tabs 11/10/23 11/16/23 Rx zolpidem 5 mg tablet 5 mg PO HS PRN insomnia #10 tabs 11/10/23 11/16/23 Rx docusate sodium 100 mg capsule 100 mg PO BID PRN Constipation 11/11/23 11/16/23 History polyethylene glycol 3350 17 gram 17 g PO BID PRN Constipation 11/11/23 11/16/23 History oral powder packet (Miralax) doxycycline monohydrate 100 mg 100 mg PO BID #5 tabs 11/18/23 Rx tablet levofloxacin 750 mg tablet 750 mg PO DAILY #1 tab 11/18/23 Rx Hospital Stay Data Consultations 11/16/23 18:31 ED Decision to Admit Stat 11/16/23 21:34 Consult Nephrology Routine Diagnostic Imagining Performed 11/16/23 16:30 CT abd pelvis IV con only Stat Pending Results Patient Have Any Pending Studies at Discharge: No Discharge Instructions Given to Patient (Per Discharging Provider) Continue antibiotics. Levofloxacin will be for only one dose and you will take it tomorrow at 1pm. (disregard bottle instructions) You will also be on doxycycline and start this evening Recommend followup with your PCP in 1-2 weeks. Total Time Total Time Spent Total Time Spent (In Minutes): 32 Coding Level of Care Code 73071 INP/OBS DISCH >30 MIN Diagnoses Hypoglycemia E16.2
== END 2023-11-19 15:08 | disposition home health service (06) | DRG 637 ==
LOC: ED 15:09 → SUATTDRO 19:44 → 2S 19:44

== ENCOUNTER 2023-11-26 10:15 | Inpatient (IN) ==
--- NOTE | 2023-11-26 10:24 | Emergency Department Note ---
Impression & Plan Weakness, AMS (altered mental status), Anemia, Thrombocytopenia, Elevated troponin ED Provider Note NAME: PATRICK HAAS AGE: 73 SEX: M : 1950 ARRIVES VIA: Ambulance INFORMANT: Patient ED PROVIDER(S): Wilfred Silva DO CHIEF COMPLAINT: Feeling weak HPI: Patient is a 73-year-old male who presents the ER with a past medical history of CAD, end-stage renal disease on dialysis, heart failure with preserved EF, diabetes, and CVA for weakness. Patient believes that he missed dialysis on Wednesday and he believes he recieved it on Wednesday and then missed again today. He notes he cannot get up and move as he feels so weak and rundown. Denies any headache or change in vision. No chest pain or shortness of breath. No dysuria, urgency, or frequency/makes urine infrequently. No other exacerbating or remitting factors. ADDITIONAL HISTORY OBTAINED: Per HPI Chronic Medical/Social Conditions Affecting Care: Per HPI PAST MEDICAL HISTORY:See Below PAST SURGICAL HISTORY:See Below FAMILY HISTORY:See Below SOCIAL HISTORY:See Below HOME MEDICATIONS:See Below ALLERGIES:See Below VITALS:See Below PHYSICAL EXAMINATION: GENERAL: Sitting up in bed, alert, ill-appearing, disheveled, sleepy EYE EXAM: normal conjunctiva. PERRL and EOM's grossly intact. OROPHARYNX: no exudate, no erythema, lips, buccal mucosa, and tongue normal and mucous membranes are moist NECK: supple, no nuchal rigidity, no adenopathy, non-tender CHEST: Port located over right chest wall LUNGS: Clear to auscultation. Normal chest wall mechanics HEART: no murmurs, S1 normal and S2 normal ABDOMEN: abdomen soft, non-tender, normo-active bowel sounds, no masses, no rebound or guarding. UPPER EXTREMITIES: upper extremities are grossly normal. LOWER EXTREMITIES: Left lower extremity with a BKA. Right lower extremity with erythema and scratch villafana NEURO EXAM: Normal sensorium, cranial nerves II-XII intact, normal speech, no weakness of arms, no weakness of legs. No drift. Finger to nose intact. Gross sensation intact. MEDICAL DECISION MAKING: Patient is a 73-year-old male who presents ER for the above-stated complaint. IV was established medicos obtained. Labs show no significant leukocytosis. Mild anemia 10.3. Thrombocytopenia at 88 consistent with previous. VBG with a pH of 7.29. BMP along with LFTs was unremarkable. Creatinine was elevated as expected in dialysis patient. Troponin mildly elevated and again I favor this secondary to end-stage renal disease on dialysis. Pro-Billy was negative. Patient was covered with cefepime with recent admission for cellulitis. He has no other complaints at this time. Chest x-ray was unremarkable. Discussed with the hospitalist for further evaluation management treatment. No trauma. Consults/Care Managements Discussions: Per [facility] Triage Nursing notes reviewed. Limited review of prior medical records performed Vital Signs: reviewed and remarkable for no significant abnormalities Differential diagnosis: Differential diagnoses includes but is not limited to toxic, metabolic, infectious, traumatic, cardiac, neurologic, hematologic, psychiatric and inflammatory etiologies. ER treatment provided: See below Diagnostics interpreted by me include EKG and cardiac monitoring as listed below: -Cardiac Monitoring: An order was placed for continuous cardiac monitoring. The monitor shows a rate of 54 with sinus rhythm. -ECG: Sinus bradycardia rate of 54 with PVCs Normal axis Right bundle branch block T wave inversions in the septal leads QTc 512 No significant change from previous -Laboratory studies:Interpreted by me as stated above in MDM and shown below. Imaging studies: Xrays: As interpreted by me: Portable AP upright 1 view of the chest shows no focal infiltrate CTs show: none Procedures:none Critical Care: None Past Med/Surg History Problem List (Updated 11/26/23 @ 14:45 by Wilfred Silva DO) Elevated troponin (Acute) Thrombocytopenia (Acute) Anemia (Acute) AMS (altered mental status) (Acute) Weakness (Acute) Hypokalemia (Acute) Anemia (Acute) Hypoglycemia (Acute) AMS (altered mental status) (Acute) Sacral ulcer Hypoglycemia associated with diabetes Frequent PVCs Wound of lower extremity (Acute) Hx of left BKA CAD, multiple vessel s/p CABG x4 (2011) ESRD on dialysis COVID-19 (Acute) Ventricular bigeminy (HFpEF) heart failure with preserved ejection fraction ESRD (end stage renal disease) Hyperkalemia (Acute) Anemia of chronic disease SOB (shortness of breath) (Acute) Cellulitis (Acute) Hypoxia (Acute) Right leg swelling Diabetes, type I Constipation Hypokalemia Generalized weakness Cellulitis of right lower extremity Nausea Abrasion of multiple sites of right lower extremity Hypoxia (Acute) Chronic seborrheic dermatitis Status post below knee amputation of left lower extremity Generalized pruritus Grief History of colon polyps Impotence, organic Vitamin D deficiency Tubular adenoma of colon History of CVA (cerebrovascular accident) PT DENIES Glaucoma Peripheral positional vertigo Keloid scar of skin (Acute) Lower extremity edema (Chronic) Insomnia Nephrotic syndrome Diverticulosis hx Dyslipidemia Mild obstructive sleep apnea "Mild" > no device 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 DDD (degenerative disc disease), lumbar Medical History Chronic combined systolic and diastolic heart failure Depression Chronic kidney disease, stage 4 (severe) Diabetic peripheral 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 Restless leg syndrome Type 2 diabetes mellitus Ventricular bigeminy 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, with long-term current use of insulin (HFpEF) heart failure with preserved ejection fraction Pressure ulcer of BKA stump, stage 3 RESOLVED Influenza A virus subtype H1 2008 pandemic strain present Slow to wake up after anesthesia Wound of lower extremity RLE wound "improved" per 01/27/21 wound clinic visit ([facility]); surgeon aware of patient's wound hx per 01/2021 office visit note; "only has a little scab there now, keeps it covered to protect it." GERD (gastroesophageal reflux disease) History of TIA (transient ischemic attack) ~2009>over his left eye, no residual symptoms Surgical History S/P arteriovenous (AV) fistula creation left>no currently having dialysis History of esophagogastroduodenoscopy (EGD) History of colonoscopy S/P lumbar laminectomy S/P foot surgery S/P eye surgery B/L x3 (for glaucoma) S/P CABG x 4 (2011) CABG x4 (2011), [facility]; f/u PCP History of lumbar discectomy History of tonsillectomy Family History Father , age 78 with prostate cancer Colorectal cancer Cardiovascular disease Diabetes Prostate cancer Grandmother (Maternal) Diabetes Mother , age 54 of throat cancer Throat cancer Denies family history of Ovarian cancer Myocardial infarction Breast cancer Social History Smoking Status: Never smoker Second Hand Exposure: No; Do You Dip or Chew Tobacco: No; Hx Alcohol Use: No Hx Substance Use: No Preferred Language: Welsh Communication Ability: Effective Visual Impairment: No Limitations Hearing Ability: Normal 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 Feels Safe at Home: Yes Childhood Exposure to Second-Hand Smoke: No Diet: regular caffeine: No during the past year weight has: remained stable Dental Care, Regularly: Yes Physical Activity Frequency: Other Physical Activity Frequency Comment: limited d/t disability Seatbelt Use: always Sunscreen Use: Yes Assistive Devices: Prosthesis, Walker and Wheelchair Allergies Allergies Allergy/AdvReac Type Severity Reaction Status Date / Time ofloxacin [From Floxin] Allergy Intermediate itching Verified 11/23/23 15:01 Quinolones Allergy Intermediate Itchiness Verified 11/23/23 15:01 sulfamethoxazole Allergy Intermediate Rash Verified 11/23/23 15:01 trimethoprim Allergy Intermediate Rash Verified 11/23/23 15:01 Home Meds Home Medications Medication Instructions Recorded Confirmed latanoprost 0.005 % eye drops 1 drp OPB HS 12/27/17 11/26/23 (Xalatan) brimonidine 0.2 % eye drops 1 drp OPB BID 12/07/20 11/26/23 dorzolamide 2 % eye drops 1 drp OPB BID 12/07/20 11/26/23 timolol maleate 0.5 % eye gel 1 drp OPB BID 12/07/20 11/26/23 forming solution docusate sodium 100 mg capsule 100 mg PO BID PRN Constipation 11/11/23 11/26/23 polyethylene glycol 3350 17 gram 17 g PO BID PRN Constipation 11/11/23 11/26/23 oral powder packet (Miralax) ropinirole 1 mg tablet 1 mg PO UD 11/26/23 11/26/23 Previous Rx's Medication Instructions Recorded calcitriol 0.5 mcg capsule 1 mcg (2 x 0.5 mcg) PO QAM #60 caps 09/17/23 ascorbic acid (vitamin C) 500 mg 500 mg PO QAM #90 caps 11/06/23 capsule cholecalciferol (vitamin D3) 50 2,000 unit PO QAM #90 caps 11/06/23 mcg (2,000 unit) capsule (Vitamin D3) cyanocobalamin (vitamin B-12) 500 1,000 mcg (2 x 500 mcg) PO QAM 11/06/23 mcg tablet #180 tabs trazodone 100 mg tablet 100 mg PO HS #90 tabs 11/06/23 isosorbide mononitrate 30 mg 30 mg PO QAM 90 days #90 tabs 11/08/23 tablet,extended release 24 hr aspirin 81 mg tablet,delayed 81 mg PO QAM #90 tabs 11/09/23 release atorvastatin 80 mg tablet (Lipitor) 80 mg PO DAILY #90 tabs 11/09/23 bumetanide 1 mg tablet 1 mg PO BID #180 tabs 11/09/23 hydralazine 25 mg tablet 75 mg (3 x 25 mg) PO TID 90 days 11/09/23 #810 tabs insulin regular human 100 unit/mL 1 sliding scale dose subcut 11/09/23 injection solution (Humulin R USEASDIRECTD #10 mL Regular U-100 Insulin) ondansetron 4 mg disintegrating 4 mg PO Q8H PRN nausea and 11/09/23 tablet vomiting #90 tabs sertraline 50 mg tablet 50 mg PO DAILY #90 tabs 11/09/23 insulin NPH isoph U-100 human 100 10 unit (0.1 mL) subcut BIDM #10 mL 11/10/23 unit/mL subcutaneous suspension (Humulin N NPH U-100 Insulin (isophane susp)) metoprolol succinate 25 mg 25 mg PO BID #60 tabs 11/10/23 tablet,extended release 24 hr pantoprazole 40 mg tablet,delayed 40 mg PO QAM #30 tabs 11/10/23 release tramadol 50 mg tablet 50 mg PO DAILY PRN pain #30 tabs 11/10/23 zolpidem 5 mg tablet 5 mg PO HS PRN insomnia #10 tabs 11/10/23 Results & Data (ED) Vital Signs Vital Signs - 24 hr 11/26/23 10:24 11/26/23 10:24 11/26/23 10:45 Temperature 36.8 C Temperature Source Skin Pulse Rate 50 L Pulse Rate from SpO2 Sensor Respiratory Rate 18 Respiratory Effort / Characteristics Non-Labored Respiratory Depth Normal Blood Pressure 113/69 138/75 Blood Pressure Mean 83 108 Pulse Oximetry 95 94 Oxygen Delivery Method Room Air Room Air Oxygen Flow Rate Sepsis Recent Fever Within 48 Hours No Sepsis New/Unexplained Change in Mental Status No Sepsis Action Taken by Nursing No Action Required Oxygen Flow Rate - Titration Pulse Oximetry Post Tiitration 11/26/23 10:45 11/26/23 10:46 11/26/23 11:01 Temperature Temperature Source Pulse Rate 49 L Pulse Rate from SpO2 Sensor 50 L Respiratory Rate 21 Respiratory Effort / Characteristics Respiratory Depth Blood Pressure 115/64 Blood Pressure Mean 84 Pulse Oximetry 97 90 Oxygen Delivery Method Nasal Cannula Room Air Oxygen Flow Rate 2 Sepsis Recent Fever Within 48 Hours Sepsis New/Unexplained Change in Mental Status Sepsis Action Taken by Nursing Oxygen Flow Rate - Titration 2 Pulse Oximetry Post Tiitration 95 11/26/23 11:14 11/26/23 11:15 11/26/23 11:16 Temperature Temperature Source Pulse Rate 49 L 46 L Pulse Rate from SpO2 Sensor Respiratory Rate 18 Respiratory Effort / Characteristics Respiratory Depth Blood Pressure 138/63 138/63 Blood Pressure Mean 88 88 Pulse Oximetry 98 Oxygen Delivery Method Nasal Cannula Oxygen Flow Rate 2 Sepsis Recent Fever Within 48 Hours Sepsis New/Unexplained Change in Mental Status Sepsis Action Taken by Nursing Oxygen Flow Rate - Titration Pulse Oximetry Post Tiitration 11/26/23 11:36 Temperature Temperature Source Pulse Rate 46 L Pulse Rate from SpO2 Sensor Respiratory Rate 16 Respiratory Effort / Characteristics Respiratory Depth Blood Pressure Blood Pressure Mean Pulse Oximetry 96 Oxygen Delivery Method Nasal Cannula Oxygen Flow Rate 2 Sepsis Recent Fever Within 48 Hours Sepsis New/Unexplained Change in Mental Status Sepsis Action Taken by Nursing Oxygen Flow Rate - Titration Pulse Oximetry Post Tiitration Laboratory Data 11/26/23 10:23 11/26/23 10:23 Lab Results 11/26/23 11/26/23 11/26/23 Range/Units 10:23 10:27 10:29 WBC 7.09 (4.8-10.8) K/ul RBC 3.30 L (4.70-6.10) M/uL Hgb 10.3 L (14.0-18.0) g/dl POC Hgb 10.5 L (14.0-18.0) g/dl Hct 32.2 L (42.0-52.0) % POC Hct 31 L (42-52) % MCV 97.6 (80.0-100.0) fL MCH 31.2 (25.0-34.0) pg MCHC 32.0 (32.0-36.0) g/dL RDW Std Deviation 61.1 H (36.4-46.3) fL RDW Coeff of Jose 17.9 H (11.5-14.5) % Plt Count 88 L (130-400) K/uL MPV 13.3 H (9.4-12.4) fL Immature Gran % (Auto) 0.6 % Neut % (Auto) 88.6 % Lymph % (Auto) 3.2 % [place] % (Auto) 6.9 % Eos % (Auto) 0.1 % Baso % (Auto) 0.6 % Neut # (Auto) 6.28 (1.40-6.50) K/uL Lymph # (Auto) 0.23 L (1.20-3.40) K/uL [place] # (Auto) 0.49 (0.11-0.59) K/uL Eos # (Auto) 0.01 (0.00-0.50) K/uL Baso # (Auto) 0.04 (0.00-0.20) K/uL Immature Gran # (Auto) 0.04 (0.01-0.20) K/uL VBG pH 7.29 L (7.36-7.41) VBG pCO2 48 (38-50) mmHg VBG pO2 45 mmHg VBG HCO3 23 mmol/L VBG O2 Saturation 70.9 % VBG Base Excess -3.8 mEq/L POC Sodium 138 (135-144) mmol/L Sodium 139 (136-145) mmol/L POC Potassium 4.6 (3.3-5.0) mmol/L Potassium 4.6 (3.5-5.1) mmol/L POC Chloride 105 (101-112) mmol/L Chloride 104 (98-107) mmol/L Carbon Dioxide 24 (21-32) mmol/L POC Total CO2 23 L (24-31) mmol/L Anion Gap 11 (3-11) POC Anion Gap 17.0 (16-25) mmol/L POC BUN 56 H (7-18) mg/dl BUN 62 H (6-23) mg/dl Creatinine 5.46 H* (0.6-1.4) mg/dl POC Creatinine 6.0 H* (0.6-1.3) mg/dl Est Cr Clr Drug Dosing 14.3 ml/min Est GFR ( Amer) 10.9 ml/min Est GFR (Non-Af Amer) 9.4 ml/min BUN/Creatinine Ratio 11.4 (10-20) Glucose 90 (70-99(Fasting)) mg/dl POC Glucose (other) 84 (70-99) mg/dl Lactate 1.5 (0.4-2.0) mmol/L Calcium 9.0 (8.6-10.3) mg/dl POC Ioniz Calcium Luzma 1.20 (1.12-1.32) mmol/l Total Bilirubin 0.6 (0.2-1.0) mg/dl AST 20 (13-39) U/L ALT 26 (7-52) U/L Alkaline Phosphatase 110 H (34-104) U/L Troponin I High Sens 35.3 H (0-20) pg/ml Total Protein 6.4 (6.0-8.3) gm/dl Albumin 3.9 (3.4-5.0) gm/dl Globulin 2.5 (2.5-4.0) gm/dl Albumin/Globulin Ratio 1.6 (0.9-2) Lipase 46 (11-82) U/L Procalcitonin 0.25 (0-0.5) ng/ml Administered Medications Discontinued Medications Cefepime HCl (Maxipime) 2,000 mg in 20 mls @ 5 mls/min IV NOW STA; Protocol Stop: 11/26/23 10:32 Last Admin: 11/26/23 10:40 Dose: 5 mls/min Documented By: [facility] Imaging Data Radiologist's Impression: Chest X-Ray 11/26/23 10:24 XR chest 1V portable CLINICAL HISTORY: Shortness of breath. COMPARISON STUDY: Chest CT October 15, 2014. Chest radiograph November 16, 2023. FINDINGS: There is no pneumothorax. Small left and trace right pleural effusions are unchanged. Right basilar opacity has slightly increased. There is persistent left basilar opacity. Pulmonary edema has slightly progressed. Cardiomegaly is again noted. There is a dual lumen right internal jugular central venous catheter and median sternotomy wires. IMPRESSION: 1. Cardiomegaly. Slight increase in pulmonary edema. 2. Small left and trace right pleural effusions. Bibasilar opacities which could reflect atelectasis or superimposed pneumonia. ACT 112: Negative or not required by law. Electronically signed by: Camilo Block M.D. 11/26/2023 10:48 AM Discharge Plan Visit Data Chief Complaint: Lethargic ED Provider: Wilfred Silva Discharge Problem: Weakness, AMS (altered mental status), Anemia, Thrombocytopenia, Elevated troponin Discharge Problem: AMS (altered mental status) Qualifiers: Altered mental status type: unspecified Qualified Code(s): R41.82 - Altered mental status, unspecified
[2023-11-26 10:40] LABS: Basophils # (auto) 0.04 K/uL (0.00-0.20); Basophils % (auto) 0.6 %; Eosinophils # (auto) 0.01 K/uL (0.00-0.50); Eosinophils % (auto) 0.1 %; Hematocrit (blood only) 32.2 % (42.0-52.0); Hemoglobin 10.3 g/dl (14.0-18.0); Immature Granulocytes # (auto) 0.04 K/uL (0.01-0.20); Immature Granulocytes % (auto) 0.6 %; Lymphocytes # (auto) 0.23 K/uL (1.20-3.40); Lymphocytes % (auto) 3.2 %; Mean Corpuscular Hemoglobin 31.2 pg (25.0-34.0); Mean Corpuscular Volume 97.6 fL (80.0-100.0); Mean Platelet Volume 13.3 fL (9.4-12.4); Monocytes # (auto) 0.49 K/uL (0.11-0.59); Monocytes % (auto) 6.9 %; Neutrophils # (auto) 6.28 K/uL (1.40-6.50); Neutrophils % (auto) 88.6 %; Platelet Count 88 K/uL (130-400); RDW Coefficient of Variation 17.9 % (11.5-14.5); RDW Standard Deviation 61.1 fL (36.4-46.3); White Blood Count 7.09 K/ul (4.8-10.8)
[2023-11-26] MEDS: CEFEPIME 2,000 MG/20 ML VIAL IV STA (10:40)
[2023-11-26 10:43] LABS: iSTAT Hemoglobin 10.5 g/dl (14.0-18.0); iSTAT Ionized Calcium 1.2 mmol/l (1.12-1.32); iSTAT Potassium 4.6 mmol/L (3.3-5.0)
--- NOTE | 2023-11-26 10:50 | XRay Report ---
XR chest 1V portable CLINICAL HISTORY: Shortness of breath. COMPARISON STUDY: Chest CT October 15, 2014. Chest radiograph November 16, 2023. FINDINGS: There is no pneumothorax. Small left and trace right pleural effusions are unchanged. Right basilar opacity has slightly increased. There is persistent left basilar opacity. Pulmonary edema vázquez s slightly progressed. Cardiomegaly is again noted. There is a dual lumen right internal jugular cent ral venous catheter and median sternotomy wires. IMPRESSION: 1. Cardiomegaly. Slight increase in pulmonary edema. 2. Small left and trace right pleural effusions. Bibasilar opacities which could reflect atelectasis or superimposed pneumonia. ACT 112: Negative or not required by law. Electronically signed by: Camilo Block M.D. 11/26/2023 10:48 AM
[2023-11-26 10:52] LABS: Base Excess VBG -3.8 mEq/L; HCO3 VBG 23 mmol/L; Oxygen Saturation VBG 70.9 %; PCO2 VBG 48 mmHg (38-50); PO2 VBG 45 mmHg; pH VBG 7.29 (7.36-7.41)
[2023-11-26 11:04] LABS: Albumin Globulin Ratio 1.6 (0.9-2); Albumin Level 3.9 gm/dl (3.4-5.0); BUN Creatinine Ratio 11.4 (10-20); Bilirubin,Total 0.6 mg/dl (0.2-1.0); Creatinine Clr Calc Pharmacy 14.3 ml/min; Est GFR (African American) 10.9 ml/min; Est GFR (Non-African American) 9.4 ml/min; Globulin 2.5 gm/dl (2.5-4.0); Potassium 4.6 mmol/L (3.5-5.1); Total Protein 6.4 gm/dl (6.0-8.3)
[2023-11-26 11:06] LABS: Troponin I High Sensitivity 35.3 pg/ml (0-20)
[2023-11-26] MEDS ORDERED: GLUCOSE 10 TAB/TUBE PO PRN (11:49)
[2023-11-26] MEDS ORDERED: CARBOHYDRATES FOR HYPOGLYCEMIA PO PRN (11:49)
[2023-11-26] MEDS ORDERED: GLUCAGON FOR INJ 1 MG VIAL SQ PRN (11:49)
[2023-11-26] MEDS ORDERED: DEXTROSE 50% 50 ML SYRINGE IV PRN (11:49)
[2023-11-26] MEDS ORDERED: GLUCOSE 40% GEL 15 GM TUBE PO PRN (11:49)
--- NOTE | 2023-11-26 11:49 | History & Physical Report ---
Date of Service November 26, 2023 Assessment & Plan (1) AMS (altered mental status): Plan: AMS due to metabolic encephalopathy Improved at admit assessment. A&Ox3. More fatigued than normal - ?2/2 hypoxia with volume overload, + Patient reportedly hypoglycemic prior to arrival. Is improved in ER although still significantly off of his normal baseline. [id number] (2) Weakness: (3) ESRD (end stage renal disease): Plan: ESRD on dialysis Nephrology consulted for dialysis due to evidence of volume overload with pulmonary edema, and prior missed sessions Potassium is normal (4) Type 2 diabetes mellitus: Plan: DM consult in due to history of recurrent episode of hypoglycemia, and reported prehospital hypoglycemia improved by time of arrival BSG daily Goal BSG [id number] Checks AC/at bedtime, DM 2 dialysis diet (5) Thrombocytopathia: Plan: Thrombocytopenia - Since 09/2023. - Remain s >50. On aspirin for TIA and hx CAD. Heparin[?] w HD - Pharmacoppx held, trended. +smear. +SCDs (6) Atypical pneumonia: Plan: Initially concern for potential for atelectasis versus possible superimposed on chest x-ray. No leukocytosis, no fever/chills/sweats. History of prolonged QT. Doxy added, procalcitonin ordered. If negative and patient improves to baseline rapidly with dialysis then discontinue antibiotics. (7) Cardiomyopathy: Plan: CAD With chronically mildly elevated troponin, also with impaired clearance Troponin x 1 trended Troponin 35.3, history of CAD with low-grade troponin leak Prior history of bradycardia EKG on admission sinus with first-degree AV block, bigeminy. Appears similar compared to 11/06/2023 Clinically volume overloaded. --> dialysis today. Stable issues Depression: Continue home SSRI Chronic pain: Tramadol as needed, temporarily held for lethargy Insomnia: Continue trazodone/home Ambien as needed when mentation improved. These were temporarily held for lethargy GERD: Continue PPI Glaucoma: Continue home meds DVT prophylaxis: SCDs, heparin deferred while following thrombocytopenia CODE STATUS: Full code Diet: Dialysis, DM History of Present Illness Primary Care Provider: DO Dayton Oneill is a 73-year-old male past med history of ESRDHDD, HFpEF, DM2, CVA, sacral ulcer who presents to the ER with acute on chronic weakness and fatigue. Assessment denies dyspnea UTI symptoms, chest pain. Per ER signout/review: He presents with progressive dyspnea, fatigue, lethargy. Chest x-ray: Cardiomegaly, increased pulmonary edema with bilateral pleural effusions. Bibasilar opacities suspicious for atelectasis versus superimposed pneumonia No leukocytosis Procalcitonin pending VBG 7.29/48/23 consistent with mixed metabolic/respiratory acidosis Creatinine is elevated, patient is ESRD dialysis dependent. BUN 62 Anion gap borderline at 11 Lactate is not elevated, 1.5 High sensitive troponin with chronic mild elevation and impaired clearance, 35.3 on admission Normotensive, bradycardic, on 2 L of oxygen at time of admission consultation Fluids deferred due to obvious volume overload missed dialysis Per Pt: Seen at the bedside. Hard to fall asleep, and then very tired in the morning. Cannot sleep laying flat due to dyspnea, sleeps sitting up Denies fevers Denies chest pain 'Just no energy.' Denies cough Did not take insulin this morning Has been eatin gnormally, no lucero ein diet No diarrhea or constipation Reports hemissed a dialysis session on Wednesday, but made his Wednesday session. Reports 'I feel real good, a lot better after dialysis.' Was schedule for HD today Still makes a small amount of urine. Denies dysuria, hematuria, polyuria Takes tramadol for pain, didnt take any other pain meds Took no medications this morning Feels strength is gradually worsneing this week Medical History: Reviewed Medications: Reviewed Surgical History: Reviewed Family history: Reviewed Allergies: Reviewed Social History: REviewed Code Status: Full Allergies Allergy/AdvReac Type Severity Reaction Status Date / Time ofloxacin [From Floxin] Allergy Intermediate itching Verified 11/23/23 15:01 Quinolones Allergy Intermediate Itchiness Verified 11/23/23 15:01 sulfamethoxazole Allergy Intermediate Rash Verified 11/23/23 15:01 trimethoprim Allergy Intermediate Rash Verified 11/23/23 15:01 Home Medications Medication Instructions Recorded Confirmed Type latanoprost 0.005 % eye drops 1 drp OPB HS 12/27/17 11/26/23 History (Xalatan) brimonidine 0.2 % eye drops 1 drp OPB BID 12/07/20 11/26/23 History dorzolamide 2 % eye drops 1 drp OPB BID 12/07/20 11/26/23 History timolol maleate 0.5 % eye gel 1 drp OPB BID 12/07/20 11/26/23 History forming solution calcitriol 0.5 mcg capsule 1 mcg (2 x 0.5 mcg) PO QAM #60 caps 09/17/23 11/26/23 Rx ascorbic acid (vitamin C) 500 mg 500 mg PO QAM #90 caps 11/06/23 11/26/23 Rx capsule cholecalciferol (vitamin D3) 50 2,000 unit PO QAM #90 caps 11/06/23 11/26/23 Rx mcg (2,000 unit) capsule (Vitamin D3) cyanocobalamin (vitamin B-12) 500 1,000 mcg (2 x 500 mcg) PO QAM 11/06/23 11/26/23 Rx mcg tablet #180 tabs trazodone 100 mg tablet 100 mg PO HS #90 tabs 11/06/23 11/26/23 Rx isosorbide mononitrate 30 mg 30 mg PO QAM 90 days #90 tabs 11/08/23 11/26/23 Rx tablet,extended release 24 hr aspirin 81 mg tablet,delayed 81 mg PO QAM #90 tabs 11/09/23 11/26/23 Rx release atorvastatin 80 mg tablet (Lipitor) 80 mg PO DAILY #90 tabs 11/09/23 11/26/23 Rx bumetanide 1 mg tablet 1 mg PO BID #180 tabs 11/09/23 11/26/23 Rx hydralazine 25 mg tablet 75 mg (3 x 25 mg) PO TID 90 days 11/09/23 11/26/23 Rx #810 tabs insulin regular human 100 unit/mL 1 sliding scale dose subcut 11/09/23 11/26/23 Rx injection solution (Humulin R USEASDIRECTD #10 mL Regular U-100 Insulin) ondansetron 4 mg disintegrating 4 mg PO Q8H PRN nausea and 11/09/23 11/26/23 Rx tablet vomiting #90 tabs sertraline 50 mg tablet 50 mg PO DAILY #90 tabs 11/09/23 11/26/23 Rx insulin NPH isoph U-100 human 100 10 unit (0.1 mL) subcut BIDM #10 mL 11/10/23 11/26/23 Rx unit/mL subcutaneous suspension (Humulin N NPH U-100 Insulin (isophane susp)) metoprolol succinate 25 mg 25 mg PO BID #60 tabs 11/10/23 11/26/23 Rx tablet,extended release 24 hr pantoprazole 40 mg tablet,delayed 40 mg PO QAM #30 tabs 11/10/23 11/26/23 Rx release tramadol 50 mg tablet 50 mg PO DAILY PRN pain #30 tabs 11/10/23 11/26/23 Rx zolpidem 5 mg tablet 5 mg PO HS PRN insomnia #10 tabs 11/10/23 11/26/23 Rx docusate sodium 100 mg capsule 100 mg PO BID PRN Constipation 11/11/23 11/26/23 History polyethylene glycol 3350 17 gram 17 g PO BID PRN Constipation 11/11/23 11/26/23 History oral powder packet (Miralax) ropinirole 1 mg tablet 1 mg PO UD 11/26/23 11/26/23 History Past Med/Surg History Problem List (Updated 11/26/23 @ 16:45 by Keron Caputo MD) Atypical pneumonia Thrombocytopathia Elevated troponin (Acute) Thrombocytopenia (Acute) Anemia (Acute) AMS (altered mental status) (Acute) Weakness (Acute) Hypokalemia (Acute) Anemia (Acute) Hypoglycemia (Acute) AMS (altered mental status) (Acute) Sacral ulcer Hypoglycemia associated with diabetes Frequent PVCs Wound of lower extremity (Acute) Hx of left BKA CAD, multiple vessel s/p CABG x4 (2011) ESRD on dialysis COVID-19 (Acute) Ventricular bigeminy (HFpEF) heart failure with preserved ejection fraction ESRD (end stage renal disease) Hyperkalemia (Acute) Anemia of chronic disease SOB (shortness of breath) (Acute) Cellulitis (Acute) Hypoxia (Acute) Right leg swelling Diabetes, type I Constipation Hypokalemia Generalized weakness Cellulitis of right lower extremity Nausea Abrasion of multiple sites of right lower extremity Hypoxia (Acute) Chronic seborrheic dermatitis Status post below knee amputation of left lower extremity Generalized pruritus Grief History of colon polyps Impotence, organic Vitamin D deficiency Tubular adenoma of colon History of CVA (cerebrovascular accident) PT DENIES Glaucoma Peripheral positional vertigo Keloid scar of skin (Acute) Lower extremity edema (Chronic) Insomnia Nephrotic syndrome Diverticulosis hx Dyslipidemia Mild obstructive sleep apnea "Mild" > no device 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 DDD (degenerative disc disease), lumbar Medical History Chronic combined systolic and diastolic heart failure Depression Chronic kidney disease, stage 4 (severe) Diabetic peripheral 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 Restless leg syndrome Type 2 diabetes mellitus Ventricular bigeminy 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, with long-term current use of insulin (HFpEF) heart failure with preserved ejection fraction Pressure ulcer of BKA stump, stage 3 RESOLVED Influenza A virus subtype H1 2009 pandemic strain present Slow to wake up after anesthesia Wound of lower extremity RLE wound "improved" per 01/27/21 wound clinic visit ([facility]); surgeon aware of patient's wound hx per 01/2021 office visit note; "only has a little scab there now, keeps it covered to protect it." GERD (gastroesophageal reflux disease) History of TIA (transient ischemic attack) ~2009>over his left eye, no residual symptoms Surgical History S/P arteriovenous (AV) fistula creation left>no currently having dialysis History of esophagogastroduodenoscopy (EGD) History of colonoscopy S/P lumbar laminectomy S/P foot surgery S/P eye surgery B/L x3 (for glaucoma) S/P CABG x 4 (2011) CABG x4 (2011), [facility]; f/u PCP History of lumbar discectomy History of tonsillectomy Family History Father , age 78 with prostate cancer Colorectal cancer Cardiovascular disease Diabetes Prostate cancer Grandmother (Maternal) Diabetes Mother , age 54 of throat cancer Throat cancer Denies family history of Ovarian cancer Myocardial infarction Breast cancer Social History Smoking Status: Never smoker Second Hand Exposure: No; Do You Dip or Chew Tobacco: No; Hx Alcohol Use: No Hx Substance Use: No Preferred Language: [place] Citizen Communication Ability: Effective Visual Impairment: No Limitations Hearing Ability: Normal Machine Sign Writer Required: No Beliefs That Will Affect Care: None marital status: / marital status details: lost August 2021 Current Living Situation: Alone current occupational status: retired current occupation: How many Children do You have: 2 other: Retired age 63-1/2. Feels Safe at Home: Yes Childhood Exposure to Second-Hand Smoke: No Diet: regular caffeine: No during the past year weight has: remained stable Dental Care, Regularly: Yes Physical Activity Frequency: Other Physical Activity Frequency Comment: limited d/t disability Seatbelt Use: always Sunscreen Use: Yes Assistive Devices: Glasses, Prosthesis, Walker and Wheelchair Physical Exam 2 Physical Exam: General: A&Ox3. NAD. Cooperative. HEENT: Atraumatic, normocephalic. Pulm: CTAB A&P. -wheezes, -rales, -rhonchi. Symmetrical chest rise. No increase in work of breathing. No respiratory distress. Cardiac: RRR, -mrg. Radial pulses intact and symmetrical. Abdominal: Nontender, nondistended, soft. BS present. Skin/extremities: Bilateral lower extremity edema is present. Left AV fistula in place. Right tunneled catheter in place. S/p left BKA. Sacral ulcer present, see photo below Results & Data Results & Data Vital Signs (Past 12 Hours) Vital Signs Temp Pulse Resp BP Pulse Ox O2 Del Method O2 Flow Rate 11/26/23 11:15 46 L 18 138/63 98 Nasal Cannula 2 11/26/23 11:14 49 L 11/26/23 11:01 115/64 11/26/23 10:46 90 Room Air 11/26/23 10:45 49 L 21 97 Nasal Cannula 2 11/26/23 10:45 138/75 11/26/23 10:24 94 Room Air 11/26/23 10:24 36.8 C 50 L 18 113/69 95 Room Air PG Care Time/CCT Total # of Minutes Spent Total Time Spent with Patient: Total time spent is greater than 50% in coordination of care (as documented) at patient's floor/unit and/or counseling patient: Coding Level of Care Code 57164 INT INP/OBS CARE 3/75MIN Diagnoses AMS (altered mental status) R41.82 Altered mental status type: unspecified Weakness R53.1 ESRD (end stage renal disease) N18.6 Type 2 diabetes mellitus E11.9 Thrombocytopathia D69.1 Atypical pneumonia J18.9 Cardiomyopathy, unspecified type I42.9 Cardiomyopathy type: unspecified (1) AMS (altered mental status) Altered mental status type: unspecified Qualified Code(s): R41.82 - Altered mental status, unspecified (7) Cardiomyopathy Cardiomyopathy type: unspecified Qualified Code(s): I42.9 - Cardiomyopathy, unspecified
[2023-11-26] MEDS ORDERED: PHARMACY GLYCEMIC MGMT CONSULT PRN (12:13)
--- NOTE | 2023-11-26 14:14 | Pharmacy Report ---
Pharmacy Glycemic Short Note 2 - Date of Service November 26, 2023 - Glycemic Short BSG Results (Last 24 hours): 11/26/23 11/26/23 10:23 10:29 Glucose 90 POC Glucose (other) 84 OUTPATIENT ANTIDIABETIC REGIMEN: * NPH 10 units SC BID * Regular insulin sliding scale at 11am daily ASSESSMENT: * 73 YO M, PMH ESRDHDD, HFpEF, Type 1 DM, CVA, sacral ulcer who presents to the ER with acute on chronic weakness and fatigue. Fluid overload, questionable pneumonia. * Labs acceptable at this time, no anion gap, patient with hypoglycemic episodes on past admissions, difficult to manage, did not take insulin at home this morning. * Will use Lantus for patient tonight if blood glucose rises, as patient is NPO at this time. Further basal dosing for type 1 in AM. PLAN FOR INPATIENT GLYCEMIC CONTROL: * Basal insulin * Lantus 0-6 units SQ HS - 6 units for BSG > 180 * further dosing in the morning * Bolus insulin * NovoLog per scale ACHS or Q6hrs while NPO * Goal Range: Low 120 mg/dL - High 150 mg/dL * Correction Factor: 35 mg/dL/unit * Nutritional / Prandial insulin per carb ratio of 1 unit per 12 grams CHO consumed
--- NOTE | 2023-11-26 14:54 | Nephrology Consultation ---
Date of Consultation November 26, 2023 Assessment & Plan (1) ESRD (end stage renal disease): (2) Anemia of chronic disease: (3) Generalized weakness: (4) Anemia: (5) Wound of lower extremity: Plan 73 y o m with ESKD secondary to diabetic nephropathy, started on hemodialysis i n September 2023 via AV fistula. Currently on hemodialysis Wednesday, , Wednesday at [facility]. Admitted to the hospital with generalized weakness, difficulty ambulation and missed dialysis today On admission blood pressure high and noted to be volume overloaded with missed dialysis. Electrolyte acceptable. --Hemodialysis now as regular schedule and overall volume overload. Aim for 4 L UF as tolerated. --Decrease Requip dose to 1 mg in the morning and 1 mg at bedtime as he is also taking trazodone, sertraline and Ambien. Sleep hygiene would be important to help her better sleep as he is already on multiple medications to help with sleep but still having difficulty. --avoid NSAIDs, avoid volume depletion --Epogen 20,000 units x 1 dose --Nephrocaps daily --Check phosphorus with next lab and if elevated, start on phosphate binder --Avoid IV fluid, dose medications for EGFR less than 10 --left arm nephrology precaution, he is agreeable to try to use the fistula with next dialysis. Explained that with his history of chronic lower extremity ulcer and cellulitis, he has very high risk for bacteremia with catheter. Thank you for allowing me to participate in your patient's care. It was a pleasure to see Dayton. History of Present Illness Reason for Consultation: ESKD, volume overload. Attending Physician: Keron Caputo MD History of Present Illness Mr. Dayton Em is a 73 year old male with PMH significant for ESKD on HD, DM, Cardiomyopathy, CAD s/p CABG x 4 admitted to the hospital with generalized weakness, difficulty ambulation and missed dialysis today. Nephrology consult was requested for management of hemodialysis while inpatient. Dayton was brought to ER by his family as he was noted to be generally weak with difficulty ambulating and missed HD today. He was due for dialysis this morning but he could not go for dialysis. He reports he has been having difficulty with sleep and most of the days he eventually fall up asleep early in the morning then he goes into deep sleep. Same thing happened last Wednesday and he missed his dialysis. Last night he could not sleep and then lpn he fell asleep and then later on his son came to check on him and found that he missed dialysis and decided to bring him over to ER. He has been on sertraline 50 mg, trazodone 100 mg, Ambien as needed and Requip total 5 mg daily. Over last 2 months he had frequent hospitalization for generalized weakness, chronic lower extremity ulcer and cellulitis. He lives alone in an apartment with his son's family close by. In ER his blood pressure was high, his blood pressure generally high. He was complaining of some shortness of breath and chest x-ray showed pulmonary vascular congestion clinically he was volume overloaded. He reports still making some urine despite being on dialysis for last 2 months. ESKD secondary to diabetic nephropathy, started on dialysis during hospitalization in September 2023 for lower extremity cellulitis and noted to have progressive worsening of kidney function and diuretic resistant volume overload. Has been on dialysis Wednesday, history, Wednesday at [facility] kidney [facility]. Has mature left RC AVF (02/07/2021, Dr. Howard) however he has been refusing to use the fistula as it has been extremely painful. Now he has a tunneled dialysis catheter. According to outpatient dialysis report his estimated dry weight is 104 kg and on admission his weight was 114 kg. History of diabetes since age 36, complicated by significant macro and microvascular disease and proliferative diabetic retinopathy. Hypertension for 30 years, seems to be reasonable, on Losartan 100 mg daily. H/O CAD s/p CABG. Recent echo showed EF 55%, has moderate concentric LVH and grade 2 diastolic dysfunction. No history of BPH, nephrolithiasis. Denies any voiding symptoms. Had left BKA in 2015 after a minor injury turned in to osteomyelitis, had antibiotic for several weeks which caused acute kidney injury, eventually required BKA. Has chronic rt lower extremity edema with ulcer and cellulitis, has been following with wound care. Currently he reports feeling sleepy but denies shortness of breath or chest pain. Allergies Allergy/AdvReac Type Severity Reaction Status Date / Time ofloxacin [From Floxin] Allergy Intermediate itching Verified 11/23/23 15:01 Quinolones Allergy Intermediate Itchiness Verified 11/23/23 15:01 sulfamethoxazole Allergy Intermediate Rash Verified 11/23/23 15:01 trimethoprim Allergy Intermediate Rash Verified 11/23/23 15:01 Home Medications Medication Instructions Recorded Confirmed Type latanoprost 0.005 % eye drops 1 drp OPB HS 12/27/17 11/26/23 History (Xalatan) brimonidine 0.2 % eye drops 1 drp OPB BID 12/07/20 11/26/23 History dorzolamide 2 % eye drops 1 drp OPB BID 12/07/20 11/26/23 History timolol maleate 0.5 % eye gel 1 drp OPB BID 12/07/20 11/26/23 History forming solution calcitriol 0.5 mcg capsule 1 mcg (2 x 0.5 mcg) PO QAM #60 caps 09/17/23 11/26/23 Rx ascorbic acid (vitamin C) 500 mg 500 mg PO QAM #90 caps 11/06/23 11/26/23 Rx capsule cholecalciferol (vitamin D3) 50 2,000 unit PO QAM #90 caps 11/06/23 11/26/23 Rx mcg (2,000 unit) capsule (Vitamin D3) cyanocobalamin (vitamin B-12) 500 1,000 mcg (2 x 500 mcg) PO QAM 11/06/23 11/26/23 Rx mcg tablet #180 tabs trazodone 100 mg tablet 100 mg PO HS #90 tabs 11/06/23 11/26/23 Rx isosorbide mononitrate 30 mg 30 mg PO QAM 90 days #90 tabs 11/08/23 11/26/23 Rx tablet,extended release 24 hr aspirin 81 mg tablet,delayed 81 mg PO QAM #90 tabs 11/09/23 11/26/23 Rx release atorvastatin 80 mg tablet (Lipitor) 80 mg PO DAILY #90 tabs 11/09/23 11/26/23 Rx bumetanide 1 mg tablet 1 mg PO BID #180 tabs 11/09/23 11/26/23 Rx hydralazine 25 mg tablet 75 mg (3 x 25 mg) PO TID 90 days 11/09/23 11/26/23 Rx #810 tabs insulin regular human 100 unit/mL 1 sliding scale dose subcut 11/09/23 11/26/23 Rx injection solution (Humulin R USEASDIRECTD #10 mL Regular U-100 Insulin) ondansetron 4 mg disintegrating 4 mg PO Q8H PRN nausea and 11/09/23 11/26/23 Rx tablet vomiting #90 tabs sertraline 50 mg tablet 50 mg PO DAILY #90 tabs 11/09/23 11/26/23 Rx insulin NPH isoph U-100 human 100 10 unit (0.1 mL) subcut BIDM #10 mL 11/10/23 11/26/23 Rx unit/mL subcutaneous suspension (Humulin N NPH U-100 Insulin (isophane susp)) metoprolol succinate 25 mg 25 mg PO BID #60 tabs 11/10/23 11/26/23 Rx tablet,extended release 24 hr pantoprazole 40 mg tablet,delayed 40 mg PO QAM #30 tabs 11/10/23 11/26/23 Rx release tramadol 50 mg tablet 50 mg PO DAILY PRN pain #30 tabs 11/10/23 11/26/23 Rx zolpidem 5 mg tablet 5 mg PO HS PRN insomnia #10 tabs 11/10/23 11/26/23 Rx docusate sodium 100 mg capsule 100 mg PO BID PRN Constipation 11/11/23 11/26/23 History polyethylene glycol 3350 17 gram 17 g PO BID PRN Constipation 11/11/23 11/26/23 History oral powder packet (Miralax) ropinirole 1 mg tablet 1 mg PO UD 11/26/23 11/26/23 History Patient History Medical History Chronic combined systolic and diastolic heart failure Depression Chronic kidney disease, stage 4 (severe) Diabetic peripheral 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 Restless leg syndrome Type 2 diabetes mellitus Ventricular bigeminy 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, with long-term current use of insulin (HFpEF) heart failure with preserved ejection fraction Pressure ulcer of BKA stump, stage 3 RESOLVED Influenza A virus subtype H1 2009 pandemic strain present Slow to wake up after anesthesia Wound of lower extremity RLE wound "improved" per 01/27/21 wound clinic visit ([facility]); surgeon aware of patient's wound hx per 01/2021 office visit note; "only has a little scab there now, keeps it covered to protect it." GERD (gastroesophageal reflux disease) History of TIA (transient ischemic attack) ~2009>over his left eye, no residual symptoms Surgical History S/P arteriovenous (AV) fistula creation left>no currently having dialysis History of esophagogastroduodenoscopy (EGD) History of colonoscopy S/P lumbar laminectomy S/P foot surgery S/P eye surgery B/L x3 (for glaucoma) S/P CABG x 4 (2012) CABG x4 (2011), [facility]; f/u PCP History of lumbar discectomy History of tonsillectomy Family History Father , age 78 with prostate cancer Colorectal cancer Cardiovascular disease Diabetes Prostate cancer Grandmother (Maternal) Diabetes Mother , age 54 of throat cancer Throat cancer Denies family history of Ovarian cancer Myocardial infarction Breast cancer Social History Smoking Status: Never smoker Second Hand Exposure: No; Do You Dip or Chew Tobacco: No; Hx Alcohol Use: No Hx Substance Use: No Preferred Language: Malagasy Communication Ability: Effective Visual Impairment: No Limitations Hearing Ability: Normal Systems Software Designer Required: No Beliefs That Will Affect Care: None marital status: / marital status details: lost August 2021 Current Living Situation: Alone current occupational status: retired current occupation: How many Children do You have: 2 other: Retired age 63-1/2. Feels Safe at Home: Yes Childhood Exposure to Second-Hand Smoke: No Diet: regular caffeine: No during the past year weight has: remained stable Dental Care, Regularly: Yes Physical Activity Frequency: Other Physical Activity Frequency Comment: limited d/t disability Seatbelt Use: always Sunscreen Use: Yes Assistive Devices: Glasses, Prosthesis, Walker and Wheelchair Review of Systems Review of Systems: Detailed review of system was done and pertinent positives and negatives are mentioned above. Physical Exam Constitutional: WD/WN, vitals as above no acute distress Respiratory: no respiratory distress Auscultation: + diminished lung sounds and + crackles Cardiovascular: Rate/Rhythm: regular rate and regular rhythm Heart Sounds: normal S1 and normal S2 Extremities: + edema, + vascular access device (Rt IJ TDC) and + AV fistula (Left RC AVF with thrill and bruit.) Gastrointestinal (Abdomen): Inspection/Auscultation: abdomen normal to inspection Musculoskeletal: Left BKA Skin: + ulcer and + erythema Neurologic: no focal motor deficits Psychiatric: Orientation: alert and oriented x 3 Affect: euthymic affect Results & Data Vital Signs (Past 12 Hours) Vital Signs Temp Pulse Resp BP Pulse Ox O2 Del Method O2 Flow Rate 11/26/23 13:12 49 L 18 96 11/26/23 13:01 86/54 L 11/26/23 13:01 86/54 L 11/26/23 13:00 50 L 15 95 11/26/23 12:31 53 L 16 114/75 96 Nasal Cannula 2 11/26/23 11:36 46 L 16 96 Nasal Cannula 2 11/26/23 11:16 138/63 11/26/23 11:15 46 L 18 138/63 98 Nasal Cannula 2 11/26/23 11:14 49 L 11/26/23 11:01 115/64 11/26/23 10:46 90 Room Air 11/26/23 10:45 49 L 21 97 Nasal Cannula 2 11/26/23 10:45 138/75 11/26/23 10:24 94 Room Air 11/26/23 10:24 36.8 C 50 L 18 113/69 95 Room Air PG Care Time/CCT Total # of Minutes Spent Total Time Spent with Patient: Total time spent is greater than 50% in coordination of care (as documented) at patient's floor/unit and/or counseling patient: Coding Level of Care Code 86386 INT INP/OBS CARE 3/75MIN Diagnoses ESRD (end stage renal disease) N18.6 Anemia of chronic disease D63.8 Generalized weakness R53.1 Anemia D64.9 Wound of lower extremity S81.809A
[2023-11-26] MEDS ORDERED: ACETAMINOPHEN 325 MG TAB PO PRN (15:30)
[2023-11-26] MEDS ORDERED: DOCUSATE SODIUM 100 MG CAP PO PRN (15:30)
[2023-11-26] MEDS ORDERED: POLYETHYLENE (MIRALAX) 17 GM PACK PO PRN (15:30)
[2023-11-26] MEDS ORDERED: ONDANSETRON 4 MG OD TAB PO PRN (15:30)
[2023-11-26] MEDS ORDERED: LIDOCAINE 4% CREAM 15 GM TUBE EXT PRN (16:00)
[2023-11-26] MEDS: EPOETIN ALFA 20,000 UNITS/ML VIAL IV STA (16:26)
[2023-11-26] MEDS ORDERED: Nursing to Pharmacy Communication SCH (17:30)
[2023-11-26] MEDS: hydrALAZINE HCL 25 MG TAB PO SCH (18:44)
[2023-11-26] MEDS: DOXYCYCLINE HYCLATE 100 MG in DEXTROSE 5% MINI-B 100 ML IV SCH (18:44)
[2023-11-26] MEDS: BUMETANIDE 1 MG TAB PO SCH (18:44)
[2023-11-26] MEDS: INSULIN ASPART PER UNIT CHARGE SC SCH (18:48)
[2023-11-26] MEDS: LANTUS PER UNIT CHARGE SC SCH (20:27)
[2023-11-26] MEDS: traZODone HCL 100 MG TAB PO SCH (20:31)
[2023-11-26] MEDS: TIMOLOL GFS 0.5% OPH SOLN 74 DROPS/5 ML BTL OPB SCH (20:31)
[2023-11-26] MEDS: LATANOPROST 0.005% OP SOLN 2.5 ML BTL OPB SCH (20:31)
[2023-11-26] MEDS: BRIMONIDINE TARTRATE 0.2% 5ML OPB SCH (20:32)
[2023-11-26] MEDS: METOPROLOL SUCC 25MG EXT REL TAB PO SCH (20:32)
[2023-11-26] MEDS: rOPINIRole HCL 1 MG TABLET PO SCH (20:33)
[2023-11-26] MEDS ORDERED: BUMETANIDE 1 MG TAB PO SCH (21:00)
[2023-11-27 06:23] LABS: Hematocrit (blood only) 27.7 % (42.0-52.0); Hemoglobin 9.1 g/dl (14.0-18.0); Mean Corpuscular Hemoglobin 31.1 pg (25.0-34.0); Mean Corpuscular Hgb Conc 32.9 g/dL (32.0-36.0); Mean Corpuscular Volume 94.5 fL (80.0-100.0); Platelet Count 86 K/uL (130-400); RDW Coefficient of Variation 17.8 % (11.5-14.5); RDW Standard Deviation 59.3 fL (36.4-46.3); Red Blood Count 2.93 M/uL (4.70-6.10); White Blood Count 5.78 K/ul (4.8-10.8)
[2023-11-27 06:45] LABS: Albumin Level 3.3 gm/dl (3.4-5.0); BUN Creatinine Ratio 9.4 (10-20); Calcium 8.4 mg/dl (8.6-10.3); Creatinine Clr Calc Pharmacy 18.2 ml/min; Est GFR (African American) 15.1 ml/min; Magnesium 1.9 mg/dl (1.7-2.4); Phosphorus 4.3 mg/dl (2.5-4.9); Potassium 4.3 mmol/L (3.5-5.1)
--- NOTE | 2023-11-27 08:51 | Electrocardiogram Report ---
Test Reason : Blood Pressure : */* mmHG Vent. Rate : 54 BPM Atrial Rate : 54 BPM P-R Int : 250 ms QRS Dur : 138 ms QT Int : 540 ms P-R-T Axes : 106 55 -40 degrees QTcB Int : 512 ms Sinus bradycardia with 1st degree A-V block with frequent Premature ventricular complexes in a patter n of bigeminy Right bundle branch block Possible Old Anteroseptal infarct Abnormal ECG When compared with ECG of 16-Nov-2023 15:31, Borderline Criteria for Anteroseptal infarct now present Otherwise no significant change Confirmed by Malcolm Croft ([id number]) on 11/27/2023 8:51:28 AM Referred By: REFERRED SELF Confirmed By: Malcolm Croft
[2023-11-27] MEDS: INSULIN ASPART PER UNIT CHARGE SC SCH (08:59)
[2023-11-27] MEDS: CHOLECALCIFEROL 25 MCG (1000 UNITS) TAB PO SCH (09:02)
[2023-11-27] MEDS: CALCITRIOL 0.25 MCG CAPSULE PO SCH (09:02)
[2023-11-27] MEDS: ASCORBIC ACID 500 MG TAB PO SCH (09:03)
[2023-11-27] MEDS: ATORVASTATIN 40 MG TAB PO SCH (09:03)
[2023-11-27] MEDS: ASPIRIN 81 MG ECTAB PO SCH (09:03)
[2023-11-27] MEDS: CYANOCOBALAMIN (B-12) 500 MCG TABLET PO SCH (09:03)
[2023-11-27] MEDS: NEPHROCAPS PO SCH (09:04)
[2023-11-27] MEDS: SERTRALINE HCL 50 MG TABLET PO SCH (09:04)
[2023-11-27] MEDS: PANTOprazole 40 MG TAB PO SCH (09:04)
[2023-11-27] MEDS: ISOSORBIDE MONO EXTENDED REL 30 MG TABCR PO SCH (09:04)
--- NOTE | 2023-11-27 09:20 | Hospitalist Progress Note ---
Date of Service November 27, 2023 Assessment & Plan (1) AMS (altered mental status): Plan: AMS due to metabolic encephalopathy Improved at admit assessment. A&Ox3. More fatigued than normal. Alert and oriented x 3 at the time of my visit. - ?2/2 hypoxia with volume overload, + Patient reportedly hypoglycemic prior to arrival. Is improved in ER although still significantly off of his normal baseline. BSG84 (2) Weakness: Plan: Most likely secondary to fluid overload and poor glycemic control Improved. Ambulate as tolerated (3) ESRD (end stage renal disease): Plan: ESRD on dialysis Nephrology consulted for dialysis due to evidence of volume overload with pulmonary edema, and prior missed sessions Potassium is normal - HD yesterday for 2 liters and again today for an additional 2 liters -SOB improved -Encouraged to ambulate as tolerated -Check labs again in the am (4) Type 2 diabetes mellitus: Plan: DM consult in due to history of recurrent episode of hypoglycemia, and reported prehospital hypoglycemia improved by time of arrival BSG daily -Random glucose 11/27/2023 is 100 Goal BSG 229110 Checks AC/at bedtime, DM 2 dialysis diet (5) Thrombocytopathia: Plan: Thrombocytopenia - Since 09/2023. - Remain s >50. On aspirin for TIA and hx CAD. Heparin[?] w HD -Plt count is 86,000 today - Pharmacoppx held, trended. +smear. +SCDs (6) Atypical pneumonia: Plan: Initially concern for potential for atelectasis versus possible superimposed on chest x-ray. No leukocytosis, no fever/chills/sweats. History of prolonged QT. - Doxy added, procalcitonin negative. Discontinue antibiotics. - Incentive spirometry ordered (7) Cardiomyopathy: Plan: CAD With chronically mildly elevated troponin, also with impaired clearance Troponin x 1 trended Troponin 35.3, history of CAD with low-grade troponin leak Prior history of bradycardia EKG on admission sinus with first-degree AV block, bigeminy. Appears similar compared to 11/06/2023 - Repeat EKG today Clinically volume overloaded. --> dialysis as ordered by nephrology Stable issues Depression: Continue home SSRI Chronic pain: Tramadol as needed, temporarily held for lethargy Insomnia: Continue trazodone/home Ambien as needed when mentation improved. These were temporarily held for lethargy GERD: Continue PPI Glaucoma: Continue home meds DVT prophylaxis: SCDs, heparin deferred while following thrombocytopenia CODE STATUS: Full code Diet: Dialysis, DM Plan Anticipate discharge home with [facility] once stable Admission and Anticipated Discharge Date Admission Date: November 26, 2023 Supervising Physician Co-Signing Physician Notes PA Supervision Note: I did not personally see or examine the patient today, but I verified all rivera points of MIAH King's assessment and plan with the following exceptions/additions: None Subjective Attending: Dr. Link Patient admitted yesterday for acute on chronic weakness and fatigue. At the time of admission, he reported progressive dyspnea with lethargy. Chest x-ray revealed increased pulmonary edema with bilateral pleural effusions as well as bilateral opacity suspicious for atelectasis. Patient reports he is unable to lay flat due to dyspnea. Patient does have history of ESRD and was scheduled for dialysis yesterday. He typically gets hemodialysis Wednesday and Wednesday at [facility]. Patient was seen by Dr. Richardson yesterday. AV fistula in place. Patient most recently admitted at [facility] from 11/06/2023 and discharged home with [facility] 11/10/2023 Patient seen by [facility] Failure [facility] 11/23/2023 and appeared euvolemic at that time. Outpatient diuretics included Bumex 1mg PO BID and hydralazine 75mg PO TID Since receiving dialysis yesterday and today, patient reports he is much improved. No shortness of breath. No chest pain or tightness. No wheezes. Patient has no acute complaints at this time. Review of Systems 2 Review of Systems: A total of 10 systems was reviewed and is negative other than as listed in the HPI Physical Exam 2 Physical Exam: GENERAL : No acute distress EYES: No icterus, gaze conjugate NOSE: No evidence of epistaxis MOUTH: No lesions or candidiasis NECK: Supple LUNGS: Generally CTA B/L, faint left upper lobe anterior wheeze which cleared with forceful cough. No rales or rhonchi HEART: Regular, rate controlled ABDOMEN: Soft, NT, ND, BS Present EXTREMITIES: No LE edema, pedal pulses intact NEURO: A&OX3 Results & Data Results & Data Vital Signs (Past 12 Hours) Vital Signs Temp Pulse Pulse Resp BP Pulse Ox O2 Del Method 11/27/23 08:28 60 11/27/23 07:39 36.4 C L 54 L 18 130/69 96 Room Air 11/27/23 05:37 36.5 C 76 15 126/59 L 97 Nasal Cannula 11/27/23 00:18 70 11/26/23 23:42 36.5 C 70 18 141/85 H 96 Nasal Cannula O2 Flow Rate 11/27/23 08:28 11/27/23 07:39 11/27/23 05:37 2 11/27/23 00:18 11/26/23 23:42 2 Laboratory Results 11/27/23 06:09 11/27/23 06:09 Diagnostic Findings Chest X-Ray 11/26/23 10:24 XR chest 1V portable CLINICAL HISTORY: Shortness of breath. COMPARISON STUDY: Chest CT October 15, 2014. Chest radiograph November 16, 2023. FINDINGS: There is no pneumothorax. Small left and trace right pleural effusions are unchanged. Right basilar opacity has slightly increased. There is persistent left basilar opacity. Pulmonary edema has slightly progressed. Cardiomegaly is again noted. There is a dual lumen right internal jugular central venous catheter and median sternotomy wires. IMPRESSION: 1. Cardiomegaly. Slight increase in pulmonary edema. 2. Small left and trace right pleural effusions. Bibasilar opacities which could reflect atelectasis or superimposed pneumonia. ACT 112: Negative or not required by law. Electronically signed by: Camilo Block M.D. 11/26/2023 10:48 AM PG Care Time/CCT Total # of Minutes Spent Total Time Spent with Patient: Total time spent is greater than 50% in coordination of care (as documented) at patient's floor/unit and/or counseling patient: 35 minutes Coding Level of Care Code 85661 SUB INP/OBS CARE 2/35MIN History Expanded Problem Focused Exam Expanded Problem Focused Medical Decision Making Moderate Complexity Diagnoses AMS (altered mental status) R41.82 Altered mental status type: unspecified Weakness R53.1 ESRD (end stage renal disease) N18.6 Type 2 diabetes mellitus E11.9 Thrombocytopathia D69.1 Atypical pneumonia J18.9 Cardiomyopathy, unspecified type I42.9 Cardiomyopathy type: unspecified Time Spent (min) 35 Comment 35 minutes including [id number] encounter with patient and chart review ; d/w attending (1) AMS (altered mental status) Altered mental status type: unspecified Qualified Code(s): R41.82 - Altered mental status, unspecified (7) Cardiomyopathy Cardiomyopathy type: unspecified Qualified Code(s): I42.9 - Cardiomyopathy, unspecified
--- NOTE | 2023-11-27 09:35 | Nephrology Progress Note ---
Date of Service November 27, 2023 Assessment & Plan (1) ESRD on dialysis: Plan: ESRD attributed to DKD. Maintained on HD MWF at [facility] under the care of Dr. Richardson. Rx: 3.5 hr, 180 optiflux, 400/800, 3K 2.5Ca 32HCO3 140Na, RIJ TDC + R RC AVF (placed 01/[address] Howard). Due to difficulty cannulating AVF, TDC has been used for treatment. [place] was receptive to attempting to use the AVF today. EMLA cream will be provided prior to HD. Completed HD yesterday with adequate UF and clearance. Volume status reasonable but some persistent evidence of fluid retention. Electrolytes controlled. I will provide a short HD treatment today for additional UF as tolerated. Continue Bumex to encourage urine output. Medications are dosed for IHD. Renal diet - strict 1.2 L daily fluid restriction and low sodium. Continue calcitriol per home Rx. (2) Anemia of chronic disease: Plan: Epogen 20,000 units x 1 dose provided yesterday. (3) Insomnia: Plan: BERTIN/MDD appear to be contributing factors. [place] continues to cope with the loss of his . He has situational anxiety associated with recent life changes. Current medical therapy includes trazodone, sertraline, and PRN Ambien. He is also maintained on ropinirole for RLS. Sleep hygiene and appropriate use of these medications was discussed. It's unclear if Ambien has provided any benefits. [place] may benefit from increased dose of sertraline. Admission and Anticipated Discharge Date Admission Date: November 26, 2023 Subjective No acute events overnight. [place] tolerated HD well yesterday. He reports some mild persistent chest congestion. No chest pains or palpitations. He is breathing comfortably. His primary concern is insomnia. He admits to some ongoing depression and grief related to the loss of his . He feels that anxiety stemming from recent hypoglycemic episodes may also be contributing to his difficulty sleeping. He denies any anxiety associated with dialysis treatments. He states that he generally feels better after HD. However, he is worried that use of the AVF will be too painful to tolerate and he prefers to use the catheter. Review of Systems Review of Systems: All systems reviewed & are unremarkable except as noted in HPI & below Physical Exam Constitutional: well developed; no acute distress Eyes: no scleral abnormality and no corneal abnormality ENMT: Mouth: no oral mucosal abnormality and oral mucous membranes not dry Neck: normal visual inspection and trachea midline Respiratory: normal respiratory effort Auscultation: lungs clear to auscultation bilaterally and + rales (few basilar rales on the left) Cardiovascular: Rate/Rhythm: regular rate Heart Sounds: normal S1 and normal S2 Extremities: + edema (RLE) and + AV fistula (L RC AVF + bruit) Musculoskeletal: Extremities: no cyanosis and no clubbing Skin: + turgor decreased; no jaundice Neurologic: Motor/Sensory: no tremor and no asterixis Psychiatric: Orientation: alert and oriented x 3 Results & Data Vital Signs (Past 12 Hours) Vital Signs Temp Pulse Pulse Resp BP Pulse Ox O2 Del Method 11/27/23 08:28 60 11/27/23 07:39 36.4 C L 54 L 18 130/69 96 Room Air 11/27/23 05:37 36.5 C 76 15 126/59 L 97 Nasal Cannula 11/27/23 00:18 70 11/26/23 23:42 36.5 C 70 18 141/85 H 96 Nasal Cannula O2 Flow Rate 11/27/23 08:28 11/27/23 07:39 11/27/23 05:37 2 11/27/23 00:18 11/26/23 23:42 2 Laboratory Results Laboratory Results - last 24 hr 11/26/23 11/26/23 11/26/23 10:23 10:27 10:29 WBC 7.09 RBC 3.30 L Hgb 10.3 L POC Hgb 10.5 L Hct 32.2 L POC Hct 31 L MCV 97.6 MCH 31.2 MCHC 32.0 RDW Std Deviation 61.1 H RDW Coeff of Jose 17.9 H Plt Count 88 L MPV 13.3 H Immature Gran % (Auto) 0.6 Neut % (Auto) 88.6 Lymph % (Auto) 3.2 Rankin % (Auto) 6.9 Eos % (Auto) 0.1 Baso % (Auto) 0.6 Neut # (Auto) 6.28 Lymph # (Auto) 0.23 L Rankin # (Auto) 0.49 Eos # (Auto) 0.01 Baso # (Auto) 0.04 Immature Gran # (Auto) 0.04 VBG pH 7.29 L VBG pCO2 48 VBG pO2 45 VBG HCO3 23 VBG O2 Saturation 70.9 VBG Base Excess -3.8 POC Sodium 138 Sodium 139 POC Potassium 4.6 Potassium 4.6 POC Chloride 105 Chloride 104 Carbon Dioxide 24 POC Total CO2 23 L Anion Gap 11 POC Anion Gap 17.0 POC BUN 56 H BUN 62 H Creatinine 5.46 H* POC Creatinine 6.0 H* Est Cr Clr Drug Dosing 14.3 Est GFR ( Amer) 10.9 Est GFR (Non-Af Amer) 9.4 BUN/Creatinine Ratio 11.4 Glucose 90 POC Glucose POC Glucose (other) 84 Lactate 1.5 Calcium 9.0 POC Ioniz Calcium Luzma 1.20 Phosphorus Magnesium Total Bilirubin 0.6 AST 20 ALT 26 Alkaline Phosphatase 110 H Troponin I High Sens 35.3 H Total Protein 6.4 Albumin 3.9 Globulin 2.5 Albumin/Globulin Ratio 1.6 Lipase 46 Procalcitonin 0.25 Nasal Screen MRSA (PCR) 11/26/23 11/26/23 11/26/23 18:40 18:42 19:06 WBC RBC Hgb POC Hgb Hct POC Hct MCV MCH MCHC RDW Std Deviation RDW Coeff of Jose Plt Count MPV Immature Gran % (Auto) Neut % (Auto) Lymph % (Auto) Rankin % (Auto) Eos % (Auto) Baso % (Auto) Neut # (Auto) Lymph # (Auto) Rankin # (Auto) Eos # (Auto) Baso # (Auto) Immature Gran # (Auto) VBG pH VBG pCO2 VBG pO2 VBG HCO3 VBG O2 Saturation VBG Base Excess POC Sodium Sodium POC Potassium Potassium POC Chloride Chloride Carbon Dioxide POC Total CO2 Anion Gap POC Anion Gap POC BUN BUN Creatinine POC Creatinine Est Cr Clr Drug Dosing Est GFR ( Amer) Est GFR (Non-Af Amer) BUN/Creatinine Ratio Glucose POC Glucose 60 L* 96 POC Glucose (other) Lactate Calcium POC Ioniz Calcium Lu[place]ma Phosphorus Magnesium Total Bilirubin AST ALT Alkaline Phosphatase Troponin I High Sens Total Protein Albumin Globulin Albumin/Globulin Ratio Lipase Procalcitonin Nasal Screen MRSA (PCR) Negative 11/27/23 11/27/23 11/27/23 00:02 02:15 05:32 WBC RBC Hgb POC Hgb Hct POC Hct MCV MCH MCHC RDW Std Deviation RDW Coeff of Jose Plt Count MPV Immature Gran % (Auto) Neut % (Auto) Lymph % (Auto) Rankin % (Auto) Eos % (Auto) Baso % (Auto) Neut # (Auto) Lymph # (Auto) Rankin # (Auto) Eos # (Auto) Baso # (Auto) Immature Gran # (Auto) VBG pH VBG pCO2 VBG pO2 VBG HCO3 VBG O2 Saturation VBG Base Excess POC Sodium Sodium POC Potassium Potassium POC Chloride Chloride Carbon Dioxide POC Total CO2 Anion Gap POC Anion Gap POC BUN BUN Creatinine POC Creatinine Est Cr Clr Drug Dosing Est GFR ( Amer) Est GFR (Non-Af Amer) BUN/Creatinine Ratio Glucose POC Glucose 89 83 112 H POC Glucose (other) Lactate Calcium POC Ioniz Calcium Lu[place] Phosphorus Magnesium Total Bilirubin AST ALT Alkaline Phosphatase Troponin I High Sens Total Protein Albumin Globulin Albumin/Globulin Ratio Lipase Procalcitonin Nasal Screen MRSA (PCR) 11/27/23 11/27/23 06:09 07:34 WBC 5.78 RBC 2.93 L Hgb 9.1 L POC Hgb Hct 27.7 L POC Hct MCV 94.5 MCH 31.1 MCHC 32.9 RDW Std Deviation 59.3 H RDW Coeff of Jose 17.8 H Plt Count 86 L MPV 13.0 H Immature Gran % (Auto) Neut % (Auto) Lymph % (Auto) Rankin % (Auto) Eos % (Auto) Baso % (Auto) Neut # (Auto) Lymph # (Auto) Rankin # (Auto) Eos # (Auto) Baso # (Auto) Immature Gran # (Auto) VBG pH VBG pCO2 VBG pO2 VBG HCO3 VBG O2 Saturation VBG Base Excess POC Sodium Sodium 136 POC Potassium Potassium 4.3 POC Chloride Chloride 102 Carbon Dioxide 26 POC Total CO2 Anion Gap 8 POC Anion Gap POC BUN BUN 39 H D Creatinine 4.17 H D POC Creatinine Est Cr Clr Drug Dosing 18.2 Est GFR ( Amer) 15.1 Est GFR (Non-Af Amer) 13.0 BUN/Creatinine Ratio 9.4 L Glucose 100 H POC Glucose 115 H POC Glucose (other) Lactate Calcium 8.4 L POC Ioniz Calcium Luzma Phosphorus 4.3 Magnesium 1.9 Total Bilirubin AST ALT Alkaline Phosphatase Troponin I High Sens Total Protein Albumin 3.3 L Globulin Albumin/Globulin Ratio Lipase Procalcitonin Nasal Screen MRSA (PCR) PG Care Time/CCT Total # of Minutes Spent Total Time Spent with Patient: Total time spent is greater than 50% in coordination of care (as documented) at patient's floor/unit and/or counseling patient: Coding Level of Care Code 57778 SUB INP/OBS CARE 3/50MIN Diagnoses ESRD on dialysis N18.6; Z99.2 Anemia of chronic disease D63.8 Insomnia G47.00
[2023-11-27 13:57] LABS: Appearance Urine Cloudy (Clear); Bacteria Urine Automated None Seen (None Seen); Bilirubin Urine Negative (Negative); Blood Urine Negative (Negative); Cast Urine Automated 0-2 /lpf (0-2); Color Urine Dark Yellow; Epithelial Cell Urine Auto 0-2 /hpf (0-2); Glucose Urine UA Negative (Negative); Ketones Urine Trace (Negative); Leukocyte Esterase Urine Trace (Negative); Nitrite Urine Negative (Negative); Protein Urine 3+ (Negative); RBC Urine Automated 0-2 /hpf (0-2); Specific Gravity Urine 1.019 (1.000-1.030); Urobilinogen Urine Negative (Negative); WBC Urine Automated 0-5 /hpf (0-5)
[2023-11-27] MEDS: INSULIN HUMAN NPH SC SCH (17:55)
[2023-11-27] MEDS: ZOLPIDEM TARTRATE 5 MG TAB PO PRN (22:14)
[2023-11-27] MEDS: LIDOCAINE/PRILOCAINE 2.5% EA CRM EXT ONE (22:42)
[2023-11-28] MEDS: INSULIN ASPART PER UNIT CHARGE SC SCH (00:08)
[2023-11-28 06:15] LABS: Hemoglobin 9.3 g/dl (14.0-18.0); Mean Corpuscular Hemoglobin 31.5 pg (25.0-34.0); Mean Corpuscular Hgb Conc 32.1 g/dL (32.0-36.0); Mean Corpuscular Volume 98.3 fL (80.0-100.0); Platelet Count 82 K/uL (130-400); RDW Coefficient of Variation 17.7 % (11.5-14.5); RDW Standard Deviation 62.6 fL (36.4-46.3); Red Blood Count 2.95 M/uL (4.70-6.10); White Blood Count 5.18 K/ul (4.8-10.8)
[2023-11-28 06:40] LABS: BUN Creatinine Ratio 10.7 (10-20); Calcium 8.4 mg/dl (8.6-10.3); Creatinine Clr Calc Pharmacy 16.8 ml/min; Est GFR (African American) 13.9 ml/min; Potassium 4.2 mmol/L (3.5-5.1)
--- NOTE | 2023-11-28 10:16 | Pharmacy Report ---
Pharmacy Glycemic Short Note 2 - Date of Service November 28, 2023 - Glycemic Short BSG Results (Last 24 hours): 11/27/23 11/27/23 11/27/23 13:23 16:42 20:18 Glucose POC Glucose 136 H 172 H 208 H 11/27/23 11/28/23 11/28/23 23:58 03:36 06:06 Glucose 168 H POC Glucose 191 H 210 H 11/28/23 08:06 Glucose POC Glucose 167 H OUTPATIENT ANTIDIABETIC REGIMEN: * NPH 10 units SC BID - (recent decrease from 30 units BID d/t more hypoglycemic episodes) * Regular insulin sliding scale at 11am daily ASSESSMENT: 11/27 * On 11/25 patient had 0 units of insulin * On 11/26 - had HD, patient increased PO intake, blood sugars rising with meals, added NPH back on at dinner last night, continue * Continue higher goal range for patient with hypoglycemia prior to arrival * HD MWF 11/25 * 73 YO M, PMH ESRDHDD, HFpEF, Type 1 DM, CVA, sacral ulcer who presents to the ER with acute on chronic weakness and fatigue. Fluid overload, questionable pneumonia. * Labs acceptable at this time, no anion gap, patient with hypoglycemic episodes on past admissions, difficult to manage, did not take insulin at home this morning. * Will use Lantus for patient tonight if blood glucose rises, as patient is NPO at this time. Further basal dosing for type 1 in AM. PLAN FOR INPATIENT GLYCEMIC CONTROL: * Basal insulin * NPH 8 units SQ BID with meals * Bolus insulin * NovoLog per scale ACHS or Q6hrs while NPO * Goal Range: Low 120 mg/dL - High 150 mg/dL * Correction Factor: 35 mg/dL/unit * Nutritional / Prandial insulin per carb ratio of 1 unit per 10 grams CHO consumed
--- NOTE | 2023-11-28 13:28 | Nephrology Progress Note ---
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 Maintained on HD MWF at [facility] under the care of Dr. Richardson. Rx: 3.5 hr, 180 optiflux, 400/800, 3K 2.5Ca 32HCO3 140Na, RIJ TDC + R RC AVF (placed 01/[address] Howard). Due to difficulty cannulating AVF, TDC has been used for treatment. [place] is receptive to attempting to use the AVF tomorrow. EMLA cream will be provided prior to HD. Completed HD yesterday with adequate UF and clearance. Prelim orders for HD tomorrow entered into the EHR. Continue Bumex to encourage urine output. Medications are dosed for IHD. Renal diet - strict 1.2 L daily fluid restriction and low sodium. Continue calcitriol per home Rx. (2) Anemia of chronic disease: Plan: Epogen 20,000 units x 1 dose provided 11/25. (3) Insomnia: Plan: Reports improvement with Ambien last night. Admission and Anticipated Discharge Date Admission Date: November 26, 2023 Subjective No acute events overnight. [place] slept well last night. He states that he feels significantly better this AM. Tolerated HD well yesterday. No complications with treatment. Review of Systems Review of Systems: All systems reviewed & are unremarkable except as noted in HPI & below Physical Exam Constitutional: well developed; no acute distress Eyes: no scleral abnormality and no corneal abnormality ENMT: Mouth: no oral mucosal abnormality and oral mucous membranes not dry Neck: normal visual inspection and trachea midline Respiratory: normal respiratory effort Auscultation: lungs clear to auscultation bilaterally Cardiovascular: Rate/Rhythm: regular rate Heart Sounds: normal S1 and normal S2 Extremities: + edema (RLE) and + AV fistula (L RC AVF + bruit) Musculoskeletal: Extremities: no cyanosis and no clubbing Skin: + turgor decreased; no jaundice Neurologic: Motor/Sensory: no tremor and no asterixis Psychiatric: Orientation: alert and oriented x 3 Results & Data Vital Signs (Past 12 Hours) Vital Signs Temp Pulse Pulse Resp BP Pulse Ox O2 Del Method 11/28/23 11:23 36.7 C 55 L 18 142/61 H 95 Nasal Cannula 11/28/23 11:05 Nasal Cannula 11/28/23 08:17 36.7 C 58 L 19 129/66 92 Nasal Cannula 11/28/23 07:11 54 L 11/28/23 03:56 36.7 C 58 L 18 113/51 L 93 Nasal Cannula O2 Flow Rate 11/28/23 11:23 2.0 11/28/23 11:05 2 11/28/23 08:17 2.0 11/28/23 07:11 11/28/23 03:56 2 Laboratory Results Laboratory Results - last 24 hr 11/27/23 11/27/23 11/27/23 13:23 13:35 16:42 WBC RBC Hgb Hct MCV MCH MCHC RDW Std Deviation RDW Coeff of Jose Plt Count MPV Sodium Potassium Chloride Carbon Dioxide Anion Gap BUN Creatinine Est Cr Clr Drug Dosing Est GFR ( Amer) Est GFR (Non-Af Amer) BUN/Creatinine Ratio Glucose POC Glucose 136 H 172 H Calcium Urine Color Dark Yellow Urine Appearance Cloudy A Urine pH 5.0 Ur Specific [place] 1.019 Urine Protein 3+ H Urine Glucose (UA) Negative Urine Ketones Trace H Urine Blood Negative Urine Nitrite Negative Urine Bilirubin Negative Urine Urobilinogen Negative Ur Leukocyte Esterase Trace H Urine WBC (Auto) 0-5 Urine RBC (Auto) 0-2 U Hyaline Cast (Auto) 0-2 U Epithel Cells (Auto) 0-2 Urine Bacteria (Auto) None Seen 11/27/23 11/27/23 11/28/23 20:18 23:58 03:36 WBC RBC Hgb Hct MCV MCH MCHC RDW Std Deviation RDW Coeff of Jose Plt Count MPV Sodium Potassium Chloride Carbon Dioxide Anion Gap BUN Creatinine Est Cr Clr Drug Dosing Est GFR ( Amer) Est GFR (Non-Af Amer) BUN/Creatinine Ratio Glucose POC Glucose 208 H 191 H 210 H Calcium Urine Color Urine Appearance Urine pH Ur Specific [place] Urine Protein Urine Glucose (UA) Urine Ketones Urine Blood Urine Nitrite Urine Bilirubin Urine Urobilinogen Ur Leukocyte Esterase Urine WBC (Auto) Urine RBC (Auto) U Hyaline Cast (Auto) U Epithel Cells (Auto) Urine Bacteria (Auto) 11/28/23 11/28/23 11/28/23 06:06 08:06 11:22 WBC 5.18 RBC 2.95 L Hgb 9.3 L Hct 29.0 L MCV 98.3 MCH 31.5 MCHC 32.1 RDW Std Deviation 62.6 H RDW Coeff of Jose 17.7 H Plt Count 82 L MPV 13.0 H Sodium 134 L Potassium 4.2 Chloride 100 Carbon Dioxide 26 Anion Gap 8 BUN 48 H Creatinine 4.47 H D Est Cr Clr Drug Dosing 16.8 Est GFR ( Amer) 13.9 Est GFR (Non-Af Amer) 12.0 BUN/Creatinine Ratio 10.7 Glucose 168 H POC Glucose 167 H 171 H Calcium 8.4 L Urine Color Urine Appearance Urine pH Ur Specific [place] Urine Protein Urine Glucose (UA) Urine Ketones Urine Blood Urine Nitrite Urine Bilirubin Urine Urobilinogen Ur Leukocyte Esterase Urine WBC (Auto) Urine RBC (Auto) U Hyaline Cast (Auto) U Epithel Cells (Auto) Urine Bacteria (Auto) PG Care Time/CCT Total # of Minutes Spent Total Time Spent with Patient: Total time spent is greater than 50% in coordination of care (as documented) at patient's floor/unit and/or counseling patient: Coding Level of Care Code 30296 SUB INP/OBS CARE 3/50MIN Diagnoses ESRD on dialysis N18.6; Z99.2 Anemia of chronic disease D63.8 Insomnia G47.00
--- NOTE | 2023-11-28 18:10 | Hospitalist Progress Note ---
Date of Service November 28, 2023 Assessment & Plan (1) AMS (altered mental status): Plan: AMS due to metabolic encephalopathy Resolved - ?2/2 hypoxia with volume overload, + Patient reportedly hypoglycemic prior to arrival. (2) Weakness: Plan: Most likely secondary to fluid overload and poor glycemic control Improved. Ambulate as tolerated Hopefully will be able to discharge home tomorrow after dialysis (3) ESRD (end stage renal disease): Plan: ESRD on dialysis Nephrology consulted for dialysis due to evidence of volume overload with pulmonary edema, and prior missed sessions Potassium is normal - HD 11/26/2023 yesterday for 2 liters and again 11/27/2023. Will plan on inpatient hemodialysis with ultrafiltration tomorrow to obtain new dry weight -SOB resolved -Encouraged to ambulate as tolerated -Follow serial labs (4) Type 2 diabetes mellitus: Plan: DM consult in due to history of recurrent episode of hypoglycemia, and reported prehospital hypoglycemia improved by time of arrival BSG daily -Random glucose 11/27/2023 is 168 Goal BSG [id number] Checks AC/at bedtime, DM 2 dialysis diet (5) Thrombocytopathia: Plan: Thrombocytopenia - Since 09/2023. - Remain s >50. On aspirin for TIA and hx CAD. Heparin[?] w HD -Plt count is 82,000 today - Pharmacoppx held, trended. +smear. +SCDs (6) Atypical pneumonia: Plan: Initially concern for potential for atelectasis versus possible superimposed on chest x-ray. No leukocytosis, no fever/chills/sweats. History of prolonged QT. - Doxy added, procalcitonin negative. Discontinue antibiotics. - Incentive spirometry ordered -Patient with no complaints (7) Cardiomyopathy: Plan: CAD With chronically mildly elevated troponin, also with impaired clearance Troponin x 1 trended Troponin 35.3, history of CAD with low-grade troponin leak Prior history of bradycardia EKG on admission sinus with first-degree AV block, bigeminy. Appears similar compared to 11/06/2023 Clinically volume overloaded. --> dialysis as ordered by nephrology Stable issues Depression: Continue home SSRI Chronic pain: Denies pain today. Tramadol as needed, temporarily held for lethargy Insomnia: Continue trazodone/home Ambien as needed when mentation improved. These were temporarily held for lethargy GERD: Continue PPI Glaucoma: Continue home meds DVT prophylaxis: SCDs, heparin deferred while following thrombocytopenia CODE STATUS: Full code Diet: Dialysis, DM Plan Anticipate discharge home with [facility] once stable Admission and Anticipated Discharge Date Admission Date: November 26, 2023 Supervising Physician Co-Signing Physician Notes PA Supervision Note: I did not personally see or examine the patient today, but I verified all rivera points of MIAH King's assessment and plan with the following exceptions/additions: None Subjective Attending: Dr. Link Patient seen and examined at bedside. No acute events overnight. He seems to be improving. Patient still with crackles and edema of the right lower extremity. Discussed case with Dr. Matt. Will plan on inpatient dialysis tomorrow to obtain new baseline dry weight. Review of Systems 2 Review of Systems: A total of 10 systems was reviewed and is negative other than as listed in the HPI Physical Exam 2 Physical Exam: GENERAL : No acute distress EYES: No icterus, gaze conjugate NOSE: No evidence of epistaxis MOUTH: No lesions or candidiasis NECK: Supple LUNGS: Bilateral rales at the bases. No wheezes. No rhonchi. HEART: Regular, rate controlled ABDOMEN: Soft, NT, ND, BS Present EXTREMITIES: No LE edema, pedal pulse intact on right. Left lower extremity prosthesis NEURO: A&OX3 Results & Data Results & Data Vital Signs (Past 12 Hours) Vital Signs Temp Pulse Pulse Pulse Resp BP Pulse Ox 11/28/23 14:41 53 L 11/28/23 14:36 122/56 L 11/28/23 14:16 36.4 C L 57 L 16 126/39 L 95 11/28/23 11:23 36.7 C 55 L 18 142/61 H 95 11/28/23 11:05 11/28/23 08:17 36.7 C 58 L 19 129/66 92 11/28/23 07:11 54 L O2 Del Method O2 Flow Rate 11/28/23 14:41 11/28/23 14:36 11/28/23 14:16 Nasal Cannula 2 11/28/23 11:23 Nasal Cannula 2.0 11/28/23 11:05 Nasal Cannula 2 11/28/23 08:17 Nasal Cannula 2.0 11/28/23 07:11 Laboratory Results 11/28/23 06:06 11/28/23 06:06 PG Care Time/CCT Total # of Minutes Spent Total Time Spent with Patient: Total time spent is greater than 50% in coordination of care (as documented) at patient's floor/unit and/or counseling patient:25 minutes Coding Level of Care Code 31954 SUB INP/OBS CARE 25MIN Diagnoses AMS (altered mental status) R41.82 Altered mental status type: unspecified Weakness R53.1 ESRD (end stage renal disease) N18.6 Type 2 diabetes mellitus E11.9 Thrombocytopathia D69.1 Atypical pneumonia J18.9 Cardiomyopathy, unspecified type I42.9 Cardiomyopathy type: unspecified Time Spent (min) 25 (1) AMS (altered mental status) Altered mental status type: unspecified Qualified Code(s): R41.82 - Altered mental status, unspecified (7) Cardiomyopathy Cardiomyopathy type: unspecified Qualified Code(s): I42.9 - Cardiomyopathy, unspecified
[2023-11-29] MEDS: INSULIN ASPART PER UNIT CHARGE SC SCH (00:29)
[2023-11-29 08:26] LABS: Hematocrit (blood only) 29.2 % (42.0-52.0); Hemoglobin 9.7 g/dl (14.0-18.0); Mean Corpuscular Hemoglobin 31.5 pg (25.0-34.0); Mean Corpuscular Hgb Conc 33.2 g/dL (32.0-36.0); Mean Corpuscular Volume 94.8 fL (80.0-100.0); Mean Platelet Volume 13.2 fL (9.4-12.4); Platelet Count 84 K/uL (130-400); RDW Coefficient of Variation 17.7 % (11.5-14.5); RDW Standard Deviation 60.9 fL (36.4-46.3); Red Blood Count 3.08 M/uL (4.70-6.10); White Blood Count 5.55 K/ul (4.8-10.8)
[2023-11-29] MEDS: INSULIN HUMAN NPH SC SCH (08:26)
[2023-11-29 08:31] VITALS: RESP 19; O2SAT 92
[2023-11-29 08:45] LABS: BUN Creatinine Ratio 11.5 (10-20); Calcium 8.6 mg/dl (8.6-10.3); Creatinine Clr Calc Pharmacy 12.7 ml/min; Est GFR (African American) 9.9 ml/min; Est GFR (Non-African American) 8.5 ml/min
--- NOTE | 2023-11-29 09:02 | Electrocardiogram Report ---
Test Reason : Blood Pressure : */* mmHG Vent. Rate : 60 BPM Atrial Rate : 60 BPM P-R Int : 270 ms QRS Dur : 122 ms QT Int : 470 ms P-R-T Axes : 89 109 -75 degrees QTcB Int : 470 ms Sinus rhythm with 1st degree A-V block Right bundle branch block Old Septal infarct (cited on or before 29-Sep-2023) Nonspecific T wave abnormality Lateral leads Abnormal ECG When compared with ECG of 26-Nov-2023 10:24, Premature ventricular complexes are no longer Present Confirmed by Malcolm Croft ([id number]) on 11/29/2023 9:02:25 AM Referred By: REFERRED SELF Confirmed By: Malcolm Croft
--- NOTE | 2023-11-29 09:03 | Electrocardiogram Report ---
Test Reason : Blood Pressure : */* mmHG Vent. Rate : 57 BPM Atrial Rate : 57 BPM P-R Int : 258 ms QRS Dur : 134 ms QT Int : 510 ms P-R-T Axes : 75 61 43 degrees QTcB Int : 496 ms Sinus bradycardia with 1st degree A-V block with frequent Premature ventricular complexes in a patter n of bigeminy Right bundle branch block Old Septal infarct (cited on or before 29-Sep-2023) Diffuse Nonspecific T wave abnormality Abnormal ECG When compared with ECG of 27-Nov-2023 10:04, Premature ventricular complexes are now Present Confirmed by Malcolm Croft ([id number]) on 11/29/2023 9:03:33 AM Referred By: REFERRED SELF Confirmed By: Malcolm Croft
--- NOTE | 2023-11-29 10:17 | Nephrology Progress Note ---
Date of Service November 29, 2023 Assessment & Plan (1) ESRD on dialysis: Plan: ESRD attributed to DKD. Maintained on HD MWF at [facility] under the care of Dr. Richardson. Rx: 3.5 hr, 180 optiflux, 400/800, 3K 2.5Ca 32HCO3 140Na, RIJ TDC + R RC AVF (placed 01/[address] Howard). Due to difficulty cannulating AVF, TDC has been used for treatment. Dayton is receptive to attempting to use the AVF but unfortunately not well tolerated due to pain. EMLA cream provided prior to HD. Orders for HD today entered into the EHR and reviewed with HD RN. Tolerating HD well. Seen and evaluated during treatment. Adequate Qb with TDC. Continue Bumex to encourage urine output. Medications are dosed for IHD. Renal diet - strict 1.2 L daily fluid restriction and low sodium. Continue calcitriol per home Rx. (2) Anemia of chronic disease: Plan: Epogen 20,000 units x 1 dose provided 11/25. Admission and Anticipated Discharge Date Admission Date: November 26, 2023 Subjective No acute events overnight. Dayton was seen and evaluated during HD this AM. He did not tolerate needle placement in AVF despite EMLA cream. Continues to endorse significant pain with needles. TDC functioning well. Review of Systems 2 Review of Systems: All systems reviewed & are unremarkable except as noted in HPI & below Physical Exam Constitutional: well developed; no acute distress Eyes: no scleral abnormality and no corneal abnormality ENMT: Mouth: no oral mucosal abnormality and oral mucous membranes not dry Neck: normal visual inspection and trachea midline Respiratory: normal respiratory effort Auscultation: lungs clear to auscultation bilaterally and + rales (few basilar rales on the left) Cardiovascular: Rate/Rhythm: regular rate Heart Sounds: normal S1 and normal S2 Extremities: + edema (RLE) and + AV fistula (L RC AVF + bruit) Musculoskeletal: Extremities: no cyanosis and no clubbing Skin: + turgor decreased; no jaundice Neurologic: Motor/Sensory: no tremor and no asterixis Psychiatric: Orientation: alert and oriented x 3 Results & Data Vital Signs (Past 12 Hours) Vital Signs Temp Pulse Pulse Resp BP Pulse Ox O2 Del Method 11/29/23 07:59 36.3 C L 64 19 167/60 H 92 Room Air 11/29/23 03:00 36.4 C L 62 21 143/63 H 90 Room Air 11/28/23 23:54 62 11/28/23 23:38 36.6 C 60 21 120/44 L 90 Room Air Laboratory Results Laboratory Results - last 24 hr 11/28/23 11/28/23 11/28/23 11:22 16:51 20:15 WBC RBC Hgb Hct MCV MCH MCHC RDW Std Deviation RDW Coeff of Jose Plt Count MPV Sodium Potassium Chloride Carbon Dioxide Anion Gap BUN Creatinine Est Cr Clr Drug Dosing Est GFR ( Amer) Est GFR (Non-Af Amer) BUN/Creatinine Ratio Glucose POC Glucose 171 H 166 H 234 H Calcium Hep Bs Antigen Hep Bs Antibody Hep Bs Antibody, Quant 11/29/23 11/29/23 11/29/23 00:17 03:28 07:31 WBC 5.55 RBC 3.08 L Hgb 9.7 L Hct 29.2 L MCV 94.8 MCH 31.5 MCHC 33.2 RDW Std Deviation 60.9 H RDW Coeff of Jose 17.7 H Plt Count 84 L MPV 13.2 H Sodium 134 L Potassium 4.0 Chloride 100 Carbon Dioxide 22 Anion Gap 12 H BUN 68 H D Creatinine 5.92 H* D Est Cr Clr Drug Dosing 12.7 Est GFR ( Amer) 9.9 Est GFR (Non-Af Amer) 8.5 BUN/Creatinine Ratio 11.5 Glucose 184 H POC Glucose 226 H 202 H Calcium 8.6 Hep Bs Antigen Pending Hep Bs Antibody Pending Hep Bs Antibody, Quant Pending 11/29/23 07:59 WBC RBC Hgb Hct MCV MCH MCHC RDW Std Deviation RDW Coeff of Jose Plt Count MPV Sodium Potassium Chloride Carbon Dioxide Anion Gap BUN Creatinine Est Cr Clr Drug Dosing Est GFR ( Amer) Est GFR (Non-Af Amer) BUN/Creatinine Ratio Glucose POC Glucose 203 H Calcium Hep Bs Antigen Hep Bs Antibody Hep Bs Antibody, Quant PG Care Time/CCT Total # of Minutes Spent Total Time Spent with Patient: Total time spent is greater than 50% in coordination of care (as documented) at patient's floor/unit and/or counseling patient: Coding Level of Care Code 75816 SUB INP/OBS CARE 3/50MIN Diagnoses ESRD on dialysis N18.6; Z99.2 Anemia of chronic disease D63.8
--- NOTE | 2023-11-29 10:42 | Pharmacy Report ---
Pharmacy Glycemic Short Note 2 - Date of Service November 29, 2023 - Glycemic Short BSG Results (Last 24 hours): 11/28/23 11/28/23 11/28/23 11:22 16:51 20:15 Glucose POC Glucose 171 H 166 H 234 H 11/29/23 11/29/23 11/29/23 00:17 03:28 07:31 Glucose 184 H POC Glucose 226 H 202 H 11/29/23 07:59 Glucose POC Glucose 203 H OUTPATIENT ANTIDIABETIC REGIMEN: * NPH 10 units SC BID - (recent decrease from 30 units BID d/t more hypoglycemic episodes) * Regular insulin sliding scale at 11am daily ASSESSMENT: 11/28 * On 11/27 patient had 42 units of insulin (16 units basal) * Patient's BSG is elevated this morning at 203, plan to increase NPH to home dose of 10 units BID due to elevated fasting BSG * Despite some elevated blood glucose during the day, hesitant to adjust Novolog due to additional prandial coverage from NPH increase. Will consider adjustment tomorrow. 11/27 * On 11/25 patient had 0 units of insulin * On 11/26 - had HD, patient increased PO intake, blood sugars rising with meals, added NPH back on at dinner last night, continue * Continue higher goal range for patient with hypoglycemia prior to arrival * HD MWF 11/25 * 73 YO M, PMH ESRDHDD, HFpEF, Type 1 DM, CVA, sacral ulcer who presents to the ER with acute on chronic weakness and fatigue. Fluid overload, questionable pneumonia. * Labs acceptable at this time, no anion gap, patient with hypoglycemic episodes on past admissions, difficult to manage, did not take insulin at home this morning. * Will use Lantus for patient tonight if blood glucose rises, as patient is NPO at this time. Further basal dosing for type 1 in AM. PLAN FOR INPATIENT GLYCEMIC CONTROL: * Basal insulin * NPH 8 units SQ BID with meals * Bolus insulin * NovoLog per scale ACHS or Q6hrs while NPO * Goal Range: Low 120 mg/dL - High 150 mg/dL * Correction Factor: 35 mg/dL/unit * Nutritional / Prandial insulin per carb ratio of 1 unit per 10 grams CHO consumed
[2023-11-29 11:02] LABS: Hep B Surface Ag with confirm Negative (Negative)
[2023-11-29 11:11] LABS: Hepatitis B Surface Ab Quant < 3.00 mIU/mL (>or=10mIU/mL Immune); Hepatitis B Surface Antibody Non-Immune
--- NOTE | 2023-11-29 14:17 | Hospitalist Progress Note ---
Date of Service November 29, 2023 Assessment & Plan (1) AMS (altered mental status): Plan: AMS due to metabolic encephalopathy Resolved - ?2/2 hypoxia with volume overload, + Patient reportedly hypoglycemic prior to arrival. (2) Weakness: Plan: Most likely secondary to fluid overload and poor glycemic control Improved. Ambulate as tolerated Hopefully will be able to discharge home tomorrow after dialysis (3) ESRD (end stage renal disease): Plan: ESRD on dialysis Nephrology consulted for dialysis due to evidence of volume overload with pulmonary edema, and prior missed sessions Potassium is normal - HD 11/26/2023 yesterday for 2 liters and again 11/27/2023. Will plan on inpatient hemodialysis with ultrafiltration tomorrow to obtain new dry weight -SOB resolved -Encouraged to ambulate as tolerated -Follow serial labs (4) Type 2 diabetes mellitus: Plan: DM consult in due to history of recurrent episode of hypoglycemia, and reported prehospital hypoglycemia improved by time of arrival BSG daily -Random glucose 11/27/2023 is 168 Goal BSG [id number] Checks AC/at bedtime, DM 2 dialysis diet (5) Thrombocytopathia: Plan: Thrombocytopenia - Since 09/2023. - Remain s >50. On aspirin for TIA and hx CAD. Heparin[?] w HD -Plt count is 82,000 today - Pharmacoppx held, trended. +smear. +SCDs (6) Atypical pneumonia: Plan: Initially concern for potential for atelectasis versus possible superimposed on chest x-ray. No leukocytosis, no fever/chills/sweats. History of prolonged QT. - Doxy added, procalcitonin negative. Discontinue antibiotics. - Incentive spirometry ordered -Patient with no complaints (7) Cardiomyopathy: Plan: CAD With chronically mildly elevated troponin, also with impaired clearance Troponin x 1 trended Troponin 35.3, history of CAD with low-grade troponin leak Prior history of bradycardia EKG on admission sinus with first-degree AV block, bigeminy. Appears similar compared to 11/06/2023 Clinically volume overloaded. --> dialysis as ordered by nephrology Stable issues Depression: Continue home SSRI Chronic pain: Denies pain today. Tramadol as needed, temporarily held for lethargy Insomnia: Continue trazodone/home Ambien as needed when mentation improved. These were temporarily held for lethargy GERD: Continue PPI Glaucoma: Continue home meds DVT prophylaxis: SCDs, heparin deferred while following thrombocytopenia CODE STATUS: Full code Diet: Dialysis, DM Plan Anticipate discharge home with [facility] once stable Admission and Anticipated Discharge Date Admission Date: November 26, 2023 Results & Data Results & Data Vital Signs (Past 12 Hours) Vital Signs Temp Pulse Pulse Pulse Resp BP BP 11/29/23 12:41 54 L 142/59 H 11/29/23 12:00 82 113/92 11/29/23 11:30 72 135/78 11/29/23 11:00 48 L 115/62 11/29/23 10:30 56 L 125/71 11/29/23 10:00 61 127/68 11/29/23 09:51 88 116/63 11/29/23 09:46 36.4 C L 58 L 11/29/23 07:59 36.3 C L 64 19 167/60 H 11/29/23 07:30 11/29/23 03:00 36.4 C L 62 21 143/63 H Pulse Ox O2 Del Method 11/29/23 12:41 11/29/23 12:00 11/29/23 11:30 11/29/23 11:00 11/29/23 10:30 11/29/23 10:00 11/29/23 09:51 11/29/23 09:46 11/29/23 07:59 92 Room Air 11/29/23 07:30 Room Air 11/29/23 03:00 90 Room Air PG Care Time/CCT Total # of Minutes Spent Total Time Spent with Patient: Total time spent is greater than 50% in coordination of care (as documented) at patient's floor/unit and/or counseling patient: Coding Diagnoses AMS (altered mental status) R41.82 Altered mental status type: unspecified Weakness R53.1 ESRD (end stage renal disease) N18.6 Type 2 diabetes mellitus E11.9 Thrombocytopathia D69.1 Atypical pneumonia J18.9 Cardiomyopathy, unspecified type I42.9 Cardiomyopathy type: unspecified (1) AMS (altered mental status) Altered mental status type: unspecified Qualified Code(s): R41.82 - Altered mental status, unspecified (7) Cardiomyopathy Cardiomyopathy type: unspecified Qualified Code(s): I42.9 - Cardiomyopathy, unspecified
[2023-11-29 14:21] VITALS: PULSE 57
[2023-11-29 15:38] VITALS: BP 132/64; TEMP 97.7
--- NOTE | 2023-11-29 17:31 | Discharge Summary ---
Discharge Summary Date of Service November 29, 2023 Principal Dx & Hospital Course #1 = Principal Diagnosis (1) AMS (altered mental status): Patient originally presented to the ED on 11/25 for acute on chronic weakness with fatigue. This was due to metabolic encephalopathy and has since resolved. (2) Weakness: see plan above (3) ESRD (end stage renal disease): Nephrology followed along and patient had volume overload with pulmonary edema and prior missed sessions. Electrolytes were stable. HD completed 11/25, 11/26, and 11/28 with ultrafiltration. SOB resolved. Follow up outpatient with primary overhead garage door hanger for continued care (4) Type 2 diabetes mellitus: History of hypoglycemia. Follow up outpatient with PCP. Resume outpatient medications. (5) Thrombocytopathia: Platelet count 84,000 on day of discharge.Okay to continue aspirin. Follow up outpatient with PCP for continued care (6) Atypical pneumonia: Initial concern for potential atelectasis vs possible superimposed on CXR. no leukocytosis, fever, chills, or sweats. Procalcitonin was negative. Was on doxycycline but discontinued. Incentive spirometry was used. Patient denied any respiratory complaints. Plan Depression: Continue home SSRI Chronic pain: Denies pain today. Tramadol as needed, temporarily held for lethargy Insomnia: Continue trazodone/home Ambien as needed when mentation improved. These were temporarily held for lethargy GERD: Continue PPI Glaucoma: Continue home meds Admission HPI Per Admitting Provider Dayton is a 73-year-old male past med history of ESRDHDD, HFpEF, DM2, CVA, sacral ulcer who presents to the ER with acute on chronic weakness and fatigue. Assessment denies dyspnea UTI symptoms, chest pain. Per ER signout/review: He presents with progressive dyspnea, fatigue, lethargy. Chest x-ray: Cardiomegaly, increased pulmonary edema with bilateral pleural effusions. Bibasilar opacities suspicious for atelectasis versus superimposed pneumonia No leukocytosis Procalcitonin pending VBG 7.29/48/23 consistent with mixed metabolic/respiratory acidosis Creatinine is elevated, patient is ESRD dialysis dependent. BUN 62 Anion gap borderline at 11 Lactate is not elevated, 1.5 High sensitive troponin with chronic mild elevation and impaired clearance, 35.3 on admission Normotensive, bradycardic, on 2 L of oxygen at time of admission consultation Fluids deferred due to obvious volume overload missed dialysis Per Pt: Seen at the bedside. Hard to fall asleep, and then very tired in the morning. Cannot sleep laying flat due to dyspnea, sleeps sitting up Denies fevers Denies chest pain 'Just no energy.' Denies cough Did not take insulin this morning Has been eatin gnormally, no lucero ein diet No diarrhea or constipation Reports hemissed a dialysis session on Wednesday, but made his Wednesday session. Reports 'I feel real good, a lot better after dialysis.' Was schedule for HD today Still makes a small amount of urine. Denies dysuria, hematuria, polyuria Takes tramadol for pain, didnt take any other pain meds Took no medications this morning Feels strength is gradually worsneing this week Medical History: Reviewed Medications: Reviewed Surgical History: Reviewed Family history: Reviewed Allergies: Reviewed Social History: REviewed Code Status: Full Discharge Exam Constitutional WD/WN, vitals as above Eyes PERRL, conjunctivae normal, anicteric sclerae Respiratory normal respiratory effort, lungs clear to auscultation Cardiovascular RRR, no murmur, no edema Psychiatric A+Ox3, euthymic affect Discharge Plan Discharge Items Patient Disposition: Home - Home Health Services Reason For Visit: VOLUME OVERLOAD Discharge Diagnosis: ESRD, metabolic encephalopathy Activity: Resume your previous activity Non-emergency contact: Primary Care Provider and Social Group Worker Call non-emergency contact if: you have any medication questions and your symptoms worsen Follow-up/Referrals: Leah Wolf DO [Primary Care Provider] - 12/22/23 9:20 am (Hospital follow up scheduled at 9:20 with Leah Wolf. Pt also added to cancellation list for a sooner appointment. ) Diet: Carb Consistent or DM2 and Dialysis Renal Fluids: 1200ml (5 cups) Addtl Attending Provider Instructions: Mr. Em, You were recently hospitalized for weakness and confusion. You were found to have an overload of fluid which was removed with dialysis. Please see recommendations below regarding your discharge. 1. Please continue your outpatient dialysis sessions as scheduled. 2. Please follow up with your overhead garage door hanger. 3. Please resume outpatient medications as previously prescribed. If you develop any shortness of breath, chest pain, fevers, chills please report to the ER for further evaluation. Sincerely, Sachi Chow PA-C Pending Studies at Discharge: No Stand-Alone Forms: My [facility], Smoking Cessation Medications and DC Order Prescriptions: Continued cyanocobalamin (vitamin B-12) 500 mcg tablet 1,000 mcg PO QAM Qty: 180 3RF cholecalciferol (vitamin D3) [Vitamin D3] 50 mcg (2,000 unit) capsule 2,000 unit PO QAM Qty: 90 3RF ascorbic acid (vitamin C) 500 mg capsule 500 mg PO QAM Qty: 90 1RF trazodone 100 mg tablet 100 mg PO HS Qty: 90 0RF isosorbide mononitrate 30 mg tablet extended release 24 hr 30 mg PO QAM 90 Days Qty: 90 3RF aspirin 81 mg tablet,delayed release (DR/EC) 81 mg PO QAM Qty: 90 3RF atorvastatin [Lipitor] 80 mg tablet 80 mg PO DAILY Qty: 90 3RF bumetanide 1 mg tablet 1 mg PO BID Qty: 180 3RF hydralazine 25 mg tablet 75 mg PO TID 90 Days Qty: 810 3RF ondansetron 4 mg tablet,disintegrating 4 mg PO Q8H PRN (Reason: nausea and vomiting) Qty: 90 3RF sertraline 50 mg tablet 50 mg PO DAILY Qty: 90 3RF Humulin R Regular U-100 Insuln 100 unit/mL solution 1 sliding scale dose subcut USEASDIRECTD Qty: 10 3RF Rx Instructions: 11AM polyethylene glycol 3350 [Miralax] 17 gram powder in packet 17 g PO BID PRN (Reason: Constipation) docusate sodium 100 mg capsule 100 mg PO BID PRN (Reason: Constipation) latanoprost [Xalatan] 0.005 % Drops 1 drp OPB HS brimonidine 0.2 % drops 1 drp OPB BID Rx Instructions: BOTH EYES timolol maleate 0.5 % gel forming solution 1 drp OPB BID dorzolamide 2 % drops 1 drp OPB BID calcitriol 0.5 mcg capsule 1 mcg PO QAM Qty: 60 0RF zolpidem 5 mg Tablet 5 mg PO HS PRN (Reason: insomnia) Qty: 10 0RF pantoprazole 40 mg Tablet,Delayed Release (Dr/Ec) 40 mg PO QAM Qty: 30 0RF tramadol 50 mg tablet 50 mg PO DAILY PRN (Reason: pain) Qty: 30 0RF Humulin N NPH U-100 Insulin 100 unit/mL suspension 10 unit subcut BIDM Qty: 10 3RF metoprolol succinate 25 mg tablet extended release 24 hr 25 mg PO BID Qty: 60 0RF ropinirole 1 mg tablet 1 mg PO UD Rx Instructions: orally ;1 in morning, 1 mid day, 3 in the evening orally at bedtime; Discharge Orders: Discharge Order (Routine); Ordered 11/29/23 Ordered By: Sachi Chow Admission Data Admit Date/Time: 11/26/23 12:11 Attending Provider: Mono Rascon Admit Provider: Keron Caputo Primary Care Provider: Leah Wolf Other Providers: Shakira Richardson; Keron Caputo Other Interventions: Discharge Summary Assessment (RN) Last Done: 11/29/23 16:06 Hospital Stay Data Consultations 11/26/23 11:47 ED Decision to Admit Stat 11/26/23 12:13 Consult Nephrology Routine Pending Results Patient Have Any Pending Studies at Discharge: No Discharge Instructions Given to Patient (Per Discharging Provider) Mr. Em, You were recently hospitalized for weakness and confusion. You were found to have an overload of fluid which was removed with dialysis. Please see recommendations below regarding your discharge. 1. Please continue your outpatient dialysis sessions as scheduled. 2. Please follow up with your overhead garage door hanger. 3. Please resume outpatient medications as previously prescribed. If you develop any shortness of breath, chest pain, fevers, chills please report to the ER for further evaluation. Sincerely, Sachi Chow PA-C Total Time Total Time Spent Total Time Spent (In Minutes): 45 Total Time Includes: Examination of the Patient, Discharge Planning, Medication Reconciliation and Communication With Other Providers Coding Level of Care Code 11758 INP/OBS DISCH >30 MIN Diagnoses AMS (altered mental status) R41.82 Altered mental status type: unspecified Weakness R53.1 ESRD (end stage renal disease) N18.6 Type 2 diabetes mellitus E11.9 Thrombocytopathia D69.1 Atypical pneumonia J18.9
== END 2023-11-29 16:38 | disposition home health service (06) | DRG 640 ==
LOC: ED 10:15 → EDINP 12:11 → SUATTDRO 12:11 → EDINP 14:51 → 4W 17:11